=== PATIENT | female | born 1945 | race Caucasian/White ===

== ENCOUNTER 2017-10-28 00:08 | Outpatient (CLI) | payer MEDICARE, SELFPAY ==
--- NOTE | 2017-10-28 09:25 | DI.REPORT_ITS ---
SYMPTOM/DIAGNOSIS: RT KNEE INJURY S89.91XD, CHRONIC KNEE PAIN M25.561, G89.29 MRI RIGHT KNEE: Routine noncontrast examination Comparison 10/03/17. The anterior cruciate and posterior cruciate ligaments are intact. The medial collateral ligament is intact. The lateral collateral ligament shows mild increased signal internally and some edema seen surrounding the ligament. This may represent a sprain. No evidence of a maura tear is appreciated. The medial and lateral retinaculum are intact. There is increased signal seen in the popliteus tendon suspicious for a partial tear or tendinosis. The extensor mechanism is intact. No definite meniscal tear is appreciated. There is loss of the articular cartilage in the medial femoral tibial joint space and patella femoral joint particularly laterally. There are osteophytes present in all three joint compartments. There is osteochondral defect seen in the medial femoral condyle and osteochondral fragment is seen within the defect. There is marked edema seen in the marrow in the medial femoral condyle. There is marrow edema seen in both medial and lateral tibial plateau. There is a joint effusion present. There is edema seen in the soft tissues about the knee. IMPRESSION: 1. Osteochondral injury involving the medial femoral condyle. 2. Partial tear or tendinosis involving the popliteus tendon 3. Lateral collateral ligament sprain 4. Osteoarthritis of the right knee, small joint effusion, soft tissue edema.
== END 2017-10-28 00:09 ==
PROVIDERS: PCP Internal Medicine; Visit Provider Student in an Organized Health Care Education/Training Program
DX: M25.561 Pain in right knee (principal); M95.8 Other specified acquired deformities of musculoskeletal system; M76.891 Other specified enthesopathies of right lower limb, excluding foot; S83.421D Sprain of lateral collateral ligament of right knee, subsequent encounter; M17.11 Unilateral primary osteoarthritis, right knee; M25.461 Effusion, right knee; S89.91XD Unspecified injury of right lower leg, subsequent encounter
CPT/HCPCS: 73721

== ENCOUNTER 2017-11-07 01:40 | Outpatient (CLI) | payer MEDICARE, SELFPAY ==
--- NOTE | 2017-11-07 13:00 | DI.RPTCT_ITS ---
SYMPTOMS/DIAGNOSIS: PULMONARY NODULE LLL, R91.[address]: Comparison is made with PE CT dated . That exam showed a 5 mm nodule in the left lower lobe. A noncontrast exam was performed. There has been no change in size or appearance of the previously noted 5 mm circumscribed nodule at the left lower lung base. No additional nodules are identified. There are no acute infiltrates or effusions. CT follow up in one year could be considered.
== END 2017-11-07 01:41 ==
PROVIDERS: PCP Internal Medicine; Visit Provider Internal Medicine
DX: R91.1 Solitary pulmonary nodule (principal)
CPT/HCPCS: 71250

== ENCOUNTER 2017-11-10 01:09 | Outpatient (CLI) | payer MEDICARE, SELFPAY ==
--- NOTE | 2017-11-10 13:32 | DI.REPORT_ITS ---
SYMPTOMS/DIAGNOSIS: LOCALIZED SWELLING LT LOWER LEG, R22.42 DUPLEX VENOUS ULTRASOUND LEFT LOWER EXTREMITY: Duplex evaluation of the deep venous system of the left lower extremity was performed according to the usual protocol. There is no evidence of deep venous thrombosis. The patient reportedly has a questionable palpable area of abnormality in the left medial lower leg. No mass identified at this site. No fluid collection seen.
== END 2017-11-10 01:10 ==
PROVIDERS: PCP Internal Medicine; Visit Provider Nurse Practitioner
DX: R60.0 Localized edema (principal); R22.42 Localized swelling, mass and lump, left lower limb
CPT/HCPCS: 93971

== ENCOUNTER 2017-11-23 12:00 | Outpatient (RCR) | payer MEDICARE, SELFPAY ==
--- NOTE | 2017-11-16 13:00 | IE_ITS ---
Date: November 16, 2017 Referring: Saranya Dias NP M.D. Diagnosis: P.T. Diagnosis: SUBJECTIVE: History of Present Illness: Gianna complains of L sided neck pain. This has been slowly progressing over the past 6 months with more exacerbated symptoms over the past 2 weeks. About 2 weeks ago she was driving and quickly turned her head to the L and felt a sharp electric pain all the way to the base of her L OA joint. She does note that she has been holding herself quite stiff as of recent, she is walking very guarded due to extensive L knee OA. She has an upcoming TKR in December with Dr. Pastor. She does recall neck pain in 2014 which was successfully treated with physical therapy in [place], [place] after a fall hitting the L side of her head in 2012. Pain Ratin/10, exacerbates to a 4/10 with daily activities, 9/10 with quick upward rotation Pain Location: L side of her OA joint, into the L upper trap. Prior Level of Function: WNL Current Level of Function: Difficulty driving, particularly with rotating her head L to see if someone is coming or backing up to the L,. Always has low grade discomfort with all other activities, compared to premorbid level of function which was without discomfort. Previous Treatment: None for most recent exacerbation. Social: She is retired. She has been living in [place] for 4 years after living in [place], [place] and [place], [place]. She has 3 grown children that live in all different areas of the nation. Comorbidities: Arthritis, particularly R knee with upcoming TKA, cardiac arrhythmias only with too much caffeine intake and osteoporosis, varicose veins , stripping of both legs in 1978. Falls in the last year: __x__ No ____Yes - How many? ____ - (if over 2, balance SM needs to be completed) Reported hospitalizations in the last year - __x__ No ____ Yes - Dates of admission/reason: Medications: Fosamax, multi vitamin, fish oil, Aleve for pain, Epi Pen for Bee venom, currently on Amoxicillin for a tooth abscess. Quality of Life: ____ Excellent __X__ Good ____ Fair ____ Poor Standardized Measures: NDI score: __22% disability OBJECTIVE: Posture: Is actually quite good for a woman her age. She is very tall, but demonstrates no forward head or thoracic kyphosis. Does have a questionable underlying scoliotic curvature. She has a mild L shift of her thoracic spine compared to her central lumbar spine, but no obvious curvature. This allows for mild protrusion of R shoulder blade compared to the L, but symmetrical placement on the thorax in regards to rotation. Observation: (behavior, atrophy, skin color, etc.) Cautious with movements of the neck, but otherwise fairly unremarkable. She does have some visual tension in the L upper trap compared to the R. Gait: WNL, toe and heel walk WNL. Palpation: Tension appreciated throughout the entire length of the L upper trap and L OA joint compared to the R. Edema: None. ROM: Bilateral UE's are WNL and non-irritable. C-spine flexion/extension are both 45 degrees and non-irritable. L rotation 30 degrees, R rotation 45 degrees. R sidebend 20 degrees, L sidebend 30 degrees all reproducing some L upper trap discomfort and mild discomfort through the L OA joint. Joint Accessory Motion: Moderately limited with all articular sidegliding through the C-spine. With L sideglide this produces some discomfort from C3-C5 and down into L upper trap. No UE paresthesias. PAs are moderately limited as well, but without discomfort. OA joint surprisingly moves very well for a woman her age with full flexion to about 10 degrees. Excellent retraction mobility without pain. Strength: Grossly 5/5 throughout bilateral UE's without pain provocation. C- spine isometrics are also 5/5 all planes without pain, and good cervical stability with scap, thoracic stability throughout. Neuro: UE screen WNL. Balance: Single leg stance for 10 seconds bilaterally, narrow base of support, eyes closed WNL. Special Tests: (-) Spurling's, (-) vertebral artery testing. Treatment: IE: [id number] Patient Education: In proper posture without functional movement patterns, particularly when stationary cycling or long distance walking maintain deep neck flexion activation standing tall with helium balloon idea. KX applied to all codes ____ Yes __X__ No Manual therapy: (63756r5). To the c-spine complete manual cervical traction and unilateral traction, cervical facet up gliding with grade 4++, complete articular sidegliding for all cervical segments of a grade 4++ with focus on L sideglide to influence or inhibit the L upper trap. Posterior and lateral telescoping L upper trap, deep trigger point release and down regulation efforts as well as thoracic and cervical spine release, with OA release, and cross friction efforts; and general fascial mobilization throughout the base of the skull. Direct treatment time: 60 mins Total treatment time: 60 mins ASSESSMENT: Patient is a 72-year-old female, referred for PT services with the diagnosis of neck pain. Patient presents with clinical signs and symptoms consistent with L upper trap soft tissue dysfunction, occipital soft tissue dysfunction likely related to some underlying c-spine degeneration with history of trauma, as demonstrated by the following impairment level findings: limited c-spine mobility, accessory mobility limitations, soft tissue dysfunction. Impairments are contributing to the following functional limitations:Pain with driving, rotating her head, low grade discomfort with all activities which was non-existent prior to start of condition. Patient is assessed as: __X__ Low 76557 ____ Moderate 51738 ____ High 86126 complexity, based on the following: History: (list): X See comorbidities and social history. Examination: (list): X See above for functional limitations and impairments. Presentation: X Stable . Evolving Unstable Decision-Making: X Low complexity Moderate complexity High complexity % Disability based on 22% __X__ Patient requires skilled PT intervention to remediate the above functional limitations to return to: __X__ Premorbid level of function __X__ Return to full functional mobility Prognosis: ____ Excellent __X__ Good ____ Fair ____ Poor G-Codes (fill in modifier after appropriate code): Patient's primary functional limitation is in the category of: __X__ Changing and maintaining body position: [id number] based on NDI Projected goal: __x__ Changing and maintaining body position: [id number] STG: __4__ weeks. 1: NDI decreased to a 20% disability. 2: Pain does not exceed a 3/10 with rotation of neck particularly with driving or backing up. 3: When at rest, 0/10 pain. LTG: __8__ weeks. 1: Return to premorbid level of function. 2: Return to full, pain-free, functional mobility. 3: Independent with self-maintenance program. PLAN: Patient to be seen 2 x per week, for 8 weeks, adjusting frequency of visits per patient symptoms and response to treatment. Treatment to include: Manual therapy - [id number]: for thoracic and cervical articular mobilization , OA mobilization surrounding soft tissue manipulation. Neuromuscular re-education for deep neck flexor activation instability. Thank you for this referral. Please do not hesitate to contact me with any questions or concerns regarding this patient's plan of care. *Saranya, please sign this evaluation if you are in agreement with the above plan of care and return to PT cc: Saranya Dias NP
--- NOTE | 2017-11-21 15:55 | PTTR_ITS ---
DATE: 11/21/17 SUBJECTIVE: Pt notes feeling slightly better since last session. She finds herself holding her neck very stiff to be cautious and not have pain when turning to the left. OBJECTIVE: Manual therapy: (28604x1). In supine apply unloading of her cervical spine via light traction. PROM into side bend and rotation bilaterally. Apply manual upper trap and scalene stretching bilaterally. She receives upper cervical retraction stretching. Perform extensive soft tissue mobilization techniques to the left upper trap, scalenes, cervical paraspinals and suboccipitals. Trigger point release to upper cervical paraspinals and into the muscle belly of the upper trap. Perform OA release. Ends with moist hot pack x 10 minutes to the cervical spine. Post treatment pt notes improvements in her symptoms. Direct treatment time: 30 minutes Total treatment time: 40 minutes Randi Schreiber PTA
--- NOTE | 2017-11-23 13:29 | PTTR_ITS ---
DATE: 11/23/17 SUBJECTIVE: Has experienced pain relief with treatment so far, with dissipating L neck pain. Realized today that she always carries her heavy pure over her R upper trap, which may be contributing. OBJECTIVE: KX applied to all codes N/A Manual therapy: ([id number]). Unload C-Spine via manual traction, facet upgliding. OA flexion oscillations, with good motion appreciated. OA release C-Spine rotation mobilizations, B, achieving 70* L, 50* R with resulting R Upper trap pain bilaterally. MET;s utilized throughout. UPA all cervical segments, grade 4-- STM B cervical and thoracic paraspinals, focus of L upper trap, OA region, and nucal line fascial mobilization. TPR L upper trap. Cervical articular sidelying, grade 4--, mid cervical flexion stretching iwth end range rotation. Patient Education: Instructed in self tennis ball OA release, L upper trap stretching. Direct treatment time: 30 minutes Total treatment time: 30 minutes
== END 2017-11-25 23:59 | disposition home or self-care (01) ==
LOC: PT 12:00
PROVIDERS: PCP Internal Medicine; Referring Provider Nurse Practitioner; Visit Provider Nurse Practitioner
DX: M54.2 Cervicalgia (principal); M79.89 Other specified soft tissue disorders; M47.812 Spondylosis without myelopathy or radiculopathy, cervical region; M53.3 Sacrococcygeal disorders, not elsewhere classified; M17.11 Unilateral primary osteoarthritis, right knee
CPT/HCPCS: 97140; 97161

== ENCOUNTER 2017-12-02 15:21 | Outpatient (REF) | payer MEDICARE, SELFPAY | END 2017-12-02 15:41 | LOC: NCHCN 15:21 | PROVIDERS: PCP Internal Medicine; Visit Provider Nurse Practitioner | DX: M79.9 Soft tissue disorder, unspecified (principal) | CPT/HCPCS: 82565 ==

== ENCOUNTER 2017-12-07 02:49 | Outpatient (CLI) | payer MEDICARE, SELFPAY ==
[2017-12-07] MEDS: Gadoterate meglumine 20 ML VIAL 13 ML IVP (14:23)
--- NOTE | 2017-12-07 14:50 | DI.MRI_ITS ---
SYMPTOM/DIAGNOSIS: SOFT TISSUE MASS, M79.9, SWELLING, TENDERNESS LEFT LOWER LEG MRI: Pre and post contrast. A marker was placed over the area of concern. There is no evidence of an underlying mass or enhancing lesion. No focal fluid collection is seen to suggest an abscess. There is mild fatty atrophy of the medial head of the gastrocnemius muscle. IMPRESSION: No evidence of a soft tissue mass or focal fluid collection to suggest an abscess. Mild fatty atrophy of the medial head of the gastrocnemius muscle.
== END 2017-12-07 03:09 ==
PROVIDERS: PCP Internal Medicine; Visit Provider Internal Medicine
DX: R22.42 Localized swelling, mass and lump, left lower limb (principal); M79.89 Other specified soft tissue disorders
CPT/HCPCS: 73720

== ENCOUNTER 2018-01-02 09:23 | Outpatient (CLI) | payer MEDICARE, SELFPAY ==
--- NOTE | 2018-01-02 08:13 | DI.RAD_ITS ---
SYMPTOM/DIAGNOSIS: PRE TKA, EVALUATE [facility] AXIS LEG LENGTH EXAMINATION: Mild degenerative changes are seen at the hips bilaterally. In the knees, there are moderate degenerative changes seen in the right knee with medial compartment joint space narrowing and spurring. There is a declivity involving the medial femoral condyle which may represent an osteochondral defect. Mild nataly-articular spurring is seen in the lateral femoral tibial joint. In the left knee, there is mild nataly-articular spurring in both the medial and lateral femoral tibial joint space. The ankles appear intact. There are again seen soft tissue calcifications in the left suprapatellar region. This is unchanged compared to the examination from 08/11/17. The right lower extremity measures 96.3 cm. in length, the left lower extremity measures 95.6 cm. IMPRESSION: Osteoarthritis of the knees, right greater than left.
--- NOTE | 2018-01-02 20:24 | HPE_ITS ---
Documented by User: PATTIE Campo 01/02/18 20:24 Date of service: 01/02/18 Assessment and Plan (1) Osteoarthritis of right knee: Current visit: Yes Status: Chronic Plan: Right total knee replacement Details of surgery as well as risks, and pertinent anatomy were discussed with patient. All questions were answered. History of Present Illness Chief Complaint: Right knee pain Narrative: Patient states that she has been complaining of right knee pain for multiple years now, however she had an exasperation of this knee pain a few months ago when she had an injury. She states that while she was walking her dog she was pulled in the direction, resulting in a twisting injury to her right knee. Since then she has been having pain especially with walking up and down stairs, and long periods of weightbearing. She also states she has issues squatting and kneeling. X-rays of the office did show some arthritic changes in the medial compartment, as well as patellofemoral compartment of her knee. At the same visit she was aspirated of joint fluid, and injected with Marcaine and steroids. This injection did not help her symptoms. She later went for an MRI which showed some bony edema both the medial and lateral compartments, as well as cartilage degeneration in all 3 compartments of her knee. At this point since conservative treatment has failed, she is ready to move forward with a total knee replacement. Pertinent Surgical Information Patient denies history of hypertension, CVA, HI, angina, asthma, COPD, renal or liver disorders, hepatitis, bleeding disorders, diabetes, immune or thyroid disorders. No complications from anesthesia. Review of Systems Review of Systems All systems reviewed & are unremarkable except as noted in HPI and below Constitutional Denies fever(s) ENT Denies dizziness and Denies sore throat Cardiovascular Denies chest pain, Denies palpitations and Denies dyspnea Respiratory Denies dyspnea Gastrointestinal Denies abdominal pain, Denies melena, Denies hematochezia, Denies diarrhea, Denies nausea and Denies vomiting Genitourinary Denies hematuria and Denies dysuria Neurologic Denies dizziness Endocrine Denies palpitations PFSH Medical History Anxiety Dysphagia Neck pain Neuropathy Osteoarthritis Osteoporosis Piriformis syndrome Piriformis syndrome of left side Social History Smoking/Tobacco Use Status: Never alcohol intake: current alcohol intake frequency: 0-2 drinks per day Alcohol type: wine details: drinks one glass of wine nightly Surgical History H/O vein stripping (Chronic) History of tonsillectomy and adenoidectomy (Chronic) Meds Home Medications Medication Instructions Recorded Confirmed Type calcium carbonate-vitamin D3 2 tab PO DAILY 03/26/14 01/02/18 History multivitamin [Multi-Day] 1 tab PO Q2D 03/26/14 01/02/18 History omega-3 fatty acids [Fish Oil] 1,200 mg PO DAILY 03/26/14 01/02/18 History ibuprofen 400 mg PO PRN PRN 05/21/14 01/02/18 History alendronate 70 mg PO Q7D@0700 02/03/17 01/02/18 History vitamin B complex [B Complex] 1 ea PO EOD 08/11/17 01/02/18 History aspirin 81 mg PO DAILY tab-cap 08/24/17 01/02/18 History melatonin 4.5 mg PO HS 08/24/17 01/02/18 History epinephrine [Epipen 2-Derrick] 0.3 mg IM ONCE NS 10/25/17 01/02/18 History Allergies Allergy/AdvReac Type Severity Reaction Status Date / Time venom-honey bee Allergy Severe Anaphylaxsi Unverified 01/02/18 09:03 [bee venom (honey bee)] s fluoxetine [From Prozac] AdvReac Intermediate paranoid Verified 01/02/18 10:25 hormone replacement therapy AdvReac Intermediate paranoid Uncoded 01/02/18 10:25 Exam [facility] Head: normocephalic and atraumatic General nose exam: no nasal discharge Throat: uvula midline and no uvular edema Other: soft palate rises symmetrically, no erythema Eyes Conjunctivae: conjunctivae normal Sclera: sclerae normal Pupils: PERRL Resp Effort & Inspection: normal respiratory effort Auscultation: clear to auscultation bilaterally and no wheezes Cardio Rate: regular rate Rhythm: regular rhythm Heart Sounds: S1 normal, S2 normal and no murmurs
== END 2018-01-02 09:43 ==
PROVIDERS: PCP Internal Medicine; Visit Provider Student in an Organized Health Care Education/Training Program
DX: M17.0 Bilateral primary osteoarthritis of knee (principal); M16.0 Bilateral primary osteoarthritis of hip
CPT/HCPCS: 36415; 80048; 85027; NC; 77073

== ENCOUNTER 2018-01-02 10:02 | Outpatient (CLI) | payer MEDICARE, SELFPAY ==
[2018-01-02 12:23] LABS: HCT 43.6 % (36.0-46.0); HGB 14.6 g/dL (12.0-15.5); Mean Corp. HGB Concentration 33.5 g/dL (32.0-36.0); Mean Corpuscular Hemoglobin 31.6 pg (27.0-33.0); Mean Corpuscular Volume 94.4 fL (80-95); Mean Platelet Volume 9.4 fL (8.0-11.0); Platelet Count 273 x1000/uL (130-400); RBC 4.62 m/cumm (4.00-5.20); RBC Distribution Width 13.3 % (11.7-14.6); White Blood Cell Count 4.65 k/cumm (4.4-10.8)
[2018-01-02 13:17] LABS: Anion Gap 7.9 mmol/L (3-11); BUN 14 mg/dL (7-18); CO2 29.1 mmol/L (21.0-32.0); CREATININE 0.55 mg/dL (0.55-1.02); Calcium 9.1 mg/dL (8.5-10.1); Chloride 104 mmol/L (98-107); Glucose 92 mg/dL (70-100); Potassium 4.1 mmol/L (3.5-5.1); Sodium 141 mmol/L (136-145)
== END 2018-01-02 10:22 ==
PROVIDERS: PCP Internal Medicine; Visit Provider Student in an Organized Health Care Education/Training Program
DX: M25.561 Pain in right knee (principal); M17.11 Unilateral primary osteoarthritis, right knee; Z01.818 Encounter for other preprocedural examination
CPT/HCPCS: 36415; 80048; 85027

== ENCOUNTER 2018-01-10 05:56 | Inpatient (IN) | payer MEDICARE, SELFPAY ==
--- NOTE | 2018-01-02 15:26 | PDOC.CMPRO ---
- If Service Date Differs Date of service: 01/02/18 Time of Service: 15:26 Care Management Progress Note CM met with Gianna preoperative in [facility]. Her planned surgery is 01/10/18 for right total knee. Gianna lives alone in [place], [place]. She has five stairs to get into her home. Her daughter is coming to [place] to be with her and her family and will support her for two weeks when she returns home from the hospital. CM completed advance directives with patient and faxed them to registry and primary care provider. Gianna was provided with 4 copies. Gianna has a FWW at home, shower bench, rails and commode. She would like home health PT and OT at time of discharge. She will be transported home via private car with her daughter at time of discharge.
--- NOTE | 2018-01-02 16:12 | CMPROGNOTE_ITS ---
- If Service Date Differs Date of service: 01/02/18 Time of Service: 15:26 Care Management Progress Note CM met with Gianna preoperative in [facility]. Her planned surgery is 01/10/18 for right total knee. Gianna lives alone in [place], [place]. She has five stairs to get into her home. Her daughter is coming to [place] to be with her and her family and will support her for two weeks when she returns home from the hospital. CM completed advance directives with patient and faxed them to registry and primary care provider. Gianna was provided with 4 copies. Gianna has a FWW at home, shower bench, rails and commode. She would like home health PT and OT at time of discharge. She will be transported home via private car with her daughter at time of discharge.
[2018-01-10] VITALS (18 sets, daily range): BP systolic 104–139; BP diastolic 59–83; PULSE 52–73; RESP 12–24; TEMP 34.1–36.6; O2SAT 92–100
[2018-01-10] MEDS: Acetaminophen 500 MG TAB 1000 MG PO ×3 (06:33→20:15)
[2018-01-10] MEDS: Celecoxib 200 MG CAP 400 MG PO (06:33)
[2018-01-10] MEDS: Gabapentin 300 MG CAP PO ×2 (06:34→21:05)
[2018-01-10] MEDS: oxyCODONE-CR 10 MG TABCR PO (06:35)
[2018-01-10] MEDS: Lactated Ringers 1,000 ML 80 ML IV ×3 (06:36→17:16)
[2018-01-10] MEDS: Bupivacaine 0.25% Pres-Free 10 ML VIAL (07:10)
[2018-01-10] MEDS: Bupivacaine LIPOSOME/PF 133 MG/10 ML VIAL IJ ×2 (07:10→08:55)
[2018-01-10] MEDS: Ketorolac 30 MG/ML VIAL (08:32)
[2018-01-10] MEDS: Bupivacaine 0.25% Pres-Free 30 ML VIAL (08:55)
[2018-01-10] MEDS: Normal Saline 50 ML (08:55)
[2018-01-10] MEDS: Ondansetron 4 MG/2 ML VIAL IVP (11:16)
[2018-01-10] MEDS: Pantoprazole 40 MG TABCR PO (11:19)
[2018-01-10] MEDS: Normal Saline Flush 10 ML SYR IV (11:30)
--- NOTE | 2018-01-10 14:30 | PT.INIE ---
Date of service: 01/10/18 Time of Service: 14:27 PT Notes Inpatient Physical Therapy Evaluation Date: 01/10/18 Referring Doctor: Bassem Pastor PT Orders: PT CONSULT: s/ R TKA Precautions: WBAT R LE Patient Profile/Admitting Diagnosis: Pt is a 72yr old female s/p right total knee arthroplasty by Dr. Davis 01/10/18 PMHX: osteoarthritis right knee, anxiety, neck pain, neuropathy, osteoporosis, piriformis syndrome left, dysphagia, vein stripping, tonsillectomy, adenoidectomy Social History/Home Situation: Lives alone in a house, 5 steps with railing to enter, one level inside. Baseline mobility independent gait with no device, independent with ADLS. Daughter and son will be staying with patient two weeks after discharge so she will have support in home, pt would like home PT/OT follow up at discharge as well. Equipment Owned/DME: FWW, axillary crutches, walking sticks, commode, shower chair Subjective: Pt lying in bed, alert and agreeable to PT consult, states she would like to get up. Objective: General Observation: IV L UE, singh catheter, mark wrap R knee, cryocuff right knee Mental Status: A& O x3 Pain: no c/o pain Bed Mobility/Transfers: Supine-sit: HOB 30 degrees, independent Sit-stand: SBA with FWW Stand-sit: SBA Sit-supine: HOB flat, independent Gait: SBA with FWW 40ftx2 WBAT R LE, slow step through gait pattern, instruction provided for step sequence. Pt returned to bed after session completed. Therex: Pt has issued home exercise program, initiated ankle pumps x 20 reps this session. Balance: Static Sitting: normal Dynamic Sitting: normal Static Standing: fair Dynamic Standing: fair Special Tests: Mobility Limitations Standardized Measure [facility] AM-PAC 6 clicks Basic Mobility Inpatient Short Form: Raw Score: 18 Standardized Score: 43.63 CMS Score: 46.58% CMS Modifier: CK Informed Consent/Education: Patient instructed in purpose of PT consult and plan of care. Assessment: Pt is a 72yr old female s/p right total knee arthroplasty by Dr. Davis 01/10/18 in setting of osteoarthritis right knee, anxiety, neck pain, neuropathy, osteoporosis, piriformis syndrome left. Patient presents with clinical signs and symptoms consistent with post op R TKA, as demonstrated by the following impairment level findings: weakness right quad, decreased ROM right knee, decreased strength with bed transfers, standing transfers and gait requiring FWW for gait stability to prevent falls post operatively, decreased static and dynamic standing balance. Pt was able to initiate therex, transfers and gait with FWW this afternoon, will continue progression of post operative rehab in am. Nursing can mobilize to chair and bathroom this evening with FWW support. Impairments are contributing to the following functional limitations: AMPAC score CMS Score: 46.58% Patient is assessed as Moderate 56254 complexity based on the following: History: see above Examination: see above Presentation: evolving Decision Making: AMPAC score CMS Score: 46.58% Goals: Goals X1 week 1. Supine-Sit : independent 2. Sit-Supine : independent 3. Sit-Stand : independent with FWW 4. Stand-Sit : independent 5. Bed-Chair : supervision with FWW 6. Chair-Bed : supervision with FWW 7. Gait : supervision with FWW 200ft WBAT R LE 8. Stairs : up/down 5 steps with railing WBAT R LE, SBA 9. Independent with home exercise program for TKA Plan of Care/Treatment Plan: 1-2x/day, 7 days/week x 1 week. Plan of care has been reviewed with the [employer] providing the service under Physical Therapy direction. Initiate Physical Therapy intervention for strengthening, bed mobility, transfers, gait, stairs, balance training, use of assistive device. DISCHARGE RECOMMENDATIONS: Home with family support, pt would like home PT/OT. She has all DME TREATMENT CODE/TIME: 26min IE 1426 G Codes in the area mobility of walking and moving around: current status [id number] CK projected status GP [id number]. Discharge status (if discharging) GP G8980 CK AMPAC score CMS Score: 46.58% Carmen Church PT
--- NOTE | 2018-01-10 14:44 | IN_ITS ---
Date of service: 01/10/18 Time of Service: 14:27 PT Notes Inpatient Physical Therapy Evaluation Date: 01/10/18 Referring Doctor: Bassem Pastor PT Orders: PT CONSULT: s/ R TKA Precautions: WBAT R LE Patient Profile/Admitting Diagnosis: Pt is a 72yr old female s/p right total knee arthroplasty by Dr. Davis 01/10/18 PMHX: osteoarthritis right knee, anxiety, neck pain, neuropathy, osteoporosis, piriformis syndrome left, dysphagia, vein stripping, tonsillectomy, adenoidectomy Social History/Home Situation: Lives alone in a house, 5 steps with railing to enter, one level inside. Baseline mobility independent gait with no device, independent with ADLS. Daughter and son will be staying with patient two weeks after discharge so she will have support in home, pt would like home PT/OT follow up at discharge as well. Equipment Owned/DME: FWW, axillary crutches, walking sticks, commode, shower chair Subjective: Pt lying in bed, alert and agreeable to PT consult, states she would like to get up. Objective: General Observation: IV L UE, singh catheter, mark wrap R knee, cryocuff right knee Mental Status: A& O x3 Pain: no c/o pain Bed Mobility/Transfers: Supine-sit: HOB 30 degrees, independent Sit-stand: SBA with FWW Stand-sit: SBA Sit-supine: HOB flat, independent Gait: SBA with FWW 40ftx2 WBAT R LE, slow step through gait pattern, instruction provided for step sequence. Pt returned to bed after session completed. Therex: Pt has issued home exercise program, initiated ankle pumps x 20 reps this session. Balance: Static Sitting: normal Dynamic Sitting: normal Static Standing: fair Dynamic Standing: fair Special Tests: Mobility Limitations Standardized Measure [facility] AM-PAC 6 clicks Basic Mobility Inpatient Short Form: Raw Score: 18 Standardized Score: 43.63 CMS Score: 46.58% CMS Modifier: CK Informed Consent/Education: Patient instructed in purpose of PT consult and plan of care. Assessment: Pt is a 72yr old female s/p right total knee arthroplasty by Dr. Davis 01/10/18 in setting of osteoarthritis right knee, anxiety, neck pain, neuropathy, osteoporosis, piriformis syndrome left. Patient presents with clinical signs and symptoms consistent with post op R TKA , as demonstrated by the following impairment level findings: weakness right quad, decreased ROM right knee, decreased strength with bed transfers, standing transfers and gait requiring FWW for gait stability to prevent falls post operatively, decreased static and dynamic standing balance. Pt was able to initiate therex, transfers and gait with FWW this afternoon, will continue progression of post operative rehab in am. Nursing can mobilize to chair and bathroom this evening with FWW support. Impairments are contributing to the following functional limitations: AMPAC score CMS Score: 46.58% Patient is assessed as Moderate [id number] complexity based on the following: History: see above Examination: see above Presentation: evolving Decision Making: AMPAC score CMS Score: 46.58% Goals: Goals X1 week 1. Supine-Sit : independent 2. Sit-Supine : independent 3. Sit-Stand : independent with FWW 4. Stand-Sit : independent 5. Bed-Chair : supervision with FWW 6. Chair-Bed : supervision with FWW 7. Gait : supervision with FWW 200ft WBAT R LE 8. Stairs : up/down 5 steps with railing WBAT R LE, SBA 9. Independent with home exercise program for TKA Plan of Care/Treatment Plan: 1-2x/day, 7 days/week x 1 week. Plan of care has been reviewed with the LABORATORY VETERINARIAN providing the service under Physical Therapy direction. Initiate Physical Therapy intervention for strengthening, bed mobility, transfers, gait, stairs, balance training, use of assistive device. DISCHARGE RECOMMENDATIONS: Home with family support, pt would like home PT/OT. She has all DME TREATMENT CODE/TIME: 26min IE 1426 G Codes in the area mobility of walking and moving around: current status [id number] CK projected status GP [id number]. Discharge status (if discharging) GP [id number] CK AMPAC score CMS Score: 46.58% Carmen Church PT
[2018-01-10] MEDS: traMADol 50 MG TAB PO (15:46)
[2018-01-10] MEDS: oxyCODONE 5 MG TAB PO ×2 (17:16→20:15)
[2018-01-10] MEDS: Celecoxib 200 MG CAP PO (20:08)
[2018-01-10] MEDS: Aspirin E.C. 81 MG TABEC PO (20:08)
[2018-01-10] MEDS: Melatonin 3 MG TAB 4.5 MG PO (21:05)
[2018-01-11] VITALS (12 sets, daily range): BP systolic 93–122; BP diastolic 46–79; PULSE 53–62; RESP 12–18; TEMP 35.7–36.8; O2SAT 96–100
[2018-01-11] MEDS: traMADol 50 MG TAB PO (04:44)
[2018-01-11] MEDS: Lactated Ringers 1,000 ML 80 ML IV (06:38)
[2018-01-11] MEDS: Pantoprazole 40 MG TABCR PO (06:38)
--- NOTE | 2018-01-11 06:38 | ROE_ITS ---
Date of service: 01/10/18 Time of Service: 09:34 Operative Note DATE OF PROCEDURE: 01/10/18 PRE-OP DIAGNOSIS: Right Knee DJD POST-OP DIAGNOSIS: same PROCEDURE: Right Total Knee Replacement SURGEON: Bassem Pastor UTILITY BILL COLLECTION CLERK: Werner Valentine ANESTHESIA: regional and spinal ESTIMATED BLOOD LOSS: 150 PATHOLOGY: none sent TOURNIQUET TIME: 30 COMPLICATIONS: None Patient was transported to: PACU Patient's condition: stable Implants: 1. Depuy Attune Posterior Stabilized Femoral Component, Size 5 2. Depuy Attune Fixed Platform Tibial Component, Size 4 3. Depuy Attune 5 x 6 mm fixed, Stabilized Poly 4. Depuy Attune Patellar Component, Size 35 mm Indications: I have seen Gianna in clinic for symptoms of RIGHT knee arthritis , confirmed with radiographic findings. She has exhausted nonoperative methods and was having significant limitations in daily function and desired better function and less pain. I discussed the technical details of a knee replacement. I explained the risks of the procedure to include, but not limited to, bleeding, infection, pain, stiffness, fracture, damage to nerves and vessels, damage to muscles and tendons, loosening, need for repeat procedure , blood clot and cardiopulmonary demise. Despite these risks, Gianna elected to proceed. Findings: There was significant signs of arthritis throughout the knee. There is an area of osteonecrosis of the medial femur with obvious structural deformity. Osteophytes and chondral malacia are present in all 3 compartments. Procedure Description: Gianna was greeted in the preoperative holding area where the correct side was identified and marked. The consent was reviewed with the patient and signed. The history and physical was updated. All questions were answered. Preoperative mediacations were administered: Acetaminophen 1000mg, Celebrex 400mg, Gabapentin 300mg, and Oxycontin 10mg. An adductor canal block was then administered by the anesthesia team in the PACU. She was taken back to the operating room. A spinal anesthestic was then administered. The patient was placed into the supine position on the operating room table. A nonsterile tourniquet was placed high onto the leg but only used for cementing. Posts were placed for positioning during the procedure. All bony prominences were well padded. Prophylactic antibiotics in the form of cefazolin were administered. 1g of Tranxemic Acid was given intravenously within 30 minutes of incision. The right leg was then prepped with Chloraprep and draped in a standard fashion with impervious stockinette and extremity drape with Iodine impregnated skin protection. A timeout to confirm correct identity, side and site, procedure, allergies, anesthesia, and medical concerns was performed. With the knee in some flexion, a midline incision was made overlying the knee. Full thickness skin flaps were raised once the extensor mechanism was encountered. These were raised medially and laterally. Any bleeding was controlled with electrocautery. Once the extensor mechanism was fully exposed, a medial parapatellar arthrotomy was performed in a flexed position. All bleeding from the arthrotomy and the geniculate arteries was coagulated. A medial subperiosteal peel was performed with electrocautery to the midcoronal plane. The fat pad was removed while keeping the patellar tendon protected. The anterior distal femur synovium was removed for later visualization. The ACL and PCL were resected and the anterior horn of the lateral meniscus was transected. The knee was then flexed with the patella everted. Large osteophytes from the patella were removed to allow exposure. Using a step drill, and based on preoperative templating, the femoral canal was entered. This was done with a step drill without any difficulty. The intramedullary distal femoral cut guide was inserted, set to a 5 degree valgus cut and 9mm cut thickness. The distal femoral cut guide was then held in position and pinned. With the soft tissues protected, the distal cut was performed. This was passed over a few times to ensure a planar cut. I then turned attention to the tibia. The extramedullary guide was placed onto the leg. The distal aspect was slid medial to adjust for position of center of ankle and stay in line with shaft of the tibia. Approximately 3-5 degrees of posterior slope was kept in the proximal cutting guide. The center of the guide was aligned with the PCL. The stylus was used to assess cut thickness. The medial side, most involved side, was set for a 4mm cut. This was then held in position and pinned into place with 2 additional pins and a cross pin for stability. The medial and lateral collateral ligaments were protected and the cut was performed. With this completed, it was assessed and noted to be of appropriate dimensions. The guide was removed. A spacer block was inserted and the knee was brought into extension. The 6mm spacer block provided full extension, without hyperextension and with stability of both the medial and lateral collateral ligaments was assessed. The pins from the femur and the tibia were then removed. The distal femur was then sized. The anterior stylus was placed onto the lateral ridge of the anterior femur. This indicated a size 5 femur. The external rotation of the guide was adjusted to 3 degrees to match the epicondylar axis, perpendicular to [place]?s line. The 4-in-1 cutting guide was the placed. The posterior medial femur cut was evaluated and appeared of good thickness. The spacer block was inserted underneath the cutting guide and stability was confirmed in 90 degrees of flexion. An nciole wing was used to confirm appropriate position of the anterior cut to avoid notching. This cutting guide was ensured to be flush on the cut surface and then pinned into place with headed pins. While protecting the soft tissues, quad tendon, and collateral ligaments, the anterior and posterior cuts were performed with a saw. The central two pins were removed and the posterior and anterior chamfers were cut next. The notch-cutting guide was placed. This was pinned to lateralize the femoral component as much as possible while keeping it flush on the cut surface. This was then pinned into position. A reciprocating saw was used to make the notch cut. A rasp smoothed the cut surfaces. A trial posterior stabilized femoral component was then inserted, impacted down to the cut surfaces, and the lug holes were drilled. A provisional trial tibial component was placed and the knee was brought through range of motion. There was noted to be excellent extension and flexion. There was no significant instability. The patella was tracking without thumbs. The tibial cut surface was fully exposed. The medial and lateral menisci were removed. The tibia was then sized as a 4. The tibia had been previously marked during trialing to correspond to the center of the tibial component to help with rotation. The trial was aligned to this werner, approximately rotated to the medial 1/3rd of the tibial tubercle. The trial was pinned into place. The tibia was prepared with a reamer and a keel punch. The knee was then brought into extension and the patella was measured as 25 mm. Using the patellar clamp and cut guide, this was resected to a flat surface with at least 13mm of thickness remaining. The size 35 mm patella fit the best. This was oriented and then clamped into position. The lugs were drilled. The trial components were removed. The final components, except for the polyethylene were opened on the back table. The periosteal and capsular tissues , especially posteriorly, around the knee were then systematically injected with a periarticular cocktail consisting of 50cc 0.25% Marcaine, 30mg Ketorolac , 20cc of Exparal and 50cc of injectable saline. The tourniquet was then inflated to 275mmHg. The knee was thoroughly irrigated with a pulse lavage and dried. On the back table, with the implants opened, the cement was mixed. 2 batches of antibiotic laden cement were prepared with vacuum assistance. After the cement was ready a small amount was placed on to the back side of the tibial component at the keel. A small amount was placed onto the posterior flange of the femur. Cement was manual pressurized and impregnated into the cut surface of the tibia. The tibial component was then inserted into the cut surface and impacted into position. Excess cement was removed and the component was reimpacted. Again, excess cement was removed and our attention was then turned to the femur. The femoral cut surface was once again dried and cement was manually impacted into the cut surface. The femoral component was lined with the lug holes and impacted. Excess cement was removed. It was ensured to be down against the cut surface. The trial polyethylene was then inserted and the leg was brought out into full extension for the duration of the cement curing process, approximately 15min. Cement was lastly manually impacted into the cut surface of the patella and the patellar button was clamped into position and held. During this process attention was turned to the gutters of the knee and for all interfaces for any excess cement. After the cement had finally cured, approximately 15min, the clamp was removed from the patella and the knee was taken through range of motion. A size 6mm polyethylene component provided the best range of motion and stability with less than 2mm gapping with medial and lateral stress and full extension without significant hyperextension. The patella was tracking with a no-thumbs technique. The trial poly was removed and once again the knee was checked for any loose, excess, or errant cement. The poly component was then inserted and impacted into position after cleaning and drying the tibial tray. The capsule was then reapproximated with a No. 1 Vicryl at multiple locations. The capsule was finally closed with a No. 2 Stratafix, barbed suture. The tourniquet was then released and the arthrotomy appeared watertight without significant bleeding. The second dosing of 1g TXA was started. Deep tissues were then reapproximated with 0 Vicryl and 2-0 Vicryl. The skin was closed with a running 3-0 Monocryl in a subcuticular fashion. This was reinforced with skin glue. A Mepilex silver dressing was applied along with a foot-to- thigh ELISABET wrap. A CryoCuff was applied. Gianna was transferred to the hospital bed without difficulty an suffering no apparent complication. Gianna has a good prognosis. Physical therapy will start today and without restrictions, weight-bearing as tolerated. Aspirin 81mg BID will be used for DVT prophylaxis.
[2018-01-11] MEDS: oxyCODONE 5 MG TAB PO ×2 (06:54→16:42)
--- NOTE | 2018-01-11 07:48 | PDOC.CMIN ---
- If Service Date Differs Date of service: 01/11/18 Time of Service: 07:48 Care Management Initial Assess REASON FOR HOSPITALIZATION:: Right Knee DJD. PAST MEDICAL HISTORY/PAST SURGICAL HISTORY:: Anxiety, dysphagia, neuropathy, osteoarthritis, osteoperosis, piriformis syndrome, piriformis syndrome of left side. Surgical hx: vein stripping, tonsillectomy/adenoidectomy. PREVIOUS FUNCTIONAL STATUS/SOCIAL/FAMILY SUPPORTS:: Gianna lives alone in her own home in [facility]. She has five stairs to get into her home. Her daughter and son will be staying with her at home following discharge to support her for two weeks. Gianna reports that she has good support from neighbors in regards to meal delivery following discharge, however she will be alone much of the time following her son and daughter's stay. She is independent with her ADLs and transportation. CURRENT FUNCTIONAL STATUS:: Gianna is sitting in her room finishing up breakfast when visits this morning. She is a [facility] overflow patient in the ICU. She is engaged in conversation, makes good eye contact, and is talkative. Gianna had her singh removed this morning and is due to void. She denies pain though reports that she is dizzy, likely due to the oxycodone recently administered. Gianna reports that she purchased her home in [place] from an older couple who had fit the house with railings throughout, and her bedroom and bathroom are on the first floor. Per PT, Gianna will benefit from home PT/OT which will be ordered at discharge. ADVANCE DIRECTIVES:: On file at [facility]. Has patient been provided with information about the portal?: Yes Did the patient sign up for the portal?: No (Interested. ) CODE STATUS:: Full Code INSURANCE COVERAGE / FINANCIAL ISSUES:: [facility], Medicare. CURRENT HOME/COMMUNITY SERVICES/EQUIPMENT:: Gianna has a FWW, shower bench, rails and commode. Pt requesting home health PT and OT at time of discharge. PRIMARY CARE PHYSICIAN:: Ky Fernandez. POTENTIAL DISCHARGE NEEDS:: Follow up appointment with MD. PATIENT/FAMILY EDUCATION NEEDS:: Discharge education, any limitations, and follow up plan of care. Ask Me Three discussion. ANTICIPATED BARRIERS TO DISCHARGE:: No anticipated barriers to discharge. TRANSPORTATION:: Gianna will transport via private vehicle with her daughterLisa. PLAN:: Gianna will discharge home when medically ready per MD. Anticipate patient will discharge with no services and follow up with plan of care. CM will continue to offer support to patient and care team regarding discharge planning and disposition.
--- NOTE | 2018-01-11 07:56 | INITIAL_ITS ---
- If Service Date Differs Date of service: 01/11/18 Time of Service: 07:48 Care Management Initial Assess REASON FOR HOSPITALIZATION:: Right Knee DJD. PAST MEDICAL HISTORY/PAST SURGICAL HISTORY:: Anxiety, dysphagia, neuropathy, osteoarthritis, osteoperosis, piriformis syndrome, piriformis syndrome of left side. Surgical hx: vein stripping, tonsillectomy/adenoidectomy. PREVIOUS FUNCTIONAL STATUS/SOCIAL/FAMILY SUPPORTS:: Gianna lives alone in her own home in [facility]. She has five stairs to get into her home. Her daughter and son will be staying with her at home following discharge to support her for two weeks. Gianna reports that she has good support from neighbors in regards to meal delivery following discharge, however she will be alone much of the time following her son and daughter's stay. She is independent with her ADLs and transportation. CURRENT FUNCTIONAL STATUS:: Gianna is sitting in her room finishing up breakfast when visits this morning. She is a MS overflow patient in the ICU. She is engaged in conversation, makes good eye contact, and is talkative. Gianna had her singh removed this morning and is due to void. She denies pain though reports that she is dizzy, likely due to the oxycodone recently administered. Gianna reports that she purchased her home in [place] from an older couple who had fit the house with railings throughout, and her bedroom and bathroom are on the first floor. Per PT, Gianna will benefit from home PT/ OT which will be ordered at discharge. ADVANCE DIRECTIVES:: On file at [facility]. Has patient been provided with information about the portal?: Yes Did the patient sign up for the portal?: No (Interested. ) CODE STATUS:: Full Code INSURANCE COVERAGE / FINANCIAL ISSUES:: [facility], Medicare. CURRENT HOME/COMMUNITY SERVICES/EQUIPMENT:: Gianna has a FWW, shower bench, rails and commode. Pt requesting home health PT and OT at time of discharge. PRIMARY CARE PHYSICIAN:: Ky Fernandez. POTENTIAL DISCHARGE NEEDS:: Follow up appointment with MD. PATIENT/FAMILY EDUCATION NEEDS:: Discharge education, any limitations, and follow up plan of care. Ask Me Three discussion. ANTICIPATED BARRIERS TO DISCHARGE:: No anticipated barriers to discharge. TRANSPORTATION:: Gianna will transport via private vehicle with her daughterLisa. PLAN:: Gianna will discharge home when medically ready per MD. Anticipate patient will discharge with no services and follow up with plan of care. CM will continue to offer support to patient and care team regarding discharge planning and disposition.
[2018-01-11] MEDS: Celecoxib 200 MG CAP PO ×2 (09:15→20:24)
[2018-01-11] MEDS: Calcium 600mg/Vit D 200U TAB 2 TAB PO (09:16)
[2018-01-11] MEDS: Acetaminophen 500 MG TAB 1000 MG PO ×3 (09:16→20:23)
[2018-01-11] MEDS: Omega-3 Fatty Acids 1000 MG CAP PO (09:16)
[2018-01-11] MEDS: Multivitamin TAB 1 TAB PO (09:16)
[2018-01-11] MEDS: Aspirin E.C. 81 MG TABEC PO ×2 (09:16→20:24)
[2018-01-11] MEDS: Vitamins B Comp w/C TAB 1 TAB PO (09:16)
--- NOTE | 2018-01-11 09:59 | PDOC.CMDIS ---
- If Service Date Differs Date of service: 01/11/18 Time of Service: 09:59 LACE Index Scoring Tool - Questions: Length of Stay (in days): 2 Acuity (Admit via E.D.?): No E.D. Visits: 1 - Answers: Total Score: 3 Risk of Readmission: Low Risk Care Management Discharge Reason for Hospitalization: Right Knee DJD. Discharge Plan: Gianna will discharge home when medically ready per MD. Anticipate patient will discharge with home PT/OT services and follow up with MD. Gianna will transport via private vehicle with her daughter, Lisa. Patient/Family Education Needs: Discharge education, any limitations, and follow up plan of care. Ask Me Three discussion. Services Needed at Discharge: Occupational Therapy, Physical Therapy
--- NOTE | 2018-01-11 10:58 | PT.INTREAT ---
Date of service: 01/11/18 Time of Service: 10:58 PT Notes Inpatient Physical Therapy Treatment Note Date: 01/11/18 PRECAUTIONS:WBAT on R SUBJECTIVE: Gianna states that she has not been feeling well this morning. She is somewhat concerned about going home this afternoon. OBJECTIVE: PAIN: No c/o pain BED MOBILITY/TRANSFERS Sit-supine: I with HOB flat Sit-stand: SBA Stand-sit: SBA GAIT Assistive Device: FWW Weight bearing: WBAT on R Assist: SBA Distance: 200' THEREX: Held ther ex due to not feeling well. STAIRS: Up/down 3x4 and 2x6 using 1 rail/SPC and a step-to pattern with CGA/SBA ASSESSMENT: Patient tolerated session with some c/o discomfort and c/o not feeling well. She was able to tolerate a progression in gait training, with several instances of R knee buckling. Patient would benefit from continued gait and transfer training, as well as strengthening. PLAN: Continue with PT's POC TREATMENT CODE/TIME: 25 minutes; TAx2
--- NOTE | 2018-01-11 11:08 | PTTR_ITS ---
Date of service: 01/11/18 Time of Service: 10:58 PT Notes Inpatient Physical Therapy Treatment Note Date: 01/11/18 PRECAUTIONS:WBAT on R SUBJECTIVE: Gianna states that she has not been feeling well this morning. She is somewhat concerned about going home this afternoon. OBJECTIVE: PAIN: No c/o pain BED MOBILITY/TRANSFERS Sit-supine: I with HOB flat Sit-stand: SBA Stand-sit: SBA GAIT Assistive Device: FWW Weight bearing: WBAT on R Assist: SBA Distance: 200' THEREX: Held ther ex due to not feeling well. STAIRS: Up/down 3x4 and 2x6 using 1 rail/SPC and a step-to pattern with CGA/ SBA ASSESSMENT: Patient tolerated session with some c/o discomfort and c/o not feeling well. She was able to tolerate a progression in gait training, with several instances of R knee buckling. Patient would benefit from continued gait and transfer training, as well as strengthening. PLAN: Continue with PT's POC TREATMENT CODE/TIME: 25 minutes; TAx2
--- NOTE | 2018-01-11 13:47 | DSE_ITS ---
Date of service: 01/11/18 Time of Service: 11:46 DS: Diagnosis Discharge Diagnosis (1) Osteoarthritis of right knee: Status: Chronic Discharge Plan Disposition Patient Disposition: HOME Condition: Good Discharge Details Reason For Visit: (R) KNEE DJD Admit Date/Time: 01/10/18 05:56 Admit Provider: Bassem Pastor Attending Provider: Bassem Pastor Primary Care Provider: Ky Fernandez Hospital Course Hospital Course: Patient was admitted to the medical/surgical floor following the procedure. It was tolerated well without any notable medical, surgical, or anesthetic complications. Mobilization began postoperatively. The singh catheter was removed and voiding spontaneously. Vitals were stable. Physical therapy worked with the patient and was cleared for discharge home. No acute medical issues. Home Meds and New Rx's Prescriptions: New polyethylene glycol 3350 17 gram Powder In Packet 17 g PO BID PRN PRN (Reason: Constipation) Qty: 0 RF: 0 hydrocodone-acetaminophen 5-325 mg Tablet 1 tab PO Q4H PRN PRNQty: 10 RF: 0 pantoprazole 40 mg Tablet,Delayed Release (Dr/Ec) 40 mg PO DAILY@0730 Qty: 30 RF: 0 docusate sodium [Colace] 100 mg Capsule 100 mg PO BID PRN PRN (Reason: Constipation) Qty: 0 RF: 0 gabapentin 300 mg Capsule 300 mg PO HS Qty: 7 RF: 0 celecoxib 200 mg capsule 200 mg PO BID PRN (Reason: pain) Qty: 60 RF: 1 acetaminophen 500 mg capsule 1,000 mg PO Q8H PRN (Reason: pain) Qty: 90 RF: 0 Continue vitamin B complex [B-Complex] 1 EACH tablet 1 ea PO EOD RF: 0 melatonin 3 MG tablet 4.5 mg PO HS RF: 0 epinephrine [EpiPen 2-Derrick] 0.3 MG/0.3 ML auto-injector 0.3 mg IM ONCE RF: 0 multivitamin [Multi-Day] 1 EACH tablet 1 tab PO Q2D RF: 0 calcium carbonate-vitamin D3 1 EACH tablet 2 tab PO DAILY RF: 0 omega-3 fatty acids [Fish Oil] 300 MG capsule 1,200 mg PO DAILY RF: 0 ibuprofen 200 MG tablet 400 mg PO PRN PRNRF: 0 alendronate 70 MG tablet 70 mg PO Q7D@0700 RF: 0 Changed aspirin 81 MG tablet,delayed release (/EC) 81 mg PO BID Qty: 80 RF: 0 Discontinued naproxen sodium [Aleve] 220 mg Capsule 2 tab PO PRN PRNRF: 0 Discharge Instructions Additional Instructions: Dr. Pastor?s Total Knee Discharge Instructions Activity: The most important activity is to walk. You should try to take short walks a few times a day. It is important that when resting you work on keeping the knee straight. Avoid putting a pillow behind the knee as this will encourage flexion. Work on range of motion exercises as provided by Physical Therapy. - Start outpatient physical therapy within 2 weeks. - You should wear the LIONEL hose on both legs for 4 weeks. Dressing: Keep the surgical dressing in place for at least one week. After the first week it may be removed and replace with light gauze and tape or nothing. It may get wet after 3 days but avoid soaking the dressing. If it gets wet, just lightly pat dry. Medications: - You should take Tylenol and anti-inflammatory (Celebrex) as your primary pain control medications - You have been prescribed a stronger pain medication (hydrocodone) for breakthrough pain, take as needed as prescribed. - You will be taking Aspirin 81mg twice a day for DVT prevention unless instructed otherwise. - If you have constipation you should take Colace or Miralax (both over-the- counter). It takes most people 3-4 days to have a bowel movement. - You will take pantoprazole to control stomach acid- Follow-up: 2 weeks 1. Encounter Date and Reason I certify that GIANNA DOBSON was seen by Bassem Pastor on 01/11/18 and that I had a [id number] encounter with this patient that meets the physician face to face encounter requirements. 2. Clinical Findings Supporting Skilled Need and Homebound Status I certify that home health services are medically necessary, include either intermittent group home and/or physical/speech therapy, and that this patient is homebound in that absences from the home require considerable and taxing effort and are infrequent or of short duration, or are attributable to the need to receive medical care. [X] (a) Attached documentation from encounter provides clinical findings supporting skilled need and homebound status (including what assistance patient requires to leave the home). The encounter with the patient was in whole, or in part, for the following medical condition, which is the primary reason for home health care: (R) KNEE DJD Longterm: Physical Therapy: Physical therapy is necessary to help restore normal ambulation. Gianna has significant weakness and range of motion deficits as well as ambulation abnormalities requiring physical therapy assistance. Speech Therapy: Homebound: Gianna is homebound due to her significant weakness and gait abnormalities following knee replacement. She is unable to leave her home unassisted. 3. Certification and Authentication I certify that I composed the above information based on my clinical judgement relating to this patient's medical condition and, if applicable, clinical findings communicated to me by the NPP or inpatient physician who performed the Home Health Referral. All further orders will be obtained through Dr. Bassem Pastor Activity:: Activity as Tolerated Equipment/Supplies:: Walker Diet:: As Tolerated Discharge Orders Discharge Orders: Discharge Order (Routine); Ordered 01/11/18 Ordered By: Bassem Pastor DS: Data Vitals/I&O Vitals and I&O: Vital Signs Temperature 36 C L 01/11/18 00:00 Temperature Source Tympanic 01/11/18 00:00 Pulse 58 L 01/11/18 11:46 Pulse Rhythm Regular 01/11/18 08:10 Respiratory Rate 12 01/11/18 00:00 Respiratory Effort Non-Labored 01/11/18 08:10 Respiratory Depth Normal 01/11/18 08:10 Respiratory Pattern Normal 01/11/18 08:10 Blood Pressure 111/68 01/11/18 11:46 Blood Pressure Mean 78 01/11/18 11:46 Pulse Oximetry 100 01/11/18 11:32 Respiratory End-tidal CO2 39 01/10/18 10:24 Oxygen Delivery Method Room Air 01/11/18 00:00 Oxygen Flow Rate 0 01/11/18 00:00 Pain Level 6 01/11/18 13:01 Intake & Output 01/10/18 01/11/18 01/11/18 23:59 11:59 23:59 Intake Total 644 / 644 2300 / 2300 240 / 240 Output Total 425 / 425 1750 / 1750 Balance 219 / 219 550 / 550 240 / 240 Weight 68.5 kg Intake: IV 644 / 644 1000 / 1000 Oral 1300 / 1300 240 / 240 Output: Urine 425 / 425 1750 / 1750 Other: Urine Color Yellow Yellow Urine Appearance Clear Clear Comment Indwelling Singh catheter.
--- NOTE | 2018-01-11 14:42 | PT.INDS ---
Date of service: 01/11/18 Time of Service: 14:42 PT Notes Inpatient Physical Therapy Discharge Summary Date: 01/11/18 Dates of Service: 01/10/18-01/11/18 SUBJECTIVE: NT OBJECTIVE: 01/10/18-01/11/18 Bed Mobility/Transfers: Supine-sit: independent Sit-supine: independent Sit-stand: supervision with FWW Stand-sit: supervision Gait: SBA with FWW 200ft WBAT R LE Stairs: up/down 5 steps with railing and cane, SBA/supervision Balance: Static Sitting: normal Dynamic Sitting: normal Static Standing: fair Dynamic Standing: fair Assessment: Pt is a 72yr old female s/p right total knee arthroplasty by Dr. Davis 01/10/18 in setting of osteoarthritis right knee, anxiety, neck pain, neuropathy, osteoporosis, piriformis syndrome left. Patient was seen for 3 PT visits. Progressed from SBA standing transfers to supervision, from SBA gait with FWW 40ftx2 to SBA gait with FWW 200ft, able to ascend/descend 5 steps with railing and cane SBA. Pt is being discharged to home today. Goals: Goals X1 week 1. Supine-Sit : independent 2. Sit-Supine : independent 3. Sit-Stand : independent with FWW 4. Stand-Sit : independent 5. Bed-Chair : supervision with FWW 6. Chair-Bed : supervision with FWW 7. Gait : supervision with FWW 200ft WBAT R LE 8. Stairs : up/down 5 steps with railing WBAT R LE, SBA 9. Independent with home exercise program for TKA Pt met goals # 1, 2, 8, 9- home PT recommended to meet remaining goals DISCHARGE RECOMMENDATIONS: Home with family support, pt would like home PT/OT. She has all DME G Codes in the area mobility of walking and moving around: projected status GP [id number]. Discharge status (if discharging) GP [id number] [facility] PT
[2018-01-11] MEDS: HYDROcodone 5/Acetaminophen 325 TAB PO ×2 (14:45→22:02)
--- NOTE | 2018-01-11 15:15 | PT.INTREAT ---
Date of service: 01/11/18 Time of Service: 13:30 PT Notes Inpatient Physical Therapy Treatment Note Date: 01/11/18 PRECAUTIONS:WBAT on R SUBJECTIVE: Gianna states that she is feeling better this afternoon, and is feeling better about going home today. OBJECTIVE: PAIN: No c/o pain BED MOBILITY/TRANSFERS Supine-sit: I with HOB flat Sit-supine: I with HOB flat Sit-stand: S Stand-sit: S GAIT Assistive Device: FWW Weight bearing: WBAT on R Assist: SBA Distance: 200' Deviation: Cueing for pacing THEREX: Patient performed a supine LE strengthening and stabilization program, as per flow sheet. Patient was able to tolerate a progression in her program today. STAIRS: Up/down 3x4 and 2x6 using 1 rail/SPC and a step-to pattern with SBA ASSESSMENT: Patient tolerated session well, through still requires cueing for pacing with gait training for safety. She was able to tolerate a progression in ther ex program, and was able to demonstrate independnece with supine<>sit transfers at this time. PLAN: Continue with PT's POC TREATMENT CODE/TIME: 30 minutes; TA/TP
--- NOTE | 2018-01-11 20:43 | NUR.NOTE ---
At 1923 pt was transferred from ICU to Med surg room 206. pt was able to get up and come over in a wheelchair for more information see VS and shift assessment.
[2018-01-11] MEDS: Gabapentin 300 MG CAP PO (22:03)
[2018-01-11] MEDS: Melatonin 3 MG TAB 4.5 MG PO (22:03)
--- NOTE | 2018-01-11 22:05 | W.PM.PROGNOT ---
Assessment and Plan (1) Osteoarthritis of right knee: Current visit: No Status: Chronic Gianna is a 72-year-old status post right knee replacement. She is doing well. She has been able to mobilize physical therapy. She has no notable complications. However, she is having some increasing pain is concerned about going home with her pain increasing. Therefore, we will continue to watch her tonight pain management and to continue to watch her pain control. She will continue to mobilize with nursing and likely go home tomorrow assuming the pain regimen is better. Subjective Interval history since last seen: Arina reports that she is starting to have some increasing pain. She has been able to ambulate. She has been able to work with physical therapy. She denies fever or chills. She is still able to straight leg raise. She has been able to void. She denies chest pain or shortness of breath. Exam Narrative Exam Narrative: No acute distress. Alert and oriented x3. Evaluation of the right knee shows a clean dry and intact dressing. She is able to straight leg raise. Range of motion is 5-80 degrees. Sensation intact light touch to the deep and superficial peroneal nerves as well as the tibial nerve. Foot is warm well perfused. Objective Objective Clinical Data: Vital Signs Temperature 36.8 C 01/11/18 19:25 Temperature Source Tympanic 01/11/18 19:25 Pulse 62 01/11/18 19:25 Pulse Rhythm Regular 01/11/18 20:52 Respiratory Rate 15 01/11/18 19:25 Respiratory Effort Non-Labored 01/11/18 20:52 Respiratory Depth Normal 01/11/18 20:52 Respiratory Pattern Normal 01/11/18 20:52 Blood Pressure 104/63 01/11/18 19:25 Blood Pressure Mean 73 01/11/18 15:44 Pulse Oximetry 96 01/11/18 19:25 Respiratory End-tidal CO2 39 01/10/18 10:24 Oxygen Delivery Method Room Air 01/11/18 19:25 Oxygen Flow Rate 0 01/11/18 19:25 Pain Level 2 01/11/18 19:15 Intake & Output 01/10/18 01/11/18 01/11/18 23:59 11:59 23:59 Intake Total 644 / 644 2300 / 2300 300 / 300 Output Total 425 / 425 1750 / 1750 2135 / 2135 Balance 219 / 219 550 / 550 -1835 / -1835 Weight 68.5 kg Intake: IV 644 / 644 1000 / 1000 Oral 1300 / 1300 300 / 300 Output: Urine 425 / 425 1750 / 1750 2134 Other: Urine Color Yellow Yellow Yellow Urine Appearance Clear Clear Clear Urine Odor Normal Comment Indwelling Nguyen catheter. Voiding Methods Toilet
[2018-01-12 03:30] VITALS: BP 142/75; PULSE 65; RESP 15; TEMP 36.2; O2SAT 99
[2018-01-12] MEDS: HYDROcodone 5/Acetaminophen 325 TAB PO ×2 (03:32→07:44)
[2018-01-12 07:21] VITALS: BP 124/71; PULSE 67; RESP 17; TEMP 35.4; O2SAT 99
[2018-01-12] MEDS: Calcium 600mg/Vit D 200U TAB 2 TAB PO (07:43)
[2018-01-12] MEDS: Aspirin E.C. 81 MG TABEC PO (07:43)
[2018-01-12] MEDS: Omega-3 Fatty Acids 1000 MG CAP PO (07:43)
[2018-01-12] MEDS: Celecoxib 200 MG CAP PO (07:44)
[2018-01-12] MEDS: Pantoprazole 40 MG TABCR PO (07:44)
[2018-01-12] MEDS: Acetaminophen 500 MG TAB 1000 MG PO (07:44)
--- NOTE | 2018-01-12 10:14 | DSE_ITS ---
Date of service: 01/12/18 Time of Service: 10:13 DS: Diagnosis Discharge Diagnosis (1) Osteoarthritis of right knee: Status: Chronic Discharge Plan Disposition Patient Disposition: HOME Condition: Good Discharge Details Reason For Visit: (R) KNEE DJD Admit Date/Time: 01/10/18 05:56 Admit Provider: Bassem Pastor Attending Provider: Bassem Pastor Primary Care Provider: Ky Fernandez Hospital Course Hospital Course: Patient was admitted to the medical/surgical floor following the procedure. It was tolerated well without any notable medical, surgical, or anesthetic complications. Mobilization began postoperatively. The singh catheter was removed and voiding spontaneously. Vitals were stable. Physical therapy worked with the patient and was cleared for discharge home. No acute medical issues. Home Meds and New Rx's Prescriptions: New polyethylene glycol 3350 17 gram Powder In Packet 17 g PO BID PRN PRN (Reason: Constipation) Qty: 0 RF: 0 hydrocodone-acetaminophen 5-325 mg Tablet 1 tab PO Q4H PRN PRNQty: 10 RF: 0 pantoprazole 40 mg Tablet,Delayed Release (Dr/Ec) 40 mg PO DAILY@0730 Qty: 30 RF: 0 docusate sodium [Colace] 100 mg Capsule 100 mg PO BID PRN PRN (Reason: Constipation) Qty: 0 RF: 0 gabapentin 300 mg Capsule 300 mg PO HS Qty: 7 RF: 0 celecoxib 200 mg capsule 200 mg PO BID PRN (Reason: pain) Qty: 60 RF: 1 acetaminophen 500 mg capsule 1,000 mg PO Q8H PRN (Reason: pain) Qty: 90 RF: 0 acetaminophen 500 mg capsule 1,000 mg PO Q8H PRN (Reason: pain) Qty: 90 RF: 0 Continue vitamin B complex [B-Complex] 1 EACH tablet 1 ea PO EOD RF: 0 melatonin 3 MG tablet 4.5 mg PO HS RF: 0 epinephrine [EpiPen 2-Derrick] 0.3 MG/0.3 ML auto-injector 0.3 mg IM ONCE RF: 0 multivitamin [Multi-Day] 1 EACH tablet 1 tab PO Q2D RF: 0 calcium carbonate-vitamin D3 1 EACH tablet 2 tab PO DAILY RF: 0 omega-3 fatty acids [Fish Oil] 300 MG capsule 1,200 mg PO DAILY RF: 0 ibuprofen 200 MG tablet 400 mg PO PRN PRNRF: 0 alendronate 70 MG tablet 70 mg PO Q7D@0700 RF: 0 Changed aspirin 81 MG tablet,delayed release (/EC) 81 mg PO BID Qty: 80 RF: 0 Discontinued naproxen sodium [Aleve] 220 mg Capsule 2 tab PO PRN PRNRF: 0 Discharge Instructions Instructions: Total Knee Discharge Instructions Additional Instructions: Dr. Pastor?s Total Knee Discharge Instructions Activity: The most important activity is to walk. You should try to take short walks a few times a day. It is important that when resting you work on keeping the knee straight. Avoid putting a pillow behind the knee as this will encourage flexion. Work on range of motion exercises as provided by Physical Therapy. - Start outpatient physical therapy within 2 weeks. - You should wear the LIONEL hose on both legs for 4 weeks. Dressing: Keep the surgical dressing in place for at least one week. After the first week it may be removed and replace with light gauze and tape or nothing. It may get wet after 3 days but avoid soaking the dressing. If it gets wet, just lightly pat dry. Medications: - You should take Tylenol and anti-inflammatory (Celebrex) as your primary pain control medications - You have been prescribed a stronger pain medication (hydrocodone) for breakthrough pain, take as needed as prescribed. - You will be taking Aspirin 81mg twice a day for DVT prevention unless instructed otherwise. - If you have constipation you should take Colace or Miralax (both over-the- counter). It takes most people 3-4 days to have a bowel movement. - You will take pantoprazole to control stomach acid- Follow-up: 2 weeks 1. Encounter Date and Reason I certify that GIANNA DOBSON was seen by Bassem Pastor on 01/11/18 and that I had a [id number] encounter with this patient that meets the physician face to face encounter requirements. 2. Clinical Findings Supporting Skilled Need and Homebound Status I certify that home health services are medically necessary, include either intermittent residential and/or physical/speech therapy, and that this patient is homebound in that absences from the home require considerable and taxing effort and are infrequent or of short duration, or are attributable to the need to receive medical care. [X] (a) Attached documentation from encounter provides clinical findings supporting skilled need and homebound status (including what assistance patient requires to leave the home). The encounter with the patient was in whole, or in part, for the following medical condition, which is the primary reason for home health care: (R) KNEE DJD Intermediate: Physical Therapy: Physical therapy is necessary to help restore normal ambulation. Gianna has significant weakness and range of motion deficits as well as ambulation abnormalities requiring physical therapy assistance. Speech Therapy: Homebound: Gianna is homebound due to her significant weakness and gait abnormalities following knee replacement. She is unable to leave her home unassisted. 3. Certification and Authentication I certify that I composed the above information based on my clinical judgement relating to this patient's medical condition and, if applicable, clinical findings communicated to me by the NPP or inpatient physician who performed the Home Health Referral. All further orders will be obtained through Dr. Bassem Pastor Stand Alone Forms: Nursing Discharge Form Referrals: Bassem Pastor MD [ [facility] STAFF PHYSICIAN] - Activity:: Activity as Tolerated Equipment/Supplies:: Walker Diet:: As Tolerated Exam Narrative Exam Narrative: Wound is benign. Dressing c/d/i. SLR intact. ROM 5-80. SILT DP/SP/Tib. DS: Data Vitals/I&O Vitals and I&O: Vital Signs Temperature 35.4 C L 01/12/18 07:21 Temperature Source Tympanic 01/12/18 07:21 Pulse 67 01/12/18 07:21 Pulse Rhythm Regular 01/12/18 07:51 Respiratory Rate 17 01/12/18 07:21 Respiratory Effort Non-Labored 01/12/18 07:51 Respiratory Depth Normal 01/12/18 07:51 Respiratory Pattern Normal 01/12/18 07:51 Blood Pressure 124/71 01/12/18 07:21 Blood Pressure Mean 73 01/11/18 15:44 Pulse Oximetry 99 01/12/18 07:21 Respiratory End-tidal CO2 39 01/10/18 10:24 Oxygen Delivery Method Room Air 01/12/18 07:21 Oxygen Flow Rate 0 01/12/18 07:21 Pain Level 6 01/12/18 07:44 Comment 01/12/18 07:21 Intake & Output 01/11/18 01/11/18 01/12/18 11:59 23:59 11:59 Intake Total 2300 / 2300 500 / 500 360 / 360 Output Total 1750 / 1750 2134 / 2134 Balance 550 / 550 -1635 / -1635 360 / 360 Weight 68.5 kg 70.4 kg Intake: IV 1000 / 1000 Oral 1300 / 1300 500 / 500 360 / 360 Output: Urine 1750 / 1750 2134 / 2134 Other: Urine Color Yellow Yellow Urine Appearance Clear Clear Clear Urine Odor Normal Voiding Methods Toilet Toilet
--- NOTE | 2018-01-12 10:19 | PT.INDS ---
Date of service: 01/12/18 Time of Service: 10:19 PT Notes Date: 01/12/18 Dates of Service: 01/10/18-01/12/18 Pt did not discharge to home yesterday, requested therapy see her one more time prior to discharge to home. SUBJECTIVE: Pt states she would like to review home exercise program prior to discharge and would like to take a shower. RN notified to prepare to assist pt with a shower. OBJECTIVE: Bed Mobility/Transfers: Supine-sit: independent Sit-supine: independent Sit-stand: supervision with FWW Stand-sit: supervision Wheelchair-bed: supervision Gait: SBA with FWW 200ft to shower room, WBAT R LE. Pt instructed in step sequence with use of FWW. Pt with tendency to get anxiety, expressing worry about every step she is taking, pt required instruction in breathing and relaxation techniques to be able to focus on gait sequence. Pt arrived in shower room and sat on shower bench and reported she felt faint. Pt stating she could not take a shower and asked to be returned to room to lay down in bed. Pt transported back to room via wheelchair and transferred to bed. Reported her symptoms improved with laying position. RN notified to check on patient. Therex: Pt issued new TKA rehab packet and all therapeutic exercises were reviewed with patient, all instructions are written in handout. Pt is to have home PT at discharge who will also review home program and progress her in home setting. Balance: Static Sitting: normal Dynamic Sitting: normal Static Standing: fair Dynamic Standing: fair Assessment: Pt is a 72yr old female s/p right total knee arthroplasty by Dr. Davis 01/10/18 in setting of osteoarthritis right knee, anxiety, neck pain, neuropathy, osteoporosis, piriformis syndrome left. Patient was seen for 4 PT visits. Pt is mobilizing well with transfers, gait with FWW and therapeutic exercise, she does present with anxiety which limits her ability to have confidence in her functional mobility and post rehab program. Support of home PT/OT in home setting should help to continue supporting her progress and address her emotional needs to become more confident with her rehab program. Discharge PT services with plan to discharge to home today. Goals: Goals X1 week 1. Supine-Sit : independent 2. Sit-Supine : independent 3. Sit-Stand : independent with FWW 4. Stand-Sit : independent 5. Bed-Chair : supervision with FWW 6. Chair-Bed : supervision with FWW 7. Gait : supervision with FWW 200ft WBAT R LE 8. Stairs : up/down 5 steps with railing WBAT R LE, SBA 9. Independent with home exercise program for TKA Pt met goals # 1, 2, 8, 9- home PT recommended to meet remaining goals DISCHARGE RECOMMENDATIONS: Home with family support, pt would like home PT/OT. She has all DME G Codes in the area mobility of walking and moving around: projected status GP [id number]. Discharge status (if discharging) GP [id number] CK [facility]en [facility] PT
--- NOTE | 2018-01-12 11:00 | PDOC.CMDIS ---
- If Service Date Differs Date of service: 01/12/18 Time of Service: 11:00 LACE Index Scoring Tool - Questions: Length of Stay (in days): 3 Acuity (Admit via E.D.?): No E.D. Visits: 0 - Answers: Total Score: 3 Risk of Readmission: Low Risk Care Management Discharge Reason for Hospitalization: Right Knee DJD. Discharge Plan: Gianna will be discharged home today she will transport home via private car with daughter. She will have new home health services for PT at time of discharge. Gianna feels that she is ready to return home and ready for discharge. Patient/Family Education Needs: Discharge education, limitations and follow up plan. Ask me three discussion and self management. Services Needed at Discharge: Home Health Care Services, Physical Therapy
[2018-01-12 11:35] VITALS: BP 108/59; PULSE 63; RESP 18; TEMP 36.3; O2SAT 98
--- NOTE | 2018-01-12 16:07 | CHAPLAIN ---
Gianna was in bed resting when I visited. She told me about her Judaism upbringing. She still attends the [employer] once a month or so, but has added her own style of Episcopal meditation to her personal prayer discipline. Being in the hospital has given her some time to think and she has sent some new priorities and goals for herself. She was tearful in talking with me, but voicing her plans also gave her some clarity, she said. Gianna's daughter is here to stay with her for a week and her son will be arriving next week.
== END 2018-01-12 13:20 | disposition home or self-care (01) | DRG 470 ==
LOC: PDS 07:44 → ICU 10:15 → MS 01-11 19:27
PROVIDERS: Admitting Provider Student in an Organized Health Care Education/Training Program; PCP Internal Medicine; Visit Provider Student in an Organized Health Care Education/Training Program
PROC: 0SRC0J9 Replacement of Right Knee Joint with Synthetic Substitute, Cemented, Open Approach (ICD-10-PCS; CPT 27447; principal; 2018-01-10 07:30)
DX: M17.11 Unilateral primary osteoarthritis, right knee (principal); M87.851 Other osteonecrosis, right femur; Z96.651 Presence of right artificial knee joint
CPT/HCPCS: 27447; 76942; 97110; 97162; 97530; NC; J0690; J1100; J1885; J2250; J2405

== ENCOUNTER 2018-01-25 13:19 | Outpatient (CLI) | payer MEDICARE, SELFPAY ==
--- NOTE | 2018-01-25 13:06 | DI.RAD_ITS ---
SYMPTOMS/DIAGNOSIS: S/P RT TKA LEG LENGTH STUDY: The left leg measures 95.3 cm. The right leg 95.4 cm. Note is made of a right knee TKR. The prosthesis in good position and surrounding bone intact. RIGHT KNEE: AP and lateral weight bearing imaging of the right knee were obtained. A right knee prosthesis is in excellent position. Surrounding bone intact. There are findings suspicious for a joint effusion.
== END 2018-01-25 13:39 ==
PROVIDERS: PCP Internal Medicine; Referring Provider Internal Medicine; Visit Provider Student in an Organized Health Care Education/Training Program
DX: Z47.1 Aftercare following joint replacement surgery (principal); Z96.651 Presence of right artificial knee joint; M17.11 Unilateral primary osteoarthritis, right knee
CPT/HCPCS: 73560; 77073

== ENCOUNTER → 2018-02-22 12:50 | Outpatient (BNVA) | payer MEDICARE, SELFPAY | PROVIDERS: PCP Internal Medicine; Referring Provider Internal Medicine; Visit Provider Student in an Organized Health Care Education/Training Program | DX: M17.11 Unilateral primary osteoarthritis, right knee (principal); Z47.1 Aftercare following joint replacement surgery; Z96.651 Presence of right artificial knee joint ==

== ENCOUNTER → 2018-04-05 12:59 | Outpatient (BNVA) | payer MEDICARE, SELFPAY | PROVIDERS: PCP Internal Medicine; Referring Provider Internal Medicine; Visit Provider Student in an Organized Health Care Education/Training Program | DX: M17.11 Unilateral primary osteoarthritis, right knee (principal); Z47.1 Aftercare following joint replacement surgery; Z96.651 Presence of right artificial knee joint; M17.12 Unilateral primary osteoarthritis, left knee | CPT/HCPCS: 20610; 99213; J1040 ==

== ENCOUNTER → 2018-05-17 12:58 | Outpatient (BNVA) | payer MEDICARE, SELFPAY | PROVIDERS: PCP Internal Medicine; Referring Provider Internal Medicine; Visit Provider Student in an Organized Health Care Education/Training Program | DX: M17.11 Unilateral primary osteoarthritis, right knee (principal); Z96.651 Presence of right artificial knee joint; M17.12 Unilateral primary osteoarthritis, left knee; Z47.1 Aftercare following joint replacement surgery; G62.9 Polyneuropathy, unspecified | CPT/HCPCS: 99212; 99213 ==

== ENCOUNTER 2018-06-08 21:27 | Outpatient (REF) | payer MEDICARE, SELFPAY ==
[2018-06-08 21:59] LABS: Cholesterol 218 mg/dL (50-200); Glucose 88 mg/dL (70-100); HDL Cholesterol 72 mg/dL (40-60); LDL CHOLESTEROL 125 mg/dL (<100); Triglyceride 91 mg/dL (30-150)
[2018-06-12 09:54] LABS: Hepatitis C Ab w Rflx HCV PCR Negative (NEGAT)
== END 2018-06-08 21:47 ==
LOC: NCHCN 21:27
PROVIDERS: PCP Internal Medicine; Visit Provider Internal Medicine
DX: R53.83 Other fatigue (principal); Z13.1 Encounter for screening for diabetes mellitus; Z13.6 Encounter for screening for cardiovascular disorders; Z11.59 Encounter for screening for other viral diseases; M13.862 Other specified arthritis, left knee; M81.0 Age-related osteoporosis without current pathological fracture; M54.5 Low back pain
CPT/HCPCS: 80061; 82947; 83721; 86803

== ENCOUNTER → 2018-07-03 10:16 | Outpatient (BNVA) | payer MEDICARE, SELFPAY | PROVIDERS: PCP Internal Medicine; Referring Provider Internal Medicine; Visit Provider Physical Therapy Assistant | DX: Z12.11 Encounter for screening for malignant neoplasm of colon (principal) ==

== ENCOUNTER 2018-07-11 21:41 | Outpatient (REF) | payer MEDICARE, SELFPAY ==
[2018-07-11 21:46] LABS: HCT 44.9 % (36.0-46.0); HGB 14.7 g/dL (12.0-15.5); Mean Corp. HGB Concentration 32.7 g/dL (32.0-36.0); Mean Corpuscular Hemoglobin 30.9 pg (27.0-33.0); Mean Corpuscular Volume 94.5 fL (80-95); Mean Platelet Volume 10.4 fL (8.0-11.0); Platelet Count 276 x1000/uL (130-400); RBC 4.75 m/cumm (4.00-5.20); RBC Distribution Width 14.3 % (11.7-14.6); White Blood Cell Count 3.62 k/cumm (4.4-10.8)
[2018-07-11 22:37] LABS: TSH (W/Ref FT4) 2.77 uIU/mL (0.358-3.74); Vitamin B12 710 pg/mL (193-986)
[2018-07-13 15:16] LABS: Albumin 64.8 % (55.8-66.1); Total Protein 7.2 g/dl (6.3-8.2)
== END 2018-07-11 22:01 ==
LOC: NCHCN 21:41
PROVIDERS: PCP Internal Medicine; Visit Provider Internal Medicine
DX: G60.9 Hereditary and idiopathic neuropathy, unspecified (principal)
CPT/HCPCS: 85027; 82607; 84165; 84443

== ENCOUNTER → 2018-07-12 12:40 | Outpatient (BNVA) | payer MEDICARE, SELFPAY | PROVIDERS: PCP Internal Medicine; Referring Provider Internal Medicine; Visit Provider Student in an Organized Health Care Education/Training Program | DX: M17.11 Unilateral primary osteoarthritis, right knee (principal); Z96.651 Presence of right artificial knee joint; M17.12 Unilateral primary osteoarthritis, left knee | CPT/HCPCS: 99213 ==

== ENCOUNTER 2018-07-31 06:05 | Day surgery (SDC) | payer MEDICARE, SELFPAY ==
--- NOTE | 2018-07-31 06:10 | W.COLOREPORT ---
Date of service: 07/31/18 Time of Service: : Colonoscopy Report Date of procedure: 07/31/18 Pre-op diagnosis general: Colon Cancer Screening/ Hx of polyps Post-op diagnosis procedure note: other (colorectal polyps, lloyd- diverticulosis) Procedure: Colonoscopy with polypectomy Surgeon: Tiki Dugan Anesthesia proc note operative: other (General/ ASA 2/ Karla Trujillo, CON) Estimated blood loss (mL): 5 Pathology: other (ascending colon polyp x3/ descending colon x1) Complications: None Disposition: same day Indications: Ms. Infante is a 72-year-old female who was seen in the office for a screening colonoscopy. Her last colonoscopy was in 2007 and was normal. She has no family history of colon cancer that she is aware of. Risks, benefits and complications have been reviewed. Complications include but are not limited to bleeding, pain, perforation, missed small lesion/polyp, sore throat, aspiration and adverse reaction to the medications. Questions were entertained and answered to their satisfaction and they wished to proceed. No guarantees were given or implied. Prep: Miralax/Dulcolax Procedure Start Time: Procedure End Time: :06 Retraction Time: 22 minutes Findings: 4 sessile polyps identified and removed with cold forceps Lloyd diverticulosis worse on the Right Procedure Description: After informed consent was obtained the patient was taken to the procedure room and placed in a left decubitous position. Monitors were applied and a time out was done. The patients name, date of , procedure, allergies to medications and metal in their body was reviewed. The patient was then sedated. Once sedated and comfortable a rectal exam was done. External exam was normal. Internal exam revealed a normal sphincter tone and no palpable masses. The scope was then introduced and retro-flexed. No internal hemorrhoids were identified. The scope was then advanced to the cecum with difficulty due to a tortuous colon in the transverse/ ascending colon. The TI and appendiceal orifice were identified. The prep was adequate. The scope was then slowly retracted over 22 minutes back into the rectum. Polyps were removed x3 with cold forceps in the ascending colon and x1 in the descending colon. There was lloyd-diverticulosis worse on the right. The scope was removed and the patient was woken up and taken back to Same day surgery in stable condition. The patient tolerated the procedure well and there were no immediate complications. Follow up: The patient should follow up in 3-5 years unless they develop changes in bowel habits or other new gastrointestinal complaints.
--- NOTE | 2018-07-31 06:17 | PDOC.DSDIS_ITS ---
Discharge Plan Disposition Patient Disposition: HOME Condition: Good Discharge Details Reason For Visit: Colon Cancer Screening Attending Provider: Tiki Dugan Primary Care Provider: Ky Fernandez Home Meds and New Rx's Prescriptions: Continued vitamin B complex [B-Complex] 1 EACH tablet 1 ea PO EOD RF: 0 melatonin 3 MG tablet 4.5 mg PO HS RF: 0 epinephrine [EpiPen 2-Derrick] 0.3 MG/0.3 ML auto-injector 0.3 mg IM ONCE RF: 0 multivitamin [Multi-Day] 1 EACH tablet 1 tab PO Q2D RF: 0 calcium carbonate-vitamin D3 1 EACH tablet 2 tab PO DAILY RF: 0 Fish Oil 300 MG capsule 1,200 mg PO .EVERY OTHER DAY RF: 0 alendronate 70 MG tablet 70 mg PO Q7D@0700 RF: 0 ibuprofen 400 mg Tablet 400 mg PO BID PRNRF: 0 Discontinued polyethylene glycol 3350 17 gram/dose powder 238 g PO ONCE Qty: 238 RF: 0 bisacodyl [Dulcolax (bisacodyl)] 5 mg tablet,delayed release (DR/EC) 5 mg PO ONCE Qty: 4 RF: 0 Discharge Instructions Instructions: Colonoscopy (DC), Colorectal Polyps (DC), Diverticulosis (DC) Additional Instructions: Findings: polyps x 4 Diverticulosis Follow up: 3-5 years Please call if you develop: fevers >101.5 Nausea or Vomiting Abdominal pain that is not transient DAY SURGERY UNIT POST COLONOSCOPY INSTRUCTIONS 1. Because there will be medication in your system for the next 24 hours, you may feel a little sleepy. Your coordination will be affected. Therefore: a. Do not drive or operate dangerous equipment for 24 hours. b. Do not drink alcohol beverages for 24 hours (not even beer). c. Plan to go home and rest for the day. 2. Generally there are no restrictions on your activity after a day or so has gone by, but you may feel a bit fatigued for a few days. 3 After you arrive home you may have a light meal and return to a normal diet as you can tolerate it without feeling sick to your stomach. 4. After surgery, you may feel pain or discomfort. This should be only transien t, but if it persists please contact your doctor. 5. If there are any questions regarding the findings of your procedure, please feel free to contact your doctor. 6. If you are unable to contact your doctor with a problem, contact the hospital at [phone]. 4. Continue all your regular medications unless directed otherwise. I understand the above instructions and have no questions. Signature of Patient or Responsible Adult Escort Date/Time Name of Responsible Adult Escort Signature of Nurse Date/Time Activity:: Activity as Tolerated Diet:: High Fiber diet Discharge Orders Discharge Orders: Discharge Order (Routine); Ordered 07/31/18 Ordered By: Tiki Dugan DS: Diagnosis Discharge Diagnosis (1) S/P colonoscopy: Status: Acute (2) Colorectal polyps: Status: Acute
[2018-07-31 06:29] VITALS: BP 124/81; PULSE 74; RESP 18; TEMP 35.4; O2SAT 100
[2018-07-31] MEDS: Lactated Ringers 1,000 ML 80 ML IV (06:29)
--- NOTE | 2018-07-31 07:48 | BOWEL_PTH ---
PATIENT: Gianna Infante LOC: [facility] U#:[id number] AGE/SX: 72/F ROOM: RE07/31/[address]: Tiki Dugan MD : 1945 BED: DIS: 07/31/2018 SPEC #: [id number] RECD: 07/31/18 12:35 STATUS: JESSICA REQ #: [id number] [place]: 07/31/18 07:[address]: Tiki Dugan DEPT: Surgical Specimen RECD BY: Kat Mcgrath ENTERED: 07/31/18 12:36 SP TYPE: Bowel OTHR DR: Ky Fernandez Tissues: 1 - BIOPSY BOWEL 2 - BIOPSY BOWEL Procedures: GROSS AND MICRO LEVEL 4 Comments: [id number]
[2018-07-31 08:37] VITALS: BP 124/74; PULSE 54; RESP 16; TEMP 36.6; O2SAT 99
== END 2018-07-31 09:05 | disposition home or self-care (01) ==
PROVIDERS: PCP Internal Medicine; Visit Provider Surgery
PROC: 0DJD8ZZ Inspection of Lower Intestinal Tract, Via Natural or Artificial Opening Endoscopic (ICD-10-PCS; CPT 45378; principal; 2018-07-31 07:30)
DX: Z12.11 Encounter for screening for malignant neoplasm of colon (principal); D12.2 Benign neoplasm of ascending colon; D12.4 Benign neoplasm of descending colon; K57.30 Diverticulosis of large intestine without perforation or abscess without bleeding
CPT/HCPCS: 45380; 88305

== ENCOUNTER 2018-11-22 01:47 | Outpatient (CLI) | payer MEDICARE, SELFPAY ==
--- NOTE | 2018-11-22 13:27 | DI.CT_ITS ---
SYMPTOMS/DIAGNOSIS: PULMONARY NODULE, R91.1 CT SCAN OF THE CHEST: Noncontrast CT scan of the chest was performed. Comparison is 11/07/17. The visualized thyroid gland is unremarkable. The thoracic aorta is of normal caliber. The heart size is within normal limits. No significant pericardial effusion is present. No significant thoracic adenopathy, pleural effusion or pneumothorax is present. There has been no change in size of the noncalcified 5 mm pulmonary nodule in the left lower lobe. No new pulmonary nodules are seen. No infiltrates are present. The tracheobronchial tree is unremarkable. Degenerative changes are present in the spine. IMPRESSION: Stable 5 mm left lower lobe pulmonary nodule. Follow up as clinically appropriate. This may include a follow up CT scan is one year.
== END 2018-11-22 02:07 ==
PROVIDERS: PCP Internal Medicine; Visit Provider Internal Medicine
DX: R91.1 Solitary pulmonary nodule (principal)
CPT/HCPCS: 71250

== ENCOUNTER 2019-01-08 13:54 | Outpatient (CLI) | payer MEDICARE, SELFPAY ==
--- NOTE | 2019-01-08 13:04 | DI.RAD_ITS ---
EXAM: XR KNEE RT 2V AP,LAT INDICATION: ANNUAL F/U. COMPARISON: XR knee RT 1V from 01/25/2018 XR standing alignment from 01/25/2018 TECHNIQUE: 2D digital imaging was performed. FINDINGS: Two views were obtained and show total knee joint replacement in position. The components appear wel l seated. There is lucency projected across the superior aspect of the patella on the AP view which appears to correspond with a detached osteophyte on the lateral view. Correlation requested regardin g any symptoms at the superior pole of the patella to suggest an osteophyte fracture or other patella r fracture. IMPRESSION:
== END 2019-01-08 14:14 ==
PROVIDERS: PCP Internal Medicine; Referring Provider Internal Medicine; Visit Provider Student in an Organized Health Care Education/Training Program
DX: M17.11 Unilateral primary osteoarthritis, right knee (principal); Z96.651 Presence of right artificial knee joint
CPT/HCPCS: 99213; 73560

== ENCOUNTER → 2019-02-12 09:29 | Outpatient (BNVA) | payer MEDICARE, SELFPAY | PROVIDERS: PCP Internal Medicine; Referring Provider Internal Medicine; Visit Provider Student in an Organized Health Care Education/Training Program | DX: M17.12 Unilateral primary osteoarthritis, left knee (principal) | CPT/HCPCS: 20610; 99213; J1040 ==

== ENCOUNTER 2019-05-15 10:45 | Outpatient (REF) | payer MEDICARE, SELFPAY ==
[2019-05-15 21:56] LABS: HCT 44.5 % (36.0-46.0); HGB 14.8 g/dL (12.0-15.5); Mean Corp. HGB Concentration 33.3 g/dL (32.0-36.0); Mean Corpuscular Hemoglobin 31.8 pg (27.0-33.0); Mean Corpuscular Volume 95.7 fL (80-95); Mean Platelet Volume 10.1 fL (8.0-11.0); Platelet Count 330 x1000/uL (130-400); RBC 4.65 m/cumm (4.00-5.20); RBC Distribution Width 13.5 % (11.7-14.6); White Blood Cell Count 6.26 k/cumm (4.4-10.8)
[2019-05-15 22:13] LABS: Hemoglobin A1C 5.7 % (3.8-5.6)
[2019-05-15 22:18] LABS: ALT 39 U/L (14-59); AST 22 U/L (15-37); Albumin 3.9 g/dL (3.4-5.0); Alkaline Phosphatase 58 U/L (46-116); Anion Gap 6.8 mmol/L (3-11); BUN 18 mg/dL (7-18); Bilirubin, Total 0.3 mg/dL (0.2-1.0); CO2 31.2 mmol/L (21.0-32.0); CREATININE 0.51 mg/dL (0.55-1.02); Calcium 9.3 mg/dL (8.5-10.1); Chloride 104 mmol/L (98-107); Glucose 94 mg/dL (74-106); Potassium 4.5 mmol/L (3.5-5.1); Sodium 142 mmol/L (136-145)
[2019-05-17 12:27] LABS: Total Protein 7.1 g/dL (6.3-8.2)
== END 2019-05-15 11:05 ==
LOC: NCHCN 10:45
PROVIDERS: PCP Internal Medicine; Visit Provider Internal Medicine
DX: G62.9 Polyneuropathy, unspecified (principal); R00.2 Palpitations; R73.09 Other abnormal glucose
CPT/HCPCS: 80053; 85027; 83036; 84165; 84443

== ENCOUNTER 2019-05-16 07:29 | Outpatient (CLI) | payer MEDICARE, SELFPAY ==
--- NOTE | 2019-05-16 13:49 | DI.RAD_ITS ---
EXAM: XR LUMBAR SPINE COMPLETE CLINICAL HISTORY: LUMBOSACRAL SPONDYLOLYSIS, M43.07, LOW BACK PAIN, M54.5. TECHNIQUE: 2D digital imaging was performed. COMPARISON: CT CHEST WO from 11/22/2018 FINDINGS: BONES: Since the prior CT scan on 11/22/2018, there has developed a compression fracture of the T12 ve rtebral body. There is loss of approximately 40 percent of the height of the vertebral body anterior ly. There is focal kyphosis at this level. No other compression fracture is identified. Vertebral bodies are unremarkable. No facet hypertrophy identified. DISKS: There is disc space narrowing at T12-L1 and L3-L4. Endplate osteophytes are present throughou t the lumbar spine particularly from T12-L1 through L3-L4. There are degenerative changes of the fac ets present. ALIGNMENT: There is a mild left convex scoliosis of the lumbar spine. SOFT TISSUE: Normal. IMPRESSION: 1. Interval compression fracture deformity of T12. The acuity is indeterminate. 2. Moderate degenerative changes throughout the lumbar spine.
== END 2019-05-16 07:49 ==
PROVIDERS: PCP Internal Medicine; Visit Provider Internal Medicine
DX: M54.5 Low back pain (principal); M51.36 Other intervertebral disc degeneration, lumbar region; M48.54XA Collapsed vertebra, not elsewhere classified, thoracic region, initial encounter for fracture
CPT/HCPCS: 72110

== ENCOUNTER 2019-07-19 00:17 | Outpatient (CLI) | payer MEDICARE, SELFPAY ==
--- NOTE | 2019-07-19 09:00 | ETT_ITS ---
APPROVED REPORT Exam: Exercise Treadmill Patient Location: Out-Patient Room/Bed: Stress Nurse: Lise Harding RN BMI: 20.37 Baseline Rhythm: Sinus Rhythm Indications: Atypical chest pain. Medical History Allergies: Prozac. Hormone replacement therapy. Bee venum. Cardiac Risk Factors: FHX of CAD. Father of Myocardial Infarction at age 50 years. Pretest Chest Pain Characteristics: Atypical angina Physical Disabilities: Back Lung Sounds: Clear to auscultation Heart Sounds: Regular Stress Test Details Test: Exercise stress testing was performed using a Miguel Angel protocol. Rest Stress HR Resting HR Supine: 63 bpm Max Heart Rate (APMHR): 147 bpm Resting HR Standin bpm Target HR (85% APMHR): 124 bpm Max HR Achieved: 136 bpm % of APMHR: 92 Recovery HR: 88 bpm HR response to stress: Normal HR response to stress BP Resting BP Supine: 140/76 mmHg Resting BP Standin/78 mmHg Max BP: 154/82 mmHg Recovery BP: 138/72 mmHg BP response to stress: Normal blood pressure response to stress. ECG Resting ECG: Sinus Rhythm with left ventricular hypertrophy Stress ECG: Sinus Tachycardia ST Change: No significant ST segment changes. Arrhythmia: None Recovery ECG: Sinus Rhythm Recovery ST Change: Normal Clinical Reason for Termination: Fatigue Stress Symptoms: General Fatigue Exercise duration: 6 min06 sec Highest Stage Reached: Stage 2: 2.5 mph at 12% grade. Exercise capacity: 7.19 METs Functional Capacity: Above average capacity Angina Score: None Stress ECG Conclusion 1. The patient exercised for 6 minutes (7 METS). Rate-pressure product was 22,000. 2. Patient no symptoms suggestive of exertional angina. 3. There was no evidence of ischemia on the ECG portion of the exam. 4. The Salgado Score (5) estimates an annual cardiovascular mortality of 1% and a five year survival of 94%. Using the Salgado Score there is a low probability of any angiographic coronary disease. Stress Test Summary STAGE Time (mins) Speed (mph) Grade (%) HR BP SYMPTOMS METS Supine 63 140/76 Standing 75 142/78 1 3 1.7 10 106 150/76 4.6 2 6 2.5 12 135 7 1 min recovery 114 154/82 3 min recovery 86 144/78 6 min recovery 88 138/72
== END 2019-07-19 00:37 ==
PROVIDERS: PCP Internal Medicine; Visit Provider Internal Medicine
DX: R07.89 Other chest pain (principal); Z82.49 Family history of ischemic heart disease and other diseases of the circulatory system
CPT/HCPCS: 93016; 93018; 93017

== ENCOUNTER 2019-11-04 10:37 | Emergency (ER) | payer MEDICARE, SELFPAY ==
--- NOTE | 2019-11-04 10:38 | ED.GENADUL_ITS ---
Discharge Plan Disposition Patient Disposition: HOME Condition: Improving Discharge Details Chief Complaint: Allergic Clinical Impression: Bee sting, Localized rash Primary Care Provider: Ky Fernandez ED Provider: Bárbara Contreras Home Meds and New Rx's Prescriptions: New prednisone 20 mg tablet See Rx Instructions .ROUTE .COMPLEX Qty: 12 RF: 0 epinephrine 0.3 mg/0.3 mL auto-injector 0.3 ml SC ONCE PRN (Reason: anaphylaxis) Qty: 2 RF: 0 Continued vitamin B complex [B-Complex] 1 EACH tablet 1 ea PO EOD RF: 0 melatonin 3 MG tablet 4.5 mg PO HS RF: 0 epinephrine [EpiPen 2-Derrick] 0.3 MG/0.3 ML auto-injector 0.3 mg IM ONCE RF: 0 multivitamin [Multi-Day] 1 EACH tablet 1 tab PO Q2D RF: 0 calcium carbonate-vitamin D3 1 EACH tablet 2 tab PO DAILY RF: 0 Fish Oil 300 MG capsule 1,200 mg PO .EVERY OTHER DAY RF: 0 ibuprofen 400 mg Tablet 400 mg PO BID PRNRF: 0 Forteo 20 mcg/dose - 600 mcg/2.4 mL Pen Injector 600 mcg SUBCUT DAILY RF: 0 Discharge Instructions Instructions: Insect Bite or Sting (ED) Additional Instructions: Drink plenty of fluids and get plenty of rest. Take Benadryl as needed and directed for itching. Take the steroids until finished. Follow-up with your primary care doctor in 1 week. Return to the emergency department with any worsening or new concerning symptoms. 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 She administered EpiPen and a total of 50 mg Benadryl. She denies any oral, respiratory or GI symptoms. Her vitals are within normal limits. She appears comfortable, speaking in full sentences. She has minimal urticarial rash to her left lateral breast with normal oropharynx and clear lungs. Will give a dose of 60 mg prednisone and continue to monitor. As patient did not develop anaphylactic symptoms prior to injection of EpiPen, do not see an indication for observing for the total 6-hour period after epinephrine but will watch for a short while and reassess. 1220 --patient observed for almost 2 hours and is requesting to go home. She wa s able to eat and drink without difficulty. She denies any oral or respiratory symptoms. She has another EpiPen at home. She was given prescriptions for prednisone and EpiPen. Advised to follow up with the primary care doctor for re-evaluation. Usual and customary return precautions given prior to discharge. Medical Records Medical records reviewed: Yes I reviewed the patient's medical records. HPI General Mode of arrival: ambulatory . Date/Time Provider Initiated Documentation: 11/04/19 10:38 . Limitations to Documentation: no limitations . Information obtained by: patient . HPI Narrative: Patient is a 73-year-old female presents for evaluation after bee sting to her left breast at 9:30 AM. Patient states she was walking outside when she felt 1 bee sting to her left lateral breast. She states she has a history of anaphylaxis multiple times to bee stings and gave herself an EpiPen injection approximately 50 minutes later. She states she only noticed an itchy rash to her left lateral breast as her only symptom and denies any headache, dizziness, throat swelling or itching, difficul ty breathing, chest pain, abdominal pain or vomiting. She states she also took 2 tabs of 25 mg Benadryl shortly after using her EpiPen. She states she lives alone and was walking outside alone when this occurred. She feels that the rash to her left breast is currently improving and denies any other symptoms at this time. Related Data Home Medications Medication Instructions Recorded Confirmed Fish Oil 1,200 mg PO .EVERY OTHER DAY 03/26/14 11/04/19 calcium carbonate-vitamin D3 2 tab PO DAILY 03/26/14 11/04/19 multivitamin [Multi-Day] 1 tab PO Q2D 03/26/14 11/04/19 vitamin B complex [B-Complex] 1 ea PO EOD 08/11/17 11/04/19 melatonin 4.5 mg PO HS 08/24/17 11/04/19 epinephrine [EpiPen 2-Derrick] 0.3 mg IM ONCE NS 10/25/17 11/04/19 ibuprofen 400 mg PO BID PRN 07/27/18 11/04/19 Forteo 600 mcg SUBCUT DAILY 11/04/19 11/04/19 epinephrine 0.3 ml SC ONCE PRN #2 each 11/04/19 prednisone See Rx Instructions .ROUTE 11/04/19 .COMPLEX #12 tab Previous Rx's Medication Instructions Recorded epinephrine 0.3 ml SC ONCE PRN #2 each 11/04/19 prednisone See Rx Instructions .ROUTE 11/04/19 .COMPLEX #12 tab Allergies Allergy/AdvReac Type Severity Reaction Status Date / Time venom-honey bee Allergy Severe Anaphylaxsi Unverified 11/04/19 10:44 [bee venom (honey bee)] s fluoxetine [From Prozac] AdvReac Intermediate paranoid Verified 11/04/19 10:44 hormone replacement therapy AdvReac Intermediate paranoid Uncoded 11/04/19 10:44 Review of Systems All systems reviewed & are unremarkable except as noted in HPI and below Constitutional Constitutional: Reports as per HPI, Denies chills and Denies fever(s) Eyes Eyes: Denies blurry vision ENT Ears, Nose, Mouth, and Throat: Denies dizziness, Denies sore throat and Denies throat swelling Cardiovascular Cardiovascular: Denies chest pain and Denies dyspnea Respiratory Respiratory: Denies cough and Denies dyspnea Gastrointestinal Gastrointestinal: Denies abdominal pain, Denies diarrhea and Denies vomiting Genitourinary Genitourinary: Denies hematuria and Denies dysuria Musculoskeletal Musculoskeletal: Denies back pain and Denies numbness Integumentary/Breasts Skin/Breast: Denies lesions and Reports rash Neurologic Neurologic: Denies dizziness, Denies localized weakness and Denies numbness Allergic/Immunologic Allergic/Immunologic: Denies throat swelling [facility] Medical History (Updated 11/04/19 @ 12:00 by Bárbara Contreras DO) 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) Anxiety Colorectal polyps (Acute ~07/31/18) Dysphagia Intermittent palpitations (Acute) Left lower lobe pulmonary nodule (Acute) Neck pain Neuropathy Onychogryphosis (Chronic) Osteoarthritis Osteoporosis Piriformis syndrome Piriformis syndrome of left side Surgical History (Updated 01/08/19 @ 13:09 by PATTIE Campo) H/O vein stripping (Resolved) History of arthroplasty of right knee (Resolved) History of tonsillectomy and adenoidectomy (Resolved) S/P colonoscopy (Acute ~07/31/18) Social History (Updated 01/02/18 @ 20:19 by PATTIE Campo) Smoking/Tobacco Use Status: Never Alcohol Intake: current Alcohol Intake frequency: 0-2 drinks per day Alcohol type: wine Details: drinks one glass of wine nightly Drug use: Never Substance use type: does not use Current gender identity: female Do you feel safe at home: Yes Do you feel safe in your relationship?: Yes Exam Const General: cooperative and healthy appearing Orientation: alert and awake [facility] Head: normal to inspection Ears: hearing grossly normal bilaterally, external ears normal and TM's normal bilaterally General nose exam: external nose normal Face and sinus: normal facial exam Mouth: oral mucosae normal Teeth and gingiva: dentition normal Throat: posterior oropharynx normal Eyes General: appearance normal, both eyes and all related structures Eyelids: eyelids normal Pupils: PERRL EOM: EOM intact bilaterally Neck Neck: normal visual inspection Lymphatic: no lymphadenopathy noted Chest Chest/axillae images: 1. Raised area of erythema consistent with urticaria noted to the left lateral breast. There is no vesicular rash drainage or bleeding. No induration or fluctuance. Resp Effort & Inspection: normal respiratory effort and able to speak in complete sentences Auscultation: clear to auscultation bilaterally Cardio Rate: regular rate Rhythm: regular rhythm GI Inspection: normal to inspection Palpation: soft, not firm, no guarding, no hepatosplenomegaly, no masses and nontender Auscultation: normal bowel sounds Neuro General: patient alert and patient awake Cognition: normal cognition Speech: speech normal Gait: normal gait Motor: muscle tone normal throughout Sensory Exam: no sensory deficits noted Extrem General: normal to inspection, full ROM and capillary refill normal Psych Appearance: grossly normal Mental Status: mental status grossly normal Speech and Movement: speech and movement normal Affect: normal affect Thought Process: normal
[2019-11-04 10:39] VITALS: BP 138/70; PULSE 69; RESP 16; TEMP 36.7; O2SAT 96
[2019-11-04] MEDS: predniSONE 20 MG TAB 60 MG PO (11:10)
[2019-11-04 11:50] VITALS: BP 140/77; PULSE 65; RESP 16; O2SAT 100
[2019-11-04 12:25] VITALS: BP 129/66; PULSE 82; RESP 18; O2SAT 99
== END 2019-11-04 12:35 | disposition home or self-care (01) ==
PROVIDERS: Emergency Provider Physician Assistant; PCP Internal Medicine
DX: T63.441A Toxic effect of venom of bees, accidental (unintentional), initial encounter (principal); L50.0 Allergic urticaria; L53.9 Erythematous condition, unspecified; Z91.030 Bee allergy status
CPT/HCPCS: 99284; J7512

== ENCOUNTER 2019-12-10 12:21 | Outpatient (REF) | payer MEDICARE, SELFPAY ==
[2019-12-10 22:09] LABS: Hemoglobin A1C 5.4 % (<5.7)
[2019-12-10 22:31] LABS: Calculated LDL 147 mg/dL (<100); Cholesterol 243 mg/dL (<200); Glucose 91 mg/dL (74-106); HDL Cholesterol 80 mg/dL (40-60); Triglyceride 82 mg/dL (<150)
== END 2019-12-10 12:41 ==
LOC: NCHCN 12:21
PROVIDERS: PCP Internal Medicine; Visit Provider Internal Medicine
DX: R73.03 Prediabetes (principal); M81.0 Age-related osteoporosis without current pathological fracture; E78.89 Other lipoprotein metabolism disorders; R41.3 Other amnesia
CPT/HCPCS: 80061; 82947; 83036

== ENCOUNTER 2020-01-18 17:00 | Outpatient (REF) | payer MEDICARE, SELFPAY ==
[2020-01-18 21:41] LABS: FREE T4 0.89 ng/dL (0.76-1.46); TSH 1.21 uIU/mL (0.36-3.74)
== END 2020-01-18 17:20 ==
LOC: NCHCN 17:00
PROVIDERS: PCP Internal Medicine; Visit Provider Internal Medicine
DX: L65.9 Nonscarring hair loss, unspecified (principal)
CPT/HCPCS: 84439; 84443

== ENCOUNTER 2020-07-15 23:57 | Outpatient (REF) | payer MEDICARE, SELFPAY ==
--- NOTE | 2020-07-15 16:00 | SKI_PTH ---
PATIENT: Gianna Infante LOC: [facility] U#:[id number] AGE/SX: 74/F ROOM: RE07/15/[address]: Ky Fernandez : 1945 BED: DIS: 07/15/2020 SPEC #: [id number] RECD: 07/16/20 12:37 STATUS: JESSICA VILLAGRAN #: [id number] [place]: 07/15/20 16:[address]: Ky Fernandez DEPT: Surgical Specimen RECD BY: Kat Mcgrath Tissues: 1 - SKIN BIOPSY(SHAVE/PUNCH) Procedures: SKIN LEVEL 4 Comments: [id number]
== END 2020-07-15 23:58 | disposition home or self-care (01) ==
LOC: NCHCN 23:57
PROVIDERS: PCP Internal Medicine; Visit Provider Internal Medicine
DX: L82.1 Other seborrheic keratosis (principal)
CPT/HCPCS: 88305

== ENCOUNTER → 2020-11-11 13:59 | Outpatient (BNVA) | payer MEDICARE, SELFPAY | PROVIDERS: PCP Family Medicine; Referring Provider Internal Medicine | DX: M17.12 Unilateral primary osteoarthritis, left knee (principal) | CPT/HCPCS: 20610; J1040 ==

== ENCOUNTER 2020-12-11 14:19 | Outpatient (REF) | payer MEDICARE, SELFPAY ==
[2020-12-11 13:50] LABS: Abs Immature Grans 0.02 10^3/uL (0.0-0.06); Absolute Basophil Count 0.04 10^3/uL (0.0-0.2); Absolute Eosinophil Count 0.07 10^3/uL (0.0-0.7); Absolute Lymphocyte Count 1.65 10^3/uL (1.2-3.4); Absolute Monocyte Count 0.34 10^3/uL (0.1-0.8); Absolute Neutrophil Count 2.96 10^3/uL (1.2-6.7); Basophils % 0.8; Eosinophils % 1.4; HGB 15.2 g/dL (11.2-15.7); Immature Grans % 0.4; Lymphocytes % 32.5; MCH 31.7 pg (27.0-33.0); MCV 95.8 fL (80-95); MPV 9.5 fL (8.0-11.0); Monocytes % 6.7; Neutrophils % 58.2; Nucleated RBC 0 %; Platelet Count 296 10^3/uL (130-400); RDW-SD 46.2 fL; WBC 5.08 10^3/uL (4.4-10.8)
[2020-12-11 14:01] LABS: Magnesium 2.1 mg/dL (1.8-2.4)
[2020-12-11 14:28] LABS: Vitamin D 25 Total 42.2 ng/mL (30-100)
[2020-12-11 14:29] LABS: ALT 39 U/L (14-59); AST 26 U/L (15-37); Albumin 4.4 g/dL (3.4-5.0); Alkaline Phosphatase 76 U/L (46-116); Anion Gap 9.6 mmol/L (3-11); BUN 11 mg/dL (7-18); Bilirubin, Total 0.6 mg/dL (0.2-1.0); CO2 29.4 mmol/L (21.0-32.0); CREATININE 0.7 mg/dL (0.55-1.02); Chloride 105 mmol/L (98-107); Glucose 90 mg/dL (74-106); Sodium 144 mmol/L (136-145); TSH (W/Ref FT4) 1.55 uIU/mL (0.36-3.74); Total Protein 7.4 g/dL (6.4-8.2); Vitamin B12 1118 pg/mL (193-986)
[2020-12-11 14:47] LABS: C-Reactive Protein < 0.05 mg/dL (0.0-0.3)
== END 2020-12-11 14:20 | disposition home or self-care (01) ==
LOC: NCHCN 14:19
PROVIDERS: PCP Family Medicine; Referring Provider Family Medicine; Visit Provider Family Medicine
DX: G62.9 Polyneuropathy, unspecified (principal); M43.07 Spondylolysis, lumbosacral region; M54.5 Low back pain; R91.1 Solitary pulmonary nodule
CPT/HCPCS: 80053; 82306; 82607; 83735; 84443; 85025; 86140

== ENCOUNTER 2020-12-18 09:44 | Outpatient (REF) | payer MEDICARE, SELFPAY ==
[2020-12-18 21:14] LABS: Calculated LDL 160 mg/dL (<100); Cholesterol 261 mg/dL (<200); HDL Cholesterol 85 mg/dL (40-60); Triglyceride 83 mg/dL (<150)
== END 2020-12-18 09:45 | disposition home or self-care (01) ==
LOC: NCHCN 09:44
PROVIDERS: PCP Family Medicine; Visit Provider Family Medicine
DX: Z00.00 Encounter for general adult medical examination without abnormal findings (principal)
CPT/HCPCS: 80061

== ENCOUNTER 2021-01-05 13:36 | Outpatient (CLI) | payer MEDICARE, SELFPAY ==
--- NOTE | 2021-01-05 13:15 | DI.RAD_ITS ---
Exam(s) XR KNEE LT 1V XR STANDING ALIGNMENT EXAM: XR STANDING ALIGNMENT CLINICAL HISTORY: left knee DJD; preoperative planning TECHNIQUE: COMPARISON: CR XR standing alignment from 01/25/2018 CR XR KNEE LT 1V from 01/05/2021 CR XR KNEE LT 1V from 01/05/2021 FINDINGS: Standing AP views of both lower extremities and lateral view the left knee were obtained. There are mild degenerative changes of both hips. There is a total knee joint replacement in position on the r ight. On the left, there are degenerative changes of the joints of the knee, probably most marked in volving the medial tibiofemoral joint and patellofemoral joint. There appear to be loose bodies supe rior to the patella in the suprapatellar bursa of the left knee. IMPRESSION: RADIATION DOSE DELIVERED: Total DLP
== END 2021-01-05 13:37 | disposition home or self-care (01) ==
LOC: DIORS 13:36
PROVIDERS: PCP Family Medicine; Referring Provider Internal Medicine; Visit Provider Student in an Organized Health Care Education/Training Program
DX: M17.12 Unilateral primary osteoarthritis, left knee (principal)
CPT/HCPCS: 99213; 73560; 77073

== ENCOUNTER 2021-01-06 00:55 | Outpatient (CLI) | payer MEDICARE, SELFPAY ==
[2021-01-06] MEDS: Omnipaque 350 MG/ML 50 ML BTL PO (08:47)
[2021-01-06] MEDS: Breeza Beverage 473 ML BTL PO ×2 (08:49)
[2021-01-06] MEDS: Omnipaque 350 MG/ML 100 ML BTL IJ (10:06)
[2021-01-06] MEDS: Normal Saline - Diluent 50 ML VIAL IV (10:07)
[2021-01-06] MEDS: Normal Saline Flush 10 ML SYR IVP (10:08)
--- NOTE | 2021-01-06 10:15 | DI.CT_ITS ---
Exam(s) CT ABDOMEN PELVIS W EXAM: CT ABDOMEN PELVIS W CLINICAL HISTORY: ABD BLOATING,R14.0. TECHNIQUE: Imaging Protocol: Axial computed tomography images with coronal and sagittal reformatted images were created and reviewed CONTRAST MATERIAL: Intravenous: Omnipaque 100cc Oral: Yes. Oral contrast was administered for bowel opacification. COMPARISON: CT CHEST FOR PULMONARY EMBOLUS from 05/06/2017 FINDINGS: VISUALIZED LUNG BASES: Mild increased markings in the posterior basal segment of the left lower lobe are noted. Also in the inferior lingular segment of the left lung.. A small nodular density in the lateral basal segment of the left lower lobe seen on the CT scan of 2018 has decreased in size.. The re are no pleural effusions. ABDOMEN: There is no ascites. LIVER: There is a 2 millimeter tiny benign cyst in the inferior aspect of the right hepatic lobe. No ominous a patent lesions. GALLBLADDER/BILIARY: No obvious gallbladder pathology. However, this CBD day is significantly dilate d (1.4 cm) and there is a calculus in the CBD measuring 8 x 7 millimeters. However, the CBD is also noted to be dilated below this level to the level of the duodenal wall. There does not appear to be an obvious mural mass at this level. PANCREAS: There is a 6 x 7 millimeter cystic structure in the pancreas at the junction of the body an d tail. Possibly an intrahepatic creatinines cystic neoplasm. Pancreatic duct is not dilated. SPLEEN: Spleen is not enlarged. No obvious intrasplenic lesions. Splenic and portal veins are paten t. ADRENALS: There are no significant adrenal masses. KIDNEYS:No cysts evident. No solid renal masses. No calculi nor hydronephrosis.. ABDOMINAL AORTA: Abdominal aorta is not enlarged. LYMPH NODES:There is no retroperitoneal nor paraaortic adenopathy. ABDOMINAL WALL: No evidence of significant anterior abdominal wall nor inguinal hernia. GI: There is no evidence of bowel obstruction, free air, nor abscess. PELVIS: GI: No evidence of appendicitis.There is sigmoid diverticuli but no evidence of acute diverticulitis. LYMPH NODES: There is no intrapelvic nor inguinal adenopathy. REPRODUCTIVE: Uterus and adnexal regions appear age-appropriate. No free fluid in the pelvis. URINARY BLADDER: No calculi nor obvious masses evident OSSEOUS: A wedge compression fracture of T12 and prominent Schmorl's node invagination in the superio r endplate of T11. These findings were not evident on chest CT scan of 2018. IMPRESSION: 1. There is a prominent calcification-probable calculus within the lower half of the CBD, this measur es 8 by 7 millimeters and the CBD is dilated to a diameter of 14 millimeter. There are no calculi ev ident within the gallbladder and the gallbladder wall is not edematous. There is no prominent dilata tion of intrahepatic ducts. 2. Pancreatic duct is not dilated but there is a 7 x 6 millimeter cystic structure in the pancreas at the junction of the body and tail which may be a small intra pancreatic cystic neoplasm and this vu l also require follow-up. 3. Compression fractures superior endplate of T11 and inferior endplate of T12 which do not appear ac [place] but were not evident on a chest CT scan performed April 2017. 4. Sigmoid diverticuli but no evidence of acute diverticulitis. RADIATION DOSE DELIVERED: 794.86mGy.cm Total DLP DATA REPOSITORY: All CT scans at this facility are submitted to the National Radiology Data Registry (NRDR) Dose Index Registry (DIR) with the [employer] ([employer]). RADIATION OPTIMIZATION: All CT scans at this facility use at least one of these dose optimization te chniques: automated exposure control; mA and/or kV adjustment per patient size (includes targeted exa ms where dose is matched to clinical indication); or iterative reconstruction.
== END 2021-01-06 01:15 ==
PROVIDERS: PCP Family Medicine; Visit Provider Family Medicine
DX: R14.0 Abdominal distension (gaseous) (principal); K57.30 Diverticulosis of large intestine without perforation or abscess without bleeding; S22.080A Wedge compression fracture of T11-T12 vertebra, initial encounter for closed fracture; R93.5 Abnormal findings on diagnostic imaging of other abdominal regions, including retroperitoneum; K80.50 Calculus of bile duct without cholangitis or cholecystitis without obstruction
CPT/HCPCS: 74177; J3490; Q9967

== ENCOUNTER 2021-04-30 13:49 | Outpatient (REF) | payer MEDICARE, SELFPAY ==
[2021-04-30 21:25] LABS: Abs Immature Grans 0.02 10^3/uL (0.0-0.06); Absolute Basophil Count 0.04 10^3/uL (0.0-0.2); Absolute Eosinophil Count 0.13 10^3/uL (0.0-0.7); Absolute Lymphocyte Count 1.43 10^3/uL (1.2-3.4); Absolute Monocyte Count 0.39 10^3/uL (0.1-0.8); Absolute Neutrophil Count 4.17 10^3/uL (1.2-6.7); Basophils % 0.6; Eosinophils % 2.1; HCT 42.7 % (36.0-46.0); HGB 13.9 g/dL (11.2-15.7); Immature Grans % 0.3; Lymphocytes % 23.1; MCH 31.1 pg (27.0-33.0); MCHC 32.6 % (32.0-36.0); MCV 95.5 fL (80-95); MPV 10.3 fL (8.0-11.0); Monocytes % 6.3; Neutrophils % 67.6; Nucleated RBC 0 %; Platelet Count 285 10^3/uL (130-400); RBC 4.47 10^6/uL (3.93-5.22); RDW 12.9 % (11.7-14.6); RDW-SD 45.6 fL; WBC 6.18 10^3/uL (4.4-10.8)
[2021-04-30 21:33] LABS: ALT 35 U/L (14-59); AST 23 U/L (15-37); Albumin 4.1 g/dL (3.4-5.0); Alkaline Phosphatase 65 U/L (46-116); Anion Gap 5.1 mmol/L (3-11); BUN 14 mg/dL (7-18); Bilirubin, Total 0.3 mg/dL (0.2-1.0); CO2 31.9 mmol/L (21.0-32.0); CREATININE 0.6 mg/dL (0.55-1.02); Calcium 9.9 mg/dL (8.5-10.1); Chloride 107 mmol/L (98-107); Glucose 104 mg/dL (74-106); Potassium 5.4 mmol/L (3.5-5.1); Sodium 144 mmol/L (136-145); Total Protein 7.1 g/dL (6.4-8.2)
== END 2021-04-30 13:50 | disposition home or self-care (01) ==
LOC: NCHCN 13:49
PROVIDERS: PCP Family Medicine; Visit Provider Nurse Practitioner Family
DX: R10.31 Right lower quadrant pain (principal)
CPT/HCPCS: 80053; 85025

== ENCOUNTER → 2021-05-13 13:09 | Outpatient (BNVA) | payer MEDICARE, SELFPAY | PROVIDERS: PCP Family Medicine; Referring Provider Family Medicine | DX: M17.12 Unilateral primary osteoarthritis, left knee (principal) ==

== ENCOUNTER 2021-05-25 02:12 | Outpatient (CLI) | payer MEDICARE, SELFPAY ==
[2021-05-25 10:16] LABS: HCT 43.1 % (36.0-46.0); MCH 30.8 pg (27.0-33.0); MCHC 32.5 % (32.0-36.0); MCV 94.9 fL (80-95); MPV 9.4 fL (8.0-11.0); Platelet Count 288 10^3/uL (130-400); RBC 4.54 10^6/uL (3.93-5.22); RDW 13.1 % (11.7-14.6); RDW-SD 46.4 fL
[2021-05-25 10:34] LABS: Source Nasal/Nares
[2021-05-25 11:38] LABS: Anion Gap 3.4 mmol/L (3-11); BUN 16 mg/dL (7-18); CO2 33.6 mmol/L (21.0-32.0); CREATININE 0.6 mg/dL (0.55-1.02); Calcium 9.8 mg/dL (8.5-10.1); Chloride 102 mmol/L (98-107); Glucose 82 mg/dL (74-106); Potassium 4.3 mmol/L (3.5-5.1); Sodium 139 mmol/L (136-145)
[2021-05-25 16:21] LABS: COVID-19 PCR Negative (Negative)
== END 2021-05-25 02:13 | disposition home or self-care (01) ==
LOC: LBO 02:12
PROVIDERS: PCP Family Medicine; Visit Provider Student in an Organized Health Care Education/Training Program
DX: M25.562 Pain in left knee (principal); M17.12 Unilateral primary osteoarthritis, left knee; Z20.822 Contact with and (suspected) exposure to COVID-19; Z01.818 Encounter for other preprocedural examination; Z01.812 Encounter for preprocedural laboratory examination
CPT/HCPCS: 36415; 80048; 85027; 87635; U0005

== ENCOUNTER 2021-05-27 06:47 | Observation (INO) | payer MEDICARE, SELFPAY ==
[2021-05-27] VITALS (11 sets, daily range): BP systolic 117–148; BP diastolic 66–89; PULSE 62–78; RESP 12–21; TEMP 36–36.8; O2SAT 94–100; BMI 21.9
--- NOTE | 2021-05-27 07:38 | W.PM.DSUDISC ---
Discharge Plan Disposition Patient Disposition: HOME Condition: Stable Discharge Details Reason For Visit: Left TKA Admit Provider: Bassem Pastor Attending Provider: Bassem Pastor Primary Care Provider: Cesilia Stokes Home Meds and New Rx's Prescriptions: New celecoxib [Celebrex] 200 mg capsule 200 mg PO BID Qty: 60 0RF aspirin 81 mg tablet,delayed release (DR/EC) 81 mg PO BID Qty: 60 0RF pantoprazole [Protonix] 40 mg tablet,delayed release (DR/EC) 40 mg PO DAILY Qty: 30 0RF gabapentin 300 mg capsule 300 mg PO QHS Qty: 14 0RF acetaminophen 500 mg capsule 1,000 mg PO Q8H PRN PRNQty: 90 0RF oxycodone 5 mg tablet 5 mg PO Q4H PRNQty: 18 0RF Continued biotin 1 mg capsule 1 mg PO DAILY 0RF vitamin K2 100 mcg capsule 100 mcg PO DAILY 0RF vitamin B complex [B-Complex] 1 EACH tablet 1 ea PO EOD 0RF melatonin 3 MG tablet 4.5 mg PO HS 0RF epinephrine [EpiPen 2-Derrick] 0.3 MG/0.3 ML auto-injector 0.3 mg IM ONCE 0RF multivitamin [Multi-Day] 1 EACH tablet 1 tab PO Q2D 0RF calcium carbonate-vitamin D3 1 EACH tablet 2 tab PO DAILY 0RF Fish Oil 300 MG capsule 1,200 mg PO .EVERY OTHER DAY 0RF Forteo 20 mcg/dose - 600 mcg/2.4 mL Pen Injector 600 mcg SUBCUT DAILY 0RF epinephrine 0.3 mg/0.3 mL auto-injector 0.3 ml SC ONCE PRN (Reason: anaphylaxis) Qty: 2 0RF Rx Instructions: as a single dose; may repeat once Discontinued ibuprofen 400 mg Tablet 400 mg PO BID PRN0RF Discharge Instructions Additional Instructions: Total Knee Discharge Instructions Activity: The most important activity is to walk. You should try to take short walks a few times a day. It is important that when resting you work on keeping the knee straight. Avoid putting a pillow behind the knee as this will encourage flexion. Work on range of motion exercises as provided by Physical Therapy. If you have the Nomanini bike coming, this will be your primary tool for exercise after the knee replacement. You should use it and follow the directions for the knee. Utilize the other exercises sparingly based on your symptoms. - Start outpatient physical therapy within 2 weeks. - You should wear the LIONEL hose on both legs for 2 weeks. You may remove these at night. You may also use any compression sock in place of the LIONEL hose. - Utilize [employer] to review exercises, see videos on exercises and obtain basic information pertaining to your surgery and your recovery. Dressing: Remove the Kobe wrap by 2 days after your surgery and put on the LIONEL stocking given to you from the hospital. Keep the surgical dressing (underneath the KOBE wrap) in place for at least one week. After the first week it may be removed and replaced with light gauze and tape or nothing. The wound and dressing may get wet after 3 days but avoid soaking the dressing or otherwise it will need to be changed. Many people prefer covering the dressing with cling wrap (saran wrap) to minimize it from getting soaked. If it gets wet, just pat dry. If it starts to peel off then it will need to be changed. Medications: - You should take Tylenol and anti-inflammatory Celebrex as your primary pain control medications. If the Celebrex is too expensive or not covered, please call the office for another alternative (Advil/Ibuprofen or Naproxen/Aleve) - You have been prescribed a stronger pain medication Oxycodone for breakthrough pain, take as needed as prescribed. - You have also been prescribed a stomach acid reduction agent Pantoprozole to help reduce stomach acid and reflux. - You have been prescribed Gabapentin to take at night for restlessness and nerve pain. - You will be taking Aspirin 81mg twice a day for DVT prevention unless instructed otherwise. - If you have constipation you should take Colace or Miralax (both [id number]). It takes most people 3-4 days to have a bowel movement. Follow-up: 2 weeks If you have any acute concerns or questions, please do not hesitate to contact the office at [phone]. You may contact Dr. Pastor with any questions after hours through the hospital at [phone] or on his cell phone at [phone]. Referrals: Bassem Pastor MD [ [facility] STAFF PHYSICIAN] - Activity:: Activity as Tolerated Equipment/Supplies:: Walker Diet:: As Tolerated Discharge Orders Discharge Orders: Discharge Order (Routine); Ordered 05/27/21 Ordered By: Nury Leon DS: Diagnosis Discharge Diagnosis (1) Arthritis of left knee: Status: Chronic
[2021-05-27] MEDS: Gabapentin 300 MG CAP PO ×2 (08:30→23:46)
[2021-05-27] MEDS: Acetaminophen 500 MG TAB 1000 MG PO ×3 (08:31→20:31)
[2021-05-27] MEDS: Celecoxib 200 MG CAP 400 MG PO (08:32)
--- NOTE | 2021-05-27 08:47 | W.ANESPRE ---
General Info Date of Service Date Performed: 05/27/21 Height: 5 ft 9 in Weight: 67.2 kg Body Mass Index (BMI): 21.9 Surgical Procedure: Operation Date: 05/27/21 09:55 Proposed Procedure Side Surgeon p (L) Knee Total Arthroplasty Cemented CR Left Bassem Pastor MD Meds Allergies and Home Medications Allergies Allergy/AdvReac Type Severity Reaction Status Date / Time venom-honey bee Allergy Severe Anaphylaxsi Unverified 05/27/21 08:14 [bee venom (honey bee)] s fluoxetine [From Prozac] AdvReac Intermediate paranoid Verified 05/27/21 08:14 hormone replacement therapy AdvReac Intermediate paranoid Uncoded 05/27/21 08:14 SSRI Medications AdvReac Intermediate Other (See Uncoded 05/27/21 08:14 Comment) Home Medication Medication Instructions Recorded calcium carbonate 600 mg-vitamin 2 tab PO DAILY 03/26/14 D3 5 mcg (200 unit) tablet multivitamin (Multi-Day) 1 tab PO Q2D 03/26/14 omega-3 fatty acids 300 mg capsule 1,200 mg PO .EVERY OTHER DAY 03/26/14 (Fish Oil) vitamin B complex (B-Complex) 1 ea PO EOD 08/11/17 melatonin 3 mg tablet 4.5 mg PO HS 08/24/17 EpiPen 2-Derrick 0.3 mg/0.3 mL 0.3 mg IM ONCE NS 10/25/17 injection, auto-injector (epinephrine) epinephrine 0.3 mg/0.3 mL 0.3 ml SC ONCE PRN #2 each 11/04/19 injection, auto-injector teriparatide (Forteo) 600 mcg SUBCUT DAILY 11/04/19 biotin 1 mg capsule 1 mg PO DAILY 11/11/20 vitamin K2 100 mcg capsule 100 mcg PO DAILY 11/11/20 acetaminophen 500 mg capsule 1,000 mg PO Q8H PRN PRN #90 cap 05/27/21 aspirin 81 mg tablet,delayed 81 mg PO BID #60 tab 05/27/21 release celecoxib 200 mg capsule (Celebrex) 200 mg PO BID #60 cap 05/27/21 gabapentin 300 mg capsule 300 mg PO QHS #14 cap 05/27/21 oxycodone 5 mg tablet 5 mg PO Q4H PRN #18 tab 05/27/21 pantoprazole 40 mg tablet,delayed 40 mg PO DAILY #30 tab 05/27/21 release (Protonix) Current Visit Medications: Current Medications Generic Name Dose Route Start Last Admin Trade Name Janette PRN Reason Stop Dose Admin Acetaminophen 1,000 mg 05/27/21 06:00 05/27/21 08:31 Acetaminophen 500 Mg Tab PO 05/27/21 16:00 1,000 mg PREOP WAQAR Administration Acetaminophen 1,000 mg 05/27/21 14:00 Acetaminophen 500 Mg Tab PO TID WAQAR Aspirin 81 mg 05/27/21 20:00 Aspirin E.C. 81 Mg Tabec PO BID WAQAR Celecoxib 400 mg 05/27/21 06:00 05/27/21 08:32 Celecoxib 200 Mg Cap PO 05/27/21 16:00 400 mg PREOP WAQAR Administration Celecoxib 200 mg 05/27/21 20:00 Celecoxib 200 Mg Cap PO BID WAQAR Docusate Sodium 100 mg 05/27/21 07:36 Docusate Sodium 100 Mg Cap PO BID PRN PRN Constipation Gabapentin 300 mg 05/27/21 06:00 05/27/21 08:30 Gabapentin 300 Mg Cap PO 05/27/21 16:00 300 mg PREOP WAQAR Administration Gabapentin 300 mg 05/27/21 22:00 Gabapentin 300 Mg Cap PO HS WAQAR Hydromorphone HCl 0.5 mg 05/27/21 07:36 Hydromorphone 2 Mg/Ml Vial IVP Q2H PRN PRN Tranexamic Acid 1,000 mg/ 60 mls @ 360 mls/hr 05/27/21 06:00 Sodium Chloride IVPB 05/27/21 16:00 PREOP WAQAR Tranexamic Acid 1,000 mg/ 60 mls @ 360 mls/hr 05/27/21 06:00 Sodium Chloride IVPB 05/27/21 16:00 DIRECTED WAQAR Ringer's Solution 1,000 mls @ 80 mls/hr 05/27/21 06:00 IV 06/25/21 23:59 INFUSION WAQAR Cefazolin Sodium/Dextrose 2 gm in 50 mls @ 100 mls/hr 05/27/21 06:00 Ancef Duplex IVPB 06/25/21 23:59 PREOP WAQAR Cefazolin Sodium/Dextrose 1 gm in 50 mls @ 100 mls/hr 05/27/21 16:00 Ancef Duplex IVPB 05/28/21 08:29 Q8H WAQAR IV Miscellaneous Supplies 1 each 05/27/21 06:00 Iv Access IV 06/25/21 23:59 DIRECTED WAQAR Ondansetron HCl 4 mg 05/27/21 07:36 Ondansetron 4 Mg/2 Ml Vial IVP Q6H PRN PRN Nausea Oxycodone HCl 0 mg 05/27/21 07:36 Oxycodone 5 Mg Tab PO Q3H PRN PRN Pain Pantoprazole Sodium 40 mg 05/28/21 07:30 Pantoprazole 40 Mg Tabcr PO DAILY@0730 WAQAR Sodium Chloride 0 ml 05/27/21 06:00 Normal Saline Flush 10 Ml Syr IV 06/25/21 23:59 PRN PRN Sodium Chloride 0 ml 05/27/21 06:00 Normal Saline 10 Ml Vial IJ 06/25/21 23:59 DIRECTED PRN Sterile Water 0 ml 05/27/21 06:00 Water,Injection,Sterile 10 Ml Vial IJ 06/25/21 23:59 DIRECTED PRN PFSH Active Problems Active Problems: Problem Status Onset Code Arthritis of left knee M17.12 Onychogryphosis L60.2 Left lower lobe pulmonary nodule R91.1 Intermittent palpitations R00.2 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 Pastor Tobacco Smoking/Tobacco Use Status: Never Alcohol Alcohol Intake: current Alcohol intake frequency: 0-2 drinks per day Alcohol type: wine Details: drinks one glass of wine nightly Substance Use Substance use: Never Substance use type: does not use Vital Signs and Lab Results Vital Signs Most Recent Vital Signs in EMR: Most Recent Vital Signs Temp Pulse Resp BP Pulse Ox 36.3 C L 78 16 148/86 H 98 05/27/21 08:28 05/27/21 08:28 05/27/21 08:05/27/21 08:28 05/27/21 08:28 Lab Results Blood Type / Crossmatch: No Data to Display Complete Blood Count: White Blood Count 4.90 10^3/uL (4.4-10.8) 05/25/21 09:50 05/25/21 Red Blood Count 4.54 10^6/uL (3.93-5.22) 05/25/21 09:50 05/25/21 Hemoglobin 14.0 g/dL (11.2-15.7) 05/25/21 09:50 05/25/21 Hematocrit 43.1 % (36.0-46.0) 05/25/21 09:50 05/25/21 Platelet Count 288 10^3/uL (130-400) 05/25/21 09:50 05/25/21 Complete Metabolic Panel: Sodium Level 139 mmol/L (136-145) 05/25/21 09:50 05/25/21 Potassium Level 4.3 mmol/L (3.5-5.1) 05/25/21 09:50 05/25/21 Chloride Level 102 mmol/L (98-107) 05/25/21 09:50 05/25/21 Carbon Dioxide Level 33.6 mmol/L (21.0-32.0) H 05/25/21 09:50 05/25/21 Blood Urea Nitrogen 16 mg/dL (7-18) 05/25/21 09:50 05/25/21 Creatinine 0.6 mg/dL (0.55-1.02) 05/25/21 09:50 05/25/21 Estimated GFR/1.73 m2 >= 60.00 (mL/min/1.73m2) 05/25/21 09:50 05/25/21 Calcium Level 9.8 mg/dL (8.5-10.1) 05/25/21 09:50 05/25/21 Albumin 4.1 g/dL (3.4-5.0) 04/30/21 12:05 04/30/21 Glucose Level 82 mg/dL (74-106) 05/25/21 09:50 05/25/21 Liver Function Panel: Alanine Aminotransferase (ALT/SGPT) 35 U/L (14-59) 04/30/21 12:05 04/30/21 Aspartate Amino Transf (AST/SGOT) 23 U/L (15-37) 04/30/21 12:05 04/30/21 Coagulation Panel: No Data to Display Cardiac Panel: No Data to Display Arterial Blood Gas: No Data to Display Venous Blood Gas: No Data to Display Pancreas Panel: No Data to Display Thyroid Panel: No Data to Display Infectious Disease: Coronavirus (COVID-19)(PCR) Negative (Negative) 05/25/21 09:57 05/25/21 Coronavirus 2019 Source Nasal/Nares 05/25/21 09:57 05/25/21 Blood Cultures: No Data to Display Toxicology Panel: No Data to Display Imaging and Studies Imaging and Studies Study information below may be from another EMR and interpreted by another provider. Please see original notes in EMR for more complete details. Stress Test Summary: Stress ECG Conclusion 1. The patient exercised for 6 minutes (7 METS). Rate-pressure product was 22,000. 2. Patient no symptoms suggestive of exertional angina. 3. There was no evidence of ischemia on the ECG portion of the exam. 4. The Salgado Score (5) estimates an annual cardiovascular mortality of 1% and a five year survival of 94%. Using the Salgado Score there is a low probability of any angiographic coronary disease. 07/19/19 Anesthesia Assessment and Plan Anesthesia History Personal History: No History of Anesthesia Complications Family History: No Family History of Anesthesia Complications Exercise Tolerance Exercise Tolerance: Metabolic Equivalents>4 Pertinent Negatives Pertinent Negatives: No Symptoms of GERD, No Major Cardiovascular Symptoms or Complaints (History of afib), No Major Pulmonary Symptoms or Complaints, No History of CVA/TIA and Other (Neuropathy in bilateral feet) Cardiac & Pulmonary Exam Cardiac Exam: Normal S1/S2 Heart Sounds Pulmonary Exam: Clear Bilateral Breath Sounds Implantable Cardiac Device Does patient have a Pacemaker or an ICD?: No Airway Exam Known Difficult Airway: No Mallampati Class: 2 Mouth Opening: Normal (> 3cm) Thyromental Distance: Greater than 3 cm Neck Range of Motion: Full ROM Neck Circumference: Normal Teeth Condition: Normal Dentition and Other (Bonded lower front teeth) ASA Classification ASA Score: ASA 2 Emergency Case?: No NPO Status NPO Status: NPO Clears >2 hours, Solids >8 hours Anesthesia Plan Resuscitation Status: Full Code Anesthesia Technique: Spinal Anesthesia Airway Planned: Natural Airway Pain Management: Surgeon and patient request nerve block Monitors Used: Standard Monitors
[2021-05-27] MEDS: Lactated Ringers 1,000 ML 80 ML IV ×3 (09:01→23:47)
[2021-05-27] MEDS: ceFAZolin 2 GM/50 ML BAG IVPB (10:39)
[2021-05-27] MEDS: Bupivacaine 0.25% Pres-Free 30 ML VIAL (11:15)
[2021-05-27] MEDS: Ketorolac 30 MG/ML VIAL (11:15)
[2021-05-27] MEDS: Normal Saline 20 ML VIAL (11:15)
--- NOTE | 2021-05-27 11:16 | W.ANESNERVE ---
Nerve Block Single Injection Procedure Date and Time Date Performed: 05/27/21 Procedure Start: 09:48 Location Where Procedure Performed Procedure Location: Day Surgery Unit Reason Performed: Postoperative Analgesia Requesting Provider: Bassem Pastor Timeout Performed Timeout Performed: Yes Monitoring Used ECG, Blood Pressure, SpO2 and See EMR for corresponding vital signs Sterility Sterility: Hand Hygiene, Surgical Cap, Surgical Mask, Sterile Gloves and Chlorhexidine Sedation Given During Procedure Sedation Given (Indicate Dose Given): Versed IV Dose:: 2mg Patient Mental Status Patient Mental Status: Awake Nerve Block 1st Nerve Block: Laterality: Left Block Type: Adductor Canal Needle / Catheter Used: 100mm SonoPlex II Local Anesthetic Bolus (Indicate Dose Given): Lidocaine used for local infiltration of skin and Bupivacaine 0.25% Dose:: 15ml Additives (Indicate Dose Given): Normal Saline Ultrasound: Sterile probe cover and gel used Ultrasound Image Saved?: Yes Nerve Stimulator: Not Used Paresthesia: None Post Procedure Pain score (0-10): 0 Procedure Tolerated: No Complications and Patient tolerated well Procedure Outcome: Successful Performed By: Linda Rain Supervised By: Katelynn Andrade
[2021-05-27] MEDS: oxyCODONE 5 MG TAB PO (14:16)
--- NOTE | 2021-05-27 15:22 | PT.INIE ---
Date of service: 05/27/21 Time of Service: 15:22 PT Notes Visit Reasons: Left TKA Physical Therapy Inpatient Initial Evaluation Date: 05/27/2021 Referring Doctor: PATTIE Townsend PT Orders: PT CONSULT: Status post Ortho surgery Precautions: Fall. Standard. WBAT on left LE with AD. Patient Profile/Admitting Diagnosis: Gianna is a 75-year-old female with degenerative joint disease of the left knee and is status post left total knee arthroplasty on postoperative day 0. PMHX: Surgical History?(Updated 05/13/21 @ 12:55 by PATTIE Campo) H/O vein stripping History of tonsillectomy and adenoidectomy Status post total right knee replacement (01/10/18) DOS: 01/10/18 Dr. Pastor Social History/Home Situation: Lives alone in an apartment complex with one-step to enter. Independent with all aspects of ADLs prior to surgery. Equipment Owned/DME: FWW, [employer] Subjective: Agreeable to PT consult. Reports burning pain radiating from the knee up to the whole length thigh at certain knee and thigh positions and with ambulation activity. Subsides with rest. Reports that her head feels it's twice is heavy. Objective: General Observation: Supine in bed. ELISABET wraps to left LE. Cryocuff to left knee. IV to right UE. TEDS on right leg. Mental Status: Alert and oriented as to person, place, time, and purpose. Able to pay attention, focus, and respond appropriately. Pain: 2/10 in left knee at rest , up to 6/10 with ambulation and movement transitions Vital Signs: Within normal limits closely monitored by nurse Glasgow ROM: Right Lower Extremity: Hip flexion WFL. Hip abduction WFL. Knee flexion WFL. Ankle dorsiflexion WFL. Ankle plantarflexion WFL. Left Lower Extremity: Hip flexion WFL. Hip abduction WFL. Knee flexion 10 degrees to 100 degrees. Knee extension -10 degrees. Ankle dorsiflexion WFL. Ankle plantarflexion WFL. Strength: Right Lower Extremity: Hip flexors 5/5. Hip abductors 5/5. Knee flexors 5/5. Knee extensors 5/5. Ankle dorsiflexors 5/5. Ankle plantarflexors 5/5. Left Lower Extremity: Hip flexors 5/5. Hip abductors 5/5. Knee flexors 3-/5. Knee extensors 3-/5. Ankle dorsiflexors 5/5. Ankle plantarflexors 5/5. Sensation: Intact as to pain and light touch in both bilateral lower extremities Bed Mobility/Transfers: Supine to sit with standby assist with HOB flat Sit to stand with contact-guard assist requiring minimal verbal cueing for hand placement and left LE positioning Stand to sit with standby assist requiring minimal verbal cueing for hand placement and left LE positioning Bed to reclining chair with standby assist requiring minimal verbal cueing for hand placement and left LE positioning Gait: Instructed patient with level surface ambulation of 300 feet requiring contact-guard assist. Patient has a tendency to be impulsive as she lets go of the walker while ambulating for no important reason at all. Nurse Myah providing wheelchair follow for safety. Step through gait pattern. Report of her head being twice as heavy and of mild lightheadedness did not cause any loss of balance. Balance: Static Sitting: Normal Dynamic Sitting: Normal Static Standing: Fair Dynamic Standing: Fair Special Tests: Mobility Limitations Standardized Measure [facility] AM-PAC 6 clicks Basic Mobility Inpatient Short Form: Raw Score: 21 CMS Score: 29% deficit Informed Consent/Education: Patient was instructed in purpose of PT consult and plan of care. Agreeable to proceed with established PT POC to achieve personal goals. Assessment: Needs moderate verbal cueing to use B hands for support to minimize pain felt in L knee during movement transitions and use of FWW duirng ambulation activity. Can be impulsive, needs repetitive cueing to comply with safety techniques for mobility performance. Gianna demonstrates functional mobility decline requiring the use of front wheeled walker for mobility ADL performance. Patient presents with clinical signs and symptoms consistent with current/admitting diagnoses that have resulted to mobility limitations, gait instability, generalized weakness, and overall ADL decline as demonstrated by the following impairment level findings: 1. Decreased strength to left kneemajor muscle groups 2. Impaired standing balance 3. Impaired activity tolerance 4. Limitation of joint range of motion in left knee 5. Pain in L knee and thigh Impairments are contributing to the following functional limitations: 1. Decline in bed mobility skills 2. Decline in transfer skills 3. Difficulty with ambulation without assistive device and physical assistance 4. Increased completion time for mobility ADL performance 5. Increased risk for falls 6. Difficulty with managing steps alone safely Patient is assessed as a [id number] moderate 75 complexity based on the following: History: -year-old femalewith past medical history as indicated above Examination: Demonstrable impairment in strength, balance, and mobility level with underlying impairments and functional limitations as exhibited above as well as deficit score of 29% utilizing the [facility] Mobility Inpatient Short Form Presentation: Evolving Decision Makin moderate complexity Goals: Goals X1 week 1. Supine-Sit independent 2. Sit-Supine independent 3. Sit-Stand independent 4. Stand-Sit independent with FWW 5. Bed-Chair independent with FWW 6. Chair-Bed independent with FWW 7. Independent gait on level surface with use of FWW for at least 300 feet without report of pain nor dyspnea 8. Independent stair negotiation while holding onto 1 rail for at least 3 steps without report of pain nor dyspnea 9. Independent with home exercise program 10. Good static and dynamic standing balance/tolerance Plan of Care/Treatment Plan: 1-2x/day, 7 days/week x 1 week. Plan of care has been reviewed with the [employer] providing the service under Physical Therapy direction. Initiate Physical Therapy intervention for pain management as needed, strengthening, bed mobility, transfers, gait, stairs, balance training, and use of assistive device. DISCHARGE RECOMMENDATIONS: [] Home with no services [] [] Home with services [specify] [X] Home with outpatient PT. Home when medically cleared by orthopedic surgeon. Will benefit from outpatient PT services to facilitate return to independent community ambulation without an assistive device. [] SNF for continued rehabilitation [] [] Long-Term Care [] [] SNF versus LTC based on ability to participate and progress [] TREATMENT CODE/TIME: 50511 x 30 minutes, 00976 x 23 minutes beginning at 15:22 PM. Thank you for the opportunity to participate in the care of this patient. Alessandra Galan PT, DPT, CLT [facility] [place], [place]
--- NOTE | 2021-05-27 15:27 | ROE_ITS ---
Date of service: 05/27/21 Time of Service: 12:11 Operative Note Operative Note DATE OF PROCEDURE: 05/27/21 PRE-OP DIAGNOSIS: Left Knee Osteoarthritis POST-OP DIAGNOSIS: same PROCEDURE: Left Total Knee Replacement SURGEON: Bassem Pastor MANAGEMENT RETAIL INTERN: Nury Leon Refer to Anesthesia Record ESTIMATED BLOOD LOSS: 100 PATHOLOGY: none sent COMPLICATIONS: None Patient was transported to: PACU Patient's condition: stable Implants: 1. Depuy Attune Cruciate Retaining Femoral Component, Size 5 2. Depuy Attune Rotating Platform Tibial Component, Size 5 3. Depuy Attune 5x7 CR,RP Poly 4. Depuy Attune Patellar Component, Size 35 Indications: I have seen Gianna in clinic for symptoms of knee arthritis, confirmed with radiographic findings. She has exhausted nonoperative methods and was having significant limitations in daily function and desired better function and less pain. I discussed the technical details of a knee replacement. I explained the risks of the procedure to include, but not limited to, bleeding, infection, pain, stiffness, fracture, damage to nerves and vessels, damage to muscles and tendons, loosening, need for repeat procedure, blood clot and cardiopulmonary demise. Despite these risks, Gianna elected to proceed. Findings: There was significant signs of arthritis throughout the knee with multiple loose bodies in the suprapatellar pouch.. Procedure Description: Gianna was greeted in the preoperative holding area where the correct side was identified and marked. The consent was reviewed with the patient and signed. The history and physical was updated. All questions were answered. Preoperative mediacations were administered: Acetaminophen 1000mg, Celebrex 400mg, and Gabapentin 300mg. An adductor canal block was then administered by the anesthesia team in the PACU. She was taken back to the operating room. A spinal anesthestic was then administered. The patient was placed into the supine position on the operating room table. A nonsterile tourniquet was placed high onto the leg but only used for cementing. Posts were placed for positioning during the procedure. All bony prominences were well padded. Prophylactic antibiotics in the form of Cefazolin were administered. 1g of Tranxemic Acid was given intravenously within 30 minutes of incision. The left leg was then prepped with Chloraprep and draped in a standard fashion with impervious stockinette and extremity drape. A second prep with Chloraprep was performed prior to placing Ioband. A timeout to confirm correct identity, side and site, procedure, allergies, anesthesia, and medical concerns was performed. With the knee in some flexion, a midline incision was made overlying the knee. Full thickness skin flaps were raised once the extensor mechanism was encountered. These were raised medially and laterally. Any bleeding was controlled with electrocautery. Once the extensor mechanism was fully exposed, a medial parapatellar arthrotomy was performed in a flexed position. All bleeding from the arthrotomy and the geniculate arteries was coagulated. A medial subperiosteal peel was performed with electrocautery to the midcoronal plane. The fat pad was removed while keeping the patellar tendon protected. The anterior distal femur synovium was removed for later visualization. The ACL and PCL were resected and the anterior horn of the lateral meniscus was transected. The knee was then flexed with the patella everted. Large osteophytes from the femur were removed. Multiple, large loose bodies were removed from the suprapatella space. Large ostephtes from around the patella were resected. Using a step drill, and based on preoperative templating, the femoral canal was entered. This was done with a step drill without any difficulty. The intrame dullary distal femoral cut guide was inserted, set to a 5 degree valgus cut and 9mm cut thickness. The distal femoral cut guide was then held in position and pinned. With the soft tissues protected, the distal cut was performed. This was passed over a few times to ensure a planar cut. I then turned attention to the tibia. The extramedullary guide was placed onto the leg. The distal aspect was slid medial to adjust for position of center of ankle and stay in line with shaft of the tibia. Approximately 3-5 degrees of posterior slope was kept in the proximal cutting guide. The center of the guide was aligned with the PCL. The stylus was used to assess cut thickness. The medial side, most involved side, was set for a 6mm cut. This was then held in position and pinned into place wit h 2 additional pins and a cross pin for stability. The medial and lateral collateral ligaments were protected and the cut was performed. With this completed, it was assessed and noted to be of appropriate dimensions. The guide was removed. A spacer block was inserted and the knee was brought into extension. The 7mm spacer block provided full extension, without hyperextension and with stability of both the medial and lateral collateral ligaments was assessed. The pins from the femur and the tibia were then removed. The distal femur was then sized. The anterior stylus was placed onto the lateral ridge of the anterior femur. This indicated a size 5 femur. The external rotation of the guide was adjusted to 3 degrees to match the epicondylar axis, perpendicular to Hartley?s line. The 4-in-1 cutting guide was the placed. The posterior medial femur cut was evaluated and appeared of good thickness. The spacer block was inserted underneath the cutting guide and stability was confirmed in 90 degrees of flexion. An nicole wing was used to confirm appropriate position of the anterior cut to avoid notching. This cutting guide was ensured to be flush on the cut surface and then pinned into place with headed pins. While protecting the soft tissues, quad tendon, and collateral ligaments, the anterior and posterior cuts were performed with a saw. The central two pins were removed and the posterior and anterior chamfers were cut next. The notch-cutting guide was placed. This was pinned to lateralize the femoral component as much as possible while keeping it flush on the cut surface. This was then pinned into position. A reciprocating saw was used to make the small notch cut. A trial CR femoral component was then inserted, impacted down to the cut surfaces, and the lug holes were drilled. A provisional trial tibial component was placed and the knee was brought through range of motion. There was noted to be excellent extension and flexion. There was no significant instability. The patella was tracking without thumbs. The tibial cut surface was fully exposed. The medial and lateral menisci were removed. The tibia was then sized as a 5. The tibia had been previously marked during trialing to correspond to the center of the tibial component to help with rotation. The trial was aligned to this werner, approximately rotated to the medial 1/3rd of the tibial tubercle. The trial was pinned into place. The tibia was prepared with a reamer and a keel punch. The knee was then brought into extension and the patella was measured as 25mm. Using the patellar clamp and cut guide, this was resected to a flat surface with at least 13mm of thickness remaining. The size 35 patella fit the best. This was oriented and then clamped into position. The lugs were drilled. The trial components were removed. The final components, except for the polyethylene were opened on the back table. The periosteal and capsular tissues, especially posteriorly, around the knee were then systematically injected with a periarticular cocktail consisting of 50cc 0.25% Marcaine, 30mg Ketorolac, 20cc of Exparal and 50cc of injectable saline. The tourniquet was th en inflated to 275mmHg. The knee was thoroughly irrigated with a pulse lavage and dried. On the back table, with the implants opened, the cement was mixed. 2 batches of medium viscosity cement were prepared with vacuum assistance. After the cement was ready it was placed on to the back side of the tibial component. A small amount was placed onto the posterior flange of the femur. Cement was manual pressurized and impregnated into the cut surface of the tibia. The tibial component was then inserted into the cut surface and impacted into position. Excess cement was removed and the component was reimpacted. Again, excess cement was removed and our attention was then turned to the femur. The femoral cut surface was once again dried and cement was manually impacted into the cut surface. The femoral component was lined with the lug holes and impacted. Excess cement was removed. It was ensured to be down against the cut surface. The trial polyethylene was then inserted and the leg was brought out into full extension for the duration of the cement curing process, approximately 18min. Cement was lastly manually impacted into the cut surface of the patella and the patellar button was clamped into position and held. During this process attention was turned to the gutters of the knee and for all interfaces for any excess cement. While the cement was hardening, the knee was irrigated with Surgiphor betadine solution. It was allowed to sit in the knee for 3 minutes and then irrigated out completely. After the cement had finally cured, approximately 18min, the clamp was removed from the patella and the knee was taken through range of motion. A size 7mm polyethylene component provided the best range of motion and stability with less than 2mm gapping with medial and lateral stress and full extension without significant hyperextension. The patella was tracking with a no-thumbs technique. The trial poly was removed and once again the knee was checked for any loose, excess, or errant cement. The poly component was then inserted into position after cleaning and drying the tibial tray. The capsule was then reapproximated with a No. 1 Vicryl at multiple locations. The capsule was finally closed with a No. 2 Stratafix, barbed suture. The tourniquet was then released and the arthrotomy appeared watertight without significant bleeding. The second dosing of 1g TXA was started. Deep tissues were then reapproximated with 0 Vicryl and 2-0 Vicryl. The skin was closed with a running 3-0 Monocryl in a subcuticular fashion. This was reinforced with skin glue. A Mepilex silver dressing was applied along with a [id number] ELISABET wrap. A CryoCuff was applied. Gianna was transferred to the hospital bed without difficulty an suffering no apparent complication. Gianna has a good prognosis. Physical therapy will start today and without restrictions, weight-bearing as tolerated. Aspirin 81mg BID will be used for DVT prophylaxis.
[2021-05-27] MEDS: ceFAZolin 1 GM/50 ML BAG IVPB ×2 (16:33→23:46)
[2021-05-27] MEDS: Celecoxib 200 MG CAP PO (20:31)
[2021-05-27] MEDS: Aspirin E.C. 81 MG TABEC PO (20:32)
[2021-05-28 00:01] VITALS: BP 128/67; PULSE 64; RESP 16; TEMP 36.5; O2SAT 97
[2021-05-28] MEDS: Normal Saline Flush 10 ML SYR IV (02:05)
[2021-05-28 03:45] VITALS: BP 101/54; PULSE 62; RESP 18; TEMP 36.6; O2SAT 98
[2021-05-28 07:59] VITALS: BP 105/69; PULSE 76; RESP 16; TEMP 35.8; O2SAT 97
--- NOTE | 2021-05-28 08:11 | DSE_ITS ---
Date of service: 05/28/21 Time of Service: 07:39 DS: Diagnosis Discharge Diagnosis (1) Arthritis of left knee: Status: Chronic Discharge Plan Disposition Patient Disposition: HOME Condition: Stable Discharge Details Reason For Visit: Left TKA Admit Date/Time: 05/27/21 06:47 Admit Provider: Bassem Pastor Attending Provider: Bassem Pastor Primary Care Provider: Cesilia Stokes Hospital Course Hospital Course: Patient was admitted to the medical/surgical floor following the procedure. The surgery was tolerated well without any notable medical, surgical, or anesthetic complications. Mobilization began postoperatively. She was voiding spontaneously. Vitals were stable. Physical therapy worked with the patient and was cleared for discharge home. No acute medical issues. Pain was controlled on oral regimen. Home Meds and New Rx's Prescriptions: New celecoxib [Celebrex] 200 mg capsule 200 mg PO BID Qty: 60 0RF aspirin 81 mg tablet,delayed release (DR/EC) 81 mg PO BID Qty: 60 0RF pantoprazole [Protonix] 40 mg tablet,delayed release (DR/EC) 40 mg PO DAILY Qty: 30 0RF gabapentin 300 mg capsule 300 mg PO QHS Qty: 14 0RF acetaminophen 500 mg capsule 1,000 mg PO Q8H PRN PRNQty: 90 0RF oxycodone 5 mg tablet 5 mg PO Q4H PRNQty: 18 0RF Continued biotin 1 mg capsule 1 mg PO DAILY 0RF vitamin K2 100 mcg capsule 100 mcg PO DAILY 0RF vitamin B complex [B-Complex] 1 EACH tablet 1 ea PO EOD 0RF melatonin 3 MG tablet 4.5 mg PO HS 0RF epinephrine [EpiPen 2-Derrick] 0.3 MG/0.3 ML auto-injector 0.3 mg IM ONCE 0RF Label Comments: pt reports last using it Oct 2019 multivitamin [Multi-Day] 1 EACH tablet 1 tab PO Q2D 0RF calcium carbonate-vitamin D3 1 EACH tablet 2 tab PO DAILY 0RF Fish Oil 300 MG capsule 1,200 mg PO .EVERY OTHER DAY 0RF Forteo 20 mcg/dose - 600 mcg/2.4 mL Pen Injector 600 mcg SUBCUT DAILY 0RF epinephrine 0.3 mg/0.3 mL auto-injector 0.3 ml SC ONCE PRN (Reason: anaphylaxis) Qty: 2 0RF Rx Instructions: as a single dose; may repeat once Discontinued ibuprofen 400 mg Tablet 400 mg PO BID PRN0RF Discharge Instructions Additional Instructions: Total Knee Discharge Instructions Activity: The most important activity is to walk. You should try to take short walks a few times a day. It is important that when resting you work on keeping the knee straight. Avoid putting a pillow behind the knee as this will encourage flexion. Work on range of motion exercises as provided by [facility] and [employer]. You should try for 3-5 activities per day - short walk, exercise, ROM Tech. Moderate what you do based on your pain/symptoms. If you have the ROM Tech bike coming, this will be your primary tool for exercise after the knee replacement. You should use it and follow the directions for the knee. Utilize the other exercises sparingly based on your symptoms. - Start outpatient physical therapy within 2 weeks. - You should wear the LIONEL hose on both legs for 2 weeks. You may remove these at night. You may also use any compression sock in place of the LIONEL hose. - Utilize [employer] to review exercises, see videos on exercises and obtain basic information pertaining to your surgery and your recovery. Dressing: Keep the surgical dressing (underneath the ELISABET wrap) in place for at least one week. After the first week it may be removed and replaced with light gauze and tape or nothing. The wound and dressing may get wet after 3 days but avoid soaking the dressing or otherwise it will need to be changed. Many people prefer covering the dressing with cling wrap (saran wrap) to minimize it from getting soaked. If it gets wet, just pat dry. If it starts to peel off then it will need to be changed. Medications: - You should take Tylenol and anti-inflammatory Celebrex as your primary pain control medications. If the Celebrex is too expensive or not covered, please call the office for another alternative (Advil/Ibuprofen or Naproxen/Aleve) - You have been prescribed a stronger pain medication Oxycodone for breakthrough pain, take as needed as prescribed. - You have also been prescribed a stomach acid reduction agent Pantoprozole to help reduce stomach acid and reflux. - You have been prescribed Gabapentin to take at night for restlessness and nerve pain. This can make you drowsy or have vivid dreams in some people. If you are sleeping well, you can stop this medication. - You will be taking Aspirin 81mg twice a day for DVT prevention unless instructed otherwise. - If you have constipation you should take Colace or Miralax (both [id number]). It takes most people 3-4 days to have a bowel movement. Follow-up: 2 weeks If you have any acute concerns or questions, please do not hesitate to contact the office at [phone]. You may contact Dr. Pastor with any questions after hours through the hospital at [phone] or on his cell phone at [phone]. Referrals: Bassem Pastor MD [ [facility] STAFF PHYSICIAN] - Activity:: Activity as Tolerated Equipment/Supplies:: Walker Diet:: As Tolerated Discharge Orders Discharge Orders: Discharge Order (Routine); Ordered 05/28/21 Ordered By: Bassem Pastor DS: Summary Time Spent with Patient providing and/or coordinating discharge services: Less than 30 minutes Status at Discharge Functional status at discharge: uses cane/walker Overall status at discharge: patient is progressing back to baseline Mental Status: mental status grossly normal Speech and Movement: speech and movement normal Mood: congruent mood Affect: normal affect Exam Const General: cooperative, healthy appearing, comfortable and no acute distress Nutritional Appearance: well nourished [facility] Head: normal to inspection, normocephalic and atraumatic Extrem Other: LLE dressing c/d/i. ROM 5-95. +SLR. +ADF/APF/EHL/FHL. Psych Mental Status: mental status grossly normal Speech and Movement: speech and movement normal Mood: congruent mood Affect: normal affect DS: Data Vitals/I&O Vitals and I&O: Vital Signs Temperature 35.8 C L 05/28/21 07:59 Temperature Source Tympanic 05/28/21 07:59 Pulse 76 05/28/21 07:59 Pulse Rhythm Regular 05/28/21 01:00 Respiratory Rate 16 05/28/21 07:59 Respiratory Effort Non-Labored 05/28/21 01:00 Respiratory Depth Normal 05/28/21 01:00 Respiratory Pattern Normal 05/28/21 01:00 Blood Pressure 105/69 05/28/21 07:59 Blood Pressure Mean 89 05/27/21 09:45 Blood Pressure Position Sitting 05/27/21 09:45 Pulse Oximetry 97 05/28/21 07:59 Respiratory End-tidal CO2 30 05/27/21 13:05 Oxygen Delivery Method Room Air 05/28/21 07:59 Oxygen Flow Rate 0 05/28/21 07:59 Pain Level 2 05/28/21 07:59 Comment Nerve block performed by Shanell Pierce CRNA & Tony GARCIA No issues with nerve block procedure. Pt denies ringing in ears, metallic taste, numbness. Pt. reports feeling foggy. Pt. effectively used visual meditation for calming herself. 05/27/21 09:45 Intake & Output 05/27/21 05/27/21 05/28/21 11:59 23:59 11:59 Intake Total 1110 / 3268 2158 / 3268 250 / 250 Output Total 100 / 1400 1300 / 1400 450 / 450 Balance 1010 / 1868 858 / 1868 -200 / -200 Weight 67.2 kg 66.224 kg Intake: IV 1110 / 3028 1918 / 3028 Oral 240 / 240 250 / 250 Output: Urine 1300 / 1300 450 / 450 Estimated Blood Loss 100 / 100 Other: Urine Color Yellow Straw Urine Appearance Clear Clear Urine Odor Normal Normal Comment pt also voided on toilet when oob this am; urine documented was left in the hat in the toilet Emesis Description None Voiding Methods Toilet Toilet PFSH All Active Problems Arthritis of left knee (Chronic) Corticosteroid injection: 11/11/2020; 02/12/2019; 04/05/18 Onychogryphosis (Chronic) Left lower lobe pulmonary nodule (Acute) Intermittent palpitations (Acute) 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 Pastor Social History Smoking/Tobacco Use Status: Never Smoking risk assessment performed?: Yes Alcohol Intake: current Alcohol Intake frequency: 0-2 drinks per day Alcohol type: wine Details: drinks one glass of wine nightly Drug use: Never Substance use type: does not use Current gender identity: female Do you feel safe at home: Yes (lives alone) Do you feel safe in your relationship?: Yes
[2021-05-28] MEDS: Acetaminophen 500 MG TAB 1000 MG PO ×2 (08:14→13:41)
[2021-05-28] MEDS: Pantoprazole 40 MG TABCR PO (08:14)
[2021-05-28] MEDS: Celecoxib 200 MG CAP PO (08:14)
[2021-05-28] MEDS: Aspirin E.C. 81 MG TABEC PO (08:14)
[2021-05-28] MEDS: ceFAZolin 1 GM/50 ML BAG IVPB (08:14)
--- NOTE | 2021-05-28 09:03 | INDS_ITS ---
Date of service: 05/28/21 PT Notes Visit Reasons: Left TKA Physical Therapy Inpatient Initial Evaluation Date: 05/27/2021 Referring Doctor:? PATTIE Townsend PT Orders: PT CONSULT: Status post Ortho surgery Precautions: Fall. Standard.? WBAT on left LE with AD. Subjective: Agreeable to PT session.? Feels a lot better today. Comfortable about going home with support from daughter as needed. Objective: General Observation: Supine in bed.? ELISABET wraps to left LE.? Cryocuff to left knee.? IV to right UE.? TEDS on right leg. Mental Status: Alert and oriented as to person, place, time, and purpose. Able to pay attention, focus, and respond appropriately. Pain: 2/10 in left knee at rest , up to 6/10 with ambulation and movement transitions Vital Signs: Within normal limits closely monitored by nurse [place] ROM: Right Lower Extremity: Hip flexion WFL. Hip abduction WFL. Knee flexion WFL. Ankle dorsiflexion WFL. Ankle plantarflexion WFL. Left Lower Extremity: Hip flexion WFL. Hip abduction WFL. Knee flexion 10 degrees to 100 degrees.? Knee extension -10 degrees.? Ankle dorsiflexion WFL. Ankle plantarflexion WFL. Strength: Right Lower Extremity: Hip flexors 5/5. Hip abductors 5/5. Knee flexors 5/5. Knee extensors 5/5. Ankle dorsiflexors 5/5. Ankle plantarflexors 5/5. Left Lower Extremity: Hip flexors 5/5. Hip abductors 5/5. Knee flexors 3-/5. Knee extensors 3-/5. Ankle dorsiflexors 5/5. Ankle plantarflexors 5/5. Sensation: Intact as to pain and light touch in both bilateral lower extremities Bed Mobility/Transfers: Supine to sit with supervision Sit to stand with supervision Stand to sit with supervision Bed to reclining chair with supervision Gait: Instructed patient with level surface ambulation of 350 feet requiring stand by assist. Better hand placement and walker management observed. Stairs: Up and down 6 x 4-inch steps and 4 x 6-inch steps using step-to gait pattern while holding onto 1 rail with stand by assist. Balance: Static Sitting: Normal Dynamic Sitting: Normal Static Standing: Fair Dynamic Standing: Fair Assessment:? Needs moderate verbal cueing to use B hands for support to minimize pain felt in L knee during movement transitions and use of FWW duirng ambulation activity.? Can be impulsive,? needs repetitive cueing to comply with safety techniques for mobility performance.? Gianna demonstrates functional mobility decline requiring the use of front wheeled walker for mobility ADL performance.? Patient presents with clinical signs and symptoms consistent with current/admitting diagnoses that have resulted to mobility limitations, gait instability, generalized weakness, and overall ADL decline as demonstrated by the following impairment level findings: 1.? Decreased strength to left kneemajor muscle groups 2.? Impaired standing balance 3.? Impaired activity tolerance 4.? Limitation of joint range of motion in left knee 5.? Pain in L knee and thigh Impairments are contributing to the following functional limitations: 1.? Decline in bed mobility skills 2.? Decline in transfer skills 3.? Difficulty with ambulation without assistive device and physical assistance 4.? Increased completion time for mobility ADL performance 5.? Increased risk for falls 6.? Difficulty with managing steps alone safely Goals: Goals X1 week 1. Supine-Sit independent NOT MET 2. Sit-Supine independent NOT MET 3. Sit-Stand independent NOT MET 4. Stand-Sit independent with FWW NOT MET 5. Bed-Chair independent with FWW NOT MET 6. Chair-Bed independent with FWW NOT MET 7. Independent gait on level surface with use of FWW for at least 300 feet without report of pain nor dyspnea NOT MET 8. Independent stair negotiation while holding onto 1 rail for at least 3 steps without report of pain nor dyspnea NOT MET 9. Independent with home exercise program NOT MET 10. Good static and dynamic standing balance/tolerance NOT MET DISCHARGE RECOMMENDATIONS: [] ? Home with no services [] [] ? Home with services [specify] [X] ? Home with outpatient PT.? Home when medically cleared by orthopedic surgeon.? Will benefit from outpatient PT services to facilitate return to independent community ambulation without an assistive device. [] ? SNF for continued rehabilitation [] [] ? Shelter Care [] [] ? SNF versus LTC based on ability to participate and progress [] TREATMENT CODE/TIME: 37633 x 42 minutes beginning at 9:03 AM. Thank you for the opportunity to participate in the care of this patient. Alessandra Galan PT, DPT, CLT [facility] [place]
[2021-05-28 11:13] VITALS: BP 114/68; PULSE 62; RESP 16; TEMP 36.9; O2SAT 100
[2021-05-28] MEDS: Docusate Sodium 100 MG CAP PO (11:15)
[2021-05-28] MEDS: oxyCODONE 5 MG TAB PO (11:15)
--- NOTE | 2021-05-28 12:03 | W.ANESPOSTOP ---
Postoperative Evaluation Date, Time and Location Date Performed: 05/28/21 Time Performed: 12:04 Patient Location: Med/Surg Vital Signs Most Recent Imported Vital Signs: Most Recent Vital Signs Temp Pulse Resp BP Pulse Ox 36.9 C 62 16 114/68 100 05/28/21 11:13 05/28/21 11:13 05/28/21 11:13 05/28/21 11:13 05/28/21 11:13 Pain Score Most Recent Pain Score: Most Recent Pain Score Pain Level 5 05/28/21 11:15 Assessment Mental Status: Awake (Alert & Oriented to Patient Baseline) Airway and Respiratory Function: Patent airway with normal (patient baseline) respiratory exam Cardiovascular Function: Hemodynamically Stable Hydration Status: Adequately Hydrated Nausea & Vomiting: No Nausea or Vomiting Pain: Pain is tolerable per patient Peripheral Nerve Block: Other (Block has worn off)
== END 2021-05-28 13:40 | disposition home or self-care (01) ==
LOC: PDS 08:34 → MS 15:44 → PDS 05-29 09:37 → MS 05-29 09:38
PROVIDERS: Admitting Provider Student in an Organized Health Care Education/Training Program; PCP Family Medicine; Visit Provider Student in an Organized Health Care Education/Training Program
PROC: 0SRD0J9 Replacement of Left Knee Joint with Synthetic Substitute, Cemented, Open Approach (ICD-10-PCS; CPT 27447; principal; 2021-05-27 09:45)
DX: M17.12 Unilateral primary osteoarthritis, left knee (principal); R91.1 Solitary pulmonary nodule; R00.2 Palpitations
CPT/HCPCS: 27447; 76942; 97163; 97530; J0690; J1885; J2001; J2250; J2405

== ENCOUNTER 2021-06-11 11:02 | Outpatient (CLI) | payer MEDICARE, SELFPAY ==
--- NOTE | 2021-06-11 10:00 | DI.RAD_ITS ---
Exam(s) XR KNEE LT 1V EXAM: XR KNEE LT 1V CLINICAL HISTORY: 1ST POST OP L TKA. TECHNIQUE: 2D digital imaging was performed. COMPARISON: CR XR KNEE LT 1V from 01/05/2021 FINDINGS: Single lateral view Components of the prosthesis appear to be satisfactory position on this single view. IMPRESSION: DATA REPOSITORY: RADIATION DOSE DELIVERED:
--- NOTE | 2021-06-11 10:15 | DI.RAD_ITS ---
Exam(s) XR STANDING ALIGNMENT EXAM: XR STANDING ALIGNMENT CLINICAL HISTORY: 1ST POST OP L TKA. TECHNIQUE: 2D digital imaging was performed. COMPARISON: CR XR STANDING ALIGNMENT from 01/05/2021 FINDINGS: There are now bilateral knee prostheses. These appear to be in satisfactory position. Both hips juanpablo ear unremarkable. Ankles exhibits some medial tilting, more so on the left side. No abnormality the talar domes evident. No significant osseous lesions. Hip joints appear similar height without asym metry. IMPRESSION: DATA REPOSITORY: RADIATION DOSE DELIVERED:
== END 2021-06-11 11:03 | disposition home or self-care (01) ==
LOC: DIORS 11:02
PROVIDERS: PCP Family Medicine; Referring Provider Family Medicine; Visit Provider Student in an Organized Health Care Education/Training Program
DX: Z96.652 Presence of left artificial knee joint (principal); Z47.1 Aftercare following joint replacement surgery
CPT/HCPCS: 73560; 77073

== ENCOUNTER → 2021-07-09 10:57 | Outpatient (BNVA) | payer MEDICARE, SELFPAY | PROVIDERS: PCP Family Medicine; Referring Provider Family Medicine; Visit Provider Student in an Organized Health Care Education/Training Program | DX: Z47.1 Aftercare following joint replacement surgery (principal); Z96.652 Presence of left artificial knee joint ==

== ENCOUNTER 2021-07-30 12:14 | Outpatient (CLI) | payer MEDICARE, SELFPAY ==
--- NOTE | 2021-07-30 12:00 | DI.RAD_ITS ---
Exam(s) XR TIB/FIB LT EXAM: XR TIB/FIB LT CLINICAL HISTORY: LEFT KNEE PAIN TECHNIQUE: COMPARISON: CR XR STANDING ALIGNMENT from 06/11/2021 FINDINGS: Two views were obtained. 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 No significant bony o r soft tissue abnormality seen involving the bones of the leg. IMPRESSION: RADIATION DOSE DELIVERED: Total DLP
--- NOTE | 2021-07-30 12:00 | DI.RAD_ITS ---
Exam(s) XR KNEE LT 3V AP,LAT,TONY EXAM: XR KNEE LT 3V AP,LAT,TONY CLINICAL HISTORY: LEFT KNEE PAIN TECHNIQUE: COMPARISON: CR XR KNEE LT 1V from 06/11/2021 FINDINGS: Three views were obtained. 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 The components appe ar well seated. No other significant bony abnormality seen. IMPRESSION: RADIATION DOSE DELIVERED: Total DLP
== END 2021-07-30 12:15 | disposition home or self-care (01) ==
LOC: DIORS 12:14
PROVIDERS: PCP Family Medicine; Referring Provider Family Medicine; Visit Provider Physician Assistant
DX: Z96.652 Presence of left artificial knee joint (principal)
CPT/HCPCS: 73562; 73590

== ENCOUNTER → 2021-08-21 09:58 | Outpatient (BNVA) | payer MEDICARE, SELFPAY | PROVIDERS: PCP Family Medicine; Referring Provider Family Medicine; Visit Provider Student in an Organized Health Care Education/Training Program | DX: Z96.652 Presence of left artificial knee joint (principal); M23.8X2 Other internal derangements of left knee ==

== ENCOUNTER → 2021-10-16 09:34 | Outpatient (BNVA) | payer MEDICARE, SELFPAY | PROVIDERS: PCP Family Medicine; Referring Provider Family Medicine; Visit Provider Student in an Organized Health Care Education/Training Program | DX: Z47.1 Aftercare following joint replacement surgery (principal); Z96.652 Presence of left artificial knee joint; M23.8X2 Other internal derangements of left knee | CPT/HCPCS: 99212 ==

== ENCOUNTER 2021-10-23 19:07 | Outpatient (REF) | payer MEDICARE, SELFPAY | END 2021-10-23 19:08 | disposition home or self-care (01) | LOC: NCHCN 19:07 | PROVIDERS: PCP Family Medicine; Visit Provider Family Medicine | DX: N39.0 Urinary tract infection, site not specified (principal) | CPT/HCPCS: 87086 ==

== ENCOUNTER → 2021-11-11 01:14 | Outpatient (CLI) | payer MEDICARE, SELFPAY ==
--- NOTE | 2021-11-11 | DI.US_ITS ---
Exam(s) US THYROID EXAM: US THYROID CLINICAL HISTORY: THYROID NODULE E04.1 TECHNIQUE: Ultrasound performed using standard protocol. COMPARISON: US US OR ANESTHESIA from 01/10/2018 FINDINGS: Thyroid ultrasound was performed according to the usual protocol. Right thyroid lobe measures 46 x 14 x 14 millimeters and left thyroid lobe measures 44 x 12 x 13 mill imeters. The isthmus is 2 millimeters in thickness. Thyroid parenchyma is predominantly homogeneous. There are a few tiny nodules, the largest is a 6 mi llimeter in diameter solid nodule of the lower pole of the right thyroid lobe, this is isoechoic and wider than tall with smooth margins and a macrocalcification. TR 4 lesion, no follow up recommended at this lesion size. There is also a 6 millimeter nodule of the left thyroid lobe, this is also a TR 4 lesion which is of mixed cystic and solid echogenicity. No follow-up recommended. IMPRESSION: thyroid nodules are noted as described above, no follow up recommended as per TI-RADS recommendation s. DATA REPOSITORY:
== END ==
PROVIDERS: PCP Family Medicine; Visit Provider Family Medicine
DX: E04.1 Nontoxic single thyroid nodule (principal)
CPT/HCPCS: 76536

== ENCOUNTER 2021-12-08 16:17 | Outpatient (REF) | payer MEDICARE, SELFPAY ==
[2021-12-08 15:00] LABS: HCT 41.3 % (36.0-46.0); HGB 13.5 g/dL (11.2-15.7); MCH 31.3 pg (27.0-33.0); MCHC 32.7 % (32.0-36.0); MCV 96 fL (80-95); MPV 9.8 fL (8.0-11.0); Platelet Count 289 10^3/uL (130-400); RBC 4.31 10^6/uL (3.93-5.22); RDW 13.8 % (11.7-14.6); RDW-SD 49.4 fL; WBC 4.79 10^3/uL (4.4-10.8)
[2021-12-08 15:48] LABS: ALT 99 U/L (14-59); AST 37 U/L (15-37); Albumin 3.9 g/dL (3.4-5.0); Alkaline Phosphatase 111 U/L (46-116); Anion Gap 5.8 mmol/L (3-11); BUN 17 mg/dL (7-18); Bilirubin, Total 0.5 mg/dL (0.2-1.0); CO2 31.2 mmol/L (21.0-32.0); CREATININE 0.6 mg/dL (0.55-1.02); Calcium 9.4 mg/dL (8.5-10.1); Calculated LDL 68 mg/dL (<100); Chloride 105 mmol/L (98-107); Cholesterol 160 mg/dL (<200); Estimated GFR 92.97 (mL/min/1.73m2); Glucose 86 mg/dL (74-106); HDL Cholesterol 83 mg/dL (40-60); Potassium 4.4 mmol/L (3.5-5.1); Sodium 142 mmol/L (136-145); Triglyceride 45 mg/dL (<150)
[2021-12-10 06:29] LABS: Vitamin D 25 Total 46.7 ng/mL (30-100)
== END 2021-12-08 16:18 | disposition home or self-care (01) ==
LOC: NCHCN 16:17
PROVIDERS: PCP Family Medicine; Visit Provider Family Medicine
DX: E78.5 Hyperlipidemia, unspecified (principal); E04.1 Nontoxic single thyroid nodule
CPT/HCPCS: 80053; 80061; 82306; 85027

== ENCOUNTER → 2021-12-18 10:19 | Outpatient (BNVA) | payer MEDICARE, SELFPAY | PROVIDERS: PCP Family Medicine; Referring Provider Family Medicine; Visit Provider Student in an Organized Health Care Education/Training Program | DX: Z96.652 Presence of left artificial knee joint (principal) | CPT/HCPCS: 99213 ==

== ENCOUNTER 2023-11-10 22:09 | Outpatient (REF) | payer MEDICARE, SELFPAY ==
--- OUTSIDE RECORDS SUMMARY | 2023-11-10 22:13 | XMS_ITS | Encounter Summary ---
Author [place] [address] Care Team Providers Care [employer] Co[employer] Supervisor Name Role Phone Cesilia Stokes MD Primary Care Provider [phone] Encounter Details Date Type Department Care Team (Latest Contact Info) Description 06/16/2021 12:25 PM EDT Laboratory Appointment Lab [address] [place] [address] Osteoporosis, unspecified osteoporosis type, unspecified pathological fracture presence Social History Tobacco Use Types Packs/Day Years Used Date Smoking Tobacco: Never Smokeless Tobacco: Never Alcohol Use Standard Drinks/Week Comments Yes 7 (1 standard drink = 0.6 oz pur e alcohol) 1/day Sex and Gender Information Value Date Recorded Sex Assigned at Female 05/27/2020 7:34 AM EST Gender Identity Not on file Sexual Orientation Straight 05/27/2020 7: 34 AM EST documented as of this encounter Plan of Treatment Not on file documented as of this encounter Procedures Procedure Name Priority Date/Time Associated Diagnosis Comments HC CREATININE STAT 06/16/2021 12:16 PM EDT Osteoporosis, unspecified osteoporosis type, unspecified pathological fracture presence HC CALCIUM, SERUM STAT 06/16/2021 12: 16 PM EDT Osteoporosis, unspecified osteoporosis type, unspecified pathological fracture presence documented in this encounter Results * Calcium (06/16/2021 12:16 PM EDT) Calcium 9.7 8.5 - 10.5 mg/dL [facility] Blood 06/16/2021 12:1 6 PM EDT 06/16/2021 12:28 PM EDT Narrative Resulting Agency Comment Spec In Lab Juan Antonio Alvarez MD CHEMISTRY ORDERABLES Performing Organization Address City/[facility]/ZIP Co de Phone Number [facility] [place] [address] * (ABNORMAL) Creatinine (06/16/2021 12:16 PM EDT) Creatinine 0.58(L) 0.70 - 1.20 mg/dL [facility] Est Glomerular Filtration Rate 90 >=60 mL/min/1. 73 m?? [facility] Comment: This patient? s estimated glomerular filtration rate (eGFR) is between 90 mL/min/1.73 m2 (patients with less muscle mass) and 104 mL/min/1.73 m2 (patients with more muscle mass) as determined by the CKD-EPI equation. Assessment of eGFR is not appropriate when creatinine concentrations are rapidly changing. For clinical decisions where creatinine clearance will affect therapy, a 24-hour urine creatinine clearance may be advised. Assignment of CKD stage 1 - 5 for patients with an eGFR near the transition point between stages may be based on clinical assessment of muscle mass and symptoms in addition to eGFR. Blood 06/16/2021 12:1 6 PM EDT 06/16/2021 12:28 PM EDT Narrative Resulting Agency Comment Spec In Lab Juan Antonio Alvarez MD CHEMISTRY ORDERABLES [facility] [place] [address] documented in this encounter Visit Diagnoses Diagnosis Osteoporosis, unspecified osteoporosis type, unspecified pathological fracture presence documented in this encounter Care Teams [employer] Supervisor Relationship Specialty Start Date End Date Cesilia Stokes MD [address] [place] [id number] PCP - General Family Medicine 01/09/21 documented as of this encounter
--- OUTSIDE RECORDS SUMMARY | 2023-11-10 22:13 | XMS_ITS | Encounter Summary ---
Author Organization [facility] Address [facility] [place] [address] Care Team Providers Care Quirk Sander Name Role Phone Cesilia Stokes MD Primary Care Provider Encounter Details Date Type Department Care Team (Late st Contact Info) Description 07/21/2021 Orders [place] [address] Juan Antonio Alvaerz MD [facility] [place] [address] Social History Tobacco Use Types Packs/Day Years [...] on file documented as of this encounter Visit Diagnoses Not on filedocumented in this encounter Care Teams Quirk Sander Relationship Specialty Start Date End Date Cesilia Stokes MD [address] [place] [address] PCP - General Family Medicine 01/09/21 documented as of this encounter
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
--- OUTSIDE RECORDS SUMMARY | 2023-11-10 22:13 | XMS_ITS | Encounter Summary ---
Author [place] [address] Care Team Providers Care Form Grader Name Role Phone Cesilia Stokes MD Primary Care Provider [phone] Reason for Referral * Diagnostic Test (Routine) - Closed Specialty Diagnoses / Procedures Referred By Contac t Referred To Contact Radiology Diagnoses Anomia Family history of dementia Mild cognitive impairment Procedures MRI Brain wo Contrast MRI Brain wo Contrast Eliane Wallace APRN [facility] [place] [address] [place] [address] Referral ID Status Reason Start Date Expiration Date V isits Requested Visits Authorized [id number] Closed Specialty Service Requested 06/16/2021 12/17/2022 1 1 Reason for Visit * Diagnostic Test (Routine) - Closed Specialty Diagnoses / Procedures Referred By Contac t Referred To Contact Radiology Diagnoses Anomia Family history of dementia Mild cognitive impairment Procedures MRI Brain wo Contrast MRI Brain wo Contrast Eliane Wallace APRN [facility] [place] [address] [place] [address] Referral ID Status Reason Start Date Expiration Date V isits Requested Visits Authorized [id number] Closed Specialty Service Requested 06/16/2021 12/17/2022 1 1 Encounter Details Date Type Department Care Team (Latest Contact Info) Description 10/28/2021 3:12 PM EDT - 10/28/2021 11:59 PM EDT Hospital Encounter MRI at [facility] [place] [address] Eliane Wallace APRN [facility] [place] [address] Anomia; Family history of dementia; Mild cognitive impairment Discharge Disposition: Home Social History Tobacco Use Types Packs/Day Years [...] AM EST documented as of this encounter Medications at Time of Discharge Medication Sig Dispensed Refills Start Date End Date atorvastatin (Lipitor) 40 mg Tablet 09/18/2021 melatonin 5 mg Tablet Take 5 mg by mouth nightly. magnesium 250 mg Tablet Take by mouth. vitamin K2 40 mcg Tablet Take by mouth. pilocarpine (Pilocar) 1 % Drops Place 1 drop into both eyes nightly as needed. 15 mL 12/19/2020 cholecalciferol, vitamin D3, (VITAMIN D3 ORAL) Take by mouth. docosahexaenoic acid/epa (FISH OIL ORAL) Take by mouth. mv,calcium,min/iron/foli c/vitK (MULTI FOR HER ORAL) Take by mouth. cyanocobalamin, vitamin B-12, (VITAMIN B12 ORAL) Take by mouth. calcium carbonate/vitamin D3 (CALCIUM 500 + D, D3, ORAL) Take by mouth. BIOTIN ORAL Take by mouth. ibuprofen (ADVIL;MOTRIN) 800 mg Tablet Take 800 mg by mouth 3 times daily. EPINEPHrine 0.3 mg/0.3 mL Auto-Injector Inject 0.3 mg into the muscle once as needed. Inject 0.3 mL IM once as needed for allergic reaction (Throat tight, difficulty breathing). Call 911 as directed. documented as of this encounter Plan of Treatment Not on file documented as of this encounter Procedures Procedure Name Priority Date/Time Associated Diagnosis Comments MRI BRAIN WO CONTRAST Routine 10/28/2021 3:55 PM EDT Anomia Family history of dementia Mild cognitive impairment documented in this encounter Results * MRI Brain wo [...] who have questions please contact the health team primary care physician that requested your imaging first. ? Narrative [...] patients who have questions please contactthe health team primary care physician that requested your imaging first. Eliane Balderas Delfinoadiel EARL IMG MRI ORDERABLES documented in this encounter Visit Diagnoses Diagnosis Anomia Other symbolic dysfunction Family history of dementia Family history of other neurological diseases Mild cognitive impairment Mild cognitive impairment, so stated documented in this encounter Care Teams Form Grader Relationship Specialty Start Date End Date Cesilia Stokes MD [address] [place] [address] PCP - General Family Medicine 01/09/21 documented as of this encounter
--- OUTSIDE RECORDS SUMMARY | 2023-11-10 22:13 | XMS_ITS | Clinical Summary ---
Author Organization [facility] Address [facility] [place] [address] Care Team Providers Care Abstract Clerk Name Role Phone Cesilia Stokes MD Primary Care Provider [phone] Allergies Active Allergy Reactions Criticality Noted Date Comments Allergen Umw-Pkzyx-Qcgvs Bee Anaphylaxis High 2021 Hymenoptera Allergenic Extract 03/30 Fluoxetine Other (See Comments) High 05/19/2021 Paranoid Wasp Venom 03/30/2018 Medications Medication Sig Dispensed Refills Start Date End Date Status ibuprofen (ADVIL;MOTRIN) 800 mg Tablet Take 800 mg by mouth 3 times daily. Active EPINEPHrine 0.3 mg/0.3 mL Auto-Injector Inject 0.3 mg into the muscle once as needed. Inject 0.3 mL IM once as needed for allergic reaction (Throat tight, difficulty breathing). Call 911 as directed. Active cholecalciferol, vitamin D3, (VITAMIN D3 ORAL) Take by mouth. Active docosahexaenoic acid/epa (FISH OIL ORAL) Take by mouth. Active mv,calcium,min/iron/ folic/vitK (MULTI FOR HER ORAL) Take by mouth. Active cyanocobalamin, vitamin B-12, (VITAMIN B12 ORAL) Take by mouth. Ac tive calcium carbonate/vitamin D3 (CALCIUM 500 + D, D3, ORAL) Take by mouth. Active BIOTIN ORAL Take by mouth. Active pilocarpine (Pilocar) 1 % Drops Place 1 drop into both eyes nightly as needed. 15 mL 12/19/2020 Active melatonin 5 mg Tablet Take 5 mg by mouth nightly. Active magnesium 250 mg Tablet Take by mouth. Active vitamin K2 40 mcg Tablet Take by mouth. 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 Immunizations Name Administration Dates Next Due Moderna Covid-19 Monovalent 12Yr+ (Process Description Writer 100mcg) 07/16/2021,01/17/2021,06/13/2020, 021 Family History Medical History Relation Comments Heart Disease Father Hypertension Father Amblyopia Mother Cataracts Mother Strabismus Mother Breast Cancer Neg Hx Cancer Neg Hx Diabetes Neg Hx Glaucoma Neg Hx Macular Degeneration Neg Hx Retinal Detachment Neg Hx Thyroid Disease Neg Hx Relation Status Comments Father Mother Social History Tobacco Use Types Packs/Day Years Used Date Smoking Tobacco: Never Smokeless Tobacco: Never Alcohol Use Standard Drinks/Week Comments Yes 7 (1 standard drink = 0.6 oz pur e alcohol) 1/day Sex and Gender Information Value Date Recorded Sex Assigned at Female 05/27/2020 7:34 AM EST Gender Identity Not on file Sexual Orientation Straight 05/27/2020 7: 34 AM EST Last Filed Vital Signs Vital Sign Reading Time Taken Comments Blood Pressure 133/74 10/21/2021 2:27 PM EDT Pulse 66 10/21/2021 2:27 PM EDT Temperature 36.4 ??C (97.6 ??F) 06/25/2021 7:44 AM ED T Respiratory Rate 15 06/25/2021 7:44 AM EDT Oxygen Saturation 100% 06/25/2021 7:44 AM EDT Inhaled Oxygen Concentration - - Weight 67.5 kg (148 lb 12.8 oz) 10/21/2021 2:27 PM EDT Height 175.3 cm (5' 9) 10/21/2021 2:27 PM EDT Body Mass Index 21.97 10/21/2021 2:27 PM EDT Plan of Treatment Health Maintenance Due Date Last Done Comments Hepatitis C Screening 11/05/1963 Tdap adult 1964 Tetanus vaccine 1964 Zoster vaccine (1 of 2) 11/05/1995 Advance Directive 2000 Pneumoccocal Vaccine: 65+ (1 of 1 - PCV) 2010 Covid-19 Vaccine (2022-2 4 season) 2023 12/21/2022, 07/17/2022, 07/16/2021, Additional history exists Influenza (Flu) vaccine (1 o f 1 - Influenza standard series) 11/27/2023 Bone Density Scan 06/16/2036 06/16/2021 Breast Cancer screening Discontinued 04/10/19, 04/09/2020, 03/30/2018, Additional history exists Medical Devices Implanted Type Area Final Installer Inspector Device Identifier Shelf Expiration Date Model / Serial / Lot Lens Iol [id number] +18.5d 6.0x13.0 Monofocal Post Biconvex ([id number]) (Autoreq) - [id number] Implanted:Qty: 1 on 05/28/2020 by Jaden Garcia MD at [facility] IMPLANTS Left: Eye NOVARTIS - NOVARTIS 12/18/2024 [id number] / [id number] / Lens Iol [id number] +19.0d 6.0x13.0 Monofocal Post Biconvex ([id number]) (Autoreq) - [id number] Implanted:Qty: 1 on 06/25/2020 by Jaden Garcia MD at [facility] IMPLANTS Right: Eye JAVIER Helpr - JAVIER 01/09/2025 [id number] 0 / [id number] / Procedures Procedure Name Priority Date/Time Associated Diagnosis Comments DXA CENTRAL SPINE, HIP, AND/OR WHOLE BODY (GENERIC) Routine 06/16/2021 2:33 PM EDT Osteoporosis, unspecified osteoporosis type, unspecified pathological fracture presence MAMMO SCREENING CAD AND FABIO BILATERAL Routine 04/10/2021 2:10 PM EST Encounter for screening mammogram for malignant neoplasm of breast from Last 3 Months or Most Recently Relevant to Health Maintenance Results * DXA Central Spine, Hip, and/or Whole Body (Generic) (06/16/2021 2:33 PM EDT) Anatomical Region Laterality Modality C-spine, Hip N/A Other Impressions 06/16/2021 3:29 PM EDT Measurements meet WHO criteria for osteoporosis. Estimating Fracture Risk: ? The relationship between bone mineral density (BMD) and risk of fracture is well established. As BMD decreases, risk increases. Quantifying risk is difficult and is usually limited to estimation of the relative risk - a term which may have limited value when trying to discuss an individual's risk. Estimating the absolute risk for a patient requires an understanding of the incidence rate in a given population and consideration of multiple, partially independent, risk factors in addition to BMD. ? The World Health Organization (WHO) has developed a fracture risk prediction tool that calculates a ten-year risk of major osteoporotic fracture based on femoral neck bone density measurements and nine clinical risk factors for individuals who have not been treated for osteoporosis. This is available through an interactive web-based interface (http://www.shef.ac.uk/FRAX/) and can be used to estimate a given patient's absolute risk of major osteoporotic fracture or hip fracture over the next 10 years. These estimates may prove useful when discussing risk with a patient. It is important, however, to understand the tool's limitations and how a given individual's risk might differ from the tool's estimate. The tool does not take into account the dose-response associated with most risk factors. For example, the significant increase in risk associated with multiple prior fractures compared to a single prior fracture is not taken into account. Similarly, the location of a previous fracture, the amount of glucocorticoids and number of cigarettes smoked are not considered. These limitations are discussed in a Frequently Asked Questions section of the FRAX website which you are encouraged to review. ? DEXA data sheets with BMD measurements and plots are available in E-DH under the imaging tab. Paper copies will be sent to providers without E- access. If you have received this report without the data sheet and do not have access to E-, please contact Radiology [facility] at [phone] Tuesday thru Tuesday 8am-4pm. Thank you for letting us participate in the care of this patient. ??If you are a health care provider and have any questions regarding this report, please contact the number below. ??For patients who have questions please contact the health out of school hours care worker that requested your imaging first. ? Narrative 06/16/2021 3:29 PM EDT EXAMINATION: DXA CENTRAL SPINE, HIP, AND/OR WHOLE BODY (GENERIC) CLINICAL HISTORY: 75 years Female 2 years on Forteo (as entered by ordering provider) TECHNIQUE: Scans were acquired at the lumbar spine and left hip using the Pymetrics Horizon A system. L4 was excluded from analysis due to standard deviation difference. COMPARISON: None FINDINGS: Femoral neck BMD: 0.659 g/cm2 Lowest T-score at a diagnostic region of interest: T-score: -2.2, TYRELL: Lumbar, WHO diagnosis: ??osteopenia. Procedure Note Gabe Alcazar MD - 06/16/2021 EXAMINATION: DXA CENTRAL SPINE, HIP, AND/OR WHOLE BODY (GENERIC) CLINICAL HISTORY: 75 years Female 2 years on Forteo (as entered byordering provider) TECHNIQUE: Scans were acquired at the lumbar spine and left hip usingthe HoloWineSimple Horizon A system. L4 was excluded from analysis due to standard deviation difference. COMPARISON: None FINDINGS: Femoral neck BMD: 0.659 g/cm2 Lowest T-score at a diagnostic region of interest: T-score: -2.2, TYRELL: Lumbar, WHO diagnosis: osteopenia. IMPRESSION Measurements meet WHO criteria for osteoporosis. Estimating Fracture Risk: ? The relationship between bone mineral density (BMD) and risk of fractureis well established. As BMD decreases, risk increases. Quantifying risk isdifficult and is usually limited to estimation of the relative risk - a term which mayhave limited value when trying to discuss an individual's risk. Estimatingthe absolute risk for a patient requires an understanding of the incidencerate in a given population and consideration of multiple, partially independent,risk factors in addition to BMD. ? The World Health Organization (WHO) has developed a fracture riskprediction tool that calculates a ten-year risk of major osteoporotic fracture basedon femoral neck bone density measurements and nine clinical risk factorsfor individuals who have not been treated for osteoporosis. This isavailable through an interactive web-based interface (http://www.shef.ac.uk/FRAX/)and can be used to estimate a given patient's absolute risk of majorosteoporotic fracture or hip fracture over the next 10 years. These estimates mayprove useful when discussing risk with a patient. It is important, however, to understand the tool's limitations and how a given individual's risk mightdiffer from the tool's estimate. The tool does not take into account thedose-response associated with most risk factors. For example, the significant increasein risk associated with multiple prior fractures compared to a single priorfracture is not taken into account. Similarly, the location of a previous fracture,the amount of glucocorticoids and number of cigarettes smoked are notconsidered. These limitations are discussed in a Frequently Asked Questions sectionof the FRAX website which you are encouraged to review. ? DEXA data sheets with BMD measurements and plots are available in E-DHunder the imaging tab. Paper copies will be sent to providers without E-DH access.If you have received this report without the data sheet and do not haveaccess to Wrapp, please contact Radiology [employer] at [phone] Tuesday thrriday 8am-4pm. Thank you for letting us participate in the care of this patient. If youare a health care provider and have any questions regarding this report,please contact the number below. For patients who have questions please contactthe health out of school hours care worker that requested your imaging first. Juan Antonio Alvarez MD IMG DEXA ORDERABLES * Mammo Screening Cad and Fabio Bilateral (04/10/2021 2:10 PM EST) Anatomical Region Laterality Modality Breast Bilateral Mammography Narrative 04/13/2021 10:11 AM EST BILATERAL MAMMOGRAPHY REASON FOR EXAM: Screening TECHNIQUE: CC and MLO views were obtained of each breast using standard 2-D mammography as well as 3-D tomosynthesis. Computer aided detection was used. This is compared with prior images. FINDINGS: There are scattered areas of fibroglandular density. There are no suspicious microcalcifications, masses, or areas of distortion. The pattern is stable. CONCLUSION: No mammographic evidence of malignancy. RECOMMENDATION: Regular screening mammograms starting between age 40 and 50 reduces the risk of from breast cancer. All screening tests have both risks and benefits. These risks and benefits should be assessed for each individual patient through discussion with their provider to determine their preferred breast cancer screening schedule. Women should report any breast changes to a health care provider right away. Some women, because of their family history, a genetic tendency, or other factors, should be screened with annual breast MRI as well as with mammograms. (The number of women who fall into this category is very small). Patients and health care providers should discuss each patient? s history to decide if earlier screening and/or breast MRI are appropriate. Screening should continue as long as a woman is in good health and is expected to live 10 years or longer. Screening mammography may not detect 10-15% of breast cancers. A result letter has been sent to this patient by the [facility]. [facility]ADS CATEGORY 1: NEGATIVE Electronically signed by: RAUL LIMA MD Cesilia Stokes MD IMG MAMMO ORDERABLES from Last 3 Months or Most Recently Relevant to Health Maintenance Care Teams Abstract Clerk Relationship Specialty Start Date End Date Cesilia Stokes MD [address] [place] [address] PCP - General Family Medicine 01/09/21 Sydnee Ross 05/26/22
--- OUTSIDE RECORDS SUMMARY | 2023-11-10 22:13 | XMS_ITS | Encounter Summary ---
Author Organization [facility] [place] [address] Care Team Providers Care Retail Sales Assistant Name Role Phone Cesilia Stokes MD Primary Care Provider [phone] Reason for Referral * High Dollar Medication (Routine) - Closed Specialty Diagnoses / Procedures Referred By Contac t Referred To Contact Med Infusion Diagnoses Osteoporosis, unspecified osteoporosis type, unspecified pathological fracture presence Procedures Zolendronic Acid (Reclast) Authorization Request TC ZOLEDRONIC ACID, 1 MG, INJECTION Juan Antonio Alvarez MD [facility] [place] [address] [facility] [address] [place] [phone] Referral ID Status Reason Start Date Expiration Date V isits Requested Visits Authorized [id number] Closed Consult, Test & Treat 06/16/2021 03/27/2022 99 99 Encounter Details Date Type Department Care Team (Late st Contact Info) Description 06/16/2021 Orders [place] [address] Juan Antonio Alvarez MD [facility] [place] [address] Osteoporosis, unspecified osteoporosis type, unspecified pathological fracture [...] documented as of this encounter Visit Diagnoses Diagnosis Osteoporosis, unspecified osteoporosis type, unspecified pathological fracture presence documented in this encounter Care Teams Retail Sales Assistant Relationship Specialty Start Date End Date Cesilia Stokes MD [address] [place] [id number] PCP - General Family Medicine 01/09/21 documented as of this encounter
--- OUTSIDE RECORDS SUMMARY | 2023-11-10 22:13 | XMS_ITS | Encounter Summary ---
Author Organization [facility] [place] [address] Care Team Providers Care Senior Applications Engineer Name Role Phone Cesilia Stokes MD Primary Care Provider [phone] Reason for Visit * High Dollar Medication (Routine) - Closed Specialty Diagnoses / Procedures Referred By Contac t Referred To Contact Med Infusion Diagnoses Osteoporosis, unspecified osteoporosis type, unspecified pathological fracture presence Procedures Zolendronic Acid (Reclast) Authorization Request TC ZOLEDRONIC ACID, 1 MG, INJECTION Juan Antonio Alvarez MD [facility] [place] [address] [facility]fusion [address] [place] [phone] Referral ID Status Reason Start Date Expiration Date V isits Requested Visits Authorized [id number] Closed Consult, Test & Treat 06/16/2021 03/27/2022 99 99 Encounter Details Date Type Department Care Team (Latest Contact Info) Description 06/25/2021 7:43 AM EDT - 06/25/2021 11:59 PM EDT Hospital Encounter [place] [address] Osteoporosis, unspecified osteoporosis type, unspecified pathological fracture presence Discharge Disposition: Home Social History Tobacco Use [...] Sign Reading Time Taken Comments Blood Pressure 104/57 06/25/2021 7:44 AM EDT Pulse 63 06/25/2021 7:44 AM EDT Temperature 36.4 ??C (97.6 ??F) 06/25/2021 7:44 AM ED T Respiratory Rate 15 06/25/2021 7:44 AM EDT Oxygen Saturation 100% 06/25/2021 7:44 AM EDT Inhaled Oxygen Concentration - - Weight 66.3 kg (146 lb 3.2 oz) 06/25/2021 7:44 A M EDT Height - - Body Mass Index 21.59 04/28/2021 9:52 AM EST documented in this encounter Medications at Time of Discharge Medication Sig Dispensed Refills Start Date End Date melatonin 5 mg Tablet Take 5 mg [...] as directed. documented as of this encounter Progress Notes * Shama Villegas RN - 06/25/2021 7:44 AM EDT INFUSION THERAPY ADMINISTRATION NOTES DIAGNOSIS: 1. Osteoporosis, unspecified osteoporosis type, unspecified pathological fracture presence REASON FOR VISIT: Reclast Infusion Allergies Allergen Reactions ??? Allergen Smu-Njfvt-Vltnu Bee Anaphylaxis ??? Fluoxetine Other (See Comments) Paranoid ??? Bee Sting [Hymenoptera Allergenic Extract] ??? Wasp Venom SUBJECTIVE: Offers no complaints. OBJECTIVE: First time receiving infusion, pt oriented to clinic. Pt education provided and all questions answered. VITAL SIGNS: BP 104/57 (BP Location (NBP): Left arm, Patient Position: Sitting, BP Cuff Sizes: Adult (25-34 cm)) Pulse 63 Temp 36.4 ??C (97.6 ??F) (Temporal) Resp 15 Wt 66.3 kg (146 lb 3.2 oz) SpO2 100% BMI 21.59 kg/m?? IF PAIN >5, INTERVENTION AND EFFECTIVENESS: n/a LAB DATA: No results found for this or any previous visit (from the past 24 hour(s)). IV ACCESS: Peripheral IV Line - Single Lumen 06/25/2110 median cubital vein (antecubital fossa), left 24 gauge;3/4 in length (Active) Indication/Daily Review of Necessity medication therapy intermittent 06/25/21814 Site Preparation/Maintenance site cleansed: 70% alcohol 06/25/21814 Patency/Maintenance flushed without difficulty;blood return, able to obtain 06/25/21814 Phlebitis 0-->no symptoms 06/25/21814 Infiltration 0-->no symptoms 06/25/21814 HYDRATION: N/A ANTIEMETICS/PREMEDS: Tylenol 650mg PO @ 0812 MEDICATION/TREATMENT: Patient identification and orders checked against actual dose given at bedside by Shama Villegas RN. Reclast 5mg IV Administration times: See MAR Creatinine Clearance: 88.78 REACTIONS: None. ASSESSMENT: Awake and alert - tolerated treatment well. PLAN: Pt to follow up with provider. documented in this encounter Plan of Treatment Not on file documented as of this encounter Visit Diagnoses Diagnosis Osteoporosis, unspecified osteoporosis type, unspecified pathological fracture presence documented in this encounter Administered Medications Inactive Administered Medications - up to 3 most recent administrations Medication Order MAR Action Action Date Dose Rate Site acetaminophen (Tylenol) tablet 650 mg 650 mg, Oral, ONCE, 1 dose, On Yael 06/25/21 at 0800, Pre-medication., Outpatient Transfusion, Routine Given 06/25/2021 8:12 AM EDT 650 mg zoledronic acid (Reclast) 5 mg in mannitol and water 100 mL infusion 5 mg 5 mg, Intravenous, ONCE, 1 dose, On Yael 06/25/21 at 0800, Administer over 30 Minutes, Hold dose for CrCl< 35 mL/min. Do not mix with IV Calcium-containing products. Administer over no less than 15 minutes., Outpatient Transfusion, Indication for: Osteoporosis, prevention of fractures New Bag 06/25/2021 8:14 AM EDT 5 mg 200 mL/hr documented in this encounter Care Teams Senior Applications Engineer Relationship Specialty Start Date End Date Cesilia Stokes MD [address] [place] [address] PCP - General Family Medicine 01/09/21 documented as of this encounter
--- OUTSIDE RECORDS SUMMARY | 2023-11-10 22:13 | XMS_ITS | Encounter Summary ---
[place] [address] Care Team Providers Care Health And Safety Trainer Name Role Phone Cesilia Stokes MD Primary Care Provider [phone] Encounter Details Date Type Department Care Team (Late st Contact Info) Description 04/15/2022 Telephone [place] [phone] Chichi Santamaria Social History Tobacco Use Types Packs/Day Years [...] on filedocumented in this encounter Care Teams Health And Safety Trainer Relationship Specialty Start Date End Date Cesilia Stokes MD [address] [place] [address] PCP - General Family Medicine 01/09/21 documented as of this encounter
--- OUTSIDE RECORDS SUMMARY | 2023-11-10 22:13 | XMS_ITS | Encounter Summary ---
Author Organization [facility] Address [facility] [place] [address] Care Team Providers Care Hand Stapler Name Role Phone Cesilia Stokes MD Primary Care Provider [phone] Encounter Details Date Type Department Care Team (Late st Contact Info) Description 06/16/2021 Orders [place] [id number] Juan Antonio Alvarez MD [facility] [place] [address] Osteoporosis, unspecified osteoporosis type, unspecified pathological fracture [...] on file documented as of this encounter Results * (ABNORMAL) Creatinine (06/16/2021 12:16 PM EDT) Creatinine 0.58(L) 0.70 - 1.20 mg/dL [facility] Est Glomerular Filtration Rate 90 >=60 mL/min/1. 73 m?? [facility] Comment: This patient? s estimated glomerular [...] Alvarez MD CHEMISTRY ORDERABLES Performing Organization Address City/[facility]/ZIP Co de Phone Number [facility] [place] [address] * Calcium (06/16/2021 12:16 PM EDT) Calcium 9.7 8.5 - 10.5 mg/dL [facility] Blood 06/16/2021 12:1 6 PM EDT 06/16/2021 12:28 PM EDT Narrative Resulting Agency Comment Spec In Lab Juan Antonio Alvarez MD CHEMISTRY ORDERABLES Performing Organization Address City/[facility]/ZIP Co de Phone Number [facility] [place] [address] documented in this encounter Visit Diagnoses Diagnosis Osteoporosis, unspecified osteoporosis type, unspecified pathological fracture presence documented in this encounter Care Teams Hand Stapler Relationship Specialty Start Date End Date Cesilia Stokes MD [address] [place] [address] PCP - General Family Medicine 01/09/21 documented as of this encounter
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
--- OUTSIDE RECORDS SUMMARY | 2023-11-10 22:14 | XMS_ITS | Encounter Summary ---
Author Organization [facility] [place] [address] Care Team Providers Care Parking Ramp Attendant Name Role Phone Cesilia Stokes MD Primary Care Provider [phone] Reason for Visit * Consultation (Routine) - Closed Specialty Diagnoses / Procedures Referred By Contac t Referred To Contact Endocrinology Diagnoses Osteoporosis, unspecified osteoporosis type, unspecified pathological fracture presence Cesilia Stokes MD [address] [place] [id number] [facility] [address] [place] [phone] Referral ID Status Reason Start Date Expiration Date V isits Requested Visits Authorized [id number] Closed Consult, Test & Treat PCP Updated and/or Approved 05/01/2021 07/24/2021 12 12 Encounter Details Date Type Department Care Team (Latest Contact Info) Description 05/11/2021 8:30 AM EST TH Visit (TeleHealth) [place] [address] Juan Antonio Alvarez MD [facility] [place] [address] Osteoporosis, unspecified osteoporosis type, unspecified pathological fracture presence Social History Tobacco Use Types Packs/Day Years Used Date Smoking Tobacco: Never Smokeless Tobacco: Never Alcohol Use Standard Drinks/Week Comments Yes 7 (1 standard drink = 0.6 oz pur e alcohol) day Sex and Gender Information Value Date Recorded Sex Assigned at Female 05/27/2020 7:34 AM EST Gender Identity Not on file Sexual Orientation Straight 05/27/2020 7: 34 AM EST documented as of this encounter Progress Notes * Juan Antonio Alvarez MD - 05/11/2021 8:30 AM EST Date of Visit: 05/11/2021 Patient Name: Gianna Infante : 1945 PCP: Cesilia Stokes MD Reason for Referral We are asked to consult on Mrs Gianna Infante, she is 75yo women with osteoporosis and T12 compression fx by Dr. Cesilia Stokes MD. This is her 1st minimal trauma fracture, took place with minimal pulling movement. For last 2 years she has been on Forteo and before that for 4 years on alendronate (fx happened andshe was switched to Forteo) Last BMD by DXA 01/2018 in [facility]. LS (L1,L2,L4) -3.0 LFN -1.3 LH -1.5 She is scheduled to have knee replacement 05/2021 Other risk factors for fracture/osteoporosis are: [] Yes [x] No Smoking, if yes, how long [x] Yes [] No Drinking alcohol. If yes, how much, glass of wine at night [x] Yes [] No Exercise If yes how long and what kind of exercise, walking QOD, yoga, streching daily [] Yes [x] No Stomach or bowel surgery. If yes, When and what kind [] Yes [x] No Loose bowel movements. If yes, how frequently and how long [x] Yes [] No Loss of height 2 [] Yes [x] No History of kidney stones? If yes, when and how many episodes? [] Yes [x] No Kidney or liver problems? If yes, what kind and how long? Average time spent outside in direct sun a day [] 0-5 min [] 5-10 min [] 11-15 min [] 16-20 min [] 21-25 min [] 26-30 min [x] >30 min For women: Start of menstrual cycle 14 End of menstrual cycle 50s, ERT for very short time Daily calcium intake: [] 0-100 mg [] 101-200 mg [] 201-300 mg [] 301-400 mg [] 401-500 mg [] 501-600 mg [] 601-700 mg [x] 701-900 mg, 900mg from food [] 901-1100 mg [x] 7941-4327 mg from Viactive chews [] 5425-6213 mg [] Above 1500 mg Medications: Current Outpatient Medications on File Prior to Visit Medication Sig Dispense Refill ??? pilocarpine (Pilocar) 1 % Drops Place 1 drop into both eyes nightly as needed. 15 mL 0 ??? clindamycin-benzoyl peroxide (BENZACLIN) 1-5 % Gel Apply topically 2 times daily. ??? cholecalciferol, vitamin D3, (VITAMIN D3 ORAL) Take by mouth. ??? docosahexaenoic acid/epa (FISH OIL ORAL) Take by mouth. ??? mv,calcium,min/iron/folic/vitK (MULTI FOR HER ORAL) Take by mouth. ??? cyanocobalamin, vitamin B-12, (VITAMIN B12 ORAL) Take by mouth. ??? calcium carbonate/vitamin D3 (CALCIUM 500 + D, D3, ORAL) Take by mouth. ??? BIOTIN ORAL Take by mouth. ??? [DISCONTINUED] Teriparatide (Forteo) 20 mcg/dose - 600 mcg/2.4 mL Pen Injector Inject subcutaneously. ??? ibuprofen (ADVIL;MOTRIN) 800 mg Tablet Take 800 mg by mouth 3 times daily. ??? EPINEPHrine 0.3 mg/0.3 mL Auto-Injector Inject 0.3 mg into the muscle once as needed. Inject 0.3 mL IM once as needed for allergic reaction (Throat tight, difficulty breathing). Call 911 as directed. No current facility-administered medications on file prior to visit. [] Yes [x] No Glucocorticoid dose. When first prescribed? [] Yes [x] No Cyclosporine dose. When first prescribed? [] Yes [x] No Phenobarbital and phenytoin. When first prescribed? [] Yes [x] No Rosiglitazone, pioglitazone. When first prescribed? [] Yes [x] No PPI. When first prescribed? [] Yes [x] No SSRI. When first prescribed? [] Yes [x] No Thiaizdes, loop diuretics. When first prescribed? [x] Yes [] No Estrogens, testosterone. When first prescribed? [] Yes [x] No Calcitonin. When first prescribed? [] Yes [x] No Aromatase inhibitors (breast CA). When first prescribed? [] Yes [x] No Androgen deprivation therapy (prostate CA). When first prescribed? [x] Yes [] No Alendronate, risedronate, ibandronate. When first prescribed? PMH: Patient Active Problem List Diagnosis Code ??? Epiretinal membrane (ERM) of left eye H35.372 ??? Macular cyst, hole, or pseudohole, left eye H35.342 ??? Combined forms of age-related cataract of both eyes H25.813 ??? Myopia of both eyes with astigmatism and presbyopia H52.13, H52.203, H52.4 ??? 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 Bee Sting [Hymenoptera Allergenic Extract] ??? Wasp Venom Family History Problem Relation Age of Onset ??? Amblyopia Mother ??? Strabismus Mother ??? Cataracts Mother ??? Hypertension Father ??? Heart Disease Father ??? Breast Cancer Neg Hx ??? Cancer Neg Hx ??? Diabetes Neg Hx ??? Glaucoma Neg Hx ??? Macular Degeneration Neg Hx ??? Retinal Detachment Neg Hx ??? Thyroid Disease Neg Hx Hip fracture in parents: mom hip fx in 80s Osteopenia/Osteoporosis:no Hyperthyroidism/Hyperparathyrodism: no Social History Socioeconomic History ??? Marital status: Single Spouse name: Not on file ??? Number of children: Not on file ??? Years of education: Not on file ??? Highest education level: Not on file Occupational History ??? Not on file Tobacco Use ??? Smoking status: Never Smoker ??? Smokeless tobacco: Never Used Substance and Sexual Activity ??? Alcohol use: Yes Alcohol/week: 7.0 standard drinks Types: 7 Glasses of wine per week Comment: 1/day ??? Drug use: Not Currently ??? Sexual activity: Not on file Other Topics Concern ??? Not on file Social History Narrative ??? Not on file Social Determinants of Health Financial Resource Strain: Not on file Food Insecurity: Not on file Transportation Needs: Not on file Physical Activity: Not on file Housing Stability: Not on file Physical Examination: Appearance: well hydrated, well nourished, oriented x 3, in nad. Labs 11/2020 CBC and Chem 7 in good range, TSH 1.55, 25-D 42.2 Assessment and Plan 1. S/p T12 compression fracture/severe osteoporosis: Mrs Gianna Infante has minimal trauma fracture due to osteoporosis. Has been on Forteo for almost 2 years now and 4 years on alendronate before, anticipated to have knee replacement 05/2021 A. As patient's Ca intake is above 2000 mg, will get 24h urine Ca to see if she has hyp[ercalciuria. B. Patient also does have Vitamin D at goal, 30 ng/ml and above. C. Will order BMD by DXA now D. As 25 Vit D is at normal range and surgery is planned, will continue teriparatide 20 mcg SC daily for one more month and after that switch to alendronate/zol. E. I will schedule patient for outpatient visit at 12 weeks. Thank you for allowing me to participate in the care of this very pleasant patient. I spend 60min in chart review, labs, discussing osteoporosis and writing my note. Sincerely, Juan Antonio Alvarez MD Professor documented in this encounter Plan of Treatment Not on file documented as of this encounter Results * DXA Central Spine, Hip, and/or [...] BMD measurements and plots are available in [employer] under the imaging tab. Paper copies will be sent to providers without [employer] access. If you have received this report without the data sheet and do not have access to [employer], please contact Radiology Fruit Rancher at [phone] Tuesday thru Tuesday 8am-4pm. Thank you for letting us participate in the care of this patient. ??If you are a health care provider and have any questions regarding this report, please contact the number below. ??For patients who have questions please contact the health care management coordinator that requested your imaging first. ? Narrative 06/16/2021 3:29 PM EDT EXAMINATION: DXA CENTRAL SPINE, HIP, AND/OR WHOLE BODY (GENERIC) CLINICAL HISTORY: 75 years Female 2 years on Forteo (as entered by ordering provider) TECHNIQUE: Scans were acquired at the lumbar spine and left hip using the Holo[employer] Horizon A system. L4 was excluded from [...] the lumbar spine and left hip usingthe Hologic Horizon A system. L4 was excluded from [...] BMD measurements and plots are available in [employer] the imaging tab. Paper copies will be sent to providers without [employer] access.If you have received this report without the data sheet and do not haveaccess to [employer], please contact Radiology Fruit Rancher at [phone] Tuesday thruFriday 8am-4pm. Thank you for letting us participate in the care of this patient. If youare a health care provider and have any questions regarding this report,please contact the number below. For patients who have questions please contactthe health care management coordinator that requested your imaging first. Juan Antonio Alvarez MD IMG DEXA ORDERABLES * Calcium, urine, 24 hour (05/13/2021 6:00 AM EST) Ca Concentration, U24 9.7 mg/dL [facility] Calcium, 24 Hour Urine 291.0 50.0 - 300.0 mg/24hr [facility] Comment:Reference Range: 50. 0-300.0 mg/24 hour based on diet. Urine 05/13/2021 6:00 AM EST 05/13/2021 11:50 AM EST Narrative Resulting Agency Comment Spec In Lab Juan Antonio Alvarez MD URINE ORDERABLES Performing Organization Address City/[facility]/ZIP Co de Phone Number [facility] [place] [address] * Creatinine, urine, 24 hour (05/13/2021 6:00 AM EST) Cre Concentration, U24 28 mg/dL [facility] Creatinine, 24 Hour Urine 0.84 0.70 - 1.60 g/24hr [facility] Urine 05/13/2021 6:00 AM EST 05/13/2021 11:50 AM EST Narrative Resulting Agency Comment Spec In Lab Juan Antonio Alvarez MD URINE ORDERABLES Performing Organization Address City/[facility]/ZIP Co de Phone Number [facility] [place] [address] documented in this encounter Visit Diagnoses Diagnosis Osteoporosis, unspecified osteoporosis type, unspecified pathological fracture presence Osteoporosis, unspecified osteoporosis type, unspecified pathological fracture presence documented in this encounter Care Teams Parking Ramp Attendant Relationship Specialty Start Date End Date Cesilia Stokes MD [address] [place] [address] PCP - General Family Medicine 01/09/21 documented as of this encounter
--- OUTSIDE RECORDS SUMMARY | 2023-11-10 22:14 | XMS_ITS | Encounter Summary ---
Author Organization [facility] Address [facility] [place] [address] Care Team Providers Care Riveting Machine Operator Name Role Phone Ky Fernandez MD Primary Care Provider [phone] Encounter Details Date Type Department Care Team (Late st Contact Info) Description 03/18/2020 Telephone [place] [id number] Jaden Garcia MD [facility] [place] [address] Social History Tobacco Use Types Packs/Day Years Used Date Smoking Tobacco: Never Smokeless Tobacco: Never Alcohol Use Standard Drinks/Week Comments Yes 0 (1 standard drink = 0.6 oz pur e alcohol) Sex and Gender Information Value Date Recorded Sex Assigned at Female 05/27/2020 7:34 AM EST Gender Identity Not on file Sexual Orientation Straight 05/27/2020 7: 34 AM EST documented as of this encounter Miscellaneous Notes * Telephone Encounter - Amaury Palma - 03/18/2020 2:01 PM EST Called and spoke to patient and answered all questions. Patient was very happy and will call/message us if there are any further questions or concerns. documented in this encounter Plan of Treatment Not on file documented as of this encounter Visit Diagnoses Not on filedocumented in this encounter Care Teams Riveting Machine Operator Relationship Specialty Start Date End Date Ky Fernandez MD [address] [place] [address] PCP - General Internal Medicine 12/26/15 01/08/21 documented as of this encounter
--- OUTSIDE RECORDS SUMMARY | 2023-11-10 22:14 | XMS_ITS | Encounter Summary ---
[place] [address] Care Team Providers Care Slotter Operator Helper Name Role Phone Cesilia Stokes MD Primary Care Provider [phone] Reason for Visit * Reason Onset Date Comments Prior Authorization 06/05/2021 Encounter Details Date Type Department Care Team (Late st Contact Info) Description 06/05/2021 Telephone [place] [address] Katelynn Samayoa Prior Authorization Social History Tobacco Use Types Packs/Day Years [...] encounter Miscellaneous Notes * Telephone Encounter - Katelynn Samayoa - 06/09/2021 12:21 PM EDT Medication Prior Authorization [facility] Medication name/dose/directions: Tymlos 3,120mcg/1.56mL - inj 80mcg daily Rationale for request: Osteoporosis Health plan: [employer] ([place]) Authorizing apprenticeship representative name: Shanell Sent to health plan on: 06/09/21 Health plan decision: Approved Quantity approved: Authorization number: [id number] Start date: End date: 03/27/22 * Telephone Encounter - Katelynn Samayoa - 06/05/2021 7:31 AM EST Images from the original note were not included. Received PA for Dianelos Will complete as soon as possible documented in this encounter Plan of Treatment Not on file documented as of this encounter Visit Diagnoses Not on filedocumented in this encounter Care Teams Slotter Operator Helper Relationship Specialty Start Date End Date Cesilia Stokes MD [address] [place] [address] PCP - General Family Medicine 01/09/21 documented as of this encounter
--- OUTSIDE RECORDS SUMMARY | 2023-11-10 22:14 | XMS_ITS | Encounter Summary ---
[place] [address] Care Team Providers Care Ocularist Name Role Phone Cesilia Stokes MD Primary Care Provider [phone] Encounter Details Date Type Department Care Team (Latest Contact Info) Description 01/26/2021 10:26 PM EDT - 01/26/2021 11:59 PM EDT Hospital [place] [address] Discharge Disposition: Home Social History Tobacco Use [...] Sig Dispensed Refills Start Date End Date pilocarpine (Pilocar) 1 % Drops Place 1 drop into both eyes nightly as needed. 15 mL 12/19/2020 cholecalciferol, vitamin D3, (VITAMIN D3 ORAL) Take by mouth. docosahexaenoic acid/epa (FISH OIL ORAL) Take by mouth. mv,calcium,min/iron/fo lic/vitK (MULTI FOR HER ORAL) Take by mouth. [...] tight, difficulty breathing). Call 911 as directed. ciprofloxacin (Cipro) 500 mg Tablet Take 1 tablet by mouth 2 times daily for 3 days. 6 tablet 04/28/2021 05/01/2021 clindamycin-benzoyl peroxide (BENZACLIN) 1-5 % Gel Apply topically 2 times daily. 05/19/2021 Teriparatide (Forteo) 20 mcg/dose - 600 mcg/2.4 mL Pen Injector Inject subcutaneously. 05/11 documented as of this encounter Plan of Treatment Not on file documented as of this encounter Procedures Procedure Name Priority Date/Time Associated Diagnosis Comments SURGICAL PATHOLOGY REPORT Routine 01/26/2021 12:43 PM EDT documented in this encounter Results * Surgical Pathology Report (01/26/2021 12:43 PM EDT) Final Diagnosis [id number] ? Location: [facility] The signing pathologist has (i) examined the relevant preparation(s) for the specimen(s) and (ii) rendered or confirmed the diagnosis(es). . ?Surgical Pathology DIAGNOSIS Toenail, nail clippings: - Fragments of nail plate with bacterial colonies - PAS/Fungus stain is negative for fungal hyphal organisms Electronically signed by: ?Daisy Henry MD Verified: ??01/30/2021 13:03 ??Dermatopathol ogist Performed at: ??-[facility] Dept. of Pathology, [place], [place] SPECIMEN(S) SUBMITTED A - Toenail clippings Referring Identifier: ??[id number] CLINICAL INFORMATION Onychomycosis SPECIMEN PROCESSING A - Labeled/Fixativ e: Patient demographics, fresh. Quantity/Size: Multiple, 1.7 x 1.5 x 0.4 cm in aggregate. Tissue Description: Irregular, thickened variegated yellow-white and yellow-green unguis fragments. Sections/Proces sing: Submitted en toto in 1 cassette labeled A1. ??shb 01/30/2021 1:[address] [facility] NAIL SPECIMEN / Unknown 01/26/2021 12:43 PM EDT 01/26/2021 12:43 PM EDT Narrative Resulting Agency Comment Spec In Lab / [facility] Dina Alvarez [facility]/CYTOLOGY ORDERABLES [facility] [place] [address] documented in this encounter Visit Diagnoses Not on filedocumented in this encounter Care Teams Ocularist Relationship Specialty Start Date End Date Cesilia Stokes MD [address] [place] [address] PCP - General Family Medicine 01/09/21 documented as of this encounter
--- OUTSIDE RECORDS SUMMARY | 2023-11-10 22:14 | XMS_ITS | Encounter Summary ---
Author Organization [facility] Address [facility] [place] [address] Care Team Providers Care Corporate Tutor Name Role Phone Ky Fernandez MD Primary Care Provider + [phone] Encounter Details Date Type Department Care Team (Late st Contact Info) Description 06/23/2020 [place] [id number] Jaden Garcia MD [facility] [place] [address] Social History Tobacco Use Types Packs/Day Years [...] * Telephone Encounter - Amaury Palma - 06/23/2020 11:38 AM EDT Called and spoke to patient in regards to her questions in regards to her gum infection and her upcoming cataract surgery. I spoke with Dr. Salcido/Dr Schroeder who do not feel her cataract surgery needs to be deferred at this time, especially how she has been on antibiotics for x7 days and symptoms are improving. I did express that if she has any worsening symptoms (I.e fever, other flu like symptoms) to let us knowand that we may have to post pone the surgery. Gianna express understanding and would like to have her surgery as planned and will call if anything changes. documented in this encounter Plan of Treatment Not on file documented as of this encounter Visit Diagnoses Not on filedocumented in this encounter Care Teams Corporate Tutor Relationship Specialty Start Date End Date Ky Fernandez MD [address] [place] [id number] PCP - General Internal Medicine 12/26/15 01/08/21 documented as of this encounter
--- OUTSIDE RECORDS SUMMARY | 2023-11-10 22:14 | XMS_ITS | Encounter Summary ---
Author Organization [facility] Address [facility] [place] [address] Care Team Providers Care Hand Rug Cleaner Name Role Phone Ky Fernandez MD Primary Care Provider + [phone] Encounter Details Date Type Department Care Team (Late st Contact Info) Description 05/28/2020 11:49 AM EST - 05/28/2020 2:56 PM EST Hospital Encounter [place] [address] Jaden Garcia MD [facility] [place] [address] Discharge Disposition: Home Social History Tobacco Use [...] Sign Reading Time Taken Comments Blood Pressure 118/77 05/28/2020 2:39 PM EST Pulse 66 05/28/2020 2:39 PM EST Temperature 36.2 ??C (97.2 ??F) 05/28/2020 2:39 PM ES T Respiratory Rate 16 05/28/2020 2:39 PM EST Oxygen Saturation 100% 05/28/2020 2:39 PM EST Inhaled Oxygen Concentration - - Weight 65.8 kg (145 lb) 05/28/2020 12:10 PM EST Height 177.8 cm (5' 10) 05/28/2020 12:10 PM EST Body Mass Index 20.81 05/28/2020 12:10 PM EST documented in this encounter Discharge Instructions * Discharge Instructions* Rusty Saha RN - 05/28/2020 11:57 AM EST Instructions following CATARACT surgery Dr. Salcido Section of ophthalmology [facility] [phone] - Wear either the eye shield or glasses of any kind 24 hours per day for the first week following surgery. - Your appointment tomorrow with Dr. Salcido [facility]. Bring your Eye Kit to all postoperative visits. - Call you Primary Care Doctor or the Emergency Room for any non eye related medical issues. - It is normal to have a scratchy sensation or mild pain in your eye, but if you have any severe eye pain, vomiting or bleeding call [phone] and ask to speak to the ophthalmology doctor quality control lead. - Your eye will be red tomorrow - this is normal. -Do not bend so that your head goes below your heart for 2 weeks after surgery. -No heavy lifting - nothing greater than 5 pounds for 2 weeks after your surgery. - If you are on glaucoma drops, it is very important that you keep taking these as usual. - Start your post-op drops in 2 hours. Your post-op drops to take while awake are prednisolone acetate 1% (pink), Vigamox (king) and Ketorolac (wu) each four times daily. - Be sure to wait 5 minutes between each drop so that they don't dilute each other. - The prednisolone acetate drops (pink) need to be shaken 30 times. - Some of the drops, especially the Ketorolac (wu), may sting. It can be helpful to refrigerate them to make them more comfortable. - After the first week drop instructions: Vigamox - stop using. Prednisolone - begin tapering your drops to 3x/day for 1 week, then 2x/day for 1 week, then 1x/day for 1 week, then STOP using. Ketoralac - 4x/day until they are gone. Moderate Sedation You may have received medication before and/or during your procedure, which affects your judgement and reaction time. Do not drive, operate machinery, drink alcoholic beverages, or make any legal decisions for 24 hours. Be careful on stairs, as you may be unsteady on your feet. You may eat a regular diet as tolerated. Do not smoke if you are alone. IV site -- slight redness, or tenderness is normal, you can use a warm compress. If tenderness and redness increases or foul drainage occurs, please contact your M. D. Questions or problems: M-F 8 am - 5pm call ophthalmology : [phone] After 5pm or on a weekend or holiday: call the [facility] mingle operator and ask for the ophthalmology physician quality control lead. documented in this encounter Medications at Time of Discharge Medication Sig Dispensed Refills Start Date End Date cholecalciferol, vitamin D3, (VITAMIN D3 ORAL) Take by mouth. docosahexaenoic acid/epa (FISH OIL ORAL) Take by mouth. mv,calcium,min/iron/fol ic/vitK (MULTI FOR HER ORAL) Take by mouth. [...] tight, difficulty breathing). Call 911 as directed. clindamycin-benzoyl peroxide (BENZACLIN) 1-5 % Gel Apply topically 2 times daily. 05/19/2021 Teriparatide (Forteo) 20 mcg/dose - 600 mcg/2.4 mL Pen Injector Inject subcutaneously. 05/11/2021 documented as of this encounter Progress Notes * Rusty Saha RN - 05/28/2020 1:51 PM EST Pt instructed to squeeze RN's hand if having pain, need to cough, etc. Pt instructed not to talk during procedure. Pain assessment unable to verbalize (non-verbal) but will indicate pain with hand squeeze, ask surgeon to pause and verbally assess pt. Date/Procedure: Meds Given Comments 28 May 2020 Left Cataract Midazolam IV: 1.5 mg Fentanyl IV: 25 mcg Tolerated well. Discharge instructions and medications reviewed with patient. All questions answered and written copy sent home with patient. Eye drop schedule reviewed with patient at bedside. Patient ambulated to car for discharge accompanied by [facility] staff member. * Isabela Stanley RN - 05/27/2020 2:18 PM EST During this call the patient was questioned regarding travel outside of [place] states, fever, cough, SOB or other illness in the last 14 days. Patient also questioned regarding any exposure to aCOVID positive person, a person awaiting results from testing or a person in quarantine.Patient also denies attending a gathering of 50 people indoors or 100 people outdoors where a mask was unable to be worn.Patient denies any positive responses to the above questions for themselves or their escort for the day of procedure. Patient informed of procedure to be followed upon arrival to the [facility]. That being, COVID questions will be asked again, temperature will be taken, patient and caregiver/mechanic welder truck driver will be given a mask to wear the entire time they are in the [facility] building. * Anna Davies RN - 05/21/2020 10:51 AM EST During this call the patient was questioned regarding travel outside of [place] states, fever, cough, SOB or other illness in the last 14 days. Patient also questioned regarding any exposure to aCOVID positive person, a person awaiting results from testing or a person in quarantine.Patient also denies attending a gathering of 50 people indoors or 100 people outdoors where a mask was unable to be worn.Patient denies any positive responses to the above questions for themselves or their escort for the day of procedure. Patient informed of procedure to be followed upon arrival to the [facility]. That being, COVID questions will be asked again, temperature will be taken, patient and caregiver/mechanic welder truck driver will be given a mask to wear the entire time they are in the [facility] building. documented in this encounter H&P Notes * Jaden Salcido MD - 05/28/2020 1:29 PM EST Images from the original note were not included. History and physical for PCP reviewed, no interval changes. Risks, benefits and alternatives of surgery revisited. Patient is keen to proceed with CEIOL OS. No significant changes to the patient's health recently. The patient is breathing comfortably, without cyanosis or use of accessory muscles. Vital signs are within acceptable parameters. The eyes arequiet without discharge or other signs of active infection. ?? Malampatti: 2 ASA: 2 ?? The sedation plan was reviewed the patient expressed understanding and agreement. ?? REFERENCES: ? ASA Score: I. Patient is a completely healthy fit patient. II. Patient has mild systemic disease. III. Patient has severe systemic disease that is not incapacitating. IV. Patient has incapacitating disease that is a constant threat to life. V. A moribund patient who is not expected to live 24 hour with or without surgery. documented in this encounter Miscellaneous Notes * Op Note - Jaden Salcido MD - 05/28/2020 2:22 PM EST [facility] Operative Note Patient Name: Gianna Infante : 1945 Surgeon: Surgeon(s) and Role: * Jaden Salcido MD - Primary Preoperative diagnosis: Cataract, Left eye Nuclear sclerotic cataract Postoperative diagnosis: same as preoperative diagnosis HPI/Surgical Indications: The cataracts are causing impairment of visual function, Not correctable by glasses or contact lens. Reduced visual acuity causing glare, difficulty driving, reading, writing, and vocational and recreational needs. This is impacting the patient's quality of life. No other e tiology for visual decline, Other etiologies not limited to macular conditions have been ruled out as a primary cause of decreased visual function. Procedure: CATARACT EXTRACTION, EXTRACAPSULAR, W/ LENS INSERTION, Left eye Complications: None Blood loss: Minimal Anesthesia type: IV conscious sedation with topical block Implant: [id number] lens, 18.5 D power, placed in the capsular bag Procedure in detail: After the risks, benefits, and alternatives of the planned procedure had been discussed with the patient and the informed consent signed, the patient was taken back to the operating room suite. There, the patient was prepped and draped in the standard sterile ophthalmic fashion. A lid speculum was introduced into the operative eye. A paracentesis wound was created 60 degrees to the left of the planned temporal incision. Lidocaine was injected intracamerally. Viscoat viscoelastic was injected intracamerally. The main temporal incision was then created using a 2.4 mm keratome. The anterior capsulotomy was then created using the combination of a cystotome and Utrata forceps. Hydrodissection was performed using a straight hydrodissection cannula. The nucleus was then divided in a groove and split technique. The nuclear fragments were then removed using the phacoemulsification handpiece. The remaining cortical and epinuclear material was then removed using the irrigatio n/aspiration handpiece. The capsular bag was filled with Provisc viscoelastic. The [id number] lens was then injected into the capsular bag using a lens injection system. The remaining viscoelastic was then removed from the eye using the irrigation/aspiration handpiece. The wounds were then hydrated. With the wounds found not to be leaking, all viscoelastic removed from the anterior segment, and the lens centered in the capsular bag, the surgery was deemed concluded. All instrumentation was removed from the operative eye. The patient was then escorted to the post-anesthesia care unit having tolerated the procedure well without additional issues. I performed this surgery by myself without the assistance of a resident. Jaden Salcido MD documented in this encounter Plan of Treatment Not on file documented as of this encounter Procedures Procedure Name Priority Date/Time Associated Diagnosis Comments CATARACT EXTRACTION, EXTRACAPSULAR, W/ LENS INSERTION Routine 05/28/2020 2:26 PM EST Extracapsular Cataract Rmvl Insertion Io Lens Prosth W/O Ecp ([id number]) 05/28/2020 2:16 PM EST Cataract documented in this encounter Visit Diagnoses Not on filedocumented in this encounter Administered Medications Inactive Administered Medications - up to 3 most recent administrations Medication Order MAR Action Action Date Dose Rate Site ketorolac tromethamine (ACULAR) 0.5 % ophthalmic solution 1 drop 1 drop, Left Eye, ONCE, 1 dose, On Tue05/28/20 at 1215, 1 drop to the operative eye once, start on day of surgery, Day of Surgery (Day of Procedure), Routine Given 05/28/2020 1:35 PM EST 1 drop lactated ringers infusion 1,000 mL, at 100 mL/hr, Intravenous, CONTINUOUS, Starting on Tue05/28/20 at 1215, Until Tue05/28/20 at 1452, Day of Surgery (Day of Procedure) New Bag 05/28/2020 1:50 PM EST 1,000 mLs 100 mL/hr moxifloxacin (VIGAMOX) 0.5 % ophthalmic solution 1 drop 1 drop, Left Eye, EVERY 5 MIN, 3 doses, First dose on Tue05/28/20 at 1215, Last dose on Tue05/28/20 at 1225, 1 drop to the operative eye every 5 minutes times 3. Start on the day of surgery. , Day of Surgery (Day of Procedure), Routine Given 05/28/2020 12:25 PM EST 1 drop Given 05/28/2020 12:20 PM EST 1 drop Given 05/28/2020 12:15 PM EST 1 drop PHENYLephrine (MYDFRIN) 2.5 % ophthalmic solution 1 drop 1 drop, Left Eye, EVERY 5 MIN, 3 doses, First dose on Tue05/28/20 at 1215, Last dose on Tue05/28/20 at 1225, 1 drop to the operative eye every 5 minutes times 3. Start on the day of surgery. Do NOT place dilating drops in post-op kit!, Day of Surgery (Day of Procedure), Routine Given 05/28/2020 12:25 PM EST 1 drop Given 05/28/2020 12:20 PM EST 1 drop Given 05/28/2020 12:15 PM EST 1 drop prednisoLONE acetate (PRED FORTE) 1 % ophthalmic suspension 1 drop 1 drop, Left Eye, ONCE, 1 dose, On Tue05/28/20 at 1215, 1 drop to the operative eye once, start on day of surgery, Day of Surgery (Day of Procedure), Routine Given 05/28/2020 1:35 PM EST 1 drop tropicamide (MYDRIACYL) 1 % ophthalmic solution 1 dose, Starting on Tue05/28/20 at 1327, Until Tue05/28/20 at 1335, Rusty Saha: cabinet override Given 05/28/2020 1:35 PM EST 1 drop documented in this encounter Active and Recently Administered Medications Times are shown in EST. Scheduled Medication Order 05/26/2020 05/27/2020 05/28/2020 cyclopentolate (CYCLODRYL) ophthalmic solution 1 drop 1 drop, Left Eye, EVERY 5 MIN, 3 doses, First dose on Tue05/28/20 at 1215, Last dose on Tue05/28/20 at 1225, 1 drop to the operative eye every 5 minutes times 3. Start day of surgery. Do NOT place dilating drops in post-op kit!, Day of Surgery (Day of Procedure), Routine 1215 (Due)1220 (Due) 1225 (Due) ketorolac tromethamine (ACULAR) 0.5 % ophthalmic solution 1 drop (COMPLETED) 1 drop, Left Eye, ONCE, 1 dose, On Tue05/28/20 at 1215, 1 drop to the operative eye once, start on day of surgery, Day of Surgery (Day of Procedure), Routine 1335 (Given - Provid er: Rusty Saha RN) moxifloxacin (VIGAMOX) 0.5 % ophthalmic solution 1 drop (COMPLETED) 1 drop, Left Eye, EVERY 5 MIN, 3 doses, First dose on Tue05/28/20 at 1215, Last dose on Tue05/28/20 at 1225, 1 drop to the operative eye every 5 minutes times 3. Start on the day of surgery. , Day of Surgery (Day of Procedure), Routine 1215 (Given - Provid er: Rusty Saha RN)1220 (Given - Provider: Rusty Saha RN)1225 (Given - Provider: Rusty Saha RN) PHENYLephrine (MYDFRIN) 2.5 % ophthalmic solution 1 drop (COMPLETED) 1 drop, Left Eye, EVERY 5 MIN, 3 doses, First dose on Tue05/28/20 at 1215, Last dose on Tue05/28/20 at 1225, 1 drop to the operative eye every 5 minutes times 3. Start on the day of surgery. Do NOT place dilating drops in post-op kit!, Day of Surgery (Day of Procedure), Routine 1215 (Given - Provid er: Rusty Saha RN)1220 (Given - Provider: Rusty Saha RN)1225 (Given - Provider: Rusty Saha RN) prednisoLONE acetate (PRED FORTE) 1 % ophthalmic suspension 1 drop (COMPLETED) 1 drop, Left Eye, ONCE, 1 dose, On Tue05/28/20 at 1215, 1 drop to the operative eye once, start on day of surgery, Day of Surgery (Day of Procedure), Routine 1335 (Given - Provid er: Rusty Saha RN) Continuous Medication Order 05/26/2020 05/27/2020 05/28/2020 lactated ringers infusion (CANCELED) 1,000 mL, at 100 mL/hr, Intravenous, CONTINUOUS, Starting on Tue05/28/20 at 1215, Until Tue05/28/20 at 1452, Day of Surgery (Day of Procedure) 1350 (New Bag - Prov ider: Rusty Saha RN) PRN Medication Order 05/26/2020 05/27/2020 05/28/2020 fentaNYL (pf) (50 mcg/mL) multi-dose injection 25 mcg (CANCELED) 25 mcg, Intravenous, EVERY 5 MIN PRN, Starting on Tue05/28/20 at 1156, Until Tue05/28/20 at 1452, Pain, For use in the Operating Room (OR), [facility] ([facility]C, or Special Procedure Room only under direct provider supervision and verbal order. Hold for respiratory rate less than 8 breaths per minute. (maximum dose 100 mcg), Intra-Operative (Intra-Procedure), Routine 1421 (Given - Provid er: Rusty Saha RN) midazolam (pf) (Versed) (1 mg/mL) multi-dose injection 0.25-1 mg (CANCELED) 0.25-1 mg, Intravenous, EVERY 5 MIN PRN, Starting on Tue05/28/20 at 1156, Until Tue05/28/20 at 1452, Anxiety, For use in the Operating Room (OR), [facility] ([facility]) or Special Procedure room only with direct provider supervision and verbal order. Hold for delirium/agitation. (Maximum dose 4 mg), Intra-Operative (Intra-Procedure), Routine 1419 (Given - Provid er: Rusty Saha RN)1424 (Given - Provider: Rusty Saha RN) No Frequency Medication Order 05/26/2020 05/27/2020 05/28/2020 tropicamide (MYDRIACYL) 1 % ophthalmic solution (COMPLETED) 1 dose, Starting on Tue05/28/20 at 1327, Until Tue05/28/20 at 1335, Rusty Saha.: cabinet override 1335 (Given - Provid er: Rusty Saha RN) documented in this encounter Care Teams Hand Rug Cleaner Relationship Specialty Start Date End Date Ky Fernandez MD [address] [place] [id number] PCP - General Internal Medicine 12/26/15 01/08/21 documented as of this encounter
--- OUTSIDE RECORDS SUMMARY | 2023-11-10 22:14 | XMS_ITS | Encounter Summary ---
Author Organization [facility] Address [facility] [place] [address] Care Team Providers Care Lead Software Test Engineer Name Role Phone Cesilia Stokes MD Primary Care Provider [phone] Encounter Details Date Type Department Care Team (Latest Contact Info) Description 04/28/2021 9:43 AM EST - 04/28/2021 12:39 PM EST Hospital Encounter [place] [address] Douglas Lui MD [facility] [place] [address] Discharge Disposition: Home Social History Tobacco Use [...] Sign Reading Time Taken Comments Blood Pressure 122/69 04/28/2021 12:10 PM EST Pulse 82 04/28/2021 9:52 AM EST Temperature 36.4 ??C (97.6 ??F) 04/28/2021 9:52 AM ES T Respiratory Rate 16 04/28/2021 12:10 PM EST Oxygen Saturation 100% 04/28/2021 12:10 PM EST Inhaled Oxygen Concentration - - Weight 63.5 kg (140 lb) 04/28/2021 9:52 AM EST Height 175.3 cm (5' 9) 04/28/2021 9:52 AM EST Body Mass Index 20.67 04/28/2021 9:52 AM EST documented in this encounter Discharge Instructions * Discharge Instructions* Tiana Medrano RN - 04/28/2021 11:27 AM EST Endoscopic Ultrasound (Oral): What to Expect At Home Your Recovery After you have an endoscopic ultrasound--a test to look for problems in the stomach, liver, gallbladder, and other organs--you will stay at the hospital or clinic for 1 to 2 hours. This will allow the medicine to wear off. You will be able to go home after your doctor or nurse checks to make sure you are not having any problems. You may have a sore throat for a day or two after the test. This care sheet gives you a general idea about what to expect after the test. How can you care for yourself at home? Activity ??? Rest when you feel tired. ?? You can do your normal activities when it feels okay to do so. Diet ?? Follow your doctor's directions for eating. ?? Unless your doctor has told you not to, drink plenty of fluids. ?? Do not drink alcohol. Medicines ?? Your doctor will tell you if and when you can restart your medicines. He or she will also give you instructions about taking any new medicines. ?? If you take blood thinners, such as warfarin (Coumadin), clopidogrel (Plavix), or aspirin, be sure to talk to your doctor. He or she will tell you if and when to start taking those medicines again. Make sure that you understand exactly what your doctor wants you to do. ?? If a biopsy was done during the test, your doctor may tell you not to take aspirin or other anti-inflammatory medicines for a few days. These include ibuprofen (Advil, Motrin) and naproxen (Aleve). ?? If you have a sore throat the day after the procedure, use an darb-pjn-kgloxbv spray to numb your throat. Sucking on throat lozenges and gargling with warm salt water may also help relieve your symptoms. Other instructions ?? For your safety, do not drive or operate machinery until the medicine wears off and you can think clearly. Your doctor may tell you not to drive or operate machinery until the day after your test. ?? Do not sign legal documents or make major decisions until the medicine wears off and you can think clearly. The anesthesia can make it hard for you to fully understand what you are agreeing to. Additional Information for Sedation Patients For patients who received sedation: ?? You may have received medications before and/or during your procedure which effects your judgement and reaction time. ?? Do not drive, operate machinery, drink alcoholic beverages or make important decisions for 24 hours. ?? Be careful on stairs as you may be unsteady on your feet. ?? You may eat a regular diet as tolerated. ?? Do not smoke if you are alone. ?? IV site: Slight redness or tenderness is normal, you can use a warm compress if you would like. If tenderness and/or redness increase or if foul drainage occurs, please contact your Doctor. Please call [phone] before 8pm Mon-Fri with problems, questions or concerns. If you call after 8pm or on weekends, call the Hospital at [phone] and ask to speak to the Chaplain program professional and the deposition operator will contact that person for you. When should you call for help? Call 489 anytime you think you may need emergency care. For example, call if: ?? You passed out (lost consciousness). ?? You pass maroon or bloody stools. ?? You have trouble breathing. Call your doctor now or seek immediate medical care if: ?? You have pain that does not get better after you take pain medicine. ?? You are sick to your stomach or cannot drink fluids. ?? You have new or worse belly pain. ?? You have blood in your stools. ?? You have a fever. ?? You cannot pass stools or gas. Watch closely for changes in your health, and be sure to contact your doctor if you have any problems. Where can you learn more? [facility] View your After Visit Summary and more online at [email or web address] If you would like to provide feedback about your hospital experience, please call the Office of Patient and Family Relations at . If you have received this After Visit Summary in error, please immediately return it in person to the department, or notify the [facility] Privacy Office by calling toll free at between the hours of 8AM and 5PM to arrange for our retrieval of the documents at no cost to you. Content Version: 12.2 ?? [phone] [employer]. Care instructions adapted under license by [facility]. If you have questions about a medical condition or this instruction, always ask your healthcare professional. [employer] disclaims any warranty or liability for your use of this information. * Patient Instructions* Douglas Lui MD - 04/28/2021 11:40 AM EST Please see Recommendations in the Provation procedure report which is documented in the procedural note in [facility]. documented in this encounter Medications at Time [...] subcutaneously. 05/11 documented as of this encounter H&P Notes * Douglas Lui MD - 04/28/2021 10:48 AM EST Gastroenterology and Hepatology Pre-Procedure History and Physical Exam Procedure: ERCP: EUS: Indication: Incidental cystic lesion in pancreas head on CT and possible CBD stone per report but not obvious on review of CT. Patient Active Problem List Diagnosis Code ??? Epiretinal membrane (ERM) of left eye H35.372 ??? Macular cyst, hole, or pseudohole, left eye H35.342 ??? Combined forms of age-related cataract of both eyes H25.813 ??? Myopia of both eyes with astigmatism and presbyopia H52.13, H52.203, H52.4 ??? 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 ASA 2 - Patient with mild systemic disease with no functional limitations Sedation Plan: deep Risks and benefits of the procedure explained to the patient. Consent signed. documented in this encounter Miscellaneous Notes * Op Note - Douglas Lui MD - 04/28/2021 10:58 AM EST [facility] Operative Note Patient Name: Gianna Infante : [id number] MR#: [id number] Case Date: 04/28/2021 Surgeon: Surgeon(s) and Role: * Douglas Lui MD - Primary Preoperative diagnosis: pancreatic lesion Postoperative diagnosis: * No post-op diagnosis entered * Procedure(s) (LRB): FINE NEEDLE ASPIRATION BIOPSY, INC US GUIDANCE; FIRST LESION (N/A) UPPER EUS- ENDOSCOPIC ULTRASOUND (N/A) Anesthesia: MAC Full procedure note is documented under the Procedure section of [facility]. documented in this encounter Plan of Treatment Not on file documented as of this encounter Procedures Procedure Name Priority Date/Time Associated Diagnosis Comments NON-FOLDER GLUER OPERATOR FINAL REPORT Routine 04/28/2021 11:41 AM EST CYTOPATHOLOGY NON-GYNECOLOGICAL Routine 04/28/2021 11:41 AM EST Endoscopic Us Exam, Esoph ([id number]) 04/28/2021 10:45 AM EST pancreatic lesion Fine Needle Aspiration Bx W/Us Gdn 1St Lesion ([id number]) 04/28/2021 10:45 AM EST pancreatic lesion UPPER EUS-ENDOSCOPIC ULTRASOUND Routine 04/28/2021 10:01 AM EST documented in this encounter Results * Non-Curve Saw Operator Final Report (04/28/2021 11:41 AM EST) Diagnosis Discussion [id number] ? Location: ; 09; A The signing pathologist has (i) examined the relevant preparation(s) for the specimen(s) and (ii) rendered or confirmed the diagnosis(es). . ? Non-Curve Saw Operator Final DIAGNOSIS See Discussion Electronically signed by: ?Alcides Olivas MD Verified: ??04/30/2021 16:09 ??Cytopathologis t Performed at: ??-[facility] Dept. of Pathology, [place], [place] DISCUSSION Pancreas: cyst (EUS-guided FNA) - Very hypocellular aspirate. A few minute clusters of epithelial cells with mild prominence of nucleoli are present. See note. Note: It is possible that the cells are derived from a neoplasm; however, in view of the extreme paucity of material, the aspirate is best deemed nondiagnostic, Suggest follow-up as clinically indicated. (Cell block was examined.) CLINICAL INFORMATION Specimen Source : Pancreas: cyst (EUS-guided FNA) Pertinent Clinical Data and Significant Therapy: 38mm multicystic mass in pancreas uncinate Clinical Impression : Cystic neoplasm Pertinent Radiologic Findings ??: (not provided) Gross Description: Received ??in CytoLyt approximately 30 mL total volume of ?? clear, colorless fluid, with light flecks. Total Preparation: Liquid-Based Prep 1; Cell Block 1. 04/30/2021 4:09 PM EST [facility] PANCREATIC STRUCTURE / Unknown 04/28/2021 11:41 AM EST 04/28/2021 11:41 AM EST Douglas Lui MD PATHOLOGY/CYTOLOGY O MIHIR Performing Organization Address [facility] Co de Phone Number [facility] [place] [address] * Cytopathology Non-Gynecological (04/28/2021 11:41 AM EST) AP Specimen 04/28/2021 11:4 1 AM EST 04/28/2021 11:41 AM EST Narrative [facility] - 04/28/2021 11:41 AM EST Specimen requisition ordered. ??Separate Pathology report to follow Douglas Lui MD PATHOLOGY/CYTOLOGY O MIHIR Performing Organization Address City/[facility] [place] [address] * UPPER EUS-ENDOSCOPIC ULTRASOUND (04/28/2021 10:01 AM EST) UPPER ENDOSCOPIC ULTRASOUND [facility] Endoscopy Procedure Date: 04/28/2021 10:01 AM ? Patient Name: Gianna Infante ? Date of : 1945 ? Age: 75 ? Order #: [id number] ? Instrument Name: [id number] ? Procedure: ? Upper EUS Indications: ? Pancreatic cyst on CT scan Providers: ? Douglas Lui MD, Brittany ? Yady Holden, ? Sales Person Referring MD: ?Cesilia Stokes MD Medicines: ? Propofol per Anesthesia, Cipro 400 mg ? IV Complications: ? No immediate complications. Procedure: ? Pre-Anesthesia Assessment: ? - Prior to the procedure, a History ? and Physical was performed, and ? patient medications, allergies and ? sensitivities were reviewed. The ? patient's tolerance of previous ? anesthesia was reviewed. ? - The risks and benefits of the ? procedure and the sedation options ? and risks were discussed with the ? patient. All questions were answered ? and informed consent was obtained. ? - ASA Grade Assessment: II - A ? patient with mild systemic disease. ? - Using IV propofol under the ? supervision of an anesthesiologist ? was determined to be medically ? necessary for this procedure based on ? age 65 or older and complex procedure ? (ERCP, EUS). ? The procedure, indications, benefits, ? risks and alternatives were explained ? to the patient. Specifically ? discussed were potential ? complications including, but not ? limited to, bleeding, perforation, ? infection, missing a cancer, and ? adverse medication reactions.The ? Endosonoscope was introduced through ? the mouth, and advanced to the second ? part of duodenum. The patient ? tolerated the procedure well. ? Findings: ? ENDOSCOPIC FINDING: : ? The examined esophagus was endoscopically normal. ? The entire examined stomach was endoscopically normal. ? The examined duodenum was endoscopically normal. ? ENDOSONOGRAPHIC FINDING: : ? An anechoic, focally calcified and multicystic lesion ? suggestive of a cyst was identified in the uncinate ? process of the pancreas. It is not in obvious ? communication with the pancreatic duct. The lesion ? measured 38 mm in maximal cross-sectional diameter. ? There were several compartments thinly septated. The ? outer wall of the lesion was thin. There was no ? associated mass. There was no internal debris within ? the fluid-filled cavity. There was focal mural ? calcification. Diagnostic needle aspiration for fluid ? was performed. Color Doppler imaging was utilized ? prior to needle puncture to confirm a lack of ? significant vascular structures within the needle ? path. One pass was made with the 22 gauge needle ? using a transgastric approach. A stylet was used. The ? amount of fluid collected was 7 ml. The fluid was ? clear and viscous. Sample(s) were sent for glucose ? and amylase concentration, cytology and CEA. ? There were additional small but irregularly shaped ? cysts in the body and tail of pancreas (2 x 6 mm ? each). ? There was no sign of significant endosonographic ? abnormality in the common bile duct and in the ? gallbladder. The maximum diameter of the ducts were 4 ? mm. ? Normal visualized portion of liver (limited exam). ? No lymphadenopathy seen. ? The esophagus, stomach and duodenum were visualized ? endosonographically and were otherwise normal. ? Moderate Sedation: ? I was present during the intraservice time as ? documented by the sedation RN. Impression: ?- 38 mm multicystic and focally ? calcified mass in the uncinate of the ? 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 features except size-s/p FNA. ? - There were additional small but ? irregularly shaped cysts in the body ? and tail of pancreas (2 x 6 mm ? each)-not sampled. ? - There is no evidence for CBD stone ? or CBD dilation. ? - Otherwise normal exam. Recommendation: ?- Observe patient's clinical course. ? - Await cytology results and await ? tumor markers. ? - If benign, would manage ? conservatively but would consider ? f/up MRI of the pancreas in 6 mos to ? r/o interval change. ? - Prophylactic Cipro 500 mg po bid x ? 3 days. ? Attending Participation: ? I personally performed the entire procedure. ? Douglas Lui MD 04/28/2021 11:38:09 AM This report has been signed electronically. Number of Addenda: 0 Note Initiated On: 04/28/2021 10:01 AM PROVATION 04/28/2021 10:0 1 AM EST Cesilia Stokes MD GENERAL SURGICAL ORD ERABLES PROVATION documented in this encounter Visit Diagnoses Not on filedocumented in this encounter Active and Recently Administered Medications Times are shown in EST. Continuous Medication Order 04/26/2021 04/27/2021 04/28/2021 lactated ringers infusion (CANCELED) 100 mL/hr, Intravenous, CONTINUOUS, Starting on Tue04/28/21 at 1015, Until Tue04/28/21 at 1227, Endoscopy (Day of Procedure) 1043 (New Bag - Prov ider: Annemarie Bright CRNA)1045 (New Bag - Provider: Annemarie Bright CRNA) documented in this encounter Care Teams Lead Software Test Engineer Relationship Specialty Start Date End Date Cesilia Stokes MD [address] [place] [address] PCP - General Family Medicine 01/09/21 documented as of this encounter
--- OUTSIDE RECORDS SUMMARY | 2023-11-10 22:14 | XMS_ITS | Encounter Summary ---
Author Organization [facility] Address [facility] [place] [address] Care Team Providers Care Certified [employer] Administrator Name Role Phone yK Fernandez MD Primary Care Provider + [phone] Reason for Visit * Reason Onset Date Comments Appointment 03/08/2020 Encounter Details Date Type Department Care Team (Late st Contact Info) Description 03/08/2020 Telephone Ophthalmology at [facility] [place] [address] Jami Coon MD [place] [address] Appointment Social History Tobacco Use Types Packs/Day Years [...] encounter Miscellaneous Notes * Telephone Encounter - Nathalia Rodríguez - 03/12/2020 9:43 AM EST Scheduled * Telephone Encounter - Xin Luo - 03/08/2020 4:06 PM EST LMOAM x 1 to schedule: Follow up with retina in approx 1 year for DFE, OCT OU documented in this encounter Plan of Treatment Not on file documented as of this encounter Visit Diagnoses Not on filedocumented in this encounter Care Teams Certified [employer] Administrator Relationship Specialty Start Date End Date Ky Fernandez MD [address] [place] [address] PCP - General Internal Medicine 12/26/15 01/08/21 documented as of this encounter
--- OUTSIDE RECORDS SUMMARY | 2023-11-10 22:14 | XMS_ITS | Encounter Summary ---
Author Organization [facility] Address [facility] [place] [address] Care Team Providers Care Mobile Developer Name Role Phone Ky Fernandez MD Primary Care Provider + [phone] Reason for Visit * Reason Onset Date Comments Questions 08/03/2019 Encounter Details Date Type Department Care Team (Late st Contact Info) Description 08/03/2019 Telephone Ophthalmology at [facility] [place] [address] Jami Coon MD [facility] [place] [address] Questions Social History Tobacco Use Types Packs/Day Years [...] encounter Miscellaneous Notes * Telephone Encounter - Prabha Mix - 08/06/2019 12:52 PM EDT Patient Scheduled Prabha it seems that we will have some openings soon. Can you please schedule her sometime within 1mo? Thanks * Telephone Encounter - Prabha Mix - 08/03/2019 1:49 PM EDT Please advise * Telephone Encounter - Nathalia Rodríguez - 08/03/2019 11:12 AM EDT Patient called in. She saw Erika Maddox in March, and Dr. Maddox referred her to see Dr. Coon within 4 months. We had to cancel her June appointment due to COVID-19 and have rescheduled her to see Dr. Coon on 01/09. She would like to try to get in to see Dr. Coon before herscheduled appointment as her eyesight is deteriorating. She would like someone to call her to discuss. documented in this encounter Plan of Treatment Not on file documented as of this encounter Visit Diagnoses Not on filedocumented in this encounter Care Teams Mobile Developer Relationship Specialty Start Date End Date Ky Fernandez MD [address] [place] [address] PCP - General Internal Medicine 12/26/15 01/08/21 documented as of this encounter
--- OUTSIDE RECORDS SUMMARY | 2023-11-10 22:14 | XMS_ITS | Encounter Summary ---
[facility] Organization [facility] [place] [address] Care Team Providers Care Boning Room Worker Name Role Phone Ky Fernandez MD Primary Care Provider + [phone] Encounter Details Date Type Department Care Team (Late st Contact Info) Description 06/25/2020 11:32 AM EDT - 06/25/2020 1:35 PM EDT Hospital Encounter [place] [address] Jaden Garcia MD [facility] [place] [address] Discharge Disposition: Home Social History Tobacco Use [...] Sign Reading Time Taken Comments Blood Pressure 141/88 06/25/2020 1:24 PM EDT Pulse 71 06/25/2020 1:24 PM EDT Temperature 36.3 ??C (97.3 ??F) 06/25/2020 1:24 PM ED T Respiratory Rate 13 06/25/2020 1:24 PM EDT Oxygen Saturation 98% 06/25/2020 1:24 PM EDT Inhaled Oxygen Concentration - - Weight 66.6 kg (146 lb 14.4 oz) 021 11:57 AM EDT Height 177.8 cm (5' 10) 06/25/2020 11: 57 AM EDT Body Mass Index 21.08 06/25/2020 11:57 AM EDT documented in this encounter Discharge Instructions * Discharge Instructions* Rosy Willis RN - 06/25/2020 12:11 PM EDT Home Care Instructions after Cataract Surgery Dr Salcido [place] [facility] [place] [phone] -Do not remove the eye patch or shield until you are seen tomorrow unless instructed otherwise by Dr. Salcido. - Wear either the eye shield or glasses of any kind 24 hours per day for the first week following surgery. - Your appointment tomorrow with Dr. Salcido will be at the [facility] in the main [facility]. Bring your Eye Kit to all postoperative visits. - Call you Primary Care Doctor or the Emergency Room for any non eye related medical issues. - It is normal to have a scratchy sensation or mild pain in your eye, but if you have any severe eye pain, vomiting or bleeding call [phone] and ask to speak to the ophthalmology doctor aviation ordnance officer. - Your eye will be red tomorrow - this is normal. -Do not bend so that your head goes below your heart for 2 weeks after surgery. -No heavy lifting - nothing greater than 5 pounds for 2 weeks after your surgery. -Resume all your regular medicines. You may have received medication before and/or during your procedure, which affect your judgement and reaction time therefore for the next 24 hours: You may be unsteady on your feet, be careful on stairs. Do not smoke if you are alone. Do not drink alcoholic beverages. Do not drive or operate any type of machinery. Do not make important legal decisions. If you are having any problems or additional concerns or questions please call: 8am to 5 pm M-F - [phone] After 5 pm or on a weekend or holiday please call the hospital robotype operator at [phone] and ask foropthalmology MD aviation ordnance officer. documented in this encounter Medications at Time [...] as of this encounter Progress Notes * Rosy Willis RN - 06/25/2020 1:32 PM EDT All D/C instructions reviewed with pt and her friend Brittney prior to procedure and sedation. Pt given Dr. Balderas's eyedrop schedule sheet as well. Both pt and firendd verbalized understanding. Pt expresses some anxiety prior to procedure, and became acutely nervous just prior to entrance to OR, reporting my mouth is very dry. Pt responded well to sedation medication, tolerated procedure w/o difficulty. Denies pain or nausea post-procedure, eye shield in place. D/C to home in good condition. Patient ambulated to car for discharge accompanied by [facility] staff member. Date/Procedure: Meds Given Comments 06/25/2020 Midazolam 1.5 mg; Fentanyl 50 mcg Tolerated well documented in this encounter H&P Notes * Jaden Salcido MD - 06/25/2020 12:05 PM EDT Images from the original note were not included. History and physical for PCP reviewed, no interval changes. Risks, benefits and alternatives of surgery revisited. Patient is keen to proceed with CEIOL OD. No significant changes to the patient's health [...] Op Note - Jaden Salcido MD - 06/25/2020 1:08 PM EDT [facility] [place] Patient Name: Gianna Infante : 1945 Surgeon: Surgeon(s) and Role: * Jaden Salcido MD - Primary Preoperative diagnosis: Cataract, Right eye Nuclear sclerotic cataract Postoperative diagnosis: same [...] Procedure: CATARACT EXTRACTION, EXTRACAPSULAR, W/ LENS INSERTION, Right eye Complications: None Blood loss: Minimal Anesthesia type: IV conscious sedation with topical block Implant: [id number] lens, 19.0 D power, placed in the capsular bag [...] CATARACT EXTRACTION, EXTRACAPSULAR, W/ LENS INSERTION Routine 06/25/2020 1:16 PM EDT Extracapsular Cataract Rmvl Insertion Io Lens Prosth W/O Ecp ([id number]) 06/25/2020 1:01 PM EDT Cataract documented in this encounter Visit Diagnoses Not on filedocumented in this encounter Administered Medications Inactive Administered Medications - up to 3 most recent administrations Medication Order MAR Action Action Date Dose Rate Site cyclopentolate (CYCLODRYL) ophthalmic solution 1 drop 1 drop, Right Eye, EVERY 5 MIN, 3 doses, First dose on Tue06/25/20 at 1215, Last dose on Tue06/25/20 at 1225, 1 drop to the operative eye every 5 minutes times 3. Start day of surgery. Do NOT place dilating drops in post-op kit!, Day of Surgery (Day of Procedure), Routine Given 06/25/2020 12:23 PM EDT 1 drop Given 06/25/2020 12:14 PM EDT 1 drop Given 06/25/2020 12:07 PM EDT 1 drop ketorolac tromethamine (ACULAR) 0.5 % ophthalmic solution 1 drop 1 drop, Right Eye, ONCE, 1 dose, On Tue06/25/20 at 1215, 1 drop to the operative eye once, start on day of surgery, Day of Surgery (Day of Procedure), Routine Given 06/25/2020 12:10 PM EDT 1 drop lactated ringers infusion 1,000 mL, at 100 mL/hr, Intravenous, CONTINUOUS, Starting on Tue06/25/20 at 1215, Until Tue06/25/20 at 1338, Day of Surgery (Day of Procedure) New Bag 06/25/2020 12:25 PM EDT 1,000 mLs 100 mL/hr moxifloxacin (VIGAMOX) 0.5 % ophthalmic solution 1 drop 1 drop, Right Eye, EVERY 5 MIN, 3 doses, First dose on Tue06/25/20 at 1215, Last dose on Tue06/25/20 at 1225, 1 drop to the operative eye every 5 minutes times 3. Start on the day of surgery. , Day of Surgery (Day of Procedure), Routine Given 06/25/2020 12:26 PM EDT 1 drop Given 06/25/2020 12:24 PM EDT 1 drop Given 06/25/2020 12:10 PM EDT 1 drop PHENYLephrine (MYDFRIN) 2.5 % ophthalmic solution 1 drop 1 drop, Right Eye, EVERY 5 MIN, 3 doses, First dose on Tue06/25/20 at 1215, Last dose on Tue06/25/20 at 1225, 1 drop to the operative eye every 5 minutes times 3. Start on the day of surgery. Do NOT place dilating drops in post-op kit!, Day of Surgery (Day of Procedure), Routine Given 06/25/2020 12:23 PM EDT 1 drop Given 06/25/2020 12:14 PM EDT 1 drop Given 06/25/2020 12:09 PM EDT 1 drop prednisoLONE acetate (PRED FORTE) 1 % ophthalmic suspension 1 drop 1 drop, Right Eye, ONCE, 1 dose, On Tue06/25/20 at 1215, 1 drop to the operative eye once, start on day of surgery, Day of Surgery (Day of Procedure), Routine Given 06/25/2020 12:11 PM EDT 1 drop documented in this encounter Active and Recently Administered Medications Times are shown in EDT. Scheduled Medication Order 06/23/2020 06/24/2020 06/25/2020 cyclopentolate (CYCLODRYL) ophthalmic solution 1 drop (COMPLETED) 1 drop, Right Eye, EVERY 5 MIN, 3 doses, First dose on Tue06/25/20 at 1215, Last dose on Tue06/25/20 at 1225, 1 drop to the operative eye every 5 minutes times 3. Start day of surgery. Do NOT place dilating drops in post-op kit!, Day of Surgery (Day of Procedure), Routine 1207 (Given - Provid er: Rosy Willis RN)1214 (Given - Provider: Rosy Willis RN)1223 (Given - Provider: Rosy Willis RN) ketorolac tromethamine (ACULAR) 0.5 % ophthalmic solution 1 drop (COMPLETED) 1 drop, Right Eye, ONCE, 1 dose, On Tue06/25/20 at 1215, 1 drop to the operative eye once, start on day of surgery, Day of Surgery (Day of Procedure), Routine 1210 (Given - Provid er: Rosy Willis RN) moxifloxacin (VIGAMOX) 0.5 % ophthalmic solution 1 drop (COMPLETED) 1 drop, Right Eye, EVERY 5 MIN, 3 doses, First dose on Tue06/25/20 at 1215, Last dose on Tue06/25/20 at 1225, 1 drop to the operative eye every 5 minutes times 3. Start on the day of surgery. , Day of Surgery (Day of Procedure), Routine 1210 (Given - Provid er: Rosy Willis RN)1224 (Given - Provider: Rosy Willis RN)1226 (Given - Provider: Rosy Willis RN) PHENYLephrine (MYDFRIN) 2.5 % ophthalmic solution 1 drop (COMPLETED) 1 drop, Right Eye, EVERY 5 MIN, 3 doses, First dose on Tue06/25/20 at 1215, Last dose on Tue06/25/20 at 1225, 1 drop to the operative eye every 5 minutes times 3. Start on the day of surgery. Do NOT place dilating drops in post-op kit!, Day of Surgery (Day of Procedure), Routine 1209 (Given - Provid er: Rosy Willis RN)1214 (Given - Provider: Rosy Willis RN)1223 (Given - Provider: Rosy Willis RN) prednisoLONE acetate (PRED FORTE) 1 % ophthalmic suspension 1 drop (COMPLETED) 1 drop, Right Eye, ONCE, 1 dose, On Tue06/25/20 at 1215, 1 drop to the operative eye once, start on day of surgery, Day of Surgery (Day of Procedure), Routine 1211 (Given - Provid er: Rosy Willis RN) Continuous Medication Order 06/23/2020 06/24/2020 06/25/2020 lactated ringers infusion (CANCELED) 1,000 mL, at 100 mL/hr, Intravenous, CONTINUOUS, Starting on Tue06/25/20 at 1215, Until Tue06/25/20 at 1338, Day of Surgery (Day of Procedure) 1225 (New Bag - Prov ider: Rosy Willis RN) PRN Medication Order 06/23/2020 06/24/2020 06/25/2020 fentaNYL (pf) (50 mcg/mL) multi-dose injection 25 mcg (CANCELED) 25 mcg, Intravenous, EVERY 5 MIN PRN, Starting on Tue06/25/20 at 1148, Until Tue06/25/20 at 1338, Pain, For use in the Operating Room (OR), [facility] ([facility])C, or Special Procedure Room only under direct provider supervision and verbal order. Hold for respiratory rate less than 8 breaths per minute. (maximum dose 100 mcg), Intra-Operative (Intra-Procedure), Routine 1307 (Given - Provid er: Rosy Willis RN) midazolam (pf) (Versed) (1 mg/mL) multi-dose injection 0.25-1 mg (CANCELED) 0.25-1 mg, Intravenous, EVERY 5 MIN PRN, Starting on Tue06/25/20 at 1148, Until Tue06/25/20 at 1338, Anxiety, For use in the Operating Room (OR), Out[facility] ([facility]) or Special Procedure room only with direct provider supervision and verbal order. Hold for delirium/agitation. (Maximum dose 4 mg), Intra-Operative (Intra-Procedure), Routine 1307 (Given - Provid er: Rosy Willis RN)1313 (Given - Provider: Rosy Willis RN) documented in this encounter Care Teams Boning Room Worker Relationship Specialty Start Date End Date Ky Fernandez MD [address] [place] [id number] PCP - General Internal Medicine 12/26/15 01/08/21 documented as of this encounter
--- OUTSIDE RECORDS SUMMARY | 2023-11-10 22:14 | XMS_ITS | Encounter Summary ---
Author Organization [facility] [place] [address] Care Team Providers Care Refining Equipment Operator Name Role Phone Cesilia Stokes MD Primary Care Provider [phone] Reason for Visit * Reason Onset Date Comments Abdominal Pain 05/01/2021 Patient called s /p upper EUS and pancreatic FNA post op day 2 concerned about RUQ pain. Rates 3-4/10 which worsens when sitting. Denies fever, N/V, SOB, bleeding. Advised to take tylenol for the pain and that the discomfort should resolve over the weekend. If not she should call back tuesday. if condition worsens, go to ED. Gave her patient relations number regarding a tooth that came out POD 1. Encounter Details Date Type Department Care Team (Late st Contact Info) Description 05/01/2021 Telephone Gastroenterology at [facility] [place] [phone] Rere Hurt RN Abdominal Pain (Patient called s/p upper EUS and pancreatic FNA post op day 2 concerned about RUQ pain. Rates 3-4/10 which worsens when sitting. Denies fever, N/V, SOB, bleeding. Advised to take tylenol for the pain and that the discomfort should resolve over the weekend. If not she should call back tuesday. if condition worsens, go to ED. Gave her patient relations number regarding a tooth that came out POD 1. ) Social History Tobacco Use Types Packs/Day Years [...] on filedocumented in this encounter Care Teams Refining Equipment Operator Relationship Specialty Start Date End Date Cesilia Stokes MD [address] [place] [id number] PCP - General Family Medicine 01/09/21 documented as of this encounter
--- OUTSIDE RECORDS SUMMARY | 2023-11-10 22:14 | XMS_ITS | Encounter Summary ---
Author Organization [facility] Address [facility] [place] [address] Care Team Providers Care Experience Planning Strategist Name Role Phone Ky Fernandez MD Primary Care Provider + [phone] Encounter Details Date Type Department Care Team (Late st Contact Info) Description 07/30/2020 8:30 AM EDT Office [place] [address] Jaden Garcia MD [facility] [place] [address] Status post cataract extraction and insertion of intraocular lens, right; Pseudophakia Social History Tobacco Use Types Packs/Day Years [...] as of this encounter Progress Notes * Jaden Salcido MD - 07/30/2020 8:30 AM EDT 1) Pseudophakia bilaterally - Doing well - was corrected for near vision. - Final MRx given today getting her to 20/20 OD and 20/25 OS. - Retinal detachment precautions reviewed with patient. Patient will notify us if she notices any visual changes such as flashes of light, an increased number of floaters, and/or a veil or shade. - Follow up with Dr. Coon as scheduled in August. I, Yahaira Brunson, have performed the documentation for this encounter in the presence of and acting as a scribe for Jaden Salcido MD. I performed the services which were documented by the scribe, and I agree with the accuracy of the documentation in this encounter. Jaden Salcido MD documented in this encounter Plan of Treatment Not on file documented as of this encounter Visit Diagnoses Diagnosis Status post cataract extraction and insertion of intraocular lens, right Pseudophakia Lens replaced by other means documented in this encounter Care Teams Experience Planning Strategist Relationship Specialty Start Date End Date Ky Fernandez MD [address] [place] [id number] PCP - General Internal Medicine 12/26/15 01/08/21 documented as of this encounter
--- OUTSIDE RECORDS SUMMARY | 2023-11-10 22:14 | XMS_ITS | Encounter Summary ---
[place] [address] Care Team Providers Care Market Asset Protection Manager Name Role Phone Ky Fernandez MD Primary Care Provider + [phone] Reason for Visit * Reason Comments Skin Check Encounter Details Date Type Department Care Team (Late st Contact Info) Description 05/25/2019 2:30 PM EST Office Visit Dermatology at [address] [address] Cm Radnall MD [address] [facility] [place] [address] History of basal cell carcinoma; Nevus Social History Tobacco Use Types Packs/Day Years [...] as of this encounter Progress Notes * Cm Randall MD - 05/25/2019 2:30 PM EST Problem: 1. Skin check 2. History of basal cell carcinoma right medial canthus, and inferior nasal tip, treated in [facility] 2008 Gianna follows up concerned about lesion recurrent now on the left baptist. This was last treated when she was living in [place] by a inventory and pricing associate there with liquid nitrogen. She wonders whether this needs treatment in my office today. She did not want to wait another year to come back. She has noother lesions of concern today. Physical examination reveals a pleasant 73-year-old woman who has an actinic keratosis which is superficial and in 2 sections present on the left baptist. There is no underlying induration. Examination of the rest of her face is benign. Assessment and plan: Actinic keratosis left baptist 1. LN 2 x 2 applied to single site 2. Keep appointment to return next year for her repeat skin checkup. 3. Reassured patient about lack of skin cancer on facial skin examination today. CC: Ky Fernandez MD documented in this encounter Plan of Treatment Not on file documented as of this encounter Visit Diagnoses Diagnosis History of basal cell carcinoma Personal history of other malignant neoplasm of skin Nevus Benign neoplasm of skin, site unspecified documented in this encounter Care Teams Market Asset Protection Manager Relationship Specialty Start Date End Date Ky Fernandez MD [address] [place] [address] PCP - General Internal Medicine 12/26/15 01/08/21 documented as of this encounter
--- OUTSIDE RECORDS SUMMARY | 2023-11-10 22:14 | XMS_ITS | Encounter Summary ---
[place] [address] Care Team Providers Care Mobile Sales Consultant Name Role Phone Cesilia Stokes MD Primary Care Provider [phone] Reason for Referral * Diagnostic Test (Routine) - Closed Specialty Diagnoses / Procedures Referred By Farrah shook Referred To Contact Radiology Diagnoses Encounter for screening mammogram for malignant neoplasm of breast Procedures Mammo Screening Cad and Juan Bilateral Cesilia Stokes MD [address] [place] [address] [place] [address] Referral ID Status Reason Start Date Expiration Date V isits Requested Visits Authorized [id number] Closed Specialty Service Requested 02/23/2021 08/23/2022 1 1 Reason for Visit * Diagnostic Test (Routine) - Closed Specialty Diagnoses / Procedures Referred By Farrah shook Referred To Contact Radiology Diagnoses Encounter for screening mammogram for malignant neoplasm of breast Procedures Mammo Screening Cad and Juan Bilateral Cesilia Stokes MD [address] [place] [address] [facility] [place] [address] Referral ID Status Reason Start Date Expiration Date V isits Requested Visits Authorized [id number] Closed Specialty Service Requested 02/23/2021 08/23/2022 1 1 Encounter Details Date Type Department Care Team (Latest Contact Info) Description 04/10/2021 1:53 PM EST - 04/10/2021 11:59 PM EST Hospital Encounter Mammography/[place] [address] Cesilia Stokes MD [address] [place] [address] Encounter for screening mammogram for malignant neoplasm of breast Discharge Disposition: Home Social History Tobacco Use [...] Procedure Name Priority Date/Time Associated Diagnosis Comments MAMMO SCREENING CAD AND JUAN BILATERAL Routine 04/10/2021 2:10 PM EST Encounter for screening mammogram for malignant neoplasm of breast documented in this encounter Results * Mammo Screening Cad and Juan Bilateral (04/10/2021 2:10 PM EST) Anatomical Region [...] this patient by the [facility]. BIRADS CATEGORY 1: NEGATIVE Electronically signed by: RAUL LIMA MD Cesilia Stokes MD IMG MAMMO ORDERABLES documented in this encounter Visit Diagnoses Diagnosis Encounter for screening mammogram for malignant neoplasm of breast Other screening mammogram documented in this encounter Care Teams Mobile Sales Consultant Relationship Specialty Start Date End Date Cesilia Stokes MD [address] [place] [address] PCP - General Family Medicine 01/09/21 documented as of this encounter
--- OUTSIDE RECORDS SUMMARY | 2023-11-10 22:14 | XMS_ITS | Encounter Summary ---
Author Organization [facility] Address [facility] [place] [address] Care Team Providers Care Director Trading Name Role Phone Ky Fernandez MD Primary Care Provider [phone] Reason for Visit * Reason Comments Epiretinal Membrane Encounter Details Date Type Department Care Team (Late st Contact Info) Description 02/28/2020 1:15 PM EST Office Visit Ophthalmology at [facility] [address] Jami Coon MD [facility] [place] [address] Epiretinal membrane (ERM) of left eye Social History Tobacco Use Types Packs/Day Years [...] as of this encounter Progress Notes * Jami Coon MD - 02/28/2020 1:15 PM EST ASSESSMENT/PLAN: 1. Epiretinal membrane (ERM) of left eye Visual Acuity Visual Acuity (Snellen - Linear) Right Left Dist cc 20/30 20/100 Dist ph cc NI 20/70 Near cc 20/25 20/60 Correction: Glasses Pt notes VA OS @ D&N is distorted 1. Epiretinal membrane, left eye Today 02/28/2020 -ERM is stable. Recommend observation. Not visually significant 2. Cataracts, both eyes -Clear from retina stand point to move forward with surgery. Follow up with retina in approx 1 year for 24-2 HVF and DFE, OCT OU Sooner PRN I, Rosangela Brantley, have performed the documentation for this encounter in the presence of, and acting as a scribe for Jami Coon MD. I performed the services which were documented by the scribe, and I agree with the accuracy of the documentation in this encounter. Jami Coon MD, PhD Extended Ophthalmoscopy Indication: 1. Epiretinal membrane (ERM) of left eye Technique: A) Indirect ophthalmoscopy with scleral depression B) Slit lamp exam with 90D/78D lens Findings: Main Ophthalmology Exam External Exam Right Left External Normal Normal Slit Lamp Exam Right Left Lids/Lashes MGD MGD Conjunctiva/Sclera White and quiet White and quiet Cornea central corneal clouding of Kang central corneal clouding of Kang Anterior Chamber Deep and quiet Deep and quiet Iris Round and reactive, Round and reactive Lens 2+ milky NS, scattered cortical ceruleans 2+ milky NS, scattered cortical ceruleans Fundus Exam Right Left Vitreous PVD PVD Disc Normal Normal C/D Ratio 0.3 0.3 Macula 1DD faint flat choroidal nevus temporal to fovea no lipofuscin no SRF ERM centrally with pseudohole appearance; faint choroidal pigment variation Vessels Normal Normal Periphery prominent cobblestone prominent cobblestone documented in this encounter Plan of Treatment Not on file documented as of this encounter Procedures Procedure Name Priority Date/Time Associated Diagnosis Comments OCT RETINA - OU - BOTH EYES Routine 02/28/2020 3:02 PM EST Epiretinal membrane (ERM) of left eye documented in this encounter Results * OCT Retina - OU - Both Eyes (02/28/2020 3:02 PM EST) Anatomical Region Laterality Modality Other Narrative 02/28/2020 3:02 PM EST Right Eye Quality was good. Scan locations included subfoveal. Progression has been stable. Findings include normal observations. Left Eye Quality was good. Scan locations included subfoveal. Progression has been stable. Findings include abnormal foveal contour, epiretinal membrane. Jami Coon MD OPHTHALMOLOGY SERVICES ORDERABLES documented in this encounter Visit Diagnoses Diagnosis Epiretinal membrane (ERM) of left eye documented in this encounter Care Teams Director Trading Relationship Specialty Start Date End Date Ky Fernandez MD [address] [place] [address] PCP - General Internal Medicine 12/26/15 01/08/21 documented as of this encounter
--- OUTSIDE RECORDS SUMMARY | 2023-11-10 22:14 | XMS_ITS | Encounter Summary ---
Author Organization [facility] [place] [address] Care Team Providers Care Sewing Machine Tester Name Role Phone Cesilia Stokes MD Primary Care Provider Encounter Details Date Type Department Care Team (Late st Contact Info) Description 01/20/2021 Telephone [place] [address] Odette Valdes Social History Tobacco Use Types Packs/Day Years [...] encounter Miscellaneous Notes * Telephone Encounter - Odette Valdes - 01/20/2021 3:55 PM EDT Gianna Infante [id number] Diagnosis/Indication: pancreatic lesion 1. Have you ever had a/an Upper EUS before? No If yes, did you have any problems with the procedure? No What type of sedation was used: None 2. Do you take any blood thinners or have you been diagnosed with a bleeding disorder that increases your risk of bleeding with procedures? No 3. Do you have a Pacemaker or Defibrillator device? No 4. Are you a diabetic? No 5. Do you have any Allergies to Eggs, Latex or Medications? Yes: SSRI 6. Do you take any Oral Iron Supplements (Including multi-vitamins)? Yes (Multivitamin) 7. Do you have a history of three or more abdominal surgeries? No 8. Have you had a problem with sedation or anesthesia? Yes nervious about anes, 9. Do you use a c-pap machine or oxygen tank? Neither 10. Do you take prescription narcotic pain medications, including suboxone or methodone? No 11. Do you have a preference regarding the gender of your provider? No Preference 12. Is there any other information you would like to us to note for the provider and nursing team who will perform your case? No 13. Say to patient: You must have a responsible libertarian who will drive you to your procedure, stay oncampus for the entire duration of your procedure, and drive you home from your procedure? *Please Verify the height and weight, and adjust if height and/or weight have changed* Estimated body mass index is 21.08 kg/m?? as calculated from the following: Height as of 06/25/20: 177.8 cm (5' 10). Weight as of 06/25/20: 66.6 kg (146 lb 14.4 oz). Age:75 y.o. documented in this encounter Plan of Treatment Not on file documented as of this encounter Visit Diagnoses Not on filedocumented in this encounter Care Teams Sewing Machine Tester Relationship Specialty Start Date End Date Cesilia Stokes MD [address] [place] [address] PCP - General Family Medicine 01/09/21 documented as of this encounter
--- OUTSIDE RECORDS SUMMARY | 2023-11-10 22:14 | XMS_ITS | Encounter Summary ---
Author Organization [facility] Address [facility] [place] [address] Care Team Providers Care Stitching Department Supervisor Name Role Phone Cesilia Stokes MD Primary Care Provider [phone] Encounter Details Date Type Department Care Team (Late st Contact Info) Description 06/02/2021 Orders [place] [address] Juan Antonio Alvarez MD [facility] [place] [address] Social History Tobacco Use Types Packs/Day Years [...] on filedocumented in this encounter Care Teams Stitching Department Supervisor Relationship Specialty Start Date End Date Cesilia Stokes MD [address] [place] [address] PCP - General Family Medicine 01/09/21 documented as of this encounter
--- OUTSIDE RECORDS SUMMARY | 2023-11-10 22:14 | XMS_ITS | Encounter Summary ---
Author Organization [facility] Address [facility] [place] [address] Care Team Providers Care Shape Brick Molder Name Role Phone Ky Fernandez MD Primary Care Provider + [phone] Reason for Visit * Reason Comments Cataract Encounter Details Date Type Department Care Team (Late st Contact Info) Description 02/14/2020 1:30 PM EST Office [place] [address] Jaden Garcia MD [facility] [place] [address] Combined forms of age-related cataract of both eyes Social History Tobacco Use Types Packs/Day Years [...] Progress Notes * Jaden Salcido MD - 02/14/2020 1:30 PM EST Gianna Infante is a 74 y.o. female referred by Dr. Coon for a cataract evaluation. 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 Glasses/contact lenses have not been able to improve the visualacuity or disabling symptoms of glare. Other significant ocular causes of visual decline have been ruled out. We discussed the risks of cataract surgery, including the risk of retinal detachment. We also discussed the benefits and alternatives to cataract surgery. 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 Pachy 510 OD and 502 OS. Patient understands that she may experience increased swelling after CE/IOL surgery. NO TORIC - Significant astigmatism she denies any history of amblyopia, patching or strabismus surgery in the past. No history of trauma or Flomax use. No PXE or phacodenesis noted on exam. Target Refraction: Near, -2.50. This was demonstrated in clinical again today. She understands thatshe will need to wear glasses for distance. Discussed that this is an estimate and that there wouldlikely be a post operative need for glasses to achieve best vision. Type of Cataract: OU: 2+ milky NS, scattered cortical ceruleans Special surgical issues: Corneal dystrophy, Extra Viscoat, BSS + Anesthesia: IVCS Dilation: 7 mm Allergies: Allergies Allergen Reactions ??? Bee Sting [Hymenoptera Allergenic Extract] ??? Wasp Venom Surgical orders entered Surgical consent signed POM and surgical coordination initiated Call prn any problems or questions. I, Yahaira Brunson, have performed the documentation [...] Procedure Name Priority Date/Time Associated Diagnosis Comments [id number] CALC BY LASER INTERFEROMETRY - OU - BOTH EYES Routine 02/14/2020 3:20 PM EST Combined forms of age-related cataract of both eyes documented in this encounter Results * [id number] Calc By Laser Interferometry - OU - Both Eyes (02/14/2020 3:20 PM EST) Anatomical Region Laterality Modality Other Narrative 02/14/2020 3:20 PM EST Physician PreOp Lens Selection Right Eye Style: SN60WF. Power: 19. Left Eye Style: SN60WF. Power: 18.5. General Details Left Eye. Right Eye. Notes Patient Hx Past Medical Hx ??Pt. ??has a past medical history of Allergic state, Anxiety, Arthritis, and Cataract. Past Ophth Surg Hx ??No relevant surgical history has been documented for this patient. Eye Meds ??EPINEPHrine, Teriparatide, alendronate, and ibuprofen IOL Biometry - Initial (source: LENSTAR) OD OS Date Performed 06/16/2018 10:29 AM 06/16/2018 10:29 AM ?? Target Refraction No Value exists for the CINDER SNAPPER: DHOPH#016 No Value exists for the CINDER SNAPPER: DHOPH#017 ?? Axial Length 25.5 (mm) 25.66 (mm) ?? Anterior Chamber Depth 3.9 (mm) 3.89 (mm) ?? Horizontal White to White 12.99 (mm) 13.09 (mm) ?? Formula Used ? K's 42.75@007 / 44.00@097 42.50@171 / 44.25@081 ? Add'l Comments/Discrepancies/Concerns: Good quality scans OU Jaden Garcia MD OPHTHALMOLOGY SE RVICES ORDERABLES documented in this encounter Visit Diagnoses Diagnosis Combined forms of age-related cataract of both eyes Other and combined forms of senile cataract documented in this encounter Care Teams Shape Brick Molder Relationship Specialty Start Date End Date Ky Fernandez MD [address] [place] [address] PCP - General Internal Medicine 12/26/15 01/08/21 documented as of this encounter
--- OUTSIDE RECORDS SUMMARY | 2023-11-10 22:14 | XMS_ITS | Encounter Summary ---
[place] [address] Care Team Providers Care Safety Lead Name Role Phone Cesilia Stokes MD Primary Care Provider [phone] Reason for Visit * Reason Comments Annual Exam Encounter Details Date Type Department Care Team (Late st Contact Info) Description 05/19/2021 1:30 PM EST Office Visit Dermatology at [address] [address] Cm Randall MD [address] [facility] [place] [address] Nevus; History of basal cell carcinoma Social History Tobacco Use Types Packs/Day Years [...] Progress Notes * Cm Randall MD - 05/19/2021 1:30 PM EST Problem: 1. ??Skin check 2. ??History of basal cell carcinoma right medial canthus, and inferior nasal tip, treated in [facility] 2008 ?? Gianna follows up today for her yearly skin checkup. She is dealing with osteoporosis and wonders what kind of sunscreen she should be using. She has not noted any particular skin lesions of concern. She reminds her that she grew up [place] in [place], and then later in [facility]. Physical examination was a pleasant 75 woman who has a benign examination of the hairbearing scalp the face the neck the chest back hands arms forearms thighs and calves. There is no evidence of any malignant lesions. Assessment plan: History of basal carcinomas, benign examination today 1. Patient reassured about today's benign skin examination 2. Recommend that she use SPF 50-70 sunscreen. Discussed Neutrogena products among others. 3. Would encourage her to have her vitamin D level checked and receive additional supplementation if needed. She is followed by endocrinology 4. Return to clinic 1 year for repeat check CC: Cesilia Stokes MD documented in this encounter Plan of Treatment Not on file documented as of this encounter Visit Diagnoses Diagnosis Nevus Benign neoplasm of skin, site unspecified History of basal cell carcinoma Personal history of other malignant neoplasm of skin documented in this encounter Care Teams Safety Lead Relationship Specialty Start Date End Date Cesilia Stokes MD [address] [place] [address] PCP - General Family Medicine 01/09/21 documented as of this encounter
--- OUTSIDE RECORDS SUMMARY | 2023-11-10 22:14 | XMS_ITS | Encounter Summary ---
[place] [address] Care Team Providers Care Night Patrol Inspector Name Role Phone Ky Fernandez MD Primary Care Provider [phone] Encounter Details Date Type Department Care Team (Latest Contact Info) Description 04/09/2020 10:34 AM EST - 04/09/2020 11:59 PM EST Hospital Encounter Mammography/[place] [address] Ky Fernandez MD [address] [place] [address] Visit for screening mammogram Discharge Disposition: Home Social History Tobacco Use [...] subcutaneously. 05/11/2021 documented as of this encounter Plan of Treatment Not on file documented as of this encounter Procedures Procedure Name Priority Date/Time Associated Diagnosis Comments MAMMO SCREENING CAD AND FABIO BILATERAL Routine 04/09/2020 10:58 AM EST Visit for screening mammogram documented in this encounter Results * Mammo Screening Cad and Fabio Bilateral (04/09/2020 10:58 AM EST) Anatomical Region Laterality Modality Breast Bilateral Mammography Narrative 04/09/2020 11:08 AM EST BILATERAL MAMMOGRAPHY REASON FOR EXAM: [...] [facility] BIRADS CATEGORY 1: NEGATIVE Ky Fernandez MD IMG MAMMO ORDERABLES documented in this encounter Visit Diagnoses Diagnosis Visit for screening mammogram Other screening mammogram documented in this encounter Care Teams Night Patrol Inspector Relationship Specialty Start Date End Date Ky Fernandez MD [address] [place] [id number] PCP - General Internal Medicine 12/26/15 01/08/21 documented as of this encounter
--- OUTSIDE RECORDS SUMMARY | 2023-11-10 22:14 | XMS_ITS | Encounter Summary ---
Author Organization [facility] Address [facility] [place] [address] Care Team Providers Care Loom Control Chain Builder Name Role Phone Ky Fernandez MD Primary Care Provider + [phone] Reason for Visit * Reason Onset Date Comments Questions 03/12/2020 CEIOL Encounter Details Date Type Department Care Team (Late st Contact Info) Description 03/12/2020 Telephone [place] [address] Jaden Garcia MD [facility] [place] [address] Questions (CEIOL) Social History Tobacco Use Types Packs/Day Years [...] encounter Miscellaneous Notes * Telephone Encounter - Marie Handley - 03/18/2020 1:13 PM EST Patient LM stating that she has not received a call from Dr. Balderas or team regarding her initial call with questions on 03/12. Patient is anxious to hear form the team. Forwarding message to Dr. Balderas and team for follow up. * Telephone Encounter - Marie Handley Jacqueline - 03/12/2020 9:39 AM EST Patient called with questions about her upcoming CEIOL That I could not answer for her. 1. Patient wants to know what type of correction she is getting after surgery. She expressed interest in being corrected for near distance and being able to wear glasses for distance. However, she doesn't remember discussing this with Dr. Balderas. 2. Patient stated that that she has dry eye/blephoritis and wants to know what she needs to do if it gets worse or needs antibiotics? She would like a call back with an answer to her questions. Forwarding message to Dr. Balderas and her team for follow up with patient. documented in this encounter Plan of Treatment Not on file documented as of this encounter Visit Diagnoses Not on filedocumented in this encounter Care Teams Loom Control Chain Builder Relationship Specialty Start Date End Date Ky Fernandez MD [address] [place] [address] PCP - General Internal Medicine 12/26/15 01/08/21 documented as of this encounter
--- OUTSIDE RECORDS SUMMARY | 2023-11-10 22:14 | XMS_ITS | Encounter Summary ---
Author Organization [facility] Address [facility] [place] [address] Care Team Providers Care Quality Process Auditor Name Role Phone Ky Fernandez MD Primary Care Provider + [phone] Reason for Visit * Reason Onset Date Comments Post Op Post Op 05/29/2020 Encounter Details Date Type Department Care Team (Late st Contact Info) Description 05/29/2020 2:45 PM EST Office [place] [address] Jaden Garcia MD [facility] [place] [address] Status post cataract extraction and insertion of intraocular lens, left; Pseudophakia Social History Tobacco Use Types Packs/Day [...] AM EST documented as of this encounter Patient Instructions * Patient Instructions* Jaden Salcido MD - 05/29/2020 2:45 PM EST Images from the original note were not included. Drop Name: Cap Color: Dose: 1 Drop Eye: Ketorolac Cmguire 4 x daily left eye Prednisolone Acetate 1% [place] or White 4 x daily left eye Vigamox (Moxifloxacin) Vidal 4 x daily left eye Bring all drops with you to every eye appointment! Use medications prescribed until told otherwise by your doctor ?? Wash your hands prior to instilling eye drops. ?? It does not matter what order you put the drops in. ?? Shake all drops well before instillation. ?? Wait 5-10 minutes between each drop ?? Do not panic if you feel you put too much in or even if you miss a dose-- just do the best you can. Too many drops are better than too few. ?? Preservative-free artificial tears can be used in case of irritation, dryness, or burning. Thesecan be used in both eyes if desired Avoid eye injury and infection! Following eye surgery your eye is more prone to injuries and infection. Therefore, special attention must be given to avoid inadvertent complications. ?? Do not rub your eye. ?? Wear eye protection at all times. (Glasses) ?? Wear eye shield while sleeping for one week. ?? Do not engage in activities that could result in a blow to your eye. ?? Do not engage in heavy physical activities that could cause you to strain. ?? Wash your hands frequently and especially before instilling eye drops. ?? Do not swim or bathe in contaminated water, for example pond or ogden or hot tub, for at least 1 week. ?? Showering and washing your hair is fine, but be mindful to avoid getting soap and water in the operative eye for the next few days. (Keep eye closed) Call the eye clinic at [phone] if you experience any unusual redness, pain, flashes or floaters, or vision changes. You can call this number day or night. After office hours, the soft sugar operator head will connect you with the doctor solutions specialist. documented in this encounter Progress Notes * Jaden Salcido MD - 05/29/2020 2:45 PM EST Assessment: Encounter Diagnoses Name Primary? Status post cataract extraction and insertion of intraocular lens, left ??? Pseudophakia Gianna Infante is POD#1 cataract surgery in her left eye Doing well with a normal post operative appearance. Plan: - Prednisolone acetate 1% qid in operative eye - Moxifloxicin qid in operative eye - Ketorolac qid in operative eye - Post op precaution sheet reviewed and given to patient Follow up: - 1 week or as needed. Upon return IOP OU MR operative eye documented in this encounter Plan of Treatment Not on file documented as of this encounter Visit Diagnoses Diagnosis Status post cataract extraction and insertion of intraocular lens, left Pseudophakia Lens replaced by other means documented in this encounter Care Teams Quality Process Auditor Relationship Specialty Start Date End Date Ky Fernandez MD [address] [place] [address] PCP - General Internal Medicine 12/26/15 01/08/21 documented as of this encounter
--- OUTSIDE RECORDS SUMMARY | 2023-11-10 22:14 | XMS_ITS | Encounter Summary ---
Author Organization [facility] Address [facility] [place] [address] Care Team Providers Care Administration Internship Name Role Phone Ky Fernandez MD Primary Care Provider + [phone] Encounter Details Date Type Department Care Team (Late st Contact Info) Description 07/06/2018 Telephone Ophthalmology [place] [address] Erika Maddox, OD [facility] [place] [address] Social History Tobacco Use Types Packs/Day Years [...] encounter Miscellaneous Notes * Telephone Encounter - Erika Maddox, OD - 07/06/2018 2:58 PM EDT Ground Crew Linesman Higinio called stating that patient had glasses Rx from me filled and is having blurry vision especially in her left eye. He wanted to confirm that it was okay to switch axis back to 70 degrees (Rx I dispensed was for an axis of 95 degrees). I confirmed that it was okay for Higinio to remake the glasses with the original axis of 70 degrees and let him know I would be happy to see the patient back if problems persist. Note: patient has inner lamellar hole and cataracts OS. documented in this encounter Plan of Treatment Not on file documented as of this encounter Visit Diagnoses Not on filedocumented in this encounter Care Teams Administration Internship Relationship Specialty Start Date End Date Ky Fernandez MD [address] [place] [id number] PCP - General Internal Medicine 12/26/15 01/08/21 documented as of this encounter
--- OUTSIDE RECORDS SUMMARY | 2023-11-10 22:14 | XMS_ITS | Encounter Summary ---
Author Organization [facility] Address [facility] [place] [address] Care Team Providers Care Fire Pot Operator Name Role Phone Ky Fernandez MD Primary Care Provider + [phone] Reason for Visit * Reason Onset Date Comments Other 06/18/2020 Calling to repor t gum infection Encounter Details Date Type Department Care Team (Late st Contact Info) Description 06/18/2020 Telephone [place] [address] Jaden Garcia MD [facility] [place] [address] Other (Calling to report gum infection) Social History Tobacco Use Types Packs/Day Years [...] encounter Miscellaneous Notes * Telephone Encounter - Melisa Encinas COT - 06/18/2020 12:55 PM EDT Patient states via VM; has gum infection and on antibiotics, will be x 7 days. Just wanted to give heads up due to pending CE surgery. Jaden Salcido MD at 06/06/2020 11:00 AM Author Type: Physician Status: Signed Digital Strategist: Jaden Salcido MD (Physician) ?? Assessment: ?? Encounter Diagnoses Name Primary? Status post cataract extraction and insertion of intraocular lens, left ? Pseudophakia ? Gianna Infante is s/p cataract surgery ~1 week in her left eye. Doing well with a normal 1 week post-operative appearance. ?? VA limited by macular pucker. Mac OCT today was stable. ?? Plan: ?? - Prednisolone acetate 1% tid OS for 7 days, then bid OS for 7 days, then qd OS for 7 days. - d/c Moxifloxicin - Ketorolac qid in OS until the bottle runs out. - Post op precaution sheet and new medication directions reviewed and given to patient. ? Follow Up: ?? CE/IOL OD surgery as planned on 06/25/2020 1-day HCK OD as scheduled on 06/26/2020 documented in this encounter Plan of Treatment Not on file documented as of this encounter Visit Diagnoses Not on filedocumented in this encounter Care Teams Fire Pot Operator Relationship Specialty Start Date End Date Ky Fernandez MD [address] [place] [address] PCP - General Internal Medicine 12/26/15 01/08/21 documented as of this encounter
--- OUTSIDE RECORDS SUMMARY | 2023-11-10 22:14 | XMS_ITS | Encounter Summary ---
Author Organization [facility] Address [facility] [place] [address] Care Team Providers Care Press Assistant Name Role Phone Ky Fernandez MD Primary Care Provider + [phone] Reason for Visit * Reason Comments Post Op Encounter Details Date Type Department Care Team (Late st Contact Info) Description 06/26/2020 2:15 PM EDT Office [place] [address] Jaden Garcia MD [facility] [place] [address] Status post cataract extraction and insertion of [...] * Patient Instructions* Jaden Salcido MD - 06/26/2020 2:15 PM EDT Images from the original note were not included. Drop Name: Cap Color: Dose: 1 Drop Eye: Ketorolac Mcguire 4 x daily right eye Prednisolone Acetate 1% [place] or White 4 x daily right eye Vigamox (Moxifloxacin) Vidal 4 x daily right eye Bring all drops with you to [...] eye closed) Call the eye clinic at [phone] if you experience any unusual redness, pain, flashes or floaters, or vision changes. You can call this number day or night. After office hours, the reaming machine operator for plastic will connect you with the doctor wetlands conservation laborer. documented in this encounter Progress Notes * Jaden Salcido MD - 06/26/2020 2:15 PM EDT Assessment: Encounter Diagnoses Name Primary? Status post cataract extraction and insertion of intraocular lens, right ??? Pseudophakia Gianna Infante is POD#1 cataract surgery in her right eye Doing well with a normal post [...] means documented in this encounter Care Teams Press Assistant Relationship Specialty Start Date End Date Ky Fernandez MD [address] [place] [address] PCP - General Internal Medicine 12/26/15 01/08/21 documented as of this encounter
--- OUTSIDE RECORDS SUMMARY | 2023-11-10 22:14 | XMS_ITS | Encounter Summary ---
Author Organization [facility] Address [facility] [place] [address] Care Team Providers Care Trapper Animal Name Role Phone Ky Fernandez MD Primary Care Provider + [phone] Reason for Visit * Reason Onset Date Comments Post Op CE/IOL OS Post Op 06/06/2020 Encounter Details Date Type Department Care Team (Late st Contact Info) Description 06/06/2020 11:00 AM EST Office [place] [address] Jaden Garcia MD [facility] [place] [address] Status post cataract extraction and insertion of [...] this encounter Patient Instructions * Patient Instructions* Erica Fuller - 06/06/2020 11:00 AM EST Images from the original note were not included. Drop Name: Cap Color: Dose: 1 Drop Eye: Ketorolac Mcguire 4 x daily until gone. left eye Prednisolone Acetate 1% [place] or White Taper as follows: 3 x daily for 7 days Then 2x daily for 7 days Then 1x daily for 7 days Then stop. left eye Vigamox (Moxifloxacin) Vidal STOP Ointment Small tube 2-3x daily as needed n/a Bring all drops with you to every eye appointment! There should be enough of these drops in the bottle provided to see you through this schedule. If you run out a few days before you are scheduled to end, it is okay to stop early. Use medications prescribed until told otherwise by [...] be used in both eyes if desired Call the eye clinic at [phone] if you experience any unusual redness, pain, flashes or floaters, or vision changes. You can call this number day or night. After office hours, the wire photo operator will connect you with the doctor vp integration. documented in this encounter Progress Notes * Jaden Salcido MD - 06/06/2020 11:00 AM EST Assessment: Encounter Diagnoses Name Primary? Status post cataract extraction and insertion of intraocular lens, left ??? Pseudophakia Gianna Infante is s/p cataract surgery ~1 week in her left eye. Doing well with a normal 1 week post-operative appearance. VA limited by macular pucker. Mac OCT today was stable. Plan: - Prednisolone acetate 1% tid OS for 7 days, then bid OS for 7 days, then qd OS for 7 days. - d/c Moxifloxicin - Ketorolac qid in OS until the bottle runs out. - Post op precaution sheet and new medication directions reviewed and given to patient. Follow Up: CE/IOL OD surgery as planned on 06/25/2020 1-day HCK OD as scheduled on 06/26/2020 Upon return: IOP OU MR operative eye Dilate documented in this encounter Plan of Treatment Not on file documented as of this encounter Visit Diagnoses Diagnosis Status post cataract extraction and insertion of intraocular lens, left Pseudophakia Lens replaced by other means documented in this encounter Care Teams Trapper Animal Relationship Specialty Start Date End Date Ky Fernandez MD [address] [place] [address] PCP - General Internal Medicine 12/26/15 01/08/21 documented as of this encounter
--- OUTSIDE RECORDS SUMMARY | 2023-11-10 22:14 | XMS_ITS | Encounter Summary ---
Author Organization [facility] Address [facility] [place] [address] Care Team Providers Care Junior Web Designer Name Role Phone Ky Fernandez MD Primary Care Provider + [phone] Reason for Visit * Reason Onset Date Comments Post Op Post Op 07/02/2020 Encounter Details Date Type Department Care Team (Late st Contact Info) Description 07/02/2020 10:00 AM EDT Office [place] [address] Jaden Garcia MD [facility] [place] [address] Status post cataract extraction and insertion of [...] this encounter Patient Instructions * Patient Instructions* Viridiana Raines - 07/02/2020 10:00 AM EDT Images from the original note were not included. Drop Name: Cap Color: Dose: 1 Drop Eye: Ketorolac Mcguire 4 x daily until gone. right eye Prednisolone Acetate 1% [place] or White Taper as follows: 3 x daily for 7 days Then 2x daily for 7 days Then 1x daily for 7 days Then stop. right eye Vigamox (Moxifloxacin) Vidal STOP Stop Ointment Small tube 2-3x daily as needed right eye Bring all drops with you [...] if desired Call the eye clinic at [phone] if you experience any unusual redness, pain, flashes or floaters, or vision changes. You can call this number day or night. After office hours, the irrigating pump operator will connect you with the doctor conservation technician. documented in this encounter Progress Notes * Jaden Salcido MD - 07/02/2020 10:00 AM EDT Assessment: Encounter Diagnoses Name Primary? Status post cataract extraction and insertion of intraocular lens, right ??? Pseudophakia Gianna Infante is s/p cataract surgery ~1 week in her right eye. Doing well with a normal 1 week post-operative appearance. Patient dilated OU and color vision tested (10/10 OU). Halo patient describes may be attributed to dry eyes. Advised to use preservative free artificial tears, four to six times a day to treat her dry eyes. Plan: - Prednisolone acetate 1% tid OD for 7 days, then bid OD for 7 days, then qd OD for 7 days. - d/c Moxifloxicin - Ketorolac qid in OD until the bottle runs out. - Post op precaution sheet and new medication directions reviewed and given to patient. Follow Up: 1 Month or as needed. Upon return: IOP OU MR operative eye Dilate documented in this encounter Plan of Treatment Not on file documented as of this encounter Visit Diagnoses Diagnosis Status post cataract extraction and insertion of intraocular lens, right Pseudophakia Lens replaced by other means documented in this encounter Care Teams Junior Web Designer Relationship Specialty Start Date End Date Ky Fernandez MD [address] [place] [address] PCP - General Internal Medicine 12/26/15 01/08/21 documented as of this encounter
--- OUTSIDE RECORDS SUMMARY | 2023-11-10 22:14 | XMS_ITS | Encounter Summary ---
Author Organization [facility] Address [facility] [place] [address] Care Team Providers Care Data Entry Name Role Phone Ky Fernandez MD Primary Care Provider + [phone] Encounter Details Date Type Department Care Team (Late st Contact Info) Description 05/27/2020 9:30 AM EST Office [place] [address] Jaden Garcia MD [facility] [place] [address] Combined forms of age-related cataract of both [...] Progress Notes * Jaden Salcido MD - 05/27/2020 9:30 AM EST Gianna Infante is a 74 y.o. [...] as of this encounter Visit Diagnoses Diagnosis Combined forms of age-related cataract of both eyes Other and combined forms of senile cataract documented in this encounter Care Teams Data Entry Relationship Specialty Start Date End Date Ky Fernandez MD [address] [place] [address] PCP - General Internal Medicine 12/26/15 01/08/21 documented as of this encounter
--- OUTSIDE RECORDS SUMMARY | 2023-11-10 22:14 | XMS_ITS | Encounter Summary ---
[place] [address] Care Team Providers Care Ductfixing Plumber Name Role Phone Ky Fernandez MD Primary Care Provider [phone] Encounter Details Date Type Department Care Team (Late st Contact Info) Description 06/25/2020 1:08 PM EDT - 06/25/2020 1:45 PM EDT Surgery [place] [address] Jaden Garcia MD [facility] [place] [address] CATARACT EXTRACTION, EXTRACAPSULAR, W/ LENS INSERTION (WRVU 7.35) Social History Tobacco Use Types Packs/Day Years [...] Cataract Surgery Dr Salcido Section of ophthalmology [facility] [phone] -Do not remove the eye patch or shield until you are seen tomorrow unless instructed otherwise by Dr. Salcido. - Wear either the eye shield or glasses of any kind 24 hours per day for the first week following surgery. - Your appointment tomorrow [facility] Bring your Eye Kit to all postoperative visits. - Call you Primary Care Doctor or the Emergency Room for any non eye related medical issues. - It is normal to have a scratchy sensation or mild pain in your eye, but if you have any severe eye pain, vomiting or bleeding call [phone] and ask to speak to the ophthalmology doctor contract assistant. - Your eye will be red tomorrow [...] questions please call: 8am to 5 pm -F - [phone] After 5 pm or on a weekend or holiday please call the hospital multi purpose machine operator at [phone] and ask foropthalmology MD contract assistant. documented in this encounter Medications at Time [...] Salcido MD - 06/25/2020 1:08 PM EDT [facility] Operative Note Patient Name: Gianna Infante : [...] Rmvl Insertion Io Lens Prosth W/O Ecp (99436) 06/25/2020 1:01 PM EDT Cataract documented in [...] Given 06/25/2020 12:07 PM EDT 1 drop fentaNYL (pf) (50 mcg/mL) multi-dose injection 25 mcg 25 mcg, Intravenous, EVERY 5 MIN PRN, Starting on Tue06/25/20 at 1148, Until Tue06/25/20 at 1338, Pain, For use in the Operating Room (OR), Outpatient Surgical Center (OSXC)C, or Special Procedure Room only under direct provider supervision and verbal order. Hold for respiratory rate less than 8 breaths per minute. (maximum dose 100 mcg), Intra-Operative (Intra-Procedure), Routine Given 06/25/2020 1:07 PM EDT 50 mcg ketorolac tromethamine (ACULAR) 0.5 % ophthalmic solution [...] 12:25 PM EDT 1,000 mLs 100 mL/hr midazolam (pf) (Versed) (1 mg/mL) multi-dose injection 0.25-1 mg 0.25-1 mg, Intravenous, EVERY 5 MIN PRN, Starting on Tue06/25/20 at 1148, Until Tue06/25/20 at 1338, Anxiety, For use in the Operating Room (OR), Outpatient Surgery Center (OSC) or Special Procedure room only with direct provider supervision and verbal order. Hold for delirium/agitation. (Maximum dose 4 mg), Intra-Operative (Intra-Procedure), Routine Given 06/25/2020 1:13 PM EDT 0.5 mg Given 06/25/2020 1:07 PM EDT 1 mg moxifloxacin (VIGAMOX) 0.5 % ophthalmic solution 1 [...] RN) documented in this encounter Care Teams Ductfixing Plumber Relationship Specialty Start Date End Date Ky Fernandez MD [address] [place] [address] PCP - General Internal Medicine 12/26/15 01/08/21 documented as of this encounter
--- OUTSIDE RECORDS SUMMARY | 2023-11-10 22:14 | XMS_ITS | Encounter Summary ---
Author Organization [facility] [place] [address] Care Team Providers Care Woods Boss Name Role Phone Ky Fernandez MD Primary Care Provider + [phone] Reason for Visit * Reason Onset Date Comments Follow-up 08/29/2019 Encounter Details Date Type Department Care Team (Late st Contact Info) Description 08/29/2019 Telephone Ophthalmology at [facility] [place] [address] Jami Coon [place] [facility] [address] Follow-up Social History Tobacco Use Types Packs/Day Years [...] encounter Miscellaneous Notes * Telephone Encounter - Xin Luo - 08/29/2019 10:26 AM EDT Patient scheduled * Telephone Encounter - Prabha Mix - 08/29/2019 9:54 AM EDT I have called and left a message for patient to call and schedule an appointment. Follow up with any cataract MD next available for formal cataract evaluation Follow up with retina in approx 6 months for DFE, OCT OU documented in this encounter Plan of Treatment Not on file documented as of this encounter Visit Diagnoses Not on filedocumented in this encounter Care Teams Woods Boss Relationship Specialty Start Date End Date Ky Fernandez MD [address] [place] [address] PCP - General Internal Medicine 12/26/15 01/08/21 documented as of this encounter
--- OUTSIDE RECORDS SUMMARY | 2023-11-10 22:14 | XMS_ITS | Encounter Summary ---
Author Organization [facility] Address [facility] [place] [address] Care Team Providers Care Customer Success Representative Name Role Phone Ky Fernandez MD Primary Care Provider + [phone] Reason for Visit * Reason Comments Eye Exam Cataract Epiretinal Membrane Encounter Details Date Type Department Care Team (Late st Contact Info) Description 04/02/2019 1:00 PM EST Office Visit Ophthalmology at [facility] [place] [address] Erika Maddox, OD [facility] [place] [address] Combined forms of age-related cataract of both eyes; Epiretinal membrane (ERM) of left eye; Macular cyst, hole, or pseudohole, left eye; Choroidal nevus, right eye; Myopia of both eyes with astigmatism and presbyopia Social History Tobacco Use Types Packs/Day Years [...] this encounter Patient Instructions * Patient Instructions* Erika Maddox, OD - 04/02/2019 1:00 PM EST DRY EYE SYNDROME INFORMATION SHEET As we discussed, you have dryness of your eyes/eyelids that is likely causing the chronic irritation/dryness you are experiencing. What is dry eye disease? Diagnosis of dry eye disease is becoming more common. Dry eye disease is commonly associated with age, contact lens wear, low humidity environments, prolonged computer/device usage, hormonal changes,increasing age, and cigarette smoking. Dry eye syndrome can be evaporative in nature, aqueous deficient, or a combination of both. Evaporative dry eye is a common condition where the glands of the eyelids become blocked or inflamed. Theseglands secrete oils that spread over your tear film every time you blink to prevent your natural tears from evaporating. These oils are necessary for maintaining a healthy tear film. If the glands become clogged and inflamed this is known as Blepharitis, and your eyes may feel dry, irritated, scratchy or burning. Other symptoms are redness, stickiness, grittiness, tearing and a ???film?? over the vision. If the condition is not treated, you may develop styes, chalazions (hard bumps on the lids) or lid scarring and loss of eyelashes. Blepharitis is often found in people that have rosacea which is a skin condition that consists of redness of the cheeks, forehead and nose. Fortunately, dry eye syndrome is a very treatable condition. The mainstay of treatment is good daily cleansing of the eyelids and warm compresses. Here are the instructions: - Wash your hands and fingertips well. - Use a clean wash cloth soaked in hot (but not burning) water. Hold the cloth gently against your closed eyes and reheat the cloth every 2-3 minutes. Massage above the eyelids with your eyes closed. - After 10 minutes of application, with your eyes closed, take your fingers and gently rub across the lashes, freeing up any accumulated debris. Do this for 15- 30 seconds. Avoid touching the eyeball directly. - Rinse the lashes with water and pat dry. You should perform the above cleaning regimen at least twice a day. It is my recommendation that you perform warm compresses. This will help spread the oil layer over your tear film more thoroughly to prevent evaporation of your body's natural tears. Lid hygiene should be performed by using lid scrubs with either OcuSoft or similar eyelid wipes that can be purchased over the counter. Dilute Jhonatan&Jhonatan's Baby Shampoo may also be used. SteriLid?? or ???Ocuscrub?? are other products that can also be used on the fingertips for cleansing the lashes. These help to actually kill the bacteria that sometimes live on the lashes. The following are other things you can do for blepharitis. All products are sold over the counter. Some people find a dietary capsule supplement of [place] 3 Fatty Acids (EPA 450mg and DHA 300mg) and Flaxseed Oil (1000mg) help their eye comfort. Please take 8221-4154 mg of omega 3 fatty acids per day. These products can be bought in a [employer] store or there is a capsule called ???TheraTears Nutrition?? containing these ingredients. (If you have underlying medical conditions, you should check with your primary care physician to make sure it is safe for you to use this product). For dry eye, use AM and PM (preservative free) drops noted below 4 to 6 times per day. Do NOT use ???Visine products that say ???gets the red out, as overtime because of their mechanism of action these products can result in rebound redness. A new drop that is over the counter called Lumify is a good drop to use for eye redness relief and does not cause rebound redness since it has a different mechanism of action from Visine. AM Drops (Use 4-6 times per day or as needed) - DAYTIME DROPS TheraTears Refresh (RefreshPlus) GenTeal Systane (Systane Complete) PM Drops (Use once at night in both eyes before you go to bed) - NIGHT-TIME DROPS (because gels andointments can temporarily blur your vision after instillation) Refresh PM Systane Gel GenTeal Gel Usually your eye comfort will improve after 4-6 weeks of treatment. If not, your eye doctor will discuss the situation and other options with you. This is a chronic condition that took a long time to develop, your symptoms will not improve overnight. Keep up with the treatment daily for at least a few weeks, and then you can try reducing to just a few times per week thereafter. documented in this encounter Progress Notes * Erika Maddox, OD - 04/02/2019 1:00 PM EST Gianna Infante is a 73 y.o. female who had concerns including Eye Exam; Cataract; and Epiretinal Membrane. Encounter Diagnoses Name Primary? Combined forms of age-related cataract of both eyes ??? Epiretinal membrane (ERM) of left eye ??? Macular cyst, hole, or pseudohole, left eye ??? Choroidal nevus, right eye ??? Myopia of both eyes with astigmatism and presbyopia Assessment: 1) Epiretinal membrane with lamellar hole left eye * BCVA OS 20/40 * Macula OCT (04/02/2019) = stable. OD: Normal foveal contour; all layers intact without disruption OS: Inner-lamellar hole with small inner-retinal cystic changes and central ERM; outer retinal layers intact; no SRF/IRF 2) Cataracts OU * Cataract surgery consult by Dr. Thompson 06/16/18: not visually significant, monitor. * BCVA OD 20/20, BAT 20/25 * BCVA OS 20/40, BAT 20/50, JIMMY 20/25 3) Choroidal nevus right eye * No suspicious characteristics * Fundus photos 03/30/18 = stable appearance 4) Posterior vitreous detachment OU 5) Dry eye syndrome OU Current tx: Refresh ATs PRN 6) Refractive error / presbyopia OU Plan: 1) Continue monocular vision checks with home Amsler grid, pt to RTC stat with changes. Patient requesting consult with a retina specialist. 2) Very bothered by glare. Her potential acuity demonstrates improvement OS despite macular pathology. Monitor. 3) Monitor. 4) RD precautions reviewed: patient was educated to RTC stat with new onset flashes, floaters, curtain over vision, or other visual changes. Monitor. 5) Continue ATs and WCs PRN. 6) Updated MRx dispensed. Wants to try DVO glasses as she prefers to take glasses off for near. Follow up: 4 months retina consult per pt request for ERM + pseudo-hole OS. Optometry 1 year CEE. Eyeglass Final Rx Eyeglass Final Rx Sphere Cylinder [place] Add Right -3.50 +1.25 110 +3.00 Left -4.75 +1.75 070 +3.00 Type: PAL Expiration Date: 04/02/2021 Comments: Anti-reflective documented in this encounter Plan of Treatment Not on file documented as of this encounter Procedures Procedure Name Priority Date/Time Associated Diagnosis Comments OCT RETINA - OU - BOTH EYES Routine 04/02/2019 2:11 PM EST Epiretinal membrane (ERM) of left eye Macular cyst, hole, or pseudohole, left eye documented in this encounter Results * OCT Retina - OU - Both Eyes (04/02/2019 2:11 PM EST) Anatomical Region Laterality Modality Other Narrative 04/02/2019 2:11 PM EST OCT MACULA = stable OD: Normal foveal contour; all layers intact without disruption OS: Inner-lamellar pseudo-hole with small inner-retinal cystic changes with ERM; outer retinal layers intact; no SRF/IRF Erika Maddox OD OPHTHALMOLOGY SERVIC ES ORDERABLES documented in this encounter Visit Diagnoses Diagnosis Combined forms of age-related cataract of both eyes Other and combined forms of senile cataract Epiretinal membrane (ERM) of left eye Macular cyst, hole, or pseudohole, left eye Choroidal nevus, 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
--- OUTSIDE RECORDS SUMMARY | 2023-11-10 22:14 | XMS_ITS | Encounter Summary ---
Author Organization [facility] Address [facility] [place] [address] Care Team Providers Care Flyer Repairer Name Role Phone Ky Fernandez MD Primary Care Provider + [phone] Encounter Details Date Type Department Care Team (Late st Contact Info) Description 05/26/2020 Telephone [place] [address] Jaden Garcia MD [facility] [place] [address] Social History Tobacco Use Types Packs/Day Years [...] * Telephone Encounter - Amaury Palma - 05/26/2020 10:49 AM EST Called and left VM for patient to call and discuss her decision for wanting to be corrected for near vision vs. Distance. Please contact Da to discuss. documented in this encounter Plan of Treatment Not on file documented as of this encounter Visit Diagnoses Not on filedocumented in this encounter Care Teams Flyer Repairer Relationship Specialty Start Date End Date Ky Fernandez MD [address] [place] [address] PCP - General Internal Medicine 12/26/15 01/08/21 documented as of this encounter
--- OUTSIDE RECORDS SUMMARY | 2023-11-10 22:14 | XMS_ITS | Encounter Summary ---
Author Organization [facility] Address [facility] [place] [address] Care Team Providers Care Internet Systems Administrator Name Role Phone Cesilia Stokes MD Primary Care Provider [phone] Encounter Details Date Type Department Care Team (Late st Contact Info) Description 05/06/2021 Orders [place] [address] Douglas Lui MD [facility] [address] Pancreas cyst (Primary Dx) Social History Tobacco Use Types Packs/Day Years [...] as of this encounter Visit Diagnoses Diagnosis Pancreas cyst- Primary Cyst and pseudocyst of pancreas documented in this encounter Care Teams Internet Systems Administrator Relationship Specialty Start Date End Date Cesilia Stokes MD [address] [place] [address] PCP - General Family Medicine 01/09/21 documented as of this encounter
--- OUTSIDE RECORDS SUMMARY | 2023-11-10 22:14 | XMS_ITS | Encounter Summary ---
Author Organization [facility]ly [facility] Address [facility] [place] [address] Care Team Providers Care Crop Grain Or Livestock Farmer Name Role Phone Ky Fernandez MD Primary Care Provider [phone] Reason for Visit * Reason Comments Epiretinal Membrane Encounter Details Date Type Department Care Team (Late st Contact Info) Description 08/28/2019 1:30 PM EDT Office Visit Ophthalmology at [facility] [place] [address] Jami Coon MD [facility] [place] [address] Epiretinal membrane (ERM) of left eye Social [...] Progress Notes * Jami Coon MD - 08/28/2019 1:30 PM EDT ASSESSMENT/PLAN: 1. Epiretinal membrane (ERM) of left eye Visual Acuity Visual Acuity (Snellen - Linear) Right Left Dist cc 20/20 -1 20/60 -2+2 Dist ph cc 20/40 -1 Near cc 20/20-3 20/70 Correction: Glasses 1. Epiretinal membrane, left eye Dr. Maddox thank you for the kind referral. Today's fundoscopic exam and multimodal imaging shows epiretinal membrane in the left eye. Discussed the treatment options that include 1) observation and 2) PPV-MP. Emphasized that the primary goal of the surgery is to decrease the metamorphopsia while the visual acuity also improves by afew lines. Discussed that even though the anatomic success rates of the vitrectomy surgery is high, the visual recovery is usually incomplete in eyes with chronic membranes. ASRS fact sheet given Given the good vision and the absence of significant metamorphopsia, we agreed to monitor conservatively at this point, given that the risks of the procedure outweigh the benefits. Amsler grid was given, and recommended regular use in order to monitor the progression of the ERM. 2. Cataracts, both eyes - Starting to become visually significant at this time. Recommend following up with any cataract MDnext available for formal evaluation. Follow up with any cataract MD next available for formal cataract evaluation Follow up with retina in approx 6 months for DFE, OCT OU Sooner PRN Jami Coon MD, PhD Extended Ophthalmoscopy Indication: [...] Round and reactive, Round and reactive Lens 1+ milky NS, scattered cortical ceruleans 2+ milky NS, scattered cortical ceruleans Fundus Exam Right Left Vitreous PVD PVD Disc Normal; rim tissue pink and healthy 360 w/o notch, heme, or thinning; disc margins flat and distinct 360 Normal; rim tissue pink and healthy 360 w/o notch, heme, or thinning; disc margins flat and distinct 360 C/D Ratio 0.3 0.3 Macula 1DD faint flat choroidal nevus temporal to fovea no lipofuscin no SRF ERM centrally with pseudohole appearance; faint choroidal pigment variation Vessels Normal course and caliber; A/V ratio 2/3 Normal course and caliber; A/V ratio 2/3 Periphery prominent cobblestone prominent cobblestone documented in this encounter Plan of Treatment Not on file documented as of this encounter Procedures Procedure Name Priority Date/Time Associated Diagnosis Comments OCT RETINA - OU - BOTH EYES Routine 08/28/2019 4:00 PM EDT Epiretinal membrane (ERM) of left eye documented in this encounter Results * OCT Retina - OU - Both Eyes (08/28/2019 4:00 PM EDT) Anatomical Region Laterality Modality Other Narrative 08/28/2019 4:00 PM EDT Right Eye Quality was good. Scan locations included subfoveal. Progression has no prior data. Findings include normal observations. Left Eye Quality was good. Scan locations included subfoveal. Progression has no prior data. Findings include abnormal foveal contour, epiretinal membrane. Notes OCT MACULA = stable OD: Normal foveal contour; all layers intact without disruption OS: Inner-lamellar pseudo-hole with small inner-retinal cystic changes with ERM; outer retinal layers intact; no SRF/IRF Jami Coon MD OPHTHALMOLOGY SERVICES ORDERABLES documented in this encounter Visit Diagnoses Diagnosis Epiretinal membrane (ERM) of left eye documented in this encounter Care Teams Crop Grain Or Livestock Farmer Relationship Specialty Start Date End Date Ky Fernandez MD [address] [place] [address] PCP - General Internal Medicine 12/26/15 01/08/21 documented as of this encounter
--- OUTSIDE RECORDS SUMMARY | 2023-11-10 22:14 | XMS_ITS | Encounter Summary ---
Author Organization [facility] [place] [address] Care Team Providers Care Craniologist Name Role Phone Cesilia Stokes MD Primary Care Provider [phone] Encounter Details Date Type Department Care Team (Late st Contact Info) Description 02/23/2021 [place] [address] Odette Valdes Social History Tobacco Use Types [...] * Telephone Encounter - Odette Valdes - 02/23/2021 2:37 PM EST Gianna Infante [id number] Diagnosis/Indication: disease of pancreas 1. Have you ever had a/an Upper [...] Allergies to Eggs, Latex or Medications? Yes: see edh 6. Do you take any Oral Iron Supplements (Including multi-vitamins)? Yes (Multivitamin) 7. Do you have a history of three or more abdominal surgeries? No 8. Have you had a problem with sedation or anesthesia? No 9. Do you use a c-pap machine or oxygen tank? Neither 10. Do you take prescription narcotic pain medications, including suboxone or methodone? No 11. Do you have a preference regarding the gender of your provider? No Preference 12. Is there any other information you would like to us to note for the provider and nursing team who will perform your case? Yes: pt is anxious 13. Say to patient: You must have [...] on filedocumented in this encounter Care Teams Craniologist Relationship Specialty Start Date End Date Cesilia Stokes MD [address] [place] [address] PCP - General Family Medicine 01/09/21 documented as of this encounter
--- OUTSIDE RECORDS SUMMARY | 2023-11-10 22:14 | XMS_ITS | Encounter Summary ---
Author Organization [facility] Address [facility] [place] [address] Care Team Providers Care Quality Control Expert Name Role Phone Ky Fernandez MD Primary Care Provider [phone] Encounter Details Date Type Department Care Team (Late st Contact Info) Description 05/28/2020 1:17 PM EST - 05/28/2020 1:54 PM EST Surgery [facility] [place] [address] Jaden Garcia MD [facility] [place] [address] CATARACT EXTRACTION, EXTRACAPSULAR, W/ LENS INSERTION (WRVU [...] Sign Reading Time Taken Comments Blood Pressure 151/91 05/28/2020 12:10 PM EST Pulse 76 05/28/2020 12:10 PM EST Temperature 36.5 ??C (97.7 ??F) 05/28/2020 12:[address] Respiratory Rate 18 05/28/2020 12:10 PM EST Oxygen Saturation 96% 05/28/2020 12:10 PM EST Inhaled Oxygen Concentration - - Weight 65.8 kg (145 lb) 05/28/2020 12:10 PM EST Height 177.8 cm (5' 10) 05/28/2020 12:10 PM EST Body Mass Index 20.81 05/28/2020 12:10 PM EST documented in this encounter Discharge Instructions * Discharge Instructions* Rusty Saha RN - 05/28/2020 11:57 AM EST Instructions following CATARACT surgery Dr. Salcido Section of ophthalmology [facility] [phone] - Wear either the eye shield or glasses of any kind 24 hours per day for the first week following surgery. - Your [facility] Bring your [facility] Kit to all postoperative visits. - Call you Primary Care Doctor or the Emergency Room for any non eye related medical issues. - It is normal to have a scratchy sensation or mild pain in your eye, but if you have any severe eye pain, vomiting or bleeding call [phone] and ask to speak to the ophthalmology doctor exploitation analyst. - Your eye will be red tomorrow [...] 8 am - 5pm call ophthalmology : [phone] After 5pm or on a weekend or holiday: call the [facility] multilith operator and ask for the ophthalmology physician exploitation analyst. documented in this encounter Medications at Time [...] allergic reaction (Throat tight, difficulty breathing). Call [phone] as directed. clindamycin-benzoyl peroxide (BENZACLIN) 1-5 % [...] for discharge accompanied by [facility] staff member. Y * Isabela Stanley RN - 05/27/2020 2:18 PM EST During this call the patient was questioned regarding travel outside of [place], fever, cough, SOB or other illness [...] again, temperature will be taken, patient and caregiver/semi driver will be given a mask to wear the entire time they are in the [facility] building. * Anna Davies RN - 05/21/2020 10:51 AM EST During this call the patient was questioned regarding travel outside of [place], fever, cough, SOB or other illness [...] again, temperature will be taken, patient and caregiver/semi driver will be given a mask to [...] Salcido MD - 05/28/2020 2:22 PM EST [facility] Operative Note Patient Name: [...] Rmvl Insertion Io Lens Prosth W/O Ecp ([id number]) 05/28/2020 2:16 PM EST Cataract documented in this encounter Visit Diagnoses Not on filedocumented in this encounter Administered Medications Inactive Administered Medications - up to 3 most recent administrations Medication Order MAR Action Action Date Dose Rate Site fentaNYL (pf) (50 mcg/mL) multi-dose injection 25 [...] dose 100 mcg), Intra-Operative (Intra-Procedure), Routine Given 05/28/2020 2:21 PM EST 25 mcg ketorolac tromethamine (ACULAR) 0.5 % ophthalmic [...] 1:50 PM EST 1,000 mLs 100 mL/hr midazolam (pf) (Versed) [...] dose 4 mg), Intra-Operative (Intra-Procedure), Routine Given 05/28/2020 2:24 PM EST 0.5 mg Given 05/28/2020 2:19 PM EST 1 mg moxifloxacin (VIGAMOX) 0.5 % ophthalmic [...] 1215 (Given - Provid er: Rusty Saha RN)122 (Given - Provider: Rusty Saha RN)1225 (Given [...] Rusty Saha RN)1220 (Given - Provider: Rusty Saah RN)1225 (Given - Provider: Rusty Saha RN) [...] Tue05/28/20 at 1335, Rusty Saha: cabinet override 1335 (Given - Provid er: Rusty Saha RN) documented in this encounter Care Teams Quality Control Expert Relationship Specialty Start Date End Date Ky Fernandez MD [address] [place] [address] PCP - General Internal Medicine 12/26/15 01/08/21 documented as of this encounter
--- OUTSIDE RECORDS SUMMARY | 2023-11-10 22:14 | XMS_ITS | Encounter Summary ---
Author Organization [facility] Address [facility] [place] [address] Care Team Providers Care Lug Loader Name Role Phone Ky Fernandez MD Primary Care Provider + [phone] Encounter Details Date Type Department Care Team (Late st Contact Info) Description 12/19/2020 9:30 AM EDT Office Visit Ophthalmology at [facility] [place] [address] Jami Coon MD [facility] [place] [address] Epiretinal membrane (ERM) of left eye Social [...] Progress Notes * Jami Coon MD - 12/19/2020 9:30 AM EDT ASSESSMENT/PLAN: 1. Epiretinal membrane (ERM) of left eye Visual Acuity Visual Acuity (Snellen - Linear) Right Left Dist cc 20/20 20/25 Near cc 20/30 20/40-2 1. Epiretinal membrane, left eye Today 12/19/2020 -ERM is stable. Not visually significant Recommend observation. 2. Cataracts, both eyes -Clear from retina stand point to move forward with surgery. 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 Discussed the option of Pilo1% for temporary miosis and the patient is interested. DIscussed the risk of ache/pain after application. Also discourageddriviong during the adaptation period given that the small pupil might limit the visual function. Follow up with retina PRN Extended Ophthalmoscopy Indication: 1. Epiretinal membrane (ERM) of left eye Technique: A) Indirect ophthalmoscopy with scleral depression B) Slit lamp exam with 90D/78D lens Findings: Main Ophthalmology Exam External Exam Right Left External Normal Normal Slit Lamp Exam Right Left Lids/Lashes MGD MGD Conjunctiva/Sclera White and quiet White and quiet Cornea central corneal clouding of Kang PEE, central corneal clouding of Kang Anterior Chamber Deep and quiet Deep and quiet Iris Round and reactive Round and reactive Lens PCIOL PCIOL Fundus Exam Right Left Vitreous PVD PVD [...] Procedure Name Priority Date/Time Associated Diagnosis Comments AUTOMATED VISUAL FIELD - INTERMEDIATE - OU- BOTH EYES Routine 12/19/2020 11:29 AM EDT Epiretinal membrane (ERM) of left eye OCT RETINA - OU - BOTH EYES Routine 12/19/2020 11:21 AM EDT Epiretinal membrane (ERM) of left eye documented in this encounter Results * Automated Visual Field - Intermediate - OU - Both Eyes (12/19/2020 11:29 AM EDT) Anatomical Region Laterality Modality Other Narrative 12/19/2020 11:29 AM EDT Right Eye Threshold was 10-2. Strategy was KHADRA. Reliability was good. Progression has no prior data. Foveal threshold was normal. Findings include normal observations. Left Eye Threshold was 10-2. Strategy was KHADRA. Reliability was good. Progression has no prior data. Foveal threshold was normal. Findings include normal observations. Jami Coon MD OPHTHALMOLOGY SERVICES ORDERABLES * OCT Retina - OU - Both Eyes (12/19/2020 11:21 AM EDT) Anatomical Region Laterality Modality Other Narrative 12/19/2020 11:21 AM EDT Right Eye Quality was good. Scan locations included subfoveal. Progression has been stable. Findings include normal observations. Left Eye Quality was good. Scan locations included subfoveal. Progression has been stable. Findings include abnormal foveal contour, epiretinal membrane. Jami Coon MD OPHTHALMOLOGY SERVICES ORDERABLES documented in this encounter Visit Diagnoses Diagnosis Epiretinal membrane (ERM) of left eye documented in this encounter Care Teams Lug Loader Relationship Specialty Start Date End Date Ky Fernandez MD [address] [place] [address] PCP - General Internal Medicine 12/26/15 01/08/21 documented as of this encounter
--- OUTSIDE RECORDS SUMMARY | 2023-11-10 22:14 | XMS_ITS | Encounter Summary ---
Author Organization [facility] [place] [address] Care Team Providers Care Ship Propeller Finisher Name Role Phone Cesilia Stokes MD Primary Care Provider [phone] Reason for Referral * Consultation (Routine) - Closed Specialty Diagnoses / Procedures Referred By Contac t Referred To Contact Endocrinology Diagnoses Osteoporosis, unspecified osteoporosis type, unspecified pathological fracture presence Cesilia Stokes MD [address] [place] [address] [facility] [address] [place] [phone] Referral ID Status Reason Start Date Expiration Date V isits Requested Visits Authorized [id number] Closed Consult, Test & Treat PCP Updated and/or Approved 05/01/2021 07/24/2021 12 12 Encounter Details Date Type Department Care Team (Latest Contact Info) Description 05/05/2021 Transcribe [place] [address] Cesilia Stokes MD [address] [place] [address] Osteoporosis, unspecified osteoporosis type, unspecified pathological fracture [...] as of this encounter Plan of Treatment Scheduled Referrals Name Type Priority Associated Diagnoses Orde r Schedule Referral to Endocrinology Outpatient Referral Routine Osteoporosis, unspecified osteoporosis type, unspecified pathological fracture presence Ordered: 05/05/2021 documented as of this encounter Visit Diagnoses Diagnosis Osteoporosis, unspecified osteoporosis type, unspecified pathological fracture presence documented in this encounter Care Teams Ship Propeller Finisher Relationship Specialty Start Date End Date Cesilia Stokes MD [address] [place] [address] PCP - General Family Medicine 01/09/21 documented as of this encounter
--- OUTSIDE RECORDS SUMMARY | 2023-11-10 22:14 | XMS_ITS | Encounter Summary ---
[place] [address] Care Team Providers Care Meal Room Hand Name Role Phone Ky Fernandez MD Primary Care Provider [phone] Encounter Details Date Type Department Care Team (Late st Contact Info) Description 01/06/2021 Ancillary Procedure [place] [address] Cesilia Stokes MD [address] [place] [address] Social History Tobacco Use Types Packs/Day Years [...] Procedure Name Priority Date/Time Associated Diagnosis Comments FILM LIBRARY STORAGE ONLY CT ABDOMEN AND PELVIS Routine 01/06/2021 12:00 AM EDT documented in this encounter Results * Film Library- Storage Only CT Abdomen & Pelvis (01/06/2021 12:00 AM EDT) Narrative [facility] - 01/13/2021 9:19 AM EDT This exam is auto-finalizing. It's purpose is for storage only. Cesilia Stokes MD IM FILM LIBRARY ORD ERABLES [place], [place] documented in this encounter Visit Diagnoses Not on filedocumented in this encounter Care Teams Meal Room Hand Relationship Specialty Start Date End Date Ky Fernandez MD [address] [place] [address] PCP - General Internal Medicine 12/26/15 01/08/21 documented as of this encounter
--- OUTSIDE RECORDS SUMMARY | 2023-11-10 22:14 | XMS_ITS | Encounter Summary ---
Author Organization [facility] Address [facility] [place] [address] Care Team Providers Care Copyright Expert Name Role Phone Cesilia Stokes MD Primary Care Provider [phone] Encounter Details Date Type Department Care Team (Late st Contact Info) Description 04/28/2021 11:00 AM EST - 04/28/2021 12:15 PM EST [place] [address] Douglas Lui MD [facility] [place] [address] UPPER EUS- ENDOSCOPIC ULTRASOUND (WRVU 3.47) Social History Tobacco Use Types Packs/Day Years [...] the day after the procedure, use an rsqr-mso-tafvxqk spray to numb your throat. Sucking on [...] occurs, please contact your Doctor. Please call [phone] before 8pm Mon-Fri with problems, questions or concerns. If you call after 8pm or on weekends, call the Hospital at [phone] and ask to speak to the Nursing Teacher road freight conductor and the fountain operator will contact that person for you. When should you call for help? Call [phone] anytime you think you may need emergency [...] any problems. Where can you learn more? [facility] View your After Visit Summary and more online at [email or web address] If you would like to provide feedback [...] cost to you. Content Version: 12.2 ?? 2642-3288 [employer]. Care instructions adapted under license by [facility]. If you have questions about a medical condition or this instruction, always ask your healthcare professional. [employer] disclaims any warranty or liability for your [...] encounter Miscellaneous Notes * Op Note - Dougals Lui MD - 04/28/2021 10:58 AM EST [facility] [place] Note Patient Name: Gianna Infante : [id number] MR#: [id number] Case Date: 04/28/2021 Surgeon: Surgeon(s) and Role: * Douglas Lui MD - Primary Preoperative diagnosis: pancreatic lesion Postoperative diagnosis: * No post-op diagnosis entered * Procedure(s) (LRB): FINE NEEDLE ASPIRATION BIOPSY, INC US GUIDANCE; FIRST LESION (N/A) UPPER EUS- ENDOSCOPIC ULTRASOUND (N/A) Anesthesia: MAC Full procedure note is documented under the Procedure section of [facility]. documented in this encounter Plan of Treatment Not on file documented as of this encounter Procedures Procedure Name Priority Date/Time Associated Diagnosis Comments NON-GOLD RECLAIMER FINAL REPORT Routine 04/28/2021 11:41 AM EST CYTOPATHOLOGY NON-GYNECOLOGICAL Routine 04/28/2021 11:41 AM EST Endoscopic Us Exam, Esoph ([id number]) 04/28/2021 10:45 AM EST pancreatic lesion Fine Needle Aspiration Bx W/Us Gdn 1St Lesion ([id number]) 04/28/2021 10:45 AM EST pancreatic lesion UPPER EUS-ENDOSCOPIC ULTRASOUND Routine 04/28/2021 10:01 AM EST documented in this encounter Results * Non-Concessionist Final Report (04/28/2021 11:41 AM EST) Diagnosis Discussion [id number] ? Location: ; [facility]; A The signing pathologist has (i) examined the relevant preparation(s) for the specimen(s) and (ii) rendered or confirmed the diagnosis(es). . ? Non-Concessionist Final DIAGNOSIS See Discussion Electronically signed by: ?Alcides Olivas MD Verified: ??04/30/2021 16:09 ??Cytopathologis t Performed at: ??-[facility] Dept. [place]ology, [place], [place] DISCUSSION Pancreas: cyst (EUS-guided FNA) - [...] Cell Block 1. 04/30/2021 4:09 PM EST [facility] PANCREATIC STRUCTURE / Unknown 04/28/2021 11:41 AM EST 04/28/2021 11:41 AM EST Douglas Lui MD PATHOLOGY/CYTOLOGY O MIHIR Performing Organization Address [facility] [place] [place] [address] * Cytopathology Non-Gynecological (04/28/2021 11:41 AM EST) AP Specimen 04/28/2021 11:4 1 AM EST 04/28/2021 11:41 AM EST Narrative [facility] - 04/28/2021 11:41 AM EST Specimen requisition ordered. ??Separate Pathology report to follow Douglas Lui MD PATHOLOGY/CYTOLOGY O MIHIR Performing Organization Address City/[facility] [place] [address] * UPPER EUS-ENDOSCOPIC ULTRASOUND (04/28/2021 10:01 AM EST) UPPER ENDOSCOPIC ULTRASOUND [facility] Endoscopy Procedure Date: 04/28/2021 10:01 AM ? Patient Name: Gianna Infante ? Date of : 1945 ? Age: 75 ? Order #: [id number] ? Instrument Name: [id number] ? Procedure: ? Upper EUS Indications: ? Pancreatic cyst on CT scan Providers: ? Douglas Lui MD, Massiel ? Yady Holden, ? Underwriting Analyst Referring : ?Cesilia Stokes MD Medicines: ? Propofol per [...] CRNA) documented in this encounter Care Teams Copyright Expert Relationship Specialty Start Date End Date Cesilia Stokes MD [address] [place] [address] PCP - General Family Medicine 01/09/21 documented as of this encounter
--- OUTSIDE RECORDS SUMMARY | 2023-11-10 22:14 | XMS_ITS | Encounter Summary ---
Author Organization [facility] [place] [address] Care Team Providers Care Inspector Experimental Assembly Name Role Phone Ky Fernandez MD Primary Care Provider [phone] Reason for Visit * Reason Comments Skin Check Encounter Details Date Type Department Care Team (Late st Contact Info) Description 05/13/2020 1:45 PM EST Office Visit Dermatology at [address] [address] Cm Randall MD [address] [facility] A DERMATOLOGY [place], [place] [id number] History of basal cell carcinoma; Nevus; AK (actinic keratosis) Social History Tobacco Use Types Packs/Day Years [...] Progress Notes * Cm Randall MD - 05/13/2020 1:45 PM EST Problem: 1. ??Skin check 2. ??History of basal cell carcinoma right medial canthus, and inferior nasal tip, treated in [facility] 2008 Gianna follows up for a 1 year follow-up. She has been doing well. She has noted a couple new spots one on her nose and one on her right cheek. She notes she has some itching widely across her back.She takes a bath once every 2 to 3 days. Physical examination reveals a pleasant 74-year-old woman who has actinic keratosis 1 on the right mid cheek and one on the left tip of her nose. There is no evidence of recurrent basal cell carcinoma either at the right medial canthal site nor on the inferior nasal tip. Examination of the head andthe neck the chest the back the hands the arms of forearms the thighs and calves is benign. She does have xerosis cutis widely across her back and extending onto the lateral thighs as well. I think this is likely the cause of her pruritus. Assessment and plan: Keratoses right cheek and left nasal tip 1. LN2 x2 applied to each of 2 sites. 2. Continue our once yearly skin checkups 3. Continue sun avoidance precautions. History of basal carcinomas 1. No evidence of recurrence. 2. Patient reassured Xerosis cutis 1. Recommend use of CeraVe cream on a daily basis CC: Ky Fernandez MD ?? documented in this encounter Plan of Treatment Not on file documented as of this encounter Visit Diagnoses Diagnosis History of basal cell carcinoma Personal history of other malignant neoplasm of skin Nevus Benign neoplasm of skin, site unspecified AK (actinic keratosis) Actinic keratosis documented in this encounter Care Teams Inspector Experimental Assembly Relationship Specialty Start Date End Date Ky Fernandez MD [address] [place] [address] PCP - General Internal Medicine 12/26/15 01/08/21 documented as of this encounter
--- OUTSIDE RECORDS SUMMARY | 2023-11-10 22:14 | XMS_ITS | Encounter Summary ---
[place] [address] Care Team Providers Care Interpreter And Translator Name Role Phone Cesilia Stokes MD Primary Care Provider [phone] Reason for Visit * Reason Onset Date Comments Prior Authorization 05/27/2021 Encounter Details Date Type Department Care Team (Late st Contact Info) Description 05/27/2021 [place] [address] Katelynn Samayoa Prior Authorization Social History Tobacco [...] * Telephone Encounter - Katelynn Samayoa - 05/28/2021 12:21 PM EST Images from the original note were not included. Medication Prior Authorization [employer] Medication name/dose/directions: Forteo 600mcg/2.4mL - Inject 0.08 mLs subcutaneously daily Rationale for request: Osteoporosis Health plan: [employer] ([facility]) Authorizing insurance healthcare representative name: Shanell Sent to health plan on: 05/28/21 Health plan decision: Denied Quantity approved: Authorization number: [id number] Start date: End date: * Telephone Encounter - Katelynn Samayoa - 05/27/2021 8:19 AM EST Images from the original note were not included. Received PA for forteo Will complete as soon as possible documented in this encounter Plan of Treatment Not on file documented as of this encounter Visit Diagnoses Not on filedocumented in this encounter Care Teams Interpreter And Translator Relationship Specialty Start Date End Date Cesilia Stokes MD [address] [place] [address] PCP - General Family Medicine 01/09/21 documented as of this encounter
--- OUTSIDE RECORDS SUMMARY | 2023-11-10 22:14 | XMS_ITS | Encounter Summary ---
[place] [address] Care Team Providers Care Core Shaper Top Name Role Phone Cesilia Stokes MD Primary Care Provider [phone] Encounter Details Date Type Department Care Team (Latest Contact Info) Description 05/13/2021 9:45 AM EST - 05/13/2021 11:59 PM EST Hospital [place] [address] Osteoporosis, unspecified osteoporosis type, unspecified pathological fracture [...] acid/epa (FISH OIL ORAL) Take by mouth. mv,calcium,min/iron/ folic/vitK (MULTI FOR HER ORAL) Take [...] tight, difficulty breathing). Call 911 as directed. Teriparatide (Forteo) 20 mcg/dose (600mcg/2.4mL) Pen Injector Inject 0.08 mLs subcutaneously daily. 1 Syringe 05/11/2021 06/25/2021 clindamycin-benzoyl peroxide (BENZACLIN) 1-5 % Gel Apply topically 2 times daily. 05/19/2021 documented as of this encounter Plan of Treatment Not on file documented as of this encounter Procedures Procedure Name Priority Date/Time Associated Diagnosis Comments U24 HRS AND VOLUME Routine 05/13/2021 6: 00 AM EST HC CALCIUM QUANTITATIVE, URINE TIME SPEC 24 HR Routine 05/13/2021 6:00 AM EST Osteoporosis, unspecified osteoporosis type, unspecified pathological fracture presence HC CREATININE - NON BLOOD Routine 05/13/2021 6:00 AM EST Osteoporosis, unspecified osteoporosis type, unspecified pathological fracture presence documented in this encounter Results * U24 Hrs and Volume (05/13/2021 6:00 AM EST) Hours Collected 24 hour(s) [facility] Total Volume 3,000 mL [facility] Urine 05/13/2021 6:00 AM EST 05/13/2021 11:50 AM EST Narrative Resulting Agency Comment Spec In Lab Juan Antonio Alvarez MD CHEMISTRY ORDERABLES [facility] [place] [address] * Creatinine, urine, 24 hour (05/13/2021 6:00 AM EST) Cre Concentration, U24 28 mg/dL [facility] Creatinine, 24 Hour Urine 0.84 0.70 - 1.60 g/24hr [facility] Urine 05/13/2021 6:00 AM EST 05/13/2021 11:50 AM EST Narrative Resulting Agency Comment Spec In Lab Juan Antonio Alvarez MD URINE ORDERABLES Performing Organization Address [facility] Co de Phone Number [facility] [place] [address] * Calcium, urine, 24 hour (05/13/2021 6:00 AM EST) Ca Concentration, U24 9.7 mg/dL [facility] Calcium, 24 Hour Urine 291.0 50.0 - 300.0 mg/24hr [facility] Comment:Reference Range: 50. 0-300.0 mg/24 hour based on diet. Urine 05/13/2021 6:00 AM EST 05/13/2021 11:50 AM EST Narrative Resulting Agency Comment Spec In Lab Jaun Antonio Alvarez MD URINE ORDERABLES Performing Organization Address [facility] Co de Phone Number [facility] [place] [address] documented in this encounter Visit Diagnoses Diagnosis Osteoporosis, unspecified osteoporosis type, unspecified pathological fracture presence documented in this encounter Care Teams Core Shaper Top Relationship Specialty Start Date End Date Cesilia Stokes MD [address] [place] [address] PCP - General Family Medicine 01/09/21 documented as of this encounter
--- OUTSIDE RECORDS SUMMARY | 2023-11-10 22:14 | XMS_ITS | Encounter Summary ---
Author Organization [facility] Address [facility] [place] [address] Care Team Providers Care Grain Unloader Machine Name Role Phone Cesilia Stokes MD Primary Care Provider [phone] Encounter Details Date Type Department Care Team (Late st Contact Info) Description 04/28/2021 10:43 AM EST Anesthesia [place] [address] Ridge London MD [facility] [place] [address] Annemarie Bright CRNA [facility] [place] [address] Anesthesia Record Procedure Summary Procedure Name Responsible Anesthesiologist Anesthesia Start Time Anesthesia Stop Time FINE NEEDLE ASPIRATION BIOPSY, INC US GUIDANCE; FIRST LESION (WRVU 1.46) Ridge London MD 04/28/21 1043 04/28/21 1123 Events Date Time Event Comment 04/28/2021 1030 1043 AN Verify 1043 Start 1043 An Start Data 1049 An Induction 1049 Anesthesia Ready 1122 an stop data 1122 Recovery or ICU Handoff Nataliya ent care was transferred to the destination unit staff after review of the patient's medical history, current anesthetic/surgical status and plan, according to the Provider Handoff Checklist. 1123 Stop Meds Name Total IV Lidocaine 60 mg Propofol 120 mg Propofol INF 265.11 mg Dexmedetomidine 16 mcg Benzocaine 20% [place] 1 spray Ciprofloxacin 400 mg PHENYLephrine 80 mcg lactated ringers infusion 1,000 mL * Agents Name O2 Air N2O O2 Auxiliary Flowmeter 1 * Blood No blood administrations on file. Lines, Drains, and Airways Type Details Placement Removal Incision 05/28/20; 1422; Left ; eye; 11/23/21 (LDA cleanup utility RA#[id number]); 1715 (LDA cleanup utility RA#[id number]) 05/28/20 1422 by Letitia Calvo RN 11/23/21 1715 by Chauncey Khan Incision 06/25/20; 1309; Righ t; eye; 11/23/21 (LDA cleanup utility RA#[id number]); 1715 (LDA cleanup utility RA#[id number]) 06/25/20 1309 by Letitia Calvo RN 11/23/21 1715 by Chauncey Khan (RETIRED) Peripheral IV Line - Single Lumen 04/28/21; 1008; cephalic vein (lateral side of arm), right; [id number] catheter system; Anatomical Landmarks; 20 gauge; jv; 04/28/21; 1227 04/28/21 1008 by Ky Dey RN 04/28/21 1227 by Rere Hurt RN documented in this encounter Social History Tobacco Use Types Packs/Day Years [...] AM EST documented as of this encounter OR Notes * Anesthesia Postprocedure Evaluation - Ridge London MD - 04/28/2021 11:58 AM EST Department of Anesthesiology Post-procedure Note Patient: Gianna Infante Procedure Summary Date: 04/28/21 Room / Location: [facility] ENDO 3 / [facility] ENDOSCOPY Anesthesia Start: 1043 Anesthesia Stop: 1123 Procedures: FINE NEEDLE ASPIRATION BIOPSY, INC US GUIDANCE; FIRST LESION (N/A ) UPPER EUS- ENDOSCOPIC ULTRASOUND (N/A ) Diagnosis: (pancreatic lesion) Surgeons: Douglas Lui MD Responsible Provider: Ridge London MD Anesthesia Type: MAC ASA Status: 2 All Anesthesia Providers: Anesthesiologist: Ridge London MD FACILITIES MAINTENANCE ASSISTANT: Annemarie Bright CRNA Vitals Value Taken Time BP 110/79 04/28/21 1150 Temp Pulse Resp 16 04/28/21 1150 SpO2 99 % 04/28/21 1157 Pain Level 0 04/28/21 1150 Vitals shown include unvalidated device data. Patient Location: PACU/[facility] Level of Consciousness: Awake and Alert Pain Management: Satisfactory Analgesia PONV: None Cardiovascular Status: At Baseline and Hemodynamically Stable Respiratory Status: At Baseline and Room Air Postoperative Fluid Status: Intravascular EUvolemia Possible Anesthetic Complications: NONE apparent at time of evaluation Final Primary Anesthesia Type: MAC (The anesthetic type performed was the same as planned.) Comments: RIDGE LONDON MD * Anesthesia Preprocedure Evaluation - Ridge London MD - 04/28/2021 10:29 AM EST Pre-Anesthesia Evaluation for: Gianna Infante a 75 y.o. female. Procedure(s): UPPER EUS- ENDOSCOPIC ULTRASOUND Patient Active Problem List Diagnosis Date Noted ??? Epiretinal membrane (ERM) of left eye 03/30/2018 ??? Macular cyst, hole, or pseudohole, left eye 03/30/2018 ??? Combined forms of age-related cataract of both eyes 03/30/2018 ??? Myopia of both eyes with astigmatism and presbyopia 03/30/2018 ??? Choroidal nevus, right eye 03/30/2018 Past Medical History: Diagnosis Date ??? Allergic state ??? Anxiety ??? Arthritis ??? Cataract ??? Trauma 01/2020 hit head on corner of stove vent x 2 Past Surgical History: Procedure Laterality Date ??? BREAST BIOPSY Left 10/01/2014 focal fibrosis ??? CATARACT EXTRACTION, EXTRACAPSULAR, W/ LENS INSERTION Right 06/25/2020 Dr. Balderas Social History Tobacco Use ??? Smoking status: Never Smoker ??? Smokeless tobacco: Never Used Substance Use Topics ??? Alcohol use: Yes Alcohol/week: 7.0 standard drinks Types: 7 Glasses of wine per week Comment: 1/day Social History Substance and Sexual Activity Drug Use Not Currently Allergies Allergen Reactions ??? Bee Sting [Hymenoptera Allergenic Extract] ??? Wasp Venom Medications: MAR and/or home medications have been reviewed. Physical Exam: Preprocedure Vitals Current as of 04/28/21 1029 BP: 147/86 Pulse: 82 Resp: 16 SpO2: 98 Temp: 36.4 ??C (97.6 ??F) Height: 175.3 cm (5' 9) (04/28/21) Weight: 63.5 kg (140 lb) (04/28/21) BMI: 20.67 IBW: 66.2 kg (146 lb 0.4 oz) Last edited 04/28/21951 by TK Airway Assessment: Mallampati: I TM distance: >3 FB Neck ROM: full Cardiovascular Assessment: Rate: normal Pulmonary Assessment: unlabored breathing Dental Assessment: Misc Assessment: IV access: Peripheral line Last Filed Perioperative Cognitive Screening None Anesthesia Plan: ASA 2 MAC, with a(n) intravenous induction Pancreatic lesion for upper EUS Region - Other Informed Consent: Anesthetic plan and risks discussed with patient. Plan discussed with FACILITIES MAINTENANCE ASSISTANT. Anesthesia Screening documented in this encounter Plan of Treatment Not on file documented as of this encounter Visit Diagnoses Not on filedocumented in this encounter Administered Medications Inactive Administered Medications - up to 3 most recent administrations Medication Order MAR Action Action Date Dose Rate Site benzocaine ([place]urricane One) 20% spray (restricted to nataly-procedural use) Oral, PRN, Starting on Tue04/28/21 at 1049, Until Tue04/28/21 at 1123, Anesthesia Intra-op Given 04/28/2021 10:49 AM EST 1 spray ciprofloxacin (Cipro) 400 mg in dextrose 5% 200 mL infusion Intravenous, PRN, Starting on Tue04/28/21 at 1108, Until Tue04/28/21 at 1123, Administer over 60 Minutes, Anesthesia Intra-op Given 04/28/2021 11:08 AM EST 400 mg dexmedetomidine (Precedex) (4 mcg/mL) bolus injection (Anesthsia) Intravenous, PRN, Starting on Tue04/28/21 at 1049, Until Tue04/28/21 at 1123, Anesthesia Intra-op, Routine Given 04/28/2021 10:58 AM EST 8 mcg Given 04/28/2021 10:49 AM EST 8 mcg lactated ringers infusion 100 mL/hr, Intravenous, CONTINUOUS, Starting on Tue04/28/21 at 1015, Until Tue04/28/21 at 1227, Endoscopy (Day of Procedure) New Bag 04/28/2021 10:45 AM EST New Bag 04/28/2021 10:43 AM EST lidocaine (pf) (Xylocaine) (20 mg/mL) 2% injection syringe Intravenous, PRN, Starting on Tue04/28/21 at 1049, Until Tue04/28/21 at 1123, Anesthesia Intra-op, Routine Given 04/28/2021 10:49 AM EST 60 mg PHENYLephrine in NS (PF) (CALEB-SYNEPHRINE) 0.8 mg/10 mL (80 mcg/mL) multi-dose injection Syrg Intravenous, PRN, Starting on Tue04/28/21 at 1110, Until Tue04/28/21 at 1123, Anesthesia Intra-op, Routine Given 04/28/2021 11:10 AM EST 80 mcg propofoL (Diprivan) (10 mg/mL) infusion Intravenous, CONTINUOUS PRN, Starting on Tue04/28/21 at 1049, Until Tue04/28/21 at 1123, Anesthesia Intra-op, Routine Rate/Dose Change 04/28/2021 11:12 AM EST 175 mcg/kg/min 66.675 mL/hr Rate/Dose Change 04/28/2021 11:02 AM EST 150 mcg/kg/min 57 .15 mL/hr Rate/Dose Change 04/28/2021 10:59 AM EST 125 mcg/kg/min 47 .625 mL/hr propofoL (Diprivan) 10 mg/mL bolus injection (Anesthesia) Intravenous, PRN, Starting on Tue04/28/21 at 1049, Until Tue04/28/21 at 1123, Anesthesia Intra-op Given 04/28/2021 11:12 AM EST 20 mg Given 04/28/2021 11:02 AM EST 30 mg Given 04/28/2021 10:59 AM EST 20 mg documented in this encounter Care Teams Grain Unloader Machine Relationship Specialty Start Date End Date Cesilia Stokes MD [address] [place] [address] PCP - General Family Medicine 01/09/21 documented as of this encounter
--- OUTSIDE RECORDS SUMMARY | 2023-11-10 22:14 | XMS_ITS | Encounter Summary ---
Author Organization [facility] [place] [address] Care Team Providers Care Rope Rider Name Role Phone Cesilia Stokes MD Primary Care Provider [phone] Encounter Details Date Type Department Care Team (Latest Contact Info) Description 06/16/2021 12:20 PM EDT - 06/16/2021 11:59 PM EDT Hospital Encounter Mammography/[place] [address] Juan Antonio Alvarez MD [facility] [place] [address] Osteoporosis, unspecified osteoporosis type, unspecified pathological fracture [...] mLs subcutaneously daily. 1 Syringe 05/11/2021 06/25/2021 documented as of this encounter Plan of Treatment Not on file documented as of this encounter Procedures Procedure Name Priority Date/Time Associated Diagnosis Comments DXA CENTRAL SPINE, HIP, AND/OR WHOLE BODY (GENERIC) Routine 06/16/2021 2:33 PM EDT Osteoporosis, unspecified osteoporosis type, unspecified pathological fracture presence documented in this encounter Results * DXA Central Spine, [...] BMD measurements and plots are available in [employer] under the imaging tab. Paper copies will be sent to providers without [employer] access. If you have received this report without the data sheet and do not have access to [employer], please contact Radiology Medical Coding Specialist at [phone] Tuesday thru Tuesday 8am-4pm. Thank you for letting us participate in the care of this patient. ??If you are a health care provider and have any questions regarding this report, please contact the number below. ??For patients who have questions please contact the health home health aide caregiver that requested your imaging first. ? Narrative 06/16/2021 3:29 PM EDT EXAMINATION: DXA CENTRAL SPINE, HIP, AND/OR WHOLE BODY (GENERIC) CLINICAL HISTORY: 75 years Female 2 years on Forteo (as entered by ordering provider) TECHNIQUE: Scans were acquired at the lumbar spine and left hip using the [employer] Horizon A system. L4 was excluded from [...] BMD measurements and plots are available in [employer] Starunder the imaging tab. Paper copies will be sent to providers without [employer] access.If you have received this report without the data sheet and do not haveaccess to [employer], please contact Radiology [facility] at [phone] Tuesday thruFriday 8am-4pm. Thank you for letting us participate in the care of this patient. If youare a health care provider and have any questions regarding this report,please contact the number below. For patients who have questions please contactthe health home health aide caregiver that requested your imaging first. Juan Antonio Alvarez MD IMG DEXA ORDERABLES documented in this encounter Visit Diagnoses Diagnosis Osteoporosis, unspecified osteoporosis type, unspecified pathological fracture presence documented in this encounter Care Teams Rope Rider Relationship Specialty Start Date End Date Cesilia Stokes MD [address] [place] [address] PCP - General Family Medicine 01/09/21 documented as of this encounter
[2023-11-10 22:15] LABS: Absolute Basophil Count 0.05 10^3/uL (0.0-0.2); Absolute Eosinophil Count 0.11 10^3/uL (0.0-0.7); Absolute Lymphocyte Count 1.83 10^3/uL (1.2-3.4); Absolute Monocyte Count 0.39 10^3/uL (0.1-0.8); Absolute Neutrophil Count 2.81 10^3/uL (1.2-6.7); Eosinophils % 2.1 %; HCT 43.3 % (36.0-46.0); HGB 14.3 g/dL (11.2-15.7); Lymphocytes % 35.3 %; MCH 32.2 pg (27.0-33.0); MCV 98 fL (80-95); MPV 9.6 fL (8.0-11.0); Monocytes % 7.5 %; Neutrophils % 54.1 %; Platelet Count 278 10^3/uL (130-400); RBC 4.44 10^6/uL (3.93-5.22); RDW 12.8 % (11.7-14.6); RDW-SD 45.9 fL; WBC 5.19 10^3/uL (4.4-10.8)
--- OUTSIDE RECORDS SUMMARY | 2023-11-10 22:15 | XMS_ITS | Encounter Summary ---
Author Organization [facility] [place] [address] Care Team Providers Care Multimedia Designer Name Role Phone Kaci Angulo APRN Primary Care Provider [phone] Encounter Details Date Type Department Care Team (Latest Contact Info) Description 08/02/2014 4:25 PM EDT - 08/02/2014 11:59 PM EDT Hospital Encounter XRay at [address] [place] [address] CLINIC, Kaci Kline APRN [address] [place] [address] Discharge Disposition: Home Social History Tobacco Use Types Packs/Day Years Used Date Smoking Tobacco: Never Assessed Sex and Gender Information Value Date Recorded Sex Assigned at Female 05/27/2020 7:34 AM EST Gender Identity Not on file Sexual Orientation Straight 05/27/2020 7: 34 AM EST documented as of this encounter Plan of Treatment Not on file documented as of this encounter Visit Diagnoses Not on filedocumented in this encounter Care Teams Multimedia Designer Relationship Specialty Start Date End Date Kaci Angulo APRN [address] [place] [address] PCP - General 08/01/14 12/25/15 documented as of this encounter
--- OUTSIDE RECORDS SUMMARY | 2023-11-10 22:15 | XMS_ITS | Encounter Summary ---
[place] [address] Care Team Providers Care Service Desk Technician Name Role Phone Kaci Angulo EARL Primary Care Provider [phone] Encounter Details Date Type Department Care Team (Late st Contact Info) Description 10/09/2014 9:03 AM EDT - 10/09/2014 11:59 PM EDT Hospital [place] [address] Breast mass Social History Tobacco Use Types Packs/Day Years Used Date Smoking Tobacco: Never Assessed Sex and Gender Information Value Date Recorded Sex Assigned at Female 05/27/2020 7:34 AM EST Gender Identity Not on file Sexual Orientation Straight 05/27/2020 7: 34 AM EST documented as of this encounter Progress Notes * Carmen Durate - 10/08/2014 12:58 PM EDT Pre-procedure note for needle breast biopsies performed in radiology. Procedure date: Tomorrow Procedure type: left breast stereotactic biopsy Allergies: Review of patient's allergies indicates not on file. Medications: No current outpatient prescriptions on file. Anticoagulation status: none stopped on: N/A Imaging reviewed and procedural plan approved by Dr. Carmen Duarte DO documented in this encounter Plan of Treatment Not on file documented as of this encounter Procedures Procedure Name Priority Date/Time Associated Diagnosis Comments MAMMO SPECIMEN IMAGING DURING BIOPSY Routine 10/09/2014 10:16 AM EDT Breast mass documented in this encounter Results * Mammo Specimen Imaging During Biopsy (10/09/2014 10:16 AM EDT) Anatomical Region Laterality Modality Breast N/A Mammography 10/09/2014 10:1 6 AM EDT Impressions 10/10/2014 3:32 PM EDT IMPRESSION: Concordant result ?? RECOMMENDATION: Annual bilateral mammography. Results discussed with her by telephone REVIEW PATH CONFERENCE?: Yes Narrative 10/10/2014 3:32 PM EDT STEREOTACTIC GUIDED VACUUM ASSISTED BIOPSY OF THE LEFT BREAST CLINICAL HISTORY: biopsy of mass. ? LEFT BREAST LESION #1 Finding: Architectural distortion SIZE: 5 mm LOCATION: Upper Outer Quadrant 2 OClock 5 cm from the nipple Procedural details: Informed consent was obtained. Sterile technique was deployed. Approximately 15 cc 1% lidocaine (superficial) and approximately none 1% lidocaine with epinephrine (deep) used for local anesthesia. A small skin incision was made and a biopsy was performed from a cc approach using tomographic guidance and direct digital imaging. ??The [employer] Affirm unit was used. ??The patient was in a upright position. 6 core biopsy specimens were obtained using a Persado Eviva 9g 20mm device. Biopsy specimens were radiographed. ??The abnormality was present on the specimen digital radiograph. Satisfactory sampling was obtained. A cylinder and top hat due to initial clip missed deployment marker clip was placed. Cranio-caudal and lateral digital mammography performed to determine biopsy marker placement, which was shown to be both at the biopsy site. COMPLICATIONS: 3 cm hematoma. ? PROCEDURAL ATTESTATION: Resident: None I performed the procedure without a resident. IMAGING DIFFERENTIAL DIAGNOSIS: Focal fibrosis, radial scar, cancer PATHOLOGIC DIAGNOSIS: Focal fibrosis Procedure Note Kaela Ashley MD - 10/10/2014 STEREOTACTIC GUIDED VACUUM ASSISTED BIOPSY OF THE LEFT BREAST CLINICAL HISTORY: biopsy of mass. LEFT BREAST LESION #1 Finding: Architectural distortion SIZE: 5 mm LOCATION: Upper Outer Quadrant 2 OClock 5 cm from the nipple Procedural details: Informed consent was obtained. Sterile technique was deployed.Approximately 15 cc 1% lidocaine (superficial) and approximately none 1% lidocaine with epinephrine (deep) used for local anesthesia. A small skin incision wasmade and a biopsy was performed from a cc approach using tomographic guidance anddirect digital imaging. The [employer] Affirm unit was used. The patient was judy upright position. 6 core biopsy specimens were obtained using a Persado Eviva 9g 20mmdevice. Biopsy specimens were radiographed. The abnormality was present on thespecimen digital radiograph. Satisfactory sampling was obtained. A cylinder and top hat due to initial clip missed deployment marker clipwas placed. Cranio-caudal and lateral digital mammography performed todetermine biopsy marker placement, which was shown to be both at the biopsy site. COMPLICATIONS: 3 cm hematoma. PROCEDURAL ATTESTATION: Resident: None I performed the procedure without a resident. IMAGING DIFFERENTIAL DIAGNOSIS: Focal fibrosis, radial scar, cancer PATHOLOGIC DIAGNOSIS: Focal fibrosis IMPRESSION IMPRESSION: Concordant result RECOMMENDATION: Annual bilateral mammography. Results discussed with her by telephone REVIEW PATH CONFERENCE?: Yes Kaela Ashley MD IMG MAMMO ORDERABLES documented in this encounter Visit Diagnoses Diagnosis Breast mass Lump or mass in breast documented in this encounter Care Teams Service Desk Technician Relationship Specialty Start Date End Date Kaci Angulo, HUMANE AGENT [address] [place] [address] PCP - General 08/01/14 12/25/15 documented as of this encounter
--- OUTSIDE RECORDS SUMMARY | 2023-11-10 22:15 | XMS_ITS | Encounter Summary ---
Author Organization [facility] Address [facility] [place] [address] Care Team Providers Care Automatic Vulcanizing Operator Name Role Phone Ky Fernandez MD Primary Care Provider [phone] Reason for Visit * Reason Comments Blurred Vision Eye Exam Cataract Encounter Details Date Type Department Care Team (Late st Contact Info) Description 03/30/2018 1:30 PM EST Office Visit Ophthalmology at [facility] [place] [address] Erika Maddox, OD [facility] [place] [id number] Epiretinal membrane (ERM) of left eye; Macular cyst, hole, or pseudohole, left eye; Combined forms of age-related cataract of both eyes; Myopia of both eyes with astigmatism and presbyopia; Choroidal nevus, right eye Social History Tobacco Use Types Packs/Day [...] * Patient Instructions* Erika Maddox, OD - 03/30/2018 1:30 PM EST The Amsler grid may be helpful in revealing signs of sudden vision changes. It is not a substitute for regularly scheduled eye exam/tests. Amsler grid instructions: 1. View grid while wearing glasses or contact lenses you normally wear for reading (near tasks). 2. Hold the grid ~13 inches (33 cm) away in a well-lighted room. 3. Cover one eye with your hand and use the other eye to focus on the dot in the center of the grid. 4. Without looking away from the center dot, note if any of the four corners of the grid are missing; note if any of the black lines appear wavy, broken, missing or distorted; note if any portion of the grid appears abnormal. 5. Repeat with other eye. If with either eye you perceive wavy, broken or distorted lines, or blurred or missing areas of vision, you may be displaying symptoms of vision changes and should contact your eye care provider immediately. documented in this encounter Progress Notes * Erika Maddox, OD - 03/30/2018 1:30 PM EST Gianna Infante is a 72 y.o. female who had concerns including Blurred Vision; Eye Exam; and Cataract.Here to establish eye care at [facility] today. Reviewed COCO notes from Dr. Bob at [facility] exam 04/13/2017 with cataracts OU, macular pucker with lamellar hole OS (BCVA OS 20/30), and PVD OD. 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 Otherwise monitor yearly with Macula OCT and DFE. 2) Very bothered by glare. Her potential acuity demonstrates improvement OS despite macular pathology. She is very eager to speak with cataract surgeon, will set up next available. 3) Monitor. 4) Updated MRx dispensed, she can fill if cataract surgery is not performed. Follow up: next available cataract surgery consult OS. Eyeglass Final Rx Eyeglass Final Rx Sphere Cylinder [place] Add Right -3.50 +1.50 110 +2.50 Left -4.75 +1.75 095 +2.50 Type: PAL Expiration Date: 03/30/2020 documented in this encounter Plan of Treatment Not on file documented as of this encounter Procedures Procedure Name Priority Date/Time Associated Diagnosis Comments FUNDUS PHOTOS - OU- BOTH EYES Routine 03/30/2018 2:53 PM EST Epiretinal membrane (ERM) of left eye Macular cyst, hole, or pseudohole, left eye Choroidal nevus, right eye OCT RETINA - OU - BOTH EYES Routine 03/30/2018 2:52 PM EST Epiretinal membrane (ERM) of left eye Macular cyst, hole, or pseudohole, left eye Choroidal nevus, right eye documented in this encounter Results * FUNDUS PHOTOS - OU- BOTH EYES (03/30/2018 2:53 PM EST) Anatomical Region Laterality Modality Other Narrative 03/30/2018 2:53 PM EST FUNDUS PHOTOS INTERPRETATION OD: Normal optic disc, macula and vasculature; 1DD faint flat choroidal nevus S/T to macula no lipofuscin no fluid OS: Normal optic disc, pseudo-hole appearance centrally with ERM Erika Maddox OD OPHTHALMOLOGY [facility] ORDERABLES * OCT [id number] EYES (03/30/2018 2:52 PM EST) Anatomical Region Laterality Modality Other Narrative 03/30/2018 2:52 PM EST OCT MACULA OD: Normal foveal contour; all layers intact without disruption OS: Inner-lamellar hole appearance with small cystic changes secondary to central ERM; outer retinal layers intact; no SRF/IRF Erika Maddox OD OPHTHALMOLOGY [facility] ORDERABLES documented in this encounter Visit Diagnoses Diagnosis Epiretinal membrane (ERM) of left eye Macular cyst, hole, or pseudohole, left eye Combined forms of age-related cataract of both eyes Other and combined forms of senile cataract 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
--- OUTSIDE RECORDS SUMMARY | 2023-11-10 22:15 | XMS_ITS | Encounter Summary ---
Author Organization [facility] Address [facility] [place] [address] Care Team Providers Care Commissions Specialist Name Role Phone Kaci Angulo EARL Primary Care Provider [phone] Encounter Details Date Type Department Care Team (Late st Contact Info) Description 10/08/2014 [place] [address] Kaela Ashley MD [facility] [place] [address] Breast mass Social History Tobacco Use Types Packs/Day Years Used Date Smoking Tobacco: Never Assessed Sex and Gender Information Value Date Recorded Sex Assigned at Female 05/27/2020 7:34 AM EST Gender Identity Not on file Sexual Orientation Straight 05/27/2020 7: 34 AM EST documented as of this encounter Plan of Treatment Not on file documented as of this encounter Results * Mammo Specimen Imaging [...] tomographic guidance and direct digital imaging. ??The [employer] Affirm unit was used. ??The patient was in a upright position. 6 core biopsy specimens were obtained using a [employer]s Eviva 9g 20mm device. Biopsy specimens were [...] using tomographic guidance anddirect digital imaging. The [employer] Affirm unit was used. The patient was judy upright position. 6 core biopsy specimens were obtained using a [employer]s Eviva 9g 20mmdevice. Biopsy specimens were radiographed. [...] Yes Kaela Ashley MD IMG MAMMO ORDERABLES * Mammo direct digital unilateral (10/09/2014 10:15 AM EDT) Anatomical Region Laterality Modality Breast N/A Mammography 10/09/2014 10:1 5 AM EDT Impressions 10/10/2014 3:32 PM EDT [...] tomographic guidance and direct digital imaging. ??The [employer] Affirm unit was used. ??The patient was in a upright position. 6 core biopsy specimens were obtained using a [employer] Healthcare[employer] 9g 20mm device. Biopsy specimens were radiographed. [...] using tomographic guidance anddirect digital imaging. The [employer] Affirm unit was used. The patient was judy upright position. 6 core biopsy specimens were obtained using a Suros Eviva 9g 20mmdevice. Biopsy specimens were radiographed. [...] Yes Kaela Ashley MD IMG MAMMO ORDERABLES * Mammo stereotactic (10/09/2014 10:14 AM EDT) Anatomical Region Laterality Modality Breast N/A Mammography 10/09/2014 10:1 4 AM EDT Impressions 10/10/2014 3:32 PM EDT [...] tomographic guidance and direct digital imaging. ??The [employer] Affirm unit was used. ??The patient was in a upright position. 6 core biopsy specimens were obtained using a Suros Eviva 9g 20mm device. Biopsy specimens were [...] using tomographic guidance anddirect digital imaging. The [employer] Affirm unit was used. The patient was judy upright position. 6 core biopsy specimens were obtained using a [employer] Eviva 9g 20mmdevice. Biopsy specimens were radiographed. [...] Breast mass Lump or mass in breast Breast mass Lump or mass in breast Breast mass Lump or mass in breast Breast mass Lump or mass in breast documented in this encounter Care Teams Commissions Specialist Relationship Specialty Start Date End Date Kaci Angulo APRN [address] [place] [address] PCP - General 08/01/14 12/25/15 documented as of this encounter
--- OUTSIDE RECORDS SUMMARY | 2023-11-10 22:15 | XMS_ITS | Encounter Summary ---
[place] [address] Care Team Providers Care Station Air Traffic Control Specialist Name Role Phone Kaci Angulo APRN Primary Care Provider [phone] Encounter Details Date Type Department Care Team (Latest Contact Info) Description 10/09/2014 9:02 AM EDT - 10/09/2014 11:59 PM EDT Hospital En[place] [address] CLINIC, Kaci Kline, EARL [address] [place] [address] Breast mass Discharge Disposition: Home Social History Tobacco Use [...] Name Priority Date/Time Associated Diagnosis Comments MAMMO DIRECT DIGITAL UNILATERAL Routine 10/09/2014 10:15 AM EDT Breast mass documented in this encounter Results * Mammo direct digital unilateral (10/09/2014 10:15 [...] tomographic guidance and direct digital imaging. ??The [employer] Affirm unit was used. ??The patient was [...] using tomographic guidance anddirect digital imaging. The [employer] Affirm unit was used. The patient was [...] breast documented in this encounter Care Teams Station Air Traffic Control Specialist Relationship Specialty Start Date End Date Kaci Angulo APRN [address] [place] [address] PCP - General 08/01/14 12/25/15 documented as of this encounter
--- OUTSIDE RECORDS SUMMARY | 2023-11-10 22:15 | XMS_ITS | Clinical Summary ---
Author Organization [facility] Address [address] [place] [address] Care Team Providers Care Water Softener Servicer And Installer Name Role Phone Ky Fernandez MD Primary Care Provider [phone] Social History Tobacco Use Types Packs/Day Years Used Date Smoking Tobacco: Never Assessed Interpersonal Safety Answer Date Record ed Physically Hurt Never 10/29/2019 Verbally Threaten Not on file 10/29/2019 Sex and Gender Information Value Date Recorded Sex Assigned at Not on file Gender Identity Not on file Sexual Orientation Not on file Plan of Treatment Health Maintenance Due Date Last Done Comments Hepatitis C Screen 1945 RSV Immunization ( o r 60+ Years) (1 - 1-dose 60+ series) 2005 Fall Risk Screening 2010 COVID-19 Vaccine ( season) 2022 Care Teams Water Softener Servicer And Installer Relationship Specialty Start Date End Date Ky Fernandez MD [address] [place] [address] PCP - General 08/02/18
--- OUTSIDE RECORDS SUMMARY | 2023-11-10 22:15 | XMS_ITS | Encounter Summary ---
[place] [address] Care Team Providers Care Oil Recovery Unit Operator Name Role Phone Kaci Angulo APRN Primary Care Provider [phone] Encounter Details Date Type Department Care Team (Late st Contact Info) Description 05/30/2015 Ancillary Procedure [place] [address] Cesilia Stokes MD [address] [place] [address] Social History Tobacco Use Types Packs/Day Years [...] Name Priority Date/Time Associated Diagnosis Comments FILM LIBRARY- STORAGE ONLY DXA IMAGES Routine 05/30/2015 12:00 AM EST documented in this encounter Results * Film Library- Storage Only DXA Images (05/30/2015 12:00 AM EST) Narrative [facility] - 10/20/2021 2:50 PM EDT This exam is auto-finalizing. It's purpose is for storage only. Cesilia Stokes MD IMG FILM LIBRARY ORD ERABLES DH RAD [place], [place] documented in this encounter Visit Diagnoses Not on filedocumented in this encounter Care Teams Oil Recovery Unit Operator Relationship Specialty Start Date End Date Kaci Angulo APRN [address] [place] [address] PCP - General 08/01/14 12/25/15 documented as of this encounter
--- OUTSIDE RECORDS SUMMARY | 2023-11-10 22:15 | XMS_ITS | Encounter Summary ---
[place] [address] Care Team Providers Care Wire Lather Name Role Phone Kaci Angulo APRN Primary Care Provider [phone] Encounter Details Date Type Department Care Team (Latest Contact Info) Description 10/07/2014 12:59 PM EDT - 10/07/2014 11:59 PM EDT Hospital [place] [address] CLINIC, Kaci Kline, EARL [address] [place] [address] Abnormal mammogram, unspecified Discharge Disposition: Home Social History Tobacco Use [...] Name Priority Date/Time Associated Diagnosis Comments MAMMO BREAST US LIMITED Routine 10/07/2014 2:30 PM EDT Abnormal mammogram, unspecified documented in this encounter Results * Mammo Breast Ultrasound Limited (10/07/2014 2:30 PM EDT) Anatomical Region Laterality Modality Breast N/A Mammography 10/07/2014 2:30 PM EDT Narrative 10/07/2014 4:51 PM EDT DIAGNOSTIC MAMMOGRAPHY AND ULTRASOUND OF THE LEFT BREAST CLINICAL HISTORY: OSI LEFT BREAST. ? TECHNIQUE AND VIEWS OBTAINED: Images acquired with direct digital capture Left mL, left spot CC, left CC rolled lateral and medial. ??Tomographic imaging was performed ?? COMPARISONS: BREAST DENSITY: There are scattered areas of fibroglandular density FINDINGS MAMMOGRAPHY: The lateral aspect of the left breast there is a 5 mm spiculated opacity that has more masslike configuration on her CC and CC darcy views but is less convincing on the other views. This triangulates to the approximate 3:00 position. This has been no change since her study from June, change if any a subtle since her prior mammograms depending on her positioning FINDINGS ULTRASOUND: No abnormalities identified the lateral aspect of the left breast I discussed the options with her including a six-month follow-up from now versus a tomographic stereotactic biopsy of the left breast in CC approach. [place] of [place] and for this reason would prefer a biopsy now. DIAGNOSTIC SUMMARY: LEFT BREAST LESION 1 BIRADS 4. Suspicious for malignancy FINDING: Focal assymetry SIZE: 5 mm LOCATION: Outer at 3 OClock 5 cm from the nipple RECOMMENDATION: Tomographic stereotactic biopsy, CC approach Procedure Note Kaela Ashley MD - 10/07/2014 DIAGNOSTIC MAMMOGRAPHY AND ULTRASOUND OF THE LEFT BREAST CLINICAL HISTORY: OSI LEFT BREAST. TECHNIQUE AND VIEWS OBTAINED: Images acquired with direct digital capture Left mL, left spot CC, left CC rolled lateral and medial. Tomographicimaging was performed COMPARISONS: [id number] BREAST DENSITY: There are scattered areas of fibroglandular density FINDINGS MAMMOGRAPHY: The lateral aspect of the left breast there is a 5 mm spiculated opacitythat has more masslike configuration on her CC and CC darcy views but is less convincing on the other views. This triangulates to the approximate 3:00 position. This has been no change since her study from June, change ifany a subtle since her prior mammograms depending on her positioning FINDINGS ULTRASOUND: No abnormalities identified the lateral aspect of the left breast I discussed the options with her including a six-month follow-up from nowversus a tomographic stereotactic biopsy of the left breast in CC approach. [place] in [place] of [place] and for this reasonwould prefer a biopsy now. DIAGNOSTIC SUMMARY: LEFT BREAST LESION 1 BIRADS 4. Suspicious for malignancy FINDING: Focal assymetry SIZE: 5 mm LOCATION: Outer at 3 OClock 5 cm from the nipple RECOMMENDATION: Tomographic stereotactic biopsy, CC approach Ky Mcintosh MD IMG MAMMO ORDERABLES documented in this encounter Visit Diagnoses Diagnosis Abnormal mammogram, unspecified documented in this encounter Care Teams Wire Lather Relationship Specialty Start Date End Date Kaci Angulo, CUT OFF SAW OPERATOR PIPE BLANKS [address] [place] [address] PCP - General 08/01/14 12/25/15 documented as of this encounter
--- OUTSIDE RECORDS SUMMARY | 2023-11-10 22:15 | XMS_ITS | Encounter Summary ---
Author Organization [facility] Address [address] [place] [address] Care Team Providers Care Sales Contract Administrator Name Role Phone Kaci Angulo APRN Primary Care Provider [phone] Encounter Details Date Type Department Care Team (Latest Contact Info) Description 07/31/2018 9:39 EDT - 07/31/2018 23:59 EDT Hospital Encounter [address] [address] Unknown, Provider, Discharge Disposition: Home or Self Care Social History Tobacco Use Types Packs/Day Years Used Date Smoking Tobacco: Never Assessed Sex and Gender Information Value Date Recorded Sex Assigned at Not on file Gender Identity Not on file Sexual Orientation Not on file documented as of this encounter Discharge Disposition Disposition Code Departure Means Destination Home or Self Fdc documented in this encounter Plan of Treatment Not on file documented as of this encounter Visit Diagnoses Not on filedocumented in this encounter Care Teams Sales Contract Administrator Relationship Specialty Start Date End Date Kaci Angulo APRN [address] [place] [address] PCP - General 02/04/17 08/01/18 documented as of this encounter
--- OUTSIDE RECORDS SUMMARY | 2023-11-10 22:15 | XMS_ITS | Encounter Summary ---
Author Organization [facility] Address [facility] [place] [address] Care Team Providers Care Printing Plate Setter Name Role Phone Kaci Angulo FIBERLINE SUPERVISOR Primary Care Provider [phone] Encounter Details Date Type Department Care Team (Late st Contact Info) Description 04/10/2010 [place] [id number] Kaela Ashley MD [facility] DIAGNOSTIC [place] [address] Social History Tobacco Use Types Packs/Day Years [...] Associated Diagnosis Comments FILM LIBRARY STORAGE ONLY MAMMO Routine 04/10/2010 1:35 PM EST documented in this encounter Results * Film Library- Storage only Mammo (04/10/2010 1:35 PM EST) Anatomical Region Laterality Modality Other 04/10/2010 1:35 PM EST Narrative 08/16/2014 1:51 PM EDT This is a Non-reportable exam Procedure Note NORBERT, UNSIGNED REPORT - 08/16/2014 This is a Non-reportable exam Kaela Ashley MD [facility]RARY ORD ERABLES documented in this encounter Visit Diagnoses Not on filedocumented in this encounter Care Teams Printing Plate Setter Relationship Specialty Start Date End Date Kaci Angulo APRN [address] [place] [address] PCP - General 08/01/14 12/25/15 documented as of this encounter
--- OUTSIDE RECORDS SUMMARY | 2023-11-10 22:15 | XMS_ITS | Encounter Summary ---
[facility] [place] [address] Care Team Providers Care Granite Cutter Apprentice Name Role Phone Kaci Angulo JUV[address] LIAISON Primary Care Provider [phone] Encounter Details Date Type Department Care Team (Late st Contact Info) Description 03/30/2011 [place] [id number] Kaela Ashley MD [facility] [place] [address] Social History Tobacco Use Types Packs/Day Years [...] Comments FILM LIBRARY STORAGE ONLY MAMMO Routine 03/30/2011 1:40 PM EST documented in this encounter Results * Film Library- Storage only Mammo (03/30/2011 1:40 PM EST) Anatomical Region Laterality Modality Other 03/30/2011 1:40 PM EST Narrative 08/16/2014 1:53 PM EDT This is a Non-reportable exam Procedure Note NORBERT, UNSIGNED REPORT - 08/16/2014 This is a Non-reportable exam Kaela Ashley MD [facility] FILM LIBRARY ORD ERABLES documented in this encounter Visit Diagnoses Not on filedocumented in this encounter Care Teams Granite Cutter Apprentice Relationship Specialty Start Date End Date Kaci Angulo APRN [address] [place] [address] PCP - General 08/01/14 12/25/15 documented as of this encounter
--- OUTSIDE RECORDS SUMMARY | 2023-11-10 22:15 | XMS_ITS | Encounter Summary ---
Author Organization [facility] Address [facility] [place] [address] Care Team Providers Care Level Vial Sealer Name Role Phone Kaci Angulo RECRUITMENT COORDINATOR Primary Care Provider [phone] Encounter Details Date Type Department Care Team (Late st Contact Info) Description 07/19/2014 [place] [id number] Kaela Ashley MD [facility] [place] [address] Social History Tobacco Use Types Packs/Day Years [...] Comments FILM LIBRARY STORAGE ONLY MAMMO Routine 07/19/2014 4:30 PM EDT documented in this encounter Results * Film Library- Storage only Mammo (07/19/2014 4:30 PM EDT) Anatomical Region Laterality Modality Other 07/19/2014 4:30 PM EDT Narrative 08/02/2014 4:44 PM EDT This is a Non-reportable exam Procedure Note NORBERT, UNSIGNED REPORT - 08/02/2014 This is a Non-reportable exam Kaela Ashley MD [facility] FILM LIBRARY ORD ERABLES documented in this encounter Visit Diagnoses Not on filedocumented in this encounter Care Teams Level Vial Sealer Relationship Specialty Start Date End Date Kaci Angulo APRN [address] [place] [address] PCP - General 08/01/14 12/25/15 documented as of this encounter
--- OUTSIDE RECORDS SUMMARY | 2023-11-10 22:15 | XMS_ITS | Encounter Summary ---
Author Organization [facility] Address [facility] [place] [address] Care Team Providers Care Resident Services Director Name Role Phone Ky Fernandez MD Primary Care Provider + [phone] Reason for Visit * Reason Comments Blurred Vision Cataract Encounter Details Date Type Department Care Team (Late st Contact Info) Description 06/16/2018 10:00 AM EDT Office Visit [place] [address] Oracio Thompson MD 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 Maddox in 1 year for CEE documented in this encounter Plan of Treatment Not on file documented as of this encounter Visit Diagnoses Diagnosis Combined forms of age-related cataract of both eyes Other and combined forms of senile cataract Epiretinal membrane (ERM) of left eye Macular cyst, hole, or pseudohole, left eye Choroidal nevus, right eye Benign neoplasm of choroid documented in this encounter Care Teams Resident Services Director Relationship Specialty Start Date End Date Ky Fernandez MD [address] [place] [address] PCP - General Internal Medicine 12/26/15 01/08/21 documented as of this encounter
--- OUTSIDE RECORDS SUMMARY | 2023-11-10 22:15 | XMS_ITS | Encounter Summary ---
[place] [address] Care Team Providers Care Dude Ranch Manager Name Role Phone Ky Fernandez MD Primary Care Provider [phone] Encounter Details Date Type Department Care Team (Latest Contact Info) Description 02/16/2016 10:50 AM EST - 02/16/2016 11:59 PM EST Hospital Encounter [place] [address] Ky Fernandez MD [address] [place] [address] Encounter for screening mammogram for malignant neoplasm [...] MAMMO SCREENING CAD AND FABIO BILATERAL Routine 02/16/2016 11:14 AM EST Encounter for screening mammogram for malignant neoplasm of breast documented in this encounter Results * Mammo Screen CAD and Fabio Bilat (Generic) (02/16/2016 11:14 AM EST) Anatomical Region Laterality Modality Breast Bilateral Mammography Narrative 02/16/2016 11:51 AM EST BILATERAL MAMMOGRAPHY REASON FOR EXAM: Screening TECHNIQUE: CC and MLO views were obtained of each breast using standard 2-D mammography as well as 3-D tomosynthesis. Computer aided detection was used. This is compared with prior images. FINDINGS: ??The breasts are heterogeneously dense, which may obscure small masses. There are no suspicious microcalcifications, masses, or areas of distortion. The pattern is stable. CONCLUSION: No mammographic evidence of malignancy. RECOMMENDATION: The [employer] and The Society of Breast Imaging recommend annual screening beginning at age 40 for the general female population. Screening should continue as long as a woman is in good health and is expected to live 10 more years or longer. All women should be familiar with the known benefits, limitations, and potential harms linked to breast cancer screening. They should also know how their breasts normally look and feel and report any breast changes to a health care provider right away. Some women - because of their family history, a genetic tendency, or certain other factors - should be screened with MRIs along with mammograms. (The number of women who fall into this category is very small.) The patient and health care provider should discuss the patient history and decide if earlier screening and breast MRI are appropriate. A result letter has been sent to this patient by the [facility]. BIRADS CATEGORY 1: NEGATIVE Ky Fernandez MD IMG MAMMO ORDERABLES documented in this encounter Visit Diagnoses Diagnosis Encounter for screening mammogram for malignant neoplasm of breast Other screening mammogram documented in this encounter Care Teams Dude Ranch Manager Relationship Specialty Start Date End Date Ky Fernandez MD [address] [place] [address] PCP - General Internal Medicine 12/26/15 01/08/21 documented as of this encounter
--- OUTSIDE RECORDS SUMMARY | 2023-11-10 22:15 | XMS_ITS | Clinical Summary ---
Author Organization [facility] [place] [address] Care Team Providers Care Phlebotomist Name Role Phone Clement Dewitt.D. Unavailable U navailable Advice, Cc Adult Unavailable Unavailable Md Carmen Talavera [facility] Staff, Support Unavailable Unavailable Md Earl Talavera M.D. Unavailable Md Radha Chong Unavailable Unavailable Md Dany Sparks M.D. Unavailable Unavaila ble Provider, Starter Unavailable Unavailable Md Rui Hines M.D. Unavailable Unavaila ble Md Maxine Zamora Unavailable Unavailable Jose TorresPFrankyCFranky Unavailable Md Jono Olivo M.D. Unavailable Unava ilable Kerri, Director Of Special Events Marina Senia C.N.SFranky Unavailable U navailable Md Bruno Gray M.D. 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 01/13/2011 Overview: Specific anxiety causing insomnia LUMBOSACRAL SPONDYLOSIS WO MYELOPATHY 06/27/2008 OSTEOPENIA 03/14/2006 Immunizations Name Administration Dates Next Due INF V6G6-60 standard dose (I nfluenza L5U6-40). 03/25/2009 INFs (Influenza split virus ). 8,01/30/1997,01/14/1996, 995,01/21/1994,01/19/1993 INFs 18yrs-adult (Influenza) 01/25/2011,01/16/20 08 INFs 3yrs-adult (Influenza) 01/09/2010, 9,01/25/2007 INFs pres free 3yrs-adult (F LUARIX) (Influenza) 01/01/2013 INFs pres free 3yrs-adult (F LUZONE) (Influenza) 03/15/2014 INFs pres free 3yrs-adult (Influenza) 01/24/2012 MMR (Measles, Mumps, Rubella) 10/31/1991 PPSV23 (Pneumococcal polysaccharide) 01/25/2011 TD pres free (Tetanus, Dipht heria) (TdVax), adsorbed 07/27/2007 Tdap (ADACEL) (Tetanus, diph theria, acellular pertussis) 02/13/2013 ZOS (Zostervirus live, shingles) 03/27/2012 Family History Medical History Relation Comments Coronary Artery Disease Father Hypertension Father Alcohol Abuse Mother Alzheimers Disease Mother Depression Mother Osteoporosis Mother Relation Status Comments Father Maternal Grandfather Maternal Grandmother Mother Paternal Grandfather Paternal Grandmother Social History Tobacco Use Types Packs/Day Years Used Date Smoking Tobacco: Never Smokeless Tobacco: Never Alcohol Use Standard Drinks/Week Comments Yes 0 (1 standard drink = 0.6 oz pur e alcohol) two glass wine/night Substance Use Types Use/Week Comments No Sex and Gender Information Value Date Recorded Sex Assigned at Not on file Gender Identity Not on file Sexual Orientation Not on file Last Filed Vital Signs Vital Sign Reading Time Taken Comments Blood Pressure 110/66 03/19/2014 10:15 AM EST Pulse 71 03/15/2014 3:06 PM EST Temperature 36.7 ??C (98.1 ??F) 03/15/2014 3:06 PM ES T Respiratory Rate 16 03/15/2014 10:4 3 AM EST Oxygen Saturation 95% 07/18/2012 2:40 PM EDT Inhaled Oxygen Concentration - - Weight 66.5 kg (146 lb 11.2 oz) 03/15/2014 3:06 PM EST Height 177.8 cm (5' 10) 03/15/2014 3:06 PM EST Body Mass Index 21.05 03/15/2014 3:06 PM EST Plan of Treatment Health Maintenance Due Date Last Done Comments IMM PNEUMOCOCCAL (65 YRS AND OLDER) (2 of 2 - PCV) 01/26/2012 01/25/2011 IMM ZOSTER (19 YRS AND OLDER ) (2 of 3) 05/22/2012 03/27/2012 IMM DTAP,TDAP,TD (42 DAYS-12 0 YRS) (3 - Td or Tdap) 02/13/2023 02/13/2013, 07/27/2007 IMM INFLUENZA (6 MO AND OLDE R) (#1) 11/27/2023 03/15/2014, 01/01/2013, 01/24/2012, Additional history exists Care Teams Phlebotomist Relationship Specialty Start Date End Date Md Bruno Gray M.D. Internal Medicine Health Care Team [address] [facility], [place] [address] PCP - General 03/17/09 Esdras, Pharmd Ailyn, PHARM.D. 03/06/09 Advice, Cc Adult 03/06/09 Md Carmen Talavera 03/06/09 Staff, Support 03/06/09 Md Earl Talavera M.D. Department of Dermatology [address] [place] [address] [id number] 03/06/09 Md Radha Chong 03/06/09 Md Dany Sparks M.D. 03/06/09 Provider, [place] [address] 03/06/09 Md Rui Hines M.D. 03/06/09 Md Maxine Zamora 03/06/09 Jose Torres L.P.CFranky 03/06/09 Md Jono Olivo M.D. 03/06/09 Eleazar Manning C.N.S. 03/06/09
--- OUTSIDE RECORDS SUMMARY | 2023-11-10 22:15 | XMS_ITS | Encounter Summary ---
[place] [address] Care Team Providers Care Seam Stay Stitcher Name Role Phone Kaci Angulo EARL Primary Care Provider [phone] Encounter Details Date Type Department Care Team (Latest Contact Info) Description 10/07/2014 1:00 PM EDT - 10/07/2014 11:59 PM EDT Hospital Encounter [place] [address] Abnormal mammogram, unspecified Social History Tobacco Use Types Packs/Day Years [...] Diagnosis Comments MAMMO DIRECT DIGITAL UNILATERAL Routine 10/07/2014 1:45 PM EDT Abnormal mammogram, unspecified documented in this encounter Results * Mammo direct digital unilateral (10/07/2014 1:45 PM EDT) Anatomical Region Laterality Modality Breast N/A Mammography 10/07/2014 1:45 PM EDT Narrative 10/07/2014 4:51 PM EDT DIAGNOSTIC MAMMOGRAPHY AND ULTRASOUND OF THE LEFT BREAST CLINICAL HISTORY: OSI LEFT BREAST. ? TECHNIQUE AND VIEWS OBTAINED: Images acquired with direct digital capture Left mL, left spot CC, left CC rolled lateral and medial. ??Tomographic imaging was performed ?? COMPARISONS: [id number] BREAST DENSITY: There are scattered areas of [...] lateral and medial. Tomographicimaging was performed COMPARISONS: [id number] BREAST DENSITY: There are scattered areas of [...] unspecified documented in this encounter Care Teams Seam Stay Stitcher Relationship Specialty Start Date End Date Kaci Angulo APRN [address] [place] [address] PCP - General 08/01/14 12/25/15 documented as of this encounter
--- OUTSIDE RECORDS SUMMARY | 2023-11-10 22:15 | XMS_ITS | Encounter Summary ---
[place] [address] Care Team Providers Care Parts Counter Specialist Name Role Phone Ky Fernandez MD Primary Care Provider + [phone] Reason for Visit * Reason Comments Skin Check * Consultation (Routine) - Specialty Diagnoses / Procedures Referred By Farrah shook Referred To Contact Dermatology Diagnoses Skin Check Procedures Skin Check Kaci Angulo APRN [address] [place] [address] Cm Randall MD [address] [place] [address], [facility] [place] [address] Referral ID Status Reason Start Date Expiration Date V isits Requested Visits Authorized [id number] 06/20/2017 06/20/2018 1 1 Encounter Details Date Type Department Care Team (Late st Contact Info) Description 05/16/2018 1:45 PM EST Office Visit Dermatology at [address] [address] Cm Randall MD [address] [place] [address], [facility] [place] [address] History of basal cell carcinoma; Nevus Social [...] Progress Notes * Cm Randall MD - 05/16/2018 1:45 PM EST Problem: 1. Skin check 2. History of basal cell carcinoma right medial canthus, and inferior nasal tip, treated in [facility] 2008 Gianna is a 72-year-old woman who grew up in part in [place] in [place], then for many years livedin [place]. She is now returned to [place] and would like to establish dermatologic skin care here in my practice. She has no new lesions of concern. She has not had a dermatologic check for about 4 years since she returned to [place]. She is referred today by Dr. Mauro Fernandez for skin check. Is no personal or family history of melanoma. He had a fair amount of sun exposure growing up. Her skin cancers were treated at [facility] in [place] where she was then followed on a yearly basis dermatologically following her diagnosis. Physical examination reveals a pleasant 72-year-old woman who is fair skinned but has a benign examination of the face including the 2 BCC treatment sites. Examination of the chest the back the handsthe arms deforms the thighs and the calves is likewise benign. She has a number of small regular melanocytic nevi and solar lentigo's of the torso and extremities upper extremities. Assessment plan: Benign skin examination 1. Patient reassured about her benign skin examination 2. Reinforced sun avoidance precautions 3. Given that the patient is 10 years out from her skin cancers, I would now recommend that I see her in another 2 years for repeat check. 4. Return to clinic in 2 years for repeat check. CC: Ky Fernandez MD documented in this encounter Plan of Treatment Not on file documented as of this encounter Visit Diagnoses Diagnosis History of basal cell carcinoma Personal history of other malignant neoplasm of skin Nevus Benign neoplasm of skin, site unspecified documented in this encounter Care Teams Parts Counter Specialist Relationship Specialty Start Date End Date Ky Fernandez MD [address] [place] [address] PCP - General Internal Medicine 12/26/15 01/08/21 documented as of this encounter
--- OUTSIDE RECORDS SUMMARY | 2023-11-10 22:15 | XMS_ITS | Encounter Summary ---
Author Organization [facility] [address] Care Team Providers Care Transformer Molder Name Role Phone Ky Fernandez MD Primary Care Provider + [phone] Reason for Visit * Reason Comments Procedure Encounter Details Date Type Department Care Team (Latest Contact Info) Description 06/16/2018 1:00 PM EDT [place] [address] [place] [address] Age-related nuclear cataract, bilateral (Primary Dx) Social History Tobacco Use Types [...] Notes * Oracio Thompson MD - 06/16/2018 1:00 PM EDT Procedure visit only documented in this encounter Plan of Treatment Not on file documented as of this encounter Procedures Procedure Name Priority Date/Time Associated Diagnosis Comments [id number] CALC BY LASER INTERFEROMETRY - OU - BOTH EYES Routine 06/19/2018 5:06 PM EDT Age-related nuclear cataract, bilateral documented in this encounter Results * [id number] CALC BY LASER [id number] EYES (06/19/2018 5:06 PM EDT) Anatomical Region Laterality Modality Other Narrative 06/19/2018 5:06 PM EDT Physician PreOp Lens Selection Right Eye Style: [id number]. Power: 15.50. Target: plano. 06/19/2018. Left Eye Style: SN60WF. Power: 15.00. Target: plano. 06/19/2018. Notes Patient Hx Past Medical Hx ??Pt. ??has a past medical history of Allergic state, Anxiety, Arthritis, and Cataract. Past Ophth Surg Hx ??No relevant surgical history has been documented for this patient. Eye Meds ??EPINEPHrine, alendronate, and ibuprofen IOL Biometry - Initial (source: LENSTAR) OD OS Date Performed 06/16/2018 10:29 AM 06/16/2018 10:29 AM ?? Target Refraction No Value exists for the RACKMAN: DHOPH#[id number] No Value exists for the RACKMAN: DHOPH#[id number] ?? Axial Length 25.5 (mm) 25.66 (mm) ?? Anterior Chamber Depth 3.9 (mm) 3.89 (mm) ?? Horizontal White to White 12.99 (mm) 13.09 (mm) ?? Formula Used ? K's 42.63@014 / 44.04@104 42.41@169 / 44.17@079 ? Add'l Comments/Discrepancies/Concerns: Good quality scans OU Pt is not having surgery. ??I will reconfirm the lens in the future when she decides to have surgery Oracio Thompson MD OPHTHALMOLOGY SERVIC ES ORDERABLES documented in this encounter Visit Diagnoses Diagnosis Age-related nuclear cataract, bilateral- Primary Senile nuclear sclerosis documented in this encounter Care Teams Transformer Molder Relationship Specialty Start Date End Date Ky Fernandez MD [address] [place] [address] PCP - General Internal Medicine 12/26/15 01/08/21 documented as of this encounter
--- OUTSIDE RECORDS SUMMARY | 2023-11-10 22:15 | XMS_ITS | Referral Summary ---
Author Organization [facility] Address [address] [place] [address] Care Team Providers Care Electroplater Name Role Phone Ky Fernandez MD Primary Care Provider [phone] Social History Tobacco Use Types Packs/Day Years Used Date Smoking Tobacco: Never Assessed Interpersonal Safety Answer Date Record ed Physically Hurt Never 10/29/2019 Verbally Threaten Not on file 10/29/2019 Sex and Gender Information Value Date Recorded Sex Assigned at Not on file Gender Identity Not on file Sexual Orientation Not on file Plan of Treatment Not on file Care Teams Electroplater Relationship Specialty Start Date End Date Ky Fernandez MD [address] [place] [address] PCP - General 08/02/18
--- OUTSIDE RECORDS SUMMARY | 2023-11-10 22:15 | XMS_ITS | Encounter Summary ---
[place] [address] Care Team Providers Care Lubricating Machine Tender Name Role Phone Ky Fernandez MD Primary Care Provider [phone] Encounter Details Date Type Department Care Team (Latest Contact Info) Description 04/18/2017 2:06 PM EST - 04/18/2017 11:59 PM EST Hospital En[place] [address] Ky Fernandez MD [address] [place] [address] Visit for screening mammogram Discharge Disposition: Home [...] MAMMO SCREENING CAD AND FABIO BILATERAL Routine 04/18/2017 2:23 PM EST Visit for screening mammogram documented in this encounter Results * Mammo Screen CAD and Fabio Bilat (Generic) (04/18/2017 2:23 PM EST) Anatomical Region Laterality Modality Breast Bilateral Mammography Narrative 04/19/2017 9:36 AM EST BILATERAL MAMMOGRAPHY REASON FOR EXAM: Screening TECHNIQUE: CC and MLO views were obtained of each breast using standard 2-D mammography as well as 3-D tomosynthesis. Computer aided detection was used. Comparison: This is compared with prior images. FINDINGS: There are scattered areas of fibroglandular density. There are no suspicious microcalcifications, masses, or areas of distortion. The pattern is stable. Left breast postbiopsy change, stable. Upper and outer left breast focal asymmetry is stable and benign-appearing, since at least 2011. CONCLUSION: No mammographic evidence of malignancy. RECOMMENDATION: Routine screening. A result letter has been sent to this patient by the [facility]. BIRADS CATEGORY 2: Benign findings. * ??The [employer] and The Society of Breast Imaging recommend annual screening beginning at age 40 for the general female population. * ??Screening should continue as long as a woman is in good health and is expected to live 10 more years or longer. * ??All women should be familiar with the known benefits, limitations, and potential harms linked to breast cancer screening. They also should know how their breasts normally look and feel and report any breast changes to a health care provider right away. * ??Some women, because of their family history, a genetic tendency, or certain other factors, should be screened with MRIs along with mammograms. (The number of women who fall into this category is very small.) The patient and health care provider should discuss the patient history and decide if earlier screening and breast MRI are appropriate. Ky Fernandez MD [facility] MAMMO ORDERABLES documented in this encounter Visit Diagnoses Diagnosis Visit for screening mammogram Other screening mammogram documented in this encounter Care Teams Lubricating Machine Tender Relationship Specialty Start Date End Date Ky Fernandez MD [address] [place] [address] PCP - General Internal Medicine 12/26/15 01/08/21 documented as of this encounter
--- OUTSIDE RECORDS SUMMARY | 2023-11-10 22:15 | XMS_ITS | Encounter Summary ---
Author Organization [facility] Address [address] [place] [address] Care Team Providers Care Log Peeler Name Role Phone Ky Frenandez MD Primary Care Provider [phone] Encounter Details Date Type Department Care Team ([facility] Contact Info) Description 05/16/2019 Lab Requisition [facility] Pathology & Laboratory Medicine - [address] [address] Unknown, Provider, Social History Tobacco Use Types Packs/Day Years Used Date Smoking Tobacco: Never Assessed Sex and Gender Information Value Date Recorded Sex Assigned at Not on file Gender Identity Not on file Sexual Orientation Not on file documented as of this encounter Plan of Treatment Not on file documented as of this encounter Procedures Procedure Name Priority Date/Time Associated Diagnosis Comments SPEP, INCLUDES QUANTITATION OF MONOCLONAL SPIKE Routine 05/15/2019 10:20 EST documented in this encounter Results * (ABNORMAL) SPEP, INCLUDES QUANTITATION OF MONOCLONAL SPIKE (05/15/2019 10:20 EST) Total Protein 7.1 6.3 - 8.2 g/dL 05/17/2019 12:23 EST [facility] Albumin % 66.0 55.8 - 66.1 % 05/17/2019 12:23 EST [facility] Alpha-1 % 3.4 2.9 - 4.9 % 05/17/2019 12:23 EST [facility] Alpha-2 % 8.2 7.1 - 11.8 % 05/17/2019 12:23 EST [facility] Beta % 11.5 8.4 - 13.1 % 05/17/2019 12:23 EST [facility] Gamma % 10.9(L) 11.1 - 18.8 % 05/17/2019 12:23 EST [facility] SPEP Comment No apparent monoclonal protein seen on serum electrophoresis 05/17/2019 12:23 EST [facility] Comment:See scanned/suppleme ntary report. Blood VENOUS BLOOD / Unknown 05/15/2019 10:20 EST 05/16/2019 15:41 EST Provider Unknown CHEMISTRY & BLOOD GA S ORDERABLES Performing Organization Address City/State/[facility] Co de Phone Number [facility] [address] [place] [address] documented in this encounter Visit Diagnoses Not on filedocumented in this encounter Care Teams Log Peeler Relationship Specialty Start Date End Date Ky Fernandez MD [address] [place] [address] PCP - General 08/02/18 documented as of this encounter
--- OUTSIDE RECORDS SUMMARY | 2023-11-10 22:15 | XMS_ITS | Encounter Summary ---
[place] [address] Care Team Providers Care Switch Inspector Name Role Phone Kaci Angulo EARL Primary Care Provider [phone] Encounter Details Date Type Department Care Team (Late st Contact Info) Description 10/09/2014 9:03 AM EDT - 10/09/2014 11:59 PM EDT Hospital [place] [address] Breast mass Social History Tobacco Use Types [...] Name Priority Date/Time Associated Diagnosis Comments MAMMO STEREOTACTIC BIOPSY Routine 10/09/2014 10:14 AM EDT Breast mass SURGICAL PATHOLOGY REPORT Routine 10/09/2014 9:41 AM EDT SPECIMEN TO PATHOLOGY Routine 10/09/2014 9:41 AM EDT documented in this encounter Results * Mammo stereotactic (10/09/2014 10:14 AM EDT) [...] tomographic guidance and direct digital imaging. ??The Fusion Sheepgic Affirm unit was used. ??The patient was in a upright position. 6 core biopsy specimens were obtained using a SurMyPrepApp Eviva 9g 20mm device. Biopsy specimens were [...] cancer PATHOLOGIC DIAGNOSIS: Focal fibrosis Procedure Note Lewis Ashley MD - 10/10/2014 STEREOTACTIC GUIDED VACUUM [...] using tomographic guidance anddirect digital imaging. The Fusion Sheepgic Affirm unit was used. The patient was [...] her by telephone REVIEW PATH CONFERENCE?: Yes Lewis Ashley MD IMG MAMMO ORDERABLES * Surgical Pathology Report (10/09/2014 9:41 AM EDT) Final Diagnosis ? [facility] ? Provider: ?? LEWIS ASHLEY ?Pt. Name: ?? GIANNA DOBSON ? Acc #: ?[id number] ?Pt. ? Col Date: ?? 10/09/2014 ? /Sex: ?1945,(68 years),Female ? Rec Date: ?? 10/09/2014 ? LOC: ?3S ? SURGICAL PATHOLOGY ? ---Pathologic Diagnosis--- ? Needle biopsies: ?Left breast ? Diagnosis: ?Benign, mildly atrophic, breast tissue with focal ? stromal fibrous tissue. ? Microcalcificat ions: ??N/A ? 10/10/14 ? CCB ? 10/10/14 Verified by: ? Malathi Martinez DO ? Pathologist ? (Electronic Signature) ? The attending pathologist whose signature appears on this report has ? reviewed all diagnostic slides and has edited the gross and/or ? microscopic portion of the report in rendering the final pathologic ? diagnosis. ? ---Comment--- ? Discussed with Dr. Ashley. ? ---Gross Description--- ? A - Labeled/Fixativ e: Left breast stereo, formalin. ? Quantity/Size: Multiple, ranging from 1.0 x 0.3 cm to 7.0 x 0.3 cm. ? Tissue Description: Fibrofatty needle core biopsies and tissue fragments. ? Ischemic Time: Not provided. ? Sections/Proces sing: The longest cores are bisected. (T5) ??sns ? ---Clinical Information--- ? Specimen Submitted: ? A - Left breast stereo ? Clinical History: ? Mass ? Clinical Diagnosis: ? Fibrosis, radial scar, CA 10/10/2014 12:15 PM EDT [facility] BREAST STRUCTURE / Unknown 10/09/2014 9:41 AM EDT 10/09/2014 9:41 AM EDT Lewis Ashley MD PATHOLOGY/CYTOLOGY O MIHIR Performing Organization Address City/[facility]/ZIP Co de Phone Number [facility] [place] [phone] * Specimen to Pathology (surgical or derm) (10/09/2014 9:41 AM EDT) AP Specimen 10/09/2014 9:41 AM EDT 10/09/2014 9:41 AM EDT Narrative SHERI MORILLO - 10/09/2014 9:41 AM EDT Specimen requisition ordered. ??Separate Pathology report to follow Lewis Ashley MD PATHOLOGY/CYTOLOGY O MIHIR CELESTESILVANO WADSWORTHDARLENEHEATHER documented in this encounter Visit Diagnoses Diagnosis Breast mass Lump or mass in breast documented in this encounter Administered Medications Inactive Administered Medications - up to 3 most recent administrations Medication Order MAR Action Action Date Dose Rate Site lidocaine (XYLOCAINE) 10 mg/mL (1 %) injection 10 mg 10 mg, Intradermal, ONCE, 1 dose, On Tue10/09/14 at 1000, Routine Given 10/09/2014 9:30 AM EDT 10 mg documented in this encounter Care Teams Switch Inspector Relationship Specialty Start Date End Date Kaci Angulo APRN [address] [place] [address] PCP - General 08/01/14 12/25/15 documented as of this encounter
--- OUTSIDE RECORDS SUMMARY | 2023-11-10 22:15 | XMS_ITS | Encounter Summary ---
Author Organization [facility] Address [address] [place] [address] Care Team Providers Care Torch Operator Name Role Phone Kaci Angulo APRN Primary Care Provider [phone] Encounter Details Date Type Department Care Team ([facility] st Contact Info) Description 07/31/2018 Results Only [facility] [phone] Toi Vu MD [address] [place] [address] [place] [address] Social History Tobacco Use Types Packs/Day Years Used Date Smoking Tobacco: Never Assessed Sex and Gender Information Value Date Recorded Sex Assigned at Not on file Gender Identity Not on file Sexual Orientation Not on file documented as of this encounter Plan of Treatment Not on file documented as of this encounter Procedures Procedure Name Priority Date/Time Associated Diagnosis Comments SURGICAL PATHOLOGY Routine 07/31/2018 21 :36 EDT documented in this encounter Results * SURGICAL PATHOLOGY (07/31/2018 21:36 EDT) Pathology Report: SURGICAL PATHOLOGY REPORT Reports generated via electronic interface contain original data; however they are lacking the format of the original report. Caution should be taken when reading/interpret ing unformatted reports. Name: ? GIANNA DOBSON ? Accession #: ? [id number] ? : ? 1945 (Age: 72) ??F ? Collect Date: ? 07/31/2018 ? Location: ? [facility] ? Receive Date: ? 07/31/2018 ? Provider: TOI VU MD Copy to: ANNE ALSTON MD ? Final Pathologic Diagnosis: A. COLON, ASCENDING, POLYP X3, BIOPSIES: - Fragments of tubular adenomas. B. COLON, DESCENDING, POLYP, BIOPSY: - Fragments of tubular adenoma. Document reviewed and electronically signed by: FELIBERTO SCOTT MD Report ??Date: 08/04/2018 15:00 By the signature above, the attending physician certifies that he/she has personally conducted a gross and/or microscopic examination of the described specimens and rendered or confirmed the above diagnosis. Specimen(s) Received: A. ??Ascending colon polyps (x3) B. ??Descending colon polyp Clinical History: Hx of polyps screening Gross Description: A. ?Received in formalin labelled with proper patient identification (initials K, C) and ascending colon polyps x3 is an aggregate of light king tissue fragments (1.5 x 0.3 x 0.2 cm.). Submitted in toto in block A1. B. ?Received in formalin labelled with proper patient identification (initials K, C) and descending colon polyp are two light king biopsies measuring 0.1 x 0.1 x 0.1 cm and 0.3 x 0.3 x 0.2 cm. Submitted intact in block B1. PATTIE Muniz (ASCP) 08/01/2018 8:15 AM End of Report [facility] 07/31/2018 21:3 6 EDT 07/31/2018 21:36 EDT Toi Vu MD PATHOLOGY ORDERA SAM [facility] [address] [place] [address] documented in this encounter Visit Diagnoses Not on filedocumented in this encounter Care Teams Torch Operator Relationship Specialty Start Date End Date Kaci Angulo APRN [address] [place] [address] PCP - General 02/04/17 08/01/18 documented as of this encounter
--- OUTSIDE RECORDS SUMMARY | 2023-11-10 22:15 | XMS_ITS | Encounter Summary ---
Author Organization [facility] Address [address] [place] [address] Care Team Providers Care Supervisor Instant Potato Processing Name Role Phone Ky Fernandez MD Primary Care Provider [phone] Encounter Details Date Type Department Care Team ([facility] st Contact Info) Description 07/16/2020 Lab Requisition [facility] Pathology & Laboratory Medicine - [address] [address] Ky Fernandez MD [address] [place] [id number] Encounter for other general examination Social History Tobacco Use Types Packs/Day Years [...] Priority Date/Time Associated Diagnosis Comments SURGICAL PATHOLOGY Today 07/15/2020 16 :00 EDT Encounter for other general examination documented in this encounter Results * SURGICAL PATHOLOGY (07/15/2020 16:00 EDT) Final Diagnosis A. SKIN OF SHOULDER, RIGHT, EXCISION: - Seborrheic keratosis, irritated and inflamed. 07/17/2020 13:15 EDT [facility] Attestation By the signature below, the attending physician certifies that they have 1) personally conducted a gross and/or microscopic examination of the described specimen(s), and/or personally interpreted the results of laboratory testing of the described specimen(s), and 2) personally rendered or confirmed the above diagnosis. 07/17/2020 13:15 [facility] at 1315 Clinical History R shoulder lesion; basal cell vs squamous cell vs atypical seborrheic keratosis 07/17/2020 13:15 [facility] Gross Description A. Received in formalin labelled with proper patient identification (initials K, C) and R shoulder is an unoriented elliptical skin excision (1.4 x 0.6 cm and is excised to the depth of 0.2 cm). There is a king friable lesion (0.7 x 0.5 x 0.3 cm). The surgical margin is inked blue. The specimen is serially sectioned and submitted entirely as tips, reverse en face, in A1 and central sections in A2. PATTIE GRANDE(ASCP) 07/16/2020 16:19 07/17/2020 13:15 [facility] Performing Lab [facility] 07/17/2020 13:15 [facility] Scanned Images 07/17/2020 13:15 [facility] Tissue TISSUE SPECIMEN FROM SKIN / Unknown 07/15/2020 16:00 EDT 07/16/2020 15:40 EDT Ky Fernandez MD PATHOLOGY ORDERABLES [facility] [address] [place] [address] documented in this encounter Visit Diagnoses Diagnosis Encounter for other general examination documented in this encounter Care Teams Supervisor Instant Potato Processing Relationship Specialty Start Date End Date Ky Fernandez MD [address] [place], [place] [id number] PCP - General 08/02/18 documented as of this encounter
--- OUTSIDE RECORDS SUMMARY | 2023-11-10 22:15 | XMS_ITS | Encounter Summary ---
Author Organization [facility] Address [facility] [place] [address] Care Team Providers Care Reconciler Name Role Phone Kaci Angulo APARTMENT MAINTENANCE TECHNICIAN Primary Care Provider [phone] Encounter Details Date Type Department Care Team (Late st Contact Info) Description 08/26/2014 Orders [place] [address] Ky Mcintosh MD [facility] [place] [address] Abnormal mammogram, unspecified Social History Tobacco Use Types Packs/Day Years Used Date Smoking Tobacco: Never Assessed Sex and Gender Information Value Date Recorded Sex Assigned at Female 05/27/2020 7:34 AM EST Gender Identity Not on file Sexual Orientation Straight 05/27/2020 7: 34 AM EST documented as of this encounter Plan of Treatment Not on file documented as of this encounter Results * Mammo Breast Ultrasound [...] medial. ??Tomographic imaging was performed ?? COMPARISONS: [id number] BREAST DENSITY: There are scattered areas of [...] lateral and medial. Tomographicimaging was performed COMPARISONS: [phone] BREAST DENSITY: There are scattered areas of [...] approach Ky Mcintosh MD IMG MAMMO ORDERABLES * Mammo direct digital unilateral (10/07/2014 1:45 [...] medial. ??Tomographic imaging was performed ?? COMPARISONS: [phone] BREAST DENSITY: There are scattered areas of [...] lateral and medial. Tomographicimaging was performed COMPARISONS: [phone] BREAST DENSITY: There are scattered areas of [...] encounter Visit Diagnoses Diagnosis Abnormal mammogram, unspecified Abnormal mammogram, unspecified Abnormal mammogram, unspecified documented in this encounter Care Teams Reconciler Relationship Specialty Start Date End Date Kaci Angulo APRN [address] [place] [address] PCP - General 08/01/14 12/25/15 documented as of this encounter
--- OUTSIDE RECORDS SUMMARY | 2023-11-10 22:15 | XMS_ITS | Encounter Summary ---
[place] [address] Care Team Providers Care Electronic Sensing Equipment Assembler Name Role Phone Rory Obregon APRN Primary Care Provider [phone] Encounter Details Date Type Department Care Team (Late st Contact Info) Description 08/02/2014 [place] [id number] Rory Obregon APRN [address] [place] [address] Social History Tobacco Use Types Packs/Day Years [...] Procedure Name Priority Date/Time Associated Diagnosis Comments REQUEST FOR 2ND READ MAMMO Routine 08/02/2014 4:30 PM EDT documented in this encounter Results * Request for 2nd read Mammo (08/02/2014 4:30 PM EDT) Anatomical Region Laterality Modality Other 08/02/2014 4:30 PM EDT Narrative 08/23/2014 5:02 PM EDT INTERPRETATION OF OUTSIDE MAMMOGRAMS AND/OR ULTRASOUND I have been asked to consult on this patient by Dr. RORY OBREGON APRN because she believes a review of this study may change or alter the care of this patient. STUDIES FROM: [facility]. DATES: 07/19/2014, 07/09/2014, studies dating back to 2010. CLINICAL HISTORY: PLEASE REVIEW O/S BREAST IMAGING FROM [facility] DONE 07/19/13. LEFT BREAST ASYMMETRIC DENSITY OR ARCHITECTURAL DISTORTION. CAT #3. QUESTION MORE IMAGING? QUESTION BX? PLEASE CALL THE PATIENT [phone](c). PATIENT WANTS TREATMENT AT [facility]. . ? VIEWS OBTAINED: Left CC and MLO 2-D/3-D spot compression views.. ??Tomographic imaging was performed. Left breast ultrasound. COMPARISONS: Bilateral mammography of 07/10/2014, 02/08/2013, 03/30/2011, 04/10/2010. BREAST DENSITY: Scattered fibroglandular density FINDINGS MAMMOGRAPHY: Left breast: There is a subtle area of distortion/asymmetry, 5.5 cm behind the nipple, best seen on CC view. This is not as well visualized on low views but suggested, at approximately 12:00. No additional findings. Right breast: No suspicious mass, microcalcifications, or distortion. No interval change. FINDINGS ULTRASOUND: No discrete findings are noted on ultrasound. DIAGNOSTIC SUMMARY: LEFT BREAST LESION 1 BIRADS 0. Additional imaging required FINDING: Asymmetry/distortion. SIZE: 7 mm LOCATION: Upper quadrant at 12OClock 5 cm from the nipple Right breast: BI-RADS 1, negative. RECOMMENDATION: Additional diagnostic workup of the left breast to include 2-D/3-D tomographic imaging, and consideration of ultrasound at that juncture. Procedure Note Ky Mcintosh MD - 08/23/2014 INTERPRETATION OF OUTSIDE MAMMOGRAMS AND/OR ULTRASOUND I have been asked to consult on this patient by Dr. RORY OBREGON APRN because she believes a review of this study may change or alter the careof this patient. STUDIES FROM: [facility]. DATES: 07/19/2014, 07/09/2014, studies dating back to 2010. CLINICAL HISTORY: PLEASE REVIEW O/S BREAST IMAGING FROM [facility] DONE 07/19/13. LEFT BREAST ASYMMETRIC DENSITY OR ARCHITECTURAL DISTORTION.CAT #3. QUESTION MORE IMAGING? QUESTION BX? PLEASE CALL THE [phone](c). PATIENT WANTS TREATMENT AT [facility]. . VIEWS OBTAINED: Left CC and MLO 2-D/3-D spot compression views.. Tomographic imagingwas performed. Left breast ultrasound. COMPARISONS: Bilateral mammography of 07/10/2014, 02/08/2013, 03/30/2011, 04/10/2010. BREAST DENSITY: Scattered fibroglandular density FINDINGS MAMMOGRAPHY: Left breast: There is a subtle area of distortion/asymmetry, 5.5 cm behindthe nipple, best seen on CC view. This is not as well visualized on low viewsbut suggested, at approximately 12:00. No additional findings. Right breast: No suspicious mass, microcalcifications, or distortion. No interval change. FINDINGS ULTRASOUND: No discrete findings are noted on ultrasound. DIAGNOSTIC SUMMARY: LEFT BREAST LESION 1 BIRADS 0. Additional imaging required FINDING: Asymmetry/distortion. SIZE: 7 mm LOCATION: Upper quadrant at 12OClock 5 cm from the nipple Right breast: BI-RADS 1, negative. RECOMMENDATION: Additional diagnostic workup of the left breast to include 2-D/3-Dtomographic imaging, and consideration of ultrasound at that juncture. Rory Obregon APRN IMG OUTSIDE INTER PRETATION ORDERABLES documented in this encounter Visit Diagnoses Not on filedocumented in this encounter Care Teams Electronic Sensing Equipment Assembler Relationship Specialty Start Date End Date Rory Obregon APRN [address] [place] [address] PCP - General 08/01/14 12/25/15 documented as of this encounter
--- OUTSIDE RECORDS SUMMARY | 2023-11-10 22:15 | XMS_ITS | Encounter Summary ---
Author Organization [facility] Address [facility] [place] [address] Care Team Providers Care Commanding Officer Traffic Division Name Role Phone Kaci Angulo KENNEL MANAGER DOG TRACK Primary Care Provider [phone] Encounter Details Date Type Department Care Team (Late st Contact Info) Description 02/08/2013 [place] [id number] Kaela Ashley MD [facility] [place] [address] Social History Tobacco Use Types Packs/Day Years [...] Comments FILM LIBRARY STORAGE ONLY MAMMO Routine 02/08/2013 1:40 PM EST documented in this encounter Results * Film Library- Storage only Mammo (02/08/2013 1:40 PM EST) Anatomical Region Laterality Modality Other 02/08/2013 1:40 PM EST Narrative 08/16/2014 1:54 PM EDT This is a Non-reportable exam Procedure Note NORBERT, UNSIGNED REPORT - 08/16/2014 This is a Non-reportable exam Kaela Ashley MD [facility] FILM LIBRARY ORD ERABLES documented in this encounter Visit Diagnoses Not on filedocumented in this encounter Care Teams Commanding Officer Traffic Division Relationship Specialty Start Date End Date Kaci Angulo APRN [address] [place] [address] PCP - General 08/01/14 12/25/15 documented as of this encounter
--- OUTSIDE RECORDS SUMMARY | 2023-11-10 22:15 | XMS_ITS | Encounter Summary ---
Author [place] [address] Care Team Providers Care Bindery Machine Feeder Offbearer Name Role Phone Ky Fernandez MD Primary Care Provider [phone] Encounter Details Date Type Department Care Team (Latest Contact Info) Description 03/30/2018 10:55 AM EST - 03/30/2018 11:59 PM EST Hospital Encounter Mammography/[place] [address] Ky Fernandez MD [address] [place] [address] Visit for screening mammogram Discharge Disposition: Home [...] Sig Dispensed Refills Start Date End Date ibuprofen (ADVIL;MOTRIN) 800 mg Tablet Take 800 mg by mouth 3 times daily. EPINEPHrine 0.3 mg/0.3 mL Auto-Injector Inject 0.3 mg into the muscle once as needed. Inject 0.3 mL IM once as needed for allergic reaction (Throat tight, difficulty breathing). Call 911 as directed. alendronate (FOSAMAX) 70 mg Tablet Take 70 mg by mouth every 7 days. Take in AM with full glass of water, on an empty stomach. Do not lie down for 30 min. 02/28/2020 documented as of this encounter Plan of Treatment Not on file documented as of this encounter Procedures Procedure Name Priority Date/Time Associated Diagnosis Comments MAMMO SCREENING CAD AND FABIO BILATERAL Routine 03/30/2018 11:13 AM EST Visit for screening mammogram documented in this encounter Results * Mammo Screening Cad and Fabio Bilateral (03/30/2018 11:13 AM EST) Anatomical Region Laterality Modality Breast Bilateral Mammography Narrative 03/30/2018 11:38 AM EST BILATERAL MAMMOGRAPHY REASON FOR EXAM: Screening TECHNIQUE: CC and MLO views were obtained of each breast using standard 2-D mammography as well as 3-D tomosynthesis. Computer aided detection was used. This is compared with prior images. FINDINGS: ??The breasts are almost entirely fatty. There are no suspicious microcalcifications, masses, or areas of distortion. The pattern is stable. CONCLUSION: No mammographic evidence of malignancy. RECOMMENDATION: Medical organizations agree that annual screening mammography beginning at age 40 saves the most lives. The risks of screening are negligible compared to dying from breast cancer or suffering from more aggressive treatment required when detected at a later stage. No woman is at low risk for breast cancer. Some women, because of their family history, a genetic tendency, or certain other factors, should be screened with breast MRI along with mammograms. (The number of women who fall into this category is very small). The patient and health care provider should discuss the patient history and decide if earlier screening and breast MRI are appropriate. Screening should continue as long as a woman is in good health and is expected to live 10 years or longer. Screening mammography may not detect 10-15% of breast cancers. Women should report any breast changes to a health care provider right away. A result letter has been sent to this patient by the [facility]. BIRADS CATEGORY 1: NEGATIVE Ky Fernandez MD IMG MAMMO ORDERABLES documented in this encounter Visit Diagnoses Diagnosis Visit for screening mammogram Other screening mammogram documented in this encounter Care Teams Bindery Machine Feeder Offbearer Relationship Specialty Start Date End Date Ky Fernandez MD [address] [place] [address] PCP - General Internal Medicine 12/26/15 01/08/21 documented as of this encounter
[2023-11-10 22:18] LABS: Bilirubin Negative (Negative); Blood Negative (Negative); Clarity Clear (Clear); Glucose Negative (Negative); Ketones Negative (Negative); Leukocyte Esterase Negative (Negative); Nitrite Negative (Negative); Specific Gravity 1.015 (1.005-1.025); Urobilinogen 0.2 mg/dL (Up to 0.2); pH 5.5 (5-8)
[2023-11-10 22:33] LABS: ALT 57 U/L (14-59); AST 34 U/L (15-37); Albumin 4.3 g/dL (3.4-5.0); Alkaline Phosphatase 54 U/L (46-116); Anion Gap 8.3 mmol/L (3-11); BUN 13 mg/dL (7-18); CO2 31.7 mmol/L (21.0-32.0); CREATININE 0.6 mg/dL (0.55-1.02); Calcium 9.7 mg/dL (8.5-10.1); Chloride 105 mmol/L (98-107); Estimated GFR 91.82 (mL/min/1.73m2); Glucose 90 mg/dL (74-106); Potassium 3.7 mmol/L (3.5-5.1); Sodium 145 mmol/L (136-145); TSH 1.57 uIU/Ml (0.36-3.74)
== END 2023-11-10 22:10 | disposition home or self-care (01) ==
LOC: NCHCN 22:09
PROVIDERS: PCP Family Medicine; Visit Provider Family Medicine
DX: F41.9 Anxiety disorder, unspecified (principal)
CPT/HCPCS: 80053; 81003; 84443; 85025

== ENCOUNTER 2023-11-13 23:06 | Emergency (ER) | payer MEDICARE, SELFPAY ==
[2023-11-13 23:09] VITALS: BP 150/84; PULSE 67; RESP 24; TEMP 36.6; O2SAT 97
[2023-11-13 23:12] VITALS: BP 150/84; PULSE 67; TEMP 36.6; O2SAT 97
--- NOTE | 2023-11-13 23:29 | ED.GENADUL_ITS ---
Discharge Plan Disposition Patient Disposition: Home Condition: Good Discharge Details Clinical Impression: Adverse effects of medication, Diarrhea Primary Care Provider: Cesilia Stokes ED Provider: Jerod Urias Home Meds and New Rx's Prescriptions: No Action vitamin K2 100 mcg capsule 100 mcg PO DAILY zoledronic [id number] [Reclast] 5 mg/100 mL piggyback IV .yearly ibuprofen 800 mg tablet 800 mg PO Q8H PRN (Reason: pain) Qty: 90 1RF Rx Instructions: take 1 tablet by mouth every 8 hours as needed, for pain atorvastatin 40 mg tablet 40 mg PO DAILY clotrimazole 1 % cream 1 applic topical BID carboxymethylcellulose sodium [Refresh Tears] 0.5 % drops 1 drp ophthalmic (eye) BID magnesium 200 mg tablet 200 mg PO DAILY vitamin B complex [B-Complex] 1 EACH tablet 1 ea PO EOD melatonin 3 MG tablet 4.5 mg PO HS epinephrine [EpiPen 2-Derrick] 0.3 MG/0.3 ML auto-injector 0.3 mg IM ONCE Patient Comments: pt reports last using it Oct 2019 minoxidil 5 % foam topical acetaminophen 500 mg tablet 1,000 mg PO Q8H PRN (Reason: fever) Qty: 90 1RF Rx Instructions: TAKE 2 TABLETS BY MOUTH EVERY 8 HOURS, NEEDED, FOR PAIN multivitamin [Multi-Day] 1 EACH tablet 1 tab PO Q2D calcium carbonate-vitamin D3 1 EACH tablet 2 tab PO DAILY Fish Oil 300 MG capsule 1,200 mg PO .EVERY OTHER DAY Discharge Instructions Instructions: Probiotics Additional Instructions: At this time your symptoms appear to be consistent with the adverse reaction from the buspirone. Please stop taking this medication. Please take a probiotic to help restore your gut health for the time being. This evening please drink plenty of fluids including or Powerade/electrolytes to help to resolve your dehydration status. If you notice any worsening of your symptoms, or any new symptoms such as vomiting, diarrhea, fever, chills, shortness of breath, chest pain, numbness, weakness, or fainting , please return immediately to the emergency department for reevaluation. Please follow up with your primary care provider as soon as possible for reassessment and reevaluation. As always, it was a pleasure participating in your medical care today. Referrals: Cesilia Stokes [Primary Care Provider] - HPI General Date/Time Provider Initiated Documentation: 11/13/23 23:29 . HPI Narrative: This is a pleasant 78-year-old female with a past medical history of mild anxiety and high cholesterol who presents today for evaluation of 2 singular episodes of diarrhea. 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 She does have anxiety and was recently started by her primary care provider on buspirone for her mild anxiety. When she took the first dose yesterday she had an episode of explosive diarrhea just a few minutes later. When she took the second dose today she again had explosive diarrhea a few minutes later. She did feel slightly dizzy and weak after this, but did not have any syncope. No chest pain or shortness of breath. She has had no nausea or vomiting. She has been able to eat and drink otherwise without any difficulty or pain or challenge. She denies any room spinning sensation. She does have chronic tinnitus. She does admit to some chronic underlying dizziness, but denies any acute change. She denies any blood in her stool, recent foreign travel, recent camping or drinking out of [place]. No other sick contacts. No recent antibiotic use. No other complaints at this time. She states that she has had a similar reaction like this in the past when she took oral magnesium, and stopping the magnesium resolved the symptoms. Related Data Home Medications ?Medication ?Instructions ?Recorded ?Confirmed calcium carbonate 600 mg-vitamin 2 tab PO DAILY 03/26/14 12/20/21 D3 5 mcg (200 unit) tablet multivitamin (Multi-Day tablet) 1 tab PO Q2D 03/26/14 12/20/21 omega-3 fatty acids 300 mg capsule 1,200 mg PO .EVERY OTHER DAY 03/26/14 12/20/21 (Fish Oil) vitamin B complex (B-Complex 1 ea PO EOD 08/11/17 12/20/21 tablet) melatonin 3 mg tablet 4.5 mg PO HS 08/24/17 12/20/21 EpiPen 2-Derrick 0.3 mg/0.3 mL 0.3 mg IM ONCE 10/25/17 12/20/21 injection, auto-injector (epinephrine) vitamin K2 100 mcg capsule 100 mcg PO DAILY 11/11/20 12/20/21 minoxidil 5 % topical foam applic topical 07/09/21 12/20/21 zoledronic acid 5 mg/100 mL in IV .yearly 07/09/21 12/20/21 mannitol 5 %-water intravenous piggybck (Reclast) acetaminophen 500 mg tablet 1,000 mg (2 x 500 mg) PO Q8H PRN 08/10/21 12/20/21 fever #90 tabs ibuprofen 800 mg tablet 800 mg PO Q8H PRN pain #90 tabs 08/21/21 12/20/21 atorvastatin 40 mg tablet 40 mg PO DAILY 12/07/21 12/20/21 carboxymethylcellulose sodium 0.5 1 drp ophthalmic (eye) BID 12/07/21 12/20/21 % eye drops (Refresh Tears) clotrimazole 1 % topical cream 1 applic topical BID 12/07/21 12/20/21 magnesium 200 mg tablet 200 mg PO DAILY 12/07/21 12/20/21 Previous Rx's ?Medication ?Instructions ?Recorded acetaminophen 500 mg tablet 1,000 mg (2 x 500 mg) PO Q8H PRN 08/10/21 fever #90 tabs ibuprofen 800 mg tablet 800 mg PO Q8H PRN pain #90 tabs 08/21/21 Allergies Allergy/AdvReac Type Severity Reaction Status Date / Time venom-honey bee (bee venom Allergy Severe Anaphylaxsi Verified 11/13/23 23:08 (honey bee)) s fluoxetine (From Prozac) AdvReac Intermediate paranoid Verified 11/13/23 23:08 hormone replacement therapy AdvReac Intermediate paranoid Uncoded 11/13/23 23:08 SSRI Medications AdvReac Intermediate Other (See Uncoded 11/13/23 23:08 Comment) General Stated Complaint: Abd Prob MALLIKA: 3 Review of Systems All systems reviewed & are unremarkable except as noted in HPI and below Exam Narrative Exam Narrative: 1.Const: Well-nourished, Well-developed, appearing stated age 2.Eyes: PERRL, no conjunctival injection, and symmetrical lids. 3.ENT: Atraumatic external nose and ears. Moist MM. Neck: Symmetric, trachea midline, No thyromegaly. 4.CVS: +S1/S2, No murmurs or gallops. Peripheral pulses 2+ and equal in all extremities. Brisk capillary refill in all extremities. 5.RESP: Unlabored respiratory effort. Clear to auscultation bilaterally. No wheezes rales or rhonchi 6.GI: Soft, Nontender/Nondistended, No hepatosplenomegaly. No guarding or rebound. No pain in right Asha's point, negative Mccartney sign 7.MSK: Normocephalic/Atraumatic, Extremities w/o deformity or ttp No cyanosis or clubbing, Normal movement of all extremities 8.Skin: Warm, Dry. No rashes or lesions. 9.Neuro: peach grower II-XII grossly intact. Sensation grossly intact, no focal neurologic deficits. 10.Psych: (AAO) x3. Appropriate mood and affect Course Vital Signs Vital signs: Vital Signs Temperature 36.6 C 11/13/23 23:09 Pulse 67 11/13/23 23:09 Respiratory Rate 24 11/13/23 23:09 Blood Pressure 150/84 H 11/13/23 23:09 Pulse Oximetry 97 11/13/23 23:09 Temperature 36.6 C 11/13/23 23:12 Temperature Source Tympanic 11/13/23 23:12 Pulse 67 11/13/23 23:12 Respiratory Rate 24 11/13/23 23:09 Respiratory Effort Normal 11/13/23 23:12 Blood Pressure 150/84 H 11/13/23 23:12 Blood Pressure Position Sitting 11/13/23 23:12 Pulse Oximetry 97 11/13/23 23:12 Oxygen Delivery Method Room Air 11/13/23 23:12 Oxygen Flow Rate 0 11/13/23 23:12 Pain Level 0 11/13/23 23:12 Medical Decision Making This is a pleasant 78-year-old female with a past medical history of mild anxiety and high cholesterol who presents today for evaluation of 2 singular episodes of diarrhea. 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 She does have anxiety and was recently started by her primary care provider on buspirone for her mild anxiety. When she took the first dose yesterday she had an episode of explosive diarrhea just a few minutes later. When she took the second dose today she again had explosive diarrhea a few minutes later. She did feel slightly dizzy and weak after this, but did not have any syncope. No chest pain or shortness of breath. She has had no nausea or vomiting. She has been able to eat and drink otherwise without any difficulty or pain or challenge. She denies any room spinning sensation. She does have chronic tinnitus. She does admit to some chronic underlying dizziness, but denies any acute change. She denies any blood in her stool, recent foreign travel, recent camping or drinking out of [place]. No other sick contacts. No recent antibiotic use. No other complaints at this time. She states that she has had a similar reaction like this in the past when she took oral magnesium, and stopping the magnesium resolved the symptoms. Physical exam demonstrates a well-appearing female, no abdominal pain or tenderness, no concerning red flags to suggest an infectious etiology for the diarrhea. No tenderness to suggest diverticulitis. Patient otherwise appears notably well. Symptoms at this time appear to be consistent with mild iatrogenic causes of medication side effect from the buspirone which is a docume nted common reaction and side effect. Symptoms inconsistent with serotonin syndrome. No other concerning red flags. No syncope, vital signs notably stable. I did give the patient the option of IV fluids and rehydration versus oral rehydration's at home. She has elected to hold off on any IV and transition instead to oral rehydration at home. She does have Powerade already at home, however it was a citrus bland and she has not drunk any of this because she was concerned that there could potentially be grapefruit in it which could have interacted with the buspirone per the medication packaging. While this was a reasonable concern, I do feel that taking citrus Powerade at this point is very reasonable. Will recommend stopping the buspirone. The patient agrees with this. She does not want to take any additional buspirone at this time. She is not requesting any other additional anxiolytics. Patient will be discharged home. Recommend continued oral hydrations at home. Discussed red flags for which to return. I have extensively reviewed the treatment plan and discharge instructions with the patient. I have addressed all patient concerns at this time. The patient was made aware of what symptoms to monitor for that would warrant a return to the emergency department. Discussed the plan with the patient, they demonstrate verbal understanding and agreement with our assessment and plan at this time. The documentation in this chart was dictated using [employer] dictation software. Please excuse any dictation errors. Quality:SDOH Health Related Social Needs: No Data to Display PFSH All Active Problems History of total left knee replacement (Acute 05/27/21) DOS 05/27/21 Memory impairment (Acute) Screening for colon cancer (Acute) Left lower lobe pulmonary nodule (Acute) Intermittent palpitations (Acute) Colorectal polyps (Acute ~07/31/18) Medical History Basal cell carcinoma Hip joint pain Diverticulitis Abdominal pain Colon polyps Hyperlipidemia Neck mass Thyroid nodule UTI (urinary tract infection) Hx of skin cancer, basal cell Lumbosacral spondylosis Insomnia Trigger finger, left ring finger Low back pain Hip pain Perennial allergic rhinitis Peripheral neuropathy Diverticulosis Grief reaction Hair loss Ceruminosis Bilateral cataracts Right hand weakness Seborrheic keratosis Urinary incontinence Pancreatic lesion Thoracic back pain Compression fracture of T12 vertebra 2018 Encounter for screening colonoscopy Allergy to bee sting Onychogryphosis Arthritis of left knee Corticosteroid injection: 11/11/2020; 02/12/2019; 04/05/18 Neck pain Neuropathy Osteoarthritis Dysphagia Anxiety Osteoporosis Piriformis syndrome of left side Surgical History S/P colonoscopy (~07/31/18) Status post total right knee replacement (01/10/18) DOS: 01/10/18 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 History of tonsillectomy and adenoidectomy H/O vein stripping Social History Smoking/Tobacco Use Status: Never Smoking risk assessment performed?: Yes Alcohol Intake: current Alcohol Intake frequency: 0-2 drinks per day Alcohol type: wine Details: drinks one glass of wine nightly Drug use: Never Substance use type: does not use Current gender identity: female Do you feel safe at home: Yes (lives alone) Do you feel safe in your relationship?: Yes PAWSS Have you Been Recently Intoxicated or Drunk Within the Last 30 days?: No Have you Ever Experienced Previous Episodes of Alcohol Withdrawal?: No Have you ever Experienced Withdrawal Seizures?: No Have you ever Experienced Delirium Tremens(DT)s?: No Have you ever undergone Alcohol Rehabilitation Treatment (i.e, inpt ot outpatient treatment programs)?: No Have you ever Experienced Blackouts?: No Have you ever Combined Alcohol with other Downers within the last 90 days?: No Have you ever Combined Alcohol with any other Substance of Abuse during the last 90 days?: No Positive Blood Alcohol level on Presentation? [PCS.BAL]: No Evidence of Increased Autonomic Activity (i.e. HR>120, tremor, sweating, agitation, nausea)?: No Result: 0
[2023-11-13 23:30] VITALS: BP 150/84; PULSE 67; RESP 24; TEMP 36.6; O2SAT 97
--- OUTSIDE RECORDS SUMMARY | 2023-11-14 01:01 | XMS_ITS | Encounter Summary ---
Author Organization [facility] Address [address] [place] [address], [place] [address] Phone Care Team Providers [employer] Name Role Phone Style, Sydnee Zelda Primary Care Provider [phone] Encounter Details Date Type Department Care Team (Late st Contact Info) Description 08/09/2023 10:25 AM EDT Lab [facility] [address] [place] [address] Dizziness Social History Tobacco Use Types Packs/Day Years Used Date Smoking Tobacco: Never Smokeless Tobacco: Never Comments:My parents were smo kers-I lived with passive smoke from childhood Alcohol Use Standard Drinks/Week Comments Yes 2 (1 standard drink = 0.6 oz pur e alcohol) 4 per week average [facility] Utilities Answer Date Recorded In the past 12 months has e electric, gas, oil, or water [employer] threatened to shut off services in your home? No 03/28/2023 Humiliation, Afraid, Rape, and Kick questionnair e Answer Date Recorded Within the last year, have y ou been afraid of your partner or ex-partner? No 03/28/2023 Within the last year, have y ou been humiliated or emotionally abused in other ways by your partner or ex-partner? No Within the last year, have y ou been kicked, hit, slapped, or otherwise physically hurt by your partner or ex-partner? No 03/28/2023 Within the last year, have y ou been raped or forced to have any kind of sexual activity by your partner or ex-partner? No 03/28/2023 Social Connection and Isolat ion Panel [NHANES] Answer Date Recorded In a typical week, how many times do you talk on the phone with family, friends, or neighbors? Three times a week 03/28/2023 How often do you get togethe r with friends or relatives? Twice a week 03/28/2023 How often do you attend chur ch or mormonism services? More than 4 times per year 03/28/2023 Do you belong to any clubs o r organizations such as scientology groups, unions, fraternal or athletic groups, or school groups? Yes 03/28/2023 How often do you attend meet ings of the clubs or organizations you belong to? More than 4 times per year 03/28/2023 Are you , , di vorced, , never , or living with a partner? 03/28/2023 AUDIT-C Answer Date Recorded Q1: How often do you have a drink containing alcohol? 4 or more times a week 03/28/2023 Q2: How many drinks containi ng alcohol do you have on a typical day when you are drinking? 1 or 2 Q3: How often do you have si x or more drinks on one occasion? Never 03/28/2023 Overall Financial Resource Strain (CARDIA) Answe r Date Recorded How hard is it for you to pa y for the very basics like food, housing, medical care, and heating? Somewhat hard 03/28/2023 PHQ-2 Answer Date Recorded Patient Health Questionnaire-2 Score 0 07/22/2023 [facility] Questionnaire Answer Date Recorded Do you feel stress - tense, restless, nervous, or anxious, or unable to sleep at night because your mind is troubled all the time - these days? To some extent 03/28/2023 Exercise Vital Sign Answer Date Recorde d On average, how many days pe r week do you engage in moderate to strenuous exercise (like a brisk walk)? 4 days 03/28/2023 On average, how many minutes do you engage in exercise at this level? 50 min 03/28/2023 Hunger Vital Sign Answer Date Recorded Within the past 12 months, y ou worried that your food would run out before you got the money to buy more. Sometimes true Within the past 12 months, t he food you bought just didn't last and you didn't have money to get more. Never true 03/2023 PRAPARE - Transportation Answer Date Re corded In the past 12 months, has l ack of transportation kept you from medical appointments or from getting medications? No 03/2023 In the past 12 months, has l ack of transportation kept you from meetings, work, or from getting things needed for daily living? Yes 03/28/2023 Housing Stability Vital Sign Answer Daniel e Recorded In the last 12 months, was t here a time when you were not able to pay the mortgage or rent on time? No 03/28/2023 In the last 12 months, how many places have you lived? 3 03/28/2023 In the last 12 months, was t here a time when you did not have a steady place to sleep or slept in a alf (including now)? No 03/28/2023 Sex and Gender Information Value Date Recorded Sex Assigned at Choose not to disclose 06/2023 9:41 PM EDT Gender Identity Female 01/17/2022 5:45 PM EDT Sexual Orientation Choose not to disclose 2023 9:41 PM EDT Job Start Date Occupation Industry Not on file Not on file Not on file documented as of this encounter Plan of Treatment Upcoming Encounters Date Type Department Care Team (Late st Contact Info) Description 01/04/2024 11:20 AM EDT Procedure Visit [facility] [address] [facility] [place] [address] [place] [address] Katie Jones AUD 01/06/2024 2:00 PM EDT Appointment [facility] [address] [place] [address] 01/09/2024 2:00 PM EDT Office Visit [facility] [address] [facility] [place] 19th [address] [place] [address] Radha Coker MD [address] [place] [address] 01/10/2024 8:30 AM EDT Office Visit [facility] [address] [place] [address] Vandana, Sydnee Ndiaye DO [address] [facility] - [place] [address] 01/11/2024 10:00 AM EDT Office Visit [facility] [address] [place] [address] Kat Rico, PATTIE [address] [place] [address] 01/20/2024 11:45 AM EDT Clinical Support [facility] [address] [place] [address] Maria Eugenia Lucero, [facility] [address] [place] [address] 01/30/2024 8:40 AM EST Office [facility] [address] [facility] [place] 15[address] [place] [address] Jose Monique MD [address] [facility] [place] 15th [address], [address] [place] [address] 02/27/2024 12:50 PM EST Office Visit [facility] [address] [place] [phone] Kellie Bowser, MILAN [address] [facility] [place] [address] 06/19/2024 11:30 AM EDT Appointment [facility] [address] [place] [address] 06/19/2024 1:00 PM EDT Appointment [place] [address] [place] [address] 08/21/2024 1:40 PM EDT Office Visit [facility] at [address] [facility] [place] 3rd Floor [place], [place] [id number] Satya Wright PA [address] 3[address] [place] [address] 09/05/2024 10:30 AM EDT Office Visit [facility] [address] [place] [address] Tatiana Dominguez, KASH [address] [place], [place] [id number] documented as of this encounter Procedures Procedure Name Priority Date/Time Associated Diagnosis Comments COMPLETE BLOOD COUNT Routine 08/09/2023 10:17 AM EDT Dizziness URINALYSIS Routine 08/09/2023 10:17 AM EDT Dizziness URINALYSIS MICROSCOPIC Routine 10:17 AM EDT Dizziness COMPLETE BLOOD COUNT Routine 08/09/2023 10:17 AM EDT Dizziness VITAMIN B12 LEVEL Routine 08/09/2023 10: 17 AM EDT Dizziness COMPREHENSIVE METABOLIC PANEL Routine 08/09/2023 10:17 AM EDT Dizziness documented in this encounter Results * (ABNORMAL) Complete Blood Count (08/09/2023 10:17 AM EDT) [facility] Signature White Blood Cell 4.6 4.0 - 10.0 10E3/[facility] LAB HEMATOLOGY METHOD 08/09/2023 2:09 PM EDT [facility] Red Blood Cell 4.44 3.93 - 5.22 10E6/[facility] LAB HEMATOLOGY METHOD 08/09/2023 2:09 PM EDT [facility] Hemoglobin 14.1 11.4 - 14.4 gm/dL LAB HEMATOLOGY METHOD 08/09/2023 2:09 PM EDT [facility] Hematocrit 43.1(H) 33.3 - 41.4 % LAB HEMATOLOGY METHOD 08/09/2023 2:09 PM EDT [facility] Mean Corpuscular Volume 97.1(H) 79.4 - 94.8 fL LAB HEMATOLOGY METHOD 08/09/2023 2:09 PM EDT [facility] Mean Corpuscular Hemoglobin 31.8 25.6 - 32.2 pg LAB HEMATOLOGY METHOD 08/09/2023 2:09 PM EDT [facility] Mean Corpuscular Hemoglobin Concentration 32.7 30.0 - 36.0 gm/dL LAB HEMATOLOGY METHOD 08/09/2023 2:09 PM EDT [facility] Platelet 260 150 - 400 E3/[facility] LAB HEMATOLOGY METHOD 08/09/2023 2:09 PM EDT [facility] Mean Platelet Volume 9.5 9.4 - 12.3 fL LAB HEMATOLOGY METHOD 08/09/2023 2:09 PM EDT [facility] Red Cell Distribution Width Coefficient of John. 13.2 11.7 - 14.4 % LAB HEMATOLOGY METHOD 08/09/2023 2:09 PM EDT [facility] Red Cell Distribution Width Standard Deviation 47.2(H) 35.1 - 43.9 fL LAB HEMATOLOGY METHOD 08/09/2023 2:09 PM EDT [facility] Auto Nucleated Red Cell Count 0 % LAB HEMATOLOGY METHOD 08/09/2023 2:09 PM EDT [facility] Absolute NRBC 0.0 0.0 - 0.0 E3/[facility] LAB HEMATOLOGY METHOD 08/09/2023 2:09 PM EDT [facility] Blood Venous blood specimen / Unknown Venipuncture / Unknown 08/09/2023 10:17 AM EDT 08/09/2023 10:17 AM EDT Sydnee Zelda Style DO LAB BLOOD ORDERABLE S [facility] [address] [place] [address] * Urinalysis (08/09/2023 10:17 AM EDT) Color Yellow Colorless, Straw, Yellow LAB URINALYSIS - AUTOMATED METHOD 08/09/2023 3:25 PM EDT [facility] Clarity Clear Clear LAB URINALYSIS - AUTOMATED METHOD 08/09/2023 3:25 PM EDT [facility] Specific [place] Urine 1.007 1.005 - 1.030 LAB URINALYSIS - AUTOMATED METHOD 08/09/2023 3:25 PM EDT [facility] pH Urine Random 6.5 5.0, 5.5, 6.0, 6.5, 7.0, 7.5, 8.0 LAB URINALYSIS - AUTOMATED METHOD 08/09/2023 3:25 PM EDT [facility] Protein Urine Qualitative Negative Negative mg/dL LAB URINALYSIS - AUTOMATED METHOD 08/09/2023 3:25 PM EDT [facility] Glucose Urine Qualitative Negative Negative mg/dL LAB URINALYSIS - AUTOMATED METHOD 08/09/2023 3:25 PM EDT [facility] Ketone Urine Qualitative Negative Negative mg/dL LAB URINALYSIS - AUTOMATED METHOD 08/09/2023 3:25 PM EDT [facility] Blood Urine Qualitative Negative Negative LAB URINALYSIS - AUTOMATED METHOD 08/09/2023 3:25 PM EDT [facility] Urobilinogen Urine Qualitative <2 <2 mg/dL LAB URINALYSIS - AUTOMATED METHOD 08/09/2023 3:25 PM EDT [facility] Nitrite Urine Qualitative Negative Negative LAB URINALYSIS - AUTOMATED METHOD 08/09/2023 3:25 PM EDT [facility] Leukocyte Esterase Urine Qual Negative Negative LAB URINALYSIS - AUTOMATED METHOD 08/09/2023 3:25 PM EDT [facility] Bilirubin Urine Qualitative Negative Negative LAB URINALYSIS - AUTOMATED METHOD 08/09/2023 3:25 PM EDT [facility] Urine Urine specimen obtained by clean catch procedure / Unknown Non-blood Collection / Unknown 08/09/2023 10:17 AM EDT 08/09/2023 10:17 AM EDT Sydnee Zelda Style DO LAB URINE ORDERABLE S [facility] [address] [place] [address] * Urinalysis Microscopic (08/09/2023 10:17 AM EDT) RBC/HPF 1 <=2 /HPF LAB URINALYSIS - AUTOMATED METHOD 08/09/2023 3:28 PM EDT [facility] WBC/HPF <1 <=5 /HPF LAB URINALYSIS - AUTOMATED METHOD 08/09/2023 3:28 PM EDT [facility] Squamous Epithelial/HPF <1 <=5 /HPF LAB URINALYSIS - AUTOMATED METHOD 08/09/2023 3:28 PM EDT [facility] Mucus/LPF 1+ None Seen, 1+ /LPF LAB URINALYSIS - AUTOMATED METHOD 08/09/2023 3:28 PM EDT [facility] Urine Urine specimen obtained by clean catch procedure / Unknown Non-blood Collection / Unknown 08/09/2023 10:17 AM EDT 08/09/2023 10:17 AM EDT Sydnee Zelda Style DO LAB URINE ORDERABLE S [facility] [address] [place] [address] * (ABNORMAL) Comprehensive Metabolic Panel (08/09/2023 10:17 AM EDT) Sodium 141 136 - 145 mmol/L LAB CHEMISTRY METHOD 08/09/2023 2:49 PM EDT [facility] Potassium 4.2 3.5 - 5.1 mmol/L LAB CHEMISTRY METHOD 08/09/2023 2:49 PM EDT [facility] Chloride 105 98 - 107 mmol/L LAB CHEMISTRY METHOD 08/09/2023 2:49 PM EDT [facility] Carbon Dioxide Level 25 23 - 29 mmol/L LAB CHEMISTRY METHOD 08/09/2023 2:49 PM EDT [facility] Calcium Level Total 9.3 8.6 - 10.3 mg/dL LAB CHEMISTRY METHOD 08/09/2023 2:49 PM EDT [facility] Blood Urea Nitrogen 12 7 - 25 mg/dL LAB CHEMISTRY METHOD 08/09/2023 2:49 PM EDT [facility] Creatinine 0.55(L) 0.60 - 1.20 mg/dL LAB CHEMISTRY METHOD 08/09/2023 2:49 PM EDT [facility] Glucose 96 70 - 105 mg/dL LAB CHEMISTRY METHOD 08/09/2023 2:49 PM EDT [facility] Comment: Random Glucose* Diabetes is diagnosed at blood glucose of greater than or equal to 200 mg/dL Fasting Glucose* Normal: less than 100 mg/dL Prediabetes: 100 mg/dl to 125 mg/dL Diabetes: 126 mg/dL or higher *ADA guidelines Protein Total 6.6 6.4 - 8.9 gm/dL LAB CHEMISTRY METHOD 08/09/2023 2:49 PM EDT [facility] Albumin Level 4.0 3.5 - 5.7 gm/dL LAB CHEMISTRY METHOD 08/09/2023 2:49 PM EDT [facility] Alkaline Phosphatase 40 34 - 104 unit/L LAB CHEMISTRY METHOD 08/09/2023 2:49 PM EDT [facility] Alanine Aminotransferase 39 7 - 52 unit/L LAB CHEMISTRY METHOD 08/09/2023 2:49 PM EDT [facility] Aspartate Aminotransferase 33 13 - 39 unit/L LAB CHEMISTRY METHOD 08/09/2023 2:49 PM EDT [facility] Total Bilirubin 0.6 0.3 - 1.0 mg/dL LAB CHEMISTRY METHOD 08/09/2023 2:49 PM EDT [facility] Anion Gap 11 2 - 11 mmol/L 08/09/2023 2:49 PM EDT [facility] Calculated Osmolality 282 275 - 295 mOsm/kg 08/09/2023 2:49 PM EDT [facility] U:C 22(H) 7 - 21 08/09/2023 2:49 PM EDT [facility] Estimated GFR 91 >=60 mL/min/1 .73m2 08/09/2023 2:49 PM EDT [facility] Comment: The eGFR is calculated with the CKD-EPI formula, which takes into consideration serum creatinine, age, and sex BUT NO RACE. GFR = 141 * min(Scr/k,1)a * max(Scr/k,1)-1.209 * 0.993Age * 1.018 (if female) Scr is serum creatinine (mg/dL), k is 0.7 for females and 0.9 for males, a is -0.329 for females and -0.411 for males, min indicates the minimum of Scr/k or 1, max indicates the maximum of Scr/k or 1. Based on review of evidence, the [facility] Clinical Practice [facility] made the decision to stop reporting eGFR by race effective 09/03/2020. Blood Venous blood specimen / Unknown Venipuncture / Unknown 08/09/2023 10:17 AM EDT 08/09/2023 10:17 AM EDT Sydnee Ndiaye Style DO LAB BLOOD ORDERABLE S [facility] [address] [place] [address] * (ABNORMAL) Vitamin B12 Level (08/09/2023 10:17 AM EDT) Vitamin B12 Level 1,050(H) 180 - 914 pg/mL LAB CHEMISTRY METHOD 08/09/2023 3:09 PM EDT [facility] Comment:Intrinsic factor blo cking antibodies are present in approximately half of pernicious anemia patients. There is a low frequency possibility that high titers of these antibodes may interfere with Vitamin B12 testing and cause falsely elevated results. If test results are in conflict with the clinical diagnosis, the sample can be tested for intrinsic factor blocking antibodies. Blood Venous blood specimen / Unknown Venipuncture / Unknown 08/09/2023 10:17 AM EDT 08/09/2023 10:17 AM EDT Sydnee Ross DO LAB BLOOD ORDERABLE S [facility] [address] [place] [address] documented in this encounter Visit Diagnoses Diagnosis Dizziness Dizziness and giddiness documented in this encounter Additional Health Concerns Assessment Noted Time PHQ-9 Depression Total Score: 0 03/31/19 24 3:16 PM EST A fall risk assessment has been complete d for the patient 07/22/2023 11:36 AM EDT documented as of this encounter Care Teams [employer] Relationship Specialty Start Date End Date Sydnee Ross DO [address] [facility] [place] [address] PCP - General Family Medicine 01/17/23 documented as of this encounter
--- OUTSIDE RECORDS SUMMARY | 2023-11-14 01:01 | XMS_ITS | Clinical Summary ---
Author Organization [facility] Address [address] [place] [address], [place] [phone] Phone Care Team Providers Care Sales Market Leader Name Role Phone Style, Sydnee Ndiaye DO Primary Care Provider [phone] Allergies Active Allergy Reactions Criticality Noted Date Comments Bee Venom Protein (Honey Bee) Anaphylaxis High 12/31/2021 Caffeine 06/27/1975 Estrogens, Conjugated 03/18/2015 Fluoxetine High 03/18/2015 Other reaction(s): paranoid Hymenoptera Allergenic Extract 03/30/2018 Serotonin Hallucinations 12/31/2021 Trazodone Anxiety Low 05/26/2020 Wasp Venom 03/30/2018 Medications Medication Sig Dispensed Refills Start Date End Date Status polyvinyl alcohol-povidon,PF, (Refresh Classic, PF,) 1.4-0.6 % eye drops in a dropperette 03/28/2019 Active ibuprofen 200 mg tablet Take by mouth if needed. PRN 03/28/2021 Active ascorbic wtke-gsfycbsm-tda (Emergen-C) 1,000 mg powder effervescent in packet Take by mouth once daily. 03/28/2019 Active zoledronic acid/mannitol-water (RECLAST IV) Infuse into a venous catheter Yearly. Active multivit with minerals/lutein (MULTIVITAMIN 50 PLUS ORAL) Take by mouth once daily. 03/28/2022 Active omega 1-sls-ekx-fish oil 1,000 mg (120 mg-180 mg) capsule Take by mouth once daily. 03/28/2007 Active atorvastatin (Lipitor) 40 mg tablet TAKE 1 TABLET BY MOUTH EVERY DAY 90 tablet 3 02/10/2023 Active ammonium lactate (Amlactin) 12 % creamIndications:Acq uired keratoderma Apply topically if needed in the morning and at bedtime for dry skin. 340 g 2 07/05/2023 07/04/2024 Active minoxidiL (Rogaine) 5 % foam once daily. Active melatonin 3 mg capsule Take 9 mg by mouth at bedtime. Active LORazepam (Ativan) 0.5 mg tablet Take 1 tab PO 45 minutes before the MRI. May repeat if necessary 2 tablet 09/06/2023 Active EPINEPHrine (Epipen) 0.3 mg/0.3 mL injection syringe Inject 0.3 mL (0.3 mg) as directed if needed for anaphylaxis. Call 911 after use. 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 Last Assessment & Plan: Saw MORENITA 2022 No impact on vision - Monitor Dry eye syndrome of both eyes 01/31/2023 Last Assessment & Plan: Frequent PFATs throughout the day Lung nodule 05/27/2022 Low back pain 05/27/2022 Thyroid nodule 03/26/2022 Dysphagia 03/26/2022 Dyspnea on exertion 03/26/2022 Chronic neck pain 03/26/2022 Pancreatic lesion 03/26/2022 Diverticulosis 03/26/2022 Pseudophakia, both eyes 03/01/2022 Last Assessment & Plan: Clear and well-centered both eyes (OU) Good and stable vision both eyes (OU) Patient saw MORENITA in May, - possibly positive dysphotopsia/similar glare prior to posterior chamber intraocular lens (PCIOL). Discouraged replacement of intraocular lens (IOL) - reassured her that vision is good both eyes (OU), recommend PFATs prior to night driving to see if helprul Patient understands and will continue to monitor 07/2023: Clear and well-centered - happy with vision Neuromuscular disorder 03/01/2022 GERD (gastroesophageal reflux disease) 2 Compression fracture of body of thoracic vertebr a 02/17/2022 Subjective cognitive impairment 02/17/2022 Overview: Went to a memory clinic, 05/2021 after 2 hard concussions & decreasing recall, brain scan inconclusive, but forgetting is increasing-this is troubling Last Assessment & Plan: Pt presents with cognitive concerns that appear most consistent with normal cognitive aging changes, exacerbated by concern related to her maternal dementia history and her ongoing anxiety. Her cognitive testing is all normal and I reviewed those results with her and she was relieved. She reports intermittent memory issues, particularly when anxious. No evidence of neurodegenerative disease at this time. TO be the most cautious, we discussed a brain MRI and she would like to have this done. She does need Lorazepam for this and I sent in Rx for 2 tabs. -Order brain MRI to rule out microvascular changes. I will call her when completed. -Schedule follow-up cognitive testing in one year for comparison. Anxiety and Depression: Chronic anxiety and depression with difficulty finding a therapist. History of poor response to SSRIs and trazodone. Currently managing symptoms with meditation. -Recommended to fill out provider matching form on [facility] website to find a suitable therapist. -Consider extended release melatonin for sleep disturbances related to anxiety. History of Concussions: Multiple past concussions from falls and accidents. -No immediate action required, but to be kept in mind during future assessments. -Continue with physical therapy for balance improvement. -Continue with meditation for anxiety management. Other hyperlipidemia 02/17/2022 Hypertension 03/28/2020 Situational mixed anxiety and depressive disorde r 07/27/2019 History of colon polyps 08/09/2018 Myopia of both eyes with astigmatism and presbyo guillermo 03/30/2018 Last Assessment & Plan: Rx double checked by AVW and put in trial frame. Patient walked around in Rx and was very happy - did not appreciate +0.25 both eyes (OU) which she did somewhat like behind phoropter. At near - very happy with vision Remake both eyes (OU) -took her to optical to discuss. 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 Alexander. Moved from [place] to [place]. Hx of macular pucker left eye (OS). Previously followed by Dr. Coon in [place] -mild epiretinal membrane (ERM) without traction, observe 01/2023: Vision is stable both eyes (OU) Mac OCT: stable - OD is normal, OS mild epiretinal membrane (ERM)/pseudohole and hint of subretinal fluid (SRF) last year has improved Amsler grid sent for home monitoring - call if any change in vision Follow up: 6-9 months for iop, dfe, mac oct both eyes (OU) ---patient will be [place] in [place], so will recheck eyes prior to departure. 07/2023: Vision and mac oct are stable both eyes (OU) Continue to monitor vision and amsler grid for changes Follow up; 6 months iop, dfe, mac oct History of basal cell carcinoma (BCC) 06/18/2011 Overview: B/w right eye and nose. 06/18/2011-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 06/27/2008 Osteoporosis 03/14/2006 Overview: 07/11/2015-started fosamax LUMBAR SPINE (L1, L2, L4) Bone Mineral Density: 0.813 g/cm2 LUMBAR SPINE T-SCORE: -3.0 Z-score: -1.3 LEFT TOTAL HIP Bone Mineral Density (g/cm2): 0.821 g/cm2 LEFT TOTAL HIP T-SCORE: ??-1.5 Z-score: 0.0 RIGHT TOTAL HIP Bone Mineral Density (g/cm2): 0.826 g/cm2 RIGHT TOTAL HIP T-SCORE: -1.4 Z-score: 0.0 LEFT FEMORAL NECK Bone Mineral Density (g/cm2): 0.863 g/cm2 LEFT FEMORAL NECK T-SCORE: -1.3 Z-score: 0.4 RIGHT FEMORAL NECK Bone Mineral Density (g/cm2): 0.848 g/cm2 RIGHT FEMORAL NECK T-SCORE: -1.4 Z-score: 0.3 High bone mass = T-score > + 2 Normal bone mass = T-score -1 to + 2 Low normal bone mass = T-score <-1 to -2 Low bone mass = T-score <-2 to -2.49 Osteoporosis = sign T-score <or = -2.5 Major osteoporotic fracture: 20.6 % Hip fract Heart murmur 03/28/1989 Anxiety 03/28/1951 Resolved Problems Problem Noted Date Diagnosed Date Resolved Date Elevated LFTs 05/25/2022 07/08/2022 Age-related cataract of both eyes 06/25/2015 01/31/2023 Nevus of choroid of left eye 06/25/2015 01/31/2023 Encounters Date Type Department Care Team Description 10/06/2023 11:00 AM EDT Clinical Support [facility] [address] [place] [address] Keyla Mccullough, PT, DPT Imbalance (Primary Dx) 09/26/[address] [place] [address] Keyla Mccullough PT, DPT appt listed ass no show, ot attended the visit. 09/21/2023 Orders Only [facility] [address] [address] Edith Kim MD Bilateral impacted cerumen (Primary Dx) 09/13/2023 3:00 PM EDT Office Visit [facility] [address] [facility] [address] [place] [address] Edith Kim MD Bilateral impacted cerumen (Primary Dx) 09/07/2023 Telephone [facility] [address] [place] [address] Sydnee Espinosa DO Nurse Visit 09/06/2023 2:20 PM EDT Office Visit [facility] [address] [place] [address] Tatiana Dominguez, GATE CUTTER Memory changes (Primary Dx); Subjective cognitive impairment 08/25/2023 11:10 AM EDT Office Visit [facility] [address] [place] [address] Kellie Bowser, OD Macular pucker, left eye (Primary Dx); Nevus of choroid of right eye; Pseudophakia, both eyes; PVD (posterior vitreous detachment), both eyes; Central cloudy dystrophy of Kang; Dry eye syndrome of both eyes 08/18/2023 11:00 AM EDT Clinical Support [facility] [address] [place], [place] [id number] BeusKeyla, PT, DPT Imbalance (Primary Dx); Benign paroxysmal vertigo of right ear 08/16/2023 4:00 PM EDT Office Visit [facility] [address] [place] [address] Frandy Negrete MD Neoplasm of skin (Primary Dx); Actinic keratosis; Stasis dermatitis of both legs; Androgenetic alopecia; Seborrheic keratosis from Last 3 Months Immunizations Name Administration Dates Next Due HepB-CpG (HEPLISAV-B) 03/24/2022,02/20/2022 Influenza Whole 01/16/2009 Influenza, Split (incl. evette fied surface antigen) 02/09/2001,01/07/1998,01/30/1997,01/13,01/04/1995,01/21/1994,01/19/1993 Influenza, Unspecified 12/06/2021,2014,01/25/2011,01/09 Influenza, seasonal, injectable 01/26/20 11,01/09/2010,01/16/2009,01/15,01/25/2007 Influenza, seasonal, injecta ble, preservative free 03/15/2014,01/01/2013,01/24/2012 MMR 10/31/1991 Moderna SARS-CoV-2 Vaccination 06/13/2020,2020 Moderna Sars-CoV-2 Bivalent Booster Vaccination 07/17/2022 Moderna Sars-cov-2 Vaccinati on 12yo And Older 12/21/2022 Novel [id number] 03/25/2009,03/25/2009 Pneumococcal Conjugate PCV 20 02/16/2023 Pneumococcal Polysaccharide PPV23 02/20/2022, RSV,Recombinant,Protein Subu nit RSVpreF, Adjuvant Reconstituted 12/24/2022 TD (adult), 2 Lf tetanus tox oid, preservative free, adsorbed 07/27/2007 Tdap 01/07/2023,02/13/2013 Zoster, live 03/27/2012 Family History Medical History Relation Name Comments Clotting disorder Father Hieu Infante Early natural Father Hieu Infante Heart attack Father Hieu Infante Heart disease Father Hieu Infante Heart failure Father Hieu Infante Hypertension Father Hieu Infante Vision loss Father Hieu Infante Alzheimer's disease Maternal Grandmother Faviola Beltran an Alcohol abuse Mother Amaris Infante Anxiety disorder Mother Amaris Infante Arthritis Mother Amaris Infante Cataracts Mother Amaris Infante Dementia Mother Amaris Infante Depression Mother Amaris Infante Hip fracture Mother Amaris Infante Vision loss Mother Amaris Infante Accidental Paternal Grandfather Hieu Walter Alexandro jovel Sr. Relation Name Status Comments Father Hieu Infante Maternal Grandmother Faviola Soler Mother Amaris Infante Paternal Grandfather Hieu Watson Naresh Sr. Social History Tobacco Use Types Packs/Day Years Used Date Smoking Tobacco: Never Smokeless Tobacco: Never Comments:My parents were smo kers-I lived with passive smoke from childhood Alcohol Use Standard Drinks/Week Comments Yes 2 (1 standard drink = 0.6 oz pur e alcohol) 1/2 glass of wine nightly [facility] Utilities Answer Date Recorded In the past 12 months has th e electric, gas, oil, or water company threatened to shut off services in your [...] often do you attend chur ch or mandaeism services? More than 4 times per year 03/28/2023 Do you belong to any clubs o r organizations such as evangelical groups, unions, fraternal or athletic groups, or [...] Date Recorded Patient Health Questionnaire-2 Score 0 09/13/2023 [facility] [place] [facility] Occupat ional Health - Occupational Stress Questionnaire Answer Date Recorded [...] place to sleep or slept in a group home (including now)? No 03/28/2023 Sex and Gender Information Value Date Recorded Sex Assigned at Choose not to disclose 06/2023 9:41 PM EDT Gender Identity Female 01/17/2022 5:45 PM EDT Sexual Orientation Choose not to disclose 2023 9:41 PM EDT Job Start Date Occupation Industry Not on file Not on file Not on file Last Filed Vital Signs Vital Sign Reading Time Taken Comments Blood Pressure 130/77 09/13/2023 2:55 PM EDT Pulse 63 09/13/2023 2:55 PM EDT Temperature 36.3 ??C (97.4 ??F) 09/13/2023 2:55 PM ED T Respiratory Rate 18 09/13/2023 2:55 PM EDT Oxygen Saturation 99% 09/13/2023 2:55 PM EDT Inhaled Oxygen Concentration - - Weight 70.9 kg (156 lb 3.2 oz) 09/13/2023 2:55 P M EDT Height 177.8 cm (5' 10) 09/13/2023 2:55 PM EDT Body Mass Index 22.41 09/13/2023 2:55 PM EDT Plan of Treatment Upcoming Encounters Date Type Department Care Team (Late st Contact Info) Description 01/04/2024 11:20 AM EDT Procedure Visit [facility] [address] [facility] [address] [place] [address] Katie Jones AUD 01/06/2024 2:00 PM EDT Appointment [facility] [address] [place] [address] 01/09/2024 2:00 PM EDT Office Visit [facility] [address] [facility] [address] [place] [address] Radha Coker MD [address] [place] [address] 01/10/2024 8:30 AM EDT Office Visit [facility] [address] [place] [address] Style, Sydnee Ndiaye, DO [address] [facility] [place] [address] 01/11/2024 10:00 AM EDT Office Visit [facility] [address] [place] [address] Kat Rico PA [address] [place] [address] 01/20/2024 11:45 AM EDT Clinical Support [facility] [address] [place] [address] Maria Eugenia Lucero, [facility] [address] [place] [address] 01/30/2024 8:40 AM EST [facility] [address] [facility] [address] [place] [address] Jose Monique MD [address] [facility] [address], [address] [place] [address] 02/27/2024 12:50 PM EST Office Visit [facility] [address] [place] [phone] Kellie Bowser, OD [address] [facility] [place] [address] 06/19/2024 11:30 AM EDT Appointment [place] [address] [place] [address] 06/19/2024 1:00 PM EDT Appointment [facility] [address] [place] [address] 08/21/2024 1:40 PM EDT [facility] Visit [facility] [address] [place] [address] Satya Wright PA [address] 3[address] [place] [address] 09/05/2024 10:30 AM EDT Office Visit [facility] [address] [place] [address] Tatiana Dominguez, KASH [address] [place] [address] Health Maintenance Due Date Last Done Comments Hepatitis A Vaccines (1 of 2 - Risk 2-dose series) 1964 Zoster Vaccines (2 of 3) 05/22/2012 03/27/2012 Influenza Vaccine (#1) 2023 , 11/26/2014, 03/15/2014, Additional history exists Medicare Annual Wellness (AWV) 02/04/2024 01/05/2023 Bone Density Scan 06/19/2024 06/20/2023, 06/16/2021 Diabetes Screening 08/08/2024 08/09/2023, 0 05/30/2023, 01/05/2023, Additional history exists Depression Screening 09/12/2024 09/13/2023 Lipid Panel 01/06/2028 01/05/2023, 01/01/2022 DTaP/Tdap/Td Vaccines (4 - Td or Tdap) 01/07/2033 01/07/2023, 02/13/2013, 07/27/2007 Colonoscopy Discontinued 05/19/2022, 08/14/2007 Colorectal Cancer Screening Discontinued RSV Immunization 60+ Completed 12/24/2022 Hepatitis C Screening Completed 01/05/2023 Pneumococcal Vaccine: 65+ Years Completed 02/16/2023, 02/20/2022, 01/25/2011 COVID-19 Vaccine Completed 06/11/2023, , 07/17/2022, Additional history exists CT Colonography Discontinued FIT-DNA Discontinued FIT Discontinued FOBT Discontinued HIB Vaccines Aged Out No longer eligi ble based on patient's age to complete this topic HPV Vaccines Aged Out No longer eligi ble based on patient's age to complete this topic IPV Vaccines Aged Out No longer eligi ble based on patient's age to complete this topic Meningococcal Vaccine Aged Out No mando rosette eligible based on patient's age to complete this topic RSV Immunization <20 Months Aged Out No longer eligible based on patient's age to complete this topic Rotavirus Vaccines Aged Out No longer eligible based on patient's age to complete this topic Sigmoidoscopy Discontinued Medical Devices Implanted Type Area Wardrobe Assistant Device Identifier Shelf Expiration Date Model / Serial / Lot Implant Ortho Knees Implant Ortho Knees Bilatera l: Knee Procedures Procedure Name Priority Date/Time Associated Diagnosis Comments CIRRUS OCT, MACULA - OU - BOTH EYES Routine 08/25/2023 1:02 PM EDT Macular pucker, left eye DESTRUCTION OF LESION Routine 08/16/2023 4:55 PM EDT Actinic keratosis SKIN / NAIL BIOPSY Routine 08/16/2023 4: 54 PM EDT Neoplasm of skin SKIN / NAIL BIOPSY Routine 08/16/2023 4: 54 PM EDT Neoplasm of skin DERMATOPATHOLOGY EXAM Routine 08/16/2023 4:54 PM EDT Neoplasm of skin COMPREHENSIVE METABOLIC PANEL Routine 08/09/2023 10:17 AM EDT Dizziness DEXA BONE DENSITY HIP/SPINE Routine 06/20/2023 11:22 AM EDT Osteoporosis, unspecified osteoporosis type, unspecified pathological fracture presence HEPATITIS C ANTIBODY Routine 01/05/2023 3:58 PM EDT Need for hepatitis C screening test CHEMISTRY PROFILE LIPID Routine 01/06/20 3:58 PM EDT Other hyperlipidemia COLONOSCOPY FLEXIBLE Routine 05/19/2022 3:12 PM EST History of colon polyps from Last 3 Months or Most Recently Relevant to Health Maintenance Results * Cirrus OCT, Macula - OU - Both Eyes (08/25/2023 1:02 PM EDT) Narrative CONTINUUM OPH PACS - 08/25/2023 1:02 PM EDT Right Eye Quality was good. Progression has been stable. Central Foveal Thickness: 285. Left Eye Quality was good. Progression has been stable. Central Foveal Thickness: 306. Notes OD: normal - stable OS: mild epiretinal membrane (ERM), pseudohole, hint of BERNARD - stable Kellie Bowser OD OPHTH TOMOGRAPHY CONTINUUM OPH PACS * Destr of lesion (08/16/2023 4:55 PM EDT) Frandy Magana MD - 08/16/2023 4:55 PM EDT Complexity: simple ?? Destruction method: cryotherapy ?? Informed consent: discussed and consent obtained ?? Lesion destroyed using liquid nitrogen: Yes ?? Region frozen until ice ball extended beyond lesion: Yes ?? Cryotherapy cycles: ??1 Outcome: patient tolerated procedure well with no complications ?? Additional details: ??Post liquid nitrogen care discussed Frandy Negrete MD DERM PROCEDURE ORDER CHAD * Lesion biopsy (08/16/2023 4:54 PM EDT) Narrative Frandy Negrete MD - 08/16/2023 4:54 PM EDT Type of biopsy: tangential ?? Informed consent: discussed and consent obtained ?? Anesthesia: the lesion was anesthetized in a standard fashion ?? Local anesthetic: 2% lidocaine with epinephrine. Instrument used: DermaBlade ?? Hemostasis achieved with: aluminum chloride ?? Outcome: patient tolerated procedure well ?? Post-procedure details: wound care instructions given ?? Frandy Negrete MD DERM PROCEDURE ORDER CHAD * Lesion biopsy (08/16/2023 4:54 PM EDT) Narrative Frandy Negrete MD - 08/16/2023 4:54 PM EDT Type of biopsy: tangential ?? Informed consent: discussed and consent obtained ?? Anesthesia: the lesion was anesthetized in a standard fashion ?? Local anesthetic: 2% lidocaine with epinephrine. Instrument used: DermaBlade ?? Hemostasis achieved with: aluminum chloride ?? Outcome: patient tolerated procedure well ?? Post-procedure details: wound care instructions given ?? Frandy Negrete MD DERM PROCEDURE ORDER CHAD * Dermatopathology Exam (08/16/2023 4:54 PM EDT) Case Report Dermatopathology ?Case: [id number] ? Authorizing Provider: ??Frandy Negrete MD ?Collected: ? 08/16/2023 1654 ? Ordering Location: ? [facility] at [address] ? Received: ?08/17/[address]23 [address] ? Pathologist: ? Ren Rivas, ? Specimens: ?? A) - Other, Right Upper Arm - Posterior ? B) - Other, Left Upper Arm - Posterior ? 4 3:57 PM EDT [facility] Pathologic Diagnosis A. Skin, right upper arm, posterior (biopsy): Lichenoid actinic keratosis (see comment). B. Skin, left upper arm, posterior (biopsy): Actinic keratosis (see comment). 3:57 PM EDT [facility] Comment Multiple recut sections have been examined for Specimens A and B. 3:57 PM EDT [facility] Microscopic Description Microscopic examination of the specimen(s) was performed unless ? gross-only? is specified. 3:57 PM EDT [facility] Clinical Information A. Right Upper Arm - Posterior Collection comments: Spot/Suspected skin cancer Clinical Description: History of BCC with new erythematous thin plaque Diff Dx: lesion: Rule out superficial BCC Malignancy suspicion: medium Percent removed: <90% Previous H/O Keratinocyte carcinoma: yes History of Melanoma: no Current Immunosuppression: no Lesion: Neoplasm of skin (Right Upper Arm - Posterior) Objective: Erythematous thin plaque Biopsy Type: Shave Biopsy B. Left Upper Arm - Posterior Collection comments: Spot/Suspected skin cancer Clinical Description: History of BCC with new erythematous thin plaque Diff Dx: lesion: Rule out superficial BCC Malignancy suspicion: medium Percent removed: <90% Previous H/O Keratinocyte carcinoma: yes History of Melanoma: no Current Immunosuppression: no Lesion: Neoplasm of skin (Left Upper Arm - Posterior) Objective: Erythematous thin plaque Biopsy Type: Shave Biopsy 3:57 PM EDT [facility] Gross Description Specimen A. is received in 10% neutral buffered formalin, labeled with Gianna Infante, , and Source: Other; Description: Right Upper Arm - Posterior. Specimen type: skin shave Fragment(s): 1 Size(s): 1.0 x 0.7 x 0.1 cm, trisected Ink code: Black: resection margin Cassette summary: A1 Dictated by Nohemy Oreilly Grossing Technologist Specimen B. is received in 10% neutral buffered formalin, labeled with Gianna Andrey Infante, , and Source: Other; Description: Left Upper Arm - Posterior. Specimen type: skin shave Fragment(s): 1 Size(s): 0.8 x 0.7 x 0.1 cm, trisected Ink code: Black: resection margin Cassette summary: B1 Dictated by Jeremy Fitzgerald Technologist 3:57 PM EDT [facility] Disclaimer For all special stai ns performed by [facility], including immunohistochemistry (IHC) and in-situ hybridization (JUICE & FISH), all controls show appropriate reactivity. The following applies to all IHC, JUICE, and FISH testing: The testing was developed and validated as required by the CLIA ? 88 regulations. The testing has not been cleared by the U.S. Food and Drug Administration, but the FDA has determined such approval is not necessary for clinical use. IHC assays have not been validated on decalcified tissues; results should be interpreted with caution given the possibility of false negativity on decalcified specimens. 3:57 PM EDT [facility] Skin Topography unknown / Unknown 08/16/2023 4:54 PM EDT 08/17/2023 11:08 AM EDT Comment: Spot/Suspected skin cancer Clinical Description: History of BCC with new erythematous thin plaque Diff Dx: lesion: Rule out superficial BCC Malignancy suspicion: medium Percent removed: <90% Previous H/O Keratinocyte carcinoma: yes History of Melanoma: no Current Immunosuppression: no Skin (tissue) specimen (specimen) Topography unknown / Unknown 08/16/2023 4:54 PM EDT 08/17/2023 11:08 AM EDT Comment: Spot/Suspected skin cancer Clinical Description: History of BCC with new erythematous thin plaque Diff Dx: lesion: Rule out superficial BCC Malignancy suspicion: medium Percent removed: <90% Previous H/O Keratinocyte carcinoma: yes History of Melanoma: no Current Immunosuppression: no Frandy Negrete MD LAB PATHOLOGY ORDERA BLES [facility] [address] [place] [address] * (ABNORMAL) Comprehensive Metabolic Panel (08/09/2023 10:17 AM EDT) Sodium 141 136 - 145 mmol/L LAB CHEMISTRY METHOD 08/09/2023 2:49 PM EDT [facility] Potassium 4.2 3.5 - 5.1 mmol/L LAB CHEMISTRY METHOD 08/09/2023 2:49 PM EDT [facility] Chloride 105 98 - 107 mmol/L LAB CHEMISTRY METHOD 08/09/2023 2:49 PM EDT [facility] Carbon Dioxide Level 25 23 - 29 mmol/L LAB CHEMISTRY METHOD 08/09/2023 2:49 PM EDT [facility] Calcium Level Total 9.3 8.6 - 10.3 mg/dL LAB CHEMISTRY METHOD 08/09/2023 2:49 PM EDT [facility] Blood Urea Nitrogen 12 7 - 25 mg/dL LAB CHEMISTRY METHOD 08/09/2023 2:49 PM EDT [facility] Creatinine 0.55(L) 0.60 - 1.20 mg/dL LAB CHEMISTRY METHOD 08/09/2023 2:49 PM EDT [facility] Glucose 96 70 - 105 mg/dL LAB CHEMISTRY METHOD 08/09/2023 2:49 PM EDT [facility] Comment: Random Glucose* Diabetes is diagnosed at blood glucose of greater than or equal to 200 mg/dL Fasting Glucose* Normal: less than 100 mg/dL Prediabetes: 100 mg/dl to 125 mg/dL Diabetes: 126 mg/dL or higher *ADA guidelines Protein Total 6.6 6.4 - 8.9 gm/dL LAB CHEMISTRY METHOD 08/09/2023 2:49 PM EDT [facility] Albumin Level 4.0 3.5 - 5.7 gm/dL LAB CHEMISTRY METHOD 08/09/2023 2:49 PM EDT [facility] Alkaline Phosphatase 40 34 - 104 unit/L LAB CHEMISTRY METHOD 08/09/2023 2:49 PM EDT [facility] Alanine Aminotransferase 39 7 - 52 unit/L LAB CHEMISTRY METHOD 08/09/2023 2:49 PM EDT [facility] Aspartate Aminotransferase 33 13 - 39 unit/L LAB CHEMISTRY METHOD 08/09/2023 2:49 PM EDT [facility] Total Bilirubin 0.6 0.3 - 1.0 mg/dL LAB CHEMISTRY METHOD 08/09/2023 2:49 PM EDT [facility] Anion Gap 11 2 - 11 mmol/L 08/09/2023 2:49 PM EDT [facility] Calculated Osmolality 282 275 - 295 mOsm/kg 08/09/2023 2:49 PM EDT [facility] U:C 22(H) 7 - 21 08/09/2023 2:49 PM EDT [facility] Estimated GFR 91 >=60 mL/min/1 .73m2 08/09/2023 2:49 PM EDT [facility] Comment: The eGFR is calculated with [...] 1. Based on review of evidence, the [facility] Clinical Practice [facility] made the decision to stop reporting eGFR by race effective 09/03/2020. Blood Venous blood specimen / Unknown Venipuncture / Unknown 08/09/2023 10:17 AM EDT 08/09/2023 10:17 AM EDT Sydnee Ndiaye Style DO LAB BLOOD ORDERABLE S [facility] [address] [place] [address] * Dexa Bone Density Hip/Spine (06/20/2023 11:22 AM EDT) Anatomical Region Laterality Modality Bone density Digital Radiogra phy Narrative 06/20/2023 11:47 AM EDT ? Bone Density Report ? Name: ?Gianna Infante Age: ? 77 Sex: ? Female Ethnicity: ? White Date of : 1945 Indication: postmenopausal; screening for osteoporosis; parental hip fracture; height loss; prior fracture; Referring Provider: SYDNEE ESPINOSA Study: Bone densitometry was performed. Exam Date: June 20, 2023 Accession number: [id number] Bone Density: Region ? BMD ?T-score ??Z-score ?? Classification AP Spine(L1, L2) ? 0.720 ?? -2.4 ?0.0 ? Osteopenia Femoral Neck (Left) ?0.609 ?? -2.2 ?0.0 ? Osteopenia Total Hip (Left) ? 0.763 ?? -1.5 ?0.5 ? Osteopenia Femoral Neck (Right) ? 0.694 ?? -1.4 ?0.8 ? Osteopenia Total Hip (Right) ?0.805 ?? -1.1 ?0.8 ? Osteopenia Total Hip Mean ? 0.784 ?? -1.3 ?0.7 ? Osteopenia World Health Organization criteria for BMD impression classify patients as: Normal (T-score at or above -1.0), Osteopenia (T-score between -1.0 and -2.5), or Osteoporosis (T-score at or below -2.5). 10-year Fracture Risk: FRAX not reported because: ??Prior hip or vertebral fracture ??Treated for osteoporosis Clinical Information Provided by Patient: Have had a previous hip or vertebral fracture Has had a low trauma fracture Parent has had a hip fracture Is being treated for osteoporosis Has used the following medications: Reclast (i.e. zoledronate), Vitamin D, Calcium Patient maximum height was 70 Menopause Age: 60 Drinks caffeinated beverages Onset of menses at age 14 Number of children 3 Impression: The patient has low bone mass, based on the Total Spine T-score. The patient has risk factors, including: parental hip fracture, previous fracture. Discussion: It is important to ask patients whether they are taking their medications and to encourage continued and appropriate compliance with their osteoporosis therapies to reduce fracture risk. It is also important to review their risk factors and encourage appropriate calcium and vitamin D intakes, exercise, fall prevention and other lifestyle measures. Follow-Up: Consider a repeat BMD and Vertebral Fracture Assessment (VFA) exam in 2 years or sooner if medically necessary, to reassess this patient's status. Reported by: [id number] on 06/20/2023 11:22:00 AM. Sydnee Espinosa DO IMG DXA PROCEDURES * Hepatitis C Antibody (01/05/2023 3:58 PM EDT) [facility] Hepatitis C Antibody Negative Negative LAB IMMUNOASSAY METHOD 01/07/2023 10:57 AM EDT [facility] Comment: Reference Range: Positive Screen: Presumptive evidence of antibodies to HCV. Equivocal: ??Antibodies to HCV may or may not be present; another specimen should be obtained from the individual for further testing. Negative ?Antibodies to HCV not detected; does not exclude the possibility of ??exposure to HCV. Blood Venous blood specimen / Unknown Venipuncture / Unknown 01/05/2023 3:58 PM EDT 01/05/2023 3:58 PM EDT Sydnee Ndiaye Style DO LAB BLOOD ORDERABLE S [facility] [address] [place] [address] * Chemistry Profile Lipid (01/05/2023 3:58 PM EDT) Cholesterol Total 144 <=200 mg/dL LAB CHEMISTRY METHOD 01/05/2023 8:00 PM EDT [facility] Comment: According to NCEP ATPIII Guidelines, after a 9 to 12 hour fast: ? Less than 200 mg/dL ?Desirable ? 200-239 mg/dL ?Borderline High ? Greater than or equal to 240 mg/dL ? High Triglyceride 90 <=149 mg/dL LAB CHEMISTRY METHOD 01/05/2023 8:00 PM EDT [facility] Comment: According to NCEP ATPIII Guidelines, after a 9 to 12 hour fast: Less than 150 mg/dL ?Normal 150-199 mg/dL ?Borderline High 200-499 mg/dL ?High Greater than or equal to 500 mg/dL ? Very High HDL Cholesterol 64 23 - 92 mg/dL LAB CHEMISTRY METHOD 01/05/2023 8:00 PM EDT [facility] Comment: According to NCEP ATPIII Guidelines, after a 9 to 12 hour fast: Less than 40 mg/dL ? Low Greater than or equal to 60 mg/dL ?High HDL Cholesterol >/= 60 mg/dL counts as a negative risk factor: ??Its presence removes one risk factor from the total count. Non-HDL Cholesterol 80 <=129 mg/dL 01/05/2023 8:00 PM EDT [facility] Comment: If LDL Goal is: ? Non-HDL Goal should be: < 160 mg/dL ? < 190 mg/dL < 130 mg/dL ? < 160 mg/dL < 100 mg/dL ? < 130 mg/dL < 70 ??mg/dL ? < 100 mg/dL LDL Cholesterol 62 mg/dL 8:00 PM EDT [facility] Comment: According to NCEP ATPIII Guidelines, after a 9 to 12 hour fast: Less than 100 mg/dL ?Optimal 100-129 mg/dL ?Near Optimal/Above Optimal 130-159 md/dL ?Borderline High 160-189 mg/dL ?High Greater than or equal to 190 mg/dL ?Very High The LDL result included in the lipid profile is a ??calculated LDL which may be invalid when the triglyceride is greater than 400 mg/dL. ??A direct LDL is not affected by triglycerides or fasting state and may be ordered separately. Very Low Density Lipoprotein 18 <=29 mg/dL 01/05/2023 8:00 PM EDT [facility] Blood Venous blood specimen / Unknown Venipuncture / Unknown 01/05/2023 3:58 PM EDT 01/05/2023 3:58 PM EDT Sydnee Zelda Style DO LAB BLOOD ORDERABLE S Performing Organization Address City/State/[facility] Co de Phone Number [facility] [address] [place] [address] * Colonoscopy Flexible Polypectomy/Tumor Removal (05/19/2022 3:12 PM EST) Anatomical Region Laterality Modality Endoscopy 05/19/2022 2:43 PM EST Narrative 05/19/2022 3:15 PM EST (ASC KASSANDRA B) [facility] Patient Name: Gianna Infante , ? Procedure Date: 05/19/2022 2:43 PM ? Date of : 1945 ?Admit Type: Ambulatory Age: 76 ? Gender: Female Note Status: Finalized ?Attending MD: Gareth Love MD Patient Location: [address] [place] [address] ? Instrument Name: [id number] Number of Addenda: 0 Procedure Date: ?05/19/2022 2:43:17 PM Procedure: ? Colonoscopy Indications: ? High risk colon cancer surveillance: Personal history ? of colonic polyps Providers: ? Gareth Love MD (Doctor) Referring MD: ?Sydnee Espinosa MD Medicines: ? Monitored Anesthesia Care Complications: ? No immediate complications. Estimated Blood Loss: ??Estimated blood loss: none. Procedure: ? Pre-Anesthesia Assessment: ? - Pre-procedure physical examination revealed no ? contraindications to sedation. ? - The risks and benefits of the procedure and the ? sedation options and risks were discussed with the ? patient. All questions were answered and informed ? consent was obtained. ? After I obtained informed consent, the scope was ? passed under direct vision. Throughout the procedure, ? the patient's blood pressure, pulse, and oxygen ? saturations were monitored continuously. The ? Colonoscope [id number] was introduced through ? the anus and advanced to the cecum, identified by ? appendiceal orifice and ileocecal valve. The ? colonoscopy was performed without difficulty. The ? patient tolerated the procedure well. The quality of ? the bowel preparation was good. ? Findings: ? Multiple small and large-mouthed diverticula were found in the ? recto-sigmoid colon and sigmoid colon. ? A 2 mm polyp was found in the rectum. The polyp was sessile. The polyp ? was removed with a jumbo cold forceps. Resection and retrieval were ? complete. ? Impression: ?- Diverticulosis in the recto-sigmoid colon and in the ? sigmoid colon. ? - One 2 mm polyp in the rectum, removed with a jumbo ? cold forceps. Resected and retrieved. Recommendation: ?- Patient has a contact number available for ? emergencies. The signs and symptoms of potential ? delayed complications were discussed with the patient. ? Return to normal activities tomorrow. Written ? discharge instructions were provided to the patient. ? - Resume previous diet. ? - Continue present medications. ? - Await pathology results. ? - Repeat colonoscopy in 5 years for surveillance. ? - A pathology letter will be generated and mailed to ? you. You should receive the letter in 2-3 weeks after ? your procedure. ? Procedure Code(s): ? --- Professional --- ? 58734, Colonoscopy, flexible; with biopsy, single or ? multiple Diagnosis Code(s): ? --- Professional --- ? Z86.010, Personal history of colonic polyps ? D12.8, Benign neoplasm of rectum ? K57.30, Diverticulosis of large intestine without ? perforation or abscess without bleeding CPT copyright 2021 [employer]. All rights reserved. The codes documented in this report are preliminary and upon strike on machine operator review may be revised to meet current compliance requirements. Attending Participation: ? I personally performed the entire procedure. ? Gareth Love MD 05/19/2022 3:15:08 PM This report has been electronically signed by: Gareth Love MD Note Initiated On: 05/19/2022 2:43 PM Scope Withdrawal Time 0 hours 15 minutes 29 seconds Total Procedure Duration Time 0 hours 22 minutes 27 seconds Scope In: 2:48:07 PM Scope Out: 3:10:34 PM Procedure Note Walter Love MD - 05/19/2022 (ASC KASSANDRA B) [facility] [place] [facility] Patient Name: Gianna Infante , Procedure Date: 05/19/2022 2:43 PM Date of : 1945 Admit Type: Ambulatory Age: 76 Gender: Female Note Status: Finalized Attending MD: Gareth Love MD Patient Location: [id number] Instrument Name: [id number] Number of Addenda: 0 Procedure Date: 05/19/2022 2:43:17 PM Procedure: Colonoscopy Indications: High risk colon cancer surveillance: Personalhistory of colonic polyps Providers: Gareth Love MD (Doctor) Referring MD: Sydnee Espinosa MD Medicines: Monitored Anesthesia Care Complications: No immediate complications. Estimated Blood Loss: Estimated blood loss: none. Procedure: Pre-Anesthesia Assessment: - Pre-procedure physical examination revealed no contraindications to sedation. - The risks and benefits of the procedure and the sedation options and risks were discussed with the patient. All questions were answered and informed consent was obtained. After I obtained informed consent, the scope was passed under direct vision. Throughout theprocedure, the patient's blood pressure, pulse, and oxygen saturations were monitored continuously. The Colonoscope [id number] was introducedthrough the anus and advanced to the cecum, identified by appendiceal orifice and ileocecal valve. The colonoscopy was performed without difficulty. The patient tolerated the procedure well. The qualityof the bowel preparation was good. Findings: Multiple small and large-mouthed diverticula were found in the recto-sigmoid colon and sigmoid colon. A 2 mm polyp was found in the rectum. The polyp was sessile. Thepolyp was removed with a jumbo cold forceps. Resection and retrieval were complete. Impression: - Diverticulosis in the recto-sigmoid colon and inthe sigmoid colon. - One 2 mm polyp in the rectum, removed with ajumbo cold forceps. Resected and retrieved. Recommendation: - Patient has a contact number available for emergencies. The signs and symptoms of potential delayed complications were discussed with thepatient. Return to normal activities tomorrow. Written discharge instructions were provided to thepatient. - Resume previous diet. - Continue present medications. - Await pathology results. - Repeat colonoscopy in 5 years for surveillance. - A pathology letter will be generated and mailedto you. You should receive the letter in 2-3 weeksafter your procedure. Procedure Code(s): --- Professional --- 94053, Colonoscopy, flexible; with biopsy, singleor multiple Diagnosis Code(s): --- Professional --- Z86.010, Personal history of colonic polyps D12.8, Benign neoplasm of rectum K57.30, Diverticulosis of large intestine without perforation or abscess without bleeding CPT copyright 2020 [employer]. All rights reserved. The codes documented in this report are preliminary and upon strike on machine operator reviewmay be revised to meet current compliance requirements. Attending Participation: I personally performed the entire procedure. Gareth Love MD 05/19/2022 3:15:08 PM This report has been electronically signed by: Gareth Love MD Note Initiated On: 05/19/2022 2:43 PM Scope Withdrawal Time 0 hours 15 minutes 29 seconds Total Procedure Duration Time 0 hours 22 minutes 27 seconds Scope In: 2:48:07 PM Scope Out: 3:10:34 PM Walter Love MD ENDOSCOPY PROCE DURE ORDERABLES from Last 3 Months or Most Recently Relevant to Health Maintenance Advance Directives For more information, please contact: [phone] (8:30 AM - 5PM [facility], Tuesday-Tuesday) * Full Code (Latest Code Status on File) Date Activated Date Inactivated Comments 12/31/2021 1:06 PM 01/01/2022 7:32 PM Care Teams Sales Market Leader Relationship Specialty Start Date End Date Vandana, Sydnee Ndiaye DO [address] [facility] [place] [address] PCP - General Family Medicine 01/17/23
--- OUTSIDE RECORDS SUMMARY | 2023-11-14 01:01 | XMS_ITS | Encounter Summary ---
Author Organization [facility] Address [address], [place] [address] Phone Care Team Providers Care Grain Merchandising Manager Name Role Phone Style, Sydnee Zelda GUILLEN Primary Care Provider [phone] Reason for Visit * Reason Comments ears clogg Encounter Details Date Type Department Care Team (Late st Contact Info) Description 09/13/2023 3:00 PM EDT [facility] [address] [facility] [address] [place] [address] Edith Rankin MD [address], [facility] [address] [place] [address] Bilateral impacted cerumen (Primary Dx) Social History Tobacco Use Types Packs/Day Years Used Date Smoking Tobacco: Never Smokeless Tobacco: Never Comments:My parents were smo kers-I lived with passive smoke from childhood Alcohol Use Standard Drinks/Week Comments Yes 2 (1 standard drink = 0.6 oz pur e alcohol) 1/2 glass of wine nightly [facility] Utilities Answer Date Recorded In the past 12 months has e electric, gas, oil, or water [place] threatened to shut off services in your [...] often do you attend chur ch or adventism services? More than 4 times per year 03/28/2023 Do you belong to any clubs o r organizations such as voodoo groups, unions, fraternal or athletic groups, or [...] Recorded Patient Health Questionnaire-2 Score 0 09/13/2023 [facility] [place] [employer] Occup[employer] [facility] - Occupational Stress [...] place to sleep or slept in a retirement (including now)? No 03/28/2023 Sex and Gender Information Value Date Recorded Sex Assigned at Choose not to disclose 06/2023 9:41 PM EDT Gender Identity Female 01/17/2022 5:45 PM EDT Sexual Orientation Choose not to disclose 2023 9:41 PM EDT Job Start Date Occupation Industry Not on file Not on file Not on file documented as of this encounter Last Filed [...] Mass Index 22.41 09/13/2023 2:55 PM EDT documented in this encounter Progress Notes * Edith Rankin MD - 09/13/2023 3:00 PM EDT Gianna Infante is a 77 y.o. year old adult here for acute concern. Subjective Acute Concerns: Patient is concerned about bilateral earwax impaction-gets recurrent episodes of earwax buildup every 2 to 3 months. Needs to have this irrigated approximately that interval. For the last 2 days, hasbeen using OTC Debrox though, no improvement in symptoms. No hearing changes. No pain. No URI-like symptoms. No drainage. Chronic Conditions: See [facility] Preventive Health: Addressed with PCP Past Medical History Diagnosis Date Acne 1957 Anxiety 1951 Arthritis of both hands 06/10/2015 Right > left Brain concussion 1987, 1993, 191, 191 Cataract 2012 Chronic constipation 08/2021 Chronic neck pain 03/26/2022 Colon polyp 2007 Compression fracture of body of thoracic vertebra (CMS/HCC) 02/17/2022 Dental disease 1961 Diverticulosis 03/26/2022 Dry eyes 2012 Dysphagia 10/2021 GERD (gastroesophageal reflux disease) Hair loss 2017 Head injury 1993 Heart murmur 1989 History of basal cell carcinoma (BCC) 06/18/2011 B/w right eye and nose. 06/18/2011-[facility] History of colon polyps 08/09/2018 Hypertension 2020 Impetigo 1954 Insomnia 04/23/2013 Macular degeneration Macular Pucker Macular pucker, left eye 08/09/2012 Memory deficit 02/17/2022 Went to a memory clinic, 05/2021 after 2 hard concussions & decreasing recall, brain scan inconclusive, but forgetting is increasing-this is troublingWent to a memory clinic, 05/2021 after 2 hardconcussions & decreasing recall, brain scan inconclusive, but forgetting is increasing-this is troubling to me. to me. 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 Nevus of choroid of right eye 06/25/2015 Osteoporosis 2012 Other hyperlipidemia 02/17/2022 Pancreatic lesion 03/26/2022 Pseudophakia, both eyes Restless leg syndrome 2014 Situational mixed anxiety and depressive disorder 07/27/2019 Sleep difficulties 1954 Spondylosis of lumbosacral spine without myelopathy 06/27/2008 Tanning bed exposure 1960 Thyroid nodule 03/26/2022 Tinnitus Urticaria 1964 Varicella 1952 Varicose veins 01/13/2011 Vision loss 1957 Past Surgical History: Procedure Laterality Date ADENOIDECTOMY 1951 CATARACT EXTRACTION Bilateral 2020 CE-IOL OU JOINT REPLACEMENT 12/2018 & 05/2021 knee TONSILLECTOMY 195 TOTAL KNEE ARTHROPLASTY Bilateral 2017 and 2021 VASCULAR SURGERY 1979?-Varicose vein stripping in both legs Family History Problem Relation Name Age of Onset Alcohol abuse Mother Amaris Infante Arthritis Mother Amaris Infante Depression Mother Amaris Infante Vision loss Mother Amaris Infante Cataracts Mother Amaris Infante Hip fracture Mother Amaris Infante Anxiety disorder Mother Amaris Infante Dementia Mother Amaris Infante Heart disease Father Hieu Infante Hypertension Father Hieu Infante Vision loss Father Hieu Infante Heart attack Father Hieu Infante Early natural Father Hieu Infante Heart failure Father Hieu Infante Clotting disorder Father Hieu Infante Alzheimer's disease Maternal Grandmother Faviola Soler Accidental Paternal Grandfather Hieu Infante Sr. Current Outpatient Medications on File Prior to Visit Medication Sig Dispense Refill ammonium lactate (Amlactin) 12 % cream Apply topically if needed in the morning and at bedtime for dry skin. 340 g 2 ascorbic zghh-auehngbr-laq (Emergen-C) 1,000 mg powder effervescent in packet Take by mouth once daily. atorvastatin (Lipitor) 40 mg tablet TAKE 1 TABLET BY MOUTH EVERY DAY 90 tablet 3 EPINEPHrine (Epipen) 0.3 mg/0.3 mL injection syringe Inject 0.3 mL (0.3 mg) as directed if needed for anaphylaxis. Call 911 after use. 1 each 0 ibuprofen 200 mg tablet Take by mouth if needed. PRN LORazepam (Ativan) 0.5 mg tablet Take 1 tab PO 45 minutes before the MRI. May repeat if necessary 2tablet 0 melatonin 3 mg capsule Take 9 mg by mouth at bedtime. minoxidiL (Rogaine) 5 % foam once daily. multivit with minerals/lutein (MULTIVITAMIN 50 PLUS ORAL) Take by mouth once daily. omega 0-jjr-hvp-fish oil 1,000 mg (120 mg-180 mg) capsule Take by mouth once daily. polyvinyl alcohol-povidon,PF, (Refresh Classic, PF,) 1.4-0.6 % eye drops in a dropperette zoledronic acid/mannitol-water (RECLAST IV) Infuse into a venous catheter Yearly. No current facility-administered medications on file prior to visit. Allergies Allergen Reactions Bee Venom Protein (Honey Bee) Anaphylaxis Fluoxetine Other reaction(s): paranoid Caffeine Estrogens, Conjugated Hymenoptera Allergenic Extract Serotonin Hallucinations Wasp Venom Trazodone Anxiety Social History Socioeconomic History Marital status: Single Spouse name: Not on file Number of children: Not on file Years of education: Not on file Highest education level: Not on file Occupational History Not on file Tobacco Use Smoking status: Never Smokeless tobacco: Never Tobacco comments: My parents were smokers-I lived with passive smoke from childhood Vaping Use Vaping status: Never Used Substance and Sexual Activity Alcohol use: Yes Alcohol/week: 2.0 standard drinks of alcohol Types: 2 Glasses of wine per week Comment: 1/2 glass of wine nightly Drug use: Never Sexual activity: Not Currently Partners: Male control/protection: Post-menopausal Other Topics Concern Not on file Social History Narrative Not on file Social Determinants of Health Financial Resource Strain: Medium Risk (03/28/2023) Overall Financial Resource Strain (CARDIA) Difficulty of Paying Living Expenses: Somewhat hard Food Insecurity: Food Insecurity Present (03/28/2023) Hunger Vital Sign Worried About Running Out of Food in the Last Year: Sometimes true Ran Out of Food in the Last Year: Never true Transportation Needs: Unmet Transportation Needs (03/28/2023) PRAPARE - Transportation Lack of Transportation (Medical): No Lack of Transportation (Non-Medical): Yes Physical Activity: Sufficiently Active (03/28/2023) Exercise Vital Sign Days of Exercise per Week: 4 days Minutes of Exercise per Session: 50 min Stress: Stress Concern Present (03/28/2023) [place] [place] [employer] Health - Occupational Stress Questionnaire Feeling of Stress : To some extent Social Connections: Moderately Integrated (03/28/2023) Social Connection and Isolation Panel [NHANES] Frequency of Communication with Friends and Family: Three times a week Frequency of Social Gatherings with Friends and Family: Twice a week Attends Rastafarian Services: More than 4 times per year Active Member of Clubs or Organizations: Yes Attends Club or Organization Meetings: More than 4 times per year Marital Status: Intimate Partner Violence: Not At Risk (03/28/2023) Humiliation, Afraid, Rape, and Kick questionnaire Fear of Current or Ex-Partner: No Emotionally Abused: No Physically Abused: No Sexually Abused: No Housing Stability: High Risk (03/28/2023) Housing Stability Vital Sign Unable to Pay for Housing in the Last Year: No Number of Places Lived in the Last Year: 3 Unstable Housing in the Last Year: No Review of Systems Constitutional: Negative for chills and fever. HENT: Negative for congestion, hearing loss and trouble swallowing. Eyes: Negative for itching and visual disturbance. Respiratory: Negative for cough and shortness of breath. Cardiovascular: Negative for chest pain and leg swelling. Gastrointestinal: Negative for abdominal pain, nausea and vomiting. Genitourinary: Negative for dysuria and hematuria. Musculoskeletal: Negative for back pain and joint swelling. Skin: Negative for color change and rash. Neurological: Negative for weakness and headaches. Psychiatric/Behavioral: Negative for behavioral problems. Objective Vitals: 09/13/23 1455 BP: 130/77 Pulse: 63 Resp: 18 Temp: (!) 36.3 ??C (97.4 ??F) SpO2: 99% Body mass index is 22.41 kg/m??. Physical Exam Constitutional: Appearance: Normal appearance. HENT: Head: Normocephalic and atraumatic. Right Ear: External ear normal. There is impacted cerumen. Left Ear: External ear normal. There is impacted cerumen. Nose: Nose normal. Eyes: Extraocular Movements: Extraocular movements intact. Conjunctiva/sclera: Conjunctivae normal. Pulmonary: Effort: Pulmonary effort is normal. Musculoskeletal: Cervical back: Neck supple. Skin: Coloration: Skin is not pale. Neurological: Mental Status: She is alert and oriented to person, place, and time. Mental status is at baseline. Psychiatric: Mood and Affect: Mood normal. Lab Results Component Value Date WBC 4.6 08/09/2023 HGB 14.1 08/09/2023 HCT 43.1 (H) 08/09/2023 PLT 260 08/09/2023 CHOL 144 01/05/2023 TRIG 90 01/05/2023 HDL 64 01/05/2023 ALT 39 08/09/2023 AST 33 08/09/2023 NA 141 08/09/2023 K 4.2 08/09/2023 CL 105 08/09/2023 CREATININE 0.55 (L) 08/09/2023 BUN 12 08/09/2023 CO2 25 08/09/2023 TSH 1.49 01/05/2023 INR 0.99 03/11/2022 Assessment Gianna Infante is a 77 y.o. year old adult here for follow up. 1. Bilateral impacted cerumen Patient underwent bilateral earwax removal through irrigation-verbal consent obtained. Tolerated procedure well without any side effects/residual symptoms. Improvement in symptoms following earwax removal. Return to further care precautions advised. - Ear cerumen removal; Future Reviewed and approved by EDITH RANKIN on 09/13/23 at 2:59 PM. documented in this encounter Plan of Treatment Upcoming Encounters Date Type Department Care Team (Late st Contact Info) Description 01/04/2024 11:20 AM EDT Procedure Visit [facility] [address] [facility] Medical Office [place] Floor [address] [place] [address] Katie Jones AUD 01/06/2024 2:00 PM EDT Appointment [place] [id number] [place] [address] 01/09/2024 2:00 PM EDT Office Visit [facility] [address] [facility] Medical Office [place] [address] [place] [address] Radha Coker MD [address] [place] [address] 01/10/2024 8:30 AM EDT [facility] [address] [place] [address] Style, Sydneesa Ndiaye, DO [address] [facility] - [place] [address] 01/11/2024 10:00 AM EDT Office Visit [facility] [address] [place] [address] Kat Rico, PATTIE [address] [place] [address] 01/20/2024 11:45 AM EDT Clinical Support [facility] at [facility] [address] [place] [address] Maria Eugenia Lucero, [facility] [address] [place] [address] 01/30/2024 8:40 AM EST Office Visit [facility] [address] [facility] [place] 15[address] [place] [address] Jose Monique MD 550 [facility] Medical Office [place] 15[address], [address] [place] [address] 02/27/2024 12:50 PM EST Office Visit [facility] [address] [place] [id number] Kellie Bowser, MILAN [address] [facility] [address] 06/19/2024 11:30 AM EDT Appointment [facility] [address] [place] [address] 06/19/2024 1:00 PM EDT Appointment [facility] [address] [place] [address] 08/21/2024 1:40 PM EDT Office Visit [facility] at [address] [facility] [address] 3rd [place] [address] Satya Wright PA [address] 3rd [place] [address] 09/05/2024 10:30 AM EDT Office Visit [facility] [address] [place] [address] Tatiana Dominguez, KASH [address] [place] [address] Scheduled Orders Name Type Priority Associated Diagnoses Orde r Schedule Ear cerumen removal Procedures Routine Bilateral impacted cerumen Expected: 09/13/2023 (Approximate), Expires: 09/12/2024 documented as of this encounter Visit Diagnoses Diagnosis Bilateral impacted cerumen- Primary Impacted cerumen documented in this encounter Additional Health Concerns Assessment Noted Time PHQ-9 Depression Total Score: 0 03/31/19 24 3:16 PM EST A fall risk assessment has been complete d for the patient 09/13/2023 2:54 PM EDT documented as of this encounter Care Teams Grain Merchandising Manager Relationship Specialty Start Date End Date Vandana, Sydnee Ndiaye DO [address] [facility] [place] [address] PCP - General Family Medicine 01/17/23 documented as of this encounter
--- OUTSIDE RECORDS SUMMARY | 2023-11-14 01:01 | XMS_ITS | Encounter Summary ---
Author Organization [facility] Address [address] [place] [address], [place] [address] Phone Care Team Providers Care Staple Cutter Name Role Phone Style, Sydnee Zelda Primary Care Provider [phone] Reason for Visit * Reason Comments Follow-up Encounter Details Date Type Department Care Team (Late st Contact Info) Description 08/25/2023 11:10 AM EDT Office Visit [facility] [address] [place] [address] Kellie Bowser, OD [address] [facility] [place] [id number] Macular pucker, left eye (Primary Dx); Nevus of choroid of right eye; Pseudophakia, both eyes; PVD (posterior vitreous detachment), both eyes; Central cloudy dystrophy of Kang; Dry eye syndrome of both eyes Social History Tobacco Use Types Packs/Day Years Used Date Smoking Tobacco: Never Smokeless Tobacco: Never Tobacco Cessation:Counseling Given: Not Answered Comments:My parents were smokers-I lived with passive smoke Alcohol Use Standard Drinks/Week Comments Yes 2 (1 standard drink = 0.6 oz pur e alcohol) 4 per week average [facility] Utilities Answer Date Recorded In [...] often do you attend chur ch or methodist services? More than 4 times per year 03/28/2023 Do you belong to any clubs o r organizations such as faith groups, unions, fraternal or athletic groups, or [...] Date Recorded Patient Health Questionnaire-2 Score 0 08/16/2023 [facility] of Occupat ional Health - Occupational Stress [...] place to sleep or slept in a residential (including now)? No 03/28/2023 Sex and Gender Information Value Date Recorded Sex Assigned at Choose not to disclose 06/2023 9:41 PM EDT Gender Identity Female 01/17/2022 5:45 PM EDT Sexual Orientation Choose not to disclose 2023 9:41 PM EDT Job Start Date Occupation Industry Not on file Not on file Not on file documented as of this encounter Progress Notes * Kellie Bowser, OD - 08/25/2023 11:10 AM EDT Subjective Patient ID: Gianna Infante is a 77 y.o. female. Chief Complaint Follow-up HPI iop, dfe, mac oct both eyes (OU) The patient denies any visual changes since previous exam. She uses P.F. artificial refresh tears prn ou. Last edited by Character, Jasper Chand on 08/25/2023 10:58 AM. No current outpatient medications on file. (Ophthalmic Drugs) Current Outpatient Medications (Other) Medication Sig ammonium lactate (Amlactin) 12 % cream Apply topically if needed in the morning and at bedtime for dry skin. ascorbic ulmo-pwbojziv-ogd (Emergen-C) 1,000 mg powder effervescent in packet atorvastatin (Lipitor) 40 mg tablet TAKE 1 TABLET BY MOUTH EVERY DAY clotrimazole (Lotrimin) 1 % cream EPINEPHrine (Epipen) 0.3 mg/0.3 mL injection syringe Inject 0.3 mL (0.3 mg) as directed if needed for anaphylaxis. Call 911 after use. fluticasone (Flonase) 50 mcg/actuation nasal spray Administer 2 sprays into each nostril once daily. Shake gently. Before first use, prime pump. After use, clean tip and replace cap. (Patient not taking: Reported on 08/16/2023) fluticasone propion-salmeteroL (Wixela Inhub) 100-50 mcg/dose diskus inhaler Inhale 1 puff in the morning and at bedtime. Rinse mouth with water after use to reduce aftertaste and incidence of candidiasis. Do not swallow. (Patient not taking: Reported on 08/16/2023) ibuprofen 200 mg tablet magnesium 250 mg tablet meclizine (Antivert) 25 mg tablet Take 1 tablet (25 mg) by mouth if needed in the morning, at noon,and at bedtime for dizziness. (Patient not taking: Reported on 08/16/2023) melatonin 0.5 mg tablet split tablet multivit with minerals/lutein (MULTIVITAMIN 50 PLUS ORAL) omega 0-mzs-amf-fish oil 1,000 mg (120 mg-180 mg) capsule polyvinyl alcohol-povidon,PF, (Refresh Classic, PF,) 1.4-0.6 % eye drops in a dropperette zoledronic acid/mannitol-water (RECLAST IV) Infuse into a venous catheter. Objective Base Eye Exam Visual Acuity (Snellen - Linear) Right Left Dist cc 20/20 20/25 -1 Correction: Glasses Tonometry (I Care (rebound tonometry), 11:03 AM) Right Left Pressure 25 25 Tonometry #2 (I Care (rebound tonometry), 11:38 AM) Right Left Pressure 23 23 Tonometry Comments T2 is post-dilation Pupils Pupils Dark Light Shape React Right PERRL 4 3 Round Brisk Left PERRL 4 3 Round Brisk Visual Adkins Left Right Full Full Extraocular Movement Right Left Full, Ortho Full, Ortho Neuro/Psych Oriented x3: Yes Mood/Affect: Normal Dilation Both eyes: 1.0% Mydriacyl, 2.5% Phenylephrine, 0.5% Proparacaine @ 11:03 AM Slit Lamp and Fundus Exam External Exam Right Left External Normal Normal Slit Lamp Exam Right Left Lids/Lashes Normal Normal Conjunctiva/Sclera White and quiet White and quiet Cornea Central polygonal stromal opacities Central polygonal stromal opacities Anterior Chamber Deep and quiet Deep and quiet Iris Round and reactive Round and reactive Lens PCIOL PCIOL Anterior Vitreous Posterior vitreous detachment Posterior vitreous detachment Fundus Exam Right Left Disc Normal Normal C/D Ratio 0.35 0.35 Macula small flat nevus temporal mild ERM Vessels Normal Normal Periphery cobblestones cobblestones Assessment/Plan Problem List Items Addressed This Visit Eye/Vision problems Macular pucker, left eye - Primary -03/01/22: new to Dr. Alexander. Moved from [place] to [place]. Hx of macular pucker left eye (OS). Previously followed by Dr. Coon in [place] -mild epiretinal membrane (ERM) without traction, observe 01/2023: Vision is stable both eyes (OU) Mac OCT: stable - OD is normal, OS mild epiretinal membrane (ERM)/pseudohole and hint of subretinalfluid (SRF) last year has improved Amsler grid sent for home monitoring - call if any change in vision Follow up: 6-9 months for iop, dfe, mac oct both eyes (OU) ---patient will be traveling for moths starting in August, so will recheck eyes prior to departure. 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, both eyes Clear and well-centered both eyes (OU) Good [...] Clear and well-centered - happy with vision PVD (posterior vitreous detachment), both eyes Longstanding and stable both eyes (OU)/yearly DFE Central cloudy dystrophy of Kang Saw MORENITA 2022 No impact on vision - Monitor Dry eye syndrome of both eyes Frequent PFATs throughout the day Follow Up Appointment Requests Future Orders Schedule follow-up for Ophthalmology Follow Up Appointment Request Follow up providers: (iop, dfe, mac oct and check pachs) 02/25/2024 (Approximate) Scheduling Instructions: Please call [phone] to schedule Questions: Follow up providers: Comment - iop, dfe, mac oct and check pachs Reason for Follow Up: documented in this encounter Miscellaneous Notes * Assessment & Plan Note - Kellie Bowser, OD - 08/25/2023 1:06 PM EDTAssociated Problem(s): Dry eye syndrome of both eyes Frequent PFATs throughout the day * Assessment & Plan Note - Kellie Bowser, OD - 08/25/2023 1:06 PM EDTAssociated Problem(s): Central cloudy dystrophy of Kang Saw MORENITA 2022 No impact on vision - Monitor * Assessment & Plan Note - Kellie Bowser, OD - 08/25/2023 1:06 PM EDTAssociated Problem(s): PVD (posterior vitreous detachment), both eyes Longstanding and stable both eyes (OU)/yearly DFE * Assessment & Plan Note - Kellie Bowser, OD - 08/25/2023 1:06 PM EDTAssociated Problem(s): Pseudophakia, both eyes Clear and well-centered both eyes (OU) Good [...] Clear and well-centered - happy with vision * Assessment & Plan Note - Kellie Bowser, OD - 08/25/2023 1:05 PM EDTAssociated Problem(s): Macular pucker, left eye -03/01/22: new to Dr. Alexander. Moved from [place] to [place]. Hx of macular pucker left eye (OS). Previously followed by Dr. Coon in [place] -mild epiretinal membrane (ERM) without traction, observe 01/2023: Vision is stable both eyes (OU) Mac OCT: stable - OD is normal, OS mild epiretinal membrane (ERM)/pseudohole and hint of subretinalfluid (SRF) last year has improved Amsler grid sent for home monitoring - call if any change in vision Follow up: 6-9 months for iop, dfe, mac oct both eyes (OU) ---patient will be traveling for moths starting in August, so will recheck eyes prior to departure. 07/2023: Vision and mac oct are stable both eyes (OU) Continue to monitor vision and amsler grid for changes Follow up; 6 months iop, dfe, mac oct documented in this encounter Plan of Treatment Upcoming Encounters Date Type Department Care Team (Late st Contact Info) Description 01/04/2024 11:20 AM EDT Procedure Visit [facility] [address] [facility] [address] [place] [address] 9 [place] [address] Katie Jones AUD 01/06/2024 2:00 PM EDT Appointment [facility] [address] [place] [address] 01/09/2024 2:00 PM EDT Office Visit [facility] [address] [facility] [address] [place] 19th [address] [place] [address] Radha Coker MD [address] [place] [address] 01/10/2024 8:30 AM EDT Office Visit [facility] [address] [place] [address] Style, Sydnee Ndiaye, [address] [facility] [place] [address] 01/11/2024 10:00 AM EDT Office Visit [facility] - ENT & Facial Plastic Surgery [address] [facility] [address] [place] [address] Kat Rico PA [address] [place] [address] 01/20/2024 11:45 AM EDT Clinical Support [facility] [address] [place] [address] Maria Eugenia Lucero, ORA [address] [place] [address] 01/30/2024 8:40 AM EST Office Visit [facility] [address] [facility] [place] 15th [address] [place] [address] Jose Monique MD [address] [facility] [place] 15th [address], [address] [place] [address] 02/27/2024 12:50 PM EST Office Visit [facility] [address] [place] [phone] Kellie Bowser, OD [address] [facility] [place] [address] 06/19/2024 11:30 AM EDT Appointment [place] [id number] [address] 06/19/2024 1:00 PM EDT Appointment [place] [address] [address] 08/21/2024 1:40 PM EDT Office Visit [facility] at [address] [place] [address] 3rd [place] [address] Satya Wright PA [address] [facility] 3rd [place] [address] 09/05/2024 10:30 AM EDT Office Visit [facility] [address] [place] [address] Tatiana Dominguez, KASH [address] [place] [address] Scheduled Orders Name Type Priority Associated Diagnoses Orde r Schedule Cirrus OCT, Macula - OU - Both Eyes Ophthalmology Routine Macular pucker, left eye Expected: 02/25/2024, Expires: 02/24/2025 documented as of this encounter Procedures Procedure Name Priority Date/Time Associated Diagnosis Comments CIRRUS OCT, MACULA - OU - BOTH EYES Routine 08/25/2023 1:02 PM EDT Macular pucker, left eye documented in this encounter Results * Cirrus OCT, Macula - OU [...] Bowser OD OPHTH TOMOGRAPHY CONTINUUM OPH PACS documented in this encounter Visit Diagnoses Diagnosis Macular pucker, left eye- Primary Macular puckering of retina 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, both eyes Lens replaced by other means PVD (posterior vitreous detachment), both eyes Central cloudy dystrophy of Kang Dry eye syndrome of both eyes documented in this encounter Additional Health Concerns Assessment Noted Time PHQ-9 Depression Total Score: 0 03/31/19 24 3:16 PM EST A fall risk assessment has been complete d for the patient 08/16/2023 4:01 PM EDT documented as of this encounter Care Teams Staple Cutter Relationship Specialty Start Date End Date Sydnee Ross DO [address] [facility] - [place] [address] PCP - General Family Medicine 01/17/23 documented as of this encounter
--- OUTSIDE RECORDS SUMMARY | 2023-11-14 01:01 | XMS_ITS | Encounter Summary ---
Author Organization [facility] Address [address] [place] [address], [place] [address] Phone Care Team Providers Care Human Resources Recruiter Name Role Phone Sydnee Ross DO Primary Care Provider [phone] Reason for Visit * Reason Onset Date Comments Nurse Visit 09/07/2023 Encounter Details Date Type Department Care Team (Late st Contact Info) Description 09/07/2023 Telephone [facility] - [facility] Care [address] [place] [address] Sydnee Ross DO [address] [facility] [place] [address] Nurse Visit Social History Tobacco Use Types Packs/Day Years Used Date Smoking Tobacco: Never Smokeless Tobacco: Never Comments:My parents were smo kers-I lived with passive smoke Alcohol Use Standard Drinks/Week Comments Not Currently 0 (1 standard drink = 0.6 oz pur e alcohol) 1/2 glass of wine nightly [facility] Utilities Answer Date Recorded In the past 12 months has [email or web address] electric, gas, oil, or water company threatened [...] 03/28/2023 How often do you attend chur or christianity services? More than 4 times per year 03/28/2023 Do you belong to any clubs o r organizations such as congregation groups, unions, fraternal or athletic groups, or [...] Recorded Patient Health Questionnaire-2 Score 0 09/13/2023 [facility] of Occupat ional Health - Occupational Stress [...] place to sleep or slept in a fci (including now)? No 03/28/2023 Sex and Gender Information Value Date Recorded Sex Assigned at Choose not to disclose 06/2023 9:41 PM EDT Gender Identity Female 01/17/2022 5:45 PM EDT Sexual Orientation Choose not to disclose 2023 9:41 PM EDT Job Start Date Occupation Industry Not on file Not on file Not on file documented as of this encounter Miscellaneous Notes * Telephone Encounter - Adeline Trejo - 09/07/2023 9:13 AM EDT Patient is calling to request an visit to get ears unclogged Please advise documented in this encounter Plan of Treatment Upcoming Encounters Date Type Department Care Team (Late st Contact Info) Description 01/04/2024 11:20 AM EDT Procedure Visit [facility] [address] [facility] [place] Floor 9 [place] [address] Jones KatieLISA Johnson 01/06/2024 2:00 PM EDT Appointment [facility] [address] [place] [address] 01/09/2024 2:00 PM EDT Office Visit [facility] [address] [facility] [place] 19th Floor [address] [place] [address] Radha Coker MD [address] [place] [address] 01/10/2024 8:30 AM EDT Office Visit [facility] [address] [place] [address] Vandana, Sydnee Ndiaye DO [address] [facility] [place] [address] 01/11/2024 10:00 AM EDT Office Visit [facility] - ENT & Facial Plastic Surgery [address] [facility] [address] [place] [address] Kat Rico, PATTIE [address] [place] [address] 01/20/2024 11:45 AM EDT Clinical Support [facility] [address] [place] [address] Maria Eugenia Lucero, ORA [address] [place] [address] 01/30/2024 8:40 AM EST Office Visit [facility] [address] [facility] [place] 15th Floor [address] [place] [address] Jose Monique MD [address] [place] 15th Floor, [address] [place] [address] 02/27/2024 12:50 PM EST Office Visit [facility] [address] [place] [address] Kellie Bowser, OD [address] [facility] [place] [address] 06/19/2024 11:30 AM EDT Appointment [place] [address] [facility] [address] [place] [address] 06/19/2024 1:00 PM EDT Appointment [place] [address] [facility] [address] [place] [address] 08/21/2024 1:40 PM EDT Office Visit [facility] at [address] [place] [address] [address] 3rd [place] [address] Satya Wright PA [address] [facility] 3rd [place] [address] 09/05/2024 10:30 AM EDT Office Visit [facility] [address] [place] [address] Tatiana Dominguez, INTERNAL CARVER [address] [place] [address] documented as of this encounter Visit Diagnoses Not on filedocumented in this encounter Additional Health Concerns Assessment Noted Time PHQ-9 Depression Total Score: 0 03/31/19 24 3:16 PM EST A fall risk assessment has been complete d for the patient 09/06/2023 2:12 PM EDT documented as of this encounter Care Teams Human Resources Recruiter Relationship Specialty Start Date End Date Vandana, Sydnee Ndiaye DO [address] [facility] [place] [place] [address] PCP - General Family Medicine 01/17/23 documented as of this encounter
--- OUTSIDE RECORDS SUMMARY | 2023-11-14 01:01 | XMS_ITS | Encounter Summary ---
Author Organization [facility] Address [address] [place] [address], [place] [address] Phone Care Team Providers Care Engine House Helper Name Role Phone Style, Sydnee Ndiaye DO Primary Care Provider [phone] Encounter Details Date Type Department Care Team (Late st Contact Info) Description 08/10/2023 11:20 AM EDT Anesthesia Event [facility] [address] [place] [address] Tiburcio Wise MD [address] [id number] Monserrat Ashley PAA [address] [facility], [place] [address] Anesthesia Record Procedure Summary Procedure Name Responsible Anesthesiologist Anesthesia Start Time Anesthesia Stop Time ENDOSCOPIC ULTRASOUND Tiburcio Wise MD 08/10/23 1120 08/10/23 1202 Events Date Time Event Comment 08/10/2023 1025 1120 An Start 1120 An Start Data 1120 In Room 1125 Start Auxiliary O2 1129 An Induction The patient was reevaluated immediately before the induction of general anesthesia or the initiation of spinal, epidural, regional, or MAC anesthesia. 1129 Anesthesia Ready 1158 Stop Auxiliary O2 1158 Out of Room 1158 an stop data 1202 Handoff to Receiving I compl eted my handoff to the receiving clinician during which we: 1. Identified the patient 2. Identified the responsible provider 3. Reviewed the pertinent medical history 4. Discussed the surgical course 5. Reviewed intra-op anesthesia management and issues during anesthesia 6. Set expectations for post-procedure period 7. Allowed opportunity for questions and acknowledgement of understanding. 1202 An Stop Meds Name Total lidocaine (Xylocaine) injection 2 % 100 mg propofol (Diprivan) injection 10 mg/mL 5 30 mg lactated Ringer's infusion 0 mL * Agents No agents on file. * Blood No blood administrations on file. Lines, Drains, and Airways Type Details Placement Removal Wound Neck; Left, Posterior 10/25/22 0935 by Peripheral IV Placement Date: 07/26 08/18; Placement Time: 1003; Catheter Size: 22 G; Orientation: Anterior, Right; Location: Forearm; Site Prep: Chlorhexidine; Local Anesth: None; Technique: Anatomical landmarks; Inserted by: lillian; Insertion Attempts: 1; Difficult Venous Access? No; Patient Tolerance: Tolerated well; Removal Date: 08/10/23; Removal Time: 1211; Removal Reason: No longer clinically indicated 08/10/23 1003 by Santiago Toro 08/10/23 1211 by Froylan Rogel documented in this encounter Social History Tobacco Use Types Packs/Day Years Used Date Smoking Tobacco: Never Smokeless Tobacco: Never Comments:My parents were smo kers-I lived with passive smoke from childhood Alcohol Use Standard Drinks/Week Comments Yes 2 (1 standard drink = 0.6 oz pur e alcohol) 4 per week average [facility] Utilities Answer Date Recorded In the past 12 months has e [employer], gas, oil, or water [employer] threatened to shut off services in your [...] often do you attend chur ch or baptism services? More than 4 times per year [...] Recorded Patient Health Questionnaire-2 Score 0 07/22/2023 [facility] Questionnaire Answer Date [...] place to sleep or slept in a nursing home (including now)? No 03/28/2023 Sex and Gender Information Value Date Recorded Sex Assigned at Choose not to disclose 06/2023 9:41 PM EDT Gender Identity Female 01/17/2022 5:45 PM EDT Sexual Orientation Choose not to disclose 2023 9:41 PM EDT Job Start Date Occupation Industry Not on file Not on file Not on file documented as of this encounter OR Notes * Anesthesia Postprocedure Evaluation - Tiburcio Wise MD - 08/10/2023 12:37 PM EDT Patient': Gianna Infante Procedure Summary Date: 08/10/23 Room / Location: [facility] Anesthesia Start: 1120 Anesthesia Stop: 1202 Procedure: ENDOSCOPIC ULTRASOUND Diagnosis: 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 Anesthesia Post Evaluation Patient location during evaluation: PACU Patient participation: complete - patient participated Level of consciousness: awake and alert Pain score: 0 Pain management: adequate Airway patency: patent Cardiovascular status: stable Respiratory status: spontaneous ventilation Hydration status: euvolemic Comments: Patient evaluated at bedside. Vital signs stable. Pain control adequate. No nausea/vomiting. No anesthetic complications noted. There were no known notable events for this encounter. * Anesthesia Preprocedure Evaluation - Tiburcio Wise MD - 08/09/2023 2:58 PM EDT Images from the original note were not included. Patient: Gianna Infante Procedure Information Date/Time: 08/10/23 1100 Scheduled providers: Todd Chairez MD; Tiburcio Wise MD; Umesh Garcia Procedure: ENDOSCOPIC ULTRASOUND Location: [facility] Relevant clinical history: Ms. Infante is a 77 yo female with a past medical history of arthritis, osteoporosis, memory deficit, HTN, anxiety, and vertigo. She presents for endoscopic ultrasound. Patient denies chest pain, SOB, anesthetic complications. METs > 4 Vitals: Visit Vitals BP 177/82 Pulse 60 Temp (!) 36.3 ??C (97.3 ??F) (Temporal) Resp 16 Ht 1.778 m (5' 10) Wt 68 kg (150 lb) SpO2 100% BMI 21.52 kg/m?? OB Status Postmenopausal Smoking Status Never BSA 1.83 m?? Home meds: (Not in a hospital admission) Inpatient/active meds: Current Outpatient Medications: ascorbic vjuw-lfpqveqq-cgn (Emergen-C) 1,000 mg powder effervescent in packet, , Disp: , Rfl: atorvastatin (Lipitor) 40 mg tablet, TAKE 1 TABLET BY MOUTH EVERY DAY, Disp: 90 tablet, Rfl: 3 clotrimazole (Lotrimin) 1 % cream, , Disp: , Rfl: ibuprofen 200 mg tablet, , Disp: , Rfl: meclizine (Antivert) 25 mg tablet, Take 1 tablet (25 mg) by mouth if needed in the morning, at noon, and at bedtime for dizziness., Disp: 30 tablet, Rfl: 0 melatonin 0.5 mg tablet split tablet, , Disp: , Rfl: multivit with minerals/lutein (MULTIVITAMIN 50 PLUS ORAL), , Disp: , Rfl: omega 2-lxn-ijr-fish oil 1,000 mg (120 mg-180 mg) capsule, , Disp: , Rfl: ammonium lactate (Amlactin) 12 % cream, Apply topically if needed in the morning and at bedtime fordry skin., Disp: 340 g, Rfl: 2 EPINEPHrine (Epipen) 0.3 mg/0.3 mL injection syringe, Inject 0.3 mL (0.3 mg) as directed if needed for anaphylaxis. Call 911 after use., Disp: 1 each, Rfl: 0 fluticasone (Flonase) 50 mcg/actuation nasal spray, Administer 2 sprays into each nostril once daily. Shake gently. Before first use, prime pump. After use, clean tip and replace cap., Disp: 16 g, Rfl: 11 fluticasone propion-salmeteroL (Wixela Inhub) 100-50 mcg/dose diskus inhaler, Inhale 1 puff in the morning and at bedtime. Rinse mouth with water after use to reduce aftertaste and incidence of candidiasis. Do not swallow., Disp: 60 each, Rfl: 11 magnesium 250 mg tablet, , Disp: , Rfl: polyvinyl alcohol-povidon,PF, (Refresh Classic, PF,) 1.4-0.6 % eye drops in a dropperette, , Disp: , Rfl: zoledronic acid/mannitol-water (RECLAST IV), Infuse into a venous catheter., Disp: , Rfl: No current facility-administered medications for this encounter. Allergies: Allergies Allergen Reactions Bee Venom Protein (Honey Bee) Anaphylaxis Fluoxetine Other reaction(s): Other (See Comments), Other (See Comments) paranoid Paranoid Paranoid Estrogens, Conjugated Hymenoptera Allergenic Extract Serotonin Hallucinations Wasp Venom Trazodone Anxiety Social history: Social History Socioeconomic History Marital status: Single Tobacco Use Smoking status: Never Smokeless tobacco: Never Tobacco comments: My parents were smokers-I lived with passive smoke from childhood Vaping Use Vaping status: Never Used Substance and Sexual Activity Alcohol use: Yes Alcohol/week: 2.0 standard drinks of alcohol Types: 2 Glasses of wine per week Comment: 4 per week average Drug use: Never Sexual activity: Not Currently Partners: Male control/protection: Post-menopausal Past surgical history: Past Surgical History: Procedure Laterality Date ADENOIDECTOMY 1951 CATARACT EXTRACTION Bilateral 2020 CE-IOL OU JOINT REPLACEMENT 12/2018 & 05/2021 knee TONSILLECTOMY 1951 TOTAL KNEE ARTHROPLASTY Bilateral 2017 and 2021 VASCULAR SURGERY 1979?-Varicose vein stripping in both legs Recent labs: Lab Results Component Value Date WBC 4.6 08/09/2023 HGB 14.1 08/09/2023 HCT 43.1 (H) 08/09/2023 MCV 97.1 (H) 08/09/2023 PLT 260 08/09/2023 Lab Results Component Value Date CALCIUM 9.3 08/09/2023 NA 141 08/09/2023 K 4.2 08/09/2023 CO2 25 08/09/2023 CL 105 08/09/2023 BUN 12 08/09/2023 CREATININE 0.55 (L) 08/09/2023 Lab Results Component Value Date INR 0.99 03/11/2022 Lab Results Component Value Date AST 33 08/09/2023 ALT 39 08/09/2023 ALKPHOS 40 08/09/2023 Other Relevant clinical labs (if needed): Recent imaging: === 07/13/23 === XR RIBS 3 VIEWS BILATERAL - Impression - No rib fracture. No acute abnormality. The images were reviewed and interpreted by Sudhir Damon MD. -- No results found for this or any previous visit (from the past 4464 hour(s)). -- -- Echo Transthoracic (TTE) Complete Result Date: 04/04/2023 Left Ventricle: Normal size. Borderline mildly increased wall thickness. Normal systolic function with a visually estimated EF of 55 - 60%. Normal diastolic function. Right Ventricle: Normal size. Normal systolic function. TAPSE is 2.2 cm. Left Atrium: Normal size. Left atrium volume index is 24.5 mL/m2. Aortic Valve: Tricuspid. Findings consistent with mild leaflet sclerosis. No stenosis. -- Other relevant studies (if needed): Preop clearances (if needed): Previous anesthestic info and/or complications: Implanted devices (if needed): Relevant Problems Cardiac (+) Hypertension (+) Other hyperlipidemia Pulmonary (+) Dyspnea on exertion GI (+) GERD (gastroesophageal reflux disease) Neuro/Psych (+) Chronic neck pain Clinical information reviewed: Tobacco Allergies Meds Med Hx Surg Hx Fam Hx Soc Hx Physical Exam Airway Mallampati: II TM distance: >3 FB Neck ROM: full Cardiovascular - normal exam Rhythm: regular Dental (+) implants Neurological - normal exam Mental Status: alert Musculoskeletal Pulmonary - normal exam Abdominal Anesthesia Plan ASA 2 MAC The patient is not a current smoker. Education provided regarding risk of obstructive sleep apnea. NPO Status: >2hr/8hr clear liquids/solids intravenous induction Anesthetic plan and risks discussed with patient. Additional Equipment Requests Laboratory/POCT as directed by Physician during procedure for patient care; tests may include pH, pCO2, pO2, Na+, K+, Glucose, Cl-, Ca++, Lactate, Hct, tHb, O2Hb, COHb, MetHb, ACT, TEG, HPylori, and Urine documented in this encounter Miscellaneous Notes * Addendum Note - Tiburcio Wise MD - 08/10/2023 12:38 PM EDT Addendum created 08/10/23 1238 by Tiburcio Wise MD Clinical Note Signed documented in this encounter Plan of Treatment Upcoming Encounters Date Type Department Care Team (Late st Contact Info) Description 01/04/2024 11:20 AM EDT Procedure Visit [facility] [address] [facility] [place] Floor 9 [place] [address] Katie Jones AUD 01/06/2024 2:00 PM EDT Appointment [facility] [address] [place] [address] 01/09/2024 2:00 PM EDT Office Visit [facility] [address] [facility] [place] 19th Floor [address] [place] [address] Radha Coker MD [address] [place] [address] 01/10/2024 8:30 AM EDT Office Visit [facility] - Primary Care [address] [place] [address] Style, Sydnee Ndiaye, [address] [facility] [place] [address] 01/11/2024 10:00 AM EDT Office Visit [facility] - ENT & Facial Plastic Surgery [address] [place] [address] Kat Rico, PATTIE [address] [place] [address] 01/20/2024 11:45 AM EDT Clinical Support [facility] [address] [place] [address] Maria Eugenia Lucero, [facility] [place] [address] 01/30/2024 8:40 AM EST Office Visit [facility] [address] [facility] [place] 15th Floor [address] [place] [address] Jose Monique MD 550 [facility] [place] 15th Floor, [address] [place] [address] 02/27/2024 12:50 PM EST Office Visit [facility] [address] [place] [phone] Kellie Bowser, OD [address], [address] [facility] [place] [address] 06/19/2024 11:30 AM EDT Appointment [place] [address] [facility] [address] [place] [address] 06/19/2024 1:00 PM EDT Appointment [place] [address] [facility] [address] [place] [address] 08/21/2024 1:40 PM EDT Office Visit [facility] at [address] [facility] 3rd [place] [address] Satya Wright PA [address] 3rd [place] [address] 09/05/2024 10:30 AM EDT Office Visit [facility] [address] [place] [address] Tatiana Dominguez, KASH [address] [address] documented as of this encounter Visit Diagnoses Not on filedocumented in this encounter Administered Medications Inactive Administered Medications - up to 3 most recent administrations Medication Order MAR Action Action Date Dose Rate Site lactated Ringer's infusion intravenous, Continuous PRN, Starting on Tue08/10/23 at 1119, Anesthesia Intraprocedure New Bag 08/10/2023 11:19 AM EDT lidocaine (Xylocaine) 20 mg/mL (2 %) injection intravenous, As needed, Starting on Tue08/10/23 at 1129, Anesthesia Intraprocedure Given 08/10/2023 11:29 AM EDT 100 mg propofol (Diprivan) intravenous emulsion intravenous, As needed, Starting on Tue08/10/23 at 1129, Anesthesia Intraprocedure Given 08/10/2023 11:47 AM EDT 130 mg Given 08/10/2023 11:37 AM EDT 200 mg Given 08/10/2023 11:32 AM EDT 100 mg documented in this encounter Additional Health Concerns Assessment Noted Time PHQ-9 Depression Total Score: 0 03/31/19 3:16 PM EST A fall risk assessment has been complete d for the patient 07/22/2023 11:36 AM EDT documented as of this encounter Care Teams Engine House Helper Relationship Specialty Start Date End Date Style, Sydnee Ndiaye DO [address] [facility] 110 [facility] - Primary Care [place], [place] [id number] PCP - General Family Medicine 01/17/23 documented as of this encounter
--- OUTSIDE RECORDS SUMMARY | 2023-11-14 01:01 | XMS_ITS | Encounter Summary ---
Author Organization [facility] Address [address] [facility] , [place], [place] [address] Phone Care Team Providers Care Wave Soldering Machine Operator Name Role Phone Style, Sydnee Ndiaye DO Primary Care Provider [phone] Encounter Details Date Type Department Care Team (Latest Contact Info) Description 10/06/2023 11:00 AM EDT Clinical Support [facility] [address] [place] [address] Keyla Mccullough, PT, DPT [address] [facility] [address] [facility] [place] [address] Imbalance (Primary Dx) Social History Tobacco Use Types Packs/Day Years Used Date Smoking Tobacco: Never Smokeless Tobacco: Never Comments:My parents were smo kers-I lived with passive smoke from childhood Alcohol Use Standard Drinks/Week Comments Yes 2 (1 standard drink = 0.6 oz pur e alcohol) 1/2 glass of wine nightly [facility] Utilities Answer Date Recorded In the past 12 months has [employer], gas, oil, or water [employer] threatened to shut off services in your [...] How often do you attend chur or synagogue services? More than 4 times per year [...] Recorded Patient Health Questionnaire-2 Score 0 09/13/2023 [facility] - Occupational Stress [...] place to sleep or slept in a penitentiary (including now)? No 03/28/2023 Sex and Gender Information Value Date Recorded Sex Assigned at Choose not to disclose 06/2023 9:41 PM EDT Gender Identity Female 01/17/2022 5:45 PM EDT Sexual Orientation Choose not to disclose 2023 9:41 PM EDT Job Start Date Occupation Industry Not on file Not on file Not on file documented as of this encounter Progress Notes * Jerod Church, PT - 10/06/2023 11:00 AM EDT Physical Therapy Discharge Note Patient Name: Gianna Infante Today's Date: 10/06/2023 Subjective Reports decreased dizziness and motion sensitivity in the supermarket. Leaving for [place] in 2 weeks. Continues to perform exercises. Feels ready for discharge at this time. Objective Balance confidence (ABC): 79% FGA is 24/30 (fall risk is <23/30). Difficulty with tandem walking, narrow MOOKIE walking, gait with eyes closed, and stepping over obstacle Mod CTSIB -- 120/120 on modified position (wide MOOKIE). Increased sway during condition 4 Treatment/HEP Reviewed habituation HEP Up and down head turns, 5 reps, 2 times -- change to busy background - Trunk bends, 5 reps, 2 times - 360 turn to L, 1 time, 2 sets - VOR Cancellation, 5 reps, 2 sets Reviewed balance/gait HEP - Walking with horizontal head turns, 2x20' - Walking with vertical head turns, 2x20' - Walking with eyes closed, 10 steps eyes open, 10 steps eyes closed, 2x20' - Sensory integration activities in corner with chair (eyes open/closed firm/ eyes open/closed foam, 20s and 20s) Assessment Patient tolerated treatment well and was able to progress her HEP. She reports subjective improvement in balance and dizziness. Continues to report baseline dizziness of 5/10, but does report decreased motion sensitivity in grocery store and when performing exercises. Reports return to baseline dizziness quickly (within 10s) when performing motion sensitivity habituation activities. Has made goodprogress and met functional goals. Improvement of FGA to 24/30 and ABC to 79%. Continues to have difficulty with sensory integration activities, eyes closed walking, and tandem walking. Reinforced balance/gait and habituation HEP. Demo's independence with HEP. Discharge skilled vestibular PT. Resolved LTG - Low risk for fall based on FGA at normal speed (Met) Start: 07/27/23 Expected End: 10/27/23 Resolved: 10/06/23 LTG - Normal mCTSIB (Met) Start: 07/27/23 Expected End: 10/27/23 Resolved: 10/06/23 LTG - ABC >80% (Not Met) Start: 07/27/23 Expected End: 10/27/23 Resolved: 10/06/23 Plan Discontinue PT Harjit Church, PT, DPT Keyla Mccullough, PT, DPT PT#[id number] Referring Provider: Sydnee Ross DO Treatment Session: 55 min [id number] X 4 Time in: 1100 Time out: 1155 Associated attestation - Keyla Mccullough, PT, DPT - 10/06/2023 1:25 PM EDT I was available as needed during the session and agree with the plan of care. Keyla Mccullough, PT, DPT PT#[id number] documented in this encounter Plan of Treatment Upcoming Encounters Date Type Department Care Team (Late st Contact Info) Description 01/04/2024 11:20 AM EDT Procedure Visit [facility] 550 [facility] [place] Floor 9 [place] [address] Katie Jones AUD 01/06/2024 2:00 PM EDT Appointment [facility] [address] [place] [address] 01/09/2024 2:00 PM EDT Office Visit [facility] [address] [facility] [place] 19th Floor [address] [place] [address] Radha Coker MD [address] [place] [address] 01/10/2024 8:30 AM EDT Office Visit [facility] [address] [place] [address] Vandana, Sydnee Ndiaye DO [address] [facility] [place] [address] 01/11/2024 10:00 AM EDT Office Visit [facility] - ENT & Facial Plastic Surgery [address] [facility] [address] [place] [address] Kat Rico, PATTIE [address] [place] [phone] 01/20/2024 11:45 AM EDT Clinical Support [facility] at [address] [place] [address] Maria Eugenia Lucero, ORA [address] [place] [address] 01/30/2024 8:40 AM EST Office Visit [facility] 550 [facility] [place] 15th Floor [address] [place] [address] Jose Monique MD 550 [facility] [place] 15th Floor, [address] [place] [address] 02/27/2024 12:50 PM EST Office Visit [address] [place] [phone] Kellie Bowser, OD [address] [facility] [address] 4, [address] [facility] [place] [address] 06/19/2024 11:30 AM EDT Appointment [place] [address] [address] 06/19/2024 1:00 PM EDT Appointment [place] [address] [address] 08/21/2024 1:40 PM EDT Office Visit [facility] at [address] [place] [address] 3rd Floor [place] [phone] Satya Wright PA [address] [place] [address] 3rd Floor [place] [phone] 09/05/2024 10:30 AM EDT Office Visit [facility] [address] [place] [address] Tatiana Dominguez, KASH [address] [address] documented as of this encounter Visit Diagnoses Diagnosis Imbalance- Primary Abnormality of gait documented in this encounter Additional Health Concerns Assessment Noted Time PHQ-9 Depression Total Score: 0 03/31/19 24 3:16 PM EST A fall risk assessment has been complete d for the patient 09/13/2023 2:54 PM EDT documented as of this encounter Care Teams Wave Soldering Machine Operator Relationship Specialty Start Date End Date Style, Sydnee Ndiaye DO [address] [facility] - Primary Care [place], [place] [phone] PCP - General Family Medicine 01/17/23 documented as of this encounter
--- OUTSIDE RECORDS SUMMARY | 2023-11-14 01:01 | XMS_ITS | Encounter Summary ---
Author Organization [facility] Address [address] [facility] , [place], [place] [address] Phone Care Team Providers Care Cavalry Scout Name Role Phone Vandana, Sydnee Zelda Primary Care Provider [phone] Reason for Visit * Reason Comments Skin Check TBSE Encounter Details Date Type Department Care Team (Late st Contact Info) Description 08/16/2023 4:00 PM EDT Office Visit [facility] at [address] [place] [address] 3rd [place] [address] Frandy Negrete MD [address] [place] [address] [place] 3 [facility] AT [address] [place] [address] Neoplasm of skin (Primary Dx); Actinic keratosis; Stasis dermatitis of both legs; Androgenetic alopecia; Seborrheic keratosis Social History Tobacco Use Types Packs/Day Years Used Date Smoking Tobacco: Never Smokeless Tobacco: Never Tobacco Cessation:Counseling Given: No Comments:My parents were smokers-I lived with passive smoke from childhood Alcohol Use Standard Drinks/Week Comments Yes 2 (1 standard drink = 0.6 oz pur e alcohol) 4 per week average [facility] Utilities Answer Date Recorded In the past 12 months has e electric, gas, oil, or water company [...] How often do you attend chur or pentecostalism services? More than 4 times per year 03/28/2023 Do you belong to any clubs o r organizations such as amish groups, unions, fraternal or athletic groups, or [...] Recorded Patient Health Questionnaire-2 Score 0 08/16/2023 [facility] of Occupat ional Health - Occupational Stress [...] place to sleep or slept in a detention (including now)? No 03/28/2023 Sex and Gender [...] Sign Reading Time Taken Comments Blood Pressure 132/81 08/16/2023 3:58 PM EDT Pulse 61 08/16/2023 3:58 PM EDT Temperature - - Respiratory Rate - - Oxygen Saturation 98% 08/16/2023 3:58 PM EDT Inhaled Oxygen Concentration - - Weight 68 kg (150 lb) 08/16/2023 3:58 PM EDT Height 177.8 cm (5' 10) 08/16/2023 3:58 PM EDT Body Mass Index 21.52 08/16/2023 3:58 PM EDT documented in this encounter Patient Instructions * Patient Instructions* Sandra Allison - 08/16/2023 4:00 PM EDT [facility] Dermatology Wound Care Instructions-Biopsy After your biopsy, minimize activity of the affected area for the remainder of the day if possible.Minimize straining, strenuous activity, bending, and lifting as directed by your doctor. If you have discomfort, use Tylenol every 4-6 hours. Do not take aspirin, ibuprofen, or ibuprofen-like products for pain relief, they may cause increased bleeding. Minor swelling after surgery is expected. Use ice-packs 2-3 times a day for 10-15 minutes if it occurs. Keep the bandage applied in the Dermatology Clinic in place for 24 hours. The surgical site needs to be kept completely DRY during this time to optimize healing. You may begin showering or bathing after normally 24 hours after your biopsy. It is okay for water and/or soap and/or shampoo to run over the wound. Dry carefully and re-apply a bandage as below. After cleaning wound with soap and water, re-apply a thin layer of petroleum jelly to the biopsy site and cover with a bandage. Change the bandage once a day until the sutures are removed. For Shave Biopsy: cleaning wound with soap and water, re-apply a thin layer of petroleum jelly to the biopsy site and cover with a bandage. Change the bandage once a day until the skin begins to healover the site. If BLEEDING occurs, apply continuous gentle pressure with a clean, dry washcloth or gauze for 15 minutes. DO NOT check the site during these 15 minutes. IF there is still bleeding after that time repeat this step. If bleeding continues, call our office immediately. Redness and swelling after surgery is expected, especially surgery on the head. Bruising around theeyes is also common after surgery on the scalp or face. This does not require treatment and will resolve in 1-2 weeks. If the area should become very SORE or RED, if there is DRAINAGE, or if you havea FEVER, call our office immediately. If you have bleeding that will not stop, or are worried about infection, please call [facility] at [phone] and chose Option #2 to speak with a nurse. If it is after 5pm, or you have called the nurse line and have not heard back within 1 hour, call [phone] and ask for the [facility] Resident. Please be aware that if you have sutures placed and are required to return for suture removal, you will be scheduled to see a nurse/medical unit secretary for suture removal and WILL NOT be seen by your provider. documented in this encounter Progress Notes * Frandy Negrete MD - 08/16/2023 4:00 PM EDT Images from the original note were not included. Assessment/Plan Neoplasm of skin (2) Right Upper Arm - Posterior Lesion biopsy Type of biopsy: tangential Informed consent: discussed and consent obtained Anesthesia: the lesion was anesthetized in a standard fashion Local anesthetic: 2% lidocaine with epinephrine. Instrument used: DermaBlade Hemostasis achieved with: aluminum chloride Outcome: patient tolerated procedure well Post-procedure details: wound care instructions given Specimen 1 - Dermatopathology Exam Spot/Suspected skin cancer Clinical Description: History of BCC with new erythematous thin plaque Diff Dx: lesion: Rule out superficial BCC Malignancy suspicion: medium Percent removed: <90% Previous H/O Keratinocyte carcinoma: yes History of Melanoma: no Current Immunosuppression: no Left Upper Arm - Posterior Lesion biopsy Type of biopsy: tangential Informed consent: discussed and consent obtained Anesthesia: the lesion was anesthetized in a standard fashion Local anesthetic: 2% lidocaine with epinephrine. Instrument used: DermaBlade Hemostasis achieved with: aluminum chloride Outcome: patient tolerated procedure well Post-procedure details: wound care instructions given Specimen 2 - Dermatopathology Exam Spot/Suspected skin cancer Clinical Description: History of BCC with new erythematous thin plaque Diff Dx: lesion: Rule out superficial BCC Malignancy suspicion: medium Percent removed: <90% Previous H/O Keratinocyte carcinoma: yes History of Melanoma: no Current Immunosuppression: no Related Procedures Dermatology General Follow Up Appointment Request Follow up providers: Any KELVIN; Visit Mode: In-person; Reason for follow up: General Dermatology Actinic keratosis (5) Left Zygomatic Area; Right Parotid Area; Left Malar Cheek; Right Buccal Cheek; Right Forehead Destr of lesion - Left Malar Cheek, Left Zygomatic Area, Right Buccal Cheek, Right Forehead, Right Parotid Area Complexity: simple Destruction method: cryotherapy Informed consent: discussed and consent obtained Lesion destroyed using liquid nitrogen: Yes Region frozen until ice ball extended beyond lesion: Yes Cryotherapy cycles: 1 Outcome: patient tolerated procedure well with no complications Additional details: Post liquid nitrogen care discussed Related Procedures Dermatology General Follow Up Appointment Request Follow up providers: Any KELVIN; Visit Mode: In-person; Reason for follow up: General Dermatology Stasis dermatitis of both legs Recommend compression stockings and emollients. Related Procedures Dermatology General Follow Up Appointment Request Follow up providers: Any KELVIN; Visit Mode: In-person; Reason for follow up: General Dermatology Androgenetic alopecia Scalp Discussed options. Recommend topical minoxidil. Related Procedures Dermatology General Follow Up Appointment Request Follow up providers: Any KELVIN; Visit Mode: In-person; Reason for follow up: General Dermatology Seborrheic keratosis Reassured Subjective Gianna Infante is a 77 y.o. female who presents for the following: Skin Check (TBSE). Skin Cancer Screening HPI Ms. Infante has a history of BCC and AK presents for follow-up skin exam. Several lesions of concern: -R lateral and left lateral upper arm: lesions present for 6 months. No symptoms. -Left cheek: cluster of scaly lesions. No symptoms or changes. -R hairline: Hyperpigmented papules. No symptoms or changes Review of Systems Constitutional: Negative for chills, diaphoresis, fever and unexpected weight change. Skin: Negative. Objective Total-body skin exam including scalp, face, lips, ears, neck, chest, back, abdomen, upper extremities including hands, nails, genitalia, lower extremities, including nails with the following specificfindings: 1+ pitting edema and mild dyspigmentation and erythema Stuck on verrucous, pigmented papules, including lesions of concern along hairline Right Upper Arm - Posterior Erythematous thin plaque Left Upper Arm - Posterior Erythematous thin plaque Left Malar Cheek, Left Zygomatic Area, Right Buccal Cheek, Right Forehead, Right Parotid Area Erythematous scaly papules Scalp Mild recession of bitemporal hairline and decreased terminal hair density over frontal and vertex scalp. No erythema or scale. documented in this encounter Plan of Treatment Upcoming Encounters Date Type Department Care Team (Late st Contact Info) Description 01/04/2024 11:20 AM EDT Procedure Visit [facility] [address] [facility] Medical Office [place] Floor [address] [place] [address] Katie Jones AUD 01/06/2024 2:00 PM EDT Appointment [facility] [address] [place] [address] 01/09/2024 2:00 PM EDT Office Visit [facility] [address] [facility] Medical Office [place] 19th Floor [address] [place] [address] Radha Coker MD [address] [place] [address] 01/10/2024 8:30 AM EDT Office Visit [facility] [address] [place] [address] Style, Sydnee Ndiaye DO [address] [facility] [place] [address] 01/11/2024 10:00 AM EDT Office Visit [facility] Surgery [address] [facility] [address] [place] [address] Kat Rico, PATTIE [address] [place] [address] 01/20/2024 11:45 AM EDT Clinical Support [facility] [address] [place] [address] Maria Eugenia Lucero, ORA [address] [place] [address] 01/30/2024 8:40 AM EST Office Visit [facility] [address] [facility] Medical Office [place] 15th [address] [place] [address] Jose Monique MD [address] [facility] Office [place] 15th Floor, [address] [place] [address] 02/27/2024 12:50 PM EST Office Visit [facility] [address] [place] [phone] Kellie Bowser, OD [address] [facility] [place] [address] 06/19/2024 11:30 AM EDT Appointment [facility] [address] [facility] [address] [place] [address] 06/19/2024 1:00 PM EDT Appointment [place] [address] [facility] [address] [place] [address] 08/21/2024 1:40 PM EDT Office Visit [facility] at [address] [place] [address] 3rd [place] [address] Satya Wright PA [address] [facility] 3rd [place] [address] 09/05/2024 10:30 AM EDT Office Visit [facility] [address] [place] [address] Tatiana Dominguez, KASH [address] [place] [address] documented as of this encounter Procedures Procedure Name Priority Date/Time Associated Diagnosis Comments DESTRUCTION OF LESION Routine 08/16/2023 4:55 PM EDT Actinic keratosis SKIN / NAIL BIOPSY Routine 08/16/2023 4: 54 PM EDT Neoplasm of skin SKIN / NAIL BIOPSY Routine 08/16/2023 4: 54 PM EDT Neoplasm of skin DERMATOPATHOLOGY EXAM Routine 08/16/2023 4:54 PM EDT Neoplasm of skin documented in this encounter Results * Destr of lesion (08/16/2023 4:55 PM [...] * Lesion biopsy (08/16/2023 4:54 PM EDT) Frandy Magana MD - 08/16/2023 4:54 PM EDT Type [...] * Lesion biopsy (08/16/2023 4:54 PM EDT) Frandy Magana MD - 08/16/2023 4:54 PM EDT Type [...] 4:54 PM EDT) Case Report Dermatopathology ?Case: [id number] ? Authorizing Provider: ??Frandy Negrete MD ?Collected: ? 08/16/2023 1654 ? Ordering Location: ? [facility] at [address] ? Received: ?08/17/[address] ? Pathologist: ? Ren Rivas, ? Specimens: ?? A) - Other, Right Upper Arm - Posterior ? B) - Other, Left Upper Arm - Posterior ? 4 3:57 PM EDT [facility] Pathologic Diagnosis A. Skin, right upper arm, posterior (biopsy): Lichenoid actinic keratosis (see comment). B. Skin, left upper arm, posterior (biopsy): Actinic keratosis (see comment). 3:57 PM EDT [facility] Comment Multiple recut sections have been examined for Specimens A and B. 3:57 PM EDT [facility] Microscopic Description Microscopic examination of the specimen(s) was performed unless ? gross-only? is specified. 3:57 PM EDT [facility] Clinical Information A. [...] Biopsy Type: Shave Biopsy 3:57 PM EDT [facility] Gross Description Specimen A. is received [...] by Jeremy Fitzgerald Technologist 3:57 PM EDT [facility] Disclaimer For all special stai ns performed by [facility], including immunohistochemistry (IHC) and in-situ hybridization (JUICE [...] negativity on decalcified specimens. 3:57 PM EDT [facility] Skin Topography unknown [...] no Frandy Negrete MD LAB PATHOLOGY ORDERA KEEGAN [facility] [address] [place] [address] documented in this encounter Visit Diagnoses Diagnosis Neoplasm of skin- Primary Actinic keratosis Stasis dermatitis of both legs Androgenetic alopecia Seborrheic keratosis documented in this encounter Additional Health Concerns Assessment Noted Time PHQ-9 Depression Total Score: 0 03/31/19 3:16 PM EST A fall risk assessment has been complete d for the patient 08/16/2023 4:01 PM EDT documented as of this encounter Care Teams Cavalry Scout Relationship Specialty Start Date End Date Style, Sydnee Ndiaye DO [address] [facility] [address] [facility] [place] [address] PCP - General Family Medicine 01/17/23 documented as of this encounter
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
--- OUTSIDE RECORDS SUMMARY | 2023-11-14 01:01 | XMS_ITS | Encounter Summary ---
Author Organization [facility] Address [address] [facility] [address] [place], [place] [address] Phone Care Team Providers Care Sign Painter Apprentice Name Role Phone Style, Sydnee Ndiaye DO Primary Care Provider [phone] Encounter Details Date Type Department Care Team (Latest Contact Info) Description 08/18/2023 11:00 AM EDT Clinical Support [facility] [address] [place] [address] Keyla Mccullough, PT, DPT [address] [facility] [address] [facility] [place] [address] Imbalance (Primary Dx); Benign paroxysmal vertigo of right ear Social History Tobacco Use Types Packs/Day Years Used Date Smoking Tobacco: Never Smokeless Tobacco: Never Comments:My parents were smo kers-I lived with passive smoke from childhood Alcohol Use Standard Drinks/Week Comments Yes 2 (1 standard drink = 0.6 oz pur e alcohol) 4 per week average [facility] Utilities Answer Date Recorded In the past 12 months has [employer], gas, oil, or water [employer] threatened to shut off services in your [...] How often do you attend chur or mandaen services? More than 4 times per year 03/28/2023 Do you belong to any clubs o r organizations such as latter-day groups, unions, fraternal or athletic groups, or [...] Recorded Patient Health Questionnaire-2 Score 0 08/16/2023 [facility] - Occupational Stress [...] place to sleep or slept in a skilled nursing (including now)? No 03/28/2023 Sex and Gender [...] Progress Notes * Jerod [place], PT - 08/18/2023 11:00 AM EDT Physical Therapy Follow-up Note Patient Name: Gianna Infante Today's Date: 08/18/2023 Subjective Gianna reports that she feels her dizziness and balance is improving. She did not have any dizziness when getting out of the car today. Does report performing a self Kev maneuver at least once since last visit to attempt to treat dizziness. Objective Treatment/HEP Modified Motion Sensitivity Test Intensity 0-10 Duration <5s =0 Score = Intensity + Duration 0 = none 5-10s =1 10 = severe 11-20s =2 21-30s =3 >30s =4 MOVEMENT Baseline= 10 Intensity Duration Score 5x Horizontal Head Turns 0 0 0 5x Vertical Head Turns 1 3 4 5x Right Diagonal Head Turns 1.5 2 3.5 5x Left Diagonal Head Turns 1 2 3 5x Trunk Bends 2 4 6 5x Right Quarter Body Turns 2 3 5 5x Left Quarter Body Turns 1 2 3 1 x360 Degree Turn to Right 1 2 3 1 x360 Degree Turn to Left 1.5 4 5.5 5x VOR Cancellation 1 4 5 MSQ = Total Score x (# of Positions) / 14 MSQ = 27% 11-30 Moderate Introduced habituation HEP: - Up and down head turns, 5 reps, 2 times - Trunk bends, 3 reps, 2 times - 360 turn to L, 1 time, 2 sets - VOR Cancellation, 2 reps, 2 sets Performed and reviewed patient's HEP for sensory integration and dynamic balance: - standing on a firm surface with eyes open and eyes closed, 2x20 sec - standing on a compliant surface with eyes open and eyes closed, 2x30 sec in session -- 2x20s for home - gait with horizontal head turns every 3 steps, 4x20 feet - gait with vertical head turns every 3 steps, 4x20 feet - gait with alternating eyes open x 3 steps and eyes closed x 3 steps, 4x20 feet - Cues to keep feet wide throughout - Education provided about anatomy of vestibular system and canals -- when to perform self Kev maneuver. Recommending pt not perform Kev maneuver and to check with PT first if vertigo reappears. Assessment Patient tolerated treatment well and was able to progress her HEP. Education provided regarding theanatomy of the vestibular system, pathology of BPPV, and the various treatments. Recommending pt not perform self-Kev unless indicated, which was discussed during session. She demonstrates moderatemotion sensitivity based upon a score of 27% on mMST. Most provoking movements were the trunk bends, VOR cancellation, and L 360 turn. Added to habituation HEP and provided with handout. Skilled PT is still medically necessary for reaching goals. Plan Review MST HEP and progress as appropriate. Continue to progress dynamic gait HEP. Reassess ABC andother appropriate outcome measures. Harjit [place], PT, DPT Keyla Mccullough, PT, DPT PT#[id number] Referring provider: Sydnee Ross DO Treatment Session: 60 min NMR [id number] X 4 Time in: 1100 Time out: 1200 Associated attestation - Keyla Mccullough, PT, DPT - 08/18/2023 1:53 PM EDT I was available as needed during the session and agree with the plan of care. Keyla Mccullough, PT, DPT PT#[id number] documented in this encounter Plan of Treatment Upcoming Encounters Date Type Department Care Team (Late st Contact Info) Description 01/04/2024 11:20 AM EDT Procedure Visit [facility] [address] [facility] Medical Office [place] [address] [place] [address] Katie Jones AUD 01/06/2024 2:00 PM EDT Appointment [facility] [address], [place] [id number] 01/09/2024 2:00 PM EDT Office Visit [facility] [address] [facility] Medical Office [place] 19[address] [place] [address] Radha Coker MD [address] [place] [address] 01/10/2024 8:30 AM EDT Office Visit [facility] - Primary Care [address] [place] [address] Vandana, Sydnee Ndiaye DO [address] [facility] [place] [address] 01/11/2024 10:00 AM EDT Office Visit [facility] - ENT & Facial Plastic Surgery [address] [facility] [address] [place] [address] Kat Rico, PA [address] [place] [phone] 01/20/2024 11:45 AM EDT Clinical Support [facility] [address] [place] [address] Maria Eugenia Lucero LAC [address] [place] [address] 01/30/2024 8:40 AM EST Office Visit [facility] [address] [facility] [place] [address] [place] [address] Jose Monique MD [address] [facility] Medical Office [place] 15[address], [address] [place] [address] 02/27/2024 12:50 PM EST Office Visit [facility] [address] [facility] [address] 4 [address] [place] [address] Kellie Bowser, OD [address] [facility] [place] [address] 06/19/2024 11:30 AM EDT Appointment [place] [address] [address] 06/19/2024 1:00 PM EDT Appointment [place] [address] [address] 08/21/2024 1:40 PM EDT Office Visit [facility] [place] [id number] [facility] 3rd [place] [address] Satya Wright PA [address] [facility] [address] 3rd [place] [address] 09/05/2024 10:30 AM EDT Office Visit [facility] [address] [place] [address] Tatiana Dominguez, KASH [address] [place] [address] documented as of this encounter Visit Diagnoses Diagnosis Imbalance- Primary Abnormality of gait Benign paroxysmal vertigo of right ear documented in this encounter Additional Health Concerns Assessment Noted Time PHQ-9 Depression Total Score: 0 03/31/19 3:16 PM EST A fall risk assessment has been complete d for the patient 08/16/2023 4:01 PM EDT documented as of this encounter Care Teams Sign Painter Apprentice Relationship Specialty Start Date End Date Style, Sydnee Ndiaye DO [address] [facility] [place] [address] PCP - General Family Medicine 01/17/23 documented as of this encounter
--- OUTSIDE RECORDS SUMMARY | 2023-11-14 01:01 | XMS_ITS | Encounter Summary ---
Author Organization [facility] Address [address], [place] [address] Phone Care Team Providers Care Paper Bag Machine Operator Name Role Phone Style, Sydnee Zelda Primary Care Provider [phone] Reason for Referral * Consultation (Routine) - Authorized Specialty Diagnoses / Procedures Referred By Farrah shook Referred To Contact Otolaryngology Diagnoses Bilateral impacted cerumen Procedures [place] OFFICE/OUTPATIENT [facility] 60 MINUTES Edith Kim MD [address], [address] [address] Referral ID Status Reason Start Date Expiration Date Visits Requested Visits Authorized [id number] Authorized Specialty Services Required 09/21/2023 03/22/2025 1 1 Scheduling Instructions Please call [phone] to schedule. Encounter Details Date Type Department Care Team (Late st Contact Info) Description 09/21/2023 Orders Only [facility] - Primary Care [address] [address] Edith Kim MD [address], [place] [phone] Bilateral impacted cerumen (Primary Dx) Social History Tobacco Use Types Packs/Day Years Used Date Smoking Tobacco: Never Smokeless Tobacco: Never Comments:My parents were smo kers-I lived with passive smoke from childhood Alcohol Use Standard Drinks/Week Comments Yes 2 (1 standard drink = 0.6 oz pur e alcohol) 1/2 glass of wine nightly [facility] Utilities Answer Date Recorded In the [...] often do you attend chur ch or alevism services? More than 4 times per year 03/28/2023 Do you belong to any clubs o r organizations such as rastafarian groups, unions, fraternal or athletic groups, or [...] Patient Health Questionnaire-2 Score 0 09/13/2023 [facility] - Occupational Stress [...] EDT Procedure Visit [facility] [address] [facility] [address] [place] [address] [place] [address] Katie Jones AUD 01/06/2024 2:00 PM EDT Appointment [facility] [address] [place] [address] 01/09/2024 2:00 PM EDT Office Visit [facility] [address] [facility] [address] [place] 19[address] [place] [address] Radha Coker MD [address] [place] [address] 01/10/2024 8:30 AM EDT Office Visit [facility] [address] [place] [address] Style, Sydnee Ndiaye, [address] [facility] [place] [address] 01/11/2024 10:00 AM EDT Office Visit [facility] - ENT & Facial Plastic Surgery [address] [facility] [address] [place] [address] Kat Rico, PATTIE [address] [place] [address] 01/20/2024 11:45 AM EDT Clinical Support [facility] [address] [place] [address] Maria Eugenia Lucero, ORA [address] [place] [address] 01/30/2024 8:40 AM EST Office Visit [facility] [address] [facility] [place] 15[address] [place] [address] Jose Monique MD [address] [facility] [place] 15[address], [address] [place] [address] 02/27/2024 12:50 PM EST Office Visit [facility] [address] [place] [id number] Kellie Bowser, OD [address], [address] [facility] [place] [address] 06/19/2024 11:30 AM EDT Appointment [place] [address] [address] 06/19/2024 1:00 PM EDT Appointment [place] [address] [address] 08/21/2024 1:40 PM EDT Office Visit [facility] [address] 3rd [place] [address] Satya Wright PA [address] [facility] 3rd [place] [address] 09/05/2024 10:30 AM EDT Office Visit [facility] [address] [place] [address] Tatiana Dominguez NP [address] [place] [address] Scheduled Referrals Name Type Priority Associated Diagnoses Order Schedule Ambulatory referral to ENT Outpatient Referral Routine Bilateral impacted cerumen Expected: 09/21/2023 (Approximate), Expires: 03/22/2025 documented as of this encounter Visit Diagnoses Diagnosis Bilateral impacted cerumen- Primary Impacted cerumen documented in this encounter Additional Health Concerns Assessment Noted Time PHQ-9 Depression Total Score: 0 03/31/19 24 3:16 PM EST A fall risk assessment has been complete d for the patient 09/13/2023 2:54 PM EDT documented as of this encounter Care Teams Paper Bag Machine Operator Relationship Specialty Start Date End Date Sydnee Ross DO [address] [facility] [place] [address] PCP - General Family Medicine 01/17/23 documented as of this encounter
--- OUTSIDE RECORDS SUMMARY | 2023-11-14 01:01 | XMS_ITS | Encounter Summary ---
Author Organization [facility] Address [address] [place] [address], [place] [address] Phone Care Team Providers Care Menu Planner Name Role Phone Style, Sydnee Ndiaye DO Primary Care Provider [phone] Reason for Referral * Outpatient Surgery (Routine) - Closed Specialty Diagnoses / Procedures Referred By Farrah shook Referred To Contact Gastroenterology Diagnoses Pancreatic lesion Procedures Endoscopic Ultrasound w FNA MS EDG US EXAM SURGICAL ALTER STOM DUODENUM/JEJUNUM MS EGD US GUIDED TRANSMURAL INJXN/FIDUCIAL MARKER MS INJX ANES CELIAC PLEXUS W/WO RADIOLOGIC MONITRNG MS EGD US GUIDED TRANSMURAL INJXN/FIDUCIAL MARKER MS EGD INTRMURAL US NEEDLE ASPIRATE/BIOPSY ESOPHAGS MS ESOPHAGOSCOPY INTRA/TRANSMURAL NEEDLE ASPIRAT/BX MS EGD INTRMURAL NEEDLE ASPIR/BIOP ALTERED ANATOMY MS ESOPHAGOSCOPY FLEXIBLE TRANSORAL ULTRASOUND EXAM Todd Chairez MD [address] [place] [address] 1 [place] [address] Referral ID Status Reason Start Date Expiration Date Visits Re quested Visits Authorized [id number] Closed 10/04/2022 10/04/2023 1 1 Reason for Visit * Outpatient Surgery (Routine) - Closed Specialty Diagnoses / Procedures Referred By Farrah shook Referred To Contact Gastroenterology Diagnoses Pancreatic lesion Procedures Endoscopic Ultrasound w FNA MS EDG US EXAM SURGICAL ALTER STOM DUODENUM/JEJUNUM MS EGD US GUIDED TRANSMURAL INJXN/FIDUCIAL MARKER MS INJX ANES CELIAC PLEXUS W/WO RADIOLOGIC MONITRNG MS EGD US GUIDED TRANSMURAL INJXN/FIDUCIAL MARKER MS EGD INTRMURAL US NEEDLE ASPIRATE/BIOPSY ESOPHAGS MS ESOPHAGOSCOPY INTRA/TRANSMURAL NEEDLE ASPIRAT/BX MS EGD INTRMURAL NEEDLE ASPIR/BIOP ALTERED ANATOMY MS ESOPHAGOSCOPY FLEXIBLE TRANSORAL ULTRASOUND EXAM Todd Chairez MD [address] [facility], [place] 1 [place] [address] Referral ID Status Reason Start Date Expiration Date Visits Re quested Visits Authorized [id number] Closed 10/04/2022 10/04/2023 1 1 Encounter Details Date Type Department Care Team (Late st Contact Info) Description 08/10/2023 9:16 AM EDT - 08/10/2023 11:59 PM EDT Hospital Encounter [facility] [address] [place] [address] Todd Chairez MD [address] [facility], [place] 1 [place] [address] Tiburcio Wise MD [address] [place] [address] Umesh Garcia Pancreatic lesion Discharge Disposition: DISCHARGED TO HOME OR SELF CARE (ROUTINE DISCHARGE) Social History Tobacco Use Types Packs/Day Years Used Date Smoking Tobacco: Never Smokeless Tobacco: Never Comments:My parents were smo kers-I lived with passive smoke from childhood Alcohol Use Standard Drinks/Week Comments Yes 2 (1 standard drink = 0.6 oz pur e alcohol) 4 per week average [facility] Utilities Answer Date Recorded In the past 12 months has [employer], gas, oil, or water [employer] threatened to shut off services in your [...] often do you attend chur ch or christian services? More than 4 times per year 03/28/2023 Do you belong to any clubs o r organizations such as pentecostal groups, unions, fraternal or athletic groups, or [...] Recorded Patient Health Questionnaire-2 Score 0 08/16/2023 [facility] [place] [facility] Occupat ional Health - Occupational Stress [...] place to sleep or slept in a senior care (including now)? No 03/28/2023 Sex and Gender [...] Sign Reading Time Taken Comments Blood Pressure 120/76 08/10/2023 12:15 PM EDT Pulse 54 08/10/2023 12:15 PM EDT Temperature 36.4 ??C (97.5 ??F) 08/10/2023 12:15 PM E DT Respiratory Rate 15 08/10/2023 12:15 PM EDT Oxygen Saturation 96% 08/10/2023 12:15 PM EDT Inhaled Oxygen Concentration - - Weight 68 kg (150 lb) 08/10/2023 10:02 AM EDT Height 177.8 cm (5' 10) 08/10/2023 10:02 AM EDT Body Mass Index 21.52 08/10/2023 10:02 AM EDT documented in this encounter Discharge Instructions * Discharge Instructions* Mee Morocho - 08/10/2023 12:19 PM EDT Anesthesia Discharge Instructions Do not drive for 24 hours Do not operate machinery for 24 hours Do not drink alcoholic beverages for 24 hours Do not do strenuous activities today; Resume normal activities tomorrow Do not sign legal papers today; you will not have the best judgement today If you have any concerns or questions,call your MD . Patient and family verbalize understanding of instructions given. documented in this encounter Medications at Time of Discharge Medication Sig Dispensed Refills Start Date End Date ammonium lactate (Amlactin) 12 % creamIndications:Acquir ed keratoderma Apply topically if needed in the morning and at bedtime for dry skin. 340 g 2 07/05/2023 07/04/2024 ascorbic vlke-rtyvmmfw-maq (Emergen-C) 1,000 mg powder effervescent in packet Take by mouth once daily. 03/28/2019 atorvastatin (Lipitor) 40 mg tablet TAKE 1 TABLET BY MOUTH EVERY DAY 90 tablet 3 02/10/2023 ibuprofen 200 mg tablet Take by mouth if needed. PRN 03/28/2021 multivit with minerals/lutein (MULTIVITAMIN 50 PLUS ORAL) Take by mouth once daily. 03/28/2022 omega 3-ehi-xoh-fish oil 1,000 mg (120 mg-180 mg) capsule Take by mouth once daily. 03/28/2007 polyvinyl alcohol-povidon,PF, (Refresh Classic, PF,) 1.4-0.6 % eye drops in a dropperette 03/28/2019 zoledronic acid/mannitol-water (RECLAST IV) Infuse into a venous catheter Yearly. clotrimazole (Lotrimin) 1 % cream 11/26/2021 09/06/2023 EPINEPHrine (Epipen) 0.3 mg/0.3 mL injection syringe Inject 0.3 mL (0.3 mg) as directed if needed for anaphylaxis. Call 911 after use. 1 each 09/29/2022 10/04/2023 fluticasone (Flonase) 50 mcg/actuation nasal spray Administer 2 sprays into each nostril once daily. Shake gently. Before first use, prime pump. After use, clean tip and replace cap. 16 g 02/16/2023 09/06/2023 fluticasone propion-salmeteroL (Wixela Inhub) 100-50 mcg/dose diskus inhalerIndications:main tenance therapy for asthma Inhale 1 puff in the morning and at bedtime. Rinse mouth with water after use to reduce aftertaste and incidence of candidiasis. Do not swallow. 60 each 07/29/2023 09/06/2023 magnesium 250 mg tablet 03/28/202108/26 meclizine (Antivert) 25 mg tabletIndications:Jatin zazueta paroxysmal positional vertigo due to bilateral vestibular disorder Take 1 tablet (25 mg) by mouth if needed in the morning, at noon, and at bedtime for dizziness. 30 tablet 07/22/2023 09/05/2023 melatonin 0.5 mg tablet split tablet 03/28/2019 09/06/2023 documented as of this encounter H&P Notes * Todd Chairez MD - 08/10/2023 11:00 AM EDT ENDOSCOPY PROVIDER PRE-PROCEDURE HISTORY AND PHYSICAL NAME:Gianna Infante : 1945 DATE: 08/10/2023 TIME: 10:06 AM Indication For Procedure/HPI: Gianna Infante is a 77 y.o. year old presenting for evaluation of pancreatic cysts PMHx: [facility] with [facility]. PSHx: [facility]ed [facility] and with patient. Medications: Current Outpatient Medications on File Prior to Encounter Medication Sig Dispense Refill ascorbic yqhl-jppupowb-sav (Emergen-C) 1,000 mg powder effervescent in packet atorvastatin (Lipitor) 40 mg tablet TAKE 1 TABLET BY MOUTH EVERY DAY 90 tablet 3 clotrimazole (Lotrimin) 1 % cream ibuprofen 200 mg tablet meclizine (Antivert) 25 mg tablet Take 1 tablet (25 mg) by mouth if needed in the morning, at noon,and at bedtime for dizziness. 30 tablet 0 melatonin 0.5 mg tablet split tablet multivit with minerals/lutein (MULTIVITAMIN 50 PLUS ORAL) omega 7-kbz-qgk-fish oil 1,000 mg (120 mg-180 mg) capsule ammonium lactate (Amlactin) 12 % cream Apply topically if needed in the morning and at bedtime for dry skin. 340 g 2 EPINEPHrine (Epipen) 0.3 mg/0.3 mL injection syringe Inject 0.3 mL (0.3 mg) as directed if needed for anaphylaxis. Call 911 after use. 1 each 0 fluticasone (Flonase) 50 mcg/actuation nasal spray Administer 2 sprays into each nostril once daily. Shake gently. Before first use, prime pump. After use, clean tip and replace cap. 16 g 11 fluticasone propion-salmeteroL (Wixela Inhub) 100-50 mcg/dose diskus inhaler Inhale 1 puff in the morning and at bedtime. Rinse mouth with water after use to reduce aftertaste and incidence of candidiasis. Do not swallow. 60 each 11 magnesium 250 mg tablet polyvinyl alcohol-povidon,PF, (Refresh Classic, PF,) 1.4-0.6 % eye drops in a dropperette zoledronic acid/mannitol-water (RECLAST IV) Infuse into a venous catheter. No current facility-administered medications on file prior to encounter. Scheduled Meds: Continuous Infusions: PRN Meds: Allergies: Allergies Allergen Reactions Bee Venom Protein (Honey Bee) Anaphylaxis Fluoxetine Other reaction(s): Other (See Comments), Other (See Comments) paranoid Paranoid Paranoid Estrogens, Conjugated Hymenoptera Allergenic Extract Serotonin Hallucinations Wasp Venom Trazodone Anxiety Social History: [facility] and with patient. Family History: Reviewed in Epic and with patient. Review of Systems 12 point review of systems performed and negative other than as previously mentioned. Physical Exam Vital signs were reviewed in [facility]. Gen: NAD HEENT: NCAT Pulmonary: CTAB CV: regular Abdomen: soft, nt/nd Extremities: no edema, warm Skin: no rashes LABS: [facility]ed in [facility] IMAGING: [facility]ed in [facility]. ASSESSMENT: I have reviewed/confirmed with the patient/surrogate the medications, allergies, alcohol, tobacco and substance use, past medical, surgical and anesthesia history, current medications, and pertinent ROS from the pre-assessment call and chart review. I have reviewed the sedation plan with the patient/surrogate. The patient has been examined by me today and found to be a suitable candidate for the planned sedation. The patient has consented for the procedure. Procedural Sedation: Independent Sedation Provider/Anesthesia PLAN: EGD w EUS Proceed with procedure as planned today. documented in this encounter Nursing Notes * Santiago Toro - 08/10/2023 11:55 AM EDT EGD with EUS , No Intervention. * Aisha Torres - 08/10/2023 11:32 AM EDT EGD-SCHATZKI'S RING, NO INTERVENTIONS * Mee Morocho - 08/10/2023 11:00 AM EDT update. Sign out obtained, VSS. Patient is clear for discharge documented in this encounter Miscellaneous Notes * Rob Lombardo MD - 08/10/2023 12:46 PM EDT Images from the original note were not included. Patient Education Table of Contents Endoscopic Ultrasound Monitored Anesthesia Care, Care After Upper Endoscopy, Adult, Care After To view videos and all your education online visit, [email or web address] or scan this QR code with your smartphone. Access to this content will in one year. * Rob Lombardo MD - 08/10/2023 12:17 PM EDT Images from the original note were not included. Patient Education Table of Contents Endoscopic Ultrasound Monitored Anesthesia Care, Care After Upper Endoscopy, Adult, Care After To view videos and all your education online visit, [email or web address] or scan this QR code with your smartphone. Access to this content will in one year. documented in this encounter Plan of Treatment Upcoming Encounters Date Type Department Care Team (Late st Contact Info) Description 01/04/2024 11:20 AM EDT Procedure Visit [facility] [address] [facility] [address] [place] [address] Katie Jones AUD 01/06/2024 2:00 PM EDT Appointment [facility] [address] [place] [address] 01/09/2024 2:00 PM EDT Office Visit [facility] [address] [facility] [address] [place] [address] Radha Coker MD [address] [place] [address] 01/10/2024 8:30 AM EDT Office Visit [facility] [address] [place] [address] Vandana, Sydnee Ndiaye, [address] [facility] [place] [address] 01/11/2024 10:00 AM EDT Office Visit [facility] ENT [facility] Surgery [address] [facility] [address] [place] [address] Kat Rico, PA [address] [place] [address] 01/20/2024 11:45 AM EDT Clinical Support [facility] at [facility] [address] [place] [address] Maria Eugenia Lucero LAC [address] [place] [address] 01/30/2024 8:40 AM EST Office Visit [facility] [address] [facility] [address] [address] [place] [address] Jose Monique MD [address] [facility] [address], [address] [place] [address] 02/27/2024 12:50 PM EST Office Visit [facility] [address] [facility] [address] [place] [address] Kellie Bowser, OD [address] [facility] [address] [facility] [place] [address] 06/19/2024 11:30 AM EDT Appointment [place] [address] [address] 06/19/2024 1:00 PM EDT Appointment [place] [address] [address] 08/21/2024 1:40 PM EDT Office Visit [facility]rd [place] [address] Satya Wright PA [address] [facility] 3rd Floor [place], [place] [id number] 09/05/2024 10:30 AM EDT Office Visit [facility] [address] [place] [address] Tatiana Dominguez, [employer] [address] [place] [address] documented as of this encounter Procedures Procedure Name Priority Date/Time Associated Diagnosis Comments ENDOSCOPIC ULTRASOUND Routine 08/10/2023 11:58 AM EDT Pancreatic lesion documented in this encounter Results * Endoscopic Ultrasound w FNA (08/10/2023 11:58 AM EDT) Anatomical Region Laterality Modality Endoscopy 08/10/2023 11:2 3 AM EDT Narrative 08/10/2023 12:15 PM EDT [facility] GI Patient Name: Gianna Infante , ? Procedure Date: 08/10/2023 11:23 AM ? Date of : 1945 ?Admit Type: Outpatient Age: 77 ? Gender: Female Note Status: Finalized ?Attending MD: Todd Chairez MD, Patient Location: [id number] ?Instrument Name: GF [id number] REYES YELLOW,GIF [id number] WHITE/BLUE Number of Addenda: 0 Procedure Date: ?08/10/2023 11:23:46 AM Procedure: ? Upper EUS Indications: ? Pancreatic cyst on MRI Patient Profile: ? Gianna Infante is a 77 yo woman presenting for ? evaluation of pancreatic cysts. Providers: ? Todd Chairez MD (Doctor), Hermelinda Thao MD ? (Fellow) Referring MD: ?Ed Anamaria Medicines: ? Monitored Anesthesia Care Complications: ? No immediate complications. Estimated Blood Loss: ??Estimated blood loss was minimal. Procedure: ? Pre-Anesthesia Assessment: ? - Prior to the procedure, a History and Physical was ? performed, and patient medications and allergies were ? reviewed. The patient is competent. The risks and ? benefits of the procedure and the sedation options and ? risks were discussed with the patient. All questions ? were answered and informed consent was obtained. ? Patient identification and proposed procedure were ? verified by the physician, the nurse and the ? anesthesiologist in the pre-procedure area in the ? procedure room in the endoscopy suite. Mental Status ? Examination: normal. Respiratory Examination: Normal ? work of breathing on room air. CV Examination: S1 and ? S2 present and RRR on compliance monitor. Prophylactic ? Antibiotics: The patient does not require prophylactic ? antibiotics. Prior Anticoagulants: The patient has ? taken no anticoagulant or antiplatelet agents. ASA ? Grade Assessment: II - A patient with mild systemic ? disease. After reviewing the risks and benefits, the ? patient was deemed in satisfactory condition to ? undergo the procedure. The anesthesia plan was to use ? monitored anesthesia care (MAC). Immediately prior to ? administration of medications, the patient was ? re-assessed for adequacy to receive sedatives. The ? heart rate, respiratory rate, oxygen saturations, ? blood pressure, adequacy of pulmonary ventilation, and ? response to care were monitored throughout the ? procedure. The physical status of the patient was ? re-assessed after the procedure. ? After obtaining informed consent, the endoscope was ? passed under direct vision. Throughout the procedure, ? the patient's blood pressure, pulse, and oxygen ? saturations were monitored continuously. The Endoscope ? was introduced through the mouth, and advanced to the ? second part of duodenum. The Endoscope GIF [id number] ? [id number] was introduced through the mouth, and advanced ? to the second part of duodenum. The upper EUS was ? accomplished without difficulty. The patient tolerated ? the procedure well. ? Findings: ? ENDOSCOPIC FINDING: : ? Two large (10-15 mm) inlet patches/ectopic gastric mucosa were found in ? the proximal esophagus, 20 cm from the incisors. ? 5 mm venous bleb at the distal esophagus. The remainder of the esophagus ? was normal. ? A widely patent Schatzki ring was found at the gastroesophageal junction ? at 35 cm from the incisors. ? The cardia and gastric fundus were normal on retroflexion. ? The exam of the stomach was otherwise normal. ? The first portion of the duodenum and second portion of the duodenum ? were normal. ? ENDOSONOGRAPHIC FINDING: : ? A very detailed and careful exam was performed with the linear 7.5Mhz ? echoendoscope. ? The esophagus, stomach and duodenum and adjacent structures were ? examined endosonographically. ? Visualized portions of the left lobe of the liver, spleen, left kidney, ? gallbladder and common bile duct were normal on ultrasound examination. ? No abnormal-appearing lymph nodes were identified in the abdomen. ? CBD 4.4 mm at the pancreatic head. ? Two anechoic lesions suggestive of cysts were identified in the uncinate ? process of the pancreas. The larger cyst measured 30 mm in maximal ? cross-sectional diameter and was unilocular. The smaller cyst measured ? 20 mm in maximal cross-sectional diameter and was multiseptated. There ? was no associated mass. The cysts appeared unchanged from prior exam, ? had no concerning features, and given unremarkable cytology at last ? sampling, not sampled at this exam. ? The pancreatic duct had a prominent, dilated side-branch at the ? pancreatic body measuring up to 3 mm in diameter. The remainder of the ? pancreatic duct was nondilatated. ? There was no sign of significant endosonographic abnormality in the left ? lobe of the liver. ? The region of the celiac plexus and celiac ganglia was visualized and ? showed no sign of significant endosonographic abnormality. The vascular ? anatomy of the region was normal. ? Impression: ?- Two large inlet patchs/ectopic gastric mucosa in the ? proximal esophagus. ? - 5 mm venous bleb at the distal esophagus. ? - Widely patent Schatzki ring at the GEJ. ? - Normal stomach and first and second portions of the ? duodenum. ? - Two cystic lesions - one unilocular and one ? multiseptated - were seen in the uncinate process of ? the pancreas without concerning features and unchanged ? compared to prior exam. Lesions not sampled and ? endoscopic appearance consistent with pancreatic ? pseudocysts. ? - The pancreatic duct at the pancreatic body had a ? prominent side-branch measuring 3 mm in diameter. The ? remainder of the pancreatic duct was nondilatated. ? - There was no evidence of significant pathology in ? the left lobe of the liver. ? - No specimens collected. Recommendation: ?- The patient will be observed post-procedure, until ? all discharge criteria from PACU are met. ? - Clears for first meal and then advance diet as ? tolerated. ? - Continue surveillance with MRIs and obtain next MRI ? in 1 year. ? - Patient has a contact number available for ? emergencies, [facility] number [phone]. The ? signs and symptoms of potential delayed complications ? were discussed with the patient. Patient will be ? discharged to home. Return to normal activities ? tomorrow. Written discharge instructions were provided ? to the patient. ? Procedure Code(s): ? --- Professional --- ? 73029, Esophagogastroduodenoscopy, flexible, ? transoral; with endoscopic ultrasound examination, ? including the esophagus, stomach, and either the ? duodenum or a surgically altered stomach where the ? jejunum is examined distal to the anastomosis Diagnosis Code(s): ? --- Professional --- ? 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 K22.2, Esophageal obstruction ? K86.2, Cyst of pancreas ? R93.3, Abnormal findings on diagnostic imaging of ? other parts of digestive tract CPT copyright 2021 [employer] [place] [employer]. All rights reserved. The codes documented in this report are preliminary and upon grievance and appeals coordinator review may be revised to meet current compliance requirements. Attending Participation: ? I was present and participated during the entire procedure, including ? non-hazel portions. ? Todd Chairez MD 08/10/2023 12:14:55 PM This report has been signed electronically by: Todd Chairez MD Note Initiated On: 08/10/2023 11:23 AM Total Procedure Duration Time 0 hours 22 minutes 25 seconds Scope In: 11:30:59 AM Scope Out: 11:53:24 AM Procedure Note Todd Chairez MD - 08/10/2023 [facility] Patient Name: Gianna Infante , Procedure Date: 08/10/2023 11:23 AM Date of : 1945 Admit Type: Outpatient Age: 77 Gender: Female Note Status: Finalized Attending MD: Todd Chairez MD, Patient Location: [id number] Instrument Name: [id number] YELLOW,GIF HQ190 [id number] WHITE/BLUE Number of Addenda: 0 Procedure Date: 08/10/2023 11:23:46 AM Procedure: Upper EUS Indications: Pancreatic cyst on MRI Patient Profile: Gianna Infante is a 77 yo woman presenting for evaluation of pancreatic cysts. Providers: Todd Chairez MD (Doctor), Hermelinda Thao MD (Fellow) Referring MD: Thang Conrad Medicines: Monitored Anesthesia Care Complications: No immediate complications. Estimated Blood Loss: Estimated blood loss was minimal. Procedure: Pre-Anesthesia Assessment: - Prior to the procedure, a History and Physicalwas performed, and patient medications and allergieswere reviewed. The patient is competent. The risks and benefits of the procedure and the sedation optionsand risks were discussed with the patient. Allquestions were answered and informed consent was obtained. Patient identification and proposed procedure were verified by the physician, the nurse and the anesthesiologist in the pre-procedure area in the procedure room in the endoscopy suite. MentalStatus Examination: normal. Respiratory Examination:Normal work of breathing on room air. CV Examination: S1and S2 present and RRR on compliance monitor. Prophylactic Antibiotics: The patient does not requireprophylactic antibiotics. Prior Anticoagulants: The patient has taken no anticoagulant or antiplatelet agents. ASA Grade Assessment: II - A patient with mild systemic disease. After reviewing the risks and benefits,the patient was deemed in satisfactory condition to undergo the procedure. The anesthesia plan was touse monitored anesthesia care (MAC). Immediately priorto administration of medications, the patient was re-assessed for adequacy to receive sedatives. The heart rate, respiratory rate, oxygen saturations, blood pressure, adequacy of pulmonary ventilation,and response to care were monitored throughout the procedure. The physical status of the patient was re-assessed after the procedure. After obtaining informed consent, the endoscope was passed under direct vision. Throughout theprocedure, the patient's blood pressure, pulse, and oxygen saturations were monitored continuously. TheEndoscope was introduced through the mouth, and advanced tothe second part of duodenum. The Endoscope GIF [id number] was introduced through the mouth, andadvanced to the second part of duodenum. The upper EUS was accomplished without difficulty. The patienttolerated the procedure well. Findings: ENDOSCOPIC FINDING: : Two large (10-15 mm) inlet patches/ectopic gastric mucosa were foundin the proximal esophagus, 20 cm from the incisors. 5 mm venous bleb at the distal esophagus. The remainder of theesophagus was normal. A widely patent Schatzki ring was found at the gastroesophagealjunction at 35 cm from the incisors. The cardia and gastric fundus were normal on retroflexion. The exam of the stomach was otherwise normal. The first portion of the duodenum and second portion of the duodenum were normal. ENDOSONOGRAPHIC FINDING: : A very detailed and careful exam was performed with the linear 7.5Mhz echoendoscope. The esophagus, stomach and duodenum and adjacent structures were examined endosonographically. Visualized portions of the left lobe of the liver, spleen, leftkidney, gallbladder and common bile duct were normal on ultrasoundexamination. No abnormal-appearing lymph nodes were identified in the abdomen. CBD 4.4 mm at the pancreatic head. Two anechoic lesions suggestive of cysts were identified in theuncinate process of the pancreas. The larger cyst measured 30 mm in maximal cross-sectional diameter and was unilocular. The smaller cystmeasured 20 mm in maximal cross-sectional diameter and was multiseptated.There was no associated mass. The cysts appeared unchanged from prior exam, had no concerning features, and given unremarkable cytology at last sampling, not sampled at this exam. The pancreatic duct had a prominent, dilated side-branch at the pancreatic body measuring up to 3 mm in diameter. The remainder ofthe pancreatic duct was nondilatated. There was no sign of significant endosonographic abnormality in theleft lobe of the liver. The region of the celiac plexus and celiac ganglia was visualized and showed no sign of significant endosonographic abnormality. Thevascular anatomy of the region was normal. 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 - 5 mm venous bleb at the distal esophagus. - Widely patent Schatzki ring at the GEJ. - Normal stomach and first and second portions ofthe duodenum. - Two cystic lesions - one unilocular and one multiseptated - were seen in the uncinate processof the pancreas without concerning features andunchanged compared to prior exam. Lesions not sampled and endoscopic appearance consistent with pancreatic pseudocysts. - The pancreatic duct at the pancreatic body had a prominent side-branch measuring 3 mm in diameter.The remainder of the pancreatic duct wasnondilatated. - There was no evidence of significant pathology in the left lobe of the liver. - No specimens collected. Recommendation: - The patient will be observed post-procedure,until all discharge criteria from PACU are met. - Clears for first meal and then advance diet as tolerated. - Continue surveillance with MRIs and obtain nextMRI in 1 year. - Patient has a contact number available for emergencies, [facility] number [phone].The signs and symptoms of potential delayedcomplications were discussed with the patient. Patient will be discharged to home. Return to normal activities tomorrow. Written discharge instructions wereprovided to the patient. 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 All rights reserved. The codes documented in this report are preliminary and upon grievance and appeals coordinator reviewmay be revised to meet current compliance requirements. Attending Participation: I was present and participated during the entire procedure, including non-hazel portions. Todd Chairez MD 08/10/2023 12:14:55 PM This report has been signed electronically by: Todd Chairez MD Note Initiated On: 08/10/2023 11:23 AM Total Procedure Duration Time 0 hours 22 minutes 25 seconds Scope In: 11:30:59 AM Scope Out: 11:53:24 AM Todd Chairez MD ENDOSCOPY PROCEDURE ORDERABLES documented in this encounter Visit Diagnoses Diagnosis Pancreatic lesion documented in this encounter Administered Medications Inactive Administered Medications - up to 3 most recent administrations Medication Order MAR Action Action Date Dose Rate Site lactated Ringer's infusion - Omnicell Override Pull Starting on Tue08/10/23 at 0920, For 1 dose, Created by cabinet override New Bag 08/10/2023 10:03 AM EDT 20 mL/hr Right Forearm documented in this encounter Additional Health Concerns Assessment Noted Time PHQ-9 Depression Total Score: 0 03/31/19 3:16 PM EST A fall risk assessment has been complete d for the patient 07/22/2023 11:36 AM EDT documented as of this encounter Care Teams Menu Planner Relationship Specialty Start Date End Date Vandana, Sydnee Ndiaye DO [address] [facility] [place] [address] PCP - General Family Medicine 01/17/23 documented as of this encounter
--- OUTSIDE RECORDS SUMMARY | 2023-11-14 01:01 | XMS_ITS | Encounter Summary ---
Author Organization [facility] Address [address] , [place], [place] [address] Phone Care Team Providers Care Webfocus Developer Name Role Phone Style, Sydnee Ndiaye DO Primary Care Provider [phone] Reason for Visit * Reason Onset Date Comments appt listed ass no show, ot attended the visit. 09/26/2023 Encounter Details Date Type Department Care Team (Late st Contact Info) Description 09/26/[address] [place] [address] Keyla Mccullough, PT, DPT [address] [facility] [address] [facility] [place] [address] appt listed ass no show, ot attended the visit. Social History Tobacco Use Types Packs/Day Years Used Date Smoking Tobacco: Never Smokeless Tobacco: Never Comments:My parents were smo kers-I lived with passive smoke from childhood Alcohol Use Standard Drinks/Week Comments Yes 2 (1 standard drink = 0.6 oz pur e alcohol) 1/2 glass of wine nightly [facility] Utilities Answer Date Recorded In the [...] often do you attend chur ch or confucianism services? More than 4 times per year 03/28/2023 Do you belong to any clubs o r organizations such as restoration groups, unions, fraternal or athletic groups, or [...] Recorded Patient Health Questionnaire-2 Score 0 09/13/2023 [facility] of Occupat ional Health - Occupational Stress [...] place to sleep or slept in a chcf (including now)? No 03/28/2023 Sex and Gender [...] encounter Miscellaneous Notes * Telephone Encounter - Kimmy Carter - 09/26/2023 8:14 AM EDT CLINICAL CONCERN Concern / Question: Pt is calling to request her chart be updated, she had an appt on 09/22/2023 and she was seen by her provider, but it shows up on her past appt's as a now show, please assist. She states that she meet with Harjit that morning and she states that that was at Keyla's direction documented in this encounter Plan of Treatment Upcoming Encounters Date Type Department Care Team (Late st Contact Info) Description 01/04/2024 11:20 AM EDT Procedure Visit [facility] [address] [facility] Medical Office [place] Floor 9 [place] [address] Katie Jones AUD 01/06/2024 2:00 PM EDT Appointment [facility] [address] [place] [address] 01/09/2024 2:00 PM EDT Office Visit [facility] [address] [facility] Medical Office [place] 19th Floor [address] [place] [address] Radha Coker MD [address] [place] [address] 01/10/2024 8:30 AM EDT Office Visit [facility] [address] [place] [address] Style, Sydnee Ndiaye, [address] [facility] [place] [address] 01/11/2024 10:00 AM EDT Office Visit [facility] - ENT & [facility]ial Plastic Surgery [address] [facility] [address] [place] [address] Kat Rico, PATTIE [address] [place] [address] 01/20/2024 11:45 AM EDT Clinical Support [facility] [address] [place] [address] Maria Eugenia Lucero, ORA [address] [place] [address] 01/30/2024 8:40 AM EST Office Visit [facility] [address] [facility] [place] 15th [address] [place] [address] Jose Monique MD 550 [facility] Medical Office [place] 15th Floor, [address] [place] [address] 02/27/2024 12:50 PM EST Office Visit [facility] [address] 4 [address] [place] [address] Kellie Bowser, OD [address], [address] [facility] [place] [address] 06/19/2024 11:30 AM EDT Appointment [place] [address] [address] 06/19/2024 1:00 PM EDT Appointment [place] [address] [address] 08/21/2024 1:40 PM EDT Office Visit [facility] 3rd [place] [address] Satya Wright PA [address] [facility] 3rd [place] [address] 09/05/2024 10:30 AM EDT Office Visit [facility] [address] [place] [address] Tatiana Dominguez NP [address] [place] [address] documented as of this encounter Visit Diagnoses Not on filedocumented in this encounter Additional Health Concerns Assessment Noted Time PHQ-9 Depression Total Score: 0 03/31/19 24 3:16 PM EST A fall risk assessment has been complete d for the patient 09/13/2023 2:54 PM EDT documented as of this encounter Care Teams Webfocus Developer Relationship Specialty Start Date End Date Style, Sydnee Ndiaye DO [address] [facility] [address] [facility] - [place] [address] PCP - General Family Medicine 01/17/23 documented as of this encounter
--- OUTSIDE RECORDS SUMMARY | 2023-11-14 01:02 | XMS_ITS | Encounter Summary ---
Author Organization [facility] Address [address], [place], [place] [address] Phone Care Team Providers Care Office Technology Professor Name Role Phone Sydnee Ross DO Primary Care Provider [phone] Reason for Referral * - Closed Specialty Diagnoses / Procedures Referred By Farrah shook Referred To Contact Diagnoses Encounter for screening mammogram for malignant neoplasm of breast Procedures BI Mammogram Screening Tomosynthesis Bilateral W CAD Standard Protocol Style, Sydnee Ndiaye DO [address] [place] [address] Referral ID Status Reason Start Date Expiration Date Visits Re quested Visits Authorized [id number] Closed 06/11/2023 12/10/2024 1 1 Reason for Visit * - Closed Specialty Diagnoses / Procedures Referred By Farrah shook Referred To Contact Diagnoses Encounter for screening mammogram for malignant neoplasm of breast Procedures BI Mammogram Screening Tomosynthesis Bilateral W CAD Standard Protocol Style, Sydnee Ndiaye DO [address] [place] [address] Referral ID Status Reason Start Date Expiration Date Visits Re quested Visits Authorized [id number] Closed 06/11/2023 12/10/2024 1 1 Encounter Details Date Type Department Care Team (Latest Contact Info) Description 06/20/2023 9:42 AM EDT - 06/20/2023 9:49 AM EDT Hospital Encounter [facility] [address] [place] [id number] Encounter for screening mammogram for malignant neoplasm of breast Discharge Disposition: DISCHARGED TO HOME OR SELF CARE (ROUTINE DISCHARGE) Social History Tobacco Use Types Packs/Day Years Used Date Smoking Tobacco: Never Smokeless Tobacco: Never Comments:My parents were smo kers-I lived with passive smoke Alcohol Use Standard Drinks/Week Comments Yes 2 (1 standard drink = 0.6 oz pur e alcohol) 4 per week average [facility] Utilities Answer Date Recorded In the past 12 months has th e [employer], gas, oil, or water [employer] threatened to shut off services in your [...] often do you attend chur ch or church services? More than 4 times per year 03/28/2023 Do you belong to any clubs o r organizations such as religion groups, unions, fraternal or athletic groups, or [...] Answer Date Recorded Patient Health Questionnaire-2 Score 1 06/17/2023 [facility] of Occupat ional Health - Occupational Stress [...] place to sleep or slept in a correction (including now)? No 03/28/2023 Sex and Gender Information Value Date Recorded Sex Assigned at Choose not to disclose 06/2023 9:41 PM EDT Gender Identity Female 01/17/2022 5:45 PM EDT Sexual Orientation Choose not to disclose 2023 9:41 PM EDT Job Start Date Occupation Industry Not on file Not on file Not on file documented as of this encounter Medications at Time of Discharge Medication Sig Dispensed Refills Start Date End Date ascorbic bugm-ukfnnfkw-jku (Emergen-C) 1,000 mg powder effervescent in packet Take by mouth once daily. 03/28/2019 atorvastatin (Lipitor) 40 mg tablet TAKE 1 TABLET BY MOUTH EVERY DAY 90 tablet 3 02/10/2023 ibuprofen 200 mg tablet Take by mouth if needed. PRN 03/28/2021 multivit with minerals/lutein (MULTIVITAMIN 50 PLUS ORAL) Take by mouth once daily. 03/28/2022 omega 1-kqu-eih-fish oil 1,000 mg (120 mg-180 mg) capsule [...] tip and replace cap. 16 g 11 02/16/2023 09/06/2023 fluticasone furoate-vilanteroL (BREO ELIPTA) 100-25 mcg/dose inhalerIndications:Dysp donato on exertion Inhale 1 puff once daily. Rinse mouth with water after use 60 each 3 04/26/2023 07/05/2023 fluticasone furoate-vilanteroL (Breo Ellipta) 50-25 mcg/dose blister with device Inhale 1 puff once daily. 60 each 3 04/25/2023 07/05/2023 magnesium 250 mg tablet 03/28/202108/26 melatonin 0.5 mg tablet split tablet 03/28/2019 09/06/2023 meloxicam (Mobic) 15 mg tablet Take 1 tablet (15 mg) by mouth if needed each day for moderate pain. 30 tablet 3 03/31/2023 07/05/2023 documented as of this encounter Plan of Treatment Upcoming Encounters Date Type Department Care Team (Late st Contact Info) Description 01/04/2024 11:20 AM EDT Procedure Visit [facility] [address] [facility] Medical Office [place] Floor 9 [place] [address] Katie Jones AUD 01/06/2024 2:00 PM EDT Appointment [facility] [address] [place] [address] 01/09/2024 2:00 PM EDT Office Visit [facility] [address] [facility] Office [place] 19th Floor [address] [place] [address] Radha Coker MD [address] [place] [phone] 01/10/2024 8:30 AM EDT Office Visit [facility] [address] [place] [address] Vandana, Sydnee Ndiaye, [address] [facility] [place] [address] 01/11/2024 10:00 AM EDT Office Visit [facility] [address] [place] [address] Kat Rico PA [address] [place] [address] 01/20/2024 11:45 AM EDT Clinical Support [facility] [address] [place] [address] Maria Eugenia Lucero, [facility] [address] [place] [address] 01/30/2024 8:40 AM EST Office Visit [facility] [address] [facility] [place] 15th [address] [place] [address] Jose Monique MD [address] [facility] Office [place] 15th Floor, [address] [place] [address] 02/27/2024 12:50 PM EST Office Visit [facility] [address] [facility] [address] 4 [address] [place] [address] Kellie Bowser, OD [address] [facility] [address] 4, [address] [facility] [place] [address] 06/19/2024 11:30 AM EDT Appointment [place] [address] [place] [address] 06/19/2024 1:00 PM EDT Appointment [place] [address] [facility] [address] [place] [address] 08/21/2024 1:40 PM EDT Office Visit [facility] [address] [facility] [address] 3rd [place] [address] Satya Wright PA [address] [facility] [address] 3rd [place] [address] 09/05/2024 10:30 AM EDT Office Visit [facility] [address] [place] [address] Tatiana Dominguez NP [address] [address] documented as of this encounter Procedures Procedure Name Priority Date/Time Associated Diagnosis Comments BI MAMMOGRAM SCREENING TOMOSYNTHESIS BILATERAL W CAD STND PROTOCOL Routine 06/20/2023 11:01 AM EDT Encounter for screening mammogram for malignant neoplasm of breast documented in this encounter Results * BI Mammogram Screening Tomosynthesis Bilateral W CAD Standard Protocol (06/20/2023 11:01 AM EDT) Anatomical Region Laterality Modality Breast Bilateral Mammography 06/20/2023 12:4 9 PM EDT Impressions 06/20/2023 12:49 PM EDT There is no mammographic evidence of malignancy. Bilateral mammogram in 1 year is recommended. BI-RADS Category 1: Negative - No evidence of cancer. Narrative 06/20/2023 12:49 PM EDT HISTORY: Patient is 77 years old and is seen for screening. ??The patient has a history of left ultrasound core biopsy in 2016 - benign. FILMS COMPARED: The present examination has been compared to prior imaging studies performed at [facility] on 09/12/2002, at [facility] on 06/17/2022, and at [facility] on 11/20/2004. MAMMOGRAM FINDINGS: The following mammographic views were obtained: bilateral craniocaudal, bilateral mediolateral oblique, and bilateral tomosynthesis. ??Computer-aided detection was utilized by the radiologist in the interpretation of this examination. There are scattered fibroglandular densities. No suspicious masses, calcifications or other abnormalities are seen. Procedure Note Faby Saeed MD - 06/20/2023 HISTORY: Patient is 77 years old and is seen for screening. The patient has ahistory of left ultrasound core biopsy in 2016 - benign. FILMS COMPARED: The present examination has been compared to prior imaging studiesperformed at [facility] on 09/12/2002,at [facility] on 06/17/2022, and at [facility] on11/20/2004. MAMMOGRAM FINDINGS: The following mammographic views were obtained: bilateral craniocaudal,bilateral mediolateral oblique, and bilateral tomosynthesis.Computer-aided detection was utilized by the radiologist in theinterpretation of this examination. There are scattered fibroglandular densities. No suspicious masses, calcifications or other abnormalities are seen. IMPRESSION: There is no mammographic evidence of malignancy. Bilateral mammogram in 1 year is recommended. BI-RADS Category 1: Negative - No evidence of cancer. Sydnee Ross DO IMG BI PROCEDURES documented in this encounter Visit Diagnoses Diagnosis Encounter for screening mammogram for malignant neoplasm of breast documented in this encounter Additional Health Concerns Assessment Noted Time PHQ-9 Depression Total Score: 0 03/31/19 24 3:16 PM EST A fall risk assessment has been complete d for the patient 04/25/2023 2:29 PM EST documented as of this encounter Care Teams Office Technology Professor Relationship Specialty Start Date End Date Style, Sydnee Ndiaye DO [address] [facility] [place] [address] PCP - General Family Medicine 01/17/23 documented as of this encounter
--- OUTSIDE RECORDS SUMMARY | 2023-11-14 01:02 | XMS_ITS | Encounter Summary ---
Author Organization [facility] Address [address] [facility] , [place], [place] [address] Phone Care Team Providers Care Access Service Representative Name Role Phone Style, Sydnee Zelda GUILLEN Primary Care Provider [phone] Encounter Details Date Type Department Care Team (Late st Contact Info) Description 07/27/2023 Plan of Care Documentation [address] [place] [address] Social History Tobacco Use Types Packs/Day Years Used Date Smoking Tobacco: Never Smokeless Tobacco: Never Comments:My parents were smo kers-I lived with passive smoke from childhood Alcohol Use Standard Drinks/Week Comments Yes 2 (1 standard drink = 0.6 oz pur e alcohol) 4 per week average [facility] Utilities Answer Date Recorded In the past 12 months has e electric, gas, oil, or water [employer] threatened to shut off services in your [...] any clubs o r organizations such as congregational groups, unions, fraternal or athletic groups, or [...] Recorded Patient Health Questionnaire-2 Score 0 07/22/2023 [facility] of Occupat ional Health - [...] place to sleep or slept in a usp (including now)? No 03/28/2023 Sex and Gender [...] Description 01/04/2024 11:20 AM EDT Procedure Visit [facility] [address] [facility] Office [place] Floor 9 [place] [address] Katie Jones AUD 01/06/2024 2:00 PM EDT Appointment [facility] [address] [place] [address] 01/09/2024 2:00 PM EDT Office [facility] [address] [facility] Medical Office [place] 19th Floor [address] [place] [address] Radha Coker MD [address] [place] [address] 01/10/2024 8:30 AM EDT Office Visit [facility] Care [address] [place] [address] Style, Sydnee Ndiaye, DO [address] [facility] [place] [address] 01/11/2024 10:00 AM EDT Office Visit [facility] - ENT & Facial Plastic Surgery [address] [place] [address] Kat Rico, PA [address] [place] [address] 01/20/2024 11:45 AM EDT Clinical Support [facility] [address] [facility] [address] [place] [address] Maria Eugenia Lucero, [facility] [address] [place] [address] 01/30/2024 8:40 AM EST Office [facility] [address] [facility] [place] 15th Floor [address] [place] [address] Jose Monique MD 550 [facility] Office [place] 15th Floor, [address] [place] [address] 02/27/2024 12:50 PM EST Office Visit [facility] [address] [place] [address] Kellie Bowser, OD [address], [address] [facility] [place] [address] 06/19/2024 11:30 AM EDT Appointment [facility] [address] [place] [address] 06/19/2024 1:00 PM EDT Appointment [facility] [address] [place] [address] 08/21/2024 1:40 PM EDT Office Visit [facility] [address] [facility] [address] 3rd [place] [address] Satya Wright PA [address] 3rd [place] [address] 09/05/2024 10:30 AM EDT Office Visit [facility] [address] [place] [address] Tatiana Dominguez, CONFIGURATION CONSULTANT [address] [facility] [place] [address] documented as of this encounter Visit Diagnoses Not on filedocumented in this encounter Additional Health Concerns Assessment Noted Time PHQ-9 Depression Total Score: 0 03/31/19 24 3:16 PM EST A fall risk assessment has been complete d for the patient 07/22/2023 11:36 AM EDT documented as of this encounter Care Teams Access Service Representative Relationship Specialty Start Date End Date Vandana, Sydnee Ndiaye DO [address] [facility] [place] [address] PCP - General Family Medicine 01/17/23 documented as of this encounter
--- OUTSIDE RECORDS SUMMARY | 2023-11-14 01:02 | XMS_ITS | Encounter Summary ---
Author Organization [facility] Address [address] [place] [address], [place] [address] Phone Care Team Providers Care Facilities Director Name Role Phone Sydnee Ross DO Primary Care Provider [phone] Reason for Referral * Consultation (Routine) - Authorized Specialty Diagnoses / Procedures Referred By Farrah shook Referred To Contact Physical Therapy Diagnoses Benign paroxysmal positional vertigo due to bilateral vestibular disorder Procedures [place] OFFICE/OUTPATIENT [facility] 60 MINUTES Sydnee Ross DO [address] [facility] [place] [address] Referral ID Status Reason Start Date Expiration Date Visits Requested Visits Authorized [id number] Authorized Specialty Services Required 07/26/2023 01/24/2025 10 10 Scheduling Instructions Please call one of the following phone numbers to schedule: [phone] ([facility]) [phone] ([facility]) [phone] ([facility]) [phone] ([facility]) [phone] ([facility]) [phone] ([facility]) [phone] ([facility]) Encounter Details Date Type Department Care Team (Late st Contact Info) Description 07/26/2023 Orders Only [facility] [address] [place] [address] Style, Sydneesa Ndiaye, DO [address] [facility] [place] [address] Benign paroxysmal positional vertigo due to bilateral vestibular disorder (Primary Dx) Social History Tobacco Use Types Packs/Day Years Used Date Smoking Tobacco: Never Smokeless Tobacco: Never Comments:My parents were smo kers-I lived with passive smoke from childhood Alcohol Use Standard Drinks/Week Comments Yes 2 (1 standard drink = 0.6 oz pur e alcohol) 4 per week average [facility] Utilities Answer Date Recorded In the past [...] often do you attend chur ch or hinduism services? More than 4 times per year 03/28/2023 Do you belong to any clubs o r organizations such as religious groups, unions, fraternal or athletic groups, or [...] Recorded Patient Health Questionnaire-2 Score 0 07/22/2023 [facility] - [...] Description 01/04/2024 11:20 AM EDT Procedure Visit [facility] [address] [facility] Medical Office [place] Floor 9 [place] [address] Katie Jones, LISA 01/06/2024 2:00 PM EDT Appointment [facility] [address] [place] [address] 01/09/2024 2:00 PM EDT Office Visit [facility] [address] [facility] Medical Office [place] 19th Floor [address] [place] [address] Radha Coker MD [address] [place] [address] 01/10/2024 8:30 AM EDT Office Visit [facility] - Primary [facility] [address] [place] [address] Vandana, Sydnee Ndiaye, [address] [facility] [place] [address] 01/11/2024 10:00 AM EDT Office Visit [facility] Surgery [address] [facility] [address] [place] [address] Kat Rico, PA [address] [place] [address] 01/20/2024 11:45 AM EDT Clinical Support [facility] [address] [place] [address] Maria Eugenia Lucero, ORA [address] [place] [address] 01/30/2024 8:40 AM EST Office Visit [facility] [address] [facility] [place] 15th [address] [place] [address] Jose Monique MD 550 [facility] Office [place] 15th Floor, [address] [place] [address] 02/27/2024 12:50 PM EST Office Visit [facility] [address] [facility] [address] 4 [address] [place] [address] Kellie Bowser, OD [address], [address] [facility] [place] [address] 06/19/2024 11:30 AM EDT Appointment [place] [address] [place] [address] 06/19/2024 1:00 PM EDT Appointment [place] [address] [place] [address] 08/21/2024 1:40 PM EDT Office Visit [facility] at [address] [facility] 3rd [place] [address] Satya Wright PA [address] 3rd [place] [address] 09/05/2024 10:30 AM EDT Office Visit [facility] [address] [place] [address] Tatiana Dominguez NP [address] [place] [address] Scheduled Referrals Name Type Priority Associated Diagnoses Order Schedule Ambulatory referral to Physical Therapy Outpatient Referral Routine Benign paroxysmal positional vertigo due to bilateral vestibular disorder Expected: 07/26/2023 (Approximate), Expires: 01/24/2025 documented as of this encounter Visit Diagnoses Diagnosis Benign paroxysmal positional vertigo due to bilateral vestibular disorder- Primary documented in this encounter Additional Health Concerns Assessment Noted Time PHQ-9 Depression Total Score: 0 03/31/19 24 3:16 PM EST A fall risk assessment has been complete d for the patient 07/22/2023 11:36 AM EDT documented as of this encounter Care Teams Facilities Director Relationship Specialty Start Date End Date Sydnee Ross DO [address] [facility] [place] [address] PCP - General Family Medicine 01/17/23 documented as of this encounter
--- OUTSIDE RECORDS SUMMARY | 2023-11-14 01:02 | XMS_ITS | Encounter Summary ---
Author Organization [facility] Address [address] [place] [address], [place] [address] Phone Care Team Providers Care Roofer Gypsum Name Role Phone Style, Sydnee Zelda GUILLEN Primary Care Provider [phone] Reason for Visit * Reason Comments Follow-up Encounter Details Date Type Department Care Team (Late st Contact Info) Description 06/30/2023 1:45 PM EDT Office Visit [facility] [address] [place] [address] Hieu Giles MD [address] [facility] [place] [address] Cervical spondylosis (Primary Dx); Degenerative disc disease, cervical; Lumbar spondylosis Social History Tobacco Use Types Packs/Day Years Used Date Smoking Tobacco: Never Smokeless Tobacco: Never Tobacco Cessation:Counseling Given: Not Answered Comments:My parents were smokers-I lived with passive smoke from childhood Alcohol Use Standard Drinks/Week Comments Yes 2 (1 standard drink = 0.6 oz pur e alcohol) 4 per week average [facility] Utilities Answer Date Recorded In the [...] How often do you attend chur or zoroastrianism services? More than 4 times per year 03/28/2023 Do you belong to any clubs o r organizations such as roman catholic groups, unions, fraternal or athletic groups, or [...] Recorded Patient Health Questionnaire-2 Score 1 06/17/2023 [facility] Occupat ional Health - Occupational Stress [...] place to sleep or slept in a fpc (including now)? No 03/28/2023 Sex and Gender [...] Sign Reading Time Taken Comments Blood Pressure 124/75 06/30/2023 1:37 PM EDT Pulse 64 06/30/2023 1:37 PM EDT Temperature - - Respiratory Rate - - Oxygen Saturation - - Inhaled Oxygen Concentration - - Weight 69.4 kg (153 lb) 06/30/2023 1:37 PM EDT Height 177.8 cm (5' 10) 06/30/2023 1:37 PM EDT Body Mass Index 21.95 06/30/2023 1:37 PM EDT documented in this encounter Progress Notes * Oli Sy - 06/30/2023 1:45 PM EDT Answers submitted by the patient for this visit: Spine Patient Questionnaire (Submitted on 06/24/2023) Chief Complaint: SPINE MYCHART PATIENT RFV Returning for same problem: yes Reason for visit: to discuss pain or some other problem in neck, back, arms or legs Primary complaint: neck Secondary complaint: lower back Third complaint: neck Red flags: none of these Problem impact: has no major limitations on their daily activities Had accident or injury: did not have an accident Neck pain description: shooting pain, aching pain Neck pain trending: staying about the same Neck pain worst: 6 Neck pain average: 5 Neck pain frequency: 90% Neck resting pain reflief: 90% Neck pain worse: walking Neck pain better: lying down Lower back complaint: sharp pain Lower back pain trending: staying about the same Lower back pain worst: 6 Lower back pain average: 0 Lower back pain frequency: 10% Lower back resting pain reflief: 100% Lower back pain worse: none of the above Lower back pain better: none of the above * Hieu Giles MD - 06/30/2023 1:45 PM EDT Interval history: 77-year-old woman returns. She did physical therapy, modalities, exercise. This has been helpful. There is still some residual left cervical pain. It is not severe but can be 5/10. Physical therapy also helped her back pain. Ibuprofen is helpful, meloxicam was too expensive. Acetaminophen does not help. There is no limb dysfunction. 02/14/23 Interval history: 77-year-old woman returns. She have left side C2/3 and C4/5 medial branch block but had absolutely no effect. She has been doing a lot of traveling. Dexterity and balance are good. Meloxicam and ibuprofen have been helpful. Pain is not severe. She did physical therapy for three months and continues to do the exercise. 09/23/22 Chief complaint neck and back HPI: 76-year-old woman with chronic axial spine pain. It is left-sided neck in the upper part and going to the back of the head. Also left axial lumbar pain. Worse with movements. Crepitus. No radiculopathy or bowel/bladder/saddle/constitutional complaint. Has had spine problems for a long time. Had old compression fractures in the past. Has had bone density treatment. Ibuprofen sometimes helps. Did physical therapy for six months recently for cervical and lumbar pain. Does exercise learn thereand walks. Medical history includes knee replacement. Non-smoker. No relevant family history. 08/17/22 Dr. Flynn note: History of Present Illness This 76-year-old female presents to the office today with complaints of relatively chronic neck pain radiating into the left occipital scalp. She denies any upper extremity pain, paresthesias or weakness. She also notes for history of a T11 and 12 compression fracture in 2019 which was treated conservatively. She did have significant osteoporosis and has been on Forteo for 2 years as well as Reclast. Her next bone density exam is scheduled for next year. Her most recent DEXA scan was June 16, 2021 which was -2.2. She does complain of a chronic left-sided lower lumbar, superior buttock discomfort. She has had both of these worked on for the last 4 to 5 months with good aggressive physical th erapy. She states that therapy improved her cervical range of motion but did not improve her pain. She denies any lower extremity radicular symptoms. She denies any bowel bladder dysfunction or saddle anesthesia. She denies any gait instability. She denies any dexterity issues of either upper extremity. She does take occasional [id number] ibuprofen with some benefit, she states acetaminophen typically does not help her. She has had no injections in her neck or back. She believes she had an MRI of her cervical spine in [place] but we do not have records or films to review today. She is recently relocated here to [place]. Past medical and surgical history, allergies and medications, family and social history, reviewed in the electronic record and intake. Review of systems as above. Exam alert oriented fluent no distress HEENT normal pulmonary normal effort/rate cardiovascular normal perfusion/ G.I. unremarkable habitus spine no obvious or palpable defect, Improved cervical range of motion musculoskeletal normal bilateral major joint neurologic nonfocal 5/5 all bilateral strength exposed skin normal no edema bilateral I directly reviewed recent spine studies spine clinic imaging and records reviewed September 07, 2022 cervical MRI reviewed with multilevel spondylosis IMPRESSION: 1. Significantly limited study given patient motion on the axial images. 2. Straightening of the normal cervical lordosis with 1 mm anterolisthesis of C3 on C4 and C4 on C5. 3. Multilevel degenerative disc disease, as above, with mild mass effect on the cord at C4-C5 and C5-C6 but no cord signal abnormality. Multilevel neural foramina narrowing also seen. Impressions/recommendations: 77-year-old woman with chronic axial spine pain, facet syndrome, cervical and referred headache, lumbar, all on the left side. She has chronic left cervical facet syndrome. She is improved. Better in cervical and lumbar spine. Residual symptoms are livable. No immediateneed for new imaging or intervention. All questions were addressed including, acupuncture would be an option, alternative injections could be considered. For now she will return as needed. K Answers submitted by the patient for this visit: Spine Patient Questionnaire (Submitted on 06/24/2023) Chief Complaint: SPINE MYCHART PATIENT RFV Returning for same problem: yes Reason for visit: to discuss pain or some other problem in neck, back, arms or legs Primary complaint: neck Secondary complaint: lower back Third complaint: neck Red flags: none of these Problem impact: has no major limitations on their daily activities Had accident or injury: did not have an accident Neck pain description: shooting pain, aching pain Neck pain trending: staying about the same Neck pain worst: 6 Neck pain average: 5 Neck pain frequency: 90% Neck resting pain reflief: 90% Neck pain worse: walking Neck pain better: lying down Lower back complaint: sharp pain Lower back pain trending: staying about the same Lower back pain worst: 6 Lower back pain average: 0 Lower back pain frequency: 10% Lower back resting pain reflief: 100% Lower back pain worse: none of the above Lower back pain better: none of the above documented in this encounter Plan of Treatment Upcoming Encounters Date Type Department Care Team (Late st Contact Info) Description 01/04/2024 11:20 AM EDT Procedure Visit [address] Medical Office [place] Floor 9 [place] [address] Katie Jones, LISA 01/06/2024 2:00 PM EDT Appointment [facility] [address] [place] [address] 01/09/2024 2:00 PM EDT Office Visit [facility] 550 [facility] Medical Office [place] 19th Floor [address] [place] [address] Radha Coker MD 550 [place] [address] 01/10/2024 8:30 AM EDT Office Visit [facility] - Primary Care [address] [place] [address] Vandana, Sydnee Ndiaye, [address] [facility] [place] [address] 01/11/2024 10:00 AM EDT Office Visit [facility] - ENT & Facial Plastic Surgery [address] [facility] [address] [place] [address] Kat Rico PA [address] [place] [address] 01/20/2024 11:45 AM EDT Clinical Support [facility] [address] [place] [address] Maria Eugenia Lucero, [facility] [address] [place] [address] 01/30/2024 8:40 AM EST Office Visit [facility] 550 [facility] Medical Office [place] 15th Floor [address] [place] [address] Jose Monique MD 550 [facility] Office [place] 15th Floor, [address] [place] [address] 02/27/2024 12:50 PM EST Office Visit [facility] [address] [place] [phone] Kellie Bowser, OD [address], [address] [facility] [place] [address] 06/19/2024 11:30 AM EDT Appointment [place] [address] [place] [address] 06/19/2024 1:00 PM EDT Appointment [place] [address] [facility] [address] [place] [address] 08/21/2024 1:40 PM EDT Office Visit [facility] at [address] [place] [address] NE 3rd [place] [address] Satya Wright PA [address] [facility] NE 3rd [place] [address] 09/05/2024 10:30 AM EDT Office Visit [facility] [address] [place] [address] Tatiana Dominguez, KASH [address] [address] documented as of this encounter Visit Diagnoses Diagnosis Cervical spondylosis- Primary Cervical spondylosis without myelopathy Degenerative disc disease, cervical Lumbar spondylosis Lumbosacral spondylosis without myelopathy documented in this encounter Additional Health Concerns Assessment Noted Time PHQ-9 Depression Total Score: 0 03/31/19 24 3:16 PM EST A fall risk assessment has been complete d for the patient 04/25/2023 2:29 PM EST documented as of this encounter Care Teams Roofer Gypsum Relationship Specialty Start Date End Date Sydnee Ross DO [address] [place] [place], [place] [id number] PCP - General Family Medicine 01/17/23 documented as of this encounter
--- OUTSIDE RECORDS SUMMARY | 2023-11-14 01:02 | XMS_ITS | Encounter Summary ---
Author Organization [facility] Address [address] [place] [address], [place] [address] Phone Care Team Providers Care Director Of Student Life Name Role Phone Vandana, Sydnee Ndiaye Primary Care Provider [phone] Reason for Visit * Reason Comments B/L HAMMERTOES PAIN RIGHT FOOT CALLUS/CORN Encounter Details Date Type Department Care Team (Latest Contact Info) Description 07/05/2023 9:30 AM EDT Office Visit [facility] [address] [address] Keyla Martin, DPM [address] [place] [address] Dermatophytosis of nail (Primary Dx); Hammertoe, bilateral; Acquired keratoderma; Onychocryptosis Social History Tobacco Use Types Packs/Day Years Used Date Smoking Tobacco: Never Smokeless Tobacco: Never Comments:My parents were smo kers-I lived with passive smoke from childhood Alcohol Use Standard Drinks/Week Comments Yes 2 (1 standard drink = 0.6 oz pur e alcohol) 4 per week average [facility] Utilities Answer Date Recorded In the past 12 months has e [employer], gas, oil, or water company threatened to [...] How often do you attend chur or yazidism services? More than 4 times per year 03/28/2023 Do you belong to any clubs o r organizations such as hoahaoism groups, unions, fraternal or athletic groups, or [...] Recorded Patient Health Questionnaire-2 Score 1 06/17/2023 [facility] of Occupat ional Health - Occupational Stress [...] as of this encounter Progress Notes * Keyla Martin, RAEGAN - 07/05/2023 9:30 AM EDT Images from the original note were not included. Subjective Patient ID: Gianna Infante is a 77 y.o. female. Chief Complaint: B/L HAMMERTOES PAIN and RIGHT FOOT CALLUS/CORN History of Present Illness The patient, with a history of corns and toenail fungus, presents with a painful lesion on the right third toe and a smaller, painless one on the left third toe. The patient has been self-managing the corns with a pumice stone and bnow-suv-xgguftc creams, but is seeking advice on how to better manage the corns and whether surgery would be a suitable option. The patient also has a history of toenail fungus, which they have been managing with an antifungal cream OTC. The patient reports that the corns are causing discomfort and impacting their daily activities. Current Outpatient Medications: ascorbic yuwl-pxisvhrh-lia (Emergen-C) 1,000 mg powder effervescent in packet, , Disp: , Rfl: atorvastatin (Lipitor) 40 mg tablet, TAKE 1 TABLET BY MOUTH EVERY DAY, Disp: 90 tablet, Rfl: 3 clotrimazole (Lotrimin) 1 % cream, , Disp: , Rfl: EPINEPHrine (Epipen) 0.3 mg/0.3 mL injection syringe, Inject 0.3 mL (0.3 mg) as directed if needed for anaphylaxis. Call 911 after use., Disp: 1 each, Rfl: 0 fluticasone (Flonase) 50 mcg/actuation nasal spray, Administer 2 sprays into each nostril once daily. Shake gently. Before first use, prime pump. After use, clean tip and replace cap., Disp: 16 g, Rfl: 11 ibuprofen 200 mg tablet, , Disp: , Rfl: magnesium 250 mg tablet, , Disp: , Rfl: melatonin 0.5 mg tablet split tablet, , Disp: , Rfl: multivit with minerals/lutein (MULTIVITAMIN 50 PLUS ORAL), , Disp: , Rfl: omega 9-kha-ceu-fish oil 1,000 mg (120 mg-180 mg) capsule, , Disp: , Rfl: polyvinyl alcohol-povidon,PF, (Refresh Classic, PF,) 1.4-0.6 % eye drops in a dropperette, , Disp: , Rfl: zoledronic acid/mannitol-water (RECLAST IV), Infuse into a venous catheter., Disp: , Rfl: ammonium lactate (Amlactin) 12 % cream, Apply topically if needed in the morning and at bedtime fordry skin., Disp: 340 g, Rfl: 2 Allergies Allergen Reactions Bee Venom Protein (Honey Bee) Anaphylaxis Fluoxetine Other reaction(s): Other (See Comments), Other (See Comments) paranoid Paranoid Paranoid Estrogens, Conjugated Hymenoptera Allergenic Extract Serotonin Hallucinations Wasp Venom Trazodone Anxiety Past Medical History Diagnosis Date Anxiety 1951 Arthritis of both hands 06/10/2015 Right > left Cataract 2013 Chronic constipation 08/2021 Chronic neck pain 03/26/2022 Colon polyp 2007 Compression fracture of body of thoracic vertebra ([facility]/HCC) 02/17/2022 Dental disease 1961 Diverticulosis 03/26/2022 Dry eyes 2012 Dysphagia 10/2021 GERD (gastroesophageal reflux disease) Heart murmur 1989 History of basal cell carcinoma (BCC) 06/18/2011 B/w right eye and nose. 06/18/2011-[facility] History of colon polyps 08/09/2018 Hypertension 2020 Insomnia 04/23/2013 Macular degeneration Macular Pucker Macular pucker, left eye 08/09/2012 Memory deficit 02/17/2022 Went to a memory clinic, 05/2021 after 2 hard concussions & decreasing recall, brain scan inconclusive, but forgetting is increasing-this is troublingWent to a memory clinic, 05/2021 after 2 hardconcussions & decreasing recall, brain scan inconclusive, but forgetting is increasing-this is troubling to me. to me. Neuromuscular disorder (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 Nevus of choroid of right eye 06/25/2015 Osteoporosis 2012 Other hyperlipidemia 02/17/2022 Pancreatic lesion 03/26/2022 Pseudophakia, both eyes Situational mixed anxiety and depressive disorder 07/27/2019 Sleep difficulties 1954 Spondylosis of lumbosacral spine without myelopathy 06/27/2008 Thyroid nodule 03/26/2022 Tinnitus Varicose veins 01/13/2011 Past Surgical History: Procedure Laterality Date ADENOIDECTOMY 1951 CATARACT EXTRACTION Bilateral 2020 CE-IOL OU JOINT REPLACEMENT 12/2018 & 05/2021 TONSILLECTOMY 1951 TOTAL KNEE ARTHROPLASTY Bilateral 2017 and 2021 VASCULAR SURGERY 1979?-Varicose vein stripping in both legs Family History Problem Relation Name Age of Onset Alcohol abuse Mother Amaris Infante Arthritis Mother Amaris Infante Depression Mother Amaris Infante Vision loss Mother Amaris Infante Cataracts Mother Amaris Infante Hip fracture Mother Amaris Infante Heart disease Father Hieu Infante Hypertension Father Hieu Infante Vision loss Father Hieu Infante Heart attack Father Hieu Infante Early natural Father Hieu Infante Heart failure Father Hieu Infante Clotting disorder Father Hieu Infante Social History Tobacco Use Smoking status: Never Smokeless tobacco: Never Tobacco comments: My parents were smokers-I lived with passive smoke from childhood Vaping Use Vaping Use: Never used Substance Use Topics Alcohol use: Yes Alcohol/week: 2.0 standard drinks of alcohol Types: 2 Glasses of wine per week Comment: 4 per week average Drug use: Never No surgery found No surgery found No results found for: HGBA1C Objective Ortho Exam There were no vitals taken for this visit. General: No fever, chills, or fatigue. Vascular: Dorsalis Pedis 2+ B/L, Posterior Tibial 2+ B/L, CFT <3 sec x 10, no edema B/L, Negative calf tenderness B/L, negative cyanosis B/L LE Musculoskeletal: Normal gait, no ecchymosis B/L Skin: Distal third toe hyperkeratotic lesion B/L LE, Nails thickened and discolored with mild debris with incurvation of all nails B/L Neurological: Light touch intact B/L LE Psychological: Orientated x3, appropriate mood and affect Image Results: XR Foot 3+ Views Bilateral The following images were reviewed and interpreted by me. 07/05/2023: Right foot: Severe contracture of toes 2 through 5 with varus rotation of toes 3 through 5 with medial deviation of the second toe which is abutting the hallux. Elevation of the first metatarsal with flattening of the first metatarsal head. Degenerative changes to all midfoot joints. Decreased anterior ankle joint space. Moderate plantar calcaneal spur. Left foot: Severe contracture of toes 2 through 5 with varus rotation of toes 3 through 5. Decreased anterior ankle joint space. Assessment/Plan Assessment & Plan Hammer Toe with Callus Formation: Painful callus on right third toe due to hammer toe deformity. Nocurrent pain on left third toe. Discussed conservative management and potential surgical intervention. -Debrided the calluses today. -Use pumice stone or emery board daily when wet. -Prescribe Ammonium Lactate lotion for daily use on callus and bottom of feet. -Consider gel toe covers, particularly for narrow, hard shoes - which was shown today. -Consider shoe size increase for wider, deeper toe box. -If conservative management fails, consider surgical intervention. Onychomycosis: Thickened toenails, possibly due to previous fungal infection. -Continue current regimen of daily scrubbing and application of clotrimazole. -Add daily application of Vicks VapoRub. -Consider prescription antifungal cream if no improvement. Follow-up: Monitor callus and toenails. Return to clinic if condition worsens or changes. If conservative management fails, discuss surgical intervention for hammer toe. Encounter Diagnoses: Dermatophytosis of nail Hammertoe, bilateral Acquired keratoderma Onychocryptosis Orders Placed This Encounter XR Foot 3+ Views Bilateral ammonium lactate (Amlactin) 12 % cream No follow-ups on file. Keyla Martin DPM FACRHONDA Key Account Coordinator of Podiatric Medicine and Surgery [facility] documented in this encounter Plan of Treatment Upcoming Encounters Date Type Department Care Team (Late st Contact Info) Description 01/04/2024 11:20 AM EDT Procedure Visit [facility] [address] [facility] [place] Floor 9 [place] [id number] Katie Jones AUD 01/06/2024 2:00 PM EDT Appointment [facility] [address] [place] [address] 01/09/2024 2:00 PM EDT Office Visit [facility] [address] [facility] [place] 19th Floor [address] [place] [address] Radha Coker MD [address] [place] [address] 01/10/2024 8:30 AM EDT Office Visit [facility] Care [address] [place] [address] Sydnee Ross, [address] [facility] [place] [address] 01/11/2024 10:00 AM EDT Office Visit [facility] - ENT & Facial Plastic Surgery [address] [place] [address] Kat Rico, PATTIE [address] [place] [address] 01/20/2024 11:45 AM EDT Clinical Support [facility] [address] [place] [address] Maria Eugenia Lucero, [facility] [address] [place] [address] 01/30/2024 8:40 AM EST Office Visit [facility] [address] [facility] [place] 15th Floor [address] [place] [address] Jose Moniuqe MD 550 [facility] [place] 15th Floor, [address] [place] [address] 02/27/2024 12:50 PM EST Office Visit [facility] [address] [facility] [address] [place] [address] Kellie Bowser, OD [address], [address] [facility] [place] [address] 06/19/2024 11:30 AM EDT Appointment [facility] [address] [place], [place] [address] 06/19/2024 1:00 PM EDT Appointment [facility] [address] [place], [place] [address] 08/21/2024 1:40 PM EDT Office Visit [facility] at [address] [facility] 3rd [place] [address] Satya Wright PA [address] 3rd [place] [address] 09/05/2024 10:30 AM EDT Office Visit [facility] [address] [place] [address] Tatiana Dominguez NP [address] [address] documented as of this encounter Procedures Procedure Name Priority Date/Time Associated Diagnosis Comments XR FOOT 3+ VIEWS BILATERAL Routine 07/05/2023 9:47 AM EDT Elmira debo documented in this encounter Results * XR Foot 3+ Views Bilateral (07/05/2023 9:47 AM EDT) Anatomical Region Laterality Modality Foot Bilateral Digital Radiogra phy Narrative 07/05/2023 2:25 PM EDT The following images were reviewed and interpreted by me. ??07/05/2023: Right foot: Severe contracture of toes 2 through 5 with varus rotation of toes 3 through 5 with medial deviation of the second toe which is abutting the hallux. ??Elevation of the first metatarsal with flattening of the first metatarsal head. ??Degenerative changes to all midfoot joints. ?? Decreased anterior ankle joint space. ??Moderate plantar calcaneal spur. Left foot: Severe contracture of toes 2 through 5 with varus rotation of toes 3 through 5. Decreased anterior ankle joint space. ?? Keyla Martin DPM IMG XR PROCEDURES documented in this encounter Visit Diagnoses Diagnosis Dermatophytosis of nail- Primary Hammertoe, bilateral Acquired keratoderma Onychocryptosis Ingrowing nail documented in this encounter Additional Health Concerns Assessment Noted Time PHQ-9 Depression Total Score: 0 03/31/19 24 3:16 PM EST A fall risk assessment has been complete d for the patient 07/05/2023 9:40 AM EDT documented as of this encounter Care Teams Director Of Student Life Relationship Specialty Start Date End Date Style, Sydnee Ndiaye DO [address] [facility] [place] [address] PCP - General Family Medicine 01/17/23 documented as of this encounter
--- OUTSIDE RECORDS SUMMARY | 2023-11-14 01:02 | XMS_ITS | Encounter Summary ---
Author Organization [facility] Address [address] [place] [address], [place] [address] Phone Care Team Providers Care Rubber Tile Floor Layer Name Role Phone Vandana, Sydnee Zelda Primary Care Provider [phone] Encounter Details Date Type Department Care Team (Latest Contact Info) Description 07/05/2023 9:30 AM EDT - 07/05/2023 11:59 PM EDT Hospital Encounter [facility] [address] [place] [address] Discharge Disposition: DISCHARGED TO HOME OR SELF CARE (ROUTINE DISCHARGE) Social History Tobacco Use Types Packs/Day Years Used Date Smoking Tobacco: Never Smokeless Tobacco: Never Comments:My parents were smo kers-I lived with passive smoke from childhood Alcohol Use Standard Drinks/Week Comments Yes 2 (1 standard drink = 0.6 oz pur e alcohol) 4 per week average [facility] Utilities Answer Date Recorded In the past 12 months has [employer], gas, oil, or water [employer] threatened to shut off services in your [...] often do you attend chur ch or temple services? More than 4 times per year 03/28/2023 Do you belong to any clubs o r organizations such as restorationist groups, unions, fraternal or athletic groups, or [...] Recorded Patient Health Questionnaire-2 Score 1 06/17/2023 [facility] of Occupat ional [...] skin. 340 g 2 07/05/2023 07/04/2024 ascorbic nimz-vysoxpym-piu (Emergen-C) 1,000 mg powder effervescent in packet Take by mouth once daily. 03/28/2019 atorvastatin (Lipitor) 40 mg tablet TAKE 1 TABLET BY MOUTH EVERY DAY 90 tablet 3 02/10/2023 ibuprofen 200 mg tablet Take by mouth if needed. PRN 03/28/2021 multivit with minerals/lutein (MULTIVITAMIN 50 PLUS ORAL) Take by mouth once daily. 03/28/2022 omega 3-ncg-ckg-fish oil 1,000 mg (120 mg-180 mg) capsule [...] replace cap. 16 g 11 02/16/2023 09/06/2023 magnesium 250 mg tablet 03/28/202108/26 melatonin 0.5 mg tablet split tablet 03/28/2019 09/06/2023 documented as of this encounter Plan of Treatment Upcoming Encounters Date Type Department Care Team (Late st Contact Info) Description 01/04/2024 11:20 AM EDT Procedure Visit [facility] [address] [facility] [place] Floor 9 [place] [address] Katie Jones AUD 01/06/2024 2:00 PM EDT Appointment [facility] [address] [place] [address] 01/09/2024 2:00 PM EDT Office Visit [facility] [address] [facility] [place] 19th [address] [place] [address] Radha Coker MD [address] [place] [address] 01/10/2024 8:30 AM EDT Office Visit [facility] [place] [facility] Care [address] [facility] [address] [place] [address] Sydnee Ross, DO [address] [facility] [place] [address] 01/11/2024 10:00 AM EDT Office Visit [facility] - ENT & [facility]ial Plastic Surgery [address] [place] [address] Kat Rico, PATTIE [address] [place] [address] 01/20/2024 11:45 AM EDT Clinical Support [facility] [address] [facility] [place] [address] Maria Eugenia Lucero, ORA [address] [place] [address] 01/30/2024 8:40 AM EST Office Visit [facility] [address] [facility] [place] 15th [address] [place] [address] Jose Monique MD 550 [facility] [place] 15th Floor, [address] [place] [address] 02/27/2024 12:50 PM EST Office Visit [facility] [address] [facility] [address] [place] [phone] Kellie Bowser, OD [address] [facility] [address], [address] [facility] [place] [address] 06/19/2024 11:30 AM EDT Appointment [facility] [address] [place] [address] 06/19/2024 1:00 PM EDT Appointment [facility] [address] [place] [address] 08/21/2024 1:40 PM EDT Office Visit [facility] at [address] [facility] 3rd [place] [address] Satya Wright PA [address] 3rd [place] [address] 09/05/2024 10:30 AM EDT Office Visit [facility] 12 [facility] [place] [address] Tatiana Dominguez NP [address] [place] [address] [place] [address] documented as of this encounter Procedures Procedure Name Priority Date/Time Associated Diagnosis Comments XR FOOT 3+ VIEWS BILATERAL Routine 07/05/2023 9:47 AM EDT debo Ku documented in this encounter Results * XR [...] PROCEDURES documented in this encounter Visit Diagnoses Not on filedocumented in this encounter Additional Health Concerns Assessment Noted Time PHQ-9 Depression Total Score: 0 03/31/19 24 3:16 PM EST A fall risk assessment has been complete d for the patient 07/05/2023 9:40 AM EDT documented as of this encounter Care Teams Rubber Tile Floor Layer Relationship Specialty Start Date End Date Style, Sydnee Ndiaye DO [address] [facility] [place] [address] PCP - General Family Medicine 01/17/23 documented as of this encounter
--- OUTSIDE RECORDS SUMMARY | 2023-11-14 01:02 | XMS_ITS | Encounter Summary ---
Author Organization [facility] Address [address] [place] [address], [place] [address] Phone Care Team Providers Care Electric Furnace Operator Name Role Phone Style, Sydnee Zelda Primary Care Provider [phone] Reason for Visit * Reason Comments Rib Injury Concern about ribs f racture due to osteoporosis, need x-ray Encounter Details Date Type Department Care Team (Late st Contact Info) Description 07/12/2023 4:20 PM EDT Office Visit [facility] at [address] [place] [address] - Primary Care [address] [place] [address] A Floor 1 [place] [address] Abdirizak Whitman MD [address] [place] [address] A, Fl 1 [facility] at [address] [place] [address] - [place] [place] [address] Chest wall pain (Primary Dx); Osteoporosis, unspecified osteoporosis type, unspecified pathological fracture presence Social History Tobacco Use Types Packs/Day Years Used Date Smoking Tobacco: Never Smokeless Tobacco: Never Comments:My parents were smo kers-I lived with passive smoke from childhood Alcohol Use Standard Drinks/Week Comments Yes 2 (1 standard drink = 0.6 oz pur e alcohol) 4 per week average [facility] Utilities Answer Date Recorded In the past 12 months has e [employer], gas, oil, or water [employer] threatened to shut off services in your [...] How often do you attend chur or anglican services? More than 4 times per year [...] Recorded Patient Health Questionnaire-2 Score 1 06/17/2023 [facility] - Occupational Stress [...] place to sleep or slept in a jail (including now)? No 03/28/2023 Sex and Gender [...] Sign Reading Time Taken Comments Blood Pressure 129/79 07/12/2023 4:27 PM EDT Pulse 62 07/12/2023 4:27 PM EDT Temperature 36.7 ??C (98 ??F) 07/12/2023 4:27 PM EDT Respiratory Rate 16 07/12/2023 4:27 PM EDT Oxygen Saturation - - Inhaled Oxygen Concentration - - Weight 68.9 kg (152 lb) 07/12/2023 4:27 PM EDT Height 177.8 cm (5' 10) 07/12/2023 4:27 PM EDT Body Mass Index 21.81 07/12/2023 4:27 PM EDT documented in this encounter Progress Notes * Abdirizak Whitman MD - 07/12/2023 4:20 PM EDT Subjective Patient ID: Gianna Infante is a 77 y.o. female who presents for Rib Injury (Concern about ribs fracture due to osteoporosis, need x-ray ). Patient of Dr. Ross seeing me today due to availability Ms. Infante was doing resistance exercises with bands and felt fine when she went to sleep on Tuesday night but awakened with rib pain left approximately seventh or eighth rib in the posterior axillary line Hurts to breathe for a day or 2 but now feels better. History of osteoporosis on Reclast Denies any dyspnea. 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 Varicose veins Spondylosis of lumbosacral spine without myelopathy Compression fracture of body of thoracic vertebra (CMS/HCC) Memory deficit Other hyperlipidemia Pseudophakia, both eyes Neuromuscular disorder (CMS/HCC) Hypertension Heart murmur GERD (gastroesophageal reflux disease) Anxiety Myopia of both eyes with astigmatism and presbyopia Thyroid nodule Dysphagia Dyspnea on exertion Chronic neck pain Pancreatic lesion Diverticulosis Lung nodule Low back pain PVD (posterior vitreous detachment), both eyes Central cloudy dystrophy of Kang Dry eye syndrome of both eyes Small airways disease Past Medical History Diagnosis Date Anxiety 1951 Arthritis of both hands 06/10/2015 Right > left Cataract 2012 Chronic constipation 08/2021 Chronic neck pain 03/26/2022 Colon polyp 2008 Compression fracture of body of thoracic vertebra (CMS/HCC) 02/17/2022 Dental disease 1961 Diverticulosis 03/26/2022 Dry eyes 2013 Dysphagia 10/2021 GERD (gastroesophageal reflux disease) Heart murmur 1989 History of basal cell carcinoma (BCC) 06/18/2011 B/w right eye and nose. 06/18/2011-[facility] History of colon polyps 08/09/2018 [...] Hieu Infante Clotting disorder Father Hieu Infante Allergies Allergen Reactions Bee Venom Protein (Honey [...] Vaping Use Vaping Use: Never used Substance and Sexual Activity Alcohol use: Yes Alcohol/week: 2.0 standard drinks of alcohol Types: 2 Glasses of wine per week Comment: 4 per week average Drug use: Never Sexual activity: Not Currently Partners: Male control/protection: Post-menopausal Social Determinants of Health Financial Resource Strain: [...] 50 min Stress: Stress Concern Present (03/28/2023) Citizen Of [place] [facility] - Occupational Stress Questionnaire Feeling of Stress : To some extent Social Connections: Moderately Integrated (03/28/2023) Social Connection and Isolation Panel [NHANES] Frequency of Communication with Friends and Family: Three times a week Frequency of Social Gatherings with Friends and Family: Twice a week Attends Baptism Services: More than 4 times per year [...] Unstable Housing in the Last Year: No Immunization History Administered Date(s) Administered HepB-CpG (HEPLISAV-B) 02/20/2022, 03/24/2022 Influenza, Split (incl. purified surface antigen) 01/19/1993, 01/21/1994, 01/04/1995, 01/14/1996, 01/30/1997, 01/07/1998, 02/09/2001 Influenza, Unspecified 11/26/2014, 12/06/2021 Influenza, seasonal, injectable 01/25/2007, 01/16/2008, 01/16/2009, 01/09/2010, 01/25/2011 Influenza, seasonal, injectable, preservative free 01/24/2012, 01/01/2013, 03/15/2014 MMR 10/31/1991 Moderna SARS-CoV-2 Vaccination 05/16/2020, 06/13/2020, 01/17/2021, 07/16/2021 Moderna Sars-CoV-2 Bivalent Booster Vaccination 07/17/2022 Moderna Sars-cov-2 Vaccination 12yo And Older 12/21/2022, 06/11/2023 Novel [id number] 03/25/2009, 03/25/2009 Pneumococcal Conjugate PCV 20 02/16/2023 Pneumococcal Polysaccharide PPV23 01/25/2011, 02/20/2022 RSV,Recombinant,Protein Subunit RSVpreF, Adjuvant Reconstituted 12/24/2022 TD (adult), 2 Lf tetanus toxoid, preservative free, adsorbed 07/27/2007 Tdap 02/13/2013, 01/07/2023 Zoster, live 03/27/2012 Current Outpatient Medications: ammonium lactate (Amlactin) 12 % cream, Apply topically if needed in the morning and at bedtime fordry skin., Disp: 340 g, Rfl: 2 ascorbic arnr-slgkbbda-dwa (Emergen-C) 1,000 mg powder effervescent in packet, [...] PLUS ORAL), , Disp: , Rfl: omega 4-iyg-gij-fish oil 1,000 mg (120 mg-180 mg) capsule, , Disp: , Rfl: polyvinyl alcohol-povidon,PF, (Refresh Classic, PF,) 1.4-0.6 % eye drops in a dropperette, , Disp: , Rfl: zoledronic acid/mannitol-water (RECLAST IV), Infuse into a venous catheter., Disp: , Rfl: Review of Systems Objective Visit Vitals BP 129/79 (BP Location: Left arm, Patient Position: Sitting, BP Cuff Size: Adult) Pulse 62 Temp 36.7 ??C (98 ??F) (Temporal) Resp 16 Ht 1.778 m (5' 10) Wt 68.9 kg (152 lb) BMI 21.81 kg/m?? OB Status Postmenopausal Smoking Status Never BSA 1.84 m?? Physical Exam Constitutional: Appearance: Normal appearance. Eyes: Conjunctiva/sclera: Conjunctivae normal. Cardiovascular: Rate and Rhythm: Normal rate and regular rhythm. Pulmonary: Effort: Pulmonary effort is normal. Breath sounds: Normal breath sounds. Comments: Small area of possible point tenderness around rib 7 posterior axillary line left. Not impressively point tender but does feel little different pain russo from the surrounding ribs Neurological: General: No focal deficit present. Mental Status: She is alert and oriented to person, place, and time. Psychiatric: Mood and Affect: Mood normal. Behavior: Behavior normal. Lab Results Component Value Date WBC 5.4 09/21/2022 HGB 14.4 09/21/2022 HCT 44.0 (H) 09/21/2022 PLT 244 09/21/2022 CHOL 144 01/05/2023 TRIG 90 01/05/2023 HDL 64 01/05/2023 ALT 49 05/30/2023 AST 38 05/30/2023 NA 138 05/30/2023 K 3.9 05/30/2023 CL 101 05/30/2023 CREATININE 0.51 (L) 05/30/2023 BUN 15 05/30/2023 CO2 28 05/30/2023 TSH 1.49 01/05/2023 INR 0.99 03/11/2022 Assessment/Plan Diagnosis Plan 1. Chest wall pain XR Chest 2 Views Pa + Lat Stnd Protocol XR Ribs 2 Views Left XR Ribs 2 Views Right 2. Osteoporosis, unspecified osteoporosis type, unspecified pathological fracture presence Return as needed report any shortness of breath documented in this encounter Plan of Treatment Upcoming Encounters Date Type Department Care Team (Late st Contact Info) Description 01/04/2024 11:20 AM EDT Procedure Visit [facility] [address] [facility] Medical Office [place] Floor 9 [place] [id number] Katie Jones AUD 01/06/2024 2:00 PM EDT Appointment [facility] [address] [place] [address] 01/09/2024 2:00 PM EDT Office Visit [facility] [address] [facility] Medical Office [place] 19th Floor [address] [place] [address] Radha Coker MD [address] [place] [address] 01/10/2024 8:30 AM EDT Office Visit [facility] [address] [place] [address] Sydnee Ross DO [address] [facility] - [place] [address] 01/11/2024 10:00 AM EDT Office Visit [facility] - ENT & Facial Plastic Surgery [address] [facility] [address] [place] [address] Kat Rico, PA [address] [place] [address] 01/20/2024 11:45 AM EDT Clinical Support [facility] [address] [place] [address] Maria Eugenia Lucero LAC [address] [place] [address] 01/30/2024 8:40 AM EST Office Visit [facility] [address] [facility] [place] 15th Floor [address] [place] [address] Jose Monique MD 550 [facility] Office [place] 15th Floor, [address] [place] [address] 02/27/2024 12:50 PM EST Office Visit [facility] [address] 4 [address] [place] [phone] Kellie Bowser, OD [address], [address] [facility] [place] [address] 06/19/2024 11:30 AM EDT Appointment [place] [address] [address] 06/19/2024 1:00 PM EDT Appointment [place] [address] [address] 08/21/2024 1:40 PM EDT Office Visit [facility] [address] 3rd [place] [address] Satya Wright PA [address] [facility] [address] 3rd [place] [address] 09/05/2024 10:30 AM EDT Office Visit [facility] [address] [place], [place] [id number] Tatiana Dominguez, CHIEF TELEPHONE OPERATOR [address] [place], [place] [id number] documented as of this encounter Results * XR Chest 2 Views Pa + Lat Stnd Protocol (07/13/2023 10:36 AM EDT) Anatomical Region Laterality Modality Chest Digital Radiogra phy 07/13/2023 11:3 4 AM EDT Impressions 07/13/2023 11:35 AM EDT Stable bibasilar atelectasis. Narrative 07/13/2023 11:35 AM EDT EXAM: XR CHEST 2 VIEWS PA + LAT STND PROTOCOL CLINICAL INDICATION: chest pain. ESRC.4.6.1 COMPARISON: 12/31/2021 FINDINGS: Support Devices: None Lungs/Pleura: No pneumothorax. Stable bibasilar atelectasis.. No pleural effusion. Heart/Mediastinum: Normal Bones/Soft tissues: No acute osseous abnormality. Redemonstrated anterior wedge compression deformity of a lower thoracic vertebral. Procedure Note de Gus Morris MD - 07/13/2023 EXAM: XR CHEST 2 VIEWS PA + LAT STND PROTOCOL CLINICAL INDICATION: chest pain. ESRC.4.6.1 COMPARISON: 12/31/2021 FINDINGS: Support Devices: None Lungs/Pleura: No pneumothorax. Stable bibasilar atelectasis.. No pleuraleffusion. Heart/Mediastinum: Normal Bones/Soft tissues: No acute osseous abnormality. Redemonstrated anteriorwedge compression deformity of a lower thoracic vertebral. IMPRESSION: Stable bibasilar atelectasis. Abdiriazk Whitman MD IMG XR PROCEDURES documented in this encounter Visit Diagnoses Diagnosis Chest wall pain- Primary Painful respiration Osteoporosis, unspecified osteoporosis type, unspecified pathological fracture presence Chest wall pain Painful respiration documented in this encounter Additional Health Concerns Assessment Noted Time PHQ-9 Depression Total Score: 0 03/31/19 24 3:16 PM EST A fall risk assessment has been complete d for the patient 07/05/2023 9:40 AM EDT documented as of this encounter Care Teams Electric Furnace Operator Relationship Specialty Start Date End Date Sydnee Ross DO [address] [facility] [place] [address] PCP - General Family Medicine 01/17/23 documented as of this encounter
--- OUTSIDE RECORDS SUMMARY | 2023-11-14 01:02 | XMS_ITS | Encounter Summary ---
Author Organization [facility] Address [address] [place] [address], [place] [address] Phone Care Team Providers Care Senior Ios Developer Name Role Phone Style, Sydnee Ndiaye Primary Care Provider [phone] Reason for Referral * Imaging (Routine) - Authorized Specialty Diagnoses / Procedures Referred By Contac t Referred To Contact Diagnoses Osteoporosis, unspecified osteoporosis type, unspecified pathological fracture presence Procedures Dexa Bone Density Hip/Spine Radha Coker MD [address] [place] [address] Referral ID Status Reason Start Date Expiration Date V isits Requested Visits Authorized [id number] Authorized 06/20/2023 07/19/2024 1 1 Encounter Details Date Type Department Care Team (Late st Contact Info) Description 06/20/2023 Orders Only [address] Medical Office [place] 19th Floor [address] [place] [address] Radha Coker MD [address] [place] [address] Osteoporosis, unspecified osteoporosis type, unspecified pathological fracture presence (Primary Dx) Social History Tobacco Use Types Packs/Day Years Used Date Smoking Tobacco: Never Smokeless Tobacco: Never Comments:My parents were smo kers-I lived with passive smoke Alcohol Use Standard Drinks/Week Comments Yes 2 (1 standard drink = 0.6 oz pur e alcohol) [address] [facility] Utilities Answer Date Recorded In the past 12 months has e [employer] 1[employer]4 [employer], oil, or water [employer] threatened to shut off services in your [...] How often do you attend chur or jehovah's witness services? More than 4 times per year 03/28/2023 Do you belong to any clubs o r organizations such as scientologist groups, unions, fraternal or athletic groups, or [...] Patient Health Questionnaire-2 Score 1 06/17/2023 [facility] of Occupat ional Health - Occupational Stress [...] Procedure Visit [facility] [address] [facility] Medical Office [place] Floor 9 [place] [address] Katie Jones AUD 01/06/2024 2:00 PM EDT Appointment [facility] [address] [place] [address] 01/09/2024 2:00 PM EDT Office Visit [facility] [address] [facility] Medical Office [place] 19th [address] [place] [address] Radha Coker MD [address] [place] [address] 01/10/2024 8:30 AM EDT Office Visit [facility] - Primary [facility] [address] [place] [address] Vandana, Sydnee Ndiaye, [address] [facility] [place] [place] [address] 01/11/2024 10:00 AM EDT Office Visit [facility] - ENT & Facial Plastic Surgery [address] [place] [address] Kat Rico, PATTIE [address] [place] [address] 01/20/2024 11:45 AM EDT Clinical Support [facility] [address] [place] [address] Maria Eugenia Lucero, ORA [address] [place] [address] 01/30/2024 8:40 AM EST Office Visit [facility] [address] [facility] Medical Office [place] 15th Floor [address] [place] [address] Jose Monique MD 550 [facility] Office [place] 15th Floor, [address] [place] [address] 02/27/2024 12:50 PM EST Office Visit [facility] [address] [facility] Floor 4 [address] [place] [phone] Kellie Bowser, OD [address], [address] [facility] [address] 06/19/2024 11:30 AM EDT Appointment [place] [address] [facility] [address] [place] [address] 06/19/2024 1:00 PM EDT Appointment [place] [address] [address] 08/21/2024 1:40 PM EDT Office [facility] [address] 3rd [place] [address] Satya Wright PA [address] [facility] [address] 3rd Floor [place] [id number] 09/05/2024 10:30 AM EDT Office Visit [facility] [address] [place] [address] Tatiana Dominguez, KASH [address] [place] [address] Scheduled Orders Name Type Priority Associated Diagnoses Orde r Schedule Dexa Bone Density Hip/Spine Imaging Routine Osteoporosis, unspecified osteoporosis type, unspecified pathological fracture presence Expected: 06/19/2024, Expires: 06/19/2025 documented as of this encounter Visit Diagnoses Diagnosis Osteoporosis, unspecified osteoporosis type, unspecified pathological fracture presence- Primary documented in this encounter Additional Health Concerns Assessment Noted Time PHQ-9 Depression Total Score: 0 01/04/20 24 3:16 PM EST A fall risk assessment has been complete d for the patient 04/25/2023 2:29 PM EST documented as of this encounter Care Teams Senior Ios Developer Relationship Specialty Start Date End Date Vandana, Sydnee Ndiaye DO [address] [facility] [place] [address] PCP - General Family Medicine 01/17/23 documented as of this encounter
--- OUTSIDE RECORDS SUMMARY | 2023-11-14 01:02 | XMS_ITS | Encounter Summary ---
Author Organization [facility] Address [address] [facility] , [place], [place] [address] Phone Care Team Providers Care Financial Management Consultant Name Role Phone Style, Sydnee Ndiaye DO Primary Care Provider [phone] Encounter Details Date Type Department Care Team (Latest Contact Info) Description 08/02/2023 1:00 PM EDT Clinical Support [facility] [address] [place] [address] Keyla Mccullough, PT, DPT [address] [facility] [address] [facility] [place] [address] Imbalance (Primary Dx) Social History Tobacco Use Types Packs/Day Years Used Date Smoking Tobacco: Never Smokeless Tobacco: Never Comments:My parents were smo kers-I lived with passive smoke from childhood Alcohol Use Standard Drinks/Week Comments Yes 2 (1 standard drink = 0.6 oz pur e alcohol) 4 per week average [facility] Utilities Answer Date Recorded In the past 12 months has [facility] [employer], gas, oil, or water [employer] threatened to shut off services in your [...] How often do you attend chur or orthodoxy services? More than 4 times per year 03/28/2023 Do you belong to any clubs o r organizations such as sikhism groups, unions, fraternal or athletic groups, or [...] Recorded Patient Health Questionnaire-2 Score 0 07/22/2023 [facility] - [...] place to sleep or slept in a halfway (including now)? No 03/28/2023 Sex and Gender Information Value Date Recorded Sex Assigned at Choose not to disclose 06/2023 9:41 PM EDT Gender Identity Female 01/17/2022 5:45 PM EDT Sexual Orientation Choose not to disclose 2023 9:41 PM EDT Job Start Date Occupation Industry Not on file Not on file Not on file documented as of this encounter Progress Notes * Keyla Mccullough, PT, DPT - 08/02/2023 1:00 PM EDT Physical Therapy Follow-up Note Patient Name: Gianna Infante Today's Date: 08/02/2023 Subjective Patient feels like she is overall improving but had a dizziness episode in the parking garage today. She turned quickly getting out of the car and fell back to the car door. Objective Balance confidence (ABC): 56.3% FGA is 15/30 (fall risk is <23/30). Preferred gait speed is 2.15 ft/sec (nl is 2.72 ft/sec) Eyes closed gait= 16.78 sec with left deviation; Backwards gait = 17.8 sec. Added to the patient's HEP and provided an updated handout: - gait with horizontal head turns every 3 steps, 4x20 feet - gait with vertical head turns every 3 steps, 4x20 feet - gait with alternating eyes open x 3 steps and eyes closed x 3 steps, 4x20 feet - Cues to keep feet wide Oculomotor/Positional Testing: Completed with fixation removed: Roll Test L and R - negative for horizontal canal BPPV. Shane-Hallpike test R - negative for posterior canal BPPV. Shane-Hallpike test L - negative for posterior canal BPPV. HIT: negative bilaterally Assessment The patient has decreased balance confidence based on the ABC scale and is at increased risk of falling based on the FGA. She was rechecked for BPPV with negative findings. The patient will benefit from balance and gait training with focus on sensory integration to improve balance and dizziness complaints. Plan mMST and initiate habituation HEP as indicated Keyla Mccullough PT, DPT PT#[id number] Referring provider: Sydnee Ross DO Charges 55 minutes, NMR [id number] x 4 Start time: 1:00pm End time: 1:55pm documented in this encounter Plan of Treatment Upcoming Encounters Date Type Department Care Team (Late st Contact Info) Description 01/04/2024 11:20 AM EDT Procedure Visit [facility] [address] [facility] Medical Office [place] Floor 9 [place] [address] Katie Jones AUD 01/06/2024 2:00 PM EDT Appointment [facility] [address] [place] [address] 01/09/2024 2:00 PM EDT Office Visit [facility] [address] [facility] Medical Office [place] 19th Floor [address] [place] [address] Radha Coker MD [address] [place] [address] 01/10/2024 8:30 AM EDT Office Visit [place] [facility] - Primary Care [address] [place] [address] Vandana, Sydnee Ndiaye, [address] [place] [facility] [place] [address] 01/11/2024 10:00 AM EDT Office Visit [facility] - ENT & Facial Plastic Surgery [address] [place] [address] Kat Rico, PATTIE [address] [place] [address] 01/20/2024 11:45 AM EDT Clinical Support [facility] [address] [place] [address] Maria Eugenia Lucero, [facility] [address] [place] [address] 01/30/2024 8:40 AM EST Office Visit [facility] [address] [facility] Medical Office [place] 15th Floor [address] [place] [address] Jose Monique MD 550 [facility] [place] 15th Floor, [address] [place] [address] 02/27/2024 12:50 PM EST Office Visit [facility] [address] [facility] 4 [address] [place] [phone] Kellie Bowser, OD [address] [facility], [address] [facility] [place] [address] 06/19/2024 11:30 AM EDT Appointment [facility] [address] [place] [address] 06/19/2024 1:00 PM EDT Appointment [facility] [address] [place] [address] 08/21/2024 1:40 PM EDT Office Visit [facility] at [address] [facility] [address] 3rd [place] [address] Satya Wright PA [address] 3rd [place] [address] 09/05/2024 10:30 AM EDT Office Visit [facility] [address] [place] [address] Tatiana Dominguez, KASH [address] [place] [address] documented as of this encounter Visit Diagnoses Diagnosis Imbalance- Primary Abnormality of gait documented in this encounter Additional Health Concerns Assessment Noted Time PHQ-9 Depression Total Score: 0 03/31/19 24 3:16 PM EST A fall risk assessment has been complete d for the patient 07/22/2023 11:36 AM EDT documented as of this encounter Care Teams Financial Management Consultant Relationship Specialty Start Date End Date Vandana, Sydnee Ndiaye DO [address] [place] [facility] [place] [address] PCP - General Family Medicine 01/17/23 documented as of this encounter
--- OUTSIDE RECORDS SUMMARY | 2023-11-14 01:02 | XMS_ITS | Encounter Summary ---
Author Organization [facility] Address [address] [facility] , [place], [place] [address] Phone Care Team Providers Care Combatant Diver Officer Name Role Phone Style, Sydnee Zelda Primary Care Provider [phone] Encounter Details Date Type Department Care Team (Late st Contact Info) Description 07/29/2023 Telephone [facility] at [address] [facility] A 3rd [place] [address] Niyah Marrero Social History Tobacco Use Types Packs/Day Years Used Date Smoking Tobacco: Never Smokeless Tobacco: Never Comments:My parents were smo kers-I lived with passive smoke from childhood Alcohol Use Standard Drinks/Week Comments Yes 2 (1 standard drink = 0.6 oz pur e alcohol) 4 per week average [facility] Utilities Answer Date Recorded In the past 12 months has e electric, gas, oil, or water [employer] threatened to shut off services in your [...] often do you attend chur ch or oriental orthodox services? More than 4 times per year 03/28/2023 Do you belong to any clubs o r organizations such as alevism groups, unions, fraternal or athletic groups, or [...] Recorded Patient Health Questionnaire-2 Score 0 07/22/2023 [facility] - Occupational Stress Questionnaire Answer Date [...] to sleep or slept in a senior living (including now)? No 03/28/2023 Sex and Gender [...] encounter Miscellaneous Notes * Telephone Encounter - Niyah Marrero - 07/29/2023 3:52 PM EDT Rx resent to back to [facility] as patient requested. Niyah Marrero RN * Telephone Encounter - Niyah Marrero - 07/29/2023 3:50 PM EDT ----- Message from Gianna Infante sent at 07/29/2023 3:14 PM EDT ----- Regarding: Wixela inhaler rejected Contact: Please send the prescription for the Wixela inhaler to [facility] at [address] [place] [address] . I drove to the [facility] again and when they checked the details on the Good RX coupon that Dr. Monique found, it is for [facility]. [employer] would not honor the [facility] coupon. Thank you, Gianna Infante [place], [place] documented in this encounter Plan of Treatment Upcoming Encounters Date Type Department Care Team (Late st Contact Info) Description 01/04/2024 11:20 AM EDT Procedure Visit [facility] [address] [facility] Medical Office [place] Floor 9 [place] [address] Katie Jones AUD 01/06/2024 2:00 PM EDT Appointment [facility] [address] [place] [address] 01/09/2024 2:00 PM EDT Office Visit [facility] [address] [facility] Medical Office [place] 19th Floor [address] [place] [address] Radha Coker MD 550 [place] [address] 01/10/2024 8:30 AM EDT Office Visit [facility] Care [address] [place] [address] Vandana, Sydnee Ndiaye DO [address] [facility] [place] [address] 01/11/2024 10:00 AM EDT Office Visit [facility] ENT & [facility]ial Plastic Surgery [address] [facility] [address] [place] [address] Kat Rico PA [address] [place] [address] 01/20/2024 11:45 AM EDT Clinical Support [facility] [address] [facility] [address] [address] Maria Eugenia Lucero LAC [address] [place] [address] 01/30/2024 8:40 AM EST Office Visit [facility] [address] [facility] [place] 15th Floor [address] [place] [address] Jose Monique MD 550 [facility] Office [place] 15th Floor, [address] [place] [address] 02/27/2024 12:50 PM EST Office Visit [facility] [address] [facility] Floor 4 [address] [place] [phone] Kellie Bowser, OD [address] [facility] Fl 4, [address] [facility] [place] [address] 06/19/2024 11:30 AM EDT Appointment [place] [address] [address] 06/19/2024 1:00 PM EDT Appointment [place] [address] [address] 08/21/2024 1:40 PM EDT Office Visit [facility] [address] 3rd [place] [address] Satya Wright PA [address] [facility] 3rd [place] [address] 09/05/2024 10:30 AM EDT Office Visit [facility] [address] [place] [address] Tatiana Dominguez, KASH [address] [place] [address] documented as of this encounter Visit Diagnoses Not on filedocumented in this encounter Additional Health Concerns Assessment Noted Time PHQ-9 Depression Total Score: 0 03/31/19 24 3:16 PM EST A fall risk assessment has been complete d for the patient 07/22/2023 11:36 AM EDT documented as of this encounter Care Teams Combatant Diver Officer Relationship Specialty Start Date End Date Style, Sydnee Ndiaye DO [address] [facility] [address] [facility] [place] [address] PCP - General Family Medicine 01/17/23 documented as of this encounter
--- OUTSIDE RECORDS SUMMARY | 2023-11-14 01:02 | XMS_ITS | Encounter Summary ---
Author Organization [facility] Address [address] [place] [address], [place] [address] Phone Care Team Providers Care Library Monitor Name Role Phone Sydnee Ross DO Primary Care Provider [phone] Reason for Visit * Reason Comments Dizziness Encounter Details Date Type Department Care Team (Late st Contact Info) Description 07/22/2023 11:45 AM EDT Office Visit [facility] Care [address] [place] [address] Sydnee Ross DO [address] [facility] [place] [address] Benign paroxysmal positional vertigo due to bilateral vestibular disorder (Primary Dx) Social History Tobacco Use Types Packs/Day Years Used Date Smoking Tobacco: Never Smokeless Tobacco: Never Comments:My parents were smo kers-I lived with passive smoke from childhood Alcohol Use Standard Drinks/Week Comments Yes 2 (1 standard drink = 0.6 oz pur e alcohol) 4 per week average [facility] Utilities Answer Date Recorded In the past 12 months has [employer], gas, oil, or water company threatened [...] How often do you attend chur or jew services? More than 4 times per year 03/28/2023 Do you belong to any clubs o r organizations such as christian groups, unions, fraternal or athletic groups, or [...] Recorded Patient Health Questionnaire-2 Score 0 07/22/2023 [facility] Occupat ional Health - Occupational Stress [...] place to sleep or slept in a intermediate (including now)? No 03/28/2023 Sex and Gender [...] Sign Reading Time Taken Comments Blood Pressure 120/70 07/22/2023 11:37 AM EDT Pulse 68 07/22/2023 11:37 AM EDT Temperature 36.6 ??C (97.9 ??F) 07/22/2023 11:37 AM E DT Respiratory Rate 16 07/22/2023 11:37 AM EDT Oxygen Saturation 97% 07/22/2023 11:37 AM EDT Inhaled Oxygen Concentration - - Weight 69.1 kg (152 lb 6.4 oz) 07/22/2023 11:37 AM EDT Height 176.5 cm (5' 9.5) 07/22/2023 11:37 AM ED T Body Mass Index 22.18 07/22/2023 11:37 AM EDT documented in this encounter Progress Notes * Vandana, Sydnee Ndiaye DO - 07/22/2023 11:45 AM EDT Subjective Patient ID: Gianna Infante is a 77 y.o. female who presents for Dizziness. HPI Tuesday started to have lightheaded/dizziness. Only new medicine magnesium 400mg. Was having diarrhea. Dizziness started thereafter. Chronic neck pain, feels worsened. Feeling fatigued. Diarrhea resolved. Feels like room is moving. Worse with head movement up and down side to side. Denies ABEL, acute vision changes. Hx tinnitus. No worsening hearing loss. No lightheadedness syncope cp. Review of Systems All other systems reviewed and are negative. Visit Vitals BP 120/70 (BP Location: Left arm, Patient Position: Sitting, BP Cuff Size: Adult) Pulse 68 Temp 36.6 ??C (97.9 ??F) (Temporal) Resp 16 Objective Physical Exam Constitutional: Appearance: Normal appearance. HENT: Head: Normocephalic and atraumatic. Right Ear: Tympanic membrane, ear canal and external ear normal. Left Ear: Tympanic membrane, ear canal and external ear normal. Nose: Nose normal. Mouth/Throat: Mouth: Mucous membranes are moist. Pharynx: Oropharynx is clear. No oropharyngeal exudate or posterior oropharyngeal erythema. Eyes: Extraocular Movements: Extraocular movements intact. Conjunctiva/sclera: Conjunctivae normal. Pupils: Pupils are equal, round, and reactive to light. Comments: No nystagmus Cardiovascular: Rate and Rhythm: Normal rate and regular rhythm. Pulmonary: Effort: Pulmonary effort is normal. Breath sounds: Normal breath sounds. Musculoskeletal: General: No deformity. Cervical back: Neck supple. Lymphadenopathy: Cervical: No cervical adenopathy. Neurological: Mental Status: She is alert. Cranial Nerves: No cranial nerve deficit. Sensory: No sensory deficit. Motor: No weakness. Coordination: Coordination normal. Gait: Gait normal. Comments: Pos nick hallpike R>L Assessment/Plan 1. Benign paroxysmal positional vertigo due to bilateral vestibular disorder Sx c/w bppv. Pos nick hallpike, otherwise normal neurologic exam. Recommend home Kev maneuver, information provided to patient. Start as needed meclizine as below - meclizine (Antivert) 25 mg tablet; Take 1 tablet (25 mg) by mouth if needed in the morning, at noon, and at bedtime for dizziness. Dispense: 30 tablet; Refill: 0 documented in this encounter Plan of Treatment Upcoming Encounters Date Type Department Care Team (Late st Contact Info) Description 01/04/2024 11:20 AM EDT Procedure Visit [facility] [address] [facility] Medical Office [place] Floor 9 [place] [phone] Katie Jones AUD 01/06/2024 2:00 PM EDT Appointment [facility] [address] [place], [place] [id number] 01/09/2024 2:00 PM EDT Office Visit [facility] [address] [facility] Medical Office [place] 19th Floor [address] [place] [address] Radha Coker MD 550 [place] [address] 01/10/2024 8:30 AM EDT Office Visit [facility] [address] [place] [address] Sydnee Ross DO [address] [facility] [place] [address] 01/11/2024 10:00 AM EDT Office Visit [facility] - ENT & Facial Plastic Surgery [address] [facility] [address] [place] [address] Kat Rico, PA [address] [place] [phone] 01/20/2024 11:45 AM EDT Clinical Support [facility] [address] [place] [address] Maria Eugenia Lucero LAC [address] [place] [address] 01/30/2024 8:40 AM EST Office Visit [facility] [address] [facility] [place] 15th Floor [address] [place] [address] Jose Monique MD 550 [facility] Office [place] 15th Floor, [address] [place] [address] 02/27/2024 12:50 PM EST Office Visit [facility] [address] [facility] Floor 4 [address] [place] [phone] Kellie Bowser, OD [address] [facility] [address], [address] [facility] [place] [address] 06/19/2024 11:30 AM EDT Appointment [place] [address] [address] 06/19/2024 1:00 PM EDT Appointment [place] [address] [address] 08/21/2024 1:40 PM EDT Office Visit [facility] [address] 3rd [place] [address] Satya Wright PA [address] [facility] [address] 3rd [place] [address] 09/05/2024 10:30 AM EDT [facility] [address] [place] [address] Tatiana Dominguez, CLOTHES WRINGER [address] [place] [address] documented as of this encounter Visit Diagnoses Diagnosis Benign paroxysmal positional vertigo due to bilateral vestibular disorder- Primary documented in this encounter Additional Health Concerns Assessment Noted Time PHQ-9 Depression Total Score: 0 03/31/19 24 3:16 PM EST A fall risk assessment has been complete d for the patient 07/22/2023 11:36 AM EDT documented as of this encounter Care Teams Library Monitor Relationship Specialty Start Date End Date Vandana, Sydnee Ndiaye DO [address] [place] [facility] [place] [address] PCP - General Family Medicine 01/17/23 documented as of this encounter
--- OUTSIDE RECORDS SUMMARY | 2023-11-14 01:02 | XMS_ITS | Encounter Summary ---
Author Organization [facility] Address [address] [place] [address], [place] [address] Phone Care Team Providers Care Sales Agent Name Role Phone Sydnee Ross DO Primary Care Provider [phone] Reason for Visit * Reason Onset Date Comments Dizziness 07/21/2023 Encounter Details Date Type Department Care Team (Late st Contact Info) Description 07/21/2023 Nurse Triage [facility] [place] [facility] [address] [place] [address] Sydnee Ross DO [address] [facility] [place] [address] Social History Tobacco Use Types Packs/Day Years Used Date Smoking Tobacco: Never Smokeless Tobacco: Never Comments:My parents were smo kers-I lived with passive smoke from childhood Alcohol Use Standard Drinks/Week Comments Yes 2 (1 standard drink = 0.6 oz pur e alcohol) 4 per week average [facility] Utilities Answer Date Recorded In the past [...] How often do you attend chur or jainism services? More than 4 times per year 03/28/2023 Do you belong to any clubs o r organizations such as jew groups, unions, fraternal or athletic groups, or [...] Recorded Patient Health Questionnaire-2 Score 0 07/22/2023 [facility] [place] of Occupat ional Health - Occupational Stress [...] place to sleep or slept in a care home (including now)? No 03/28/2023 Sex and [...] encounter Miscellaneous Notes * Telephone Encounter - Sydnee Ross DO - 07/21/2023 1:56 PM EDT Noted, will evaluate tomorrow * Telephone Encounter - Laura Maloney - 07/21/2023 1:32 PM EDTFrom: Gianna Infante To: Sydnee Ross DO Sent: 07/21/2023 10:40 AM EDT Subject: magnesium reaction/prolonged dizziness Panteralo Dr. Ross. Can I get a referral or come to your office for a blood test or urine test? A weekago I took a 400 MG Magnesium pill as part of my daily vitamins/minerals. This was the first time taking a large dose pill. Within an hour I had strong diarrhea and dizziness. I hydrated a lot, felt better but woke up the next day very dizzy. I called the Poison Control number and they advised me to hydrate. I still feel very dizzy off and on. I'm not hydrating as much, because I think I was flushing out good nutrients too. Thank you, Gianna Sherman documented in this encounter Plan of Treatment Upcoming Encounters Date Type Department Care Team (Late st Contact Info) Description 01/04/2024 11:20 AM EDT Procedure Visit [facility] 550 [facility] [place] Floor 9 [place] [address] Katie Jones, LISA 01/06/2024 2:00 PM EDT Appointment [facility] [address] [place] [address] 01/09/2024 2:00 PM EDT Office Visit [facility] 550 [facility] [place] 19th Floor [address] [place] [address] Radha Coker MD [address] [address] [id number] 01/10/2024 8:30 AM EDT Office Visit [facility] [place] [facility] [address] [place] [address] Sydnee Ross, DO [address] [facility] [place] [facility] [place] [address] 01/11/2024 10:00 AM EDT Office Visit [facility] - ENT & Facial Plastic Surgery [address] [place] [address] Kat Rico, PATTIE [address] [place] [address] 01/20/2024 11:45 AM EDT Clinical Support [facility] [address] [place] [address] aMria Eugenia Lucero, [facility] [address] [place] [address] 01/30/2024 8:40 AM EST Office Visit [facility] [address] [facility] [place] 15th [address] [place] [address] Jose Monique MD 550 [facility] [place] 15th Floor, [address] [place] [address] 02/27/2024 12:50 PM EST Office Visit [facility] [address] [facility] Floor 4 [address] [place] [address] Kellie Bowser, OD [address], [address] [facility] [place] [address] 06/19/2024 11:30 AM EDT Appointment [facility] [address] [facility] [address] [place] [address] 06/19/2024 1:00 PM EDT Appointment [facility] [address] [facility] [address] [place] [address] 08/21/2024 1:40 PM EDT Office Visit [facility] [address] [facility] [address] [facility] [address] 3rd [place] [address] Satya Wright PA [address] 3rd [place] [address] 09/05/2024 10:30 AM EDT Office Visit [facility] [address] [place] [address] Tatiana Dominguez NP [address] [place] [address] documented as of this encounter Visit Diagnoses Not on filedocumented in this encounter Additional Health Concerns Assessment Noted Time PHQ-9 Depression Total Score: 0 03/31/19 24 3:16 PM EST A fall risk assessment has been complete d for the patient 07/05/2023 9:40 AM EDT documented as of this encounter Care Teams Sales Agent Relationship Specialty Start Date End Date Vandana, Sydnee Ndiaye DO [address] [place] [facility] [place] [address] PCP - General Family Medicine 01/17/23 documented as of this encounter
--- OUTSIDE RECORDS SUMMARY | 2023-11-14 01:02 | XMS_ITS | Encounter Summary ---
Author Organization [facility] Address [address] [place] [address], [place] [address] Phone Care Team Providers Care Clinical Editor Name Role Phone Style, Sydnee Zelda Primary Care Provider [phone] Encounter Details Date Type Department Care Team (Latest Contact Info) Description 07/13/2023 10:12 AM EDT - 07/13/2023 11:59 PM EDT Hospital Encounter [facility] [place] [facility] [place] [address] Chest wall pain Discharge Disposition: DISCHARGED TO HOME OR SELF CARE (ROUTINE DISCHARGE) Social History Tobacco Use Types Packs/Day Years Used Date Smoking Tobacco: Never Smokeless Tobacco: Never Comments:My parents were smo kers-I lived with passive smoke from childhood Alcohol Use Standard Drinks/Week Comments Yes 2 (1 standard drink = 0.6 oz pur e alcohol) [address] [facility] Utilities Answer Date Recorded In the past 12 months has e [employer] gas, oil, or water [employer] threatened to shut off services in your [...] How often do you attend chur or adventist services? More than 4 times per year [...] Recorded Patient Health Questionnaire-2 Score 0 07/22/2023 [facility] of Occupat ional Health - Occupational [...] skin. 340 g 2 07/05/2023 07/04/2024 ascorbic tzhl-byazuvdy-ojm (Emergen-C) 1,000 mg powder effervescent in packet Take by mouth once daily. 03/28/2019 atorvastatin (Lipitor) 40 mg tablet TAKE 1 TABLET BY MOUTH EVERY DAY 90 tablet 3 02/10/2023 ibuprofen 200 mg tablet Take by mouth if needed. PRN 03/28/2021 multivit with minerals/lutein (MULTIVITAMIN 50 PLUS ORAL) Take by mouth once daily. 03/28/2022 omega 9-wax-zfu-fish oil 1,000 mg (120 mg-180 mg) capsule [...] Description 01/04/2024 11:20 AM EDT Procedure Visit [facility] 550 [facility] Medical Office [place] Floor 9 [place] [address] Katie Jones AUD 01/06/2024 2:00 PM EDT Appointment [place] [address] [place] [address] 01/09/2024 2:00 PM EDT Office Visit [facility] 550 [facility] Medical Office [place] 19th Floor [address] [place] [address] Radha Coker MD 550 [place] [address] 01/10/2024 8:30 AM EDT [facility] [address] [facility] [address] [place] [address] Style, Sydnee Ndiaye, DO [address] [facility] [place] [address] 01/11/2024 10:00 AM EDT Office Visit [facility] - ENT & Facial Plastic Surgery [address] [place] [address] Kat Rico, PATTIE [address] [place] [address] 01/20/2024 11:45 AM EDT Clinical Support [facility] [address] [address] Maria Eugenia Lucero, [facility] [address] [place] [address] 01/30/2024 8:40 AM EST Office Visit [facility] [address] [facility] [place] 15th [address] [place] [address] Jose Monique MD 550 [facility] Office [place] 15th Floor, [address] [place] [address] 02/27/2024 12:50 PM EST Office Visit [facility] [address] 4 [address] [place] [phone] Kellie Bowser, OD [address], [address] [facility] [place] [address] 06/19/2024 11:30 AM EDT Appointment [facility] [address] [place] [address] 06/19/2024 1:00 PM EDT Appointment [facility] [address] [place] [address] 08/21/2024 1:40 PM EDT Office Visit [facility] at [address] [facility] [address] 3rd [place] [address] Satya Wright PA [address] 3rd [place] [address] 09/05/2024 10:30 AM EDT Office Visit [facility] [address] [place] [address] Tatiana Dominguez NP [address] [place] [address] documented as of this encounter Procedures Procedure Name Priority Date/Time Associated Diagnosis Comments XR RIBS 3 VIEWS BILATERAL Routine 07/13/2023 10:48 AM EDT Chest wall pain documented in this encounter Results * XR Ribs 3 Views Bilateral (07/13/2023 10:48 AM EDT) Anatomical Region Laterality Modality Chest Bilateral Digital Radiogra phy 07/14/2023 9:07 AM EDT Impressions 07/14/2023 2:25 PM EDT No rib fracture. No acute abnormality. ?? The images were reviewed and interpreted by Sudhir Damon MD. Narrative 07/14/2023 2:25 PM EDT EXAM: XR RIBS 3 VIEWS BILATERAL CLINICAL INDICATION: chest pain. COMPARISON: None. FINDINGS: Ribs: No displaced rib fracture. Remaining Bones: No other fracture or dislocation. Heart/Mediastinum: ??Normal. ?? Lungs/Pleura: ??No pulmonary edema. No airspace opacity. No pleural effusion or pneumothorax. Hyperexpanded lungs. Procedure Note Sudhir Damon MD - 07/14/2023 EXAM: XR RIBS 3 VIEWS BILATERAL CLINICAL INDICATION: chest pain. COMPARISON: None. FINDINGS: Ribs: No displaced rib fracture. Remaining Bones: No other fracture or dislocation. Heart/Mediastinum: Normal. Lungs/Pleura: No pulmonary edema. No airspace opacity. No pleuraleffusion or pneumothorax. Hyperexpanded lungs. IMPRESSION: No rib fracture. No acute abnormality. The images were reviewed and interpreted by Sudhir Damon MD. Abdirizak Whitman MD IMG XR PROCEDURES documented in this encounter Visit Diagnoses Diagnosis Chest wall pain Painful respiration documented in this encounter Additional Health Concerns Assessment Noted Time PHQ-9 Depression Total Score: 0 03/31/19 24 3:16 PM EST A fall risk assessment has been complete d for the patient 07/05/2023 9:40 AM EDT documented as of this encounter Care Teams Clinical Editor Relationship Specialty Start Date End Date Vandana, Sydnee Ndiaye DO [address] [facility] [place] [address] PCP - General Family Medicine 01/17/23 documented as of this encounter
--- OUTSIDE RECORDS SUMMARY | 2023-11-14 01:02 | XMS_ITS | Encounter Summary ---
Author Organization [facility] Address [address] [place], [place], [place] [address] Phone Care Team Providers Care Hyperbaric Nurse Name Role Phone Vandana, Sydnee Zelda Primary Care Provider [phone] Encounter Details Date Type Department Care Team (Late st Contact Info) Description 07/28/2023 Orders Only [facility] [address] [facility] [place] 15th Floor [address] [place] [address] Shama Ames Social History Tobacco Use Types Packs/Day Years Used Date Smoking Tobacco: Never Smokeless Tobacco: Never Comments:My parents were smo kers-I lived with passive smoke from childhood Alcohol Use Standard Drinks/Week Comments Yes 2 (1 standard drink = 0.6 oz pur e alcohol) 4 per week average [facility] Utilities Answer Date Recorded In the past 12 months has [employer], gas, oil, or water [employer] threatened to shut off services in your [...] often do you attend chur ch or bahai services? More than 4 times per year 03/28/2023 Do you belong to any clubs o r organizations such as baptism groups, unions, fraternal or athletic groups, or [...] Recorded Patient Health Questionnaire-2 Score 0 07/22/2023 [facility] Questionnaire Answer Date Recorded [...] 01/04/2024 11:20 AM EDT Procedure Visit [facility] [address] [facility] [place] Floor 9 [place] [address] Katie Jones AUD 01/06/2024 2:00 PM EDT Appointment [facility] [address] [place] [address] 01/09/2024 2:00 PM EDT Office Visit [facility] [address] [facility] [place] 19th Floor [address] [place] [address] Radha Coker MD 550 [place] [address] 01/10/2024 8:30 AM EDT Office Visit [facility] - Primary Care [address] [place] [address] Vandana, Sydnee Ndiaye DO [address] [facility] [place] [address] 01/11/2024 10:00 AM EDT Office Visit [facility] - ENT & Facial Plastic Surgery [address] [place] [address] Kat Rico, PATTIE [address] [place] [address] 01/20/2024 11:45 AM EDT Clinical Support [facility] [address] [place] [address] Maria Eugenia Lucero, ORA [address] [place] [address] 01/30/2024 8:40 AM EST Office Visit [facility] [address] [facility] [place] 15th [address] [place] [address] Jose Monique MD 550 [facility] [place] 15th Floor, [address] [place] [address] 02/27/2024 12:50 PM EST Office Visit [facility] [address] 4 [address] [place] [address] Kellie Bowser, OD [address], [address] [facility] [place] [address] 06/19/2024 11:30 AM EDT Appointment [facility] [address] [facility] [address] [place] [address] 06/19/2024 1:00 PM EDT Appointment [facility] [address] [facility] [address] [place] [address] 08/21/2024 1:40 PM EDT Office Visit [facility] at [address] [facility] [address] 3rd [place] [address] Satya Wright PA [address] 3rd [place] [address] 09/05/2024 10:30 AM EDT Office Visit [facility] [address] [place] [address] Tatiana Dominguez, KASH [address] [place] [address] documented as of this encounter Visit Diagnoses Not on filedocumented in this encounter Additional Health Concerns Assessment Noted Time PHQ-9 Depression Total Score: 0 03/31/19 24 3:16 PM EST A fall risk assessment has been complete d for the patient 07/22/2023 11:36 AM EDT documented as of this encounter Care Teams Hyperbaric Nurse Relationship Specialty Start Date End Date Vandana, Sydnee Ndiaye DO [address] [facility] [address] [place] [facility] [place] [address] PCP - General Family Medicine 01/17/23 documented as of this encounter
--- OUTSIDE RECORDS SUMMARY | 2023-11-14 01:02 | XMS_ITS | Encounter Summary ---
Author Organization [facility] Address [address] [place] [address], [place] [address] Phone Care Team Providers Care Public Policy Associate Name Role Phone Style, Sydnee Zelda Primary Care Provider [phone] Encounter Details Date Type Department Care Team (Latest Contact Info) Description 07/13/2023 10:12 AM EDT - 07/13/2023 11:59 PM EDT Hospital Encounter [facility] [place] [address] [facility] [place] [address] Chest wall pain Discharge Disposition: DISCHARGED TO HOME OR SELF CARE (ROUTINE DISCHARGE) Social History Tobacco Use Types Packs/Day Years Used Date Smoking Tobacco: Never Smokeless Tobacco: Never Comments:My parents were smo kers-I lived with passive smoke from childhood Alcohol Use Standard Drinks/Week Comments Yes 2 (1 standard drink = 0.6 oz pur e alcohol) 4 per week average [facility] Utilities Answer Date Recorded In the past 12 months has e [employer], gas, oil, or water [employer] threatened to shut off services in your [...] How often do you attend chur or hoahaoism services? More than 4 times per year [...] Recorded Patient Health Questionnaire-2 Score 0 07/22/2023 [facility] of Occupat ional Health - [...] skin. 340 g 2 07/05/2023 07/04/2024 ascorbic ipto-dzonkdpd-vcp (Emergen-C) 1,000 mg powder effervescent in packet Take by mouth once daily. 03/28/2019 atorvastatin (Lipitor) 40 mg tablet TAKE 1 TABLET BY MOUTH EVERY DAY 90 tablet 3 02/10/2023 ibuprofen 200 mg tablet Take by mouth if needed. PRN 03/28/2021 multivit with minerals/lutein (MULTIVITAMIN 50 PLUS ORAL) Take by mouth once daily. 03/28/2022 omega 6-nme-yei-fish oil 1,000 mg (120 mg-180 mg) capsule [...] 03/28/2019 09/06/2023 documented as of this encounter Miscellaneous Notes * Result Encounter Note - Abdirizak Whitman MD - 07/13/2023 10:30 AM EDT No fracture seen on plain chest X ray - waiting for rib detail film results. Hope you are feeling better! Abdirizak Whitman MD documented in this encounter Plan of Treatment Upcoming Encounters Date Type Department Care Team (Late st Contact Info) Description 01/04/2024 11:20 AM EDT Procedure Visit [facility] [address] [facility] Medical Office [place] Floor 9 [place] [address] Katie Jones AUD 01/06/2024 2:00 PM EDT Appointment [facility] [address] [place] [address] 01/09/2024 2:00 PM EDT Office [facility] [address] [facility] Medical Office [place] 19th Floor [address] [place] [address] Radha Coker MD 550 [place] [address] 01/10/2024 8:30 AM EDT Office Visit [facility] - Primary [facility] [address] [place] [address] Style, Sydnee Ndiaye, DO [address] [facility] - [place] [address] 01/11/2024 10:00 AM EDT Office Visit [facility] - ENT & Facial Plastic Surgery [address] [place] [address] Kat Rico, PATTIE [address] [place] [address] 01/20/2024 11:45 AM EDT Clinical Support [facility] [address] [place] [address] Maria Eugenia Lucero, [facility] [address] [place] [address] 01/30/2024 8:40 AM EST Office [facility] [address] [facility] Medical Office [place] 15th Floor [address] [place] [address] Jose Monique MD 550 [facility] Office [place] 15th Floor, [address] [place] [address] 02/27/2024 12:50 PM EST Office Visit [facility] [address] [place] [address] Kellie Bowser, OD [address] [facility] [place] [address] 06/19/2024 11:30 AM EDT Appointment [facility] [address] [place] [address] 06/19/2024 1:00 PM EDT Appointment [facility] [address] [place] [address] 08/21/2024 1:40 PM EDT Office Visit [facility] at [address] [facility] [address] 3rd [place] [address] Satya Wright PA [address] 3rd [place] [address] 09/05/2024 10:30 AM EDT Office Visit [address] [place] [address] Tatiana Dominguez, KASH [address] [facility] [address] [facility] [address] [place] [address] documented as of this encounter Procedures Procedure Name Priority Date/Time Associated Diagnosis Comments XR CHEST 2 VIEWS PA + LAT STND PROTOCOL Routine 07/13/2023 10:36 AM EDT Chest wall pain documented in this encounter Results * XR Chest 2 [...] of a lower thoracic vertebral. Procedure Note Gus Weaver MD - 07/13/2023 EXAM: XR CHEST 2 VIEWS PA + LAT STND PROTOCOL CLINICAL INDICATION: chest pain. [id number] COMPARISON: 12/31/2021 FINDINGS: Support Devices: None Lungs/Pleura: No pneumothorax. Stable bibasilar atelectasis.. No pleuraleffusion. Heart/Mediastinum: Normal Bones/Soft tissues: No acute osseous abnormality. Redemonstrated anteriorwedge compression deformity of a lower thoracic vertebral. IMPRESSION: Stable bibasilar atelectasis. Abdirizak Whitman MD IMG XR PROCEDURES documented in this encounter Visit Diagnoses Diagnosis Chest wall pain Painful respiration documented in this encounter Additional Health Concerns Assessment Noted Time PHQ-9 Depression Total Score: 0 03/31/19 24 3:16 PM EST A fall risk assessment has been complete d for the patient 07/05/2023 9:40 AM EDT documented as of this encounter Care Teams Public Policy Associate Relationship Specialty Start Date End Date Vandana, Sydnee Ndiaye DO [address] [place] [facility] - [place] [address] PCP - General Family Medicine 01/17/23 documented as of this encounter
--- OUTSIDE RECORDS SUMMARY | 2023-11-14 01:02 | XMS_ITS | Encounter Summary ---
Author Organization [facility] Address [address] [place] [address], [place] [address] Phone Care Team Providers Care Packaging Sales Representative Name Role Phone Style, Sydnee Zelda Primary Care Provider [phone] Encounter Details Date Type Department Care Team (Latest Contact Info) Description 07/13/2023 10:12 AM EDT - 07/13/2023 11:59 PM EDT Hospital Encounter [facility] [place] [id number] [facility] [address] Chest wall pain Discharge Disposition: [...] In the past 12 months has e [employer], gas, oil, or water [employer] threatened to shut off services in your [...] How often do you attend chur or latter-day services? More than 4 times per year 03/28/2023 Do you belong to any clubs o r organizations such as jewish groups, unions, fraternal or athletic groups, or [...] Recorded Patient Health Questionnaire-2 Score 0 07/22/2023 [facility] of Occupat ional Health [...] place to sleep or slept in a custodial (including now)? No 03/28/2023 Sex and Gender [...] skin. 340 g 2 07/05/2023 07/04/2024 ascorbic ldzu-duecfkvn-sik (Emergen-C) 1,000 mg powder effervescent in packet Take by mouth once daily. 03/28/2019 atorvastatin (Lipitor) 40 mg tablet TAKE 1 TABLET BY MOUTH EVERY DAY 90 tablet 3 02/10/2023 ibuprofen 200 mg tablet Take by mouth if needed. PRN 03/28/2021 multivit with minerals/lutein (MULTIVITAMIN 50 PLUS ORAL) Take by mouth once daily. 03/28/2022 omega 1-xzr-wpu-fish oil 1,000 mg (120 mg-180 mg) capsule [...] Procedure Visit [facility] [address] [facility] Floor 9 [place] [address] Katie Jones AUD 01/06/2024 2:00 PM EDT Appointment [place] [id number] [place] [address] 01/09/2024 2:00 PM EDT Office Visit [facility] [address] [facility] 19th Floor [address] [place] [address] Radha Coker MD 550 [place] [address] 01/10/2024 8:30 AM EDT Office Visit [place] [address] [facility] [address] [place] [address] Style, Sydnee Ndiaye, DO [address] [facility] [place] [place] [address] 01/11/2024 10:00 AM EDT Office Visit [facility] - ENT & Facial Plastic Surgery [address] [place] [address] Kat Rico, PATTIE [address] [place] [address] 01/20/2024 11:45 AM EDT Clinical Support [facility] [address] [facility] [address] [place] [place] [address] Maria Eugenia Lucero, [facility] [address] [place] [address] 01/30/2024 8:40 AM EST Office Visit [facility] [address] [facility] [place] 15th Floor [address] [place] [address] Jose Monique MD 550 [facility] [place] 15th Floor, [address] [place] [address] 02/27/2024 12:50 PM EST Office Visit [facility] [address] [facility] [address] [facility] [address] 4 [address] [place] [phone] [address] Kellie Bowser, OD [address] [facility] [address], [address] [facility] [place] [address] 06/19/2024 11:30 AM EDT Appointment [facility] [address] [place] [address] 06/19/2024 1:00 PM EDT Appointment [facility] [address] [place] [address] 08/21/2024 1:40 PM EDT Office Visit [facility] at [address] [facility] [address] 3rd [place] [address] Satya Wright PA [address] 3rd [place] [address] 09/05/2024 10:30 AM EDT Office Visit [facility] [address] [place] [address] Tatiana Dominguez, KASH [address] [facility] [place] [address] documented as of this encounter Visit Diagnoses Diagnosis Chest wall pain Painful respiration documented in this encounter Additional Health Concerns Assessment Noted Time PHQ-9 Depression Total Score: 0 03/31/19 24 3:16 PM EST A fall risk assessment has been complete d for the patient 07/05/2023 9:40 AM EDT documented as of this encounter Care Teams Packaging Sales Representative Relationship Specialty Start Date End Date Style, Sydnee Ndiaye DO [address] [place] [facility] [place] [address] PCP - General Family Medicine 01/17/23 documented as of this encounter
--- OUTSIDE RECORDS SUMMARY | 2023-11-14 01:02 | XMS_ITS | Encounter Summary ---
Author Organization [facility] Address [address] [place], [place], [place] [address] Phone Care Team Providers Care Weight Reduction Specialist Name Role Phone Style, Sydnee Zelda GUILLEN Primary Care Provider [phone] Encounter Details Date Type Department Care Team (Late st Contact Info) Description 07/25/2023 8:20 AM EDT Telemedicine [facility] [address] [facility] [place] 15th Floor [address] [place] [address] Jose Monique MD 550 [facility] [place] 15th Floor, [address] [place] [address] Small airways disease (Primary Dx) Social History Tobacco Use Types Packs/Day Years Used Date Smoking Tobacco: Never Smokeless Tobacco: Never Comments:My parents were smo kers-I lived with passive smoke from childhood Alcohol Use Standard Drinks/Week Comments Yes 2 (1 standard drink = 0.6 oz pur e alcohol) 4 per week average [facility] Utilities Answer Date Recorded In the past 12 months has [employer], gas, oil, or water [employer] threatened to shut off services in your [...] often do you attend chur ch or holiness services? More than 4 times per year [...] Recorded Patient Health Questionnaire-2 Score 0 07/22/2023 [employer] [employer] of Occupat ional Health - Occupational Stress [...] place to sleep or slept in a [place] health care facility (including now)? No 03/28/2023 Sex and Gender Information Value Date Recorded Sex Assigned at Choose not to disclose 06/2023 9:41 PM EDT Gender Identity Female 01/17/2022 5:45 PM EDT Sexual Orientation Choose not to disclose 2023 9:41 PM EDT Job Start Date Occupation Industry Not on file Not on file Not on file documented as of this encounter Patient Instructions * Patient Instructions* Jose Monique MD - 07/25/2023 8:20 AM EDT You can use the inhaler scheduled or as needed before exercise (let's start with before exercise). Please rinse your mouth out after using each time (rinse, gargle and spit each time with regular water). 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 I would caution against benadryl on a regular basis documented in this encounter Progress Notes * Jose Monique MD - 07/25/2023 8:20 AM EDT .Subjective HPI Gianna Infante is a 77 y.o. year old female patient with osteoporosis, hyperlipidemia, hypertension, GERD, anxiety returning for SOB. At her initial visit she described dyspnea on exertion as well as a mild postnasal drip so she was started on Flonase and given GERD precautions. TTE was performed but only showed borderline LV wall thickness with normal function. CT showed mild bibasilar air trapping on expiratory phase with smallairway disease and stable indeterminate left lower lobe solid and left upper lobe. Groundglass pulmonary nodule. PFTs were showed borderline obstruction based on ratio being less than 70 but with normal FEV1. DLCO was normal. At her last appointment she had not yet started the ICS/LABA or nasal saline rinses with fluticasone so these were started. Since I last saw her she had an episode of acute onset chest pain and vertigo. She is doing well from a respiratory standpoint. She was seen for vertigo and started on meclizine which has helped a bit. She was started on Breo but not covered and then got a coupon but they stillwouldn't cover it. She has increased hilly walks and feels much better with decreased breathlessness. No coughing and doesn't use the flonase recently as has been feeling well. Hasn't been using the neti-pot as she didn't like it. Objective Overall: Patient appeared well, speaking in full sentences, thin No physical exam performed as patient was on video There were no vitals taken for this visit. Updated testing: === 04/05/23 === CT CHEST HIGH RES PROTOCOL - Impression - 1. Bibasilar curvilinear opacities suggesting scarring. No imaging findings suggest pulmonary fibrosis. 2. Mild bibasilar air trapping on expiratory phase images consistent with small airways disease. 3. Stable indeterminate left lower lobe solid and left upper lobe pure groundglass pulmonary nodules. Continued additional follow-up CT chest in 12 months. Echo Transthoracic (TTE) Complete Result Date: 04/04/2023 [...] consistent with mild leaflet sclerosis. No stenosis. Pulmonary Functions Testing Results: No results found for: FEV1, FVC, SDZ5SFV, TLC, DLCOSBPRE Assessment/Plan # Small airway disease #Dyspnea on exertion #GERD #Post-nasal drip Patient has been doing better recently with decreased dyspnea and increased ability to walk up hills without dyspnea. Given the air trapping seen on CT and borderline obstruction on PFTs recommended starting on a trial of ICS/LABA maintenance and reliever therapy. However due to insurance and cost issues she didn't start the inhaler. Have searched online and found that through [employer] and found anoption that is $50. Given her CT findings and PFTs with borderline obstruction do think she would benefit from ICS/LABA at least PRN for now. Also discussed OTC antihistamine, atypical for allergies. ICS/LABA trial with [employer], rinsing after usage Continue using the Flonase - instructed on usage OTC atypical antihistamines GERD lifestyle precautions Vaccinations: uptodate on flu, RSV, COVID, pneumococcus, Needs none currently Eligible for lung cancer screening: NA RTC 3 months Total time spent on day of encounter: 30 minutes Jose Monique MD, MPH Pulmonary & Critical Care Medicine documented in this encounter Plan of Treatment Upcoming Encounters Date Type Department Care Team (Late st Contact Info) Description 01/04/2024 11:20 AM EDT Procedure Visit [facility] [address] [place] Floor 9 [place] [phone] Katie Jones AUD 01/06/2024 2:00 PM EDT Appointment [facility] [address] [place] [address] 01/09/2024 2:00 PM EDT Office Visit [facility] [address] [facility] [place] 19th Floor [address] [place] [address] Radha Coker MD 550 [place] [address] 01/10/2024 8:30 AM EDT Office Visit [facility] - Primary [facility] [address] [place] [address] Style, Sydnee Ndiaye, [address] [facility] [place] [address] 01/11/2024 10:00 AM EDT Office Visit [facility] - ENT & Facial Plastic Surgery [address] [place] [address] Kat Rico, PA [address] [place] [address] 01/20/2024 11:45 AM EDT Clinical Support [facility] [address] [place] [address] Maria Eugenia Lucero, [facility] [place] [address] 01/30/2024 8:40 AM EST Office Visit [facility] [address] [facility] [place] 15th Floor [address] [place] [address] Jose Monique MD 550 [facility] [place] 15th Floor, [address] [place] [address] 02/27/2024 12:50 PM EST Office Visit [facility] [address] [facility] [address] 4 [address] [place] [address] Kellie Bowser, OD [address] [facility] [address], [address] [facility] [place] [address] 06/19/2024 11:30 AM EDT Appointment [facility] [address] [place] [address] 06/19/2024 1:00 PM EDT Appointment [facility] [address] [place] [address] 08/21/2024 1:40 PM EDT Office Visit [facility] at [address] 3rd [place] [address] Satya Wright PA [address] [facility] [address] 3rd [place] [address] 09/05/2024 10:30 AM EDT Office Visit [facility] [address] [place] [address] Tatiana Dominguez, RADIO FREQUENCY TECHNICIAN [address] [facility] [place] [address] documented as of this encounter Visit Diagnoses Diagnosis Small airways disease- Primary Other diseases of lung, not elsewhere classified documented in this encounter Additional Health Concerns Assessment Noted Time PHQ-9 Depression Total Score: 0 03/31/19 24 3:16 PM EST A fall risk assessment has been complete d for the patient 07/22/2023 11:36 AM EDT documented as of this encounter Care Teams Weight Reduction Specialist Relationship Specialty Start Date End Date Style, Sydnee Ndiaye DO [address] [place] [facility] [address] [place] [address] PCP - General Family Medicine 01/17/23 documented as of this encounter
--- OUTSIDE RECORDS SUMMARY | 2023-11-14 01:02 | XMS_ITS | Encounter Summary ---
Author Organization [facility] Address [address] [place], [address], [place] [address] Phone Care Team Providers Care Manager Trade Name Role Phone Sydnee Ross DO Primary Care Provider [phone] Encounter Details Date Type Department Care Team (Late st Contact Info) Description 08/08/2023 Orders Only [place] [facility] - Primary Care [address] [place], [place] [id number] Sydnee Ross DO [address] [place] [facility] [place] [address] Dizziness (Primary Dx); History of UTI Social History Tobacco Use Types Packs/Day Years Used Date Smoking Tobacco: Never Smokeless Tobacco: Never Comments:My parents were smo kers-I lived with passive smoke from childhood Alcohol Use Standard Drinks/Week Comments Yes 2 (1 standard drink = 0.6 oz pur e alcohol) [address] [facility] Utilities Answer Date Recorded In the past 12 months has [employer], gas, oil, or water [employer] threatened to shut off services in your [...] often do you attend chur ch or yazidism services? More than 4 times per year 03/28/2023 Do you belong to any clubs o r organizations such as baptist groups, unions, fraternal or athletic groups, or [...] Recorded Patient Health Questionnaire-2 Score 0 07/22/2023 [facility] of Occupat ional Health - Occupational Stress [...] Visit [facility] [address] [facility] Medical [facility] [place] Floor 9 [place] [address] Katie Jones AUD 01/06/2024 2:00 PM EDT Appointment [facility] [address] [place] [address] 01/09/2024 2:00 PM EDT Office Visit [facility] [address] [facility] [place] 19th Floor [address] [place] [address] Radha Coker MD 550 [place] [address] 01/10/2024 8:30 AM EDT Office Visit [facility] Primary [facility] [address] [place] [address] Style, Sydnee Ndiaye, DO [address] [facility] [place] [address] 01/11/2024 10:00 AM EDT Office Visit [facility] - ENT & Facial Plastic Surgery [address] [place] [address] Kat Rico, PATTIE [address] [place] [address] 01/20/2024 11:45 AM EDT Clinical Support [facility] [address] [place] [address] Maria Eugenia Lucero, [facility] [address] [place] [address] 01/30/2024 8:40 AM EST Office Visit [facility] [address] [facility] [place] 15th Floor [address] [place] [address] Jose Monique MD 550 [facility] Medical Office [place] 15th Floor, [address] [place] [address] 02/27/2024 12:50 PM EST Office Visit [facility] [address] [facility] [facility] [address] [place] [address] Kellie Bowser, OD [address], [address] [place] [address] 06/19/2024 11:30 AM EDT Appointment [place] [address] [place] [address] 06/19/2024 1:00 PM EDT Appointment [place] [address] [place] [address] 08/21/2024 1:40 PM EDT Office Visit [facility] at [address] 3rd [place] [address] Satya Wright PA [address] 3rd [place] [address] 09/05/2024 10:30 AM EDT Office Visit [facility] [address] [place] [address] Tatiana Dominguez, KASH [address] [place] [address] documented as of this encounter Results * Urinalysis (08/09/2023 10:17 AM EDT) Color Yellow Colorless, Straw, Yellow LAB URINALYSIS - AUTOMATED METHOD 08/09/2023 3:25 PM EDT [facility] Clarity Clear Clear LAB URINALYSIS - AUTOMATED METHOD 08/09/2023 3:25 PM EDT [facility] Specific [place] Urine 1.007 1.005 - 1.030 LAB URINALYSIS - AUTOMATED METHOD 08/09/2023 3:25 PM EDT [facility] pH Urine Random 6.5 5.0, 5.5, 6.0, 6.5, 7.0, 7.5, 8.0 LAB URINALYSIS - AUTOMATED METHOD 08/09/2023 3:25 PM EDT [facility] Protein Urine Qualitative Negative Negative mg/dL LAB URINALYSIS - AUTOMATED METHOD 08/09/2023 3:25 PM EDT [facility] Glucose Urine Qualitative Negative Negative mg/dL LAB URINALYSIS - AUTOMATED METHOD 08/09/2023 3:25 PM EDT [facility] Ketone Urine Qualitative Negative Negative mg/dL LAB URINALYSIS - AUTOMATED METHOD 08/09/2023 3:25 PM EDT [facility] Blood Urine Qualitative Negative Negative LAB URINALYSIS - AUTOMATED METHOD 08/09/2023 3:25 PM EDT [facility] Urobilinogen Urine Qualitative <2 <2 mg/dL LAB URINALYSIS - AUTOMATED METHOD 08/09/2023 3:25 PM EDT [facility] Nitrite Urine Qualitative Negative Negative LAB URINALYSIS - AUTOMATED METHOD 08/09/2023 3:25 PM EDT [facility] Leukocyte Esterase Urine Qual Negative Negative LAB URINALYSIS - AUTOMATED METHOD 08/09/2023 3:25 PM EDT [facility] Bilirubin Urine Qualitative Negative Negative LAB URINALYSIS - AUTOMATED METHOD 08/09/2023 3:25 PM EDT [facility] Urine Urine specimen obtained by clean catch procedure / Unknown Non-blood Collection / Unknown 08/09/2023 10:17 AM EDT 08/09/2023 10:17 AM EDT Sydnee Zelda Style DO LAB URINE ORDERABLE S Performing Organization Address City/State/[facility] Co de Phone Number [facility] [address] [place] [address] * Urinalysis Microscopic (08/09/2023 10:17 AM EDT) RBC/HPF 1 <=2 /HPF LAB URINALYSIS - AUTOMATED METHOD 08/09/2023 3:28 PM EDT [facility] WBC/HPF <1 <=5 /HPF LAB URINALYSIS - AUTOMATED METHOD 08/09/2023 3:28 PM EDT [facility] Squamous Epithelial/HPF <1 <=5 /HPF LAB URINALYSIS - AUTOMATED METHOD 08/09/2023 3:28 PM EDT [facility] Mucus/LPF 1+ None Seen, 1+ /LPF LAB URINALYSIS - AUTOMATED METHOD 08/09/2023 3:28 PM EDT [facility] Urine Urine specimen obtained by clean catch procedure / Unknown Non-blood Collection / Unknown 08/09/2023 10:17 AM EDT 08/09/2023 10:17 AM EDT Sydnee Ndiaye Style DO LAB URINE ORDERABLE S [facility] [address] [place] [address] * (ABNORMAL) Comprehensive Metabolic Panel (08/09/2023 10:17 AM EDT) Sodium 141 136 - 145 mmol/L LAB CHEMISTRY METHOD 08/09/2023 2:49 PM EDT [facility] Potassium 4.2 3.5 - 5.1 mmol/L LAB CHEMISTRY METHOD 08/09/2023 2:49 PM EDT [facility] Chloride 105 98 - 107 mmol/L LAB CHEMISTRY METHOD 08/09/2023 2:49 PM EDT [facility] Carbon Dioxide Level 25 23 - 29 mmol/L LAB CHEMISTRY METHOD 08/09/2023 2:49 PM EDT [facility] Calcium Level Total 9.3 8.6 - 10.3 mg/dL LAB CHEMISTRY METHOD 08/09/2023 2:49 PM EDT [facility] Blood Urea Nitrogen 12 7 - 25 mg/dL LAB CHEMISTRY METHOD 08/09/2023 2:49 PM EDT [facility] Creatinine 0.55(L) 0.60 - 1.20 mg/dL LAB CHEMISTRY METHOD 08/09/2023 2:49 PM EDT [facility] Glucose 96 70 - 105 mg/dL LAB CHEMISTRY METHOD 08/09/2023 2:49 PM EDT [facility] Comment: Random Glucose* Diabetes is diagnosed at blood glucose of greater than or equal to 200 mg/dL Fasting Glucose* Normal: less than 100 mg/dL Prediabetes: 100 mg/dl to 125 mg/dL Diabetes: 126 mg/dL or higher *ADA guidelines Protein Total 6.6 6.4 - 8.9 gm/dL LAB CHEMISTRY METHOD 08/09/2023 2:49 PM EDT [facility] Albumin Level 4.0 3.5 - 5.7 gm/dL LAB CHEMISTRY METHOD 08/09/2023 2:49 PM EDT [facility] Alkaline Phosphatase 40 34 - 104 unit/L LAB CHEMISTRY METHOD 08/09/2023 2:49 PM EDT [facility] Alanine Aminotransferase 39 7 - 52 unit/L LAB CHEMISTRY METHOD 08/09/2023 2:49 PM EDT [facility] Aspartate Aminotransferase 33 13 - 39 unit/L LAB CHEMISTRY METHOD 08/09/2023 2:49 PM EDT [facility] Total Bilirubin 0.6 0.3 - 1.0 mg/dL LAB CHEMISTRY METHOD 08/09/2023 2:49 PM EDT [facility] Anion Gap 11 2 - 11 mmol/L 08/09/2023 2:49 PM EDT [facility] Calculated Osmolality 282 275 - 295 mOsm/kg 08/09/2023 2:49 PM EDT [facility] U:C 22(H) 7 - 21 08/09/2023 2:49 PM EDT [facility] Estimated GFR 91 >=60 mL/min/1 .73m2 08/09/2023 2:49 PM EDT [facility] Comment: The eGFR is calculated with [...] 1. Based on review of evidence, the [facility] Clinical Practice [place] made the decision to stop reporting eGFR by race effective 09/03/2020. Blood Venous blood specimen / Unknown Venipuncture / Unknown 08/09/2023 10:17 AM EDT 08/09/2023 10:17 AM EDT Sydnee Ross DO LAB BLOOD ORDERABLE S Performing Organization Address City/[facility] Co de Phone Number [facility] [address] [place] [address] * (ABNORMAL) Vitamin B12 Level (08/09/2023 10:17 AM EDT) Vitamin B12 Level 1,050(H) 180 - 914 pg/mL LAB CHEMISTRY METHOD 08/09/2023 3:09 PM EDT [facility] Comment:Intrinsic factor blo cking antibodies are [...] Sydnee Ross DO LAB BLOOD ORDERABLE S Performing Organization Address City/[facility] Co de Phone Number [facility] [address] [place] [address] documented in this encounter Visit Diagnoses Diagnosis Dizziness- Primary Dizziness and giddiness History of UTI documented in this encounter Additional Health Concerns Assessment Noted Time PHQ-9 Depression Total Score: 0 03/31/19 24 3:16 PM EST A fall risk assessment has been complete d for the patient 07/22/2023 11:36 AM EDT documented as of this encounter Care Teams Manager Trade Relationship Specialty Start Date End Date Sydnee Ross DO [address] [place] [facility] [place] [address] PCP - General Family Medicine 01/17/23 documented as of this encounter
--- OUTSIDE RECORDS SUMMARY | 2023-11-14 01:02 | XMS_ITS | Encounter Summary ---
Author Organization [facility] Address [address] [facility] , [place], [place] [address] Phone Care Team Providers Care Yolk Spray Drier Name Role Phone Style, Sydnee Zelda Primary Care Provider [phone] Encounter Details Date Type Department Care Team (Late st Contact Info) Description 07/29/2023 Telephone [facility] at [address] [facility] A 3rd [place] [address] Niyha Marrero Social History Tobacco Use Types Packs/Day Years Used Date Smoking Tobacco: Never Smokeless Tobacco: Never Comments:My parents were smo kers-I lived with passive smoke from childhood Alcohol Use Standard Drinks/Week Comments Yes 2 (1 standard drink = 0.6 oz pur e alcohol) 4 per week average [facility] Utilities Answer Date Recorded In the past 12 months has e electric, gas, oil, or water [employer] threatened to shut off services in your [...] often do you attend chur ch or episcopalian services? More than 4 times per year 03/28/2023 Do you belong to any clubs o r organizations such as jainism groups, unions, fraternal or athletic groups, or [...] Recorded Patient Health Questionnaire-2 Score 0 07/22/2023 [facility] Questionnaire Answer [...] Telephone Encounter - Niyah Marrero - 07/29/2023 1:01 PM EDT RN resent Rx for Wixela inhaler as patient requested to [facility] per standard protocol. Niyah Marrero RN * Telephone Encounter - Niyah Marrero - 07/29/2023 12:59 PM EDT ----- Message from Gianna Infante sent at 07/29/2023 12:51 PM EDT ----- Regarding: Wixela inhaler rejected Contact: Dr Monique and Niyah, I just drove to [facility] to show them the [employer] coupon. They said they needed to have Wixela in the system for me. In other words, please call the pharmacy at this number that they gave me- [phone]. They are located at [address] [place] [address]. Tell them you are ordering Wixela for Gianna Infante 1945. You can mention that I have a coupon from [employer]. Thank you, Note: The pharmacy closes for a lunch break from 1:30-2pm. documented in this encounter Plan of Treatment Upcoming Encounters Date Type Department Care Team (Late st Contact Info) Description 01/04/2024 11:20 AM EDT Procedure Visit [facility] [address] [facility] Medical Office [place] Floor 9 [place] [address] Katie Jones, LISA 01/06/2024 2:00 PM EDT Appointment [facility] [address] [place] [address] 01/09/2024 2:00 PM EDT Office Visit [facility] [address] [facility] [place] 19th Floor [address] [place] [address] Radha Coker MD [address] [place] [address] 01/10/2024 8:30 AM EDT Office Visit [facility] [address] [place] [address] Vandana, Sydnee Ndiaye, [address] [facility] [place] [address] 01/11/2024 10:00 AM EDT Office Visit [facility] - ENT & Facial Plastic Surgery [address] [facility] [address] [place] [address] Kat Rico PA [address] [place] [address] 01/20/2024 11:45 AM EDT Clinical Support [facility] [address] [place] [address] Maria Eugenia Lucero LAC [address] [place] [address] 01/30/2024 8:40 AM EST [facility] [address] [facility] [place] 15[address] [place] [address] Jose Monique MD [address] [facility] [place] 15th Floor, [address] [place] [address] 02/27/2024 12:50 PM EST Office Visit [facility] [address] [facility] Floor 4 [address] [place] [phone] Kellie Bowser, OD [address] [facility] [address], [address] [facility] [place] [address] 06/19/2024 11:30 AM EDT Appointment [place] [address] [place] [address] 06/19/2024 1:00 PM EDT Appointment [place] [address] [place] [address] 08/21/2024 1:40 PM EDT Office Visit [facility] at [address] [facility] [address] 3rd [place] [address] Satya Wright PA [address] 3rd [place] [address] 09/05/2024 10:30 AM EDT Office Visit [facility] [address] [place] [address] Tatiana Dominguez NP [address] [place] [address] documented as of this encounter Visit Diagnoses Not on filedocumented in this encounter Additional Health Concerns Assessment Noted Time PHQ-9 Depression Total Score: 0 03/31/19 24 3:16 PM EST A fall risk assessment has been complete d for the patient 07/22/2023 11:36 AM EDT documented as of this encounter Care Teams Yolk Spray Drier Relationship Specialty Start Date End Date Style, Sydnee Ndiaye DO [address] [facility] [place] [address] PCP - General Family Medicine 01/17/23 documented as of this encounter
--- OUTSIDE RECORDS SUMMARY | 2023-11-14 01:02 | XMS_ITS | Encounter Summary ---
Author Organization [facility] Address [address] [place] [address], [place] [address] Phone Care Team Providers Care Head Scorer Name Role Phone Sydnee Ross DO Primary Care Provider [phone] Reason for Visit * Reason Onset Date Comments Chest Pain 07/11/2023 Encounter Details Date Type Department Care Team (Late st Contact Info) Description 07/11/2023 Nurse Triage [facility] [address] [place] [address] Sydnee Ross DO [address] [facility] [place] [address] Social History Tobacco Use Types Packs/Day Years Used Date Smoking Tobacco: Never Smokeless Tobacco: Never Comments:My parents were smo kers-I lived with passive smoke from childhood Alcohol Use Standard Drinks/Week Comments Yes 2 (1 standard drink = 0.6 oz pur e alcohol) 4 per week average [facility] Utilities Answer Date Recorded In the past 12 months has e electric, gas, oil, or water [employer] threatened to shut off services in your [...] Recorded Patient Health Questionnaire-2 Score 1 06/17/2023 [facility] [place] of Occupat ional Health - Occupational Stress [...] place to sleep or slept in a fdc (including now)? No 03/28/2023 Sex and Gender [...] encounter Miscellaneous Notes * Telephone Encounter - Sandra Aguirre - 07/11/2023 11:58 AM EDT RN Advisor Triage- [facility] Pt reports she was working out on 06/28 and on 06/29 she noticed pain in the posterior upper rib cage on the left. Pt requesting x-ray. Answer Assessment - Initial Assessment Questions 1. LOCATION: Where does it hurt? Back of upper Left rib cage 2. RADIATION: Does the pain go anywhere else? (e.g., into neck, jaw, arms, back) Just a little to the front of the left side rib cage. 3. ONSET: When did the chest pain begin? (Minutes, hours or days) 06/29 4. PATTERN Does the pain come and go, or has it been constant since it started? Does it get worse with exertion? Pt states she experiences pain when using upper body. 5. DURATION: How long does it last (e.g., seconds, minutes, hours) A few only seconds. 6. SEVERITY: How bad is the pain? (e.g., Scale 1-10; mild, moderate, or severe) - MILD (1-3): doesn't interfere with normal activities - MODERATE (4-7): interferes with normal activities or awakens from sleep - SEVERE (8-10): excruciating pain, unable to do any normal activities Current pain 08/04 7. CARDIAC RISK FACTORS: Do you have any history of heart problems or risk factors for heart disease? (e.g., angina, prior heart attack; diabetes, high blood pressure, high cholesterol, smoker, or strong family history of heart disease) Pt reports she is monitoring blood pressure. 8. PULMONARY RISK FACTORS: Do you have any history of lung disease? (e.g., blood clots in lung, asthma, emphysema, control pills) NO 9. CAUSE: What do you think is causing the chest pain? Pt states she was working out / and thinks she injured herself. 10. OTHER SYMPTOMS: Do you have any other symptoms? (e.g., dizziness, nausea, vomiting, sweating,fever, difficulty breathing, cough) no 11. : Is there any chance you are ? When was your last menstrual period? N/A Protocols used: Chest Pain-A-OH No OV available with PCP or in clinic. [facility] appt scheduled next day with Dr. Whitman at 420p,pt advised of location and to arrive at 405p for check in. Advised pt if pain becomes severe to go to ED. Pr verbalized understanding and agreement. documented in this encounter Plan of Treatment Upcoming Encounters Date Type Department Care Team (Late st Contact Info) Description 01/04/2024 11:20 AM EDT Procedure Visit [facility] [address] [facility] [place] Floor 9 [place] [address] Katie Jones AUD 01/06/2024 2:00 PM EDT Appointment [facility] [address] [place] [address] 01/09/2024 2:00 PM EDT Office Visit [facility] [address] [facility] [place] 19th Floor [address] [place] [address] Radha Coker MD 550 [place] [address] 01/10/2024 8:30 AM EDT Office Visit [facility] [address] [place] [address] Sydnee Ross DO [address] [facility] [place] [address] 01/11/2024 10:00 AM EDT Office Visit [facility] - ENT & Facial Plastic Surgery [address] [facility] [address] [place] [address] Kat Rico, PA [address] [place] [address] 01/20/2024 11:45 AM EDT Clinical Support [facility] [address] [facility] [address] [place] [address] Maria Eugenia Lucero, ORA [address] [place] [address] 01/30/2024 8:40 AM EST Office Visit [facility] [address] [facility] Medical Office [place] 15th Floor [address] [place] [address] Jose Monique MD [address] Medical Office [place] 15th Floor, [address] [place] [address] 02/27/2024 12:50 PM EST Office Visit [facility] [address] 4 [address] [place] [address] Henrry Maciasbecka Kellie Pedro Luis, OD [address], [address] [facility] [place] [address] 06/19/2024 11:30 AM EDT Appointment [place] [address] [facility] [address] [place] [address] 06/19/2024 1:00 PM EDT Appointment [place] [address] [facility] 120 [place] [address] 08/21/2024 1:40 PM EDT Office Visit [facility] [address] 3rd [place] [address] Satya Wright PA [address] [facility] [address] 3rd [place] [address] 09/05/2024 10:30 AM EDT Office Visit [facility] [address] [address] Tatiana Dominguez, [employer]ANCH [employer] EXECUTIVE [address] [place] [address] documented as of this encounter Visit Diagnoses Not on filedocumented in this encounter Additional Health Concerns Assessment Noted Time PHQ-9 Depression Total Score: 0 03/31/19 24 3:16 PM EST A fall risk assessment has been complete d for the patient 07/05/2023 9:40 AM EDT documented as of this encounter Care Teams Head Scorer Relationship Specialty Start Date End Date Vandana, Sydnee Ndiaye DO [address] [facility] [place] [address] PCP - General Family Medicine 01/17/23 documented as of this encounter
--- OUTSIDE RECORDS SUMMARY | 2023-11-14 01:02 | XMS_ITS | Encounter Summary ---
Author Organization [facility] Address [address] [place], [place], [place] [address] Phone Care Team Providers Care Screw Machine Operator Name Role Phone Sydnee Ross DO Primary Care Provider [phone] Reason for Visit * Consultation (Routine) - Closed Specialty Diagnoses / Procedures Referred By Farrah shook Referred To Contact Neurology Diagnoses Memory change Procedures SC MEDICAL NUTRITION ASSMT&IVNTJ INDIV EACH 15 NM SC MEDICAL NUTRITION RE-ASSMT&IVNTJ INDIV EA 15 M Sydnee Ross DO [address] [facility] - [place] [address] Referral ID Status Reason Start Date Expiration Date V isits Requested Visits Authorized [id number] Closed Specialty Services Required 09/21/2022 09/21/2023 1 1 Encounter Details Date Type Department Care Team (Late st Contact Info) Description 06/24/2023 1:30 PM EDT Office Visit [facility] [address] [place] [address] Memory deficit (Primary Dx); Memory change Social History Tobacco Use Types Packs/Day Years Used Date Smoking Tobacco: Never Smokeless Tobacco: Never Comments:My parents were smo kers-I lived with passive smoke Alcohol Use Standard Drinks/Week Comments Yes 2 (1 standard drink = 0.6 oz pur e alcohol) 4 per week average [facility] Utilities Answer Date Recorded In the [...] week 03/28/2023 How often do you attend [facility] or adventist services? More than 4 times per year 03/28/2023 Do you belong to any clubs o r organizations such as lutheran groups, unions, fraternal or athletic groups, or [...] Recorded Patient Health Questionnaire-2 Score 1 06/17/2023 [facility] of Occupat ional Health - Occupational [...] as of this encounter Progress Notes * Veronica Desouza - 06/24/2023 1:30 PM EDT Provider: Assessment Battery #1 06-24-2023 1945 LOWE 06-24-2023 Age: 77 Sex: Female Administered: In-clinic Primary Race: White Education: 18 - Master's degree Handedness: Right OVERALL Raw Score z-Score t-Score %tile Descriptor Notes Brando Cognitive Assessment (MoCA) Auto-Norming Successful: [2023-06-24 01:46:37 PM EST] Total Score 28 0.4895 54.8955 68.7773 Normal Memory (x/15) 13 Executive (x/13) 12 Attention (x/18) 17 Language (x/6) 6 Visuo-Spatial (x/7) 7 Orientation (x/6) 6 Executive Raw Score z-Score t-Score %tile Descriptor Notes Number Span - Backward Auto-Norming Successful: [2023-06-24 02:13:30 PM EST] Total Correct 7 -0.1291 48.7087 44.8628 Normal Longest Span 5 -0.1173 48.8266 45.3297 Normal [place] Making Test - B Auto-Norming Successful: [2023-06-24 02:01:49 PM EST] Trails B Time 78 0.0236 50.236 50.9414 Normal Trails B Errors 0 ATTENTION Raw Score z-Score t-Score %tile Descriptor Notes Number Span - Forward Auto-Norming Successful: [2023-06-24 02:11:33 PM EST] Total Score 10 0.7436 57.4362 77.1446 High Normal Longest Span 7 0.1998 51.9984 57.9199 Normal [place] Making Test - A Auto-Norming Successful: [2023-06-24 02:01:49 PM EST] [place] A - Time 40 -0.8303 41.6965 20.3171 Low Normal Trails A - Errors 0 LANGUAGE Raw Score z-Score t-Score %tile Descriptor Notes Multilingual Naming Test (MINT) Auto-Norming Successful: [2023-06-24 02:08:56 PM EST] Total (w/ Semantic Cue) 31 0.4065 54.065 65.7814 Normal Additional Correct w/ Phonemic 0 Verbal Fluency - F&L Auto-Norming Successful: [2023-06-24 02:24:48 PM EST] Total Correct 32 0.2048 52.0478 58.1126 Normal Category Fluency Auto-Norming Successful: [2023-06-24 02:26:21 PM EST] Total Correct - Animals 17 -0.9403 40.5974 17.3542 Low Normal PROCESSING SPEED Raw Score z-Score t-Score %tile Descriptor Notes Symbol Digit Modalities Test (SDMT) Auto-Norming Successful: [2023-06-24 02:28:34 PM EST] Total Correct 31 -1.1136 38.8642 13.2731 Low Normal VISUOSPATIAL Raw Score z-Score t-Score %tile Descriptor Notes Judgment of Line Orientation (SARA) Auto-Norming Successful: [2023-06-24 02:06:35 PM EST] Total Score 22 -0.5333 44.6667 29.6901 Normal MEMORY Raw Score z-Score t-Score %tile Descriptor Notes Venita-Osterrieth Complex Figure Test (VENITA-O) Copy Score Immediate Score Delayed Recall Score Venita Auditory Verbal Learning Test (RAVLT) Auto-Norming Successful: [2023-06-24 01:57:48 PM EST] Total (Trials 1-5) 38 -0.7481 42.5189 22.7198 Low Normal - DR@22minutes Delay 8 -0.2386 47.6142 40.5716 Normal Recognition % Correct 90 -0.6605 43.3953 25.4475 Normal Recognition FP 2 Discrimination 12 Raw Score Descriptor Notes Patient Health Questionnaire 8 Auto-Norming Successful: [2023-06-24 02:15:49 PM EST] Total Score 7 Mild Generalized Anxiety Disorder 7 Auto-Norming Successful: [2023-06-24 02:17:14 PM EST] Total Score 6 Mild 1-hour of ngsc-bc-poph robotics testing technician time was spent administering the cognitive testing measures listed above [facility] Neuropsychological Testing Provider Interpretation Impairments in cognitive domains, if present, are noted above in the 'Descriptor' column. Interpretation of depression (PHQ-8) and anxiety (KARYNA-7) scales are also shown in the 'Descriptor' column. Clinical correlation is advised. Discharge diagnosis: Memory deficit [R41.3] documented in this encounter Plan of Treatment Upcoming Encounters Date Type Department Care Team (Late st Contact Info) Description 01/04/2024 11:20 AM EDT Procedure Visit [facility] [address] [facility] Medical Office [place] Floor 9 [place] [address] Katie Jones AUD 01/06/2024 2:00 PM EDT Appointment [facility] [address] [place] [address] 01/09/2024 2:00 PM EDT Office Visit [facility] [address] [facility] Medical Office [place] 19th Floor [address] [place] [address] Radha Coker MD 550 [place] [address] 01/10/2024 8:30 AM EDT Office Visit [facility] Primary [facility] [address] [place] [address] Vandana, Sydnee Ndiaye DO [address] [facility] - [place] [address] 01/11/2024 10:00 AM EDT Office Visit [facility] - ENT & Facial Plastic Surgery [address] [facility] [address] [place] [address] Kat Rico, PATTIE [address] [place] [address] 01/20/2024 11:45 AM EDT Clinical Support [facility] [address] [facility] [place] [address] Maria Eugenia Lucero, ORA [address] [place] [address] 01/30/2024 8:40 AM EST Office Visit [facility] [address] Medical Office [place] 15th Floor [address] [place] [address] Jose Monique MD [address] [facility] Office [place] 15th Floor, [address] [place] [address] 02/27/2024 12:50 PM EST Office Visit [facility] [address] [facility] Floor 4 [address] [place] [phone] 393-383 Kellie Bowser, OD [address] [facility], [address] [facility] [place] [address] 06/19/2024 11:30 AM EDT Appointment [facility] [address] [place] [address] 06/19/2024 1:00 PM EDT Appointment [place] [address] [facility] [address] [place] [address] 08/21/2024 1:40 PM EDT Office Visit [facility] at [address] [place] [address] 3rd [place] [address] Satya Wright PA [address] [facility] 3rd [place] [address] 09/05/2024 10:30 AM EDT Office Visit [facility] [address] [place] [address] Tatiana Dominguez NP [address] [place] [address] documented as of this encounter Visit Diagnoses Diagnosis Memory deficit- Primary Memory loss Memory change Memory loss documented in this encounter Additional Health Concerns Assessment Noted Time PHQ-9 Depression Total Score: 0 03/31/19 24 3:16 PM EST A fall risk assessment has been complete d for the patient 04/25/2023 2:29 PM EST documented as of this encounter Care Teams Screw Machine Operator Relationship Specialty Start Date End Date Style, Sydnee Ndiaye DO [address] [facility] 110 [facility] - Primary Care [place] [id number] PCP - General Family Medicine 01/17/23 documented as of this encounter
--- OUTSIDE RECORDS SUMMARY | 2023-11-14 01:02 | XMS_ITS | Encounter Summary ---
Author Organization [facility] Address [address], [place], [place] [address] Phone Care Team Providers Care Crocheter Hand Name Role Phone Vandana, Sydnee Zelda Primary Care Provider [phone] Encounter Details Date Type Department Care Team (Latest Contact Info) Description 06/20/2023 9:50 AM EDT - 06/20/2023 11:59 PM EDT Hospital Encounter [facility] [address] [facility] [address] [place] [address] Osteoporosis, unspecified osteoporosis type, unspecified pathological fracture presence Discharge Disposition: DISCHARGED TO HOME OR SELF CARE (ROUTINE DISCHARGE) Social History Tobacco Use Types Packs/Day Years Used Date Smoking Tobacco: Never Smokeless Tobacco: Never Comments:My parents were smo kers-I lived with passive smoke Alcohol Use Standard Drinks/Week Comments Yes 2 (1 standard drink = 0.6 oz pur e alcohol) 4 per week average [facility] Utilities Answer Date Recorded In the past 12 months has e [employer], [employer], oil, or water [employer] threatened to shut off services in your [...] How often do you attend chur or rastafari services? More than 4 times per year 03/28/2023 Do you belong to any clubs o r organizations such as buddhist groups, unions, fraternal or athletic groups, or [...] Recorded Patient Health Questionnaire-2 Score 1 06/17/2023 [facility] of Occupat ional Health - Occupational [...] place to sleep or slept in a mcc (including now)? No 03/28/2023 Sex and Gender [...] Dispensed Refills Start Date End Date ascorbic qdgy-ltqmrkmp-xsz (Emergen-C) 1,000 mg powder effervescent in packet Take by mouth once daily. 03/28/2019 atorvastatin (Lipitor) 40 mg tablet TAKE 1 TABLET BY MOUTH EVERY DAY 90 tablet 3 02/10/2023 ibuprofen 200 mg tablet Take by mouth if needed. PRN 03/28/2021 multivit with minerals/lutein (MULTIVITAMIN 50 PLUS ORAL) Take by mouth once daily. 03/28/2022 omega 2-zrg-mjs-fish oil 1,000 mg (120 mg-180 mg) capsule [...] Description 01/04/2024 11:20 AM EDT Procedure Visit [facility] [address] [facility] Medical Office [place] Floor 9 [place] [address] Katie Jones AUD 01/06/2024 2:00 PM EDT Appointment [facility] [address] [place] [address] 01/09/2024 2:00 PM EDT Office Visit [facility] [address] [facility] Medical Office [place] 19th [address] [place] [address] Radha Coker MD [address] [place] [address] 01/10/2024 8:30 AM EDT Office Visit [facility] Care [address] [place] [address] Style, Sydnee Ndiaye, DO [address] [facility] [place] [address] 01/11/2024 10:00 AM EDT Office Visit [facility] - ENT & Facial Plastic Surgery [address] [place] [address] Kat Rico, PATTIE [address] [place] [address] 01/20/2024 11:45 AM EDT Clinical Support [facility] [address] [place] [address] Maria Eugenia Lucero, ORA [address] [place] [address] 01/30/2024 8:40 AM EST Office Visit [facility] [address] [facility] Medical Office [place] 15th [address] [place] [address] Jose Monique MD 550 [facility] [place] 15th Floor, [address] [place] [address] 02/27/2024 12:50 PM EST Office Visit [facility] [address] [facility] [address] 4 [address] [place] [address] Kellie Bowser, OD [address] [facility] [address], [address] [facility] [place] [address] 06/19/2024 11:30 AM EDT Appointment [place] [address] [place] [address] 06/19/2024 1:00 PM EDT Appointment [place] [address] [place] [address] 08/21/2024 1:40 PM EDT Office Visit [facility] at [address] [place] [address] NE 3rd [place] [address] Satya Wright PA [address] 3rd [place] [address] 09/05/2024 10:30 AM EDT Office Visit [facility] [address] [place] [address] Tatiana Dominguez, KASH [address] [place] [address] documented as of this encounter Procedures Procedure Name Priority Date/Time Associated Diagnosis Comments DEXA BONE DENSITY HIP/SPINE Routine 06/20/2023 11:22 AM EDT Osteoporosis, unspecified osteoporosis type, unspecified pathological fracture presence documented in this encounter Results * Dexa Bone Density Hip/Spine (06/20/2023 11:22 [...] Exam Date: June 20, 2023 Accession number: [id number] Bone Density: Region ? BMD ?T-score ??Z-score [...] to reassess this patient's status. Reported by: [id number] on 06/20/2023 11:22:00 AM. Sydnee Espinosa DO IMG DXA PROCEDURES documented in this encounter Visit Diagnoses Diagnosis Osteoporosis, unspecified osteoporosis type, unspecified pathological fracture presence documented in this encounter Additional Health Concerns Assessment Noted Time PHQ-9 Depression Total Score: 0 03/31/19 24 3:16 PM EST A fall risk assessment has been complete d for the patient 04/25/2023 2:29 PM EST documented as of this encounter Care Teams Crocheter Hand Relationship Specialty Start Date End Date Sydnee Espinosa DO [address] [facility] [place] [address] PCP - General Family Medicine 01/17/23 documented as of this encounter
--- OUTSIDE RECORDS SUMMARY | 2023-11-14 01:02 | XMS_ITS | Encounter Summary ---
Author Organization [facility] Address [address] [facility] , [place], [place] [address] Phone Care Team Providers Care Veneer Taper Name Role Phone Style, Sydnee Ndiaye DO Primary Care Provider [phone] Encounter Details Date Type Department Care Team (Latest Contact Info) Description 07/27/2023 8:00 AM EDT Clinical Support [facility] [address] [place] [address] Keyla Mccullough, PT, DPT [address] [facility] [address] [facility] [place] [address] Benign paroxysmal vertigo of right ear (Primary Dx); Imbalance Social History Tobacco Use Types Packs/Day Years Used Date Smoking Tobacco: Never Smokeless Tobacco: Never Comments:My parents were smo kers-I lived with passive smoke from childhood Alcohol Use Standard Drinks/Week Comments Yes 2 (1 standard drink = 0.6 oz pur e alcohol) 4 per week average [facility] Utilities Answer Date Recorded In the past 12 months has [employer], gas, oil, or water [employer] threatened to shut off services in your [...] How often do you attend chur or mandaeism services? More than 4 times per year 03/28/2023 Do you belong to any clubs o r organizations such as taoism groups, unions, fraternal or athletic groups, or [...] Recorded Patient Health Questionnaire-2 Score 0 07/22/2023 [facility] of Occupat ional Health - Occupational [...] place to sleep or slept in a prison (including now)? No 03/28/2023 Sex and Gender [...] Notes * Keyla Mccullough, PT, DPT - 07/27/2023 8:00 AM EDT Physical Therapy Evaluation and Treatment Patient Name: Gianna Infante Today's Date: 07/27/2023 Referring provider: Sydnee Ross DO Current Problem: 1. Benign paroxysmal vertigo of right ear 2. Imbalance Gianna is a 77 y.o. female with dizziness that started July 15. She took 400mg of Magnesium, higher dose than usual, and started having diarrhea. The dizziness started after that. She denies roomspinning but reports feeling lightheaded. She saw her PCP and was prescribed Meclizine but isn't taking it anymore because it didn't help. She was told that she had BPPV by her PCP and was told to dothe Kev maneuver at home. She states that she wasn't told which was her affected ear so she did it on both sides. She has chronic neck pain and stopped doing the maneuver at home because she was afraid she would hurt her neck. She denies having any falls recently. She denies migraines. She has a h istory of car sickness when riding in the back seat of the car as a kid. She reports having troublethinking for the past 1.5 weeks. She started taking Lana last night for her allergies. She felt better last night but not as good this morning. She reports having cognitive testing in this building in May but doesn't have the results yet. Patient was referred to PT for vestibular rehab. Vestibular testing has not been performed. PMH: arthritis, osteoporosis, memory deficit, HTN, Anxiety, low back pain, see EEM[facility] Allergies: see [facility] Meds: see [facility] Social History: Lives alone. . Moved here from [place] 1.5 years ago to be near her son annie. 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 Patient is considered a moderate level evaluation due to number of personal factors/co morbidities,number of body systems evaluated, and the evolving symptom presentation. Outcome Measures ABC Scale: TBA Oculomotor/Positional Testing: Completed with fixation removed: No spontaneous nystagmus. No headshake nystagmus. No gaze-evoked nystagmus Roll Test L and R - positive for geotropic nystagmus without dizziness with right roll, no dizziness or nystagmus with left roll. Possible right horizontal canal BPPV. Shane-Hallpike test R - negative for posterior canal BPPV. [facility]-Hallpike test L - negative for posterior canal BPPV. Balance/Gait Gait: Patient walks at a slower than normal pace. FGA: TBA Balance: mCTSIB is normal on conditions 1, 2 and 3. Condition 4 is an average of 6/30 sec. Total Score 96/120. Assessment/Plan Patient's history appears consistent with BPPV. Prior to today's session, she did some self maneuvers at home. Her positional testing today suggests BPPV in her right horizontal canal. The Gufoni Liberatory maneuver was performed. She has impaired sensory integration with difficulty maintaining balance with her eyes closed on foam. Her history of dizziness and current deficits impair her ability to perform her volunteer work, daily activities, and hobbies safely and without fear. She will benefit from skilled PT to resolve her BPPV along with a gait and balance HEP to reduce her risk of falling with movements at home and in the community. PT treatment plan Balance retraining under various sensory conditions Gait training under various conditions Establish a home exercise program for balance and gait Discuss home hazards and safety/fall risk strategies handouts Gaze stability exercise Treat BPPV as indicated BPPV Education and HEP Goals Active STG - Independent with HEP (New Goal) Start: 07/27/23 Expected End: 08/27/23 STG - BPPV in remission (New Goal) Start: 07/27/23 Expected End: 08/27/23 LTG - Low risk for fall based on FGA at normal speed (New Goal) Start: 07/27/23 Expected End: 10/27/23 LTG - Normal mCTSIB (New Goal) Start: 07/27/23 Expected End: 10/27/23 LTG - ABC >80% (New Goal) Start: 07/27/23 Expected End: 10/27/23 Recommended visits: 4-6 visits over next 3 months Treatment: Gufoni Liberatory Maneuver completed to treat right horizontal canal BPPV. Patient with some dizziness upon sitting up at completion of maneuver. Verbal and written education provided: BPPV, Strategies for improving balance and decreasing risk for falling Educated the patient about BPPV recurrence risk and potentially modifiable medical history risk factors - Hypertension, diabetes mellitus, hyperlipidemia, cardiovascular disease or stroke, reduced vertebral artery blood flow, osteoporosis or osteopenia, sleep disorders, and vitamin D deficiency areall known risk factors for increased recurrence of BPPV. For example, physicians can check serum vitamin D level to make sure it is within normal limits. Aslong as not otherwise contraindicated medically, research has found that supplementation of VitaminD 400 IU and 500 mg of calcium carbonate twice a day can reduce BPPV recurrence (Sai et al., 2020; Sai et al., 2022). This is especially important in the winter, when serum Vitamin D and physicalactivity levels may be lower. Almost all of the modifiable risk factors listed can benefit from regular physical exercise. Patient was instructed on a daily HEP for balance. She was given the opportunity to practice, demonstrating the exercises with minimal cues. She was given written instructions with illustrations. HEP Included the following: - standing on a firm surface with eyes open and eyes closed, 3x20 sec Charges 60 minutes, Eval (mod) 72682 x 1, CRM 58407 x 1, and NMR 09799 x 1 Start time: 8:00am End time: 9:00am Keyla Mccullough, PT, DPT PT#[id number] documented in this encounter Plan of Treatment Upcoming Encounters Date Type Department Care Team (Late st Contact Info) Description 01/04/2024 11:20 AM EDT Procedure Visit [facility] [address] [facility] Medical Office [place] Floor 9 [place] [address] Katie Jones AUD 01/06/2024 2:00 PM EDT Appointment [facility] [address] [place] [address] 01/09/2024 2:00 PM EDT Office [facility] 550 [facility] [place] 19th Floor [address] [place] [address] Radha Coker MD 550 [place] [address] 01/10/2024 8:30 AM EDT Office Visit [facility] [address] [place] [address] Vandana, Sydnee Ndiaye, DO [address] [facility] [place] [address] 01/11/2024 10:00 AM EDT Office Visit [facility] - ENT & Facial Plastic Surgery [address] [place] [address] Kat Rico PA [address] [place] [address] 01/20/2024 11:45 AM EDT Clinical Support [facility] [address] [place] [address] Maria Eugenia Lucero, [facility] [address] [place] [address] 01/30/2024 8:40 AM EST Office [facility] [address] [facility] Medical Office [place] 15th Floor [address] [place] [address] Jose Monique MD 550 [facility] Medical Office [place] 15th Floor, [address] [place] [address] 02/27/2024 12:50 PM EST Office [facility] [address] [facility] Floor 4 [address] [place] [phone] Kellie Bowser, OD [address] [facility], [address] [facility] [place] [address] 06/19/2024 11:30 AM EDT Appointment [place] [address] [place] [address] 06/19/2024 1:00 PM EDT Appointment [place] [address] [facility] 120 [place] [address] 08/21/2024 1:40 PM EDT Office Visit [facility] [address] [facility] [address] [facility] [address] 3rd [place] [address] Satya Wright PA [address] [facility] [address] 3rd [place] [address] 09/05/2024 10:30 AM EDT Office Visit [facility] [address] [place] [address] Tatiana Dominguez, PROGRAM REVIEW DIRECTOR [address] [place] [address] documented as of this encounter Visit Diagnoses Diagnosis Benign paroxysmal vertigo of right ear- Primary Imbalance Abnormality of gait documented in this encounter Additional Health Concerns Assessment Noted Time PHQ-9 Depression Total Score: 0 03/31/19 24 3:16 PM EST A fall risk assessment has been complete d for the patient 07/22/2023 11:36 AM EDT documented as of this encounter Care Teams Veneer Taper Relationship Specialty Start Date End Date Vandana, Sydnee Ndiaye DO [address] [facility] [place] [address] PCP - General Family Medicine 01/17/23 documented as of this encounter
--- OUTSIDE RECORDS SUMMARY | 2023-11-14 01:03 | XMS_ITS | Encounter Summary ---
Author Organization [facility] Address [address], [place] [address] Phone Care Team Providers Care Fruit Cutter Name Role Phone Sydnee Ross DO Primary Care Provider [phone] Encounter Details Date Type Department Care Team (Late st Contact Info) Description 03/01/2023 Orders Only [facility] - Primary Care [address] [place], [place] [id number] Sydnee Ross DO [address] [facility] [place] [address] Social History Tobacco Use Types Packs/Day Years Used Date Smoking Tobacco: Never Smokeless Tobacco: Never Alcohol Use Standard Drinks/Week Comments Yes 4 (1 standard drink = 0.6 oz pur e alcohol) 4 per week average Humiliation, Afraid, Rape, and Kick questionnair e Answer Date Recorded Within the last year, have y ou been afraid of your partner or ex-partner? No 12/29/2022 Emotionally Abused Not on file 12/29/2022 Physically Abused Not on file 12/29/2022 Sexually Abused Not on file 12/29/2022 Social Connection and Isolation Panel [NHANES] A nswer Date Recorded Frequency of Communication with Friends and Fami ly Not on file 12/29/2022 Frequency of Social Gatherings with Friends and Family Not on file 12/29/2022 Attends Hoahaoism Services Not on file 12/29 Active Member of Clubs or Organizations Not on f ile 12/29/2022 Attends Club or Organization Meetings Not on marilu e 12/29/2022 Are you , , di vorced, , never , or living with a partner? 12/29/2022 AUDIT-C Answer Date Recorded Q1: How often do you have a drink containing alcohol? 4 or more times a week 12/29/2022 Q2: How many drinks containi ng alcohol do you have on a typical day when you are drinking? 1 or 2 Q3: How often do you have si x or more drinks on one occasion? Never 12/29/2022 Overall Financial Resource Strain (CARDIA) Answe r Date Recorded How hard is it for you to pa y for the very basics like food, housing, medical care, and heating? Somewhat hard 12/29/2022 PHQ-2 Answer Date Recorded Patient Health Questionnaire-2 Score 0 01/05/2023 [facility] of Occupat ional Health - Occupational Stress Questionnaire Answer Date Recorded Do you feel stress - tense, restless, nervous, or anxious, or unable to sleep at night because your mind is troubled all the time - these days? To some extent 12/29/2022 Exercise Vital Sign Answer Date Recorde d Days of Exercise per Week Not on file 2022 On average, how many minutes do you engage in exercise at this level? 60 min 12/29/2022 PRAPARE - Transportation Answer Date Re corded Lack of Transportation (Medical) Not on file 12/29/2022 In the past 12 months, has l ack of transportation kept you from meetings, work, or from getting things needed for daily living? Yes 12/29/2022 Housing Stability Vital Sign Answer Daniel e Recorded Unable to Pay for Housing in the Last Year Not o n file 12/29/2022 Number of Places Lived in the Last Year Not on f ile 12/29/2022 In the last 12 months, was t here a time when you did not have a steady place to sleep or slept in a usp (including now)? No 12/29/2022 Sex and Gender Information Value Date Recorded [...] AM EDT Procedure Visit [facility] [address] [facility] Medical Office [place] Floor 9 [place] [address] Katie Jones, LISA 01/06/2024 2:00 PM EDT Appointment [facility] [address] [place] [address] 01/09/2024 2:00 PM EDT Office Visit [facility] [address] [facility] Medical Office [place] 19th Floor [address] [place] [address] Radha Coker MD 550 [place] [address] 01/10/2024 8:30 AM EDT Office Visit [facility] [address] [place] [address] Vandana, Sydnee Ndiaye DO [address] [facility] [place] [address] 01/11/2024 10:00 AM EDT Office Visit [facility] - ENT & Facial Plastic Surgery [address] [facility] [address] [place] [address] Kat Rico, PATTIE [address] [place] [address] 01/20/2024 11:45 AM EDT Clinical Support [facility] [address] [place] [address] Maria Eugenia Lucero, ORA [address] [place] [address] 01/30/2024 8:40 AM EST Office Visit [facility] [address] [facility] [place] 15th Floor [address] [place] [address] Jose Monique MD 550 [facility] [place] 15th Floor, [address] [place] [address] 02/27/2024 12:50 PM EST Office Visit [facility] [address] [place] [phone] Kellie Bowser, OD [address], [address] [facility] [place] [address] 06/19/2024 11:30 AM EDT Appointment [place] [address] [address] 06/19/2024 1:00 PM EDT Appointment [place] [address] [address] 08/21/2024 1:40 PM EDT Office Visit [facility] at [address] [place] [address] 3rd [place] [address] Satya Wright PA [facility] 3rd Floor [place] [id number] 09/05/2024 10:30 AM EDT Office Visit [facility] [address] [place] [address] Tatiana Dominguez, KASH [address] [place] [address] documented as of this encounter Visit Diagnoses Not on filedocumented in this encounter Additional Health Concerns Assessment Noted Time A fall risk assessment has been complete d for the patient 02/16/2023 8:40 AM EST documented as of this encounter Care Teams Fruit Cutter Relationship Specialty Start Date End Date Style, Sydnee Ndiaye DO [address] [facility] 110 [facility] [place] [address] PCP - General Family Medicine 01/17/23 documented as of this encounter
--- OUTSIDE RECORDS SUMMARY | 2023-11-14 01:03 | XMS_ITS | Encounter Summary ---
Author Organization [facility] Address [address] [place] [address], [place] [address] Phone Care Team Providers Care Hose Cementer Name Role Phone Style, Sydnee Ndiaye DO Primary Care Provider [phone] Reason for Referral * Imaging (Routine) - Closed Specialty Diagnoses / Procedures Referred By Farrah shook Referred To Contact Cardiology Diagnoses SOB (shortness of breath) Procedures Echo Transthoracic (TTE) Complete UT ECHO TTHRC R-T 2D W/WOM-MODE COMPL SPEC&COLR D UT TRANSTHORACIC ECHOCARDIOGRAPHY (TTE) WITH CONTRAST, OR WITHOUT CONTRAST FOLLOWED BY WITH CONTRAST, REAL-TIME WITH IMAGE DOCUMENTATION (2D), INCLUDES M-MODE RECORDING, WHEN PERFORMED, COM UT MYOCRD STRAIN IMG SPECKLE TRCK ASSMT MYOCRD [facility] MD [address] [place] [address] Office [place] [address], [facility] [address] [place] [address] Referral ID Status Reason Start Date Expiration Date V isits Requested Visits Authorized [id number] Closed Perform Procedure 02/16/2023 03/17/2024 1 1 Reason for Visit * Imaging (Routine) - Closed Specialty Diagnoses / Procedures Referred By Contac t Referred To Contact Cardiology Diagnoses SOB (shortness of breath) Procedures Echo Transthoracic (TTE) Complete UT ECHO TTHRC R-T 2D W/WOM-MODE COMPL SPEC&COLR D UT TRANSTHORACIC ECHOCARDIOGRAPHY (TTE) WITH CONTRAST, OR WITHOUT CONTRAST FOLLOWED BY WITH CONTRAST, REAL-TIME WITH IMAGE DOCUMENTATION (2D), INCLUDES M-MODE RECORDING, WHEN PERFORMED, COM UT MYOCRD STRAIN IMG SPECKLE TRCK ASSMT MYOCRD Jsoe Turner MD [facility] Medical Office [place] 15[address], [address] [place] [address] Referral ID Status Reason Start Date Expiration Date V isits Requested Visits Authorized [id number] Closed Perform Procedure 02/16/2023 03/17/2024 1 1 Encounter Details Date Type Department Care Team (Latest Contact Info) Description 04/04/2023 12:28 PM EST - 04/04/2023 11:59 PM EST Hospital Encounter [facility] [address] [facility] Medical Office [place] [address]th [place] [address] SOB (shortness of breath) Discharge Disposition: DISCHARGED TO HOME OR SELF [...] Recorded In the past 12 months has [employer] electric, gas, oil, or water company threatened [...] any clubs o r organizations such as zoroastrian groups, unions, fraternal or athletic groups, or [...] Date Recorded Patient Health Questionnaire-2 Score 0 03/31/2023 [facility] - [...] Sign Reading Time Taken Comments Blood Pressure 162/85 04/04/2023 1:00 PM EST Pulse - - Temperature - - Respiratory Rate - - Oxygen Saturation - - Inhaled Oxygen Concentration - - Weight 68.9 kg (151 lb 14.4 oz) 04/04/2023 1:00 PM EST Height 175.3 cm (5' 9.02) 04/04/2023 1:00 PM ES T Body Mass Index 22.42 04/04/2023 1:00 PM EST documented in this encounter Medications at Time of Discharge Medication Sig Dispensed Refills Start Date End Date ascorbic jfse-cgeprdvl-urb (Emergen-C) 1,000 mg powder effervescent in packet Take by mouth once daily. 03/28/2019 atorvastatin (Lipitor) 40 mg tablet TAKE 1 TABLET BY MOUTH EVERY DAY 90 tablet 3 02/10/2023 ibuprofen 200 mg tablet Take by mouth if needed. PRN 03/28/2021 multivit with minerals/lutein (MULTIVITAMIN 50 PLUS ORAL) Take by mouth once daily. 03/28/2022 omega 3-iwg-dfk-fish oil 1,000 mg (120 mg-180 mg) capsule [...] 01/04/2024 11:20 AM EDT Procedure Visit [facility] [address] [facility] Medical Office [place] Floor 9 [place] [address] Katie Jones AUD 01/06/2024 2:00 PM EDT Appointment [facility] [address] [place] [address] 01/09/2024 2:00 PM EDT Office Visit [facility] [address] [facility] Medical Office [place] 19[address] [place] [address] Radha Coker MD [address] [place] [address] 01/10/2024 8:30 AM EDT Office Visit [facility] [address] [place] [address] Vandana, Sydnee Ndiaye DO [address] [facility] [place] [address] 01/11/2024 10:00 AM EDT Office Visit [facility]ial Plastic Surgery [address] [place] [address] Kat Rico, PATTIE [address] [place] [address] 01/20/2024 11:45 AM EDT Clinical Support [facility] [address] [place] [address] Maria Eugenia Lucero, [facility] [address] [place] [address] 01/30/2024 8:40 AM EST Office Visit [facility] [address] [facility] Medical Office [place] 15[address] [place] [address] Jose Monique MD 550 [facility] [place] 15[address], [address] [place] [address] 02/27/2024 12:50 PM EST Office Visit [facility] [address] 4 [address] [place] [phone] Kellie Bowser, OD [address], [address] [facility] [place] [address] 06/19/2024 11:30 AM EDT Appointment [facility] [address] [place] [address] 06/19/2024 1:00 PM EDT Appointment [facility] [address] [place] [address] 08/21/2024 1:40 PM EDT Office Visit [facility] at [address] [facility] [address] 3rd [place] [address] Satya Wright PA [address] 3rd [place] [address] 09/05/2024 10:30 AM EDT Office Visit [facility] [address] [place] [address] Tatiana Dominguez NP [address] [place] [address] documented as of this encounter Procedures Procedure Name Priority Date/Time Associated Diagnosis Comments ECHO TRANSTHORACIC (TTE) COMPLETE Routine 04/04/2023 1:38 PM EST SOB (shortness of breath) documented in this encounter Results * ECHO TRANSTHORACIC (TTE) COMPLETE (04/04/2023 1:38 PM EST) BSA 1.83 m2 CPACS LV stroke vol index 53.0 mL/m2 CPACS LV stroke vol BP 97.17 mL CPACS LVIDd 3.67 3.5 - 6.0 cm CPACS LV LVIDd index 2.00 cm/m2 CPACS LVIDs 2.64 2.1 - 4.0 cm CPACS LVIDs index 1.44 cm/m2 CPACS LV ESV 2D 25.582 mL CPACS LV ESV index 2D 14 ml/m2 CPACS LV EDV 2D 56.993 mL CPACS LV EDV index 2D 31 ml/m2 CPACS IVSd 1.065 0.6 - 1.1 cm CPACS LVPWD 1.13 cm CPACS LVOT diam 2.1 cm CPACS LVOT area 3.48 cm2 CPACS Fractional Shortening 2D 28 28 - 44 % CPACS LV mass 2D 127.468 g CPACS LV mass index 2D 70 g/m2 CPACS MV E pk fox 82.419 cm/s CPACS MV avg E/e' ratio 12.02 CPACS MV A pk fox 71.16 cm/s CPACS MV E/A ratio 1.16 CPACS MV e' lateral fox 8.00 cm/s CPACS MV e' septal fox 6.00 cm/s CPACS MV E/e' septal 13.74 CPACS MV E/e' lateral 10.30 CPACS LA vol A/L 45.026 mL CPACS LA vol index A/L 25 mL/m2 CPACS LVOT pk fox 1.4 m/s CPACS LVOT mn grad 3.8 mmHg CPACS LVOT pk grad 7.402 mmHg CPACS LVOT VTI 27.9 cm CPACS LA ESV A2C 37.683 mL CPACS LA ESV A2C MOD index BSA 21 mL/m2 CPACS LA ESV A4C 40.961 mL CPACS LA ESV A4C MOD index BSA 22 mL/m2 CPACS RVOT pk VTI 20.214 cm CPACS TDI S' 12.0 cm/s CPACS TAPSE 2.2 cm CPACS RA area 10.305 cm2 CPACS AV mn grad 4.075 mmHg CPACS AV pk grad 8.599 mmHg CPACS AV mn fox 0.95 m/s CPACS AV pk fox 1.5 m/s CPACS AV VTI 27.331 cm CPACS AV area index 1.9 cm2/m2 CPACS AV area cont VTI 3.6 cm2 CPACS AV area pk fox 3.2 cm2 CPACS AV Doppler fox index VTI 1.022 CPACS UT pk grad 5.741 mmHg CPACS Pulmonary regurgitation late diastolic velocity 1.20 m/s CPACS PV mn grad 2.207 mmHg CPACS PV pk fox 1.08 m/s CPACS PV pk grad 4.658 mmHg CPACS PV VTI 20.896 cm CPACS RVOT mn grad 1.851 mmHg CPACS RVOT pk grad 3.305 mmHg CPACS PV mn fox 69.78 cm/s CPACS RVOT pk fox 0.9 m/s CPACS Ascending aorta 3.02 cm CPACS Sinus of Valsalva 3.28 cm CPACS LV thickness:dimensio n 0.31 CPACS Max Age Predicted HR 143 bpm CPACS LV ESV 2D teichholz 25.58 ml CPACS LA vol index 24.5 mL/m2 CPACS LA area A2C 15.1 cm2 CPACS LA area A4C 16.9 cm2 CPACS RV-hickman basal diam 3.4 cm CPACS RV-hickman mid diam 2.4 cm CPACS RV-hickman longitudinal diam 6.7 cm CPACS Est RA pressure 3 mmHg CPACS IVC size 1.3 cm CPACS ZLVPWD 1.97 CPACS ZLVIDS -1.40 CPACS ZLVIDD -3.30 CPACS Anatomical Region Laterality Modality Ultrasound Narrative 04/04/2023 6:00 PM EST ?Left??Ventricle: Normal size. Borderline mildly increased wall thickness. Normal systolic function with a visually estimated EF of 55 - 60%. Normal diastolic function. ?Right??Ventricle: Normal size. Normal systolic function. TAPSE is 2.2 cm. ?Left??Atrium: Normal size. Left atrium volume index is 24.5 mL/m2. ?Aortic??Valve: Tricuspid. Findings consistent with mild leaflet sclerosis. No stenosis. Left Ventricle Normal size. Borderline mildly increased wall thickness. Normal wall motion. Normal systolic function with a visually estimated EF of 55 - 60%. Normal diastolic function. Right Ventricle Normal size. Normal systolic function. TAPSE is 2.2 cm. Left Atrium Normal size. Left atrium volume index is 24.5 mL/m2. Right Atrium Normal size. IVC/SVC IVC diameter is less than or equal to 21 mm and decreases greater than 50% during inspiration; therefore the estimated right atrial pressure is normal (~3 mmHg). Mitral Valve Valve structure is normal. Trace mitral valve regurgitation. No stenosis. Tricuspid Valve Valve structure is normal. No tricuspid valve regurgitation. No stenosis. Aortic Valve Tricuspid. Findings consistent with mild leaflet sclerosis. No aortic valve regurgitation. No stenosis. Pulmonic Valve Not well visualized. Valve structure is grossly normal. Trace pulmonic valve regurgitation. No stenosis. Ascending Aorta Normal Sinus of Valsalva and ascending aorta size. Pericardium No pericardial effusion. Study Details Study quality was adequate. A complete 2D, color flow Doppler and spectral Doppler echocardiogram was performed. The apical, parasternal, subcostal and suprasternal views were obtained. Patient exhibited sinus rhythm. Jose Monique MD CV ECHO PROCEDURE S documented in this encounter Visit Diagnoses Diagnosis SOB (shortness of breath) Shortness of breath documented in this encounter Additional Health Concerns Assessment Noted Time PHQ-9 Depression Total Score: 0 03/31/19 3:16 PM EST A fall risk assessment has been complete d for the patient 03/31/2023 3:16 PM EST documented as of this encounter Care Teams Hose Cementer Relationship Specialty Start Date End Date Style, Sydnee Ndiaye DO [address] [facility] [place] [address] PCP - General Family Medicine 01/17/23 documented as of this encounter
--- OUTSIDE RECORDS SUMMARY | 2023-11-14 01:03 | XMS_ITS | Encounter Summary ---
Author Organization [facility] Address [address] [place] [address], [place] [address] Phone Care Team Providers Care Tentering Machine Off Bearer Name Role Phone Style, Sydnee Ndiaye Primary Care Provider [phone] Reason for Referral * Imaging (Routine) - Closed Specialty Diagnoses / Procedures Referred By Contac t Referred To Contact Radiology Diagnoses SOB (shortness of breath) Procedures CT Chest High Res Protocol Jose Monique MD [address] [place] [address], [place] [address] Referral ID Status Reason Start Date Expiration Date Visits Re quested Visits Authorized [id number] Closed 02/16/2023 03/17/2024 1 1 Reason for Visit * Imaging (Routine) - Closed Specialty Diagnoses / Procedures Referred By Contac t Referred To Contact Radiology Diagnoses SOB (shortness of breath) Procedures CT Chest High Res Protocol Jose Monique MD [address] [place] [address], [place] [address] Referral ID Status Reason Start Date Expiration Date Visits Re quested Visits Authorized [id number] Closed 02/16/2023 03/17/2024 1 1 Encounter Details Date Type Department Care Team (Latest Contact Info) Description 04/05/2023 12:30 PM EST - 04/05/2023 11:59 PM [place] [address] SOB (shortness of breath) Discharge Disposition: DISCHARGED TO HOME OR SELF CARE (ROUTINE DISCHARGE) Social History Tobacco Use Types Packs/Day Years Used Date Smoking Tobacco: Never Smokeless Tobacco: Never Comments:My parents were smo kers-I lived with passive smoke Alcohol Use Standard Drinks/Week Comments Yes 2 (1 standard drink = 0.6 oz pur e alcohol) 4 per week average [facility] Utilities Answer Date Recorded In the past 12 months has e [employer], gas, oil, or water [employer] threatened to shut off services in your [...] week 03/28/2023 How often do you attend [facility] or restorationist services? More than 4 times per year 03/28/2023 Do you belong to any clubs o r organizations such as islam groups, unions, fraternal or athletic groups, or [...] when you are drinking? 1 or 2 4 Q3: How often do you have si x or more drinks on one occasion? Never 03/28/2023 Overall Financial Resource Strain (CARDIA) Answe r Date Recorded How hard is it for you to pa y for the very basics like food, housing, medical care, and heating? Somewhat hard 03/28/2023 PHQ-2 Answer Date Recorded Patient Health Questionnaire-2 Score 0 03/31/2023 [facility] ional [...] place to sleep or slept in a long-term (including now)? No 03/28/2023 Sex and Gender [...] Dispensed Refills Start Date End Date ascorbic rrem-whwfonst-gky (Emergen-C) 1,000 mg powder effervescent in packet Take by mouth once daily. 03/28/2019 atorvastatin (Lipitor) 40 mg tablet TAKE 1 TABLET BY MOUTH EVERY DAY 90 tablet 3 02/10/2023 ibuprofen 200 mg tablet Take by mouth if needed. PRN 03/28/2021 multivit with minerals/lutein (MULTIVITAMIN 50 PLUS ORAL) Take by mouth once daily. 03/28/2022 omega 3-nmr-zqm-fish oil 1,000 mg (120 mg-180 mg) capsule [...] 03/31/2023 07/05/2023 documented as of this encounter Miscellaneous Notes * Result Encounter Note - Jose Monique MD - 04/05/2023 1:00 PM EST Some air trapping which could suggest small airway disease. There is also some bronchiectasis on myread. Stable 6mm x2 nodule and 4mm GGO. Repeat CT recommended in 12 months. documented in this encounter Plan of Treatment Upcoming Encounters Date Type Department Care Team (Late st Contact Info) Description 01/04/2024 11:20 AM EDT Procedure Visit [facility] [address] [facility] Medical Office [address] Floor [address] [place] [phone] Katie Jones, LISA 01/06/2024 2:00 PM EDT Appointment [facility] [address] [place], [place] [id number] 01/09/2024 2:00 PM EDT Office Visit [facility] [address] [facility] Medical Office [place] 19[address] [place] [address] Radha Coker MD [address] [place] [address] 01/10/2024 8:30 AM EDT Office Visit [facility] [address] [place] [address] Sydnee Ross, [address] [facility] [place] [address] 01/11/2024 10:00 AM EDT Office Visit [facility] [address] [place] [address] Kat Rico, [place] [address] [facility] [place] [phone] 01/20/2024 11:45 AM EDT Clinical Support [facility] [address] [facility] [place] [address] Maria Eugenia Lucero LAC [address] [place] [address] 01/30/2024 8:40 AM EST Office Visit [facility] [address] [facility] Medical Office [place] 15[address] [place] [address] Jose Monique MD 550 [facility] Medical Office [place] 15[address] Floor, [address] [place] [address] 02/27/2024 12:50 PM EST Office Visit [facility] [address] [facility] 4 [address] [place] [phone]42-[address] Kellie Bowser, OD [address] [facility], [address] [facility] [place] [address] 06/19/2024 11:30 AM EDT Appointment [place] [address] [address] 06/19/2024 1:00 PM EDT Appointment [place] [address] [address] 08/21/2024 1:40 PM EDT [facility] [address] [place] [id number] [facility] NE 3rd [place] [address] Satya Wright PA [address] [facility] [address] 3rd [place] [address] 09/05/2024 10:30 AM EDT Office Visit [facility] [address] [place] [address] Tatiana Dominguez, [employer] [address] [place] [address] documented as of this encounter Procedures Procedure Name Priority Date/Time Associated Diagnosis Comments CT CHEST HIGH RES PROTOCOL Routine 04/05/2023 1:21 PM EST SOB (shortness of breath) documented in this encounter Results * CT Chest High Res Protocol (04/05/2023 1:21 PM EST) Anatomical Region Laterality Modality Chest Computed Tomogra phy 04/05/2023 4:01 PM EST Impressions 04/05/2023 4:05 PM EST 1. Bibasilar curvilinear opacities suggesting scarring. No imaging findings suggest pulmonary fibrosis. 2. Mild bibasilar air trapping on expiratory phase images consistent with small airways disease. 3. Stable indeterminate left lower lobe solid and left upper lobe pure groundglass pulmonary nodules. Continued additional follow-up CT chest in 12 months. Narrative 04/05/2023 4:05 PM EST PROCEDURE: CT CHEST HIGH RES PROTOCOL CLINICAL INDICATION: eval for fibrosis TECHNIQUE: Non-gated spiral axial images of the chest were obtained without intravenous contrast. Inspiration and expiration. COMPARISON: 12/31/2021 FINDINGS: MEDIASTINUM/HEART/VESSELS: No enlarged mediastinal hilar lymph nodes. Normal cardiac size. Trace pericardial effusion. The thoracic aorta and pulmonary arteries are normal in caliber. The imaged thyroid gland and esophagus are unremarkable. AIRWAY/LUNGS/PLEURA: Central airways are patent. Bilateral dependent atelectasis. Minimal bibasilar curvilinear opacity suggesting scarring. Stable left basilar 6 mm nodule image 217/2. Left para fissural 6 mm nodule image 205/2. Stable left upper lobe 4 mm groundglass nodule image 92/2. Bilateral multifocal air trapping. No pleural effusion or pneumothorax. VISIBLE ABDOMEN: The visualized upper abdomen demonstrate mild colonic diverticulosis without diverticulitis. SOFT TISSUES/BONES: No aggressive osseous lesions. Procedure Note Dharmesh Carpenter MD - 04/05/2023 PROCEDURE: CT CHEST HIGH RES PROTOCOL CLINICAL INDICATION: eval for fibrosis TECHNIQUE: Non-gated spiral axial images of the chest were obtainedwithout intravenous contrast. Inspiration and expiration. COMPARISON: 12/31/2021 FINDINGS: MEDIASTINUM/HEART/VESSELS: No enlarged mediastinal hilar lymph nodes. Normal cardiac size. Tracepericardial effusion. The thoracic aorta and pulmonary arteries are normalin caliber. The imaged thyroid gland and esophagus are unremarkable. AIRWAY/LUNGS/PLEURA: Central airways are patent. Bilateral dependent atelectasis. Minimalbibasilar curvilinear opacity suggesting scarring. Stable left basilar 6mm nodule image 217/2. Left para fissural 6 mm nodule image 205/2. Stableleft upper lobe 4 mm groundglass nodule image 92/2. Bilateral multifocalair trapping. No pleural effusion or pneumothorax. VISIBLE ABDOMEN: The visualized upper abdomen demonstrate mild colonic diverticulosiswithout diverticulitis. SOFT TISSUES/BONES: No aggressive osseous lesions. IMPRESSION: 1. Bibasilar curvilinear opacities suggesting scarring. No imagingfindings suggest pulmonary fibrosis. 2. Mild bibasilar air trapping on expiratory phase images consistent withsmall airways disease. 3. Stable indeterminate left lower lobe solid and left upper lobe puregroundglass pulmonary nodules. Continued additional follow-up CT chest in12 months. Jose Monique MD IMG CT PROCEDURES documented in this encounter Visit Diagnoses Diagnosis SOB (shortness of breath) Shortness of breath documented in this encounter Additional Health Concerns Assessment Noted Time PHQ-9 Depression Total Score: 0 03/31/19 24 3:16 PM EST A fall risk assessment has been complete d for the patient 03/31/2023 3:16 PM EST documented as of this encounter Care Teams Tentering Machine Off Bearer Relationship Specialty Start Date End Date Vandana, Sydnee Ndiaye DO [address] [facility] [place] [address] PCP - General Family Medicine 01/17/23 documented as of this encounter
--- OUTSIDE RECORDS SUMMARY | 2023-11-14 01:03 | XMS_ITS | Encounter Summary ---
Author Organization [facility] Address [address] [place], [place], [facility] [place] [address] Phone Care Team Providers Care Commercial Maintenance Technician Name Role Phone Style, Sydnee Zelda GUILLEN Primary Care Provider [phone] Encounter Details Date Type Department Care Team (Late st Contact Info) Description 05/30/2023 Orders Only [facility] [address] [facility] Medical Office [place] 19th [address] [place] [address] Radha Coker MD [address] [place] [address] Social History Tobacco Use Types Packs/Day Years Used Date Smoking Tobacco: Never Smokeless Tobacco: Never Comments:My parents were smo kers-I lived with passive smoke Alcohol Use Standard Drinks/Week Comments Yes 2 (1 standard drink = 0.6 oz pur e alcohol) 4 per week average [facility] Utilities Answer Date Recorded In the past 12 months has [facility] [employer], gas, oil, or water [employer] threatened to shut off services in your [...] How often do you attend chur or amish services? More than 4 times per year [...] Recorded Patient Health Questionnaire-2 Score 0 03/31/2023 [facility] [...] EDT Procedure Visit [facility] [address] [facility] Medical Office [place] Floor 9 [place] [address] Katie Jones AUD 01/06/2024 2:[address] [facility] [address] [place] [address] 01/09/2024 2:00 PM EDT Office Visit [facility] [address] [facility] Medical Office [place] [address]th [address] [place] [address] Radha Coker MD [address] [place] [address] 01/10/2024 8:30 AM EDT Office Visit [facility] - Primary Care [address] [place] [address] Style, Sydnee Ndiaye, DO [address] [facility] - [place] [address] 01/11/2024 10:00 AM EDT Office Visit [facility] Fac[facility] Pl[facility] Surgery [address] [place] [address] Kat Rico PA [address] [place] [address] 01/20/2024 11:45 AM EDT Clinical Support [facility] [address] [place] [address] Maria Eugenia Lucero, ORA [address] [place] [address] 01/30/2024 8:40 AM EST Office Visit [facility] [address] [facility] Medical Office [place] 15th [address] [place] [address] Jose Monique MD 550 [facility] Office [place] 15th [address], [address] [place] [address] 02/27/2024 12:50 PM EST Office Visit [facility] [address] [facility] [address] 4 [address] [place] [phone] Kellie Bowser, OD [address] [facility] [address], [address] [facility] [place] [address] 06/19/2024 11:[address] [facility] [address] [facility] [address] [place] [address] 06/19/2024 1:[address] [facility] [address] [place] [address] 08/21/2024 1:40 PM EDT Office Visit [facility] at [address] [facility] [address] 3rd [place] [address] Satya Wright PA [address] 3rd [place] [address] 09/05/2024 10:30 AM EDT Office Visit [facility] [address] [place] [address] Tatiana Dominguez NP [address] [place] [address] documented as of this encounter Visit Diagnoses Not on filedocumented in this encounter Additional Health Concerns Assessment Noted Time PHQ-9 Depression Total Score: 0 03/31/19 3:16 PM EST A fall risk assessment has been complete d for the patient 04/25/2023 2:29 PM EST documented as of this encounter Care Teams Commercial Maintenance Technician Relationship Specialty Start Date End Date Vandana, Sydnee Ndiaye DO [address] [facility] [place] [address] PCP - General Family Medicine 01/17/23 documented as of this encounter
--- OUTSIDE RECORDS SUMMARY | 2023-11-14 01:03 | XMS_ITS | Encounter Summary ---
Author Organization [facility] Address [address] [facility] , [place], [place] [address] Phone Care Team Providers Care Insulation Machine Operator Name Role Phone Style, Sydnee Zelda Primary Care Provider [phone] Encounter Details Date Type Department Care Team (Late st Contact Info) Description 05/30/2023 9:20 AM EST Lab [facility] [address] 1 [place] [address] Change in bowel habits; Osteoporosis, unspecified osteoporosis type, unspecified pathological fracture presence Social History Tobacco Use Types Packs/Day Years Used Date Smoking Tobacco: Never Smokeless Tobacco: Never Comments:My parents were smo kers-I lived with passive smoke Alcohol Use Standard Drinks/Week Comments Yes 2 (1 standard drink = 0.6 oz pur e alcohol) 4 per week average [facility] Utilities Answer Date Recorded In the past 12 months has e [employer], gas, oil, or water [employer] threatened to shut off services in [...] often do you attend chur ch or shinto services? More than 4 times per year 03/28/2023 Do you belong to any clubs o r organizations such as jehovah's witness groups, unions, fraternal or athletic groups, or [...] Recorded Patient Health Questionnaire-2 Score 0 03/31/2023 [facility] [...] Description 01/04/2024 11:20 AM EDT Procedure Visit [facility] [address] [facility] Medical Office [place] Floor 9 [place] [address] Katie Jones AUD 01/06/2024 2:00 PM EDT Appointment [facility] [address] [place] [address] 01/09/2024 2:00 PM EDT Office Visit [facility] [address] [facility] Medical Office [place] 19th Floor [address] [place] [address] Radha Coker MD [address] [place] [address] 01/10/2024 8:30 AM EDT Office Visit [facility] Primary Care [address] [place] [address] Vandana, Sydnee Ndiaye DO [address] [facility] - [place] [address] 01/11/2024 10:00 AM EDT Office Visit [facility] - [facility] Surgery [address] [place] [address] Kat Rico, PATTIE [address] [place] [address] 01/20/2024 11:45 AM EDT Clinical Support [facility] [address] [facility] [place] [address] Maria Eugenia Lucero, [facility] [address] [place] [address] 01/30/2024 8:40 AM EST Office Visit [facility] [address] [facility] Medical Office [place] 15th Floor [address] [place] [address] Jose Monique MD 550 [facility] [place] 15th Floor, [address] [place] [address] 02/27/2024 12:50 PM EST Office Visit [facility] [address] [place] [address] Kellie Bowser, OD [address], [address] [place] [address] 06/19/2024 11:30 AM EDT Appointment [facility] [address] [place] [address] 06/19/2024 1:00 PM EDT Appointment [place] [id number] [place] [address] 08/21/2024 1:40 PM EDT Office Visit [facility] at [address] [facility] [address] [facility] [address] 3rd [place] [address] Satya Wright PA [address] 3rd [place] [address] 09/05/2024 10:30 AM EDT Office Visit [facility] [address] [place] [address] Tatiana Dominguez NP [address] [place] [address] documented as of this encounter Procedures Procedure Name Priority Date/Time Associated Diagnosis Comments CELIAC DISEASE REFLEXIVE CASCADE Routine 05/30/2023 9:21 AM EST Change in bowel habits DEAMIDATED GLIADIN PEPTIDE (DGP) ANTIBODY, IGG Routine 05/30/2023 9:21 AM EST Change in bowel habits DEAMIDATED GLIADIN PEPTIDE (DGP) ANTIBODY, IGA Routine 05/30/2023 9:21 AM EST Change in bowel habits TISSUE TRANSGLUTAMINASE (TTG) ANTIBODY, IGG Routine 05/30/2023 9:21 AM EST Change in bowel habits COMPREHENSIVE METABOLIC PANEL Routine 05/30/2023 9:21 AM EST Osteoporosis, unspecified osteoporosis type, unspecified pathological fracture presence documented in this encounter Results * Deamidated Gliadin Peptide (DGP) Antibody, IgG (05/30/2023 9:21 AM EST) Deamidated Gliadin Peptide (DGP) Ab, IgG <0.56 0.00 - 4.99 FLU 06/01/2023 7:07 PM EST [employer] Comment: INTERPRETIVE INFORMATION: Deamidated Gliadin Peptide ?(DGP) Ab, IgG In individuals with low or deficient IgA, testing for tissue transglutaminase (tTG) and deamidated Gliadin (DGP) antibodies of the IgG isotype is performed. Positive tTG and/or DGP IgG antibody results indicate celiac disease; however, small intestinal biopsy is required to establish a diagnosis due to the lower accuracy of these markers, especially in patients without IgA deficiency. Performed By: [facility] [address] [place] [address] Art Display Maker: Abdirizak Salguero MD, PhD CLIA Number: [id number] Blood Venous blood specimen / Unknown Venipuncture / Unknown 05/30/2023 9:21 AM EST 05/30/2023 9:21 AM EST Walter Conrad MD LAB BLOOD ORDER CHAD [facility] [address] [place] [address] * Tissue Transglutaminase (tTG) Antibody, IgG (05/30/2023 9:21 AM EST) Tissue Transglutaminase Ab, IgG <0.82 0.00 - 4.99 FLU 06/01/2023 7:07 PM EST [employer] Comment: INTERPRETIVE INFORMATION: Tissue Transglutaminase Ab, IgG In individuals with low or deficient IgA, testing for tissue transglutaminase (tTG) and deamidated Gliadin (DGP) antibodies of the IgG isotype is performed. Positive tTG and/or DGP IgG antibody results indicate celiac disease; however, small intestinal biopsy is required to establish a diagnosis due to the lower accuracy of these markers, especially in patients without IgA deficiency. Performed By: [facility] [address] [place] [address] Art Display Maker: Abdirizak Salguero MD, PhD CLIA Number: [id number] Blood Venous blood specimen / Unknown Venipuncture / Unknown 05/30/2023 9:21 AM EST 05/30/2023 9:21 AM EST Walter Conrad MD LAB BLOOD ORDER CHAD Performing Organization Address [facility] Co de Phone Number [employer] [address] [place] [address] * Deamidated Gliadin Peptide (DGP) Antibody, IgA (05/30/2023 9:21 AM EST) Deamidated Gliadin Peptide (DGP) Ab, IgA <0.72 0.00 - 4.99 FLU 06/01/2023 3:23 AM EST [employer] Comment: Low IgA antibody levels suspected. Tissue transglutaminase, IgG and deamidated gliadin peptide, IgG tests to follow. INTERPRETIVE INFORMATION: Deamidated Gliadin Peptide (DGP) Ab, IgA A positive deamidated gliadin (DGP) IgA antibody result is associated with celiac disease but is not to be used as an initial screening test due to its low specificity and only occasional positivity in celiac disease patients who are negative for tissue transglutaminase (tTG) IgA antibody. Performed By: [facility] [address] [place] [id number] Art Display Maker: Abdirizak Salguero MD, PhD CLIA Number: [id number] Blood Venous blood specimen / Unknown Venipuncture / Unknown 05/30/2023 9:21 AM EST 05/30/2023 9:21 AM EST Walter Conrad MD LAB BLOOD ORDER CHAD Performing Organization Address [facility] Co de Phone Number [facility] [address] [place] [address] * (ABNORMAL) Comprehensive Metabolic Panel (05/30/2023 9:21 AM EST) Sodium 138 136 - 145 mmol/L LAB CHEMISTRY METHOD 05/30/2023 11:09 AM EST [facility] Potassium 3.9 3.5 - 5.1 mmol/L LAB CHEMISTRY METHOD 05/30/2023 11:09 AM EST [facility] Chloride 101 98 - 107 mmol/L LAB CHEMISTRY METHOD 05/30/2023 11:09 AM EST [facility] Carbon Dioxide Level 28 23 - 29 mmol/L LAB CHEMISTRY METHOD 05/30/2023 11:09 AM EST [facility] Calcium Level Total 9.1 8.6 - 10.3 mg/dL LAB CHEMISTRY METHOD 05/30/2023 11:09 AM EST [facility] Blood Urea Nitrogen 15 7 - 25 mg/dL LAB CHEMISTRY METHOD 05/30/2023 11:09 AM EST [facility] Creatinine 0.51(L) 0.60 - 1.20 mg/dL LAB CHEMISTRY METHOD 05/30/2023 11:09 AM EST [facility] Glucose 87 70 - 105 mg/dL LAB CHEMISTRY METHOD 05/30/2023 11:09 AM EST [facility] Comment: Random Glucose* Diabetes is diagnosed at blood glucose of greater than or equal to 200 mg/dL Fasting Glucose* Normal: less than 100 mg/dL Prediabetes: 100 mg/dl to 125 mg/dL Diabetes: 126 mg/dL or higher *ADA guidelines Protein Total 6.7 6.4 - 8.9 gm/dL LAB CHEMISTRY METHOD 05/30/2023 11:09 AM EST [facility] Albumin Level 4.4 3.5 - 5.7 gm/dL LAB CHEMISTRY METHOD 05/30/2023 11:09 AM EST [facility] Alkaline Phosphatase 43 34 - 104 unit/L LAB CHEMISTRY METHOD 05/30/2023 11:09 AM EST [facility] Alanine Aminotransferase 49 7 - 52 unit/L LAB CHEMISTRY METHOD 05/30/2023 11:09 AM EST [facility] Aspartate Aminotransferase 38 13 - 39 unit/L LAB CHEMISTRY METHOD 05/30/2023 11:09 AM EST [facility] Total Bilirubin 0.6 0.3 - 1.0 mg/dL LAB CHEMISTRY METHOD 05/30/2023 11:09 AM EST [facility] Anion Gap 9 2 - 11 mmol/L 05/30/2023 11:09 AM EST [facility] Calculated Osmolality 277 275 - 295 mOsm/kg 05/30/2023 11:09 AM EST [facility] U:C 29(H) 7 - 21 05/30/2023 11:09 AM EST [facility] Estimated GFR 93 >=60 mL/min/1 .73m2 05/30/2023 11:09 AM EST [facility] Comment: The eGFR is calculated [...] 1. Based on review of evidence, the [facility] Clinical Practice [place] made the decision to stop reporting eGFR by race effective 09/03/2020. Blood Venous blood specimen / Unknown Venipuncture / Unknown 05/30/2023 9:21 AM EST 05/30/2023 9:21 AM EST Radha Coker MD LAB BLOOD ORDERABLES [facility] [address] [place] [address] * Celiac Disease Reflexive Stanton (05/30/2023 9:21 AM EST) Tissue Transglutaminase Ab, IgA <1.02 0.00 - 4.99 FLU 06/01/2023 3:23 AM EST [employer] Comment: Tissue transglutaminase, IgA antibody below lower limit of detection. Deamidated gliadin peptide, IgA test to follow. INTERPRETIVE INFORMATION: Tissue Transglutaminase (tTG) ?Antibody, IgA Presence of the tissue transglutaminase (tTG) IgA antibody is associated with gluten-sensitive enteropathies such as celiac disease and dermatitis herpetiformis. Individuals with positive results should be confirmed with small intestinal biopsy to establish celiac disease diagnosis. tTG IgA antibody concentrations greater than 50 FLU exhibits higher correlation with results of duodenal biopsies consistent with celiac disease. For antibody concentrations greater than or equal to 5 FLU but less than 10 FLU, additional testing for endomysial (RAMONE) IgA concentrations may improve the positive predictive value for disease. A decrease in tTG IgA antibody concentration after initiation of a gluten-free diet may indicate a response to therapy. Performed By: [facility] [address] [place] [address] Art Display Maker: Abdirizak Salguero MD, PhD CLIA Number: [id number] Blood Venous blood specimen / Unknown Venipuncture / Unknown 05/30/2023 9:21 AM EST 05/30/2023 9:21 AM EST Walter Conrad MD LAB BLOOD ORDER CHAD [employer] [address] [place] [address] documented in this encounter Visit Diagnoses Diagnosis Change in bowel habits Other symptoms involving digestive system Osteoporosis, unspecified osteoporosis type, unspecified pathological fracture presence documented in this encounter Additional Health Concerns Assessment Noted Time PHQ-9 Depression Total Score: 0 03/31/19 24 3:16 PM EST A fall risk assessment has been complete d for the patient 04/25/2023 2:29 PM EST documented as of this encounter Care Teams Insulation Machine Operator Relationship Specialty Start Date End Date Sydnee Ross DO [address] [facility] [address] [facility] [place] [address] PCP - General Family Medicine 01/17/23 documented as of this encounter
--- OUTSIDE RECORDS SUMMARY | 2023-11-14 01:03 | XMS_ITS | Encounter Summary ---
Author Organization [facility] Address [address] [place], [place], [facility] [place] [address] Phone Care Team Providers Care Senior Agricultural Assistant Name Role Phone Style, Sydnee Zelda GUILLEN Primary Care Provider [phone] Encounter Details Date Type Department Care Team (Late st Contact Info) Description 05/24/2023 Orders Only [facility] 550 [facility] Medical Office [place] 19th [address] [place] [address] Radha Coker MD [address] [place] [address] Osteoporosis, unspecified osteoporosis type, unspecified pathological fracture presence (Primary Dx) Social History Tobacco Use Types Packs/Day Years Used Date Smoking Tobacco: Never Smokeless Tobacco: Never Comments:My parents were smo kers-I lived with passive smoke Alcohol Use Standard Drinks/Week Comments Yes 2 (1 standard drink = 0.6 oz pur e alcohol) 4 per week average [facility] Utilities Answer Date Recorded In the past 12 months has [employer], gas, oil, or water [employer] threatened to shut off services in your [...] often do you attend chur ch or anabaptist services? More than 4 times per year 03/28/2023 Do you belong to any clubs o r organizations such as episcopalian groups, unions, fraternal or athletic groups, or [...] Recorded Patient Health Questionnaire-2 Score 0 03/31/2023 [facility] of Occupat ional Health - Occupational [...] Description 01/04/2024 11:20 AM EDT Procedure Visit [facility] [address] [facility] Medical Office [place] Floor 9 [place] [address] Katie Jones AUD 01/06/2024 2:00 PM EDT Appointment [facility] [address] [place] [address] 01/09/2024 2:00 PM EDT Office Visit [facility] [address] [facility] Medical Office [place] 19th [address] [place] [id number] Radha Coker MD [address] [place] [address] 01/10/2024 8:30 AM EDT Office Visit [facility] [address] [place] [address] Vandana, Sydnee Ndiaye, [address] [facility] [place] [address] 01/11/2024 10:00 AM EDT Office Visit [facility] - ENT & Facial Plastic Surgery [address] [place] [address] Kat Rico, PATTIE [address] [place] [address] 01/20/2024 11:45 AM EDT Clinical Support [facility] [address] [place] [address] Maria Eugenia Lucero, [facility] [address] [place] [address] 01/30/2024 8:40 AM EST Office Visit [facility] [address] [facility] Medical Office [place] 15th [address] [place] [address] Jose Monique MD 550 [facility] Office [place] 15th Floor, [address] [place] [address] 02/27/2024 12:50 PM EST Office Visit [facility] [address] [place] [phone] Kellie Bowser, OD [address], [address] [facility] [place] [address] 06/19/2024 11:30 AM EDT Appointment [place] [address] [place] [address] 06/19/2024 1:00 PM EDT Appointment [place] [address] [place] [address] 08/21/2024 1:40 PM EDT Office Visit [facility] at [address] [facility] [place] 3rd [place] [address] Satya Wright PA [address] 3rd [place] [address] 09/05/2024 10:30 AM EDT Office Visit [facility] [address] [place] [address] Tatiana Dominguez NP [address] [place] [address] documented as of this encounter Results * (ABNORMAL) Comprehensive Metabolic Panel (05/30/2023 9:21 AM EST) Sodium 138 136 - 145 mmol/L LAB CHEMISTRY METHOD 05/30/2023 11:[address] [facility] Potassium 3.9 3.5 - 5.1 mmol/L LAB CHEMISTRY METHOD 05/30/2023 11:[address] [facility] Chloride 101 98 - 107 mmol/L LAB CHEMISTRY METHOD 05/30/2023 11:[address] [facility] Carbon Dioxide Level 28 23 - 29 mmol/L LAB CHEMISTRY METHOD 05/30/2023 11:[address] [facility] Calcium Level Total 9.1 8.6 - 10.3 mg/dL LAB CHEMISTRY METHOD 05/30/2023 11:[address] [facility] Blood Urea Nitrogen 15 7 - 25 mg/dL LAB CHEMISTRY METHOD 05/30/2023 11:[address] [facility] Creatinine 0.51(L) 0.60 - 1.20 mg/dL LAB CHEMISTRY METHOD 05/30/2023 11:[address] [facility] Glucose 87 70 - 105 mg/dL LAB CHEMISTRY METHOD 05/30/2023 11:[address] [facility] Comment: Random Glucose* Diabetes is diagnosed at blood glucose of greater than or equal to 200 mg/dL Fasting Glucose* Normal: less than 100 mg/dL Prediabetes: 100 mg/dl to 125 mg/dL Diabetes: 126 mg/dL or higher *ADA guidelines Protein Total 6.7 6.4 - 8.9 gm/dL LAB CHEMISTRY METHOD 05/30/2023 11:[address] [facility] Albumin Level 4.4 3.5 - 5.7 gm/dL LAB CHEMISTRY METHOD 05/30/2023 11:[address] [facility] Alkaline Phosphatase 43 34 - 104 unit/L LAB CHEMISTRY METHOD 05/30/2023 11:[address] [facility] Alanine Aminotransferase 49 7 - 52 unit/L LAB CHEMISTRY METHOD 05/30/2023 11:[address] [facility] Aspartate Aminotransferase 38 13 - 39 unit/L LAB CHEMISTRY METHOD 05/30/2023 11:[address] [facility] Total Bilirubin 0.6 0.3 - 1.0 mg/dL LAB CHEMISTRY METHOD 05/30/2023 11:[address] [facility] Anion Gap 9 2 - 11 mmol/L 05/30/2023 11:[address] [facility] Calculated Osmolality 277 275 - 295 mOsm/kg 05/30/2023 11:[address] [facility] U:C 29(H) 7 - 21 05/30/2023 11:[address] [facility] Estimated GFR 93 >=60 mL/min/1 .73m2 05/30/2023 11:09 AM EST [facility] Comment: The eGFR is calculated [...] 1. Based on review of evidence, the [facility] Clinical Practice [facility] made the decision to stop reporting eGFR by race effective 09/03/2020. Blood Venous blood specimen / Unknown Venipuncture / Unknown 05/30/2023 9:21 AM EST 05/30/2023 9:21 AM EST Radha Coker MD LAB BLOOD ORDERABLES [facility] [address] [place] [address] documented in this encounter Visit Diagnoses Diagnosis Osteoporosis, unspecified osteoporosis type, unspecified pathological fracture presence- Primary documented in this encounter Additional Health Concerns Assessment Noted Time PHQ-9 Depression Total Score: 0 03/31/19 24 3:16 PM EST A fall risk assessment has been complete d for the patient 04/25/2023 2:29 PM EST documented as of this encounter Care Teams Senior Agricultural Assistant Relationship Specialty Start Date End Date Sydnee Ross DO [address] [facility] 110 [facility] [place] [address] PCP - General Family Medicine 01/17/23 documented as of this encounter
--- OUTSIDE RECORDS SUMMARY | 2023-11-14 01:03 | XMS_ITS | Encounter Summary ---
Author Organization [facility] Address [address] [place] [address], [place] [address] Phone Care Team Providers Care Dip Stand Loader Name Role Phone Sydnee Ross DO Primary Care Provider [phone] Reason for Visit * Reason Comments Follow-up Encounter Details Date Type Department Care Team (Late st Contact Info) Description 03/31/2023 3:30 PM EST Office Visit [facility] - Primary Care [address] [place] [address] Sydnee Ross DO [address] [facility] [place] [address] Cerumen in auditory canal on examination (Primary Dx); Close exposure to COVID-19 virus; LOWE (dyspnea on exertion) Social History Tobacco Use Types Packs/Day Years Used Date Smoking Tobacco: Never Smokeless Tobacco: Never Tobacco Cessation:Counseling Given: Not Answered Comments:My parents were smokers-I lived with passive smoke Alcohol Use Standard Drinks/Week Comments Yes 2 (1 standard drink = 0.6 oz pur e alcohol) 4 per week average [facility] Utilities Answer Date Recorded In the past 12 months has e [employer], gas, oil, or water [employer] threatened to shut off services in your [...] How often do you attend chur or buddhism services? More than 4 times per year 03/28/2023 Do you belong to any clubs o r organizations such as gnosticism groups, unions, fraternal or athletic groups, or [...] Recorded Patient Health Questionnaire-2 Score 0 03/31/2023 [facility] of Occupat ional Health - Occupational Stress [...] Sign Reading Time Taken Comments Blood Pressure 123/81 03/31/2023 3:17 PM EST Pulse 68 03/31/2023 3:17 PM EST Temperature 35.9 ??C (96.6 ??F) 03/31/2023 3:17 PM ES T Respiratory Rate 16 03/31/2023 3:17 PM EST Oxygen Saturation 97% 03/31/2023 3:17 PM EST Inhaled Oxygen Concentration - - Weight 68.9 kg (152 lb) 03/31/2023 3:17 PM EST Height 175.3 cm (5' 9) 03/31/2023 3:17 PM EST Body Mass Index 22.45 03/31/2023 3:17 PM EST documented in this encounter Progress Notes * Sydnee Ross, DO - 03/31/2023 3:30 PM EST Subjective Patient ID: Gianna Infante is a 77 y.o. female who presents for Follow-up. HPI Here for cerumen removal. Has been using Debrox eardrops. Tried mineral oil however felt this made things worse. Seeing pulmonology for LOWE. Denies chest pain. Undergoing pulmonology workup, echocardiogram also ordered. Father history of CAD. Recently exposed to individuals with COVID. Currently asymptomatic. Review of Systems All other systems reviewed and are negative. Visit Vitals BP 123/81 (BP Location: Right arm, Patient Position: Sitting, BP Cuff Size: Adult) Pulse 68 Temp (!) 35.9 ??C (96.6 ??F) (Temporal) Resp 16 Objective Physical Exam Constitutional: Appearance: Normal appearance. HENT: Head: Normocephalic and atraumatic. Right Ear: Tympanic membrane, ear canal and external ear normal. Left Ear: Tympanic membrane, ear canal and external ear normal. Ears: Comments: Mild cerumen your canal, no impaction Cardiovascular: Rate and Rhythm: Normal rate and regular rhythm. Heart sounds: Murmur heard. Systolic murmur is present with a grade of 2/6. Pulmonary: Effort: Pulmonary effort is normal. Breath sounds: Normal breath sounds. Musculoskeletal: Cervical back: Neck supple. Right lower leg: No edema. Left lower leg: No edema. Skin: General: Skin is warm. Neurological: General: No focal deficit present. Mental Status: She is alert. Psychiatric: Mood and Affect: Mood normal. Behavior: Behavior normal. Assessment/Plan 1. Cerumen in auditory canal on examination No need for irrigation today. Continue current maintenance regimen with as needed Debrox 2. Close exposure to COVID-19 virus Monitor for symptoms. If patient develops symptoms or test positive for COVID recommend she return to discuss sx and tx 3. LOWE (dyspnea on exertion) Undergoing pulmonology workup. Mild murmur on exam today. Do not appreciate lower extremity edema. Family history of CAD. Echocardiogram ordered. Recommend pursuing cardiology workup. Patient would like to obtain echocardiogram first. Will follow-up on results. documented in this encounter Plan of Treatment Upcoming Encounters Date Type Department Care Team (Late st Contact Info) Description 01/04/2024 11:20 AM EDT Procedure Visit [facility] 550 [facility] Medical Office [place] Floor 9 [place] [address] Katie Jones AUD 01/06/2024 2:00 PM EDT Appointment [facility] [address] [place] [address] 01/09/2024 2:00 PM EDT Office Visit [facility] 550 [facility] Medical Office [place] 19th [address] [place] [address] Radha Coker MD [address] [place] [address] 01/10/2024 8:30 AM EDT Office Visit [facility] - Primary Care [address] [place] [address] Sydnee Ross DO [address] [facility] [place] [address] 01/11/2024 10:00 AM EDT Office Visit [facility] - ENT & Facial Plastic Surgery [address] [facility] [address] [place] [address] Kat Rico, PATTIE [address] [place] [address] 01/20/2024 11:45 AM EDT Clinical Support [facility] [address] [facility] [facility] [place] [address] Maria Eugenia Lucero LAC [address] [place] [address] 01/30/2024 8:40 AM EST Office Visit [facility] [place] 15th [address] [place] [address] Jose Monique MD 550 [facility] Medical Office [place] 15th Floor, [address] [place] [address] 02/27/2024 12:50 PM EST Office Visit [facility] [address] [facility] [address] [place] [phone] Kellie Bowser, OD [address] [facility] [address], [address] [facility] [place] [address] 06/19/2024 11:30 AM EDT Appointment [place] [address] [address] 06/19/2024 1:00 PM EDT Appointment [place] [address] [address] 08/21/2024 1:40 PM EDT Office Visit [facility] [address] 3rd [place] [address] Satya Wright PA [address] [facility] 3rd [place] [address] 09/05/2024 10:30 AM EDT Office Visit [facility] [address] [place] [address] Tatiana Dominguez, STEAM DRIER OPERATOR [address] [place] [address] documented as of this encounter Visit Diagnoses Diagnosis Cerumen in auditory canal on examination- Primary Close exposure to COVID-19 virus LOWE (dyspnea on exertion) Other dyspnea and respiratory abnormality documented in this encounter Additional Health Concerns Assessment Noted Time PHQ-9 Depression Total Score: 0 03/31/19 24 3:16 PM EST A fall risk assessment has been complete d for the patient 03/31/2023 3:16 PM EST documented as of this encounter Care Teams Dip Stand Loader Relationship Specialty Start Date End Date Vandana, Sydnee Ndiaye DO [address] [facility] [place] [address] PCP - General Family Medicine 01/17/23 documented as of this encounter
--- OUTSIDE RECORDS SUMMARY | 2023-11-14 01:03 | XMS_ITS | Encounter Summary ---
Author Organization [facility] Address [address] [place], [place], [place] [address] Phone Care Team Providers Care Manager Express Name Role Phone Style, Sydnee Zelda GUILLEN Primary Care Provider [phone]- [phone] Encounter Details Date Type Department Care Team (Late st Contact Info) Description 04/12/2023 1:30 PM EST Telemedicine [facility] [address] [facility] [address] [place] [address] Walter Conrad MD [address] [place] [address] Change in bowel habits (Primary Dx); Pancreatic lesion Social History Tobacco Use Types Packs/Day Years Used Date Smoking Tobacco: Never Smokeless Tobacco: Never Comments:My parents were smo kers-I lived with passive smoke Alcohol Use Standard Drinks/Week Comments Yes 2 (1 standard drink = 0.6 oz pur e alcohol) 4 per week average [facility] Utilities Answer Date Recorded In the past 12 months has [employer], gas, oil, or water [employer] threatened to shut off services in your [...] often do you attend chur ch or orthodoxy services? More than 4 times per year 03/28/2023 Do you belong to any clubs o r organizations such as latter day groups, unions, fraternal or athletic groups, or [...] Recorded Patient Health Questionnaire-2 Score 0 03/31/2023 [facility] of Occupat ionma Health - Occupational Stress Questionnaire Answer Date [...] place to sleep or slept in a mcfp (including now)? No 03/28/2023 Sex and Gender Information Value Date Recorded Sex Assigned at Choose not to disclose 06/2023 9:41 PM EDT Gender Identity Female 01/17/2022 5:45 PM EDT Sexual Orientation Choose not to disclose 2023 9:41 PM EDT Job Start Date Occupation Industry Not on file Not on file Not on file documented as of this encounter Progress Notes * Walter Conrad MD - 04/12/2023 1:30 PM EST Subjective Patient ID: Gianna Infante is a 77 y.o. female. HPI Ms. Infante returns for follow-up. 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 At that point she also informed me of a cyst within her pancreas that has been followed in [place]. An MRI was ordered revealing a large 2.8 x 3.5 x 3.3 cystic structure arising in the pancreatic head/uncinate process. She then underwent an endoscopic ultrasound with FNA with negative cytology as listed in my note. Currently, she reports some gelatinous discharge after eating breakfast and then going for a walk in the morning. It does cause some leakage and it was always mucus-like or gelatinous like. There is no blood. There is no abdominal pain. She is using MiraLAX but has been curtailing its use. She is not using any fiber supplementation. EUS 07/2022 Impression: - Small 11 mm submucosal lesion in the esophagus corresponding to the venous bleb seen on endoscopy. - Small hiatal hernia - There was a large 30 mm cystic lesion in the head and an adjacent multiseptated anechoic cystic lesion measuring 26 mm. There were no mural nodules or wall thickening. - The PD did not appeared dilatated. - Under doppler guidance, fluid aspirated from the large cyst- about 10 cmm aspirated and sent for CEA, amylase, mutation studies and cytology. Cytology results are pending. 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 Fine needle aspiration performed. - There was no sign of significant pathology in the main pancreatic duct. - There was no sign of significant pathology in the common bile duct. - There was no evidence of significant pathology in the left lobe of the liver. Cytologic Diagnosis Negative for malignant cells. Comments: Pancreatic cyst, thin prep slide: Negative for malignant cells. Low cellularity specimen with degenerated ductal epithelium, rare histiocytes and acellular debris. Review of Systems Objective Physical Exam Constitutional: Appearance: Normal appearance. HENT: Head: Normocephalic and atraumatic. Nose: Nose normal. Mouth/Throat: Mouth: Mucous membranes are moist. Eyes: Extraocular Movements: Extraocular movements intact. Pulmonary: Effort: Pulmonary effort is normal. Breath sounds: Normal breath sounds. Abdominal: Palpations: Abdomen is soft. Musculoskeletal: General: Normal range of motion. Cervical back: Normal range of motion. Skin: General: Skin is warm and dry. Neurological: General: No focal deficit present. Mental Status: She is alert and oriented to person, place, and time. Psychiatric: Mood and Affect: Mood normal. Behavior: Behavior normal. Thought Content: Thought content normal. Assessment/Plan There are no diagnoses linked to this encounter. Asked the patient to discontinue the MiraLAX completely and substitute for fiber supplement such asflaxseed. Explained to the patient is not likely that this is of any significance and also explained how the internal and external sphincters within the anus we can with age. With the fiber supplement, have asked for her to report back if there is no resolution of the mild incontinence. Otherwise, proceed with monitoring of the 2 cyst noted within the pancreatic head via EUS in July This is a telehealth visit that was performed with the originating site at patient's home and the distant site at [facility]. Verbal consent to participate in video visit was obtained. I discussed with the patient the nature of our telehealth visits, that: 1. I would evaluate the patient and recommend diagnostics and treatments based on my assessment 2. Our sessions are not being recorded and that personal health information is protected 3. Our team would provide follow up care in person if/when the patient needs it. This note was dictated with Assembly dictation software. Please expect the presence of software translation errors. documented in this encounter Plan of Treatment Upcoming Encounters Date Type Department Care Team (Late st Contact Info) Description 01/04/2024 11:20 AM EDT Procedure Visit [facility] 550 [facility] Medical Office [place] [address] 9 [place] [address] Katie Jones AUD 01/06/2024 2:00 PM EDT Appointment [facility] [address] [place] [address] 01/09/2024 2:00 PM EDT Office Visit [facility] 550 [facility] Medical Office [place] 19th Floor [address] [place] [address] Radha Coker MD 550 [place] [address] 01/10/2024 8:30 AM EDT Office Visit [facility] [address] [place] [address] Vandana, Sydnee Ndiaye, DO [address] [facility] [place] [address] 01/11/2024 10:00 AM EDT Office Visit [facility] - ENT & Facial Plastic Surgery [address] [place] [address] Kat Rico, PATTIE [address] [place] [address] 01/20/2024 11:45 AM EDT Clinical Support [facility] [address] [place] [address] Maria Eugenia Lucero, [facility] [address] [place] [address] 01/30/2024 8:40 AM EST Office Visit [facility] 550 [facility] Medical Office [place] 15th Floor [address] [place] [address] Jose Monique MD 550 [facility] Office [place] 15th Floor, [address] [place] [address] 02/27/2024 12:50 PM EST Office Visit [facility] [address] [place] [address] Kellie Bowser, OD [address] [facility] [place] [address] 06/19/2024 11:30 AM EDT Appointment [facility] [address] [place] [address] 06/19/2024 1:00 PM EDT Appointment [facility] [address] [place] [address] 08/21/2024 1:40 PM EDT Office Visit [facility] at [address] [facility] [facility] [address] 3rd [place] [address] Satya Wright PA [address] 3rd [place] [address] 09/05/2024 10:30 AM EDT Office Visit [facility] [address] [place] [address] Tatiana Dominguez, BREAD PAN GREASER [address] [place] [address] documented as of this encounter Visit Diagnoses Diagnosis Change in bowel habits- Primary Other symptoms involving digestive system Pancreatic lesion documented in this encounter Additional Health Concerns Assessment Noted Time PHQ-9 Depression Total Score: 0 03/31/19 3:16 PM EST A fall risk assessment has been complete d for the patient 03/31/2023 3:16 PM EST documented as of this encounter Care Teams Manager Express Relationship Specialty Start Date End Date Vandana, Sydnee Ndiaye DO [address] [facility] [place] [address] PCP - General Family Medicine 01/17/23 documented as of this encounter
--- OUTSIDE RECORDS SUMMARY | 2023-11-14 01:03 | XMS_ITS | Encounter Summary ---
Author Organization [facility] Address [address], [address], [place] [address] Phone Care Team Providers Care Metallographer Name Role Phone Style, Sydnee Zelda Primary Care Provider [phone] Encounter Details Date Type Department Care Team (Late st Contact Info) Description 04/25/2023 Orders Only [facility] [address] [facility] Medical Office [place] 15th [address] [place] [address] Shama Ames Social History Tobacco Use Types [...] has e electric, gas, oil, or water [employer] threatened to shut off services in your [...] often do you attend chur ch or zoroastrian services? More than 4 times per year [...] Recorded Patient Health Questionnaire-2 Score 0 03/31/2023 [facility] Stress Questionnaire Answer Date Recorded [...] Description 01/04/2024 11:20 AM EDT Procedure Visit [facility] [address] [facility] [place] Floor 9 [place] [address] Katie Jones AUD 01/06/2024 2:00 PM EDT Appointment [facility] [address] [place] [address] 01/09/2024 2:00 PM EDT Office Visit [facility] [address] [facility] Medical Office [place] 19th [address] [place] [address] Radha Coker MD [address] [place] [address] 01/10/2024 8:30 AM EDT Office Visit [facility] Care [address] [place] [address] Vandana, Sydnee Ndiaye DO [address] [place] [facility] [place] [address] 01/11/2024 10:00 AM EDT Office Visit [facility] - ENT & Facial Plastic Surgery [address] [place] [address] Kat Rico, PATTIE [address] [place] [address] 01/20/2024 11:45 AM EDT Clinical Support [facility] [address] [facility] [place] [address] Maria Eugenia Lucero, [facility] [address] [place] [address] 01/30/2024 8:40 AM EST Office Visit [facility] [address] [facility] [place] 15[address] [place] [address] Jose Monique MD 550 [facility] [address] 15[address], [address] [place] [address] 02/27/2024 12:50 PM EST Office Visit [facility] [address] [facility] [address] 4 [address] [place] [address] Kellie Bowser, OD [address] [facility] [address], [address] [facility] [place] [address] 06/19/2024 11:30 AM EDT App[place]ment [place] [address] [facility] [address] [place] [address] 06/19/2024 1:00 PM EDT Appointment [place] [address] [facility] [address] [place] [address] 08/21/2024 1:40 PM EDT Office Visit [facility] at [address] [facility] [address] 3rd [place] [address] Satya Wright PA [address] 3rd [place] [address] 09/05/2024 10:30 AM EDT Office Visit [facility] [address] [place] [address] Tatiana Dominguez, KASH [address] [place] [address] documented as of this encounter Visit Diagnoses Not on filedocumented in this encounter Additional Health Concerns Assessment Noted Time PHQ-9 Depression Total Score: 0 03/31/19 3:16 PM EST A fall risk assessment has been complete d for the patient 04/25/2023 2:29 PM EST documented as of this encounter Care Teams Metallographer Relationship Specialty Start Date End Date Vandana, Sydnee Ndiaye DO [address] [place] [facility] [place] [address] PCP - General Family Medicine 01/17/23 documented as of this encounter
--- OUTSIDE RECORDS SUMMARY | 2023-11-14 01:03 | XMS_ITS | Encounter Summary ---
Author Organization [facility] Address [address] [place] [address], [place] [address] Phone Care Team Providers Care Quilt Stuffer Name Role Phone Style, Sydnee Ndiaye DO Primary Care Provider [phone] Reason for Referral * Imaging (Routine) - Closed Specialty Diagnoses / Procedures Referred By Farrah shook Referred To Contact Cardiology Diagnoses SOB (shortness of breath) Procedures Echo Transthoracic (TTE) Complete SC ECHO TTHRC R-T 2D W/WOM-MODE COMPL SPEC&COLR D SC TRANSTHORACIC ECHOCARDIOGRAPHY (TTE) WITH CONTRAST, OR WITHOUT CONTRAST FOLLOWED BY WITH CONTRAST, REAL-TIME WITH IMAGE DOCUMENTATION (2D), INCLUDES M-MODE RECORDING, WHEN PERFORMED, COM SC MYOCRD STRAIN IMG SPECKLE TRCK ASSMT MYOCRD [facility] Jose Monique MD [address] [place] [address] [address], [address] [place] [address] Referral ID Status Reason Start Date Expiration Date V isits Requested Visits Authorized [id number] Closed Perform Procedure 02/16/2023 03/17/2024 1 1 * Imaging (Routine) - Closed Specialty Diagnoses / Procedures Referred By Farrah shook Referred To Contact Radiology Diagnoses SOB (shortness of breath) Procedures CT Chest High Res Protocol Jose Monique MD [address] [place] [address] 15th [facility], [address] [place] [address] Referral ID Status Reason Start Date Expiration Date Visits Re quested Visits Authorized [id number] Closed 02/16/2023 03/17/2024 1 1 Reason for Visit * Consultation (Routine) - Closed Specialty Diagnoses / Procedures Referred By Farrah shook Referred To Contact Pulmonology Diagnoses SOB (shortness of breath) Procedures SC OFFICE/OUTPATIENT NEW HIGH MDM 60-74 MINUTES Style, Sydnee Zelda, DO [address] [facility] [place] [address] Rakesh Howe MD [address] [place] [address] [address], [address] 3 [facility] at [address] [place], [place] [id number] Referral ID Status Reason Start Date Expiration Date V isits Requested Visits Authorized [id number] Closed Specialty Services Required 12/24/2022 12/24/2023 1 1 Encounter Details Date Type Department Care Team (Late st Contact Info) Description 02/16/2023 9:20 AM EST Office Visit [facility] [address] [facility] Medical Office [place] 15th Floor [address] [place] [address] Jose Monique MD [address] [facility] Medical Office [place] 15th Floor, [address] [place] [address] SOB (shortness of breath) (Primary Dx); Gastroesophageal reflux disease, unspecified whether esophagitis present; Osteoporosis, unspecified osteoporosis type, unspecified pathological fracture presence; Edema, unspecified type Social History Tobacco Use Types Packs/Day Years [...] and Family Not on file 12/29/2022 Attends Muslim Services Not on file 12/29 Active Member [...] Recorded Patient Health Questionnaire-2 Score 0 01/05/2023 [facility] - Occupational Stress [...] in a care home (including now)? No 12/29/2022 Sex and Gender [...] Sign Reading Time Taken Comments Blood Pressure 130/79 02/16/2023 8:36 AM EST Pulse 64 02/16/2023 8:36 AM EST Temperature 35.9 ??C (96.7 ??F) 02/16/2023 8:36 AM ES T Respiratory Rate 18 02/16/2023 8:36 AM EST Oxygen Saturation 98% 02/16/2023 8:36 AM EST Inhaled Oxygen Concentration - - Weight 70.2 kg (154 lb 12.8 oz) 02/16/2023 8:36 AM EST Height 177.8 cm (5' 10) 02/16/2023 8:36 AM EST Body Mass Index 22.21 02/16/2023 8:36 AM EST documented in this encounter Patient Instructions * Patient Instructions* Jose Monique MD - 02/16/2023 9:20 AM EST Please do breathing tests, CT of the lungs and ultrasound of the heart Keep up the good work exercising but use your body as your guide. We gave your PCV20 (pneumonia shot) today Recommend adding in nasal spray of Flonase each morning to help with the post- nasal drip Use 1-2 squirts of prescribed nasal steroid. Point towards your ear on each side with your head pointed down. Do not point towards the middle of the nose. Do this 1-2 times a day as directed. Please note that the patient portal is to be used for non-urgent items. It will be used to relay results and, in certain cases, next steps. Responses to results and messages may take 2-5 business days. If there is something more urgent such as a worsening change in your breathing, chest pain, low oxygen levels or passing out, please be evaluated in the Emergency Department to ensure you are takencare of in a timely and safe manner. Avoid eating or drinking 2-3 hours before bed, including large amounts of water. Do not lay down, bend over, or exercise soon after eating. Elevate head of bed 4-6 inches using blocks, wedge or bricks, or lie on left side to help speed stomach empting and reduce reflux. Eat small meals but eat them more than three times per day. Avoid spicy foods, alcohol, coffee, smoking, chocolate, citrus fruits, tomatoes, vinegar, fatty foods, or any other food, or drinks that trigger heartburn. Avoid carbonated beverages. Avoid tight fitting clothes. If taking acid paul such as Protonix (pantoprazole) it is important this is taken 30-60 minutes before breakfast on an empty stomach, followed by a meal. documented in this encounter Progress Notes * Jose Monique MD - 02/16/2023 9:20 AM EST History Of Present Illness: Gianna Infante is a 77 y.o. year old female patient with osteoporosis, hyperlipidemia, hypertension, GERD, anxiety referred for shortness of breath. Per report had a negative cardiac evaluation but all I can see is a stress test that showed no evidence of ischemia and normal EF. There is no TTE that I see. In September [address] PE protocol that showed no PE but did show some minor atelectasis of right middle lobe, lingula and right lung base. She had another CT chest in January 16 that showed a left lower lobe 5 mm nodule and some subsegmental atelectasis in the lung bases. A year ago moved from [place] and had heart palpitations and SOB. Nuclear stress test was normal. Never had palpitations. Walking up hills she feels more short of breath. Ocassionally has to stop andcatch breath for 2 minutes but not often and denies any chest pain or pressure. Was able to walk up15 flights of stairs today. 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 She sometimes has trouble keeping up with people but rarely. She states that in [place] there was a nodule and it was stable after 2 years. She was told that lung capacity wasn't what it should be about 10 years ago. No cough. Hand stiffness at times. S/p b/l knee replacements. No autoimmune history. Current inhalers: none GERD symptoms: yes most nights. Eats dinner at 5, goes to bed at 9, after dinner snack is toast at around 9. Postnasal drip symptoms: every morning has to blow nose and doesn't use any nasal rinses Past Medical History: She has a past medical history of Anxiety (1951), Arthritis of both hands (06/10/2015), Cataract (2012), Chronic constipation (08/2021), Chronic neck pain (03/26/2022), Colon polyp (2007), Compression fracture of body of thoracic vertebra ([facility]) (02/17/2022), Dental disease (1961), Diverticulosis (03/26/2022), Dry eyes (2012), Dysphagia (10/2021), GERD (gastroesophageal reflux disease), Heart murmur (1989), History of basal cell carcinoma (BCC) (06/18/2011), History of colon polyps (08/09/2018), Hypertension (2020), Insomnia (04/23/2013), Macular degeneration (Macular Pucker), Macular pucker, left eye (08/09/2012), Memory deficit (02/17/2022), Neuromuscular disorder ([facility]), 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 Social History: Smoking history: never smoker. 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 She has never used smokeless tobacco. She reports current alcohol use of about 4.0 standard drinks of alcohol per week. She reports that she does not use drugs. Surgical History: She has a past surgical history that includes Cataract extraction (Bilateral, 2020); Total knee arthroplasty (Bilateral); Vascular surgery (1978?-Varicose vein stripping in both legs); Joint replacement (12/2018 & 05/2021); Adenoidectomy (1951); and Tonsillectomy (1951). Family History: Her family history includes Alcohol abuse in her mother; Arthritis in her mother; Cataracts in her mother; Depression in her mother; Early natural in her father; Heart attack in her father; Heart disease in her father; Heart failure in her father; Hip fracture in her mother; Hypertension in her father; Vision loss in her father and mother. Allergies: Bee venom protein (honey bee); Fluoxetine; Estrogens, conjugated; Hymenoptera allergenic extract; Serotonin; Wasp venom; and Trazodone Immunizations: Immunization History Administered Date(s) Administered HepB-CpG (HEPLISAV-B) 02/20/2022, 03/24/2022 Influenza, Split (incl. purified surface antigen) 01/19/1993, 01/21/1994, 01/04/1995, 01/14/1996, 01/30/1997, 01/07/1998, 02/09/2001 Influenza, Unspecified 11/26/2014, 12/06/2021 Influenza, seasonal, injectable 01/25/2007, 01/16/2008, 01/16/2009, 01/09/2010, 01/25/2011 Influenza, seasonal, injectable, preservative free 01/24/2012, 01/01/2013, 03/15/2014 MMR 10/31/1991 Moderna SARS-CoV-2 Vaccination 05/16/2020, 06/13/2020, 01/17/2021, 07/16/2021 Moderna Sars-CoV-2 Bivalent Booster Vaccination 07/17/2022 Moderna Sars-cov-2 Vaccination 12yo And Older 12/21/2022 Novel [id number] 03/25/2009, 03/25/2009 Pneumococcal Conjugate PCV 20 02/16/2023 Pneumococcal Polysaccharide PPV23 01/25/2011, 02/20/2022 RSV,Recombinant,Protein Subunit RSVpreF, Adjuvant Reconstituted 12/24/2022 TD (adult), 2 Lf tetanus toxoid, preservative free, adsorbed 07/27/2007 Tdap 02/13/2013, 01/07/2023 Zoster, live 03/27/2012 Medications: Current Outpatient Medications Medication Instructions ascorbic puqg-iesnymsi-zof (Emergen-C) 1,000 mg powder effervescent in packet No dose, route, or frequency recorded. atorvastatin (LIPITOR) 40 mg, oral, Daily clotrimazole (Lotrimin) 1 % cream No dose, route, or frequency recorded. EPINEPHrine (EPIPEN) 0.3 mg, injection, As needed, Call 911 after use. fluticasone (Flonase) 50 mcg/actuation nasal spray 2 sprays, Each Nostril, Daily, Shake gently. Before first use, prime pump. After use, clean tip and replace cap. ibuprofen 200 mg tablet No dose, route, or frequency recorded. magnesium 250 mg tablet No dose, route, or frequency recorded. melatonin 0.5 mg tablet split tablet No dose, route, or frequency recorded. meloxicam (MOBIC) 15 mg, oral, Daily PRN multivit with minerals/lutein (MULTIVITAMIN 50 PLUS ORAL) No dose, route, or frequency recorded. omega 8-mng-bcr-fish oil 1,000 mg (120 mg-180 mg) capsule No dose, route, or frequency recorded. polyvinyl alcohol-povidon,PF, (Refresh Classic, PF,) 1.4-0.6 % eye drops in a dropperette No dose, route, or frequency recorded. zoledronic acid/mannitol-water (RECLAST IV) intravenous Review of Systems Review of systems is otherwise negative, except as noted above. Last Recorded Vitals: Blood pressure 130/79, pulse 64, temperature (!) 35.9 ??C (96.7 ??F), temperature source Temporal, resp. rate 18, height 1.778 m (5' 10), weight 70.2 kg (154 lb 12.8 oz), SpO2 98%. Physical Exam: Overall: Patient appeared well, speaking in full sentences HEENT: no erythema in bilateral nares, or posterior oropharynx Lungs: Clear to ascultation without wheezing, rales or rhonchi Heart: S1, S2 with no murmurs thrills or gallops Extremities: 1+ pitting edema bilaterally. Swelling at MCP and DIPs without tenderness. No significant swelling at PIPs. Neuro: No obvious focal deficits Relevant Results: Labs: Mildly elevated CO2 at 31 on last check but normally <30. Imaging: CT:left lower lobe 5 mm nodule and some subsegmental atelectasis in the lung bases. Procedures: Echo: No echocardiogram results found for the past 12 months PFTs: Assessment/Plan #Dyspnea #GERD #Post-nasal drip Does have some dyspnea with exertion on hills and sometimes has trouble keeping up with others her age. In the past was told that had reduced TLC and has some atelectasis vs fibrosis dependent areas and bases. Think that she get PFTs with lung volumes, DLCO and a high res CT in supine and expiratory views to further evaluate. Only exposure is black mold and some art supplies. She also does have some post-nasal drip that is mild and will treat with Flonase and GERD likely secondary to her eatingand immediately going to bed. Lifestyle modifications were provided and if those are not helpful insymptom reduction then PFTs High-res CT Flonase BID GERD precautions - especially no eating right before bedtime Continue exercise Have ordered TTE to be followed up by her PCP given the bilateral lower extremity edema in the setting of some mild dyspnea Vaccinations: uptodate on flu, RSV, updated COVID, PPSV23 will give PCV20 Lung Cancer Screening: NA RTC: 3 months after tests have been completed Jose Monique MD, MPH Pulmonary and Critical Care Medicine Answers submitted by the patient for this visit: Shortness of Breath Questionnaire (Submitted on 02/09/2023) Chief Complaint: Shortness of breath Chronicity: recurrent Onset: more than 1 year ago Frequency: intermittently Progression since onset: unchanged abdominal pain: No chest pain: No claudication: No coryza: Yes ear pain: No fever: No headaches: No hemoptysis: No leg pain: Yes leg swelling: Yes neck pain: Yes orthopnea: No PND: No rash: Yes rhinorrhea: Yes sore throat: No sputum production: Yes swollen glands: No syncope: No vomiting: No wheezing: Yes Aggravating factors: emotional upset, exercise documented in this encounter Miscellaneous Notes * PatientPass - System, Provider Not In, MD - 02/16/2023 9:43 AM EST Images from the original note were not included. Patient Education Table of Contents Pneumococcal Conjugate Vaccine (PCV20) Injection To view videos and all your education online visit, [email or web address] or scan this QR code with your smartphone. Access to this content will in one year. documented in this encounter Plan of Treatment Upcoming Encounters Date Type Department Care Team (Late st Contact Info) Description 01/04/2024 11:20 AM EDT Procedure Visit [facility] [address] [facility] Medical Office [place] Floor 9 [place] [address] Katie Jones AUD 01/06/2024 2:00 PM EDT Appointment [facility] [address] [place] [address] 01/09/2024 2:00 PM EDT Office Visit [facility] [address] [facility] Office [place] 19th Floor [address] [place] [address] Radha Coker MD [address] [place] [address] 01/10/2024 8:30 AM EDT Office Visit [facility] - Primary Care [address] [place] [address] Sydnee Ross DO [address] [facility] [place] [address] 01/11/2024 10:00 AM EDT Office Visit [facility] - ENT & Facial Plastic Surgery [address] [place] [address] Kat Rico, PATTIE [address] [place] [address] 01/20/2024 11:45 AM EDT Clinical Support [facility] [address] [facility] [place] [address] Maria Eugenia Lucero, [facility] [address] [place] [address] 01/30/2024 8:40 AM EST Office Visit [facility] [address] [facility] Medical Office [place] 15th [address] [place] [address] Jose Monique MD 550 [facility] Office [place] 15th Floor, [address] [place] [address] 02/27/2024 12:50 PM EST Office Visit [facility] [address] [facility] Floor 4 [address] [place] [address] Kellie Bowser, OD [address] [facility] [address], [address] [facility] [place] [address] 06/19/2024 11:30 AM EDT Appointment [facility] [address] [facility] [address] [place] [address] 06/19/2024 1:00 PM EDT Appointment [facility] [address] [facility] [address] [place] [address] 08/21/2024 1:40 PM EDT Office Visit [facility] [address] [facility] [address] 3rd [place] [address] Satya Wright PA [address] [facility] [address] 3rd [place] [address] 09/05/2024 10:30 AM EDT Office Visit [facility] [address] [address] Tatiana Dominguez NP [address] [address] documented as of this encounter Results * Pulmonary function testing: Full (spirometry, DLCO, lung vol); with BD (04/06/2023 4:03 PM EST) Anatomical Region Laterality Modality Other Jose Monique MD PFT ORDERABLES * CT Chest High Res Protocol (04/05/2023 [...] months. Jose Monique MD IMG CT PROCEDURES * ECHO TRANSTHORACIC (TTE) COMPLETE (04/04/2023 1:38 [...] AV Doppler fox index VTI 1.022 CPACS SC pk grad 5.741 mmHg CPACS Pulmonary regurgitation [...] encounter Visit Diagnoses Diagnosis SOB (shortness of breath)- Primary Shortness of breath Gastroesophageal reflux disease, unspecified whether esophagitis present Osteoporosis, unspecified osteoporosis type, unspecified pathological fracture presence Edema, unspecified type SOB (shortness of breath) Shortness of breath SOB (shortness of breath) Shortness of breath documented in this encounter Additional Health Concerns Assessment Noted Time A fall risk assessment has been complete d for the patient 02/16/2023 8:40 AM EST documented as of this encounter Care Teams Quilt Stuffer Relationship Specialty Start Date End Date Vandana, Sydnee Ndiaye DO [address] [facility] [place] [address] PCP - General Family Medicine 01/17/23 documented as of this encounter
--- OUTSIDE RECORDS SUMMARY | 2023-11-14 01:03 | XMS_ITS | Encounter Summary ---
Author Organization [facility] Address [address], [place] [address] Phone Care Team Providers Care Small Stock Facer Name Role Phone Style, Sydnee Zelda GUILLEN Primary Care Provider [phone] Encounter Details Date Type Department Care Team (Late st Contact Info) Description 04/25/2023 2:40 PM EST Office Visit [facility] [address] [facility] Medical [address] [place] [address] Jose Monique MD [address] [facility] Medical Office [address] [place] [address] Dyspnea on exertion (Primary Dx) Social History Tobacco Use Types Packs/Day Years Used Date Smoking Tobacco: Never Smokeless Tobacco: Never Comments:My parents were smo kers-I lived with passive smoke Alcohol Use Standard Drinks/Week Comments Yes 2 (1 standard drink = 0.6 oz pur e alcohol) 4 per week average [facility] Utilities Answer Date Recorded In the past 12 months has HBCS, gas, oil, or water [employer] threatened to shut off services in [...] often do you attend chur ch or evangelical services? More than 4 times per year 03/28/2023 Do you belong to any clubs o r organizations such as restorationism groups, unions, fraternal or athletic groups, or [...] Recorded Patient Health Questionnaire-2 Score 0 03/31/2023 [facility] [...] Sign Reading Time Taken Comments Blood Pressure 118/67 04/25/2023 2:26 PM EST Pulse 68 04/25/2023 2:26 PM EST Temperature 36.3 ??C (97.3 ??F) 04/25/2023 2:26 PM ES T Respiratory Rate 18 04/25/2023 2:26 PM EST Oxygen Saturation 95% 04/25/2023 2:26 PM EST Inhaled Oxygen Concentration - - Weight 69.3 kg (152 lb 12.8 oz) 04/25/2023 2:26 PM EST Height 175.3 cm (5' 9) 04/25/2023 2:26 PM EST Body Mass Index 22.56 04/25/2023 2:26 PM EST documented in this encounter Patient Instructions * Patient Instructions* Jose Monique MD - 04/25/2023 2:40 PM EST A saline rinse, also known as a saline nasal wash, can be used to help clear out mucus and other debris from the nasal passages. Here's how to use a saline rinse: Wash your hands thoroughly. Purchase a neti-pot at any drugstore (there are a variety of brands and types). Mix a saline solution by combining 1/4 to 1/2 teaspoon of non-iodized salt with 8 ounces of warm distilled or sterile water. You can also use a pre-made saline solution that you can buy at a drugstore. Stand over a sink and tilt your head to one side. Using a bulb syringe, squeeze the saline solution into the nostril that is higher up. The saline should flow through the nasal passages and come out of the lower nostril. Do this for about 5 to 10 seconds. Blow your nose gently to remove any remaining saline and mucus. Repeat the process on the other side by tilting your head to the other side and squeezing the saline into the upper nostril. Blow your nose again to remove any remaining saline and mucus. It's important to note that you should only use boiled (when room temperature), distilled or sterile water when making the saline solution to avoid the risk of infection. You should also use a clean bulb syringe/neti-pot and wash it thoroughly after each use. If you experience any pain or discomfort during the saline rinse, stop and consult a healthcare professional. After using the nasal saline rinses, use 1-2 squirts of prescribed nasal steroid (Fluticasone) twice a day. Point towards your ear on each side with your head pointed down. Do not point towards the middle of the nose. Do this 1-2 times a day as directed. Start using the new inhaler every day and rinse your mouth out after using it. documented in this encounter Progress Notes * Jose Monique MD - 04/25/2023 2:40 PM EST .Subjective HPI Gianna Infante is a 77 y.o. year old female patient with osteoporosis, hyperlipidemia, hypertension, GERD, anxiety returning for SOB. At her last visit she described dyspnea on exertion as well as a mild postnasal drip so she was started on Flonase and given GERD precautions. TTE was performed but only showed borderline LV wall thickness with normal function. CT showed mild bibasilar air trapping on expiratory phase with small airway disease and stable indeterminate left lower lobe solid and left upper lobe. Groundglass pulmonary nodule. PFTs were showed borderline obstruction based on ratio being less than 70 but with normalFEV1. DLCO was normal. She was just in [place] helping someone recover from knee surgery. She didn't start use the flonase as she was unsure exactly what it was was to use for and had concerns about starting it. When she had dental work done she felt like she was drowning and saw a PA and was given prilosec. But lei seller said not to use prilosec because of osteoporosis. Since I last saw her her breathing is about the same. She doesn't feel like needs an inhaler and ifshe stops for 5 minutes she able to catch her breath. She again was able to take more to hear and walks frequently in her neighborhood. Objective Overall: Patient appeared well, speaking in full sentences, thin HEENT: no erythema in bilateral nares, there is erythema in posterior oropharynx Lungs: Clear to ascultation without wheezing, rales or rhonchi Heart: S1, S2 with no murmurs thrills or gallops Extremities: No swelling Neuro: No obvious focal deficits Blood pressure 118/67, pulse 68, temperature (!) 36.3 ??C (97.3 ??F), temperature source Temporal, resp. rate 18, height 1.753 m (5' 9), weight 69.3 kg (152 lb 12.8 oz), SpO2 95%. Updated testing: === 04/05/23 === CT CHEST [...] Results: No results found for: FEV1, FVC, PFC8DBO, TLC, DLCOSBPRE Assessment/Plan # Small airway disease #Dyspnea on exertion #GERD #Post-nasal drip Patient has some dyspnea on exertion and significant postnasal drip but had not yet started the nasal rinses and Flonase as previously instructed. Given the air trapping seen on CT and borderline obstruction on PFTs recommended starting on a trial of ICS/LABA maintenance and reliever therapy. Patient was given instructions on usage and rinsing after. She also has not yet started using her nasal saline rinses followed by fluticasone and it sounds like she has significant postnasal drip. Start on ICS/LABA trial. Instruction given on usage today Start using the Flonase - instructed on usage GERD lifestyle precautions Vaccinations: uptodate on flu, RSV, COVID, pneumococcus, Needs none currently Eligible for lung cancer screening: RTC 3 months Total time spent on day of encounter: 30 minutes Jose Monique MD, MPH Pulmonary & Critical Care Medicine Answers submitted by the patient for this visit: Shortness of Breath Questionnaire (Submitted on 04/18/2023) Chief Complaint: Shortness of breath Chronicity: recurrent Onset: more than 1 year ago Frequency: every several days Progression since onset: unchanged Episode duration: 5 Minutes abdominal pain: No chest pain: No claudication: No coryza: No ear pain: No fever: No headaches: No hemoptysis: No leg pain: No leg swelling: No neck pain: Yes orthopnea: No PND: No rash: No rhinorrhea: No sore throat: No sputum production: No swollen glands: No syncope: No vomiting: No wheezing: No Aggravating factors: emotional upset, exercise documented in this encounter Plan of Treatment Upcoming Encounters Date Type Department Care Team (Late st Contact Info) Description 01/04/2024 11:20 AM EDT Procedure Visit [facility] [address] [facility] Medical Office [address] [address] [place] [address] Katie Jones AUD 01/06/2024 2:00 PM EDT Appointment [facility] [address] [place] [address] 01/09/2024 2:00 PM EDT Office Visit [facility] [address] [facility] Medical Office [address] [place] [address] Radha Coker MD [address] [place] [address] 01/10/2024 8:30 AM EDT Office Visit [facility] [address] [place] [address] Style, Sydnee Ndiaye, [address] [facility] [place] [address] 01/11/2024 10:00 AM EDT Office Visit [facility] [address] [facility] [address] [place] [address] Kat Rico, PATTIE [address] [place] [address] 01/20/2024 11:45 AM EDT Clinical Support [facility] [address] [place] [address] Maria Eugenia Lucero, ORA [address] [place] [address] 01/30/2024 8:40 AM EST Office Visit [facility] [address] [facility] Medical Office [address] [place] [address] Jose Monique MD [address] [facility] Medical Office [address] [place] [address] 02/27/2024 12:50 PM EST Office Visit [facility] [address] [place] [id number] Kellie Bowser, OD [address] [facility] [place] [address] 06/19/2024 11:30 AM EDT Appointment [place] [id number] [address] 06/19/2024 1:00 PM EDT Appointment [place] [id number] [address] 08/21/2024 1:40 PM EDT Office Visit [facility] [address]rd [place] [address] Satya Wright PA [address] [facility] 3rd [place] [address] 09/05/2024 10:30 AM EDT Office Visit [facility] [address] [place] [address] Tatiana Dominguez, KASH [address] [place] [address] documented as of this encounter Visit Diagnoses Diagnosis Dyspnea on exertion- Primary Other dyspnea and respiratory abnormality documented in this encounter Additional Health Concerns Assessment Noted Time PHQ-9 Depression Total Score: 0 03/31/19 3:16 PM EST A fall risk assessment has been complete d for the patient 04/25/2023 2:29 PM EST documented as of this encounter Care Teams Small Stock Facer Relationship Specialty Start Date End Date Style, Sydnee Ndiaye DO [address] [facility] [place] [address] PCP - General Family Medicine 01/17/23 documented as of this encounter
--- OUTSIDE RECORDS SUMMARY | 2023-11-14 01:03 | XMS_ITS | Encounter Summary ---
Author Organization [facility] Address [address], [address], [place] [address] Phone Care Team Providers Care Manager Transit Name Role Phone Unavailable Primary Care Provider Unavailabl e Reason for Visit * Reason Comments Annual Exam Encounter Details Date Type Department Care Team (Late st Contact Info) Description 01/05/2023 3:00 PM EDT Office Visit [facility] [address] [place] [address] Style, Sydnee Ndiaye, DO [address] [place] [facility] [place] [address] Medicare annual wellness visit, subsequent (Primary Dx); Other hyperlipidemia; Need for hepatitis C screening test; Insomnia, unspecified type; Tinnitus of both ears Social History Tobacco Use Types Packs/Day Years Used Date Smoking Tobacco: Never Smokeless Tobacco: Never Tobacco Cessation:Counseling Given: Not Answered Alcohol Use Standard Drinks/Week Comments Yes 4 [...] and Family Not on file 12/29/2022 Attends [employer] Not on file 12/29 Active Member [...] Recorded Patient Health Questionnaire-2 Score 0 01/05/2023 [facility] - [...] slept in a halfway (including now)? No 12/29/2022 Sex and Gender [...] Sign Reading Time Taken Comments Blood Pressure 122/81 01/05/2023 2:54 PM EDT Pulse 64 01/05/2023 2:54 PM EDT Temperature 35.9 ??C (96.6 ??F) 01/05/2023 2:54 PM ED T Respiratory Rate 16 01/05/2023 2:54 PM EDT Oxygen Saturation 100% 01/05/2023 2:54 PM EDT Inhaled Oxygen Concentration - - Weight 69.4 kg (153 lb) 01/05/2023 2:54 PM EDT Height 177.8 cm (5' 10) 01/05/2023 2:54 PM EDT Body Mass Index 21.95 01/05/2023 2:54 PM EDT documented in this encounter Progress Notes * Sydnee Ross DO - 01/05/2023 3:00 PM EDT Subjective Gianna Infante is a 77 y.o. female who presents for a Subsequent AWV Care Team: Patient Care Team: Sydnee Ross DO as PCP - General (Family Medicine) Other Suppliers or Providers: None See scanned list All prescriptions/OTC medications/herbs/supplements and vitamins were reviewed and reconciled in the chart. Current Outpatient Medications: clotrimazole (Lotrimin) 1 % cream, , Disp: , Rfl: ibuprofen 200 mg tablet, , Disp: , Rfl: magnesium 250 mg tablet, , Disp: , Rfl: melatonin 0.5 mg tablet split tablet, , Disp: , Rfl: multivit with minerals/lutein (MULTIVITAMIN 50 PLUS ORAL), , Disp: , Rfl: omega 8-bef-yar-fish oil 1,000 mg (120 mg-180 mg) capsule, , Disp: , Rfl: polyvinyl alcohol-povidon,PF, (Refresh Classic, PF,) 1.4-0.6 % eye drops in a dropperette, , Disp: , Rfl: zoledronic acid/mannitol-water (RECLAST IV), Infuse into a venous catheter., Disp: , Rfl: ascorbic khii-uvqqliug-ryv (Emergen-C) 1,000 mg powder effervescent in packet, , Disp: , Rfl: atorvastatin (Lipitor) 40 mg tablet, Take 1 tablet (40 mg) by mouth once daily., Disp: 30 tablet, Rfl: 0 diphth,pertus,acell,,tetanus (BoostRIX) 2.5-8-5 Lf-mcg-Lf/0.5mL injection, Inject 0.5 mL into the muscle 1 (one) time for 1 dose., Disp: 0.5 mL, Rfl: 0 EPINEPHrine (Epipen) 0.3 mg/0.3 mL injection syringe, Inject 0.3 mL (0.3 mg) as directed if needed for anaphylaxis. Call 911 after use., Disp: 1 each, Rfl: 0 meloxicam (Mobic) 15 mg tablet, Take 1 tablet (15 mg) by mouth if needed each day for moderate pain., Disp: 30 tablet, Rfl: 1 Pertinent Family and Personal Medical History were updated as appropriate. family history includes Alcohol abuse in her mother; Arthritis in her mother; Cataracts in her mother; Depression in her mother; Early natural in her father; Heart attack in her father; Heart disease in her father; Heart failure in her father; Hip fracture in her mother; Hypertension in her father; Vision loss in her father and mother. has a past medical history of Anxiety (1951), Arthritis of both hands (06/10/2015), Cataract (2012), Chronic constipation (08/2021), Chronic neck pain (03/26/2022), Colon polyp (2007), Compression fracture of body of thoracic vertebra (CMS/HCC) (02/17/2022), Dental disease (1961), Diverticulosis (03/26/2022), Dry eyes (2012), Dysphagia (10/2021), GERD (gastroesophageal reflux disease), Heart murmur (1989), History of basal cell carcinoma (BCC) (06/18/2011), History of colon polyps (08/09/2018), Hypertension (2020), Insomnia (04/23/2013), Macular degeneration (Macular Pucker), Macular pucker, left eye (08/09/2012), Memory deficit (02/17/2022), Neuromuscular disorder (CMS/HCC), 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 Significant medical or surgical events this year include: NONE Patient Reported Health Status: Good Functional Status Screen Does patient report dependence for any IADLs? (preparing meals OR transportation OR shopping OR managing medications, OR caring for home OR managing finances): Patient reports dependence in one or more IADLs: NONE (patient is fully independent in all IADLs) Does patient need help for ADLs? (bathing OR dressing OR toileting OR transferring OR feeding)? NO (Independent in all ADLs) ROMERO ADL Functional Eval (if indicated) Risk for Falls Screen Patient reports recent fall OR worries about falls: YES --> (Consider Timed-Up-&-Go or 5sec Tnz-nd-Bpagm) [place] Home & Safety Screen (smoke detectors, railings, grab bars in bathroom, and seatbelts) Patient does NOT have or use the following safety features: NONE (Patient reports working smoke detectors, railings on all stairs, grab bars in bath and is using seatbelts in motor vehicles) Hearing Loss Screen Does patient report trouble hearing TV / radio OR straining to hear or understand conversation?: NO Vision Screen (only FIRST AWV-- consider Snellen Chart) Cognitive Screen Does patient have memory concerns or report others have concerns?: YES --> (Known cognitive impairment diagnosis) MiniCog : Risk for Opioid Disorder or Substance Use Disorder Does the patient have an opioid prescription?: NO active opioid prescriptions Opioid Risk Tool: Depression Screening: (if depression screen not completed at intake, use link to complete screening) Depression: Not at risk (01/05/2023) PHQ-2 PHQ-2 Score: 0 The patient endorses the following risk factors for depression: Patient endorses the following riskfactors for depression: Stress, Fatigue, and Pain Physical Activity Screen: (use link to complete physical activity screen from HRA form, if not doneat intake) Physical Activity: Unknown (12/29/2022) Exercise Vital Sign Days of Exercise per Week: Not on file Minutes of Exercise per Session: 60 min Alcohol Use Screen: (use link to complete Alcohol screening from HRA form, if not done at intake) Alcohol Use: Not At Risk (12/29/2022) AUDIT-C Frequency of Alcohol Consumption: 4 or more times a week Average Number of Drinks: 1 or 2 Frequency of Binge Drinking: Never Audit-C Score: 4 Tobacco Use: Tobacco Use: Low Risk (01/05/2023) Patient History Smoking Tobacco Use: Never Smokeless Tobacco Use: Never Passive Exposure: Not on file End of Life Planning / Advance Care Planning: (OPTIONAL for Initial or Subsequent AWV) Does patient have a designated healthcare decision maker in case of incapacitation?: YES (consider confirming with patient they have an advanced care planning document designating this individual andthat the individual is documented in the chart as a surrogate decision maker under Advance Care Brenda nning tab) No further advanced care planning discussion. (total time less than 16 minutes) Objective Blood pressure 122/81, pulse 64, temperature (!) 35.9 ??C (96.6 ??F), temperature source Temporal, resp. rate 16, height 1.778 m (5' 10), weight 69.4 kg (153 lb), SpO2 100%. Body mass index is 21.95 kg/m??. Assessment/Plan --COMPLETE and COPY below into the Patient Instructions printed with AVS OR into a [employer] Message OR into a letter after visit for patient as the Personalized Prevention Plan-- Personal Prevention Plan Health Risks identified today: At Risk for Falls -- Falls are dangerous, but preventable. It is recommended to focus on home safety (adequate lighting, avoid loose rugs or trip hazards, installing railings and grab bars, etc), andto work on balance and strengthening exercises. You can find more information from the CDC at: cdc.g ov/shea/pdf/[email or web address].pdf Signs of Possible Cognitive Impairment -- You can learn more about types of follow up testing and referrals at: [employer]ORG Community Resource Referrals: EXERCISE: Go to [employer], Consider a local [employer] membership ([employer] NETWORK[employer].org/find-your-y), Find free online exercise classes from [facility] [employer]. Current Conditions affecting your health and the management plan: Problem List with Current Assessment Plan No problem-specific Assessment & Plan notes found for this encounter. The following were ordered today: Orders Placed This Encounter Procedures Chemistry Profile Lipid Hepatitis C Antibody A personalized list of recommended screening tests and immunizations (based on expert recommendations and our discussion of the risks and benefits of these services for you) can be found below: Health Maintenance Due Topic Date Due Medicare Annual Wellness (AWV) Never done Bone Density Scan Never done Hepatitis C Screening Never done Zoster Vaccines (2 of 3) 05/22/2012 COVID-19 Vaccine (6 - Moderna series) 11/16/2022 Influenza Vaccine (1) 11/26/2022 Pneumococcal Vaccine: 65+ Years (2 - PCV) 02/20/2023 Health Maintenance: Immunizations: Tdap-due COVID shingrix flu Pneumococcal RSV Hep B-utd Colonoscopy: 2021-return 5 years PAP: No longer indicated Mammogram: due, upcoming Osteoporosis Screening: due, upcoming Hep C screen: due Labs: CBC CMP reviewed. Due lipid panel AWV: Patient is doing well. We discussed diet and exercise and its benefits on cardiovascular health. Age appropriate screenings/health maintenance were reviewed. Upcoming mammogram and DEXA bone scan. Recommend Tdap, otherwise immunizations are up to date. Obtaining labs from tray line worker, will add l ipid panel and hepatitis C screen.. Anticipatory guidance provided. HRA was reviewed with the patient and scanned into EMR Hld-cont atorvastatin 40mg, check lipid panel Insomnia-continue CBT, sleep hygiene and as needed melatonin Tinnitus b/l: dec sensorineural hearing loss with audiology exam. Continue to monitor documented in this encounter Plan of Treatment Upcoming Encounters Date Type Department Care Team (Late st Contact Info) Description 01/04/2024 11:20 AM EDT Procedure Visit [facility] [address] [facility] [place] [address] [place] [address] Katie Jones AUD 01/06/2024 2:00 PM EDT Appointment [facility] [address] [place] [address] 01/09/2024 2:00 PM EDT Office Visit [facility] [address] [facility] [place] [address] [place] [address] Radha Coker MD [address] [place] [address] 01/10/2024 8:30 AM EDT Office Visit [facility] [address] [place] [address] Vandana, Sydnee Ndiaye DO [address] [facility] [place] [address] 01/11/2024 10:00 AM EDT Office Visit [facility] [address] [place] [address] Kat Rico, PATTIE [address] [place] [address] 01/20/2024 11:45 AM EDT Clinical Support [facility] [address] [place] [address] Maria Eugenia Lucero, ORA [address] [place] [address] 01/30/2024 8:40 AM EST Office Visit [facility] [address] [facility] [place] [address] [place] [address] Jose Monique MD [address] [facility] [place] [address], [address] [place] [address] 02/27/2024 12:50 PM EST Office Visit [facility] [address] [facility] [address] [place] [phone] Kellie Bowser, OD [address] [facility] [address] [facility] [place] [address] 06/19/2024 11:30 AM EDT Appointment [place] [address] [address] 06/19/2024 1:00 PM EDT Appointment [place] [address] [address] 08/21/2024 1:40 PM EDT Office Visit [facility] at [address] [place] [address] 3rd [place] [address] Satya Wright PA [address] [facility] 3rd [place] [address] 09/05/2024 10:30 AM EDT Office Visit [place] [address] [place] [address] Tatiana Dominguez, CLEANER [address] [facility] [place] [address] documented as of this encounter Results * Hepatitis C Antibody (01/05/2023 3:58 PM EDT) [facility] Hepatitis C Antibody Negative Negative LAB IMMUNOASSAY METHOD 01/07/2023 10:57 AM EDT [facility] Comment: Reference Range: Positive Screen: Presumptive [...] Ndiaye Style DO LAB BLOOD ORDERABLE S [facility] [address] [place] [address] * Chemistry Profile Lipid (01/05/2023 3:58 PM EDT) Cholesterol Total 144 <=200 mg/dL LAB CHEMISTRY METHOD 01/05/2023 8:00 PM EDT [facility] Comment: According to NCEP ATPIII Guidelines, after a 9 to 12 hour fast: ? Less than 200 mg/dL ?Desirable ? 200-239 mg/dL ?Borderline High ? Greater than or equal to 240 mg/dL ? High Triglyceride 90 <=149 mg/dL LAB CHEMISTRY METHOD 01/05/2023 8:00 PM EDT [facility] Comment: According to NCEP ATPIII Guidelines, after a 9 to 12 hour fast: Less than 150 mg/dL ?Normal 150-199 mg/dL ?Borderline High 200-499 mg/dL ?High Greater than or equal to 500 mg/dL ? Very High HDL Cholesterol 64 23 - 92 mg/dL LAB CHEMISTRY METHOD 01/05/2023 8:00 PM EDT [facility] Comment: According to NCEP ATPIII Guidelines, after a 9 to 12 hour fast: Less than 40 mg/dL ? Low Greater than or equal to 60 mg/dL ?High HDL Cholesterol >/= 60 mg/dL counts as a negative risk factor: ??Its presence removes one risk factor from the total count. Non-HDL Cholesterol 80 <=129 mg/dL 01/05/2023 8:00 PM EDT [facility] Comment: If LDL Goal is: ? Non-HDL Goal should be: < 160 mg/dL ? < 190 mg/dL < 130 mg/dL ? < 160 mg/dL < 100 mg/dL ? < 130 mg/dL < 70 ??mg/dL ? < 100 mg/dL LDL Cholesterol 62 mg/dL 8:00 PM EDT [facility] Comment: According to NCEP ATPIII Guidelines, [...] 18 <=29 mg/dL 01/05/2023 8:00 PM EDT [facility] Blood Venous blood specimen / Unknown Venipuncture / Unknown 01/05/2023 3:58 PM EDT 01/05/2023 3:58 PM EDT Sydnee Ross DO LAB BLOOD ORDERABLE S Performing Organization Address City/State/[facility] Co de Phone Number [facility] [address] [place] [address] documented in this encounter Visit Diagnoses Diagnosis Medicare annual wellness visit, subsequent- Primary Other hyperlipidemia Need for hepatitis C screening test Special screening examination for other specified viral diseases Insomnia, unspecified type Tinnitus of both ears Unspecified tinnitus documented in this encounter Additional Health Concerns Assessment Noted Time A fall risk assessment has been complete d for the patient 01/05/2023 2:56 PM EDT documented as of this encounter
--- OUTSIDE RECORDS SUMMARY | 2023-11-14 01:03 | XMS_ITS | Encounter Summary ---
Author Organization [facility] Address [address] [place] [address], [place] [address] Phone Care Team Providers Care Appointment Setter Name Role Phone Style, Sydnee Ndiaye DO Primary Care Provider [phone] Reason for Referral * Consultation (Routine) - Authorized Specialty Diagnoses / Procedures Referred By Farrah shook Referred To Contact Physical Therapy Diagnoses Cervical spondylosis Lumbar spondylosis Occipital neuralgia of left side Procedures MD OFFICE/OUTPATIENT [facility] 60-74 MINUTES Hieu Giles MD [address] [facility] [place] [id number] Referral ID Status Reason Start Date Expiration Date Visits Requested Visits Authorized [id number] Authorized Specialty Services Required 3 08/15/2024 10 10 Scheduling Instructions Please call one of the following phone numbers to schedule: Orthopaedic, Sports & Spine Physical Therapy: [phone] - [facility] [phone] - [facility] [phone] - [place] [phone] - [place] [phone] - [facility] [phone] - [place] [phone] - [place] [phone] - [place] [phone] - [facility] [phone] - [place] [phone] - [facility]: [facility]: [phone] [email or web address] Reason for Visit * Reason Comments Pain Follow up after proc edure Follow-up Follow up after proc edure Encounter Details Date Type Department Care Team (Late st Contact Info) Description 02/14/2023 2:15 PM EST Office Visit [facility] [address] [place] [address] Hieu Giles MD [address] [facility] [place] [address] Cervical spondylosis (Primary Dx); Lumbar spondylosis; Occipital neuralgia of left side Social History Tobacco Use Types Packs/Day Years [...] and Family Not on file 12/29/2022 Attends [employer] Not on file 12/29 Active Member [...] when you are drinking? 1 or 2 3 Q3: How often do you have si x or more drinks on one occasion? Never 12/29/2022 Overall Financial Resource Strain (CARDIA) Answe r Date Recorded How hard is it for you to pa y for the very basics like food, housing, medical care, and heating? Somewhat hard 12/29/2022 PHQ-2 Answer Date Recorded Patient Health Questionnaire-2 Score 0 01/05/2023 [facility] of Occupat ional Health - Occupational Stress [...] slept in a alf (including now)? No 12/29/2022 Sex and Gender [...] Sign Reading Time Taken Comments Blood Pressure 133/81 02/14/2023 2:07 PM EST Pulse 66 02/14/2023 2:07 PM EST Temperature - - Respiratory Rate - - Oxygen Saturation - - Inhaled Oxygen Concentration - - Weight 69.4 kg (153 lb) 02/14/2023 2:06 PM EST Height 177.8 cm (5' 10) 02/14/2023 2:06 PM EST Body Mass Index 21.95 02/14/2023 2:06 PM EST documented in this encounter Progress Notes * Hieu Giles MD - 02/14/2023 2:15 PM EST Interval history: 77-year-old woman returns. She have [...] either upper extremity. She does take occasional zvbh-twc-yklijiq ibuprofen with some benefit, she states acetaminophen typically does not help her. She has had no injections in her neck or back. She believes she had an MRI of her cervical spine in [place] but we do not have records or films to review today. She is recently relocated here to [place]. Past medical and surgical history, allergies and medications, family and social history, reviewed in the electronic record and intake. Review of systems as above. Exam alert oriented fluent no distress HEENT normal pulmonary normal effort/rate cardiovascular normal perfusion/ G.I. unremarkable habitus spine no obvious or palpable defect, uncomfortable cervical rotation and lumbar extension range of motion musculoskeletal normal bilateral major joint neurologic nonfocal 5/5 all bilateral strength exposed skin normal no edema bilateral I directly reviewed recent spine studies spine clinic imaging and records reviewed September 07, 2022 cervical MRI reviewed with multilevel spondylosis Impressions/recommendations: 77-year-old woman with chronic axial spine pain, facet syndrome, cervical and referred headache, lumbar, all on the left side. She has chronic left cervical facet syndrome. We reviewed options. It ispossible that the source is lower joints of the cervical spine. We blocked the upper and she had noeffect. Could consider medial branch block to the lower joints. Could consider trigger point injections. I advised that she consider jzoy-tuo-xpmwsbk topical medication for pain. No immediate need for new spine imaging today. Continue exercise as tolerated and is learned in therapy. Consider acetaminophen plus anti- inflammatory for synergy. Her symptoms are not severe and has no dysfunction. For now, return as needed. JCK Answers submitted by the patient for this visit: Spine Patient Questionnaire (Submitted on 02/07/2023) Chief Complaint: SPINE MYCHART PATIENT RFV Returning for same problem: yes Reason for visit: to discuss pain or some other problem in neck, back, arms or legs Primary complaint: neck Secondary complaint: lower back Third complaint: no other body area has pain Red flags: walking seems more unbalanced, hands seem more clumsy, recent loss of bowel control, recent loss of bladder (urination) control [she denies these - JCK] Problem impact: has no major limitations on their daily activities Had accident or injury: did not have an accident Neck pain description: aching pain Neck pain trending: staying about the same Neck pain worst: 7 Neck pain average: 6 Neck pain frequency: 80% Neck resting pain reflief: 40% Neck pain worse: walking Neck pain better: lying down Lower back complaint: sharp pain Lower back pain trending: staying about the same Lower back pain worst: 7 Lower back pain average: 3 Lower back pain frequency: 10% Lower back resting pain reflief: 90% Lower back pain worse: standing Lower back pain better: lying down documented in this encounter Plan of Treatment Upcoming Encounters Date Type Department Care Team (Late st Contact Info) Description 01/04/2024 11:20 AM EDT Procedure Visit [facility] [address] [facility] Medical Office [place] Floor 9 [place] [address] Katie Jones AUD 01/06/2024 2:00 PM EDT Appointment [facility] [address] [place] [address] 01/09/2024 2:00 PM EDT Office Visit [facility] [address] [facility] Medical Office [place] 19th [address] [place] [address] Radha Coker MD [address] [place] [address] 01/10/2024 8:30 AM EDT Office Visit [facility] - Primary Care [address] [place] [address] Vandana, Sydnee Ndiaye DO [address] [facility] [place] [address] 01/11/2024 10:00 AM EDT Office Visit [facility] - ENT & Facial Plastic Surgery [address] [facility] [address] [place] [address] Kat Rico, PA [address] [place] [address] 01/20/2024 11:45 AM EDT Clinical Support [facility] [address] [place] [address] Maria Eugenia Lucero LAC [address] [place] [address] 01/30/2024 8:40 AM EST Office Visit [facility] [address] [facility] Office [place] 15th [address] [place] [address] Jose Monique MD 550 [facility] Office [place] 15th Floor, [address] [place] [address] 02/27/2024 12:50 PM EST Office Visit [facility] [address] [facility] Floor 4 [address] [place] [phone] Kellie Bowser, OD [address], [address] [place] [address] 06/19/2024 11:30 AM EDT Appointment [place] [address] [address] [address] 06/19/2024 1:00 PM EDT Appointment [place] [address] [place] [address] [address] 08/21/2024 1:40 PM EDT Office [facility] [address] 3rd [place] [address] Satya Wright PA [address] [facility] [address] 3rd [place] [address] 09/05/2024 10:30 AM EDT Office Visit [facility] [address] [place] [address] Tatiana Dominguez, MARINE METEOROLOGIST [address] [place] [address] Scheduled Referrals Name Type Priority Associated Diagnoses Order Schedule Ambulatory referral to Physical Therapy Outpatient Referral Routine Cervical spondylosis Lumbar spondylosis Occipital neuralgia of left side Expected: 02/14/2023 (Approximate), Expires: 02/15/2024 documented as of this encounter Visit Diagnoses Diagnosis Cervical spondylosis- Primary Cervical spondylosis without myelopathy Lumbar spondylosis Lumbosacral spondylosis without myelopathy Occipital neuralgia of left side documented in this encounter Additional Health Concerns Assessment Noted Time A fall risk assessment has been complete d for the patient 02/14/2023 2:03 PM EST documented as of this encounter Care Teams Appointment Setter Relationship Specialty Start Date End Date Vandana, Sydnee Ndiaye DO [address] [facility] [place] [address] PCP - General Family Medicine 01/17/23 documented as of this encounter
--- OUTSIDE RECORDS SUMMARY | 2023-11-14 01:03 | XMS_ITS | Encounter Summary ---
Author Organization [facility] Address [address], [place] [address] Phone Care Team Providers Care Rail Car Driver Name Role Phone Style, Sydnee Ndiaye DO Primary Care Provider [phone] Reason for Visit * (Routine) - Closed Specialty Diagnoses / Procedures Referred By Farrah shook Referred To Contact Diagnoses Change in bowel habits Procedures Pancreatic Elastase, Fecal Walter Conrad MD [address] [facility] 5, [address] [place] [address] Referral ID Status Reason Start Date Expiration Date Visits Re quested Visits Authorized [id number] Closed 05/10/2023 11/08/2024 1 1 Encounter Details Date Type Department Care Team (Late st Contact Info) Description 05/16/2023 10:20 AM EST Lab [facility] [address] Floor 1 [place] [address] Change in bowel habits Social History Tobacco Use Types Packs/Day Years Used Date Smoking Tobacco: Never Smokeless Tobacco: Never Comments:My parents were smo kers-I lived with passive smoke Alcohol Use Standard Drinks/Week Comments Yes 2 (1 standard drink = 0.6 oz pur e alcohol) 4 per week average [facility] Utilities Answer Date Recorded In the past 12 months has e [employer], gas, oil, or water [employer] threatened to shut off services in your [...] How often do you attend chur or congregational services? More than 4 times per year [...] Recorded Patient Health Questionnaire-2 Score 0 03/31/2023 [facility] [place] of Occupat ional Health - Occupational Stress [...] EDT Procedure Visit [facility] [address] [place] Medical Office [place] Floor 9 [place] [address] Katie Jones AUD 01/06/2024 2:[address] [facility] [address] [place] [address] 01/09/2024 2:00 PM EDT Office Visit [facility] [address] [facility] Medical Office [place] 19th Floor [address] [place] [address] Radha Coker MD 550 [place] [address] 01/10/2024 8:30 AM EDT Office Visit [facility] - Primary Care [address] [place] [address] Vandana, Sydnee Ndiaye DO [address] [facility] [place] [address] 01/11/2024 10:00 AM EDT Office Visit [facility] - ENT & Facial Plastic Surgery [address] [place] [address] Kat Rico, [place] [address] [place] [address] 01/20/2024 11:45 AM EDT Clinical Support [facility] at [facility] [address] [place] [address] Maria Eugenia Lucero, [facility] [place] [address] 01/30/2024 8:40 AM EST Office Visit [facility] [address] [facility] Medical Office [place] 15th Floor [address] [place] [address] Jose Monique MD 550 [facility] [address] 15th Floor, [address] [place] [address] 02/27/2024 12:50 PM EST Office Visit [facility] [address] [facility] [address] [place] [address] Kellie Bowser, OD [address] [facility] [address], [address] [facility] [place] [address] 06/19/2024 11:30 AM EDT Appointment [place] [address] [place] [address] 06/19/2024 1:00 PM EDT Appointment [place] [address] [place] [address] 08/21/2024 1:40 PM EDT Office Visit [facility] at [address] [place] [address] NE 3rd [place] [address] Satya Wright PA [facility] [address] 3rd [place] [address] 09/05/2024 10:30 AM EDT Office Visit [facility] [address] [place] [address] Tatiana Dominguez, WOODWORKER HELPER [address] [place] [address] documented as of this encounter Procedures Procedure Name Priority Date/Time Associated Diagnosis Comments CALPROTECTIN FECES Routine 05/16/2023 8: 45 AM EST Change in bowel habits C DIFFICILE TOXIN ASSAY FECAL BY PCR Routine 05/16/2023 8:45 AM EST Change in bowel habits [id number] QUANT STOOL Routine 05/16/2023 8:45 AM EST Change in bowel habits GIARDIA ANTIGEN FECES Routine 05/16/2023 8:45 AM EST Change in bowel habits PANCREATIC ELASTASE, FECAL Routine 05/16/2023 8:45 AM EST Change in bowel habits documented in this encounter Results * Pancreatic Elastase, Fecal (05/16/2023 8:45 AM EST) Pancreatic Elastase, Fecal >800 >=100 ug/g 05/20/2023 5:49 AM EST [employer] Comment: REFERENCE INTERVAL: Pancreatic Elastase Fecal by ?Immunoassay ??Less than 100 ug/g............Severe insufficiency ??100 - 199 ug/g................Moderate insufficiency ??200 ug/g or greater...........Normal INTERPRETIVE INFORMATION: Pancreatic Elastase ?Fecal by Immunoassay Reference intervals do not apply for infants less than one month old. Performed By: [facility] [address] [place] [id number] Cigarette Vendor: Abdirizak Salguero MD, PhD CLIA Number: [id number] Stool Rectal contents / Unknown Non-blood Collection / Unknown 05/16/2023 8:45 AM EST 05/16/2023 10:33 AM EST Walter Conrad MD LAB BODY FLUIDS AND STOOLS ORDERABLES [employer] [address] [place] [address] * Giardia Antigen Feces (05/16/2023 8:45 AM EST) Giardia Antigen Feces Negative Negative 05/19/2023 5:39 PM EST [employer] Comment: Performed By: [facility] [address] [place] [address] Cigarette Vendor: Abdirizak Salguero MD, PhD CLIA Number: [id number] Stool Rectal contents / Unknown Non-blood Collection / Unknown 05/16/2023 8:45 AM EST 05/16/2023 10:33 AM EST Walter Conrad MD LAB BODY FLUIDS AND STOOLS ORDERABLES Performing Organization Address City/[facility]/ZIP Co de Phone Number [employer] [address] [place] [address] * Calprotectin Feces (05/16/2023 8:45 AM EST) Calprotectin Stool 10 <=49 ug/g 05/20/2023 5:50 AM EST [employer] Comment: REFERENCE INTERVAL: Calprotectin, Fecal by Immunoassay ??Less than 50 ug/g.........Normal ??50-120 ug/g...............Borderline elevated, test should be ?re-evaluated in 4-6 weeks. ??121 ug/g or greater.......Elevated Performed By: [facility] [address] [place], [place] [id number] Cigarette Vendor: Abdirizak Salguero MD, PhD CLIA Number: [id number] Stool Rectal contents / Unknown Non-blood Collection / Unknown 05/16/2023 8:45 AM EST 05/16/2023 10:33 AM EST Walter Conrad MD LAB BODY FLUIDS AND STOOLS ORDERABLES Performing Organization Address City/[facility]/ZIP Co de Phone Number [employer] [address] [place] [address] * C difficile Toxin Assay Fecal by PCR (05/16/2023 8:45 AM EST) Clostridiodes difficile PCR Negative Negative [employer] GXXVI-4 05/16/2023 11:08 PM EST [facility] Comment:Toxigenic C. Diffici le Not Detected. Stool (Stool) Non-blood Collection / Unknown 05/16/2023 8:45 AM EST 05/16/2023 10:33 AM EST Walter Conrad MD LAB MICROBIOLOG Y - GENERAL ORDERABLES [facility] [address] [place] [address] * Syagj-9-Qotqjhwtzjx Quant Stool (05/16/2023 8:45 AM EST) Hopms-2-Eblusuyoify Quant Stool 0.13 0.00 - 0.50 mg/g 05/18/2023 6:48 PM EST [employer] Comment: INTERPRETIVE INFORMATION: A1A ZAHIRA, Random Stool This test was developed and its performance characteristics determined by [facility]. It has not been cleared or approved by the [place] Food and Drug Administration. This test was performed in a CLIA certified laboratory and is intended for clinical purposes. Performed By: [facility] [address] [place] [address] Cigarette Vendor: Abdirizak Salguero MD, PhD CLIA Number: [id number] Stool Rectal contents / Unknown Non-blood Collection / Unknown 05/16/2023 8:45 AM EST 05/16/2023 10:33 AM EST Walter Conrad MD LAB BODY FLUIDS AND STOOLS ORDERABLES Performing Organization Address City/[facility] Co de Phone Number [employer] [address] [place] [address] documented in this encounter Visit Diagnoses Diagnosis Change in bowel habits Other symptoms involving digestive system documented in this encounter Additional Health Concerns Assessment Noted Time PHQ-9 Depression Total Score: 0 03/31/19 24 3:16 PM EST A fall risk assessment has been complete d for the patient 04/25/2023 2:29 PM EST documented as of this encounter Care Teams Rail Car Driver Relationship Specialty Start Date End Date Vandana, Sydnee Ndiaye DO [address] [place] at [facility] [place] [address] PCP - General Family Medicine 01/17/23 documented as of this encounter
--- OUTSIDE RECORDS SUMMARY | 2023-11-14 01:03 | XMS_ITS | Encounter Summary ---
Author Organization [facility] Address [address], [place] [address] Phone Care Team Providers Care Facility Engineer Name Role Phone Style, Sydnee Zelda Primary Care Provider [phone] Encounter Details Date Type Department Care Team (Latest Contact Info) Description 04/06/2023 3:00 PM EST Ancillary Procedure [address] Medical Office [place] 15th Floor [address] [place] [address] SOB (shortness of breath) Social History Tobacco Use Types Packs/Day Years Used Date Smoking Tobacco: Never Smokeless Tobacco: Never Comments:My parents were smo kers-I lived with passive smoke Alcohol Use Standard Drinks/Week Comments Yes 2 (1 standard drink = 0.6 oz pur e alcohol) 4 per week average [facility] Utilities Answer Date Recorded In the past 12 months has e electric, gas, oil, or water [employer] threatened to shut off services in [...] often do you attend chur ch or episcopal services? More than 4 times per year [...] Recorded Patient Health Questionnaire-2 Score 0 03/31/2023 [facility] Occupat ional [facility] - Occupational Stress Questionnaire Answer Date [...] Visit [facility] [address] [facility] Medical Office [place] Floor 9 [place] [address] Katie Jones AUD 01/06/2024 2:00 PM EDT Appointment [facility] [address] [place] [address] 01/09/2024 2:00 PM EDT Office Visit [facility] [address] [facility] Medical Office [place] 19th [address] [place] [address] Radha Coker MD [address] [place] [address] 01/10/2024 8:30 AM EDT Office Visit [place] [facility] - Primary Care [address] [place] [address] Vandana, Sydnee Ndiaye, [address] [place] [facility] [place] [address] 01/11/2024 10:00 AM EDT Office Visit [facility] [address] [place] [address] Kat Rico, PATTIE [address] [place] [address] 01/20/2024 11:45 AM EDT Clinical Support [facility] [address] [facility] [place] [address] Maria Eugenia Lucero, ORA [address] [place] [address] 01/30/2024 8:40 AM EST Office Visit [facility] [address] [facility] [place] 15th [address] [place] [address] Jose Monique MD 550 [facility] Office [place] 15th Floor, [address] [place] [address] 02/27/2024 12:50 PM EST Office Visit [facility] [address] [facility] [address] [place] [address] Kellie Bowser, OD [address] [facility] [address], [address] [facility] [place] [address] 06/19/2024 11:30 AM EDT Appointment [facility] [address] [place] [address] 06/19/2024 1:00 PM EDT Appointment [facility] [address] [place] [address] 08/21/2024 1:40 PM EDT Office Visit [facility] at [address] [facility] NE 3rd [place] [address] Satya Wright PA [address] 3rd [place] [address] 09/05/2024 10:30 AM EDT Office Visit [facility] [address] [place] [address] Tatiana Dominguez, KASH [address] [place] [address] documented as of this encounter Procedures Procedure Name Priority Date/Time Associated Diagnosis Comments RI BRNCDILAT RSPSE SPMTRY PRE&POST-BRNCDILAT ADMN Routine 04/06/2023 4:03 PM EST SOB (shortness of breath) documented in this encounter Results * Pulmonary function testing: Full (spirometry, DLCO, lung vol); with BD (04/06/2023 4:03 PM EST) Anatomical Region Laterality Modality Other Jose Monique MD PFT ORDERABLES documented in this encounter Visit Diagnoses Diagnosis SOB (shortness of breath) Shortness of breath documented in this encounter Additional Health Concerns Assessment Noted Time PHQ-9 Depression Total Score: 0 03/31/19 24 3:16 PM EST A fall risk assessment has been complete d for the patient 03/31/2023 3:16 PM EST documented as of this encounter Care Teams Facility Engineer Relationship Specialty Start Date End Date Sydnee Ross DO [address] [place] [facility] [place] [address] PCP - General Family Medicine 01/17/23 documented as of this encounter
--- OUTSIDE RECORDS SUMMARY | 2023-11-14 01:03 | XMS_ITS | Encounter Summary ---
Author Organization [facility] Address [address] [place] [address], [place] [address] Phone Care Team Providers Care Ship Boat Or Barge Mate Name Role Phone Style, Sydnee Zelda Primary Care Provider [phone] Reason for Referral * (Routine) - Closed Specialty Diagnoses / Procedures Referred By Farrah shook Referred To Contact Diagnoses Change in bowel habits Procedures Pancreatic Elastase, Fecal Walter Conrad MD [address] [facility] [address] [place] [address] Referral ID Status Reason Start Date Expiration Date Visits Re quested Visits Authorized [id number] Closed 05/10/2023 11/08/2024 1 1 Encounter Details Date Type Department Care Team (Late st Contact Info) Description 05/10/2023 Telephone [facility] [address] [place] [address] Walter Conrad MD [address] [place] [address] Social History Tobacco Use Types Packs/Day Years Used Date Smoking Tobacco: Never Smokeless Tobacco: Never Comments:My parents were smo kers-I lived with passive smoke Alcohol Use Standard Drinks/Week Comments Yes 2 (1 standard drink = 0.6 oz pur e alcohol) 4 per week average [facility] Utilities Answer Date Recorded In the past 12 months has e electric, gantto, oil, or water [employer] threatened to shut off services in your [...] How often do you attend chur or tenriism services? More than 4 times per year 03/28/2023 Do you belong to any clubs o r organizations such as episcopal groups, unions, fraternal or athletic groups, or [...] Recorded Patient Health Questionnaire-2 Score 0 03/31/2023 [facility] [place] of Occupat ional Health - Occupational Stress [...] place to sleep or slept in a snf (including now)? No 03/28/2023 Sex and Gender [...] encounter Miscellaneous Notes * Telephone Encounter - Walter Conrad MD - 05/10/2023 1:54 PM EST ----- Message from Jayshree Ghotra sent at 05/10/2023 8:40 AM EST ----- Regarding: FW: GI Tele-health follow up Contact: ----- Message ----- From: Gianna Infante Sent: 05/09/2023 9:20 PM EST To: [facility] [address] [facility] Gastro Clinical Pool Subject: GI Tele-health follow up [place] if near main the [facility] or [facility] is good. If not. [facility] is second choice. Thank you. Gianna Infante documented in this encounter Plan of Treatment Upcoming Encounters Date Type Department Care Team (Late st Contact Info) Description 01/04/2024 11:20 AM EDT Procedure Visit [facility] [address] [facility] Medical Office [place] Floor 9 [place] [address] Katie Jones AUD 01/06/2024 2:00 PM EDT Appointment [facility] [address] [place] [address] 01/09/2024 2:00 PM EDT Office Visit [facility] [address] [facility] Office [place] 19th Floor [address] [place] [address] Radha Coker MD [address] [place] [address] 01/10/2024 8:30 AM EDT Office Visit [facility] - Primary [facility] [address] [place] [address] Sydnee Ross DO [address] [facility] [place] [address] 01/11/2024 10:00 AM EDT Office Visit [place] [facility] [address] [place] [address] Kat Rico PA [address] [place] [address] 01/20/2024 11:45 AM EDT Clinical Support [facility] [address] [facility] [place] [address] Maria Eugenia Lucero, [facility] [address] [place] [address] 01/30/2024 8:40 AM EST Office Visit [facility] [address] [facility] [place] 15th Floor [address] [place] [address] Jose Monique MD [address] [facility] Office [place] 15th Floor, [address] [place] [address] 02/27/2024 12:50 PM EST Office Visit [facility] [address] [facility] Floor 4 [address] [place] [address] Kellie Bowser, OD [address] [facility] [address], [address] [facility] [place] [address] 06/19/2024 11:30 AM EDT Appointment [facility] [address] [place] [address] 06/19/2024 1:00 PM EDT Appointment [facility] [address] [place] [address] 08/21/2024 1:40 PM EDT Office Visit [facility] at [address] [facility] [address] [facility] NE 3rd [place] [address] Satya Wright PA [address] [facility] [address] 3rd [place] [address] 09/05/2024 10:30 AM EDT Office Visit [facility] [address] [place] [address] Tatiana Dominguez NP [address] [place] [address] Scheduled Orders Name Type Priority Associated Diagnoses Orde r Schedule Fecal fat, qualitative Lab Routine Change in bowel habits Expected: 05/10/2023 (Approximate), Expires: 05/10/2024 documented as of this encounter Results * Celiac Disease Reflexive [place] (05/30/2023 9:21 AM EST) Tissue Transglutaminase Ab, IgA <1.02 0.00 - 4.99 FLU 06/01/2023 3:23 AM EST [employer] Comment: Tissue transglutaminase, IgA antibody below [...] indicate a response to therapy. Performed By: [facility] [address] [place] [address] Night Filler: Abdirizak Salguero MD, PhD CLIA Number: [id number] Blood Venous blood specimen / Unknown Venipuncture / Unknown 05/30/2023 9:21 AM EST 05/30/2023 9:21 AM EST Walter Conrad MD LAB BLOOD ORDER CHAD Performing Organization Address [facility] de Phone Number [facility] [employer] [address] [place] [address] * Pancreatic Elastase, Fecal (05/16/2023 8:45 AM EST) Pancreatic Elastase, Fecal >800 >=100 ug/g 05/20/2023 5:49 AM EST [employer] Comment: REFERENCE INTERVAL: Pancreatic Elastase Fecal by ?Immunoassay ??Less than 100 ug/g............Severe insufficiency ??100 - 199 ug/g................Moderate insufficiency ??200 ug/g or greater...........Normal INTERPRETIVE INFORMATION: Pancreatic Elastase ?Fecal by Immunoassay Reference intervals do not apply for infants less than one month old. Performed By: [facility] [address] [place] [address] Night Filler: Abdirizak Salguero MD, PhD CLIA Number: [id number] Stool Rectal contents / Unknown Non-blood Collection / Unknown 05/16/2023 8:45 AM EST 05/16/2023 10:33 AM EST Walter Conrad MD LAB BODY FLUIDS AND STOOLS ORDERABLES Performing Organization Address [facility] Co de Phone Number [employer] [address] [place] [address] * Giardia Antigen Feces (05/16/2023 8:45 AM EST) Giardia Antigen Feces Negative Negative 05/19/2023 5:39 PM EST [employer] Comment: Performed By: [facility] [address] [place] [address] Night Filler: Abdirizak Salguero MD, PhD CLIA Number: [id number] Stool Rectal contents / Unknown Non-blood Collection / Unknown 05/16/2023 8:45 AM EST 05/16/2023 10:33 AM EST Walter Conrad MD LAB BODY FLUIDS AND STOOLS ORDERABLES Performing Organization Address [facility] de Phone Number [employer] [address] [place] [address] * Calprotectin Feces (05/16/2023 8:45 AM EST) Calprotectin Stool 10 <=49 ug/g 05/20/2023 5:50 AM EST [employer] Comment: REFERENCE INTERVAL: Calprotectin, Fecal by Immunoassay ??Less than 50 ug/g.........Normal ??50-120 ug/g...............Borderline elevated, test should be ?re-evaluated in 4-6 weeks. ??121 ug/g or greater.......Elevated Performed By: [facility] [address] [place] [id number] Night Filler: Abdirizak Salguero MD, PhD CLIA Number: [id number] Stool Rectal contents / Unknown Non-blood Collection / Unknown 05/16/2023 8:45 AM EST 05/16/2023 10:33 AM EST Walter Conrad MD LAB BODY FLUIDS AND STOOLS ORDERABLES Performing Organization Address [facility] Co de Phone Number [employer] [address] [place] [address] * C difficile Toxin Assay Fecal by PCR (05/16/2023 8:45 AM EST) Clostridiodes difficile PCR Negative Negative [employer] GXXVI-4 05/16/2023 11:08 PM EST [facility] Comment:Toxigenic C. Diffici le Not Detected. Stool (Stool) Non-blood Collection / Unknown 05/16/2023 8:45 AM EST 05/16/2023 10:33 AM EST Walter Conrad MD LAB MICROBIOLOG Y - GENERAL ORDERABLES [facility] [address] [place] [address] * Beumb-4-Gxlmxgspift Quant Stool (05/16/2023 8:45 AM EST) Xayyt-0-Abqpxuxvvfw Quant Stool 0.13 0.00 - 0.50 mg/g 05/18/2023 6:48 PM EST [employer] Comment: INTERPRETIVE INFORMATION: A1A ZAHIRA, Random Stool This test was developed and its performance characteristics determined by [facility]. It has not been cleared or approved by the US Food and Drug Administration. This test was performed in a CLIA certified laboratory and is intended for clinical purposes. Performed By: [facility] [address] [place] [address] Night Filler: Abdirizak Salguero MD, PhD CLIA Number: [id number] Stool Rectal contents / Unknown Non-blood Collection / Unknown 05/16/2023 8:45 AM EST 05/16/2023 10:33 AM EST Walter Conrad MD LAB BODY FLUIDS AND STOOLS ORDERABLES Performing Organization Address City/[facility] Co de Phone Number [employer] [address] [place] [address] documented in this encounter Visit Diagnoses Diagnosis Change in bowel habits- Primary Other symptoms involving digestive system documented in this encounter Additional Health Concerns Assessment Noted Time PHQ-9 Depression Total Score: 0 03/31/19 24 3:16 PM EST A fall risk assessment has been complete d for the patient 04/25/2023 2:29 PM EST documented as of this encounter Care Teams Ship Boat Or Barge Mate Relationship Specialty Start Date End Date Sydnee Ross DO [address] [place] [facility] [place] [address] PCP - General Family Medicine 01/17/23 documented as of this encounter
--- OUTSIDE RECORDS SUMMARY | 2023-11-14 01:03 | XMS_ITS | Encounter Summary ---
Author Organization [facility] Address [address] [place] [address], [place] [address] Phone Care Team Providers Care Drawing Tender Name Role Phone Style, Sydnee Zelda GUILLEN Primary Care Provider [phone] Reason for Visit * Reason Comments Follow-up Encounter Details Date Type Department Care Team (Late st Contact Info) Description 01/31/2023 11:10 AM EST Office Visit [facility] [address] [place] [address] Kellie Bowser, OD [address], [address] [facility] [place] [phone] Macular pucker, left eye (Primary Dx); Pseudophakia, both eyes; PVD (posterior vitreous detachment), both eyes; Central cloudy dystrophy of Kang; Dry eye syndrome of both eyes; Nevus of choroid of right eye Social History Tobacco Use Types [...] and Family Not on file 12/29/2022 Attends [employer] Not on file 12/29 Active Member [...] Recorded Patient Health Questionnaire-2 Score 0 01/05/2023 [facility]at ional [facility] - [...] slept in a prison (including now)? No 12/29/2022 Sex and Gender [...] Progress Notes * Kellie Bowser, OD - 01/31/2023 11:10 AM EST Subjective Patient ID: Gianna Infante is a 77 y.o. female. Chief Complaint Follow-up HPI Pt comes in for 6mo iop/dfe with mac oct. Pt c/o trouble with haloes are very intense and cannot see people. Has to slow down to be able to get her focus. Has quite a few questions about lens exchange surgery - more trouble with glare/issues since surgery ...did see MORENITA May,. Trouble drivingat night - has people drive her at night Macular pucker, myopia ou w/ presbyopia. Last edited by Kellie Bowser, OD on 01/31/2023 11:49 AM. No current outpatient medications on file. (Ophthalmic Drugs) Current Outpatient Medications (Other) Medication Sig ascorbic bcda-zecyrjdt-xgb (Emergen-C) 1,000 mg powder effervescent in packet atorvastatin (Lipitor) 40 mg tablet Take 1 tablet (40 mg) by mouth once daily. clotrimazole (Lotrimin) 1 % cream EPINEPHrine (Epipen) 0.3 mg/0.3 mL injection syringe Inject 0.3 mL (0.3 mg) as directed if needed for anaphylaxis. Call 911 after use. ibuprofen 200 mg tablet magnesium 250 mg tablet melatonin 0.5 mg tablet split tablet meloxicam (Mobic) 15 mg tablet Take 1 tablet (15 mg) by mouth if needed each day for moderate pain. multivit with minerals/lutein (MULTIVITAMIN 50 PLUS ORAL) omega 0-ugp-yqx-fish oil 1,000 mg (120 mg-180 mg) capsule polyvinyl alcohol-povidon,PF, (Refresh Classic, PF,) 1.4-0.6 % eye drops in a dropperette zoledronic acid/mannitol-water (RECLAST IV) Infuse into a venous catheter. Objective Base Eye Exam Visual Acuity (Snellen - Linear) Right Left Dist cc 20/20 20/25 -3 Correction: Glasses Tonometry (I Care (rebound tonometry), 11:06 AM) Right Left Pressure 20 22 Pupils Dark Light Shape React APD Right 4 3 Round Brisk None Left 4 3 Round Brisk None Visual Adkins Left Right Full Full Extraocular Movement Right Left Full Full Neuro/Psych Oriented x3: Yes Mood/Affect: Normal Dilation Both eyes: 1.0% Mydriacyl, 0.5% Proparacaine @ 11:05 AM 1% Myd per pt req. Slit Lamp and Fundus Exam External Exam [...] temporal mild ERM Vessels Normal Normal Periphery Normal cobblestones Assessment/Plan Problem List Items Addressed This Visit Eye/Vision problems Macular pucker, left eye - Primary -03/01/22: new to Dr. Alexander. Moved from [place] to [place]. Hx of macular pucker left eye (OS). Previously followed by Dr. Coon in [place] -mild epiretinal membrane (ERM) without traction, observe [...] so will recheck eyes prior to departure. Relevant Orders Cirrus OCT, Macula - OU - Both Eyes (Completed) Ophthalmology Follow Up Appointment Request Visit Mode: In-person; Follow up providers: Ne (iop, dfe, mac oct OU) Cirrus OCT, Macula - OU - Both [...] Patient understands and will continue to monitor PVD (posterior vitreous detachment), both eyes Longstanding and stable both eyes (OU)/yearly DFE Central cloudy dystrophy of Kang Saw 2022 No impact on vision - Monitor Dry eye syndrome of both eyes Frequent PFATs throughout the day Follow Up Appointment Requests Future Orders Schedule follow-up for Ophthalmology Follow Up Appointment Request Visit Mode: In-person; Follow up providers: (iop, dfe, mac oct OU) 09/01/2023 (Approximate) Questions: Visit Mode: In-person Follow up providers: Comment - iop, dfe, mac oct OU Reason for follow up: documented in this encounter Miscellaneous Notes * Assessment & Plan Note - Kellie Bowser, OD - 01/31/2023 6:55 PM ESTAssociated Problem(s): Dry eye syndrome of both eyes Frequent PFATs throughout the day * Assessment & Plan Note - Kellie Bowser, OD - 01/31/2023 6:55 PM ESTAssociated Problem(s): Central cloudy dystrophy of Kang Saw JCAROLINA 2022 No impact on vision - Monitor * Assessment & Plan Note - Kellie Bowser, OD - 01/31/2023 6:54 PM ESTAssociated Problem(s): PVD (posterior vitreous detachment), both eyes Longstanding and stable both eyes (OU)/yearly DFE * Assessment & Plan Note - Kellie Bowser, OD - 01/31/2023 6:51 PM ESTAssociated Problem(s): Pseudophakia, both eyes Clear and well-centered [...] Patient understands and will continue to monitor * Assessment & Plan Note - Kellie Bowser, OD - 01/31/2023 6:47 PM ESTAssociated Problem(s): Macular pucker, left eye -03/01/22: new to Dr. Alexander. Moved from [place] to [place]. Hx of macular pucker left eye (OS). Previously followed by ??[facility]in [place] -mild epiretinal membrane (ERM) without traction, observe ??01/2023: Vision is stable both eyes (OU) Mac [...] so will recheck eyes prior to departure. documented in this encounter Plan of Treatment Upcoming Encounters Date Type Department Care Team (Late st Contact Info) Description 01/04/2024 11:20 AM EDT Procedure Visit [address] Medical Office [place] Floor 9 [place] [address] Katie Jones AUD 01/06/2024 2:00 PM EDT Appointment [facility] [address] [place] [address] 01/09/2024 2:00 PM EDT Office [facility] [address] [facility] Medical Office [place] 19th Floor [address] [place] [address] Radha Coker MD [address] [place] [address] 01/10/2024 8:30 AM EDT Office Visit [facility] - Primary [place] [facility] [address] [place] [address] Sydnee Ross, [address] [facility] [place] [address] 01/11/2024 10:00 AM EDT Office Visit [facility] - ENT & Facial Plastic Surgery [address] [facility] [address] [place] [address] Kat Rico, [place] [address] [place] [address] 01/20/2024 11:45 AM EDT Clinical Support [facility] [address] [place] [address] Maria Eugenia Lucero, ORA [address] [place] [address] 01/30/2024 8:40 AM EST Office [facility] [address] [facility] Medical Office [place] 15th Floor [address] [place] [address] Jose Monique MD 550 [facility] [place] 15th Floor, [address] [place] [address] 02/27/2024 12:50 PM EST Office Visit [facility] [address] [place] [address] Kellie Bowser, OD [address] [facility] [place] [address] 06/19/2024 11:30 AM EDT Appointment [facility] [address] [place] [address] 06/19/2024 1:00 PM EDT Appointment [facility] [address] [place] [address] 08/21/2024 1:40 PM EDT Office Visit [facility] [address] 3rd [place] [address] Satya Wright PA [address] [facility] [address] 3rd [place] [address] 09/05/2024 10:30 AM EDT Office Visit [facility] [address] [place] [address] Tatiana Dominguez, TRANSPORTATION CLERK [address] [facility] [place] [address] documented as of this encounter Procedures Procedure Name Priority Date/Time Associated Diagnosis Comments CIRRUS OCT, MACULA - OU - BOTH EYES Routine 01/31/2023 11:45 AM EST Macular pucker, left eye documented in this [...] - stable Kellie Bowser OD OPHTH TOMOGRAPHY Performing Organization Address City/[facility] Co de Phone Number [facility] OPH PACS * Cirrus OCT, Macula - OU - Both Eyes (01/31/2023 11:45 AM EST) Narrative [facility] OPH [facility]ACS - 01/31/2023 6:45 PM EST Right Eye Quality was good. Progression has been stable. Central Foveal Thickness: 282. Left Eye Quality was good. Progression has been stable. Central Foveal Thickness: 309. Notes OD: normal - stable OS: mild epiretinal membrane (ERM), pseudohole, hint of BERNARD is better this year - stable/improved Kellie Bowser OD OPHTH TOMOGRAPHY Performing Organization Address [facility] Co de Phone Number 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
--- OUTSIDE RECORDS SUMMARY | 2023-11-14 01:03 | XMS_ITS | Encounter Summary ---
Author Organization [facility] Address [address], [place], [place] [address] Phone Care Team Providers Care Polygraph Examiner Name Role Phone Style, Sydnee Zelda Primary Care Provider [phone] Reason for Visit * Episode Based Medications (Routine) - Authorized Specialty Diagnoses / Procedures Referred By Contac t Referred To Contact Infusion Therapy Diagnoses Osteoporosis, unspecified osteoporosis type, unspecified pathological fracture presence Radha Coker MD [address] [place] [id number] [place] A3 Non-Oncology Inf [facility] [address] [facility] A 3rd [place] [address] Referral ID Status Reason Start Date Expiration Date V isits Requested Visits Authorized [id number] Authorized 12/29/2022 12/29/2023 99 [phone] Encounter Details Date Type Department Care Team (Latest Contact Info) Description 05/30/2023 9:33 AM EST - 05/30/2023 11:59 PM [facility] Hospital Encounter MAICOL A3 NON-ONCOLOGY INF COUNT INCLUDES THE [facility] [address] [place] 3rd [place] [address] Osteoporosis, unspecified osteoporosis type, unspecified pathological fracture presence Discharge Disposition: DISCHARGED TO HOME OR SELF CARE (ROUTINE DISCHARGE) Social History Tobacco Use Types Packs/Day Years Used Date Smoking Tobacco: Never Smokeless Tobacco: Never Comments:My parents were smo kers-I lived with passive smoke Alcohol Use Standard Drinks/Week Comments Yes 2 (1 standard drink = 0.6 oz pur e alcohol) 4 per week average [facility] Utilities Answer Date Recorded In the past 12 months has th e [employer], gas, oil, or water [employer] threatened to shut off services in your [...] any clubs o r organizations such as adventism groups, unions, fraternal or athletic groups, or [...] Recorded Patient Health Questionnaire-2 Score 0 03/31/2023 [facility] [place] of Occupat ional Health - Occupational Stress [...] Sign Reading Time Taken Comments Blood Pressure 135/85 05/30/2023 12:28 PM EST Pulse 56 05/30/2023 12:28 PM EST Temperature 36.9 ??C (98.5 ??F) 05/30/2023 12:[address] Respiratory Rate 16 05/30/2023 12:28 PM EST Oxygen Saturation - - Inhaled Oxygen Concentration - - Weight 69.5 kg (153 lb 4.8 oz) 05/30/2023 11:35 AM EST Height 177.8 cm (5' 10) 05/30/2023 11:35 AM EST Body Mass Index 22 05/30/2023 11:35 AM EST documented in this encounter Medications at Time of Discharge Medication Sig Dispensed Refills Start Date End Date ascorbic lkzi-nbmkzpvf-beh (Emergen-C) 1,000 mg powder effervescent in packet Take by mouth once daily. 03/28/2019 atorvastatin (Lipitor) 40 mg tablet TAKE 1 TABLET BY MOUTH EVERY DAY 90 tablet 3 02/10/2023 ibuprofen 200 mg tablet Take by mouth if needed. PRN 03/28/2021 multivit with minerals/lutein (MULTIVITAMIN 50 PLUS ORAL) Take by mouth once daily. 03/28/2022 omega 5-fvh-hft-fish oil 1,000 mg (120 mg-180 mg) capsule [...] 03/31/2023 07/05/2023 documented as of this encounter Progress Notes * Jeanne Bill - 05/30/2023 12:30 PM EST Patient received a Reclast 5 mg IV infusion today. Patient denied pain and any other symptoms. Per patient she has had several doses of Reclast in the past. Patient tolerated procedure well without any reaction. Patient discharged home with discharge instructions. documented in this encounter Miscellaneous Notes * Addendum Note - Rocío Sol - 05/30/2023 12:30 PM ESTEncounter addended by: Rocío Sol on: 05/30/2023 6:12 PM Actions taken: Charge Capture section accepted documented in this encounter Plan of Treatment Upcoming Encounters Date Type Department Care Team (Late st Contact Info) Description 01/04/2024 11:20 AM EDT Procedure Visit [facility] [address] [facility] Medical [facility] [place] Floor 9 [place] [address] Katie Jones AUD 01/06/2024 2:00 PM EDT Appointment [facility] [address] [place] [address] 01/09/2024 2:00 PM EDT Office Visit [facility] [address] [facility] Medical [facility] [place] 19th Floor [address] [place] [address] Radha Coker MD [address] [place] [address] 01/10/2024 8:30 AM EDT Office Visit [facility] [address] [place] [address] Style, Sydnee Ndiaye, DO [address] [facility] [place] [address] 01/11/2024 10:00 AM EDT Office Visit [facility] - ENT & Facial Plastic Surgery [address] [place] [address] Kat Rico, PATTIE [address] [place] [address] 01/20/2024 11:45 AM EDT Clinical Support [facility] [address] [place] [address] Maria Eugenia Lucero, [facility] [address] [place] [address] 01/30/2024 8:40 AM EST Office Visit [facility] [address] [facility] Medical Office [place] 15th Floor [address] [place] [address] Jose Monique MD 550 [facility] [place] 15th Floor, [address] [place] [address] 02/27/2024 12:50 PM EST Office Visit [facility] [address] [place] [address] Kellie Bowser, OD [address], [address] [facility] [place] [address] 06/19/2024 11:30 AM EDT Appointment [facility] [address] [place] [address] 06/19/2024 1:00 PM EDT Appointment [facility] [address] [place] [address] 08/21/2024 1:40 PM EDT Office Visit [facility] [address] [facility] [address] [place] [address] NE 3rd [place] [address] Satya Wright PA [address] 3rd [place] [address] 09/05/2024 10:30 AM EDT Office Visit [facility] [address] [place] [address] Tatiana Dominguez NP [address] [place] [address] documented as of this encounter Visit Diagnoses Diagnosis Osteoporosis, unspecified osteoporosis type, unspecified pathological fracture presence documented in this encounter Administered Medications Inactive Administered Medications - up to 3 most recent administrations Medication Order MAR Action Action Date Dose Rate Site sodium chloride 0.9 % infusion - [employer] Override Pull Starting on Tue05/30/23 at 1132, For 1 dose, Created by cabinet override sodium chloride prime bag 250 mL 250 mL, intravenous, at 0-999 mL/hr, Once as needed, Prime Bag, Starting on Tue05/30/23 at 1124, For 1 dose, Prime Bag New Bag 05/30/2023 12:24 PM EST 250 mL 300 mL/hr zoledronic acid (Reclast) IVPB 5 mg 5 mg, intravenous, at 300 mL/hr, Administer over 20 Minutes, Once, On Tue05/30/23 at 1130, For 1 dose New Bag 05/30/2023 12:00 PM EST 5 mg 300 mL/hr documented in this encounter Additional Health Concerns Assessment Noted Time PHQ-9 Depression Total Score: 0 03/31/19 24 3:16 PM EST A fall risk assessment has been complete d for the patient 04/25/2023 2:29 PM EST documented as of this encounter Care Teams Polygraph Examiner Relationship Specialty Start Date End Date Vandana, Sydnee Ndiaye DO [address] [facility] [place] [address] PCP - General Family Medicine 01/17/23 documented as of this encounter
--- OUTSIDE RECORDS SUMMARY | 2023-11-14 01:03 | XMS_ITS | Encounter Summary ---
Author Organization [facility] Address [address] [facility] , [place], [place] [address] Phone Care Team Providers Care Wildlife Officer Name Role Phone Style, Sydnee Zelda GUILLEN Primary Care Provider [phone] Encounter Details Date Type Department Care Team (Late st Contact Info) Description 05/11/2023 11:25 AM EST Lab [facility] [address] 1 [place] [address] Social History Tobacco Use Types Packs/Day Years Used Date Smoking Tobacco: Never Smokeless Tobacco: Never Comments:My parents were smo kers-I lived with passive smoke Alcohol Use Standard Drinks/Week Comments Yes 2 (1 standard drink = 0.6 oz pur e alcohol) 4 per week average [facility] Utilities Answer Date Recorded In the past 12 months has e electric, gas, oil, or water [employer] threatened to shut off services in your [...] any clubs o r organizations such as hindu groups, unions, fraternal or athletic groups, or [...] Recorded Patient Health Questionnaire-2 Score 0 03/31/2023 [facility] of Occupat ional Health - Occupational [...] Description 01/04/2024 11:20 AM EDT Procedure Visit [facility] 550 [facility] Office [place] Floor 9 [place] [address] Katie Jones AUD 01/06/2024 2:00 PM EDT Appointment [facility] [address] [place] [address] 01/09/2024 2:00 PM EDT Office Visit [facility] 550 [facility] Medical Office [place] 19th Floor [address] [place] [address] Radha Coker MD [address] [place] [address] 01/10/2024 8:30 AM EDT Office Visit [facility] [address] [place] [address] Style, Sydnee Ndiaye, DO [address] [facility] [place] [address] 01/11/2024 10:00 AM EDT Office Visit [facility] - ENT & Facial Plastic Surgery [address] [place] [address] Kat Rico, PA [address] [place] [address] 01/20/2024 11:45 AM EDT Clinical Support [facility] [address] [place] [address] Maria Eugenia Lucero, [facility] [address] [place] [address] 01/30/2024 8:40 AM EST Office Visit [facility] 550 [facility] [place] 15th Floor [address] [place] [address] Jose Monique MD [address] [facility] Office [place] 15th Floor, [address] [place] [address] 02/27/2024 12:50 PM EST Office Visit [facility] [address] 4 [address] [place] [address] Kellie Bowser, OD [address], [address] [facility] [place] [address] 06/19/2024 11:30 AM EDT Appointment [facility] [address] [place] [address] 06/19/2024 1:00 PM EDT Appointment [facility] [address] [place] [address] 08/21/2024 1:40 PM EDT Office Visit [facility] at [address] [facility] NE 3rd [place] [address] Satya Wright PA [address] 3rd [place] [address] 09/05/2024 10:30 AM EDT Office Visit [facility] [address] [place] [address] Tatiana Dominguez, STRAW BALER [address] [facility] [place] [address] documented as of this encounter Visit Diagnoses Not on filedocumented in this encounter Additional Health Concerns Assessment Noted Time PHQ-9 Depression Total Score: 0 03/31/19 24 3:16 PM EST A fall risk assessment has been complete d for the patient 04/25/2023 2:29 PM EST documented as of this encounter Care Teams Wildlife Officer Relationship Specialty Start Date End Date Vandana, Sydnee Ndiaye DO [address] [facility] [place] [address] PCP - General Family Medicine 01/17/23 documented as of this encounter
--- OUTSIDE RECORDS SUMMARY | 2023-11-14 01:03 | XMS_ITS | Encounter Summary ---
Author Organization [facility] Address [address], [address], [place] [address] Phone Care Team Providers Care Macaroni Press Operator Name Role Phone Unavailable Primary Care Provider Unavailabl e Encounter Details Date Type Department Care Team (Late st Contact Info) Description 01/05/2023 4:00 PM EDT Lab [facility] [address] [facility] [address] [place] [address] Osteoporosis, unspecified osteoporosis type, unspecified pathological fracture presence; Abnormal thyroid function test; Other hyperlipidemia; Need for hepatitis C screening test Social History Tobacco Use Types Packs/Day Years [...] and Family Not on file 12/29/2022 Attends [employer] Services Not on file 12/29 Active Member [...] Recorded Patient Health Questionnaire-2 Score 0 01/05/2023 [facility] [place] of Occupat ional Health - Occupational Stress [...] slept in a retirement (including now)? No 12/29/2022 Sex and Gender [...] Description 01/04/2024 11:20 AM EDT Procedure Visit [facility] [address] [facility] Medical Office [place] Floor 9 [place] [address] Katie Jones AUD 01/06/2024 2:00 PM EDT Appointment [facility] [address] [place] [address] 01/09/2024 2:00 PM EDT Office Visit [facility] [address] [facility] Medical Office [place] 19th Floor [address] [place] [address] Radha Coker MD [address] [place] [address] 01/10/2024 8:30 AM EDT Office Visit [facility] - Primary [facility] [address] [place] [address] Vandana, Sydnee Ndiaye, [address] [facility] [place] [address] 01/11/2024 10:00 AM EDT Office Visit [facility] - [facility]NT & Facial Plastic Surgery [address] [place] [address] Kat Rico, PATTIE [address] [place] [address] 01/20/2024 11:45 AM EDT Clinical Support [facility] [address] [place] [address] Maria Eugenia Lucero, ORA [address] [place] [address] 01/30/2024 8:40 AM EST Office Visit [facility] [address] [facility] Medical Office [place] 15th Floor [address] [place] [address] Jose Monique MD 550 [facility] Medical Office [place] 15th Floor, [address] [place] [address] 02/27/2024 12:50 PM EST Office Visit [facility] [address] [place] [address] Kellie Bowser, OD [address], [address] [facility] [place] [address] 06/19/2024 11:30 AM EDT Appointment [place] [address] [address] 06/19/2024 1:00 PM EDT Appointment [place] [address] [address] 08/21/2024 1:40 PM EDT Office Visit [facility] [address] 3rd [place] [address] Satya Wright PA [address] [facility] [address] 3rd [place] [address] 09/05/2024 10:30 AM EDT Office Visit [facility] [address] [place] [address] Tatiana Dominguez, KASH [address] [place] [address] documented as of this encounter Procedures Procedure Name Priority Date/Time Associated Diagnosis Comments HEPATITIS C ANTIBODY Routine 01/05/2023 3:58 PM EDT Need for hepatitis C screening test THYROID STIMULATING HORMONE Routine 01/05/2023 3:58 PM EDT Abnormal thyroid function test THYROXINE FREE Routine 01/05/2023 3:58 PM EDT Abnormal thyroid function test CHEMISTRY PROFILE LIPID Routine 01/05/2023 3:58 PM EDT Other hyperlipidemia COMPREHENSIVE METABOLIC PANEL Routine 01/05/2023 3:58 PM EDT Osteoporosis, unspecified osteoporosis type, unspecified pathological fracture presence documented in this encounter Results * Hepatitis C Antibody (01/05/2023 3:58 PM EDT) Pathologist [facility] Hepatitis C Antibody Negative Negative LAB IMMUNOASSAY METHOD 01/07/2023 10:57 AM EDT [facility] Comment: Reference Range: Positive Screen: Presumptive [...] Ndiaye Style DO LAB BLOOD ORDERABLE S [facility] [address] [place] [address] * Chemistry Profile Lipid (01/05/2023 3:58 PM EDT) [facility] Cholesterol Total 144 <=200 mg/dL LAB CHEMISTRY METHOD 01/05/2023 8:00 PM EDT [facility] Comment: According to NCEP ATPIII Guidelines, after a 9 to 12 hour fast: ? Less than 200 mg/dL ?Desirable ? 200-239 mg/dL ?Borderline High ? Greater than or equal to 240 mg/dL ? High Triglyceride 90 <=149 mg/dL LAB CHEMISTRY METHOD 01/05/2023 8:00 PM EDT [facility] Comment: According to NCEP ATPIII Guidelines, after a 9 to 12 hour fast: Less than 150 mg/dL ?Normal 150-199 mg/dL ?Borderline High 200-499 mg/dL ?High Greater than or equal to 500 mg/dL ? Very High HDL Cholesterol 64 23 - 92 mg/dL LAB CHEMISTRY METHOD 01/05/2023 8:00 PM EDT [facility] Comment: According to NCEP ATPIII Guidelines, after a 9 to 12 hour fast: Less than 40 mg/dL ? Low Greater than or equal to 60 mg/dL ?High HDL Cholesterol >/= 60 mg/dL counts as a negative risk factor: ??Its presence removes one risk factor from the total count. Non-HDL Cholesterol 80 <=129 mg/dL 01/05/2023 8:00 PM EDT [facility] Comment: If LDL Goal is: ? Non-HDL Goal should be: < 160 mg/dL ? < 190 mg/dL < 130 mg/dL ? < 160 mg/dL < 100 mg/dL ? < 130 mg/dL < 70 ??mg/dL ? < 100 mg/dL LDL Cholesterol 62 mg/dL 8:00 PM EDT [facility] Comment: According to NCEP ATPIII Guidelines, [...] 18 <=29 mg/dL 01/05/2023 8:00 PM EDT [facility] Blood Venous blood specimen / Unknown Venipuncture / Unknown 01/05/2023 3:58 PM EDT 01/05/2023 3:58 PM EDT Sydnee Ndiaye Style DO LAB BLOOD ORDERABLE S [facility] [address] [place] [address] * Thyroxine Free (01/05/2023 3:58 PM EDT) Thyroxine Free 0.84 0.58 - 1.64 ng/dL LAB CHEMISTRY METHOD 01/05/2023 8:17 PM EDT [facility] Comment: Free T4 Expected values in women: Female (1st trimester): 0.52 - 1.10 ng/dL Female (2nd trimester): 0.45 - 0.99 ng/dL Female (3rd trimester): 0.48 - 0.95 ng/dL There is a significant interference effect of biotin on Free T4 measurements. Falsely elevated results for Free T4 are reported when serum biotin >10 ng/mL. To avoid the risk of false assay results, delay sample collection if possible, depending on the biotin dose. If OTC biotin supplement is taken, an 8-hour washout period is sufficient. For patients who take >10 mg biotin daily doses, or those with renal insufficiency, it is necessary to delay sample collection for a longer period (up to 73 hours) after the last dose of biotin. Blood Venous blood specimen / Unknown Venipuncture / Unknown 01/05/2023 3:58 PM EDT 01/05/2023 3:58 PM EDT Radha Coker MD LAB BLOOD ORDERABLES [facility] [address] [place] [address] * Thyroid Stimulating Hormone (01/05/2023 3:58 PM EDT) Pathologist [facility] Thyroid Stimulating Hormone 1.49 0.45 - 5.33 mcIU/mL LAB CHEMISTRY METHOD 01/05/2023 8:08 PM EDT [facility] Comment: : ? First Trimester: 0.05-3.70 mcIU/mL ? Second Trimester: ?0.31-4.35 mcIU/mL ? Third Trimester: 0.41-5.18 mcIU/mL Blood Venous blood specimen / Unknown Venipuncture / Unknown 01/05/2023 3:58 PM EDT 01/05/2023 3:58 PM EDT Radha Coker MD LAB BLOOD ORDERABLES [facility] [address] [place] [address] * (ABNORMAL) Comprehensive Metabolic Panel (01/05/2023 3:58 PM EDT) Sodium 140 136 - 145 mmol/L LAB CHEMISTRY METHOD 01/05/2023 8:00 PM EDT [facility] Potassium 4.0 3.5 - 5.1 mmol/L LAB CHEMISTRY METHOD 01/05/2023 8:00 PM EDT [facility] Chloride 102 98 - 107 mmol/L LAB CHEMISTRY METHOD 01/05/2023 8:00 PM EDT [facility] Carbon Dioxide Level 31(H) 23 - 29 mmol/L LAB CHEMISTRY METHOD 01/05/2023 8:00 PM EDT [facility] Calcium Level Total 9.7 8.6 - 10.3 mg/dL LAB CHEMISTRY METHOD 01/05/2023 8:00 PM EDT [facility] Blood Urea Nitrogen 19 7 - 25 mg/dL LAB CHEMISTRY METHOD 01/05/2023 8:00 PM EDT [facility] Creatinine 0.54(L) 0.60 - 1.20 mg/dL LAB CHEMISTRY METHOD 01/05/2023 8:00 PM EDT [facility] Glucose 90 70 - 105 mg/dL LAB CHEMISTRY METHOD 01/05/2023 8:00 PM EDT [facility] Comment: Random Glucose* Diabetes is diagnosed at blood glucose of greater than or equal to 200 mg/dL Fasting Glucose* Normal: less than 100 mg/dL Prediabetes: 100 mg/dl to 125 mg/dL Diabetes: 126 mg/dL or higher *ADA guidelines Protein Total 7.2 6.4 - 8.9 gm/dL LAB CHEMISTRY METHOD 01/05/2023 8:00 PM EDT [facility] Albumin Level 4.4 3.5 - 5.7 gm/dL LAB CHEMISTRY METHOD 01/05/2023 8:00 PM EDT [facility] Alkaline Phosphatase 60 34 - 104 unit/L LAB CHEMISTRY METHOD 01/05/2023 8:00 PM EDT [facility] Alanine Aminotransferase 41 7 - 52 unit/L LAB CHEMISTRY METHOD 01/05/2023 8:00 PM EDT [facility] Aspartate Aminotransferase 35 13 - 39 unit/L LAB CHEMISTRY METHOD 01/05/2023 8:00 PM EDT [facility] Total Bilirubin 0.4 0.3 - 1.0 mg/dL LAB CHEMISTRY METHOD 01/05/2023 8:00 PM EDT [facility] Anion Gap 7 2 - 11 mmol/L 01/05/2023 8:00 PM EDT [facility] Calculated Osmolality 282 275 - 295 mOsm/kg 01/05/2023 8:00 PM EDT [facility] U:C 35(H) 7 - 21 01/05/2023 8:00 PM EDT [facility] Estimated GFR 91 >=60 mL/min/1 .73m2 01/05/2023 8:00 PM EDT [facility] Comment: The eGFR is calculated with [...] 1. Based on review of evidence, the [facility] Clinical Practice [place] made the decision to stop reporting eGFR by race effective 09/03/2020. Blood Venous blood specimen / Unknown Venipuncture / Unknown 01/05/2023 3:58 PM EDT 01/05/2023 3:58 PM EDT Radha Coker MD LAB BLOOD ORDERABLES [facility] [address] [place] [address] documented in this encounter Visit Diagnoses Diagnosis Osteoporosis, unspecified osteoporosis type, unspecified pathological fracture presence Abnormal thyroid function test Nonspecific abnormal results of thyroid function study Other hyperlipidemia Need for hepatitis C screening test Special screening examination for other specified viral diseases documented in this encounter Additional Health Concerns Assessment Noted Time A fall risk assessment has been complete d for the patient 01/05/2023 2:56 PM EDT documented as of this encounter
--- OUTSIDE RECORDS SUMMARY | 2023-11-14 01:04 | XMS_ITS | Encounter Summary ---
Author Organization [facility] Address [address] [place] [address], [place] [address] Phone Care Team Providers Care Eco Industrial Development Consultant Name Role Phone Unavailable Primary Care Provider Unavailabl e Reason for Visit * Reason Onset Date Comments Med Refill 11/23/2022 Encounter Details Date Type Department Care Team (Late st Contact Info) Description 11/23/2022 Telephone [place] [facility] [address] - Primary Care [address] [facility] [address] [place] [address] Sydnee Ross, DO [address] [place] [facility] [address] [place] [address] Med Refill Social History Tobacco Use Types Packs/Day Years Used Date Smoking Tobacco: Never Smokeless Tobacco: Never Alcohol Use Standard Drinks/Week Comments Yes 4 (1 standard drink = 0.6 oz pur e alcohol) 4 per week average PHQ-2 Answer Date Recorded Patient Health Questionnaire-2 Score 1 09/21/2022 Sex and Gender Information Value Date Recorded Sex Assigned at Choose not to disclose 06/2023 9:41 PM EDT Gender Identity Female 01/17/2022 5:45 PM EDT Sexual Orientation Choose not to disclose 2023 9:41 PM EDT Job Start Date Occupation Industry Not on file Not on file Not on file documented as of this encounter Miscellaneous Notes * Telephone Encounter - Leonel Gant - 11/23/2022 3:39 PM EDT MEDICATION RENEWAL Provider / MD: Style Medication 1: Atorvastatin Medication 2: Medication 3: Pharmacy Name: [facility] Phone #: [phone] [place] [address] documented in this encounter Plan of Treatment Upcoming Encounters Date Type Department Care Team (Late st Contact Info) Description 01/04/2024 11:20 AM EDT Procedure Visit [facility] 550 [facility] Medical Office [place] Floor 9 [place] [address] Katie Jones AUD 01/06/2024 2:00 PM EDT Appointment [facility] [address] [place] [address] 01/09/2024 2:00 PM EDT Office Visit [facility] 550 [facility] Medical Office [place] 19th Floor [address] [place] [address] Radha Coker MD 550 [place] [address] 01/10/2024 8:30 AM EDT Office Visit [facility] - Primary [facility] [address] [place] [address] Vandana, Sydnee Ndiaye, DO [address] [facility] [place] [address] 01/11/2024 10:00 AM EDT Office Visit [facility] - ENT & Facial Plastic Surgery [address] [facility] 707 [place] [address] Kat Rico PA [address] [place] [address] 01/20/2024 11:45 AM EDT Clinical Support [facility] 5[address] [place] [address] Maria Eugenia Lucero, ORA [address] [place] [address] 01/30/2024 8:40 AM EST Office Visit [facility] 550 [facility] [place] 15th [address] [place] [address] Jose Monique MD 550 [facility] Medical Office [place] 15th Floor, [address] [place] [address] 02/27/2024 12:50 PM EST Office Visit [facility] 5[address] [facility] Floor 4 [address] [place] [phone] 677-567 Kellie Bowser, OD 5671 [facility] Fl 4, [address] [facility] [place] [address] 06/19/2024 11:30 AM EDT Appointment [place] [address] [address] 06/19/2024 1:00 PM EDT Appointment [place] [address] [address] 08/21/2024 1:40 PM EDT Office Visit [facility] at [facility] [address] 3rd [place] [address] Satya Wright PA 1525 [facility] 3rd [place] [address] 09/05/2024 10:30 AM EDT Office Visit [facility] [address] [place] [address] Tatiana Dominguez NP [address] [place] [address] documented as of this encounter Visit Diagnoses Not on filedocumented in this encounter Additional Health Concerns Assessment Noted Time A fall risk assessment has been complete d for the patient 09/21/2022 10:24 AM EDT documented as of this encounter
--- OUTSIDE RECORDS SUMMARY | 2023-11-14 01:04 | XMS_ITS | Encounter Summary ---
Author Organization [facility] Address [address] [place], [place], [place] [address] Phone Care Team Providers Care Carbonation Tester Name Role Phone Unavailable Primary Care Provider Unavailabl e Reason for Referral * Consultation (Routine) - Closed Specialty Diagnoses / Procedures Referred By Farrah shook Referred To Contact Pulmonology Diagnoses SOB (shortness of breath) Procedures CO OFFICE/OUTPATIENT NEW [facility] 60-74 MINUTES Sydnee Espinosa DO [address] [place] [phone] Rakesh Howe MD [address] [place] [address] [facility], Fl 3 [facility] at [address] [place] [address] Referral ID Status Reason Start Date Expiration Date V isits Requested Visits Authorized [id number] Closed Specialty Services Required 12/24/2022 12/24/2023 1 1 Scheduling Instructions Please call [phone] to schedule. * Consultation (Routine) - Closed Specialty Diagnoses / Procedures Referred By Farrah shook Referred To Contact Otolaryngology Diagnoses Tinnitus of both ears Procedures CO OFFICE/OUTPATIENT NEW HIGH [facility] 60-74 MINUTES Sydnee Espinosa DO [address] [place] [address] Referral ID Status Reason Start Date Expiration Date V isits Requested Visits Authorized [id number] Closed Specialty Services Required 12/24/2022 12/24/2023 1 1 Scheduling Instructions Please call [phone] to schedule. Encounter Details Date Type Department Care Team (Late st Contact Info) Description 12/24/2022 1:15 PM EDT Telemedicine [facility] [address] [place], [place] [phone] Sydnee Espinosa DO [address] [facility] - Primary Care [place], [place] [phone] Anxiety (Primary Dx); Osteoporosis, unspecified osteoporosis type, unspecified pathological fracture presence; Neck pain; Hyperlipidemia, unspecified hyperlipidemia type; Tinnitus of both ears; SOB (shortness of breath) Social History Tobacco [...] as of this encounter Progress Notes * Sydnee Espinosa DO - 12/24/2022 1:15 PM EDT Today's telehealth visit was conducted using a HIPAA-compliant secured [facility] [employer] platform. Patient did initiate today's visit and gave verbal consent for remote consultation due to the current COVID-19 Health Crisis. 2 person identifier (name, date of ) is obtained at the beginning of this visit. This telehealth visit is performed at the following sites: Originating site: Patient [place] in [place] Distant site: Provider main office location of [facility] Primary [place] ([place] [address]) Patient has been advised that, during today's visit: 1. I will evaluate him/her and recommend diagnostic evaluations/ treatment plans based on my assessment 2. Our session is not being recorded and personal health information is protected 3. Our team will provide follow up care in person if/when the patient needs it. Subjective Patient ID: Gianna Infante is a 77 y.o. female who presents for follow up concerns below HPI Anxiety-did not start cymbalta. Saw therapist in [place]. Feels anxiety improved. Hld- due for lipid check Neck pain. Saw PT. Pain not relieved. Following spine physician. Taking 400mg ibuprofen with some relief. Due for repeat DEXA and reclast. Following endo. Ringing b/l SOB-Pt reports neg CV wkup including CT, nuclear stress test. Review of Systems All other systems reviewed and are negative. There were no vitals taken for this visit. Objective Patient was not examined in person. There was no evidence of distress over the phone. Assessment/Plan 1. Anxiety Controlled without meds. Continue therapy 2. Osteoporosis, unspecified osteoporosis type, unspecified pathological fracture presence Repeat DEXA bone scan and follow up with endo - Dexa Bone Density Hip/Spine; Future 3. Neck pain Start meloxicam 7.5mg daily Can increase to 15mg if needed. Follow up with spine 4. Hyperlipidemia, unspecified hyperlipidemia type Continue atorvastatin. Due for lipid panel. 5. Tinnitus Refer to audiology. Upcoming appt, will eval ears then SOB ER last year for SOB. Neg CV wkup. Was told to see pulm. Referral placed Total time (stnz-nq-tguc and hpc-bivc-sq-face) spent on today???s visit was 30 minutes. This included preparation for the visit, performance of a medically appropriate history and exam, and orders for medications, tests, or procedures. documented in this encounter Plan of Treatment Upcoming Encounters Date Type Department Care Team (Mara st Contact Info) Description 01/04/2024 11:20 AM EDT Procedure Visit [address] Medical Office [place] Floor 9 [place] [address] Katie Jones AUD 01/06/2024 2:00 PM EDT Appointment [facility] [address] [place] [address] 01/09/2024 2:00 PM EDT Office Visit [facility] 550 [facility] Medical Office [place] 19th Floor [address] [place] [address] Radha Coker MD 550 [place] [address] 01/10/2024 8:30 AM EDT Office Visit [facility] Primary [facility] [address] [place] [address] Vandana, Sydnee Ndiaye, [address] [facility] [place] [address] 01/11/2024 10:00 AM EDT Office Visit [facility] - ENT & Facial Plastic Surgery [address] [facility] 707 [place] [address] Kat Rico, PATTIE [address]64 [place] [address] 01/20/2024 11:45 AM EDT Clinical Support [facility] [address] [facility] [place] [address] Maria Eugenia Lucero, ORA [address] [place] [address] 01/30/2024 8:40 AM EST Office Visit [facility] 550 [facility] Medical Office [place] 15th Floor [address] [place] [address] Jose Monique MD 550 [facility] [place] 15th Floor, [address] [place] [address] 02/27/2024 12:50 PM EST Office Visit [facility] [address] [facility] [address] Floor 4 [address] [place] [address] Henrry Calixto Kellie Pedro Luis, OD [address] [facility] [address] 4, [address] [facility] [place] [address] 06/19/2024 11:30 AM EDT Appointment [place] [address] [place] [address] 06/19/2024 1:00 PM EDT Appointment [place] [address] [place] [address] 08/21/2024 1:40 PM EDT Office Visit [facility] at [address] [place] [address] NE 3rd [place] [address] Satya Wright PA [address] [facility] [place] 3rd [place] [address] 09/05/2024 10:30 AM EDT Office Visit [facility] [address] [place] [address] Tatiana Dominguez, INSTRUCTIONAL TECHNOLOGY SPECIALIST [address] [facility] [place] [address] Scheduled Referrals Name Type Priority Associated Diagnoses Order Schedule Ambulatory referral to ENT Outpatient Referral Routine Tinnitus of both ears Expected: 12/24/2022 (Approximate), Expires: 12/25/2023 Ambulatory referral to Pulmonology Outpatient Referral Routine SOB (shortness of breath) Expected: 12/24/2022 (Approximate), Expires: 12/25/2023 documented as of this encounter Results * Dexa Bone Density [...] Exam Date: June 20, 2023 Accession number: [id number] Bone Density: Region ? BMD ?T-score ??Z-score [...] to reassess this patient's status. Reported by: [id number] on 06/20/2023 11:22:00 AM. Sydnee Espinosa DO IMG DXA PROCEDURES documented in this encounter Visit Diagnoses Diagnosis Anxiety- Primary Anxiety state, unspecified Osteoporosis, unspecified osteoporosis type, unspecified pathological fracture presence Neck pain Cervicalgia Hyperlipidemia, unspecified hyperlipidemia type Tinnitus of both ears Unspecified tinnitus SOB (shortness of breath) Shortness of breath Osteoporosis, unspecified osteoporosis type, unspecified pathological fracture presence documented in this encounter Additional Health Concerns Assessment Noted Time A fall risk assessment has been complete d for the patient 09/21/2022 10:24 AM EDT documented as of this encounter
--- OUTSIDE RECORDS SUMMARY | 2023-11-14 01:04 | XMS_ITS | Encounter Summary ---
Author Organization [facility] Address [address] [place] [address], [place] [address] Phone Care Team Providers Care Software Solutions Architect Name Role Phone Unavailable Primary Care Provider Unavailabl e Reason for Visit * Reason Onset Date Comments Advice Only 10/05/2022 Encounter Details Date Type Department Care Team (Late st Contact Info) Description 10/05/2022 Telephone [facility] [address] [place] [address] Hieu Giles MD [address] [facility] [place] [address] Advice Only Social History Tobacco Use Types Packs/Day Years [...] file Not on file Not on file COVID-19 Exposure Response Date Recorded In the last 10 days, have yo u been in contact with someone who was confirmed or suspected to have Coronavirus/COVID-19? No / Unsure 09/30/2022 11:48 AM EDT documented as of this encounter Miscellaneous Notes * Telephone Encounter - Yara Brasher - 10/05/2022 12:18 PM EDT CLINICAL CONCERN Concern / Question: Ms. Infante would like [facility] medical clerical assistant to give her a call soon as possible... documented in this encounter Plan of Treatment Upcoming Encounters Date Type Department Care Team (Late st Contact Info) Description 01/04/2024 11:20 AM EDT Procedure Visit [facility] 550 [facility] Medical Office [place] Floor 9 [place] [address] Katie Jones, LISA 01/06/2024 2:00 PM EDT Appointment [facility] [address] [place], [place] [address] 01/09/2024 2:00 PM EDT Office Visit [facility] 550 [facility] Medical Office [place] 19th Floor [address] [place] [address] Radha Coker MD 550 [place] [address] 01/10/2024 8:30 AM EDT Office Visit [facility] - Primary Care [address] [place] [address] Vandana, Sydnee Ndiaye, DO [address] [facility] [place] [address] 01/11/2024 10:00 AM EDT Office Visit [facility] - ENT & Facial Plastic Surgery [address] [facility] [address] [place] [address] Kat Rico PA [address] [place] [address] 01/20/2024 11:45 AM EDT Clinical Support [facility] 5[address] [place] [address] Maria Eugenia Lucero, ORA [address] [place] [address] 01/30/2024 8:40 AM EST Office Visit [facility] 550 [facility] [place] 15th Floor [address] [place] [address] Jose Monique MD 550 [facility] City Office [place] 15th Floor, [address] [place] [address] 02/27/2024 12:50 PM EST Office Visit [facility] 5[address] [facility] Floor 4 [address] [place] [address]76-249 Kellie Bowser, OD 5671 [facility] Fl 4, [address] [facility] [place] [address] 06/19/2024 11:30 AM EDT Appointment [place] [address] [address] 06/19/2024 1:00 PM EDT Appointment [place] [address] [facility] 120 [place] [address] 08/21/2024 1:40 PM EDT Office Visit [facility] at [address] [place] [address] 3rd [place] [address] Satya Wright PA 1525 [facility] 3rd [place] [address] 09/05/2024 10:30 AM EDT Office Visit [facility] [address] [place] [address] Tatiana Dominguez NP [address] [place] [address] documented as of this encounter Visit Diagnoses Not on filedocumented in this encounter Additional Health Concerns Assessment Noted Time A fall risk assessment has been complete d for the patient 09/21/2022 10:24 AM EDT documented as of this encounter
--- OUTSIDE RECORDS SUMMARY | 2023-11-14 01:04 | XMS_ITS | Encounter Summary ---
Author Organization [facility] Address [address] [place], [place], [place] [address] Phone Care Team Providers Care Radar Mechanic Name Role Phone Unavailable Primary Care Provider Unavailabl e Encounter Details Date Type Department Care Team (Latest Contact Info) Description 10/25/2022 9:26 AM EDT - 10/25/2022 11:59 PM EDT Hospital Encounter [facility] [address] [place] [address] Pain Discharge Disposition: DISCHARGED TO HOME OR SELF [...] Recorded In the last 10 days, have kathy u been in contact with someone who was confirmed or suspected to have Coronavirus/COVID-19? No / Unsure 09/30/2022 11:48 AM EDT documented as of this encounter Medications at Time of Discharge Medication Sig Dispensed Refills Start Date End Date ascorbic cfbu-jhbdqssh-kfc (Emergen-C) 1,000 mg powder effervescent in packet Take by mouth once daily. 03/28/2019 ibuprofen 200 mg tablet Take by mouth if needed. PRN 03/28/2021 multivit with minerals/lutein (MULTIVITAMIN 50 PLUS ORAL) Take by mouth once daily. 03/28/2022 omega 9-fse-tnz-fish oil 1,000 mg (120 mg-180 mg) capsule Take by mouth once daily. 03/28/2007 polyvinyl alcohol-povidon,PF, (Refresh Classic, PF,) 1.4-0.6 % eye drops in a dropperette 03/28/2019 zoledronic acid/mannitol-water (RECLAST IV) Infuse into a venous catheter Yearly. atorvastatin (Lipitor) 40 mg tablet Take 1 tablet (40 mg) by mouth once daily. 90 tablet 1 02/17/2022 10/28/2022 atorvastatin (Lipitor) 40 mg tablet Take 1 tablet (40 mg) by mouth once daily. 90 tablet 1 10/28/2022 11/23/2022 clotrimazole (Lotrimin) 1 % cream 11/26/2021 09/06/2023 EPINEPHrine (Epipen) 0.3 mg/0.3 mL injection syringe Inject 0.3 mL (0.3 mg) as directed if needed for anaphylaxis. Call 911 after use. 1 each 09/29/2022 10/04/2023 magnesium 250 mg tablet 03/28/202108/26 melatonin 0.5 mg tablet split tablet 03/28/2019 09/06/2023 documented as of this encounter Plan of Treatment Upcoming Encounters Date Type Department Care Team (Late st Contact Info) Description 01/04/2024 11:20 AM EDT Procedure Visit [facility] 550 [facility] Medical Office [place] Floor 9 [place] [address] Katie Jones AUD 01/06/2024 2:00 PM EDT Appointment [facility] [address] [place] [address] 01/09/2024 2:00 PM EDT Office Visit [facility] 550 [facility] Medical Office [place] 19th Floor [address] [place] [address] Radha Coker MD 550 [place] [address] 01/10/2024 8:30 AM EDT Office Visit [facility] - Primary Care [address] [place] [address] Style, Sydnee Zelda, DO [address] [place] [facility] [place] [address] 01/11/2024 10:00 AM EDT Office Visit [facility] - E[facility] & [facility]ial Plastic Surgery [address] [place] [address] Kat Rico PA [address] [place] [address] 01/20/2024 11:45 AM EDT Clinical Support [facility] [address] [facility] [place] [address] Maria Eugenia Lucero, ORA [address] [place] [address] 01/30/2024 8:40 AM EST Office Visit [facility] 550 [facility] [place] 15th Floor [address] [place] [address] Jose Monique MD 550 [facility] [place] 15th Floor, [address] [place] [address] 02/27/2024 12:50 PM EST Office Visit [facility] [address] 4 [address] [place] [address] Kellie Bowser, OD [address], [address] [facility] [place] [address] 06/19/2024 11:30 AM EDT Appointment [facility] [address] [place] [address] 06/19/2024 1:00 PM EDT Appointment [facility] [address] [place] [address] 08/21/2024 1:40 PM EDT Office Visit [facility] at [address] [facility] [place] 3rd [place] [address] Satya Wright PA [address] 3rd [place] [address] 09/05/2024 10:30 AM EDT Office Visit [facility] [address] [place] [address] Tatiana Dominguez NP [address] [place] [address] documented as of this encounter Procedures Procedure Name Priority Date/Time Associated Diagnosis Comments FL LESS THAN 1 HOUR Routine 10/25/2022 9 :45 AM EDT Pain documented in this encounter Results * FL Less Than 1 Hour (10/25/2022 9:45 AM EDT) Narrative IMAGING - 10/25/2022 9:45 AM EDT Information regarding this exam is included in the provider's note. ??For questions, please contact the providing physician. Hieu Giles MD IMG FLUOROSCOPY PRO CEDURES IMAGING documented in this encounter Visit Diagnoses Diagnosis Pain Generalized pain documented in this encounter Additional Health Concerns Assessment Noted Time A fall risk assessment has been complete d for the patient 09/21/2022 10:24 AM EDT documented as of this encounter
--- OUTSIDE RECORDS SUMMARY | 2023-11-14 01:04 | XMS_ITS | Encounter Summary ---
Author Organization [facility] Address [address] [place] [address], [place] [address] Phone Care Team Providers Care Senior Painter Name Role Phone Unavailable Primary Care Provider Unavailabl e Reason for Visit * Reason Onset Date Comments Med Refill 09/27/2022 Encounter Details Date Type Department Care Team (Late st Contact Info) Description 09/27/2022 Telephone [facility] at [facility] - Primary Care [address] [facility] [address] [place] [address] Style, Sydnee Ndiaye, [address] [place]na at [facility] [place] [address] Med Refill Social History Tobacco Use Types [...] encounter Miscellaneous Notes * Telephone Encounter - Cynthia Reinoso - 10/01/2022 9:02 AM EDT Called pt to inform medication was sent to [facility]. Pt has already picked up medication. * Telephone Encounter - Jyoti Tate - 09/29/2022 11:[address] kim sent rx in, but patient came in the office today stating that the pharmacy it was sent to cost her over $300 and ask that you please send to [facility] which is [place]. She wants it to be sent [place] the [facility] [place] [phone]. * Telephone Encounter - Maya Levy - 09/27/2022 10:13 AM EDT MEDICATION RENEWAL Provider / MD: Vandana Medication 1: EPINEPHrine (Epipen) 0.3 mg/0.3 mL injection syringe Medication 2: The patient would like this rx to be sent to the pharmacy listed below. Call her with any questions. It was sent to the [facility] , but it was too expensive Pharmacy Name: [address] [facility] Phone #: [phone] documented in this encounter Plan of Treatment Upcoming Encounters Date Type Department Care Team (Late st Contact Info) Description 01/04/2024 11:20 AM EDT Procedure Visit [facility] [address] [facility] Medical Office [place] Floor 9 [place] [phone] Katie Jones AUD 01/06/2024 2:00 PM EDT Appointment [facility] [address] [place] [address] 01/09/2024 2:00 PM EDT Office Visit [facility] [address] [facility] Medical Office [place] 19th Floor [address] [place] [address] Radha Coker MD 550 [place] [address] 01/10/2024 8:30 AM EDT Office Visit [facility] - Primary Care [address] [place] [address] Vandana, Sydnee Ndiaye, [address] [place] at [facility] [place] [address] 01/11/2024 10:00 AM EDT Office Visit [facility] - ENT & Facial Plastic Surgery [address] [place] [address] Kat Rico PA [address] [place] [phone] 01/20/2024 11:45 AM EDT Clinical Support [facility] [address] [place] [address] Maria Eugenia Lucero, [facility] [address] [place] [address] 01/30/2024 8:40 AM EST Office Visit [facility] [address] [facility] Medical Office [place] 15th Floor [address] [place] [address] Jose Monique MD 550 [facility] Office [place] 15th Floor, [address] [place] [address] 02/27/2024 12:50 PM EST Office Visit [facility] [address] 4 [address] [place] [address] Kellie Bowser, OD [address], [address] [facility] [address] 06/19/2024 11:30 AM EDT Appointment [place] [address] [address] 06/19/2024 1:00 PM EDT Appointment [place] [address] [address] 08/21/2024 1:40 PM EDT Office Visit [facility] [address] 3rd [place] [address] Satya Wright PA [address] [place] [address] NE 3rd [place] [address] 09/05/2024 10:30 AM EDT Office Visit [facility] [address] [place] [address] Tatiana Dominguez, KASH [address] [place] [address] documented as of this encounter Visit Diagnoses Not on filedocumented in this encounter Additional Health Concerns Assessment Noted Time A fall risk assessment has been complete d for the patient 09/21/2022 10:24 AM EDT documented as of this encounter
--- OUTSIDE RECORDS SUMMARY | 2023-11-14 01:04 | XMS_ITS | Encounter Summary ---
Author Organization [facility] Address [address] [place], [place], [place] [address] Phone Care Team Providers Care Retail Shift Supervisor Name Role Phone Unavailable Primary Care Provider Unavailabl e Reason for Referral * Consultation (Routine) - Authorized Specialty Diagnoses / Procedures Referred By Farrah shook Referred To Contact Dermatology Diagnoses Skin cancer screening Procedures DC OFFICE/OUTPATIENT NEW HIGH MDM 60-74 MINUTES Sydnee Ross DO [address] [place] [address] Frandy Negrete MD [address] [place] [address] 3 [facility] [address] [place] [address] Referral ID Status Reason Start Date Expiration Date Visits Requested Visits Authorized [id number] Authorized Specialty Services Required 12/29/2022 12/29/2023 1 1 Scheduling Instructions Please call [phone] to schedule. Encounter Details Date Type Department Care Team (Late st Contact Info) Description 12/29/2022 Orders Only [place] at [facility] [address] [place] [address] Sydnee Ross DO [address] [place] at [facility] [place] [address] Skin cancer screening (Primary Dx) Social History Tobacco Use Types [...] and Family Not on file 12/29/2022 Attends Confucianist Services Not on file 12/29 Active Member [...] Recorded Patient Health Questionnaire-2 Score 1 09/21/2022 [facility] of Occupat ional Health - Occupational Stress [...] in a group home (including now)? No 12/29/2022 Sex and Gender Information Value Date Recorded Sex Assigned at Choose not to disclose 06/2023 9:41 PM EDT Gender Identity Female 01/17/2022 5:45 PM EDT Sexual Orientation Choose not to disclose 2023 9:41 PM EDT Job Start Date Occupation Industry Not on file Not on file Not on file documented as of this encounter Progress Notes * Sydnee Ross DO - 12/29/2022 8:21 AM EDT B re documented in this encounter Plan of Treatment Upcoming Encounters Date Type Department Care Team (Late st Contact Info) Description 01/04/2024 11:20 AM EDT Procedure Visit [facility] [address] [facility] Medical Office [place] Floor 9 [place] [address] Katie Jones AUD 01/06/2024 2:00 PM EDT Appointment [facility] [address] [place] [address] 01/09/2024 2:00 PM EDT Office Visit [facility] [address] [facility] Medical Office [place] 19th Floor [address] [place] [address] Radha Coker MD [address] [place] [address] 01/10/2024 8:30 AM EDT Office Visit [facility] - Primary Care [address] [place] [address] Vandana, Sydnee Ndiyae, [address] [facility] [place] [address] 01/11/2024 10:00 AM EDT Office Visit [facility] - ENT & Facial Plastic Surgery [address] [place] [address] Kat Rico, PATTIE [address] [place] [address] 01/20/2024 11:45 AM EDT Clinical Support [facility] [address] [place] [address] Maria Eugenia Lucero, ORA [address] [place] [address] 01/30/2024 8:40 AM EST Office Visit [facility] [address] [facility] Medical Office [place] 15th Floor [address] [place] [address] Jose Monique MD 550 [facility] Office [place] 15th Floor, [address] [place] [address] 02/27/2024 12:50 PM EST Office Visit [facility] [address] 4 [address] [place] [phone] 583 Kellie Bowser, OD [address], [address] [facility] [place] [address] 06/19/2024 11:30 AM EDT Appointment [facility] [address] [place] [address] 06/19/2024 1:00 PM EDT Appointment [facility] [address] [place] [address] 08/21/2024 1:40 PM EDT Office Visit [facility] at [address] [facility] [address] [facility] 3rd [place] [address] Satya Wright PA [address] 3rd [place] [address] 09/05/2024 10:30 AM EDT Office Visit [facility] [address] [place], [place] [phone] Tatiana Dominguez, KASH [address] [place] [address] Scheduled Referrals Name Type Priority Associated Diagnoses Order Schedule Ambulatory referral to Dermatology Outpatient Referral Routine Skin cancer screening Expected: 12/29/2022 (Approximate), Expires: 12/30/2023 documented as of this encounter Visit Diagnoses Diagnosis Skin cancer screening- Primary Screening for malignant neoplasm of the skin documented in this encounter Additional Health Concerns Assessment Noted Time A fall risk assessment has been complete d for the patient 12/29/2022 9:55 AM EDT documented as of this encounter
--- OUTSIDE RECORDS SUMMARY | 2023-11-14 01:04 | XMS_ITS | Encounter Summary ---
Author Organization [facility] Address [address] [place] [address], [place] [address] Phone Care Team Providers Care Corporate Statistical Financial Analyst Name Role Phone Unavailable Primary Care Provider Unavailabl e Reason for Visit * Auth/Cert (Routine) Specialty Diagnoses / Procedures Referred By Farrah shook Referred To Contact Diagnoses Spondylosis without myelopathy or radiculopathy, cervical region M47.812 CPT 60721, 72007 MEDICARE Procedures NE NJX DX/THER AGT PVRT FACET JT CRV/THRC 1 LEVEL NE NJX DX/THER AGT PVRT FACET JT CRV/THRC 2ND LEVEL Hieu Giles MD [address] [facility] [place] [address] Referral ID Status Reason Start Date Expiration Date Visits Re quested Visits Authorized [id number] 10/06/2022 1 1 Encounter Details Date Type Department Care Team (Latest Contact Info) Description 10/25/2022 9:01 AM EDT - 10/25/2022 9:25 AM EDT Hospital Encounter [facility] [place] [address] [place] [address] Discharge Disposition: DISCHARGED TO HOME OR SELF [...] AM EDT documented as of this encounter Last Filed Vital Signs Vital Sign Reading Time Taken Comments Blood Pressure 152/73 10/25/2022 9:13 AM EDT Pulse 63 10/25/2022 9:13 AM EDT Temperature 36 ??C (96.8 ??F) 10/25/2022 9:13 AM EDT Respiratory Rate 20 10/25/2022 9:13 AM EDT Oxygen Saturation 98% 10/25/2022 9:13 AM EDT Inhaled Oxygen Concentration - - Weight 66.7 kg (147 lb) 10/25/2022 9:13 AM EDT Height 176.5 cm (5' 9.5) 10/25/2022 9:13 AM EDT Body Mass Index 21.4 10/25/2022 9:13 AM EDT documented in this encounter Discharge Instructions * Discharge Instructions* EdelmiraRylee jovel N - 10/25/2022 9:13 AM EDT Spinal Injection Discharge Instructions General Instructions In case of emergency, call 911 or go immediately to the nearest emergency room. Please be aware a few patients may experience a temporary increase of leg, arm, neck, or back pain.This generally decreases after a couple of days. You may resume your regular pre procedure medication(s). However, you SHOULD NOT take any blood thinning for 24 hours unless directed by your physician. These include NSAIDS (such as ibuprofen and Aleve), Aspirin products (such as Sherri and Goody's), and anti-platelet agents (such as Plavix and Ticlid). Contact your physician if you have a persistent nausea or hiccups, develop redness, swelling or active bleeding at the injection site; are unable to urinate for more than 8 hours; have severe unrelieved headache; have severe unrelieved pain; develop a temperature greater than 101 degrees Fahrenheit; or have other concerns. If the injection site is painful you may use an ice pack for 20 minutes each hour for up to 3 days.Do NOT use a heating pad directly on the site for 24 hours follow this procedure. Please contact the physician responsible for your spine care to let him or her know how you are doing in 2-4 weeks. You can do this through the patient portal or with a phone call. You may remove your Band-Aid today. You may shower today, but do not submerge the injection site inwater (bath, hot tub, swimming pool) until the injection site is fully healed (usually about 24 hours). Local Anesthetic Medication You may experience temporary motor weakness or numbness in your arm(s) or leg(s). This typically resolves in 1 to 6 hours. Take extra care when standing and walking. Plan to have someone assist you with your activities until the numbness and weakness resolves. YOU MUST NOT DRIVE TODAY. YOU MUST HAVE SOMEONE DRIVE YOU HOME. Steroids (If you received during your procedure) ???Steroid Flush?? You may develop a hot sensation with flushing of the face, chest, and neck. This typically lasts only a few minutes but may recur over the next few days. ???Irritability or Insomnia?? This may persist for 2 to 3 days but will gradually subside. ???Stomach Irritability?? If heartburn or nausea symptoms persist over 24 hours please call your physician. Be aware - steroids are slowly released. It may take up to 2 WEEKS to determine whether or not theyworked for your pain. Follow up in 2-4 weeks for this reason. Intravenous Sedation (If you received during your procedure) The medications used during your procedures may not be completely eliminated from your body for 24 hours. You may feel ???sleepy?? or ???not yourself.?? For the next 24 hours - DO NOT drive, operate machinery or power tools, drink alcohol, make important decisions, or sign documents. Eat something light and non-spicy for your first meal to help you avoid nausea. FOR [facility] APPOINTMENTS: [phone] If there are any emergency issues after hours, the physician who performed your injection can be paged through the [facility] extruder operator vertical at [phone] documented in this encounter Medications at Time of Discharge Medication Sig Dispensed Refills Start Date End Date ascorbic tfeu-hdqgsaww-dka (Emergen-C) 1,000 mg powder effervescent in packet Take by mouth once daily. 03/28/2019 ibuprofen 200 mg tablet Take by mouth if needed. PRN 03/28/2021 multivit with minerals/lutein (MULTIVITAMIN 50 PLUS ORAL) Take by mouth once daily. 03/28/2022 omega 0-oht-spk-fish oil 1,000 mg (120 mg-180 mg) capsule [...] as of this encounter H&P Notes * Hieu Giles MD - 10/23/2022 2:15 PM EDT PLAN LEFT C2/3 C4/5 FACET LEVEL MBB JCK documented in this encounter Miscellaneous Notes * Perioperative Nursing Note - Anna Ori - 10/25/2022 10:15 AM EDT Patient A+O x4, NAD, VSS. Discharge instructions reviewed with patient and opportunities for questions allowed. Patient verbalized and demonstrated understanding as evidenced by positive teach-back. Injection site at neck clean, dry, and intact. Patient denies any pain or new numbness/motor weakness at this time. Patient discharged without event. * Op Note - Hieu Giles MD - 10/25/2022 9:36 AM EDT Operative Note Date: 10/25/2022 Location: [facility] OR Name: Gianna Infante, : 1945, [facility] Procedure Note LEFT C2/3, C4/5 facet level MBB Pre-Procedure Diagnosis/ Indication: Cervical spondylosis Post-Procedure Diagnosis: Cervical spondylosis Interval History: Denies interval changes. Patient would like to have a spine injection to address spine-related pain. Denies fevers or recent illness, new blood thinners, new allergies. Will not be driving today. Physical Exam: AFVSS; refer to nursing record Alert, normally oriented, fluent, no acute distress Unchanged motor function, gait Skin on neck normal Procedure: Physicians: Dr. Giles (attending, present for entire procedure). Consent obtained: Yes. The procedure and risks were explained and informed consent was obtained from the patient, in writing. Position of patient: Prone Preparation: Sterile chloroprep Procedure medications: Local anesthetic superficially: BUPIVAcaine 0.5% Contrast: None Injectate at targets: BUPIVAcaine 0.5%, ~0.5 mL per site Needle: 25 G 3.5 inch Quinke Fluoroscopy: Refer to radiology records for dosing. Blood loss: Zero mL Specimens: None Complications: None Skin: Normal post-procedure Other: Well-tolerated Narrative: The patient was placed in position on a fluoroscopy table, and sterile prep was performed. The patient was monitored throughout the procedure. Fluoroscopy was used to identify the bony landmarks of medial branch/posterior primary ramus nerve location. After local anesthetic, the spinal needle was advanced under intermittent fluoroscopic guidance. Confirmation of proper needle position was made with multiple fluoroscopic views. After confirmation and a negative pre-injection aspiration, the medication was slowly injected. Observed afterwards in the recovery room. There was no new motor block or sensory deficit. Assessment/Plan: S/P spine injection LEFT C2/3, C4/5 facet level MBB Pre-pain 6 Post pain 2 Today the patient had an acceptable initial response, and the procedure was well-tolerated overall.Well-tolerated. Based on response will consider RF for more lasting relief. The patient will return as planned, or as needed. Discharged in stable condition, with written instructions. All universal protocol elements and procedure policies were followed. Hieu Giles M.D. * Preprocedure Instructions - Jose Russell - 10/22/2022 9:36 AM EDT Pre-procedure screening complete. Scheduled for injection with Dr. Giles on 10.25.2022. Arrival time (0900) and location [address] [place] [address] reviewed with patient. Packager Hand instructions(Must accompany patient for check in and stay on site until discharge), given topatient. Instructed no solid food 6 hours before procedure. States has stopped NSAIDs and anti-inflammatory medications per instructions given to them by the doctor. Instructed may have clear liquids until 3 hours prior to procedure. Patient denies current COVID-19 symptoms, fever or recent antibiotic use. Patient denies recent chest pains, stroke symptoms, ED visits or medical changes within the past 3 months. Your otr flatbed company truck driver must remain there the entire time of your procedure and drive you home. Please go directly to the second floor L2. Please bring in your eye glasses. There will be paperwork for you to review and sign. Please bring picture ID and wear loose comfortable clothing. documented in this encounter Plan of Treatment Upcoming Encounters Date Type Department Care Team (Late st Contact Info) Description 01/04/2024 11:20 AM EDT Procedure Visit [facility] [address] Medical Office [place] Floor 9 [place] [address] Katie Jones, LISA 01/06/2024 2:00 PM EDT Appointment [facility] [address] [place] [address] 01/09/2024 2:00 PM EDT Office Visit [facility] [address] [facility] Medical Office [place] 19th Floor [address] [place] [address] Radha Cokre MD 550 [place] [address] 01/10/2024 8:30 AM EDT Office Visit [facility] [address] [place] [address] Vandana, Sydnee Ndiaye, [address] [facility] [place] [address] 01/11/2024 10:00 AM EDT Office Visit [facility] - ENT & Facial Plastic Surgery [address] [place] [address] Kat Rico, PATTIE [address] [place] [address] 01/20/2024 11:45 AM EDT Clinical Support [facility] [address] [place] [address] Maria Eugenia Lucero, [facility] [place] [address] 01/30/2024 8:40 AM EST Office Visit [facility] [address] [facility] Medical Office [place] 15th Floor [address] [place] [address] Jose Monique MD 550 [facility] [place] 15th Floor, [address] [place] [address] 02/27/2024 12:50 PM EST Office Visit [facility] [address] [place] [phone] Kellie Bowser, OD [address], [address] [facility] [place] [address] 06/19/2024 11:30 AM EDT Appointment [place] [address] [place] [address] 06/19/2024 1:00 PM EDT Appointment [place] [address] [place] [address] 08/21/2024 1:40 PM EDT Office Visit [facility] [address] 3rd [place] [address] Satya Wright PA [address] [facility] 3rd [place] [address] 09/05/2024 10:30 AM EDT Office Visit [facility] [address] [place] [address] Tatiana Dominguez, LOOM MECHANIC [address] [place] [address] documented as of this encounter Procedures Procedure Name Priority Date/Time Associated Diagnosis Comments NE NJX DX/THER AGT PVRT FACET JT CRV/THRC 1 LEVEL 10/25/2022 9:31 AM EDT Spondylosis without myelopathy or radiculopathy, cervical region documented in this encounter Visit Diagnoses Not on filedocumented in this encounter Additional Health Concerns Assessment Noted Time A fall risk assessment has been complete d for the patient 09/21/2022 10:24 AM EDT documented as of this encounter
--- OUTSIDE RECORDS SUMMARY | 2023-11-14 01:04 | XMS_ITS | Encounter Summary ---
Author Organization [facility] Address [address] [place] [address], [place] [address] Phone Care Team Providers Care Maintenance Plumber Name Role Phone Unavailable Primary Care Provider Unavailabl e Reason for Visit * Reason Onset Date Comments Appointment 09/27/2022 Encounter Details Date Type Department Care Team (Late st Contact Info) Description 09/27/2022 Telephone [facility] [address] [place] [address] Hieu Giles MD [address] [facility] [address] Appointment Social History Tobacco Use Types Packs/Day [...] encounter Miscellaneous Notes * Telephone Encounter - Elvira Lloyd - 09/27/2022 10:05 AM EDT CLINICAL CONCERN Concern / Question: Patient wants to reschedule her appointment scheduled for 10/01. documented in this encounter Plan of Treatment Upcoming Encounters Date Type Department Care Team (Late st Contact Info) Description 01/04/2024 11:20 AM EDT Procedure Visit [facility] 550 [facility] Medical Office [place] Floor 9 [place] [address] Katie Jones AUD 01/06/2024 2:00 PM EDT Appointment [facility] [address] [place] [address] 01/09/2024 2:00 PM EDT Office Visit [facility] 550 [facility] Medical Office [place] 19th [address] [place] [address] Radha Coker MD 550 [place] [address] 01/10/2024 8:30 AM EDT Office Visit [facility] [address] [place] [address] Vandana, Sydnee Ndiaye, DO [address] [facility] [place] [address] 01/11/2024 10:00 AM EDT Office Visit [facility] - [facility]NT & Facial Plastic Surgery [address] [facility] [address] [place] [address] Kat Rico PA [address] [place] [address] 01/20/2024 11:45 AM EDT Clinical Support [facility] 5[address] [place] [address] Maria Eugenia Lucero, ORA [address] [place] [address] 01/30/2024 8:40 AM EST Office Visit [facility] 550 [facility] Medical Office [place] 15th [address] [place] [address] Jose Monique MD 550 [facility] Medical Office [place] 15th Floor, [address] [place] [address] 02/27/2024 12:50 PM EST Office Visit [facility] 5671 [facility] Floor 4 [address] [place] [phone] 172-184 Kellie Bowser, OD 5671 [facility] Fl 4, [address] [facility] [place] [address] 06/19/2024 11:30 AM EDT Appointment [place] [address] [address] 06/19/2024 1:00 PM EDT Appointment [place] [address] [address] 08/21/2024 1:40 PM EDT Office Visit [facility] [address] 3rd [place] [address] Satya Wright PA 1525 [facility] 3rd [place] [address] 09/05/2024 10:30 AM EDT Office Visit [facility] [address] [place] [address] Tatiana Dominguez, KASH [address] [place] [address] documented as of this encounter Visit Diagnoses Not on filedocumented in this encounter Additional Health Concerns Assessment Noted Time A fall risk assessment has been complete d for the patient 09/21/2022 10:24 AM EDT documented as of this encounter
--- OUTSIDE RECORDS SUMMARY | 2023-11-14 01:04 | XMS_ITS | Encounter Summary ---
Author Organization [facility] Address [address] [place], [place], [place] [address] Phone Care Team Providers Care Janitorial Supervisor Name Role Phone Unavailable Primary Care Provider Unavailabl e Reason for Visit * Reason Onset Date Comments callback 10/06/2022 Encounter Details Date Type Department Care Team (Late st Contact Info) Description 10/06/2022 Telephone [facility] [facility] 1365 [facility] B Floor 1 [place] [address] Todd Chairez MD 1365 [facility] B, [place] 1 [place] [address] callback Social History Tobacco Use Types Packs/Day Years [...] encounter Miscellaneous Notes * Telephone Encounter - Galina Rodarte - 10/06/2022 12:46 PM EDT CLINICAL CONCERN Concern / Question: patient was calling to confirm with Marci that August 09 works for her. Please be advised documented in this encounter Plan of Treatment Upcoming Encounters Date Type Department Care Team (Late st Contact Info) Description 01/04/2024 11:20 AM EDT Procedure Visit [facility] 550 [facility] Medical Office [place] Floor 9 [place] [address] Katie Jones AUD 01/06/2024 2:00 PM EDT Appointment [facility] [address] [place] [address] 01/09/2024 2:00 PM EDT Office Visit [facility] 550 [facility] Medical Office [place] 19th Floor [address] [place] [address] Radha Coker MD 550 [place] [address] 01/10/2024 8:30 AM EDT Office Visit [facility] - Primary Care [address] [place] [address] Style, Sydnee Ndiaye, DO [address] [facility] [place] [address] 01/11/2024 10:00 AM EDT Office Visit [facility] - ENT & Facial Plastic Surgery [address] [facility] 707 [place] [address] Kat Rico PA 1364 [place] [address] 01/20/2024 11:45 AM EDT Clinical Support [facility] [address] [place] [place] [address] Maria Eugenia Lucero LAC [address] [place] [address] 01/30/2024 8:40 AM EST Office Visit [facility] 550 [facility] Medical Office [place] 15th Floor [address] [place] [address] Jose Monique MD 550 [facility] Office [place] 15th Floor, [address] [place] [address] 02/27/2024 12:50 PM EST Office Visit [facility] 5[address] [facility] Floor 4 [address] [place] [address] Kellie Bowser, OD [address] [facility] Fl 4, [address] [facility] [place] [address] 06/19/2024 11:30 AM EDT Appointment [place] [address] [address] 06/19/2024 1:00 PM EDT Appointment [place] [address] [address] 08/21/2024 1:40 PM EDT Office Visit [facility] [address] 3rd [place] [address] Satya Wright PA 1525 [facility] 3rd [place] [address] 09/05/2024 10:30 AM EDT Office Visit [facility] [address] [place] [address] Tatiana Dominguez, KASH [address] [place] [address] documented as of this encounter Visit Diagnoses Not on filedocumented in this encounter Additional Health Concerns Assessment Noted Time A fall risk assessment has been complete d for the patient 09/21/2022 10:24 AM EDT documented as of this encounter
--- OUTSIDE RECORDS SUMMARY | 2023-11-14 01:04 | XMS_ITS | Encounter Summary ---
Author Organization [facility] Address [address] [place], [place], [place] [address] Phone Care Team Providers Care Bridge Painter Name Role Phone Unavailable Primary Care Provider Unavailabl e Encounter Details Date Type Department Care Team (Late st Contact Info) Description 11/23/2022 Orders Only [place] [facility] - Primary Care [address] [place] [address] Style, Sydnee Ndiaye, DO [address] [facility] [place] [address] Social History Tobacco Use Types Packs/Day Years [...] Description 01/04/2024 11:20 AM EDT Procedure Visit [facility] [address] [facility] Medical Office [place] Floor 9 [place] [address] Katie Jones, LISA 01/06/2024 2:00 PM EDT Appointment [facility] [address] [place] [address] 01/09/2024 2:00 PM EDT Office Visit [facility] [address] [facility] Medical Office [place] 19th Floor [address] [place] [address] Radha Coker MD 550 [place] [address] 01/10/2024 8:30 AM EDT Office Visit [facility] Primary [facility] [place] [facility] [address] [place] [address] Sydnee Ross, [address] [facility] [place] [address] 01/11/2024 10:00 AM EDT Office Visit [facility] - [facility]NT & Facial Plastic Surgery [address] [place] [address] Kat Rico PA [address] [place] [address] 01/20/2024 11:45 AM EDT Clinical Support [facility] 5673 [place] [address] Maria Eugenia Lucero, ORA [address] [place] [address] 01/30/2024 8:40 AM EST Office Visit [facility] [address] [facility] Medical Office [place] 15th Floor [address] [place] [address] Jose Monique MD 550 [facility] [place] 15th Floor, [address] [place] [address] 02/27/2024 12:50 PM EST Office Visit [facility] [address] [facility] [address] Floor 4 [address] [place] [address] Kellie Bowser, OD [address] [facility] [address] Fl 4, [address] [facility] [place] [address] 06/19/2024 11:30 AM EDT Appointment [facility] [address] [place] [address] 06/19/2024 1:00 PM EDT Appointment [facility] [address] [address] 08/21/2024 1:40 PM EDT Office Visit [facility] at 15[address] [place] [address] [facility] 3rd [place] [address] Satya Wright PA 1525 [facility] 3rd [place] [address] 09/05/2024 10:30 AM EDT Office Visit [facility] [address] [place] [address] Tatiana Dominguez, KASH [address] [place] [address] documented as of this encounter Visit Diagnoses Not on filedocumented in this encounter Additional Health Concerns Assessment Noted Time A fall risk assessment has been complete d for the patient 09/21/2022 10:24 AM EDT documented as of this encounter
--- OUTSIDE RECORDS SUMMARY | 2023-11-14 01:04 | XMS_ITS | Encounter Summary ---
Author Organization [facility] Address [address] [place], [place], [place] [address] Phone Care Team Providers Care Consulting Solution Manager Name Role Phone Unavailable Primary Care Provider Unavailabl e Reason for Visit * Reason Onset Date Comments Advice Only 10/05/2022 Encounter Details Date Type Department Care Team (Late st Contact Info) Description 10/05/2022 Telephone [facility] [facility] [address] [place] [address] Bl [address] Floor 1 [place] [address] Walter [place] MD [address] [facility] 5, [address] [place] [address] Advice Only Social History Tobacco Use Types [...] Telephone Encounter - Walter [place] MD - 11/15/2022 7:57 PM EDT Cancel it * Telephone Encounter - Jerica Norris - 10/05/2022 12:43 PM EDT CLINICAL CONCERN Concern / Question: patient has a order for a mri placed on her chart and states that her last Mri was in July . Patient would like to know if she should schedule another appt for her Mri or should she wait a full year to have another Mri done which will be july 2023. Patient is requesting a call back for clarification.. documented in this encounter Plan of Treatment Upcoming Encounters Date Type Department Care Team (Late st Contact Info) Description 01/04/2024 11:20 AM EDT Procedure Visit [facility] 550 [facility] Medical Office [place] Floor 9 [place] [address] Katie Jones AUD 01/06/2024 2:00 PM EDT Appointment [facility] [address] [place] [address] 01/09/2024 2:00 PM EDT Office Visit [facility] 550 [facility] Office [place] 19th Floor [address] [place] [address] Radha Coker MD 550 [place] [address] 01/10/2024 8:30 AM EDT [facility] Visit [facility] Care [address] [place] [address] Sydnee Ross, DO [address] [facility] [place] [address] 01/11/2024 10:00 AM EDT Office Visit [facility] - ENT & Facial Plastic Surgery [address] [place] [address] Kat Rico, PATTIE [address] [place] [address] 01/20/2024 11:45 AM EDT Clinical Support [facility] 5673 [place] [address] Maria Eugenia Lucero, ORA [address] [place] [address] 01/30/2024 8:40 AM EST Office Visit [facility] 550 [facility] Medical Office [place] 15th Floor [address] [place] [address] Jose Monique MD 550 [facility] Office [place] 15th Floor, [address] [place] [address] 02/27/2024 12:50 PM EST Office Visit [facility] 5671 [facility] Floor 4 [address] [place] [address] Kellie Bowser, OD [address] [facility] [address] 4, [address] [facility] [place] [address] 06/19/2024 11:30 AM EDT Appointment [facility] [address] [place] [address] 06/19/2024 1:00 PM EDT Appointment [facility] [address] [place] [address] 08/21/2024 1:40 PM EDT Office Visit [facility] [address] 1525 [facility] 3rd [place] [address] Satya Wright PA 1525 [facility] 3rd [place] [address] 09/05/2024 10:30 AM EDT Office Visit [facility] [address] [place] [address] Tatiana Dominguez, KASH [address] [facility] [place] [address] documented as of this encounter Visit Diagnoses Not on filedocumented in this encounter Additional Health Concerns Assessment Noted Time A fall risk assessment has been complete d for the patient 09/21/2022 10:24 AM EDT documented as of this encounter
--- OUTSIDE RECORDS SUMMARY | 2023-11-14 01:04 | XMS_ITS | Encounter Summary ---
Author Organization [facility] Address [address] [place], [place], [place] [address] Phone Care Team Providers Care Mechanical Striper Name Role Phone Unavailable Primary Care Provider Unavailabl e Encounter Details Date Type Department Care Team (Late st Contact Info) Description 11/23/2022 Telephone [place] [facility] - Primary Care [address] [place] [address] Sydnee Ross, [address] [place] [facility] [place] [address] Social History Tobacco Use Types Packs/Day Years [...] encounter Miscellaneous Notes * Telephone Encounter - Rosy Medrano - 11/23/2022 4:31 PM EDT Addressed-sent to Sirisha * Telephone Encounter - Tanesha Whitman - 11/23/2022 3:57 PM EDT CLINICAL CONCERN Concern / Question: Dr Ross Ms Infante is trying to inform you all where to send your medication not [facility] out of town but please send it to [facility] [phone] [address] [place] [address] [place] [address] documented in this encounter Plan of Treatment Upcoming Encounters Date Type Department Care Team (Late st Contact Info) Description 01/04/2024 11:20 AM EDT Procedure Visit [facility] 550 [facility] Medical Office [place] Floor 9 [place] [address] Katie Jones, LISA 01/06/2024 2:00 PM EDT Appointment [facility] [address] [place], [place] [address] 01/09/2024 2:00 PM EDT Office Visit [facility] 550 [facility] Medical Office [place] 19th Floor [address] [place] [address] Radha Coker MD 550 [place] [address] 01/10/2024 8:30 AM EDT Office Visit [facility] - Primary Care [address] [place] [address] Sydnee Ross, [address] [facility] [place] [address] 01/11/2024 10:00 AM EDT Office Visit [facility] - [facility] Pl[facility] Surgery [address] [facility] [address] [place] [address] Kat Rico, PA 1364 [place] [address] 01/20/2024 11:45 AM EDT Clinical Support [facility] [address] [place] [address] Maria Eugenia Lucero LAC [address] [place] [address] 01/30/2024 8:40 AM EST Office Visit [facility] 550 [facility] Medical Office [place] 15th Floor [address] [place] [address] Jose Monique MD 550 [facility] Office [place] 15th Floor, [address] [place] [address] 02/27/2024 12:50 PM EST Office Visit [facility] 5671 [facility] Floor 4 [address] [place] [address] Kellie Bowser, OD [address] 4, [address] [facility] [place] [address] 06/19/2024 11:30 AM EDT Appointment [place] [address] [address] 06/19/2024 1:00 PM EDT Appointment [place] [address] [address] 08/21/2024 1:40 PM EDT Office Visit [facility] [address] 3rd [place] [address] Satya Wright PA 1525 [facility] 3rd [place] [address] 09/05/2024 10:30 AM EDT Office Visit [facility] [address] [place], [place] [address] Tatiana Dominguez, INTENSIVE CARE ANAESTHETIST [address] [place] [address] documented as of this encounter Visit Diagnoses Not on filedocumented in this encounter Additional Health Concerns Assessment Noted Time A fall risk assessment has been complete d for the patient 09/21/2022 10:24 AM EDT documented as of this encounter
--- OUTSIDE RECORDS SUMMARY | 2023-11-14 01:04 | XMS_ITS | Encounter Summary ---
Author Organization [facility] Address [address] [place], [place], [place] [address] Phone Care Team Providers Care Cake Knocker Name Role Phone Unavailable Primary Care Provider Unavailabl e Reason for Visit * Reason Onset Date Comments reclast infusion 12/27/2022 Encounter Details Date Type Department Care Team (Late st Contact Info) Description 12/27/2022 Telephone [facility] 550 [facility] Medical Office [place] 19th Floor [address] [place] [address] None, Pcp reclast infusion Social History Tobacco Use Types Packs/Day Years [...] and Family Not on file 12/29/2022 Attends [employer] Not on file 12/29 Active Member [...] Recorded Patient Health Questionnaire-2 Score 1 09/21/2022 [facility] [place] of Occupat ional Health - Occupational Stress [...] in a skilled nursing (including now)? No 12/29/2022 Sex and Gender [...] encounter Miscellaneous Notes * Telephone Encounter - Amy Anguiano - 12/27/2022 12:13 PM EDT CLINICAL CONCERN Concern / Question: Please advise NRP of Dr. Lux's is calling in to request a callback regarding annual reclast infusion. documented in this encounter Plan of Treatment Upcoming Encounters Date Type Department Care Team (Late st Contact Info) Description 01/04/2024 11:20 AM EDT Procedure Visit [facility] 550 [facility] Medical Office [place] Floor 9 [place] [address] Katie Jones, LISA 01/06/2024 2:00 PM EDT Appointment [facility] [address] [place] [address] 01/09/2024 2:00 PM EDT Office Visit [facility] 550 [facility] Medical Office [place] 19th Floor [address] [place] [address] Radha Coker MD 550 [place] [address] 01/10/2024 8:30 AM EDT Office Visit [facility] [address] [place] [address] Vandana, Sydnee Ndiaye, [address] [facility] [place] [address] 01/11/2024 10:00 AM EDT Office Visit [facility] - E[facility] & [facility]ial Pl[facility] Surgery [address] [facility] [address] [place] [address] Kat Rico PA 1364 [place] [address] 01/20/2024 11:45 AM EDT Clinical Support [facility] 5673 [place] [address] Maria Eugenia Lucero LAC [address] [place] [address] 01/30/2024 8:40 AM EST Office Visit [facility] 550 [facility] [place] 15th Floor [address] [place] [address] Jose Monique MD 550 [facility] Office [place] 15th Floor, [address] [place] [address] 02/27/2024 12:50 PM EST Office Visit [facility] 5671 [facility] Floor 4 [address] [place] [phone] Kellie Bowser, OD 5671 [facility] Fl 4, [address] [facility] [place] [address] 06/19/2024 11:30 AM EDT Appointment [place] [address] [address] 06/19/2024 1:00 PM EDT Appointment [place] [address] [address] 08/21/2024 1:40 PM EDT Office Visit [facility] at [address] [place] [address] 3rd [place] [address] Satya Wright PA 1525 [facility] 3rd [place] [address] 09/05/2024 10:30 AM EDT Office Visit [facility] [address] [place] [address] Tatiana Dominguez, KASH [address] [place] [address] documented as of this encounter Visit Diagnoses Not on filedocumented in this encounter Additional Health Concerns Assessment Noted Time A fall risk assessment has been complete d for the patient 09/21/2022 10:24 AM EDT documented as of this encounter
--- OUTSIDE RECORDS SUMMARY | 2023-11-14 01:04 | XMS_ITS | Encounter Summary ---
Author Organization [facility] Address [address] [place] [address], [place] [address] Phone Care Team Providers Care Insurance Account Representative Name Role Phone Unavailable Primary Care Provider Unavailabl e Reason for Visit * Reason Onset Date Comments Advice Only 10/05/2022 Encounter Details Date Type Department Care Team (Late st Contact Info) Description 10/05/2022 Telephone [facility] [address] [place] [address] Hieu Giles MD [address] [facility] [address] Advice Only Social History Tobacco Use Types [...] encounter Miscellaneous Notes * Telephone Encounter - Mireya Mac - 10/05/2022 12:51 PM EDT .CLINICAL CONCERN Concern / Question: Patient called in because she would like to know if the referral that was put in, is it related to the spine and is it necessary. Patient would like a return phone call from the nurse Nabil in regards to rescheduling her neck procedure. Please call and advise patient. documented in this encounter Plan of Treatment Upcoming Encounters Date Type Department Care Team (Late st Contact Info) Description 01/04/2024 11:20 AM EDT Procedure Visit [facility] [address] [facility] Medical Office [place] Floor 9 [place] [address] Katie Jones, LISA 01/06/2024 2:00 PM EDT Appointment [facility] [address] [place], [place] [id number] 01/09/2024 2:00 PM EDT Office Visit [facility] 550 [facility] Medical Office [place] 19th Floor [address] [place] [address] Radha Coker MD 550 [place] [address] 01/10/2024 8:30 AM EDT Office Visit [facility] - Primary Care [address] [place] [address] Sydnee Ross DO [address] [facility] [place] [address] 01/11/2024 10:00 AM EDT Office Visit [facility] - ENT & Facial Plastic Surgery [address] [facility] [address] [place] [address] Kat Rico, PATTIE [address] [place] [address] 01/20/2024 11:45 AM EDT Clinical Support [facility] [address] [facility] [place] [address] Maria Eugenia Lucero LAC [address] [place] [address] 01/30/2024 8:40 AM EST Office Visit [facility] [address] [facility] Medical Office [place] 15th Floor [address] [place] [address] Jose Monique MD 550 [facility] Office [place] 15th Floor, [address] [place] [address] 02/27/2024 12:50 PM EST Office Visit [facility] [address] [facility] Floor 4 [address] [place] [address] Kellie Bowser, OD [address], [address] [facility] [place] [address] 06/19/2024 11:30 AM EDT Appointment [place] [address] [place] [address] 06/19/2024 1:00 PM EDT Appointment [place] [address] [place] [address] 08/21/2024 1:40 PM EDT Office Visit [facility] [address] 3rd [place] [address] Satya Wright PA [address] [facility] [address] 3rd [place] [address] 09/05/2024 10:30 AM EDT Office Visit [facility] [address] [place], [place] [address] [place], Tatiana F, TIN PLATER [address] [place] [address] documented as of this encounter Visit Diagnoses Not on filedocumented in this encounter Additional Health Concerns Assessment Noted Time A fall risk assessment has been complete d for the patient 09/21/2022 10:24 AM EDT documented as of this encounter
--- OUTSIDE RECORDS SUMMARY | 2023-11-14 01:04 | XMS_ITS | Encounter Summary ---
Author Organization [facility] Address [address] [place] [address], [place] [address] Phone Care Team Providers Care Hand Sander Name Role Phone Unavailable Primary Care Provider Unavailabl e Reason for Visit * Reason Onset Date Comments Appointment 10/01/2022 Encounter Details Date Type Department Care Team (Late st Contact Info) Description 10/01/2022 Telephone [facility] [address] [place] [address] Hieu Giles MD [address] [facility] [place] [address] Appointment Social History Tobacco Use Types Packs/Day [...] * Telephone Encounter - Elvira Lloyd - 10/01/2022 3:19 PM EDT CLINICAL CONCERN Concern / Question: Patient wants to postpose her procedure for Tuesday. documented in this encounter Plan of Treatment Upcoming Encounters Date Type Department Care Team (Late st Contact Info) Description 01/04/2024 11:20 AM EDT Procedure Visit [facility] [address] [facility] Medical Office [place] Floor 9 [place] [address] Katie Jones AUD 01/06/2024 2:00 PM EDT Appointment [facility] [address] [place] [address] 01/09/2024 2:00 PM EDT Office Visit [facility] [address] [facility] Medical Office [place] 19th Floor [address] [place] [address] Radha Coker MD 550 [place] [address] 01/10/2024 8:30 AM EDT Office Visit [facility] - Primary Care [address] [place] [address] Vandana, Sydnee Ndiaye, DO [address] [facility] [place] [address] 01/11/2024 10:00 AM EDT Office Visit [facility] - ENT & Facial Plastic Surgery [address] [facility] [address] [place] [address] Kat Rico PA [address] [place] [address] 01/20/2024 11:45 AM EDT Clinical Support [facility] 5[address] [place] [address] Maria Eugenia Lucero, ORA [address] [place] [address] 01/30/2024 8:40 AM EST Office Visit [facility] [address] [facility] [place] 15th Floor [address] [place] [address] Jose Monique MD 550 [facility] Medical Office [place] 15th Floor, [address] [place] [address] 02/27/2024 12:50 PM EST Office Visit [facility] [address] [facility] Floor 4 [address] [place] [address] Kellie Bowser, OD [address] [facility] Fl 4, [address] [facility] [place] [address] 06/19/2024 11:30 AM EDT Appointment [place] [address] [address] 06/19/2024 1:00 PM EDT Appointment [place] [address] [address] 08/21/2024 1:40 PM EDT Office Visit [facility] [address] 3rd [place] [address] Satya Wright PA [address] [facility] 3rd [place] [address] 09/05/2024 10:30 AM EDT Office Visit [facility] [address] [place] [address] Tatiana Dominguez, KASH [address] [place] [address] documented as of this encounter Visit Diagnoses Not on filedocumented in this encounter Additional Health Concerns Assessment Noted Time A fall risk assessment has been complete d for the patient 09/21/2022 10:24 AM EDT documented as of this encounter
--- OUTSIDE RECORDS SUMMARY | 2023-11-14 01:04 | XMS_ITS | Encounter Summary ---
Author Organization [facility] Address [address] [place] [address], [place] [address] Phone Care Team Providers Care Undercover Operator Name Role Phone Unavailable Primary Care Provider Unavailabl e Reason for Visit * Reason Comments Follow-up Pain * Consultation (Routine) - Closed Specialty Diagnoses / Procedures Referred By Farrah t Referred To Contact Spine Diagnoses Cervical radiculopathy Procedures MD OFFICE/OUTPATIENT [facility] 60-74 MINUTES Earl Flynn MD [address] [place] [address] [place] [address] Referral ID Status Reason Start Date Expiration Date V isits Requested Visits Authorized [id number] Closed Specialty Services Required 08/17/2022 08/17/2023 1 1 Encounter Details Date Type Department Care Team (Late st Contact Info) Description 09/23/2022 2:45 PM EDT Office Visit [facility] [address] [address] Hieu Giles MD [address] [place] [address] [facility] [address] Cervical radiculopathy (Primary Dx); Cervical spondylosis; Lumbar spondylosis Social History Tobacco Use Types [...] suspected to have Coronavirus/COVID-19? No / Unsure 09/23/2022 2:06 PM EDT documented as of this encounter Last Filed Vital Signs Vital Sign Reading Time Taken Comments Blood Pressure 133/84 09/23/2022 2:19 PM EDT Pulse 66 09/23/2022 2:19 PM EDT Temperature - - Respiratory Rate - - Oxygen Saturation - - Inhaled Oxygen Concentration - - Weight 67.1 kg (148 lb) 09/23/2022 2:19 PM EDT Height 176.5 cm (5' 9.5) 09/23/2022 2:19 PM EDT Body Mass Index 21.54 09/23/2022 2:19 PM EDT documented in this encounter Progress Notes * Oli Sy - 09/23/2022 2:45 PM EDT Answers submitted by the patient for this visit: Spine Patient Questionnaire (Submitted on 09/23/2022) Chief Complaint: SPINE MYCHART PATIENT RFV Returning for same problem: yes Reason for visit: to discuss BOTH their scoliosis or spinal deformity AND pain or some other problem in neck, back, arm or leg Primary complaint: left hip/groin Secondary complaint: neck Third complaint: neck Red flags: pain awakens from sleep Problem impact: limits both their abilities to work and perform recreational activities Had accident or injury: had an accident Accident injury cause: a sports injury Accident when: less than 2 weeks ago Left hip/groin pain description: sharp pain, burning pain, shooting pain, tingling Left hip/groin pain trending: steadily worsening Left hip/groin pain worst: 7 Left hip/groin pain average: 4 Left hip/groin pain frequency: 90% Left hip/groin resting pain relief: 20% Left hip/groin pain worse: standing, walking Left hip/groin pain better: lying down Neck pain description: sharp pain, shooting pain Neck pain trending: steadily worsening Neck pain worst: 8 Neck pain average: 5 Neck pain frequency: 90% Neck resting pain reflief: 20% Neck pain worse: standing, walking Neck pain better: lying down * Hieu Giles MD - 09/23/2022 2:45 PM EDT Chief complaint neck and back HPI: 76-year-old [...] either upper extremity. She does take occasional [id number] ibuprofen with some benefit, she states acetaminophen typically does not help her. She has had no injections in her neck or back. She believes she had an MRI of her cervical spine in [place] but we do not have records or films to review today. She is recently relocated here to [place]. Past medical and surgical history, allergies and medications, family and social history, reviewed in the electronic record and intake. Review of systems as above. Exam alert oriented fluent no distress HEENT normal pulmonary normal effort/rate cardiovascular normal perfusion/ G.I. unremarkable habitus spine no obvious or palpable defect, uncomfortable cervical rotation and lumbar extension range of motion musculoskeletal normal bilateral major joint neurologic nonfocal mobility exposed skin normal no edema bilateral I directly reviewed recent spine studies spine clinic imaging and records reviewed September 07, 2022 cervical MRI reviewed with multilevel spondylosis Impressions/recommendations: 76-year-old woman with chronic axial spine pain, facet syndrome, cervical and referred headache, lumbar, all on the left side. She has done extensive physical therapy and still does it. She has triedanti-inflammatories. Pain is still significant. The neck and head is the worst. Will try left side C2/3 and see 4/5 medial branch block next to see if radiofrequency ablation could be helpful. Depending on progress will consider similar pathway from lumbar spine when appropriate. The neck is definitely the worst pain. JCK documented in this encounter Plan of Treatment Upcoming Encounters Date Type Department Care Team (Late st Contact Info) Description 01/04/2024 11:20 AM EDT Procedure Visit [facility] 550 [facility] Medical Office [place] Floor 9 [place] [address] Katie Jones AUD 01/06/2024 2:00 PM EDT Appointment [facility] [address] [place] [address] 01/09/2024 2:00 PM EDT Office Visit [facility] 550 [facility] Medical Office [place] 19th Floor [address] [place] [address] Radha Coker MD 550 [place] [address] 01/10/2024 8:30 AM EDT Office Visit [facility] - Primary Care [address] [place] [address] Vandana, Sydnee Ndiaye DO [address] [facility] [place] [address] 01/11/2024 10:00 AM EDT Office [facility] - ENT & Facial Plastic Surgery [address] [place] [address] Kat Rico, PATTIE [address] [place] [address] 01/20/2024 11:45 AM EDT Clinical Support [facility] [address] [place] [address] Maria Eugenia Lucero, ORA [address] [place] [address] 01/30/2024 8:40 AM EST Office Visit [facility] [address] [facility] Medical Office [place] 15th Floor [address] [place] [address] Jose Monique MD 550 [facility] [place] 15th Floor, [address] [place] [address] 02/27/2024 12:50 PM EST Office Visit [facility] [address] 4 [address] [place] [address] Kellie Bowser, OD [address], [address] [facility] [place] [address] 06/19/2024 11:30 AM EDT Appointment [facility] [address] [place] [address] 06/19/2024 1:00 PM EDT Appointment [facility] [address] [place] [address] 08/21/2024 1:40 PM EDT Office Visit [facility] at [address] [facility] [address] [place] [address] NE 3rd [place] [address] Satya Wright PA [address] [facility] [place] 3rd [place] [address] 09/05/2024 10:30 AM EDT Office Visit [facility] [address] [place] [address] Tatiana Dominguez, KASH [address] [place] [address] documented as of this encounter Visit Diagnoses Diagnosis Cervical radiculopathy- Primary Brachial neuritis or radiculitis nos Cervical spondylosis Cervical spondylosis without myelopathy Lumbar spondylosis Lumbosacral spondylosis without myelopathy documented in this encounter Additional Health Concerns Assessment Noted Time A fall risk assessment has been complete d for the patient 09/21/2022 10:24 AM EDT documented as of this encounter
--- OUTSIDE RECORDS SUMMARY | 2023-11-14 01:04 | XMS_ITS | Encounter Summary ---
Author Organization [facility] Address [address] [place], [place], [place] [address] Phone Care Team Providers Care Health Insurance Specialist Name Role Phone Unavailable Primary Care Provider Unavailabl e Encounter Details Date Type Department Care Team (Late st Contact Info) Description 09/28/2022 Orders Only [facility] - Primary Care [address] [place] [address] Style, Sydnee Ndiaye, DO [address] [facility] [place] [place] [address] Social History Tobacco Use Types Packs/Day Years [...] PM EDT documented as of this encounter Miscellaneous Notes * Addendum Note - Kaitlynn Ruiz MD - 09/28/2022 8:20 AM EDTAddended by: KAITLYNN RUIZ on: 09/29/2022 11:26 AM Modules accepted: Orders documented in this encounter Plan of Treatment Upcoming Encounters Date Type Department Care Team (Late st Contact Info) Description 01/04/2024 11:20 AM EDT Procedure Visit [facility] 550 [facility] Medical Office [place] Floor 9 [place] [address] Katie Jones AUD 01/06/2024 2:00 PM EDT Appointment [facility] [address] [place] [address] 01/09/2024 2:00 PM EDT Office Visit [facility] 550 [facility] Medical Office [place] 19th Floor [address] [place] [address] Radha Coker MD 550 [place] [address] 01/10/2024 8:30 AM EDT Office Visit [facility] - Primary Care [address] [place] [address] Style, Sydnee Ndiaye, DO [address] [facility] [place] [address] 01/11/2024 10:00 AM EDT Office Visit [facility] - ENT & Facial Plastic Surgery [address] [facility] 707 [place] [address] Kat Rico, PATTIE [address] [place] [address] 01/20/2024 11:45 AM EDT Clinical Support [facility] [address] [facility] [place] [address] Maria Eugenia Lucero LAC [address] [place] [address] 01/30/2024 8:40 AM EST Office Visit [facility] [address] [facility] Office [place] 15th Floor [address] [place] [address] Jose Monique MD 550 [facility] Office [place] 15th Floor, [address] [place] [address] 02/27/2024 12:50 PM EST Office Visit [facility] [address] [facility] Floor 4 [address] [place] [address] Kellie Bowser, OD [address] [facility] [address] 4, [address] [facility] [place] [address] 06/19/2024 11:30 AM EDT Appointment [place] [address] [address] 06/19/2024 1:00 PM EDT Appointment [place] [address] [address] 08/21/2024 1:40 PM EDT Office Visit [facility] [address] 3rd [place] [address] Satya Wright PA 15[address] [facility] 3rd [place] [address] 09/05/2024 10:30 AM EDT Office Visit [facility] [address] [place] [address] Tatiana Dominguez, KASH [address] [place] [address] documented as of this encounter Visit Diagnoses Not on filedocumented in this encounter Additional Health Concerns Assessment Noted Time A fall risk assessment has been complete d for the patient 09/21/2022 10:24 AM EDT documented as of this encounter
--- OUTSIDE RECORDS SUMMARY | 2023-11-14 01:04 | XMS_ITS | Encounter Summary ---
Author Organization [facility] Address [address], [place], [place] [address] Phone Care Team Providers Care Dough Mixer Name Role Phone Unavailable Primary Care Provider Unavailabl e Encounter Details Date Type Department Care Team (Late st Contact Info) Description 09/23/2022 Telephone [facility] [address] [facility] [address] [place] [address] Walter Conrad MD [address] [facility] [address] 5, [address] [place] [address] Social History Tobacco Use Types Packs/Day Years [...] encounter Miscellaneous Notes * Telephone Encounter - Jono Valdes - 10/20/2022 1:21 PM EDT Spk to pt and scheduled OV early February @st. camacho * Telephone Encounter - Walter Conrad MD - 09/23/2022 9:09 PM EDT Needs 6 month follow up documented in this encounter Plan of Treatment Upcoming Encounters Date Type Department Care Team (Late st Contact Info) Description 01/04/2024 11:20 AM EDT [facility] [address] [facility] Medical Office [place] Floor 9 [place] [address] Katie Jones AUD 01/06/2024 2:[address] [facility] [address] [place] [address] 01/09/2024 2:00 PM EDT Office [facility] [address] [facility] Office [place] 19th Floor [address] [place] [address] Radha Coker MD 550 [place] [address] 01/10/2024 8:30 AM EDT Office [facility] - Primary Care [address] [place] [address] Vandana, Sydnee Ndiaye, [address] [facility] [place] [address] 01/11/2024 10:00 AM EDT Office Visit [facility] - ENT & Facial Plastic Surgery [address] [facility] [address] [place] [address] Kat Rico, PATTIE [address] [place] [address] 01/20/2024 11:45 AM EDT Clinical Support [place] [facility] [address] [facility] [place] [address] Maria Eugenia Lucero LAC [address] [place] [address] 01/30/2024 8:40 AM EST Office Visit [facility] [address] [facility] Medical Office [place] 15th Floor [address] [place] [address] Jose Monique MD 550 [facility] Office [place] 15th Floor, [address] [place] [address] 02/27/2024 12:50 PM EST Office Visit [facility] [address] [facility] Floor 4 [address] [place] [address] Kellie Bowser, OD [address] [facility] [address], [address] [place] [address] 06/19/2024 11:30 AM EDT Appointment [place] [address] [facility] 120 [place] [address] 06/19/2024 1:00 PM EDT Appointment [place] [address] [place] [address] 08/21/2024 1:40 PM EDT Office Visit [place] [facility] at [address] [facility] 3rd [place] [address] Satya Wright PA [address] [facility] [place] 3rd [place] [address] 09/05/2024 10:30 AM EDT Office Visit [facility] [address] [place] [address] Tatiana Dominguez NP [address] [place] [address] documented as of this encounter Visit Diagnoses Not on filedocumented in this encounter Additional Health Concerns Assessment Noted Time A fall risk assessment has been complete d for the patient 09/21/2022 10:24 AM EDT documented as of this encounter
--- OUTSIDE RECORDS SUMMARY | 2023-11-14 01:04 | XMS_ITS | Encounter Summary ---
Author Organization [facility] Address [address] [facility] , [place], [place] [address] Phone Care Team Providers Care Nurse Anesthetist Name Role Phone Unavailable Primary Care Provider Unavailabl e Reason for Visit * Reason Onset Date Comments Appointment 10/05/2022 Encounter Details Date Type Department Care Team (Late st Contact Info) Description 10/05/2022 Telephone [facility] 136[address] [facility] 1365 [facility] B Floor 1 [place] [address] Todd Chairez MD 1365 [facility] B, FL 1 [place] [address] Appointment Social History Tobacco Use Types Packs/Day [...] encounter Miscellaneous Notes * Telephone Encounter - Jerica Norris - 10/05/2022 12:41 PM EDT APPOINTMENT REQUEST (This is intended for all new or return / appt changes - one in which the Call Center cannot meet the patient's need and on-site team direction is needed) (If not the patient) Caller's Name & Relationship: _ Preferred Phone # for call back: Reason sending to on-site team: Patient is requesting Current Appointment Date/Time: Comments: _ documented in this encounter Plan of Treatment Upcoming Encounters Date Type Department Care Team (Late st Contact Info) Description 01/04/2024 11:20 AM EDT Procedure Visit [facility] [address] [facility] Medical Office [place] Floor 9 [place] [address] Katie Jones AUD 01/06/2024 2:00 PM EDT Appointment [facility] [address] [place] [address] 01/09/2024 2:00 PM EDT Office Visit [facility] 550 [facility] Medical Office [place] 19th Floor [address] [place] [address] Radha Coker MD 550 [place] [address] 01/10/2024 8:30 AM EDT Office Visit [facility] [address] [place] [address] Sydnee Ross, [address] [facility] [place] [address] 01/11/2024 10:00 AM EDT Office Visit [facility] - ENT & Facial Plastic Surgery [address] [facility] [address] [place], [place] [address] Kat Rico PA 13[address] [facility] [place] [address] 01/20/2024 11:45 AM EDT Clinical Support [facility] [address] [place] [address] Maria Eugenia Lucero LAC [address] [place] [address] 01/30/2024 8:40 AM EST Office Visit [facility] [address] [facility] [place] 15th Floor [address] [place] [address] Jose Monique MD 550 [facility] Office [place] 15th Floor, [address] [place] [address] 02/27/2024 12:50 PM EST Office Visit [facility] [address] [facility] Floor 4 [address] [place] [phone] Kellie Bowser, OD [address] [facility] Fl 4, [address] [facility] [address] 06/19/2024 11:30 AM EDT Appointment [place] [address] [address] 06/19/2024 1:00 PM EDT Appointment [place] [address] [place] [address] 08/21/2024 1:40 PM EDT Office Visit [facility] at [address] 15[address] [facility] 3rd [place] [address] Satya Wright PA [address] [facility] [address] 3rd [place] [address] 09/05/2024 10:30 AM EDT Office Visit [facility] [address] [place] [address] Tatiana Dominguez NP [address] [place], [place] [id number] documented as of this encounter Visit Diagnoses Not on filedocumented in this encounter Additional Health Concerns Assessment Noted Time A fall risk assessment has been complete d for the patient 09/21/2022 10:24 AM EDT documented as of this encounter
--- OUTSIDE RECORDS SUMMARY | 2023-11-14 01:04 | XMS_ITS | Encounter Summary ---
Author Organization [facility] Address [address] [place], [place], [place] [address] Phone Care Team Providers Care Research Instructor Name Role Phone Unavailable Primary Care Provider Unavailabl e Encounter Details Date Type Department Care Team (Late st Contact Info) Description 11/24/2022 Telephone [facility] 550 [facility] Medical Office [place] 19th Floor [address] [place] [address] Epifanio Campoverde MD 550 [facility] [place] [address] Social History Tobacco Use Types Packs/Day Years [...] encounter Miscellaneous Notes * Telephone Encounter - Juan F Enamorado - 11/24/2022 3:07 PM EDT LVM FOR PT TO CONTACT CALL CENTER AND RESCHEDULE APPT THAT WAS CANCELLED WITH DR. CAMPOVERDE documented in this encounter Plan of Treatment Upcoming Encounters Date Type Department Care Team (Late st Contact Info) Description 01/04/2024 11:20 AM EDT Procedure Visit [facility] 550 [facility] Medical Office [place] Floor 9 [place] [address] Katie Jones AUD 01/06/2024 2:00 PM EDT Appointment [address] [place] [address] 01/09/2024 2:00 PM EDT Office Visit [facility] 550 [facility] Medical Office [place] 19th Floor [address] [place] [address] Radha Coker MD 550 [place] [address] 01/10/2024 8:30 AM EDT Office Visit [facility] [address] [place] [address] Style, Sydnee Ndiaye, [address] [facility] [place] [address] 01/11/2024 10:00 AM EDT Office Visit [facility] & [facility]ial Plastic Surgery [address] [facility] [address] [place] [address] Kat Rico, PATTIE [address] [place] [address] 01/20/2024 11:45 AM EDT Clinical Support [facility] [address] [facility] [place] [address] Maria Eugenia Lucero, ORA [address] [place] [address] 01/30/2024 8:40 AM EST Office Visit [facility] [place] 15th Floor [address] [place] [address] Jose Monique MD [address] [facility] Medical Office [place] 15th Floor, [address] [place] [address] 02/27/2024 12:50 PM EST Office Visit [facility] [address] [facility] [facility] [address] Floor 4 [address] [place] [address] Kellie Bowser, MILAN [address] [facility] Fl 4, [address] [facility] [place] [address] 06/19/2024 11:30 AM EDT Appointment [place] [address] [address] 06/19/2024 1:00 PM EDT Appointment [place] [address] [facility] 120 [place] [address] 08/21/2024 1:40 PM EDT Office Visit [facility] at [address] 3rd [place] [address] Satya Wright PA 1525 [facility] 3rd [place] [address] 09/05/2024 10:30 AM EDT Office Visit [facility] [address] [address] Tatiana Dominguez, KASH [address] [place] [address] documented as of this encounter Visit Diagnoses Not on filedocumented in this encounter Additional Health Concerns Assessment Noted Time A fall risk assessment has been complete d for the patient 09/21/2022 10:24 AM EDT documented as of this encounter
--- OUTSIDE RECORDS SUMMARY | 2023-11-14 01:04 | XMS_ITS | Encounter Summary ---
Author Organization [facility] Address [address] [facility] , [place], [place] [address] Phone Care Team Providers Care Measurement Supervisor Name Role Phone Unavailable Primary Care Provider Unavailabl e Reason for Visit * Reason Onset Date Comments Appointment 10/05/2022 Encounter Details Date Type Department Care Team (Late st Contact Info) Description 10/05/2022 Telephone [facility] [facility] 136[address] [facility] B Floor 1 [place] [address] Todd Chairez MD 1365 [facility] B, FL 1 [place] [address] Appointment Social History Tobacco Use Types Packs/Day [...] Telephone Encounter - Jerica Norris - 10/05/2022 12:46 PM EDT APPOINTMENT REQUEST (This is intended for all new or return / appt changes - one in which the Call Center cannot meet the patient's need and on-site team direction is needed) (If not the patient) Caller's Name & Relationship: _ Preferred Phone # for call back: [phone] Reason sending to on-site team: patient is requesting a call back to schedule her EUS for July 2023 Current Appointment Date/Time: Comments: _ n/a documented in this encounter Plan of Treatment Upcoming Encounters Date Type Department Care Team (Late st Contact Info) Description 01/04/2024 11:20 AM EDT Procedure Visit [facility] 550 [facility] Medical Office [place] Floor 9 [place] [address] Katie Jones, LISA 01/06/2024 2:00 PM EDT Appointment [facility] [address] [place] [address] 01/09/2024 2:00 PM EDT Office Visit [facility] 550 [facility] Medical Office [place] 19th Floor [address] [place] [address] Radha Coker MD 550 [place] [address] 01/10/2024 8:30 AM EDT Office Visit [facility] Care [address] [place] [address] Vandana, Sydnee Ndiaye DO [address] [facility] [place] [address] 01/11/2024 10:00 AM EDT Office Visit [facility] - ENT & Facial Plastic Surgery [address] [place] [address] Kat Rico PA [address] [place] [address] 01/20/2024 11:45 AM EDT Clinical Support [facility] [address] [place] [address] Maria Eugenia Lucero, ORA [address] [place] [address] 01/30/2024 8:40 AM EST Office Visit [facility] [place] 15th Floor [address] [place] [address] Jose Monique MD [address] [facility] Office [place] 15th Floor, [address] [place] [address] 02/27/2024 12:50 PM EST Office Visit [facility] [address] [facility] [address] Floor 4 [address] [place] [address] Kellie Bowser, OD [address] [facility] [address] Fl 4, [address] [facility] [place] [address] 06/19/2024 11:30 AM EDT Appointment [place] [address] [facility] 120 [place] [address] 06/19/2024 1:00 PM EDT Appointment [place] [address] [facility] 120 [place] [address] 08/21/2024 1:40 PM EDT Office Visit [facility] at [address] [facility] NE 3rd [place] [address] Satya Wright PA 15[address] [facility] 3rd [place] [address] 09/05/2024 10:30 AM EDT Office Visit [facility] [address] [place] [address] Tatiana Dominguez, KASH [address] [place], [place] [address] documented as of this encounter Visit Diagnoses Not on filedocumented in this encounter Additional Health Concerns Assessment Noted Time A fall risk assessment has been complete d for the patient 09/21/2022 10:24 AM EDT documented as of this encounter
--- OUTSIDE RECORDS SUMMARY | 2023-11-14 01:04 | XMS_ITS | Encounter Summary ---
Author Organization [facility] Address [address] [place], [place], [place] [address] Phone Care Team Providers Care Dry Starch Supervisor Name Role Phone Unavailable Primary Care Provider Unavailabl e Reason for Referral * Medications - Closed Specialty Diagnoses / Procedures Referred By Farrah shook Referred To Contact Sydnee Ross DO [address] [place] [address] Referral ID Status Reason Start Date Expiration Date Visits Re quested Visits Authorized [id number] Closed 1 1 Reason for Visit * Reason Onset Date Comments requesting prescription for RCV vaccine. 023 Encounter Details Date Type Department Care Team ([facility] Contact Info) Description 12/16/2022 Telephone [facility] [address] [facility] 110 [place] [address] Sydnee Ross DO [address] [place] [address] requesting prescription for RCV vaccine. Social History Tobacco Use Types Packs/Day Years [...] encounter Miscellaneous Notes * Telephone Encounter - Alessandra Platt - 12/16/2022 10:29 AM EDT Patient that she and Dr. Ross have discussed her RCV Vaccine. Please have pcp call in Prescriptionfor the RCV Vaccine to [facility]/ on file. Pharmacy ph# [phone] documented in this encounter Plan of Treatment Upcoming Encounters Date Type Department Care Team (Late st Contact Info) Description 01/04/2024 11:20 AM EDT Procedure Visit [facility] [address] [facility] Medical Office [place] Floor 9 [place] [address] Katie oJnes AUD 01/06/2024 2:00 PM EDT Appointment [facility] [address] [place] [address] 01/09/2024 2:00 PM EDT Office Visit [facility] 550 [facility] Office [place] 19th Floor [address] [place] [address] Radha Coker MD 550 [place] [address] 01/10/2024 8:30 AM EDT Office Visit [facility] Primary Care [address] [place] [address] Sydnee Ross, [address] [facility] [place] [address] 01/11/2024 10:00 AM EDT Office Visit [facility] - [facility]NT [facility] Facial Plastic Surgery [address] [place] [address] Kat Rico PA [address] [address] 01/20/2024 11:45 AM EDT Clinical Support [facility] 5673 [place] [address] Maria Eugenia Lucero, LAC [address] [place] [address] 01/30/2024 8:40 AM EST Office Visit [facility] Medical Office [place] 15th Floor [address] [place] [address] Jose Monique MD 550 [facility] [place] 15th Floor, [address] [place] [address] 02/27/2024 12:50 PM EST Office Visit [facility] [address] [facility] Floor 4 [address] [place] [address] Kellie Bowser, OD [address] [facility] Fl 4, [address] [facility] [place] [address] 06/19/2024 11:30 AM EDT Appointment [facility] [address] [place] [address] 06/19/2024 1:00 PM EDT Appointment [facility] [address] [place] [address] 08/21/2024 1:40 PM EDT Office Visit [facility] at 1525 [facility] 15[address] [facility] NE 3rd Floor [place], [place] [address] Satya Wright PA 1525 [facility] 3rd [place] [address] 09/05/2024 10:30 AM EDT Office Visit [facility] [address] [address] Tatiana Dominguez NP [address] [place] [address] documented as of this encounter Visit Diagnoses Not on filedocumented in this encounter Additional Health Concerns Assessment Noted Time A fall risk assessment has been complete d for the patient 09/21/2022 10:24 AM EDT documented as of this encounter
--- OUTSIDE RECORDS SUMMARY | 2023-11-14 01:04 | XMS_ITS | Encounter Summary ---
Author Organization [facility] Address [address] [place] [address], [place] [address] Phone Care Team Providers Care Invertebrate Paleontologist Name Role Phone Unavailable Primary Care Provider Unavailabl e Reason for Visit * Auth/Cert (Routine) Specialty Diagnoses / Procedures Referred By Farrah shook Referred To Contact Diagnoses Spondylosis without myelopathy or radiculopathy, cervical region M47.812 CPT 71954, 23890 MEDICARE Procedures AK NJX DX/THER AGT PVRT FACET JT CRV/THRC 1 LEVEL AK NJX DX/THER AGT PVRT FACET JT CRV/THRC 2ND LEVEL Hieu Giles MD [address] [place] [address] [facility] [place] [address] Referral ID Status Reason Start Date Expiration Date Visits Re quested Visits Authorized [id number] 10/06/2022 1 1 Encounter Details Date Type Department Care Team (Late st Contact Info) Description 10/25/2022 10:00 AM EDT - 10/25/2022 10:15 AM EDT Surgery [facility] - [address] [address] Hieu Giles MD [address] [place] [address] [facility] [place] [address] LEFT C2-3,C4-5 MBB #1 [02936 (CPT??)] Social History Tobacco Use Types Packs/Day Years [...] Sign Reading Time Taken Comments Blood Pressure 139/77 10/25/2022 10:05 AM EDT Pulse 58 10/25/2022 10:05 AM EDT Temperature 36 ??C (96.8 ??F) 10/25/2022 9:13 AM EDT Respiratory Rate 15 10/25/2022 10:05 AM EDT Oxygen Saturation 98% 10/25/2022 10:05 AM EDT Inhaled Oxygen Concentration - - Weight 66.7 kg (147 lb) 10/25/2022 9:13 AM EDT Height 176.5 cm (5' 9.5) 10/25/2022 9:13 AM EDT Body Mass Index 21.4 10/25/2022 9:13 AM EDT documented in this encounter Discharge Instructions * Discharge Instructions* Rylee Hickey N - 10/25/2022 9:13 AM EDT Spinal [...] meal to help you avoid nausea. FOR [facility] APPOINTMENTS: [phone] If there are any emergency issues after hours, the physician who performed your injection can be paged through the [place] slitter scorer cut off operator at [phone] documented in this encounter Medications at Time of Discharge Medication Sig Dispensed Refills Start Date End Date ascorbic vvjs-zqxynfsb-uan (Emergen-C) 1,000 mg powder effervescent in packet Take by mouth once daily. 03/28/2019 ibuprofen 200 mg tablet Take by mouth if needed. PRN 03/28/2021 multivit with minerals/lutein (MULTIVITAMIN 50 PLUS ORAL) Take by mouth once daily. 03/28/2022 omega 2-zmb-vnk-fish oil 1,000 mg (120 mg-180 mg) capsule [...] PLAN LEFT C2/3 C4/5 FACET LEVEL MBB JCAndrey documented in this encounter Miscellaneous Notes * Perioperative Nursing Note - Ori Castillo - 10/25/2022 10:15 AM EDT Patient A+O [...] AM EDT Operative Note Date: 10/25/2022 Location: [facility] OR Name: Gianna Infante, : 1945, [facility] Procedure Note LEFT C2/3, C4/5 [...] 10.25.2022. Arrival time (0900) and location [address] [place] [address] reviewed with patient. Optometric Technician instructions(Must accompany patient for check in and [...] changes within the past 3 months. Your electric pile driver operator must remain there the entire time of [...] Description 01/04/2024 11:20 AM EDT Procedure Visit [facility] 550 [facility] Medical Office [place] Floor 9 [place] [address] Katie Jones AUD 01/06/2024 2:00 PM EDT Appointment [facility] [address] [place] [address] 01/09/2024 2:00 PM EDT Office Visit [facility] 550 [facility] Medical Office [place] 19th Floor [address] [place] [address] Radha Coker MD 550 [place] [address] 01/10/2024 8:30 AM EDT Office Visit [facility] [address] [place] [address] Vandana, Sydnee Ndiaye DO [address] [facility] [place] [address] 01/11/2024 10:00 AM EDT Office Visit [facility] - ENT & Facial Plastic Surgery [address] [facility] 707 [place] [address] Kat Rico, PA [address] [place] [address] 01/20/2024 11:45 AM EDT Clinical Support [facility] [address] [facility] [place] [address] Maria Eugenia Lucero, ORA [address] [place] [address] 01/30/2024 8:40 AM EST Office Visit [facility] 550 [facility] Medical Office [place] 15th Floor [address] [place] [address] Jose Monique MD [address] Medical Office [place] 15th Floor, [address] [place] [address] 02/27/2024 12:50 PM EST Office Visit [facility] [address] [facility] [facility] [address] Floor 4 [address] [place] [address] Kellie Bowser, OD [address] [facility] [address] 4, [address] [facility] [place] [address] 06/19/2024 11:30 AM EDT Appointment [place] [address] [facility] 120 [place] [address] 06/19/2024 1:00 PM EDT Appointment [place] [address] [facility] 120 [place] [address] 08/21/2024 1:40 PM EDT Office Visit [facility] at [address] [place] [address] 3rd [place] [address] Satya Wright PA 1525 [facility] 3rd [place] [address] 09/05/2024 10:30 AM EDT Office Visit [facility] [address] [place] [address] Tatiana Dominguez, SUPPLY CHAIN PROGRAM MANAGER [address] [place] [address] [place] [address] documented as of this encounter Procedures Procedure Name Priority Date/Time Associated Diagnosis Comments AK NJX DX/THER AGT PVRT FACET JT CRV/THRC 1 LEVEL 10/25/2022 9:31 AM EDT Spondylosis without myelopathy or radiculopathy, cervical region documented in this encounter Visit Diagnoses Diagnosis Spondylosis without myelopathy or radiculopathy, cervical region documented in this encounter Administered Medications Inactive Administered Medications - up to 3 most recent administrations Medication Order MAR Action Action Date Dose Rate Site BUPivacaine HCl (Marcaine) 0.25 % (2.5 mg/mL) injection As needed, Starting on 10/25/22 at 0936, Intraprocedure Given 10/25/2022 9:36 AM EDT 3 mL documented in this encounter Additional Health Concerns Assessment Noted Time A fall risk assessment has been complete d for the patient 09/21/2022 10:24 AM EDT documented as of this encounter
--- OUTSIDE RECORDS SUMMARY | 2023-11-14 01:04 | XMS_ITS | Encounter Summary ---
Author Organization [facility] Address [address], [address], [place] [address] Phone Care Team Providers Care Senior Oracle Database Administrator Name Role Phone Unavailable Primary Care Provider Unavailabl e Encounter Details Date Type Department Care Team (Late Contact Info) Description 11/25/2022 Telephone [facility] at [address] Floor 1 [place] [address] Rosy Arthur Social History Tobacco Use Types Packs/Day Years [...] Miscellaneous Notes * Telephone Encounter - Rosy Arthur - 11/25/2022 11:28 AM EDT LM advising patient that MRI is not needed at this time. documented in this encounter Plan of Treatment Upcoming Encounters Date Type Department Care Team (Late st Contact Info) Description 01/04/2024 11:20 AM EDT Procedure Visit [facility] [address] [facility] [address] [place] Floor 9 [place] [address] Katie Jones AUD 01/06/2024 2:00 PM EDT Appointment [facility] [address] [place] [address] 01/09/2024 2:00 PM EDT Office Visit [facility] [address] [facility] [place] 19th Floor [address] [place] [address] Radha Coker MD [address] [place] [address] 01/10/2024 8:30 AM EDT Office Visit [facility] - Primary [facility] [address] [place] [address] Vandana, Sydnee Ndiaye DO [address] [facility] [place] [address] 01/11/2024 10:00 AM EDT Office Visit [facility] - ENT & Facial Plastic Surgery [address] [facility] [address] [place] [address] Kat Rico, PA [address] [place] [address] 01/20/2024 11:45 AM EDT Clinical Support [facility] at [facility] [address] [place] [address] MariaE ugenia Lucero LAC [address] [place] [address] 01/30/2024 8:40 AM EST Office Visit [facility] [address] [facility] [place] 15th Floor [address] [place] [address] Jose Monique MD [address] Medical Office [place] 15th Floor, [address] [place] [address] 02/27/2024 12:50 PM EST Office Visit [facility] [address] 4 [address] [place] [address] Kellie Bowser, OD [address], [address] [facility] [place] [address] 06/19/2024 11:30 AM EDT Appointment [place] [address] [facility] [address] [place] [address] 06/19/2024 1:00 PM EDT Appointment [place] [address] [facility] 120 [place] [address] 08/21/2024 1:40 PM EDT Office Visit [facility] at [facility] [address] 3rd [place] [address] Satya Wright PA [address] 3rd [place] [address] 09/05/2024 10:30 AM EDT Office Visit [facility] [address] [place] [address] Tatiana Dominguez, COMPOSITE SCIENCE TEACHER [address] [place] [address] documented as of this encounter Visit Diagnoses Not on filedocumented in this encounter Additional Health Concerns Assessment Noted Time A fall risk assessment has been complete d for the patient 09/21/2022 10:24 AM EDT documented as of this encounter
--- OUTSIDE RECORDS SUMMARY | 2023-11-14 01:04 | XMS_ITS | Encounter Summary ---
Author Organization [facility] Address [address] [place] [address], [place] [address] Phone Care Team Providers Care Visual Journalist Name Role Phone Unavailable Primary Care Provider Unavailabl e Reason for Visit * Reason Onset Date Comments admin concern 12/28/2022 Encounter Details Date Type Department Care Team (Late st Contact Info) Description 12/28/2022 Telephone [facility] [address] [place] [address] Earl Flynn MD [address] [facility] [place] [address] admin concern Social History Tobacco Use Types Packs/Day Years [...] and Family Not on file 12/29/2022 Attends Bahai Services Not on file 12/29 Active Member [...] Recorded Patient Health Questionnaire-2 Score 1 09/21/2022 [facility] Occupat ional Health - Occupational Stress [...] in a nursing home (including now)? No 12/29/2022 Sex and [...] encounter Miscellaneous Notes * Telephone Encounter - Mukul Snyder - 12/28/2022 12:09 PM EDT PCC called pt and stated that she needs to continue to fu with non op. Dr. Giles is scheduled far out. Attempted to do a one time switch to [facility]. Pt was not interested. Scheduled an appt in Mar with Dr. Giles. MUKUL Pryor * Telephone Encounter - Paola Moses - 12/28/2022 9:21 AM EDT CLINICAL CONCERN Concern / Question: Pt states she would like to schedule a telemedicine appt with Dr. Knight. Pt stated she would like to be seen by Dr. Knight for a f/u for her neck. Dr. Knight did refer the pt to but pt states she would like to keep . Call back number: [phone] documented in this encounter Plan of Treatment Upcoming Encounters Date Type Department Care Team (Late st Contact Info) Description 01/04/2024 11:20 AM EDT Procedure Visit [facility] [address] [facility] [place] Floor 9 [place] [address] Katie Jones AUD 01/06/2024 2:00 PM EDT Appointment [facility] [address] [place] [address] 01/09/2024 2:00 PM EDT Office Visit [facility] [address] [facility] Medical Office [place] 19th Floor [address] [place] [address] Radha Coker MD 550 [place] [address] 01/10/2024 8:30 AM EDT Office Visit [facility] Care [address] [place] [address] Vandana, Sydnee Ndiaye, DO [address] [facility] [place] [address] 01/11/2024 10:00 AM EDT Office Visit [facility] - ENT & Facial Plastic Surgery [address] [place] [address] Kat Rico, PATTIE [address] [place] [address] 01/20/2024 11:45 AM EDT Clinical Support [facility] at [facility] [address] [place] [address] Maria Eugenia Lucero, ORA [address] [place] [address] 01/30/2024 8:40 AM EST Office Visit [facility] [address] [facility] Medical Office [place] 15th Floor [address] [place] [address] Jose Monique MD [address] [facility] [place] 15th Floor, [address] [place] [address] 02/27/2024 12:50 PM EST Office Visit [facility] [address] 4 [address] [place] [address] Kellie Bowser, OD [address], [address] [facility] [place] [address] 06/19/2024 11:30 AM EDT Appointment [facility] [address] [place] [address] 06/19/2024 1:00 PM EDT Appointment [facility] [address] [place] [address] 08/21/2024 1:40 PM EDT Office Visit [facility] at [address] [facility] [address] 3rd [place] [address] Satya Wright PA [address] 3rd [place] [address] 09/05/2024 10:30 AM EDT Office Visit [facility] [address] [place] [address] Tatiana Dominguez, KASH [address] [place] [address] documented as of this encounter Visit Diagnoses Not on filedocumented in this encounter Additional Health Concerns Assessment Noted Time A fall risk assessment has been complete d for the patient 09/21/2022 10:24 AM EDT documented as of this encounter
--- OUTSIDE RECORDS SUMMARY | 2023-11-14 01:04 | XMS_ITS | Encounter Summary ---
Author Organization [facility] Address [address], [place] [address] Phone Care Team Providers Care Lead Mobile Developer Name Role Phone Unavailable Primary Care Provider Unavailabl e Reason for Visit * Reason Comments Osteoporosis Encounter Details Date Type Department Care Team ([facility] st Contact Info) Description 12/29/2022 10:00 AM EDT Office Visit [facility] [address] [facility] Medical Office [address] 19th Floor [address] [place] [address] Radha Coker MD [address] [place] [address] Osteoporosis, unspecified osteoporosis type, unspecified pathological fracture presence (Primary Dx); Abnormal thyroid function test Social History Tobacco Use Types Packs/Day [...] and Family Not on file 12/29/2022 Attends Orthodox Services Not on file 12/29 Active Member [...] Recorded Patient Health Questionnaire-2 Score 1 09/21/2022 [facility] ional [facility] - [...] slept in a custodial (including now)? No 12/29/2022 Sex and Gender [...] Sign Reading Time Taken Comments Blood Pressure 144/73 12/29/2022 9:55 AM EDT Pulse 60 12/29/2022 9:55 AM EDT Temperature 36.5 ??C (97.7 ??F) 12/29/2022 9:55 AM ED T Respiratory Rate 20 12/29/2022 9:55 AM EDT Oxygen Saturation - - Inhaled Oxygen Concentration - - Weight 69.1 kg (152 lb 6.4 oz) 12/29/2022 9:55 A M EDT Height 175.3 cm (5' 9) 12/29/2022 9:55 AM EDT Body Mass Index 22.51 12/29/2022 9:55 AM EDT documented in this encounter Patient Instructions * Patient Instructions* Radha Coker MD - 12/29/2022 10:00 AM EDT Radha Coker MD, MS Assembler [employer] [facility] Endocrinology, Diabetes and Metabolism Office phone: [phone] Office fax: [phone] documented in this encounter Progress Notes * Radha Coker MD - 12/29/2022 10:00 AM EDT [facility] Note History of Present Illness Gianna Infante is a 77 y.o. female who is here for Osteoporosis. Follow up Osteoporosis HPI Gianna Infante is a 76 y.o. female with PMH of osteoporosis with prior fracture, hyperlipidemia, hypertension, GERD, here for osteoporosis. Previously seen at [facility] Dr. Alvarez 05/11/2021: telemedicine visit seen for osteoporosis andT12 compression fracture. Fracture occurred with minimal pulling movement. Has previously been treated with 4 years of alendronate, fracture occurred and then she switched to Forteo and has completed2 years 9540-0733 Last BMD by DXA 01/2018 in [facility]. LS (L1,L2,L4) -3.0 LFN -1.3 LH -1.5 Drank regular amounts of milk as a child. Current calcium intake: Dietary: yogurt, broccoli, leafy green vegetables, almond milk Supplements: MVI, K and vitamin D in calcium Denies history of malabsortive disorders, denies diarrhea, constipation or food intolerance. No history of GI surgery. Denies history of eating disorder, rheumatoid arthritis, immobilization or hematologic disorders. Fractures: T11, T12, Wrist fracture Height loss: yes Fall in 2012, broken wrist cracked patella tripped over sidewalk in [place] and concussion Denies bone pain and back pain. Exercise: very active, walks every other day 2 miles (helps with anxiety), PT for arthritis Age at menarche: 14 years old Menses: 14 regular Menopause age: 50s History of hormone replacement therapy: yes Denies history of kidney stones, vitamin D deficiency, hypercalcemia. Denies family history of osteoporosis + family history hip fractures. No history of smoking, excessive alcohol, physical inactivity, or poor nutrition. Denies taking drugs that are associated with increased risk of osteoporosis (heparin, glucocorticoids, thyroxine suppressive therapy, anticonvulsant drugs, cyclosporine, chemotherapy, gonadotropin-releasing hormone analogs). Proton pump inhibitors: omperazole ; Duration of therapy: last 2 months Dental issues: Just had tooth extraction and implant. And is having referral to perioodontist. Update: Here for follow up S/p reclast last year 05/2022 No falls/fx On calcium/vit d Review of Systems See HPI Problem List Patient Active Problem List Diagnosis Allergic to bees History of basal cell carcinoma (BCC) Osteoporosis History of colon polyps Age-related cataract of both eyes Arthritis of both hands Insomnia Macular pucker, left eye 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 Situational mixed anxiety and depressive disorder [...] lesion Diverticulosis Lung nodule Low back pain Medications: Current Outpatient Medications Medication Instructions ascorbic [id number] (Emergen-C) 1,000 mg powder effervescent in packet No dose, route, or frequency recorded. atorvastatin (LIPITOR) 40 mg, oral, Daily clotrimazole (Lotrimin) 1 % cream No dose, route, or frequency recorded. EPINEPHrine (EPIPEN) 0.3 mg, injection, As needed, Call 911 after use. ibuprofen 200 mg tablet No dose, route, or frequency recorded. magnesium 250 mg tablet No dose, route, or frequency recorded. melatonin 0.5 mg tablet split tablet No dose, route, or frequency recorded. meloxicam (MOBIC) 7.5 mg, oral, Daily multivit with minerals/lutein (MULTIVITAMIN 50 PLUS ORAL) No dose, route, or frequency recorded. omega 1-uqe-shl-fish oil 1,000 mg (120 mg-180 mg) capsule No dose, route, or frequency recorded. polyvinyl alcohol-povidon,PF, (Refresh Classic, PF,) 1.4-0.6 % eye drops in a dropperette No dose, route, or frequency recorded. zoledronic acid/mannitol-water (RECLAST IV) intravenous Allergies: Allergies Allergen Reactions Bee Venom Protein (Honey Bee) Anaphylaxis Fluoxetine Other reaction(s): Other (See Comments), Other (See Comments) paranoid Paranoid Paranoid Estrogens, Conjugated Hymenoptera Allergenic Extract Serotonin Hallucinations Wasp Venom Trazodone Anxiety Immunizations: Immunization History Administered Date(s) Administered Influenza, Split (incl. purified surface antigen) 01/19/1993, 01/21/1994, 01/04/1995, 01/14/1996, 01/30/1997, 01/07/1998, 02/09/2001 Influenza, Unspecified 11/26/2014 Influenza, seasonal, injectable 01/25/2007, 01/16/2008, 01/16/2009, 01/09/2010, 01/25/2011 Influenza, seasonal, injectable, preservative free 01/24/2012, 01/01/2013, 03/15/2014 MMR 10/31/1991 Moderna SARS-CoV-2 Vaccination 01/17/2021, 07/16/2021 Novel [id number] 03/25/2009, 03/25/2009 Pneumococcal Polysaccharide PPV23 01/25/2011 TD (adult), 2 Lf tetanus toxoid, preservative free, adsorbed 07/27/2007 Tdap 02/13/2013 Ellis, live 03/27/2012 Family and Social History family history includes Alcohol abuse in her mother; Arthritis in her mother; Cataracts in her mother; Depression in her mother; Early natural in her father; Heart attack in her father; Heart disease in her father; Hip fracture in her mother; Hypertension in her father; Vision loss in her father and mother. reports that she has never smoked. She has never used smokeless tobacco. She reports current alcohol use of about 4.0 standard drinks of alcohol per week. She reports that she does not use drugs. Physical Exam Vitals: BP 144/73 (BP Location: Left arm, Patient Position: Sitting, BP Cuff Size: Adult) Pulse 60 Temp 36.5 ??C (97.7 ??F) (Temporal) Resp 20 Ht 1.753 m (5' 9) Wt 69.1 kg (152 lb 6.4 oz) BMI 22.51 kg/m?? Weight: Most Recent Weight Wt 69.1 kg (152 lb 6.4 oz) NAD No masses noted in neck Unlabored resp No edema Data Reviewed Labs/Imaging: Reviewed the below Chemistry Lab Results Component Value Date/Time NA 139 09/21/2022 1142 K 4.3 09/21/2022 1142 CL 102 09/21/2022 1142 CO2 29 09/21/2022 1142 BUN 12 09/21/2022 1142 CREATININE 0.65 09/21/2022 1142 GLU 86 09/21/2022 1142 Lab Results Component Value Date/Time CALCIUM 9.8 09/21/2022 1142 ALKPHOS 44 09/21/2022 1142 AST 31 09/21/2022 1142 ALT 38 09/21/2022 1142 BILITOT 0.6 09/21/2022 1142 Lab Results Component Value Date WBC 5.4 09/21/2022 HGB 14.4 09/21/2022 HCT 44.0 (H) 09/21/2022 MCV 97.8 (H) 09/21/2022 PLT 244 09/21/2022 No results found for: HGBA1C Lab Results Component Value Date CHOL 154 01/01/2022 Lab Results Component Value Date HDL 65 01/01/2022 Lab Results Component Value Date LDLCALC 78 01/01/2022 Lab Results Component Value Date TRIG 56 01/01/2022 No components found for: CHOLHDL No results found for: TSH, U4JATPH, Y4IBPVI, THYROIDAB === 04/01/22 === US THYROID - Impression - Several bilateral thyroid nodules with the largest measuring 1.1 cm within the lower pole left thyroid lobe. These do not meet criteria for FNA at this time. Assessment and Plan 1. Osteoporosis, unspecified osteoporosis type, unspecified pathological fracture presence 2. Abnormal thyroid function test On calcium/vit D Repeat reclast dose due 05/2023, last was 05/2022 Repeat DEXA around 05/2023 She is doing light resistance training Recheck TFTs Follow up 1 yr Radha Coker MD, MS [facility] documented in this encounter Plan of Treatment Upcoming Encounters Date Type Department Care Team (Late st Contact Info) Description 01/04/2024 11:20 AM EDT Procedure Visit [facility] [address] [facility] Medical Office [place] Floor 9 [place] [address] Katie Jones AUD 01/06/2024 2:00 PM EDT Appointment [facility] [address] [place] [address] 01/09/2024 2:00 PM EDT Office Visit [facility] [address] [facility] Medical Office Rule 19th Floor [address] [place] [address] Radha Coker MD 550 [place] [address] 01/10/2024 8:30 AM EDT Office Visit [facility] [address] [place], [place] [address] Vandana, Sydnee Ndiaye, DO [address] [facility] [place] [address] 01/11/2024 10:00 AM EDT Office Visit [facility]ial Plastic Surgery [address] [place] [address] Kat Rico, PATTIE [address] [place] [address] 01/20/2024 11:45 AM EDT Clinical Support [facility] [address] [place] [address] Maria Eugenia Lucero, [facility] [address] [place] [address] 01/30/2024 8:40 AM EST Office Visit [facility] [address] [facility] Medical Office [address] 15th Floor [address] [place] [address] Jose Monique MD 550 [facility] Rule 15th Floor, [address] [place] [address] 02/27/2024 12:50 PM EST Office Visit [facility] [address] [facility] Floor 4 [address] [place] [address] Kellie Bowser, OD [address] [facility] [place] [address] 06/19/2024 11:30 AM EDT Appointment [facility] [address] [facility] [address] [place] [address] 06/19/2024 1:00 PM EDT Appointment [facility] [address] [place] [address] 08/21/2024 1:40 PM EDT Office Visit [facility] at [address] [facility] [address] [address] [address] 3rd [place] [address] Satya Wright PA [address] [facility] [address] 3rd [place] [address] 09/05/2024 10:30 AM EDT Office Visit [facility] [address] [place] [address] Tatiana Dominguez NP [address] [place], [place] [address] documented as of this encounter Results * Thyroxine Free (01/05/2023 3:58 PM EDT) Thyroxine Free 0.84 0.58 - 1.64 ng/dL LAB CHEMISTRY METHOD 01/05/2023 8:17 PM EDT [facility] Comment: Free T4 Expected values [...] MD LAB BLOOD ORDERABLES [facility] [address] [place] [address] * Thyroid Stimulating Hormone (01/05/2023 3:58 PM EDT) Thyroid Stimulating Hormone 1.49 0.45 - 5.33 mcIU/mL LAB CHEMISTRY METHOD 01/05/2023 8:08 PM EDT [facility] Comment: : ? First Trimester: 0.05-3.70 mcIU/mL ? Second Trimester: ?0.31-4.35 mcIU/mL ? Third Trimester: 0.41-5.18 mcIU/mL Blood Venous blood specimen / Unknown Venipuncture / Unknown 01/05/2023 3:58 PM EDT 01/05/2023 3:58 PM EDT Radha Coker MD LAB BLOOD ORDERABLES [facility] [address] [place] [address] * (ABNORMAL) Comprehensive Metabolic Panel (01/05/2023 3:58 PM EDT) Sodium 140 136 - 145 mmol/L LAB CHEMISTRY METHOD 01/05/2023 8:00 PM EDT [facility] Potassium 4.0 3.5 - 5.1 mmol/L LAB CHEMISTRY METHOD 01/05/2023 8:00 PM EDT [facility] Chloride 102 98 - 107 mmol/L LAB CHEMISTRY METHOD 01/05/2023 8:00 PM EDT [facility] Carbon Dioxide Level 31(H) 23 - 29 mmol/L LAB CHEMISTRY METHOD 01/05/2023 8:00 PM EDT [facility] Calcium Level Total 9.7 8.6 - 10.3 mg/dL LAB CHEMISTRY METHOD 01/05/2023 8:00 PM EDT [facility] Blood Urea Nitrogen 19 7 - 25 mg/dL LAB CHEMISTRY METHOD 01/05/2023 8:00 PM EDT [facility] Creatinine 0.54(L) 0.60 - 1.20 mg/dL LAB CHEMISTRY METHOD 01/05/2023 8:00 PM EDT [facility] Glucose 90 70 - 105 mg/dL LAB CHEMISTRY METHOD 01/05/2023 8:00 PM EDT [facility] Comment: Random Glucose* Diabetes is diagnosed at blood glucose of greater than or equal to 200 mg/dL Fasting Glucose* Normal: less than 100 mg/dL Prediabetes: 100 mg/dl to 125 mg/dL Diabetes: 126 mg/dL or higher *ADA guidelines Protein Total 7.2 6.4 - 8.9 gm/dL LAB CHEMISTRY METHOD 01/05/2023 8:00 PM EDT [facility] Albumin Level 4.4 3.5 - 5.7 gm/dL LAB CHEMISTRY METHOD 01/05/2023 8:00 PM EDT [facility] Alkaline Phosphatase 60 34 - 104 unit/L LAB CHEMISTRY METHOD 01/05[facility]2023 [facility] Alanine Aminotransferase 41 7 - 52 unit/L LAB CHEMISTRY METHOD 01/05/2023 8:00 PM [facility] Aspartate Aminotransferase 35 13 - 39 unit/L LAB CHEMISTRY METHOD 01/05/2023 8:00 PM EDT [facility] Total Bilirubin 0.4 0.3 - 1.0 mg/dL LAB CHEMISTRY METHOD 01/05/2023 8:00 PM [facility] Anion Gap 7 2 - 11 mmol/L 01/05/2023 8:00 PM T [facility] Calculated Osmolality 282 275 - 295 mOsm/kg 01/05/2023 8:00 PM [facility] U:C 35(H) 7 - 21 01/05/2023 8:00 PM EDT [facility] Estimated GFR 91 >=60 mL/min/1 .73m2 01/05/2023 8:00 PM [facility] Comment: The eGFR is calculated with [...] 1. Based on review of evidence, the [facility] Clinical Practice [place] made the decision to stop reporting eGFR by race effective 09/03/2020. Blood Venous blood specimen / Unknown Venipuncture / Unknown 01/05/2023 3:58 PM EDT 01/05/2023 3:58 PM EDT Radha Coker MD LAB BLOOD ORDERABLES [facility] [address] [place] [address] documented in this encounter Visit Diagnoses Diagnosis Osteoporosis, unspecified osteoporosis type, unspecified pathological fracture presence- Primary Abnormal thyroid function test Nonspecific abnormal results of thyroid function study documented in this encounter Additional Health Concerns Assessment Noted Time A fall risk assessment has been complete d for the patient 12/29/2022 9:55 AM EDT documented as of this encounter
--- OUTSIDE RECORDS SUMMARY | 2023-11-14 01:04 | XMS_ITS | Encounter Summary ---
Author Organization [facility] Address [address], [address], [place] [address] Phone Care Team Providers Care Chute Tender Name Role Phone Unavailable Primary Care Provider Unavailabl e Encounter Details Date Type Department Care Team (Late Contact Info) Description 09/21/2022 11:40 AM EDT Lab [facility] [address] [facility] [address] [place] [address] Urinary urgency; Memory change Social History Tobacco Use Types [...] suspected to have Coronavirus/COVID-19? No / Unsure 09/21/2022 10:12 AM EDT documented as of this encounter Plan of Treatment Upcoming Encounters Date Type Department Care Team (Late Contact Info) Description 01/04/2024 11:20 AM EDT Procedure Visit [facility] [address] [facility] [place] Floor [address] [place] [address] Katie Jones, LISA 01/06/2024 2:00 PM EDT Appointment [facility] [address] [place] [address] 01/09/2024 2:00 PM EDT Office Visit [facility] [address] [facility] [place] 19th Floor [address] [place] [address] Radha Coker MD [address] [place] [address] 01/10/2024 8:30 AM EDT Office Visit [facility] - Primary [facility] [address] [place] [address] Sydnee Ross, [address] [facility] [place] [address] 01/11/2024 10:00 AM EDT Office Visit [facility] - ENT & Facial Plastic Surgery [address] [place] [address] Kat Rico PA [address] [place] [address] 01/20/2024 11:45 AM EDT Clinical Support [facility] [address] [place] [address] Maria Eugenia Lucero, ORA [address] [place] [address] 01/30/2024 8:40 AM EST Office Visit [facility] [address] [facility] [place] 15th Floor [address] [place] [address] Jose Monique MD 550 [facility] [place] 15th Floor, [address] [place] [address] 02/27/2024 12:50 PM EST Office Visit [facility] [address] 4 [address] [place] [phone] Henrry Maciasbecka Kellie Pedro Luis, OD [address], [address] [facility] [place] [address] 06/19/2024 11:30 AM EDT Appointment [place] [address] [place] [address] 06/19/2024 1:00 PM EDT Appointment [place] [address] [place] [address] 08/21/2024 1:40 PM EDT Office Visit [facility] [address] 3[address] [place] [address] Satya Wright PA [address] [facility] [address] 3rd [place] [address] 09/05/2024 10:30 AM EDT Office Visit [facility] [address] [place] [address] Tatiana Dominguez, KASH [address] [address] documented as of this encounter Procedures Procedure Name Priority Date/Time Associated Diagnosis Comments COMPLETE BLOOD COUNT Routine 09/21/2022 11:42 AM EDT Memory change THYROID STIMULATING HORMONE WITH REFLEX TO FREE THYROXINE Routine 09/21/2022 11:42 AM EDT Memory change URINALYSIS Routine 09/21/2022 11:42 AM EDT Urinary urgency URINALYSIS MICROSCOPIC Routine 11:42 AM EDT Urinary urgency COMPLETE BLOOD COUNT Routine 09/21/2022 11:42 AM EDT Memory change URINE CULTURE Routine 09/21/2022 11:42 AM EDT Urinary urgency VITAMIN B12 LEVEL Routine 09/21/2022 11: 42 AM EDT Memory change COMPREHENSIVE METABOLIC PANEL Routine 09/21/2022 11:42 AM EDT Memory change documented in this encounter Results * (ABNORMAL) Complete Blood Count (09/21/2022 11:42 AM EDT) [facility] White Blood Cell 5.4 4.0 - 10.0 10E3/mcL LAB HEMATOLOGY METHOD 09/21/2022 5:52 PM EDT [facility] Red Blood Cell 4.50 3.93 - 5.22 10E6/mcL LAB HEMATOLOGY METHOD 09/21/2022 5:52 PM EDT [facility] Hemoglobin 14.4 11.4 - 14.4 gm/dL LAB HEMATOLOGY METHOD 09/21/2022 5:52 PM EDT [facility] Hematocrit 44.0(H) 33.3 - 41.4 % LAB HEMATOLOGY METHOD 09/21/2022 5:52 PM EDT [facility] Mean Corpuscular Volume 97.8(H) 79.4 - 94.8 fL LAB HEMATOLOGY METHOD 09/21/2022 5:52 PM EDT [facility] Mean Corpuscular Hemoglobin 32.0 25.6 - 32.2 pg LAB HEMATOLOGY METHOD 09/21/2022 5:52 PM EDT [facility] Mean Corpuscular Hemoglobin Concentration 32.7 30.0 - 36.0 gm/dL LAB HEMATOLOGY METHOD 09/21/2022 5:52 PM EDT [facility] Platelet 244 150 - 400 10E3/mcL LAB HEMATOLOGY METHOD 09/21/2022 5:52 PM EDT [facility] Mean Platelet Volume 9.4 9.4 - 12.3 fL LAB HEMATOLOGY METHOD 09/21/2022 5:52 PM EDT [facility] Red Cell Distribution Width Coefficient of John. 13.3 11.7 - 14.4 % LAB HEMATOLOGY METHOD 09/21/2022 5:52 PM EDT [facility] Red Cell Distribution Width Standard Deviation 47.6(H) 35.1 - 43.9 fL LAB HEMATOLOGY METHOD 09/21/2022 5:52 PM EDT [facility] Auto Nucleated Red Cell Count 0 % LAB HEMATOLOGY METHOD 09/21/2022 5:52 PM EDT [facility] Absolute NRBC 0.0 0.0 - 0.0 10E3/mcL LAB HEMATOLOGY METHOD 09/21/2022 5:52 PM EDT [facility] Blood Venous blood specimen / Unknown Venipuncture / Unknown 09/21/2022 11:42 AM EDT 09/21/2022 11:42 AM EDT Sydnee Zelda Style DO LAB BLOOD ORDERABLE S Performing Organization Address City/[facility] Co de Phone Number [facility] [address] [place] [address] * Thyroid Stimulating Hormone with reflex to Free Thyroxine (09/21/2022 11:42 AM EDT) TSH Reflex Order 1.39 0.45 - 5.33 mcIU/mL LAB CHEMISTRY METHOD 09/21/2022 8:03 PM EDT [facility] Comment: : ? First Trimester: 0.05-3.70 mcIU/mL ? Second Trimester: ?0.31-4.35 mcIU/mL ? Third Trimester: 0.41-5.18 mcIU/mL Blood Venous blood specimen / Unknown Venipuncture / Unknown 09/21/2022 11:42 AM EDT 09/21/2022 11:42 AM EDT Sydnee Zelda Style DO LAB BLOOD ORDERABLE S [facility] [address] [place] [address] * Vitamin B12 Level (09/21/2022 11:42 AM EDT) Vitamin B12 Level 717 180 - 914 pg/mL LAB CHEMISTRY METHOD 09/21/2022 8:12 PM EDT [facility] Comment:Intrinsic factor blo cking antibodies [...] blood specimen / Unknown Venipuncture / Unknown 09/21/2022 11:42 AM EDT 09/21/2022 11:42 AM EDT Sydnee Ndiaye Style DO LAB BLOOD ORDERABLE S Performing Organization Address [facility] Co de Phone Number [facility] [address] [place] [address] * Comprehensive Metabolic Panel (09/21/2022 11:42 AM EDT) Pathologist [facility] Sodium 139 136 - 145 mmol/L LAB CHEMISTRY METHOD 09/21/2022 5:47 PM EDT [facility] Potassium 4.3 3.5 - 5.1 mmol/L LAB CHEMISTRY METHOD 09/21/2022 5:47 PM EDT [facility] Chloride 102 98 - 107 mmol/L LAB CHEMISTRY METHOD 09/21/2022 5:47 PM EDT [facility] Carbon Dioxide Level 29 23 - 29 mmol/L LAB CHEMISTRY METHOD 09/21/2022 5:47 PM EDT [facility] Calcium Level Total 9.8 8.6 - 10.3 mg/dL LAB CHEMISTRY METHOD 09/21/2022 5:47 PM EDT [facility] Blood Urea Nitrogen 12 7 - 25 mg/dL LAB CHEMISTRY METHOD 09/21/2022 5:47 PM EDT [facility] Creatinine 0.65 0.60 - 1.20 mg/dL LAB CHEMISTRY METHOD 09/21/2022 5:47 PM EDT [facility] Glucose 86 70 - 105 mg/dL LAB CHEMISTRY METHOD 09/21/2022 5:47 PM EDT [facility] Comment: Random Glucose* Diabetes is diagnosed at blood glucose of greater than or equal to 200 mg/dL Fasting Glucose* Normal: less than 100 mg/dL Prediabetes: 100 mg/dl to 125 mg/dL Diabetes: 126 mg/dL or higher *ADA guidelines Protein Total 6.9 6.4 - 8.9 gm/dL LAB CHEMISTRY METHOD 09/21/2022 5:47 PM EDT [facility] Albumin Level 4.4 3.5 - 5.7 gm/dL LAB CHEMISTRY METHOD 09/21/2022 5:47 PM EDT [facility] Alkaline Phosphatase 44 34 - 104 unit/L LAB CHEMISTRY METHOD 09/21/2022 5:47 PM EDT [facility] Alanine Aminotransferase 38 7 - 52 unit/L LAB CHEMISTRY METHOD 09/21/2022 5:47 PM EDT [facility] Aspartate Aminotransferase 31 13 - 39 unit/L LAB CHEMISTRY METHOD 09/21/2022 5:47 PM EDT [facility] Total Bilirubin 0.6 0.3 - 1.0 mg/dL LAB CHEMISTRY METHOD 09/21/2022 5:47 PM EDT [facility] Anion Gap 8 2 - 11 mmol/L LAB CHEMISTRY METHOD 09/21/2022 5:47 PM EDT [facility] Calculated Osmolality 278 275 - 295 mOsm/kg LAB CHEMISTRY METHOD 09/21/2022 5:47 PM EDT [facility] U:C 18 7 - 21 LAB CHEMISTRY METHOD 09/21/2022 5:47 PM EDT [facility] Estimated GFR 87 >=60 mL/min/1. 73m2 LAB CHEMISTRY METHOD 09/21/2022 5:47 PM EDT [facility] Comment: The eGFR is calculated [...] 1. Based on review of evidence, the [facility] Clinical Practice [place] made the decision to stop reporting eGFR by race effective 09/03/2020. Blood Venous blood specimen / Unknown Venipuncture / Unknown 09/21/2022 11:42 AM EDT 09/21/2022 11:42 AM EDT Sydnee Zelda Style DO LAB BLOOD ORDERABLE S [facility] [address] [place] [address] * (ABNORMAL) Urinalysis (09/21/2022 11:42 AM EDT) Color Yellow Colorless, Straw, Yellow LAB URINALYSIS - AUTOMATED METHOD 09/22/2022 2:44 PM EDT [facility] Clarity Clear Clear LAB URINALYSIS - AUTOMATED METHOD 09/22/2022 2:44 PM EDT [facility] Specific [place] Urine 1.005 1.005 - 1.030 LAB URINALYSIS - AUTOMATED METHOD 09/22/2022 2:44 PM EDT [facility] pH Urine Random 6.0 5.0, 6.0, 7.0, 8.0 LAB URINALYSIS - AUTOMATED METHOD 09/22/2022 2:44 PM EDT [facility] Protein Urine Qualitative Negative Negative mg/dL LAB URINALYSIS - AUTOMATED METHOD 09/22/2022 2:44 PM EDT [facility] Glucose Urine Qualitative Negative Negative mg/dL LAB URINALYSIS - AUTOMATED METHOD 09/22/2022 2:44 PM EDT [facility] Ketone Urine Qualitative Negative Negative mg/dL LAB URINALYSIS - AUTOMATED METHOD 09/22/2022 2:44 PM EDT [facility] Blood Urine Qualitative Negative Negative LAB URINALYSIS - AUTOMATED METHOD 09/22/2022 2:44 PM EDT [facility] Ascorbic Acid Urine Qualitative Positive(A) Negative LAB URINALYSIS - AUTOMATED METHOD 09/22/2022 2:44 PM EDT [facility] Comment:A positive Ascorbic Acid may interfere with the detection of blood, glucose, nitrite, and bilirubin. Urobilinogen Urine Qualitative <2.0 <2.0, 2.0 mg/dL mg/dL LAB URINALYSIS - AUTOMATED METHOD 09/22/2022 2:44 PM EDT [facility] Nitrite Urine Qualitative Negative Negative LAB URINALYSIS - AUTOMATED METHOD 09/22/2022 2:44 PM EDT [facility] Leukocyte Esterase Urine Qual Negative Negative LAB URINALYSIS - AUTOMATED METHOD 09/22/2022 2:44 PM EDT [facility] Bilirubin Urine Qualitative Negative Negative LAB URINALYSIS - AUTOMATED METHOD 09/22/2022 2:44 PM EDT [facility] Urine Urine specimen obtained by clean catch procedure / Unknown Non-blood Collection / Unknown 09/21/2022 11:42 AM EDT 09/21/2022 11:42 AM EDT Sydnee Zelda Style DO LAB URINE ORDERABLE S [facility] [address] [place] [address] * Urinalysis Microscopic (09/21/2022 11:42 AM EDT) RBC/HPF <1 <=2 /HPF LAB URINALYSIS - AUTOMATED METHOD 09/22/2022 2:44 PM EDT [facility] WBC/HPF <1 <=5 /HPF LAB URINALYSIS - AUTOMATED METHOD 09/22/2022 2:44 PM EDT [facility] Urine Urine specimen obtained by clean catch procedure / Unknown Non-blood Collection / Unknown 09/21/2022 11:42 AM EDT 09/21/2022 11:42 AM EDT Sydnee Zelda Style DO LAB URINE ORDERABLE S Performing Organization Address City/[facility]/ZIP Co de Phone Number [facility] [address] [place] [address] * Urine Culture (09/21/2022 11:42 AM EDT) Urine Culture No growth DAVONTE INTERP 09/24/2022 10:00 AM EDT [facility] Urine Urine specimen obtained by clean catch procedure / Unknown Non-blood Collection / Unknown 09/21/2022 11:42 AM EDT 09/21/2022 11:42 AM EDT Sydnee Zelda Style DO LAB MICROBIOLOGY - GENERAL ORDERABLES Performing Organization Address City/[facility] Co de Phone Number [facility] [address] [place] [address] documented in this encounter Visit Diagnoses Diagnosis Urinary urgency Urgency of urination Memory change Memory loss documented in this encounter Additional Health Concerns Assessment Noted Time A fall risk assessment has been complete d for the patient 09/21/2022 10:24 AM EDT documented as of this encounter
--- OUTSIDE RECORDS SUMMARY | 2023-11-14 01:04 | XMS_ITS | Encounter Summary ---
Author Organization [facility] Address [address], [place] [address] Phone Care Team Providers Care Manager Telecom Name Role Phone Unavailable Primary Care Provider Unavailabl e Reason for Visit * Consultation (Routine) - Closed Specialty Diagnoses / Procedures Referred By Farrah shook Referred To Contact Otolaryngology Diagnoses Tinnitus of both ears Procedures MA OFFICE/OUTPATIENT [facility] MDM 60-74 MINUTES Style, Sydnee Ndiaye, DO [address] [facility] [address] [facility] [place] [address] Referral ID Status Reason Start Date Expiration Date V isits Requested Visits Authorized [id number] Closed Specialty Services Required 12/24/2022 12/24/2023 1 1 Encounter Details Date Type Department Care Team (Latest Contact Info) Description 01/03/2023 3:40 PM EDT Procedure Visit [facility] [address] [facility] Medical Office [place] Floor [address] [place] [address] Katie Chavis AUD Bilateral sensorineural hearing loss (Primary Dx); Tinnitus of both ears Social History Tobacco [...] and Family Not on file 12/29/2022 Attends [employer] Not on file 12/29 Active Member [...] Recorded Patient Health Questionnaire-2 Score 1 09/21/2022 [facility] [place] of Occupat ional Health - Occupational Stress [...] place to sleep or slept in a half-way (including now)? No 12/29/2022 Sex and Gender Information Value Date Recorded Sex Assigned at Choose not to disclose 06/2023 9:41 PM EDT Gender Identity Female 01/17/2022 5:45 PM EDT Sexual Orientation Choose not to disclose 2023 9:41 PM EDT Job Start Date Occupation Industry Not on file Not on file Not on file documented as of this encounter Progress Notes * PalmiraKatie, LISA - 01/03/2023 3:40 PM EDT Images from the original note were not included. HEARING EVALUATION Gianna Infante is a female of 77 y.o., [facility] on 01[facility]23for an audiologic evaluation. CHIEF COMPLAINT: Patient reported buzzing tinnitus that sounds like it is in her head. She reported first noticing it in March 2022 and gets worse with stress or when she is tired. She reported ahistory of cerumen impactions and has her ears cleaned every three months. She denied concerns about her hearing. RESULTS: Today's results were obtained using insert earphones with good reliability. Evaluated [id number] - 8000 Hz with use of appropriate masking as needed. Otoscopy: Right: Significant non-occluding cerumen Left: Significant non-occluding cerumen Cerumen removal was performed by Nury Martinez NP prior to hearing test. Tympanometry: Administered to assess middle ear status. Right: Could not test, unable to maintain hermetic seal Left: Type A; consistent with normal middle ear function, tympanic mobility, volume Speech Bending Frame Operator Threshold: Right: 10 dB HL. Consistent with good SRT/RED HAT ENGINEER agreement. Left: 10 dB HL. Consistent with good SRT/RED HAT ENGINEER agreement. Word Recognition Score: Right: 100 % @ 50 dB HL (using Recorded NU-6 words) consistent with Excellent speech discriminationability. Left: 100% @ 50 dB HL (using Recorded NU-6 words) consistent with Excellent speech discrimination ability. Pure tone audiometry: Right: Normal hearing sensitivity through 4000 Hz, mild sloping to moderate sensorineural hearing loss 2475-1421 Hz. Left: Normal hearing sensitivity through 3000 Hz, mild sensorineural hearing loss 3293-1716 Hz. *SEE AUDITORY FUNCTION TEST FOR COMPLETE AUDIOGRAM* COUNSELING: Reviewed today's test result findings in detail. Communication was provided verbally and the patient was provided with a copy of the audiogram. Patient verbally expressed understanding of the information provided. Audiogram results revealed: Hearing loss. Results to be used as a baseline since we do not have previous hearing testing for comparison. Patient may benefit from amplification - discussed borderline candidacy and recommendations for follow-up. Reviewed tinnitus management techniques (ie sound machine use) and tinnitus triggers to avoid. RECOMMENDATIONS: - Otology: Patient is scheduled to see Naeem Paiz MD for review of hearing test and otologic evaluation. - Re-evaluate annually, per MD, or sooner with any changes or concerns regarding hearing status or otologic symptoms. - Practice tinnitus management techniques. documented in this encounter Miscellaneous Notes * Addendum Note - Sonali Chappell - 01/03/2023 3:40 PM EDTAddended by: SONALI CHAPPELL on: 01/03/2023 04:38 PM Modules accepted: Orders documented in this encounter Plan of Treatment Upcoming Encounters Date Type Department Care Team (Late st Contact Info) Description 01/04/2024 11:20 AM EDT Procedure Visit [facility] [address] [facility] Medical Office [place] Floor [address] [place] [address] Katie Jones AUD 01/06/2024 2:00 PM EDT Appointment [facility] [address] [place] [address] 01/09/2024 2:00 PM EDT Office Visit [facility] [address] [facility] Medical Office [place] 19th Floor [address] [place] [address] Radha Coker MD [address] [place] [address] 01/10/2024 8:30 AM EDT Office Visit [facility] [address] [place] [address] Vandana, Sydnee Ndiaye, DO [address] [facility] [place] [address] 01/11/2024 10:00 AM EDT Office Visit [facility] - ENT & Facial Plastic Surgery [address] [place] [address] Kat Rico PA [address] [place] [address] 01/20/2024 11:45 AM EDT Clinical Support [facility] [address] [place] [address] Maria Eugenia Lucero, ORA [address] [place] [address] 01/30/2024 8:40 AM EST Office Visit [facility] 550 [facility] Office [place] 15th Floor [address] [place] [address] Jose Monique MD 550 [facility] [place] 15th Floor, [address] [place] [address] 02/27/2024 12:50 PM EST Office Visit [facility] [address] [facility] Floor 4 [address] [place] [phone] Kellie Bowser, OD [address] [facility] [address] [facility] [address] [facility] [place] [address] 06/19/2024 11:30 AM EDT Appointment [facility] [address] [place] [address] 06/19/2024 1:00 PM EDT Appointment [facility] [address] [facility] [address] [place] [address] 08/21/2024 1:40 PM EDT Office Visit [facility] at [address] [facility] [address] 3rd [place] [address] Satya Wright PA [address] 3rd [place] [address] 09/05/2024 10:30 AM EDT Office Visit [facility] [address] [place] [address] Tatiana Dominguez NP [address] [place] [address] Scheduled Orders Name Type Priority Associated Diagnoses Orde r Schedule Comprehensive hearing test Audiology Routine Expected: 2022 (Approximate), Expires: 01/04/2024 documented as of this encounter Procedures Procedure Name Priority Date/Time Associated Diagnosis Comments AUDITORY FUNCTION TESTS Routine 01/03/2023 3:49 PM EDT documented in this encounter Results * Auditory function tests (01/03/2023 3:49 PM EDT) Katie Dhaliwal AUD - 01/03/2023 4:14 PM EDT Pure tone audiometry: Right: Normal hearing sensitivity through 4000 Hz, mild sloping to moderate sensorineural hearing loss 2187-1694 Hz. Left: Normal hearing sensitivity through 3000 Hz, mild sensorineural hearing loss 3168-2771 Hz. Katie GONZALEZ AUDIOLOGY SERVICE S ORDERABLES documented in this encounter Visit Diagnoses Diagnosis Bilateral sensorineural hearing loss- Primary Sensorineural hearing loss, bilateral Tinnitus of both ears Unspecified tinnitus documented in this encounter Additional Health Concerns Assessment Noted Time A fall risk assessment has been complete d for the patient 12/29/2022 9:55 AM EDT documented as of this encounter
--- OUTSIDE RECORDS SUMMARY | 2023-11-14 01:04 | XMS_ITS | Encounter Summary ---
Author Organization [facility] Address [address] [place] [address], [place] [address] Phone Care Team Providers Care Geothermal Installer Name Role Phone Unavailable Primary Care Provider Unavailabl e Reason for Referral * Outpatient Surgery (Routine) - Closed Specialty Diagnoses / Procedures Referred By Farrah shook Referred To Contact Gastroenterology Diagnoses Pancreatic lesion Procedures Endoscopic Ultrasound w FNA SD EDG US EXAM SURGICAL ALTER STOM DUODENUM/JEJUNUM SD EGD US GUIDED TRANSMURAL INJXN/FIDUCIAL MARKER SD INJX ANES CELIAC PLEXUS W/WO RADIOLOGIC MONITRNG SD EGD US GUIDED TRANSMURAL INJXN/FIDUCIAL MARKER SD EGD INTRMURAL US NEEDLE ASPIRATE/BIOPSY ESOPHAGS SD ESOPHAGOSCOPY INTRA/TRANSMURAL NEEDLE ASPIRAT/BX SD EGD INTRMURAL NEEDLE ASPIR/BIOP ALTERED ANATOMY SD ESOPHAGOSCOPY FLEXIBLE TRANSORAL ULTRASOUND EXAM Todd Chairez MD [address] [facility], [place] [address] [place] [address] Referral ID Status Reason Start Date Expiration Date Visits Re quested Visits Authorized [id number] Closed 10/04/2022 10/04/2023 1 1 * Imaging (Routine) - Closed Specialty Diagnoses / Procedures Referred By Farrah shook Referred To Contact Radiology Diagnoses Pancreatic lesion Procedures MR Abdomen W And WO Contrast Mrcp Todd Chairez MD [address] [facility], [place] [address] [place] [address] Referral ID Status Reason Start Date Expiration Date Visits Re quested Visits Authorized [id number] Closed 10/04/2022 11/03/2023 1 1 Encounter Details Date Type Department Care Team (Late st Contact Info) Description 10/04/2022 Orders Only [facility] at [address] 1 [place] [address] Todd Chairez MD [address] [facility] [address], [address] [place] [address] Pancreatic lesion (Primary Dx) Social History Tobacco Use Types [...] EDT Procedure Visit [facility] [address] [facility] Medical Office [place] Floor 9 [place] [address] Katie Jones AUD 01/06/2024 2:00 PM EDT Appointment [facility] [address] [place] [address] 01/09/2024 2:00 PM EDT Office Visit [facility] [address] [facility] Medical Office [place] 19th Floor [address] [place] [address] Radha Coker MD 550 [place] [address] 01/10/2024 8:30 AM EDT Office Visit [facility] - Primary Care [address] [place] [address] Vandana, Sydnee Ndiaye, [address] [place] [facility] [place] [address] 01/11/2024 10:00 AM EDT Office Visit [facility] - ENT & Facial Plastic Surgery [address] [place] [address] Kat Rico, PATTIE [address] [place] [address] 01/20/2024 11:45 AM EDT Clinical Support [facility] [address] [place] [address] Maria Eugenia Lucero, [facility] [address] [place] [address] 01/30/2024 8:40 AM EST Office Visit [facility] [address] [facility] Medical Office [place] 15th Floor [address] [place] [address] Jose Monique MD 550 [facility] Office [place] 15th Floor, [address] [place] [address] 02/27/2024 12:50 PM EST Office Visit [facility] [address] 4 [address] [place] [phone] Kellie Bowser, OD [address], [address] [facility] [place] [address] 06/19/2024 11:30 AM EDT Appointment [place] [address] [facility] [address] [place] [address] 06/19/2024 1:00 PM EDT Appointment [place] [address] [facility] [address] [place] [address] 08/21/2024 1:40 PM EDT Office Visit [facility] at [address] [facility] 3rd [place] [address] Satya Wright PA [address] 3rd [place] [address] 09/05/2024 10:30 AM EDT Office Visit [facility] [address] [place] [address] Tatiana Dominguez, KASH [address] [place] [address] [place] [address] Scheduled Orders Name Type Priority Associated Diagnoses Orde r Schedule MR Abdomen W And WO Contrast Mrcp Imaging Routine Pancreatic lesion Expected: 10/04/2022, Expires: 10/05/2023 documented as of this encounter Results * Endoscopic Ultrasound w FNA (08/10/2023 11:58 AM EDT) Anatomical Region Laterality Modality Endoscopy 08/10/2023 11:2 3 AM EDT Narrative 08/10/2023 12:15 PM EDT [facility] Patient Name: Gianna Infante , ? Procedure Date: 08/10/2023 11:23 AM ? Date of : 1945 ?Admit Type: Outpatient Age: 77 ? Gender: Female Note Status: Finalized ?Attending MD: Todd Chairez MD, Patient Location: [id number] ?Instrument Name: NELLA [id number] REYES YELLOW,GIF HQ190 [id number] WHITE/BLUE Number of Addenda: 0 Procedure Date: [...] and ? S2 present and RRR on laboratory monitor. Prophylactic ? Antibiotics: The patient does [...] of duodenum. The Endoscope GIF HQ190 ? [id number] was introduced through the mouth, and advanced [...] a contact number available for ? emergencies, [facility] number [phone]. The ? signs and symptoms of potential delayed complications ? were discussed with the patient. Patient will be ? discharged to home. Return to normal activities ? tomorrow. Written discharge instructions were provided ? to the patient. ? Procedure Code(s): ? --- Professional --- ? 30094, Esophagogastroduodenoscopy, flexible, ? transoral; with endoscopic ultrasound [...] parts of digestive tract CPT copyright 2021 [employer]. All rights reserved. The codes documented in this report are preliminary and upon inpatient coder review may be revised to meet current [...] Procedure Note Todd Chairez MD - 08/10/2023 [facility] Patient Name: Gianna Infante , Procedure Date: 08/10/2023 11:23 AM Date of : 1945 Admit Type: Outpatient Age: 77 Gender: Female Note Status: Finalized Attending MD: Todd Chairez MD, Patient Location: [address] [place] [address] Instrument Name: [id number] YELLOW,[facility] HQ190 [id number] WHITE/BLUE Number of Addenda: 0 Procedure Date: [...] Examination: S1and S2 present and RRR on laboratory monitor. Prophylactic Antibiotics: The patient does not [...] part of duodenum. The Endoscope GIF HQ190 [id number] was introduced through the mouth, andadvanced to [...] has a contact number available for emergencies, [facility] number [phone].The signs and symptoms of potential delayedcomplications were discussed with the patient. Patient will be discharged to home. Return to normal activities tomorrow. Written discharge instructions wereprovided to the patient. 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 All rights reserved. The codes documented in this report are preliminary and upon inpatient coder reviewmay be revised to meet current compliance [...] in this encounter Visit Diagnoses Diagnosis Pancreatic lesion- Primary Pancreatic lesion documented in this encounter Additional Health Concerns Assessment Noted Time A fall risk assessment has been complete d for the patient 09/21/2022 10:24 AM EDT documented as of this encounter
--- OUTSIDE RECORDS SUMMARY | 2023-11-14 01:04 | XMS_ITS | Encounter Summary ---
Author Organization [facility] Address [address] [place] [address], [place] [address] Phone Care Team Providers Care Bookmaker Map Name Role Phone Unavailable Primary Care Provider Unavailabl e Reason for Visit * Reason Onset Date Comments Injections 09/24/2022 Encounter Details Date Type Department Care Team (Late st Contact Info) Description 09/24/2022 Telephone [facility] [address] [place] [address] Hieu Giles MD [address] [facility] [place] [address] Injections Social History Tobacco Use Types Packs/Day Years [...] encounter Miscellaneous Notes * Telephone Encounter - Mey Platt - 09/24/2022 3:40 PM EDT CLINICAL CONCERN Concern / Question: Mrs. Infante would like to reschedule her injection. Please f/up documented in this encounter Plan of Treatment Upcoming Encounters Date Type Department Care Team (Late st Contact Info) Description 01/04/2024 11:20 AM EDT Procedure Visit [facility] [address] [facility] Medical Office [place] Floor 9 [place] [address] Katie Jones, LISA 01/06/2024 2:00 PM EDT Appointment [facility] [address] [place] [address] 01/09/2024 2:00 PM EDT Office Visit [facility] [address] [facility] Medical Office [place] 19th Floor [address] [place] [address] Radha Coker MD [address] [place] [address] 01/10/2024 8:30 AM EDT Office Visit [facility] Care [address] [place] [address] Vandana, Sydnee Ndiaye DO [address] [facility] [place] [address] 01/11/2024 10:00 AM EDT Office Visit [facility] - ENT & Facial Plastic Surgery [address] [facility] [address] [place] [address] Kat Rico PA [address] [place] [address] 01/20/2024 11:45 AM EDT Clinical Support [facility] [address] [place] [address] Maria Eugenia Lucero LAC [address] [place] [address] 01/30/2024 8:40 AM EST Office Visit [facility] [address] [facility] [place] 15th Floor [address] [place] [address] Jose Monique MD 550 [facility] Office [place] 15th Floor, [address] [place] [address] 02/27/2024 12:50 PM EST Office Visit [facility] [address] [facility] Floor 4 [address] [place] [phone] Kellie Bowser, OD [address] [facility] [address] 4, [address] [facility] [place] [address] 06/19/2024 11:30 AM EDT Appointment [place] [address] [address] 06/19/2024 1:00 PM EDT Appointment [place] [address] [address] 08/21/2024 1:40 PM EDT Office Visit [facility] [address] 3rd [place] [address] Satya Wright PA [address] [facility] 3rd [place] [address] 09/05/2024 10:30 AM EDT Office Visit [facility] [address] [place] [address] Tatiana Dominguez NP [address] [place] [address] documented as of this encounter Visit Diagnoses Not on filedocumented in this encounter Additional Health Concerns Assessment Noted Time A fall risk assessment has been complete d for the patient 09/21/2022 10:24 AM EDT documented as of this encounter
--- OUTSIDE RECORDS SUMMARY | 2023-11-14 01:04 | XMS_ITS | Encounter Summary ---
Author Organization [facility] Address [address] [place] [address], [place] [address] Phone Care Team Providers Care Architectural Modeler Name Role Phone Unavailable Primary Care Provider Unavailabl e Reason for Visit * Reason Onset Date Comments Med Refill 10/25/2022 Encounter Details Date Type Department Care Team (Late st Contact Info) Description 10/25/2022 Telephone [place] [facility] - Primary Care [address] [facility] [address] [place] [address] Style, Sydnee Ndiaye, [address] [place] [facility] [place] [address] Med Refill Social History Tobacco Use Types [...] encounter Miscellaneous Notes * Telephone Encounter - Mary Barr - 11/02/2022 4:39 PM EDT Refill: 10/28/22 * Telephone Encounter - Rama Lobo - 10/28/2022 8:21 AM EDT Refill for atorvastatin sent Last OV 09/21/22 Lipids 01/01/22 Rama Lobo LPN * Telephone Encounter - Griselda Watson - 10/25/2022 1:17 PM EDT MEDICATION RENEWAL Provider / MD: Vandana Medication 1: atorvastatin Medication 2: Medication 3: Pharmacy Name: [facility] Phone #: documented in this encounter Plan of Treatment Upcoming Encounters Date Type Department Care Team (Late st Contact Info) Description 01/04/2024 11:20 AM EDT Procedure Visit [facility] [address] [facility] Medical Office [place] Floor 9 [place] [address] Katie Jones AUD 01/06/2024 2:00 PM EDT Appointment [facility] [address] [place] [address] 01/09/2024 2:00 PM EDT Office Visit [facility] [address] [facility] Medical Office [place] 19th Floor [address] [place] [address] Radha Coker MD 550 [place] [address] 01/10/2024 8:30 AM EDT Office Visit [place] [facility] - Primary Care [address] [place] [address] Sydnee Ross, DO [address] [facility] [place] [address] 01/11/2024 10:00 AM EDT Office Visit [facility] - ENT & Facial Plastic Surgery [address] [place] [address] Kat Rico, PATTIE [address] [place] [address] 01/20/2024 11:45 AM EDT Clinical Support [facility] [address] [place] [address] Maria Eugenia Lucero, ORA [address] [place] [address] 01/30/2024 8:40 AM EST Office Visit [facility] 550 [facility] [place] 15th Floor [address] [place] [address] Jose Monique MD 550 [facility] Office [place] 15th Floor, [address] [place] [address] 02/27/2024 12:50 PM EST Office Visit [facility] [address] [place] [phone] Kellie Bowser, OD [address], [address] [facility] [place] [address] 06/19/2024 11:30 AM EDT Appointment [facility] [address] [place] [address] 06/19/2024 1:00 PM EDT Appointment [facility] [address] [place] [address] 08/21/2024 1:40 PM EDT Office Visit [facility] at [address] [facility] 3rd [place] [address] Satya Wright PA [address] 3rd [place] [address] 09/05/2024 10:30 AM EDT Office Visit [facility] [address] [place] [address] Tatiana Dominguez, KASH [address] [place] [address] documented as of this encounter Visit Diagnoses Not on filedocumented in this encounter Additional Health Concerns Assessment Noted Time A fall risk assessment has been complete d for the patient 09/21/2022 10:24 AM EDT documented as of this encounter
--- OUTSIDE RECORDS SUMMARY | 2023-11-14 01:05 | XMS_ITS | Encounter Summary ---
Author Organization [facility] Address [address] [place] [address], [place] [address] Phone Care Team Providers Care Commercial Insurance Underwriter Name Role Phone Unavailable Primary Care Provider Unavailabl e Reason for Referral * Outpatient Surgery (Routine) - Closed Specialty Diagnoses / Procedures Referred By Farrah shook Referred To Contact Gastroenterology Diagnoses IPMN (intraductal papillary mucinous neoplasm) Procedures Endoscopic Ultrasound w FNA AL EDG US EXAM SURGICAL ALTER STOM DUODENUM/JEJUNUM AL EGD US GUIDED TRANSMURAL INJXN/FIDUCIAL MARKER AL INJX ANES CELIAC PLEXUS W/WO RADIOLOGIC MONITRNG AL EGD US GUIDED TRANSMURAL INJXN/FIDUCIAL MARKER AL EGD INTRMURAL US NEEDLE ASPIRATE/BIOPSY ESOPHAGS AL ESOPHAGOSCOPY INTRA/TRANSMURAL NEEDLE ASPIRAT/BX AL EGD INTRMURAL NEEDLE ASPIR/BIOP ALTERED ANATOMY AL ESOPHAGOSCOPY FLEXIBLE TRANSORAL ULTRASOUND EXAM [facility] [address] Gastro [address] [facility] [address] [place] [address] Referral ID Status Reason Start Date Expiration Date Visits Re quested Visits Authorized [id number] Closed 08/02/2022 08/02/2023 1 1 Encounter Details Date Type Department Care Team (Late st Contact Info) Description 07/28/2022 Telephone [facility] [address] [facility] [address] [place] [address] Walter Love MD [address] [facility] [address] [place] [address] Social History Tobacco Use Types Packs/Day Years Used Date Smoking Tobacco: Never Smokeless Tobacco: Never Alcohol Use Standard Drinks/Week Comments Yes 4 (1 standard drink = 0.6 oz pur e alcohol) 4 per week average PHQ-2 Answer Date Recorded Patient Health Questionnaire-2 Score 0 07/08/2022 Sex and Gender Information Value Date Recorded [...] suspected to have Coronavirus/COVID-19? No / Unsure 07/29/2022 11:03 AM EDT documented as of this encounter Miscellaneous Notes * Telephone Encounter - Walter Love MD - 08/02/2022 2:43 PM EDT Todd, >3.0cm IPMN in HOP. I put in order for EUS. Thanks Ed * Telephone Encounter - Hue Burr - 07/28/2022 12:56 PM EDT Pt is calling to discuss the Lorazpane, Pt has to take medication before her procedure tomorrow please advise documented in this encounter Plan of Treatment Upcoming Encounters Date Type Department Care Team (Late st Contact Info) Description 01/04/2024 11:20 AM EDT Procedure Visit [facility] [address] Medical Office [place] Floor 9 [place] [address] Katie Jones, LISA 01/06/2024 2:00 PM EDT Appointment [facility] [address] [place] [address] 01/09/2024 2:00 PM EDT Office Visit [facility] [address] [facility] Medical Office [place] 19th Floor [address] [place] [address] Radha Coker MD [address] [place] [address] 01/10/2024 8:30 AM EDT Office Visit [facility] [address] [place] [address] Style, Sydnee Ndiaye, DO [address] [facility] [place] [address] 01/11/2024 10:00 AM EDT Office Visit [facility] - ENT [facility] Facial Plastic Surgery [address] [place] [address] Kat Rico, PA [address] [place] [address] 01/20/2024 11:45 AM EDT Clinical Support [facility] [address] [place] [address] Maria Eugenia Lucero, [facility] [address] [place] [address] 01/30/2024 8:40 AM EST Office Visit [facility] [address] [facility] Medical Office [place] 15th [address] [place] [address] Jose Monique MD [address] [facility] Office [place] 15th Floor, [address] [place] [address] 02/27/2024 12:50 PM EST Office Visit [facility] [address] [place] [id number] Kellie Bowser, OD [address] [facility] [address], [address] [facility] [place] [address] 06/19/2024 11:30 AM EDT Appointment [place] [address] [place] [address] 06/19/2024 1:00 PM EDT Appointment [place] [address] [facility] [address] [place] [address] 08/21/2024 1:40 PM EDT Office Visit [facility] [address] 3rd [place] [address] Satya Wright PA [address] [facility] 3rd [place] [address] 09/05/2024 10:30 AM EDT Office Visit [facility] [address] [place] [address] Tatiana Dominguez, SPECIMEN TECHNICIAN [address] [facility] [place] [address] documented as of this encounter Results * Endoscopic Ultrasound w FNA (08/19/2022 2:54 PM EDT) Anatomical Region Laterality Modality Endoscopy 08/19/2022 1:56 PM EDT Narrative 08/19/2022 3:09 PM EDT [facility] GI Patient Name: Gianna Infante , ? Procedure Date: 08/19/2022 1:56 PM ? Date of : 1945 ?Admit Type: Outpatient Age: 76 ? Gender: Female Note Status: Finalized ?Attending MD: Todd Chairez MD Patient Location: [id number] ?Instrument Name: GFUCT [id number] ERIC/COMPA,GIF HQ [id number] WHITE/CHRISTEL Number of Addenda: 0 Procedure Date: ?08/19/2022 1:56:04 PM Procedure: ? Upper EUS Indications: ? 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 Patient Profile: ? 76 yr lady with large pancreatic cyst, presents for ? evaluation Providers: ? Todd Chairez MD (Doctor) Referring MD: ?F. Alcides Love MD Medicines: ? Propofol per Anesthesia, Levaquin 500 mg IV Complications: ? No immediate complications. Estimated Blood [...] were ? verified by the physician, the nurse, the treatment coordinator ? and the boiler control technician in the endoscopy suite. ASA Grade ? Assessment: III - A patient with severe systemic ? disease. After reviewing the risks [...] the ? second part of duodenum. The GIF HQ [id number] ? WHITE/RED was introduced through the mouth, and ? advanced to the second part of duodenum. The upper EUS ? was accomplished without difficulty. The patient ? tolerated the procedure well. ? Findings: ? ENDOSCOPIC FINDING: : ? Large inlet patches on both sides of the proximal esophagus. ? There was a focal submucosal venous bleb in the distal esophagus, ? measuring 10 mm. ? There is a small hiatal hernia ? The entire examined stomach was endoscopically normal. ? The examined duodenum was endoscopically normal. ? ENDOSONOGRAPHIC FINDING: : ? Anechoic lesions suggestive of a few cysts were identified in the ? pancreatic head. The largest lesion measured 30 mm by 20 mm in maximal ? cross-sectional diameter. There was another mutiseptated cyst adjacent ? to the large anechoic cyst measuring 25 mm x 14 mm. There was no ? associated mass. Fine needle aspiration for cytology was performed from ? the larger cyst. Color Doppler imaging was utilized prior to needle ? puncture to confirm a lack of significant vascular structures within the ? needle path. One pass was made with the 22 gauge needle using a ? transduodenal approach. A stylet was used. A preliminary cytologic ? examination was not performed. ? There was no sign of significant endosonographic abnormality in the main ? pancreatic duct which could be traced from the ampulla to the tail. The ? pancreatic duct measured up to 2 mm in diameter. The pancreas was well ? visualized, the pancreatic duct was well visualized from ampulla to ? tail, the pancreatic duct was thin in caliber, the pancreatic duct was ? regular in contour. ? There was no sign of significant endosonographic abnormality in the ? common bile duct. The maximum diameter of the duct was 3 mm. An ? unremarkable gallbladder was identified. ? There was no sign of significant endosonographic abnormality in the left ? lobe of the liver. Homogeneous parenchyma was identified. ? The region of the celiac plexus and celiac ganglia was visualized and ? showed no sign of significant endosonographic abnormality. The vascular ? anatomy of the region was normal. ? Impression: ?- Small 11 mm submucosal lesion in the esophagus ? corresponding to the venous bleb seen on endoscopy. ? - Small hiatal hernia ? - There was a large 30 mm cystic lesion in the head ? and an adjacent multiseptated anechoic cystic lesion ? measuring 26 mm. There were no mural nodules or wall ? thickening. ? - The PD did not appeared dilatated. ? - Under doppler guidance, fluid aspirated from the ? large cyst- about 10 cmm aspirated and sent for CEA, ? amylase, mutation studies and cytology. Cytology ? results are pending. Endosonographic appearance is ? suggestive of a branched intraductal papillary ? mucinous neoplasm. Fine needle aspiration performed. ? - There was no sign of significant pathology in the ? main pancreatic duct. ? - There was no sign of significant pathology in the ? common bile duct. ? - There was no evidence of significant pathology in ? the left lobe of the liver. Recommendation: ?- Patient has a contact number available for ? emergencies. The signs and symptoms of potential ? delayed complications were discussed with the patient. ? Return to normal activities tomorrow. Written ? discharge instructions were provided to the patient. ? - Await cytology results and await tumor markers. ? - Return to referring physician as previously ? scheduled. ? Procedure Code(s): ? --- Professional --- ? 70372, Esophagogastroduodenoscopy, flexible, ? transoral; with transendoscopic ultrasound- guided ? intramural or transmural fine needle ? aspiration/biopsy(s), (includes endoscopic ultrasound ? examination limited to the esophagus, stomach or ? duodenum, and adjacent structures) Diagnosis Code(s): ? --- Professional --- ? K86.2, Cyst of pancreas ? D49.0, Neoplasm of unspecified behavior of digestive ? system CPT copyright 2021 [employer]. All rights reserved. The codes documented in this report are preliminary and upon gerontology aide review may be revised to meet current compliance requirements. Attending Participation: ? I personally performed the entire procedure. ? Todd Chairez MD 08/19/2022 3:09:46 PM This report has been signed electronically by: Todd Chairez MD Note Initiated On: 08/19/2022 1:56 PM Total Procedure Duration Time 0 hours 34 minutes 45 seconds Scope In: 2:12:52 PM Scope Out: 2:47:37 PM Procedure Note Todd Chairez MD - 08/19/2022 [facility] Patient Name: Gianna Infante , Procedure Date: 08/19/2022 1:56 PM Date of : 1945 Admit Type: Outpatient Age: 76 Gender: Female Note Status: Finalized Attending MD: Todd Chairez MD Patient Location: [address] [place] [address] Instrument Name: [facility] [id number] REYES/COMPA,[facility] [id number] WHITE/RED Number of Addenda: 0 Procedure Date: 08/19/2022 1:56:04 PM Procedure: Upper EUS Indications: 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 Patient Profile: 76 yr lady with large pancreatic cyst, presents for evaluation Providers: Todd Chairez MD (Doctor) Referring MD: Gareth Love MD Medicines: Propofol per Anesthesia, Levaquin 500 mg IV Complications: No immediate complications. Estimated Blood Loss: [...] procedure were verified by the physician, the nurse, theanesthetist and the boiler control technician in the endoscopy suite. ASAGrade Assessment: III - A patient with severe systemic disease. After reviewing the risks and [...] advanced tothe second part of duodenum. The GIF HQ [id number] WHITE/RED was introduced through the mouth, and advanced to the second part of duodenum. The upperEUS was accomplished without difficulty. The patient tolerated the procedure well. Findings: ENDOSCOPIC FINDING: : Large inlet patches on both sides of the proximal esophagus. There was a focal submucosal venous bleb in the distal esophagus, measuring 10 mm. There is a small hiatal hernia The entire examined stomach was endoscopically normal. The examined duodenum was endoscopically normal. ENDOSONOGRAPHIC FINDING: : Anechoic lesions suggestive of a few cysts were identified in the pancreatic head. The largest lesion measured 30 mm by 20 mm inmaximal cross-sectional diameter. There was another mutiseptated cystadjacent to the large anechoic cyst measuring 25 mm x 14 mm. There was no associated mass. Fine needle aspiration for cytology was performedfrom the larger cyst. Color Doppler imaging was utilized prior to needle puncture to confirm a lack of significant vascular structures withinthe needle path. One pass was made with the 22 gauge needle using a transduodenal approach. A stylet was used. A preliminary cytologic examination was not performed. There was no sign of significant endosonographic abnormality in themain pancreatic duct which could be traced from the ampulla to the tail.The pancreatic duct measured up to 2 mm in diameter. The pancreas waswell visualized, the pancreatic duct was well visualized from ampulla to tail, the pancreatic duct was thin in caliber, the pancreatic ductwas regular in contour. There was no sign of significant endosonographic abnormality in the common bile duct. The maximum diameter of the duct was 3 mm. An unremarkable gallbladder was identified. There was no sign of significant endosonographic abnormality in theleft lobe of the liver. Homogeneous parenchyma was identified. The region of the celiac plexus and celiac ganglia was visualized and showed no sign of significant endosonographic abnormality. Thevascular anatomy of the region was normal. Impression: - Small 11 mm submucosal lesion in the esophagus corresponding to the venous bleb seen onendoscopy. - Small hiatal hernia - There was a large 30 mm cystic lesion in the head and an adjacent multiseptated anechoic cysticlesion measuring 26 mm. There were no mural nodules orwall thickening. - The PD did not appeared dilatated. - Under doppler guidance, fluid aspirated from the large cyst- about 10 cmm aspirated and sent forCEA, amylase, mutation studies and cytology. Cytology results are pending. 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 Fine needle aspirationperformed. - There was no sign of significant pathology in the main pancreatic duct. - There was no sign of significant pathology in the common bile duct. - There was no evidence of significant pathology in the left lobe of the liver. Recommendation: - Patient has a contact number available for emergencies. The signs and symptoms of potential delayed complications were discussed with thepatient. Return to normal activities tomorrow. Written discharge instructions were provided to thepatient. - Await cytology results and await tumor markers. - Return to referring physician as previously scheduled. Procedure Code(s): --- Professional --- 10586, Esophagogastroduodenoscopy, flexible, transoral; with transendoscopic ultrasound-guided intramural or transmural fine needle aspiration/biopsy(s), (includes endoscopicultrasound examination limited to the esophagus, stomach or duodenum, and adjacent structures) Diagnosis Code(s): --- Professional --- K86.2, Cyst of pancreas D49.0, Neoplasm of unspecified behavior ofdigestive system CPT copyright 2020 [employer]. All rights reserved. The codes documented in this report are preliminary and upon gerontology aide reviewmay be revised to meet current compliance requirements. Attending Participation: I personally performed the entire procedure. Todd Chairez MD 08/19/2022 3:09:46 PM This report has been signed electronically by: Todd Chairez MD Note Initiated On: 08/19/2022 1:56 PM Total Procedure Duration Time 0 hours 34 minutes 45 seconds Scope In: 2:12:52 PM Scope Out: 2:47:37 PM Walter Love MD ENDOSCOPY PROCE DUR ORDERABLES documented in this encounter Visit Diagnoses Diagnosis IPMN (intraductal papillary mucinous neoplasm)- Primary Neoplasm of unspecified nature of digestive system IPMN (intraductal papillary mucinous neoplasm) Neoplasm of unspecified nature of digestive system documented in this encounter Additional Health Concerns Assessment Noted Time A fall risk assessment has been complete d for the patient 07/13/2022 2:08 PM EDT documented as of this encounter
--- OUTSIDE RECORDS SUMMARY | 2023-11-14 01:05 | XMS_ITS | Encounter Summary ---
Author Organization [facility] Address [address], [address], [place] [address] Phone Care Team Providers Care Board Winder Name Role Phone Unavailable Primary Care Provider Unavailabl e Reason for Visit * Reason Comments 3RD RIGHT TOE CALLUS F/UP Encounter Details Date Type Department Care Team (Latest Contact Info) Description 07/13/2022 2:15 PM EDT Office Visit [facility] - Podiatry [address] [phone] Quinten Stuart, DPM [address] [address] Onychomycosis (Primary Dx); Congenital hammer toe of both feet; Keratoderma; Lopez's neuroma of both feet Social History Tobacco Use Types Packs/Day Years [...] suspected to have Coronavirus/COVID-19? No / Unsure 07/13/2022 1:50 PM EDT documented as of this encounter Progress Notes * Quinten Stuart DPM - 07/13/2022 2:15 PM EDT Images from the original note were not included. Podiatric Medicine and Surgery Provider: Quinten Stuart DPM Date: 07/13/2022 Patient: Gianna Infante Sex: female : 1945 Age: 76 y.o. Address: [address] [place] [id number] Primary Care Physician: Sydnee Ross DO Referred by: No ref. provider found Attending physician: Quinten Stuart DPM FACFAS Reason for Visit: No chief complaint on file. HPI: Gianna Infante is a 76 y.o. 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 These been present for the past several years they responded favorably to debridement last time. She is secondary concern with chronic fungal infections involving all pedalnails. He has been using mupirocin to the affected toenails without long-lasting relief. And finally she tells me that she has neuropathy having both lower extremities. Her toes go numb when she iscontinually walking. Patient Active Problem List Diagnosis Allergic to [...] lesion Diverticulosis Lung nodule Low back pain Past Surgical History: Procedure Laterality Date CATARACT EXTRACTION Bilateral 2020 CE-IOL OU JOINT REPLACEMENT 12/2018 & 05/2021 TOTAL KNEE ARTHROPLASTY Bilateral 2017 and 2021 VASCULAR SURGERY 1979?-Varicose vein stripping in both legs Allergies: Bee venom protein (honey bee); Fluoxetine; Estrogens, conjugated; Hymenoptera allergenic extract; Serotonin; and Wasp venom Immunization record: Immunization History Administered Date(s) Administered Influenza, Split (incl. purified surface antigen) 01/19/1993, 01/21/1994, 01/04/1995, 01/14/1996, 01/30/1997, 01/07/1998, 02/09/2001 Influenza, Unspecified 11/26/2014 Influenza, seasonal, injectable 01/25/2007, 01/16/2008, 01/16/2009, 01/09/2010, 01/25/2011 Influenza, seasonal, injectable, preservative free 01/24/2012, 01/01/2013, 03/15/2014 MMR 10/31/1991 Moderna SARS-CoV-2 Vaccination 01/17/2021, 07/16/2021 Novel [id number] 03/25/2009, 03/25/2009 Pneumococcal Polysaccharide PPV23 01/25/2011 TD (adult), 2 Lf tetanus toxoid, preservative free, adsorbed 07/27/2007 Tdap 02/13/2013 Zoster, live 03/27/2012 Current Outpatient Medications Medication Sig Dispense Refill ascorbic euhd-qckmmaij-ijv (Emergen-C) 1,000 mg powder effervescent in packet atorvastatin (Lipitor) 40 mg tablet Take 1 tablet (40 mg) by mouth once daily. 90 tablet 1 EPINEPHrine (Epipen) 0.3 mg/0.3 mL injection syringe Inject 0.3 mL (0.3 mg) as directed if needed for anaphylaxis. Call 911 after use. 1 each 0 ibuprofen 200 mg tablet magnesium 250 mg tablet melatonin 0.5 mg tablet split tablet multivit with minerals/lutein (MULTIVITAMIN 50 PLUS ORAL) omega 3-vqa-jmk-fish oil 1,000 mg (120 mg-180 mg) capsule polyvinyl alcohol-povidon,PF, (Refresh Classic, PF,) 1.4-0.6 % eye drops in a dropperette zoledronic acid/mannitol-water (RECLAST IV) Infuse into a venous catheter. No current facility-administered medications for this visit. Social History Socioeconomic History Marital status: Single Spouse name: Not on file Number of children: Not on file Years of education: Not on file Highest education level: Not on file Occupational History Not on file Tobacco Use Smoking status: Never Smokeless tobacco: Never Vaping Use Vaping status: Not on file Substance and Sexual Activity Alcohol use: Yes Alcohol/week: 4.0 standard drinks of alcohol Types: 4 Glasses of wine per week Comment: 4 per week average Drug use: Never Sexual activity: Not Currently Partners: Male control/protection: Post-menopausal Other Topics Concern Not on file Social History Narrative Not on file Social Determinants of Health Financial Resource Strain: Not on file Food Insecurity: Not on file Transportation Needs: Not on file Physical Activity: Not on file Stress: Not on file Social Connections: Not on file Intimate Partner Violence: Not on file Housing Stability: Not on file Family History Problem Relation Name Age of Onset Alcohol abuse Mother Amaris Infante Arthritis Mother Amaris Infante Depression Mother Amaris Infante Vision loss Mother Amaris Infante Cataracts Mother Amaris Infante Hip fracture Mother Amaris Infante Heart disease Father Hieu Infante Hypertension Father Hieu Infante Vision loss Father Hieu Infante Heart attack Father Hieu Infante Early natural Father Hieu Infante Family Status Relation Name Status Mother Amaris Infante (Not Specified) Father Hieu Infante (Not Specified) Review of Systems Physical Exam Foot and Ankle Exam: Vascular: 2/4 palpable dorsalis pedis and posterior tibial pulses bilaterally. Capillary refill time is within normal limits to all digits. Pedal hair growth is Present bilaterally. Dermatological: There are no open lesions or signs of infection noted bilaterally. There is a largepainful keratoderma on the tip of the third toe right foot. All nails are onychomycotic and grosslythickened. Neurological: Protective sensation is intact. There is a large palpable soft tissue mass involving the third interspace of both lower extremities suggestive of Lopez's neuroma syndrome. With percussion of this lesion were able to elicit sharp shooting pain. Musculoskeletal: There is 5 out of 5 muscle strength to all muscle groups crossing the ankle joint bilaterally. There are hammertoe contractures of the second through fifth toes of both feet. None ofthese lesions are readily reducible. Imaging: No image results found. Assessment: Diagnosis Plan 1. Onychomycosis 2. Congenital hammer toe of both feet Orthopaedics Follow Up Appointment Request Follow up providers: Me; Visit Mode: In-person 3. Keratoderma 4. Lopez's neuroma of both feet Plan: Discussed the etiology, conservative, and surgical modes of care for each pathology. Debrided all nails thoroughly. Debrided the callus thoroughly. Wear is broad toebox shoes as possible. We will suggest hammertoe repairs in the future if the lesion worsens. Follow-up: PRN XRs needed at follow-up: X-rays will not be necessary at follow-up Questions and concerns have been invited/addressed and the patient has a good understanding of the diagnosis, treatment plan, goals/expectations, and overall prognosis. Quinten Stuart DPM Diplomate, [place] [employer] Objective: There were no vitals taken for this visit. Estimated body mass index is 21.97 kg/m?? as calculated from the following: Height as of 07/08/22: 1.753 m (5' 9). Weight as of 07/08/22: 67.5 kg (148 lb 12.8 oz). ?? Underweight: BMI less than 18.5. ?? Normal weight: BMI between 18.5 and 24.9. ?? Overweight: BMI between 25 and 29.9. ?? Obese: BMI of 30 and above. documented in this encounter Plan of Treatment Upcoming Encounters Date Type Department Care Team (Late st Contact Info) Description 01/04/2024 11:20 AM EDT Procedure Visit [facility] [address] [facility] Medical Office [place] Floor 9 [place] [address] Katie Jones AUD 01/06/2024 2:00 PM EDT Appointment [facility] [address] [place] [address] 01/09/2024 2:00 PM EDT Office Visit [facility] [address] [facility] Medical Office [place] 19th Floor [address] [place] [address] Radha Coker MD [address] [place] [address] 01/10/2024 8:30 AM EDT [facility] [address] [facility] [address] [place] [address] Style, Sydnee Ndiaye, DO [address] [facility] [place] [address] 01/11/2024 10:00 AM EDT Office Visit [facility] - ENT & Facial Plastic Surgery [address] [place] [address] Kat Rico, PATTIE [address] [place] [address] 01/20/2024 11:45 AM EDT Clinical Support [facility] [address] [place] [address] Maria Eugenia Lucero, [facility] [address] [place] [address] 01/30/2024 8:40 AM EST Office Visit [facility] [address] [facility] [place] 15th Floor [address] [place] [address] Jose Monique MD 550 [facility] Office [place] 15th Floor, [address] [place] [address] 02/27/2024 12:50 PM EST Office Visit [facility] [address] 4 [address] [place] [phone] Kellie Bowser, OD [address] [facility], [address] [facility] [place] [address] 06/19/2024 11:30 AM EDT Appointment [facility] [address] [place] [address] 06/19/2024 1:00 PM EDT Appointment [facility] [address] [place] [address] 08/21/2024 1:40 PM EDT Office Visit [facility] at [address] [facility] [address] 3rd [place] [address] Satya Wright PA [address] 3rd [place] [address] 09/05/2024 10:30 AM EDT Office Visit [facility] [address] [place] [address] Tatiana Dominguez NP [address] [facility] [place] [address] documented as of this encounter Visit Diagnoses Diagnosis Onychomycosis- Primary Dermatophytosis of nail 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
--- OUTSIDE RECORDS SUMMARY | 2023-11-14 01:05 | XMS_ITS | Encounter Summary ---
Author Organization [facility] Address [address] [facility] , [place], [place] [address] Phone Care Team Providers Care White Sugar Supervisor Name Role Phone Unavailable Primary Care Provider Unavailabl e Encounter Details Date Type Department Care Team (Latest Contact Info) Description 08/17/2022 1:55 PM EDT - 08/17/2022 11:59 PM EDT Hospital Encounter [facility] [address] [place] [address] Discharge Disposition: DISCHARGED TO HOME OR SELF [...] suspected to have Coronavirus/COVID-19? No / Unsure 08/17/2022 1:11 PM EDT documented as of this encounter Medications at Time of Discharge Medication Sig Dispensed Refills Start Date End Date ascorbic kkfc-kaatiauy-fdv (Emergen-C) 1,000 mg powder effervescent in packet Take by mouth once daily. 03/28/2019 ibuprofen 200 mg tablet Take by mouth if needed. PRN 03/28/2021 multivit with minerals/lutein (MULTIVITAMIN 50 PLUS ORAL) Take by mouth once daily. 03/28/2022 omega 6-esp-ixx-fish oil 1,000 mg (120 mg-180 mg) capsule Take by mouth once daily. 03/28/2007 polyvinyl alcohol-povidon,PF, (Refresh Classic, PF,) 1.4-0.6 % eye drops in a dropperette 03/28/2019 zoledronic acid/mannitol-water (RECLAST IV) Infuse into a venous catheter Yearly. atorvastatin (Lipitor) 40 mg tablet Take 1 tablet (40 mg) by mouth once daily. 90 tablet 1 02/17/2022 10/28/2022 clotrimazole (Lotrimin) 1 % cream 11/26/2021 024 EPINEPHrine (Epipen) 0.3 mg/0.3 mL injection syringe Inject 0.3 mL (0.3 mg) as directed if needed for anaphylaxis. Call 911 after use. 1 each 07/08/2022 09/28/2022 LORazepam (Ativan) 1 mg tablet Take 1 tablet (1 mg) by mouth every 6 (six) hours if needed for anxiety for up to 1 day. Take one (1) tablet 1-2 hours prior to their MRI appointment. If still anxious, take 2nd tablet immediately prior to going into the MRI scanner 2 tablet 07/19/2022 09/21/2022 magnesium 250 mg tablet 03/28/2021 09/06/2023 melatonin 0.5 mg tablet split tablet 03/28/2019 09/06/19 24 documented as of this encounter Plan of Treatment Upcoming Encounters Date Type Department Care Team (Late st Contact Info) Description 01/04/2024 11:20 AM EDT Procedure Visit [facility] [address] [facility] Medical Office [place] Floor 9 [place] [address] Katie Jones AUD 01/06/2024 2:00 PM EDT Appointment [facility] [address] [place] [address] 01/09/2024 2:00 PM EDT Office Visit [facility] [address] [facility] Medical Office [place] 19th Floor [address] [place] [address] Radha Coker MD [address] [place] [address] 01/10/2024 8:30 AM EDT Office Visit [facility] Primary [facility] [address] [place] [address] Vandana, Sydnee Ndiaye, DO [address] [facility] [place] [address] 01/11/2024 10:00 AM EDT Office Visit [facility] - ENT & Facial Plastic Surgery [address] [place] [address] Kat Rico, PATTIE [address] [place] [phone] 01/20/2024 11:45 AM EDT Clinical Support [facility] [address] [place] [address] Maria Eugenia Lucero, [facility] [address] [place] [address] 01/30/2024 8:40 AM EST Office Visit [facility] [address] [facility] Medical Office [place] 15th Floor [address] [place] [address] Jose Monique MD 550 [facility] Office [place] 15th Floor, [address] [place] [address] 02/27/2024 12:50 PM EST Office Visit [facility] [address] 4 [address] [place] [phone] Kellie Bowser, OD [address], [address] [facility] [place] [address] 06/19/2024 11:30 AM EDT Appointment [facility] [address] [place] [address] 06/19/2024 1:00 PM EDT Appointment [facility] [address] [place] [address] 08/21/2024 1:40 PM EDT Office Visit [facility] [address] 3rd [place] [address] Satya Wright PA [address] 3rd [place] [address] 09/05/2024 10:30 AM EDT Office Visit [facility] [address] [place] [address] Tatiana Dominguez, [employer] [address] [place] [address] documented as of this encounter Procedures Procedure Name Priority Date/Time Associated Diagnosis Comments XR SPINE SURVEY/SCOLIOSIS 2-3 VIEWS Routine 08/17/2022 3:07 PM EDT Other idiopathic scoliosis, thoracolumbar region documented in this encounter Results * XR Spine Survey/Scoliosis 2-3 Views (08/17/2022 3:07 PM EDT) Anatomical Region Laterality Modality Whole spine Digital Radiogra phy Narrative 08/19/2022 4:59 PM EDT Imaging: AP, lateral, scoliosis radiographs performed 08/19/22 at [facility] are reviewed. ??These show good quality images. ??Soft tissue silhouettes are within normal limits. ??Normal-appearing bowel gas pattern. ??Bone density appears within normal limits. ?? Age-indeterminate but chronic appearing compression fracture T12. ??Mild apex left degenerative scoliosis with mild cervicothoracic scoliosis. ??Multilevel spondylosis with straightening of the cervical spine. Earl Flynn MD IMG XR PROCEDURE S documented in this encounter Visit Diagnoses Not on filedocumented in this encounter Additional Health Concerns Assessment Noted Time A fall risk assessment has been complete d for the patient 08/17/2022 2:12 PM EDT documented as of this encounter
--- OUTSIDE RECORDS SUMMARY | 2023-11-14 01:05 | XMS_ITS | Encounter Summary ---
Author Organization [facility] Address [address], [place] [address] Phone Care Team Providers Care Copy Chaser Name Role Phone Unavailable Primary Care Provider Unavailabl e Encounter Details Date Type Department Care Team (Late st Contact Info) Description 06/01/2022 Telephone [facility] [phone] Walter Love MD [address] [facility] 5, [address] [place] [phone] Social History Tobacco Use Types Packs/Day Years Used Date Smoking Tobacco: Never Smokeless Tobacco: Never Alcohol Use Standard Drinks/Week Comments Yes 4 (1 standard drink = 0.6 oz pur e alcohol) 4 per week average PHQ-2 Answer Date Recorded Patient Health Questionnaire-2 Score 1 05/27/2022 Sex and Gender Information Value Date Recorded [...] suspected to have Coronavirus/COVID-19? No / Unsure 06/17/2022 2:56 PM EDT documented as of this encounter Miscellaneous Notes * Telephone Encounter - Maya Floresjose j - 06/01/2022 4:17 PM EST Patient states Radiology advised they have not received order for MRI; requests order for MRI from Dr. Love and call back from nurse for confirmation of order on system; to know when to call back to Radiology and get scheduled for test documented in this encounter Plan of Treatment Upcoming Encounters Date Type Department Care Team (Late st Contact Info) Description 01/04/2024 11:20 AM EDT Procedure Visit [facility] [address] [facility] Medical Office [place] Floor 9 [place] [address] Katie Jones, LISA 01/06/2024 2:00 PM EDT Appointment [facility] [address] [place] [address] 01/09/2024 2:00 PM EDT Office Visit [facility] [address] [facility] Medical Office [place] 19th Floor [address] [place] [address] Radha Coker MD [address] [place] [address] 01/10/2024 8:30 AM EDT Office Visit [facility] [address] [place] [address] Vandana, Sydnee Ndiaye, DO [address] [facility] [place] [address] 01/11/2024 10:00 AM EDT Office Visit [facility] - ENT & Facial Plastic Surgery [address] [facility] [address] [place] [address] Kat Rico, PATTIE [address] [place] [address] 01/20/2024 11:45 AM EDT Clinical Support [facility] [address] [place] [address] Maria Eugenia Lucero LAC [address] [place] [address] 01/30/2024 8:40 AM EST Office Visit [facility] [address] [facility] [place] 15th Floor [address] [place] [address] Jose Monique MD 550 [facility] Medical Office [place] 15th Floor, [address] [place] [address] 02/27/2024 12:50 PM EST Office Visit [facility] [address] [facility] Floor 4 [address] [place] [address] Kellie Bowser, OD [address] [facility] [address] 4, [address] [facility] [place] [address] 06/19/2024 11:30 AM EDT Appointment [place] [address] [address] 06/19/2024 1:00 PM EDT Appointment [place] [address] [address] 08/21/2024 1:40 PM EDT Office Visit [facility] [address] 3rd [place] [address] Satya Wright PA [address] [facility] 3rd [place] [address] 09/05/2024 10:30 AM EDT Office Visit [facility] [address] [place] [address] Tatiana Dominguez, KASH [address] [place] [address] documented as of this encounter Visit Diagnoses Not on filedocumented in this encounter Additional Health Concerns Assessment Noted Time A fall risk assessment has been complete d for the patient 06/01/2022 2:09 PM EST documented as of this encounter
--- OUTSIDE RECORDS SUMMARY | 2023-11-14 01:05 | XMS_ITS | Encounter Summary ---
Author Organization [facility] Address [address] [place] [address], [place] [address] Phone Care Team Providers Care Roofer Apprentice Name Role Phone Unavailable Primary Care Provider Unavailabl e Reason for Visit * Reason Comments Annual Exam Encounter Details Date Type Department Care Team (Late st Contact Info) Description 07/22/2022 10:50 AM EDT Office Visit [facility] [address] [facility] [address] [address] [place] [phone] Kellie Bowser, OD [address] [address] [facility] [place] [address] 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 No / Unsure 07/22/2022 10:43 AM EDT documented as of this encounter Progress Notes * Kellie Bowser, OD - 07/22/2022 10:50 AM EDT Subjective Patient ID: Gianna Ifnante is a 76 y.o. female. Chief Complaint Annual Exam HPI Patient states she prefers for doctor to do everything due to this being her second time back Last edited by Robina Meyer on 07/22/2022 11:00 AM. No current outpatient medications on file. (Ophthalmic Drugs) Current Outpatient Medications (Other) Medication Sig ascorbic kshp-[id number]-[id number] (Emergen-C) 1,000 mg powder effervescent in packet atorvastatin (Lipitor) 40 mg tablet Take 1 tablet (40 mg) by mouth once daily. EPINEPHrine (Epipen) 0.3 mg/0.3 mL injection syringe Inject 0.3 mL (0.3 mg) as directed if needed for anaphylaxis. Call 911 after use. ibuprofen 200 mg tablet magnesium 250 mg tablet melatonin 0.5 mg tablet split tablet multivit with minerals/lutein (MULTIVITAMIN 50 PLUS ORAL) omega 7-oww-ggt-fish oil 1,000 mg (120 mg-180 mg) capsule polyvinyl alcohol-povidon,PF, (Refresh Classic, PF,) 1.4-0.6 % eye drops in a dropperette zoledronic acid/mannitol-water (RECLAST IV) Infuse into a venous catheter. LORazepam (Ativan) 1 mg tablet Take 1 tablet (1 mg) by mouth every 6 (six) hours if needed for anxiety for up to 1 day. Take one (1) tablet 1-2 hours prior to their MRI appointment. If still anxious,take 2nd tablet immediately prior to going into the MRI scanner Objective Base Eye Exam Visual Acuity (Snellen - Linear) Right Left Dist cc 20/20 20/25 -2 Correction: Glasses Tonometry (I Care (rebound tonometry), 11:03 AM) Right Left Pressure 19 20 Pupils Pupils Dark Light Shape React APD Right PERRL 3 2 Round Brisk None Left PERRL 3 2 Round Brisk None Visual Adkins (Counting fingers) Left Right Full Full Extraocular Movement Right Left Full, Ortho Full, Ortho Neuro/Psych Oriented x3: Yes Mood/Affect: Normal Refraction Wearing Rx Sphere Cylinder [place] Add Right -2.75 +1.25 109 +2.75 Left -3.25 +1.50 083 +2.75 Type: broke specs Wearing Rx #2 Sphere [place]ylinder [place] Add Right -2.75 +1.25 118 +2.75 Left -3.50 +1.75 094 +2.75 Type: PAL Wearing Rx Comments sunglasses Manifest Refraction Sphere Cylinder [place] Dist [place] Add Right -2.75 +1.00 112 20/20 +2.50 Left -3.25 +1.75 083 20/25- +2.50 Patient prefers for doctor to do refraction today not techs Final Rx Sphere Cylinder [place] Dist [place] Add Right -2.75 +1.00 112 20/20 +2.50 Left -3.25 +1.75 083 20/25- +2.50 Expiration Date: 07/23/2023 Comments: Rx was double checked by AVW and put in a trial frame - patient walked around and was happy with vision at distance and happy at near. Please remake OU Assessment/Plan Problem List Items Addressed This Visit Eye/Vision problems Macular pucker, left eye Relevant Orders Ophthalmology Follow Up Appointment Request Visit Mode: In-person; Follow up providers: (IOP/DFE+ mac oct in 6 months with AVW) Myopia of both eyes with astigmatism and presbyopia - Primary Rx double checked by AVW and put in trial frame. Patient walked around in Rx and was very happy - did not appreciate +0.25 both eyes (OU) which she did somewhat like behind phoropter. At near - very happy with vision Remake both eyes (OU) -took her to optical to discuss. Follow up: 6 months full exam/mac OCT with AVW Follow Up Appointment Requests Future Orders Schedule follow-up for Ophthalmology Follow Up Appointment Request Visit Mode: In-person; Follow up providers: (IOP/DFE+ mac oct in 6 months with AVW) 01/21/2023 (Approximate) Questions: Visit Mode: In-person Follow up providers: Comment - IOP/DFE + mac oct in 6 months with AVW Reason for follow up: documented in this encounter Miscellaneous Notes * Assessment & Plan Note - Kellie Bowser Josiane, OD - 07/22/2022 12:15 PM EDT Associated Problem(s): Myopia of both eyes with astigmatism and presbyopia Rx double checked by AVW and put in trial frame. Patient walked around in Rx and was very happy - did not appreciate +0.25 both eyes (OU) which she did somewhat like behind phoropter. At near - very happy with vision Remake both eyes (OU) -took her to optical to discuss. Follow up: 6 months full exam/mac OCT with AVW documented in this encounter Plan of Treatment Upcoming Encounters Date Type Department Care Team (Late st Contact Info) Description 01/04/2024 11:20 AM EDT Procedure Visit [facility] [address] [facility] [place] Floor 9 [place] [phone] Katie Jones AUD 01/06/2024 2:00 PM EDT Appointment [facility] [address] [place] [address] 01/09/2024 2:00 PM EDT Office Visit [facility] [address] [facility] [place] 19th [address] [place] [address] Radha Coker MD [address] [place] [address] 01/10/2024 8:30 AM EDT Office Visit [facility] Care [address] [place] [address] Sydnee Ross, [address] [facility] [place] [address] 01/11/2024 10:00 AM EDT Office Visit [facility]NT [facility] Facial Plastic Surgery [address] [place] [address] Kat Rico PA [address] [place] [address] 01/20/2024 11:45 AM EDT Clinical Support [facility] [address] [place] [address] Maria Eugenia Lucero, [facility] [address] [place] [address] 01/30/2024 8:40 AM EST Office Visit [facility] [address] [facility] [place] 15[address] [place] [address] Jose Monique MD [address] [facility] [place] 15th Floor, [address] [place] [address] 02/27/2024 12:50 PM EST Office Visit [facility] [address] [facility] [address] [place] [phone] Kellie Bowser, OD [address] [facility] [address] [address], [address] [facility] [place] [address] 06/19/2024 11:30 AM EDT Appointment [facility] [address] [place] [address] 06/19/2024 1:00 PM EDT Appointment [facility] [address] [place] [address] 08/21/2024 1:40 PM EDT Office Visit [facility] [employer] [address] [facility] [address] 3rd [place] [address] Satya Wright PA [address] [facility] [address] [place] [address] 09/05/2024 10:30 AM EDT Office Visit [facility] [address] [place], [place] [id number] Tatiana Dominguez, KASH [address] [place] [place], [place] [phone] documented as of this encounter Visit Diagnoses Diagnosis Myopia of both eyes with astigmatism and presbyopia- Primary Macular pucker, left eye Macular puckering of retina documented in this encounter Additional Health Concerns Assessment Noted Time A fall risk assessment has been complete d for the patient 07/13/2022 2:08 PM EDT documented as of this encounter
--- OUTSIDE RECORDS SUMMARY | 2023-11-14 01:05 | XMS_ITS | Encounter Summary ---
Author Organization [facility] Address [address] [place], [place] [address] Phone Care Team Providers Care Sky Line Yarder Name Role Phone Unavailable Primary Care Provider Unavailabl e Encounter Details Date Type Department Care Team (Latest Contact Info) Description 06/17/2022 3:03 PM EDT - 06/17/2022 11:59 PM EDT Hospital Encounter [place] [id number] [facility] [address] [place] [address] Encounter for screening mammogram for malignant neoplasm [...] Dispensed Refills Start Date End Date ascorbic zdnw-horydtvm-tzs (Emergen-C) 1,000 mg powder effervescent in packet Take by mouth once daily. 03/28/2019 ibuprofen 200 mg tablet Take by mouth if needed. PRN 03/28/2021 multivit with minerals/lutein (MULTIVITAMIN 50 PLUS ORAL) Take by mouth once daily. 03/28/2022 omega 5-gwr-umf-fish oil 1,000 mg (120 mg-180 mg) capsule Take by mouth once daily. 03/28/2007 polyvinyl alcohol-povidon,PF, (Refresh Classic, PF,) 1.4-0.6 % eye drops in a dropperette 03/28/2019 zoledronic acid/mannitol-water (RECLAST IV) Infuse into a venous catheter Yearly. atorvastatin (Lipitor) 40 mg tablet Take 1 tablet (40 mg) by mouth once daily. 90 tablet 1 02/17/2022 10/28/2022 clotrimazole (Lotrimin) 1 % cream 11/26/2021 09/06/2023 magnesium 250 mg tablet 03/28/202108/26 melatonin 0.5 mg tablet split tablet 03/28/2019 09/06/2023 omeprazole (PriLOSEC) [address] capsule Take 1 capsule (40 mg) by mouth before breakfast. Do not crush or chew. 30 capsule 2 04/06/2022 07/08/2022 vitamin K2 40 mcg tablet Take by mouth. 07/08/2022 documented as of this encounter Plan of Treatment Upcoming Encounters Date Type Department Care Team (Late st Contact Info) Description 01/04/2024 11:20 AM EDT Procedure Visit [facility] [address] [facility] [place] [address] [place] [phone] Katie Jones AUD 01/06/2024 2:00 PM EDT Appointment [facility] [address] [place] [address] 01/09/2024 2:00 PM EDT Office Visit [facility] [address] [facility] Medical Office [place] 19th Floor [address] [place] [address] Radha Coker MD [address] [place] [address] 01/10/2024 8:30 AM EDT Office Visit [facility] - Primary Care [address] [place] [address] Vandana, Sydnee Ndiaye, [address] [facility] [place] [address] 01/11/2024 10:00 AM EDT Office Visit [facility] - ENT & Facial Plastic Surgery [address] [place] [address] Kat Rico, PATTIE [address] [place] [address] 01/20/2024 11:45 AM EDT Clinical Support [facility] [address] [facility] [place] [place] [address] Maria Eugenia Lucero, ORA [address] [place] [address] 01/30/2024 8:40 AM EST Office Visit [facility] [address] [facility] [place] 15th [address] [place] [address] Jose Monique MD [address] [facility] Office [place] 15th Floor, [address] [place] [address] 02/27/2024 12:50 PM EST Office Visit [facility] [address] [facility] [address] [place] [phone] Kellie Bowser, OD [address] [facility] [address] [facility] [place] [address] 06/19/2024 11:30 AM EDT Appointment [facility] [address] [place] [address] 06/19/2024 1:00 PM EDT Appointment [facility] [address] [place] [address] 08/21/2024 1:40 PM EDT Office Visit [facility] at [address] [facility] [address] 3rd [place] [address] Satya Wright PA [address] 3rd [place] [address] 09/05/2024 10:30 AM EDT Office Visit [facility] [address] [place] [address] Tatiana Dominguez NP [address] [place] [address] documented as of this encounter Procedures Procedure Name Priority Date/Time Associated Diagnosis Comments BI MAMMOGRAM SCREENING TOMOSYNTHESIS BILATERAL W CAD STND PROTOCOL Routine 06/17/2022 3:54 PM EDT Encounter for screening mammogram for malignant neoplasm of breast documented in this encounter Results * BI Mammogram Screening Tomosynthesis Bilateral W CAD Standard Protocol (06/17/2022 3:54 PM EDT) Anatomical Region Laterality Modality Breast Bilateral Mammography 06/22/2022 9:57 AM EDT Impressions 06/22/2022 9:57 AM EDT There is no mammographic evidence of malignancy. Bilateral mammogram in 1 year is recommended. BI-RADS Category 1: Negative - No evidence of cancer. Narrative 06/22/2022 9:57 AM EDT HISTORY: Patient is 76 years old and is seen for screening. FILMS COMPARED: No prior imaging studies are available for comparison. MAMMOGRAM FINDINGS: The following mammographic views were obtained: bilateral craniocaudal, bilateral mediolateral oblique, and bilateral tomosynthesis. ??Computer-aided detection was utilized by the radiologist in the interpretation of this examination. There are scattered fibroglandular densities. No suspicious masses, calcifications or other abnormalities are seen. Procedure Note Magdi Alatorre - 06/22/2022 HISTORY: Patient is 76 years old and is seen for screening. FILMS COMPARED: No prior imaging studies are available for comparison. MAMMOGRAM FINDINGS: The following mammographic views were [...] Negative - No evidence of cancer. Sydnee Ndiaye Style DO IMG BI PROCEDURES documented in this encounter Visit Diagnoses Diagnosis Encounter for screening mammogram for malignant neoplasm of breast documented in this encounter Additional Health Concerns Assessment Noted Time A fall risk assessment has been complete d for the patient 06/01/2022 2:09 PM EST documented as of this encounter
--- OUTSIDE RECORDS SUMMARY | 2023-11-14 01:05 | XMS_ITS | Encounter Summary ---
Author Organization [facility] Address [address], [address], [place] [address] Phone Care Team Providers Care Credit Relationship Manager Name Role Phone Unavailable Primary Care Provider Unavailabl e Reason for Referral * Consultation (Routine) - Closed Specialty Diagnoses / Procedures Referred By Farrah shook Referred To Contact Neurology Diagnoses Memory change Procedures [facility] ASSMT&IVNTJ INDIV EACH 15 MA [facility] RE-ASSMT&IVNTJ INDIV EA 15 M Sydnee Ross DO [address] [place] [address] Referral ID Status Reason Start Date Expiration Date V isits Requested Visits Authorized [id number] Closed Specialty Services Required 09/21/2022 09/21/2023 1 1 Scheduling Instructions Please call [phone] to schedule. Reason for Visit * Reason Comments Follow-up Encounter Details Date Type Department Care Team (Late st Contact Info) Description 09/21/2022 10:30 AM EDT Office Visit [facility] [address] [place] [address] Sydnee Ross DO [address] [place] [address] Urinary urgency (Primary Dx); Anxiety; Memory change; DDD (degenerative disc disease), cervical; Pancreatic mass; Skin lesion Social History Tobacco Use Types Packs/Day [...] Sign Reading Time Taken Comments Blood Pressure 138/88 09/21/2022 10:19 AM EDT Pulse 63 09/21/2022 10:19 AM EDT Temperature 36.7 ??C (98 ??F) 09/21/2022 10:19 AM EDT Respiratory Rate 16 09/21/2022 10:19 AM EDT Oxygen Saturation 96% 09/21/2022 10:19 AM EDT Inhaled Oxygen Concentration - - Weight 67.3 kg (148 lb 6.4 oz) 09/21/2022 10:19 AM EDT Height 176.5 cm (5' 9.5) 09/21/2022 10:19 AM ED T Body Mass Index 21.6 09/21/2022 10:19 AM EDT documented in this encounter Progress Notes * Style, Sydnee Ndiaye, - 09/21/2022 10:30 AM EDT Subjective Patient ID: Gianna Infante is a 76 y.o. female who presents for Follow-up. HPI Had EUS/FNA pancreatic mass: neg malignant cells. Follow up 6-12 months for repeat scan. Neck pain -following with Dr. Giles. Planning to discuss injections. Stopped PT-ROM improved, pain not controlled. MRI: IMPRESSION: 1. Significantly limited study given patient motion on the axial images. 2. Straightening of the normal cervical lordosis with 1 mm anterolisthesis of C3 on C4 and C4 on C5. 3. Multilevel degenerative disc disease, as above, with mild mass effect on the cord at C4-C5 and C5-C6 but no cord signal abnormality. Multilevel neural foramina narrowing also seen. Was concerned for elevated bp's. Home bp's: 110-130s/60-70s Sensation urinary urgency. Low abd pressure. No f/c, flank pain, hematuria Skin lesion left side of face, temporal region. Itchy, has upcoming appt with derm Anxiety: Has been doing therapy which has been helping. Interested in starting medications. Did nottolerate ssri's in the past, felt more claustrophobic. Past meds: Trazodone, prozac, paxil Memory impairment: Had MRI which was overall unremarkable and saw cognitive specialist in [place]. 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 currently seeing therapist. Would like re-eval for memory. Feels like she forgets words and names when she is in the middle of a sentence. Able to drive, shop, finances etc. Review of Systems All other systems reviewed and are negative. Visit Vitals BP 138/88 (BP Location: Left arm, Patient Position: Sitting, BP Cuff Size: Adult) Pulse 63 Temp 36.7 ??C (98 ??F) (Temporal) Resp 16 Objective Physical Exam Vitals reviewed. Constitutional: Appearance: Normal appearance. HENT: Head: Normocephalic and atraumatic. Right Ear: Tympanic membrane, ear canal and external ear normal. Left Ear: Tympanic membrane, ear canal and external ear normal. Nose: Nose normal. Mouth/Throat: Mouth: Mucous membranes are moist. Pharynx: Oropharynx is clear. Eyes: Extraocular Movements: Extraocular movements intact. Conjunctiva/sclera: Conjunctivae normal. Pupils: Pupils are equal, round, and reactive to light. Cardiovascular: Rate and Rhythm: Normal rate and regular rhythm. Pulses: Normal pulses. Heart sounds: Normal heart sounds. No murmur heard. No friction rub. No gallop. Pulmonary: Effort: Pulmonary effort is normal. Breath sounds: Normal breath sounds. Abdominal: General: Abdomen is flat. Bowel sounds are normal. There is no distension. Palpations: Abdomen is soft. There is no mass. Tenderness: There is no abdominal tenderness. There is no right CVA tenderness, left CVA tenderness, guarding or rebound. Musculoskeletal: Cervical back: Normal range of motion and neck supple. Right lower leg: No edema. Left lower leg: No edema. Skin: General: Skin is warm. Comments: Left temporal area- 0.5cm pink lesion Neurological: General: No focal deficit present. Mental Status: She is alert. Psychiatric: Mood and Affect: Mood normal. Behavior: Behavior normal. Thought Content: Thought content normal. Judgment: Judgment normal. Mini cog: clock drawing intact, 1/3 word recall Assessment/Plan 1. Urinary urgency Urine dip neg. Send for cx. Recommend limiting caffeine intake and kegel exercises. - Urine Culture; Future - POCT Urinalysis Dipstick Manually Resulted (non-auto) - Urinalysis Microscopic; Future - Urinalysis; Future 2. Anxiety Start cymbalta 30mg daily x 1 week. Increase to cymbalta 60mg thereafter. SE discussed. Continue therapy 3. Memory change Pt had evaluation in the past with neurolocognitive clinic in [place]-records/ MRI report scanned into system. Recheck labs. Refer to neurocog. clinic - Ambulatory referral to Neurology (Cognitive Clinic); Future - Complete Blood Count; Future - Comprehensive Metabolic Panel; Future - Vitamin B12 Level; Future - Thyroid Stimulating Hormone with reflex to Free Thyroxine; Future 4. DDD (degenerative disc disease), cervical Has follow up with spine physician 5. Pancreatic mass Recent neg FNA. Close follow up with GI 6. Skin lesion Could be [place], agree with derm eval documented in this encounter Plan of Treatment Upcoming Encounters Date Type Department Care Team (Late st Contact Info) Description 01/04/2024 11:20 AM EDT Procedure Visit [facility] [address] [place] Medical Office [place] [address] [place] [phone] Katie Jones AUD 01/06/2024 2:00 PM EDT Appointment [facility] [address] [place] [address] 01/09/2024 2:00 PM EDT Office Visit [facility] [address] [facility] Medical Office [place] 19th [address] [place] [address] Radha Coker MD [address] [place] [address] 01/10/2024 8:30 AM EDT Office Visit [facility] Primary [facility] [address] [place] [address] Style, Sydnee Ndiaye, DO [address] [facility] [place] [address] 01/11/2024 10:00 AM EDT Office Visit [facility] - ENT & [facility]ial Plastic Surgery [address] [place] [address] Kat Rico, PA [address] [place] [address] 01/20/2024 11:45 AM EDT Clinical Support [facility] [address] [place] [address] Maria Eugenia Lucero, [facility] [address] [place] [address] 01/30/2024 8:40 AM EST Office Visit [facility] [address] [facility] Medical Office [place] 15th [address] [place] [address] Jose Monique MD [address] [facility] Office [place] 15th [address], [address] [place] [address] 02/27/2024 12:50 PM EST Office Visit [facility] [address] [place] [address] Kellie Bowser, OD [address] [facility] [place] [address] 06/19/2024 11:30 AM EDT Appointment [facility] [address] [place] [address] 06/19/2024 1:00 PM EDT Appointment [facility] [address] [place] [address] 08/21/2024 1:40 PM EDT Office Visit [facility] at [address] [place] [address] NE 3rd [place] [address] Satya Wright PA [address] 3rd [place] [address] 09/05/2024 10:30 AM EDT Office Visit [facility] [address] [place] [address] Tatiana Dominguez, KASH [address] [place] [address] Scheduled Referrals Name Type Priority Associated Diagnoses Order Schedule Ambulatory referral to Neurology (Cognitive Clinic) Outpatient Referral Routine Memory change Expected: 09/21/2022 (Approximate), Expires: 09/22/2023 documented as of this encounter Procedures Procedure Name Priority Date/Time Associated Diagnosis Comments POCT URINALYSIS DIPSTICK NON-AUTO Routine 09/21/2022 11:19 AM EDT Urinary urgency documented in this encounter Results * Thyroid Stimulating Hormone with reflex to Free Thyroxine (09/21/2022 11:42 AM EDT) TSH Reflex Order 1.39 0.45 - 5.33 mcIU/mL LAB CHEMISTRY METHOD 09/21/2022 8:03 PM EDT [facility] Comment: : ? First Trimester: 0.05-3.70 mcIU/mL ? Second Trimester: ?0.31-4.35 mcIU/mL ? Third Trimester: 0.41-5.18 mcIU/mL Blood Venous blood specimen / Unknown Venipuncture / Unknown 09/21/2022 11:42 AM EDT 09/21/2022 11:42 AM EDT Sydnee Zelda Style DO LAB BLOOD ORDERABLE S Performing Organization Address [facility] de Phone Number [facility] [address] [place] [address] * Vitamin B12 Level (09/21/2022 11:42 AM EDT) Vitamin B12 Level 717 180 - 914 pg/mL LAB CHEMISTRY METHOD 09/21/2022 8:12 PM EDT [facility] Comment:Intrinsic factor blo cking antibodies are [...] LAB BLOOD ORDERABLE S Performing Organization Address [facility] Co de Phone Number [facility] [address] [place] [address] * Comprehensive Metabolic Panel (09/21/2022 11:42 AM EDT) Sodium 139 136 - 145 mmol/L LAB CHEMISTRY METHOD 09/21/2022 5:47 PM EDT [facility] Potassium 4.3 3.5 - 5.1 mmol/L LAB CHEMISTRY METHOD 09/21/2022 5:47 PM EDT [facility] Chloride 102 98 - 107 mmol/L LAB CHEMISTRY METHOD 09/21/2022 5:47 PM EDT [facility] Carbon Dioxide Level 29 23 - 29 mmol/L LAB CHEMISTRY METHOD 09/21/2022 5:47 PM EDT [facility] Calcium Level Total 9.8 8.6 - 10.3 mg/dL LAB CHEMISTRY METHOD 09/21/2022 5:47 PM EDT [facility] Blood Urea Nitrogen 12 7 - 25 mg/dL LAB CHEMISTRY METHOD 09/21/2022 5:47 PM EDT [facility] Creatinine 0.65 0.60 - 1.20 mg/dL LAB CHEMISTRY METHOD 09/21/2022 5:47 PM EDT [facility] Glucose 86 70 - 105 mg/dL LAB CHEMISTRY METHOD 09/21/2022 5:47 PM EDT [facility] Comment: Random Glucose* Diabetes is diagnosed at blood glucose of greater than or equal to 200 mg/dL Fasting Glucose* Normal: less than 100 mg/dL Prediabetes: 100 mg/dl to 125 mg/dL Diabetes: 126 mg/dL or higher *ADA guidelines Protein Total 6.9 6.4 - 8.9 gm/dL LAB CHEMISTRY METHOD 09/21/2022 5:47 PM EDT [facility] Albumin Level 4.4 3.5 - 5.7 gm/dL LAB CHEMISTRY METHOD 09/21/2022 5:47 PM EDT [facility] Alkaline Phosphatase 44 34 - 104 unit/L LAB CHEMISTRY METHOD 09/21/2022 5:47 PM EDT [facility] Alanine Aminotransferase 38 7 - 52 unit/L LAB CHEMISTRY METHOD 09/21/2022 5:47 PM EDT [facility] Aspartate Aminotransferase 31 13 - 39 unit/L LAB CHEMISTRY METHOD 09/21/2022 5:47 PM EDT [facility] Total Bilirubin 0.6 0.3 - 1.0 mg/dL LAB CHEMISTRY METHOD 09/21/2022 5:47 PM EDT [facility] Anion Gap 8 2 - 11 mmol/L LAB CHEMISTRY METHOD 09/21/2022 5:47 PM EDT [facility] Calculated Osmolality 278 275 - 295 mOsm/kg LAB CHEMISTRY METHOD 09/21/2022 5:47 PM EDT [facility] U:C 18 7 - 21 LAB CHEMISTRY METHOD 09/21/2022 5:47 PM EDT [facility] Estimated GFR 87 >=60 mL/min/1. 73m2 LAB CHEMISTRY METHOD 09/21/2022 5:47 PM EDT [facility] Comment: The eGFR is calculated with [...] 1. Based on review of evidence, the [facility] [place] made the decision to stop reporting eGFR by race effective 09/03/2020. Blood Venous blood specimen / Unknown Venipuncture / Unknown 09/21/2022 11:42 AM EDT 09/21/2022 11:42 AM EDT Sydnee Zelda Style DO LAB BLOOD ORDERABLE S [facility] [address] [place] [address] * (ABNORMAL) Urinalysis (09/21/2022 11:42 AM EDT) Color Yellow Colorless, Straw, Yellow LAB URINALYSIS - AUTOMATED METHOD 09/22/2022 2:44 PM EDT [facility] Clarity Clear Clear LAB URINALYSIS - AUTOMATED METHOD 09/22/2022 2:44 PM EDT [facility] Specific Keiser Urine 1.005 1.005 - 1.030 LAB URINALYSIS - AUTOMATED METHOD 09/22/2022 2:44 PM EDT [facility] pH Urine Random 6.0 5.0, 6.0, 7.0, 8.0 LAB URINALYSIS - AUTOMATED METHOD 09/22/2022 2:44 PM EDT [facility] Protein Urine Qualitative Negative Negative mg/dL LAB URINALYSIS - AUTOMATED METHOD 09/22/2022 2:44 PM EDT [facility] Glucose Urine Qualitative Negative Negative mg/dL LAB URINALYSIS - AUTOMATED METHOD 09/22/2022 2:44 PM EDT [facility] Ketone Urine Qualitative Negative Negative mg/dL LAB URINALYSIS - AUTOMATED METHOD 09/22/2022 2:44 PM EDT [facility] Blood Urine Qualitative Negative Negative LAB URINALYSIS - AUTOMATED METHOD 09/22/2022 2:44 PM EDT [facility] Ascorbic Acid Urine Qualitative Positive(A) Negative LAB URINALYSIS - AUTOMATED METHOD 09/22/2022 2:44 PM EDT [facility] Comment:A positive Ascorbic Acid may interfere with the detection of blood, glucose, nitrite, and bilirubin. Urobilinogen Urine Qualitative <2.0 <2.0, 2.0 mg/dL mg/dL LAB URINALYSIS - AUTOMATED METHOD 09/22/2022 2:44 PM EDT [facility] Nitrite Urine Qualitative Negative Negative LAB URINALYSIS - AUTOMATED METHOD 09/22/2022 2:44 PM EDT [facility] Leukocyte Esterase Urine Qual Negative Negative LAB URINALYSIS - AUTOMATED METHOD 09/22/2022 2:44 PM EDT [facility] Bilirubin Urine Qualitative Negative Negative LAB URINALYSIS - AUTOMATED METHOD 09/22/2022 2:44 PM EDT [facility] Urine Urine specimen obtained by clean catch procedure / Unknown Non-blood Collection / Unknown 09/21/2022 11:42 AM EDT 09/21/2022 11:42 AM EDT Sydnee Ndiaye Style DO LAB URINE ORDERABLE S Performing Organization Address City/State/[facility] Co de Phone Number [facility] [address] [place] [address] * Urinalysis Microscopic (09/21/2022 11:42 AM EDT) RBC/HPF <1 <=2 /HPF LAB URINALYSIS - AUTOMATED METHOD 09/22/2022 2:44 PM EDT [facility] WBC/HPF <1 <=5 /HPF LAB URINALYSIS - AUTOMATED METHOD 09/22/2022 2:44 PM EDT [facility] Urine Urine specimen obtained by clean catch procedure / Unknown Non-blood Collection / Unknown 09/21/2022 11:42 AM EDT 09/21/2022 11:42 AM EDT Screenz DO LAB URINE ORDERABLE S [facility] [address] [place] [address] * Urine Culture (09/21/2022 11:42 AM EDT) Pathologist [facility] Urine Culture No growth DAVONTE INTERP 09/24/2022 10:00 AM EDT [facility] Urine Urine specimen obtained by clean catch procedure / Unknown Non-blood Collection / Unknown 09/21/2022 11:42 AM EDT 09/21/2022 11:42 AM EDT [employer] DO LAB MICROBIOLOGY - GENERAL ORDERABLES [facility] [address] [place] [address] * (ABNORMAL) POCT Urinalysis Dipstick Manually Resulted (non-auto) (09/21/2022 11:19 AM EDT) Color, UA Other(A) Yellow Clarity, UA Clear Clear Glucose, UA Negative Negative mg/dL Bilirubin, UA Negative Negative Ketones, UA Negative Negative Spec Grav, UA 1.010 1.002 - 1.035 Blood Urine, Qualitative Negative Negative pH, UA 6.5 5.0 - 8.0 Protein, UA Negative Negative Urobilinogen, UA 0.2 0.2 - 1.0 EU Nitrite, UA Negative Negative Leukocytes, UA Negative Negative Urine 09/21/2022 11:1 9 AM EDT Sydnee Zelda Style DO POINT OF CARE TEST ENTER/EDIT ORDERABLES documented in this encounter Visit Diagnoses Diagnosis Urinary urgency- Primary Urgency of urination Anxiety Anxiety state, unspecified Memory change Memory loss DDD (degenerative disc disease), cervical Degeneration of cervical intervertebral disc Pancreatic mass Unspecified disease of pancreas Skin lesion Unspecified disorder of skin and subcutaneous tissue documented in this encounter Additional Health Concerns Assessment Noted Time A fall risk assessment has been complete d for the patient 09/21/2022 10:24 AM EDT documented as of this encounter
--- OUTSIDE RECORDS SUMMARY | 2023-11-14 01:05 | XMS_ITS | Encounter Summary ---
Author Organization [facility] Address [address], [address], [place] [address] Phone Care Team Providers Care Joist Setter Name Role Phone Unavailable Primary Care Provider Unavailabl e Encounter Details Date Type Department Care Team (Late st Contact Info) Description 07/19/2022 Orders Only [facility] [address] [facility] [address] [place] [address] Walter Conrad MD [address] [place] [address] Social History Tobacco Use Types Packs/Day Years [...] Progress Notes * Walter Conrad MD - 07/19/2022 4:40 PM EDT The patient should take one (1) tablet 1-2 hours prior to their MRI appointment. The patient should bring the 2nd tablet with them to the MRI appointment, and if the patient is still anxious immediately prior to going into the MRI scanner they should take the 2nd one (1) tablet. documented in this encounter Plan of Treatment Upcoming Encounters Date Type Department Care Team (Late st Contact Info) Description 01/04/2024 11:20 AM EDT Procedure Visit [facility] [address] [facility] Medical Office [place] Floor [address] [place] [address] Katie Jones AUD 01/06/2024 2:00 PM EDT Appointment [facility] [place] [facility] [address] [place] [address] 01/09/2024 2:00 PM EDT Office Visit [facility] [address] [facility] Medical Office [place] 19th Floor [address] [place] [address] Radha Coker MD [address] [place] [address] 01/10/2024 8:30 AM EDT Office Visit [facility] Care [address] [place] [address] Sydnee Ross DO [address] [facility] [place] [address] 01/11/2024 10:00 AM EDT Office Visit [facility] - ENT & Facial Plastic Surgery [address] [facility] [address] [place] [address] Kat Rico, PA [address] [place] [address] 01/20/2024 11:45 AM EDT Clinical Support [facility] [address] [facility] [place] [address] Maria Eugenia Lucero LAC [address] [place] [address] 01/30/2024 8:40 AM EST Office Visit [facility] [address] [facility] Medical Office [place] 15th [address] [place] [address] Jose Monique MD [address] [facility] Office [place] 15th [address] [place] [address] 02/27/2024 12:50 PM EST Office Visit [facility] [address] [facility] [address] [place] [phone] Kellie Bowser, OD [address] [facility] [address] [facility] [place] [address] 06/19/2024 11:30 AM EDT Appointment [place] [address] [facility] [address] [place] [address] 06/19/2024 1:00 PM EDT Appointment [place] [address] [facility] [address] [place] [address] 08/21/2024 1:40 PM EDT Office Visit [facility] 3rd [place] [address] Satya Wright PA [address] [facility] [address] 3rd [place] [address] 09/05/2024 10:30 AM EDT Office Visit [facility] [address] [place], [place] [id number] Tatiana Dominguez, TICKET SPECULATOR [address] [place] [address] documented as of this encounter Visit Diagnoses Not on filedocumented in this encounter Additional Health Concerns Assessment Noted Time A fall risk assessment has been complete d for the patient 07/13/2022 2:08 PM EDT documented as of this encounter
--- OUTSIDE RECORDS SUMMARY | 2023-11-14 01:05 | XMS_ITS | Encounter Summary ---
Author Organization [facility] Address [address] [facility] , [place], [place] [address] Phone Care Team Providers Care Aviation Electrical Technician Name Role Phone Unavailable Primary Care Provider Unavailabl e Reason for Visit * Reason Comments Pain Lesion tip of 3rd to e, she has been applying salicylic acid making toe look worse. * Consultation (Routine) - Closed Specialty Diagnoses / Procedures Referred By Farrah t Referred To Contact Podiatry Diagnoses [place] of toe Procedures [place] OFFICE/OUTPATIENT [facility] 60-74 MINUTES Style, Sydnee Ndiaye, DO [address] [facility] [place] [address] Referral ID Status Reason Start Date Expiration Date V isits Requested Visits Authorized [id number] Closed Specialty Services Required 05/27/2022 05/27/2023 1 1 Encounter Details Date Type Department Care Team (Late st Contact Info) Description 06/01/2022 2:30 PM EST Office Visit [facility] - Podiatry [address] [address] Quinten Stuart, DPM [address] [address] Skin ulcer of toe of right foot, limited to breakdown of skin (CMS/HCC) (Primary Dx); Chemical burn of skin; Congenital hammer toe of both feet; [place] of toe Social History Tobacco Use Types Packs/Day Years [...] In the last 10 days, have kathy blandon been in contact with someone who was confirmed or suspected to have Coronavirus/COVID-19? No / Unsure 06/01/2022 1:55 PM EST documented as of this encounter Last Filed Vital Signs Vital Sign Reading Time Taken Comments Blood Pressure - - Pulse - - Temperature - - Respiratory Rate - - Oxygen Saturation - - Inhaled Oxygen Concentration - - Weight 67.1 kg (148 lb) 06/01/2022 2:07 PM EST Height 175.3 cm (5' 9) 06/01/2022 2:07 PM EST Body Mass Index 21.86 06/01/2022 2:07 PM EST documented in this encounter Progress Notes * Quinten Stuart DPM - 06/01/2022 2:30 PM EST Images from the original note were not included. Podiatric Medicine and Surgery Provider: Quinten Stuart DPM Date: 06/01/2022 Patient: Gianna Infante Sex: female : 1945 Age: 76 y.o. Address: [address] [place], [place] [id number] Primary Care Physician: Sydnee Ross DO Referred by: Vandana Attending physician: Quinten Stuart DPM FACFAS Reason for Visit: No chief complaint on file. HPI: Gianna Infante is a 76 y.o. female presenting today for evaluation of a chronic ulceration on the tip of the right third toe. Is been problematic for the past several weeks. She has been using a topically applied acid without relief and in fact seems to have made matters worse. Patient Active Problem List Diagnosis Allergic to [...] dyspnea Chronic neck pain Pancreatic lesion Diverticulosis Elevated LFTs Lung nodule Low back pain Past Surgical [...] 10/31/1991 Moderna SARS-CoV-2 Vaccination 01/17/2021, 07/16/2021 Novel [id number] 03/25/2009, 03/25/2009 Pneumococcal Polysaccharide PPV23 01/25/2011 TD (adult), 2 Lf tetanus toxoid, preservative free, adsorbed 07/27/2007 Tdap 02/13/2013 Zoster, live 03/27/2012 Current Outpatient Medications Medication Sig Dispense Refill ascorbic toix-gmbzfgxg-yza (Emergen-C) 1,000 mg powder effervescent in packet atorvastatin (Lipitor) 40 mg tablet Take 1 tablet (40 mg) by mouth once daily. 90 tablet 1 ibuprofen 200 mg tablet magnesium 250 mg tablet melatonin 0.5 mg tablet split tablet omeprazole (PriLOSEC) [address] capsule Take 1 capsule (40 mg) by mouth before breakfast. Do not crush or chew. 30 capsule 2 polyvinyl alcohol-povidon,PF, (Refresh Classic, PF,) 1.4-0.6 % eye drops in a dropperette vitamin K2 40 mcg tablet Take by mouth. zoledronic acid/mannitol-water (RECLAST IV) Infuse into a venous catheter. No current facility-administered medications for this visit. Social History Socioeconomic History Marital status: Single Spouse name: Not on file Number of children: Not on file Years of education: Not on file Highest education level: Not on file Occupational History Not on file Tobacco Use Smoking status: Never Smokeless tobacco: Never Substance and Sexual Activity Alcohol use: Yes Alcohol/week: 4.0 standard drinks Types: 4 Glasses of wine per week [...] of infection noted bilaterally. There is a superficial chemical burn involving the tip of the right third toe. She has an ulceration of the tip of the right third toe as well. This is not productive of any drainage today. There is no sign of bacterial infection. Neurological: Protective sensation is intact. Musculoskeletal: There is 5 out of 5 muscle strength to all muscle groups crossing the ankle joint bilaterally. She has severe hammertoe contractures of the second through fifth toes of both feet. These contractures are fixed. Imaging: No image results found. Assessment: Diagnosis Plan 1. Skin ulcer of toe of right foot, limited to breakdown of skin (CMS/HCC) 2. Chemical burn of skin 3. Congenital hammer toe of both feet Orthopaedics Follow Up Appointment Request Follow up providers: Co; Visit Mode: In-person 4. [place] of toe Ambulatory referral to Podiatry Plan: Discussed etiology and conservative modes of care as well as a surgical reconstructive techniques to be done on these hammertoes. First of all of asked her never to ever put any of the topical salicylic acid preparations on her toe. Debrided the ulceration thoroughly with immediate relief of her symptoms. Apply a silicone toe sleeve that she will find at the pharmacy. Follow this office in 6 weeks for further evaluation and discussion of hammertoe repairs as needed. Follow-up: 6 week(s) XRs needed at follow-up: X-rays will not be necessary at follow-up Questions and concerns have been invited/addressed and the patient has a good understanding of the diagnosis, treatment plan, goals/expectations, and overall prognosis. Quinten Stuart DPM FACFAS Objective: There were no vitals taken for this visit. Estimated body mass index is 21.86 kg/m?? as calculated from the following: Height as of 05/27/22: 1.753 m (5' 9). Weight as of 05/27/22: 67.1 kg (148 lb). ?? Underweight: BMI less than 18.5. ?? Normal weight: BMI between 18.5 and 24.9. ?? Overweight: BMI between 25 and 29.9. ?? Obese: BMI of 30 and above. documented in this encounter Plan of Treatment Upcoming Encounters Date Type Department Care Team (Late st Contact Info) Description 01/04/2024 11:20 AM EDT Procedure Visit [address] Medical Office [place] Floor 9 [place] [address] Katie Jones, LISA 01/06/2024 2:00 PM EDT Appointment [facility] [address] [place] [address] 01/09/2024 2:00 PM EDT Office Visit [facility] 550 [facility] Medical Office [place] 19th Floor [address] [place] [address] Radha Coker MD 550 [place] [address] 01/10/2024 8:30 AM EDT Office Visit [facility] [address] [place] [address] Vandana, Sydnee Ndiaye DO [address] [facility] [place] [address] 01/11/2024 10:00 AM EDT Office Visit [facility] - ENT & Facial Plastic Surgery [address] [place] [address] Kat Rico, PATTIE [address] [place] [address] 01/20/2024 11:45 AM EDT Clinical Support [facility] at [facility] [address] [place] [address] Maria Eugenia Lucero, [facility] [address] [place] [address] 01/30/2024 8:40 AM EST Office Visit [facility] [address] [facility] Medical Office [place] 15th Floor [address] [place] [address] Jose Monique MD 550 [facility] Office [place] 15th Floor, [address] [place] [address] 02/27/2024 12:50 PM EST Office Visit [facility] [address] 4 [address] [place] [address] Kellie Bowser, OD [address], [address] [facility] [place] [address] 06/19/2024 11:30 AM EDT Appointment [place] [address] [place] [address] 06/19/2024 1:00 PM EDT Appointment [facility] [address] [facility] [address] [place] [address] 08/21/2024 1:40 PM EDT Office Visit [facility] at [address] [place] [address] 3rd [place] [address] Satya Wright PA [facility] 3rd [place] [address] 09/05/2024 10:30 AM EDT Office Visit [facility] [address] [place] [address] Tatiana Dominguez, HARDSCAPE FOREMAN [address] [place] [address] documented as of this encounter Visit Diagnoses Diagnosis Skin ulcer of toe of right foot, limited to breakdown of skin (CMS/HCC)- Primary Chemical burn of skin Congenital hammer toe of both feet [place] of toe Corns and callosities documented in this encounter Additional Health Concerns Assessment Noted Time A fall risk assessment has been complete d for the patient 06/01/2022 2:09 PM EST documented as of this encounter
--- OUTSIDE RECORDS SUMMARY | 2023-11-14 01:05 | XMS_ITS | Encounter Summary ---
Author Organization [facility] Address [address] [place], [place], [place] [address] Phone Care Team Providers Care Planner Internship Name Role Phone Unavailable Primary Care Provider Unavailabl e Encounter Details Date Type Department Care Team (Late st Contact Info) Description 08/18/2022 Orders Only [facility] [address] [place], [place] [id number] Libby Aguirre Social History Tobacco Use Types Packs/Day Years [...] suspected to have Coronavirus/COVID-19? No / Unsure 08/19/2022 11:33 AM EDT documented as of this encounter Plan of Treatment Upcoming Encounters Date Type Department Care Team (Late st Contact Info) Description 01/04/2024 11:20 AM EDT Procedure Visit [facility] [address] [facility] Medical Office [place] Floor 9 [place] [address] Katie Jones AUD 01/06/2024 2:00 PM EDT Appointment [facility] [address] [place] [address] 01/09/2024 2:00 PM EDT Office Visit [facility] [address] [facility] Medical Office [place] 19th Floor [address] [place] [address] Radha Coker MD 550 [place] [address] 01/10/2024 8:30 AM EDT Office Visit [facility] - Primary Care [address] [place] [address] Sydnee Ross DO [address] [facility] [place] [address] 01/11/2024 10:00 AM EDT Office Visit [facility] - ENT & Facial Plastic Surgery [address] [place] [address] Kat Rico, PATTIE [address] [place] [address] 01/20/2024 11:45 AM EDT Clinical Support [facility] [address] [facility] [place] [address] Maria Eugenia Lucero, [facility] [address] [place] [address] 01/30/2024 8:40 AM EST Office Visit [facility] [address] [facility] Medical Office [place] 15th Floor [address] [place] [address] Jose Monique MD 550 [facility] Office [place] 15th Floor, [address] [place] [address] 02/27/2024 12:50 PM EST Office Visit [facility] [address] [place] [address] Kellie Bowser, OD [address], [address] [facility] [place] [address] 06/19/2024 11:30 AM EDT Appointment [facility] [address] [place] [address] 06/19/2024 1:00 PM EDT Appointment [facility] [address] [place] [address] 08/21/2024 1:40 PM EDT Office Visit [facility] at [facility] [address] 3rd [place] [address] Satya Wright PA [facility] 3rd [place] [address] 09/05/2024 10:30 AM EDT Office Visit [facility] [address] [place] [address] Tatiana Dominguez, EDGER HAND [address] [place] [address] documented as of this encounter Visit Diagnoses Not on filedocumented in this encounter Additional Health Concerns Assessment Noted Time A fall risk assessment has been complete d for the patient 08/17/2022 2:12 PM EDT documented as of this encounter
--- OUTSIDE RECORDS SUMMARY | 2023-11-14 01:05 | XMS_ITS | Encounter Summary ---
Author Organization [facility] Address [address] [place], [place], [place] [address] Phone Care Team Providers Care Industrial/Organizational Psychologist Name Role Phone Unavailable Primary Care Provider Unavailabl e Encounter Details Date Type Department Care Team (Latest Contact Info) Description 07/15/2022 2:14 PM EDT - 07/15/2022 11:59 PM EDT Hospital Encounter [facility] [place] [address] [place] [phone] Neck pain Discharge Disposition: DISCHARGED TO HOME OR [...] Dispensed Refills Start Date End Date ascorbic jczl-sfaxofls-gbk (Emergen-C) 1,000 mg powder effervescent in packet Take by mouth once daily. 03/28/2019 ibuprofen 200 mg tablet Take by mouth if needed. PRN 03/28/2021 multivit with minerals/lutein (MULTIVITAMIN 50 PLUS ORAL) Take by mouth once daily. 03/28/2022 omega 8-hgh-fmz-fish oil 1,000 mg (120 mg-180 mg) capsule [...] 911 after use. 1 each 07/08/2022 09/28/2022 magnesium 250 mg tablet 03/28/202108/26 melatonin 0.5 mg tablet split tablet 03/28/2019 09/06/2023 documented as of this encounter Plan of Treatment Upcoming Encounters Date Type Department Care Team (Late st Contact Info) Description 01/04/2024 11:20 AM EDT Procedure Visit [facility] [address] [facility] Medical Office [place] Floor 9 [place] [address] Katie Jones AUD 01/06/2024 2:00 PM EDT Appointment [facility] [address] [place] [address] 01/09/2024 2:00 PM EDT Office Visit [facility] [address] [facility] Medical Office [place] 19th Floor [address] [place] [address] Radha Coker MD 550 [place] [address] 01/10/2024 8:30 AM EDT Office Visit [facility] [address] [place] [address] Vandana, Sydnee Ndiaye, [address] [facility] [place] [address] 01/11/2024 10:00 AM EDT Office Visit [facility] - ENT & Facial Plastic Surgery [address] [place] [address] Kat Rico, PATTIE [address] [place] [address] 01/20/2024 11:45 AM EDT Clinical Support [facility] at [facility] [address] [place] [address] Maria Eugenia Lucero, [facility] [address] [place] [address] 01/30/2024 8:40 AM EST Office Visit [facility] [address] [facility] Medical Office [place] 15th Floor [address] [place] [address] Jose Monique MD 550 [facility] [place] 15th Floor, [address] [place] [address] 02/27/2024 12:50 PM EST Office Visit [facility] [address] 4 [address] [place] [address] Kellie Bowser, OD [address], [address] [facility] [place] [address] 06/19/2024 11:30 AM EDT Appointment [facility] [address] [place] [address] 06/19/2024 1:00 PM EDT Appointment [facility] [address] [facility] 120 [place] [address] 08/21/2024 1:40 PM EDT Office Visit [facility] at [address] [facility] 3rd [place] [address] Satya Wright PA [address] 3rd [place] [address] 09/05/2024 10:30 AM EDT Office Visit [facility] [address] [place] [address] Tatiana Dominguez NP [address] [place] [address] documented as of this encounter Procedures Procedure Name Priority Date/Time Associated Diagnosis Comments XR SPINE CERVICAL 2-3 VWS STND PROTOCOL Routine 07/15/2022 2:29 PM EDT Neck pain documented in this encounter Results * XR Spine Cervical 2-3 Views (07/15/2022 2:29 PM EDT) Anatomical Region Laterality Modality C-spine Digital Radiogra phy 07/15/2022 2:46 PM EDT Impressions 07/15/2022 2:49 PM EDT Impression: There is straightening of the usual cervical lordosis. 3 mm of anterolisthesis of C4 on C5 is seen. Osseous prominence at the posterior aspects of the C5 and C6 vertebrae is nonspecific but could suggest ossification of the posterior longitudinal ligament. There is multilevel moderate to severe cervical spondylosis with varying levels of disc height loss, moderate severe at C5-6 and C6-7. There is also multilevel facet arthrosis which is most advanced at C4-5. No aggressive osseous lesion. Soft tissues are unremarkable. Narrative 07/15/2022 2:49 PM EDT Clinical Indication: neck pain ESRC.8.0 Procedure: ??XR SPINE CERVICAL 2-3 VWS STND PROTOCOL. Comparison: None. VIEWS: 4 Findings: See below. Procedure Note Sandro Dewitt MD - 07/15/2022 Clinical Indication: neck pain ESRC.8.0 Procedure: XR SPINE CERVICAL 2-3 VWS STND PROTOCOL. Comparison: None. VIEWS: 4 Findings: See below. IMPRESSION: Impression: There is straightening of the usual cervical lordosis. 3 mm ofanterolisthesis of C4 on C5 is seen. Osseous prominence at the posterioraspects of the C5 and C6 vertebrae is nonspecific but could suggestossification of the posterior longitudinal ligament. There is multilevelmoderate to severe cervical spondylosis with varying levels of disc heightloss, moderate severe at C5-6 and C6-7. There is also multilevel facetarthrosis which is most advanced at C4-5. No aggressive osseous lesion.Soft tissues are unremarkable. Sydnee Zelda Style DO IMG XR PROCEDURES documented in this encounter Visit Diagnoses Diagnosis Neck pain Cervicalgia documented in this encounter Additional Health Concerns Assessment Noted Time A fall risk assessment has been complete d for the patient 07/13/2022 2:08 PM EDT documented as of this encounter
--- OUTSIDE RECORDS SUMMARY | 2023-11-14 01:05 | XMS_ITS | Encounter Summary ---
Author Organization [facility] Address [address] [facility] , [place], [place] [address] Phone Care Team Providers Care Latex Dipper Name Role Phone Unavailable Primary Care Provider Unavailabl e Encounter Details Date Type Department Care Team (Late st Contact Info) Description 07/16/2022 Telephone [facility] [address] [facility] [address] Floor 1 [place] [address] Kellie Bowser M, OD [address] [facility] [address], [address] [facility] [place] [address] Social History Tobacco Use Types Packs/Day Years [...] encounter Miscellaneous Notes * Telephone Encounter - Katie Tate - 07/16/2022 4:35 PM EDT Scheduled to see Dr. Bowser next week at [facility] * Telephone Encounter - Katie Tate - 07/16/2022 4:33 PM EDT ----- Message from Jose Aguirre sent at 07/16/2022 3:28 PM EDT ----- Regarding: FW: New prescription Contact: [facility], Please see below. Jose ----- Message ----- From: Ole Ayers MD Sent: 07/14/2022 8:47 AM EDT To: Freida Rodgers; Jose Aguirre; # Subject: FW: New prescription Patient needs to see optometry for refraction. No cornea issues from our standpoint ----- Message ----- From: Abhijit Lim Sent: 07/14/2022 8:29 AM EDT To: [facility] [place] Pool Subject: FW: New prescription ----- Message ----- From: Gianna Infante Sent: 06/28/2022 1:56 PM EDT To: Edgardo Olivia [facility] Clinical Pool Subject: New prescription Doctor Ting, When I visited you on TuesdayJune 07, referred by Dr Alexander, you gave me a new eyeglass prescription. I received the new glasses this past from the [facility] and they are not adequate-not even as strong as the older ones. I would like to have this prescription fixed. I can't read signs very well now when driving, or read the food item signs on the [employer]. The optical techs at the Optical store told me to wear them for two weeks to perhaps get used to them, but there is no change go far. How should we handle this? Should I make anotherappointment with you or a agriculture technician? I'll bring my old ones to use as a guide. Thank you, Gianna Infante documented in this encounter Plan of Treatment Upcoming Encounters Date Type Department Care Team (Late st Contact Info) Description 01/04/2024 11:20 AM EDT Procedure Visit [facility] [address] [facility] Medical Office [place] Floor 9 [place] [address] Katie Jones AUD 01/06/2024 2:00 PM EDT Appointment [facility] [address] [place] [address] 01/09/2024 2:00 PM EDT Office Visit [facility] [address] [facility] Medical Office [place] 19th Floor [address] [place] [address] Radha Coker MD 550 [place] [address] 01/10/2024 8:30 AM EDT Office Visit [facility] [address] [place] [address] Style, Sydnee Ndiaye, [address] [facility] [place] [address] 01/11/2024 10:00 AM EDT Office Visit [facility] - ENT & [facility]ial Plastic Surgery [address] [facility] [address] [place] [address] Kat Rico, PATTIE [address] [place] [address] 01/20/2024 11:45 AM EDT Clinical Support [facility] [address] [place] [address] Maria Eugenia Lucero, ORA [address] [place] [address] 01/30/2024 8:40 AM EST Office Visit [facility] 550 [facility] Medical Office [place] 15th Floor [address] [place] [address] Jose Monique MD 550 [facility] [place] 15th Floor, [address] [place] [address] 02/27/2024 12:50 PM EST Office Visit [facility] [address] 4 [address] [place] [address] Kellie Bowser, MILAN [address], [address] [place] [address] 06/19/2024 11:30 AM EDT Appointment [place] [address] [address] 06/19/2024 1:00 PM EDT Appointment [place] [address] [address] 08/21/2024 1:40 PM EDT Office Visit [facility] [place] [address] [facility] 3rd [place] [address] Satya Wright PA [address] [facility] 3rd [place] [address] 09/05/2024 10:30 AM EDT Office Visit [facility] [address] [place] [address] Tatiana Dominguez, KASH [address] [place] [address] documented as of this encounter Visit Diagnoses Not on filedocumented in this encounter Additional Health Concerns Assessment Noted Time A fall risk assessment has been complete d for the patient 07/13/2022 2:08 PM EDT documented as of this encounter
--- OUTSIDE RECORDS SUMMARY | 2023-11-14 01:05 | XMS_ITS | Encounter Summary ---
Author Organization [facility] Address [address] [place] [address], [place] [address] Phone Care Team Providers Care Machine Guide Base Winder Name Role Phone Unavailable Primary Care Provider Unavailabl e Reason for Visit * Reason Onset Date Comments med for 07/29 MRI 07/19/2022 Encounter Details Date Type Department Care Team (Late st Contact Info) Description 07/19/2022 Telephone [facility] [phone] Walter Conrad MD [address] [facility] [address], [address] [place] [address] med for 07/29 MRI Social History Tobacco Use Types Packs/Day Years [...] Telephone Encounter - Walter Conrad MD - 07/19/2022 4:42 PM EDT sent * Telephone Encounter - Rachel Boateng - 07/19/2022 10:11 AM EDT MEDICATION RENEWAL Provider / : pal Medication 1: calming medicine for MRI on july 29 Medication 2: Medication 3: [facility] Phone #: on file Pt requesting call from nurse regarding when to take this med also. documented in this encounter Plan of Treatment Upcoming Encounters Date Type Department Care Team (Late st Contact Info) Description 01/04/2024 11:20 AM EDT Procedure Visit [facility] [address] [facility] Medical [facility] [place] [address] 9 [place] [address] Katie Jones, LISA 01/06/2024 2:00 PM EDT Appointment [facility] [address] [place] [address] 01/09/2024 2:00 PM EDT Office Visit [facility] [address] [facility] Medical [facility] [place] 19[address] [place] [address] Radha Coker MD 550 [place] [address] 01/10/2024 8:30 AM EDT Office Visit [facility] - Primary Care [address] [place] [address] Sydnee Ross, [address] [facility] [place] [address] 01/11/2024 10:00 AM EDT Office Visit [facility] - ENT & Facial Plastic Surgery [address] [place] [address] Kat Rico, PATTIE [address] [place] [address] 01/20/2024 11:45 AM EDT Clinical Support [facility] [address] [place] [address] Maria Eugenia Lucero, [facility] [address] [place] [address] 01/30/2024 8:40 AM EST Office Visit [facility] [address] [facility] Medical [facility] [place] 15[address] [place] [address] Jose Monique MD 550 [facility] Office [place] 15th Floor, [address] [place] [address] 02/27/2024 12:50 PM EST Office Visit [facility] [address] [facility] Floor 4 [address] [place] [address] Kellie Bowser, OD [address] [facility] [address], [address] [place] [address] 06/19/2024 11:30 AM EDT Appointment [facility] [address] [facility] [address] [place] [address] 06/19/2024 1:00 PM EDT Appointment [facility] [address] [facility] [address] [place] [address] 08/21/2024 1:40 PM EDT Office Visit [facility] [address] [facility] [address] [facility] [place] 3rd [place] [address] Satya Wright PA [address] 3rd [place] [address] 09/05/2024 10:30 AM EDT Office Visit [facility] [address] [place] [address] Tatiana Dominguez NP [address] [place] [address] documented as of this encounter Visit Diagnoses Not on filedocumented in this encounter Additional Health Concerns Assessment Noted Time A fall risk assessment has been complete d for the patient 07/13/2022 2:08 PM EDT documented as of this encounter
--- OUTSIDE RECORDS SUMMARY | 2023-11-14 01:05 | XMS_ITS | Encounter Summary ---
Author Organization [facility] Address [address] [place], [place], [place] [address] Phone Care Team Providers Care Rheumatology Nurse Name Role Phone Unavailable Primary Care Provider Unavailabl e Encounter Details Date Type Department Care Team (Late st Contact Info) Description 08/19/2022 2:00 PM EDT Anesthesia Event [facility] [address] [place] [address] Dotty Harrell MD [address] [facility] [address] [place] [id number] Angela Benitez NP [address] [place] [address] Anesthesia Record Procedure Summary Procedure Name Responsible Anesthesiologist Anesthesia Start Time Anesthesia Stop Time ENDOSCOPIC ULTRASOUND Dotty Harrell MD 08/19/22 1400 08/19/22 1457 Events Date Time Event Comment 08/19/2022 1242 1400 An Start 1400 An Start Data 1400 In Room 1403 Start Auxiliary O2 1407 Rob T/O pre-procedu re 1409 Anesthesia Ready 1412 Rob EGD scope in 1447 Rob EGD scope out 1454 Out of Room 1454 Stop Auxiliary O2 1454 an stop data 1457 Handoff to Receiving I compl eted my handoff to the receiving clinician during which we: 1. Identified the patient 2. Identified the responsible provider 3. Reviewed the pertinent medical history 4. Discussed the surgical course 5. Reviewed intra-op anesthesia management and issues during anesthesia 6. Set expectations for post-procedure period 7. Allowed opportunity for questions and acknowledgement of understanding. 1457 An Stop Meds Name Total lidocaine (Xylocaine) injection 2 % 50 m g propofol (Diprivan) injection 10 mg/mL 4 00 mg lactated Ringer's infusion 300 mL levoFLOXacin (Levaquin) IVPB 500 mg in 1 00 mL (premix) 100 mL * Agents Name O2 * Blood No blood administrations on file. Lines, Drains, and Airways Type Details Placement Removal Peripheral IV Placement Date: 07/27 08/17; Placement Time: 123; Catheter Size: 22 G; Orientation: Anterior, Left; Location: Forearm; Site Prep: Chlorhexidine; Local Anesth: None; Inserted by: RUSTAM TONY; Insertion Attempts: 1; Difficult Venous Access? No; Patient Tolerance: Tolerated well; Removal Date: 08/19/22; Removal Time: 153; Removal Reason: No longer clinically indicated 08/19/22 1231 by Aisha Torres 08/19/22 153 by Heladio Foster documented in this encounter Social History Tobacco [...] AM EDT documented as of this encounter OR Notes * Anesthesia Postprocedure Evaluation - Dotty Harrell - 08/19/2022 3:15 PM EDT Patient: Gianna Infante Procedure Summary Date: 08/19/22 Room / Location: [facility] Anesthesia Start: 1400 Anesthesia Stop: 1456 Procedure: ENDOSCOPIC ULTRASOUND Diagnosis: IPMN (intraductal papillary mucinous neoplasm) (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) Scheduled Providers: Todd Chairez MD; Dotty Harrell; Cm Uribe Responsible Provider:Dotty Harrell Anesthesia Type: MAC ASA Status: 3 Anesthesia Type: MAC Vitals Value Taken Time BP 117/97 08/19/22 1511 Temp 35.8 ??C (96.4 ??F) 08/19/22 1456 Pulse 61 08/19/22 1511 Resp 14 08/19/22 1511 SpO2 100 % 08/19/22 1511 Anesthesia Post Evaluation Patient location during evaluation: PACU Patient participation: complete - patient participated Level of consciousness: awake and alert Pain score: 0 Pain management: adequate Airway patency: patent Cardiovascular status: stable Respiratory status: spontaneous ventilation Hydration status: stable There were no known notable events for this encounter. * Anesthesia Preprocedure Evaluation - Dotty Harrell - 08/18/2022 9:30 AM EDT Images from the original note were not included. Patient: Gianna Infante Procedure Information Date/Time: 08/19/22 1330 Scheduled providers: Todd Chairez MD; Dotty Harrell; Cm Uribe Procedure: ENDOSCOPIC ULTRASOUND Location: [facility] Relevant clinical history: 76 yr old female with intraductal papillary mucinous neoplasm scheduled for endoscopic ultrasound Relevant Problems Cardiac (+) Hypertension (+) Other hyperlipidemia Pulmonary (+) Exertional dyspnea GI (+) GERD (gastroesophageal reflux disease) Neuro/Psych (+) Chronic neck pain Digestive (+) Diverticulosis (+) Dysphagia (+) Pancreatic lesion Musculoskeletal (+) Compression fracture of body of thoracic vertebra (CMS/HCC) Endocrine/Metabolic (+) Thyroid nodule Other (+) Arthritis of both hands (+) History of basal cell carcinoma (BCC) (+) Memory deficit (+) Situational mixed anxiety and depressive disorder Dysphagia HTN HLD- takes lipitor GERD History of compression fracture of thoracic vertebra (T11 and T12 in 2019) Neuromuscular disorder Varicose veins s/p vein stripping bilaterally in 1978 Anxiety/depression Memory issues- history of concussions in the past Diverticulosis Thyroid nodule Chronic neck pain Vitals: Visit Vitals BP 154/55 Comment: MAP 81 Pulse 69 Temp (!) 36.1 ??C (97 ??F) (Temporal) Resp 19 Ht 1.753 m (5' 9) Wt 67.1 kg (148 lb) SpO2 100% BMI 21.86 kg/m?? OB Status Postmenopausal Smoking Status Never BSA 1.81 m?? Home meds: (Not in a hospital admission) Inpatient/active meds: Current Outpatient Medications: ??? ascorbic mxua-qsieufup-ykp (Emergen-C) 1,000 mg powder effervescent in packet, , Disp: , Rfl: ??? atorvastatin (Lipitor) 40 mg tablet, Take 1 tablet (40 mg) by mouth once daily., Disp: 90 tablet, Rfl: 1 ??? ibuprofen 200 mg tablet, , Disp: , Rfl: ??? magnesium 250 mg tablet, , Disp: , Rfl: ??? melatonin 0.5 mg tablet split tablet, , Disp: , Rfl: ??? multivit with minerals/lutein (MULTIVITAMIN 50 PLUS ORAL), , Disp: , Rfl: ??? omega 1-uwn-gbg-fish oil 1,000 mg (120 mg-180 mg) capsule, , Disp: , Rfl: ??? polyvinyl alcohol-povidon,PF, (Refresh Classic, PF,) 1.4-0.6 % eye drops in a dropperette, , Disp: , Rfl: ??? zoledronic acid/mannitol-water (RECLAST IV), Infuse into a venous catheter., Disp: , Rfl: ??? EPINEPHrine (Epipen) 0.3 mg/0.3 mL injection syringe, Inject 0.3 mL (0.3 mg) as directed if needed for anaphylaxis. Call 911 after use. (Patient not taking: Reported on 08/19/2022), Disp: 1 each, Rfl: 0 ??? LORazepam (Ativan) 1 mg tablet, Take 1 tablet (1 mg) by mouth every 6 (six) hours if needed foranxiety for up to 1 day. Take one (1) tablet 1-2 hours prior to their MRI appointment. If still anxious, take 2nd tablet immediately prior to going into the MRI scanner, Disp: 2 tablet, Rfl: 0 Current Facility-Administered Medications: ??? lactated Ringer's infusion - Omnicell Override Pull, , , , ??? lactated Ringer's infusion, 50 mL/hr, intravenous, Continuous, Todd Chairez MD Allergies: Allergies Allergen Reactions ??? Bee Venom Protein (Honey Bee) Anaphylaxis ??? Fluoxetine Other reaction(s): Other (See Comments), Other (See Comments) paranoid Paranoid Paranoid ??? Estrogens, Conjugated ??? Hymenoptera Allergenic Extract ??? Serotonin Hallucinations ??? Wasp Venom ??? Trazodone Anxiety Social history: Social History Socioeconomic History ??? Marital status: Single Tobacco Use ??? Smoking status: Never ??? Smokeless tobacco: Never Vaping Use ??? Vaping status: Never Used Substance and Sexual Activity ??? Alcohol use: Yes Alcohol/week: 4.0 standard drinks of alcohol Types: 4 Glasses of wine per week Comment: 4 per week average ??? Drug use: Never ??? Sexual activity: Not Currently Partners: Male control/protection: Post-menopausal Past surgical history: Past Surgical History: Procedure Laterality Date ??? CATARACT EXTRACTION Bilateral 2020 CE-IOL OU ? ? JOINT REPLACEMENT 12/2018 & 05/2021 ??? TOTAL KNEE ARTHROPLASTY Bilateral 2017 and 2021 ??? VASCULAR SURGERY 1979?-Varicose vein stripping in both legs Recent labs: Lab Results Component Value Date WBC 5.6 03/11/2022 HGB 14.1 03/11/2022 HCT 42.5 (H) 03/11/2022 MCV 94.0 03/11/2022 PLT 274 03/11/2022 Lab Results Component Value Date CALCIUM 9.4 05/27/2022 NA 141 05/27/2022 K 4.1 05/27/2022 CO2 26 05/27/2022 CL 102 05/27/2022 BUN 12 05/27/2022 CREATININE 0.63 05/27/2022 Lab Results Component Value Date INR 0.99 03/11/2022 Other Relevant clinical labs (if needed): Recent imaging: === 07/15/22 === XR SPINE CERVICAL 2-3 VWS STND PROTOCOL There is straightening of the usual cervical lordosis. 3 mm of anterolisthesis of C4 on C5 is seen.Osseous prominence at the posterior aspects of the C5 and C6 vertebrae is nonspecific but could suggest ossification of the posterior longitudinal ligament. There is multilevel moderate to severe cervical spondylosis with varying levels of disc height loss, moderate severe at C5-6 and C6-7. There is also multilevel facet arthrosis which is most advanced at C4-5. No aggressive osseous lesion. Softtissues are unremarkable. No results found for this or any previous visit (from the past 4464 hour(s)). No echocardiogram results found for the past 12 months Previous anesthestic info and/or complications: 05/19/22: MAC/ MP II 04/28/21: MAC Clinical information reviewed: Tobacco Allergies Meds Med Hx Surg Hx OB Status Fam Hx Soc Hx Physical Exam Airway Mallampati: II TM distance: >3 FB Neck ROM: full Cardiovascular Rhythm: regular Dental Neurological Musculoskeletal Pulmonary - normal exam Abdominal Anesthesia Plan ASA 3 MAC The patient is not a current smoker. NPO Status: >2hr/8hr clear liquids/solids intravenous induction Anesthetic plan and risks discussed with patient. Additional Equipment Requests Laboratory/POCT as directed by Physician during procedure for patient care; tests may include pH, pCO2, pO2, Na+, K+, Glucose, Cl-, Ca++, Lactate, Hct, tHb, O2Hb, COHb, MetHb, ACT, TEG, HPylori, and Urine documented in this encounter Plan of Treatment Upcoming Encounters Date Type Department Care Team (Late st Contact Info) Description 01/04/2024 11:20 AM EDT Procedure Visit [facility] [address] [facility] Medical Office [place] Floor 9 [place] [address] Katie Jones AUD 01/06/2024 2:00 PM EDT Appointment [facility] [address] [place] [address] 01/09/2024 2:00 PM EDT Office Visit [facility] [address] [facility] Medical Office [place] 19th Floor [address] [place] [address] Radha Coker MD [address] [place] [address] 01/10/2024 8:30 AM EDT Office Visit [facility] - Primary Care [address] [place] [address] Style, Sydnee Ndiaye, DO [address] [facility] [place] [address] 01/11/2024 10:00 AM EDT Office Visit [facility] - ENT & Facial Plastic Surgery [address] [place] [address] Kat Rico PA [address] [place] [address] 01/20/2024 11:45 AM EDT Clinical Support [facility] [address] [facility] [place] [address] Maria Eugenia Lucero, ORA [address] [place] [address] 01/30/2024 8:40 AM EST Office Visit [facility] 550 [facility] [place] 15th Floor [address] [place] [address] Jose Monique MD 550 [facility] [place] 15th Floor, [address] [place] [address] 02/27/2024 12:50 PM EST Office Visit [facility] [address] [facility] [address] [place] [address] Kellie Bowser, OD [address] [facility] [address], [address] [facility] [place] [address] 06/19/2024 11:30 AM EDT Appointment [facility] [address] [place] [address] 06/19/2024 1:00 PM EDT Appointment [facility] [address] [facility] [address] [place] [address] 08/21/2024 1:40 PM EDT Office Visit [facility] at [address] [facility] [address] 3rd [place] [address] Satya Wright PA [address] 3rd [place] [address] 09/05/2024 10:30 AM EDT Office Visit [facility] [address] [place] [address] Tatiana Dominguez NP 12 [facility] [place] [address] documented as of this encounter Visit Diagnoses Not on filedocumented in this encounter Administered Medications Inactive Administered Medications - up to 3 most recent administrations Medication Order MAR Action Action Date Dose Rate Site lactated Ringer's infusion 50 mL/hr, intravenous, Continuous, Starting on Yael 08/19/22 at 1245 New Bag 08/19/2022 2:00 PM EDT 125 mL/hr levoFLOXacin (Levaquin) IVPB intravenous, Administer over 60 Minutes, Continuous PRN, Starting on Yael 08/19/22 at 1411, Anesthesia Intraprocedure New Bag 08/19/2022 2:11 PM EDT lidocaine (Xylocaine) 20 mg/mL (2 %) injection intravenous, As needed, Starting on Yael 08/19/22 at 1409, Anesthesia Intraprocedure Given 08/19/2022 2:09 PM EDT 50 mg propofol (Diprivan) intravenous emulsion intravenous, As needed, Starting on Yael 08/19/22 at 1409, Anesthesia Intraprocedure Given 08/19/2022 2:45 PM EDT 10 mg Given 08/19/2022 2:44 PM EDT 10 mg Given 08/19/2022 2:43 PM EDT 10 mg documented in this encounter Additional Health Concerns Assessment Noted Time A fall risk assessment has been complete d for the patient 08/17/2022 2:12 PM EDT documented as of this encounter
--- OUTSIDE RECORDS SUMMARY | 2023-11-14 01:05 | XMS_ITS | Encounter Summary ---
Author Organization [facility] Address [address] [place] [address], [place] [address] Phone Care Team Providers Care Switchboard Wirer Name Role Phone Unavailable Primary Care Provider Unavailabl e Reason for Visit * Reason Onset Date Comments HAMLET DEE 07/28/2022 Encounter Details Date Type Department Care Team (Late st Contact Info) Description 07/28/2022 Telephone [facility] [phone] Frandy Negrete MD [address] [place] [address] 3 [facility] AT [address] [place] [address] ATTN JAREN Social History Tobacco Use Types Packs/Day Years [...] suspected to have Coronavirus/COVID-19? No / Unsure 08/27/2022 8:08 AM EDT documented as of this encounter Miscellaneous Notes * Telephone Encounter - Jaren Salazar - 07/28/2022 9:46 AM EDT Patient has been scheduled. * Telephone Encounter - Marci Vang - 07/28/2022 9:39 AM EDT Patient is calling Ms. Dee back to schedule her follow up appointment with Dr. Negrete. Please assist with a call back documented in this encounter Plan of Treatment Upcoming Encounters Date Type Department Care Team (Late st Contact Info) Description 01/04/2024 11:20 AM EDT Procedure Visit [facility] 550 [facility] Medical Office [place] Floor 9 [place] [address] Katie Jones AUD 01/06/2024 2:00 PM EDT Appointment [facility] [address] [place] [address] 01/09/2024 2:00 PM EDT Office Visit [facility] 550 [facility] Medical Office [place] 19th Floor [address] [place] [address] Radha Coker MD 550 [place] [address] 01/10/2024 8:30 AM EDT Office Visit [facility] - Primary Care [address] [place] [address] Vandana, Sydnee Ndiaye, [address] [facility] [place] [address] 01/11/2024 10:00 AM EDT Office Visit [facility] - ENT & Facial Plastic Surgery [address] [facility] [address] [place] [address] Kat Rico, PATTIE [address] [facility] [place] [address] 01/20/2024 11:45 AM EDT Clinical Support [facility] [address] [place] [address] Maria Eugenia Lucero LAC [address] [place] [address] 01/30/2024 8:40 AM EST Office Visit [facility] [address] [facility] [place] 15th Floor [address] [place] [address] Jose Monique MD 550 [facility] Office [place] 15th Floor, [address] [place] [address] 02/27/2024 12:50 PM EST Office Visit [facility] [address] [facility] Floor 4 [address] [place] [address] Kellie Bowser, OD [address] [facility] [address] 4, [address] [facility] [place] [address] 06/19/2024 11:30 AM EDT Appointment [place] [address] [address] 06/19/2024 1:00 PM EDT Appointment [place] [address] [place] [address] 08/21/2024 1:40 PM EDT Office Visit [facility] at [address] [facility] 3rd [place] [address] Satya Wright PA [address] [facility] [address] 3rd [place] [address] 09/05/2024 10:30 AM EDT Office Visit [facility] [address] [place] [address] Tatiana Dominguez NP [address], [place] [id number] documented as of this encounter Visit Diagnoses Not on filedocumented in this encounter Additional Health Concerns Assessment Noted Time A fall risk assessment has been complete d for the patient 07/13/2022 2:08 PM EDT documented as of this encounter
--- OUTSIDE RECORDS SUMMARY | 2023-11-14 01:05 | XMS_ITS | Encounter Summary ---
Author Organization [facility] Address [address], [place] [address] Phone Care Team Providers Care Ecd Name Role Phone Unavailable Primary Care Provider Unavailabl e Reason for Visit * Reason Comments Cerumen Impaction Encounter Details Date Type Department Care Team (Late st Contact Info) Description 08/27/2022 8:30 AM EDT Office Visit [facility] [address] [place], [place] [id number] Rosales Yuan PA [address] [facility] [address] [facility] [place] [address] Impacted cerumen, bilateral (Primary Dx); Ear discomfort, bilateral Social History Tobacco Use Types Packs/Day Years [...] Sign Reading Time Taken Comments Blood Pressure 120/80 08/27/2022 8:20 AM EDT Pulse 86 08/27/2022 8:20 AM EDT Temperature 36.2 ??C (97.2 ??F) 08/27/2022 8:20 AM ED T Respiratory Rate 18 08/27/2022 8:20 AM EDT Oxygen Saturation 98% 08/27/2022 8:20 AM EDT Inhaled Oxygen Concentration - - Weight 68.8 kg (151 lb 9.6 oz) 08/27/2022 8:20 A M EDT Height 175.3 cm (5' 9) 08/27/2022 8:20 AM EDT Body Mass Index 22.39 08/27/2022 8:20 AM EDT documented in this encounter Progress Notes * Kelly Yuan PA - 08/27/2022 8:30 AM EDT Subjective Patient ID: Gianna Infante is a 76 y.o. female who presents for Cerumen Impaction. HPI The patient is a 76-year-old female presenting to the clinic complaining of bilateral ear discomfort worse in the right ear, fullness, slightly decreased hearing because of the fullness but has been gradually worsening. She has known history of bilateral cerumen impaction, tries to clean at home byherself, tries to avoid Q-tips. She used Debrox wax removal drops in the right ear seem to have helped minimally in the last couple of days. Negative for pain in the ears, negative for any associated upper respiratory symptoms including nasal congestion, drainage, sore throat, chest congestion or cough. Negative for fever or chills. Review of Systems A Six point review of systems including Constitutional, Cardiovascular, Respiratory, Gastrointestinal, Genitourinary and Musculoskeletal performed with the patient noted to be negative other than pertinent positives that have been documented in the history of present illness above. Objective Physical Exam Constitutional: In no acute distress, well-nourished HEENT: Right ear noted to be impacted with cerumen, left ear canal with cerumen but visualization of the TM was possible, negative for lymphadenopathy erythema noted, negative for tenderness periauricular, negative for any other remarkable findings Lungs: Clear to auscultation Heart: Regular S1, S2 with no murmurs on auscultation Extremities: Negative for significant edema Assessment/Plan Diagnoses and all orders for this visit: Impacted cerumen, bilateral - Ear Cerumen Removal; Future Ear discomfort, bilateral - Ear Cerumen Removal; Future Other orders - xsebrlui-aqwhfodzz-HS (Cortisporin) otic solution; Administer 2 drops into the right ear in the morning, in the afternoon, in the evening, and at bedtime for 5 days. 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 She tolerated the procedure well. No active bleeding. Recommended to use the otic suspension as prescribed above in the right ear for a few days to help with inflammation and prevent bacterial infection. Discussed about safely cleaning the ears and not using any Q-tips, not inserting anything in the external ear canal. Gentle flushing should be sufficient. Explained to the patient. documented in this encounter Plan of Treatment Upcoming Encounters Date Type Department Care Team (Late st Contact Info) Description 01/04/2024 11:20 AM EDT Procedure Visit [facility] [address] [facility] [place] Floor 9 [place] [address] Katie Jones AUD 01/06/2024 2:00 PM EDT Appointment [facility] [address] [place] [address] 01/09/2024 2:00 PM EDT Office Visit [facility] [address] [facility] [place] 19th Floor [address] [place] [address] Radha Coker MD 550 [place] [address] 01/10/2024 8:30 AM EDT [facility] [address] [facility] 110 [place] [address] Style, Sydnee Ndiaye, DO [address] [facility] [place] [address] 01/11/2024 10:00 AM EDT Office Visit [facility] - ENT & Facial Plastic Surgery [address] [place] [address] Kat Rico, PATTIE [address] [place] [address] 01/20/2024 11:45 AM EDT Clinical Support [facility] [address] [facility] [place] [address] Maria Eugenia Lucero, [facility] [address] [place] [address] 01/30/2024 8:40 AM EST Office Visit [facility] 550 [facility] [place] 15th Floor [address] [place] [address] Jose Monique MD 550 [facility] Office [place] 15th Floor, [address] [place] [address] 02/27/2024 12:50 PM EST Office Visit [facility] [address] [facility] [address] Floor 4 [address] [place] [phone] Kellie Bowser, OD [address] [facility] [address], [address] [facility] [place] [address] 06/19/2024 11:30 AM EDT Appointment [facility] [address] [place] [address] 06/19/2024 1:00 PM EDT Appointment [facility] [address] [place] [address] 08/21/2024 1:40 PM EDT Office Visit [facility] at [address] [facility] [address] 3rd [place] [address] Satya Wright PA [address] 3rd [place] [address] 09/05/2024 10:30 AM EDT Office Visit [facility] [address] [place] [address] Tatiana Dominguez, KASH [address] [facility] [place] [address] Scheduled Orders Name Type Priority Associated Diagnoses Orde r Schedule Ear Cerumen Removal Procedures Routine Impacted cerumen, bilateral Ear discomfort, bilateral Expected: 08/27/2022 (Approximate), Expires: 08/28/2023 documented as of this encounter Visit Diagnoses Diagnosis Impacted cerumen, bilateral- Primary Ear discomfort, bilateral documented in this encounter Additional Health Concerns Assessment Noted Time A fall risk assessment has been complete d for the patient 08/27/2022 8:18 AM EDT documented as of this encounter
--- OUTSIDE RECORDS SUMMARY | 2023-11-14 01:05 | XMS_ITS | Encounter Summary ---
Author Organization [facility] Address [address] [place], [place] [address] Phone Care Team Providers Care Float Builder Name Role Phone Unavailable Primary Care Provider Unavailabl e Encounter Details Date Type Department Care Team (Late Contact Info) Description 08/28/2022 Orders Only [facility] [address] [place] [address] Earl Flynn MD [address] [facility] [address] Social History Tobacco Use Types Packs/Day Years [...] Visit [facility] 550 [facility] Medical Office [place] Floor 9 [place] [address] Katie Jones AUD 01/06/2024 2:00 PM EDT Appointment [facility] [address] [place] [address] 01/09/2024 2:00 PM EDT Office Visit [facility] 550 [facility] Medical Office [place] 19th Floor [address] [place] [address] Radha Coker MD 550 [place] [address] 01/10/2024 8:30 AM EDT Office Visit [facility] [place] [facility] [address] [place] [address] Vandana, Sydnee Ndiaye DO [address] [facility] [place] [address] 01/11/2024 10:00 AM EDT Office Visit [facility] - ENT & Facial Plastic Surgery [address] [facility] [address] [place] [address] Kat Rico, PA [address] [place] [address] 01/20/2024 11:45 AM EDT Clinical Support [facility] [address] [facility] [place] [address] Maria Eugenia Lucero LAC [address] [place] [address] 01/30/2024 8:40 AM EST Office Visit [facility] 550 [facility] Medical Office [place] 15th Floor [address] [place] [address] Jose Monique MD [address] Medical Office [place] 15th Floor, [address] [place] [address] 02/27/2024 12:50 PM EST Office Visit [facility] [address] [facility] [address] 4 [address] [place] [phone] Kellie Bowser, OD [address] [facility] [address], [address] [facility] [place] [address] 06/19/2024 11:30 AM EDT Appointment [place] [address] [facility] [address] [place] [address] 06/19/2024 1:00 PM EDT Appointment [place] [address] [place] [address] 08/21/2024 1:40 PM EDT Office Visit [facility] at [facility] [address] 3rd [place] [address] Satya Wright PA [address] [facility] [address] 3rd [place] [address] 09/05/2024 10:30 AM EDT Office Visit [facility] [address] [place] [address] Tatiana Dominguez, COLORIST DYER [address] [place] [address] documented as of this encounter Visit Diagnoses Not on filedocumented in this encounter Additional Health Concerns Assessment Noted Time A fall risk assessment has been complete d for the patient 08/27/2022 8:18 AM EDT documented as of this encounter
--- OUTSIDE RECORDS SUMMARY | 2023-11-14 01:05 | XMS_ITS | Encounter Summary ---
Author Organization [facility] Address [address] [place] [address], [place] [address] Phone Care Team Providers Care Sizing Machine And Drier Operator Name Role Phone Unavailable Primary Care Provider Unavailabl e Reason for Referral * Imaging (Routine) - Closed Specialty Diagnoses / Procedures Referred By Farrah shook Referred To Contact Radiology Diagnoses Pancreatic lesion Procedures MR Abdomen W And WO Contrast Zzzesjh [address] 7[address] Gastro [address] [facility] [address] [place] [address] Referral ID Status Reason Start Date Expiration Date Visits Re quested Visits Authorized [id number] Closed 06/02/2022 07/02/2023 1 1 Reason for Visit * Imaging (Routine) - Closed Specialty Diagnoses / Procedures Referred By Contac t Referred To Contact Radiology Diagnoses Pancreatic lesion Procedures MR Abdomen W And WO Contrast Zzzesjh [address] 7[address] Gastro 5673 [facility] [address] [place] [address] Referral ID Status Reason Start Date Expiration Date Visits Re quested Visits Authorized [id number] Closed 06/02/2022 07/02/2023 1 1 Encounter Details Date Type Department Care Team (Latest Contact Info) Description 07/29/2022 11:24 AM EDT - 07/29/2022 11:59 PM EDT Hospital Encounter [facility] [address] [place] [phone] Pancreatic lesion Discharge Disposition: DISCHARGED TO HOME [...] Dispensed Refills Start Date End Date ascorbic ghjb-upkxbefh-pas (Emergen-C) 1,000 mg powder effervescent in packet Take by mouth once daily. 03/28/2019 ibuprofen 200 mg tablet Take by mouth if needed. PRN 03/28/2021 multivit with minerals/lutein (MULTIVITAMIN 50 PLUS ORAL) Take by mouth once daily. 03/28/2022 omega 1-mav-xhi-fish oil 1,000 mg (120 mg-180 mg) capsule [...] 01/04/2024 11:20 AM EDT Procedure Visit [facility] [address] [facility] Medical Office [place] Floor 9 [place] [address] Katie Jones AUD 01/06/2024 2:00 PM EDT Appointment [facility] [address] [place] [address] 01/09/2024 2:00 PM EDT Office Visit [facility] [address] [facility] Medical Office [place] 19th Floor [address] [place] [address] Radha Coker MD [address] [place] [address] 01/10/2024 8:30 AM EDT Office Visit [facility] [address] [place] [address] Sydnee Ross, [address] [facility] [place] [address] 01/11/2024 10:00 AM EDT Office Visit [facility] - [facility]NT & [facility]ial Plastic Surgery [address] [facility] [address] [place] [address] Kat Rico, PATTIE [address] [place] [address] 01/20/2024 11:45 AM EDT Clinical Support [facility] [address] [facility] [place] [address] Maria Eugenia Lucero LAC [address] [place] [address] 01/30/2024 8:40 AM EST Office Visit [facility] [address] [facility] Medical Office [place] 15th Floor [address] [place] [address] Jose Monique MD 550 [facility] Office [place] 15th Floor, [address] [place] [address] 02/27/2024 12:50 PM EST Office Visit [facility] [address] [facility] [address] 4 [address] [place] [phone] Kellie Bowser, OD [address] [facility] [address] [facility] [address], [address] [facility] [place] [address] 06/19/2024 11:30 AM EDT Appointment [place] [address] [facility] [address] [place] [address] 06/19/2024 1:00 PM EDT Appointment [place] [address] [facility] 120 [place] [address] 08/21/2024 1:40 PM EDT Office Visit [facility] [address] 3rd [place] [address] Satya Wright PA [address] [facility] [address] 3rd [place] [address] 09/05/2024 10:30 AM EDT Office Visit [facility] [address] [place], [place] [phone] Tatiana Dominguez NP [address] [place] [address] documented as of this encounter Procedures Procedure Name Priority Date/Time Associated Diagnosis Comments MR ABDOMEN W AND WO CONTRAST Routine 07/29/2022 12:28 PM EDT Pancreatic lesion documented in this encounter Results * MR Abdomen W And WO Contrast (07/29/2022 12:28 PM EDT) Anatomical Region Laterality Modality Abdomen Magnetic Resonan ce 07/30/2022 9:09 AM EDT Impressions 07/30/2022 9:17 AM EDT Large 2.8 x 3.5 x 3.3 cm cystic structure appears to be arising from the pancreatic head/uncinate process, possibly a large side branch IPMN. No definite suspicious enhancing features seen. Consider endoscopic ultrasound to further evaluate. Narrative 07/30/2022 9:17 AM EDT EXAM: MR ABDOMEN W AND WO CONTRAST CLINICAL INDICATION: pancreatic cyst in uncinate process. TECHNIQUE: Multisequence, multiplanar MRI of the abdomen was performed without and with intravenous contrast. ESRC.2.7.3 COMPARISON: No direct comparisons available. FINDINGS: Lower Thorax: Limited images through the lung bases are unremarkable. Liver: No significant fat or iron deposition in the liver. A few subcentimeter liver cysts measuring for example 0.2 cm posterior right hepatic lobe series 5 image 7. No definitely suspicious focal liver lesion is seen. Gallbladder/Biliary Tree: Gallbladder present and partially decompressed. No biliary ductal dilatation. Spleen: 10.3 cm in length. Pancreas: A few subcentimeter side branch IPMN's in the pancreas measuring for example 5 mm in the tail series 5 image 17. Large cystic structure along the pancreatic head measuring 2.8 x 3.5 x 3.3 cm series 5 image 25 and series 4 image 12. No dilatation of the main pancreatic duct. Based on morphology, query whether this structure is a large side branch IPMN. No definitely enhancing suspicious features seen. Adrenal Glands: Normal. Kidneys/Ureters: No hydronephrosis. Subcentimeter cyst right kidney series 5 image 23. Gastrointestinal: No bowel obstruction in the abdomen. Pelvic bowel not included in the qubaq-tw-yefc. Colonic diverticulosis without acute diverticulitis. Lymph Nodes: Subcentimeter in short axis lymph nodes. Vessels: Atherosclerotic disease. Celiac trunk and superior mesenteric artery are patent. Main portal vein is patent. Peritoneum/Retroperitoneum: No significant free fluid. Bones/Soft Tissues: Degenerative changes in the spine. Procedure Note Delores Mccoy MD - 07/30/2022 EXAM: MR ABDOMEN W AND WO CONTRAST CLINICAL INDICATION: pancreatic cyst in uncinate process. TECHNIQUE: Multisequence, multiplanar MRI of the abdomen was performedwithout and with intravenous contrast. ESRC.2.7.3 COMPARISON: No direct comparisons available. FINDINGS: Lower Thorax: Limited images through the lung bases are unremarkable. Liver: No significant fat or iron deposition in the liver. A fewsubcentimeter liver cysts measuring for example 0.2 cm posterior righthepatic lobe series 5 image 7. No definitely suspicious focal liver lesionis seen. Gallbladder/Biliary Tree: Gallbladder present and partially decompressed.No biliary ductal dilatation. Spleen: 10.3 cm in length. Pancreas: A few subcentimeter side branch IPMN's in the pancreas measuringfor example 5 mm in the tail series 5 image 17. Large cystic structure along the pancreatic head measuring 2.8 x 3.5 x 3.3cm series 5 image 25 and series 4 image 12. No dilatation of the mainpancreatic duct. Based on morphology, query whether this structure is alarge side branch IPMN. No definitely enhancing suspicious featuresseen. Adrenal Glands: Normal. Kidneys/Ureters: No hydronephrosis. Subcentimeter cyst right kidney series5 image 23. Gastrointestinal: No bowel obstruction in the abdomen. Pelvic bowel notincluded in the qgcsn-qu-ouiw. Colonic diverticulosis without acutediverticulitis. Lymph Nodes: Subcentimeter in short axis lymph nodes. Vessels: Atherosclerotic disease. Celiac trunk and superior mesentericartery are patent. Main portal vein is patent. Peritoneum/Retroperitoneum: No significant free fluid. Bones/Soft Tissues: Degenerative changes in the spine. IMPRESSION: Large 2.8 x 3.5 x 3.3 cm cystic structure appears to be arising from thepancreatic head/uncinate process, possibly a large side branch IPMN. Nodefinite suspicious enhancing features seen. Consider endoscopicultrasound to further evaluate. Walter Conrad MD IMG MR ROBERTO CARLOS TRAN documented in this encounter Visit Diagnoses Diagnosis Pancreatic lesion documented in this encounter Administered Medications Inactive Administered Medications - up to 3 most recent administrations Medication Order MAR Action Action Date Dose Rate Site gadoteridol (Prohance) injection 4,189.5 mg 4,189.5 mg (15 mL), intravenous, Once in imaging, Starting on Yael 07/29/22 at 1228, For 1 dose Given 07/29/2022 12:28 PM EDT 4,189.5 mg documented in this encounter Additional Health Concerns Assessment Noted Time A fall risk assessment has been complete d for the patient 07/13/2022 2:08 PM EDT documented as of this encounter
--- OUTSIDE RECORDS SUMMARY | 2023-11-14 01:05 | XMS_ITS | Encounter Summary ---
Author Organization [facility] Address [address], [place], [place] [address] Phone Care Team Providers Care Fur Feeder Name Role Phone Unavailable Primary Care Provider Unavailabl e Reason for Referral * Outpatient Surgery (Routine) - Closed Specialty Diagnoses / Procedures Referred By Farrah shook Referred To Contact Gastroenterology Diagnoses IPMN (intraductal papillary mucinous neoplasm) Procedures Endoscopic Ultrasound w FNA IA EDG US EXAM SURGICAL ALTER STOM DUODENUM/JEJUNUM IA EGD US GUIDED TRANSMURAL INJXN/FIDUCIAL MARKER IA INJX ANES CELIAC PLEXUS W/WO RADIOLOGIC MONITRNG IA EGD US GUIDED TRANSMURAL INJXN/FIDUCIAL MARKER IA EGD INTRMURAL US NEEDLE ASPIRATE/BIOPSY ESOPHAGS IA ESOPHAGOSCOPY INTRA/TRANSMURAL NEEDLE ASPIRAT/BX IA EGD INTRMURAL NEEDLE ASPIR/BIOP ALTERED ANATOMY IA ESOPHAGOSCOPY FLEXIBLE TRANSORAL ULTRASOUND EXAM [facility] [address] [facility] [address] [place] [id number] Referral ID Status Reason Start Date Expiration Date Visits Re quested Visits Authorized [id number] Closed 08/02/2022 08/02/2023 1 1 Reason for Visit * Outpatient Surgery (Routine) - Closed Specialty Diagnoses / Procedures Referred By Farrah shook Referred To Contact Gastroenterology Diagnoses IPMN (intraductal papillary mucinous neoplasm) Procedures Endoscopic Ultrasound w FNA IA EDG US EXAM SURGICAL ALTER STOM DUODENUM/JEJUNUM IA EGD US GUIDED TRANSMURAL INJXN/FIDUCIAL MARKER IA INJX ANES CELIAC PLEXUS W/WO RADIOLOGIC MONITRNG IA EGD US GUIDED TRANSMURAL INJXN/FIDUCIAL MARKER IA EGD INTRMURAL US NEEDLE ASPIRATE/BIOPSY ESOPHAGS IA ESOPHAGOSCOPY INTRA/TRANSMURAL NEEDLE ASPIRAT/BX IA EGD INTRMURAL NEEDLE ASPIR/BIOP ALTERED ANATOMY IA ESOPHAGOSCOPY FLEXIBLE TRANSORAL ULTRASOUND EXAM [facility] [address] [facility] [address] [place] [address] Referral ID Status Reason Start Date Expiration Date Visits Re quested Visits Authorized [id number] Closed 08/02/2022 08/02/2023 1 1 Encounter Details Date Type Department Care Team (Late st Contact Info) Description 08/19/2022 11:37 AM EDT - 08/19/2022 11:59 PM EDT Hospital Encounter [facility] [address] [place] [address] Todd Chairez MD [address] [facility] [place] [facility] [place] [address] Dotty Harrell MD [address] [place] [address] Cm Uribe [address] [facility] [address] [place] [address] IPMN (intraductal papillary mucinous neoplasm) Discharge Disposition: DISCHARGED TO HOME OR SELF [...] Sign Reading Time Taken Comments Blood Pressure 121/81 08/19/2022 3:23 PM EDT Pulse 64 08/19/2022 3:23 PM EDT Temperature 35.8 ??C (96.4 ??F) 08/19/2022 2:56 PM ED T Respiratory Rate 21 08/19/2022 3:23 PM EDT Oxygen Saturation 100% 08/19/2022 3:23 PM EDT Inhaled Oxygen Concentration - - Weight 67.1 kg (148 lb) 08/19/2022 12:12 PM EDT Height 175.3 cm (5' 9) 08/19/2022 12:12 PM EDT Body Mass Index 21.86 08/19/2022 12:12 PM EDT documented in this encounter Discharge Instructions * Discharge Instructions* Heladio Foster - 08/19/2022 3:05 PM EDT Anesthesia Discharge Instructions Do not drive for 24 hours Do not operate machinery for 24 hours Do not drink alcoholic beverages for 24 hours Do not do strenuous activities today; Resume normal activities tomorrow Do not sign legal papers today; you will not have the best judgement today If you have any concerns or questions,call your MD . documented in this encounter Medications at Time of Discharge Medication Sig Dispensed Refills Start Date End Date ascorbic phtm-ifynxgde-twz (Emergen-C) 1,000 mg powder effervescent in packet Take by mouth once daily. 03/28/2019 ibuprofen 200 mg tablet Take by mouth if needed. PRN 03/28/2021 multivit with minerals/lutein (MULTIVITAMIN 50 PLUS ORAL) Take by mouth once daily. 03/28/2022 omega 1-avy-jvx-fish oil 1,000 mg (120 mg-180 mg) capsule [...] 09/06/19 24 documented as of this encounter H&P Notes * Todd Chairez MD - 08/19/2022 1:30 PM EDT ENDOSCOPY PROVIDER PRE-PROCEDURE HISTORY AND PHYSICAL NAME:Gianna Infante : 1945 DATE: 08/19/2022 TIME: 12:50 PM Indication For Procedure/HPI: Gianna Infante is a 76 y.o. year old presenting for evaluation of pancreatic cyst. PMHx: Reviewed in [facility] and with patient. PSHx: Reviewed in [facility] and with patient. Medications: Current Outpatient Medications on File Prior to Encounter Medication Sig Dispense Refill ascorbic ibzh-ntpiosmo-geo (Emergen-C) 1,000 mg powder effervescent in packet atorvastatin (Lipitor) 40 mg tablet Take 1 tablet (40 mg) by mouth once daily. 90 tablet 1 ibuprofen 200 mg tablet magnesium 250 mg tablet melatonin 0.5 mg tablet split tablet multivit with minerals/lutein (MULTIVITAMIN 50 PLUS ORAL) omega 2-xmo-yyz-fish oil 1,000 mg (120 mg-180 mg) capsule polyvinyl alcohol-povidon,PF, (Refresh Classic, PF,) 1.4-0.6 % eye drops in a dropperette zoledronic acid/mannitol-water (RECLAST IV) Infuse into a venous catheter. EPINEPHrine (Epipen) 0.3 mg/0.3 mL injection syringe Inject 0.3 mL (0.3 mg) as directed if needed for anaphylaxis. Call 911 after use. (Patient not taking: Reported on 08/19/2022) 1 each 0 LORazepam (Ativan) 1 mg tablet Take 1 tablet (1 mg) by mouth every 6 (six) hours if needed for anxiety for up to 1 day. Take one (1) tablet 1-2 hours prior to their MRI appointment. If still anxious,take 2nd tablet immediately prior to going into the MRI scanner 2 tablet 0 No current facility-administered medications on file prior to encounter. Scheduled Meds:lactated Ringer's, , , Continuous Infusions:lactated Ringer's, 50 mL/hr PRN Meds:PRN medications: lactated Ringer's Allergies: Allergies Allergen Reactions Bee Venom Protein (Honey Bee) Anaphylaxis Fluoxetine Other reaction(s): Other (See Comments), Other (See Comments) paranoid Paranoid Paranoid Estrogens, Conjugated Hymenoptera Allergenic Extract Serotonin Hallucinations Wasp Venom Trazodone Anxiety Social History: Reviewed in [facility] and with patient. Family History: Reviewed in [facility] and with patient. Review of Systems 12 point review of systems performed and negative other than as previously mentioned. Physical Exam Vital signs were reviewed in [facility]. Gen: NAD HEENT: NCAT Pulmonary: CTAB CV: regular Abdomen: soft, nt/nd Extremities: no edema, warm Skin: no rashes LABS: Reviewed in [facility] IMAGING: Reviewed in [facility]. ASSESSMENT: I have reviewed/confirmed with [...] documented in this encounter Nursing Notes * Jaxson Mijares - 08/19/2022 2:47 PM EDT Egd with eus fna of pancreatic cyst * Jaxson Mijares - 08/19/2022 2:15 PM EDT MD changing over to linear eus scope at this time. EUS scope in at 1417 documented in this encounter Miscellaneous Notes * Perioperative Nursing Note - Heladio Foster - 08/19/2022 3:25 PM EDT Discharge instructions reviewed with pt and friend. Both expressed understanding with no further questions. VSS. All belongings returned to pt at time of discharge. Discharged to personal vehicle viawheel chair with friend as cdl b driver in no apparent distress. * Perioperative Nursing Note - Heladio Foster - 08/19/2022 3:17 PM EDT Procedural MD at bedside reviewing results. Pt and cdl b driver questions answered by MD. Pt in NAD. * PatientPass - Rebecca Chilel MD - 08/19/2022 3:04 PM EDT Patient Education Table of Contents Endoscopic Ultrasound Monitored Anesthesia Care, Care After Upper Endoscopy, Adult To view videos and all your education online visit, [email or web address] or scan this QR code with your smartphone. Access to this content will in one year. * Perioperative Nursing Note - Heladio Foster - 08/19/2022 3:00 PM EDT Pt's friend at bedside. Pt in NAD. * Perioperative Nursing Note - Heladio Foster - 08/19/2022 2:56 PM EDT Arrived to PACU from ENDO 1 via stretcher. Report received from Manuel Puri RN and CON Hidalgo/POORNIMA. EGD/EUS completed with FNA per Dr Chairez. VSS. Pt laying in NAD. documented in this encounter Plan of Treatment Upcoming Encounters Date Type Department Care Team (Late st Contact Info) Description 01/04/2024 11:20 AM EDT Procedure Visit [facility] [address] [facility] Medical Office [place] Floor 9 [place] [address] Katie Jnoes AUD 01/06/2024 2:00 PM EDT Appointment [facility] [address] [place] [address] 01/09/2024 2:00 PM EDT Office Visit [facility] [address] [facility] Medical Office [place] 19th Floor [address] [place] [address] Radha Coker MD [address] [place] [address] 01/10/2024 8:30 AM EDT Office Visit [facility] [address] [place] [address] Sydnee Ross, [address] [facility] [place] [address] 01/11/2024 10:00 AM EDT Office Visit [facility] [address] [place] [address] Kat Rico, PATTIE [address] [place] [address] 01/20/2024 11:45 AM EDT Clinical Support [facility] [address] [place] [address] Maria Eugenia Lucero, [facility] [address] [place] [address] 01/30/2024 8:40 AM EST Office Visit [facility] [address] [facility] [place] 15th Floor [address] [place] [address] Jose Monique MD [address] [facility] Office [place] 15th Floor, [address] [place] [address] 02/27/2024 12:50 PM EST Office Visit [facility] [address] [facility] [address] 4 [address] [place] [phone] Kellie Bowser, OD [address] [facility] [address] 4, [address] [facility] [place] [address] 06/19/2024 11:30 AM EDT Appointment [facility] [address] [place] [address] 06/19/2024 1:00 PM EDT Appointment [facility] [address] [place] [address] 08/21/2024 1:40 PM EDT Office Visit [facility] [address] [facility] [address] [facility] [address] 3rd Floor [place], [place] [id number] Satya Wright PA [address] [facility] [address] 3rd [place] [address] 09/05/2024 10:30 AM EDT Office Visit [facility] [address] [address] Tatiana Dominguez NP [address] [place] [address] documented as of this encounter Procedures Procedure Name Priority Date/Time Associated Diagnosis Comments ENDOSCOPIC ULTRASOUND Routine 08/19/2022 2:54 PM EDT IPMN (intraductal papillary mucinous neoplasm) FINE NEEDLE ASPIRATION Routine 08/19/2022 2:37 PM EDT IPMN (intraductal papillary mucinous neoplasm) documented in this encounter Results * Endoscopic Ultrasound w FNA (08/19/2022 2:54 PM EDT) Anatomical Region Laterality Modality Endoscopy 08/19/2022 1:56 PM EDT Narrative 08/19/2022 3:09 PM EDT [facility] Patient Name: Gianna Infante , ? Procedure Date: 08/19/2022 1:56 PM ? Date of : 1945 ?Admit Type: Outpatient Age: 76 ? Gender: Female Note Status: Finalized ?Attending MD: Todd Chairez MD Patient Location: [id number] ?Instrument Name: GFUCT [id number] ERIC/COMPA,GIF HQ [id number] WHITE/RED Number of Addenda: 0 Procedure Date: ?08/19/2022 [...] verified by the physician, the nurse, the denture technician ? and the instrument and electrical technician in the endoscopy suite. ASA Grade [...] second part of duodenum. The GIF HQ [id number] ? WHITE/RED was introduced through the mouth, [...] Procedure Code(s): ? --- Professional --- ? 24158, Esophagogastroduodenoscopy, flexible, ? transoral; with transendoscopic ultrasound- guided ? intramural or transmural fine needle ? aspiration/biopsy(s), (includes endoscopic ultrasound ? examination limited to the esophagus, stomach or ? duodenum, and adjacent structures) Diagnosis Code(s): ? --- Professional --- ? K86.2, Cyst of pancreas ? D49.0, Neoplasm of unspecified behavior of digestive ? system CPT copyright 2021 [employer]. All rights reserved. The codes documented in this report are preliminary and upon mechanical insulator review may be revised to meet current [...] Procedure Note Todd Chairez MD - 08/19/2022 [facility] Patient Name: Gianna Infante , Procedure Date: 08/19/2022 1:56 PM Date of : 1945 Admit Type: Outpatient Age: 76 Gender: Female Note Status: Finalized Attending MD: Todd Chairez MD Patient Location: [id number] Instrument Name: UCT [id number] REYES/COMPA,GIF HQ [id number] WHITE/RED Number of Addenda: 0 Procedure Date: [...] the physician, the nurse, theanesthetist and the instrument and electrical technician in the endoscopy suite. ASAGrade Assessment: [...] second part of duodenum. The GIF HQ [id number] WHITE/RED was introduced through the mouth, and [...] previously scheduled. Procedure Code(s): --- Professional --- 15483, Esophagogastroduodenoscopy, flexible, transoral; with transendoscopic ultrasound-guided intramural or transmural fine needle aspiration/biopsy(s), (includes endoscopicultrasound examination limited to the esophagus, stomach or duodenum, and adjacent structures) Diagnosis Code(s): --- Professional --- K86.2, Cyst of pancreas D49.0, Neoplasm of unspecified behavior ofdigestive system CPT copyright 2020 [employer]. All rights reserved. The codes documented in this report are preliminary and upon mechanical insulator reviewmay be revised to meet current compliance requirements. Attending Participation: I personally performed the entire procedure. Todd Chairez MD 08/19/2022 3:09:46 PM This report has been signed electronically by: Todd Chairez MD Note Initiated On: 08/19/2022 1:56 PM Total Procedure Duration Time 0 hours 34 minutes 45 seconds Scope In: 2:12:52 PM Scope Out: 2:47:37 PM Walter Love MD ENDOSCOPY PROCE DURE ORDERABLES * Fine Needle Aspiration (08/19/2022 2:37 PM EDT) Case Report Non-Gynecolog y Cytology ? Case: [id number] ? Authorizing Provider: ??Todd Chairez MD ?Collected: ? 08/19/2022 1437 ? Ordering Location: ? [facility] ? Received: ?08/20/2022 0748 ? Hospital ? Pathologist: ? Marissa Little, ? MD ? Specimen: ?Pancreas, fine needle aspiration, FNA pancreatic cyst ? 08/27/2022 1:03 PM EDT [facility] Addendum Refer to CEA and Amylase fluid testing results below. EBBD/elme, 08/27/2022 08/27/2022 1:03 PM EDT [facility] Addendum electronically signed by Marissa Little MD on 08/27/2022 at 1:03 PM Specimen/Sourc e Pancreas Cyst, Fine Needle Aspiration 08/27/2022 1:03 PM EDT [facility] Cytologic Diagnosis Negative for malignant cells. 08/27/2022 1:03 PM EDT [facility] Comment: Pancreatic cyst, thin prep slide: Negative for malignant cells. Low cellularity specimen with degenerated ductal epithelium, rare histiocytes and acellular debris. Clinical Information Pancreas cyst 08/27/2022 1:03 PM EDT [facility] Gross Description Received 30 cc of clear aspirated material and CytoLyt labeled ? Pancreatic Cyst? . The following stains/proced ures were performed and evaluated in order to establish a diagnosis: ThinPrep(s): 1 Also received fluid to send to [facility] for CEA/Amylase. 08/27/2022 1:03 PM EDT [facility] Fine Needle Aspirate (Pancreas, fine needle aspiration) 08/19/2022 2:37 PM EDT 08/20/2022 7:48 AM EDT Todd Chairez MD LAB CYTOLOGY ORDERAB LES [facility] [address] [place] [address] documented in this encounter Visit Diagnoses Diagnosis IPMN (intraductal papillary mucinous neoplasm) Neoplasm of unspecified nature of digestive system documented in this encounter Additional Health Concerns Assessment Noted Time A fall risk assessment has been complete d for the patient 08/17/2022 2:12 PM EDT documented as of this encounter
--- OUTSIDE RECORDS SUMMARY | 2023-11-14 01:05 | XMS_ITS | Encounter Summary ---
Author Organization [facility] Address [address] [place] [address], [place] [address] Phone Care Team Providers Care Personal Development Mentor Name Role Phone Unavailable Primary Care Provider Unavailabl e Reason for Visit * Reason Onset Date Comments Med Refill 08/18/2022 Encounter Details Date Type Department Care Team (Late st Contact Info) Description 08/18/2022 Telephone [facility]GP [facility]OR[facility] [phone] Earl Flynn MD [address] [place] [address] [facility] [place] [address] Med Refill Social History Tobacco Use Types [...] encounter Miscellaneous Notes * Addendum Note - Karen Chung - 08/18/2022 10:07 AM EDTAddended by: KAREN CHUNG on: 08/18/2022 10:07 AM Modules accepted: Orders * Telephone Encounter - Stephanie Clinton - 08/18/2022 9:50 AM EDT ..CLINICAL CONCERN Concern / Question: PER PT CALLING TO REQUEST RX FOR CLAUSTROPHOBIA PT HAS MRI SCHEDULED FOR 09/07/2022. PLEASE SEND RX TO PT PHARMACY ON FILE. PLEASE CALL PT TO ADVISE PHARMACY: [facility] PHONE: [phone] documented in this encounter Plan of Treatment Upcoming Encounters Date Type Department Care Team (Late st Contact Info) Description 01/04/2024 11:20 AM EDT Procedure Visit [facility] [address] [facility] Medical Office [place] Floor 9 [place] [address] Katie Jones AUD 01/06/2024 2:00 PM EDT Appointment [facility] [address] [place] [address] 01/09/2024 2:00 PM EDT Office Visit [facility] [address] [facility] Office [place] 19th Floor [address] [place] [address] Radha Coker MD [address] [place] [address] 01/10/2024 8:30 AM EDT Office Visit [facility] [address] [place] [address] Sydnee Ross DO [address] [facility] [place] [address] 01/11/2024 10:00 AM EDT Office Visit [facility] [address] [place] [address] Kat Rico, PATTIE [address] [place] [address] 01/20/2024 11:45 AM EDT Clinical Support [facility] [address] [place] [address] Maria Eugenia Lucero, [facility] [address] [place] [address] 01/30/2024 8:40 AM EST Office Visit [facility] [address] [facility] [place] 15th Floor [address] [place] [address] Jose Monique MD 550 [facility] Office [place] 15th Floor, [address] [place] [address] 02/27/2024 12:50 PM EST Office Visit [facility] [address] [facility] [address] 4 [address] [place] [address] Kellie Bowser, OD [address] [facility] [address] 4, [address] [facility] [place] [address] 06/19/2024 11:30 AM EDT Appointment [facility] [address] [facility] [address] [place] [address] 06/19/2024 1:00 PM EDT Appointment [facility] [address] [facility] [address] [place] [address] 08/21/2024 1:40 PM EDT Office Visit [facility] [address] [facility] [address] 3rd [place] [address] Satya Wright PA [address] [facility] [address] 3rd [place] [address] 09/05/2024 10:30 AM EDT [facility] [address] [place] [address] Tatiana Dominguez, KASH [address] [place] [address] documented as of this encounter Visit Diagnoses Not on filedocumented in this encounter Additional Health Concerns Assessment Noted Time A fall risk assessment has been complete d for the patient 08/17/2022 2:12 PM EDT documented as of this encounter
--- OUTSIDE RECORDS SUMMARY | 2023-11-14 01:05 | XMS_ITS | Encounter Summary ---
Author Organization [facility] Address [address] [place] [address], [place] [address] Phone Care Team Providers Care Commercial Real Estate Paralegal Name Role Phone Unavailable Primary Care Provider Unavailabl e Reason for Referral * Consultation (Routine) - Closed Specialty Diagnoses / Procedures Referred By Farrah shook Referred To Contact Orthopaedics Diagnoses Neck pain Low back pain, unspecified back pain laterality, unspecified chronicity, unspecified whether sciatica present Sydnee Ross DO [address] [place] [address] Referral ID Status Reason Start Date Expiration Date V isits Requested Visits Authorized [id number] Closed Specialty Services Required 07/08/2022 07/08/2023 1 1 Scheduling Instructions Please call [phone] to schedule. Reason for Visit * Reason Comments Neck Pain Headache Encounter Details Date Type Department Care Team (Late st Contact Info) Description 07/08/2022 11:00 AM EDT Office Visit [facility] [address] [place] [address] Sydnee Ross DO [address] [facility] [place] [address] Neck pain (Primary Dx); Low back pain, unspecified back pain laterality, unspecified chronicity, unspecified whether sciatica present; Insomnia, unspecified type Social History Tobacco Use Types [...] suspected to have Coronavirus/COVID-19? No / Unsure 07/08/2022 10:35 AM EDT documented as of this encounter Last Filed Vital Signs Vital Sign Reading Time Taken Comments Blood Pressure 140/70 07/08/2022 11:17 AM EDT Pulse 72 07/08/2022 11:17 AM EDT Temperature 36.7 ??C (98.1 ??F) 07/08/2022 1 1:17 AM EDT Respiratory Rate - - Oxygen Saturation - - Inhaled Oxygen Concentration - - Weight 67.5 kg (148 lb 12.8 oz) 023 11:17 AM EDT Height 175.3 cm (5' 9) 07/08/2022 11:1 7 AM EDT Body Mass Index 21.97 07/08/2022 11:17 AM EDT documented in this encounter Progress Notes * Sydnee Ross DO - 07/08/2022 11:00 AM EDT Subjective Patient ID: Gianna Infante is a 76 y.o. female who presents for Neck Pain and Headache. HPI Has been seeing physical therapy for neck and back pain. Has gained range of motion in her neck. Neck pain persistent, radiating up head. No prescribed a pain. Hx: Neck pain for years. Worsened over past 6 months. No upper extremity pain, numbness, paresthesias. Taking 400mg ibuprofen bid and tylenol. No past injuries History of vertebral compression fracture at T11 and T12 2018, seen on repeat imagine 2021 per patient. However pain patient is experiencing is in left SI joint. Insomnia: working with therapist, cbt, melatonin Had issues with ssri's in the past- hallucinating July 4: Upcoming scan to follow up pancreas nodule Review of Systems All other systems reviewed and are negative. Visit Vitals BP 140/70 (BP Location: Left arm) Pulse 72 Temp 36.7 ??C (98.1 ??F) (Temporal) Objective Physical Exam Constitutional: Appearance: Normal appearance. HENT: Head: Normocephalic and atraumatic. Cardiovascular: Rate and Rhythm: Normal rate and regular rhythm. Heart sounds: Normal heart sounds. Pulmonary: Effort: Pulmonary effort is normal. Breath sounds: Normal breath sounds. Abdominal: General: Abdomen is flat. Bowel sounds are normal. There is no distension. Palpations: Abdomen is soft. Tenderness: There is no abdominal tenderness. Musculoskeletal: Cervical back: Neck supple. Right lower leg: No edema. Left lower leg: No edema. Comments: 5/5 b/l UE and LE strength No spinal ttp Decreased cervical rom, pos spurling b/l Skin: General: Skin is warm. Neurological: General: No focal deficit present. Mental Status: She is alert. Psychiatric: Mood and Affect: Mood normal. Behavior: Behavior normal. Judgment: Judgment normal. Assessment/Plan 1. Neck pain Obtain cervical x-ray and refer to orthopedics. Continue PT - Ambulatory referral to Orthopaedic Surgery; Future - XR Spine Cervical 2-3 Views; Future 2. Low back pain, unspecified back pain laterality, unspecified chronicity, unspecified whether sciatica present Patient is experiencing pain in her left SI joint. No pain where her previous compression fractureswere located. Has been working with PT, pain persistent. Refer to orthopedics - Ambulatory referral to Orthopaedic Surgery; Future 3. Insomnia, unspecified type Patient not interested in pharmacologic therapy at this time. I agree to hold off if possible. willcontinue CBT and behavioral interventions. Information provided. documented in this encounter Plan of Treatment Upcoming Encounters Date Type Department Care Team (Late st Contact Info) Description 01/04/2024 11:20 AM EDT Procedure Visit [facility] [address] [facility] [place] Floor 9 [place] [address] Katie Jones AUD 01/06/2024 2:00 PM EDT Appointment [facility] [address] [place] [address] 01/09/2024 2:00 PM EDT Office Visit [facility] [address] [facility] [place] 19th Floor [address] [place] [address] Radha Coker MD [address] [place] [address] 01/10/2024 8:30 AM EDT Office Visit [facility] [address] [place] [address] Vandana, Sydnee Ndiaye DO [address] [facility] [place] [address] 01/11/2024 10:00 AM EDT Office Visit [facility] [address] [facility] [address] [place] [address] Kat Rico, PA [address] [place] [address] 01/20/2024 11:45 AM EDT Clinical Support [facility] [address] [place] [address] Maria Eugenia Lucero, ORA [address] [place] [address] 01/30/2024 8:40 AM EST Office Visit [facility] [address] [facility] Medical Office [place] 15th Floor [address] [place] [address] Jose Monique MD [address] [facility] [place] 15th Floor, [address] [place] [address] 02/27/2024 12:50 PM EST Office Visit [facility] [address] [place] [address] Kellie Bowser, OD [address] [facility] [place] [address] 06/19/2024 11:30 AM EDT Appointment [place] [address] [place] [address] 06/19/2024 1:00 PM EDT Appointment [place] [address] [place] [address] 08/21/2024 1:40 PM EDT Office Visit [facility] at [address] [place] [address] NE 3rd [place] [address] Satya Wright PA [address] [facility] [place] 3rd Floor [place] [id number] 09/05/2024 10:30 AM EDT Office Visit [address] [place] [address] Tatiana Dominguez, BRAILLE TRANSCRIBER [address] [place] [address] [place] [address] Scheduled Referrals Name Type Priority Associated Diagnoses Orde r Schedule Ambulatory referral to Orthopaedic Surgery Outpatient Referral Routine Neck pain Low back pain, unspecified back pain laterality, unspecified chronicity, unspecified whether sciatica present Expected: 07/08/2022 (Approximate), Expires: 07/09/2023 documented as of this encounter Results * XR Spine Cervical [...] in this encounter Visit Diagnoses Diagnosis Neck pain- Primary Cervicalgia Low back pain, unspecified back pain laterality, unspecified chronicity, unspecified whether sciatica present Insomnia, unspecified type Neck pain Cervicalgia documented in this encounter Additional Health Concerns Assessment Noted Time A fall risk assessment has been complete d for the patient 07/08/2022 11:18 AM EDT documented as of this encounter
--- OUTSIDE RECORDS SUMMARY | 2023-11-14 01:05 | XMS_ITS | Encounter Summary ---
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 Alexander. Moved from [place] to [place]. Hx of macular pucker left eye (OS). Previously followed by Dr. Coon in [place] -mild epiretinal membrane (ERM) without traction, observe PVD both eyes -no new symptoms -ssRD Pseudophakia both eyes (OU) Status post (s/p) CEIOL 05/2020 both eyes (OU) -poss positive dysphotopsia, though had similar glare prior to ce/iol Follow up: as needed, annual with OD Subjective Patient ID: Gianna Infante is a 76 y.o. female. Chief Complaint Blurred Vision HPI Blurred Vision In both eyes. Comments Patient states vision is bad due to Macular Pucker left eye (OS) , sts she has trouble driving at night. Patient states she broke her current glasses and has been using her sunglasses when driving. C/o flashes and floaters both eyes (OU) C/o halos at night pt had Cataract Sx both eyes (OU) in 2020 Distance visual acuity (VA) left eye (OS) is wavy Denies eye pain C/o Dry eyes both eyes (OU) Refresh TID-QID both eyes (OU) Last edited by Balaji Reddy on 06/07/2022 9:23 AM. No current outpatient medications on file. (Ophthalmic Drugs) Current Outpatient Medications (Other) Medication Sig ascorbic ypov-hcxpqwzi-oge (Emergen-C) 1,000 mg powder effervescent in packet atorvastatin (Lipitor) 40 mg tablet Take 1 tablet (40 mg) by mouth once daily. ibuprofen 200 mg tablet magnesium 250 mg tablet melatonin 0.5 mg tablet split tablet multivit with minerals/lutein (MULTIVITAMIN 50 PLUS ORAL) omega 5-icw-ebb-fish oil 1,000 mg (120 mg-180 mg) capsule omeprazole (PriLOSEC) [address] capsule Take 1 capsule (40 mg) by mouth before breakfast. Do not crush or chew. polyvinyl alcohol-povidon,PF, (Refresh Classic, PF,) 1.4-0.6 % eye drops in a dropperette vitamin K2 40 mcg tablet Take by mouth. zoledronic acid/mannitol-water (RECLAST IV) Infuse into a venous catheter. Objective Base Eye Exam Visual Acuity (Snellen - Linear) Right Left Dist cc 20/20 20/40 Correction: Glasses Tonometry (I Care (rebound tonometry), 9:23 AM) Right Left Pressure 24 20 Pupils Pupils Right PERRL Left PERRL Visual Adkins Left Right Full Full Extraocular Movement Right Left Full Full Neuro/Psych Oriented x3: Yes Mood/Affect: Normal Dilation Both eyes: 1.0% Mydriacyl, 2.5% Phenylephrine @ 9:40 AM Slit Lamp and Fundus Exam External Exam Right Left External Normal Normal Slit Lamp Exam Right Left Lids/Lashes Normal Normal Conjunctiva/Sclera White and quiet White and quiet Cornea Central polygonal stromal opacities Central polygonal stromal opacities Anterior Chamber Deep and quiet Deep and quiet Iris Round and reactive Round and reactive Lens PCIOL PCIOL Anterior Vitreous Posterior vitreous detachment vitreous detachment Fundus Exam Right Left Disc Normal Normal C/D Ratio 0.35 0.35 Macula small flat nevus temporal mild ERM Vessels Normal Normal Periphery Normal cobblestones Refraction Wearing Rx Sphere Cylinder [place] Right -2.50 +1.25 111 Left -3.00 +1.75 077 Manifest Refraction Sphere Cylinder [place] Dist VA Add Near VA Right -2.50 +1.25 110 20/20 +2.50 J1+ Left -3.00 +1.75 090 20/30-2 +2.50 J1+ Final Rx Sphere Cylinder [place] Dist VA Add Near VA Right -2.50 +1.25 110 20/20 +2.50 J1+ Left -3.00 +1.75 090 20/30-2 +2.50 J1+ Expiration Date: 06/08/2023 documented in this encounter Plan of Treatment Upcoming Encounters Date Type Department Care Team (Late st Contact Info) Description 01/04/2024 11:20 AM EDT Procedure Visit [facility] [address] [facility] Medical Office [place] Floor 9 [place] [address] Katie Jones AUD 01/06/2024 2:00 PM EDT Appointment [facility] [address] [place] [address] 01/09/2024 2:00 PM EDT Office Visit [facility] [address] [facility] [place] 19th Floor [address] [place] [address] Radha Coker MD 550 [place] [address] 01/10/2024 8:30 AM EDT Office Visit [facility] [address] [place] [address] Vandana, Sydnee Ndiaye DO [address] [facility] [place] [address] 01/11/2024 10:00 AM EDT Office Visit [facility] [address] [facility] [address] [place] [address] Kat Rico, PATTIE [address] [place] [address] 01/20/2024 11:45 AM EDT Clinical Support [facility] [address] [facility] [place] [address] Maria Eugenia Lucero LAC [address] [place] [address] 01/30/2024 8:40 AM EST Office Visit [facility] [address] [facility] Office [place] 15th Floor [address] [place] [address] Jose Monique MD 550 [facility] Office [place] 15th Floor, [address] [place] [address] 02/27/2024 12:50 PM EST Office Visit [facility] [address] [facility] [address] [place] [phone] Kellie Bowser, OD [address] [facility] [place] [address] 06/19/2024 11:30 AM EDT Appointment [place] [address] [address] 06/19/2024 1:00 PM EDT Appointment [place] [address] [address] 08/21/2024 1:40 PM EDT Office Visit [facility] [address] 3rd [place] [address] Satya Wright PA [address] [facility] 3rd [place] [address] 09/05/2024 10:30 AM EDT Office Visit [facility] [address] [place] [address] Tatiana Dominguez, KASH [address] [place] [address] documented as of this encounter Visit Diagnoses Diagnosis Macular pucker, left eye- Primary Macular puckering of retina 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
--- OUTSIDE RECORDS SUMMARY | 2023-11-14 01:05 | XMS_ITS | Encounter Summary ---
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 Name Role Phone Unavailable Primary Care Provider Unavailabl e Reason for Referral * Consultation (Routine) - Closed Specialty Diagnoses / Procedures Referred By Contac t Referred To Contact Spine Diagnoses Cervical radiculopathy Procedures [place] OFFICE/OUTPATIENT [facility] MDM 60-74 MINUTES Earl Flynn MD [address] [place] [address] Orthopa[facility] [address] Referral ID Status Reason Start Date Expiration Date V isits Requested Visits Authorized [id number] Closed Specialty Services Required 08/17/2022 08/17/2023 1 1 Scheduling Instructions Please call [phone] to schedule. * Imaging (Routine) - Closed Specialty Diagnoses / Procedures Referred By Contac t Referred To Contact Radiology Diagnoses Cervical radiculopathy Procedures MR Cervical Spine WO Contrast Earl Flynn MD [address] [place] [address] [facility] [place] [address] Referral ID Status Reason Start Date Expiration Date Visits Re quested Visits Authorized [id number] Closed 08/17/2022 09/16/2023 1 1 Reason for Visit * Reason Comments Pain NECK PAIN RADIATES T O HEAD; PATIENT STATED SHE HAS A CRUSHED T11-T12 IN 2019 * Consultation (Routine) - Closed Specialty Diagnoses / Procedures Referred By Contac t Referred To Contact Orthopaedics Diagnoses Neck pain Low back pain, unspecified back pain laterality, unspecified chronicity, unspecified whether sciatica present Style, Sydnee Ndiaye, DO [address] [place] [facility] [place] [address] Referral ID Status Reason Start Date Expiration Date V isits Requested Visits Authorized [id number] Closed Specialty Services Required 07/08/2022 07/08/2023 1 1 Encounter Details Date Type Department Care Team (Late st Contact Info) Description 08/17/2022 1:30 PM EDT Office Visit [facility] [address] [place] [address] Earl Flynn MD [address] [facility] [place] [address] Cervical radiculopathy (Primary Dx); Neck pain; Low back pain, unspecified back pain laterality, unspecified chronicity, unspecified whether sciatica present; Other idiopathic scoliosis, thoracolumbar region; Occipital neuralgia of left side; Degenerative disc disease, cervical Social History Tobacco Use Types Packs/Day Years [...] Sign Reading Time Taken Comments Blood Pressure 147/87 08/17/2022 2:19 PM EDT Pulse 87 08/17/2022 2:19 PM EDT Temperature - - Respiratory Rate 18 08/17/2022 2:19 PM EDT Oxygen Saturation - - Inhaled Oxygen Concentration - - Weight 66.2 kg (146 lb) 08/17/2022 2:00 PM EDT Height 176.5 cm (5' 9.5) 08/17/2022 2:00 PM EDT Body Mass Index 21.25 08/17/2022 2:00 PM EDT documented in this encounter Patient Instructions * Patient Instructions* Libby Aguirre - 08/17/2022 1:30 PM EDT Please schedule MRI and follow up appointment with Dr. Giles. documented in this encounter Progress Notes * Mia Camilo - 08/17/2022 1:30 PM EDT Answers submitted by the patient for this visit: Spine Patient Questionnaire (Submitted on 08/10/2022) Chief Complaint: SPINE MYCHART PATIENT RFV Returning for same problem: no Reason for visit: to discuss BOTH their scoliosis or spinal deformity AND pain or some other problem in neck, back, arm or leg Primary complaint: neck Secondary complaint: left hip/groin Third complaint: no other body area has pain Red flags: hands seem more clumsy Problem cause: a chronic problem Medication types: over the counter medications like Advil/Tylenol, prescription anti-inflammatory Medication frequency: not at all Medication side effects: none of these Medication help: symptoms are relieved somewhat Physical therapy: have tried physical therapy and it helped a little Physical therapy when: 1 to 3 months ago PT begin date: 03/09/2022 PT end date: 07/12/2022 Home exercises: do home exercises more than 4 times per week Spinal injections: have not had any spinal injections for their current problem Prior studies: regular X-ray of spine Problem impact: limits both their abilities to work and perform recreational activities Prior activity: working Missed work: have retired and unrelated to current problem Like job: like their job somewhat Prior surgeries: left knee replacement, right knee replacement Neck pain description: burning pain, shooting pain, aching pain Neck pain trending: steadily worsening Neck pain worst: 6 Neck pain average: 5 Neck pain frequency: 90% Neck resting pain reflief: 60% Neck pain worse: standing, walking Neck pain better: lying down Left hip/groin pain description: sharp pain, dull pain Left hip/groin pain trending: staying about the same Left hip/groin pain worst: 6 Left hip/groin pain average: 3 Left hip/groin pain frequency: 20% Left hip/groin resting pain relief: 80% Left hip/groin pain worse: sitting, standing, walking Left hip/groin pain better: lying down * Earl Flynn MD - 08/17/2022 1:30 PM EDT Patient ID: Gianna Infante is a 76 y.o. female. Chief Complaint Chief Complaint Patient presents with Neck - Pain NECK PAIN RADIATES TO HEAD; PATIENT STATED SHE HAS A CRUSHED T11-T12 IN 2019 History of Present Illness This 76-year-old female [...] either upper extremity. She does take occasional hgoh-tlw-daudymg ibuprofen with some benefit, she states acetaminophen typically does not help her. She has had no injections in her neck or back. She believes she had an MRI of her cervical spine in [place] but we do not have records or films to review today. She is recently relocated here to [place]. The patient's primary reason for visit is to discuss BOTH their scoliosis or spinal deformity AND pain or some other problem in neck, back, arm or leg and they state that they have neck pain, and no other body area has pain pain. Neck: The patient describes their pain as having burning pain, shooting pain and aching pain and it is steadily worsening with 6/10 pain at its worst, 5/10 pain on average, 90% pain during waking hours, and 60% pain relief in most comfortable position. Pain is worse while standing and walking. Pain is better while lying down. Left Hip/Groin: The patient describes their pain as having sharp pain and dull pain and it is staying about the same with 6/10 pain at its worst, 3/10 pain on average, 20% pain during waking hours, and 80% pain relief in most comfortable position. Pain is worse while sitting, standing and walking. Pain is better while lying down. The patient has experienced the following: hands seem more clumsy. Their problem was caused by a chronic problem. They are taking the following medication types: over the counter medications like Advil/Tylenol and prescription anti- inflammatory and using them not at all and symptoms are relieved somewhat. They have tried physical therapy and it helped a little 1 to 3 months ago and started on 03/09/2022 and ended on 07/12/2022 and they do home exercises more than 4 times per week. They have not had any spinal injections for their current problem. They have had the following studies performed: regular X-ray of spine. Their problem limits both their abilities to work and perform recreational ac tivities and they were working before the problem occurred. They have retired and unrelated to current problem and like their job somewhat. Prior Surgeries: The patient has had the following surgeries performed: left knee replacement and right knee replacement. Relevant PMH/PSH for spine Past Medical History Diagnosis Date Anxiety 1951 Arthritis of both hands 06/10/2015 Right > left Cataract 2012 Chronic constipation 08/2021 Chronic neck pain 03/26/2022 Colon polyp 2007 Compression fracture of body of thoracic vertebra (CMS/HCC) 02/17/2022 Diverticulosis 03/26/2022 Dry eyes 2012 Dysphagia 10/2021 GERD (gastroesophageal reflux disease) Heart murmur 1989 History of basal cell carcinoma (BCC) 06/18/2011 B/w right eye and nose. 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 Osteoporosis 2011 Other hyperlipidemia 02/17/2022 Pancreatic lesion 03/26/2022 Pseudophakia, both eyes Situational mixed anxiety and depressive disorder 07/27/2019 Spondylosis of lumbosacral spine without myelopathy 06/27/2008 Thyroid nodule 03/26/2022 Varicose veins 01/13/2011 Past Surgical History: Procedure Laterality Date CATARACT EXTRACTION Bilateral 2020 CE-IOL OU JOINT REPLACEMENT 12/2018 & 05/2021 TOTAL KNEE ARTHROPLASTY Bilateral 2017 and 2021 VASCULAR SURGERY 1979?-Varicose vein stripping in both legs Social History Socioeconomic History Marital status: Single Tobacco Use Smoking status: Never Smokeless tobacco: Never Substance and Sexual Activity Alcohol use: Yes Alcohol/week: 4.0 standard drinks of alcohol Types: 4 Glasses of wine per week Comment: 4 per week average Drug use: Never Sexual activity: Not Currently Partners: Male control/protection: Post-menopausal Family History Problem Relation Name Age of Onset Alcohol abuse Mother Amaris Infante Arthritis Mother Amaris Infante Depression Mother Amaris Infante Vision loss Mother Amaris Infante Cataracts Mother Amaris Infante Hip fracture Mother Amaris Infante Heart disease Father Hieu Infante Hypertension Father Hieu Infante Vision loss Father Hieu Infante Heart attack Father Hieu Infante Early natural Father Hieu Infante Allergies Allergen Reactions Bee Venom Protein (Honey Bee) Anaphylaxis Fluoxetine Other reaction(s): Other (See Comments), Other (See Comments) paranoid Paranoid Paranoid Estrogens, Conjugated Hymenoptera Allergenic Extract Serotonin Hallucinations Wasp Venom Trazodone Anxiety Current Outpatient Medications Medication Instructions ascorbic liil-aaxsaqji-htw (Emergen-C) 1,000 mg powder effervescent in packet No dose, route, or frequency recorded. atorvastatin (LIPITOR) 40 mg, oral, Daily EPINEPHrine (EPIPEN) 0.3 mg, injection, As needed, Call 911 after use. ibuprofen 200 mg tablet No dose, route, or frequency recorded. LORazepam (ATIVAN) 1 mg, oral, Every 6 hours PRN, Take one (1) tablet 1-2 hours prior to their MRI appointment. If still anxious, take 2nd tablet immediately prior to going into the MRI scanner magnesium 250 mg tablet No dose, route, or frequency recorded. melatonin 0.5 mg tablet split tablet No dose, route, or frequency recorded. multivit with minerals/lutein (MULTIVITAMIN 50 PLUS ORAL) No dose, route, or frequency recorded. omega 5-scu-zkc-fish oil 1,000 mg (120 mg-180 mg) capsule No dose, route, or frequency recorded. polyvinyl alcohol-povidon,PF, (Refresh Classic, PF,) 1.4-0.6 % eye drops in a dropperette No dose, route, or frequency recorded. zoledronic acid/mannitol-water (RECLAST IV) intravenous Vitals & Measurements Vitals: 08/17/22 1419 BP: 147/87 Pulse: 87 Resp: 18 Ortho Exam Spine Musculoskeletal Exam Gait Spastic: no Ataxic: none Tandem gait: normal Right Heel walk: able to heel walk Toe walk: able to toe walk Left Heel walk: able to heel walk Toe walk: able to toe walk Inspection Leg length disparity: no discrepancy Coronal balance: no imbalance Sagittal balance: no imbalance Cervical Spine Erythema: none Swelling: none Ecchymosis: none Deformity: none Prior incision: no previous incision Thoracolumbar Erythema: none Swelling: none Edema (right lower extremity): none Edema (left lower extremity): none Ecchymosis: none Deformity: none Prior incision: none Palpation Cervical Spine Tenderness: present Paraspinous: left Paraspinous left location: occipito-cervical and upper cervical Right Masses: none Spasms: none Crepitus: none Muscle tone: normal Left Masses: none Spasms: none Crepitus: none Muscle tone: normal Thoracolumbar Tenderness: present PSIS: left Right Masses: none Spasms: none Crepitus: none Muscle tone: normal Left Masses: none Spasms: none Crepitus: none Muscle tone: normal Range of Motion Thoracolumbar Flexion: 75%. Flexion detail: crepitus. Extension: 75%. Extension detail: crepitus. Right Lateral bendin%. Lateral bending detail: crepitus. Lateral rotation: 75%. Lateral rotation detail: crepitus. Left Lateral bendin%. Lateral bending detail: crepitus. Lateral rotation: 75%. Lateral rotation detail: crepitus. Strength Thoracolumbar Thoracolumbar motor exam is normal. Sensory Thoracolumbar Thoracolumbar sensation is normal. Reflexes Right Biceps: 1/4 Brachioradialis: 1/4 Triceps: 1/4 Quadriceps: 1/4 Achilles: 1/4 Live: absent Inverted brachioradialis: absent Clonus: none Left Biceps: 1/4 Brachioradialis: 1/4 Triceps: 1/4 Quadriceps: 1/4 Achilles: 1/4 Live: absent Inverted brachioradialis: absent Clonus: none Neurovascular Cervical Spine Cervical spine neurovascular exam is normal. Thoracolumbar Thoracolumbar neurovascular exam is normal. Special Tests Cervical Spine Right Spurling's: negative L'Hermitte's: negative Left Spurling's: negative L'Hermitte's: negative Thoracolumbar Karen's: absent Right SLR: no back or leg pain Left SLR: no back or leg pain Spine special tests additional comments: Tenderness over the left occipital nerve region at the skull base. General Constitutional: appears stated age, well-developed and well-nourished Scleral icterus: no Labored breathing: no Psychiatric: normal mood and affect and no acute distress Neurological: alert and oriented x3 Skin: intact Diagnostic Results - Imaging Imaging: AP, lateral, scoliosis radiographs performed 08/19/22 at [facility] are reviewed. These show good quality images. Soft tissue silhouettes are within normal limits. Normal-appearing bowel gas pattern. Bone density appears within normal limits. Age-indeterminate but chronic appearing compression fracture T12. Mild apex left degenerative scoliosis with mild cervicothoracic scoliosis. Multilevel spondylosis with straightening of the cervical spine. AP lateral open-mouth odontoid cervical x-ray 07/15/2022 Severe left-sided C1-2 arthrosis. Anterolisthesis C4-5. Multilevel spondylosis throughout the cervical spine. Diagnosis Encounter Diagnoses Name Primary? Neck pain Low back pain, unspecified back pain laterality, unspecified chronicity, unspecified whether sciatica present Other idiopathic scoliosis, thoracolumbar region Occipital neuralgia of left side Yes Degenerative disc disease, cervical Assessment/Plan 76-year-old female with primary complaint of neck pain radiating in a C2 nerve distribution with pain with rotation of the head. Her x-ray suggests C1-2 arthrosis. I recommended an MRI of the cervical spine to assess for stenosis and arthrosis. Anticipate she may benefit from injections pending completion of her MRI. Orders Placed This Encounter XR Spine Survey/Scoliosis 2-3 Views documented in this encounter Plan of Treatment Upcoming Encounters Date Type Department Care Team (Late st Contact Info) Description 01/04/2024 11:20 AM EDT Procedure Visit [facility] [address] [facility] Medical Office [place] Floor [address] [place] [id number] Katie Jones AUD 01/06/2024 2:00 PM EDT Appointment [facility] [address] [place] [address] 01/09/2024 2:00 PM EDT Office Visit [facility] [address] [facility] Medical Office [place] [address] [place] [address] Radha Coker MD [address] [place] [address] 01/10/2024 8:30 AM EDT Office Visit [facility] [address] [place] [address] Sydnee Ross, DO [address] [facility] [place] [address] 01/11/2024 10:00 AM EDT Office Visit [facility] Facial Plastic Surgery [address] [place] [address] Kat Rico, PATTIE [address] [place] [address] 01/20/2024 11:45 AM EDT Clinical Support [facility] [address] [place] [address] Maria Eugenia Lucero, ORA [address] [place] [address] 01/30/2024 8:40 AM EST Office Visit [facility] [address] [facility] [place] [address] [place] [address] Jose Monique MD [address] [facility] Office [place] [address], [address] [place] [address] 02/27/2024 12:50 PM EST Office Visit [facility] [address] [place] [id number] [phone] Kelile Bowser, OD [address] [facility] [place] [address] 06/19/2024 11:30 AM EDT Appointment [facility] [address] [place] [address] 06/19/2024 1:00 PM EDT Appointment [facility] [address] [place] [address] 08/21/2024 1:40 PM EDT Office Visit [facility] at [address] [facility] [address] 3rd [place] [address] Satya Wright PA [address] 3[address] [place] [address] 09/05/2024 10:30 AM EDT Office Visit [facility] [address] [place] [address] Tatiana Dominguez NP [address] [place] [address] [place] [address] Scheduled Referrals Name Type Priority Associated Diagnoses Orde r Schedule Ambulatory referral to Spine Center Outpatient Referral Routine Cervical radiculopathy Expected: 08/17/2022 (Approximate), Expires: 08/18/2023 documented as of this encounter Procedures Procedure Name Priority Date/Time Associated Diagnosis Comments XR SPINE SURVEY/SCOLIOSIS 2-3 VIEWS Routine 08/17/2022 3:07 PM EDT Other idiopathic scoliosis, thoracolumbar region documented in this encounter Results * MR Cervical Spine WO Contrast (09/07/2022 4:49 PM EDT) Anatomical Region Laterality Modality C-spine Magnetic Resonan ce 09/14/2022 1:34 PM EDT Impressions 09/14/2022 1:42 PM EDT 1. Significantly limited study given patient motion on the axial images. 2. Straightening of the normal cervical lordosis with 1 mm anterolisthesis of C3 on C4 and C4 on C5. 3. Multilevel degenerative disc disease, as above, with mild mass effect on the cord at C4-C5 and C5-C6 but no cord signal abnormality. Multilevel neural foramina narrowing also seen. Narrative 09/14/2022 1:42 PM EDT EXAM: MR CERVICAL SPINE WO CONTRAST CLINICAL INDICATION: ??radiculopathy. TECHNIQUE: Multiplanar, multisequence imaging of the cervical spine without contrast was performed. COMPARISON: None. FINDINGS: Limited study given significant patient motion on the axial images Alignment: Straightening of the normal cervical lordosis with 1 mm anterolisthesis of C3 on C4 and C4 on C5. Vertebral Bodies: Mild anterior osteophytosis of the mid cervical spine. Marrow Signal: Expected Intervertebral Discs: Disc space narrowing at C5-C6 and C6-C7 Spinal Cord: Normal in signal intensity. Included Intracranial Structures: Normal Paraspinal Soft Tissues: Normal Individual Levels: C1-C2: Normal C2-C3: No disc bulge. Left-sided uncovertebral and facet hypertrophy with mild to moderate left-sided neural foramina narrowing. C3-C4: Mild circumferential disc bulge with incomplete effacement of the ventral CSF space. Mild left-sided uncovertebral hypertrophy with mild left-sided neural foramina narrowing. C4-C5: Moderate pseudodisc bulge related to anterolisthesis and disc material with mild mass effect on the cord. Left-sided uncovertebral and facet hypertrophy with mild to moderate left-sided neural foramina narrowing. No cord signal abnormality. C5-C6: Mild circumferential disc osteophyte complex with possible mild mass effect on the cord. Bilateral uncovertebral and facet hypertrophy with moderate left and mild right neural foramina narrowing. No cord signal abnormality. C6-C7: Mild circumferential disc bulge with incomplete effacement of the ventral CSF space. Bilateral uncovertebral and facet hypertrophy with severe left and moderate right neural foramina narrowing. C7-T1: Mild circumferential disc bulge eccentric to the left with incomplete effacement of the ventral CSF space. Left-sided uncovertebral and facet hypertrophy with severe left-sided neural foramina narrowing. Procedure Note Conor Brunson MD - 09/14/2022 EXAM: MR CERVICAL SPINE WO CONTRAST CLINICAL INDICATION: radiculopathy. TECHNIQUE: Multiplanar, multisequence imaging of the cervical spinewithout contrast was performed. COMPARISON: None. FINDINGS: Limited study given significant patient motion on the axialimages Alignment: Straightening of the normal cervical lordosis with 1 mmanterolisthesis of C3 on C4 and C4 on C5. Vertebral Bodies: Mild anterior osteophytosis of the mid cervical spine. Marrow Signal: Expected Intervertebral Discs: Disc space narrowing at C5-C6 and C6-C7 Spinal Cord: Normal in signal intensity. Included Intracranial Structures: Normal Paraspinal Soft Tissues: Normal Individual Levels: C1-C2: Normal C2-C3: No disc bulge. Left-sided uncovertebral and facet hypertrophy withmild to moderate left-sided neural foramina narrowing. C3-C4: Mild circumferential disc bulge with incomplete effacement of theventral CSF space. Mild left-sided uncovertebral hypertrophy with mildleft-sided neural foramina narrowing. C4-C5: Moderate pseudodisc bulge related to anterolisthesis and discmaterial with mild mass effect on the cord. Left-sided uncovertebral andfacet hypertrophy with mild to moderate left-sided neural foraminanarrowing. No cord signal abnormality. C5-C6: Mild circumferential disc osteophyte complex with possible mildmass effect on the cord. Bilateral uncovertebral and facet hypertrophywith moderate left and mild right neural foramina narrowing. No cordsignal abnormality. C6-C7: Mild circumferential disc bulge with incomplete effacement of theventral CSF space. Bilateral uncovertebral and facet hypertrophy withsevere left and moderate right neural foramina narrowing. C7-T1: Mild circumferential disc bulge eccentric to the left withincomplete effacement of the ventral CSF space. Left-sided uncovertebraland facet hypertrophy with severe left-sided neural foramina narrowing. IMPRESSION: 1. Significantly limited study given patient motion on the axial images. 2. Straightening of the normal cervical lordosis with 1 mm anterolisthesisof C3 on C4 and C4 on C5. 3. Multilevel degenerative disc disease, as above, with mild mass effecton the cord at C4-C5 and C5-C6 but no cord signal abnormality. Multilevelneural foramina narrowing also seen. Earl Flynn MD IMG MR PROCEDURE S * XR Spine Survey/Scoliosis 2-3 Views (08/17/2022 3:07 PM EDT) Anatomical Region Laterality Modality Whole spine Digital Radiogra phy Narrative 08/19/2022 4:59 PM EDT Imaging: AP, lateral, scoliosis radiographs performed 08/19/22 at [facility] are reviewed. ??These show good quality images. ??Soft tissue silhouettes are within normal limits. ??Normal-appearing bowel gas pattern. ??Bone density appears within normal limits. ?? Age-indeterminate but chronic appearing compression fracture T12. ??Mild apex left degenerative scoliosis with mild cervicothoracic scoliosis. ??Multilevel spondylosis with straightening of the cervical spine. Earl Flynn MD IMG XR PROCEDURE S documented in this encounter Visit Diagnoses Diagnosis Cervical radiculopathy- Primary Brachial neuritis or radiculitis nos Neck pain Cervicalgia Low back pain, unspecified back pain laterality, unspecified chronicity, unspecified whether sciatica present Other idiopathic scoliosis, thoracolumbar region Occipital neuralgia of left side Degenerative disc disease, cervical Cervical radiculopathy Brachial neuritis or radiculitis nos documented in this encounter Additional Health Concerns Assessment Noted Time A fall risk assessment has been complete d for the patient 08/17/2022 2:12 PM EDT documented as of this encounter
--- OUTSIDE RECORDS SUMMARY | 2023-11-14 01:05 | XMS_ITS | Encounter Summary ---
Author Organization [facility] Address [address], [place], [place] [address] Phone Care Team Providers Care Lock Assembler Name Role Phone Unavailable Primary Care Provider Unavailabl e Reason for Visit * Reason Onset Date Comments admin concern 07/09/[address] ated she needs Dr. Maguire to take a look at her Rx for gls that she was prescribed when she last saw the Dr. Pt states she sent a message in the portal on the 28 of June but she hasn't heard anything back. Pls contact the pt about getting a recheck scheduled with Dr. Maguire Encounter Details Date Type Department Care Team (Late st Contact Info) Description 07/09/2022 Telephone [facility] [phone] Jerardo Maguire MD [address] [facility], [place] [address] [place] [address] admin concern (Pt called and stated she needs Dr. Maguire to take a look at her Rx for gls that she was prescribed when she last saw the Dr. Pt states she sent a message in the portal on the 28 of June but she hasn't heard anything back. Pls contact the pt about getting a recheck scheduled with Dr. Maguire) Social History Tobacco Use Types Packs/Day Years [...] encounter Miscellaneous Notes * Telephone Encounter - Jose Dewitt - 07/09/2022 2:14 PM EDT Pt called and stated she needs Dr. Maguire to take a look at her Rx for gls that she was prescribed when she last saw the Dr. Pt states she sent a message in the portal on the 28 of June but she hasn'theard anything back. Pls contact the pt about getting a recheck scheduled with Dr. Maguire documented in this encounter Plan of Treatment Upcoming Encounters Date Type Department Care Team (Late st Contact Info) Description 01/04/2024 11:20 AM EDT Procedure Visit [facility] [address] [facility] [place] Floor 9 [place] [address] Katie Jones AUD 01/06/2024 2:00 PM EDT Appointment [facility] [address] [place] [address] 01/09/2024 2:00 PM EDT Office Visit [facility] [address] [facility] [place] 19th Floor [address] [place] [address] Radha Coker MD [address] [place] [address] 01/10/2024 8:30 AM EDT [facility] [address] [place] [address] Vandana, Sydnee Ndiaye, DO [address] [facility] [address] 01/11/2024 10:00 AM EDT Office Visit [facility] - ENT & Facial Plastic Surgery [address] [place] [address] Kat Rico, PATTIE [address] [place] [address] 01/20/2024 11:45 AM EDT Clinical Support [facility] [address] [facility] [address] [place] [address] Maria Eugenia Lucero, ORA [address] [place] [address] 01/30/2024 8:40 AM EST Office Visit [facility] [address] [facility] [place] 15th Floor [address] [place] [address] Jose Monique MD 550 [facility] Office [place] 15th Floor, [address] [place] [address] 02/27/2024 12:50 PM EST Office [facility] [address] Floor 4 [address] [place] [address]96-052 Kellie Bowser, OD [address], [address] [facility] [place] [address] 06/19/2024 11:30 AM EDT Appointment [facility] [address] [place] [address] 06/19/2024 1:00 PM EDT Appointment [facility] [address] [place] [address] 08/21/2024 1:40 PM EDT Office Visit [facility] at [address] [facility] 3rd [place] [address] Satya Wright PA [address] 3rd [place] [address] 09/05/2024 10:30 AM EDT Office Visit [facility] [address] [place] [address] Tatiana Dominguez, KASH [address] [place] [address] documented as of this encounter Visit Diagnoses Not on filedocumented in this encounter Additional Health Concerns Assessment Noted Time A fall risk assessment has been complete d for the patient 07/08/2022 11:18 AM EDT documented as of this encounter
--- OUTSIDE RECORDS SUMMARY | 2023-11-14 01:05 | XMS_ITS | Encounter Summary ---
Author Organization [facility] Address [address] [place] [address], [place] [address] Phone Care Team Providers Care First Dyer Name Role Phone Unavailable Primary Care Provider Unavailabl e Reason for Referral * Imaging (Routine) - Closed Specialty Diagnoses / Procedures Referred By Farrah shook Referred To Contact Radiology Diagnoses Cervical radiculopathy Procedures MR Cervical Spine WO Earl Salmeron MD [address] [place] [address] [facility] [place] [address] Referral ID Status Reason Start Date Expiration Date Visits Re quested Visits Authorized [id number] Closed 08/17/2022 09/16/2023 1 1 Reason for Visit * Imaging (Routine) - Closed Specialty Diagnoses / Procedures Referred By Farrah shook Referred To Contact Radiology Diagnoses Cervical radiculopathy Procedures MR Cervical Spine WO Earl Salmeron MD [address] [place] [address] [facility] [place] [address] Referral ID Status Reason Start Date Expiration Date Visits Re quested Visits Authorized [id number] Closed 08/17/2022 09/16/2023 1 1 Encounter Details Date Type Department Care Team (Latest Contact Info) Description 09/07/2022 3:35 PM EDT - 09/07/2022 11:59 PM EDT Hospital Encounter [address] [address] Cervical radiculopathy Discharge Disposition: DISCHARGED TO HOME OR SELF [...] suspected to have Coronavirus/COVID-19? No / Unsure 09/07/2022 3:23 PM EDT documented as of this encounter Medications at Time of Discharge Medication Sig Dispensed Refills Start Date End Date ascorbic jacz-pajmnpuz-ixe (Emergen-C) 1,000 mg powder effervescent in packet Take by mouth once daily. 03/28/2019 ibuprofen 200 mg tablet Take by mouth if needed. PRN 03/28/2021 multivit with minerals/lutein (MULTIVITAMIN 50 PLUS ORAL) Take by mouth once daily. 03/28/2022 omega 2-zym-kee-fish oil 1,000 mg (120 mg-180 mg) capsule [...] the MRI scanner 2 tablet 07/19/2022 09/21/2022 LORazepam (Ativan) 1 mg tablet Take 1 tablet (1 mg) by mouth See administration instructions for 10 days. 1 by mouth 1 hour prior to MRI, may repeat X 1 dose 2 tablet 08/28/2022 09/21/2022 magnesium 250 mg tablet 03/28/2021 09/06/2023 melatonin 0.5 mg tablet split tablet 03/28/2019 09/06/19 24 documented as of this encounter Plan of Treatment Upcoming Encounters Date Type Department Care Team (Late st Contact Info) Description 01/04/2024 11:20 AM EDT Procedure Visit [facility] 550 [facility] Medical [facility] [place] Floor 9 [place] [address] Katie Jones AUD 01/06/2024 2:00 PM EDT Appointment [facility] [address] [place] [address] 01/09/2024 2:00 PM EDT Office Visit [facility] [address] [facility] [place] Medical Office [place] 19th Floor [address] [place] [address] Radha Coker MD 550 [place] [address] 01/10/2024 8:30 AM EDT Office Visit [facility] - Primary Care [address] [place] [address] Sydnee Ross DO [address] [facility] [place] [address] 01/11/2024 10:00 AM EDT Office Visit [facility] - ENT & Facial Plastic Surgery [address] [place] [address] Kat Rico, PATTIE [address] [place] [address] 01/20/2024 11:45 AM EDT Clinical Support [facility] [address] [facility] [address] [place] [address] Maria Eugenia Lucero, [facility] [address] [place] [address] 01/30/2024 8:40 AM EST Office Visit [facility] [address] [facility] [place] 15th Floor [address] [place] [address] Jose Monique MD 550 [facility] Office [place] 15th Floor, [address] [place] [address] 02/27/2024 12:50 PM EST Office Visit [facility] [address] [facility] Floor 4 [address] [place] [address] Kellie Bowser, OD [address] [facility] [address] 4, [address] [facility] [place] [address] 06/19/2024 11:30 AM EDT Appointment [facility] [address] [facility] 120 [place] [address] 06/19/2024 1:00 PM EDT Appointment [facility] [address] [facility] 120 [place] [address] 08/21/2024 1:40 PM EDT Office Visit [facility] [address] [facility] [address] 3rd [place] [address] Satya Wright PA [address] [facility] [address] 3rd [place] [address] 09/05/2024 10:30 AM EDT Office Visit [facility] [address] [place] [address] Tatiana Dominguez NP [address] [place] [address] documented as of this encounter Procedures Procedure Name Priority Date/Time Associated Diagnosis Comments MR CERVICAL SPINE WO CONTRAST Routine 09/07/2022 4:49 PM EDT Cervical radiculopathy documented in this encounter Results * MR [...] Earl Flynn MD IMG MR PROCEDURE S documented in this encounter Visit Diagnoses Diagnosis Cervical radiculopathy Brachial neuritis or radiculitis nos documented in this encounter Additional Health Concerns Assessment Noted Time A fall risk assessment has been complete d for the patient 08/27/2022 8:18 AM EDT documented as of this encounter
--- OUTSIDE RECORDS SUMMARY | 2023-11-14 01:05 | XMS_ITS | Encounter Summary ---
Author Organization [facility] Address [address], [place] [address] Phone Care Team Providers Care Automotive Specialty Technician Name Role Phone Unavailable Primary Care Provider Unavailabl e Reason for Visit * Reason Comments OP Infusion * Episode Based Medications (Routine) - Closed Specialty Diagnoses / Procedures Referred By Contac t Referred To Contact Diagnoses Osteoporosis, unspecified osteoporosis type, unspecified pathological fracture presence Apple Lux MD [facility] Non-Oncology Infusion [address] [facility] Medical Office [place] [address] [id number] Referral ID Status Reason Start Date Expiration Date Visits Re quested Visits Authorized [id number] Closed 05/12/2022 05/12/2023 99 99 Encounter Details Date Type Department Care Team (Latest Contact Info) Description 06/02/2022 2:18 PM EST - 06/02/2022 11:59 PM EST Hospital Encounter [facility] 550 [facility] [place] [address] Osteoporosis, unspecified osteoporosis type, unspecified pathological fracture presence (Primary Dx) Discharge Disposition: DISCHARGED TO HOME OR SELF [...] Sign Reading Time Taken Comments Blood Pressure 136/74 06/02/2022 3:33 PM EST Pulse 65 06/02/2022 3:33 PM EST Temperature 36.8 ??C (98.2 ??F) 06/02/2022 3:33 PM ES T Respiratory Rate 18 06/02/2022 3:33 PM EST Oxygen Saturation - - Inhaled Oxygen Concentration - - Weight 67.1 kg (147 lb 14.9 oz) 06/02/2022 2:30 PM EST Height 175.3 cm (5' 9) 06/02/2022 2:30 PM EST Body Mass Index 21.85 06/02/2022 2:30 PM EST documented in this encounter Medications at Time of Discharge Medication Sig Dispensed Refills Start Date End Date ascorbic afky-jjwmlnqu-ijp (Emergen-C) 1,000 mg powder effervescent in packet Take by mouth once daily. 03/28/2019 ibuprofen 200 mg tablet Take by mouth if needed. PRN 03/28/2021 multivit with minerals/lutein (MULTIVITAMIN 50 PLUS ORAL) Take by mouth once daily. 03/28/2022 omega 6-dny-smo-fish oil 1,000 mg (120 mg-180 mg) capsule [...] mouth. 07/08/2022 documented as of this encounter Progress Notes * Walter Kimberelie Laura - 06/02/2022 2:30 PM EST Patient received a Reclast 5 mg infusion today. Per patient this is her 2nd dose of Reclast. Patient tolerated procedure well without any reaction. Patient discharged home with discharge instruction. documented in this encounter Plan of Treatment Upcoming Encounters Date Type Department Care Team (Late st Contact Info) Description 01/04/2024 11:20 AM EDT Procedure Visit [facility] [address] [facility] Medical Office [place] Floor 9 [place] [address] Katie Jones AUD 01/06/2024 2:00 PM EDT Appointment [facility] [address] [place] [address] 01/09/2024 2:00 PM EDT Office Visit [facility] [address] [facility] Medical Office [place] 19th Floor [address] [place] [address] Radha Coker MD 550 [place] [address] 01/10/2024 8:30 AM EDT Office Visit [facility] - Primary Care [address] [place] [address] Sydnee Ross, DO [address] [facility] - [place] [address] 01/11/2024 10:00 AM EDT Office Visit [facility]ial Pl[facility] Surgery [address] [place] [address] Kat Rico PA [address] [place] [address] 01/20/2024 11:45 AM EDT Clinical Support [facility] [address] [place] [address] Maria Eugenia Lucero, [facility] [address] [place] [address] 01/30/2024 8:40 AM EST Office Visit [facility] [address] [facility] [place] 15th Floor [address] [place] [address] Jose Monique MD 550 [facility] Office [place] 15th Floor, [address] [place] [address] 02/27/2024 12:50 PM EST Office Visit [facility] [address] 4 [address] [place] [phone] Kellie Bowser, OD [address], [address] [facility] [place] [address] 06/19/2024 11:30 AM EDT Appointment [facility] [address] [place] [address] 06/19/2024 1:00 PM EDT Appointment [facility] [address] [place] [address] 08/21/2024 1:40 PM EDT Office Visit [facility] [address] [facility] [address] [facility] [address] 3rd [place] [address] Satya Wright PA [address] [facility] 3rd [place] [address] 09/05/2024 10:30 AM EDT Office Visit [facility] [address] [place] [address] Tatiana Dominguez NP [address] [place], [place] [id number] documented as of this encounter Visit Diagnoses Diagnosis Osteoporosis, unspecified osteoporosis type, unspecified pathological fracture presence- Primary documented in this encounter Administered Medications Inactive Administered Medications - up to 3 most recent administrations Medication Order MAR Action Action Date Dose Rate Site zoledronic acid (Reclast) IVPB 5 mg 5 mg, intravenous, at 300 mL/hr, Administer over 20 Minutes, Once, On Tue06/02/22 at 1445, For 1 dose New Bag 06/02/2022 3:08 PM EST 5 mg 300 mL/hr documented in this encounter Additional Health Concerns Assessment Noted Time A fall risk assessment has been complete d for the patient 06/01/2022 2:09 PM EST documented as of this encounter
--- OUTSIDE RECORDS SUMMARY | 2023-11-14 01:06 | XMS_ITS | Encounter Summary ---
Author Organization [facility] Address [address] [facility] , [place], [place] [address] Phone Care Team Providers Care Pharmaceutical Operator Name Role Phone Unavailable Primary Care Provider Unavailabl e Reason for Visit * Reason Onset Date Comments Colon Cancer Screening 05/17/2022 Encounter Details Date Type Department Care Team (Late st Contact Info) Description 05/17/2022 Telephone [facility] [address] Floor 1 [place] [address] Neetaerlinda Kelin Colon Cancer Screening Social History Tobacco Use Types Packs/Day Years Used Date Smoking Tobacco: Never Smokeless Tobacco: Never Alcohol Use Standard Drinks/Week Comments Yes 1 (1 standard drink = 0.6 oz pur e alcohol) 4 per week average PHQ-2 Answer Date Recorded Patient Health Questionnaire-2 Score 0 04/06/2022 Sex and Gender Information Value Date Recorded [...] suspected to have Coronavirus/COVID-19? No / Unsure 05/13/2022 3:46 PM EST documented as of this encounter Miscellaneous Notes * Telephone Encounter - Audrey Kelin - 05/17/2022 3:01 PM EST Reviewed procedure, date , time of arrival and location. Wear a mask, bring an ID. Must have a class b truck driver 18 or older to check in and stay on property. Prep instructions, clear liquid diet/ Split prep instructions explianed/NPO status. General medication instruction given. Contact # given with question or concerns documented in this encounter Plan of Treatment Upcoming Encounters Date Type Department Care Team (Late st Contact Info) Description 01/04/2024 11:20 AM EDT Procedure Visit [facility] 550 [facility] Medical Office [place] Floor 9 [place] [address] Katie Jones AUD 01/06/2024 2:00 PM EDT Appointment [facility] [address] [place], [place] [address] 01/09/2024 2:00 PM EDT Office Visit [facility] 550 [facility] Medical Office [place] 19th Floor [address] [place] [address] Radha Coker MD 550 [place] [address] 01/10/2024 8:30 AM EDT Office Visit [facility] - Primary Care [address] [place] [address] Vandana, Sydnee Ndiaye, [address] [facility] [place] [address] 01/11/2024 10:00 AM EDT Office Visit [facility] - [facility] & [facility] Surgery [address] [facility] 707 [place] [address] Kat Rico, PATTIE [address] [place] [address] 01/20/2024 11:45 AM EDT Clinical Support [facility] [address] [facility] [place] [address] Maria Eugenia Lucero LAC [address] [place] [address] 01/30/2024 8:40 AM EST Office Visit [facility] 550 [facility] [place] 15th Floor [address] [place] [address] Jose Monique MD 550 [facility] Medical Office [place] 15th Floor, [address] [place] [address] 02/27/2024 12:50 PM EST Office Visit [facility] [address] [place] [phone] Kellie Bowser, OD [address] [facility] [facility] [address] [facility] [address], [address] [facility] [address] 06/19/2024 11:30 AM EDT Appointment [place] [address] [address] 06/19/2024 1:00 PM EDT Appointment [place] [address] [place] [address] 08/21/2024 1:40 PM EDT Office Visit [facility] at [address] [place] [address] 3rd [place] [address] Satya Wright PA [address] [facility] 3rd [place] [address] 09/05/2024 10:30 AM EDT Office Visit [facility] [address] [place] [address] Tatiana Dominguez, KASH [address] [place] [address] documented as of this encounter Visit Diagnoses Not on filedocumented in this encounter Additional Health Concerns Assessment Noted Time A fall risk assessment has been complete d for the patient 04/19/2022 3:06 PM EST documented as of this encounter
--- OUTSIDE RECORDS SUMMARY | 2023-11-14 01:06 | XMS_ITS | Encounter Summary ---
Author Organization [facility] Address [address] [place] [address], [place] [address] Phone Care Team Providers Care Director Of Architecture Name Role Phone Unavailable Primary Care Provider Unavailabl e Reason for Visit * Reason Comments Altered Mental Status dizzi Dizziness Finger injutry Neck Pain Abscess Encounter Details Date Type Department Care Team (Late st Contact Info) Description 03/11/2022 4:39 PM EST - 03/12/2022 6:43 AM EST Emergency [facility] [address] [place] [address] Hieu Mcarthur MD [address] [place] [address] Cellulitis, unspecified cellulitis site (Primary Dx) Discharge Disposition: DISCHARGED TO HOME OR SELF CARE (ROUTINE DISCHARGE) Social History Tobacco Use Types Packs/Day Years Used Date Smoking Tobacco: Never Smokeless Tobacco: Never Alcohol Use Standard Drinks/Week Comments Yes 1 (1 standard drink = 0.6 oz pur e alcohol) 4 per week average PHQ-2 Answer Date Recorded Patient Health Questionnaire-2 Score 1 02/17/2022 Sex and Gender Information Value Date Recorded [...] suspected to have Coronavirus/COVID-19? No / Unsure 03/09/2022 1:34 PM EST documented as of this encounter Last Filed Vital Signs Vital Sign Reading Time Taken Comments Blood Pressure 139/75 03/11/2022 4:46 PM EST Pulse 69 03/11/2022 4:46 PM EST Temperature 36.4 ??C (97.6 ??F) 03/11/2022 4:46 PM ES T Respiratory Rate 20 03/11/2022 4:46 PM EST Oxygen Saturation 96% 03/11/2022 4:46 PM EST Inhaled Oxygen Concentration - - Weight 72.6 kg (160 lb) 03/11/2022 4:46 PM EST Height 175.3 cm (5' 9) 03/11/2022 4:46 PM EST Body Mass Index 23.63 03/11/2022 4:46 PM EST documented in this encounter Discharge Instructions * Discharge Instructions* Brianna Huber PA - 03/12/2022 3:39 AM EST As we discussed I think the most likely cause of the swelling and pain in your finger is an infection. I would call this infection cellulitis. We consulted the hand doctors and they agree with that. It is possible you have a more serious underlying infection but at this time they recommend startingsome antibiotics and then reassessing. Please not hesitate to return to the emergency department if you are concerned for any reason, specially worsening pain or swelling in the finger or redness or new wound that appears with pus or inability to move the finger or feeling like it is cold like is not getting good blood flow documented in this encounter Medications at Time of Discharge Medication Sig Dispensed Refills Start Date End Date ascorbic angc-yrgftrql-wvc (Emergen-C) 1,000 mg powder effervescent in packet Take by mouth once daily. 03/28/2019 ibuprofen 200 mg tablet Take by mouth if needed. PRN 03/28/2021 omega 2-gco-dbk-fish oil 1,000 mg (120 mg-180 mg) capsule Take by mouth once daily. 03/28/2007 polyvinyl alcohol-povidon,PF, (Refresh Classic, PF,) 1.4-0.6 % eye drops in a dropperette 03/28/2019 zoledronic acid/mannitol-water (RECLAST IV) Infuse into a venous catheter Yearly. sulfamethoxazole-trimet hoprim (Bactrim DS) 800-160 mg tablet Take 1 tablet by mouth twice daily for 14 days. 28 tablet 03/12/2022 03/26/2022 acetaminophen (Tylenol) 500 mg tablet 09/25/2021 04/06/2022 amoxicillin (Amoxil) 875 mg tablet TAKE ONE TABLET BY MOUTH TWICE A DAY FOR 7 DAYS 03/10/2022 03/17/2022 atorvastatin (Lipitor) 40 mg tablet Take 1 tablet (40 mg) by mouth once daily. 90 tablet 1 02/17/2022 10/28/2022 clotrimazole (Lotrimin) 1 % cream 11/26/2021 09/06/2023 clotrimazole (Lotrimin) 1 % vaginal cream 10/09/2021 04/06/2022 cyanocobalamin (Vitamin B-12) 500 mcg tablet Take 500 mcg by mouth once daily. 04/06/2022 doxycycline (Vibramycin) 100 mg capsule TAKE ONE CAPSULE BY MOUTH TWICE A DAY FOR 7 DAYS 03/10/2022 04/06/2022 EPINEPHrine (Epipen) 0.3 mg/0.3 mL injection syringe Inject 0.3 mL (0.3 mg) as directed if needed for anaphylaxis. Call 911 after use. 1 each 02/17/2022 04/19/2022 EPINEPHrine 0.15 mg/0.3 mL syringe 03/28/2021 04/06/2022 magnesium 250 mg tablet 03/28/202108/26 melatonin 0.5 mg tablet split tablet 03/28/2019 09/06/2023 pilocarpine (Pilocar) 1 % ophthalmic solution Administer 1 drop into affected eye(s). 12/19/2020 04/06/2022 vitamin K2 40 mcg tablet Take by mouth. 07/08/2022 zoledronic acid/mannitol-water (RECLAST IV) 06/25/2021 03/17/2022 documented as of this encounter Consult Notes * Juancho Fang II, MD - 03/12/2022 3:21 AM EST Plastic, Reconstructive & Hand Surgery Consult Note Gianna Infante : 1945 Subjective Gianna Infante is a 76 y.o. female who presents for 1 month hx of R IF swelling. Patient burned Allen IF while cooking thanksgiving dinner and since that time has experienced swelling, pain, and redness which has continued to worsen this week. She went to urgent care to be evaluated and was prescribed a course of PO Abx. After taking 1 dose, pt felt lightheaded and presented to ED for further eval uation. Denies any fevers at home or drainage/open wounds. PMHx includes HTN and osteoarthritis. Of note, pt w/ recent hx of tooth abscess that has required 2 rounds of amoxicillin. No hx of gout, RA, or tobacco use. Upon arrival to ED, AF w/ VSS. WBC 5.6. PRS consulted for evaluation of R IF swelling and further management. 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 06/18/2011-[facility] History of colon polyps 08/09/2018 Hypertension 2020 Insomnia 04/23/2013 Macular pucker, left eye 08/09/2012 Memory deficit [...] eye 06/25/2015 Osteoporosis 2012 Other hyperlipidemia 02/17/2022 Pseudophakia, both eyes Situational mixed anxiety and depressive disorder 07/27/2019 Spondylosis of lumbosacral spine without myelopathy 06/27/2008 Varicose veins 01/13/2011 Past Surgical History: Procedure Laterality Date CATARACT EXTRACTION Bilateral 2020 CE-IOL OU TOTAL KNEE ARTHROPLASTY Bilateral 2017 and 2021 (Not in a hospital admission) Family/Social History: Social History Socioeconomic History Marital status: Single Spouse name: Not on file Number of children: Not on file Years of education: Not on file Highest education level: Not on file Occupational History Not on file Tobacco Use Smoking status: Never Smokeless tobacco: Never Substance and Sexual Activity Alcohol use: Yes Alcohol/week: 1.0 standard drink Types: 1 Glasses of wine per week Comment: 4 [...] Amaris Infante Vision loss Mother Amaris Infante Heart disease Father Hieu Infante Hypertension Father Hieu Infante Vision loss Father Hieu Infante Medications: No current facility-administered medications for this encounter. Current Outpatient Medications Medication Sig Dispense Refill acetaminophen (Tylenol) 500 mg tablet ascorbic drnw-xxbngrir-zuz (Emergen-C) 1,000 mg powder effervescent in packet atorvastatin (Lipitor) 40 mg tablet Take 1 tablet (40 mg) by mouth once daily. 90 tablet 1 clotrimazole (Lotrimin) 1 % vaginal cream cyanocobalamin (Vitamin B-12) 500 mcg tablet Take 500 mcg by mouth once daily. EPINEPHrine (Epipen) 0.3 mg/0.3 mL injection syringe Inject 0.3 mL (0.3 mg) as directed if needed for anaphylaxis. Call 911 after use. 1 each 0 EPINEPHrine 0.15 mg/0.3 mL syringe ibuprofen 200 mg tablet magnesium 250 mg tablet melatonin 0.5 mg tablet split tablet pilocarpine (Pilocar) 1 % ophthalmic solution Administer 1 drop into affected eye(s). polyvinyl alcohol-povidon,PF, (Refresh Classic, PF,) 1.4-0.6 % eye drops in a dropperette vitamin K2 40 mcg tablet Take by mouth. zoledronic acid/mannitol-water (RECLAST IV) Infuse into a venous catheter. zoledronic acid/mannitol-water (RECLAST IV) Physical Exam: BP 139/75 (BP Location: Left arm, Patient Position: Sitting) Pulse 69 Temp (!) 36.4 ??C (97.6 ??F) (Oral) Resp 20 Ht 1.753 m (5' 9) Wt 72.6 kg (160 lb) SpO2 96% BMI 23.63 kg/m?? General: NAD HEENT: NCAT CV: RRR Resp: EWOB on RA Neuro: A&Ox3 RUE: R IF with fusiform swelling, but not particularly erythematous. TTP over DIPJ and PIPJ, no tenderness along flexor tendon sheath or A1 cory. Very limited DIPJ flexion 2/2 swelling, PIPJ flexion only slightly limited (40 degrees of flexion). Sensation to radial and ulnar sides of IF intact. 2+ cap refill. No obvious open wounds or drainage. Laboratory and Imaging Data: Data Review: Lab: Lab Results Component Value Date WBC 5.6 03/11/2022 HGB 14.1 03/11/2022 HCT 42.5 (H) 03/11/2022 PLT 274 03/11/2022 CHOL 154 01/01/2022 TRIG 56 01/01/2022 HDL 65 01/01/2022 ALT 38 12/31/2021 AST 34 12/31/2021 NA 138 03/11/2022 K 3.7 03/11/2022 CL 101 03/11/2022 CREATININE 0.58 (L) 03/11/2022 BUN 14 03/11/2022 CO2 28 03/11/2022 INR 0.99 03/11/2022 Imaging: XR Finger 2+ View Right: Interpreted by myself. No acute fx or obvious deformity. Evidence of osteoarthritis at DIPJ and PIPJ w/ multiple osteophytes. Impression and Recommendations: Gianna Infante is a 76 y.o. female w/ 1 month hx of R IF swelling s/p cooking burn. Recommendations: - No acute surgical intervention indicated - PO Bactrim x7days - Follow up w/ Dr. Fang next week - Pain management and discharge per ED MD Hayes PRS ---- Faculty Addendum: Diagnosis: Right index finger pain and swelling ER Presentation Date: 03/11/2022 Plan: -Light weight bearing (5# or less, okay for ADLs) RUE -OT: Edema management -RTC 2 weeks, no XR unless clinical change . Patient to call to schedule appointment. Juancho Fang MD Division of Hand and Upper Extremity Department of Orthopaedics [facility] [employer] documented in this encounter ED Notes * Sally Spears - 03/12/2022 6:43 AM EST Discharged @ 0643 * Hieu Mcarthur MD - 03/11/2022 3:42 PM EST EMERGENCY MEDICINE ATTENDING PHYSICIAN NOTE Patient Information Patient Name: Gianna Infante : 1945 Date of ED Visit: 03/12/22 Mode of Arrival: private car. Patient information was obtained from patient. History/Exam limitations: none. Given severe ongoing shortage of patient rooms and ongoing shortage of staff to monitor for patients in private rooms, the patient was seen and cared for in a combination of the waiting room, the hallway, and other shared public spaces. The patient was offered the option of waiting for a private room to become available or begin with their history and brief physical exam in the space that is currently available. The patient elected to proceed with history in our available space and was informed that they could change their mind atanytime. Patient was relocated to a separate area temporarily to ensure their confidentiality. Chief Complaint Chief Complaint Patient presents with Altered Mental Status dizzi Dizziness Finger injutry Neck Pain Abscess History of Present Illness Gianna Infante is a 76 y.o. female with a past medical history of hypertension GERD osteoarthritis basal cell carcinoma presenting for concern of right finger swelling. Partially disagree with the listed chief complaint. She has never had altered mental status. She does not have neck pain. He is actively being treated for a left tooth gingival infection but is not the reason for visit today. She came today for her finger. Finger is red hot and swollen worsen for about a week. Some pain with movement. Tender to touch. Gradually getting worse and so she wanted to get seen. Try to make a appointment with orthopedics and was not able to be seen for more than a week her PCP recommended she come into the emergency department. Burned her finger while cooking Thanksgiving dinner. The pain initially started to go down and thenstarted having swelling in the whole finger gradually getting worse for the last several weeks and much worse for the last week endorses trace paresthesia at the very tip of her finger. Otherwise denies numbness denies weakness. No other history of trauma to the finger. Nuys fever chills nausea She was prescribed amoxicillin and doxycycline took her first dose yesterday. She felt slightly weird after taking the medicine. She describes it as feeling out of it and a little bit woozy that self resolved afterwards. Denies true confusion dizziness sensation of the room spinning. Review of Systems Review of Systems Constitutional: Negative for chills and fever. HENT: Negative for ear pain and sore throat. Eyes: Negative for pain and visual disturbance. Respiratory: Negative for cough and shortness of breath. Cardiovascular: Negative for chest pain and palpitations. Gastrointestinal: Negative for abdominal pain and vomiting. Genitourinary: Negative for dysuria and hematuria. Musculoskeletal: Negative for arthralgias and back pain. Right index finger swelling and pain Skin: Negative for color change and rash. Neurological: Negative for seizures and syncope. All other systems reviewed and are negative. All other systems were reviewed and negative except as noted in the HPI. Past Medical / Surgical History Past Medical History Diagnosis Date Anxiety 1951 Arthritis of both hands 06/10/2015 Right > left Compression fracture of body of thoracic vertebra (CMS/HCC) 02/17/2022 GERD (gastroesophageal reflux disease) Heart murmur 1989 History of basal cell carcinoma (BCC) 06/18/2011 B/w right eye and nose. 06/18/2011-[facility] History of colon polyps 08/09/2018 Hypertension 2020 Insomnia 04/23/2013 Macular pucker, left eye 08/09/2012 Memory deficit [...] eye 06/25/2015 Osteoporosis 2012 Other hyperlipidemia 02/17/2022 Pseudophakia, both eyes Situational mixed anxiety and depressive disorder 07/27/2019 Spondylosis of lumbosacral spine without myelopathy 06/27/2008 Varicose veins 01/13/2011 Patient Active Problem List Diagnosis Date Noted Pseudophakia, both eyes 03/01/2022 Neuromuscular disorder (CMS/HCC) 03/01/2022 GERD (gastroesophageal reflux disease) 03/01/2022 Compression fracture of body of thoracic vertebra (CMS/HCC) 02/17/2022 Other hyperlipidemia 02/17/2022 Hypertension 2020 Situational mixed anxiety and depressive disorder 07/27/2019 History of colon polyps 08/09/2018 Age-related cataract of both eyes 06/25/2015 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 No current facility-administered medications for this encounter. Current Outpatient Medications: acetaminophen (Tylenol) 500 mg tablet, , Disp: , Rfl: ascorbic hbap-jafbeazl-ned (Emergen-C) 1,000 mg powder effervescent in packet, , Disp: , Rfl: atorvastatin (Lipitor) 40 mg tablet, Take 1 tablet (40 mg) by mouth once daily., Disp: 90 tablet, Rfl: 1 clotrimazole (Lotrimin) 1 % vaginal cream, , Disp: , Rfl: cyanocobalamin (Vitamin B-12) 500 mcg tablet, Take 500 mcg by mouth once daily., Disp: , Rfl: EPINEPHrine (Epipen) 0.3 mg/0.3 mL injection syringe, Inject 0.3 mL (0.3 mg) as directed if needed for anaphylaxis. Call 911 after use., Disp: 1 each, Rfl: 0 EPINEPHrine 0.15 mg/0.3 mL syringe, , Disp: , Rfl: ibuprofen 200 mg tablet, , Disp: , Rfl: magnesium 250 mg tablet, , Disp: , Rfl: melatonin 0.5 mg tablet split tablet, , Disp: , Rfl: pilocarpine (Pilocar) 1 % ophthalmic solution, Administer 1 drop into affected eye(s)., Disp: , Rfl: polyvinyl alcohol-povidon,PF, (Refresh Classic, PF,) 1.4-0.6 % eye drops in a dropperette, , Disp: , Rfl: vitamin K2 40 mcg tablet, Take by mouth., Disp: , Rfl: zoledronic acid/mannitol-water (RECLAST IV), Infuse into a venous catheter., Disp: , Rfl: zoledronic acid/mannitol-water (RECLAST IV), , Disp: , Rfl: Allergies Allergen Reactions Bee Venom Protein (Honey Bee) Anaphylaxis Fluoxetine Other reaction(s): Other (See Comments), Other (See Comments) paranoid Paranoid Paranoid Estrogens, Conjugated Hymenoptera Allergenic Extract Serotonin Hallucinations Wasp Venom Family / Social History Family History Problem Relation Name Age of Onset Alcohol abuse Mother Amaris Infante Arthritis Mother Amaris Infante Depression Mother Amaris Infante Vision loss Mother Amaris Infante Heart disease Father Hieu Infante Hypertension Father Hieu Infante Vision loss Father Hieu Infante Social History Socioeconomic History Marital status: Single Tobacco Use Smoking status: Never Smokeless tobacco: Never Substance and Sexual Activity Alcohol use: Yes Alcohol/week: 1.0 standard drink Types: 1 Glasses of wine per week Comment: 4 per week average Drug use: Never Sexual activity: Not Currently Partners: Male control/protection: Post-menopausal Physical Exam Patient Vitals for the past 24 hrs: BP Temp Temp src Pulse Resp SpO2 Height Weight 03/11/22 1646 139/75 (!) 36.4 ??C (97.6 ??F) Oral 69 20 96 % 1.753 m (5' 9) 72.6 kg (160 lb) 03/11/22 1542 -- -- -- 82 -- 100 % -- -- Physical Exam Vitals and nursing note reviewed. Constitutional: General: She is not in acute distress. Appearance: She is well-developed. HENT: Head: Normocephalic and atraumatic. Comments: Left upper first bicuspid with tenderness and small amount of erythema. No gingival fluctuance. No soft tissue swelling of the neck or face Eyes: Conjunctiva/sclera: Conjunctivae normal. Cardiovascular: Rate and Rhythm: Normal rate and regular rhythm. Heart sounds: No murmur heard. Pulmonary: Effort: Pulmonary effort is normal. No respiratory distress. Breath sounds: Normal breath sounds. Abdominal: Palpations: Abdomen is soft. Tenderness: There is no abdominal tenderness. Musculoskeletal: Cervical back: Neck supple. Comments: Right index finger warm to touch slightly erythematous sausage digit. Normal sensation normal motor in all digits. No obvious fluctuance. Minimally tender. Not held bent in flexion. No tenderness along tendon sheath. No pain with extension. No wound Skin: General: Skin is warm and dry. Neurological: Mental Status: She is alert. Laboratory Data Labs Reviewed BASIC METABOLIC PANEL - Abnormal Result Value Sodium 138 Potassium 3.7 Chloride 101 Carbon Dioxide Level 28 Calcium Level Total 9.5 Blood Urea Nitrogen 14 Creatinine 0.58 (*) Glucose 88 Anion Gap 9 Calculated Osmolality 277 U:C 24 (*) Estimated GFR 90 LACTIC ACID LEVEL - Abnormal Lactate 0.3 (*) COMPLETE BLOOD COUNT - Abnormal White Blood Cell 5.6 Red Blood Cell 4.52 Hemoglobin 14.1 Hematocrit 42.5 (*) Mean Corpuscular Volume 94.0 Mean Corpuscular Hemoglobin 31.2 Mean Corpuscular Hemoglobin Concentration 33.2 Platelet 274 Mean Platelet Volume 9.2 (*) Red Cell Distribution Width Coefficient of John. 13.1 Red Cell Distribution Width Standard Deviation 45.0 (*) Auto Nucleated Red Cell Count 0 Absolute NRBC 0.0 PROTHROMBIN TIME - Normal Prothrombin Time 11.3 International Normalization Ratio 0.99 BLOOD CULTURE BLOOD CULTURE CBC AND DIFFERENTIAL Narrative: The following orders were created for panel order CBC and differential. Procedure Abnormality Status --------- ------ Complete Blood Count[[id number]] Abnormal Final result Differential, Auto[[id number]] Final result Please view results for these tests on the individual orders. DIFFERENTIAL, AUTO Neutrophil, Auto 62 Lymphocyte, Auto 27 Monocyte, Auto 8 Eosinophil, Auto 2 Basophil, Auto 1 Neutrophil, Auto Absolute Count 3.50 Lymphocyte, Auto Absolute Count 1.51 Monocyte, Auto Absolute Count 0.44 Eosinophil, Auto Absolute Count 0.09 Basophil, Auto Absolute Count 0.04 Immature Granulocyte, Auto Absolute Count 0.02 Immature Granulocyte, Auto 0 I personally reviewed and interpreted the ED laboratory data. Imaging XR Fingers 2+ Views Right (Results Pending) XR Fingers 2+ Views Right Final Result Impression: 1. Soft tissue swelling of the second digit. No acute osseous abnormality. No radiopaque foreign body. 2. Multifocal degenerative changes as described above. The images were reviewed and interpreted by Vania Boothe MD. EKG EKG Report Time: 03/12/22 EKG on March 11, 2022 at 2319 shows an AV dual paced rhythm with regular pacer spikes followed by QRS complexes. Wide QRS. Appears left bundle morphology consistent with a dual paced. No ST elevations. No obvious ST depressions. Believe there is EKG artifact in the lateral leads. T wave inversion in the lateral leads. Overall consistent with prior no signs of acute ischemia. Procedures na Critical care na Assessment & Medical Decision Making Chief Complaint: Chief Complaint Patient presents with Altered Mental Status dizzi Dizziness Finger injutry Neck Pain Abscess Clinical Course and Thought Process: ED Course as of 03/12/222204 Hieu Mcarthur's Documentation TueMar 12, 2022 0335 Consulted hand. Spoke with Dr. Estrella who staffed patient with the attending they recommend Bactrim for 1 week and follow-up with him in clinic. Patient agreement with plan Others' Documentation TueMar 12, 2022 1205 Patient called the CDU, stating that her Bactrim prescription was not sent to the pharmacy. Upon chart review, Dr. Mcarthur did intend to send this prescription for MRSA coverage for suspected cellulitis of the hand. Will send this prescription now [AA] ED Course User Index [AA] PATTIE Renee Diagnoses as of 03/12/222204 Cellulitis, unspecified cellulitis site Initial medical decision making 76-year-old female with above past medical history. Overall historyconsistent with cellulitis. Exam not consistent with flexor tenosynovitis. No fluctuance to suggestabscess. Start antibiotics if like she had a reaction to doxycycline would be atypical. However given that she has a concomitant dental infection will worry about seeding staph infection. Given how well it appears on exam other than the swelling and redness no need for tapping the joint or consulting surgery for emergent washout. And she is also not trialed antibiotics yet. Will prescribe other MRSA coverage with Bactrim and plan for discharge. Spoke with hand political consultant who was present in the emergency department and they will also take a look at the hand and call us back for likely expedited follow-up as outpatient versus other recommendations they see fit Counseled patient on likely diagnosis, management, what to look out for in the future, and next steps moving forward. Patient voiced understanding and stated they had no further questions. Clinical Scoring Tool Results: No data recorded Final Diagnoses R index finger cellulitis Condition Stable Disposition DC ?Provider: Hieu Mcarthur MD, [facility] Attending Physician 03/12/2022 Hieu Mcarthur MD 03/12/222209 * Rebecca Thao - 03/11/2022 3:42 PM EST Treated at urgent care for infected finger and upper left molar abscess. Given amoxicillin and doxycycline. Here with confusion and dizziness after taking meds. Her PCP sent her here for possible sepsis documented in this encounter Plan of Treatment Upcoming Encounters Date Type Department Care Team (Late st Contact Info) Description 01/04/2024 11:20 AM EDT Procedure Visit Phoebe [facility] 550 [facility] Medical Office [place] Floor 9 [place] [address] Katie Jones, LISA 01/06/2024 2:00 PM EDT Appointment [facility] [address] [place] [address] 01/09/2024 2:00 PM EDT Office Visit [facility] 550 [facility] Medical Office [address] 19th Floor [address] [place] [address] Radha Coker MD 550 [place] [address] 01/10/2024 8:30 AM EDT Office Visit [facility] - Primary Care [address] [place] [address] Sydnee Ross DO [address] [facility] [place] [address] 01/11/2024 10:00 AM EDT Office Visit [facility] - ENT & Facial Plastic Surgery [address] [facility] [address] [place] [address] Kat Rico, PA [address] [place] [address] 01/20/2024 11:45 AM EDT Clinical Support [facility] at [facility] [address] [place] [address] Maria Eugenia Lucero LAC [address] [place] [address] 01/30/2024 8:40 AM EST Office Visit [facility] [address] [facility] [address] 15th [address] [place] [address] Jose Monique MD [facility] [address] 15[address] Floor, [address] [place] [address] 02/27/2024 12:50 PM EST Office Visit [facility] [address] 4 [address] [place] [address] Kellie Bowser, OD [address], [address] [facility] [place] [address] 06/19/2024 11:30 AM EDT Appointment [place] [address] [address] 06/19/2024 1:00 PM EDT Appointment [place] [address] [address] 08/21/2024 1:40 PM EDT Office Visit [facility] [address] 3rd [place] [address] Satya Wright PA [address] [facility] 3rd [place] [address] 09/05/2024 10:30 AM EDT Office Visit [facility] [address] [place] [address] Tatiana Dominguez, KASH [address] [place], [place] [id number] Scheduled Orders Name Type Priority Associated Diagnoses Orde r Schedule Blood culture, peripheral #2 Microbiology STAT STAT (Lab) for 1 Occurrences starting 03/11/2022 until 03/11/2022 documented as of this encounter Procedures Procedure Name Priority Date/Time Associated Diagnosis Comments XR FINGERS 2+ VIEWS RIGHT STAT 03/12/2022 2:42 AM EST COMPLETE BLOOD COUNT STAT 03/11/2022 5:57 PM EST PROTHROMBIN TIME STAT 03/11/2022 5:57 PM EST DIFFERENTIAL, AUTO STAT 03/11/2022 5: 57 PM EST BLOOD CULTURE STAT 03/11/2022 5:57 PM EST COMPLETE BLOOD COUNT STAT 03/11/2022 5:57 PM EST LACTIC ACID LEVEL STAT 03/11/2022 5:5 7 PM EST BASIC METABOLIC PANEL STAT 03/11/2022 5:57 PM EST documented in this encounter Results * XR Fingers 2+ Views Right (03/12/2022 2:42 AM EST) Anatomical Region Laterality Modality Hand Right Digital Radiogra phy 03/12/2022 3:06 AM EST Impressions 03/12/2022 4:48 AM EST Impression: 1. ??Soft tissue swelling of the second digit. No acute osseous abnormality. No radiopaque foreign body. 2. ??Multifocal degenerative changes as described above. The images were reviewed and interpreted by Vania Boothe MD. Narrative 03/12/2022 4:48 AM EST EXAM: XR FINGERS 2+ VIEWS RIGHT CLINICAL INDICATION: R finger swelling. TECHNIQUE: XR FINGERS 2+ VIEWS RIGHT ESRC.8.0 Comparison: None. Findings: Bones: No acute displaced fractures. Nonspecific Soft tissue calcifications dorsal to the distal proximal phalanx. Joints: Degenerative changes of the second PIP and DIP joints, third MCP joint, first interphalangeal and carpometacarpal joint. No dislocations. Soft tissues: soft tissue swelling of the second finger. No radiopaque foreign body. Procedure Note Vania Boothe MD - 03/12/2022 EXAM: XR FINGERS 2+ VIEWS RIGHT CLINICAL INDICATION: R finger swelling. TECHNIQUE: XR FINGERS 2+ VIEWS RIGHT ESRC.8.0 Comparison: None. Findings: Bones: No acute displaced fractures. Nonspecific Soft tissuecalcifications dorsal to the distal proximal phalanx. Joints: Degenerative changes of the second PIP and DIP joints, third MCPjoint, first interphalangeal and carpometacarpal joint. No dislocations. Soft tissues: soft tissue swelling of the second finger. No radiopaqueforeign body. IMPRESSION: Impression: 1. Soft tissue swelling of the second digit. No acute osseousabnormality. No radiopaque foreign body. 2. Multifocal degenerative changes as described above. The images were reviewed and interpreted by Vania Boothe MD. Hieu Mcarthur MD IMG XR PROCEDURES * Differential, Auto (03/11/2022 5:57 PM EST) Neutrophil, Auto 62 % LAB HEMATOLOGY METHOD 03/11/2022 6:35 PM EST [facility] Lymphocyte, Auto 27 % LAB HEMATOLOGY METHOD 03/11/2022 6:35 PM EST [facility] Monocyte, Auto 8 % LAB HEMATOLOGY METHOD 03/11/2022 6:35 PM EST [facility] Eosinophil, Auto 2 % LAB HEMATOLOGY METHOD 03/11/2022 6:35 PM EST [facility] Basophil, Auto 1 % LAB HEMATOLOGY METHOD 03/11/2022 6:35 PM EST [facility] Neutrophil, Auto Absolute Count 3.50 0.91 - 5.53 10E3/mcL LAB HEMATOLOGY METHOD 03/11/2022 6:35 PM EST [facility] Lymphocyte, Auto Absolute Count 1.51 0.65 - 3.05 10E3/mcL LAB HEMATOLOGY METHOD 03/11/2022 6:35 PM EST [facility] Monocyte, Auto Absolute Count 0.44 0.16 - 0.72 10E3/mcL LAB HEMATOLOGY METHOD 03/11/2022 6:35 PM EST [facility] Eosinophil, Auto Absolute Count 0.09 <=0.36 10E3/mcL LAB HEMATOLOGY METHOD 03/11/2022 6:35 PM EST [facility] Basophil, Auto Absolute Count 0.04 <=0.07 10E3/mcL LAB HEMATOLOGY METHOD 03/11/2022 6:35 PM EST [facility] Immature Granulocyte, Auto Absolute Count 0.02 0.00 - 0.09 10E3/mcL LAB HEMATOLOGY METHOD 03/11/2022 6:35 PM EST [facility] Immature Granulocyte, Auto 0 % LAB HEMATOLOGY METHOD 03/11/2022 6:35 PM EST [facility] Blood Venous blood specimen / Unknown Venipuncture / Unknown 03/11/2022 5:57 PM EST 03/11/2022 6:09 PM EST Hilario [place] MD LAB BLOOD ORDERABLES [facility] [address] [place] [address] * (ABNORMAL) Complete Blood Count (03/11/2022 5:57 PM EST) White Blood Cell 5.6 4.0 - 10.0 10E3/mcL LAB HEMATOLOGY METHOD 03/11/2022 6:35 PM EST [facility] Red Blood Cell 4.52 3.93 - 5.22 10E6/mcL LAB HEMATOLOGY METHOD 03/11/2022 6:35 PM EST [facility] Hemoglobin 14.1 11.4 - 14.4 gm/dL LAB HEMATOLOGY METHOD 03/11/2022 6:35 PM EST [facility] Hematocrit 42.5(H) 33.3 - 41.4 % LAB HEMATOLOGY METHOD 03/11/2022 6:35 PM EST [facility] Mean Corpuscular Volume 94.0 79.4 - 94.8 fL LAB HEMATOLOGY METHOD 03/11/2022 6:35 PM EST [facility] Mean Corpuscular Hemoglobin 31.2 25.6 - 32.2 pg LAB HEMATOLOGY METHOD 03/11/2022 6:35 PM EST [facility] Mean Corpuscular Hemoglobin Concentration 33.2 30.0 - 36.0 gm/dL LAB HEMATOLOGY METHOD 03/11/2022 6:35 PM EST [facility] Platelet 274 150 - 400 10E3/mcL LAB HEMATOLOGY METHOD 03/11/2022 6:35 PM EST [facility] Mean Platelet Volume 9.2(L) 9.4 - 12.3 fL LAB HEMATOLOGY METHOD 03/11/2022 6:35 PM EST [facility] Red Cell Distribution Width Coefficient of John. 13.1 11.7 - 14.4 % LAB HEMATOLOGY METHOD 03/11/2022 6:35 PM EST [facility] Red Cell Distribution Width Standard Deviation 45.0(H) 35.1 - 43.9 fL LAB HEMATOLOGY METHOD 03/11/2022 6:35 PM EST [facility] Auto Nucleated Red Cell Count 0 % LAB HEMATOLOGY METHOD 03/11/2022 6:35 PM EST [facility] Absolute NRBC 0.0 0.0 - 0.0 10E3/mcL LAB HEMATOLOGY METHOD 03/11/2022 6:35 PM EST [facility] Blood Venous blood specimen / Unknown Venipuncture / Unknown 03/11/2022 5:57 PM EST 03/11/2022 6:09 PM EST Hilario [place] MD LAB BLOOD ORDERABLES [facility] [address] [place] [address] * (ABNORMAL) Lactic acid, plasma (03/11/2022 5:57 PM EST) Lactate 0.3(L) 0.5 - 2.2 mmol/L LAB CHEMISTRY METHOD 03/11/2022 6:49 PM EST [facility] Comment:HEMOLYSIS PRESENT. H EMOLYSIS AFFECTS ALC, ALB, AST, CK, DBIL, TBIL, GGT, K, IRON, LACTIC ACID, LD, MG, PHOS, TP, TRIG, AND URIC ACID Blood Venous blood specimen / Unknown Venipuncture / Unknown 03/11/2022 5:57 PM EST 03/11/2022 6:09 PM EST Hilario [place] MD LAB BLOOD ORDERABLES Performing Organization Address City/[facility]/ZIP Co de Phone Number [facility] [address] [place] [address] * Blood culture, peripheral #1 (03/11/2022 5:57 PM EST) Blood Culture No growth at 5 days DAVONTE INTERP 03/16/2022 7:00 PM EST [facility] Blood Venous blood specimen / Unknown Venipuncture / Unknown 03/11/2022 5:57 PM EST 03/11/2022 6:12 PM EST Hilario [place] MD LAB MICROBIOLOGY - G ENERAL ORDERABLES Performing Organization Address City/[facility]/ZIP Co de Phone Number [facility] [address] [place] [address] * PT/INR (03/11/2022 5:57 PM EST) Prothrombin Time 11.3 9.8 - 12.9 second(s) LAB COAGULATION METHOD 03/11/2022 6:41 PM EST [facility] Comment:An abnormal hematocr it may affect coagulation assay results. International Normalization Ratio 0.99 LAB COAGULATION METHOD 03/11/2022 6:41 PM EST [facility] Comment: Therapeutic ranges for the INR vary with clinical state. For prevention of embolism, prophylaxis of venous embolism, or treatment of deep vein thromboses: INR=2.0-3.0 For mechanical heart valve or recurrent systemic embolism: INR=2.5-3.5 Patients not on oral anticoagulants should have an INR reference interval of 0.9-1.1 Blood Venous blood specimen / Unknown Venipuncture / Unknown 03/11/2022 5:57 PM EST 03/11/2022 6:09 PM EST Hilario [place] MD LAB BLOOD ORDERABLES [facility] [address] [place] [address] * (ABNORMAL) Basic metabolic panel (03/11/2022 5:57 PM EST) Sodium 138 136 - 145 mmol/L LAB CHEMISTRY METHOD 03/11/2022 6:55 PM EST [facility] Potassium 3.7 3.5 - 5.1 mmol/L LAB CHEMISTRY METHOD 03/11/2022 6:55 PM EST [facility] Chloride 101 98 - 107 mmol/L LAB CHEMISTRY METHOD 03/11/2022 6:55 PM EST [facility] Carbon Dioxide Level 28 23 - 29 mmol/L LAB CHEMISTRY METHOD 03/11/2022 6:55 PM EST [facility] Calcium Level Total 9.5 8.6 - 10.3 mg/dL LAB CHEMISTRY METHOD 03/11/2022 6:55 PM EST [facility] Blood Urea Nitrogen 14 7 - 25 mg/dL LAB CHEMISTRY METHOD 03/11/2022 6:55 PM EST [facility] Creatinine 0.58(L) 0.60 - 1.20 mg/dL LAB CHEMISTRY METHOD 03/11/2022 6:55 PM EST [facility] Glucose 88 70 - 105 mg/dL LAB CHEMISTRY METHOD 03/11/2022 6:55 PM EST [facility] Comment: Random Glucose* Diabetes is diagnosed at blood glucose of greater than or equal to 200 mg/dL Fasting Glucose* Normal: less than 100 mg/dL Prediabetes: 100 mg/dl to 125 mg/dL Diabetes: 126 mg/dL or higher *ADA guidelines Anion Gap 9 2 - 11 mmol/L LAB CHEMISTRY METHOD 03/11/2022 6:55 PM EST [facility] Calculated Osmolality 277 275 - 295 mOsm/kg LAB CHEMISTRY METHOD 03/11/2022 6:55 PM EST [facility] U:C 24(H) 7 - 21 LAB CHEMISTRY METHOD 03/11/2022 6:55 PM EST [facility] Estimated GFR 90 >=60 mL/min/1. 73m2 LAB CHEMISTRY METHOD 03/11/2022 6:55 PM EST [facility] Comment: The eGFR is [...] 1. Based on review of evidence, the [facility] Clinical Practice [place] made the decision to stop reporting eGFR by race effective 09/03/2020. Blood Venous blood specimen / Unknown Venipuncture / Unknown 03/11/2022 5:57 PM EST 03/11/2022 6:09 PM EST Hilario [place] MD LAB BLOOD ORDERABLES [facility] [address] [place] [address] documented in this encounter Visit Diagnoses Diagnosis Cellulitis, unspecified cellulitis site- Primary documented in this encounter Administered Medications Inactive Administered Medications - up to 3 most recent administrations Medication Order MAR Action Action Date Dose Rate Site sulfamethoxazole-trimethoprim (Bactrim) 400-80 mg per tablet 160 mg 160 mg, oral, Once, On Tue03/12/22 at 0350, For 1 dose, Suspected Indication (Select all that apply): Cellulitis, Skin and Soft Tissue Given 03/12/2022 6:31 AM EST 160 mg documented in this encounter Active and Recently Administered Medications Times are shown in EST. Scheduled Medication Order 03/10/2022 03/11/2022 03/12/2022 sulfamethoxazole-trimethoprim (Bactrim) 400-80 mg per tablet 160 mg (COMPLETED) 160 mg, oral, Once, On Tue03/12/22 at 0350, For 1 dose, Suspected Indication (Select all that apply): Cellulitis, Skin and Soft Tissue 0631 (Given - Provid er: Sally Spears) documented in this encounter Additional Health Concerns Assessment Noted Time A fall risk assessment has been complete d for the patient 02/17/2022 8:58 AM EST documented as of this encounter
--- OUTSIDE RECORDS SUMMARY | 2023-11-14 01:06 | XMS_ITS | Encounter Summary ---
Author Organization [facility] Address [address], [address], [place] [address] Phone Care Team Providers Care Ceo Na Name Role Phone Unavailable Primary Care Provider Unavailabl e Reason for Visit * Reason Onset Date Comments Request For Order(s) 04/02/2022 Encounter Details Date Type Department Care Team (Late st Contact Info) Description 04/02/2022 Telephone [facility] [phone] Vandana, Sydnee Ndiaye, DO [address] [facility] 110 [facility] - Primary Care [place], [place] [id number] Request For Order(s) Social History Tobacco Use Types Packs/Day Years [...] suspected to have Coronavirus/COVID-19? No / Unsure 04/19/2022 2:47 PM EST documented as of this encounter Miscellaneous Notes * Telephone Encounter - Masha Ag - 04/02/2022 9:05 AM EST CLINICAL CONCERN Concern / Question: [facility] is requesting updated order for physical therapy for appt that is at 10 AM with the patient. Please fax over the order kevin. Patient is coming in and cannot be treated without the order. Fax #: [phone] documented in this encounter Plan of Treatment Upcoming Encounters Date Type Department Care Team (Late st Contact Info) Description 01/04/2024 11:20 AM EDT Procedure Visit [facility] 550 [facility] Medical Office [place] Floor 9 [place] [address] Katie Jones AUD 01/06/2024 2:00 PM EDT Appointment [facility] [address] [place], [place] [address] 01/09/2024 2:00 PM EDT Office Visit [facility] 550 [facility] Medical Office [address] 19th Floor [address] [place] [address] Radha Coker MD [address] [place] [address] 01/10/2024 8:30 AM EDT Office Visit [facility] - Primary Care [address] [place] [address] Vandana, Sydnee Ndiaye, [address] [facility] [place] [address] 01/11/2024 10:00 AM EDT Office Visit [facility] - ENT & Facial Plastic Surgery [address] [facility] [address] [place] [address] Kat Rico, PA [address] [place] [address] 01/20/2024 11:45 AM EDT Clinical Support [facility] [address] [facility] [address] [place] [address] Maria Eugenia Lucero LAC [address] [place] [address] 01/30/2024 8:40 AM EST Office Visit [facility] [address] [facility] [address] 15th Floor [address] [place] [address] Jose Monique MD 550 [facility] Office [address] 15th Floor, [address] [place] [address] 02/27/2024 12:50 PM EST Office Visit [facility] [address] [facility] Floor 4 [address] [place] [phone] Kellie Bowser, OD [address], [address] [facility] [place] [address] 06/19/2024 11:30 AM EDT Appointment [place] [address] [address] 06/19/2024 1:00 PM EDT Appointment [place] [address] [address] 08/21/2024 1:40 PM EDT Office Visit [facility] [address] 3rd [place] [address] Satya Wright PA [address] [facility] [address] 3rd [place] [address] 09/05/2024 10:30 AM EDT Office Visit [facility] [address] [place], [place] [id number] Tatiana Dominguez, PHYSICIAN CODER [address] [place] [address] documented as of this encounter Visit Diagnoses Not on filedocumented in this encounter Additional Health Concerns Assessment Noted Time A fall risk assessment has been complete d for the patient 03/26/2022 10:04 AM EST documented as of this encounter
--- OUTSIDE RECORDS SUMMARY | 2023-11-14 01:06 | XMS_ITS | Encounter Summary ---
Author Organization [facility] Address [address] [place] [address], [place] [id number] Phone Care Team Providers Care Pearl Glue Operator Name Role Phone Unavailable Primary Care Provider Unavailabl e Reason for Visit * Reason Onset Date Comments Metobolic Panel 05/06/2022 Encounter Details Date Type Department Care Team (Late st Contact Info) Description 05/06/2022 Telephone [facility] [phone] Apple Lux MD Metobolic Panel Social History Tobacco Use Types Packs/Day Years [...] suspected to have Coronavirus/COVID-19? No / Unsure 05/11/2022 11:10 AM EST documented as of this encounter Miscellaneous Notes * Telephone Encounter - Shama Miller - 05/11/2022 1:53 PM EST Noted CMP order status as Active-In process. No further action needed at this time. --MELINA KirkpatrickN, RN, AMB-BC * Telephone Encounter - Eduarda Goetz - 05/06/2022 9:36 AM EST Appt Request Reason:Patient requesting to be scheduled for metabolic panel. Please advise. Callback: [phone] documented in this encounter Plan of Treatment Upcoming Encounters Date Type Department Care Team (Late st Contact Info) Description 01/04/2024 11:20 AM EDT Procedure Visit [facility] [address] [facility] Medical Office [place] Floor 9 [place] [address] Katie Jones AUD 01/06/2024 2:00 PM EDT Appointment [facility] [address] [place], [place] [address] 01/09/2024 2:00 PM EDT Office Visit [facility] [address] [facility] Medical Office [place] 19th Floor [address] [place] [address] Radha Coker MD 550 [place] [address] 01/10/2024 8:30 AM EDT Office Visit [facility] - Primary Care [address] [place] [address] Sydnee Ross DO [address] [facility] [place] [address] 01/11/2024 10:00 AM EDT Office Visit [facility] - ENT & Facial Plastic Surgery [address] [place] [address] Kat Rico, PA [address] [place] [phone] 01/20/2024 11:45 AM EDT Clinical Support [facility] [address] [place] [address] Maria Eugenia Lucero LAC [address] [place] [address] 01/30/2024 8:40 AM EST Office Visit [facility] [address] [place] Medical Office [place] 15th Floor [address] [place] [address] Jose Monique MD [address] [facility] [place] 15th Floor, [address] [place] [address] 02/27/2024 12:50 PM EST Office Visit [facility] [address] 4 [address] [place] [phone] [phone] Kellie Bowser, OD [address], [address] [facility] [place] [address] 06/19/2024 11:30 AM EDT Appointment [place] [address] [address] 06/19/2024 1:00 PM EDT Appointment [place] [address] [address] 08/21/2024 1:40 PM EDT Office Visit [facility] [address] 3rd [place] [address] Satya Wright PA [address] [facility] [address] 3rd [place] [address] 09/05/2024 10:30 AM EDT Office Visit [facility] [address] [place] [address] Tatiana Dominguez, KASH [address] [place] [address] documented as of this encounter Visit Diagnoses Not on filedocumented in this encounter Additional Health Concerns Assessment Noted Time A fall risk assessment has been complete d for the patient 04/19/2022 3:06 PM EST documented as of this encounter
--- OUTSIDE RECORDS SUMMARY | 2023-11-14 01:06 | XMS_ITS | Encounter Summary ---
Author Organization [facility] Address [address], [address], [place] [address] Phone Care Team Providers Care Mail Superintendent Name Role Phone Unavailable Primary Care Provider Unavailabl e Encounter Details Date Type Department Care Team (Late Contact Info) Description 03/16/2022 Telephone PGP PRIMARY [facility] CALL [facility]ENTER [phone] Vandana, Sydnee Ndiaye, DO [address] [facility] [place], [place] [id number] Social History Tobacco Use Types Packs/Day Years [...] suspected to have Coronavirus/COVID-19? No / Unsure 04/06/2022 2:02 PM EST documented as of this encounter Plan of Treatment Upcoming Encounters Date Type Department Care Team (Late Contact Info) Description 01/04/2024 11:20 AM EDT Procedure Visit [facility] [address] [facility] [place] Floor 9 [place] [address] Katie Jones AUD 01/06/2024 2:00 PM EDT Appointment [facility] [address] [place] [address] 01/09/2024 2:00 PM EDT Office Visit [facility] [address] [facility] [place] 19th Floor [address] [place] [address] Radha Coker MD [address] [place] [address] 01/10/2024 8:30 AM EDT Office Visit [facility] [address] [place] [address] Sydnee Ross DO [address] [facility] [place] [address] 01/11/2024 10:00 AM EDT Office Visit [facility] - ENT & Facial Plastic Surgery [address] [facility] [address] [place] [address] Kat Rico, PA [address] [place] [address] 01/20/2024 11:45 AM EDT Clinical Support [facility] [address] [place] [address] Maria Eugenia Lucero, ORA [address] [place] [address] 01/30/2024 8:40 AM EST Office Visit [facility] [address] [facility] [place] 15th Floor [address] [place] [address] Jose Monique MD [address] Medical Office [place] 15th Floor, [address] [place] [address] 02/27/2024 12:50 PM EST Office Visit [facility] [address] 4 [address] [place] [address] Kellie Bowser, OD [address] 4, [address] [facility] [place] [address] 06/19/2024 11:30 AM EDT Appointment [place] [id number] [facility] [address] [place] [address] 06/19/2024 1:00 PM EDT Appointment [place] [address] [facility] 120 [place] [address] 08/21/2024 1:40 PM EDT Office Visit [facility] at [address] 3rd [place] [address] Satya Wright PA [address] [facility] [address] 3rd [place] [address] 09/05/2024 10:30 AM EDT Office Visit [facility] [address] [place] [address] Tatiana Dominguez, CERTIFED REFRIGERATION OPERATOR [address] [place] [address] documented as of this encounter Visit Diagnoses Not on filedocumented in this encounter Additional Health Concerns Assessment Noted Time A fall risk assessment has been complete d for the patient 02/17/2022 8:58 AM EST documented as of this encounter
--- OUTSIDE RECORDS SUMMARY | 2023-11-14 01:06 | XMS_ITS | Encounter Summary ---
Author Organization [facility] Address [address], [place] [address] Phone Care Team Providers Care Facility Service Manager Name Role Phone Unavailable Primary Care Provider Unavailabl e Reason for Referral * Outpatient Surgery (Routine) - Closed Specialty Diagnoses / Procedures Referred By Farrah shook Referred To Contact Gastroenterology Diagnoses History of colon polyps Procedures Colonoscopy Flexible Polypectomy/Tumor Removal AR UNLISTED PROCEDURE SMALL INTESTINE AR COLONOSCOPY FLX DX W/COLLJ SPEC WHEN PFRMD AR COLONOSCOPY W/BIOPSY SINGLE/MULTIPLE AR COLONOSCOPY FLX W/ENDOSCOPIC MUCOSAL RESECTION AR COLSC FLX WITH DIRECTED SUBMUCOSAL NJX ANY SBST AR COLSC FLEXIBLE W/CONTROL BLEEDING ANY METHOD AR COLSC FLEXIBLE W/TRANSENDOSCOPIC BALLOON DILAT AR SIGMOIDOSCOPY,ABLATE LESN AR COLONOSCOPY W/BIOPSY SINGLE/MULTIPLE AR FECAL MICROBIOTA PREP INSTIL AR PREPARE FECAL MICROBIOTA FOR INSTILLATION AR COLSC FLX W/NDSC US XM RCTM ET AL LMTD&ADJ STRUX AR SIGMOIDOSCOPY FLX NDSC US XM AR COLSC FLX W/RMVL OF TUMOR POLYP LESION SNARE TQ AR COLONOSCOPY FLX WITH ENDOSCOPIC STENT PLACEMENT [facility] [address] [place] [address] [address] [facility] [address] [place] [address] Referral ID Status Reason Start Date Expiration Date Visits Re quested Visits Authorized [id number] Closed 03/11/2022 03/11/2023 1 1 Reason for Visit * Outpatient Surgery (Routine) - Closed Specialty Diagnoses / Procedures Referred By Farrah shook Referred To Contact Gastroenterology Diagnoses History of colon polyps Procedures Colonoscopy Flexible Polypectomy/Tumor Removal AR UNLISTED PROCEDURE SMALL INTESTINE AR COLONOSCOPY FLX DX W/COLLJ SPEC WHEN PFRMD AR COLONOSCOPY W/BIOPSY SINGLE/MULTIPLE AR COLONOSCOPY FLX W/ENDOSCOPIC MUCOSAL RESECTION AR COLSC FLX WITH DIRECTED SUBMUCOSAL NJX ANY SBST AR COLSC FLEXIBLE W/CONTROL BLEEDING ANY METHOD AR COLSC FLEXIBLE W/TRANSENDOSCOPIC BALLOON DILAT AR SIGMOIDOSCOPY,ABLATE LESN AR COLONOSCOPY W/BIOPSY SINGLE/MULTIPLE AR FECAL MICROBIOTA PREP INSTIL AR PREPARE FECAL MICROBIOTA FOR INSTILLATION AR COLSC FLX W/NDSC US XM RCTM ET AL LMTD&ADJ STRUX AR SIGMOIDOSCOPY FLX NDSC US XM AR COLSC FLX W/RMVL OF TUMOR POLYP LESION SNARE TQ AR COLONOSCOPY FLX WITH ENDOSCOPIC STENT PLACEMENT [facility] [address] [facility] [address] [place] [address] Referral ID Status Reason Start Date Expiration Date Visits Re quested Visits Authorized [id number] Closed 03/11/2022 03/11/2023 1 1 Encounter Details Date Type Department Care Team (Late st Contact Info) Description 05/19/2022 1:01 PM EST - 05/19/2022 11:59 PM EST Hospital Encounter [facility] [place] [address] [facility] [address], Floor 1 [address] [place] [address] Walter Love MD [address] [place] [address] Leela Oden MD [address] [place] [address] Ignacio Mehta History of colon polyps Discharge Disposition: DISCHARGED TO HOME OR SELF [...] Sign Reading Time Taken Comments Blood Pressure 153/74 05/19/2022 3:26 PM EST Pulse 66 05/19/2022 3:26 PM EST Temperature 35.8 ??C (96.5 ??F) 05/19/2022 1:41 PM ES T Respiratory Rate 22 05/19/2022 3:26 PM EST Oxygen Saturation 100% 05/19/2022 3:26 PM EST Inhaled Oxygen Concentration - - Weight 68.5 kg (151 lb 0.2 oz) 05/13/2022 1:15 P M EST Height 175.3 cm (5' 9) 05/13/2022 1:15 PM EST Body Mass Index 22.3 05/13/2022 1:15 PM EST documented in this encounter Medications at Time of Discharge Medication Sig Dispensed Refills Start Date End Date ascorbic lugp-grzmgfjb-css (Emergen-C) 1,000 mg powder effervescent in packet Take by mouth once daily. 03/28/2019 ibuprofen 200 mg tablet Take by mouth if needed. PRN 03/28/2021 multivit with minerals/lutein (MULTIVITAMIN 50 PLUS ORAL) Take by mouth once daily. 03/28/2022 omega 6-tgj-zjq-fish oil 1,000 mg (120 mg-180 mg) capsule [...] mouth. 07/08/2022 documented as of this encounter H&P Notes * Walter Love MD - 05/19/2022 2:00 PM EST PRE-OPERATIVE HISTORY AND PHYSICAL NAME:Gianna Infante : 1945 DATE: 05/19/2022 TIME: 2:30 PM Indication For Procedure/HPI: Gianna Infante is a 76 y.o. year old with PMH as detailed below presents today here for an endoscopy for any of the listed reasons: colon cancer screening, personal history of polyps/colon cancer, genetic colon cancer syndromes, polyposis syndromes, abnormal imaging orfamily history of colon cancer. The actual listed indication was discussed in detail and is indicated on the consent. PMH Past Medical History Diagnosis Date Anxiety 1951 Arthritis of both hands 06/10/2015 Right > left Cataract 2012 Chronic constipation August 2021 Chronic neck pain 03/26/2022 Colon polyp 2007 Compression fracture of body of thoracic vertebra (CMS/HCC) 02/17/2022 Diverticulosis 03/26/2022 Dry eyes 2012 Dysphagia 10/2021 GERD (gastroesophageal reflux disease) Heart murmur 1989 History of basal cell carcinoma (BCC) 06/18/2011 B/w right eye and nose. 06/18/2011-[facility] History of colon polyps 08/09/2018 Hypertension [...] 06/27/2008 Thyroid nodule 03/26/2022 Varicose veins 01/13/2011 PSH Past Surgical History: Procedure Laterality Date CATARACT EXTRACTION Bilateral 2020 CE-IOL OU TOTAL KNEE ARTHROPLASTY Bilateral 2017 and 2021 VASCULAR SURGERY 1979?-Varicose vein stripping in both legs Medications Current Outpatient Medications on File Prior to Encounter Medication Sig Dispense Refill ascorbic ehfl-vqqtgvzy-xiy (Emergen-C) 1,000 mg powder effervescent in packet atorvastatin (Lipitor) 40 mg tablet Take 1 tablet (40 mg) by mouth once daily. 90 tablet 1 ibuprofen 200 mg tablet magnesium 250 mg tablet melatonin 0.5 mg tablet split tablet polyvinyl alcohol-povidon,PF, (Refresh Classic, PF,) 1.4-0.6 % eye drops in a dropperette vitamin K2 40 mcg tablet Take by mouth. zoledronic acid/mannitol-water (RECLAST IV) Infuse into a venous catheter. omeprazole (PriLOSEC) [address] capsule Take 1 capsule (40 mg) by mouth before breakfast. Do not crush or chew. 30 capsule 2 No current facility-administered medications on file prior to encounter. Scheduled Meds Continuous Infusions lactated Ringer's, 25 mL/hr PRN Meds PRN medications: albuterol, albuterol, lidocaine Allergies Allergies Allergen Reactions Bee Venom Protein (Honey Bee) Anaphylaxis Fluoxetine Other reaction(s): Other (See Comments), Other (See Comments) paranoid Paranoid Paranoid Estrogens, Conjugated Hymenoptera Allergenic Extract Serotonin Hallucinations Wasp Venom Social History reports that she has never smoked. She has never used smokeless tobacco. She reports current alcohol use of about 1.0 standard drink per week. She reports that she does not use drugs. Family History family history includes Alcohol abuse in her mother; Arthritis in her mother; Cataracts in her mother; Depression in her mother; Heart attack in her father; Heart disease in her father; Hip fracture in her mother; Hypertension in her father; Vision loss in her father and mother. PHYSICAL EXAM Visit Vitals BP 155/71 Pulse 79 Temp (!) 35.8 ??C (96.5 ??F) (Temporal) Resp 17 Ht 1.753 m (5' 9) Wt 68.5 kg (151 lb 0.2 oz) SpO2 99% BMI 22.30 kg/m?? OB Status Postmenopausal Smoking Status Never BSA 1.83 m?? Gen: well dressed, awake, cooperative, NAD, conversant HEENT: sclera/ conjunctiva clear, no icterus, grossly EOMI, hearing intact. CV: well perfused, no appreciable edema. Pulm: unlabored breathing, no stridor, chest wall rises and falls normally with breathing, able to speak full sentences without dyspnea. Abd: No abd wall swelling appreciated, no guarding or TTP to self-touch. Derm: no visible rashes on exposed skin, no visible wounds or bruises. Psych: normal mood/affect. AAOx3 with good insight, memory grossly intact. LABS: Reviewed in [facility]. IMAGING: Reviewed in [facility]. ASSESSMENT and PLAN I have examined the patient and reviewed/confirmed with the patient/surrogate the medications, allergies, substance use, prior medical/surgical/anesthesia history, and pertinent ROS. I have reviewed the sedation plan with the patient/surrogate. The patient has been found suitable for the planned . The patient consents verbally to the procedure and understands the procedure alternatives, benefits, plus reiterates risks and accepts the risks, including the possibility of complications such as bleeding, perforation, infection, non- diagnostic procedure/failure to complete procedure, and from complications. These risks are across all procedure manuevers. Procedural Sedation: Risk stratification and anesthesia administration by independent sedation provider; please see separate notes for details. documented in this encounter Miscellaneous Notes * PatientPass - Ignacio Mehta - 05/19/2022 3:16 PM EST Patient Education Table of Contents Colonoscopy, Adult, Care After To view videos and all your education online visit, [email or web address] or scan this QR code with your smartphone. * Preprocedure Instructions - Sandro Sy. - 05/19/2022 2:00 PM EST Patient instructed to follow instructions for upcoming procedure given by email, voicemail, or Mychart and to call [phone] for any questions concerning procedure. Patient instructed of arrival time, must have regional company truck driver over age of 18 at check-in, the importance of wearing a mask at all times, regional company truck driver must stay on site during procedure. Patient instructed to monitor for COVID symstoms including congestion, fever, cough or any other COVID type systems and call [phone] if systems develop or if patient test positive for COVID to reschedule the appointment. * Significant Event - Rani Campos - 05/19/2022 1:40 PM EST Ramon mcdonough ok to pacu documented in this encounter Plan of Treatment Upcoming Encounters Date Type Department Care Team (Late st Contact Info) Description 01/04/2024 11:20 AM EDT Procedure Visit [facility] [address] [facility] Medical Office [place] Floor 9 [place] [address] Katie Jones AUD 01/06/2024 2:00 PM EDT Appointment [facility] [address] [place] [address] 01/09/2024 2:00 PM EDT Office Visit [facility] [address] [facility] Medical Office [place] 19th Floor [address] [place] [address] Radha Coker MD 550 [place] [address] 01/10/2024 8:30 AM EDT Office Visit [facility] - Primary Care [address] [place] [address] Vandana, Sydnee Ndiaye DO [address] [facility] [place] [address] 01/11/2024 10:00 AM EDT Office Visit [facility] - E[facility] & [facility] Surgery [address] [place] [address] Kat Rico, PATTIE [address] [place] [address] 01/20/2024 11:45 AM EDT Clinical Support [facility] [address] [place] [address] Maria Eugenia Lucero, ORA [address] [place] [address] 01/30/2024 8:40 AM EST Office Visit [facility] [address] [facility] Medical Office [place] 15th Floor [address] [place] [address] Jose Monique MD [address] [facility] [place] 15th Floor, [address] [place] [address] 02/27/2024 12:50 PM EST Office Visit [facility] [address] [place] [address] Kellie Bowser, OD [address], [address] [facility] [place] [address] 06/19/2024 11:30 AM EDT Appointment [place] [address] [facility] [address] [place] [address] 06/19/2024 1:00 PM EDT Appointment [place] [address] [facility] [address] [place] [address] 08/21/2024 1:40 PM EDT Office Visit [facility] at [address] 3rd Floor [place], [place] [phone] Satya Wright PA [address] [facility] [address] 3rd [place] [address] 09/05/2024 10:30 AM EDT Office Visit [facility] [address] [place] [address] Tatiana Dominguez NP [address] [place] [address] documented as of this encounter Procedures Procedure Name Priority Date/Time Associated Diagnosis Comments COLONOSCOPY FLEXIBLE Routine 05/19/2022 3:12 PM EST History of colon polyps TISSUE EXAM Routine 05/19/2022 3:10 PM EST History of colon polyps documented in this encounter Results * Colonoscopy Flexible Polypectomy/Tumor Removal (05/19/2022 3:12 PM EST) Anatomical Region Laterality Modality Endoscopy 05/19/2022 2:43 PM EST Narrative 05/19/2022 3:15 PM EST (ASC KASSANDRA B) [facility] Patient Name: Gianna Infante , ? Procedure Date: 05/19/2022 2:43 PM ? Date of : 1945 ?Admit Type: Ambulatory Age: 76 ? Gender: Female Note Status: Finalized ?Attending MD: Gareth Love MD Patient Location: [address] [place] [address] ? Instrument Name: [id number] Number of Addenda: 0 Procedure Date: ?05/19/2022 2:43:17 PM Procedure: ? Colonoscopy Indications: ? High risk colon cancer surveillance: Personal history ? of colonic polyps Providers: ? Gareth Love MD (Doctor) Referring MD: ?Sydnee Ross MD Medicines: ? Monitored Anesthesia Care Complications: [...] saturations were monitored continuously. The ? Colonoscope [id number] was introduced through ? the anus and [...] Procedure Code(s): ? --- Professional --- ? 09156, Colonoscopy, flexible; with biopsy, single or ? multiple Diagnosis Code(s): ? --- Professional --- ? Z86.010, Personal history of colonic polyps ? D12.8, Benign neoplasm of rectum ? K57.30, Diverticulosis of large intestine without ? perforation or abscess without bleeding CPT copyright 2021 [employer]. All rights reserved. The codes documented in this report are preliminary and upon hims coder review may be revised to meet [...] Love MD - 05/19/2022 (ASC KASSANDRA B) [facility] [place] [facility] Patient Name: Gianna Infante , Procedure Date: 05/19/2022 2:43 PM Date of : 1945 Admit Type: Ambulatory Age: 76 Gender: Female Note Status: Finalized Attending MD: Gareth Love MD Patient Location: [id number] Instrument Name: [id number] Number of Addenda: 0 Procedure Date: 05/19/2022 2:43:17 PM Procedure: Colonoscopy Indications: High risk colon cancer surveillance: Personalhistory of colonic polyps Providers: Gareth Love MD (Doctor) Referring MD: Sydnee Ross MD Medicines: Monitored Anesthesia Care Complications: No [...] oxygen saturations were monitored continuously. The Colonoscope [id number] was introducedthrough the anus and advanced to [...] your procedure. Procedure Code(s): --- Professional --- 68063, Colonoscopy, flexible; with biopsy, singleor multiple Diagnosis Code(s): --- Professional --- Z86.010, Personal history of colonic polyps D12.8, Benign neoplasm of rectum K57.30, Diverticulosis of large intestine without perforation or abscess without bleeding CPT copyright 2020 [employer]. All rights reserved. The codes documented in this report are preliminary and upon hims coder reviewmay be revised to meet current [...] 3:10:34 PM Walter Love MD ENDOSCOPY PROCE [facility] ORDERABLES * Tissue Exam (05/19/2022 3:10 PM EST) Case Report Surgical Pathology ?Case: [id number] ? Authorizing Provider: ??Walter Love MD ??Collected: ? 05/19/2022 1510 ? Ordering Location: ? [facility] ?? Received: ?05/20/2022 0611 ? [place] [facility] [place] ? Pathologist: ? Min Parker MD ? Specimen: ?Rectum, Rectum Polyp(jf) ? 3 10:23 AM [facility] Pathologic Diagnosis Rectum , polyp, biopsy: Hyperplastic polyp. 3 10:23 AM [facility] Microscopic Description Microscopic examination of the specimen(s) was performed unless ? gross-only? is specified. 3 10:23 AM [facility] Gross Description Specimen A is received in formalin labeled with the patient's name, medical record number, and rectum polyp (JF). # of Fragment(s): 1 Size(s): 0.3 cm Cassette Summary: A1 filtered Dictated by PATTIE Orr(ASCP) 3 10:23 AM [facility] Disclaimer For all special stai ns performed by [facility], including immunohistochemistry (IHC) and in-situ hybridization (JUICE [...] possibility of false negativity on decalcified specimens. 3 10:23 AM EST [facility] Tissue Rectum structure / Unknown 05/19/2022 3:10 PM EST 05/20/2022 6:11 AM EST Walter Love MD LAB PATHOLOGY O RDERABLES [facility] [address] [place] [address] documented in this encounter Visit Diagnoses Diagnosis History of colon polyps documented in this encounter Additional Health Concerns Assessment Noted Time A fall risk assessment has been complete d for the patient 04/19/2022 3:06 PM EST documented as of this encounter
--- OUTSIDE RECORDS SUMMARY | 2023-11-14 01:06 | XMS_ITS | Encounter Summary ---
Author Organization [facility] Address [address] [place] [address], [place] [address] Phone Care Team Providers Care Marketing Development Manager Name Role Phone Unavailable Primary Care Provider Unavailabl e Reason for Visit * Reason Onset Date Comments Advice Only 03/12/2022 Encounter Details Date Type Department Care Team (Late st Contact Info) Description 03/12/2022 Telephone [facility] [phone] Walter Conrad MD [address] [facility] 5, [address] [place] [address] Advice Only Social History Tobacco Use Types [...] encounter Miscellaneous Notes * Telephone Encounter - Sangeetha Arroyo - 03/12/2022 12:16 PM EST APPOINTMENT REQUEST (This is intended for all new or return / appt changes - one in which the Call Center cannot meet the patient's need and on-site team direction is needed) (If not the patient) Caller's Name & Relationship: _ Preferred Phone # for call back: [phone] Reason sending to on-site team: Patient would like to schedule a colonoscopy. Please kindly advise. Current Appointment Date/Time: _ Comments: _ documented in this encounter Plan of Treatment Upcoming Encounters Date Type Department Care Team (Late st Contact Info) Description 01/04/2024 11:20 AM EDT Procedure Visit [facility] [address] [facility] [place] Floor 9 [place] [address] Katie Jones AUD 01/06/2024 2:00 PM EDT Appointment [facility] [address], [place] [id number] 01/09/2024 2:00 PM EDT Office Visit [facility] [address] [facility] [place] 19th Floor [address] [place] [address] Radha Coker MD 550 [place] [address] 01/10/2024 8:30 AM EDT Office Visit [facility] - Primary Care [address] [place] [address] Sydnee Ross, [address] [facility] [place] [address] 01/11/2024 10:00 AM EDT Office Visit [facility]ial Plastic Surgery [address] [facility] [address] [place], [place] [phone] Kat Rico PA [address] [facility] [place] [address] 01/20/2024 11:45 AM EDT Clinical Support [facility] [address] [place] [address] Maria Eugenia Lucero LAC [address] [place] [address] 01/30/2024 8:40 AM EST Office Visit [facility] [address] [facility] [place] 15th Floor [address] [place] [address] Jose Monique MD 550 [facility] Office [place] 15th Floor, [address] [place] [address] 02/27/2024 12:50 PM EST Office Visit [facility] [address] [facility] Floor 4 [address] [place] [phone] Kellie Bowser, OD [address] [facility] Fl 4, [address] [facility] [place] [address] 06/19/2024 11:30 AM EDT Appointment [place] [address] [address] 06/19/2024 1:00 PM EDT Appointment [place] [address] [place] [address] 08/21/2024 1:40 PM EDT Office Visit [facility] [address] [facility] 3rd [place] [address] Satya Wright PA [address] [facility] 3rd [place] [address] 09/05/2024 10:30 AM EDT Office Visit [facility] [address] [place] [address] Tatiana Dominguez NP [address] [place] [address] documented as of this encounter Visit Diagnoses Not on filedocumented in this encounter Additional Health Concerns Assessment Noted Time A fall risk assessment has been complete d for the patient 02/17/2022 8:58 AM EST documented as of this encounter
--- OUTSIDE RECORDS SUMMARY | 2023-11-14 01:06 | XMS_ITS | Encounter Summary ---
Author Organization [facility] Address [address] [place], [place], [place] [address] Phone Care Team Providers Care Roving Changer Name Role Phone Unavailable Primary Care Provider Unavailabl e Encounter Details Date Type Department Care Team (Late st Contact Info) Description 03/09/2022 Telephone [facility] - Primary Care [address] [place] [address] Sydnee Ross DO [address] [facility] [place] [address] Social History Tobacco Use Types Packs/Day Years [...] Telephone Encounter - Sydnee Ross DO - 03/09/2022 12:14 PM EST Noticed pt has appt with me 03/26 for Spot on side of face wants to freeze it off. I am happy to exam concerning skin lesion, however please let patient know if it needs treatment she will need to see dermatology. Looks like she has upcoming appt in april with them. Thanks, Dr. Ross documented in this encounter Plan of Treatment Upcoming Encounters Date Type Department Care Team (Late st Contact Info) Description 01/04/2024 11:20 AM EDT Procedure Visit [facility] 550 [facility] Medical Office [place] Floor 9 [place] [address] Katie Jones, LISA 01/06/2024 2:00 PM EDT Appointment [facility] [address] [place] [address] 01/09/2024 2:00 PM EDT Office Visit [facility] 550 [facility] Medical Office [place] 19th Floor [address] [place] [address] Radha Coker MD 550 [place] [address] 01/10/2024 8:30 AM EDT Office Visit [facility] - Primary Care [address] [place] [address] Sydnee Ross DO [address] [facility] [place] [address] 01/11/2024 10:00 AM EDT Office Visit [facility] - ENT & Facial Plastic Surgery [address] [facility] [address] [place] [address] Kat Rico, PA [address] [place] [phone] 01/20/2024 11:45 AM EDT Clinical Support [facility] [address] [place] [address] Maria Eugenia Lucero LAC [address] [address] 01/30/2024 8:40 AM EST Office Visit [facility] [address] [place] Medical Office [place] 15th Floor [address] [place] [address] Jose Monique MD 550 [facility] Office [place] 15th Floor, [address] [place] [address] 02/27/2024 12:50 PM EST Office Visit [facility] [address] 4 [address] [place] [phone] Kellie Bowser, OD [address], [address] [facility] [place] [address] 06/19/2024 11:30 AM EDT Appointment [place] [address] [address] 06/19/2024 1:00 PM EDT Appointment [place] [address] [address] 08/21/2024 1:40 PM EDT Office Visit [facility] [address] [place] [phone] [facility] 3rd [place] [address] Satya Wright PA [address] [facility] 3rd [place] [address] 09/05/2024 10:30 AM EDT Office Visit [facility] [address] [place] [address] AlbertoTatiana almonte NP [address] [place] [address] documented as of this encounter Visit Diagnoses Not on filedocumented in this encounter Additional Health Concerns Assessment Noted Time A fall risk assessment has been complete d for the patient 02/17/2022 8:58 AM EST documented as of this encounter
--- OUTSIDE RECORDS SUMMARY | 2023-11-14 01:06 | XMS_ITS | Encounter Summary ---
Author Organization [facility] Address [address] [place] [address], [place] [address] Phone Care Team Providers Care School Aide Name Role Phone Unavailable Primary Care Provider Unavailabl e Reason for Referral * Consultation (Routine) - Closed Specialty Diagnoses / Procedures Referred By Farrah shook Referred To Contact Podiatry Diagnoses [place] of toe Procedures [place] OFFICE/OUTPATIENT [facility] 60-74 MINUTES Style, Sydnee Ndiaye, DO [address] [place] [address] Referral ID Status Reason Start Date Expiration Date V isits Requested Visits Authorized [id number] Closed Specialty Services Required 05/27/2022 05/27/2023 1 1 * Consultation (Routine) - Closed Specialty Diagnoses / Procedures Referred By Contac t Referred To Contact Physical Therapy Diagnoses Low back pain, unspecified back pain laterality, unspecified chronicity, unspecified whether sciatica present Procedures [place] OFFICE/OUTPATIENT [facility] 60-74 MINUTES Vandana, Sydnee Ndiaye, DO [address] [place] [address] Referral ID Status Reason Start Date Expiration Date V isits Requested Visits Authorized [id number] Closed Specialty Services Required 05/27/2022 05/27/2023 10 10 Reason for Visit * Reason Comments Follow-up Encounter Details Date Type Department Care Team (Late st Contact Info) Description 05/27/2022 10:30 AM EST Office Visit [facility] - Primary Care [address] [place], [place] [phone] Style, Sydnee Solomonll, DO [address] [facility] - [place] [address] Elevated LFTs (Primary Dx); Low back pain, unspecified back pain laterality, unspecified chronicity, unspecified whether sciatica present; [place] of toe; Bilateral impacted cerumen; Pancreatic lesion; Memory deficit; Lung nodule; Gastroesophageal reflux disease, unspecified whether esophagitis present; Elevated blood pressure reading Social History Tobacco Use Types Packs/Day Years [...] suspected to have Coronavirus/COVID-19? No / Unsure 05/27/2022 9:44 AM EST documented as of this encounter Last Filed Vital Signs Vital Sign Reading Time Taken Comments Blood Pressure 138/80 05/27/2022 9:58 AM EST Pulse 69 05/27/2022 9:58 AM EST Temperature 37 ??C (98.6 ??F) 05/27/2022 9:58 AM EST Respiratory Rate 16 05/27/2022 9:58 AM EST Oxygen Saturation 97% 05/27/2022 9:58 AM EST Inhaled Oxygen Concentration - - Weight 67.1 kg (148 lb) 05/27/2022 9:58 AM EST Height 175.3 cm (5' 9) 05/27/2022 9:58 AM EST Body Mass Index 21.86 05/27/2022 9:58 AM EST documented in this encounter Progress Notes * Vandana, Sydnee Ndiaye, DO - 05/27/2022 10:30 AM EST Subjective Patient ID: Gianna Infante is a 76 y.o. female who presents for Follow-up. HPI Elevated LFT's Etoh use: 1/2 glass wine nightly Taking tylenol 1 tab as needed Pancreatic lesion: endoscopy and ultrasound guided fine needle aspiration of pancreatic cyst 04/28/2021. Notes indicate that there was only a small sample obtained so the aspirate was deemed nondiagnostic and suggested clinical follow-up. The recommendation was to await tumor markers and cytology results and if benign t nicolasa recommended managing conservatively but would consider follow-up MRI of pancreas in 6 months. Pulmonary nodule: Never smoker, seen on CT 01/16. Had repeat CT 3 years ago was told benign in did not need to have further follow-up. 4. Left lower lobe 5 mm pulmonary nodule. According to the Fleischner Society Guidelines for incidentally discovered solid pulmonary nodules (MacMahon et al, Radiology, 2017): Recommend correlation with prior exams if available to confirm stability. Otherwise, if patient is at low risk for lung cancer, no further followup is required; if patient is at high risk for lung cancer, recommend followup CT at 12 months. Started on reclast by endo for osteoporosis Colonoscopy: 1 polyp removed. Awaiting path. Low back pain: worse with bending forward, no radicular sx Elevated bp at previous office visit Pt wondering about ppi use relating to her osteoporosis. Sx of choking when lying down has improved. Has upcoming dental work Memory improved since moving here, less anxious Would like ear wax removed Painful corn on 3rd toe right foot, has been using otc corn tx and corn pads. LBP-no radicular sx, worse with forward bending, would like to see PT Review of Systems All other systems reviewed and are negative. Visit Vitals BP 138/80 (BP Location: Left arm, Patient Position: Sitting, BP Cuff Size: Adult) Pulse 69 Temp 37 ??C (98.6 ??F) (Temporal) Resp 16 Objective Physical Exam Constitutional: Appearance: Normal appearance. HENT: Head: Normocephalic and atraumatic. Right Ear: Ear canal and external ear normal. There is impacted cerumen. Left Ear: Ear canal and external ear normal. There is impacted cerumen. Mouth/Throat: Mouth: Mucous membranes are moist. Pharynx: [...] is no abdominal tenderness. There is no guarding or rebound. Musculoskeletal: Cervical back: Neck supple. Right lower leg: No edema. Left lower leg: No edema. Skin: General: Skin is warm. Neurological: General: No focal deficit present. Mental Status: She is alert. Psychiatric: Mood and Affect: Mood normal. Behavior: Behavior normal. Assessment/Plan 1. Elevated LFTs We will simply repeat labs to see if LFTs normalize. If they remain elevated will pursue further work-up. - Comprehensive metabolic panel; Future 2. Low back pain, unspecified back pain laterality, unspecified chronicity, unspecified whether sciatica present Refer to physical therapy - Ambulatory referral to Physical Therapy; Future 3. [place] of toe Refer to podiatry - Ambulatory referral to Podiatry; Future 4. Bilateral impacted cerumen Patient tolerated procedure well. No complications. - Ear cerumen removal; Future 5. Pancreatic lesion See HPI for details, recommend she discuss neck steps with GI 6. Memory deficit Memory has been improving since she has moved to [place] and her anxiety has reduced. We will continue to monitor. If declines can refer to neuropsych 7. Lung nodule Still awaiting records, patient has never been a smoker before. Based on records we will discuss ifwe need to repeat in December or not. 8. Gastroesophageal reflux disease, unspecified whether esophagitis present Choking sensation improved while taking PPI. Since patient has upcoming dental work I think she should continue for now. In the future she can stepdown to Pepcid 9. Elevated blood pressure reading Blood pressure within normal limits today. Recommend she monitor home blood pressures. If persistently elevated return for follow-up documented in this encounter Plan of Treatment Upcoming Encounters Date Type Department Care Team (Late st Contact Info) Description 01/04/2024 11:20 AM EDT Procedure Visit [facility] 550 [facility] Medical Office [place] Floor 9 [place] [address] Katie Jones, LISA 01/06/2024 2:00 PM EDT Appointment [facility] [address] [place], [place] [address] 01/09/2024 2:00 PM EDT Office Visit [facility] 550 [facility] Medical Office [place] 19th Floor [address] [place] [address] Radha Coker MD 550 [place] [address] 01/10/2024 8:30 AM EDT Office Visit [facility] - Primary Care [address] [place] [address] Sydnee Ross DO [address] [facility] - [place] [address] 01/11/2024 10:00 AM EDT Office Visit [facility] - ENT & Facial Plastic Surgery [address] [facility] [address] [place], [place] [address] Kat Rico PA [address] [place] [address] 01/20/2024 11:45 AM EDT Clinical Support [facility] [address] [place] [address] Maria Eugenia Lucero, ORA [address] [place] [address] 01/30/2024 8:40 AM EST Office Visit [facility] 550 [facility] [place] 15th Floor [address] [place] [address] Jose Monique MD 550 [facility] Office [place] 15th Floor, [address] [place] [address] 02/27/2024 12:50 PM EST Office Visit [facility] [address] [facility] Floor 4 [address] [place] [address] [phone] Kellie Bowser, OD [address] [facility] [address] 4, [address] [facility] [place] [address] 06/19/2024 11:30 AM EDT Appointment [place] [address] [address] 06/19/2024 1:00 PM EDT Appointment [place] [address] [address] 08/21/2024 1:40 PM EDT Office Visit [facility] [address] 3rd [place] [address] Satya Wright PA [facility] 3rd [place] [address] 09/05/2024 10:30 AM EDT Office Visit [facility] [address] [place] [address] Tatiana Dominguez, KASH [address] [address] Scheduled Orders Name Type Priority Associated Diagnoses Orde r Schedule Ear cerumen removal Procedures Routine Bilateral impacted cerumen Expected: 05/27/2022 (Approximate), Expires: 05/28/2023 Scheduled Referrals Name Type Priority Associated Diagnoses Orde r Schedule Ambulatory referral to Physical Therapy Outpatient Referral Routine Low back pain, unspecified back pain laterality, unspecified chronicity, unspecified whether sciatica present Expected: 05/27/2022 (Approximate), Expires: 05/28/2023 Ambulatory referral to Podiatry Outpatient Referral Routine [place] of toe Expected: 05/27/2022 (Approximate), Expires: 05/28/2023 documented as of this encounter Results * (ABNORMAL) Comprehensive metabolic panel (05/27/2022 11:09 AM EST) Sodium 141 136 - 145 mmol/L LAB CHEMISTRY METHOD 05/27/2022 4:55 PM EST [facility] Potassium 4.1 3.5 - 5.1 mmol/L LAB CHEMISTRY METHOD 05/27/2022 4:55 PM EST [facility] Chloride 102 98 - 107 mmol/L LAB CHEMISTRY METHOD 05/27/2022 4:55 PM EST [facility] Carbon Dioxide Level 26 23 - 29 mmol/L LAB CHEMISTRY METHOD 05/27/2022 4:55 PM EST [facility] Calcium Level Total 9.4 8.6 - 10.3 mg/dL LAB CHEMISTRY METHOD 05/27/2022 4:55 PM EST [facility] Blood Urea Nitrogen 12 7 - 25 mg/dL LAB CHEMISTRY METHOD 05/27/2022 4:55 PM EST [facility] Creatinine 0.63 0.60 - 1.20 mg/dL LAB CHEMISTRY METHOD 05/27/2022 4:55 PM EST [facility] Glucose 86 70 - 105 mg/dL LAB CHEMISTRY METHOD 05/27/2022 4:55 PM EST [facility] Comment: Random Glucose* Diabetes is diagnosed at blood glucose of greater than or equal to 200 mg/dL Fasting Glucose* Normal: less than 100 mg/dL Prediabetes: 100 mg/dl to 125 mg/dL Diabetes: 126 mg/dL or higher *ADA guidelines Protein Total 6.9 6.4 - 8.9 gm/dL LAB CHEMISTRY METHOD 05/27/2022 4:55 PM EST [facility] Albumin Level 4.4 3.5 - 5.7 gm/dL LAB CHEMISTRY METHOD 05/27/2022 4:55 PM EST [facility] Alkaline Phosphatase 50 34 - 104 unit/L LAB CHEMISTRY METHOD 05/27/2022 4:55 PM EST [facility] Alanine Aminotransferase 46 7 - 52 unit/L LAB CHEMISTRY METHOD 05/27/2022 4:55 PM EST [facility] Aspartate Aminotransferase 37 13 - 39 unit/L LAB CHEMISTRY METHOD 05/27/2022 4:55 PM EST [facility] Total Bilirubin 0.4 0.3 - 1.0 mg/dL LAB CHEMISTRY METHOD 05/27/2022 4:55 PM EST [facility] Anion Gap 13(H) 2 - 11 mmol/L LAB CHEMISTRY METHOD 05/27/2022 4:55 PM EST [facility] Calculated Osmolality 281 275 - 295 mOsm/kg LAB CHEMISTRY METHOD 05/27/2022 4:55 PM EST [facility] U:C 19 7 - 21 LAB CHEMISTRY METHOD 05/27/2022 4:55 PM EST [facility] Estimated GFR 87 >=60 mL/min/1. 73m2 LAB CHEMISTRY METHOD 05/27/2022 4:55 PM EST [facility] Comment: The eGFR is calculated [...] 1. Based on review of evidence, the [facility] made the decision to stop reporting eGFR by race effective 09/03/2020. Blood Venous blood specimen / Unknown Venipuncture / Unknown 05/27/2022 11:09 AM EST 05/27/2022 11:09 AM EST Sydnee Ndiaye Style DO LAB BLOOD ORDERABLE S [facility] [address] [place] [address] documented in this encounter Visit Diagnoses Diagnosis Elevated LFTs- Primary Other abnormal blood chemistry Low back pain, unspecified back pain laterality, unspecified chronicity, unspecified whether sciatica present [place] of toe Corns and callosities Bilateral impacted cerumen Impacted cerumen Pancreatic lesion Memory deficit Memory loss Lung nodule Other diseases of lung, not elsewhere classified Gastroesophageal reflux disease, unspecified whether esophagitis present Elevated blood pressure reading Elevated blood pressure reading without diagnosis of hypertension documented in this encounter Additional Health Concerns Assessment Noted Time A fall risk assessment has been complete d for the patient 05/27/2022 9:57 AM EST documented as of this encounter
--- OUTSIDE RECORDS SUMMARY | 2023-11-14 01:06 | XMS_ITS | Encounter Summary ---
Author Organization [facility] Address [address] [place] [address], [place] [address] Phone Care Team Providers Care Marine Engineering Consultant Name Role Phone Unavailable Primary Care Provider Unavailabl e Encounter Details Date Type Department Care Team (Late Contact Info) Description 05/31/2022 Abstract [facility] [address] [facility] B Floor 3 [place] [address] Jerardo Maguire MD [address] [facility] B, [place] 3 [place] [address] Social History Tobacco Use Types Packs/Day Years [...] Description 01/04/2024 11:20 AM EDT Procedure Visit [facility] [address] [facility] Medical [facility] [place] Floor 9 [place] [address] Katie Jones AUD 01/06/2024 2:00 PM EDT Appointment [facility] [address] [place] [address] 01/09/2024 2:00 PM EDT Office Visit [facility] [address] [facility] Medical Office [place] 19th Floor [address] [place] [address] Radha Coker MD 550 [place] [address] 01/10/2024 8:30 AM EDT Office Visit [facility] [address] [place] [address] Vandana, Sydene Ndiaye DO [address] [facility] [place] [address] 01/11/2024 10:00 AM EDT Office Visit [facility] - ENT & Facial Plastic Surgery [address] [facility] 707 [place] [address] Kat Rico, PA 1364 [place] [address] 01/20/2024 11:45 AM EDT Clinical Support [facility] [address] [facility] [place] [address] Maria Eugenia Lucero, ORA [address] [place] [address] 01/30/2024 8:40 AM EST Office Visit [facility] [address] [facility] Medical Office [place] 15th Floor [address] [place] [address] Jose Monique MD 550 [facility] Office [place] 15th Floor, [address] [place] [address] 02/27/2024 12:50 PM EST Office Visit [facility] [address] [facility] [facility] [address] Floor 4 [address] [place] [address] Kellie Bowser, OD [address] [facility] [address], [address] [facility] [place] [address] 06/19/2024 11:30 AM EDT Appointment [place] [address] [place] [address] 06/19/2024 1:00 PM EDT Appointment [place] [address] [facility] [address] [place] [address] 08/21/2024 1:40 PM EDT Office Visit [facility] [address] 3rd [place] [address] Satya Wright PA [address] [facility] [address] 3rd Floor [place] [id number] 09/05/2024 10:30 AM EDT Office Visit [facility] [address] [place] [address] Tatiana Dominguez, NANNY/HOUSEHOLD MANAGER 12 [facility] [place] [address] documented as of this encounter Visit Diagnoses Not on filedocumented in this encounter Additional Health Concerns Assessment Noted Time A fall risk assessment has been complete d for the patient 05/27/2022 9:57 AM EST documented as of this encounter
--- OUTSIDE RECORDS SUMMARY | 2023-11-14 01:06 | XMS_ITS | Encounter Summary ---
Author Organization [facility] Address [address] [place], [place], [place] [address] Phone Care Team Providers Care Cotton Bag Sewer Name Role Phone Unavailable Primary Care Provider Unavailabl e Reason for Referral * Consultation (Routine) - Closed Specialty Diagnoses / Procedures Referred By Farrah shook Referred To Contact Physical Therapy Diagnoses Neck pain Procedures [place] OFFICE/OUTPATIENT NEW HIGH MDM 60-74 MINUTES Sydnee Ross DO [address] [place] [address] Referral ID Status Reason Start Date Expiration Date V isits Requested Visits Authorized [id number] Closed Specialty Services Required 03/09/2022 03/09/2023 10 10 Encounter Details Date Type Department Care Team (Late st Contact Info) Description 03/09/2022 Orders Only [place] [facility] Care [address] [place] [address] Sydnee Ross DO [address] [place] [address] Neck pain (Primary Dx) Social History Tobacco Use Types [...] suspected to have Coronavirus/COVID-19? No / Unsure 03/01/2022 12:02 PM EST documented as of this encounter Plan of Treatment Upcoming Encounters Date Type Department Care Team (Late st Contact Info) Description 01/04/2024 11:20 AM EDT Procedure Visit [facility] 550 [facility] Medical Office [place] Floor 9 [place] [address] Katie Jones, LISA 01/06/2024 2:00 PM EDT Appointment [facility] [address] [place] [address] 01/09/2024 2:00 PM EDT Office Visit [facility] 550 [facility] Medical Office [place] 19th Floor [address] [place] [address] Radha Coker MD 550 [place] [address] 01/10/2024 8:30 AM EDT Office Visit [facility] [address] [place] [address] Vandana, Sydnee Ndiaye, DO [address] [facility] [place] [address] 01/11/2024 10:00 AM EDT Office Visit [facility] - [facility]ial Plastic Surgery [address] [facility] [address] [place] [address] Kat Rico PA [address] [place] [address] 01/20/2024 11:45 AM EDT Clinical Support [facility] [address] [place] [address] Maria Eugenia Lucero LAC [address] [place] [address] 01/30/2024 8:40 AM EST Office Visit [facility] [address] [facility] Medical Office [place] 15th Floor [address] [place] [address] Jose Monique MD 550 [facility] [place] 15th Floor, [address] [place] [address] 02/27/2024 12:50 PM EST Office Visit [facility] [address] [facility] Floor 4 [address] [place] [phone] Kellie Bowser, OD [address], [address] [facility] [place] [address] 06/19/2024 11:30 AM EDT Appointment [place] [address] [place] [address] 06/19/2024 1:00 PM EDT Appointment [place] [address] [place] [address] 08/21/2024 1:40 PM EDT Office Visit [facility] [address] [facility] NE 3rd [place] [address] Satya Wright PA [address] 3rd [place] [address] 09/05/2024 10:30 AM EDT Office Visit [facility] [address] [place] [address] Tatiana Dominguez NP [address] [place] [address] Scheduled Referrals Name Type Priority Associated Diagnoses Order Schedule Ambulatory referral to Physical Therapy Outpatient Referral Routine Neck pain Expected: 03/09/2022 (Approximate), Expires: 03/09/2023 documented as of this encounter Visit Diagnoses Diagnosis Neck pain- Primary Cervicalgia documented in this encounter Additional Health Concerns Assessment Noted Time A fall risk assessment has been complete d for the patient 02/17/2022 8:58 AM EST documented as of this encounter
--- OUTSIDE RECORDS SUMMARY | 2023-11-14 01:06 | XMS_ITS | Encounter Summary ---
Author Organization [facility] Address [address] [place], [place], [place] [address] Phone Care Team Providers Care Aerospace Mechanic Name Role Phone Unavailable Primary Care Provider Unavailabl e Encounter Details Date Type Department Care Team (Late Contact Info) Description 05/11/2022 11:15 AM EST Lab [facility] [address] [place] [address] Osteoporosis, unspecified osteoporosis type, unspecified [...] AM EDT Procedure Visit [facility] 550 [facility] Medical Office [place] Floor 9 [place] [address] Katie Jones AUD 01/06/2024 2:00 PM EDT Appointment [facility] [address] [place] [address] 01/09/2024 2:00 PM EDT Office Visit [facility] 550 [facility] Medical Office [place] 19th Floor [address] [place] [address] Radha Coker MD 550 [place] [address] 01/10/2024 8:30 AM EDT Office Visit [facility] [address] [place] [address] Sydnee Ross, [address] [facility] [place] [place] [address] 01/11/2024 10:00 AM EDT Office Visit [facility] - ENT & Facial Plastic Surgery [address] [facility] 707 [place] [address] Kat Rico, [place] 1364 [place] [address] 01/20/2024 11:45 AM EDT Clinical Support [facility] [address] [facility] [place] [address] Maria Eugenia Lucero, [facility] [address] [place] [address] 01/30/2024 8:40 AM EST Office Visit [facility] 550 [facility] Medical Office [place] 15th Floor [address] [place] [address] Jose Monique MD 550 [facility] [place] 15th Floor, [address] [place] [address] 02/27/2024 12:50 PM EST Office Visit [facility] [address] Floor 4 [address] [place] [address] Henrry Kellie Calixto, OD [address] 4, [address] [facility] [place] [address] 06/19/2024 11:30 AM EDT Appointment [place] [address] [place] [address] 06/19/2024 1:00 PM EDT Appointment [place] [address] [facility] 120 [place] [address] 08/21/2024 1:40 PM EDT Office Visit [facility] [address] 3rd [place] [address] Satya Wright PA [address] [facility] [address] 3rd [place] [address] 09/05/2024 10:30 AM EDT Office Visit [facility] [address] [place] [address] Tatiana Dominguez, LEG ASSEMBLER [address] [place] [address] documented as of this encounter Procedures Procedure Name Priority Date/Time Associated Diagnosis Comments VITAMIN D, 25-HYDROXY Routine 05/11/2022 11:15 AM EST Osteoporosis, unspecified osteoporosis type, unspecified pathological fracture presence COMPREHENSIVE METABOLIC PANEL Routine 05/11/2022 11:15 AM EST Osteoporosis, unspecified osteoporosis type, unspecified pathological fracture presence documented in this encounter Results * (ABNORMAL) Comprehensive Metabolic Panel (05/11/2022 11:15 AM EST) [facility] Sodium 140 136 - 145 mmol/L LAB CHEMISTRY METHOD 05/11/2022 4:50 PM EST [facility] Potassium 4.1 3.5 - 5.1 mmol/L LAB CHEMISTRY METHOD 05/11/2022 4:50 PM EST [facility] Chloride 100 98 - 107 mmol/L LAB CHEMISTRY METHOD 05/11/2022 4:50 PM EST [facility] Carbon Dioxide Level 29 23 - 29 mmol/L LAB CHEMISTRY METHOD 05/11/2022 4:50 PM EST [facility] Calcium Level Total 9.5 8.6 - 10.3 mg/dL LAB CHEMISTRY METHOD 05/11/2022 4:50 PM EST [facility] Blood Urea Nitrogen 13 7 - 25 mg/dL LAB CHEMISTRY METHOD 05/11/2022 4:50 PM EST [facility] Creatinine 0.59(L) 0.60 - 1.20 mg/dL LAB CHEMISTRY METHOD 05/11/2022 4:50 PM EST [facility] Glucose 74 70 - 105 mg/dL LAB CHEMISTRY METHOD 05/11/2022 4:50 PM EST [facility] Comment: Random Glucose* Diabetes is diagnosed at blood glucose of greater than or equal to 200 mg/dL Fasting Glucose* Normal: less than 100 mg/dL Prediabetes: 100 mg/dl to 125 mg/dL Diabetes: 126 mg/dL or higher *ADA guidelines Protein Total 6.9 6.4 - 8.9 gm/dL LAB CHEMISTRY METHOD 05/11/2022 4:50 PM EST [facility] Albumin Level 4.4 3.5 - 5.7 gm/dL LAB CHEMISTRY METHOD 05/11/2022 4:50 PM EST [facility] Alkaline Phosphatase 52 34 - 104 unit/L LAB CHEMISTRY METHOD 05/11/2022 4:50 PM EST [facility] Alanine Aminotransferase 74(H) 7 - 52 unit/L LAB CHEMISTRY METHOD 05/11/2022 4:50 PM EST [facility] Aspartate Aminotransferase 46(H) 13 - 39 unit/L LAB CHEMISTRY METHOD 05/11/2022 4:50 PM EST [facility] Total Bilirubin 0.5 0.3 - 1.0 mg/dL LAB CHEMISTRY METHOD 05/11/2022 4:50 PM EST [facility] Anion Gap 11 2 - 11 mmol/L LAB CHEMISTRY METHOD 05/11/2022 4:50 PM EST [facility] Calculated Osmolality 279 275 - 295 mOsm/kg LAB CHEMISTRY METHOD 05/11/2022 4:50 PM EST [facility] U:C 22(H) 7 - 21 LAB CHEMISTRY METHOD 05/11/2022 4:50 PM EST [facility] Estimated GFR 89 >=60 mL/min/1 .73m2 LAB CHEMISTRY METHOD 05/11/2022 4:50 PM EST [facility] Comment: The eGFR is calculated [...] 1. Based on review of evidence, the [facility] Clinical [facility] [place] made the decision to stop reporting eGFR by race effective 09/03/2020. Blood Venous blood specimen / Unknown Venipuncture / Unknown 05/11/2022 11:15 AM EST 05/11/2022 11:15 AM EST Apple Lux MD LAB BLOOD O RDERABLES [facility] [address] [place] [address] * Vitamin D 25-Hydroxy (05/11/2022 11:15 AM EST) 25-OH Vitamin D Total 67 >=30 ng/mL LAB CHEMISTRY METHOD 05/11/2022 5:23 PM EST [facility] Comment: Vitamin D, 25-Hydroxy 25(OH) Vitamin D Concentration range (ng/mL) <= 20 Deficient 21-29 Insufficient >= 30 Sufficient Based on Endocrine Society guidelines Blood Venous blood specimen / Unknown Venipuncture / Unknown 05/11/2022 11:15 AM EST 05/11/2022 11:15 AM EST Apple Lux MD LAB BLOOD O RDERABLES [facility] [address] [place] [address] documented in this encounter Visit Diagnoses Diagnosis Osteoporosis, unspecified osteoporosis type, unspecified pathological fracture presence documented in this encounter Additional Health Concerns Assessment Noted Time A fall risk assessment has been complete d for the patient 04/19/2022 3:06 PM EST documented as of this encounter
--- OUTSIDE RECORDS SUMMARY | 2023-11-14 01:06 | XMS_ITS | Encounter Summary ---
Author Organization [facility] Address [address], [place], [place] [address] Phone Care Team Providers Care Technical Specialist Cytogenetics Name Role Phone Unavailable Primary Care Provider Unavailabl e Encounter Details Date Type Department Care Team (Late Contact Info) Description 05/27/2022 11:15 AM EST Lab [facility] [address] [place] [address] Elevated LFTs Social History Tobacco Use Types Packs/Day Years [...] EDT Procedure Visit [facility] [address] [facility] Medical Office [place] Floor 9 [place] [address] Katie Joens, LISA 01/06/2024 2:00 PM EDT Appointment [facility] [address] [place] [address] 01/09/2024 2:00 PM EDT Office Visit [facility] [address] [facility] Medical Office [place] 19th Floor [address] [place] [address] Radha Coker MD 550 [place] [address] 01/10/2024 8:30 AM EDT Office Visit [facility] [address] [place] [address] Vandana, Sydnee Ndiaye, [address] [facility] [place] [address] 01/11/2024 10:00 AM EDT Office Visit [facility] - [facility]NT & [facility]ial Plastic Surgery [address] [facility] 707 [place] [address] Kat Rico PA [address] [place] [address] 01/20/2024 11:45 AM EDT Clinical Support [facility] 5[address] [place] [address] Maria Eugenia Lucero, [facility] [address] [place] [address] 01/30/2024 8:40 AM EST Office Visit [facility] [address] [facility] Medical Office [place] 15th Floor [address] [place] [address] Jose Monique MD 550 [facility] Office [place] 15th Floor, [address] [place] [address] 02/27/2024 12:50 PM EST Office Visit [facility] [address] [facility] [address] Floor 4 [address] [place] [address] Kellie Bowser, OD [address], [address] [facility] [place] [address] 06/19/2024 11:30 AM EDT Appointment [place] [address] [place] [address] 06/19/2024 1:00 PM EDT Appointment [place] [address] [address] 08/21/2024 1:40 PM EDT Office Visit [facility] at [address] [place] [address] NE 3rd [place] [address] Satya Wright PA [address] [facility] [address] 3rd [place] [address] 09/05/2024 10:30 AM EDT Office Visit [facility] [address] [place] [address] Tatiana Dominguez, KASH [address] [address] documented as of this encounter Procedures Procedure Name Priority Date/Time Associated Diagnosis Comments COMPREHENSIVE METABOLIC PANEL Routine 05/27/2022 11:09 AM EST Elevated LFTs documented in this encounter Results * (ABNORMAL) Comprehensive metabolic panel (05/27/2022 11:09 AM EST) Sodium 141 136 - 145 mmol/L LAB CHEMISTRY METHOD 05/27/2022 4:55 PM EST [facility] Potassium 4.1 3.5 - 5.1 mmol/L LAB CHEMISTRY METHOD 05/27/2022 4:55 PM EST [facility] Chloride 102 98 - 107 mmol/L LAB CHEMISTRY METHOD 05/27/2022 4:55 PM EST [facility] Carbon Dioxide Level 26 23 - 29 mmol/L LAB CHEMISTRY METHOD 05/27/2022 4:55 PM EST [facility] Calcium Level Total 9.4 8.6 - 10.3 mg/dL LAB CHEMISTRY METHOD 05/27/2022 4:55 PM EST [facility] Blood Urea Nitrogen 12 7 - 25 mg/dL LAB CHEMISTRY METHOD 05/27/2022 4:55 PM EST [facility] Creatinine 0.63 0.60 - 1.20 mg/dL LAB CHEMISTRY METHOD 05/27/2022 4:55 PM EST [facility] Glucose 86 70 - 105 mg/dL LAB CHEMISTRY METHOD 05/27/2022 4:55 PM EST [facility] Comment: Random Glucose* Diabetes is diagnosed at blood glucose of greater than or equal to 200 mg/dL Fasting Glucose* Normal: less than 100 mg/dL Prediabetes: 100 mg/dl to 125 mg/dL Diabetes: 126 mg/dL or higher *ADA guidelines Protein Total 6.9 6.4 - 8.9 gm/dL LAB CHEMISTRY METHOD 05/27/2022 4:55 PM EST [facility] Albumin Level 4.4 3.5 - 5.7 gm/dL LAB CHEMISTRY METHOD 05/27/2022 4:55 PM EST [facility] Alkaline Phosphatase 50 34 - 104 unit/L LAB CHEMISTRY METHOD 05/27/2022 4:55 PM EST [facility] Alanine Aminotransferase 46 7 - 52 unit/L LAB CHEMISTRY METHOD 05/27/2022 4:55 PM EST [facility] Aspartate Aminotransferase 37 13 - 39 unit/L LAB CHEMISTRY METHOD 05/27/2022 4:55 PM EST [facility] Total Bilirubin 0.4 0.3 - 1.0 mg/dL LAB CHEMISTRY METHOD 05/27/2022 4:55 PM EST [facility] Anion Gap 13(H) 2 - 11 mmol/L LAB CHEMISTRY METHOD 05/27/2022 4:55 PM EST [facility] Calculated Osmolality 281 275 - 295 mOsm/kg LAB CHEMISTRY METHOD 05/27/2022 4:55 PM EST [facility] U:C 19 7 - 21 LAB CHEMISTRY METHOD 05/27/2022 4:55 PM EST [facility] Estimated GFR 87 >=60 mL/min/1. 73m2 LAB CHEMISTRY METHOD 05/27/2022 4:55 PM EST [facility] Comment: The eGFR is calculated [...] 1. Based on review of evidence, the [facility] Clinical [facility] [place] made the decision to stop reporting eGFR by race effective 09/03/2020. Blood Venous blood specimen / Unknown Venipuncture / Unknown 05/27/2022 11:09 AM EST 05/27/2022 11:09 AM EST Sydnee Ndiaye Style DO LAB BLOOD ORDERABLE S [facility] [address] [place] [address] documented in this encounter Visit Diagnoses Diagnosis Elevated LFTs Other abnormal blood chemistry documented in this encounter Additional Health Concerns Assessment Noted Time A fall risk assessment has been complete d for the patient 05/27/2022 9:57 AM EST documented as of this encounter
--- OUTSIDE RECORDS SUMMARY | 2023-11-14 01:06 | XMS_ITS | Encounter Summary ---
Author Organization [facility] Address [address] [place], [place] [address] Phone Care Team Providers Care Machine Set Up Operator Name Role Phone Unavailable Primary Care Provider Unavailabl e Reason for Visit * Reason Onset Date Comments infusion 05/19/2022 Encounter Details Date Type Department Care Team (Late Contact Info) Description 05/19/2022 Telephone [facility] [phone] Apple Lux MD infusion Social History Tobacco Use Types Packs/Day [...] PM EDT documented as of this encounter Plan of Treatment Upcoming Encounters Date Type Department Care Team (Late st Contact Info) Description 01/04/2024 11:20 AM EDT Procedure Visit [facility] [address] [facility] Medical Office [place] Floor 9 [place] [address] Katie Jones, AUD 01/06/2024 2:00 PM EDT Appointment [facility] [address] [place] [address] 01/09/2024 2:00 PM EDT Office Visit [facility] [address] [facility] Medical Office [place] 19th Floor [address] [place] [address] Radha Coker MD [address] [place] [address] 01/10/2024 8:30 AM EDT Office Visit [facility] - Primary [facility] [address] [place] [address] Vandana, Sydnee Ndiaye, [address] [facility] [place] [address] 01/11/2024 10:00 AM EDT Office Visit [facility] - ENT & Facial Plastic Surgery [address] [place] [address] Kat Rico PA [address] [place] [address] 01/20/2024 11:45 AM EDT Clinical Support [facility] [address] [place] [address] Maria Eugenia Lucero, ORA [address] [place] [address] 01/30/2024 8:40 AM EST Office Visit [facility] [address] [facility] Medical Office [place] 15th Floor [address] [place] [address] Jose Monique MD 550 [facility] Office [place] 15th Floor, [address] [place] [address] 02/27/2024 12:50 PM EST Office Visit [facility] [address] 4 [address] [place] [address] Kellie Bowser, OD [address], [address] [facility] [place] [address] 06/19/2024 11:30 AM EDT Appointment [place] [address] [place] [address] 06/19/2024 1:00 PM EDT Appointment [place] [address] [place] [address] 08/21/2024 1:40 PM EDT Office Visit [facility] [address] 3rd [place] [address] Satya Wright PA [address] [facility] [address] 3rd [place] [address] 09/05/2024 10:30 AM EDT Office Visit [facility] [address] [address] Tatiana Dominguez, KASH [address] [place] [address] documented as of this encounter Visit Diagnoses Not on filedocumented in this encounter Additional Health Concerns Assessment Noted Time A fall risk assessment has been complete d for the patient 04/19/2022 3:06 PM EST documented as of this encounter
--- OUTSIDE RECORDS SUMMARY | 2023-11-14 01:06 | XMS_ITS | Encounter Summary ---
Author Organization [facility] Address [address], [place] [address] Phone Care Team Providers Care Clinical Engineer Name Role Phone Unavailable Primary Care Provider Unavailabl e Reason for Referral * Outpatient Surgery (Routine) - Closed Specialty Diagnoses / Procedures Referred By Farrah shook Referred To Contact Gastroenterology Diagnoses History of colon polyps Procedures Colonoscopy Flexible Polypectomy/Tumor Removal HI UNLISTED PROCEDURE SMALL INTESTINE HI COLONOSCOPY FLX DX W/COLLJ SPEC WHEN PFRMD HI COLONOSCOPY W/BIOPSY SINGLE/MULTIPLE HI COLONOSCOPY FLX W/ENDOSCOPIC MUCOSAL RESECTION HI COLSC FLX WITH DIRECTED SUBMUCOSAL NJX ANY SBST HI COLSC FLEXIBLE W/CONTROL BLEEDING ANY METHOD HI COLSC FLEXIBLE W/TRANSENDOSCOPIC BALLOON DILAT HI SIGMOIDOSCOPY,ABLATE LESN HI COLONOSCOPY W/BIOPSY SINGLE/MULTIPLE HI FECAL MICROBIOTA PREP INSTIL HI PREPARE FECAL MICROBIOTA FOR INSTILLATION HI COLSC FLX W/NDSC US XM RCTM ET AL LMTD&ADJ STRUX HI SIGMOIDOSCOPY FLX NDSC US XM HI COLSC FLX W/RMVL OF TUMOR POLYP LESION SNARE TQ HI COLONOSCOPY FLX WITH ENDOSCOPIC STENT PLACEMENT [facility] [address] [place] [address] [address] [facility] [address] [place] [address] Referral ID Status Reason Start Date Expiration Date Visits Re quested Visits Authorized [id number] Closed 03/11/2022 03/11/2023 1 1 Encounter Details Date Type Department Care Team (Late st Contact Info) Description 03/11/2022 10:30 AM EST Telemedicine [facility] [address] [facility] [address] [place] [address] Walter Love MD [address], [address] [place] [address] History of colon polyps (Primary Dx) Social History Tobacco Use Types [...] PM EST documented as of this encounter Progress Notes * Walter Love MD - 03/11/2022 10:30 AM EST Subjective Patient ID: Gianna Infante is a 76 y.o. female. HPI PMH HTN Osteoporosis Bilat TKR Ms. Infante is a pleasant 76-year-old female that comes to for the need for a repeat colonoscopy due to a personal history of colon polyps seen on every colonoscopy since 2007. She denies any significant changes in her bowel habits except for the excretion of the mucus-like material that primarily occurs only in the a.m. She ate does use some flaxseed but is not on a fiber supplement. She denies anyfamily history of colon cancer Review of Systems Objective Physical Exam Assessment/Plan There are no diagnoses linked to this encounter. Very pleasant 76-year-old female. I advised for her to use Metamucil as a supplement to hopefully further congeal her stools. She isn't describing incontinence. She does require repeat colonoscopy and I have put in the order. We did discuss the colonoscopy. All other questions were answered. This is a telehealth visit that was performed with the originating site at patient's home and the distant site at [facility] clinic. Verbal consent to participate in video visit was obtained. This particular visit occurred during the 2019 COVID19 pandemic. I discussed with the patient the nature of our telehealth visits, that: 1. I would evaluate the patient and recommend diagnostics and treatments based on my assessment 2. Our sessions are not being recorded and that personal health information is protected 3. Our team would provide follow up care in person if/when the patient needs it. This note was dictated with [employer] dictation software. Please expect the presence of software translation errors. documented in this encounter Plan of Treatment Upcoming Encounters Date Type Department Care Team (Late st Contact Info) Description 01/04/2024 11:20 AM EDT Procedure Visit [facility] [address] [facility] Medical Office [place] Floor 9 [place] [address] Katie Jones AUD 01/06/2024 2:00 PM EDT Appointment [facility] [address] [place] [address] 01/09/2024 2:00 PM EDT Office Visit [facility] [address] [facility] Medical Office [place] 19th Floor [address] [place] [address] Radha Coker MD [address] [place] [address] 01/10/2024 8:30 AM EDT Office Visit [facility] [address] [place] [address] Sydnee Ross, [address] [facility] [place] [address] 01/11/2024 10:00 AM EDT Office Visit [facility] Surgery [address] [place] [address] Kat Rico PA [address] [place] [address] 01/20/2024 11:45 AM EDT Clinical Support [facility] [address] [facility] [place] [address] Maria Eugenia Lucero, LAC [address] [place] [address] 01/30/2024 8:40 AM EST Office Visit [facility] [address] [facility] Medical Office [place] 15th Floor [address] [place] [address] Jose Monique MD 550 [facility] [place] 15th Floor, [address] [place] [address] 02/27/2024 12:50 PM EST [facility] Visit [facility] [address] [facility] Floor 4 [address] [place] [address] Kellie Bowser, OD [address] [facility] [address] 4, [address] [facility] [place] [address] 06/19/2024 11:30 AM EDT Appointment [facility] [address] [place] [address] 06/19/2024 1:00 PM EDT Appointment [facility] [address] [place] [address] 08/21/2024 1:40 PM EDT Office Visit [facility] [address] [facility] [address] [facility] [address] 3rd [place] [address] Satya Wright PA [address] [facility] [address] 3rd [place] [address] 09/05/2024 10:30 AM EDT Office Visit [facility] [address] [place], [place] [phone] Tatiana Dominguez NP [address] [place], [place] [id number] documented as of this encounter Results * Colonoscopy Flexible Polypectomy/Tumor Removal (05/19/2022 3:12 PM EST) Anatomical Region Laterality Modality Endoscopy 05/19/2022 2:43 PM EST Narrative 05/19/2022 3:15 PM EST (ASC KASSANDRA B) [facility] GI Patient Name: Gianna Infante , ? Procedure Date: 05/19/2022 2:43 PM ? Date of : 1945 ?Admit Type: Ambulatory Age: 76 ? Gender: Female Note Status: Finalized ?Attending MD: Gareth Love MD Patient Location: [id number] ? Instrument Name: [id number] Number of Addenda: 0 Procedure Date: ?05/19/2022 2:43:17 PM Procedure: ? Colonoscopy Indications: ? High risk colon cancer surveillance: Personal history ? of colonic polyps Providers: ? F. Alcides Love MD (Doctor) Referring MD: ?Sydnee Ross [...] saturations were monitored continuously. The ? Colonoscope [id number] was introduced through ? the anus and [...] Procedure Code(s): ? --- Professional --- ? 57293, Colonoscopy, flexible; with biopsy, single or ? multiple Diagnosis Code(s): ? --- Professional --- ? Z86.010, Personal history of colonic polyps ? D12.8, Benign neoplasm of rectum ? K57.30, Diverticulosis of large intestine without ? perforation or abscess without bleeding CPT copyright 2021 [employer]. All rights reserved. The codes documented in this report are preliminary and upon unit clerk review may be revised to meet current [...] Love MD - 05/19/2022 (ASC KASSANDRA B) [facility] GI Patient Name: Gianna Infante , Procedure Date: 05/19/2022 2:43 PM Date of : 1945 Admit Type: Ambulatory Age: 76 Gender: Female Note Status: Finalized Attending MD: Gareth Love MD Patient Location: [address] [place] [address] Instrument Name: [id number] Number of Addenda: 0 Procedure Date: 05/19/2022 [...] oxygen saturations were monitored continuously. The Colonoscope [id number] was introducedthrough the anus and advanced to [...] your procedure. Procedure Code(s): --- Professional --- 80843, Colonoscopy, flexible; with biopsy, singleor multiple Diagnosis Code(s): --- Professional --- Z86.010, Personal history of colonic polyps D12.8, Benign neoplasm of rectum K57.30, Diverticulosis of large intestine without perforation or abscess without bleeding CPT copyright 2020 [employer]. All rights reserved. The codes documented in this report are preliminary and upon unit clerk reviewmay be revised to meet current compliance [...] 3:10:34 PM Walter Love MD ENDOSCOPY PROCE NICOLETTE ORDERABLES documented in this encounter Visit Diagnoses Diagnosis History of colon polyps- Primary History of colon polyps documented in this encounter Additional Health Concerns Assessment Noted Time A fall risk assessment has been complete d for the patient 02/17/2022 8:58 AM EST documented as of this encounter
--- OUTSIDE RECORDS SUMMARY | 2023-11-14 01:06 | XMS_ITS | Encounter Summary ---
Author Organization [facility] Address [address] [place] [address], [place] [address] Phone Care Team Providers Care Relay Tester Name Role Phone Unavailable Primary Care Provider Unavailabl e Encounter Details Date Type Department Care Team (Late st Contact Info) Description 05/12/2022 Orders Only [address] Medical Office [place] 19th Floor [address] [place] [address] Apple Lux MD Osteoporosis, unspecified osteoporosis type, unspecified pathological fracture [...] EDT Procedure Visit [facility] [address] [facility] Medical Office [place] Floor 9 [place] [phone] Robert Katie RamaLISA 01/06/2024 2:00 PM EDT Appointment [facility] [address] [place] [address] 01/09/2024 2:00 PM EDT Office Visit [facility] [address] [facility] Medical Office [place] 19th [address] [place] [address] Radha Coker MD [address] [place] [address] 01/10/2024 8:30 AM EDT Office Visit [facility] - Primary [facility] [address] [place] [address] Vandana, Sydnee Ndiaye, [address] [facility] [place] [address] 01/11/2024 10:00 AM EDT Office Visit [facility] - ENT & Facial Plastic Surgery [address] [facility] [address] [place] [address] Kat Rico PA [address] [place] [address] 01/20/2024 11:45 AM EDT Clinical Support [facility] [address] [place] [address] Maria Eugenia Lucero, ORA [address] [place] [address] 01/30/2024 8:40 AM EST Office Visit [facility] [address] [facility] Medical Office [place] 15th [address] [place] [address] Jose Monique MD 550 [facility] Office [place] 15th Floor, [address] [place] [address] 02/27/2024 12:50 PM EST Office Visit [facility] [address] [place] [address]92-[address] Kellie Bowser, OD [address], [address] [facility] [place] [address] 06/19/2024 11:30 AM EDT Appointment [place] [address] [address] 06/19/2024 1:00 PM EDT Appointment [place] [address] [address] 08/21/2024 1:40 PM EDT Office [facility] [address] 3rd [place] [address] Satya Wright PA [address] [facility] [address] 3rd [place] [address] 09/05/2024 10:30 AM EDT Office Visit [facility] [address] [place] [address] Tatiana Dominguez, [employer]AN[employer] ASS[employer]IATE TELLER [address] [place] [address] documented as of this encounter Visit Diagnoses Diagnosis Osteoporosis, unspecified osteoporosis type, unspecified pathological fracture presence- Primary documented in this encounter Additional Health Concerns Assessment Noted Time A fall risk assessment has been complete d for the patient 04/19/2022 3:06 PM EST documented as of this encounter
--- OUTSIDE RECORDS SUMMARY | 2023-11-14 01:06 | XMS_ITS | Encounter Summary ---
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 Name Role Phone Unavailable Primary Care Provider Unavailabl e Reason for Visit * Reason Comments Osteoporosis * Consultation (Routine) - Closed Specialty Diagnoses / Procedures Referred By Farrah t Referred To Contact Endocrinology Diagnoses Osteoporosis, unspecified osteoporosis type, unspecified pathological fracture presence Procedures ID OFFICE/OUTPATIENT [facility] 60-74 MINUTES Style, Sydnee Ndiaye, DO [address] [facility] [address] [facility] [place] [address] Referral ID Status Reason Start Date Expiration Date V isits Requested Visits Authorized [id number] Closed Specialty Services Required 02/17/2022 02/17/2023 1 1 Encounter Details Date Type Department Care Team (Late st Contact Info) Description 04/19/2022 3:10 PM EST Office Visit [facility] [address] [place] [address] Apple Lux MD Osteoporosis, unspecified osteoporosis type, unspecified pathological fracture presence (Primary Dx); History of healed fragility fracture Social History Tobacco Use Types Packs/Day Years Used Date Smoking Tobacco: Never Smokeless Tobacco: Never Tobacco Cessation:Counseling Given: Not Answered Alcohol Use Standard Drinks/Week Comments Yes 1 [...] Sign Reading Time Taken Comments Blood Pressure 131/83 04/19/2022 3:08 PM EST Pulse 72 04/19/2022 3:08 PM EST Temperature 36.6 ??C (97.9 ??F) 04/19/2022 3:08 PM ES T Respiratory Rate 20 04/19/2022 3:08 PM EST Oxygen Saturation - - Inhaled Oxygen Concentration - - Weight 68.5 kg (151 lb) 04/19/2022 3:08 PM EST Height 175.3 cm (5' 9) 04/19/2022 3:08 PM EST Body Mass Index 22.3 04/19/2022 3:08 PM EST documented in this encounter Progress Notes * Apple Lux MD - 04/19/2022 3:10 PM EST Endocrinology Visit Apple Lux MD 04/19/22 ASSESSMENT/PLAN: Gianna Infante is a pleasant 76 y.o. female here for the management of: 1. Osteoporosis, unspecified osteoporosis type, unspecified pathological fracture presence 2. History of healed fragility fracture Has a history of osteoporosis with prior fragility fracture of T11, T12 and wrist fracture. She has previously been treated with 4 years of alendronate, 2 years of Forteo and has received 1 dose of Reclast. She recently completed oral surgery and is undergoing evaluation for periodontal disease and may potentially need additional surgery. Her last Reclast dose was done in April. Today we reviewed osteoporosis the different drugs that she has a used to treat osteoporosis and recommendation for ongoing therapy with Reclast after her evaluation with her stage builder for total of 3 years and then have a drug holiday. Plan: - Once completion oral surgeries will check Vitamin D and BMP for planned zoledronic acid - Dexa 05/2023 - Exclude secondary causes - Evaluate if she is getting adequate calcium from her diet, provided patient with list of foods, continue vitamin D supplementation - Weight-bearing exercises important for bone density. Discussed that walking counts as a weight-bearing exercise, while biking and swimming do not provide weight-bearing activity. Also discussed that exercises that strengthens the core and reduces her risk of fall. - Ambulatory referral to Endocrinology - Vitamin D 25-Hydroxy; Future - Comprehensive Metabolic Panel; Future - Endocrinology Follow Up Appointment Request Follow up providers: Me; Visit Mode: In-person; Future Follow up in 1 year Apple Lux MD This note was dictated using voice recognition software, please excuse and be aware of potential for typographical errors CC: evaluation and management of osteoporosis HPI: Gianna Infante is a 76 y.o. female with PMH of osteoporosis with prior fracture, hyperlipidemia, hypertension, GERD, here for osteoporosis. Previously seen at [facility] Dr. Alvarez 05/11/2021: telemedicine visit seen for osteoporosis andT12 compression fracture. Fracture occurred with minimal pulling movement. Has previously been treated with 4 years of alendronate, fracture occurred and then she switched to Forteo and has completed2 years. Last BMD by DXA 01/[address] [facility]. LS (L1,L2,L4) -3.0 LFN -1.3 LH [...] wrist cracked patella tripped over sidewalk in [place] and concussion Denies bone pain and back [...] implant. And is having referral to perioodontist. ROS: See HPI. 12 point review of systems PHX: Past Medical History Diagnosis Date Anxiety 1951 Arthritis of both hands 06/10/2015 Right > left Cataract 2012 Chronic constipation August 2021 Chronic neck pain 03/26/2022 Colon polyp 2008 Compression fracture of body of thoracic vertebra (CMS/HCC) 02/17/2022 Diverticulosis 03/26/2022 Dry eyes 2012 Dysphagia 10/2021 GERD (gastroesophageal reflux disease) Heart murmur 1989 History of basal cell carcinoma (BCC) 06/18/2011 B/w right eye and nose. 06/18/2011-[facility] History of colon polyps 08/09/2018 [...] 06/27/2008 Thyroid nodule 03/26/2022 Varicose veins 01/13/2011 SURGICAL HISTORY: Past Surgical History: Procedure Laterality Date CATARACT EXTRACTION Bilateral 2020 CE-IOL OU TOTAL KNEE ARTHROPLASTY Bilateral 2017 and 2021 VASCULAR SURGERY 1979?-Varicose vein stripping in both legs MEDICATIONS: Current Outpatient Medications: ascorbic rzeg-xryyzkcd-kab (Emergen-C) 1,000 mg powder effervescent in packet, , Disp: , Rfl: atorvastatin (Lipitor) 40 mg tablet, Take 1 tablet (40 mg) by mouth once daily., Disp: 90 tablet, Rfl: 1 EPINEPHrine (Epipen) 0.3 mg/0.3 mL injection syringe, Inject 0.3 mL (0.3 mg) as directed if needed for anaphylaxis. Call 911 after use., Disp: 1 each, Rfl: 0 ibuprofen 200 mg tablet, , Disp: , Rfl: magnesium 250 mg tablet, , Disp: , Rfl: melatonin 0.5 mg tablet split tablet, , Disp: , Rfl: omeprazole (PriLOSEC) [address] capsule, Take 1 capsule (40 mg) by mouth before breakfast. Do not crush or chew., Disp: 30 capsule, Rfl: 2 polyvinyl alcohol-povidon,PF, (Refresh Classic, PF,) 1.4-0.6 % eye drops in a dropperette, , Disp: , Rfl: vitamin K2 40 mcg tablet, Take by mouth., Disp: , Rfl: zoledronic acid/mannitol-water (RECLAST IV), Infuse into a venous catheter., Disp: , Rfl: ALLERGIES: Allergies Allergen Reactions Bee Venom Protein (Honey Bee) Anaphylaxis Fluoxetine Other reaction(s): Other (See Comments), Other (See Comments) paranoid Paranoid Paranoid Estrogens, Conjugated Hymenoptera Allergenic Extract Serotonin Hallucinations Wasp Venom FHX: Family History Problem Relation Name Age of Onset Alcohol abuse Mother Amaris Infante Arthritis Mother Amaris Infante Depression Mother Amaris Infante Vision loss Mother Amaris Infante Cataracts Mother Amaris Infante Heart disease Father Hieu Infante Hypertension Father Hieu Infante Vision loss Father Hieu Infante Heart attack Father Hieu Infante SHX: Social History Socioeconomic History Marital status: Single [...] file Housing Stability: Not on file Physical Exam: BP 131/83 (BP Location: Left arm, Patient Position: Sitting, BP Cuff Size: Adult) Pulse 72 Temp 36.6 ??C (97.9 ??F) (Temporal) Resp 20 Ht 1.753 m (5' 9) Wt 68.5 kg (151 lb) BMI 22.30 kg/m?? There is no height or weight on file to calculate BMI. General Appearance: well nourished, well developed, no acute distress Skin: no rash, no lesion, no abn pigmentation ENMT: moist mucous membranes Eyes: extraocular movements intact, normal conjunctiva, no lid lag, no exophthalmos Neck: supple, no LAD, no masses Thyroid: no thyromegaly, no nodules CV: normal S1S2, no murmur, no rub, no gallop, no edema, normal DP/PT bilaterally Respiratory: Good breath sounds, clear to auscultation bilaterally, no rales, no wheezes GI/Abdomen: normal bowel sounds, soft, non tender, non-distended, no masses MS: no tenderness along spine, no clubbing, no cyanosis, no muscle atrophy Neuro: Normal gait, normal strength, normal cranial nerves, no tremor Psych: normal mood and affect, alert & oriented X 3 DATA REVIEWED/COMMENTS: Labs: since last visit reviewed. Pertinent findings include: 05/13/2021 Ref Range & Units 11 mo ago Comments U24 Ca Conc mg/dL 9.7 U24 Ca Calc 50.0 - 300.0 mg/24hr 291.0 Ref Range & Units 11 mo ago U24 Creat Conc mg/dL 28 U24 Creat Calc 0.70 - 1.60 g/24hr 0.84 Component Latest Ref Rng & Units 12/31/2021 Sodium 136 - 145 mmol/L 142 Potassium 3.5 - 5.1 mmol/L 4.3 Chloride 98 - 107 mmol/L 106 Carbon Dioxide 23 - 29 mmol/L 26 Calcium Level Total 8.6 - 10.3 mg/dL 9.1 Blood Urea Nitrogen 7 - 25 mg/dL 16 Creatinine 0.60 - 1.20 mg/dL 0.64 Glucose 70 - 105 mg/dL 94 Protein Total 6.4 - 8.9 gm/dL 7.2 Albumin 3.5 - 5.7 gm/dL 4.3 Alkaline Phosphatase 34 - 104 unit/L 71 Alanine Aminotransferase 7 - 52 unit/L 38 Aspartate Aminotransferase 13 - 39 unit/L 34 Bilirubin Total 0.3 - 1.0 mg/dL 0.5 ANION GAP 2 - 11 mmol/L 10 Calculated Osmolality 275 - 295 mOsm/kg 285 U:C 7 - 21 25 (H) Estimated GFR >=60 mL/min/1.73m2 87 Ref Range & Units 6 mo ago Comments Sodium 136 - 145 mmol/L 136 Potassium 3.6 - 5.0 mmol/L 3.5 Low Chloride 98 - 107 mmol/L 100 Carbon Dioxide 23 - 31 mmol/L 27 Anion Gap 4 - 16 mmol/L 9 Anion Gap is a calculation based on the electrolytes in the blood. Anion Gap = (Sodium) - (Chloride + Total CO2) BUN 8 - 23 mg/dL 15 Creatinine 0.60 - 1.10 mg/dL 0.52 Low Glucose 82 - 99 mg/dL 116 High A normal fasting glucose concentration is less than 100 mg/dL. An impaired fasting glucose concentration is 100-125 mg/dL. A provisional diagnosis of diabetes mellitus can be made when a fasting glucose concentration is greater than 125 mg/dL. Calcium 8.6 - 10.3 mg/dL 9.1 Ref Range & Units 6 yr ago Comments VIT D 25OH, Total 20 - 80 ng/mL 39 Radiology: DEXA 02/06/2013 RESULTS: L1-L4 T-score: -2.4. Lowest Hip T-score: -1.7. Please see densitometer printout for BMD values for the various sites measured. DEXA 05/30/2015 LEFT TOTAL HIP Bone Mineral Density (g/cm2): 0.821 g/cm2 LEFT TOTAL HIP T-SCORE: -1.5 Z-score: 0.0 RIGHT TOTAL HIP Bone Mineral [...] -2.5 Major osteoporotic fracture: 20.6 % Hip fracture: 3.5 % DEXA 06/16/2021 (from care everywhere additional data unavailable) FINDINGS: Femoral neck BMD: 0.659 g/cm2 Lowest T-score at a diagnostic region of interest: T-score: -2.2 TYRELL: Lumbar, WHO diagnosis: osteopenia. IMPRESSION Measurements meet WHO criteria for osteoporosis. documented in this encounter Plan of Treatment Upcoming Encounters Date Type Department Care Team (Late st Contact Info) Description 01/04/2024 11:20 AM EDT Procedure Visit [facility] [address] [place] [address] Katie Jones AUD 01/06/2024 2:00 PM EDT Appointment [facility] [address] [place] [address] 01/09/2024 2:00 PM EDT Office Visit [facility] [address] [place] [address] Radha Coker MD [address] [id number] 01/10/2024 8:30 AM EDT Office Visit [facility] [address] [place] [address] Style, Sydnee Ndiaye, DO [address] [facility] [place] [address] 01/11/2024 10:00 AM EDT Office Visit [facility] [address] [place] [address] Kat Rico, PATTIE [address] [place] [address] 01/20/2024 11:45 AM EDT Clinical Support [facility] [address] [place] [address] Maria Eugenia Lucero, ORA [address] [place] [address] 01/30/2024 8:40 AM EST Office Visit [facility] [address] [facility] [address] [place] [address] Jose Monique MD [address] [facility] [address], [address] [place] [address] 02/27/2024 12:50 PM EST Office Visit [facility] [address] [place] [phone] Kellie Bowser, OD [address] [facility] [place] [address] 06/19/2024 11:30 AM EDT Appointment [place] [address] [place] [address] 06/19/2024 1:00 PM EDT Appointment [place] [address] [place] [address] 08/21/2024 1:40 PM EDT Office Visit [facility] at [address] 3rd Floor [place], [place] [id number] Satya Wright PA [address] 3rd [place] [address] 09/05/2024 10:30 AM EDT Office Visit [facility] [address] [place] [address] Tatiana Dominguez NP [address] [place], [place] [id number] documented as of this encounter Results * (ABNORMAL) Comprehensive Metabolic Panel (05/11/2022 11:15 AM EST) Sodium 140 136 - 145 mmol/L LAB CHEMISTRY METHOD 05/11/2022 4:50 PM EST [facility] Potassium 4.1 3.5 - 5.1 mmol/L LAB CHEMISTRY METHOD 05/11/2022 4:50 PM EST [facility] Chloride 100 98 - 107 mmol/L LAB CHEMISTRY METHOD 05/11/2022 4:50 PM EST [facility] Carbon Dioxide Level 29 23 - 29 mmol/L LAB CHEMISTRY METHOD 05/11/2022 4:50 PM EST [facility] Calcium Level Total 9.5 8.6 - 10.3 mg/dL LAB CHEMISTRY METHOD 05/11/2022 4:50 PM EST [facility] Blood Urea Nitrogen 13 7 - 25 mg/dL LAB CHEMISTRY METHOD 05/11/2022 4:50 PM EST [facility] Creatinine 0.59(L) 0.60 - 1.20 mg/dL LAB CHEMISTRY METHOD 05/11/2022 4:50 PM EST [facility] Glucose 74 70 - 105 mg/dL LAB CHEMISTRY METHOD 05/11/2022 4:50 PM EST [facility] Comment: Random Glucose* Diabetes is diagnosed at blood glucose of greater than or equal to 200 mg/dL Fasting Glucose* Normal: less than 100 mg/dL Prediabetes: 100 mg/dl to 125 mg/dL Diabetes: 126 mg/dL or higher *ADA guidelines Protein Total 6.9 6.4 - 8.9 gm/dL LAB CHEMISTRY METHOD 05/11/2022 4:50 PM EST [facility] Albumin Level 4.4 3.5 - 5.7 gm/dL LAB CHEMISTRY METHOD 05/11/2022 4:50 PM EST [facility] Alkaline Phosphatase 52 34 - 104 unit/L LAB CHEMISTRY METHOD 05/11/2022 4:50 PM EST [facility] Alanine Aminotransferase 74(H) 7 - 52 unit/L LAB CHEMISTRY METHOD 05/11/2022 4:50 PM EST [facility] Aspartate Aminotransferase 46(H) 13 - 39 unit/L LAB CHEMISTRY METHOD 05/11/2022 4:50 PM EST [facility] Total Bilirubin 0.5 0.3 - 1.0 mg/dL LAB CHEMISTRY METHOD 05/11/2022 4:50 PM EST [facility] Anion Gap 11 2 - 11 mmol/L LAB CHEMISTRY METHOD 05/11/2022 4:50 PM EST [facility] Calculated Osmolality 279 275 - 295 mOsm/kg LAB CHEMISTRY METHOD 05/11/2022 4:50 PM EST [facility] U:C 22(H) 7 - 21 LAB CHEMISTRY METHOD 05/11/2022 4:50 PM EST [facility] Estimated GFR 89 >=60 mL/min/1 .73m2 LAB CHEMISTRY METHOD 05/11/2022 4:50 PM EST [facility] Comment: The eGFR is [...] 1. Based on review of evidence, the [facility] Clinical Practice [employer] made the decision to stop reporting eGFR by race effective 09/03/2020. Blood Venous blood specimen / Unknown Venipuncture / Unknown 05/11/2022 11:15 AM EST 05/11/2022 11:15 AM EST Apple Lxu MD LAB BLOOD O RDERABLES [facility] [address] [place] [address] * Vitamin D 25-Hydroxy (05/11/2022 11:15 AM EST) 25-OH Vitamin D Total 67 >=30 ng/mL LAB CHEMISTRY METHOD 05/11/2022 5:23 PM EST [facility] Comment: Vitamin D, 25-Hydroxy 25(OH) Vitamin D Concentration range (ng/mL) <= 20 Deficient 21-29 Insufficient >= 30 Sufficient Based on Endocrine Society guidelines Blood Venous blood specimen / Unknown Venipuncture / Unknown 05/11/2022 11:15 AM EST 05/11/2022 11:15 AM EST Apple Lux MD LAB BLOOD O RDBLEÉN [facility] [address] [place] [address] documented in this encounter Visit Diagnoses Diagnosis Osteoporosis, unspecified osteoporosis type, unspecified pathological fracture presence- Primary History of healed fragility fracture documented in this encounter Additional Health Concerns Assessment Noted Time A fall risk assessment has been complete d for the patient 04/19/2022 3:06 PM EST documented as of this encounter
--- OUTSIDE RECORDS SUMMARY | 2023-11-14 01:06 | XMS_ITS | Encounter Summary ---
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 Role Phone Unavailable Primary Care Provider Unavailabl e Reason for Visit * Reason Comments New Patient Visit Dysphagia, unable to swallow when laying flat * Consultation (Routine) - Closed Specialty Diagnoses / Procedures Referred By Farrah shook Referred To Contact Otolaryngology Diagnoses Dysphagia, unspecified type Procedures AR OFFICE/OUTPATIENT NEW HIGH MDM 60-74 MINUTES Style, Sydnee Ndiaye, DO [address] [facility] [place] [address] Referral ID Status Reason Start Date Expiration Date V isits Requested Visits Authorized [id number] Closed Specialty Services Required 03/26/2022 03/26/2023 1 1 Encounter Details Date Type Department Care Team (Late st Contact Info) Description 04/06/2022 2:00 PM EST Office Visit [facility] [address] [facility] [place] [address] [place] [address] Lo Torres, KASH [address] [facility] [place], [place] [address] [place] [address] Laryngopharyngeal reflux (Primary Dx); Dysphagia, unspecified type Social History Tobacco Use Types [...] Sign Reading Time Taken Comments Blood Pressure 154/91 04/06/2022 2:09 PM EST Pulse 66 04/06/2022 2:06 PM EST Temperature 36.6 ??C (97.8 ??F) 04/06/2022 2:06 PM ES T Respiratory Rate 18 04/06/2022 2:06 PM EST Oxygen Saturation 97% 04/06/2022 2:06 PM EST Inhaled Oxygen Concentration - - Weight 68 kg (150 lb) 04/06/2022 2:06 PM EST Height 175.3 cm (5' 9) 04/06/2022 2:06 PM EST Body Mass Index 22.15 04/06/2022 2:06 PM EST documented in this encounter Progress Notes * Lo Torres, CAKE MAKER - 04/06/2022 2:00 PM EST Images from the original note were not included. Chief Complaint Patient presents with New Patient Visit Dysphagia, unable to swallow when laying flat History of Present Illness: 76 year old female with complaints globus and dysphagia only when laying flat. She reports first noticing symptoms 1 year ago that have been progressive. She notes the symptoms only when laying flat on her back and describes the sensation as something pushing on her larynx, possible airway obstruction and thick drainage. Recently she was seen at her dentist and had difficulty with a crown placement because she was on her back and felt like she was choking on the suction/water irrigation. She was seen by her PCP who ordered a thyroid US revealing only small thyroid nodules, largest 1.1 cm withno recommendations for FNAB. She denies any dysphagia in an upright position, throat pain or change in voice. Here today for further evaluation. ECOG 1 PMH- high cholesterol, osteoporosis, arthritis- currently in PT Never smoker and 1 glass of wine nightly Past Medical History Diagnosis Date Anxiety 1951 Arthritis of both hands 06/10/2015 Right > left Cataract 2012 Chronic constipation August 2021 Chronic neck pain 03/26/2022 Colon polyp 2007 Compression fracture of body of thoracic vertebra (CMS/HCC) 02/17/2022 Diverticulosis 03/26/2022 Dry eyes 2012 Dysphagia 10/2021 GERD (gastroesophageal reflux disease) Heart murmur 1989 History of basal cell carcinoma (BCC) 06/18/2011 B/w right eye and nose. 06/18/2011-[facility] History of colon polyps 08/09/2018 Hypertension [...] Hieu Infante Heart attack Father Hieu Infante Current Outpatient Medications: ascorbic vqbx-sremctza-rfx (Emergen-C) 1,000 mg powder effervescent in packet, , Disp: , Rfl: atorvastatin (Lipitor) 40 mg tablet, Take 1 tablet (40 mg) by mouth once daily., Disp: 90 tablet, Rfl: 1 ibuprofen 200 mg tablet, , Disp: , Rfl: magnesium 250 mg tablet, , Disp: , Rfl: melatonin 0.5 mg tablet split tablet, , Disp: , Rfl: polyvinyl alcohol-povidon,PF, (Refresh Classic, PF,) 1.4-0.6 % eye drops in a dropperette, , Disp: , Rfl: vitamin K2 40 mcg tablet, Take by mouth., Disp: , Rfl: zoledronic acid/mannitol-water (RECLAST IV), Infuse into a venous catheter., Disp: , Rfl: EPINEPHrine (Epipen) 0.3 mg/0.3 mL injection syringe, Inject 0.3 mL (0.3 mg) as directed if needed for anaphylaxis. Call 911 after use., Disp: 1 each, Rfl: 0 Allergies Allergen Reactions Bee Venom Protein (Honey Bee) Anaphylaxis Fluoxetine Other reaction(s): Other (See Comments), Other (See Comments) paranoid Paranoid Paranoid Estrogens, Conjugated Hymenoptera Allergenic Extract Serotonin Hallucinations Wasp Venom Review of Systems: Constitutional: Negative ENT: Negative except per HPI Cardiovascular: Negative Respiratory: Negative Physical Exam: BP (!) 154/91 Pulse 66 Temp 36.6 ??C (97.8 ??F) (Temporal) Resp 18 Ht 1.753 m (5' 9) Wt 68 kg (150 lb) SpO2 97% BMI 22.15 kg/m?? General: Alert and oriented, No acute distress, Well appearing, well nourished Eyes: Extraocular movements are intact, Normal Conjunctiva, No exophthalmos Head: Normocephalic Face: No palpable step offs. Skin is without visible or palpable lesions or masses. Ears: Left - External pinna without visible or palpable lesions or masses. External auditory canal clear.Tympanic membrane clear with bony landmarks. Right - External pinna without visible or palpable lesions or masses. External auditory canal clear. Tympanic membrane clear with bony landmarks. Nose: External skin without visible lesions. External pyramid symmetric. Bilateral nasal cavities patent. Nasal mucosa moist. Septum straight. Sinuses: No palpable abnormalities or tenderness. Oral Cavity: Lips- Upper and lower pink, moist, no visible lesions Teeth- Intact, Good condition Mucosa- [place], moist, no visible lesions Gingiva- [place], moist and no visible lesions Tongue- No masses or lesions. Normal mobility Hard palate- Intact, symmetric and no visible lesions Oropharynx: Soft palate- Intact, symmetric and no visible lesions Uvula- Single, no visible lesions Tonsils- Bilateral symmetric, not enlarged or erythematous. No visible or palpable lesions Posterior pharyngeal wall- [place], moist and no visible lesions Salivary Glands: Parotid- Bilateral with no palpable masses. Submandibular- Bilateral with no palpable masses. Sublingual- Bilateral with no palpable masses. Neck: Supple, non-tender and no lymphadenopathy Trachea- Midline with palpable landmarks Thyroid- Smooth, no enlargement, no palpable masses Respiratory: Respirations are non-labored, symmetrical chest wall expansion Cardiovascular: Normal peripheral perfusion, No edema Musculoskeletal: Normal gait, Normal range of motion Neurologic: Alert, oriented, cranial nerves II-XII grossly intact Psychiatric: Cooperative, Appropriate mood and affect PROCEDURE: Diagnostic flexible fiber optic laryngoscopy (95473) INDICATION FOR PROCEDURE: to visualize larynx PROCEDURE DETAIL: Following verbal consent, the patient's nasal cavities were sprayed with topical anesthetic and decongestant, vial number #[id number]. A flexible fiber optic endoscope was inserted into the nasal cavity andpassed along the nasal floor to examine the larynx and hypopharynx. Procedure performed by Dominic Torres NP. Anterior nasal mucosa: Moist, pink, and healthy. The nasal cavity was clear of any purulence or polyposis. Nasopharynx: No masses or lesions present, Eustachian tube orifices clear Posterior oropharynx: Tongue base and vallecula symmetric and clear, without lesions or masses. Larynx: Vocal cords mobile bilaterally. No lesions or masses noted. Visualized portions of the subglottis are clear. Hypopharynx: Lateral and posterior pharyngeal ham and piriform sinuses are symmetric and clear, without lesions See procedure note for photos. The patient tolerated the exam well. IMAGING: Thyroid US report reviewed in clinic FINDINGS: Right: Measures 4.7 x 1.5 x 1.6 cm. 1. 0.5 cm hypoechoic nodule upper pole right thyroid lobe. 2. 0.7 x 0.5 x 0.6 cm hypoechoic nodule lower pole right thyroid lobe. Isthmus: Measures 0.2 cm. No nodules. Left: Measures 4.8 x 1.5 x 1.3 cm. 1. Complex 0.6 x 0.7 x 0.5 cm nodule upper pole left thyroid lobe with a central cystic area. 2. 1.1 x 0.6 x 1 cm complex nodule lower pole left thyroid lobe. 3. 0.4 x 0.4 x 0.4 cm rim calcified nodule lower pole left thyroid lobe. 4. Adjacent 0.8 x 0.5 x 0.7 cm nodule lower pole left thyroid lobe likely a colloid cyst. IMPRESSION: Several bilateral thyroid nodules with the largest measuring 1.1 cm within the lower pole left thyroid lobe. These do not meet criteria for FNA at this time. LABS/PATHOLOGY: None Assessment and Plan: 1. Dysphagia, unspecified type - Ambulatory referral to ENT 2. Laryngopharyngeal reflux Long discussion that her symptoms are likely more related to globus that is worsened by laying flat. Would recommend re-positioning during her dental procedure Will start PPI for her reflux and supportive measures to reduce throat cleaning FU PRN Patient seen and examined independently by CAKE MAKER at this visit. Note and plan reviewed by Attending MD, who concurs unless otherwise stated. JUVENTINO Martin [facility] Otolaryngology Head & Neck Surgery [facility] documented in this encounter Plan of Treatment Upcoming Encounters Date Type Department Care Team (Late st Contact Info) Description 01/04/2024 11:20 AM EDT Procedure Visit [facility] [address] [facility] [place] Floor 9 [place] [address] Katie Jones AUD 01/06/2024 2:00 PM EDT Appointment [facility] [address] [place] [address] 01/09/2024 2:00 PM EDT Office Visit [facility] [address] [facility] [place] [address] [place] [address] Radha Coker MD [address] [place] [address] 01/10/2024 8:30 AM EDT Office Visit [facility] - Primary [facility] [address] [place] [address] Style, Sydnee Ndiaye, [address] [facility] [place] [address] 01/11/2024 10:00 AM EDT Office Visit [facility] - ENT & Facial Plastic Surgery [address] [facility] [address] [place] [address] Kat Rico, PATTIE [address] [address] 01/20/2024 11:45 AM EDT Clinical Support [facility] [address] [place] [address] Maria Eugenia Lucero, ORA [address] [place], [place] [id number] 01/30/2024 8:40 AM EST Office Visit [facility] [address] [facility] [address] [place] 15[address] [place] [address] Jose Monique MD [address] [facility] Medical Office [place] 15[address], [address] [place] [address] 02/27/2024 12:50 PM EST Office Visit [facility] [address] [place] [phone] [phone] Kellie Bowser, OD [address] [facility] [place] [address] 06/19/2024 11:30 AM EDT Appointment [place] [address] [place] [address] 06/19/2024 1:00 PM EDT Appointment [place] [address] [address] 08/21/2024 1:40 PM EDT Office Visit [facility] [address] 3rd [place] [address] Satya Wright PA [address] [facility] 3rd [place] [address] 09/05/2024 10:30 AM EDT Office Visit [facility] [address] [place] [address] Tatiana Dominguez NP [address] [place] [address] documented as of this encounter Visit Diagnoses Diagnosis Laryngopharyngeal reflux- Primary Acute laryngitis, without mention of obstruction Dysphagia, unspecified type documented in this encounter Additional Health Concerns Assessment Noted Time A fall risk assessment has been complete d for the patient 04/06/2022 2:02 PM EST documented as of this encounter
--- OUTSIDE RECORDS SUMMARY | 2023-11-14 01:06 | XMS_ITS | Encounter Summary ---
Author Organization [facility] Address [address] [place] [address], [place] [address] Phone Care Team Providers Care Sliver Handler Name Role Phone Unavailable Primary Care Provider Unavailabl e Reason for Referral * Consultation (Routine) - Closed Specialty Diagnoses / Procedures Referred By Farrah shook Referred To Contact Otolaryngology Diagnoses Dysphagia, unspecified type Procedures [place] OFFICE/OUTPATIENT [facility] MDM 60-74 MINUTES Sydnee Ross DO [address] [facility] [address] [place] [phone] Referral ID Status Reason Start Date Expiration Date V isits Requested Visits Authorized [id number] Closed Specialty Services Required 03/26/2022 03/26/2023 1 1 Reason for Visit * Reason Comments Follow-up Encounter Details Date Type Department Care Team (Late st Contact Info) Description 03/26/2022 10:30 AM EST Office Visit [facility] [address] [place] [address] Sydnee Ross DO [address] [facility] [address] [place] [phone] Burn of finger, unspecified burn degree, unspecified laterality, subsequent encounter (Primary Dx); Thyroid nodule; Dysphagia, unspecified type; Pancreatic lesion; Exertional dyspnea; Anxiety; Memory deficit; Pulmonary nodule Social History Tobacco Use Types Packs/Day Years Used Date Smoking Tobacco: Never Smokeless Tobacco: Never Tobacco Cessation:Counseling Given: Not Answered Alcohol Use Standard Drinks/Week Comments Yes 1 (1 standard drink = 0.6 oz pur e alcohol) 4 per week average PHQ-2 Answer Date Recorded Patient Health Questionnaire-2 Score 2 03/26/2022 Sex and Gender Information Value Date Recorded [...] suspected to have Coronavirus/COVID-19? No / Unsure 03/26/2022 9:55 AM EST documented as of this encounter Last Filed Vital Signs Vital Sign Reading Time Taken Comments Blood Pressure 138/80 03/26/2022 10:04 AM EST Pulse 72 03/26/2022 10:04 AM EST Temperature 36.6 ??C (97.9 ??F) 03/26/2022 10:[address] Respiratory Rate 16 03/26/2022 10:04 AM EST Oxygen Saturation 100% 03/26/2022 10:04 AM EST Inhaled Oxygen Concentration - - Weight 67.1 kg (148 lb) 03/26/2022 10:04 AM EST Height 172.7 cm (5' 8) 03/26/2022 10:04 AM EST Body Mass Index 22.5 03/26/2022 10:04 AM EST documented in this encounter Progress Notes * Vandana, Sydnee Ndiaye DO - 03/26/2022 10:30 AM EST Subjective Patient ID: Gianna Infante is a 76 y.o. female who presents for Follow-up. HPI Burned her second digit of right hand while cooking for Thanksgiving. Went to urgent care for burn evaluation and tooth pain. Was prescribed amoxicillin and doxycycline. Subsequently felt lightheadedand was instructed to go to the emergency room 03/11/22. Was diagnosed with cellulitis and given course of Bactrim. She was referred to hand surgeon. Completed first course of Bactrim and saw a hand surgeon who administered second course of 7-day Bactrim. Last day is tonight of antibiotics. Was able to see dentist and is planning to have a tooth extraction in March. Was having crown procedure done and while lying flat felt like her throat was closing had difficulty swallowing. Has experienced the same sensation other times when lying flat such as MRI. Did have a thyroid nodule that was found incidentally on a CAT scan. Was supposed to obtain follow-up ultrasound however moved to [place] in the interim. Saw dermatology for history of basal cell carcinoma. Had cryotherapy on several skin lesions. Was able to see ophthalmology and was referred to cornea specialist. Scheduled a colonoscopy for history of colon polyps. Last colonoscopy was 3 years ago, was due July 2021. Records received: Memory impairment: Had MRI which was overall unremarkable and saw cognitive specialist. 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 Patient is currently looking for a therapist. Feels like her memory and anxiety has improved since moving to [place]. Exertional dyspnea: Patient was referred to cardiology for further evaluation and stress test. Cardiac work-up was negative per patient. The sensation has improved as well. Pancreatic lesion, patient underwent endoscopy. She reports that the lesion was deemed benign. History of osteoporosis: Status post bisphosphonates which she failed. Completed 40/2 years. Was referred to endocrine to start Reclast. Pulmonary nodule: Never smoker, seen on CT. Had repeat CT 3 years ago was told benign in did not need to have further follow-up. Review of Systems All other systems reviewed [...] are equal, round, and reactive to light. Neck: Comments: Small mobile nonpainful b/l cervical LAD, no thyromegaly or nodules appreciated Cardiovascular: Rate and Rhythm: Normal rate and [...] edema. Left lower leg: No edema. Skin: Comments: Second digit right hand-no erythema, warmth, pus. Digit is edematous, mild decreased flexion due to swelling Neurological: General: No focal deficit present. Mental Status: She is alert. Psychiatric: Mood and Affect: Mood normal. Behavior: Behavior normal. Judgment: Judgment normal. Assessment/Plan 1. Burn of finger, unspecified burn degree, unspecified laterality, subsequent encounter Status post 3 courses of antibiotics. Although finger slightly edematous it does not appear to be infected. I do not think patient needs another course of antibiotics at this time. Recommend NSAIDs to assist with inflammation. 2. Thyroid nodule Incidental finding on CT at previous [facility] Center. Will obtain thyroid ultrasound for further evaluation - US Head Neck Soft Tissue; Future 3. Dysphagia, unspecified type Patient experiencing dysphagia and choking sensation while lying flat. Although this certainly can be due to anxiety as they have occurred during medical procedures, we will first further investigateother anatomical causes. Refer to ENT for further evaluation. - Ambulatory referral to ENT; Future 4. Pancreatic lesion Per patient this was deemed benign. I recommend that she discuss this with her gastroenterology doctor. 5. Exertional dyspnea Patient reports negative cardiac work-up and stress test. Symptoms have improved since moving to [place]. Patient thinks anxiety could have been playing a role. Normal cardiopulmonary exam today. We will continue to monitor at this time. 6. Anxiety I recommend that patient seek therapist to help manage her anxiety. Sources were given last visit. 7. Memory deficit I have reviewed evaluation from cognitive specialist at her previous health facility. Her MRI was overall unremarkable. Memory deficits were thought to be mostly anxiety related. This was discussed with patient. She feels her memory issues and anxiety have improved since moving to [place]. We will have close follow-up with patient, if memory issues are worsening we will repeat labs in refer to our cognitive clinic here at [facility]. 8. Pulmonary nodule Pulmonary nodule listed on records however I do not have CT report. Patient has CD with records I have asked her to upload CT reports. If she does not have we will request CT report from previous physician. documented in this encounter Plan of Treatment Upcoming Encounters Date Type Department Care Team (Late st Contact Info) Description 01/04/2024 11:20 AM EDT Procedure Visit [facility] [address] [facility] Medical Office [place] Floor 9 [place] [address] Katie Jones AUD 01/06/2024 2:00 PM EDT Appointment [facility] [address] [place] [address] 01/09/2024 2:00 PM EDT Office Visit [facility] [address] [facility] Medical Office [place] 19th [address] [place] [address] Radha Coker MD [address] [place] [address] 01/10/2024 8:30 AM EDT Office Visit [facility] [address] [place] [address] Sydnee Ross DO [address] [facility] [place] [address] 01/11/2024 10:00 AM EDT Office Visit [facility] - ENT & Facial Plastic Surgery [address] [facility] [address] [place] [address] Kat Rico PA [address] [place] [address] 01/20/2024 11:45 AM EDT Clinical Support [facility] [address] [place] [address] Maria Eugenia Lucero [address] [place] [address] 01/30/2024 8:40 AM EST Office Visit [facility] [address] [facility] Medical [facility] [place] 15th [address] [place] [address] Jose Monique MD [address] [facility] Office [place] 15th Floor, [address] [place] [address] 02/27/2024 12:50 PM EST Office Visit [facility] [address] [facility] [address] 4 [address] [place] [phone] Kellie Bowser, OD [address] [facility] [address] [facility] [place] [address] 06/19/2024 11:30 AM EDT Appointment [place] [address] [address] 06/19/2024 1:00 PM EDT Appointment [place] [address] [address] 08/21/2024 1:40 PM EDT Office Visit [facility] at [address] [place] [address] 3rd [place] [address] Satya Wright PA [address] [facility] 3rd [place] [address] 09/05/2024 10:30 AM EDT Office Visit [facility] [address] [place] [address] Tatiana Dominguez, KASH [address] [place] [address] Scheduled Referrals Name Type Priority Associated Diagnoses Orde r Schedule Ambulatory referral to ENT Outpatient Referral Routine Dysphagia, unspecified type Expected: 03/26/2022 (Approximate), Expires: 03/26/2023 documented as of this encounter Results * US Thyroid (04/01/2022 1:20 PM EST) Anatomical Region Laterality Modality Neck Ultrasound 04/02/2022 3:05 PM EST Impressions 04/02/2022 3:12 PM EST Several bilateral thyroid nodules with the largest measuring 1.1 cm within the lower pole left thyroid lobe. These do not meet criteria for FNA at this time. Narrative 04/02/2022 3:12 PM EST EXAM: US THYROID CLINICAL INDICATION: Thyroid nodule, incidental finding on CT. TECHNIQUE: Transverse and longitudinal grayscale and color Doppler images of the neck were obtained. ESRC.3.2.1 COMPARISON: None FINDINGS: Right: Measures 4.7 x 1.5 x [...] left thyroid lobe likely a colloid cyst. Procedure Note Teetee Johnson MD - 04/02/2022 EXAM: US THYROID CLINICAL INDICATION: Thyroid nodule, incidental finding on CT. TECHNIQUE: Transverse and longitudinal grayscale and color Doppler imagesof the neck were obtained. ESRC.3.2.1 COMPARISON: None FINDINGS: Right: Measures 4.7 x 1.5 x 1.6 cm. 1. 0.5 cm hypoechoic nodule upper pole right thyroid lobe. 2. 0.7 x 0.5 x 0.6 cm hypoechoic nodule lower pole right thyroid lobe. Isthmus: Measures 0.2 cm. No nodules. Left: Measures 4.8 x 1.5 x 1.3 cm. 1. Complex 0.6 x 0.7 x 0.5 cm nodule upper pole left thyroid lobe with acentral cystic area. 2. 1.1 x 0.6 x 1 cm complex nodule lower pole left thyroid lobe. 3. 0.4 x 0.4 x 0.4 cm rim calcified nodule lower pole left thyroid lobe. 4. Adjacent 0.8 x 0.5 x 0.7 cm nodule lower pole left thyroid lobe likelya colloid cyst. IMPRESSION: Several bilateral thyroid nodules with the largest measuring 1.1 cm withinthe lower pole left thyroid lobe. These do not meet criteria for FNA atthis time. Sydnee Ndiaye Style DO IMG US PROCEDURES documented in this encounter Visit Diagnoses Diagnosis Burn of finger, unspecified burn degree, unspecified laterality, subsequent encounter- Primary Thyroid nodule Nontoxic uninodular goiter Dysphagia, unspecified type Pancreatic lesion Exertional dyspnea Other dyspnea and respiratory abnormality Anxiety Anxiety state, unspecified Memory deficit Memory loss Pulmonary nodule Other diseases of lung, not elsewhere classified Thyroid nodule Nontoxic uninodular goiter documented in this encounter Additional Health Concerns Assessment Noted Time A fall risk assessment has been complete d for the patient 03/26/2022 10:04 AM EST documented as of this encounter
--- OUTSIDE RECORDS SUMMARY | 2023-11-14 01:06 | XMS_ITS | Encounter Summary ---
Author Organization [facility] Address [address], [place], [place] [address] Phone Care Team Providers Care Plaster Foreman Name Role Phone Unavailable Primary Care Provider Unavailabl e Encounter Details Date Type Department Care Team (Late st Contact Info) Description 04/07/2022 Orders Only [place] [facility] [place] [facility] [address] [place] [address] Marguerite Meyer Chichi Social History Tobacco Use Types Packs/Day Years [...] Procedure Visit [facility] [address] [facility] [place] Floor 9 [place] [phone] Katie Jones, LISA 01/06/2024 2:00 PM EDT Appointment [facility] [address] [place] [address] 01/09/2024 2:00 PM EDT Office Visit [facility] [address] [facility] Ama 19th Floor [address] [place] [address] Radha Coker MD [address] [place] [address] 01/10/2024 8:30 AM EDT Office Visit [facility] [place] - Primary [facility] [address] [place] [address] Sydnee Ross, [address] [facility] [place] - [place] [address] 01/11/2024 10:00 AM EDT Office Visit [facility] - ENT & Facial Plastic Surgery [address] [place] [address] Kat Rico PA [address] [place] [address] 01/20/2024 11:45 AM EDT Clinical Support [facility] [address] [place] [address] Maria Eugenia Lucero, ORA [address] [place] [address] 01/30/2024 8:40 AM EST Office Visit [facility] [address] [facility] Ama 15th Floor [address] [place] [address] Jose Monique MD 550 [facility] Ama 15th Floor, [address] [place] [address] 02/27/2024 12:50 PM EST Office Visit [facility] [address] 4 [address] [place] [address] Kellie Bowser, OD [address], [address] [facility] [place] [address] 06/19/2024 11:30 AM EDT Appointment [facility] [address] [place] [address] 06/19/2024 1:00 PM EDT Appointment [facility] [address] [address] 08/21/2024 1:40 PM EDT Office Visit [facility] at [id number] [facility] [place] 3rd [place] [address] Satya Wright PA [address] [facility] 3rd [place] [address] 09/05/2024 10:30 AM EDT Office Visit [facility] [address] [place] [address] Tatiana Dominguez, KASH [address] [place] [address] documented as of this encounter Visit Diagnoses Not on filedocumented in this encounter Additional Health Concerns Assessment Noted Time A fall risk assessment has been complete d for the patient 04/06/2022 2:02 PM EST documented as of this encounter
--- OUTSIDE RECORDS SUMMARY | 2023-11-14 01:06 | XMS_ITS | Encounter Summary ---
Author Organization [facility] Address [address], [address], [place] [address] Phone Care Team Providers Care Paper Maker Name Role Phone Unavailable Primary Care Provider Unavailabl e Reason for Visit * Reason Onset Date Comments Advice Only 03/16/2022 ADVICE ON E.R. F /U Encounter Details Date Type Department Care Team (Late st Contact Info) Description 03/16/2022 Telephone [facility] [phone] Sydnee Ross, DO [address] [facility] [address] [facility] - Primary Care [place], [place] [id number] Advice Only (ADVICE ON E.R. F/U) Social History Tobacco Use Types Packs/Day Years [...] Procedure Visit [facility] [address] [facility] [place] Floor 9 [place] [address] Katie Jones AUD 01/06/2024 2:00 PM EDT Appointment [facility] [address] [place] [address] 01/09/2024 2:00 PM EDT Office Visit [facility] [address] [facility] [place] 19th Floor [address] [place] [address] Radha Coker MD 550 [place] [address] 01/10/2024 8:30 AM EDT Office Visit [facility] - Primary Care [address] [place] [address] Style, Sydnee Ndiaye DO [address] [facility] [place] [address] 01/11/2024 10:00 AM EDT Office Visit [facility] Surgery [address] [facility] [address] [place] [address] Kat Rico PA [address] [place] [address] 01/20/2024 11:45 AM EDT Clinical Support [facility] [address] [place] [address] Maria Eugenia Lucero LAC [address] [place] [address] 01/30/2024 8:40 AM EST Office Visit [facility] [address] [facility] [place] 15th Floor [address] [place] [address] Jose Monique MD 550 [facility] [place] 15th Floor, [address] [place] [address] 02/27/2024 12:50 PM EST Office Visit [facility] [address] 4 [address] [place] [phone] Kellie Bowser, OD [address], [address] [facility] [place] [address] 06/19/2024 11:30 AM EDT Appointment [place] [address] [facility] [address] [place] [address] 06/19/2024 1:00 PM EDT Appointment [place] [address] [address] 08/21/2024 1:40 PM EDT Office Visit [facility] at [address] [facility] 3rd [place] [address] Satya Wright PA [address] [facility] 3rd [place] [address] 09/05/2024 10:30 AM EDT Office Visit [facility] [address] [place] [address] Tatiana Dominguez, KASH [address] [place] [address] documented as of this encounter Visit Diagnoses Not on filedocumented in this encounter Additional Health Concerns Assessment Noted Time A fall risk assessment has been complete d for the patient 02/17/2022 8:58 AM EST documented as of this encounter
--- OUTSIDE RECORDS SUMMARY | 2023-11-14 01:06 | XMS_ITS | Encounter Summary ---
Author Organization [facility] Address [address] [place], [place], [place] [address] Phone Care Team Providers Care Inspector Machine Parts Name Role Phone Unavailable Primary Care Provider Unavailabl e Encounter Details Date Type Department Care Team (Latest Contact Info) Description 04/01/2022 12:36 PM EST - 04/01/2022 11:59 PM EST Hospital Encounter [facility] [address] [place], [place] [id number] Thyroid nodule Discharge Disposition: DISCHARGED TO HOME OR SELF [...] PM EST documented as of this encounter Medications at Time of Discharge Medication Sig Dispensed Refills Start Date End Date ascorbic awra-nbqtkvqt-jci (Emergen-C) 1,000 mg powder effervescent in packet Take by mouth once daily. 03/28/2019 ibuprofen 200 mg tablet Take by mouth if needed. PRN 03/28/2021 multivit with minerals/lutein (MULTIVITAMIN 50 PLUS ORAL) Take by mouth once daily. 03/28/2022 omega 8-dzz-ood-fish oil 1,000 mg (120 mg-180 mg) capsule Take by mouth once daily. 03/28/2007 polyvinyl alcohol-povidon,PF, (Refresh Classic, PF,) 1.4-0.6 % eye drops in a dropperette 03/28/2019 zoledronic acid/mannitol-water (RECLAST IV) Infuse into a venous catheter Yearly. acetaminophen (Tylenol) 500 mg tablet 09/25/2021 04/06/2022 atorvastatin (Lipitor) 40 mg tablet Take 1 [...] EDT Procedure Visit [facility] [address] [facility] [place] Floor 9 [place] [address] Katie Jones AUD 01/06/2024 2:[address] [facility] [address] [place] [address] 01/09/2024 2:00 PM EDT Office Visit [facility] 550 [facility] [place] 19th Floor [address] [place] [address] Radha Coker MD [address] [place] [address] 01/10/2024 8:30 AM EDT Office Visit [facility] [address] [place] [address] Sydnee Ross DO [address] [facility] [place] [address] 01/11/2024 10:00 AM EDT Office Visit [facility]ial Plastic Surgery [address] [facility] [address] [place] [address] Kat Rico, PA [address] [place] [address] 01/20/2024 11:45 AM EDT Clinical Support [facility] [address] [facility] [place] [address] Maria Eugenia Lucero, ORA [address] [place] [address] 01/30/2024 8:40 AM EST Office Visit [facility] [address] [facility] [place] 15th Floor [address] [place] [address] Jose Monique MD [address] Medical Office [place] 15th Floor, [address] [place] [address] 02/27/2024 12:50 PM EST Office Visit [facility] [address] [facility] 4 [address] [place] [address] Henrry Maciasbecka Kellie Pedro Luis, OD [address], [address] [facility] [place] [address] 06/19/2024 11:30 AM EDT Appointment [place] [address] [place] [address] 06/19/2024 1:00 PM EDT Appointment [place] [address] [facility] [address] [place] [address] 08/21/2024 1:40 PM EDT Office Visit [facility] at [address] [place] [address] NE 3rd [place] [address] Satya Wright PA [address] [facility] [place] 3rd [place] [address] 09/05/2024 10:30 AM EDT Office Visit [facility] [address] [place] [address] Tatiana Dominguez, GROOVER AND STRIPER OPERATOR 12 [facility] [place] [address] documented as of this encounter Procedures Procedure Name Priority Date/Time Associated Diagnosis Comments US THYROID Routine 04/01/2022 1:20 PM EST Thyroid nodule documented in this encounter Results * US Thyroid (04/01/2022 [...] Doppler images of the neck were obtained. [facility].3.2.1 COMPARISON: None FINDINGS: Right: Measures 4.7 x [...] color Doppler imagesof the neck were obtained. [facility].3.2.1 COMPARISON: None FINDINGS: Right: Measures 4.7 x [...] meet criteria for FNA atthis time. Sydnee Ross DO IMG US PROCEDURES documented in this encounter Visit Diagnoses Diagnosis Thyroid nodule Nontoxic uninodular goiter documented in this encounter Additional Health Concerns Assessment Noted Time A fall risk assessment has been complete d for the patient 03/26/2022 10:04 AM EST documented as of this encounter
--- OUTSIDE RECORDS SUMMARY | 2023-11-14 01:06 | XMS_ITS | Encounter Summary ---
Author Organization [facility] Address [address] [place] [address], [place] [address] Phone Care Team Providers Care Sash Sticker Name Role Phone Unavailable Primary Care Provider Unavailabl e Reason for Visit * Reason Comments Pain * Consultation (Routine) - Closed Specialty Diagnoses / Procedures Referred By Farrah t Referred To Contact Orthopaedics Diagnoses Cellulitis of right finger Other specified disorders of teeth and supporting structures Other hyperlipidemia Osbaldo Meyer [address] [place] [address] Referral ID Status Reason Start Date Expiration Date V isits Requested Visits Authorized [id number] Closed Specialty Services Required 03/11/2022 03/11/2023 1 1 Encounter Details Date Type Department Care Team (Late st Contact Info) Description 03/17/2022 8:00 AM EST Office Visit [facility] [address] [place] [address] [place] [address] Aaron Callejas MD [address] [place] [address] [place] [address] Cellulitis of right finger; Other specified disorders of teeth and supporting structures; Other hyperlipidemia Social History Tobacco Use Types Packs/Day Years [...] suspected to have Coronavirus/COVID-19? No / Unsure 03/17/2022 7:59 AM EST documented as of this encounter Last Filed Vital Signs Vital Sign Reading Time Taken Comments Blood Pressure 139/75 03/17/2022 8:18 AM EST Pulse 80 03/17/2022 8:18 AM EST Temperature - - Respiratory Rate - - Oxygen Saturation - - Inhaled Oxygen Concentration - - Weight - - Height - - Body Mass Index - - documented in this encounter Patient Instructions * Patient Instructions* Aaron Callejas MD - 03/17/2022 8:00 AM EST If doesn't continue to get better after stopping the anti-biotics, let us know. documented in this encounter Progress Notes * Aaron Callejas MD - 03/17/2022 8:00 AM EST [facility] Note Patient: Gianna Infante Sex: female Date of : 1945, 76 y.o. Date of Visit: 03/17/2022 Visit Information: Attending Physician: Aaron Callejas MD Assisting: Haleigh WILDER, ATC Referral Source: Self Accompanied by: Self Source of History: Self History Limitation: None Activity/Sport: Chief Complaint: Chief Complaint Patient presents with Right Index Finger - Pain History of Present Illness: Gianna Infante is a pleasant 76 y.o. female patient who is here today for evaluation of her right hand second digit. Patient states she burned her index finger on and noticed increased redness 1 week after. On February 25 she had increased swelling in this finger and she noticed purple coloration. She did not do anything about her symptoms until 03/10/2022 when she followed up with urgent care. They prescribed her doxycycline and amoxicillin. She started taking these medications and on her second day she began having dizziness. She called the urgent care who recommended she go to the emergency room. On 03/11/2022 she was evaluated in the ER and was diagnosed with cellulitis. They changed her prescription to Bactrim. Patient has been taking Bactrim DS as directed since then (no dizziness or other adverse reactions with this med). She follows up today because she is going out of town and she is about to run out of the Bactrim. She states her swelling has improved some and she is able to bend at her PIP joint now. She still has pain and limited motion at her DIP joint of this finger. She plans to follow up with her PCP later this month. Review of Systems: A full ROS was performed and was negative unless mentioned above in the HPI. Problem List/Past Medical History: Past Medical History Diagnosis Date Anxiety 1951 Arthritis of both hands 06/10/2015 Right > left Compression fracture of body of thoracic vertebra (CMS/HCC) 02/17/2022 GERD (gastroesophageal reflux disease) Heart murmur 1989 History of basal cell carcinoma (BCC) 06/18/2011 B/w right eye and nose. 06/18/2011-[facility] History of colon polyps 08/09/2018 [...] eye 06/25/2015 Osteoporosis 2011 Other hyperlipidemia 02/17/2022 Pseudophakia, both eyes Situational mixed anxiety and depressive disorder 07/27/2019 Spondylosis of lumbosacral spine without myelopathy 06/27/2008 Varicose veins 01/13/2011 Surgical History: Past Surgical History: Procedure Laterality Date CATARACT EXTRACTION Bilateral 2020 CE-IOL OU TOTAL KNEE ARTHROPLASTY Bilateral 2017 and 2021 Medications: Current Outpatient Medications on File Prior to Visit Medication Sig Dispense Refill ascorbic [id number]-[id number]-[id number] (Emergen-C) 1,000 mg powder effervescent in packet atorvastatin (Lipitor) 40 mg tablet Take 1 tablet (40 mg) by mouth once daily. 90 tablet 1 clotrimazole (Lotrimin) 1 % vaginal cream cyanocobalamin (Vitamin B-12) 500 mcg tablet Take 500 mcg by mouth once daily. doxycycline (Vibramycin) 100 mg capsule TAKE ONE CAPSULE BY MOUTH TWICE A DAY FOR 7 DAYS EPINEPHrine 0.15 mg/0.3 mL syringe ibuprofen 200 mg tablet magnesium 250 mg tablet melatonin 0.5 mg tablet split tablet pilocarpine (Pilocar) 1 % ophthalmic solution Administer 1 drop into affected eye(s). polyvinyl alcohol-povidon,PF, (Refresh Classic, PF,) 1.4-0.6 % eye drops in a dropperette sulfamethoxazole-trimethoprim (Bactrim DS) 800-160 mg tablet Take 1 tablet by mouth twice daily for14 days. 28 tablet 0 vitamin K2 40 mcg tablet Take by mouth. zoledronic acid/mannitol-water (RECLAST IV) Infuse into a venous catheter. acetaminophen (Tylenol) 500 mg tablet EPINEPHrine (Epipen) 0.3 mg/0.3 mL injection syringe Inject 0.3 mL (0.3 mg) as directed if needed for anaphylaxis. Call 911 after use. 1 each 0 [] polyethylene glycol (Golytely) 236-22.74-6.74 -5.86 gram solution Take 4,000 mL by mouth 1 (one) time for 1 dose. DAY BEFORE EXAM: NO FOOD, CLEAR LIQUIDS ONLY. BEGIN PREP AT 6PM. DRINK 8 OUNCES BY MOUTH EVERY 15 MINUTES UNTIL 3/4 (12 CUPS) COMPLETED. DRINK THE REST 4 HOURS BEOFRE THE TEST. 4000 mL 0 [DISCONTINUED] amoxicillin (Amoxil) 875 mg tablet TAKE ONE TABLET BY MOUTH TWICE A DAY FOR 7 DAYS [DISCONTINUED] sulfamethoxazole-trimethoprim (Bactrim DS) 800-160 mg tablet Take 1 tablet by mouth twice daily for 14 days. 28 tablet 0 [DISCONTINUED] sulfamethoxazole-trimethoprim (Bactrim DS) 800-160 mg tablet Take 1 tablet by mouth twice daily for 14 days. 28 tablet 0 [DISCONTINUED] zoledronic acid/mannitol-water (RECLAST IV) No current facility-administered medications on file prior to visit. Allergies: Allergies Allergen Reactions Bee Venom Protein (Honey Bee) Anaphylaxis Fluoxetine Other reaction(s): Other (See Comments), Other (See Comments) paranoid Paranoid Paranoid Estrogens, Conjugated Hymenoptera Allergenic Extract Serotonin Hallucinations Wasp Venom Social History: Social History Substance and Sexual Activity Alcohol Use Yes Alcohol/week: 1.0 standard drink Types: 1 Glasses of wine per week Comment: 4 per week average Tobacco Use: Low Risk Smoking Tobacco Use: Never Smokeless Tobacco Use: Never Physical Examination: Visit Vitals BP 139/75 Pulse 80 General: Appropriately Alert and oriented. Body habitus: Within normal limits. Appearance: Within normal limits, Calm. Behavior: Within normal limits. Psychiatric: Cooperative, Appropriate mood & affect. Neurologic: Alert, Oriented. Hand/wrist/finger (Right) Inspection Swelling: index finger globally swollen a bit Ecchymosis: none Scissoring: none No erythema Palpation Tenderness: mild, at PIP joint and some at DIP joint Wrist Flexion Normal. Wrist Extension Normal. Wrist Radial Deviation Normal. Wrist Ulnar Deviation Normal. Wrist/Pinch/[employer] Motor Strength Wrist Extension: 5/5 Wrist Flexion: 5/5 [employer]: 5/5 Finger Flexion Normal. Finger Extension Normal. Sensory index Normal Special Tests Finkelsteins: normal Tinnels: normal Phalens: normal Pinch residential mental health worker: normal Imaging: Images from ED on 03/11 - degenerative changes noted but no acute issues seen. Assessment and Plan: Diagnosis Plan 1. Cellulitis of right finger Ambulatory referral to Orthopaedic Surgery sulfamethoxazole-trimethoprim (Bactrim DS) 800-160 mg tablet 2. Other specified disorders of teeth and supporting structures Ambulatory referral to Orthopaedic Surgery 3. Other hyperlipidemia Ambulatory referral to Orthopaedic Surgery If doesn't continue to get better after stopping the anti-biotics, let us know. I explained the pathology and natural history of the diagnosis to the patient. We had an extensive discussion as to the conservative treatment and management of the condition. We also discussed the variety of treatment options to include medication, physical therapy, diagnostic testing as well as other treatments. The patient's questions were answered. This note has been scribed in part by Haleigh Pinzon [facility] This ATC performed and documented a complete history pre-assessment including the history of present illness, which I explored and confirmed personally with the patient. The ATC has scribed the remainder of this note (or portions of the remainder of this note), including my physical examination, myplan of care and diagnoses, x-rays I interpreted, and procedures I performed. I agree that the scribed documentation is accurate and complete. - Aaron Callejas MD Answers submitted by the patient for this visit: Ortho Patient Questionnaire (Submitted on 03/10/2022) Chief Complaint: ORTHO MYCHART PATIENT RFV Returning for same problem: is not Primary complaint: right wrist/hand/fingers Secondary complaint: neck Third complaint: lower back Main hand: right-handed Right arm neck pain: do not have pain Injury date #: 3 Injury date unit: week(s) Current problem describe cause: other Current problem describe cause other: Burned finger on Thanksgiving while cooking Current problem onset: suddenly Current problem begin date: 02/18/2022 Prior treatments: other Prior treatments other: Doxycycline HYC 100MG & amoxicillin 875mg for infected finger cellulitis as well as infected tooth. Night pain: do Medications taken: Tylenol, anti-inflammatory (ibuprofen, naproxen, etc) Studies done: none of these Prior surgeries: knee surgery Knee surgery side: left knee Knee surgery type: knee replacement (partial or total) Surgical infection: have not Anesthesia problems: have not Prior activity: retired Normal physical requirements: light (lifting less than 30 pounds) Right wrist/hand/fingers pain frequency: 3 Right wrist/hand/fingers pain severity: 3 Right wrist/hand/fingers function: 4 Right wrist/hand/fingers problem description: redness, stiffness, swelling Right wrist/hand/fingers problem rating: moderate Right wrist/hand/fingers pain description: dull pain, numbness Right wrist/hand/fingers pain worse: picking up an object, gripping something, opening a door, all the time Right wrist/hand/fingers pain better: rest Neck pain description: sharp pain, burning pain, shooting pain Neck pain trending: staying about the same Neck pain worst: 6 Neck pain average: 4 Neck pain frequency: 50% Neck resting pain reflief: 80% Neck pain worse: lying down, none of the above Neck pain better: none of the above Lower back pain description: aching pain Lower back pain trending: staying about the same Lower back pain worst: 5 Lower back pain average: 4 Lower back pain frequency: 20% Lower back resting pain reflief: 80% Lower back pain worse: sitting Lower back pain better: walking documented in this encounter Plan of Treatment Upcoming Encounters Date Type Department Care Team (Late st Contact Info) Description 01/04/2024 11:20 AM EDT Procedure Visit [facility] [address] [facility] [address] [place] [address] Katie Jones, LISA 01/06/2024 2:00 PM EDT Appointment [facility] [address] [place] [address] 01/09/2024 2:00 PM EDT Office Visit [facility] [address] [facility] [address] [place] [address] Radha Coker MD [address] [place] [address] 01/10/2024 8:30 AM EDT Office Visit [facility] [address] [place] [address] Vandana, Sydnee Ndiaye, [address] [facility] [place] [address] 01/11/2024 10:00 AM EDT Office Visit [facility] [address] [facility] [address] [place] [address] Kat Rico, PATTIE [address] [place] [address] 01/20/2024 11:45 AM EDT Clinical Support [facility] [address] [place] [address] Maria Eugenia Lucero, ORA [address] [place] [address] 01/30/2024 8:40 AM EST Office Visit [facility] [address] [facility] [address] [place] [address] Jose Monique MD [address] [facility] [address], [address] [place] [address] 02/27/2024 12:50 PM EST Office Visit [facility] [address] [facility] [address] [place] [phone] Kellie Bowser, OD [address] [facility] [address] [facility] [place] [address] 06/19/2024 11:30 AM EDT Appointment [place] [address] [place] [address] 06/19/2024 1:00 PM EDT Appointment [place] [address] [address] 08/21/2024 1:40 PM EDT Office Visit [facility] [address] 3rd [place] [address] Satya Wright PA [address] [facility] 3rd [place] [address] 09/05/2024 10:30 AM EDT Office Visit [facility] [address] [place] [address] Tatiana Dominguez, KASH [address] [place] [address] documented as of this encounter Visit Diagnoses Diagnosis Cellulitis of right finger Other specified disorders of teeth and supporting structures Other hyperlipidemia documented in this encounter Additional Health Concerns Assessment Noted Time A fall risk assessment has been complete d for the patient 02/17/2022 8:58 AM EST documented as of this encounter
--- OUTSIDE RECORDS SUMMARY | 2023-11-14 01:06 | XMS_ITS | Encounter Summary ---
Author Organization [facility] Address [address] [place] [address], [place] [address] Phone Care Team Providers Care Senior Data Integration Developer Name Role Phone Unavailable Primary Care Provider Unavailabl e Encounter Details Date Type Department Care Team (Late st Contact Info) Description 05/19/2022 2:42 PM EST Anesthesia Event [facility] [address] [facility], Floor 1 [address] [place] [address] Leela Oden MD [address] [place] [address] Anesthesia Record Procedure Summary Procedure Name Responsible Anesthesiologist Anesthesia Start Time Anesthesia Stop Time COLONOSCOPY FLEXIBLE Holger Oden MD 05/19/22 1442 05/19/22 1516 Events Date Time Event Comment 05/19/2022 1420 1442 In Room 1442 An Start 1442 An Start Data 1443 Anesthesia Ready 1512 an stop data 1512 Out of Room 1515 Handoff to Receiving I compl eted my handoff to the receiving clinician during which we: 1. Identified the patient 2. Identified the responsible provider 3. Reviewed the pertinent medical history 4. Discussed the surgical course 5. Reviewed intra-op anesthesia management and issues during anesthesia 6. Set expectations for post-procedure period 7. Allowed opportunity for questions and acknowledgement of understanding. 1516 An Stop Meds Name Total lidocaine (Xylocaine) injection 2 % 70 m g propofol (Diprivan) injection 10 mg/mL 4 00 mg lactated Ringer's infusion 450 mL * Agents No agents on file. * Blood No blood administrations on file. Lines, Drains, and Airways Type Details Placement Removal Peripheral IV Placement Date: 04/29 05/20; Placement Time: 1349; Catheter Size: 22 G; Orientation: Anterior, Distal, Left; Location: Forearm; Site Prep: Alcohol; Inserted by: lp; Insertion Attempts: 1; Difficult Venous Access? No; Patient Tolerance: Tolerated well; Removal Date: 05/19/22; Removal Time: 1528 05/19/22 1349 by Rani Campos 05/19/22 1528 by Yudelka Gregorio documented in this encounter Social History Tobacco [...] suspected to have Coronavirus/COVID-19? No / Unsure 05/19/2022 12:56 PM EST documented as of this encounter OR Notes * Anesthesia Postprocedure Evaluation - Leela Oden MD - 05/19/2022 3:54 PM EST Patient: Gianna Infante Procedure Summary Date: 05/19/22 Room / Location: [facility] Anesthesia Start: 1442 Anesthesia Stop: 1516 Procedure: COLONOSCOPY FLEXIBLE Diagnosis: History of colon polyps (High risk colon cancer surveillance: Personal history of colonic polyps) Scheduled Providers: Walter Conrad MD; Leela Oden MD; Ignacio Mehta Responsible Provider: Leela Oden MD Anesthesia Type: MAC ASA Status: 2 Anesthesia Type: MAC Vitals Value Taken Time BP 153/74 05/19/22 1526 Temp ... 05/19/22 1554 Pulse 66 05/19/22 1526 Resp 22 05/19/22 1526 SpO2 100 % 05/19/22 1526 Anesthesia Post Evaluation Patient location during evaluation: PACU Patient participation: complete - patient participated Level of consciousness: awake and alert Pain management: adequate Airway patency: patent Cardiovascular status: stable Respiratory status: spontaneous ventilation and acceptable Hydration status: balanced There were no known notable events for this encounter. * Anesthesia Preprocedure Evaluation - Leela Oden MD - 05/19/2022 2:17 PM EST Patient: Gianna Infante Procedure Information Date/Time: 05/19/22 1400 Scheduled providers: Walter Conrad MD; Leela Oden MD; Ignacio Mehta Procedure: COLONOSCOPY FLEXIBLE Location: [facility] Relevant Problems Cardiac (+) Hypertension (+) Other hyperlipidemia Pulmonary (+) Exertional dyspnea GI (+) GERD (gastroesophageal reflux disease) Neuro/Psych (+) Chronic neck pain Other (+) Arthritis of both hands Clinical information reviewed: Allergies Meds OB Status Gianna Infante is a 76 y.o. female with * No Diagnosis Codes entered * presenting for above procedure. Medical history significant for the following. Past Medical History Diagnosis Date ??? Anxiety 1951 ??? Arthritis of both hands 06/10/2015 Right > left ??? Cataract 2012 ??? Chronic constipation August 2021 ??? Chronic neck pain 03/26/2022 ??? Colon polyp 2007 ??? Compression fracture of body of thoracic vertebra (CMS/HCC) 02/17/2022 ??? Diverticulosis 03/26/2022 ??? Dry eyes 2012 ??? Dysphagia 10/2021 ??? GERD (gastroesophageal reflux disease) ??? Heart murmur 1989 ??? History of basal cell carcinoma (BCC) 06/18/2011 B/w right eye and nose. 06/18/[facility] ??? History of colon polyps 08/09/2018 ??? Hypertension 2020 ??? Insomnia 04/23/2013 ??? Macular pucker, left eye 08/09/2012 ??? Memory deficit 02/17/2022 Went to a memory clinic, 05/2021 after 2 hard concussions & decreasing recall, brain scan inconclusive, but forgetting is increasing-this is troublingWent to a memory clinic, 05/2021 after 2 hardconcussions & decreasing recall, brain scan inconclusive, but forgetting is increasing-this is troubling to me. to me. ??? Neuromuscular disorder (CMS/HCC) ??? 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 Nevus of choroid of right eye 06/25/2015 ??? Osteoporosis 2011 ??? Other hyperlipidemia 02/17/2022 ??? Pancreatic lesion 03/26/2022 ??? Pseudophakia, both eyes ??? Situational mixed anxiety and depressive disorder 07/27/2019 ??? Spondylosis of lumbosacral spine without myelopathy 06/27/2008 ??? Thyroid nodule 03/26/2022 ??? Varicose veins 01/13/2011 Past Surgical History: Procedure Laterality Date ??? CATARACT EXTRACTION Bilateral 2020 CE-IOL OU ??? TOTAL KNEE ARTHROPLASTY Bilateral 2017 and 2021 ??? VASCULAR SURGERY 1978?-Varicose vein stripping in both legs Allergies Allergen Reactions ??? Bee Venom Protein (Honey Bee) Anaphylaxis ??? Fluoxetine Other reaction(s): Other (See Comments), Other (See Comments) paranoid Paranoid Paranoid ??? Estrogens, Conjugated ??? Hymenoptera Allergenic Extract ??? Serotonin Hallucinations ??? Wasp Venom BP 155/71 Pulse 79 Temp (!) 35.8 ??C (96.5 ??F) (Temporal) Resp 17 Ht 1.753 m (5' 9) Wt 68.5 kg (151 lb 0.2 oz) SpO2 99% BMI 22.30 kg/m?? BP Readings from Last 3 Encounters: 05/19/22 155/71 04/19/22 131/83 04/06/22 (!) 154/91 Current Outpatient Medications Medication Instructions ??? ascorbic [id number] (Emergen-C) 1,000 mg powder effervescent in packet No dose, route, or frequency recorded. ??? atorvastatin (LIPITOR) 40 mg, oral, Daily ??? ibuprofen 200 mg tablet No dose, route, or frequency recorded. ??? magnesium 250 mg tablet No dose, route, or frequency recorded. ??? melatonin 0.5 mg tablet split tablet No dose, route, or frequency recorded. ??? omeprazole (PRILOSEC) 40 mg, oral, Daily before breakfast, Do not crush or chew. ??? polyvinyl alcohol-povidon,PF, (Refresh Classic, PF,) 1.4-0.6 % eye drops in a dropperette No dose, route, or frequency recorded. ??? vitamin K2 40 mcg tablet oral ??? zoledronic acid/mannitol-water (RECLAST IV) intravenous Social History Tobacco Use ??? Smoking status: Never ??? Smokeless tobacco: Never Substance Use Topics ??? Alcohol use: Yes Alcohol/week: 1.0 standard drink Types: 1 Glasses of wine per week Comment: 4 per week average ??? Drug use: Never Lab Results Component Value Date White Blood Cell 5.6 03/11/2022 Red Blood Cell 4.52 03/11/2022 Hemoglobin 14.1 03/11/2022 Hematocrit 42.5 (H) 03/11/2022 Mean Corpuscular Volume 94.0 03/11/2022 Mean Corpuscular Hemoglobin 31.2 03/11/2022 Mean Corpuscular Hemoglobin Concentration 33.2 03/11/2022 Platelet 274 03/11/2022 Red Cell Distribution Width Standard Deviation 45.0 (H) 03/11/2022 Red Cell Distribution Width Coefficient of John. 13.1 03/11/2022 Mean Platelet Volume 9.2 (L) 03/11/2022 Auto Nucleated Red Cell Count 0 03/11/2022 Absolute NRBC 0.0 03/11/2022 Lab Results Component Value Date Sodium 140 05/11/2022 Potassium 4.1 05/11/2022 Chloride 100 05/11/2022 Carbon Dioxide Level 29 05/11/2022 Blood Urea Nitrogen 13 05/11/2022 Creatinine 0.59 (L) 05/11/2022 Glucose 74 05/11/2022 Calcium Level Total 9.5 05/11/2022 Anion Gap 11 05/11/2022 Calculated Osmolality 279 05/11/2022 U:C 22 (H) 05/11/2022 Estimated GFR 89 05/11/2022 Encounter Date: 12/31/21 ECG 12 lead Result Value Ventricular Rate 59 Atrial Rate 59 UT Interval 188 QRSD Interval 90 QT Interval 422 QTC Interval 417 P [place] 98 Right [place] 68 T Wave [place] 52 Narrative Sinus bradycardia Minimal voltage criteria for LVH, may be normal variant ( Sokolow-Manley ) Cannot rule out Anterior infarct , age undetermined Abnormal ECG No previous ECGs available Confirmed by SABRINA SCHAEFFER ([id number]) on 01/26/2022 5:13:48 PM No echocardiogram results found for the past 12 months I have explained the type(s), benefits, risks, and options for anesthesia for this procedure at bedside. The patient acknowledges the risks of anesthesia and elects to proceed with the planned anesthetic. Leela Boogie MD [facility] Anesthesiology Physical Exam Airway Mallampati: II TM distance: >3 FB Neck ROM: full Cardiovascular Rhythm: regular Dental - normal exam Neurological Mental Status: alert Musculoskeletal - normal exam Pulmonary - normal exam Abdominal Anesthesia Plan ASA 2 MAC (PT NOT ON ANY BP MEDS. GERD MILD,OCCAS PEPCID) Education provided regarding risk of obstructive sleep [...] encounter Miscellaneous Notes * Addendum Note - Leela Oden MD - 05/19/2022 3:54 PM EST Addendum created 05/19/22 1554 by Leela Oden MD Clinical Note Signed documented in this encounter Plan of Treatment Upcoming Encounters Date Type Department Care Team (Late st Contact Info) Description 01/04/2024 11:20 AM EDT Procedure Visit [address] Medical [facility] [place] Floor 9 [place] [address] Katie Jones AUD 01/06/2024 2:00 PM EDT Appointment [facility] [address] [place] [address] 01/09/2024 2:00 PM EDT Office Visit [facility] 550 [facility] Medical Office [place] 19th Floor [address] [place] [address] Radha Coker MD 550 [place] [address] 01/10/2024 8:30 AM EDT Office Visit [facility] - Primary [facility] [address] [place] [address] Vandana, Sydnee Ndiaye, [address] [facility] [place] [address] 01/11/2024 10:00 AM EDT Office Visit [facility] - ENT & Facial Plastic Surgery [address] [facility] [address] [place] [address] Kat Rico, PATTIE [address] [place] [address] 01/20/2024 11:45 AM EDT Clinical Support [facility] [address] [place] [address] Maria Eugenia Lucero, ORA [address] [place] [address] 01/30/2024 8:40 AM EST Office Visit [facility] 550 [facility] Medical Office [place] 15th Floor [address] [place] [address] Jose Monique MD 550 [facility] [place] 15th Floor, [address] [place] [address] 02/27/2024 12:50 PM EST Office Visit [facility] [address] 4 [address] [place] [address] Henrry Calixto Kellie Pedro Luis, OD [address] 4, [address] [facility] [place] [address] 06/19/2024 11:30 AM EDT Appointment [place] [address] [place] [address] 06/19/2024 1:00 PM EDT Appointment [place] [address] [place] [address] 08/21/2024 1:40 PM EDT Office Visit [facility] at [address] [place] [address] 3rd [place] [address] Satya Wright PA [address] [facility] 3rd [place] [address] 09/05/2024 10:30 AM EDT Office Visit [facility] [address] [place] [address] Tatiana Dominguez, MOLD BREAKER [address] [facility] [place] [address] documented as of this encounter Visit Diagnoses Not on filedocumented in this encounter Administered Medications Inactive Administered Medications - up to 3 most recent administrations Medication Order MAR Action Action Date Dose Rate Site lactated Ringer's infusion 25 mL/hr, intravenous, Continuous, Starting on Tue05/19/22 at 1400, Preprocedure Continued by Anesthesia 05/19/2022 2:42 PM EST 25 mL/hr New Bag 05/19/2022 2:37 PM EST 25 mL/hr lidocaine (Xylocaine) 20 mg/mL (2 %) injection intravenous, As needed, Starting on Tue05/19/22 at 1447, Anesthesia Intraprocedure Given 05/19/2022 2:47 PM EST 7 0 mg propofol (Diprivan) intravenous emulsion intravenous, As needed, Starting on Tue05/19/22 at 1447, Anesthesia Intraprocedure Given 05/19/2022 2:47 PM EST 4 00 mg documented in this encounter Additional Health Concerns Assessment Noted Time A fall risk assessment has been complete d for the patient 04/19/2022 3:06 PM EST documented as of this encounter
--- OUTSIDE RECORDS SUMMARY | 2023-11-14 01:06 | XMS_ITS | Encounter Summary ---
Author Organization [facility] Address [address] [place] [address], [place] [address] Phone Care Team Providers Care Vocational Psychologist Name Role Phone Unavailable Primary Care Provider Unavailabl e Reason for Visit * Reason Onset Date Comments Appointment 03/15/2022 Encounter Details Date Type Department Care Team (Late st Contact Info) Description 03/15/2022 Telephone [facility] [phone] Walter Conrad MD [address] [facility] 5, [address] [place] [address] Appointment Social History Tobacco Use Types Packs/Day [...] encounter Miscellaneous Notes * Telephone Encounter - Shruti Sy - 03/15/2022 1:00 PM EST Patient is returning Eric call to schedule a colonoscopy. Please call back. documented in this encounter Plan of Treatment Upcoming Encounters Date Type Department Care Team (Late st Contact Info) Description 01/04/2024 11:20 AM EDT Procedure Visit [facility] 550 [facility] Medical Office [place] Floor 9 [place] [address] Katie Jones, LISA 01/06/2024 2:00 PM EDT Appointment [facility] [address] [place] [address] 01/09/2024 2:00 PM EDT Office Visit [facility] 550 [facility] Medical [facility] [place] 19th Floor [address] [place] [address] Radha Coker MD 550 [place] [address] 01/10/2024 8:30 AM EDT Office Visit [facility] - Primary Care [address] [place] [address] Vandana, Sydnee Ndiaye DO [address] [facility] - [place] [address] 01/11/2024 10:00 AM EDT Office Visit [facility] - ENT & Facial Plastic Surgery [address] [facility] [address] [place] [address] Kat Rico, PATTIE [address] [place] [address] 01/20/2024 11:45 AM EDT Clinical Support [facility] [address] [place] [address] Maria Eugenia Lucero, ORA [address] [place] [address] 01/30/2024 8:40 AM EST Office Visit [facility] 550 [facility] [place] 15th Floor [address] [place] [address] Jose Monique MD 550 [facility] Medical Office [place] 15th Floor, [address] [place] [address] 02/27/2024 12:50 PM EST Office Visit [facility] [address] [facility] Floor 4 [address] [place] [address] Kellie Bowser, OD [address] [facility] [address], [address] [facility] [place] [address] 06/19/2024 11:30 AM EDT Appointment [place] [address] [address] 06/19/2024 1:00 PM EDT Appointment [place] [address] [address] 08/21/2024 1:40 PM EDT [facility] [address] 3rd [place] [address] Satya Wright PA [address] [facility] 3rd [place] [address] 09/05/2024 10:30 AM EDT Office Visit [facility] [address] [place] [address] Tatiana Dominguez, KASH [address] [place] [address] documented as of this encounter Visit Diagnoses Not on filedocumented in this encounter Additional Health Concerns Assessment Noted Time A fall risk assessment has been complete d for the patient 02/17/2022 8:58 AM EST documented as of this encounter
--- OUTSIDE RECORDS SUMMARY | 2023-11-14 01:06 | XMS_ITS | Encounter Summary ---
Author Organization [facility] Address [address] [facility] [address], [place], [place] [address] Phone Care Team Providers Care Grain Trimmer Name Role Phone Unavailable Primary Care Provider Unavailabl e Encounter Details Date Type Department Care Team (Late st Contact Info) Description 04/06/2022 Telephone [facility] [phone] Vandana, Sydnee Ndiaye DO [address] [facility] [place] [address] Social History Tobacco Use Types Packs/Day Years [...] Telephone Encounter - Sydnee Ross DO - 04/09/2022 9:37 AM EST This was discussed with Jyoti at medical front desk specialist. There was already a physical therapy order in the system so I was told this was re-faxed. * Telephone Encounter - Rebecca Sy - 04/06/2022 10:49 AM EST CLINICAL CONCERN Concern / Question: joe from [facility] was calling about a mutual pt of doctor jerome and she says that she needs a order for physical threapy for the pt because they are not on [facility] and it needs to be sent via fax please and thank you pt has appt with them tomorrow fax number [phone] documented in this encounter Plan of Treatment Upcoming Encounters Date Type Department Care Team (Late st Contact Info) Description 01/04/2024 11:20 AM EDT Procedure Visit [facility] 550 [facility] Medical Office [place] Floor 9 [place] [address] Katie Jones AUD 01/06/2024 2:00 PM EDT Appointment [facility] [address] [place] [address] 01/09/2024 2:00 PM EDT Office Visit [facility] 550 [facility] Medical Office [place] 19th Floor [address] [place] [address] Radha Coker MD 550 [place] [address] 01/10/2024 8:30 AM EDT Office Visit [facility] - Primary Care [address] [place] [address] Sydnee Ross DO [address] [facility] [place] [address] 01/11/2024 10:00 AM EDT Office Visit [facility] - [facility]NT & Facial Plastic Surgery [address] [place] [address] Kat Rico, PATTIE [address] [place] [address] 01/20/2024 11:45 AM EDT Clinical Support [facility] [address] [place] [address] Maria Eugenia Lucero, ORA [address] [place] [address] 01/30/2024 8:40 AM EST Office Visit [facility] [address] [facility] [place] 15th Floor [address] [place] [address] Jose Monique MD 550 [facility] [place] 15th Floor, [address] [place] [address] 02/27/2024 12:50 PM EST Office Visit [facility] [address] [facility] [facility] [facility] [address] 4 [address] [place] [address] Kellie Bowser, OD [address], [address] [facility] [place] [address] 06/19/2024 11:30 AM EDT Appointment [facility] [address] [place] [address] 06/19/2024 1:00 PM EDT Appointment [facility] [address] [place] [address] 08/21/2024 1:40 PM EDT Office Visit [facility] [address] [place] [facility] [address] [facility] 3rd [place] [address] Satya Wright PA [address] [facility] 3rd [place] [address] 09/05/2024 10:30 AM EDT Office Visit [facility] [address] [place] [address] Tatiana Dominguez, KASH [address] [place] [address] documented as of this encounter Visit Diagnoses Not on filedocumented in this encounter Additional Health Concerns Assessment Noted Time A fall risk assessment has been complete d for the patient 04/06/2022 2:02 PM EST documented as of this encounter
--- OUTSIDE RECORDS SUMMARY | 2023-11-14 01:06 | XMS_ITS | Encounter Summary ---
Author Organization [facility] Address [address] [facility] , [place], [place] [address] Phone Care Team Providers Care Applied Anthropologist Name Role Phone Unavailable Primary Care Provider Unavailabl e Reason for Visit * Reason Comments Skin Check TBSE Encounter Details Date Type Department Care Team (Late st Contact Info) Description 03/09/2022 1:40 PM EST Office Visit [facility] at [address] [place] [address] 3rd [place] [address] Frandy Negrete MD [address] [place] [address] [place] 3 [facility] AT [address] [place] [address] History of basal cell carcinoma (BCC) (Primary Dx); Actinic keratosis; Solar lentigo; Xerosis cutis Social History Tobacco Use Types Packs/Day Years [...] Sign Reading Time Taken Comments Blood Pressure 157/80 03/09/2022 1:42 PM EST Pulse 69 03/09/2022 1:42 PM EST Temperature - - Respiratory Rate - - Oxygen Saturation 98% 03/09/2022 1:40 PM EST Inhaled Oxygen Concentration - - Weight 66.2 kg (146 lb) 03/09/2022 1:40 PM EST Height 175.3 cm (5' 9) 03/09/2022 1:40 PM EST Body Mass Index 21.56 03/09/2022 1:40 PM EST documented in this encounter Patient Instructions * Patient Instructions* Cm Lara - 03/09/2022 1:40 PM EST Protecting Your Skin from the Sun The sun???s rays contain ultraviolet (UV) radiation that can damage our skin. There is no ???safe?? ultraviolet ray. Even on cloudy days, UV radiation reaches the earth and can cause skin damage. Ultraviolet A (UVA) is primarily responsible for premature aging, wrinkles, and tanning, while ultraviolet B (UVB) causes sunburns. Both types can severely damage the skin and cause skin cancer. Sun exposure is the most preventable risk factor for all skin cancers, including melanoma. You can still have fun in the sun and decrease your risk for skin cancer. Apply water-resistant sunscreen generously with a Sun Protection Factor (SPF) of at least 30 that provides broad-spectrum protection from both ultraviolet A (UVA) and ultraviolet B (UVB) rays to all exposed skin. Re-apply every two hours, even on cloudy days, and after sweating or swimming. Sunscreens are not perfect because some ultraviolet light may still get through sunscreens, so they should not be used as a way of prolonging sun exposure. Seek shade when appropriate, remembering that the sun???s rays are the strongest between 10 AM and 4 PM. Wear sun protective clothing such as a long-sleeved shirt, pants, a wide-brimmed hat, and sunglasses, when possible. Some sunlight will get through your clothing. You can wear sunscreen underneath, or you can buy clothing that has been treated to give additional sun protection. Such clothing will have a UPF rating on the label. (eFrankyg., www.coolEchogen Power Systemsr.Everwise, www.[employer].Everwise) Protect children from sun exposure by having them play in the shade, dressing them in protective clothing, and applying sunscreen. Use extra precaution when near water, snow, and sand. These surfaces reflect the damaging rays of the sun and can increase your chance of sunburn. Get vitamin D safely through a healthy diet that may include vitamin supplements. Don???t seek the sun for vitamin D. Avoid tanning beds. Ultraviolet light from the sun and tanning beds can cause wrinkling and skin cancer. If you want to look like you???ve been in the sun, consider using a sunless self-tanning product, but continue to use sunscreen with it. Perform a regular self skin exam. If you notice anything changing, growing, or bleeding on your skin, see a clinical trials nurse. Skin cancer is very treatable when caught early. Examples of good broad-spectrum sunscreens: Blue Lizard Coppertone Spectra 3 [place] Block Neutrogena Ultra Sheer Dry Touch [facility] Solbar Total Block/Dimas Brothers MD What the active ingredients do: UVB blockers: padimate O homosalate, octyl methoxycinnamate, benzophenone octyl salicylate, phenylbenzimadazole sulfonic acid, octocrylene UVA blockers: oxybenzone, avobenzone (Parsol 1789) Physical blockers: titanium dioxide, zinc oxide (These are chemical-free sunscreens that reflect both UVA and UVB. These may be safest if you are allergic to some sunscreens. These may also be betterfor sensitive skin.) Cryotherapy Cryotherapy is the treatment of lesions with the application of a cold substance. In most cases, liquid nitrogen is used to destroy the lesion(s). Liquid nitrogen is so cold, -196?? Celsius, it feelslike it is burning when it is applied. After treatment with liquid nitrogen, there may be some burning sensation or pain that can last up to 24 hours. The area may also be swollen and red. The discomfort can be relieved with ibuprofen (Advil, Motrin), acetaminophen (Extra Strength Tylenol), or similar pain relief medication. Within 24 to 48 hours, a blister may form. Occasionally, these blisters will become filled with blood and become very dark. This is no cause for concern. The blister will gradually dry up over a period of several days, eventually from the healing skin below in about one to two weeks. Thesurrounding skin will become red and the area may become itchy. This is all part of the normal healing process. Occasionally, the crusts will last as long as four weeks when certain deeper spots on the skin are treated. Sometimes a permanent white werner or scar will be left after healing. You may continue all of your normal activities as long as they do not cause pain in the treated areas. It is okay to get the area wet. After therapy or if the blister is still intact - You may treat it like normal skin. Covering the area with a bandage may offer some comfort and protection from trauma but is not absolutely necessary. If the blister is uncomfortable - Clean a small needle with rubbing alcohol, then gently make a small hole in the side of the blister to drain the blister fluid. This often gives immediate relief. Donot remove the blister roof, as the blister aids in healing. In time it will fall off on its own. Once the blister roof falls off or a sore forms - Clean the blister sites with soap and water. Rinse the area and pat dry. Do not force off the blister roof or crust. Apply an antibiotic ointment such as Polysporin or Bacitracin. A bandage may be applied loosely over the blister until it is healed if desired. Call our office if you are concerned it may be infected. Some redness, itching and oozing is part of the normal healing process. Signs of infection include increasing redness, increasing pain, swelling, heat, or yellow discharge. documented in this encounter Progress Notes * Frandy Negrete MD - 03/09/2022 1:40 PM EST Assessment/Plan History of basal cell carcinoma (BCC) Sun protection and self exams Related Procedures Dermatology Follow Up Appointment Request Follow up providers: Other dermatology subspecialty; Subspecialty: Complex Dermatology; Visit Mode: In-person Actinic keratosis (3) Head - Anterior (Face) Sun protection and self exams discussed Destr of lesion - Head - Anterior (Face) (3) Complexity: simple Destruction method: cryotherapy Informed consent: discussed and consent obtained Lesion destroyed using liquid nitrogen: Yes Region frozen until ice ball extended beyond lesion: Yes Cryotherapy cycles: 1 Outcome: patient tolerated procedure well with no complications Additional details: Post liquid nitrogen care discussed Related Procedures Dermatology Follow Up Appointment Request Follow up providers: Other dermatology subspecialty; Subspecialty: Complex Dermatology; Visit Mode: In-person Solar lentigo Sun protection and self exams discussed Xerosis cutis (2) Left Leg; Right Leg Recommend OTC emollients Subjective Gianna Infante is a 76 y.o. female who presents for the following: Skin Check (TBSE). The following portions of the chart were reviewed this encounter and updated as appropriate: HPI History of BCC and AK presents for follow-up. Last visit with Dr. Randall at [facility] in April 2021. Has now moved to [place]. Today reports scaly papule on left cheek. Present for several years. Previous treatment with liquid nitrogen with resolution but recurred. Review of Systems Constitutional: Negative for chills, diaphoresis, fever and unexpected weight change. Skin: Negative. Objective Total-body skin exam including scalp, face, lips, ears, neck, chest, back, abdomen, upper extremities including hands, nails, genitalia, lower extremities, including nails with the following specificfindings: Sites of BCC No evidence of recurrence Well delineated, uniformly pigmented small macule(s) most concentrated on photo exposed areas of face Head - Anterior (Face) (3) Erythematous papules with scale Left Leg, Right Leg Diffuse xerosis documented in this encounter Plan of Treatment Upcoming Encounters Date Type Department Care Team (Late st Contact Info) Description 01/04/2024 11:20 AM EDT Procedure Visit [facility] [address] [facility] [place] Floor 9 [place] [address] Katie Jones AUD 01/06/2024 2:00 PM EDT Appointment [facility] [address] [place] [address] 01/09/2024 2:00 PM EDT Office Visit [facility] [address] [facility] [place] 19th [address] [place] [address] Radha Coker MD [address] [place] [address] 01/10/2024 8:30 AM EDT Office Visit [facility] - Primary [facility] [address] [place] [address] Style, Sydnee Ndiaye, DO [address] [facility] [place] [address] 01/11/2024 10:00 AM EDT Office Visit [facility] - ENT & Facial Plastic Surgery [address] [facility] [address] [place] [address] Kat Rico, [place] [address] [place] [address] 01/20/2024 11:45 AM EDT Clinical Support [facility] at [facility] [address] [place] [address] Maria Eugenia Lucero, [facility] [address] [place] [address] 01/30/2024 8:40 AM EST Office Visit [facility] [address] [facility] [place] 15th Floor [address] [place] [address] Jose Monique MD [address] [facility] [place] 15th Floor, [address] [place] [address] 02/27/2024 12:50 PM EST Office Visit [facility] [address] 4 [address] [place] [address] Kellie Bowser, OD [address], [address] [facility] [place] [address] 06/19/2024 11:30 AM EDT Appointment [facility] [address] [place] [address] 06/19/2024 1:00 PM EDT Appointment [facility] [address] [place] [address] 08/21/2024 1:40 PM EDT Office Visit [facility] at [facility] [address] 3rd [place] [address] Satya Wright PA [address] [facility] 3rd [place] [address] 09/05/2024 10:30 AM EDT Office Visit [facility] [address] [place] [address] Tatiana Dominguez NP [address] [place] [address] [place] [address] documented as of this encounter Procedures Procedure Name Priority Date/Time Associated Diagnosis Comments DESTRUCTION OF LESION Routine 03/09/2022 2:03 PM EST Actinic keratosis documented in this encounter Results * Destr of lesion (03/09/2022 2:03 PM EST) Frandy Magana MD - 03/09/2022 2:03 PM EST Complexity: simple ?? Destruction method: cryotherapy ?? Informed consent: discussed and consent obtained ?? Lesion destroyed using liquid nitrogen: Yes ?? Region frozen until ice ball extended beyond lesion: Yes ?? Cryotherapy cycles: ??1 Outcome: patient tolerated procedure well with no complications ?? Additional details: ??Post liquid nitrogen care discussed Frandy Negrete MD DERM PROCEDURE ORDER CHAD documented in this encounter Visit Diagnoses Diagnosis History of basal cell carcinoma (BCC)- Primary Actinic keratosis Solar lentigo Other dyschromia Xerosis cutis Other specified disease of sebaceous glands documented in this encounter Additional Health Concerns Assessment Noted Time A fall risk assessment has been complete d for the patient 02/17/2022 8:58 AM EST documented as of this encounter
--- OUTSIDE RECORDS SUMMARY | 2023-11-14 01:06 | XMS_ITS | Encounter Summary ---
Author Organization [facility] Address [address] [place], [place], [place] [address] Phone Care Team Providers Care Machine Rope Maker Name Role Phone Unavailable Primary Care Provider Unavailabl e Reason for Visit * Reason Onset Date Comments Requesting Therapist information 03/26/2022 Encounter Details Date Type Department Care Team (Late st Contact Info) Description 03/26/2022 Telephone [facility] [phone] Vandana, Sydnee Ndiaye, DO [address] [facility] [address] [facility] [place] [address] Requesting Therapist information Social History Tobacco Use Types Packs/Day Years [...] encounter Miscellaneous Notes * Telephone Encounter - Marina Ramesh - 03/26/2022 12:43 PM EST CLINICAL CONCERN Concern / Question: Pt is calling back to get the therapist telephone number that Dr Ross recommended. Please give her a call back with updated information documented in this encounter Plan of Treatment Upcoming Encounters Date Type Department Care Team (Late st Contact Info) Description 01/04/2024 11:20 AM EDT Procedure Visit [facility] [address] [facility] [place] Floor 9 [place] [address] Katie Jones, LISA 01/06/2024 2:00 PM EDT Appointment [facility] [address] [place] [address] 01/09/2024 2:00 PM EDT Office Visit [facility] [address] [facility] [place] 19th Floor [address] [place] [address] Radha Coker MD [address] [place] [address] 01/10/2024 8:30 AM EDT Office Visit [facility] - Primary Care [address] [place] [address] Sydnee Ross, [address] [facility] [place] [address] 01/11/2024 10:00 AM EDT Office Visit [facility] - ENT & Facial Plastic Surgery [address] [facility] [address] [place] [address] Kat Rico, PATTIE [address] [place] [address] 01/20/2024 11:45 AM EDT Clinical Support [facility] [address] [facility] [place] [address] Maria Eugenia Lucero [facility] [address] [place] [address] 01/30/2024 8:40 AM EST Office Visit [facility] [address] [facility] [place] 15th [address] [place] [address] Jose Monique MD 550 [facility] [place] 15th Floor, [address] [place] [address] 02/27/2024 12:50 PM EST Office Visit [facility] [address] [place] [address] Kellie Bowser, OD [address], [address] [facility] [place] [address] 06/19/2024 11:30 AM EDT Appointment [place] [address] [address] 06/19/2024 1:00 PM EDT Appointment [place] [address] [address] 08/21/2024 1:40 PM EDT Office Visit [facility] [address] 3rd [place] [address] Satya Wright PA [address] [facility] 3rd [place] [address] 09/05/2024 10:30 AM EDT Office Visit [facility] [address] [place] [address] Tatiana Dominguez, ENTRY OPERATOR [address] [place] [address] documented as of this encounter Visit Diagnoses Not on filedocumented in this encounter Additional Health Concerns Assessment Noted Time A fall risk assessment has been complete d for the patient 03/26/2022 10:04 AM EST documented as of this encounter
--- OUTSIDE RECORDS SUMMARY | 2023-11-14 01:07 | XMS_ITS | Encounter Summary ---
Author Organization [facility] Address [facility] [place] [address] Care Team Providers Care Global Sales Director Name Role Phone Cesilia Stokes MD Primary Care Provider [phone] Encounter Details Date Type Department Care Team (Late st Contact Info) Description 05/06/2021 Orders [place] [address] Douglas Lui MD [facility] [place] [address] Pancreas cyst (Primary Dx) Social History Tobacco [...] pancreas documented in this encounter Care Teams Global Sales Director Relationship Specialty Start Date End Date Cesilia Stokes MD [address] [place] [address] PCP - General Family Medicine 01/09/21 documented as of this encounter
--- OUTSIDE RECORDS SUMMARY | 2023-11-14 01:07 | XMS_ITS | Encounter Summary ---
Author Organization [facility] [place] [address] Care Team Providers Care Jockey Valet Name Role Phone Cesilia Stokes MD Primary Care Provider [phone] Reason for Referral * Consultation (Routine) - Closed Specialty Diagnoses / Procedures Referred By Contac t Referred To Contact Endocrinology Diagnoses Osteoporosis, unspecified osteoporosis type, unspecified pathological fracture presence eCsilia Stokes MD [address] [place] [address] [facility] Endocrinology [address] [place] [phone] Referral ID Status Reason Start Date Expiration Date V isits Requested Visits Authorized [id number] Closed Consult, Test & Treat PCP Updated and/or Approved 05/01/2021 07/24/2021 12 12 Encounter Details Date Type Department Care Team (Latest Contact Info) Description 05/05/2021 Transcribe [place] [address] Cesilia Stokes MD [address] [place] [address] Osteoporosis, unspecified osteoporosis type, unspecified [...] presence documented in this encounter Care Teams Jockey Valet Relationship Specialty Start Date End Date Cesilia Stokes MD [address] [place] [address] PCP - General Family Medicine 01/09/21 documented as of this encounter
--- OUTSIDE RECORDS SUMMARY | 2023-11-14 01:07 | XMS_ITS | Encounter Summary ---
Author Organization [facility] Address [address], [place] [address] Phone Care Team Providers Care Briar Wood Sorter Name Role Phone Unavailable Primary Care Provider Unavailabl e Reason for Visit * Reason Comments Pain Pain * Consultation (Routine) - Closed Specialty Diagnoses / Procedures Referred By Farrah shook Referred To Contact Podiatry Diagnoses Onychomycosis Procedures [place] OFFICE/OUTPATIENT [facility] 60-74 MINUTES Style, Sydnee Ndiaye, DO [address] [facility] - [place] [address] Referral ID Status Reason Start Date Expiration Date V isits Requested Visits Authorized [id number] Closed Specialty Services Required 02/17/2022 02/17/2023 1 1 Encounter Details Date Type Department Care Team (Latest Contact Info) Description 03/02/2022 11:15 AM EST Office Visit [facility] - Podiatry [address] [address] Quinten Stuart, DP [address] [address] Sprain of interphalangeal joint of lesser toe of left foot, initial encounter (Primary Dx); Onychomycosis; Congenital hammer toe of both feet; Keratoderma Social History Tobacco Use Types Packs/Day Years [...] Sign Reading Time Taken Comments Blood Pressure 154/84 03/02/2022 11:12 AM EST Pulse 63 03/02/2022 11:12 AM EST Temperature - - Respiratory Rate - - Oxygen Saturation - - Inhaled Oxygen Concentration - - Weight 66.2 kg (146 lb) 03/02/2022 11:12 AM EST Height 172.7 cm (5' 8) 03/02/2022 11:12 AM EST Body Mass Index 22.2 03/02/2022 11:12 AM EST documented in this encounter Progress Notes * Quinten Stuart DPM - 03/02/2022 11:15 AM EST Images from the original note were not included. Podiatric Medicine and Surgery Provider: Quinten Stuart DPM Date: 03/02/2022 Patient: Gianna Infante Sex: female : 1945 Age: 76 y.o. Address: [address] [place], [place] [id number] Primary Care Physician: Sydnee Ross DO Referred by: Vandana Attending physician: Quinten Stuart DPM FACFAS Reason for Visit: Chief Complaint Patient presents with Right Foot - Pain Left Foot - Pain Gianna Infante is a 76 y.o. female presenting today for complaints of a sprained left fifth toe. She injured it 1 week ago. She has been taping it to the adjacent fourth toe. She is secondary concern with multiple hammertoe contractures of both feet with distal callus formations. Patient Active Problem List Diagnosis Allergic to [...] Heart murmur GERD (gastroesophageal reflux disease) Anxiety Past Surgical History: Procedure Laterality Date CATARACT EXTRACTION Bilateral 2020 CE-IOL OU TOTAL KNEE ARTHROPLASTY Bilateral 2017 and 2021 Allergies: Bee venom protein (honey bee); Fluoxetine; Estrogens, conjugated; Hymenoptera allergenic extract; Serotonin; and Wasp venom Immunization record: Immunization History Administered Date(s) Administered Influenza, Split (incl. purified surface antigen) 01/19/1993, 01/21/1994, 01/04/1995, 01/14/1996, 01/30/1997, 01/07/1998, 02/09/2001 Influenza, Unspecified 11/26/2014 Influenza, seasonal, injectable 01/25/2007, 01/16/2008, 01/16/2009, 01/09/2010, 01/25/2011 Influenza, seasonal, injectable, preservative free 01/24/2012, 01/01/2013, 03/15/2014 MMR 10/31/1991 Moderna SARS-CoV-2 Vaccination 01/17/2021, 07/16/2021 Novel [id number] 03/25/2009, 03/25/2009 Pneumococcal Polysaccharide PPV23 01/25/2011 TD (adult), 2 Lf tetanus toxoid, preservative free, adsorbed 07/27/2007 Tdap 02/13/2013 Zoster, live 03/27/2012 Current Outpatient Medications Medication Sig Dispense Refill acetaminophen (Tylenol) 500 mg tablet ascorbic kasy-pqudlsfz-jdq (Emergen-C) 1,000 mg powder effervescent in packet [...] a venous catheter. zoledronic acid/mannitol-water (RECLAST IV) No current facility-administered medications for this visit. [...] Hieu Infante Vision loss Father Hieu Infante Family Status Relation Name Status Mother Amaris Infante (Not Specified) Father Hieu Infante (Not Specified) Review of Systems Provider's Service: Physical Exam Foot and Ankle Exam: Vascular: 2/4 palpable dorsalis pedis and posterior tibial pulses bilaterally. Capillary refill time is within normal limits to all digits. Pedal hair growth is Present bilaterally. Dermatological: There are no open lesions or signs of infection noted bilaterally. There are large callus formations on the distal aspect of the second toes bilaterally. Neurological: Protective sensation is intact. Musculoskeletal: There is 5 out of 5 muscle strength to all muscle groups crossing the ankle joint bilaterally. The left fifth toe is slightly swollen. It is there is very slight pain to palpation ofthe medial aspect of the PIP joint. There are multiple hammertoe contractures evident on the second through fifth toes of both feet. Imaging: No image results found. Assessment: Diagnosis Plan 1. Sprain of interphalangeal joint of lesser toe of left foot, initial encounter 2. Onychomycosis Ambulatory referral to Podiatry 3. Congenital hammer toe of both feet 4. Keratoderma Plan: Discussed operative and conservative modes of care for the hammertoe deformities. Continue with digital taping of the fifth toe on the left foot. Follow-up in this office in 6 weeksfor further evaluation Follow-up: 6 week(s) XRs needed at follow-up: X-rays will not be necessary at follow-up Questions and concerns have been invited/addressed and the patient has a good understanding of the diagnosis, treatment plan, goals/expectations, and overall prognosis. Quinten Stuart DPM FACFAS Objective: BP 154/84 (BP Location: Right arm, Patient Position: Sitting, BP Cuff Size: Adult) Pulse 63 Ht 1.727 m (5' 8) Wt 66.2 kg (146 lb) BMI 22.20 kg/m?? Estimated body mass index is 22.2 kg/m?? as calculated from the following: Height as of this encounter: 1.727 m (5' 8). Weight as of this encounter: 66.2 kg (146 lb). ?? Underweight: BMI less than 18.5. ?? Normal weight: BMI between 18.5 and 24.9. ?? Overweight: BMI between 25 and 29.9. ?? Obese: BMI of 30 and above. documented in this encounter Plan of Treatment Upcoming Encounters Date Type Department Care Team (Late st Contact Info) Description 01/04/2024 11:20 AM EDT Procedure Visit [facility] 550 [facility] Medical Office [place] Floor 9 [place] [address] Katie Jones AUD 01/06/2024 2:00 PM EDT Appointment [facility] [address] [place] [address] 01/09/2024 2:00 PM EDT Office Visit [facility] [address] [facility] Medical Office [place] 19th Floor [address] [place] [address] Radha Coker MD [address] [place] [address] 01/10/2024 8:30 AM EDT Office Visit [facility] - Primary [facility] [address] [place] [address] Vandana, Sydnee Ndiaye DO [address] [facility] - [place] [address] 01/11/2024 10:00 AM EDT Office Visit [facility] - ENT & Facial Plastic Surgery [address] [place] [address] Kat Rico, [place] [address] [place] [address] 01/20/2024 11:45 AM EDT Clinical Support [facility] at [facility] [address] [place] [address] Maria Eugenia Lucero, [facility] [address] [place] [address] 01/30/2024 8:40 AM EST Office Visit [facility] [address] [facility] Medical Office [place] 15th Floor [address] [place] [address] Jose Monique MD 550 [facility] [place] 15th Floor, [address] [place] [address] 02/27/2024 12:50 PM EST Office Visit [facility] [address] [place] [address] Kellie Bowser, OD [address], [address] [facility] [place] [address] 06/19/2024 11:30 AM EDT Appointment [facility] [place] [address] [place] [address] 06/19/2024 1:00 PM EDT Appointment [place] [address] [facility] [address] [place] [address] 08/21/2024 1:40 PM EDT Office Visit [facility] at [facility] [address] 3rd [place] [address] Satya Wright PA [facility]5 [facility] 3rd [place] [address] 09/05/2024 10:30 AM EDT Office Visit [facility] [address] [place] [address] Tatiana Dominguez, LICENSED INSURANCE AGENT [address] [place] [address] documented as of this encounter Visit Diagnoses Diagnosis Sprain of interphalangeal joint of lesser toe of left foot, initial encounter- Primary Onychomycosis Dermatophytosis of nail 

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
--- OUTSIDE RECORDS SUMMARY | 2023-11-14 01:07 | XMS_ITS | Encounter Summary ---
Author Organization [facility] Address [facility] [place] [address] Care Team Providers Care Plastic Block Boiler Reliner Name Role Phone Cesilia Stokes MD Primary Care Provider [phone] Encounter Details Date Type Department Care Team (Late st Contact Info) Description 04/28/2021 10:43 AM EST Anesthesia [place] [address] Ridge London MD [facility] [place] [address] Annemarie Bright CRNA [facility] [place] [address] Anesthesia Record Procedure Summary Procedure Name Responsible [...] 265.11 mg Dexmedetomidine 16 mcg Benzocaine 20% Gordon 1 spray Ciprofloxacin 400 mg PHENYLephrine 80 [...] cephalic vein (lateral side of arm), right; chfz-kme-vjiytz catheter system; Anatomical Landmarks; 20 gauge; jv; [...] Procedure Summary Date: 04/28/21 Room / Location: [facility] ENDO 3 / [facility] ENDOSCOPY Anesthesia Start: 1043 Anesthesia Stop: 1123 Procedures: FINE NEEDLE ASPIRATION BIOPSY, INC US GUIDANCE; FIRST LESION (N/A ) UPPER EUS- ENDOSCOPIC ULTRASOUND (N/A ) Diagnosis: (pancreatic lesion) Surgeons: Douglas Lui MD Responsible Provider: Ridge London MD Anesthesia Type: MAC ASA Status: 2 All Anesthesia Providers: Anesthesiologist: Ridge London MD PREMIX CONCRETE BATCHER: Annemarie Bright CRNA Vitals Value Taken Time BP 110/79 04/28/21 1150 Temp Pulse Resp 16 04/28/21 1150 SpO2 99 % 04/28/21 1157 Pain Level 0 04/28/21 1150 Vitals shown include unvalidated device data. Patient Location: PACU/[facility] Level of Consciousness: Awake and Alert Pain [...] risks discussed with patient. Plan discussed with PREMIX CONCRETE BATCHER. Anesthesia Screening documented in this encounter Plan [...] mg documented in this encounter Care Teams Plastic Block Boiler Reliner Relationship Specialty Start Date End Date Cesilia Stokes MD [address] [place] [address] PCP - General Family Medicine 01/09/21 documented as of this encounter
--- OUTSIDE RECORDS SUMMARY | 2023-11-14 01:07 | XMS_ITS | Encounter Summary ---
Author Organization [facility] Address [facility] [place] [address] Care Team Providers Care School Manager Name Role Phone Cesilia Stokes MD Primary Care Provider [phone] Encounter Details Date Type Department Care Team (Late st Contact Info) Description 07/21/2021 Orders [place] [address] Juan Antonio Alvarez MD [facility] [place] [address] Social History Tobacco Use Types Packs/Day Years [...] on filedocumented in this encounter Care Teams School Manager Relationship Specialty Start Date End Date Cesilia Stokes MD [address] [place] [address] PCP - General Family Medicine 01/09/21 documented as of this encounter
--- OUTSIDE RECORDS SUMMARY | 2023-11-14 01:07 | XMS_ITS | Encounter Summary ---
Author Organization [facility] Address [place] [address] Care Team Providers Care Net Applications Developer Name Role Phone Cesilia Stokes MD Primary Care Provider [phone] Encounter Details Date Type Department Care Team (Latest Contact Info) Description 06/16/2021 12:20 PM EDT - 06/16/2021 11:59 PM EDT Hospital Encounter Mammography/[place] [address] Juan Antonio Alvarez MD [facility] [place] [address] Osteoporosis, unspecified osteoporosis type, unspecified pathological fracture [...] BMD measurements and plots are available in Appsfire under the imaging tab. Paper copies will be sent to providers without EMeshApp access. If you have received this report without the data sheet and do not have access to EMeshApp, please contact Radiology Nurseryperson at [phone] Tuesday thru Tuesday 8am-4pm. Thank you for letting us participate in the care of this patient. ??If you are a health care provider and have any questions regarding this report, please contact the number below. ??For patients who have questions please contact the health healthcare recruiter that requested your imaging first. ? Electronically signed by: Gabe Alcazar MD, [facility] ([phone]), at 06/16/2021 3:29 PM Narrative 06/16/2021 3:29 PM EDT EXAMINATION: DXA CENTRAL SPINE, HIP, AND/OR WHOLE BODY (GENERIC) CLINICAL HISTORY: 75 years Female 2 years on [employer] (as entered by ordering provider) TECHNIQUE: Scans were acquired at the lumbar spine and left hip using the FreeATM Horizon A system. L4 was excluded from [...] BMD measurements and plots are available in EOlistaunder the imaging tab. Paper copies will be sent to providers without Retail Convergence access.If you have received this report without the data sheet and do not haveaccess to EOlista, please contact Radiology [facility] at [phone] Tuesday thruFriday 8am-4pm. Thank you for letting us participate in the care of this patient. If youare a health care provider and have any questions regarding this report,please contact the number below. For patients who have questions please contactthe health healthcare recruiter that requested your imaging first. Electronically signed by: Gabe Alcazar MD, [facility]([phone]), at 06/16/2021 3:29 PM Juan Antonio Alvarez MD IMG DEXA ORDERABLES documented in this encounter Visit Diagnoses Diagnosis Osteoporosis, unspecified osteoporosis type, unspecified pathological fracture presence documented in this encounter Care Teams Net Applications Developer Relationship Specialty Start Date End Date Cesilia Stokes MD [address] [place] [address] PCP - General Family Medicine 01/09/21 documented as of this encounter
--- OUTSIDE RECORDS SUMMARY | 2023-11-14 01:07 | XMS_ITS | Encounter Summary ---
Author Organization 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 Procedures [place] OFFICE/OUTPATIENT [facility] 60-74 MINUTES Style, Sydnee Nidaye, DO [address] [facility] 110 [facility] [place] [address] Referral ID Status Reason Start Date Expiration Date V isits Requested Visits Authorized [id number] Closed Specialty Services Required 02/17/2022 02/17/2023 1 1 Encounter Details Date Type Department Care Team (Late st Contact Info) Description 03/01/2022 12:20 PM EST Office Visit [facility] [address] [place] [address] Iain Alexander MD [address] 3 [place] [address] Macular pucker, left eye; Nevus of choroid of right eye; Nevus of choroid of left eye Social History Tobacco Use [...] as of this encounter Progress Notes * Iain Alexander MD - 03/01/2022 12:20 PM EST Epiretinal membrane (ERM) left eye (OS) -03/01/22: new to Dr. Alexander. Moved from [place] to [place]. Hx of macular pucker left eye (OS). Previously followed by Dr. 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 [address] [facility] Medical Office [place] Floor 9 [place] [address] Katie Jones AUD 01/06/2024 2:00 PM EDT Appointment [facility] [address] [place] [address] 01/09/2024 2:00 PM EDT Office Visit [facility] [address] [facility] Medical Office [place] 19th Floor [address] [place] [address] Radha Coker MD [address] [place] [address] 01/10/2024 8:30 AM EDT Office Visit [facility] Primary [facility] [address] [place] [address] Style, Sydnee Ndiaye, DO [address] [facility] [place] [address] 01/11/2024 10:00 AM EDT Office Visit [facility] - ENT & Facial Plastic Surgery [address] [place] [address] Kat Rico, PATTIE [address] [place] [address] 01/20/2024 11:45 AM EDT Clinical Support [facility] at [facility] [address] [place] [address] Maria Eugenia Lucero, [facility] [address] [place] [address] 01/30/2024 8:40 AM EST Office Visit [facility] [address] [facility] Medical Office [place] 15th Floor [address] [place] [address] Jose Monique MD 550 [facility] Office [place] 15th Floor, [address] [place] [address] 02/27/2024 12:50 PM EST Office Visit [facility] [address] [facility] [address] [place] [address] Kellie Bowser, OD [address] [facility] [place] [address] 06/19/2024 11:30 AM EDT Appointment [facility] [address] [place] [address] 06/19/2024 1:00 PM EDT Appointment [facility] [address] [place] [address] 08/21/2024 1:40 PM EDT Office Visit [facility] at [address] [facility] 3rd [place] [address] Satya Wright PA [address] 3rd [place] [address] 09/05/2024 10:30 AM EDT Office Visit [facility] [address] [place] [address] Tatiana Dominguez, KASH [address] [facility] [place] [address] documented as of this encounter Procedures Procedure Name Priority Date/Time Associated Diagnosis Comments CIRRUS OCT, MACULA - OU - BOTH EYES Routine 03/01/2022 2:06 PM EST Macular pucker, left eye documented in this encounter Results * Cirrus OCT, Macula - OU - Both Eyes (03/01/2022 2:06 PM EST) Narrative CONTINUUM OPH PACS - 03/01/2022 2:06 PM EST Right Eye Quality was good. Scan locations included subfoveal, juxtafoveal. Progression has no prior data. Findings include normal observations, normal foveal contour. Left Eye Quality was good. Scan locations included subfoveal, juxtafoveal. Progression has no prior data. Findings include epiretinal membrane. Notes Trace schitic irf left eye Baseline [facility] OCT Dany Caballero MD OPHTH TOMOGRAPHY CONTINUUM OPH PACS documented in this encounter Visit Diagnoses Diagnosis Macular pucker, left eye Macular puckering of retina 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 documented in this encounter Additional Health Concerns Assessment Noted Time A fall risk assessment has been complete d for the patient 02/17/2022 8:58 AM EST documented as of this encounter
--- OUTSIDE RECORDS SUMMARY | 2023-11-14 01:07 | XMS_ITS | Encounter Summary ---
[place] [address] Care Team Providers Care Sales Product Manager Name Role Phone Cesilia Stokes MD Primary Care Provider [phone] Encounter Details Date Type Department Care Team (Late st Contact Info) Description 04/15/2022 Telephone [place] [phone] Chichi Santamaria Social History Tobacco Use Types [...] filedocumented in this encounter Care Teams Sales Product Manager Relationship Specialty Start Date End Date Cesilia Stokes MD [address] [place] [address] PCP - General Family Medicine 01/09/21 documented as of this encounter
--- OUTSIDE RECORDS SUMMARY | 2023-11-14 01:07 | XMS_ITS | Encounter Summary ---
Author Organization [facility] Address [address] [place], [place] [address] Phone Care Team Providers Care Tax Accountant Name Role Phone Style, Sydnee Ndiaye DO Primary Care Provider [phone] Encounter Details Date Type Department Care Team ([facility] Contact Info) Description 02/24/2022 Telephone PGP MSK(ORTHO/SPINE)CALL CENTER [phone] Quinten Stuart, [facility] [address] [id number] Social History Tobacco Use Types Packs/Day Years [...] suspected to have Coronavirus/COVID-19? No / Unsure 02/17/2022 8:42 AM EST documented as of this encounter Plan of Treatment Upcoming Encounters Date Type Department Care Team ([facility] Contact Info) Description 01/04/2024 11:20 AM EDT Procedure Visit [facility] [address] [facility] [place] Floor 9 [place] [address] Katie Jones AUD 01/06/2024 2:00 PM EDT Appointment [facility] [address] [place] [address] 01/09/2024 2:00 PM EDT Office [facility] [address] [facility] [place] 19th Floor [address] [place] [address] Radha Coker MD [address] [place] [address] 01/10/2024 8:30 AM EDT Office Visit [facility] [address] [place] [address] Sydnee Ross DO [address] [facility] [place] [address] 01/11/2024 10:00 AM EDT Office Visit [facility] E[facility] Fac[facility] Pl[facility] [address] [facility] [address] [place] [address] Kat Rico, PA [address] [place] [address] 01/20/2024 11:45 AM EDT Clinical Support [facility] [address] [facility] [address] [place] [address] Maria Eugenia Lucero, ORA [address] [place] [address] 01/30/2024 8:40 AM EST Office [facility] [address] [facility] [place] 15th Floor [address] [place] [address] Jose Monique MD [address] Medical Office [place] 15th Floor, [address] [place] [address] 02/27/2024 12:50 PM EST Office Visit [facility] [address] Floor 4 [address] [place] [address] Kellie Bowser, OD [address], [address] [facility] [place] [address] 06/19/2024 11:30 AM EDT Appointment [place] [address] [facility] [address] [place] [address] 06/19/2024 1:00 PM EDT Appointment [place] [address] [facility] [address] [place] [address] 08/21/2024 1:40 PM EDT Office Visit [facility] at [address] [place] [address] NE 3rd Floor [place] [id number] Satya Wright PA [address] [facility] [place] 3rd Floor [place] [id number] 09/05/2024 10:30 AM EDT Office Visit [facility] [address] [address] Tatiana Dominguez, REGULATORY AFFAIRS DIRECTOR [address] [place] [address] documented as of this encounter Visit Diagnoses Not on filedocumented in this encounter Additional Health Concerns Infection Onset Date Last Indicated Resolved Time C. difficile Rule-Out 05/16/2023 05/16/20232023 11:08 PM EST Assessment Noted Time A fall risk assessment has been complete d for the patient 02/17/2022 8:58 AM EST documented as of this encounter Care Teams Tax Accountant Relationship Specialty Start Date End Date Sydnee Ross DO [address] [facility] [address] [facility] [place] [address] PCP - General Family Medicine 01/17/23 documented as of this encounter
--- OUTSIDE RECORDS SUMMARY | 2023-11-14 01:07 | XMS_ITS | Encounter Summary ---
Author Organization [facility] Address [address], [place] [address] Phone Care Team Providers Care Hat Parts Cutter Machine Name Role Phone Unavailable Primary Care Provider Unavailabl e Encounter Details Date Type Department Care Team (Late Contact Info) Description 03/01/2022 Telephone PGP E[facility] CALL CENTER [phone] Iain Alexander MD [address] [facility] [address] [place] [address] [place] [address] Social History Tobacco Use Types Packs/Day Years [...] EDT Procedure Visit [facility] [address] [facility] Medical [facility] [place] Floor 9 [place] [address] Jones KatieLISA Johnson 01/06/2024 2:00 PM EDT Appointment [facility] [address] [place] [address] 01/09/2024 2:00 PM EDT Office Visit [facility] [address] [facility] Medical Office [place] 19th Floor [address] [place] [address] Radha Coker MD 550 [place] [address] 01/10/2024 8:30 AM EDT Office Visit [facility] [address] [place] [address] Sydnee Ross, [address] [facility] [place] [address] 01/11/2024 10:00 AM EDT Office Visit [facility] [address] [facility] [address] [place] [address] Kat Rico, PATTIE [address] [place] [address] 01/20/2024 11:45 AM EDT Clinical Support [facility] [address] [facility] [place] [address] Maria Eugenia Lucero, ORA [address] [place] [address] 01/30/2024 8:40 AM EST Office Visit [facility] [address] [facility] Medical Office [place] 15th Floor [address] [place] [address] Jose Monique MD [address] [facility] [place] 15th Floor, [address] [place] [address] 02/27/2024 12:50 PM EST Office Visit [facility] [address] [facility] [address] 4 [address] [place] [address] Kellie Bowser, OD [address] [place] [address] 06/19/2024 11:30 AM EDT Appointment [place] [address] [place] [address] 06/19/2024 1:00 PM EDT Appointment [place] [address] [place] [address] 08/21/2024 1:40 PM EDT Office Visit [facility] [place] [id number] [facility] [place] 3rd [place] [address] Satya Wright PA [address] [facility] [address] 3rd [place] [address] 09/05/2024 10:30 AM EDT Office Visit [facility] [address] [place] [address] Tatiana Dominguez, WELDING EQUIPMENT REPAIRER SUPERVISOR [address] [place] [address] documented as of this encounter Visit Diagnoses Not on filedocumented in this encounter Additional Health Concerns Assessment Noted Time A fall risk assessment has been complete d for the patient 02/17/2022 8:58 AM EST documented as of this encounter
--- OUTSIDE RECORDS SUMMARY | 2023-11-14 01:07 | XMS_ITS | Encounter Summary ---
Author Organization [facility] Address [facility] [place] [address] Care Team Providers Care Microfilm Processor Name Role Phone Cesilia Stokes MD Primary Care Provider [phone] Encounter Details Date Type Department Care Team (Late st Contact Info) Description 06/16/2021 Orders [place] [phone] Juan Antonio Alvarez MD [facility] [place] [address] Osteoporosis, unspecified osteoporosis type, unspecified pathological fracture [...] EDT) Creatinine 0.58(L) 0.70 - 1.20 mg/dL [facility] Est Glomerular Filtration Rate 90 >=60 mL/min/1. 73 m?? [facility] Comment: This patient? s estimated [...] Alvarez MD CHEMISTRY ORDERABLES Performing Organization Address City/[facility]/ZIP Co de Phone Number [facility] [place] [address] * Calcium (06/16/2021 12:16 PM EDT) Calcium 9.7 8.5 - 10.5 mg/dL [facility] Blood 06/16/2021 12:1 6 PM EDT 06/16/2021 12:28 PM EDT Narrative Resulting Agency Comment Spec In Lab Juan Antonio Alvarez MD CHEMISTRY ORDERABLES Performing Organization Address City/[facility]/ZIP Co de Phone Number [facility] [place] [address] documented in this encounter Visit Diagnoses Diagnosis Osteoporosis, unspecified osteoporosis type, unspecified pathological fracture presence documented in this encounter Care Teams Microfilm Processor Relationship Specialty Start Date End Date Cesilia Stokes MD [address] [place] [address] PCP - General Family Medicine 01/09/21 documented as of this encounter
--- OUTSIDE RECORDS SUMMARY | 2023-11-14 01:07 | XMS_ITS | Clinical Summary ---
Author Organization [facility] Address [facility] [place] [address] Care Team Providers Care Weight Engineer Name Role Phone Cesilia Stokes MD Primary Care Provider [phone] Allergies Active Allergy Reactions Criticality Noted Date Comments Allergen Bja-Ekafe-Ooliy Bee Anaphylaxis High 2021 Hymenoptera Allergenic Extract [...] Dates Next Due Moderna Covid-19 Monovalent 12Yr+ (Grease Renderer 100mcg) 07/16/2021,01/17/2021,06/13/2020, 021 Family History Medical History [...] history exists Medical Devices Implanted Type Area Special Needs Bus Driver Device Identifier Shelf Expiration Date Model / Serial / Lot Lens Iol [id number] +18.5d 6.0x13.0 Monofocal Post Biconvex ([id number]) ([employer]) - [id number] Implanted:Qty: 1 on 05/28/2020 by Jaden Garcia MD at [facility] IMPLANTS Left: Eye NOVARTIS - NOVARTIS 12/18/2024 [id number] .[id number] / [id number] / Lens Iol Sn60wf +19.0d 6.0x13.0 Monofocal Post Biconvex ([id number]) (Autoreq) - [id number] Implanted:Qty: 1 on 06/25/2020 by Jaden Garcia MD at [facility] IMPLANTS Right: Eye JAVIER Limk - JAVIER 01/09/2025 [id number].[id number] 0 / [id number] / Procedures Procedure Name Priority Date/Time [...] have access to E-, please contact Radiology [facility] at [phone] Tuesday thru Tuesday 8am-4pm. Thank you for letting us participate in the care of this patient. ??If you are a health care provider and have any questions regarding this report, please contact the number below. ??For patients who have questions please contact the health hearing care practitioner that requested your imaging first. ? Electronically signed by: Gabe Alcazar MD, [facility] ([phone]), at 06/16/2021 3:29 PM Narrative 06/16/2021 3:29 PM EDT EXAMINATION: DXA CENTRAL SPINE, HIP, AND/OR WHOLE BODY (GENERIC) CLINICAL HISTORY: 75 years Female 2 years on [employer] (as entered by ordering provider) TECHNIQUE: Scans were acquired at the lumbar spine and left hip using the [employer] Horizon A system. L4 was excluded from [...] the lumbar spine and left hip usingthe [employer] Horizon A system. L4 was excluded from [...] data sheet and do not haveaccess to [employer], please contact Radiology Human Resources Assistant at [phone] Tuesday thrriday 8am-4pm. Thank you for letting us participate in the care of this patient. If youare a health care provider and have any questions regarding this report,please contact the number below. For patients who have questions please contactthe health hearing care practitioner that requested your imaging first. Electronically signed by: Gabe Alcazar MD, [facility]([phone]), at 06/16/2021 3:29 PM Juan Antonio Alvarez [...] this patient by [facility]: NEGATIVE Electronically signed by: RAUL LIMA MD Cesilia Stokes MD IMG MAMMO ORDERABLES from Last 3 Months or Most Recently Relevant to Health Maintenance Care Teams Weight Engineer Relationship Specialty Start Date End Date Cesilia Stokes MD [address] [place] [address] PCP - General Family Medicine 01/09/21 Sydnee Ross 05/26/22
--- OUTSIDE RECORDS SUMMARY | 2023-11-14 01:07 | XMS_ITS | Encounter Summary ---
Author Organization [facility] Address [address] [place] [address], [place] [address] Phone Care Team Providers Care Marble Chip Terrazzo Worker Name Role Phone Pcp, No Assigned Primary Care Provider Unavailab le Reason for Visit * Reason Comments Chest Pain PT brought from home by [facility] [id number]. Pt c/o of chest tightness since Tuesday night. Pt had recent UTI, took abx. Pt denies taking any meds for discomfort. Pt c/o of urinary burning/freq. Urinary Frequency Encounter Details Date Type Department Care Team (Late st Contact Info) Description 12/31/2021 4:39 AM EDT - 01/01/2022 5:20 PM EDT Emergency [facility] [address] [place] [address] Katie Bergman PA [address] [facility] [place] [address] Douglas Guzman MD [address] [facility] [place] [address] Palpitations (Primary Dx); Other chest pain; Chest pain, unspecified type Discharge Disposition: DISCHARGED TO HOME OR SELF [...] suspected to have Coronavirus/COVID-19? No / Unsure 12/31/2021 12:15 AM EDT documented as of this encounter Last Filed Vital Signs Vital Sign Reading Time Taken Comments Blood Pressure 146/75 01/01/2022 4:01 PM EDT Pulse 67 01/01/2022 4:01 PM EDT Temperature 36.8 ??C (98.2 ??F) 01/01/2022 4:01 PM ED T Respiratory Rate 18 01/01/2022 4:01 PM EDT Oxygen Saturation 100% 01/01/2022 4:01 PM EDT Inhaled Oxygen Concentration - - Weight 67.1 kg (148 lb) 12/31/2021 8:45 AM EDT Height 170.2 cm (5' 7) 12/31/2021 8:45 AM EDT Body Mass Index 23.18 12/31/2021 8:45 AM EDT documented in this encounter Discharge Summaries * Landon Jung PA - 12/31/2021 12:06 AM EDT Today's Date: 01/01/22 CDU SYNOPSIS Gianna Infante is a 76 y.o. female who presents to the ED c/o chest pressure, fluttering in her chest since yesterday. Pt reports worse throughout the night. Pt reports mild SOB and lightheadednessas well. Denies hx of pressure though reports mild fluttering with caffeine in the past few months. Pt reports moving to [place] to be closer to family from [facility]. Pt reports driving the past3 days moving down to her new residence. Pt reports she was scheduled to have stress test last weekand was unable to make appt- states initially ordered as she was experiencing SOB with light exercise at her PT appts. Denies cough, fever, congestion, leg pain/swelling, n/v/d, fatigue. Pt also reports urinary frequency and mild suprapubic pressure worsening over the past few days. Patient was placed in the cdu for NST today and telemetry overnight. Upon re-evaluation this morning, pt without complaints. Admit to ED Observation - Send to CDU Ordered at: 12/31/21 1306 CDU Synopsis: plan for patient to have stress test in AM, monitor, d/c home tomorrow if no acute findings Reason for Observation: Chest Pain REVIEW OF SYSTEMS Review of Systems All other systems reviewed and are negative. Please see HPI, all other systems were reviewed and were otherwise negative. PAST MEDICAL AND SURGICAL HISTORY Patient History Past Medical History Diagnosis Date GERD (gastroesophageal reflux disease) Past Surgical History: Procedure Laterality Date KNEE SURGERY Bilateral SOCIAL HISTORY PAST FAMILY HISTORY No family history on file. ALLERGIES Allergies Allergen Reactions Bee Venom Protein (Honey Bee) Anaphylaxis Serotonin Hallucinations PHYSICAL EXAM Vitals: 12/31/21 1328 12/31/21 1913 12/31/21 2326 01/01/22 0457 BP: 137/75 145/72 134/67 144/74 BP Location: Left arm Right arm Right arm Right arm Patient Position: Sitting Lying Lying Lying Pulse: 58 62 64 61 Resp: 18 18 18 18 Temp: 36.7 ??C (98.1 ??F) 36.8 ??C (98.2 ??F) 36.6 ??C (97.9 ??F) 36.7 ??C (98.1 ??F) TempSrc: Oral Oral SpO2: 100% 98% 99% 99% Weight: Height: Physical Exam Physical Exam Constitutional: General: He is not in acute distress. Appearance: Normal appearance. HENT: Head: Normocephalic and atraumatic. Right Ear: External ear normal. Left Ear: External ear normal. Nose: Nose normal. Mouth/Throat: Mouth: Mucous membranes are moist. Eyes: Extraocular Movements: Extraocular movements intact. Pupils: Pupils are equal, round, and reactive to light. Cardiovascular: Rate and Rhythm: Normal rate and regular rhythm. Pulmonary: Effort: Pulmonary effort is normal. Breath sounds: Normal breath sounds. Abdominal: General: There is no distension. Palpations: Abdomen is soft. Tenderness: There is no abdominal tenderness. There is no guarding. Musculoskeletal: General: Normal range of motion. Cervical back: Normal range of motion and neck supple. Skin: General: Skin is warm. Neurological: General: No focal deficit present. Mental Status: He is alert and oriented to person, place, and time. Psychiatric: Mood and Affect: Mood normal. Behavior: Behavior normal. CDU COURSE Patient presented to the emergency department yesterday for further evaluation of chest discomfort and fluttering. She endorsed some dyspnea on exertion over the last several weeks. She recently relocated to [place] from [place]. Patient was evaluated in the emergency department with EKG, chest x-ray, CT scan of her chest which showed no pulmonary embolism, and blood work which was overall reassuring. She did have a urinalysis checked that showed a mild bladder infection. She was placed in the CDU for a nuclear stress test today and antibiotic therapy for her bladder infection. Ucx in process. NST showed: Normal myocardial perfusion scan without evidence of ischemia or infarction Small septal defect most consistent with breast attenuation Normal left ventricular systolic function EF 68% with normal wall motion Low risk scan Pt given one time dose of fosfomycin to cover bladder infection. Consults: None DIAGNOSIS 1. Palpitations 2. Other chest pain DISPOSITION/PLAN dc No follow-up provider specified. Discussed case with MD who agrees with plan of care. PRESCRIPTIONS New Prescriptions No medications on file The provider has reviewed the prescriptions with the patient/family and answered their questions regarding the benefits of taking the medication(s). The provider has informed the patient/family that the dispensing pharmacy will be providing a comprehensive teaching sheet for each medication prescribed. The provider has specifically discussed with the patient/family that all medications have side e ffects and may affect operating a vehicle or performing other daily functions. The patient/family was told to read and follow the recommendations on the teaching sheets provided by the dispensing pharmacy. The patient/family was told to make certain all of their medication questions/concerns were fully addressed by the pharmacist. A special precaution was provided to the patient/family regarding prescription pain relievers, anti-anxiety medications, muscle relaxants, benadryl and other medications known to make patients impaired. The patient/family was specifically told not to drive, operate heavy equipment, perform tasks requiring concentration and to seek assistance when standing or goingto the restroom so they do not fall. The patient/family verbalized an understanding of this information in its entirety and had no questions not addressed by the provider. Dragon disclaimer- portions of this record were created using voice recognition software. Occasional normal work or sound-alike substitutions may have occurred de to the inherent limitations of voicerecognition software. Please read the chart carefully and recognize using context where substitutions have occurred. documented in this encounter Medications at Time of Discharge Medication Sig Dispensed Refills Start Date End Date ascorbic lwfz-wlzxgirn-mqg (Emergen-C) 1,000 mg powder effervescent in packet Take by mouth once daily. 03/28/2019 ibuprofen 200 mg tablet Take by mouth if needed. PRN 03/28/2021 omega 3-akt-cdb-fish oil 1,000 mg (120 mg-180 mg) capsule Take by mouth once daily. 03/28/2007 polyvinyl alcohol-povidon,PF, (Refresh Classic, PF,) 1.4-0.6 % eye drops in a dropperette 03/28/2019 acetaminophen (Tylenol) 500 mg tablet 09/25/2021 04/06/2022 atorvastatin (Lipitor) 40 mg tablet 09/18/2021 02/17/2022 clotrimazole (Lotrimin) 1 % cream 11/26/2021 09/06/2023 clotrimazole (Lotrimin) 1 % vaginal cream 10/09/2021 04/06/2022 EPINEPHrine 0.15 mg/0.3 mL syringe 03/28/2021 04/06/2022 magnesium 250 mg tablet 03/28/202108/26 melatonin 0.5 mg tablet split tablet 03/28/2019 09/06/2023 pilocarpine (Pilocar) 1 % ophthalmic solution Administer 1 drop into affected eye(s). 12/19/2020 04/06/2022 zoledronic acid/mannitol-water (RECLAST IV) 06/25/2021 03/17/2022 documented as of this encounter ED Notes * Isidro Koch - 12/31/2021 7:37 PM EDT Pt aa&ox4 and reading a book. Pt denies cp or sob. Updated on plan of care. NPO after midnight for NST in AM. Pt oriented to room and instructed to call for help when needed and verbalized understanding. Personal items and call light within reach. Will cont to monitor. Isidro Koch 10/06/22 2023 * Neeta Aguirre - 12/31/2021 2:47 PM EDT Given lunch tray. Pt aox4, resting in bed Neeta German Timothy 12/31/21 1447 * Neeta Aguirre - 12/31/2021 1:39 PM EDT PT from ED via wheelchair, ambulatory with steady gait in room. Pt aox4. Lung sounds clear bilaterally. Heart sounds heard. Bowel sounds heard in all 4 quadrants. Extremities warm and dry with 2+ pulses upper and lower bilaterally. Pt has no complaints at this time. NST tomorrow. Pt NSR on tele, confirmed with summer Neeta Aguirre 12/31/21 1341 Neeta Aguirre 12/31/21 1342 * Katie Bergman PA - 12/31/2021 12:06 AM EDT CHIEF COMPLAINT Chief Complaint Patient presents with Chest Pain PT brought from home by [facility] [id number]. Pt c/o of chest tightness since Tuesday night. Pt had recent UTI, took abx. Pt denies taking any meds for discomfort. Pt c/o of urinary burning/freq. Urinary Frequency HISTORY OF PRESENT ILLNESS Gianna Infante is a 76 y.o. female who presents to the ED c/o chest pressure, fluttering in her chest since yesterday. Pt reports worse throughout the night. Pt reports mild SOB and lightheadednessas well. Denies hx of pressure though reports mild fluttering with caffeine in the past few months. [place] moving to [place] to be closer to family from [facility]. Pt reports driving the past3 days moving down to her new residence. Pt reports she was scheduled to have stress test last weekand was unable to make appt- states initially ordered as she was experiencing SOB with light exercise at her PT appts. Denies cough, fever, congestion, leg pain/swelling, n/v/d, fatigue. Pt also reports urinary frequency and mild suprapubic pressure worsening over the past few days. REVIEW OF SYSTEMS Please see HPI, all other systems were reviewed and were otherwise negative. PAST MEDICAL AND SURGICAL HISTORY Patient History Past Medical History Diagnosis Date GERD (gastroesophageal reflux disease) Past Surgical History: Procedure Laterality Date KNEE SURGERY Bilateral SOCIAL HISTORY PAST FAMILY HISTORY No family history on file. ALLERGIES Allergies Allergen Reactions Bee Venom Protein (Honey Bee) Anaphylaxis Serotonin Hallucinations PHYSICAL EXAM Blood pressure 137/75, pulse 58, temperature 36.7 ??C (98.1 ??F), resp. rate 18, height 1.702 m (5'7), weight 67.1 kg (148 lb), SpO2 100 %. General: Patient is alert, well developed in no acute distress. Skin: Warm dry and intact Head: Normocephalic, atraumatic Eyes: EOMI, normal conjunctiva ENT: Nose is normal to appearance, oral mucosa is moist, uvula is midline Neck: Supple, non tender, there's no meningismus Lungs: Clear to auscultation bilaterally Cardiovascular: Regular rate and rhythm, there's no audible murmurs Abdomen: Soft, non tender, there's no rebound, guarding or distension MSK: Full ROM of upper and lower extremities, ambulatory with no difficulty, no lower extremity swelling, 2+radial and DP pulses bilaterally Neuro: Alert and oriented x 4, normal speech Psychiatric: Cooperative and has appropriate mood and affect. LABORATORY: Abnormal Labs Reviewed COMPREHENSIVE METABOLIC PANEL - Abnormal; Notable for the following components: Result Value U:C 25 (*) All other components within normal limits URINE CULTURE C&S + COLONY COUNT IF ABNORMAL URINALYSIS - Abnormal; Notable for the following components: Leukocyte Esterase Urine Qual Moderate (*) WBC/HPF 9 (*) All other components within normal limits COMPLETE BLOOD COUNT - Abnormal; Notable for the following components: Mean Platelet Volume 8.9 (*) Red Cell Distribution Width Standard Deviation 46.8 (*) All other components within normal limits D-DIMER, QUANTITATIVE - Abnormal; Notable for the following components: D-Dimer (FEU) 3,969 (*) All other components within normal limits IMAGING CT Chest Pulmonary Embolism W IV Contrast Final Result 1. No pulmonary embolus. 2. No focal consolidation, pleural effusion, or pneumothorax. 3. Chronic-appearing compression deformities of T11 and T12 vertebral bodies. 4. Left lower lobe 5 mm pulmonary nodule. According to the Fleischner Society Guidelines for incidentally discovered solid pulmonary nodules (MacMahon et al, Radiology, 2017): Recommend correlation with prior exams if available to confirm stability. Otherwise, if patient is at low risk for lung cancer, no further followup is required; if patient is at high risk for lung cancer, recommend followupCT at 12 months. XR Chest 2 Views Pa + Lat Stnd Protocol Final Result 1. Probable emphysema/COPD. No focal consolidation. 2. Mild focal kyphosis noted within the lower thoracic spine with questionable focal height loss, although this may be projectional secondary to thoracolumbar scoliosis. Correlate with point tenderness for potential fracture The images were reviewed and interpreted by Tayo Wu MD. NM Myocardial Perfusion SPECT Multiple (Results Pending) MEDS GIVEN IN ED Medications nitroglycerin (Nitrostat) SL tablet 0.4 mg (has no administration in time range) alum-mag hydroxide-simeth (Mylanta) 200-200-20 mg/5 mL oral suspension 30 mL (has no administrationin time range) famotidine (Pepcid) tablet 20 mg (has no administration in time range) acetaminophen (Tylenol) tablet 650 mg (has no administration in time range) ondansetron (Zofran) injection 4 mg (has no administration in time range) cefTRIAXone (Rocephin)2 g in 20 mL NS (has no administration in time range) iohexol (OMNIPaque) 350 mg iodine/mL injection 100 mL (60 mL intravenous Given 12/31/21 1114) REPEAT VITALS Vitals: 12/31/21 0730 12/31/21 0845 12/31/21 1000 12/31/21 1328 BP: 150/79 142/83 137/75 BP Location: Left arm Left arm Patient Position: Lying Sitting Pulse: 62 59 60 58 Resp: 18 18 Temp: 36.7 ??C (98.1 ??F) TempSrc: SpO2: 97% 98% 99% 100% Weight: 67.1 kg (148 lb) Height: 1.702 m (5' 7) Medical Decision Making/ED Course Pt with EKG showing sinus buzz, no acute ST/T changes Trop 5- repeat was not performed initially due to length between specimens CXR negative Ddimer elevated CTA Chest with no acute findings- known compression fracture per pt Labs with normal WBC ct, no anemia, normal kidney fxn and liver fxn UA with +WBC and +leuk esterase, pending culture; small amount of the cells though patient is symptomatic; will tx Pt had stress scheduled last week at her previous state; moved this week to [place] Heart score 4 Will put in CDU for stress test in the AM, stable at this time, VSS Pt agreeable to plan Negative covid/flu/rsv DIAGNOSIS 1. Palpitations 2. Other chest pain DISPOSITION CDU/Observation No follow-up provider specified. Discussed case with MD who agrees with plan of care. PRESCRIPTIONS New Prescriptions No medications on file The provider has reviewed the prescriptions with the patient/family and answered their questions regarding the benefits of taking the medication(s). The provider has informed the patient/family that the dispensing pharmacy will be providing a comprehensive teaching sheet for each medication prescribed. The provider has specifically discussed with the patient/family that all medications have side e ffects and may affect operating a vehicle or performing other daily functions. The patient/family was told to read and follow the recommendations on the teaching sheets provided by the dispensing pharmacy. The patient/family was told to make certain all of their medication questions/concerns were fully addressed by the pharmacist. A special precaution was provided to the patient/family regarding prescription pain relievers, anti-anxiety medications, muscle relaxants, benadryl and other medications known to make patients impaired. The patient/family was specifically told not to drive, operate heavy equipment, perform tasks requiring concentration and to seek assistance when standing or goingto the restroom so they do not fall. The patient/family verbalized an understanding of this information in its entirety and had no questions not addressed by the provider. PATTIE Epperson 12/31/21 1503 * Dario Lynn MD - 12/31/2021 12:06 AM EDT CHIEF COMPLAINT Chief Complaint Patient presents with ??? Chest Pain PT brought from home by [facility] 9207. Pt c/o of chest tightness since Lina night. Pt had recent UTI, took abx. Pt denies taking any meds for discomfort. Pt c/o of urinary burning/freq. ??? Urinary Frequency HISTORY OF PRESENT ILLNESS HPI HPI PAST MEDICAL AND SURGICAL HISTORY Patient History Past Medical History Diagnosis Date ??? GERD (gastroesophageal reflux disease) Past Surgical History: Procedure Laterality Date ??? KNEE SURGERY Bilateral SOCIAL HISTORY PAST FAMILY HISTORY No family history on file. ALLERGIES Allergies Allergen Reactions ??? Bee Venom Protein (Honey Bee) Anaphylaxis ??? Serotonin Hallucinations REVIEW OF SYSTEMS Review of Systems Review of Systems PHYSICAL EXAM Physical Exam ED Triage Vitals [12/31/21 0022] Temp Heart Rate bpm Resp Rate (Total) br/min BP 36.5 ??C (97.7 ??F) 68 18 (!) 160/95 SpO2 Temp Source Heart Rate Source Patient Position 97 % Oral -- Sitting BP Location FiO2 Right arm -- Physical Exam LABORATORY: Labs Reviewed COMPREHENSIVE METABOLIC PANEL - Abnormal Result Value Sodium 142 Potassium 4.3 Chloride 106 Carbon Dioxide Level 26 Calcium Level Total 9.1 Blood Urea Nitrogen 16 Creatinine 0.64 Glucose 94 Protein Total 7.2 Albumin Level 4.3 Alkaline Phosphatase 71 Alanine Aminotransferase 38 Aspartate Aminotransferase 34 Bilirubin Total 0.5 Anion Gap 10 Calculated Osmolality 285 U:C 25 (*) Estimated GFR 87 URINE CULTURE C&S + COLONY COUNT IF ABNORMAL URINALYSIS - Abnormal Color Yellow Clarity Clear Specific [place] Urine 1.006 pH Urine Random 6.0 Protein Urine Qualitative Negative Glucose Urine Qualitative Negative Ketone Urine Qualitative Negative Blood Urine Qualitative Negative Ascorbic Acid Urine Qualitative Negative Urobilinogen Urine Qualitative <2.0 Nitrite Urine Qualitative Negative Leukocyte Esterase Urine Qual Moderate (*) Bilirubin Urine Qualitative Negative WBC/HPF 9 (*) RBC/HPF 1 Squamous Epithelial/HPF <1 COMPLETE BLOOD COUNT - Abnormal White Blood Cell 7.3 Red Blood Cell 4.31 Hemoglobin 13.7 Hematocrit 40.7 Mean Corpuscular Volume 94.4 Mean Corpuscular Hemoglobin 31.8 Mean Corpuscular Hemoglobin Concentration 33.7 Platelet 288 Mean Platelet Volume 8.9 (*) Red Cell Distribution Width Coefficient of John. 13.4 Red Cell Distribution Width Standard Deviation 46.8 (*) Auto Nucleated Red Cell Count 0 Absolute NRBC 0.0 D-DIMER, QUANTITATIVE - Abnormal D-Dimer (FEU) 3,969 (*) COVID-19/INFLUENZA/RSV BY PCR - Normal SARS-CoV-2 Negative Influenza A Negative Influenza B Negative RSV Negative HS TROPONIN-I - Normal HS Troponin-I Blaise 5 HS TROPONIN-I - Normal HS Troponin-I Blaise 4 CHEMISTRY PROFILE LIPID - Normal Cholesterol Total 154 Triglyceride 56 HDL Cholesterol 65 Non-HDL Cholesterol 89 LDL Cholesterol 78 Very Low Density Lipoprotein 11 COMPLETE BLOOD COUNT Narrative: The following orders were created for panel order Complete Blood Count. Procedure Abnormality Status --------- ------ Complete Blood Count[[id number]] Abnormal Final result Please view results for these tests on the individual orders. IMAGING: ED Wet Read - CT Chest Pulmonary Embolism W IV Contrast Final Result 1. No pulmonary embolus. 2. No focal consolidation, pleural effusion, or pneumothorax. 3. Chronic-appearing compression deformities of T11 and T12 vertebral bodies. 4. Left lower lobe 5 mm pulmonary nodule. According to the Fleischner Society Guidelines for incidentally discovered solid pulmonary nodules (MacMahon et al, Radiology, 2017): Recommend correlation with prior exams if available to confirm stability. Otherwise, if patient is at low risk for lung cancer, no further followup is required; if patient is at high risk for lung cancer, recommend followupCT at 12 months. XR Chest 2 Views Pa + Lat Stnd Protocol Final Result 1. Probable emphysema/COPD. No focal consolidation. 2. Mild focal kyphosis noted within the lower thoracic spine with questionable focal height loss, although this may be projectional secondary to thoracolumbar scoliosis. Correlate with point tenderness for potential fracture The images were reviewed and interpreted by Tayo Wu MD. NM Myocardial Perfusion SPECT Multiple (Results Pending) Radiology Final Result - No image results found. 4TH YEAR RESIDENT ED COURSE/CLINICAL IMPRESSION/MEDICAL DECISION MAKING Diagnoses as of 01/05/22 0002 Palpitations Other chest pain Chest pain, unspecified type Clinical Scoring Tool Results Radha Coma Scale 12/31/2021 Best Eye Response Spontaneous Best Verbal Response Oriented Best Motor Response Follows commands Radha Coma Scale Score 15 Medical Decision Making ADDITIONAL INFORMATION REVIEWED - ATTENDING ONLY Shane dictating CDU [id number] note. I saw this patient this morning 01/01/2022 in the CDU undergoing evaluation of chest pain she is awaiting nuclear stress test her work-up thus far has been without ischemia. For results of stress test further clinical course and disposition please refer to final CDU discharge summary Dario Lynn MD 01/05/22 0002 * Real Levin - 12/31/2021 12:06 AM EDT PT brought from home by [facility] [id number]. Pt c/o of chest tightness since Tuesday night. Pt had recent UTI, took abx. Pt denies taking any meds for discomfort. Pt c/o of urinary burning/freq. Pt travelled by car from [place] last night. Pt also c/o of SOB. documented in this encounter Miscellaneous Notes * [employer] - Katie Bergman PA - 01/01/2022 4:29 PM EDT Patient Education Table of Contents Nonspecific Chest Pain, Adult To view videos and all your education online visit, [email or web address] or scan this QR code with your smartphone. * [facility] - Katie Bergman PA - 01/01/2022 4:28 PM EDT Patient Education Table of Contents Palpitations To view videos and all your education online visit, [email or web address] or scan this QR code with your smartphone. documented in this encounter Plan of Treatment Upcoming Encounters Date Type Department Care Team (Late st Contact Info) Description 01/04/2024 11:20 AM EDT Procedure Visit [facility] [address] [facility] [place] [address] [place] [address] Katie Jones, LISA 01/06/2024 2:00 PM EDT Appointment [facility] [address] [place] [facility] [place] [address] 01/09/2024 2:00 PM EDT Office Visit [facility] [address] [facility] [place] [address] [place] [address] Radha Coker MD [address] [place] [address] 01/10/2024 8:30 AM EDT Office Visit [facility] - Primary Care [address] [place] [address] Vandana, Sydnee Ndiaye DO [address] [facility] [place] [address] 01/11/2024 10:00 AM EDT Office Visit [facility] - ENT [facility] Facial Plastic Surgery [address] [place] [address] Kat Rico, PATTIE [address] [place] [address] 01/20/2024 11:45 AM EDT Clinical Support [facility] at [facility] [address] [place] [address] Maria Eugenia Lucero, [facility] [address] [place] [address] 01/30/2024 8:40 AM EST Office Visit [facility] [address] [facility] Medical Office [place] 15th [address] [place] [address] oJse Monique MD 550 [facility] Office [place] 15th [address], [address] [place] [address] 02/27/2024 12:50 PM EST Office Visit [facility] [address] [facility] [address] [place] [id number] Kellie Bowser, OD [address] [facility] [address], [address] [facility] [place] [address] 06/19/2024 11:30 AM EDT Appointment [place] [id number] [place] [address] 06/19/2024 1:00 PM EDT Appointment [place] [address] [place] [address] 08/21/2024 1:40 PM EDT Office Visit [facility] at [address] [place] [address] 3rd [place] [address] Satya Wright PA [facility] [address] 3rd [place] [address] 09/05/2024 10:30 AM EDT Office Visit [facility] [address] [place] [address] Tatiana Dominguez, KASH [address] [facility] [place] [address] documented as of this encounter Procedures Procedure Name Priority Date/Time Associated Diagnosis Comments ECG 12-LEAD STAT 01/26/2022 5:13 PM EDT NM MYOCARDIAL PERFUSION SPECT MULTIPLE STAT 01/01/2022 11:14 AM EDT CHEMISTRY PROFILE LIPID STAT 01/01/2022 4:36 AM EDT HS TROPONIN-I STAT 12/31/2021 1:[address] CHEST PULMONARY EMBOLISM W IV CONTRAST STAT 12/31/2021 11:13 AM EDT D-DIMER, QUANTITATIVE STAT 12/31/2021 9:43 AM EDT SYMPTOMATIC COVID-19/INFLUENZA/RSV BY PCR STAT 12/31/2021 8:14 AM EDT XR CHEST 2 VIEWS PA + LAT STND PROTOCOL STAT 12/31/2021 3:02 AM EDT COMPLETE BLOOD COUNT STAT 12/31/2021 1:36 AM EDT HS TROPONIN-I STAT 12/31/2021 1:36 AM EDT URINALYSIS (UA) WITH REFLEX TO CULTURE IF ABNORMAL WBC STAT 12/31/2021 1:36 AM EDT RED TOP STAT 12/31/2021 1:36 AM EDT LIGHT BLUE TOP STAT 12/31/2021 1:36 AM EDT RAINBOW DRAW STAT 12/31/2021 1:36 AM EDT COMPLETE BLOOD COUNT STAT 12/31/2021 1:36 AM EDT COMPREHENSIVE METABOLIC PANEL STAT 12/31/2021 1:36 AM EDT documented in this encounter Results * ECG 12 lead (01/26/2022 5:13 PM EDT) Ventricular Rate 59 BPM ECG Atrial Rate 59 BPM ECG AL Interval 188 ms ECG QRSD Interval 90 ms ECG QT Interval 422 ms ECG QTC Interval 417 ms ECG P [place] 98 degrees ECG QRS [place] 68 degrees ECG T Wave [place] 52 degrees ECG 12/31/2021 12:3 4 AM EDT 01/26/2022 5:13 PM EDT Narrative ECG - 01/26/2022 5:13 PM EDT Sinus bradycardia Minimal voltage criteria for LVH, may be normal variant ( Sokolow-Manley ) Cannot rule out Anterior infarct , age undetermined Abnormal ECG No previous ECGs available Confirmed by SABRINA SCHAEFFER ([id number]) on 01/26/2022 5:13:48 PM Procedure Note Sabrina Schaeffer - 01/27/2022 Sinus bradycardia Minimal voltage criteria for LVH, may be normal variant ( Sokolow-Manley ) Cannot rule out Anterior infarct , age undetermined Abnormal ECG No previous ECGs available Confirmed by SABRINA SCHAEFFER ([id number]) on 01/26/2022 5:13:48 PM Sabrina Schaeffer ECG ORDERABLES ECG * NM Myocardial Perfusion SPECT Multiple (01/01/2022 11:14 AM EDT) BSA 1.78 m2 PACS_CPACS_ECG Target HR 122 bpm PACS_CPACS_ECG Exercise duration (min) 5.0 min PACS_CPACS_ECG Rest Nuclear Isotope Dose 12.1 mCi PACS_CPACS_ECG Stress Nuclear Isotope Dose 33.4 mCi PACS_CPACS_ECG Peak METS Achieved 7.0 METS PACS_CPACS_ECG Baseline HR 71 bpm PACS_CPACS_ECG Stress peak HR 136 bpm PACS_CPACS_ECG Max HR Percent 94 % PACS_CPACS_ECG Max Age Predicted HR 144 bpm PACS_CPACS_ECG Baseline BP 166/95 mmHg PACS_CPACS_ECG Post peak BP 193/94 mmHg PACS_CPACS_ECG TID 1.06 PACS_CPACS_ECG EF (%) 68 % PACS_CPACS_ECG Actual / Predicted METS 145.2 % PACS_CPACS_ECG Base ST Depression (mm) 0 mm PACS_CPACS_ECG Angina Index 1 PACS_CPACS_ECG Anatomical Region Laterality Modality Chest Nuclear Medicine Addenda Addendum by Thanh Virgen MD on 01/07/2022 9:48 AM EDT Normal myocardial perfusion scan without evidence of ischemia or infarction ?Small septal defect most consistent with breast attenuation Normal left ventricular systolic function EF 68% with normal wall motion Low risk scan Indication for study: chest pain Following stress testing and stress isotope administration, SPECT images of the heart were obtained. ??Subsequently, following rest isotope administration, SPECT images of the heart were obtained. Resting ECG ECG is normal. Resting ECG shows no ST-segment deviation. The ECG shows normal sinus rhythm. Stress Findings A Miguel Angel protocol stress test was performed. The patient reached stage 2 of the protocol after exercising for 5.0 min and had a maximal HR of 136 bpm (94 % of MPHR) 7.0 METS. The patient experienced non-limiting angina during the test. The test was stopped because the patient experienced fatigue. The patient achieved the target heart rate. The patient reported dyspnea and chest discomfort during the stress test. Blood pressure demonstrated a normal response and heart rate demonstrated a normal response to stress. Stress ECG no diagnostic ST changes There were no arrhythmias during stress. The ECG was not diagnostic due to resting ST-T abnormalities. Isotope Administration At rest,12.1 mCi of technetium sestamibi was administered on 01/01/2022. At peak stress,33.4 mCi of technetium sestamibi was administered on 01/01/2022. The injection was in the left antecubital fossa. Nuclear Study Quality A perfusion 1-day rest/stress protocol was performed. Overall image quality is adequate. The radiopharmaceutical dose was not extravasated. A calcium score was not generated due to other reasons (see comment). Perfusion Comments Overall image quality is adequate. LV perfusion is normal at rest and stress. There is no scintigraphic evidence of myocardial ischemia or infarction. Mild breast attenuation noted Perfusion Defect There is a small, mild-intensity, partially reversible perfusion defect in the basal anteroseptal segment(s). The defect appears to be probable artifact caused by breast attenuation. Perfusion Defect Conclusion The TID ratio is 1.06. Stress Function Defect Gated tomographic images demonstrate an ejection fraction of 68% post-stress. Perfusion Scoring Resting Summed Score: 1 Percent Normal: 1.47% Mild count reduction in the following segments: mid anteroseptal. Other segments could not be evaluated. Perfusion Scoring Stress Summed Score: 1 Percent Normal: 1.47% Mild count reduction in the following segments: mid anteroseptal. Other segments could not be evaluated. Perfusion Scores: SRS Score: 1 Percentage Abnormal: 1.47% Perfusion Scores: SSS Score: 1 Percentage Abnormal: 1.47% Perfusion Scores: SDS Score: 0 Percentage Abnormal: 0.00% Katie BLANKENSHIP CV CARDIAC NUCL EAR/PET PROCEDURES * Chemistry Profile Lipid (01/01/2022 4:36 AM EDT) Cholesterol Total 154 0 - 200 mg/dL LAB CHEMISTRY METHOD 01/01/2022 5:15 AM EDT [facility] Comment: According to NCEP ATPIII Guidelines, after a 9 to 12 hour fast: ? Less than 200 mg/dL ?Desirable ? 200-239 mg/dL ?Borderline High ? Greater than or equal to 240 mg/dL ? High Triglyceride 56 <=149 mg/dL LAB CHEMISTRY METHOD 01/01/2022 5:15 AM EDT [facility] Comment: According to NCEP ATPIII Guidelines, after a 9 to 12 hour fast: Less than 150 mg/dL ?Normal 150-199 mg/dL ?Borderline High 200-499 mg/dL ?High Greater than or equal to 500 mg/dL ? Very High HDL Cholesterol 65 23 - 92 mg/dL LAB CHEMISTRY METHOD 01/01/2022 5:15 AM EDT [facility] Comment: According to NCEP ATPIII Guidelines, after a 9 to 12 hour fast: Less than 40 mg/dL ? Low Greater than or equal to 60 mg/dL ?High HDL Cholesterol >/= 60 mg/dL counts as a negative risk factor: ??Its presence removes one risk factor from the total count. Non-HDL Cholesterol 89 <=129 mg/dL LAB CHEMISTRY METHOD 01/01/2022 5:15 AM EDT [facility] Comment: If LDL Goal is: ? Non-HDL Goal should be: < 160 mg/dL ? < 190 mg/dL < 130 mg/dL ? < 160 mg/dL < 100 mg/dL ? < 130 mg/dL < 70 ??mg/dL ? < 100 mg/dL LDL Cholesterol 78 <=99 mg/dL LAB CHEMISTRY METHOD 01/01/2022 5:15 AM T [facility] Comment: According to NCEP ATPIII Guidelines, [...] be ordered separately. Very Low Density Lipoprotein 11 <=29 mg/dL LAB CHEMISTRY METHOD 01/01/2022 5:15 AM EDT [facility] Blood Venous blood specimen / Unknown Venipuncture / Unknown 01/01/2022 4:36 AM EDT 01/01/2022 4:40 AM EDT Katie BLANKENSHIP LAB BLOOD ORDER CHAD [facility] [address] [place] [address] * HS Troponin-I (12/31/2021 1:32 PM EDT) Pathologist [facility] HS Troponin-I Blaise 4 <=14 ng/L LAB CHEMISTRY METHOD 12/31/2021 2:11 PM EDT [facility] Comment: High-sensitivity Troponin-I (HS Troponin-I) results should be interpreted in light of the total clinical presentation of the patient, including: symptoms, clinical history, ECG findings, data from additional tests, and other appropriate information.?? An elevated HS Troponin-I level alone is not sufficient to diagnose myocardial Infarction.?? Other conditions resulting in myocardial injury can cause elevated troponin levels.?? Serial sampling is recommended to detect the temporal rise and/or fall of troponin levels characteristic of myocardial Infarction. Troponin results differ between methods due to selection of testing instrumentation. Do not use results between different [facility] interchangeably. Potential interferences: human anti-animal antibodies, rheumatoid factor, fibrin, alkaline phosphatase above 400 U/L, asfotase chris (i.e. Strensiq). Blood Venous blood specimen / Unknown Venipuncture / Unknown 12/31/2021 1:32 PM EDT 12/31/2021 1:39 PM EDT Katie BLANKENSHIP LAB BLOOD ORDER CHAD [facility] [address] [place] [address] * CT Chest Pulmonary Embolism W IV Contrast (12/31/2021 11:13 AM EDT) Anatomical Region Laterality Modality Chest Computed Tomogra phy 12/31/2021 12:1 5 PM EDT Impressions 12/31/2021 12:31 PM EDT 1. ??No pulmonary embolus. 2. ??No focal consolidation, pleural effusion, or pneumothorax. 3. ??Chronic-appearing compression deformities of T11 and T12 vertebral bodies. 4. ??Left lower lobe 5 mm pulmonary nodule. ??According to the Fleischner Society Guidelines for incidentally discovered solid pulmonary nodules (MacMahon et al, Radiology, 2017): ??Recommend correlation with prior exams if available to confirm stability. Otherwise, if patient is at low risk for lung cancer, no further followup is required; if patient is at high risk for lung cancer, recommend followup CT at 12 months. ?? Narrative 12/31/2021 12:31 PM EDT EXAM: CT CHEST PULMONARY EMBOLISM W IV CONTRAST CLINICAL INDICATION: Postive ddimer, SOB. Shortness of breath. TECHNIQUE: Written informed consent was obtained. Non-gated spiral axial images of the chest were obtained with intravenous contrast according to a pulmonary embolism protocol. 3D reconstructions with MIP images were performed. There were no immediate complications reported. COMPARISON: None. FINDINGS: VASCULATURE: Artifact related to cardiac motion limits evaluation of adjacent subsegmental pulmonary arteries in the lingula and left lower lobe. Contrast opacification of the pulmonary arterial system: ??Diagnostic to the: subsegmental level. ?? No evidence of pulmonary artery filling defects within these limitations. No evidence of right heart strain. The thoracic aorta is unremarkable without obvious dissection. No significant coronary artery calcifications. SUPPORT DEVICES: None. MEDIASTINUM: The heart is within normal limits in size. No pericardial effusion. The visualized portion of the thyroid is unremarkable. LYMPH NODES: No pathologically enlarged lymph nodes. AIRWAYS/LUNGS/PLEURA: The central airways are patent. Subsegmental atelectasis in the lung bases. 5 mm noncalcified nodule in the left lower lobe (series 5, image 161). No focal consolidation, pleural effusion, or pneumothorax. VISUALIZED ABDOMEN: Subcentimeter hypodensities in the liver, too small to characterize. BONES/SOFT TISSUES: Chronic appearing compression deformities of T11 and T12 vertebral bodies with up to approximately 40% and 50% height loss respectively. Procedure Note Terence Murphy MD - 12/31/2021 EXAM: CT CHEST PULMONARY EMBOLISM W IV CONTRAST CLINICAL INDICATION: Postive ddimer, SOB. Shortness of breath. TECHNIQUE: Written informed consent was obtained. Non-gated spiral axialimages of the chest were obtained with intravenous contrast according to apulmonary embolism protocol. 3D reconstructions with MIP images wereperformed. There were no immediate complications reported. COMPARISON: None. FINDINGS: VASCULATURE: Artifact related to cardiac motion limits evaluation of adjacentsubsegmental pulmonary arteries in the lingula and left lower lobe. Contrast opacification of the pulmonary arterial system: Diagnostic tothe: subsegmental level. No evidence of pulmonary artery filling defects within these limitations.No evidence of right heart strain. The thoracic aorta is unremarkable without obvious dissection. No significant coronary artery calcifications. SUPPORT DEVICES: None. MEDIASTINUM: The heart is within normal limits in size. No pericardialeffusion. The visualized portion of the thyroid is unremarkable. LYMPH NODES: No pathologically enlarged lymph nodes. AIRWAYS/LUNGS/PLEURA: The central airways are patent. Subsegmental atelectasis in the lung bases. 5 mm noncalcified nodule inthe left lower lobe (series 5, image 161). No focal consolidation, pleuraleffusion, or pneumothorax. VISUALIZED ABDOMEN: Subcentimeter hypodensities in the liver, too small tocharacterize. BONES/SOFT TISSUES: Chronic appearing compression deformities of T11 andT12 vertebral bodies with up to approximately 40% and 50% height lossrespectively. IMPRESSION: 1. No pulmonary embolus. 2. No focal consolidation, pleural effusion, or pneumothorax. 3. Chronic-appearing compression deformities of T11 and T12 vertebralbodies. 4. Left lower lobe 5 mm pulmonary nodule. According to the [facility] Guidelines for incidentally discovered solid pulmonary nodules(MacMahon et al, Radiology, 2017): Recommend correlation with prior examsif available to confirm stability. Otherwise, if patient is at low riskfor lung cancer, no further followup is required; if patient is at highrisk for lung cancer, recommend followup CT at 12 months. Katie BLANKENSHIP [facility]ED[facility] * (ABNORMAL) D-dimer, quantitative (12/31/2021 9:43 AM EDT) [facility] D-Dimer (FEU) 3,969(H) <=574 ng/mL LAB COAGULATION METHOD 12/31/2021 10:10 AM EDT [facility] Comment: All D-Dimer results are reported in FEU units (to convert to DDU, divide the result by 2). For exclusion of DVT and PE, this assay has been FDA-approved using a cut-off of <500 ng/mL FEU. Please note that the reference range for 120 normal individuals tested at [facility] is <=574 ng/mL FEU. ?? For patients older than 50, age-adjusted cut-offs for exclusion of PE have been advocated (derived by multiplying the patients age by 10, as shown in table below; Monty et al, LIV 311:3416-2168;2014;doi.10.1001/LIV.2014.2135). The use of age-adjusted cut-offs with this assay has not been FDA-approved.?? Patient's Age?Threshold (to rule out pulmonary embolism) <=50?500 ng/mL FEU 60?600 ng/mL FEU 70?700 ng/mL FEU 80?800 ng/mL FEU Blood Venous blood specimen / Unknown Venipuncture / Unknown 12/31/2021 9:43 AM EDT 12/31/2021 9:59 AM EDT Katie BLANKENSHIP LAB BLOOD ORDER CHAD Performing Organization Address City/State/[facility] Co de Phone Number [facility] [address] [place] [address] * COVID-19/Influenza/RSV by PCR (12/31/2021 8:14 AM EDT) SARS-CoV-2 Negative Negative GENEXPERT GX-XVI 12/31/2021 10:23 AM EDT [facility] Influenza A Negative Negative GENEXPERT GX-XVI 12/31/2021 10:23 AM EDT [facility] Influenza B Negative Negative GENEXPERT GX-XVI 12/31/2021 10:23 AM EDT [facility] RSV Negative Negative GENEXPERT GX-XVI 12/31/2021 10:23 AM EDT [facility] Swab Nasopharyngeal structure / Unknown Non-blood Collection / Unknown 12/31/2021 8:14 AM EDT 12/31/2021 8:29 AM EDT Katie BLANKENSHIP LAB MICROBIOLOG Y - GENERAL ORDERABLES [facility] [address] [place] [address] * XR Chest 2 Views Pa + Lat Stnd Protocol (12/31/2021 3:02 AM EDT) Anatomical Region Laterality Modality Chest Digital Radiogra phy 12/31/2021 3:07 AM EDT Impressions 12/31/2021 3:36 AM EDT 1. Probable emphysema/COPD. No focal consolidation. 2. Mild focal kyphosis noted within the lower thoracic spine with questionable focal height loss, although this may be projectional secondary to thoracolumbar scoliosis. Correlate with point tenderness for potential fracture The images were reviewed and interpreted by aTyo Wu MD. Narrative 12/31/2021 3:36 AM EDT EXAM: XR CHEST 2 VIEWS PA + LAT STND PROTOCOL CLINICAL INDICATION: SOB. ESRC.4.6.1 COMPARISON: None FINDINGS: Support Devices: None Lungs/Pleura: No pneumothorax. Lungs are clear. No pleural effusion. Flattening of the diaphragm with apparent elongation of the AP chest diameter. Heart/Mediastinum: Normal Bones/Soft tissues: Mild S-shaped curvature of the thoracolumbar spine. Mild focal kyphosis noted within the lower thoracic spine with questionable focal height loss. Procedure Note Tayo Wu MD - 12/31/2021 EXAM: XR CHEST 2 VIEWS PA + LAT STND PROTOCOL CLINICAL INDICATION: SOB. ESRC.4.6.1 COMPARISON: None FINDINGS: Support Devices: None Lungs/Pleura: No pneumothorax. Lungs are clear. No pleural effusion.Flattening of the diaphragm with apparent elongation of the AP chestdiameter. Heart/Mediastinum: Normal Bones/Soft tissues: Mild S-shaped curvature of the thoracolumbar spine.Mild focal kyphosis noted within the lower thoracic spine withquestionable focal height loss. IMPRESSION: 1. Probable emphysema/COPD. No focal consolidation. 2. Mild focal kyphosis noted within the lower thoracic spine withquestionable focal height loss, although this may be projectionalsecondary to thoracolumbar scoliosis. Correlate with point tenderness forpotential fracture The images were reviewed and interpreted by Tayo Wu MD. Sabrina Schaeffer IMG XR PROCEDURES * (ABNORMAL) Complete Blood Count (12/31/2021 1:36 AM EDT) Pathologist [facility] White Blood Cell 7.3 4.0 - 10.0 10E3/mcL LAB HEMATOLOGY METHOD 12/31/2021 2:00 AM EDT [facility] Red Blood Cell 4.31 3.93 - 5.22 10E6/mcL LAB HEMATOLOGY METHOD 12/31/2021 2:00 AM EDT [facility] Hemoglobin 13.7 11.4 - 14.4 gm/dL LAB HEMATOLOGY METHOD 12/31/2021 2:00 AM EDT [facility] Hematocrit 40.7 33.3 - 41.4 % LAB HEMATOLOGY METHOD 12/31/2021 2:00 AM EDT [facility] Mean Corpuscular Volume 94.4 79.4 - 94.8 fL LAB HEMATOLOGY METHOD 12/31/2021 2:00 AM EDT [facility] Mean Corpuscular Hemoglobin 31.8 25.6 - 32.2 pg LAB HEMATOLOGY METHOD 12/31/2021 2:00 AM EDT [facility] Mean Corpuscular Hemoglobin Concentration 33.7 30.0 - 36.0 gm/dL LAB HEMATOLOGY METHOD 12/31/2021 2:00 AM EDT [facility] Platelet 288 150 - 400 10E3/mcL LAB HEMATOLOGY METHOD 12/31/2021 2:00 AM EDT [facility] Mean Platelet Volume 8.9(L) 9.4 - 12.3 fL LAB HEMATOLOGY METHOD 12/31/2021 2:00 AM EDT [facility] Red Cell Distribution Width Coefficient of John. 13.4 11.7 - 14.4 % LAB HEMATOLOGY METHOD 12/31/2021 2:00 AM EDT [facility] Red Cell Distribution Width Standard Deviation 46.8(H) 35.1 - 43.9 fL LAB HEMATOLOGY METHOD 12/31/2021 2:00 AM EDT [facility] Auto Nucleated Red Cell Count 0 % LAB HEMATOLOGY METHOD 12/31/2021 2:00 AM EDT [facility] Absolute NRBC 0.0 0.0 - 0.0 10E3/mcL LAB HEMATOLOGY METHOD 12/31/2021 2:00 AM EDT [facility] Blood Venous blood specimen / Unknown Venipuncture / Unknown 12/31/2021 1:36 AM EDT 12/31/2021 1:57 AM EDT Sabrina Schaeffer LAB BLOOD ORDERABLES Performing Organization Address City/[facility]/[place]IP [place] [address] * Red Top (12/31/2021 1:36 AM EDT) Extra Tube HOLD SPECIMEN 12/31/2021 4:00 AM EDT [facility] Blood Venous blood specimen / Unknown Venipuncture / Unknown 12/31/2021 1:36 AM EDT 12/31/2021 2:23 AM EDT Sabrina Schaeffer LAB BLOOD ORDERABLES [facility] [address] [place] [address] * Light Blue Top (12/31/2021 1:36 AM EDT) Extra Tube HOLD SPECIMEN 12/31/2021 4:00 AM EDT [facility] Blood Venous blood specimen / Unknown Venipuncture / Unknown 12/31/2021 1:36 AM EDT 12/31/2021 2:23 AM EDT Sabrina Schaeffer LAB BLOOD ORDERABLES [facility] [address] [place] [id number] * (ABNORMAL) Urine Culture C&S + [place] Count if Abnormal Urinalysis (12/31/2021 1:36 AM EDT) Color Yellow Colorless, Straw, Yellow LAB URINALYSIS - AUTOMATED METHOD 12/31/2021 2:49 AM EDT [facility] Clarity Clear Clear LAB URINALYSIS - AUTOMATED METHOD 12/31/2021 2:49 AM EDT [facility] Specific [place] Urine 1.006 1.005 - 1.030 LAB URINALYSIS - AUTOMATED METHOD 12/31/2021 2:49 AM EDT [facility] pH Urine Random 6.0 5.0, 6.0, 7.0, 8.0 LAB URINALYSIS - AUTOMATED METHOD 12/31/2021 2:49 AM EDT [facility] Protein Urine Qualitative Negative Negative mg/dL LAB URINALYSIS - AUTOMATED METHOD 12/31/2021 2:49 AM EDT [facility] Glucose Urine Qualitative Negative Negative mg/dL LAB URINALYSIS - AUTOMATED METHOD [facility] Ketone Urine Qualitative Negative Negative mg/dL LAB URINALYSIS - AUTOMATED METHOD 12/31/2021 2:49 AM EDT [facility] Blood Urine Qualitative Negative Negative LAB URINALYSIS - AUTOMATED METHOD 12/31/2021 2:49 AM EDT [facility] Ascorbic Acid Urine Qualitative Negative Negative LAB URINALYSIS - AUTOMATED METHOD [facility]/31/2021 [facility] Comment:A positive Ascorbic Acid may interfere with the detection of blood, glucose, nitrite, and bilirubin. Urobilinogen Urine Qualitative <2.0 <2.0, 2.0 mg/dL mg/dL LAB URINALYSIS - AUTOMATED METHOD 12/31/2021 2:49 AM EDT [facility] Nitrite Urine Qualitative Negative Negative LAB URINALYSIS - AUTOMATED METHOD 12/31/2021 2:49 AM EDT [facility] Leukocyte Esterase Urine Qual Moderate(A) Negative LAB URINALYSIS - AUTOMATED METHOD 12/31/2021 2:49 AM EDT [facility] Bilirubin Urine Qualitative Negative Negative LAB URINALYSIS - AUTOMATED METHOD 12/31/2021 2:49 AM EDT [facility] WBC/HPF 9(H) <=5 /HPF LAB URINALYSIS - AUTOMATED METHOD 12/31/2021 2:49 AM EDT [facility] RBC/HPF 1 <=2 /HPF LAB URINALYSIS - AUTOMATED METHOD 12/31/2021 2:49 AM EDT [facility] Squamous Epithelial/HPF <1 <=5 /HPF LAB URINALYSIS - AUTOMATED METHOD 12/31/2021 2:49 AM EDT [facility] Urine Urine specimen obtained by clean catch procedure / Unknown Non-blood Collection / Unknown 12/31/2021 1:36 AM EDT 12/31/2021 2:15 AM EDT Sabrina Schaeffer LAB URINE ORDERABLES [facility] [address] [place] [address] * (ABNORMAL) Comprehensive Metabolic Panel (12/31/2021 1:36 AM EDT) Sodium 142 136 - 145 mmol/L LAB CHEMISTRY METHOD 12/31/2021 2:50 AM EDT [facility] Potassium 4.3 3.5 - 5.1 mmol/L LAB CHEMISTRY METHOD 12/31/2021 2:50 AM EDT [facility] Chloride 106 98 - 107 mmol/L LAB CHEMISTRY METHOD 12/31/2021 2:50 AM EDT [facility] Carbon Dioxide Level 26 23 - 29 mmol/L LAB CHEMISTRY METHOD 12/31/2021 2:50 AM EDT [facility] Calcium Level Total 9.1 8.6 - 10.3 mg/dL LAB CHEMISTRY METHOD 12/31/2021 2:50 AM [facility] Blood Urea Nitrogen 16 7 - 25 mg/dL LAB CHEMISTRY [facility] Creatinine 0.64 0.60 - 1.20 mg/dL LAB CHEMISTRY METHOD 12/31[facility]2021 [facility] Glucose 94 70 - 105 mg/dL LAB CHEMISTRY METHOD 12/31/2021 2:50 AM [facility] Comment: Random Glucose* Diabetes is diagnosed at blood glucose of greater than or equal to 200 mg/dL Fasting Glucose* Normal: less than 100 mg/dL Prediabetes: 100 mg/dl to 125 mg/dL Diabetes: 126 mg/dL or higher *ADA guidelines Protein Total 7.2 6.4 - 8.9 gm/dL LAB CHEMISTRY METHOD 12/31/2021 2:50 AM [facility] Albumin Level 4.3 3.5 - 5.7 gm/dL LAB CHEMISTRY METHOD 12/31/2021 2:50 AM [facility] Alkaline Phosphatase 71 34 - 104 unit/L LAB CHEMISTRY METHOD 12/31/2021 2:50 AM [facility] Alanine Aminotransferase 38 7 - 52 unit/L LAB CHEMISTRY METHOD 12/31/2021 2:50 AM [facility] Aspartate Aminotransferase 34 13 - 39 unit/L LAB CHEMISTRY METHOD 12/31/2021 2:50 AM [facility] Total Bilirubin 0.5 0.3 - 1.0 mg/dL LAB CHEMISTRY METHOD 12/31/2021 2:50 AM [facility] Anion Gap 10 2 - 11 mmol/L LAB CHEMISTRY METHOD 12/31/2021 [facility] Calculated Osmolality 285 275 - 295 mOsm/kg LAB CHEMISTRY METHOD 12/31/2021 2:50 AM EDT [facility] U:C 25(H) 7 - 21 LAB CHEMISTRY METHOD 12/31/2021 2:50 AM EDT [facility] Estimated GFR 87 >=60 mL/min/1. 73m2 LAB CHEMISTRY METHOD 12/31/2021 2:50 AM EDT [facility] Comment: The eGFR is [...] 1. Based on review of evidence, the [facility] Clinical Practice [place] made the decision to stop reporting eGFR by race effective 09/03/2020. Blood Venous blood specimen / Unknown Venipuncture / Unknown 12/31/2021 1:36 AM EDT 12/31/2021 2:50 AM EDT Sabrina Schaeffer LAB BLOOD ORDERABLES [facility] [address] [place] [address] * HS Troponin-I (12/31/2021 1:36 AM EDT) HS Troponin-I Blaise 5 <=14 ng/L LAB CHEMISTRY METHOD 12/31/2021 4:48 AM EDT [facility] Comment: High-sensitivity Troponin-I (HS Troponin-I) results should be interpreted in light of the total clinical presentation of the patient, including: symptoms, clinical history, ECG findings, data from additional tests, and other appropriate information.?? An elevated HS Troponin-I level alone is not sufficient to diagnose myocardial Infarction.?? Other conditions resulting in myocardial injury can cause elevated troponin levels.?? Serial sampling is recommended to detect the temporal rise and/or fall of troponin levels characteristic of myocardial Infarction. Troponin results differ between methods due to selection of testing instrumentation. Do not use results between different [facility] interchangeably. Potential interferences: human anti-animal antibodies, rheumatoid factor, fibrin, alkaline phosphatase above 400 U/L, asfotase chris (i.e. Strensiq). Blood Venous blood specimen / Unknown Venipuncture / Unknown 12/31/2021 1:36 AM EDT 12/31/2021 2:50 AM EDT Sabrina Schaeffer LAB BLOOD ORDERABLES [facility] [address] [place] [address] documented in this encounter Visit Diagnoses Diagnosis Palpitations- Primary Chest pain, unspecified type documented in this encounter Administered Medications Inactive Administered Medications - up to 3 most recent administrations Medication Order MAR Action Action Date Dose Rate Site cefTRIAXone (Rocephin)2 g in 20 mL NS 2 g, intravenous, Once, On Yael 12/31/21 at 1335, For 1 dose, Reconstitute each vial with 10 mL normal saline to give cefTRIAXone 100 mg/mL. Shake well after reconstitution. Give IV push over 5 minutes., Suspected Indication (Select all that apply): Urinary Tract Infection Given 12/31/2021 6:48 PM EDT 2 g fosfomycin (Monurol) packet 3 g 3 g, oral, Once, On Tue01/01/22 at 1225, For 1 dose, Suspected Indication (Select all that apply): Urinary Tract Infection, [facility] Restricted Agent - Authorizing Provider: shane Given 01/01/2022 12:36 PM EDT 3 g iohexol (OMNIPaque) 350 mg iodine/mL injection 100 mL 100 mL, intravenous, Once in imaging, Starting on Yael 12/31/21 at 1114, For 1 dose Given 12/31/2021 11:14 AM EDT 60 mL technetium Tc-99m sestamibi (Cardiolite) radio-isotope injection 12.1 millicurie 12.1 millicurie, intravenous, Once, On Tue01/01/22 at 0850, For 1 dose Given 01/01/2022 8:45 AM EDT 12.1 millicuries Left Antecubital technetium Tc-99m sestamibi (Cardiolite) radio-isotope injection 33 millicurie 33 millicurie (rounded from 33.4 millicurie), intravenous, Once in imaging, Starting on Tue01/01/22 at 1135, For 1 dose Given 01/01/2022 10:00 AM EDT 33 millicuries Left Antecubital documented in this encounter Active and Recently Administered Medications Times are shown in EDT. Scheduled Medication Order 12/30/2021 12/31/2021 01/01/2022 cefTRIAXone (Rocephin)2 g in 20 mL NS (COMPLETED) 2 g, intravenous, Once, On Yael 12/31/21 at 1335, For 1 dose, Reconstitute each vial with 10 mL normal saline to give cefTRIAXone 100 mg/mL. Shake well after reconstitution. Give IV push over 5 minutes., Suspected Indication (Select all that apply): Urinary Tract Infection 1848 (Given - Provider: Neeta Aguirre - Comment: two nurse check with overide by RUSTAM Arrington) fosfomycin (Monurol) packet 3 g (COMPLETED) 3 g, oral, Once, On Tue01/01/22 at 1225, For 1 dose, Suspected Indication (Select all that apply): Urinary Tract Infection, [facility] Restricted Agent - Authorizing Provider: shane 1236 (Given - Provid er: Yissel Hodge) iohexol (OMNIPaque) 350 mg iodine/mL injection 100 mL (COMPLETED) 100 mL, intravenous, Once in imaging, Starting on Yael 12/31/21 at 1114, For 1 dose 1114 (Given - Provider: Natasha Ford) technetium Tc-99m sestamibi (Cardiolite) radio-isotope injection 12.1 millicurie (COMPLETED) 12.1 millicurie, intravenous, Once, On Tue01/01/22 at 0850, For 1 dose 0845 (Given - Provid er: Silvio Gray - Comment: 1st dose) technetium Tc-99m sestamibi (Cardiolite) radio-isotope injection 33 millicurie (COMPLETED) 33 millicurie (rounded from 33.4 millicurie), intravenous, Once in imaging, Starting on Tue01/01/22 at 1135, For 1 dose 1000 (Given - Provid er: Maria Elena June) PRN Medication Order 12/30/2021 12/31/2021 01/01/2022 acetaminophen (Tylenol) tablet 650 mg 650 mg, oral, Every 6 hours PRN, mild pain, Starting on Yael 12/31/21 at 1301, Avoid >3 Gms acetaminophen/day alum-mag hydroxide-simeth (Mylanta) 200-200-20 mg/5 mL oral suspension 30 mL 30 mL, oral, Every 6 hours PRN, indigestion, heartburn, Starting on Yael 12/31/21 at 1301 famotidine (Pepcid) tablet 20 mg 20 mg, oral, Daily PRN, indigestion, heartburn, Starting on Yael 12/31/21 at 1301 nitroglycerin (Nitrostat) SL tablet 0.4 mg 0.4 mg, sublingual, Every 5 min PRN, chest pain, Starting on Yael 12/31/21 at 1301, May administer up to 3 doses per episode. ondansetron (Zofran) injection 4 mg 4 mg, intravenous, Every 8 hours PRN, nausea, vomiting, Starting on Yael 12/31/21 at 1301, No doses greater than 8 mg IV or PO should be given. documented in this encounter Care Teams Marble Chip Terrazzo Worker Relationship Specialty Start Date End Date Pcp, No Assigned PCP - General 12/31/21 02/23/22 documented as of this encounter
--- OUTSIDE RECORDS SUMMARY | 2023-11-14 01:07 | XMS_ITS | Encounter Summary ---
Author Organization [facility] Address [address], [place] [address] Phone Care Team Providers Care Deaf Teacher Name Role Phone Pcp, No Assigned Primary Care Provider Unavailab le Encounter Details Date Type Department Care Team (Latest Contact Info) Description 01/26/2022 5:13 PM EDT - 01/26/2022 11:59 PM EDT Hospital Encounter [place] [id number] Discharge Disposition: DISCHARGED TO HOME OR SELF [...] Dispensed Refills Start Date End Date ascorbic isdx-rndukavh-hdq (Emergen-C) 1,000 mg powder effervescent in packet Take by mouth once daily. 03/28/2019 ibuprofen 200 mg tablet Take by mouth if needed. PRN 03/28/2021 omega 3-xpc-bud-fish oil 1,000 mg (120 mg-180 mg) capsule [...] 06/25/2021 03/17/2022 documented as of this encounter Plan of Treatment Upcoming Encounters Date Type Department Care Team (Late st Contact Info) Description 01/04/2024 11:20 AM EDT Procedure Visit [facility] [address] [facility] Medical Office [place] Floor 9 [place] [address] Katie Jones AUD 01/06/2024 2:00 PM EDT Appointment [facility] [address] [place] [address] 01/09/2024 2:00 PM EDT Office Visit [facility] [address] [facility] Medical Office [place] 19th Floor [address] [place] [address] Radha Coker MD [address] [place] [address] 01/10/2024 8:30 AM EDT [facility] [place] [address] [facility] [address] [place] [address] Maylin Rosssa Zelda, DO [address] [facility] [place] [address] 01/11/2024 10:00 AM EDT Office Visit [facility] [address] [place] [address] Kat Rico, PATTIE [address] [place] [address] 01/20/2024 11:45 AM EDT Clinical Support [facility] [address] [place] [address] Maria Eugenia Lucero, [facility] [address] [place] [address] 01/30/2024 8:40 AM EST Office Visit [facility] [address] [facility] [place] 15th [address] [place] [address] Jose Monique MD [address] [facility] Office [place] 15th Floor, [address] [place] [address] 02/27/2024 12:50 PM EST Office Visit [facility] [address] 4 [address] [place] [phone] Kellie Bowser, OD [address], [address] [facility] [place] [address] 06/19/2024 11:30 AM EDT Appointment [facility] [address] [place] [address] 06/19/2024 1:00 PM EDT Appointment [facility] [address] [place] [address] 08/21/2024 1:40 PM EDT Office Visit [facility] at [address] [facility] [address] 3rd Floor [place], [place] [id number] Satya Wright PA [address] 3rd [place] [address] 09/05/2024 10:30 AM EDT Office Visit [facility] [address] [place] [address] Tatiana Dominguez NP [address] [place] [address] documented as of this encounter Procedures Procedure Name Priority Date/Time Associated Diagnosis Comments ECG 12-LEAD STAT 01/26/2022 5:13 PM EDT documented in this encounter Results * ECG 12 lead (01/26/2022 5:13 PM EDT) Ventricular Rate 59 BPM ECG Atrial Rate 59 BPM ECG MS Interval 188 ms ECG QRSD Interval 90 ms ECG QT Interval 422 ms ECG QTC Interval 417 ms ECG P Wildwood 98 degrees ECG QRS [place] 68 degrees ECG T Wave [place] 52 degrees ECG 12/31/2021 12:3 4 AM [...] 5:13:48 PM Sabrina Schaeffer ECG ORDERABLES ECG documented in this encounter Visit Diagnoses Not on filedocumented in this encounter Care Teams Deaf Teacher Relationship Specialty Start Date End Date Pcp, No Assigned PCP - General 12/31/21 02/23/22 documented as of this encounter
--- OUTSIDE RECORDS SUMMARY | 2023-11-14 01:07 | XMS_ITS | Encounter Summary ---
[place] [address] Care Team Providers Care Assistant Project Engineer Name Role Phone Cesilia Stokes MD Primary Care Provider [phone] Encounter Details Date Type Department Care Team (Latest Contact Info) Description 06/16/2021 12:25 PM EDT Laboratory Appointment Lab [address] [place] [address] Osteoporosis, unspecified osteoporosis type, unspecified pathological fracture [...] EDT) Calcium 9.7 8.5 - 10.5 mg/dL [facility] Blood 06/16/2021 12:1 6 PM EDT 06/16/2021 12:28 PM EDT Narrative Resulting Agency Comment Spec In Lab Juan Antonio Alvarez MD CHEMISTRY ORDERABLES Performing Organization Address City/[facility]/ZIP Co de Phone Number [facility] [place] [address] * (ABNORMAL) Creatinine (06/16/2021 12:16 PM EDT) Creatinine 0.58(L) 0.70 - 1.20 mg/dL [facility] Est Glomerular Filtration Rate 90 >=60 mL/min/1. 73 m?? [facility] Comment: This patient? s [...] Lab Juan Antonio Alvarez MD CHEMISTRY ORDERABLES [facility] [place] [address] documented in this encounter Visit Diagnoses Diagnosis Osteoporosis, unspecified osteoporosis type, unspecified pathological fracture presence documented in this encounter Care Teams Assistant Project Engineer Relationship Specialty Start Date End Date Cesilia Stokes MD [address] [place] [id number] PCP - General Family Medicine 01/09/21 documented as of this encounter
--- OUTSIDE RECORDS SUMMARY | 2023-11-14 01:07 | XMS_ITS | Encounter Summary ---
Author Organization [facility] [place] [address] Care Team Providers Care Hvac Commercial Salesperson Name Role Phone Cesilia Stokes MD Primary Care Provider [phone] Reason for Visit * High Dollar Medication (Routine) - Closed Specialty Diagnoses / Procedures Referred By Contac t Referred To Contact Med Infusion Diagnoses Osteoporosis, unspecified osteoporosis type, unspecified pathological fracture presence Procedures Zolendronic Acid (Reclast) Authorization Request TC ZOLEDRONIC ACID, 1 MG, INJECTION Juan Antonio Alvarez MD [facility] [place] [address] [facility] Med Infusion [address] [place] [phone] Referral ID Status Reason Start Date Expiration Date V isits Requested Visits Authorized [id number] Closed Consult, Test & Treat 06/16/2021 03/27/2022 99 99 Encounter Details Date Type Department Care Team (Latest Contact Info) Description 06/25/2021 7:43 AM EDT - 06/25/2021 11:59 PM EDT Hospital Encounter [place] [address] Osteoporosis, unspecified osteoporosis type, unspecified [...] Reclast Infusion Allergies Allergen Reactions ??? Allergen Gna-Scwdl-Addmo Bee Anaphylaxis ??? Fluoxetine Other (See Comments) [...] mL/hr documented in this encounter Care Teams Hvac Commercial Salesperson Relationship Specialty Start Date End Date Cesilia Stokes MD [address] [place] [address] PCP - General Family Medicine 01/09/21 documented as of this encounter
--- OUTSIDE RECORDS SUMMARY | 2023-11-14 01:07 | XMS_ITS | Encounter Summary ---
Author Organization [facility] Address [address] [place], [place] [address] Phone Care Team Providers Care Processor Helper Name Role Phone Pcp, No Assigned Primary Care Provider Unavailab le Encounter Details Date Type Department Care Team (Late Contact Info) Description 02/03/2022 Telephone [place] [facility] - Primary Care [address] [place] [address] Vandana, Sydnee Ndiaye, DO [address] [place] [facility] [place] [address] Social History Tobacco Use Types Packs/Day Years Used Date Smoking Tobacco: Never Assessed PHQ-2 Answer Date Recorded Patient Health Questionnaire-2 [...] Visit [facility] [address] [facility] Medical Office [place] Floor 9 [place] [address] Jones KatieLISA Johnson 01/06/2024 2:00 PM EDT Appointment [facility] [address] [place] [address] 01/09/2024 2:00 PM EDT Office Visit [facility] [address] [facility] Medical Office [place] 19th Floor [address] [place] [address] Radha Coker MD [address] [place] [address] 01/10/2024 8:30 AM EDT Office Visit [facility] [address] [place] [address] Vandana, Sydnee Ndiaye DO [address] [facility] [place] [address] 01/11/2024 10:00 AM EDT Office Visit [facility] [address] [facility] [address] [place] [address] Kat Rico, PATTIE [address] [place] [address] 01/20/2024 11:45 AM EDT Clinical Support [facility] [address] [place] [address] Maria Eugenia Lucero, ORA [address] [place] [address] 01/30/2024 8:40 AM EST Office Visit [facility] [address] [facility] Medical Office [place] 15th Floor [address] [place] [address] Jose Monique MD [address] Medical Office [place] 15th Floor, [address] [place] [address] 02/27/2024 12:50 PM EST Office Visit [facility] [address] [place] [address] Kellie Bowser, OD [address], [address] [facility] [place] [address] 06/19/2024 11:30 AM EDT Appointment [place] [address] [facility] [address] [place] [address] 06/19/2024 1:00 PM EDT Appointment [place] [address] [facility] [address] [place] [address] 08/21/2024 1:40 PM EDT Office Visit [facility] at [address] 3rd [place] [address] Satya Wright PA [address] [facility] [address] 3rd [place] [address] 09/05/2024 10:30 AM EDT Office Visit [facility] [address] [place] [address] Tatiana Dominguez, [facility] [address] [place] [address] documented as of this encounter Visit Diagnoses Not on filedocumented in this encounter Care Teams Processor Helper Relationship Specialty Start Date End Date Pcp, No Assigned PCP - General 12/31/21 02/23/22 documented as of this encounter
--- OUTSIDE RECORDS SUMMARY | 2023-11-14 01:07 | XMS_ITS | Encounter Summary ---
Author Organization [facility] [place] [address] Care Team Providers Care Lab Animal Technician Name Role Phone Cesilia Stokes MD Primary Care Provider [phone] Reason for Visit * Reason Onset Date [...] Contact Info) Description 05/01/2021 Telephone [facility] at [facility] [place] [phone] Rere Hurt RN Abdominal Pain (Patient called [...] on filedocumented in this encounter Care Teams Lab Animal Technician Relationship Specialty Start Date End Date Cesilia Stokes MD [address] [place] [id number] PCP - General Family Medicine 01/09/21 documented as of this encounter
--- OUTSIDE RECORDS SUMMARY | 2023-11-14 01:07 | XMS_ITS | Encounter Summary ---
Author Organization [facility] Address [facility] [place] [address] Care Team Providers Care Performing Arts Technicians Name Role Phone Cesilia Stokes MD Primary Care Provider [phone] Encounter Details Date Type Department Care Team (Late st Contact Info) Description 04/28/2021 11:00 AM EST - 04/28/2021 12:15 PM EST Surgery [place] [address] Douglas Lui MD [facility] [address] UPPER EUS- ENDOSCOPIC ULTRASOUND (WRVU 3.47) Social [...] the day after the procedure, use an odvq-pkn-gnrciuy spray to numb your throat. Sucking on [...] occurs, please contact your Doctor. Please call [phone] before 8pm Mon-Fri with problems, questions or concerns. If you call after 8pm or on weekends, call the Hospital at [phone] and ask to speak to the Primer Supervisor vice president of contracts and the amusement equipment operator will contact that person for you. When should you call for help? Call [phone] anytime you think you may need emergency [...] any problems. Where can you learn more? [facility] View your After Visit Summary and more online at [email or web address] If you would like to provide feedback [...] cost to you. Content Version: 12.2 ?? [id number] [employer]. Care instructions adapted under license by [facility]. If you have questions about a medical condition or this instruction, always ask your healthcare professional. [employer] disclaims any warranty or liability for your [...] Lui MD - 04/28/2021 10:58 AM EST [facility] Operative Note Patient Name: Gianna Infante : [id number] MR#: [id number] Case Date: 04/28/2021 Surgeon: Surgeon(s) and Role: * Douglas Lui MD - Primary Preoperative diagnosis: pancreatic lesion Postoperative diagnosis: * No post-op diagnosis entered * Procedure(s) (LRB): FINE NEEDLE ASPIRATION BIOPSY, INC US GUIDANCE; FIRST LESION (N/A) UPPER EUS- ENDOSCOPIC ULTRASOUND (N/A) Anesthesia: MAC Full procedure note is documented under the Procedure section of [facility]. documented in this encounter Plan of Treatment Not on file documented as of this encounter Procedures Procedure Name Priority Date/Time Associated Diagnosis Comments NON-ELECTRICAL SYSTEMS DRAFTER FINAL REPORT Routine 04/28/2021 11:41 AM EST CYTOPATHOLOGY NON-GYNECOLOGICAL Routine 04/28/2021 11:41 AM EST Endoscopic Us Exam, Esoph ([id number]) 04/28/2021 10:45 AM EST pancreatic lesion Fine Needle Aspiration Bx W/Us Gdn 1St Lesion ([id number]) 04/28/2021 10:45 AM EST pancreatic lesion UPPER EUS-ENDOSCOPIC ULTRASOUND Routine 04/28/2021 10:01 AM EST documented in this encounter Results * Non-Education And Training Coordinator Final Report (04/28/2021 11:41 AM EST) Diagnosis Discussion [id number] ? Location: ; [facility]; A The signing pathologist has (i) examined the relevant preparation(s) for the specimen(s) and (ii) rendered or confirmed the diagnosis(es). . ? Non-Education And Training Coordinator Final DIAGNOSIS See Discussion Electronically signed by: ?Alcides Olivas MD Verified: ??04/30/2021 16:09 ??Cytopathologis t Performed at: ??-[facility] Dept. of [place]ology, [place], [place] DISCUSSION Pancreas: cyst (EUS-guided FNA) [...] Cell Block 1. 04/30/2021 4:09 PM EST [facility] PANCREATIC STRUCTURE / Unknown 04/28/2021 11:41 AM EST 04/28/2021 11:41 AM EST Douglas Lui MD PATHOLOGY/CYTOLOGY O MIHIR Performing Organization Address [facility] [[email or web address]] [place] [address] * Cytopathology Non-Gynecological (04/28/2021 11:41 AM EST) AP Specimen 04/28/2021 11:4 1 AM EST 04/28/2021 11:41 AM EST Narrative [facility] - 04/28/2021 11:41 AM EST Specimen requisition ordered. ??Separate Pathology report to follow Douglas Lui MD PATHOLOGY/CYTOLOGY O MIHIR Performing Organization Address City/[facility] [[email or web address]] [place] [address] * UPPER EUS-ENDOSCOPIC ULTRASOUND (04/28/2021 10:01 AM EST) UPPER ENDOSCOPIC ULTRASOUND [facility] Endoscopy Procedure Date: 04/28/2021 10:01 AM ? Patient Name: Gianna Infante ? Date of : 1945 ? Age: 75 ? Order #: [id number] ? Instrument Name: [id number] ? Procedure: ? Upper EUS Indications: ? Pancreatic cyst on CT scan Providers: ? Douglas Lui MD, Massiel ? Yady Holden, ? Sales Floor Team Leader Referring : ?Cesilia Stokes MD Medicines: ? [...] CRNA) documented in this encounter Care Teams Performing Arts Technicians Relationship Specialty Start Date End Date Cesilia Stokes MD [address] [place] [address] PCP - General Family Medicine 01/09/21 documented as of this encounter
--- OUTSIDE RECORDS SUMMARY | 2023-11-14 01:07 | XMS_ITS | Encounter Summary ---
Author Organization [facility] [place] [address] Care Team Providers Care Java Integration Developer Name Role Phone Cesilia Stokes MD Primary Care Provider [phone] Reason for Referral * Diagnostic Test (Routine) - Closed Specialty Diagnoses / Procedures Referred By Contac t Referred To Contact Radiology Diagnoses Anomia Family history of dementia Mild cognitive impairment Procedures MRI Brain wo Contrast MRI Brain wo Contrast Eliane Wallace APRN [facility] [place] [address] [place] [address] Referral ID Status Reason Start Date Expiration Date V isits Requested Visits Authorized [id number] Closed Specialty Service Requested 06/16/2021 12/17/2022 1 1 * Psychiatric (Routine) - Closed Specialty Diagnoses / Procedures Referred By Contac t Referred To Contact Psychiatry Diagnoses Cognitive changes Anomia Family history of dementia Insomnia, unspecified type Eliane Wallace APRN [facility] [place] [address] Amaury Sheth, PhD [facility] [place] [address] Referral ID Status Reason Start Date Expiration Date V isits Requested Visits Authorized [id number] Closed Consult, Test & Treat 06/16/2021 05/20/2022 1 1 Reason for Visit * Consultation (Routine) - Closed Specialty Diagnoses / Procedures Referred By Farrah t Referred To Contact Neurology Diagnoses Other amnesia [facility] IMP[facility] Cesilia Stokes MD [address] [place] [address] [facility] [address] [place] [address] Referral ID Status Reason Start Date Expiration Date V isits Requested Visits Authorized [id number] Closed Consult, Test & Treat [facility] PCP Updated and/or Approved 04/03/2021 04/03/2022 12 12 Encounter Details Date Type Department Care Team (Late st Contact Info) Description 06/16/2021 8:00 AM EDT [place] [phone] Eliane Wallace APRN [facility] [place] [address] Anomia; Family history of dementia; Insomnia, unspecified [...] 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 She started seeing [...] childhood; her parents sent her to a [employer]. When in 2nd grade, she was told she would go to hel if in her sleep with mortal sin. Since childhood, she'd be scared at night and require lights. She doesn't like camping but states she won't isolateherself. Surgery with anesthesia was mentally difficult but woke from anesthesia feeling ok. In thepast, she saw a Herbologist and discussed this statement and walked away [...] History: and lives independently (son is in [place], [place]; daughter in [place], [place]; they visited in preparation for surgery, and she realized she wants to be closer to family). ObtainedMaster's in Drawing and Painting. 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 No history of tobacco use. Will have [...] eye D31.31 Allergies Allergen Reactions ??? Allergen Cok-Cxsip-Xssbk Bee Anaphylaxis ??? Fluoxetine Other (See Comments) [...] who have questions please contact the health rn critical care that requested your imaging first. ? Electronically signed by: Chad Addison MD, [facility] ([phone]), at 10/29/2021 5:21 PM Narrative 10/29/2021 5:21 PM EDT EXAMINATION: MRI [...] patients who have questions please contactthe health rn critical care that requested your imaging first. Electronically signed by: Chad Addison MD, [facility]([phone]), at 10/29/2021 5:21 PM Eliane Wallace ENERGY SCHEDULER IMG MRI ORDERABLES documented in this encounter Visit Diagnoses Diagnosis Anomia Other symbolic dysfunction Family history of dementia Family history of other neurological diseases Insomnia, unspecified type Mild cognitive impairment Mild cognitive impairment, so stated Anomia Other symbolic dysfunction Family history of dementia Family history of other neurological diseases Mild cognitive impairment Mild cognitive impairment, so stated documented in this encounter Care Teams Java Integration Developer Relationship Specialty Start Date End Date Cesilia Stokes MD [address] [place] [address] PCP - General Family Medicine 01/09/21 documented as of this encounter
--- OUTSIDE RECORDS SUMMARY | 2023-11-14 01:07 | XMS_ITS | Encounter Summary ---
[place] [address] Care Team Providers Care Fixed Interest Dealer Name Role Phone Cesilia Stokes MD Primary Care Provider [phone] Reason for Referral * Diagnostic Test (Routine) - Closed Specialty Diagnoses / Procedures Referred By Contac t Referred To Contact Radiology Diagnoses Anomia Family history of dementia Mild cognitive impairment Procedures MRI Brain wo Contrast MRI Brain wo Contrast Eliane Wallace APRN [facility] [place] [address] [place] [address] Referral ID Status Reason Start Date Expiration Date V isits Requested Visits Authorized [id number] Closed Specialty Service Requested 06/16/2021 12/17/2022 1 1 Reason for Visit * Diagnostic Test (Routine) - Closed Specialty Diagnoses / Procedures Referred By Contac t Referred To Contact Radiology Diagnoses Anomia Family history of dementia Mild cognitive impairment Procedures MRI Brain wo Contrast MRI Brain wo Contrast Eliane Wallace APRN [facility] [place] [address] [place] [address] Referral ID Status Reason Start Date Expiration Date V isits Requested Visits Authorized [id number] Closed Specialty Service Requested 06/16/2021 12/17/2022 1 1 Encounter Details Date Type Department Care Team (Latest Contact Info) Description 10/28/2021 3:12 PM EDT - 10/28/2021 11:59 PM EDT Hospital Encounter MRI at [facility] [place] [address] Eliane Wallace APRN [facility] [place] [address] Anomia; Family history of dementia; Mild cognitive [...] who have questions please contact the health wound care nurse that requested your imaging first. ? Electronically signed by: Chda Addison MD, [facility] ([phone]), at 10/29/2021 5:21 PM Narrative 10/29/2021 5:21 [...] patients who have questions please contactthe health wound care nurse that requested your imaging first. Eliane Balderas Delfinoadiel EAR[facility] IMG MRI ORDERABLES documented in this encounter Visit Diagnoses Diagnosis Anomia Other symbolic dysfunction Family history of dementia Family history of other neurological diseases Mild cognitive impairment Mild cognitive impairment, so stated documented in this encounter Care Teams Fixed Interest Dealer Relationship Specialty Start Date End Date Cesilia Stokes MD [address] [place] [address] PCP - General Family Medicine 01/09/21 documented as of this encounter
--- OUTSIDE RECORDS SUMMARY | 2023-11-14 01:07 | XMS_ITS | Encounter Summary ---
Author Organization [facility] [place] [address] Care Team Providers Care Air Saw Operator Name Role Phone Cesilia Stokes MD Primary Care Provider [phone] Reason for Referral * High Dollar Medication (Routine) - Closed Specialty Diagnoses / Procedures Referred By Contac t Referred To Contact Med Infusion Diagnoses Osteoporosis, unspecified osteoporosis type, unspecified pathological fracture presence Procedures Zolendronic Acid (Reclast) Authorization Request TC ZOLEDRONIC ACID, 1 MG, INJECTION Juan Antonio Alvarez MD [facility] [place] [address] [facility] Med Infusion [address] [place] [phone] Referral ID Status Reason Start Date Expiration Date V isits Requested Visits Authorized [id number] Closed Consult, Test & Treat 06/16/2021 03/27/2022 99 99 Encounter Details Date Type Department Care Team (Late st Contact Info) Description 06/16/2021 Orders [place] [address] Juan Antonio Alvarez MD [facility] [place] [address] Osteoporosis, unspecified osteoporosis type, unspecified [...] presence documented in this encounter Care Teams Air Saw Operator Relationship Specialty Start Date End Date Cesilia Stokes MD [address] [place] [address] PCP - General Family Medicine 01/09/21 documented as of this encounter
--- OUTSIDE RECORDS SUMMARY | 2023-11-14 01:07 | XMS_ITS | Encounter Summary ---
Author Organization [facility] Address [facility] [place] [address] Care Team Providers Care Police Department Secretary Name Role Phone Cesilia Stokes MD Primary Care Provider [phone] Encounter Details Date Type Department Care Team (Latest Contact Info) Description 04/28/2021 9:43 AM EST - 04/28/2021 12:39 PM EST Hospital Encounter [place] [address] Douglas Lui MD [facility] [place] [address] Discharge Disposition: Home Social History Tobacco Use [...] the day after the procedure, use an qfvu-jko-gdvnhtz spray to numb your throat. Sucking on [...] occurs, please contact your Doctor. Please call [phone] before 8pm Mon-Fri with problems, questions or concerns. If you call after 8pm or on weekends, call the Hospital at [phone] and ask to speak to the Quantitative Equity Head mental health practitioner and the auger mill operator will contact that person for you. When should you call for help? Call [phone] anytime you think you may need emergency [...] any problems. Where can you learn more? [facility] View your After Visit Summary and more online at [email or web address] If you would like to provide feedback [...] cost to you. Content Version: 12.2 ?? 2833-4627 [employer]. Care instructions adapted under license by [facility]. If you have questions about a medical condition or this instruction, always ask your healthcare professional. [employer] disclaims any warranty or liability for your [...] Operative Note Patient Name: Gianna Infante : [id number] MR#: [id number] Case Date: 04/28/2021 Surgeon: Surgeon(s) and Role: * Douglas Lui MD - Primary Preoperative diagnosis: pancreatic lesion Postoperative diagnosis: * No post-op diagnosis entered * Procedure(s) (LRB): FINE NEEDLE ASPIRATION BIOPSY, INC US GUIDANCE; FIRST LESION (N/A) UPPER EUS- ENDOSCOPIC ULTRASOUND (N/A) Anesthesia: MAC Full procedure note is documented under the Procedure section of [facility]. documented in this encounter Plan of Treatment Not on file documented as of this encounter Procedures Procedure Name Priority Date/Time Associated Diagnosis Comments NON-SCIENCE WRITER FINAL REPORT Routine 04/28/2021 11:41 AM EST CYTOPATHOLOGY NON-GYNECOLOGICAL Routine 04/28/2021 11:41 AM EST Endoscopic Us Exam, Esoph ([id number]) 04/28/2021 10:45 AM EST pancreatic lesion Fine Needle Aspiration Bx W/Us Gdn 1St Lesion ([id number]) 04/28/2021 10:45 AM EST pancreatic lesion UPPER EUS-ENDOSCOPIC ULTRASOUND Routine 04/28/2021 10:01 AM EST documented in this encounter Results * Non-Aquatic Laborer Final Report (04/28/2021 11:41 AM EST) Diagnosis Discussion [id number] ? Location: ; 09; A The signing pathologist has (i) examined the relevant preparation(s) for the specimen(s) and (ii) rendered or confirmed the diagnosis(es). . ? Non-Aquatic Laborer Final DIAGNOSIS See Discussion Electronically signed by: ?Alcides Olivas MD Verified: ??04/30/2021 16:09 ??Cytopathologis t Performed at: ??-[facility] [place], [place], [place] DISCUSSION Pancreas: cyst (EUS-guided FNA) - [...] Cell Block 1. 04/30/2021 4:09 PM EST [facility] PANCREATIC STRUCTURE / Unknown 04/28/2021 11:41 AM EST 04/28/2021 11:41 AM EST Douglas Lui MD PATHOLOGY/CYTOLOGY O MIHIR Performing Organization Address [facility] Co de Phone Number [facility] [place] [place] [address] * Cytopathology Non-Gynecological (04/28/2021 11:41 AM EST) AP Specimen 04/28/2021 11:4 1 AM EST 04/28/2021 11:41 AM EST Narrative [facility] - 04/28/2021 11:41 AM EST Specimen requisition ordered. ??Separate Pathology report to follow Douglas Lui MD PATHOLOGY/CYTOLOGY O MIHIR Performing Organization Address City/[facility] [place] [address] * UPPER EUS-ENDOSCOPIC ULTRASOUND (04/28/2021 10:01 AM EST) UPPER ENDOSCOPIC ULTRASOUND [facility] Endoscopy Procedure Date: 04/28/2021 10:01 AM ? Patient Name: Gianna Infante ? Date of : 1945 ? Age: 75 ? Order #: [id number] ? Instrument Name: [id number] ? Procedure: ? Upper EUS Indications: ? Pancreatic cyst on CT scan Providers: ? Douglas Lui MD, Brittany ? Yady Holden, ? Furniture Mechanic Referring MD: ?Cesilia Stokes MD Medicines: ? [...] CRNA) documented in this encounter Care Teams Police Department Secretary Relationship Specialty Start Date End Date Cesilia Stokes MD [address] [place] [address] PCP - General Family Medicine 01/09/21 documented as of this encounter
--- OUTSIDE RECORDS SUMMARY | 2023-11-14 01:07 | XMS_ITS | Encounter Summary ---
[place] [address] Care Team Providers Care Server Manager Name Role Phone Cesilia Stokes MD Primary Care Provider [phone] Reason for Visit * Reason Onset Date Comments Prior Authorization 05/27/2021 Encounter Details Date Type Department Care Team (Late st Contact Info) Description 05/27/2021 Telephone [place] [address] Katelynn Samayoa Prior Authorization Social History Tobacco [...] request: Osteoporosis Health plan: [employer] ([place]) Authorizing resources representative name: Shanell Sent to health plan on: 05/28/21 Health plan decision: Denied Quantity approved: Authorization number: [id number] Start date: End date: * Telephone Encounter - Katelynn Samayoa - 05/27/2021 8:19 AM EST Images from the original note were not included. Received PA for forteo Will complete as soon as possible documented in this encounter Plan of Treatment Not on file documented as of this encounter Visit Diagnoses Not on filedocumented in this encounter Care Teams Server Manager Relationship Specialty Start Date End Date Cesilia Stokes MD [address] [place] [address] PCP - General Family Medicine 01/09/21 documented as of this encounter
--- OUTSIDE RECORDS SUMMARY | 2023-11-14 01:07 | XMS_ITS | Encounter Summary ---
[place] [address] Care Team Providers Care Coastal Tug Mate Name Role Phone Cesilia Stokes MD Primary Care Provider [phone] Encounter Details Date Type Department Care Team (Latest Contact Info) Description 05/13/2021 9:45 AM EST - 05/13/2021 11:59 PM EST [place] [address] Osteoporosis, unspecified osteoporosis type, unspecified pathological fracture [...] 6:00 AM EST) Hours Collected 24 hour(s) [facility] Total Volume 3,000 mL [facility] Urine 05/13/2021 6:00 AM EST 05/13/2021 11:50 AM EST Narrative Resulting Agency Comment Spec In Lab Jaun Antonio Alvarez MD CHEMISTRY ORDERABLES [facility] [place] [address] * Creatinine, urine, 24 hour (05/13/2021 6:00 AM EST) Cre Concentration, U24 28 mg/dL [facility] Creatinine, 24 Hour Urine 0.84 0.70 - 1.60 g/24hr [facility] Urine 05/13/2021 6:00 AM EST 05/13/2021 11:50 AM EST Narrative Resulting Agency Comment Spec In Lab Juan Antonio Alvarez MD URINE ORDERABLES Performing Organization Address [facility] Co de Phone Number [facility] [place] [address] * Calcium, urine, 24 hour (05/13/2021 6:00 AM EST) Ca Concentration, U24 9.7 mg/dL [facility] Calcium, 24 Hour Urine 291.0 50.0 - 300.0 mg/24hr [facility] Comment:Reference Range: 50. 0-300.0 mg/24 hour based on diet. Urine 05/13/2021 6:00 AM EST 05/13/2021 11:50 AM EST Narrative Resulting Agency Comment Spec In Lab Juan Antonio Alvarez MD URINE ORDERABLES Performing Organization Address [facility] Co de Phone Number [facility] [place] [address] documented in this encounter Visit Diagnoses Diagnosis Osteoporosis, unspecified osteoporosis type, unspecified pathological fracture presence documented in this encounter Care Teams Coastal Tug Mate Relationship Specialty Start Date End Date Cesilia Stokes MD [address] [place] [address] PCP - General Family Medicine 01/09/21 documented as of this encounter
--- OUTSIDE RECORDS SUMMARY | 2023-11-14 01:07 | XMS_ITS | Encounter Summary ---
[place] [address] Care Team Providers Care Trolley Coach Driver Name Role Phone Cesilia Stokes MD Primary Care Provider [phone] Reason for Visit * Reason Onset Date Comments Prior Authorization 06/05/2021 Encounter Details Date Type Department Care Team (Late st Contact Info) Description 06/05/2021 Telephone [place] [address] Katelynn Samayoa Prior Authorization Social History Tobacco [...] request: Osteoporosis Health plan: [employer] ([place]) Authorizing underwriting sales representative name: Shanell Sent to health plan on: 06/09/21 Health plan decision: Approved Quantity approved: Authorization number: [id number] Start date: End date: 03/27/22 * Telephone Encounter - Katelynn Samayoa - 06/05/2021 7:31 AM EST Images from the original note were not included. Received PA for Dianelos Will complete as soon as possible documented in this encounter Plan of Treatment Not on file documented as of this encounter Visit Diagnoses Not on filedocumented in this encounter Care Teams Trolley Coach Driver Relationship Specialty Start Date End Date Cesilia Stokes MD [address] [place] [address] PCP - General Family Medicine 01/09/21 documented as of this encounter
--- OUTSIDE RECORDS SUMMARY | 2023-11-14 01:07 | XMS_ITS | Encounter Summary ---
Author Organization [facility] Address [facility] [place] [address] Care Team Providers Care Substation Engineer Name Role Phone Cesilia Stokes MD Primary Care Provider [phone] Encounter Details Date Type Department Care Team (Late st Contact Info) Description 06/02/2021 Orders [place] [address] Juan Antonio Alvarez MD [facility] [place] [address] Social History Tobacco Use Types Packs/Day Years [...] on filedocumented in this encounter Care Teams Substation Engineer Relationship Specialty Start Date End Date Cesilia Stokes MD [address] [place] [address] PCP - General Family Medicine 01/09/21 documented as of this encounter
--- OUTSIDE RECORDS SUMMARY | 2023-11-14 01:07 | XMS_ITS | Encounter Summary ---
[place] [address] Care Team Providers Care Pest Controller Name Role Phone Cesilia Stokes MD Primary Care Provider [phone] Reason for Visit * Reason Comments Annual Exam Encounter Details Date Type Department Care Team (Late st Contact Info) Description 05/19/2021 1:30 PM EST Office Visit Dermatology at [address] [address] Cm Randall MD [address] [facility] [place] [address] Nevus; History of basal cell carcinoma Social [...] canthus, and inferior nasal tip, treated in [facility] 2008 ?? Gianna follows up today for her yearly skin checkup. She is dealing with osteoporosis and wonders what kind of sunscreen she should be using. She has not noted any particular skin lesions of concern. She reminds her that she grew up first in [place], and then later in [facility]. Physical examination was a pleasant 75 woman [...] skin documented in this encounter Care Teams Pest Controller Relationship Specialty Start Date End Date Cesilia Stokes MD [address] [place] [address] PCP - General Family Medicine 01/09/21 documented as of this encounter
--- OUTSIDE RECORDS SUMMARY | 2023-11-14 01:07 | XMS_ITS | Encounter Summary ---
Author Organization [facility] [address] Care Team Providers Care Drivability Technician Name Role Phone Cesilia Stokes MD Primary Care Provider [phone] Reason for Visit * Consultation (Routine) - Closed Specialty Diagnoses / Procedures Referred By Contac t Referred To Contact Endocrinology Diagnoses Osteoporosis, unspecified osteoporosis type, unspecified pathological fracture presence Cesilia Stokes MD [address] [place] [address] [facility] Endocrinology [address] [place] [phone] Referral ID Status Reason Start Date Expiration Date V isits Requested Visits Authorized [id number] Closed Consult, Test & Treat PCP Updated and/or Approved 05/01/2021 07/24/2021 12 12 Encounter Details Date Type Department Care Team (Latest Contact Info) Description 05/11/2021 8:30 AM EST TH Visit (TeleHealth) [place] [address] Juan Antonio Alvarez MD [facility] [place] [address] Osteoporosis, unspecified osteoporosis type, unspecified [...] Forteo) Last BMD by DXA 01/2018 in [facility]. LS (L1,L2,L4) -3.0 LFN -1.3 LH [...] 900mg from food [] 901-1100 mg [x] 6896-1392 mg from Viactive chews [] 5785-8881 mg [] Above 1500 mg Medications: Current [...] BMD measurements and plots are available in [employer] under the imaging tab. Paper copies will be sent to providers without [employer] access. If you have received this report without the data sheet and do not have access to [employer], please contact Radiology Jail Manager at [phone] Tuesday thru Tuesday 8am-4pm. Thank you for letting us participate in the care of this patient. ??If you are a health care provider and have any questions regarding this report, please contact the number below. ??For patients who have questions please contact the health home care chaplain that requested your imaging first. ? Electronically signed by: Gabe Alcazar MD, [facility] ([phone]), at 06/16/2021 3:29 PM Narrative 06/16/2021 3:29 PM EDT EXAMINATION: DXA CENTRAL SPINE, HIP, AND/OR WHOLE BODY (GENERIC) CLINICAL HISTORY: 75 years Female 2 years on Forteo (as entered by ordering provider) TECHNIQUE: Scans were acquired at the lumbar spine and left hip using the HoloSkill-Life Horizon A system. L4 was excluded from [...] BMD measurements and plots are available in EBody Centralunder the imaging tab. Paper copies will be sent to providers without Bulbstorm access.If you have received this report without the data sheet and do not haveaccess to [employer], please contact Radiology Jail Manager at [phone] Tuesday thruFriday 8am-4pm. Thank you for letting us participate in the care of this patient. If youare a health care provider and have any questions regarding this report,please contact the number below. For patients who have questions please contactthe health home care chaplain that requested your imaging first. Electronically signed by: Gabe Alcazar MD, [facility]([phone]), at 06/16/2021 3:29 PM Juan Antonio Alvarez MD IMG DEXA ORDERABLES * Calcium, urine, 24 hour (05/13/2021 6:00 AM EST) Ca Concentration, U24 9.7 mg/dL [facility] Calcium, 24 Hour Urine 291.0 50.0 - 300.0 mg/24hr [facility] Comment:Reference Range: 50. 0-300.0 mg/24 hour based on diet. Urine 05/13/2021 6:00 AM EST 05/13/2021 11:50 AM EST Narrative Resulting Agency Comment Spec In Lab Juan Antonio Alvarez MD URINE ORDERABLES Performing Organization Address City/[facility]/ZIP Co de Phone Number [facility] [place] [address] * Creatinine, urine, 24 hour (05/13/2021 6:00 AM EST) Cre Concentration, U24 28 mg/dL [facility] Creatinine, 24 Hour Urine 0.84 0.70 - 1.60 g/24hr [facility] Urine 05/13/2021 6:00 AM EST 05/13/2021 11:50 AM EST Narrative Resulting Agency Comment Spec In Lab Juan Antonio Alvarez MD URINE ORDERABLES Performing Organization Address City/[facility]/ZIP Co de Phone Number [facility] [place] [address] documented in this encounter Visit Diagnoses Diagnosis Osteoporosis, unspecified osteoporosis type, unspecified pathological fracture presence Osteoporosis, unspecified osteoporosis type, unspecified pathological fracture presence documented in this encounter Care Teams Drivability Technician Relationship Specialty Start Date End Date Cesilia Stokes MD [address] [place] [address] PCP - General Family Medicine 01/09/21 documented as of this encounter
--- OUTSIDE RECORDS SUMMARY | 2023-11-14 01:07 | XMS_ITS | Encounter Summary ---
Author Organization [facility] Address [address] [place] [address], [place] [address] Phone Care Team Providers Care Warehouse Order Selector Name Role Phone Pcp, No Assigned Primary Care Provider Unavailab le Reason for Referral * Consultation (Routine) - Closed Specialty Diagnoses / Procedures Referred By Farrah shook Referred To Contact Podiatry Diagnoses Onychomycosis Procedures [place] OFFICE/OUTPATIENT [facility] 60-74 MINUTES Style, Sydnee Ndiaye, DO [address] [place] [address] Referral ID Status Reason Start Date Expiration Date V isits Requested Visits Authorized [id number] Closed Specialty Services Required 02/17/2022 02/17/2023 1 1 * Consultation (Routine) - Closed Specialty Diagnoses / Procedures Referred By Farrah shook Referred To Contact Ophthalmology Diagnoses Macular pucker, left eye 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 Procedures [place] OFFICE/OUTPATIENT [facility] 60-74 MINUTES Vandana, Sydnee Ndiaye, DO [address] [place] [address] Referral ID Status Reason Start Date Expiration Date V isits Requested Visits Authorized [id number] Closed Specialty Services Required 02/17/2022 02/17/2023 1 1 * Consultation (Routine) - Closed Specialty Diagnoses / Procedures Referred By Contac t Referred To Contact Endocrinology Diagnoses Osteoporosis, unspecified osteoporosis type, unspecified pathological fracture presence Procedures [place] OFFICE/OUTPATIENT NEW HIGH MDM 60-74 MINUTES Style, Sydnee Zelda, DO [address] [place] [address] Referral ID Status Reason Start Date Expiration Date V isits Requested Visits Authorized [id number] Closed Specialty Services Required 02/17/2022 02/17/2023 1 1 * Consultation (Routine) - Closed Specialty Diagnoses / Procedures Referred By Contac t Referred To Contact Gastroenterology Diagnoses History of colon polyps Procedures [place] OFFICE/OUTPATIENT NEW HIGH MDM 60-74 MINUTES Style, Sydnee Zelda, DO [address] [place] [address] [place] [address] [place] [address] Jose [facility], [facility] 1 [facility] at [address] [place] [address] Referral ID Status Reason Start Date Expiration Date V isits Requested Visits Authorized [id number] Closed Specialty Services Required 02/17/2022 02/17/2023 1 1 * Consultation (Routine) - Closed Specialty Diagnoses / Procedures Referred By Contac t Referred To Contact Dermatology Diagnoses History of basal cell carcinoma (BCC) Procedures [place] OFFICE/OUTPATIENT NEW HIGH MDM 60-74 MINUTES Style, Sydnee Zelda, DO [address] [place] [address] Jose Johnson MD [address] [facility] [address] [place] [address] Referral ID Status Reason Start Date Expiration Date V isits Requested Visits Authorized [id number] Closed Specialty Services Required 02/17/2022 02/17/2023 1 1 * Consultation (Routine) - Closed Specialty Diagnoses / Procedures Referred By Farrah shook Referred To Contact Physical Therapy Diagnoses Neck pain Procedures [place] OFFICE/OUTPATIENT NEW HIGH MDM 60-74 MINUTES Sydnee Espinosa DO [address] [place] [address] Referral ID Status Reason Start Date Expiration Date V isiBaydin Requested Visits Authorized [id number] Closed Specialty Services Required 02/17/2022 02/17/2023 10 10 Reason for Visit * Reason Comments Establish Care Encounter Details Date Type Department Care Team (Late st Contact Info) Description 02/17/2022 9:00 AM EST Office Visit [facility] [address] [place] [address] Sydnee Espinosa DO [address] [place] [address] Bilateral impacted cerumen (Primary Dx); Dental infection; Neck pain; Osteoporosis, unspecified osteoporosis type, unspecified pathological fracture presence; History of colon polyps; History of basal cell carcinoma (BCC); Encounter for screening mammogram for malignant neoplasm of breast; Macular pucker, left eye; Nevus of choroid of right eye; Nevus of choroid of left eye; Onychomycosis; Memory deficit; Situational mixed anxiety and depressive disorder; Other hyperlipidemia Social History Tobacco Use Types [...] Reading Time Taken Comments Blood Pressure 120/70 02/17/2022 8:55 AM EST Pulse 65 02/17/2022 8:55 AM EST Temperature 36.3 ??C (97.3 ??F) 02/17/2022 8:55 AM ES T Respiratory Rate 16 02/17/2022 8:55 AM EST Oxygen Saturation 97% 02/17/2022 8:55 AM EST Inhaled Oxygen Concentration - - Weight 67.9 kg (149 lb 9.6 oz) 02/17/2022 8:55 A M EST Height 172.7 cm (5' 8) 02/17/2022 8:55 AM EST Body Mass Index 22.75 02/17/2022 8:55 AM EST documented in this encounter Progress Notes * Vandana, Sydnee Ndiaye, - 02/17/2022 9:00 AM EST Subjective Patient ID: Gianna Infante is a 76 y.o. female who presents for Establish Care. Patient moved here from [place]. Needs several referrals and has concerns below. History of basal cell cancer. Needs dermatology referral. History of colon polyps. Needs referral for colonoscopy. On 3-year plan. History of macular pucker left eye. Having difficulty driving at night, worsening halo effect from automobile headlights. Needs to see ophthalmology. Would like referral for therapist for situational anxiety and depression. Had palpitations when shemoved here went to [facility]. Reports had cardiac work-up including nuclear stress test which was negative per patient. Was told symptoms due to anxiety. Denies SI. Has a history of osteoporosis/thoracic vertebral compression fracture. Receives yearly Reclast. Duefor infusion in May. Hx memory deficit: Went to a memory clinic, 05/2021 after 2 hard concussions & decreasing recall, brain scan inconclusive, but forgetting is increasing. History UTI in September. Was given antibiotics. Symptoms resolved. Would like mammogram, due mid March Left upper molar tooth pain, tender to palpation. Was seeing dentist in [place]. Was given amoxicillin end of November. Pain returned 3 weeks ago. No f/c. No pus. Neck pain for years. Worsened over past 6 months. No upper extremity pain, numbness, paresthesias. Taking 400mg ibuprofen bid and tylenol. No past injuries. Never had imaging or completed PT. Review of Systems All other systems reviewed and are negative. Visit Vitals BP 120/70 (BP Location: Left arm) Pulse 65 Temp (!) 36.3 ??C (97.3 ??F) (Temporal) Resp 16 Objective Physical Exam Vitals reviewed. Constitutional: Appearance: Normal appearance. HENT: Head: Normocephalic and atraumatic. Right Ear: Tympanic membrane normal. Left Ear: Tympanic membrane normal. Ears: Comments: Bilateral cerumen impaction Nose: Nose normal. Mouth/Throat: Mouth: Mucous membranes are moist. Pharynx: No oropharyngeal exudate. Comments: Left upper gums tender to palpation, mild erythema. No induration or fluctuance. No purulent drainage Eyes: Extraocular Movements: Extraocular movements intact. Conjunctiva/sclera: [...] There is no guarding or rebound. Musculoskeletal: General: Normal range of motion. Cervical back: Normal range of motion and neck supple. Right lower leg: No edema. Left lower leg: No edema. Comments: Limited range of motion sidebending and rotation. Tenderness base of left occiput/upper trapezius. Negative Spurling. 5 out of 5 UE strength. Skin: General: Skin is warm. Neurological: General: No focal deficit present. Mental Status: She is alert. Psychiatric: Mood and Affect: Mood normal. Behavior: Behavior normal. Assessment/Plan 1. Bilateral impacted cerumen Patient tolerated procedure well. Bilateral canal irritation with mild bleeding. Short course of Ciprodex ordered - Ear cerumen removal; Future 2. Dental infection There does not appear an abscess to be drained. Prescription for amoxicillin 500 mg 3 times daily x7 days written. Recommended patient see a dentist SYL. 3. Neck pain Location of pain consistent with trapezius muscle. Provided neck stretches for patient to do at home. Referral for PT placed and if pain persistent. Can consider imaging in the future. - Ambulatory referral to Physical Therapy; Future 4. Osteoporosis, unspecified osteoporosis type, unspecified pathological fracture presence - Ambulatory referral to Endocrinology; Future 5. History of colon polyps - Ambulatory referral to Gastroenterology; Future 6. History of basal cell carcinoma (BCC) - Ambulatory referral to Dermatology; Future 7. Encounter for screening mammogram for malignant neoplasm of breast - BI Mammogram Screening Tomosynthesis Bilateral W CAD Standard Protocol; Future 8. Macular pucker, left eye - Ambulatory referral to Ophthalmology; Future 9. Nevus of choroid of right eye - Ambulatory referral to Ophthalmology; Future 10. Nevus of choroid of left eye - Ambulatory referral to Ophthalmology; Future 11. Onychomycosis - Ambulatory referral to Podiatry; Future 12. Memory deficit Will obtain records from [place] work-up. Advanced directive copy given today. 13. Anxiety depression Resources for therapy given to patient. 14. HLD Continue atorvastatin 40 mg. We will discuss repeat labs at next appointment. documented in this encounter Miscellaneous Notes * PatientPass - Sydnee Espinosa DO - 02/17/2022 9:36 AM EST Patient Education Table of Contents Neck Exercises To view videos and all your education online visit, [email or web address] or scan this QR code with your smartphone. * Addendum Note - Sydnee Espinosa DO - 02/17/2022 9:00 AM ESTAddended by: SYDNEE ESPINOSA on: 02/17/2022 10:19 AM Modules accepted: Orders documented in this encounter Plan of Treatment Upcoming Encounters Date Type Department Care Team (Late st Contact Info) Description 01/04/2024 11:20 AM EDT Procedure Visit [facility] [address] [facility] Medical [facility] [place] Floor [address] [place] [address] Katie Jones AUD 01/06/2024 2:00 PM EDT Appointment [facility] [address] [place] [address] 01/09/2024 2:00 PM EDT Office Visit [facility] [address] [facility] [place] [address]th [address] [place] [address] Radha Coker MD [address] [place] [address] 01/10/2024 8:30 AM EDT Office Visit [facility] [address] [place] [address] Sydnee Espinosa DO [address] [facility] [place] [address] 01/11/2024 10:00 AM EDT Office Visit [facility] [address] [facility] [address] [place] [address] Kat Rico, PA [address] [place] [address] 01/20/2024 11:45 AM EDT Clinical Support [facility] [address] [place] [address] Maria Eugenia Lucero LAC [address] [place] [address] 01/30/2024 8:40 AM EST Office Visit [facility] [address] [facility] [place] [address] [place] [address] Jose Monique MD [address] [facility] [place] 15[address], [address] [place] [address] 02/27/2024 12:50 PM EST Office Visit [facility] [address] [place] [address] Kellie Bowser, OD [address] [facility] [place] [address] 06/19/2024 11:30 AM EDT Appointment [place] [address] [address] 06/19/2024 1:00 PM EDT Appointment [place] [address] [address] 08/21/2024 1:40 PM EDT Office Visit [facility] 3rd [place] [address] Satya Wright PA [address] [facility] [address] 3[address] [place] [address] 09/05/2024 10:30 AM EDT Office Visit [facility] [address] [place] [address] Tatiana Dominguez, KASH [address] [place], [place] [id number] Scheduled Orders Name Type Priority Associated Diagnoses Orde r Schedule Ear cerumen removal Procedures Routine Bilateral impacted cerumen Expected: 02/17/2022 (Approximate), Expires: 02/17/2023 BI Mammogram Screening Tomosynthesis Bilateral W CAD Standard Protocol Imaging Routine Encounter for screening mammogram for malignant neoplasm of breast Expected: 02/17/2022, Expires: 04/19/2023 Scheduled Referrals Name Type Priority Associated Diagnoses Order Schedule Ambulatory referral to Physical Therapy Outpatient Referral Routine Neck pain Expected: 02/17/2022 (Approximate), Expires: 02/17/2023 Ambulatory referral to Dermatology Outpatient Referral Routine History of basal cell carcinoma (BCC) Expected: 02/17/2022 (Approximate), Expires: 02/17/2023 Ambulatory referral to Gastroenterology Outpatient Referral Routine History of colon polyps Expected: 02/17/2022 (Approximate), Expires: 02/17/2023 Ambulatory referral to Endocrinology Outpatient Referral Routine Osteoporosis, unspecified osteoporosis type, unspecified pathological fracture presence Expected: 02/17/2022 (Approximate), Expires: 02/17/2023 Ambulatory referral to Ophthalmology Outpatient Referral Routine Macular pucker, left eye 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 Expected: 02/17/2022 (Approximate), Expires: 02/17/2023 Ambulatory referral to Podiatry Outpatient Referral Routine Onychomycosis Expected: 02/17/2022 (Approximate), Expires: 02/17/2023 documented as of this encounter Visit Diagnoses Diagnosis Bilateral impacted cerumen- Primary Impacted cerumen Dental infection Neck pain Cervicalgia Osteoporosis, unspecified osteoporosis type, unspecified pathological fracture presence History of colon polyps History of basal cell carcinoma (BCC) Encounter for screening mammogram for malignant neoplasm of breast Macular pucker, left eye Macular puckering of retina 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
--- OUTSIDE RECORDS SUMMARY | 2023-11-14 01:08 | XMS_ITS | Encounter Summary ---
Author Organization [facility] [place] [address] Care Team Providers Care Contact Lens Manufacturer Name Role Phone Ky Fernandez MD Primary Care Provider + [phone] Reason for Visit * Reason Comments Skin Check Encounter Details Date Type Department Care Team (Late st Contact Info) Description 05/13/2020 1:45 PM EST Office Visit Dermatology at [address] [address] Cm Randall MD [address] [facility] A DERMATOLOGY [place], [place] [id number] History of basal cell carcinoma; Nevus; [place] [...] canthus, and inferior nasal tip, treated in [facility] 2008 Gianna follows up for a [...] keratosis documented in this encounter Care Teams Contact Lens Manufacturer Relationship Specialty Start Date End Date Ky Fernandez MD [address] [place] [address] PCP - General Internal Medicine 12/26/15 01/08/21 documented as of this encounter
--- OUTSIDE RECORDS SUMMARY | 2023-11-14 01:08 | XMS_ITS | Encounter Summary ---
Author Organization [facility] Address [facility] [place] [address] Care Team Providers Care Bulb Inspector Name Role Phone Ky Fernandez MD Primary Care Provider + [phone] Encounter Details Date Type Department Care Team (Late st Contact Info) Description 07/30/2020 8:30 AM EDT Office [place] [address] Jaden Garcia MD [facility] [place] [address] Status post cataract extraction and insertion of [...] means documented in this encounter Care Teams Bulb Inspector Relationship Specialty Start Date End Date Ky Fernandez MD [address] [place] [address] PCP - General Internal Medicine 12/26/15 01/08/21 documented as of this encounter
--- OUTSIDE RECORDS SUMMARY | 2023-11-14 01:08 | XMS_ITS | Encounter Summary ---
Author Organization [facility] [place] [address] Care Team Providers Care Rpg Developer Name Role Phone Cesilia Stokes MD Primary Care Provider [phone] Encounter Details Date Type Department Care Team (Late st Contact Info) Description 01/20/2021 Telephone [place] [address] Odette Valdes Social History Tobacco Use Types [...] - 01/20/2021 3:55 PM EDT Gianna Infante [phone] Diagnosis/Indication: pancreatic lesion 1. Have you ever [...] to patient: You must have a responsible green party who will drive you to your procedure, [...] on filedocumented in this encounter Care Teams Rpg Developer Relationship Specialty Start Date End Date Cesilia Stokes MD [address] [place] [address] PCP - General Family Medicine 01/09/21 documented as of this encounter
--- OUTSIDE RECORDS SUMMARY | 2023-11-14 01:08 | XMS_ITS | Encounter Summary ---
Author [place] [address] Care Team Providers Care Locomotive Pipe Fitter Name Role Phone Cesilia Stokes MD Primary Care Provider [phone] Encounter Details Date Type Department Care Team (Latest Contact Info) Description 01/26/2021 10:26 PM EDT - 01/26/2021 11:59 PM EDT Hospital [place] [address] Discharge Disposition: Home Social History Tobacco Use [...] Report (01/26/2021 12:43 PM EDT) Final Diagnosis [id number] ? Location: [facility] The signing pathologist has (i) examined the relevant preparation(s) for the specimen(s) and (ii) rendered or confirmed the diagnosis(es). . ?Surgical Pathology DIAGNOSIS Toenail, nail clippings: - Fragments of nail plate with bacterial colonies - PAS/Fungus stain is negative for fungal hyphal organisms Electronically signed by: ?Daisy Henry MD Verified: ??01/30/2021 13:03 ??Dermatopathol ogist Performed at: ??-[facility] Dept. of Pathology, [place], [place] SPECIMEN(S) SUBMITTED A - Toenail clippings Referring Identifier: ??[id number] CLINICAL INFORMATION Onychomycosis SPECIMEN PROCESSING A - Labeled/Fixativ e: Patient demographics, fresh. Quantity/Size: Multiple, 1.7 x 1.5 x 0.4 cm in aggregate. Tissue Description: Irregular, thickened variegated yellow-white and yellow-green unguis fragments. Sections/Proces sing: Submitted en toto in 1 cassette labeled A1. ??shb 01/30/2021 1:03 PM EDT [facility] NAIL SPECIMEN / Unknown 01/26/2021 12:43 PM EDT 01/26/2021 12:43 PM EDT Narrative Resulting Agency Comment Spec In Lab / WKS Dina Alvarez ANIMAL CARE SUPERVISOR PATHOLOGY/CYTOLOGY ORDERABLES [facility] [place] [address] documented in this encounter Visit Diagnoses Not on filedocumented in this encounter Care Teams Locomotive Pipe Fitter Relationship Specialty Start Date End Date Cesilia Stokes MD [address] [place] [address] PCP - General Family Medicine 01/09/21 documented as of this encounter
--- OUTSIDE RECORDS SUMMARY | 2023-11-14 01:08 | XMS_ITS | Encounter Summary ---
[place] [address] Care Team Providers Care Mechanical Design Engineer Facilities Name Role Phone Ky Fernandez MD Primary Care Provider [phone] Encounter Details Date Type Department Care Team (Latest Contact Info) Description 02/16/2016 10:50 AM EST - 02/16/2016 11:59 PM EST Hospital Encounter [place] [address] Ky Fernandez MD [address] [place] [address] Encounter for screening mammogram for malignant neoplasm [...] No mammographic evidence of malignancy. RECOMMENDATION: The [employer] and The Society of [...] mammogram documented in this encounter Care Teams Mechanical Design Engineer Facilities Relationship Specialty Start Date End Date Ky Fernandez MD [address] [place] [address] PCP - General Internal Medicine 12/26/15 01/08/21 documented as of this encounter
--- OUTSIDE RECORDS SUMMARY | 2023-11-14 01:08 | XMS_ITS | Encounter Summary ---
Author Organization [facility] Address [facility] [place] [address] Care Team Providers Care Bowl Sander Name Role Phone Ky Fernandez MD Primary Care Provider [phone] Reason for Visit * Reason Comments Epiretinal Membrane Encounter Details Date Type Department Care Team (Late st Contact Info) Description 08/28/2019 1:30 PM EDT Office Visit Ophthalmology at [facility] [place] [address] Jami Coon MD [facility] [place] [address] Epiretinal membrane (ERM) of left eye Social [...] eye documented in this encounter Care Teams Bowl Sander Relationship Specialty Start Date End Date Ky Fernandez MD [address] [place] [address] PCP - General Internal Medicine 12/26/15 01/08/21 documented as of this encounter
--- OUTSIDE RECORDS SUMMARY | 2023-11-14 01:08 | XMS_ITS | Encounter Summary ---
Author Organization [facility] Address [facility] [place] [address] Care Team Providers Care Test Rack Operator Name Role Phone Ky Fernandez MD Primary Care Provider + [phone] Encounter Details Date Type Department Care Team (Late st Contact Info) Description 05/28/2020 11:49 AM EST - 05/28/2020 2:56 PM EST Hospital Encounter Outpatient [place] [address] Jaden Garcia MD [facility] [place] [address] Discharge Disposition: Home Social History Tobacco Use [...] CATARACT surgery Dr. Salcido Section of ophthalmology [facility] [phone] - Wear either the eye shield or glasses of any kind 24 hours per day for the first week following surgery. - Your appointment tomorrow with Dr. Salcido [facility]. Bring your Eye Kit to all postoperative visits. - Call you Primary Care Doctor or the Emergency Room for any non eye related medical issues. - It is normal to have a scratchy sensation or mild pain in your eye, but if you have any severe eye pain, vomiting or bleeding call [phone] and ask to speak to the ophthalmology doctor commercial parts professional. - Your eye will be red tomorrow [...] 8 am - 5pm call ophthalmology : [phone] After 5pm or on a weekend or holiday: call the [facility] fish cutting machine operator and ask for the ophthalmology physician commercial parts professional. documented in this encounter Medications at Time [...] patient was questioned regarding travel outside of [place] states, fever, cough, SOB or other illness [...] again, temperature will be taken, patient and caregiver/bus driver/monitor will be given a mask to wear the entire time they are in the [facility] building. * Anna Davies RN - 05/21/2020 10:51 AM EST During this call the patient was questioned regarding travel outside of [place] states, fever, cough, SOB or other illness [...] again, temperature will be taken, patient and caregiver/bus driver/monitor will be given a mask to wear [...] Salcido MD - 05/28/2020 2:22 PM EST [facility] Operative [...] Rmvl Insertion Io Lens Prosth W/O Ecp ([id number]) 05/28/2020 2:16 PM EST Cataract documented in [...] RN) documented in this encounter Care Teams Test Rack Operator Relationship Specialty Start Date End Date Ky Fernandez MD [address] [place] [address] PCP - General Internal Medicine 12/26/15 01/08/21 documented as of this encounter
--- OUTSIDE RECORDS SUMMARY | 2023-11-14 01:08 | XMS_ITS | Encounter Summary ---
Author Organization [facility] Address [facility] [place] [address] Care Team Providers Care Development Executive Name Role Phone Kaci Angulo EARL Primary Care Provider [phone] Encounter Details Date Type Department Care Team (Late st Contact Info) Description 10/08/2014 Orders [place] [address] Kaela Ashley MD [facility] [place] [address] Breast mass Social History Tobacco Use Types [...] using tomographic guidance anddirect digital imaging. The [employer]gic Affirm unit was used. The patient was [...] tomographic guidance and direct digital imaging. ??The [employer] Affirm unit was used. ??The patient was in a upright position. 6 core biopsy specimens were obtained using a [employer]. [employer] 9g 20mm device. Biopsy specimens were radiographed. [...] using tomographic guidance anddirect digital imaging. The [employer] Affirm unit was used. The patient was judy upright position. 6 core biopsy specimens were obtained using a [employer] Eviva 9g 20mmdevice. Biopsy specimens were radiographed. [...] breast documented in this encounter Care Teams Development Executive Relationship Specialty Start Date End Date Kaci Angulo APRN [address] [place] [address] PCP - General 08/01/14 12/25/15 documented as of this encounter
--- OUTSIDE RECORDS SUMMARY | 2023-11-14 01:08 | XMS_ITS | Encounter Summary ---
[place] [address] Care Team Providers Care Project Crew Worker Name Role Phone Kaci Angulo APRN Primary Care Provider [phone] Encounter Details Date Type Department Care Team (Latest Contact Info) Description 10/07/2014 12:59 PM EDT - 10/07/2014 11:59 PM EDT Hospital [place] [address] CLINIC, Kaci Kline, EARL [address] [place] [address] Abnormal mammogram, unspecified Discharge Disposition: Home Social [...] lateral and medial. Tomographicimaging was performed COMPARISONS: [id number] BREAST DENSITY: There are scattered areas of [...] unspecified documented in this encounter Care Teams Project Crew Worker Relationship Specialty Start Date End Date Kaci Angulo, TIRE REPAIR MECHANIC [address] [place] [address] PCP - General 08/01/14 12/25/15 documented as of this encounter
--- OUTSIDE RECORDS SUMMARY | 2023-11-14 01:08 | XMS_ITS | Encounter Summary ---
Author Organization [facility] Address [facility] [place] [address] Care Team Providers Care Acid Plant Helper Name Role Phone Ky Fernandez MD Primary Care Provider + [phone] Encounter Details Date Type Department Care Team (Late st Contact Info) Description 06/25/2020 11:32 AM EDT - 06/25/2020 1:35 PM EDT Hospital Encounter Outpatient [place] [address] Jaden Garcia MD [facility] [place] [address] Discharge Disposition: Home Social History Tobacco Use [...] Cataract Surgery Dr Salcido Section of ophthalmology [facility] [place] [phone] -Do not remove the eye patch or shield until you are seen tomorrow unless instructed otherwise by Dr. Salcido. - Wear either the eye shield or glasses of any kind 24 hours per day for the first week following surgery. - Your appointment tomorrow with [facility]. [facility] Bring your Eye Kit to all postoperative visits. - Call you Primary Care Doctor or the Emergency Room for any non eye related medical issues. - It is normal to have a scratchy sensation or mild pain in your eye, but if you have any severe eye pain, vomiting or bleeding call [phone] and ask to speak to the ophthalmology doctor crayon sorting machine feeder. - Your eye will be red tomorrow [...] call: 8am to 5 pm M-F - [phone] After 5 pm or on a weekend or holiday please call the hospital shotblast equipment operator at [phone] and ask foropthalmology MD crayon sorting machine feeder. documented in this encounter Medications at Time [...] Salcido MD - 06/25/2020 1:08 PM EDT [facility] [place] [place] Operative Note [...] Rmvl Insertion Io Lens Prosth W/O Ecp ([id number]) 06/25/2020 1:01 PM EDT Cataract documented in [...] RN) documented in this encounter Care Teams Acid Plant Helper Relationship Specialty Start Date End Date Ky Fernandez MD [address] [place] [address] PCP - General Internal Medicine 12/26/15 01/08/21 documented as of this encounter
--- OUTSIDE RECORDS SUMMARY | 2023-11-14 01:08 | XMS_ITS | Encounter Summary ---
[place] [address] Care Team Providers Care Recordist Name Role Phone Kaci Angulo EARL Primary Care Provider [phone] Encounter Details Date Type Department Care Team (Latest Contact Info) Description 10/07/2014 1:00 PM EDT - 10/07/2014 11:59 PM EDT Hospital Encounter [place] [address] Abnormal mammogram, unspecified Social History Tobacco Use [...] medial. ??Tomographic imaging was performed ?? COMPARISONS: [id number] BREAST DENSITY: There are scattered areas of [...] lateral and medial. Tomographicimaging was performed COMPARISONS: [id number] BREAST DENSITY: There are scattered areas of [...] unspecified documented in this encounter Care Teams Recordist Relationship Specialty Start Date End Date Kaci Angulo APRN [address] [place] [address] PCP - General 08/01/14 12/25/15 documented as of this encounter
--- OUTSIDE RECORDS SUMMARY | 2023-11-14 01:08 | XMS_ITS | Encounter Summary ---
Author Organization [facility] Address [facility] [place] [address] Care Team Providers Care Men'S Swim Coach Name Role Phone Ky Fernandez MD Primary Care Provider + [phone] Encounter Details Date Type Department Care Team (Late st Contact Info) Description 06/23/2020 Telephone [place] [address] Jaden Garcia MD [facility] [place] [address] Social History Tobacco Use Types Packs/Day Years [...] on filedocumented in this encounter Care Teams Men'S Swim Coach Relationship Specialty Start Date End Date Ky Fernandez MD [address] [place] [address] PCP - General Internal Medicine 12/26/15 01/08/21 documented as of this encounter
--- OUTSIDE RECORDS SUMMARY | 2023-11-14 01:08 | XMS_ITS | Encounter Summary ---
Author Organization [facility] Address [facility] [place] [address] Care Team Providers Care County Administrator Name Role Phone Ky Fernandez MD Primary Care Provider + [phone] Encounter Details Date Type Department Care Team (Late st Contact Info) Description 03/18/2020 Telephone [place] [id number] Jaden Garcia MD [facility] [place] [address] Social History Tobacco Use Types Packs/Day Years [...] on filedocumented in this encounter Care Teams County Administrator Relationship Specialty Start Date End Date Ky Fernandez MD [address] [place] [address] PCP - General Internal Medicine 12/26/15 01/08/21 documented as of this encounter
--- OUTSIDE RECORDS SUMMARY | 2023-11-14 01:08 | XMS_ITS | Encounter Summary ---
[place] [address] Care Team Providers Care Risk Prevention Engineer Name Role Phone Kaci Angulo APRN Primary Care Provider [phone] Encounter Details Date Type Department Care Team (Late st Contact Info) Description 05/30/2015 Ancillary Procedure [place] [address] Cesilia Stokes MD [address] [place] [address] Social History Tobacco Use Types Packs/Day Years [...] DXA Images (05/30/2015 12:00 AM EST) Narrative [facility] - 10/20/2021 2:50 PM EDT This exam is auto-finalizing. It's purpose is for storage only. Cesilia Stokes MD IMG FILM LIBRARY ORD ERABLES [facility] [place], [place] documented in this encounter Visit Diagnoses Not on filedocumented in this encounter Care Teams Risk Prevention Engineer Relationship Specialty Start Date End Date Kaci Angulo APRN [address] [place] [address] PCP - General 08/01/14 12/25/15 documented as of this encounter
--- OUTSIDE RECORDS SUMMARY | 2023-11-14 01:08 | XMS_ITS | Encounter Summary ---
Author Organization [facility] Address [facility] [place] [address] Care Team Providers Care Associate Music Professor Name Role Phone Ky Fernandez MD Primary Care Provider + [phone] Reason for Visit * Reason Onset Date Comments Other 06/18/2020 Calling to repor t gum infection Encounter Details Date Type Department Care Team (Late st Contact Info) Description 06/18/2020 Telephone [place] [address] Jaden Garcia MD [facility] [place] [address] Other (Calling to report gum infection) Social [...] 11:00 AM Author Type: Physician Status: Signed Turn Laster: Jaden Salcido MD (Physician) ?? Assessment: ?? [...] on filedocumented in this encounter Care Teams Associate Music Professor Relationship Specialty Start Date End Date Ky Fernandez MD [address] [place] [address] PCP - General Internal Medicine 12/26/15 01/08/21 documented as of this encounter
--- OUTSIDE RECORDS SUMMARY | 2023-11-14 01:08 | XMS_ITS | Encounter Summary ---
Author Organization [facility] Address [facility] [place] [address] Care Team Providers Care Plc Programmer Name Role Phone Ky Fernandez MD Primary Care Provider + [phone] Reason for Visit * Reason Onset Date Comments Follow-up 08/29/2019 Encounter Details Date Type Department Care Team (Late st Contact Info) Description 08/29/2019 Telephone Ophthalmology at [facility] [place] [address] Jami Coon MD [facility] [place] [id number] Follow-up Social History Tobacco Use Types Packs/Day [...] on filedocumented in this encounter Care Teams Plc Programmer Relationship Specialty Start Date End Date Ky Fernandez MD [address] [place] [address] PCP - General Internal Medicine 12/26/15 01/08/21 documented as of this encounter
--- OUTSIDE RECORDS SUMMARY | 2023-11-14 01:08 | XMS_ITS | Encounter Summary ---
[place] [address] Care Team Providers Care Pain Coordinator Name Role Phone Ky Fernandez MD Primary Care Provider [phone] Encounter Details Date Type Department Care Team (Latest Contact Info) Description 04/18/2017 2:06 PM EST - 04/18/2017 11:59 PM EST Hospital [place] [address] Ky Fernandez MD [address] [place] [address] Visit for screening mammogram Discharge Disposition: Home [...] BIRADS CATEGORY 2: Benign findings. * ??The [employer] and The Society of [...] breast MRI are appropriate. Ky Fernandez MD [facility] [place] MAMMO ORDERABLES documented in this encounter Visit Diagnoses Diagnosis Visit for screening mammogram Other screening mammogram documented in this encounter Care Teams Pain Coordinator Relationship Specialty Start Date End Date Ky Fernandez MD [address] [place] [address] PCP - General Internal Medicine 12/26/15 01/08/21 documented as of this encounter
--- OUTSIDE RECORDS SUMMARY | 2023-11-14 01:08 | XMS_ITS | Encounter Summary ---
Author Organization [facility] Address [facility] [place] [address] Care Team Providers Care Funeral Service Apprentice Name Role Phone Ky Fernandez MD Primary Care Provider + [phone] Encounter Details Date Type Department Care Team (Late st Contact Info) Description 05/26/2020 Telephone [place] [address] Jaden Garcia MD [facility] [place] [address] Social History Tobacco Use Types Packs/Day Years [...] on filedocumented in this encounter Care Teams Funeral Service Apprentice Relationship Specialty Start Date End Date Ky Fernandez MD [address] [place] [address] PCP - General Internal Medicine 12/26/15 01/08/21 documented as of this encounter
--- OUTSIDE RECORDS SUMMARY | 2023-11-14 01:08 | XMS_ITS | Encounter Summary ---
[place] [address] Care Team Providers Care Pocket Stitcher Name Role Phone Kaci Angulo EARL Primary Care Provider [phone] Encounter Details Date Type Department Care Team (Late st Contact Info) Description 10/09/2014 9:03 AM EDT - 10/09/2014 11:59 PM EDT Hospital [place] [address] Breast mass Social History Tobacco Use Types Packs/Day Years Used Date Smoking Tobacco: Never Assessed Sex and Gender Information Value Date Recorded Sex Assigned at Female 05/27/2020 7:34 AM EST Gender Identity Not on file Sexual Orientation Straight 05/27/2020 7: 34 AM EST documented as of this encounter Progress Notes * Carmen Duarte - 10/08/2014 12:58 PM EDT Pre-procedure note [...] tomographic guidance and direct digital imaging. ??The [employer] Affirm unit was used. ??The patient was in a upright position. 6 core biopsy specimens were obtained using a [employer] Eviva 9g 20mm device. Biopsy specimens were [...] using tomographic guidance anddirect digital imaging. The [employer] Affirm unit was used. The patient was judy upright position. 6 core biopsy specimens were obtained using a [employer] Eviva 9g 20mmdevice. Biopsy specimens were radiographed. [...] breast documented in this encounter Care Teams Pocket Stitcher Relationship Specialty Start Date End Date Kaci Angulo, GREENHOUSE WORKER [address] [place] [address] PCP - General 08/01/14 12/25/15 documented as of this encounter
--- OUTSIDE RECORDS SUMMARY | 2023-11-14 01:08 | XMS_ITS | Encounter Summary ---
[place] [address] Care Team Providers Care Instrument Calibrator Name Role Phone Ky Fernandez MD Primary Care Provider + [phone] Reason for Visit * Reason Comments Skin Check Encounter Details Date Type Department Care Team (Late st Contact Info) Description 05/25/2019 2:30 PM EST Office Visit Dermatology at [address] [address] Cm Randall MD [address] [facility] [place] [address] History of basal cell carcinoma; Nevus Social [...] canthus, and inferior nasal tip, treated in [facility] 2008 Gianna follows up concerned about lesion recurrent now on the left shinto. This was last treated when she was living in [place] by a heavy forging machine operator there with liquid nitrogen. She wonders whether this needs treatment in my office today. She did not want to wait another year to come back. She has noother lesions of concern today. Physical examination reveals a pleasant 73-year-old woman who has an actinic keratosis which is superficial and in 2 sections present on the left shinto. There is no underlying induration. Examination of the rest of her face is benign. Assessment and plan: Actinic keratosis left shinto [address] 2 x 2 applied to [...] unspecified documented in this encounter Care Teams Instrument Calibrator Relationship Specialty Start Date End Date Ky Fernandez MD [address] [place] [address] PCP - General Internal Medicine 12/26/15 01/08/21 documented as of this encounter
--- OUTSIDE RECORDS SUMMARY | 2023-11-14 01:08 | XMS_ITS | Encounter Summary ---
[place] [address] Care Team Providers Care Retail Project Merchandiser Name Role Phone Ky Fernandez MD Primary Care Provider [phone] Encounter Details Date Type Department Care Team (Late st Contact Info) Description 06/25/2020 1:08 PM EDT - 06/25/2020 1:45 PM EDT Surgery [facility] [place] [address] Jaden Garcia MD [facility] [place] [address] CATARACT EXTRACTION, EXTRACAPSULAR, W/ LENS INSERTION (WRVU [...] Cataract Surgery Dr Salcido Section of ophthalmology [facility] [phone] -Do not remove the eye patch or shield until you are seen tomorrow unless instructed otherwise by Dr. Salcido. - Wear either the eye shield or glasses of any kind 24 hours per day for the first week following surgery. - Your appointment tomorrow with Dr. Salcido [facility]. Bring your Eye Kit to all postoperative visits. - Call you Primary Care Doctor or the Emergency Room for any non eye related medical issues. - It is normal to have a scratchy sensation or mild pain in your eye, but if you have any severe eye pain, vomiting or bleeding call [phone] and ask to speak to the ophthalmology doctor truer pinion and wheel. - Your eye will be red tomorrow [...] call: 8am to 5 pm -F - [phone] After 5 pm or on a weekend or holiday please call the hospital wet plant operator at [phone] and ask foropthalmology MD truer pinion and wheel. documented in this encounter Medications at Time [...] Salcido MD - 06/25/2020 1:08 PM EDT [facility] Operative Note Patient Name: Gianna Infante : [...] Rmvl Insertion Io Lens Prosth W/O Ecp ([id number]) 06/25/2020 1:01 PM EDT Cataract documented in [...] RN) documented in this encounter Care Teams Retail Project Merchandiser Relationship Specialty Start Date End Date Ky Fernandez MD [address] [place] [address] PCP - General Internal Medicine 12/26/15 01/08/21 documented as of this encounter
--- OUTSIDE RECORDS SUMMARY | 2023-11-14 01:08 | XMS_ITS | Encounter Summary ---
Author Organization [facility] Address [facility] [place] [address] Care Team Providers Care Dish Cloth Inspector Name Role Phone Ky Fernandez MD Primary Care Provider + [phone] Reason for Visit * Reason Comments Eye Exam Cataract Epiretinal Membrane Encounter Details Date Type Department Care Team (Late st Contact Info) Description 04/02/2019 1:00 PM EST Office Visit Ophthalmology at [facility] [place] [address] Erika Maddox, OD [facility] [place] [address] Combined forms of age-related cataract of both [...] people find a dietary capsule supplement of [place] 3 Fatty Acids (EPA 450mg and DHA 300mg) and Flaxseed Oil (1000mg) help their eye comfort. Please take 3193-5431 mg of omega 3 fatty acids per day. These products can be bought in a [employer] store or there is a capsule called [...] Final Rx Eyeglass Final Rx Sphere Cylinder [place] Add Right -3.50 +1.25 110 +3.00 Left [...] presbyopia documented in this encounter Care Teams Dish Cloth Inspector Relationship Specialty Start Date End Date Ky Fernandez MD [address] [place] [address] PCP - General Internal Medicine 12/26/15 01/08/21 documented as of this encounter
--- OUTSIDE RECORDS SUMMARY | 2023-11-14 01:08 | XMS_ITS | Encounter Summary ---
[place] [address] Care Team Providers Care Vp Construction Name Role Phone Ky Fernandez MD Primary Care Provider [phone] Encounter Details Date Type Department Care Team (Latest Contact Info) Description 03/30/2018 10:55 AM EST - 03/30/2018 11:59 PM EST Hospital Encounter Mammography/[place] [address] Ky Fernandez MD [address] [place] [address] Visit for screening mammogram Discharge Disposition: Home [...] mammogram documented in this encounter Care Teams Vp Construction Relationship Specialty Start Date End Date Ky Fernandez MD [address] [place] [address] PCP - General Internal Medicine 12/26/15 01/08/21 documented as of this encounter
--- OUTSIDE RECORDS SUMMARY | 2023-11-14 01:08 | XMS_ITS | Encounter Summary ---
Author Organization [facility] Address [facility] [place] [address] Care Team Providers Care Curator Of Photography And Prints Name Role Phone Ky Fernandez MD Primary Care Provider + [phone] Reason for Visit * Reason Comments Blurred Vision Cataract Encounter Details Date Type Department Care Team (Late st Contact Info) Description 06/16/2018 10:00 AM EDT Office [place] [address] Oracio Thompson MD [facility] [place] [address] Combined forms of age-related cataract of both [...] choroid documented in this encounter Care Teams Curator Of Photography And Prints Relationship Specialty Start Date End Date Ky Fernandez MD [address] [place] [address] PCP - General Internal Medicine 12/26/15 01/08/21 documented as of this encounter
--- OUTSIDE RECORDS SUMMARY | 2023-11-14 01:08 | XMS_ITS | Encounter Summary ---
[place] [address] Care Team Providers Care Auto Service Advisor Name Role Phone Ky Fernandez MD Primary Care Provider [phone] Encounter Details Date Type Department Care Team (Latest Contact Info) Description 04/09/2020 10:34 AM EST - 04/09/2020 11:59 PM EST Hospital Encounter Mammography/[place] [address] Ky Fernandez MD [address] [place] [address] Visit for screening mammogram Discharge Disposition: Home [...] mammogram documented in this encounter Care Teams Auto Service Advisor Relationship Specialty Start Date End Date Ky Fernandez MD [address] [place] [address] PCP - General Internal Medicine 12/26/15 01/08/21 documented as of this encounter
--- OUTSIDE RECORDS SUMMARY | 2023-11-14 01:08 | XMS_ITS | Encounter Summary ---
[place] [address] Care Team Providers Care Assisted Living Administrator Name Role Phone Kaci Angulo EARL Primary Care Provider [phone] Encounter Details Date Type Department Care Team (Late st Contact Info) Description 10/09/2014 9:03 AM EDT - 10/09/2014 11:59 PM EDT Hospital [place] [address] Breast mass Social History Tobacco Use Types [...] tomographic guidance and direct digital imaging. ??The [employer] Affirm unit was used. ??The patient was in a upright position. 6 core biopsy specimens were obtained using a SurMotility Count Eviva 9g 20mm device. Biopsy specimens were [...] using tomographic guidance anddirect digital imaging. The [employer] Affirm unit was used. The patient was [...] (10/09/2014 9:41 AM EDT) Final Diagnosis ? [facility] ? Provider: ?? LEWIS ASHLEY ?Pt. Name: ?? GIANNA DOBSON ? Acc #: ?[id number] ?Pt. ? Col Date: ?? 10/09/2014 ? [...] radial scar, CA 10/10/2014 12:15 PM EDT [facility] BREAST STRUCTURE / Unknown 10/09/2014 9:41 AM EDT 10/09/2014 9:41 AM EDT Lewis Ashley MD PATHOLOGY/CYTOLOGY O MIHIR Performing Organization Address City/[facility]/ZIP Co de Phone Number [facility] [place] [phone] * Specimen to Pathology (surgical or derm) [...] mg documented in this encounter Care Teams Assisted Living Administrator Relationship Specialty Start Date End Date Kaci Angulo APRN [address] [place] [address] PCP - General 08/01/14 12/25/15 documented as of this encounter
--- OUTSIDE RECORDS SUMMARY | 2023-11-14 01:08 | XMS_ITS | Encounter Summary ---
[place] [address] Care Team Providers Care Event Coordinator Name Role Phone Ky Fernandez MD Primary Care Provider + [phone] Reason for Visit * Reason Comments Skin Check * Consultation (Routine) - Specialty Diagnoses / Procedures Referred By Farrah shook Referred To Contact Dermatology Diagnoses Skin Check Procedures Skin Check Kaci Angulo APRN [address] [place] [address] Cm Randall MD [address] [place] [address], [facility] [place] [address] Referral ID Status Reason Start Date Expiration Date V isits Requested Visits Authorized [id number] 06/20/2017 06/20/2018 1 1 Encounter Details Date Type Department Care Team (Late st Contact Info) Description 05/16/2018 1:45 PM EST Office Visit Dermatology at [address] [address] Cm Randall MD [address] [place] [address], [facility] [place] [address] History of basal cell carcinoma; [...] canthus, and inferior nasal tip, treated in [facility] 2008 Gianna is a 72-year-old woman who grew up in part in [place] in [place], then for many years livedin [place]. She is now returned to [place] and would like to establish dermatologic skin care here in my practice. She has no new lesions of concern. She has not had a dermatologic check for about 4 years since she returned to [place]. She is referred today by Dr. Mauro Fernandez for skin check. Is no personal or family history of melanoma. He had a fair amount of sun exposure growing up. Her skin cancers were treated at [facility] in [place] where she was then followed on a [...] unspecified documented in this encounter Care Teams Event Coordinator Relationship Specialty Start Date End Date Ky Fernandez MD [address] [place] [address] PCP - General Internal Medicine 12/26/15 01/08/21 documented as of this encounter
--- OUTSIDE RECORDS SUMMARY | 2023-11-14 01:08 | XMS_ITS | Encounter Summary ---
Author Organization [facility] Address [facility] [place] [address] Care Team Providers Care Guard Manager Name Role Phone Ky Fernandez MD Primary Care Provider + [phone] Reason for Visit * Reason Onset Date Comments Questions 03/12/2020 CEIOL Encounter Details Date Type Department Care Team (Late st Contact Info) Description 03/12/2020 Tele[place] [address] Jaden Garcia MD [facility] [place] [address] Questions (CEIOL) Social History Tobacco Use Types [...] on filedocumented in this encounter Care Teams Guard Manager Relationship Specialty Start Date End Date Ky Fernandez MD [address] [place] [address] PCP - General Internal Medicine 12/26/15 01/08/21 documented as of this encounter
--- OUTSIDE RECORDS SUMMARY | 2023-11-14 01:08 | XMS_ITS | Encounter Summary ---
Author Organization [facility] Address [facility] [place] [address] Care Team Providers Care Woven Wood Shade Assembler Name Role Phone Ky Fernandez MD Primary Care Provider + [phone] Reason for Visit * Reason Onset Date Comments Post Op CE/IOL OS Post Op 06/06/2020 Encounter Details Date Type Department Care Team (Late st Contact Info) Description 06/06/2020 11:00 AM EST Office [place] [address] Jaden Garcia MD [facility] [place] [address] Status post cataract extraction and insertion of [...] until gone. left eye Prednisolone Acetate 1% [place] or White Taper as follows: 3 x [...] if desired Call the eye clinic at [phone] if you experience any unusual redness, pain, flashes or floaters, or vision changes. You can call this number day or night. After office hours, the mixing house operator will connect you with the doctor beverage sales consultant. documented in this encounter Progress Notes * [...] means documented in this encounter Care Teams Woven Wood Shade Assembler Relationship Specialty Start Date End Date Ky Fernandez MD [address] [place] [address] PCP - General Internal Medicine 12/26/15 01/08/21 documented as of this encounter
--- OUTSIDE RECORDS SUMMARY | 2023-11-14 01:08 | XMS_ITS | Encounter Summary ---
[place] [address] Care Team Providers Care Wire Basket Maker Name Role Phone Cesilia Stokes MD Primary Care Provider [phone] Reason for Referral * Diagnostic Test (Routine) - Closed Specialty Diagnoses / Procedures Referred By Farrah shook Referred To Contact Radiology Diagnoses Encounter for screening mammogram for malignant neoplasm of breast Procedures Mammo Screening Cad and Juan Bilateral Cesilia Stokes MD [address] [place] [address] [place] [address] Referral ID Status Reason Start Date Expiration Date V isits Requested Visits Authorized [id number] Closed Specialty Service Requested 02/23/2021 08/23/2022 1 1 Reason for Visit * Diagnostic Test (Routine) - Closed Specialty Diagnoses / Procedures Referred By Farrah shook Referred To Contact Radiology Diagnoses Encounter for screening mammogram for malignant neoplasm of breast Procedures Mammo Screening Cad and Juan Bilateral Cesilia Stokes MD [address] [place] [address] [facility] [place] [address] Referral ID Status Reason Start Date Expiration Date V isits Requested Visits Authorized [id number] Closed Specialty Service Requested 02/23/2021 08/23/2022 1 1 Encounter Details Date Type Department Care Team (Latest Contact Info) Description 04/10/2021 1:53 PM EST - 04/10/2021 11:59 PM EST Hospital Encounter Mammography/[place] [address] Cesilia Stokes MD [address] [place] [address] Encounter for screening mammogram for malignant neoplasm [...] mammogram documented in this encounter Care Teams Wire Basket Maker Relationship Specialty Start Date End Date Cesilia Stokes MD [address] [place] [address] PCP - General Family Medicine 01/09/21 documented as of this encounter
--- OUTSIDE RECORDS SUMMARY | 2023-11-14 01:08 | XMS_ITS | Encounter Summary ---
Author Organization [facility] [place] [address] Care Team Providers Care Tester Food Products Name Role Phone Ky Fernandez MD Primary Care Provider + [phone] Reason for Visit * Reason Comments Procedure Encounter Details Date Type Department Care Team (Latest Contact Info) Description 06/16/2018 1:00 PM EDT [place] [address] [place] [address] Age-related nuclear cataract, bilateral (Primary Dx) Social [...] Procedure Name Priority Date/Time Associated Diagnosis Comments [id number] CALC BY LASER INTERFEROMETRY - OU - BOTH EYES Routine 06/19/2018 5:06 PM EDT Age-related nuclear cataract, bilateral documented in this encounter Results * [id number] CALC BY LASER [id number]-OCDR EYES (06/19/2018 5:06 PM EDT) Anatomical Region [...] Target Refraction No Value exists for the SHOT HOLE SHOOTER: DHOPH#[id number] No Value exists for the SHOT HOLE SHOOTER: DHOPH#017 ?? Axial Length 25.5 (mm) 25.66 [...] sclerosis documented in this encounter Care Teams Tester Food Products Relationship Specialty Start Date End Date Ky Fernandez MD [address] [place] [address] PCP - General Internal Medicine 12/26/15 01/08/21 documented as of this encounter
--- OUTSIDE RECORDS SUMMARY | 2023-11-14 01:08 | XMS_ITS | Encounter Summary ---
Author Organization [facility] Address [facility] [place] [address] Care Team Providers Care Nuclear Physicist Name Role Phone Ky Fernandez MD Primary Care Provider + [phone] Reason for Visit * Reason Onset Date Comments Post Op Post Op 07/02/2020 Encounter Details Date Type Department Care Team (Late st Contact Info) Description 07/02/2020 10:00 AM EDT Office [place] [address] Jaden Garcia MD [facility] [place] [address] Status post cataract extraction and insertion of [...] until gone. right eye Prednisolone Acetate 1% [place] or White Taper as follows: 3 x [...] if desired Call the eye clinic at [phone] if you experience any unusual redness, pain, flashes or floaters, or vision changes. You can call this number day or night. After office hours, the filteration operator will connect you with the doctor electronics assembler and tester. documented in this encounter Progress Notes * [...] means documented in this encounter Care Teams Nuclear Physicist Relationship Specialty Start Date End Date Ky Fernandez MD [address] [place] [address] PCP - General Internal Medicine 12/26/15 01/08/21 documented as of this encounter
--- OUTSIDE RECORDS SUMMARY | 2023-11-14 01:08 | XMS_ITS | Encounter Summary ---
Author Organization [facility] Address [facility] [place] [address] Care Team Providers Care Hand Fur Cleaner Name Role Phone Ky Fernandez MD Primary Care Provider + [phone] Encounter Details Date Type Department Care Team (Late st Contact Info) Description 05/27/2020 9:30 AM EST Office [place] [address] Jaden Garcia MD [facility] [place] [address] Combined forms of age-related cataract of both [...] cataract documented in this encounter Care Teams Hand Fur Cleaner Relationship Specialty Start Date End Date Ky Fernandez MD [address] [place] [address] PCP - General Internal Medicine 12/26/15 01/08/21 documented as of this encounter
--- OUTSIDE RECORDS SUMMARY | 2023-11-14 01:08 | XMS_ITS | Encounter Summary ---
Author Organization [facility] Address [facility] [place] [address] Care Team Providers Care Credit Product Analyst Name Role Phone Ky Fernandez MD Primary Care Provider + [phone] Reason for Visit * Reason Onset Date Comments Appointment 03/08/2020 Encounter Details Date Type Department Care Team (Late st Contact Info) Description 03/08/2020 Telephone Ophthalmology at [facility] [place] [address] Jami Coon MD [facility] [place] [address] Appointment Social History Tobacco Use Types Packs/Day [...] on filedocumented in this encounter Care Teams Credit Product Analyst Relationship Specialty Start Date End Date Ky Fernandez MD [address] [place] [address] PCP - General Internal Medicine 12/26/15 01/08/21 documented as of this encounter
--- OUTSIDE RECORDS SUMMARY | 2023-11-14 01:08 | XMS_ITS | Encounter Summary ---
Author Organization [facility] [place] [address] Care Team Providers Care Construction Contractor Name Role Phone Cesilia Stokes MD Primary Care Provider [phone] Encounter Details Date Type Department Care Team (Late st Contact Info) Description 02/23/2021 [place] [address] Odette Valdes Social History Tobacco Use Types [...] - 02/23/2021 2:37 PM EST Gianna Infante [id number] Diagnosis/Indication: disease of pancreas 1. Have you [...] on filedocumented in this encounter Care Teams Construction Contractor Relationship Specialty Start Date End Date Cesilia Stokes MD [address] [place] [address] PCP - General Family Medicine 01/09/21 documented as of this encounter
--- OUTSIDE RECORDS SUMMARY | 2023-11-14 01:08 | XMS_ITS | Encounter Summary ---
Author Organization [facility] Address [facility] [place] [address] Care Team Providers Care Firer Bisque Kiln Name Role Phone Ky Fernandez MD Primary Care Provider + [phone] Reason for Visit * Reason Onset Date Comments Post Op Post Op 05/29/2020 Encounter Details Date Type Department Care Team (Late st Contact Info) Description 05/29/2020 2:45 PM EST Office [place] [address] Jaden Garcia MD [facility] [place] [address] Status post cataract extraction and insertion of [...] Drop Eye: Ketorolac [place] 4 x daily left eye Prednisolone Acetate 1% [place] or White 4 x daily left eye [...] eye closed) Call the eye clinic at [phone] if you experience any unusual redness, pain, flashes or floaters, or vision changes. You can call this number day or night. After office hours, the grain wafer machine operator will connect you with the doctor physician relations specialist. documented in this encounter Progress Notes [...] means documented in this encounter Care Teams Firer Bisque Kiln Relationship Specialty Start Date End Date Ky Fernandez MD [address] [place] [address] PCP - General Internal Medicine 12/26/15 01/08/21 documented as of this encounter
--- OUTSIDE RECORDS SUMMARY | 2023-11-14 01:08 | XMS_ITS | Encounter Summary ---
Author Organization [facility] Address [facility] [place] [address] Care Team Providers Care House Player Name Role Phone Ky Fernandez MD Primary Care Provider + [phone] Reason for Visit * Reason Onset Date Comments Questions 08/03/2019 Encounter Details Date Type Department Care Team (Late st Contact Info) Description 08/03/2019 Telephone Ophthalmology at [facility] [place] [address] Jami Coon MD [facility] [place] [address] Questions Social History Tobacco Use Types Packs/Day [...] on filedocumented in this encounter Care Teams House Player Relationship Specialty Start Date End Date Ky Fernandez MD [address] [place] [address] PCP - General Internal Medicine 12/26/15 01/08/21 documented as of this encounter
--- OUTSIDE RECORDS SUMMARY | 2023-11-14 01:08 | XMS_ITS | Encounter Summary ---
Author Organization [facility] Address [facility] [place] [address] Care Team Providers Care Care Program Director Name Role Phone Ky Fernandez MD Primary Care Provider + [phone] Encounter Details Date Type Department Care Team (Late st Contact Info) Description 12/19/2020 9:30 AM EDT Office Visit Ophthalmology at [facility] [place] [address] Jami Coon [place] [facility] [address] Epiretinal membrane (ERM) of left eye Social [...] eye documented in this encounter Care Teams Care Program Director Relationship Specialty Start Date End Date Ky Fernandez MD [address] [place] [address] PCP - General Internal Medicine 12/26/15 01/08/21 documented as of this encounter
--- OUTSIDE RECORDS SUMMARY | 2023-11-14 01:08 | XMS_ITS | Encounter Summary ---
Author Organization [facility] Address [facility] [place] [address] Care Team Providers Care Gem Expert Name Role Phone Ky Fernandez MD Primary Care Provider + [phone] Reason for Visit * Reason Comments Cataract Encounter Details Date Type Department Care Team (Late st Contact Info) Description 02/14/2020 1:30 PM EST Office [place] [address] Jaden Garcia MD [facility] [place] [place] [address] Combined forms of age-related cataract of both [...] Procedure Name Priority Date/Time Associated Diagnosis Comments [id number] CALC BY LASER INTERFEROMETRY - OU - BOTH EYES Routine 02/14/2020 3:20 PM EST Combined forms of age-related cataract of both eyes documented in this encounter Results * [id number] Calc By Laser Interferometry - OU - [...] Target Refraction No Value exists for the RACING CAR DRIVER: DHOPH#[id number] No Value exists for the RACING CAR DRIVER: DHOPH#[id number] ?? Axial Length 25.5 (mm) 25.66 [...] cataract documented in this encounter Care Teams Gem Expert Relationship Specialty Start Date End Date Ky Fernandez MD [address] [place] [address] PCP - General Internal Medicine 12/26/15 01/08/21 documented as of this encounter
--- OUTSIDE RECORDS SUMMARY | 2023-11-14 01:08 | XMS_ITS | Encounter Summary ---
Author Organization [facility] Address [facility] [place] [address] Care Team Providers Care Civil Transportation Engineer Name Role Phone Ky Fernandez MD Primary Care Provider + [phone] Encounter Details Date Type Department Care Team (Late st Contact Info) Description 07/06/2018 Telephone Ophthalmology [facility] [place] [id number] Erika Maddox, OD [facility] [place] [address] Social History Tobacco Use Types Packs/Day Years [...] Maddox, OD - 07/06/2018 2:58 PM EDT Volleyball Player Higinio called stating that patient had glasses [...] on filedocumented in this encounter Care Teams Civil Transportation Engineer Relationship Specialty Start Date End Date Ky Fernandez MD [address] [place] [address] PCP - General Internal Medicine 12/26/15 01/08/21 documented as of this encounter
--- OUTSIDE RECORDS SUMMARY | 2023-11-14 01:08 | XMS_ITS | Encounter Summary ---
Author Organization [facility] Address [facility] [place] [address] Care Team Providers Care Cap Inspector Name Role Phone Ky Fernandez MD Primary Care Provider + [phone] Reason for Visit * Reason Comments Post Op Encounter Details Date Type Department Care Team (Late st Contact Info) Description 06/26/2020 2:15 PM EDT Office [place] [address] [facility] [place] [address] Status post cataract extraction and insertion of [...] x daily right eye Prednisolone Acetate 1% Turney or White 4 x daily right eye [...] eye closed) Call the eye clinic at [phone] if you experience any unusual redness, pain, flashes or floaters, or vision changes. You can call this number day or night. After office hours, the case operator will connect you with the doctor communications clerk. documented in this encounter Progress Notes * [...] means documented in this encounter Care Teams Cap Inspector Relationship Specialty Start Date End Date Ky Fernandez MD [address] [place] [address] PCP - General Internal Medicine 12/26/15 01/08/21 documented as of this encounter
--- OUTSIDE RECORDS SUMMARY | 2023-11-14 01:08 | XMS_ITS | Encounter Summary ---
[place] [address] Care Team Providers Care Oyster Opener Name Role Phone Kaci Angulo APRN Primary Care Provider [phone] Encounter Details Date Type Department Care Team (Latest Contact Info) Description 10/09/2014 9:02 AM EDT - 10/09/2014 11:59 PM EDT Hospital [place] [address] CLINIC, Kaci Kline, EARL [address] [place] [address] Breast mass Discharge Disposition: Home Social History [...] tomographic guidance and direct digital imaging. ??The [employer] Affirm unit was used. ??The patient was [...] using tomographic guidance anddirect digital imaging. The [employer] Affirm unit was used. The patient was [...] breast documented in this encounter Care Teams Oyster Opener Relationship Specialty Start Date End Date Kaci Angulo APRN [address] [place] [address] PCP - General 08/01/14 12/25/15 documented as of this encounter
--- OUTSIDE RECORDS SUMMARY | 2023-11-14 01:08 | XMS_ITS | Encounter Summary ---
[place] [address] Care Team Providers Care Prompt Care Rn Name Role Phone Ky Fernandez MD Primary Care Provider + [phone] Encounter Details Date Type Department Care Team (Late st Contact Info) Description 01/06/2021 Ancillary Procedure [place] [address] Cesilia Stokes MD [address] [place] [address] Social History Tobacco Use Types Packs/Day Years [...] & Pelvis (01/06/2021 12:00 AM EDT) Narrative [facility] - 01/13/2021 9:19 AM EDT This exam is auto-finalizing. It's purpose is for storage only. Cesilia Stokes MD IM FILM LIBRARY ORD ERABLES [place], [place] documented in this encounter Visit Diagnoses Not on filedocumented in this encounter Care Teams Prompt Care Rn Relationship Specialty Start Date End Date Ky Fernandez MD [address] [place] [address] PCP - General Internal Medicine 12/26/15 01/08/21 documented as of this encounter
--- OUTSIDE RECORDS SUMMARY | 2023-11-14 01:08 | XMS_ITS | Encounter Summary ---
Author Organization [facility] Address [facility] [place] [address] Care Team Providers Care Spring Former Hand Name Role Phone Ky Fernandez MD Primary Care Provider + [phone] Encounter Details Date Type Department Care Team (Late st Contact Info) Description 05/28/2020 1:17 PM EST - 05/28/2020 1:54 PM EST Surgery Outpatient [place] [address] Jaden Garcia MD [facility] [place] [address] CATARACT EXTRACTION, EXTRACAPSULAR, W/ LENS INSERTION (WRVU [...] CATARACT surgery Dr. Salcido Section of ophthalmology [facility] [phone] - Wear either the eye shield or glasses of any kind 24 hours per day for the first week following surgery. - Your appointment tomorrow with [facility] Bring your Eye Kit to all postoperative visits. - Call you Primary Care Doctor or the Emergency Room for any non eye related medical issues. - It is normal to have a scratchy sensation or mild pain in your eye, but if you have any severe eye pain, vomiting or bleeding call [phone] and ask to speak to the ophthalmology doctor environmental services assistant. - Your eye will be red [...] 8 am - 5pm call ophthalmology : [phone] After 5pm or on a weekend or holiday: call the [facility] slitting machine operator and ask for the ophthalmology physician environmental services assistant. documented in this encounter Medications at [...] allergic reaction (Throat tight, difficulty breathing). Call [phone] as directed. clindamycin-benzoyl peroxide (BENZACLIN) 1-5 % [...] patient was questioned regarding travel outside of [place] states, fever, cough, SOB or other illness [...] again, temperature will be taken, patient and caregiver/road oiling truck driver will be given a mask to wear the entire time they are in the [facility] building. * Anna Davies RN - 05/21/2020 10:51 AM EST During this call the patient was questioned regarding travel outside of [place] states, fever, cough, SOB or other illness [...] again, temperature will be taken, patient and caregiver/road oiling truck driver will be given a mask [...] Salcido MD - 05/28/2020 2:22 PM EST [facility] Operative Note Patient [...] Rmvl Insertion Io Lens Prosth W/O Ecp ([id number]) 05/28/2020 2:16 PM EST Cataract documented in [...] RN) documented in this encounter Care Teams Spring Former Hand Relationship Specialty Start Date End Date Ky Fernandez MD [address] [place] [address] PCP - General Internal Medicine 12/26/15 01/08/21 documented as of this encounter
--- OUTSIDE RECORDS SUMMARY | 2023-11-14 01:08 | XMS_ITS | Encounter Summary ---
[place] [address] Care Team Providers Care Assembler Unit Name Role Phone Rory Obregon APRN Primary Care Provider [phone] Encounter Details Date Type Department Care Team (Late st Contact Info) Description 08/02/2014 Orders [place] [phone] Rory Obregon APRN [address] [place] [address] Social History Tobacco Use Types Packs/Day Years [...] the care of this patient. STUDIES FROM: [facility]. DATES: 07/19/2014, 07/09/2014, studies dating back to 2010. CLINICAL HISTORY: PLEASE REVIEW O/S BREAST IMAGING FROM [facility] DONE 07/19/13. LEFT BREAST ASYMMETRIC DENSITY OR ARCHITECTURAL DISTORTION. CAT #3. QUESTION MORE IMAGING? QUESTION BX? PLEASE CALL THE PATIENT [phone](c). PATIENT WANTS TREATMENT AT [facility]. . ? VIEWS OBTAINED: Left CC and [...] alter the careof this patient. STUDIES FROM: [facility]. DATES: 07/19/2014, 07/09/2014, studies dating back to 2010. CLINICAL HISTORY: PLEASE REVIEW O/S BREAST IMAGING FROM [facility]OS[facility] DONE 07/19/13. LEFT BREAST ASYMMETRIC DENSITY OR ARCHITECTURAL DISTORTION.CAT #3. QUESTION MORE IMAGING? QUESTION BX? PLEASE CALL THE [phone](c). PATIENT WANTS TREATMENT AT [facility]. . VIEWS OBTAINED: Left CC and MLO [...] on filedocumented in this encounter Care Teams Assembler Unit Relationship Specialty Start Date End Date Rory Obregon APRN [address] [place] [address] PCP - General 08/01/14 12/25/15 documented as of this encounter
--- OUTSIDE RECORDS SUMMARY | 2023-11-14 01:08 | XMS_ITS | Encounter Summary ---
Author Organization [facility] Address [facility] [place] [address] Care Team Providers Care Home Care Assistant Name Role Phone Ky Fernandez MD Primary Care Provider [phone] Reason for Visit * Reason Comments Epiretinal Membrane Encounter Details Date Type Department Care Team (Late st Contact Info) Description 02/28/2020 1:15 PM EST Office Visit Ophthalmology at [facility] [place] [address] Jami Coon MD [facility] [place] [address] Epiretinal membrane (ERM) of left eye Social [...] eye documented in this encounter Care Teams Home Care Assistant Relationship Specialty Start Date End Date Ky Fernandez MD [address] [place] [address] PCP - General Internal Medicine 12/26/15 01/08/21 documented as of this encounter
--- OUTSIDE RECORDS SUMMARY | 2023-11-14 01:08 | XMS_ITS | Encounter Summary ---
Author Organization [facility] Address [facility] [place] [address] Care Team Providers Care Final Tester Name Role Phone Kaci Angulo ENGINEERING PATTERNMAKER Primary Care Provider [phone] Encounter Details Date Type Department Care Team (Late st Contact Info) Description 08/26/2014 Orders [place] [address] Ky Mcintosh MD [facility] [place] [address] Abnormal mammogram, unspecified Social History Tobacco Use [...] medial. ??Tomographic imaging was performed ?? COMPARISONS: [id number] BREAST DENSITY: There are scattered areas of [...] lateral and medial. Tomographicimaging was performed COMPARISONS: [id number] BREAST DENSITY: There are scattered areas of [...] medial. ??Tomographic imaging was performed ?? COMPARISONS: [id number] BREAST DENSITY: There are scattered areas of [...] lateral and medial. Tomographicimaging was performed COMPARISONS: [phone] BREAST DENSITY: There are scattered areas of [...] unspecified documented in this encounter Care Teams Final Tester Relationship Specialty Start Date End Date Kaci Angulo APRN [address] [place] [address] PCP - General 08/01/14 12/25/15 documented as of this encounter
--- OUTSIDE RECORDS SUMMARY | 2023-11-14 01:08 | XMS_ITS | Encounter Summary ---
Author Organization [facility] Address [facility] [place] [address] Care Team Providers Care Americanization Teacher Name Role Phone Ky Fernandez MD Primary Care Provider [phone] Reason for Visit * Reason Comments Blurred Vision Eye Exam Cataract Encounter Details Date Type Department Care Team (Late st Contact Info) Description 03/30/2018 1:30 PM EST Office Visit Ophthalmology at [facility] [place] [address] Erika Maddox, OD [facility] [place] [address] Epiretinal membrane (ERM) of left eye; Macular [...] to establish eye care at [facility] today. Reviewed COCO notes from Dr. Bob at [facility] exam 04/13/2017 with cataracts OU, macular [...] Final Rx Eyeglass Final Rx Sphere Cylinder [place] Add Right -3.50 +1.50 110 +2.50 Left [...] centrally with ERM Erika Maddox OD OPHTHALMOLOGY [facility] ORDERABLES * OCT [id number] EYES (03/30/2018 2:52 PM EST) Anatomical Region Laterality Modality Other Narrative 03/30/2018 2:52 PM EST OCT MACULA OD: Normal foveal contour; all layers intact without disruption OS: Inner-lamellar hole appearance with small cystic changes secondary to central ERM; outer retinal layers intact; no SRF/IRF Erika Maddox OD OPHTHALMOLOGY [facility] ORDERABLES documented in this encounter Visit Diagnoses Diagnosis Epiretinal membrane (ERM) of left eye Macular cyst, hole, or pseudohole, left eye Combined forms of age-related cataract of both eyes Other and combined forms of senile cataract Myopia of both eyes with astigmatism and presbyopia Choroidal nevus, right eye Benign neoplasm of choroid documented in this encounter Care Teams Americanization Teacher Relationship Specialty Start Date End Date Ky Fernandez MD [address] [place] [address] PCP - General Internal Medicine 12/26/15 01/08/21 documented as of this encounter
--- OUTSIDE RECORDS SUMMARY | 2023-11-14 01:09 | XMS_ITS | Encounter Summary ---
Author Organization [facility] Address [facility] [place] [address] Care Team Providers Care Fuel Cell Builder Name Role Phone Kaci Angulo DATE NIGHT CAREGIVER Primary Care Provider [phone] Encounter Details Date Type Department Care Team (Late st Contact Info) Description 02/08/2013 [place] [address] Kaela Ashley MD [facility] [place] [address] Social History Tobacco Use Types Packs/Day Years [...] is a Non-reportable exam Kaela Ashley MD [facility] FILM LIBRARY ORD ERABLES documented in this encounter Visit Diagnoses Not on filedocumented in this encounter Care Teams Fuel Cell Builder Relationship Specialty Start Date End Date Kaci Angulo APRN [address] [place] [address] PCP - General 08/01/14 12/25/15 documented as of this encounter
--- OUTSIDE RECORDS SUMMARY | 2023-11-14 01:09 | XMS_ITS | Encounter Summary ---
Author Organization [facility] Address [facility] [place] [address] Care Team Providers Care Director Of Medical Staff Services Name Role Phone Kaci Angulo MORTGAGE LOAN PROCESSOR Primary Care Provider [phone] Encounter Details Date Type Department Care Team (Late st Contact Info) Description 03/30/2011 [place] [address] Kaela Ashley MD [facility] DIAGNOSTIC [place] [address] Social History Tobacco Use Types Packs/Day Years [...] is a Non-reportable exam Kaela Ashley MD [facility] FILM LIBRARY ORD ERABLES documented in this encounter Visit Diagnoses Not on filedocumented in this encounter Care Teams Director Of Medical Staff Services Relationship Specialty Start Date End Date Kaci Angulo APRN [address] [place] [address] PCP - General 08/01/14 12/25/15 documented as of this encounter
--- OUTSIDE RECORDS SUMMARY | 2023-11-14 01:09 | XMS_ITS | Encounter Summary ---
Author Organization [facility] [place] [address] Care Team Providers Care Lining Stamper Name Role Phone Kaci Angulo APRN Primary Care Provider [phone] Encounter Details Date Type Department Care Team (Latest Contact Info) Description 08/02/2014 4:25 PM EDT - 08/02/2014 11:59 PM EDT Hospital Encounter XRay at [address] [place] [address] CLINIC, Kaci Kline APRN [address] [place] [address] Discharge Disposition: Home Social History Tobacco Use [...] on filedocumented in this encounter Care Teams Lining Stamper Relationship Specialty Start Date End Date Kaci Angulo APRN [address] [place] [address] PCP - General 08/01/14 12/25/15 documented as of this encounter
--- OUTSIDE RECORDS SUMMARY | 2023-11-14 01:09 | XMS_ITS | Encounter Summary ---
Author Organization [facility] Address [facility] [address] Care Team Providers Care Marketing Content Manager Name Role Phone Kaci Angulo ROOF BOLTING COAL MINER Primary Care Provider [phone] Encounter Details Date Type Department Care Team (Late st Contact Info) Description 04/10/2010 [place] [address] Kaela Ashley MD [facility] [place]ST[place] [address] Social History Tobacco Use Types Packs/Day Years [...] is a Non-reportable exam Kaela Ashley MD [facility] FILM LIBRARY ORD ERABLES documented in this encounter Visit Diagnoses Not on filedocumented in this encounter Care Teams Marketing Content Manager Relationship Specialty Start Date End Date Kaci Angulo APRN [address] [place] [address] PCP - General 08/01/14 12/25/15 documented as of this encounter
--- OUTSIDE RECORDS SUMMARY | 2023-11-14 01:09 | XMS_ITS | Encounter Summary ---
Author Organization [facility] Address [address] [place] [address] Care Team Providers Care Broom Stitcher Name Role Phone Kaci Angulo APRN Primary Care Provider [phone] Encounter Details Date Type Department Care Team ([facility] st Contact Info) Description 07/31/2018 Results Only [facility] [phone] Toi Vu MD [address] [place] [address] [place] [address] Social History Tobacco Use Types Packs/Day Years [...] ? GIANNA DOBSON ? Accession #: ? [id number] ? : ? 1945 (Age: 72) ??F [...] (ASCP) 08/01/2018 8:15 AM End of Report [facility] 07/31/2018 21:3 6 EDT 07/31/2018 21:36 EDT Toi Vu MD PATHOLOGY ORDERA [facility] [address] [place] [address] documented in this encounter Visit Diagnoses Not on filedocumented in this encounter Care Teams Broom Stitcher Relationship Specialty Start Date End Date Kaci Angulo APRN [address] [place] [address] PCP - General 02/04/17 08/01/18 documented as of this encounter
--- OUTSIDE RECORDS SUMMARY | 2023-11-14 01:09 | XMS_ITS | Clinical Summary ---
Author Organization [facility] [place] [address] Care Team Providers Care Chemical Strength Tester Name Role Phone Clement Dewitt.D. Unavailable U navailable Advice, Cc Adult Unavailable Unavailable Md Carmen Talavera Unavailable [facility] Staff, Support Unavailable Unavailable Md Earl Talavera M.D. Unavailable Md Radha Chong Unavailable Unavailable Md Dany Sparks M.D. Unavailable Unavaila ble Provider, Starter Unavailable Unavailable Md Rui Hines M.D. Unavailable Unavaila ble Md Maxine Zamora Unavailable Unavailable Jose TorresPFrankyCFranky Unavailable [phone] Md Jono Olivo M.D. Unavailable Unava ilable Kerri, Administrative Support Clerk Marina Senia C.N.SFranky Unavailable U navailable Md Bruno Gray M.D. Primary Care Provider Source Comments NOTE: The information displayed by Care Everywhere is extracted from the complete medical record and may not identify all current or past patient conditions.[facility] Allergies Active Allergy Reactions Criticality Noted [...] Immunizations Name Administration Dates Next Due INF [id number] standard dose (I nfluenza [id number]). 03/25/2009 INFs (Influenza split virus ). 8,01/30/1997,01/14/1996, [...] 01/01/2013, 01/24/2012, Additional history exists Care Teams Chemical Strength Tester Relationship Specialty Start Date End Date Md Bruno Gray M.D. Internal Medicine Health Care Team [address] [facility], [place] [address] PCP - General 03/17/09 Esdras, Pharmd Ailyn, PHARM.D. 03/06/09 Advice, Cc Adult 03/06/09 Md Carmen Talavera 03/06/09 Staff, Support 03/06/09 Md Earl Talavera M.D. Department of Dermatology [address] [place] [id number] 03/06/09 Md Radha Chong 03/06/09 Md Dany Sparks M.D. 03/06/09 Provider, [place] [address] 03/06/09 Md Rui Hines M.D. 03/06/09 Md Maxine Zamora 03/06/09 Jose Torres L.P.CFranky 03/06/09 Md Jono Olivo M.D. 03/06/09 Eleazar Manning C.N.S. 03/06/09
--- OUTSIDE RECORDS SUMMARY | 2023-11-14 01:09 | XMS_ITS | Encounter Summary ---
Author Organization [facility] Address [address] [place] [address] Care Team Providers Care Sap Fico Architect Name Role Phone Ky Fernandez MD Primary Care Provider [phone] Encounter Details Date Type Department Care Team ([facility] st Contact Info) Description 07/16/2020 Lab Requisition [facility] Pathology & Laboratory Medicine - [address] [address] Ky Fernandez MD [address] [place] [address] Encounter for other general examination Social History [...] keratosis, irritated and inflamed. 07/17/2020 13:15 EDT [facility] Attestation By the signature below, the attending physician certifies that they have 1) personally conducted a gross and/or microscopic examination of the described specimen(s), and/or personally interpreted the results of laboratory testing of the described specimen(s), and 2) personally rendered or confirmed the above diagnosis. 07/17/2020 13:15 [facility] at 1315 Clinical History R shoulder lesion; basal cell vs squamous cell vs atypical seborrheic keratosis 07/17/2020 13:15 [facility] Gross Description A. Received in [...] A2. PATTIE GRANDE(ASCP) 07/16/2020 16:19 07/17/2020 13:15 [facility] Performing Lab [facility] 07/17/2020 13:15 [facility] Scanned Images 07/17/2020 13:15 [facility] Tissue TISSUE SPECIMEN FROM SKIN / Unknown 07/15/2020 16:00 EDT 07/16/2020 15:40 EDT Ky Fernandez MD PATHOLOGY ORDERABLES [facility] [address] [place] [address] documented in this encounter Visit Diagnoses Diagnosis Encounter for other general examination documented in this encounter Care Teams Sap Fico Architect Relationship Specialty Start Date End Date Ky Fernandez MD [address] [place], [place] [address] PCP - General 08/02/18 documented as of this encounter
--- OUTSIDE RECORDS SUMMARY | 2023-11-14 01:09 | XMS_ITS | Clinical Summary ---
Author Organization [facility] Address [address] [place] [address] Care Team Providers Care Continuous Crusher Operator Name Role Phone Ky Fernandez MD Primary Care Provider [phone] Social History Tobacco Use Types Packs/Day Years [...] COVID-19 Vaccine ( season) 2022 Care Teams Continuous Crusher Operator Relationship Specialty Start Date End Date Ky Fernandez MD [address] [place] [address] PCP - General 08/02/18
--- OUTSIDE RECORDS SUMMARY | 2023-11-14 01:09 | XMS_ITS | Encounter Summary ---
Author Organization [facility] Address [address] [place] [address] Care Team Providers Care Clinical Documentation Consultant Name Role Phone Kaci Angulo APRN Primary Care Provider [phone] Encounter Details Date Type Department Care Team (Latest Contact Info) Description 07/31/2018 9:39 EDT - 07/31/2018 23:59 EDT Hospital Encounter [address] [address] Unknown, Provider, Discharge Disposition: Home or Self Care Social History Tobacco Use Types Packs/Day Years Used Date Smoking Tobacco: Never Assessed Sex and Gender Information Value Date Recorded Sex Assigned at Not on file Gender Identity Not on file Sexual Orientation Not on file documented as of this encounter Discharge Disposition Disposition Code Departure Means Destination Home or Self [facility] documented in this encounter Plan of Treatment Not on file documented as of this encounter Visit Diagnoses Not on filedocumented in this encounter Care Teams Clinical Documentation Consultant Relationship Specialty Start Date End Date Kaci Angulo APRN [address] [place] [address] PCP - General 02/04/17 08/01/18 documented as of this encounter
--- OUTSIDE RECORDS SUMMARY | 2023-11-14 01:09 | XMS_ITS | Encounter Summary ---
Author Organization [facility] Address [address] [place] [address] Care Team Providers Care Leather Scrubber Name Role Phone Ky Fernandez MD Primary Care Provider [phone] Encounter Details Date Type Department Care Team ([facility] Contact Info) Description 05/16/2019 Lab Requisition [facility] [place] [facility] - [address] [address] Unknown, Provider, Social History Tobacco Use Types [...] 6.3 - 8.2 g/dL 05/17/2019 12:23 EST [facility] Albumin % 66.0 55.8 - 66.1 % 05/17/2019 12:23 EST [facility] Alpha-1 % 3.4 2.9 - 4.9 % 05/17/2019 12:23 EST [facility] Alpha-2 % 8.2 7.1 - 11.8 % 05/17/2019 12:23 EST [facility] Beta % 11.5 8.4 - 13.1 % 05/17/2019 12:23 EST [facility] Gamma % 10.9(L) 11.1 - 18.8 % 05/17/2019 12:23 EST [facility] SPEP Comment No apparent monoclonal protein seen on serum electrophoresis 05/17/2019 12:23 EST [facility] Comment:See scanned/suppleme ntary report. Blood VENOUS BLOOD / Unknown 05/15/2019 10:20 EST 05/16/2019 15:41 EST Provider Unknown CHEMISTRY & BLOOD GA S ORDERABLES Performing Organization Address City/State/[facility] Co de Phone Number [facility] [address] [place] [address] documented in this encounter Visit Diagnoses Not on filedocumented in this encounter Care Teams Leather Scrubber Relationship Specialty Start Date End Date Ky Fernandez MD [address] [place] [address] PCP - General 08/02/18 documented as of this encounter
--- OUTSIDE RECORDS SUMMARY | 2023-11-14 01:09 | XMS_ITS | Encounter Summary ---
Author Organization [facility] Address [facility] [place] [address] Care Team Providers Care Computer Drafter Name Role Phone Kaci Angulo CLEAT FEEDER Primary Care Provider [phone] Encounter Details Date Type Department Care Team (Late st Contact Info) Description 07/19/2014 [place] [id number] Kaela Ashley MD [facility] [place] [address] Social History Tobacco Use Types Packs/Day Years [...] is a Non-reportable exam Kaela Ashley MD [facility] [place] [facility]M [facility]RARY ORD ERABLES documented in this encounter Visit Diagnoses Not on filedocumented in this encounter Care Teams Computer Drafter Relationship Specialty Start Date End Date Kaci Angulo APRN [address] [place] [address] PCP - General 08/01/14 12/25/15 documented as of this encounter
--- OUTSIDE RECORDS SUMMARY | 2023-11-14 01:09 | XMS_ITS | Referral Summary ---
Author Organization [facility] Address [address] [place] [address] Care Team Providers Care Sustainable Agriculture Faculty Name Role Phone Ky Fernandez MD Primary Care Provider [phone] Social History Tobacco Use Types Packs/Day Years Used Date Smoking Tobacco: Never Assessed Interpersonal Safety Answer Date Record ed Physically Hurt Never 10/29/2019 Verbally Threaten Not on file 10/29/2019 Sex and Gender Information Value Date Recorded Sex Assigned at Not on file Gender Identity Not on file Sexual Orientation Not on file Plan of Treatment Not on file Care Teams Sustainable Agriculture Faculty Relationship Specialty Start Date End Date Ky Fernandez MD [address] [place] [address] PCP - General 08/02/18
== END 2023-11-13 23:30 | disposition home or self-care (01) ==
LOC: ER 11-14 00:59
PROVIDERS: Emergency Provider Student in an Organized Health Care Education/Training Program; PCP Family Medicine
DX: T43.591A Poisoning by other antipsychotics and neuroleptics, accidental (unintentional), initial encounter (principal)
CPT/HCPCS: 99282; 99283